=== PATIENT | female | born 1955 | race Caucasian/White ===

== ENCOUNTER 2016-12-28 23:33 | Emergency (ER) | payer OTHER ==
[~2016-12-28] VITALS: Ht 165.1 cm; Wt 63.5 kg
[2016-12-28] MEDS ORDERED: ATORVASTATIN CA40 MG PO (23:56)
[2016-12-28] MEDS ORDERED: OXYBUTYNIN CHLOR5 MG PO (23:56)
[2016-12-28] MEDS ORDERED: PROPRANOLOL HCL80 M1 PO (23:57)
[2016-12-28] MEDS ORDERED: BUPROPION HCL150 MG PO (23:58)
[2016-12-28] MEDS ORDERED: INCRUSE ELLI62.5 MCG INH (23:58)
[2016-12-28] MEDS ORDERED: VENTOLIN HFA18 GM INH (23:59)
[2016-12-28] MEDS ORDERED: ASPIR-LOW81 MG PO (23:59)
--- NOTE | 2016-12-29 22:43 | EKG ---
[facility] [address] [facility] [place] [address] Signed Normal sinus rhythm Normal ECG No previous ECGs available Confirmed by ANDREE VERAS MD ([id number]) on 12/29/2016 10:43:22 PM Electronically Signed By: ANDREE VERAS MD 12/29/16 2243 PATIENT NAME: DANYEL NARANJO Electrocardiogram DATE OF : 51 PHYSICIAN: ANDREE VERAS MD REPORT #: [id number] REPORT IS CONFIDENTIAL AND NOT TO BE RELEASED WITHOUT AUTHORIZATION
== END 2016-12-29 02:59 | disposition home or self-care (01) ==
LOC: ED 23:33
DX: R07.2 Precordial pain (principal); J44.9 Chronic obstructive pulmonary disease, unspecified; F17.200 Nicotine dependence, unspecified, uncomplicated; Z90.49 Acquired absence of other specified parts of digestive tract; Z90.710 Acquired absence of both cervix and uterus; Z79.899 Other long term (current) drug therapy; Z79.82 Long term (current) use of aspirin
CPT/HCPCS: 71010; 80053; 84484; 85025; 93005; 93010; 99284

== ENCOUNTER 2017-01-07 18:00 | Emergency (ER) | payer OTHER ==
[~2017-01-07] VITALS: Ht 165.1 cm; Wt 63.5 kg
[~2017-01-07 18:00] MED LIST: ASPIR-LOW81 MG PO; ATORVASTATIN CA40 MG PO; BUPROPION HCL150 MG PO; INCRUSE ELLI62.5 MCG INH; OXYBUTYNIN CHLOR5 MG PO; PROPRANOLOL HCL80 M1 PO; VENTOLIN HFA18 GM INH
[2017-01-07] MEDS ORDERED: OMEPRAZOLE20 MG PO (21:28)
--- NOTE | 2017-01-07 22:55 | EKG ---
[facility] [address] [facility] [place], [place] [address] Signed Normal sinus rhythm Normal ECG Confirmed by ANDREE VERAS MD ([id number]) on 01/07/2017 10:55:29 PM Electronically Signed By: ANDREE VERAS MD 01/07/17 2255 PATIENT NAME: DANYEL NARANJO Electrocardiogram DATE OF : 51 PHYSICIAN: ANDREE VERAS MD REPORT #: [id number] REPORT IS CONFIDENTIAL AND NOT TO BE RELEASED WITHOUT AUTHORIZATION
== END 2017-01-07 21:43 | disposition home or self-care (01) ==
LOC: ED 18:00
DX: R07.2 Precordial pain (principal); J44.9 Chronic obstructive pulmonary disease, unspecified; F17.200 Nicotine dependence, unspecified, uncomplicated; Z90.49 Acquired absence of other specified parts of digestive tract; Z90.710 Acquired absence of both cervix and uterus; Z88.0 Allergy status to penicillin; Z79.82 Long term (current) use of aspirin; Z79.899 Other long term (current) drug therapy
CPT/HCPCS: 71010; 80053; 84484; 85025; 85379; 93005; 93010; 96374; 96375; 99284; J2270; J2405

== ENCOUNTER 2017-05-07 19:29 | Emergency (ER) | payer OTHER ==
[~2017-05-07 19:29] MED LIST changes: -ASPIR-LOW81 MG PO; +ASPIRIN81 MG PO; +OMEPRAZOLE20 MG PO
[2017-05-07] MEDS ORDERED: OXYBUTYNIN CHLOR5 MG PO (20:02)
[2017-05-07] MEDS ORDERED: LIPITOR40 MG PO (20:03)
[2017-05-07] MEDS ORDERED: PROPRANOLOL HCL80 M1 PO (20:04)
[2017-05-07] MEDS ORDERED: NITROGLYCERIN0.4 MG SL (20:05)
[2017-05-07] MEDS ORDERED: WELLBUTRIN SR150 MG PO (20:06)
[2017-05-07] MEDS ORDERED: TAB-A-VITE1 EACH PO (20:06)
[2017-05-07] MEDS ORDERED: INCRUSE ELLI62.5 MCG (20:07)
--- NOTE | 2017-05-08 14:07 | EKG ---
[facility] [address] [facility] [place], [place] [address] Signed Sinus rhythm with 1st degree AV block Left axis deviation Nonspecific ST and T wave abnormality Abnormal ECG No previous ECGs available Confirmed by ANDREE VERAS MD ([id number]) on 05/08/2017 2:07:27 PM Electronically Signed By: ANDREE VERAS MD 05/08/17 1407 PATIENT NAME: DANYEL NARANJO AURA Electrocardiogram DATE OF : 51 PHYSICIAN: ANDREE VERAS MD REPORT #: [id number] REPORT IS CONFIDENTIAL AND NOT TO BE RELEASED WITHOUT AUTHORIZATION
--- NOTE | 2017-05-08 14:08 | EKG ---
[facility] [address] [facility] [place], [place] [address] Signed Sinus rhythm with 1st degree AV block Possible Left atrial enlargement Left axis deviation Abnormal ECG When compared with ECG of 07-MAY-2017 19:37, (Unconfirmed) No significant change was found Confirmed by ANDREE VERAS MD ([id number]) on 05/08/2017 2:08:45 PM Electronically Signed By: ANDREE VERAS MD 05/08/17 1408 PATIENT NAME: DANYEL NARANJO Electrocardiogram DATE OF : 51 PHYSICIAN: ANDREE VERAS MD REPORT #: [id number] REPORT IS CONFIDENTIAL AND NOT TO BE RELEASED WITHOUT AUTHORIZATION
== END 2017-05-07 23:12 | disposition short-term general hospital (02) ==
LOC: ED 19:29 → EDBD 19:30 → ED 19:30
PROC: 0T9B70Z Drainage of Bladder with Drainage Device, Via Natural or Artificial Opening (ICD-10-PCS; principal; 2017-05-07)
DX: R09.2 Respiratory arrest (principal); R07.9 Chest pain, unspecified; R79.89 Other specified abnormal findings of blood chemistry; J44.9 Chronic obstructive pulmonary disease, unspecified; Z88.0 Allergy status to penicillin; Z88.1 Allergy status to other antibiotic agents; Z88.8 Allergy status to other drugs, medicaments and biological substances; Z79.899 Other long term (current) drug therapy
CPT/HCPCS: 36600; 51702; 70450; 71045; 71260; 80053; 81001; 82803; 83605; 83880; 84484; 85025; 87040; 93005; 93010; 94002; 94644; 96374; 96375; 99291; J2250; J2704; J3010; J7030; Q9967

== ENCOUNTER 2017-07-12 16:08 | Emergency (ER) | payer OTHER ==
[~2017-07-12] VITALS: Ht 157.5 cm; Wt 60.3 kg
[~2017-07-12 16:08] MED LIST changes: +INCRUSE ELLI62.5 MCG; +LIPITOR40 MG PO; +NITROGLYCERIN0.4 MG SL; +TAB-A-VITE1 EACH PO; +WELLBUTRIN SR150 MG PO
--- OUTSIDE RECORDS SUMMARY | 2017-07-12 16:50 | XMS | Encounter Summary ---
Demographics + + + | Address | [address] | | | [place] [address] | + + + | Home Phone | | + + + | Preferred Language | Unknown | + + + | Marital Status | Single | + + + | Spiritism Affiliation | Unknown | + + + | Race | Unknown | + + + | Ethnic Group | Unknown | + + + Author + + + | Author | [facility] | + + + | Organization | [facility] | + + + | Address | Unknown | + + + | Phone | Unavailable | + + + Support + + +---------+ + | Name | Relationship | Address | Phone | + + +---------+ + | Joseluis Desai | ECON | Unknown | | + + +---------+ + Care Team Providers + +------+ + | Care Airport Clerk Name | Role | Phone | + +------+ + | Bry Vaughn DO | PCP | | + +------+ + Reason for Visit +--------+ + | Reason | Comments | +--------+ + | Other | [facility] | +--------+ + Encounter Details +--------+ + + + + | Date | Type | Department | Care Team | Description | +--------+ + + + + | 04/21/ | Documentati | [facility] | [facility] | Other ([facility] | | 2018 | on Only | Cardiology Renny Zamora CMA | Records) | | | | [address] | | | | | | [place] | | | | | | [address] | | | | | | [phone] | | | +--------+ + + + + Social History + +-------+ +--------+------+ | Tobacco Use | Types | Packs/Day | Years | Date | | | | | Used | | + +-------+ +--------+------+ | Former Smoker | | | | | + +-------+ +--------+------+ + +---+---+---+ | Smokeless Tobacco: | | | | | Never Used | | | | + +---+---+---+ + + +---------+ + | Alcohol Use | Drinks/We | oz/Week | Comments | | | ek | | | + + +---------+ + | No | | | past | + + +---------+ + + + + | Sex Assigned at | Date Recorded | | | | + + + | Not on file | | + + + as of this encounter Plan of Treatment Not on fileas of this encounter Visit Diagnoses Not on filein this encounter"
--- OUTSIDE RECORDS SUMMARY | 2017-07-12 16:50 | XMS | Clinical Summary ---
Demographics + + + | Address | [address] | | | [place] [address] | + + + | Home Phone | | + + + | Preferred Language | Unknown | + + + | Marital Status | Single | + + + | Sabianism Affiliation | Unknown | + + + | Race | Unknown | + + + | Ethnic Group | Unknown | + + + Author + + + | Author | [facility] | + + + | Organization | [facility] | + + + | Address | Unknown | + + + | Phone | Unavailable | + + + Support + + +---------+ + | Name | Relationship | Address | Phone | + + +---------+ + | Joseluis Desai | ECON | Unknown | | + + +---------+ + Care Team Providers + +------+ + | Care Catalytic Converter Operator Name | Role | Phone | + +------+ + | Bry Vaughn DO | PP | | + +------+ + Allergies + + + + + + | Active Allergy | Reactions | Severity | Noted | Comments | | | | | Date | | + + + + + + | Amoxicillin | Itching | Medium | 04/19/19 | | | | | | 18 | | + + + + + + | Cephalexin | Itching | Medium | 04/19/19 | | | | | | 18 | | + + + + + + | Hydroxyzine Hcl | Itching | Medium | 04/19/19 | | | | | | 18 | | + + + + + + | Penicillins | Itching | Medium | 04/19/19 | | | | | | 18 | | + + + + + + | Ranitidine | Itching | Medium | 04/19/19 | | | | | | 18 | | + + + + + + Current Medications + + +-------+---------+------+------+-------+ | Prescription | Sig. | Disp. | Refills | Star | End | Statu | | | | | | t | Date | s | | | | | | Date | | | + + +-------+---------+------+------+-------+ | propranolol | Take 80 mg by mouth | | | | | Activ | | (INDERAL) 80 MG | daily. | | | | | e | | tablet | | | | | | | + + +-------+---------+------+------+-------+ | Multiple | Take 1 tablet by | | | | | Activ | | Vitamins-Minerals | mouth daily. | | | | | e | | (MULTIVITAMIN WITH | | | | | | | | MINERALS) tablet | | | | | | | + + +-------+---------+------+------+-------+ | nitroGLYCERIN | Place 0.4 mg under | | | | | Activ | | (NITROSTAT) 0.4 MG | the tongue every 5 | | | | | e | | SL tablet | (five) minutes as | | | | | | | | needed for Chest | | | | | | | | pain. | | | | | | + + +-------+---------+------+------+-------+ | albuterol | Inhale 2 puffs into | | | | | Activ | | (PROVENTIL | the lungs every 4 | | | | | e | | HFA;VENTOLIN HFA) | (four) hours as | | | | | | | 108 (90 Base) | needed for Wheezing. | | | | | | | MCG/ACT inhaler | | | | | | | + + +-------+---------+------+------+-------+ | Umeclidinium | Inhale into the | | | | | Activ | | [place] (INCRUSE | lungs. | | | | | e | | ELLIPTA IN) | | | | | | | + + +-------+---------+------+------+-------+ | buPROPion (ZYBAN) | Take 150 mg by mouth | | | | | Activ | | 150 MG 12 hr tablet | 2 (two) times | | | | | e | | | daily. | | | | | | + + +-------+---------+------+------+-------+ | atorvastatin | Take 40 mg by mouth | | | | | Activ | | (LIPITOR) 40 MG | nightly. | | | | | e | | tablet | | | | | | | + + +-------+---------+------+------+-------+ | oxybutynin | Take 5 mg by mouth 2 | | | | | Activ | | (DITROPAN) 5 MG | (two) times daily. | | | | | e | | tablet | | | | | | | + + +-------+---------+------+------+-------+ | omeprazole | Take 20 mg by mouth | | | | | Activ | | (PRILOSEC) 20 MG | every morning before | | | | | e | | capsule | breakfast. | | | | | | + + +-------+---------+------+------+-------+ Active Problems + + + | Problem | Noted Date | + + + | Precordial pain | 04/19/2017 | + + + | Major depressive disorder, recurrent episode, moderate with | 06/19/2015 | | anxious distress (HCC) | | + + + + + | Overview: Last Assessment & Plan: | | Improved with wellbutrin. Refill sent to pharmacy. | + + + + + | COPD (chronic obstructive pulmonary disease) ([facility]) | 10/22/2013 | + + + + + | Overview: Last Assessment & Plan: SpO2 95% RA. Lungs tight | | and wheezy. Taking advair and albuterol as prescribed. No changes | | today. Return to clinic PRN. | + + Resolved Problems +---------+ + + | Problem | Noted | Resolved | | | Date | Date | +---------+ + + | Smoker | 03/01/20 | | | | 13 | 8 | +---------+ + + + + | Overview: Last Assessment & Plan: Patient quit smoking; | | motivated to continue to be tobacco free. Decreased cravings with | | wellbutrin; refill sent to pharmacy. Patient declines nicotine | | patch, gum at this time. | + + Encounters +--------+ + + + + | Date | Type | Specialty | Care Team | Description | +--------+ + + + + | 04/21/ | Documentati | | [facility] | Other ([facility] | | 2018 | on Only | | [facility] | Records) | +--------+ + + + + | 04/19/ | Initial | | Aaron Zimmerman, | Precordial pain | | 2018 | consult | | MD | | +--------+ + + + + from Last 3 Months Family History + + +------+ + | Medical History | Relation | Name | Comments | + + +------+ + | Cancer | Mother | | | + + +------+ + + +------+ + + | Relation | Name | Status | Comments | + +------+ + + | Father | | | | | | | (Age | | | | | 52) | | + +------+ + + | Mother | | | uterine cancer | | | | (Age | | | | | 87) | | + +------+ + + Social History + +-------+ +--------+------+ [...] on file | | + + + Last Filed Vital Signs + + + + | Vital Sign | Reading | Time Taken | + + + + | Blood Pressure | 126/74 | 04/19/2017 1:33 PM PST | + + + + | Pulse | 65 | 04/19/2017 1:33 PM PST | + + + + | Temperature | - | - | + + + + | Respiratory Rate | - | - | + + + + | Oxygen Saturation | 98% | 04/19/2017 1:33 PM PST | + + + + | Inhaled Oxygen | - | - | | Concentration | | | + + + + | Weight | 63.8 kg (140 lb 9.6 | 04/19/2017 1:33 PM PST | | | oz) | | + + + + | Height | 165.1 cm (5' 5") | 04/19/2017 1:33 PM PST | + + + + | Body Mass Index | 23.4 | 04/19/2017 1:33 PM PST | + + + + Plan of Treatment + + + + + | Health Maintenance | Due Date | Last Done | Comments | + + + + + | Cervical Cancer | | | | | Screening (Pap) | 5 | | | + + + + + | Breast Cancer | | | | | Screening | 4 | | | | (Mammogram) | | | | + + + + + | Colon Cancer | | | | | Screening | 4 | | | | (Colonoscopy) | | | | + + + + + | Vaccine: Influenza | | 11/19/2015, 10/30/2014 | | | (Season Ended) | 8 | | | + + + + + | Vaccine: | | 07/12/2016 | | | Dtap/Tdap/Td (2 - | 7 | | | | Td) | | | | + + + + + | Vaccine: | Completed | 12/26/2013 | | | Pneumococcal 19-64 | | | | | (PPSV23 only) Medium | | | | | Risk | | | | + + + + + Results Not on filefrom Last 3 Months Insurance + +--------+ +------+-------+ + | Payer | Benefi | Subscriber | Type | Phone | Address | | | t Plan | ID | | | | | | / | | | | | | | Group | | | | | + +--------+ +------+-------+ + | MEDICAID | [employer] | xxxxxxxx | | | [address] | | | N | | | | [place] | | | [place] | | | | [phone] | | | [employer] | | | | | + +--------+ +------+-------+ + + +--------+ +--------+ + + | Guarantor Name | Accoun | Relation to | Date | Phone | Billing Address | | | t Type | Patient | of | | | | | | | | | | + +--------+ +--------+ + + | AMY NARANJO I | Person | Self [birth year] | Home: | [address] | | | al/Fam | | [phone] | [phone] [place] | | | [place] | | | [phone] | [phone] | + +--------+ +--------+ + +
--- OUTSIDE RECORDS SUMMARY | 2017-07-12 16:50 | XMS | Encounter Summary ---
Demographics + + + | Address | [address] | | | [place] [address] | + + + | Home Phone | | + + + | Preferred Language | Unknown | + + + | Marital Status | Single | + + + | Mormonism Affiliation | Unknown | + + + | Race | Unknown | + + + | Ethnic Group | Unknown | + + + Author + + + | Author | [facility] | + + + | Organization | [facility] | + + + | Address | Unknown | + + + | Phone | Unavailable | + + + Support + + +---------+ + | Name | Relationship | Address | Phone | + + +---------+ + | Joseluis Desai | ECON | Unknown | | + + +---------+ + Care Team Providers + +------+ + | Care Ice House Supervisor Name | Role | Phone | + +------+ + | Bry Vaughn DO | PCP | | + +------+ + Reason for Visit + + + | Reason | Comments | + + + | Establish Care | Chest Pain | + + + Consultation (Routine) + +--------+ + + + + | Status | Reason | Specialty | Diagnoses / | Referred By | Referred To | | | | | Procedures | Contact | Contact | + +--------+ + + + + | Authorized | | Cardiology | Diagnoses | Roderick, | Elsie, | | | | | Precordial | DO Bry | MD Aaron | | | | | pain | [address] | [address] | | | | | Procedures | [address] | Dr Ordonez | | | | | Consult | [address] | [place], [place] | | | | | | [place], | [address] Phone: | | | | | | [place] [address] | [phone] | | | | | | Phone: | Fax: | | | | | | [phone] | [phone] | | | | | | Fax: | | | | | | | [phone] | | + +--------+ + + + + Encounter Details +--------+ + + + + | Date | Type | Department | Care Team | Description | +--------+ + + + + | 04/19/ | Initial | [facility] | Alsamara, Mershed, | Precordial pain | | 2018 | consult | Cardiology [place] | MD Katelyn Mercedes | | | | | [address] | [address], | | | | | [address] | [place] [address] | | | | | [place] [address] | [phone] | | | | | [phone] | | | +--------+ + + + [...] + + + as of this encounter Last Filed Vital Signs + + + [...] PM PST | + + + + in this encounter Progress Notes Aaron Brito MD - 04/19/2017 1:30 PM PSTFormatting of this note may be different fro m the original. [facility] Service: Cardiology Initial Consult Note Name of Barrel Roller: Aaron Brito MD Reason for Consultation: Chest Pain. Requesting Physician: [facility] History Obtained From: patient CHIEF COMPLAINT: Chest Pain HISTORY OF PRESENT ILLNESS: Patient is 61 year old female who was evaluated for chest pain twice [place] like a pressure was retrosternal/epigastric. Lasted for few minutes. Happened twice, no radiation, no nausea or vomiting. No diaphoresis and no shortness of reema ath at that time. Patient was evaluated in ER, ECG and cardiac enzymes didn't show acute injury. EKG stress test was performed however patient was on propanolol which was not stopped. Did 3 minutes and 52 seconds and could not achieve maximal age-predicted heart rate, there was no ischemic EKG changes. Patient has history of tremors status why she takes propanolol, has history of COPD due to previous and remote history of smoking. Since prior evaluation denies any recurrent episodes of chest pain. Been taking omeprazole and symptoms resolved. REVIEW OF SYSTEMS Constitutional: Negative for fatigue, no fever or chills. HENT: Negative for nosebleeds, no runny nose or sneezing. Eyes: Negative for visual disturbance, no double vision, tearing or itching. Respiratory: Cough and shortness of breath. Cardiovascular: As HPI. Gastrointestinal: Negative for nausea, vomiting, abdominal pain and blood in stool. Genitourinary: Negative for hematuria, no dysuria. Musculoskeletal: Arthritic and join pain. Skin: Negative for color change, no rash. Neurological: Negative for dizziness, syncope and numbness. Hematological: Does not bruise/bleed easily. Psychiatric/Behavioral: The patient is not nervous/anxious. PAST MEDICAL & SURGICAL HISTORY Past Medical History Diagnosis Date Chronic obstructive pulmonary disease (HCC) Hyperlipidemia Past Surgical History Procedure Laterality Date APPENDECTOMY COLONOSCOPY HYSTERECTOMY MEDICATIONS Home Medications Current Outpatient Prescriptions: albuterol (PROVENTIL HFA;VENTOLIN HFA) 108 (90 Base) MCG/ACT inhaler, Inhale 2 puffs i nto the lungs every 4 (four) hours as needed for Wheezing., Disp: , Rfl: atorvastatin (LIPITOR) 40 MG tablet, Take 40 mg by mouth nightly., Disp: , Rfl: buPROPion (ZYBAN) 150 MG 12 hr tablet, Take 150 mg by mouth 2 (two) times daily., Disp : , Rfl: Multiple Vitamins-Minerals (MULTIVITAMIN WITH MINERALS) tablet, Take 1 tablet by mouth daily., Disp: , Rfl: nitroGLYCERIN (NITROSTAT) 0.4 MG SL tablet, Place 0.4 mg under the tongue every 5 (fiv e) minutes as needed for Chest pain., Disp: , Rfl: omeprazole (PRILOSEC) 20 MG capsule, Take 20 mg by mouth every morning before breakfas t., Disp: , Rfl: oxybutynin (DITROPAN) 5 MG tablet, Take 5 mg by mouth 2 (two) times daily., Disp: , Rf l: propranolol (INDERAL) 80 MG tablet, Take 80 mg by mouth daily., Disp: , Rfl: Umeclidinium [place] (INCRUSE ELLIPTA IN), Inhale into the lungs., Disp: , Rfl: Allergies Allergies Allergen Reactions Amoxicillin Itching Cephalexin Itching Hydroxyzine Hcl Itching Penicillins Itching Ranitidine Itching FAMILY HISTORY Family History Problem Relation Age of Onset Cancer Mother SOCIAL HISTORY Social History Social History Marital status: Single Spouse name: N/A Number of children: N/A Years of education: N/A Occupational History Not on file. Social History Main Topics Smoking status: Former Smoker Smokeless tobacco: Never Used Alcohol use No Comment: past Drug use: Yes Types: Marijuana Sexual activity: Not on file Other Topics Concern Not on file Social History Narrative No narrative on file PHYSICAL EXAM Vital Signs: BP 126/74 (BP Location: Left upper arm, Patient Position: Sitting) | Pulse 65 | Ht 1.651 m (5' 5") | Wt 63.8 kg (140 lb 9.6 oz) | SpO2 98% | BMI 23.40 kg/m Constitutional: Well-developed. Neck: No JVD present. No thyromegaly present. Cardiovascular: Regular rhythm, S1 normal and S2 normal. No murmur heard. Pulses: Carotid pulses are 2+ on the right side, and 2+ on the left side. Radial pulses are 2+ on the right side, and 2+ on the left side. Pulmonary/Chest: Effort normal minimal wheezing bilaterally. Abdominal: Soft. No tenderness. Musculoskeletal: No edema. Neurological: Alert. No cranial nerve deficit. Skin: Warm and dry. DATA 12/28/16 WBC 11.2, hemoglobin 14.4, platelets 327, sodium 137, potassium 3.6, chloride 97, bicarbona te 29, creatinine 0.7, BUN 11. AST 18, AST 18, alk phos 58. No results found for: NA, K, CL, CO2, BUN, CREATININE, GLUCOSE, CALCIUM No results found for: CKTOTAL, CKMB, CKMBINDEX, TROPONINI No results found for: WBC, HGB, HCT, MCV, PLT No results found for: CHOL, TRIG, LDL, LDL, GLUF, HGBA1C, TSH EK07/01/2017 From [facility] showed normal ECG. Last Echo: Last stress test: 01/12/2017 Juan José 3:52 sec, submaximal 77% of MAPHR. No ischemia at this level of exercise. Last cath: Carotid US: AAA screening: Lower extremity US: OTHERS: ASSESSMENT & PLAN Patient is 61-year-old female with the following medical problems 1. Chest pain, atypical. No recurrent symptoms since ER evaluation in December. 2. Essential tremors on propanolol. 3. Chronic obstructive pulmonary disease. No excessive relation at this time. 4. Dyslipidemia. Recommendations: Patient did not have any recurrent symptoms since December 2016. Unfortunately could not achieve her maximum age-predicted heart rate and stress test had to be stopped due to dyspnea, patient has again obstructive lung disease. Also patient takes p ropanolol that was not stopped prior to the stress test. At this time since patient did not have any recurrent symptoms, no further testing is indic ated. After the patient to call the clinic with any episodes of chest pain. Thank you for allowing me to participate in the care of this patient. Primary Care Physician: BRY Brito MD 04/19/2017in this encounter Plan of Treatment Not on fileas of this encounter Visit Diagnoses + + | Diagnosis | + + | Precordial pain | + +
--- OUTSIDE RECORDS SUMMARY | 2017-07-12 16:51 | XMS | Clinical Summary ---
Demographics + + + | Address | [address] | | | [place] [address] | + + + | Home Phone | | + + + | Preferred Language | Unknown | + + + | Marital Status | | + + + | Confucianist Affiliation | 1028 | + + + | Race | Unknown | + + + | Ethnic Group | Unknown | + + + Author + + + | Author | [facility] | | | and [place] | + + + | Organization | [facility] | | | and [place] | + + + | Address | Unknown | + + + | Phone | Unavailable | + + + Support + + +---------+ + | Name | Relationship | Address | Phone | + + +---------+ + | Mila Desai | ECON | Unknown | | + + +---------+ + | Joseluis Desai | PRERNA | Unknown | | + + +---------+ + Care Team Providers + +------+ + | Care Motor Builder Assembler Name | Role | Phone | + +------+ + | Bry Vaughn DO | PP | | + +------+ + Allergies + + + + + + | Active Allergy | Reactions | Severity | Noted | Comments | | | | | Date | | + + + + + + | Amoxicillin | | | 05/08/19 | | | | | | 18 | | + + + + + + | Cephalexin | | | 05/08/19 | | | | | | 18 | | + + + + + + | Hydroxyzine Hcl | | | 05/08/19 | | | | | | 18 | | + + + + + + | Penicillins | | | 05/08/19 | | | | | | 18 | | + + + + + + | Ranitidine Hcl | | | 05/08/19 | | | | | | 18 | | + + + + + + Current Medications + + + +---------+------+------+-------+ | Prescription | Sig. | Disp. | Refills | Star | End | Statu | | | | | | t | Date | s | | | | | | Date | | | + + + +---------+------+------+-------+ | propranolol | Take 80 mg by mouth | | | | | Activ | | (INDERAL) 80 mg | Daily. For tremors | | | | | e | | tablet | | | | | | | + + + +---------+------+------+-------+ | buPROPion | Take 150 mg by mouth | | | | | Activ | | (WELLBUTRIN SR) 150 | 2 times daily. | | | | | e | | mg 12 hr tablet | | | | | | | + + + +---------+------+------+-------+ | nitroglycerin | Place 0.4 mg under | | | | | Activ | | (NITROSTAT) 0.4 mg | the tongue every 5 | | | | | e | | SL tablet | minutes as needed | | | | | | | | for Chest pain. | | | | | | + + + +---------+------+------+-------+ | atorvaSTATin | Take 40 mg by mouth | | | | | Activ | | (LIPITOR) 40 mg | nightly. | | | | | e | | tablet | | | | | | | + + + +---------+------+------+-------+ | oxybutynin | Take 5 mg by mouth 2 | | | | | Activ | | (DITROPAN) 5 mg | times daily. | | | | | e | | tablet | | | | | | | + + + +---------+------+------+-------+ | umeclidinium | Inhale 1 puff into | | | | | Activ | | (INCRUSE ELLIPTA) | the lungs Daily. | | | | | e | | 62.5 mcg/puff | | | | | | | | inhaler | | | | | | | + + + +---------+------+------+-------+ | albuterol | Inhale 2 puffs into | | | | | Activ | | (VENTOLIN HFA) 90 | the lungs every 4 | | | | | e | | mcg/puff inhaler | hours as needed. | | | | | | + + + +---------+------+------+-------+ | Multiple | Take 1 tablet by | | | | | Activ | | Vitamins-Minerals | mouth Daily. | | | | | e | | (SENIOR MULTIVITAMIN | | | | | | | | PLUS) TABS | | | | | | | + + + +---------+------+------+-------+ | | Place 1 drop into | | | | | Activ | | carboxymethylcellulo | both eyes every hour | | | | | e | | se (THERATEARS) | as needed for Dry | | | | | | | 0.25% ophthalmic | Eyes. | | | | | | | solution | | | | | | | + + + +---------+------+------+-------+ | | Take 3 mLs by | 360 mL | 0 | 02/2 | | Activ | | albuterol-ipratropiu | nebulization every 6 | | | 8/20 | | e | | m (DUONEB) 2.5-0.5 | hours. Dx: | | | 18 | | | | mg/3 mL SOLN | COPDAcute hypoxic | | | | | | | | respiratory failure | | | | | | + + + +---------+------+------+-------+ | aspirin 81 mg | Take 1 tablet by | 30 | 0 | 02/2 | | Activ | | chewable tablet | mouth Daily. | tablet | | 8/20 | | e | | | | | | 18 | | | + + + +---------+------+------+-------+ | lisinopril | Take 1 tablet by | 30 | 0 | 02/2 | | Activ | | (PRINIVIL, ZESTRIL) | mouth Daily. | tablet | | 8/20 | | e | | 10 mg tablet | | | | 18 | | | + + + +---------+------+------+-------+ | pantoprazole | Take 1 tablet by | 30 | 0 | 03/0 | | Activ | | (PROTONIX) 40 mg | mouth every morning | tablet | | 1/20 | | e | | tablet | (before breakfast). | | | 18 | | | + + + +---------+------+------+-------+ | predniSONE | Take 40 mg (2 tabs) | 15 | 0 | 02/2 | | Activ | | (DELTASONE) 20 mg | by mouth daily for 3 | tablet | | 8/20 | | e | | tablet | days, then Take 30 | | | 18 | | | | | mg (1.5 tabs) by | | | | | | | | mouth daily for 3 | | | | | | | | days, then Take 20 | | | | | | | | mg (1 tab) by mouth | | | | | | | | daily for 3 days, | | | | | | | | then Take 10 mg (0.5 | | | | | | | | tab) by mouth daily | | | | | | | | for 3 days, then | | | | | | | | stop | | | | | | + + + +---------+------+------+-------+ Active Problems + + + | Problem | Noted Date | + + + | Respiratory failure with hypoxia and hypercapnia (HCC) | 05/08/2017 | + + + | COPD (chronic obstructive pulmonary disease) (HCC) | 05/08/2017 | + + + Encounters +--------+ + + + + | Date | Type | Specialty | Care Team | Description | +--------+ + + + + | 05/12/ | Telephone | | Dewey Harris, | Hospital Follow-up | | 2017 | | | PharmD | | +--------+ + + + + | 05/09/ | Procedure | | | | | 2017 | Pass | | | | +--------+ + + + + | 05/09/ | Surgery | | Johnny Johnson MD | CV LHC | | 2017 | | | | | +--------+ + + + + | 05/08/ | Hospital | | Orlando Wall MD | Chronic obstructive | | 2017 - | Encounter | | Marcio Boone, | pulmonary disease, | | | | | MD Narcisa | unspecified COPD | | 05/11/ | | | | type ([facility]); Acute on | | 2017 | | | | chronic respiratory | | | | | | failure with | | | | | | hypoxia and | | | | | | hypercapnia ([facility]); | | | | | | NSTEMI (non-ST | | | | | | elevated myocardial | | | | | | infarction) ([facility]); | | | | | | Non-ST elevation | | | | | | myocardial | | | | | | infarction (NSTEMI), | | | | | | type 2 ([facility]) | +--------+ + + + + +---+ + | | Discharge | | | Summaries | | | - Marcio | | | Paolo, | | | MD Narcisa | | | - | | | 05/11/2017 | | | 0741 PST | | | Formatting | | | of this | | | note may be | | | different | | | from the | | | original.[facility] | [facility] [address] [facility] | | | [facility] [place] | [facility] | | | DISCHARGE | | | SUMMARYPt. | | | Name/Age/DO | | | B: Amy | | | I Jared | | | 61 y.o. | | | 1955 | | | | | | Medical | | | Record | | | Number: | | | | | | [id number] | | | Date of | | | Admission: | | | | | | 05/08/2017 | | | Date | | | of | | | Discharge: | | | | | | 05/11/2017Ad | | | mitting | | | Physician: | | | Orlando | | | MD Nicole | | | | | | Primary | | | Care | | | Provider: | | | Bry | | | Kargar, | | | DODischargi | | | ng | | | Physician: | | | Narcisa | | | Buckley | | | Paolo, | | | MD | | | DISCHARGE | | | DIAGNOSES: | | | Active | | | Hospital | | | Problems | | | Diagnosis | | | | | | | | | Respiratory | | | failure | | | with | | | hypoxia and | | | | | | hypercapnia | | | | | | COPD | | | (chronic | | | obstructive | | | pulmonary | | | disease) | | | Resolved | | | Hospital | | | Problems | | | Diagnosis | | | No resolved | | | problems | | | to display. | | | 1. Acute | | | hypercarbic | | | hypoxic | | | respiratory | | | failure | | | due to COPD | | | | | | exacerbatio | | | n2. NSTEMI | | | type 2 | | | DISCHARGE | | | MEDICATIONS | | | : | | | Discharge | | | Medications | | | New | | | Medications | | | Details | | | | | | albuterol-i | | | pratropium | | | 2.5-0.5 | | | mg/3 mL | | | Soln Take 3 | | | mLs by | | | nebulizatio | | | n every 6 | | | hours. Dx: | | | COPD Acute | | | hypoxic | | | respiratory | | | | | | failureaka: | | | DUONEB | | | aspirin 81 | | | mg chewable | | | tablet | | | Take 1 | | | tablet by | | | mouth | | | Daily. | | | lisinopril | | | 10 mg | | | tablet Take | | | 1 tablet | | | by mouth | | | Daily.aka: | | | PRINIVIL, | | | ZESTRIL | | | nicotine 21 | | | mg/24 hr | | | Place 1 | | | patch onto | | | the skin | | | Daily as | | | needed for | | | Nicotine | | | Craving.aka | | | : NICODERM | | | | | | pantoprazol | | | e 40 mg | | | tablet Take | | | 1 tablet | | | by mouth | | | every | | | morning | | | (before | | | breakfast). | | | aka: | | | PROTONIXSta | | | rt: | | | 05/12/2017 | | | predniSONE | | | 20 mg | | | tablet Take | | | 40 mg (2 | | | tabs) by | | | mouth daily | | | for 3 | | | days, then | | | Take 30 mg | | | (1.5 tabs) | | | by mouth | | | daily for 3 | | | days, then | | | Take 20 mg | | | (1 tab) by | | | mouth | | | daily for 3 | | | days, then | | | Take 10 mg | | | (0.5 tab) | | | by mouth | | | daily for 3 | | | days, then | | | stopaka: | | | DELTASONE | | | Unchanged | | | Medications | | | Details | | | | | | atorvaSTATi | | | n 40 mg | | | tablet Take | | | 40 mg by | | | mouth | | | nightly.aka | | | : LIPITOR | | | buPROPion | | | 150 mg 12 | | | hr tablet | | | Take 150 mg | | | by mouth 2 | | | times | | | daily.aka: | | | WELLBUTRIN | | | SR INCRUSE | | | ELLIPTA | | | 62.5 | | | mcg/puff | | | inhalerGene | | | sybil drug: | | | umeclidiniu | | | m Inhale 1 | | | puff into | | | the lungs | | | Daily. | | | nitroglycer | | | in 0.4 mg | | | SL tablet | | | Place 0.4 | | | mg under | | | the tongue | | | every 5 | | | minutes as | | | needed for | | | Chest | | | pain.aka: | | | NITROSTAT | | | oxybutynin | | | 5 mg tablet | | | Take 5 mg | | | by mouth 2 | | | times | | | daily.aka: | | | DITROPAN | | | propranolol | | | 80 mg | | | tablet Take | | | 80 mg by | | | mouth | | | Daily. For | | | tremorsaka: | | | INDERAL | | | SENIOR | | | MULTIVITAMI | | | N PLUS Tabs | | | Take 1 | | | tablet by | | | mouth | | | Daily. | | | THERATEARS | | | 0.25% | | | ophthalmic | | | solutionGen | | | tisha drug: | | | | | | carboxymeth | | | ylcellulose | | | Place 1 | | | drop into | | | both eyes | | | every hour | | | as needed | | | for Dry | | | Eyes. | | | VENTOLIN | | | HFA 90 | | | mcg/puff | | | inhalerGene | | | sybil drug: | | | albuterol | | | Inhale 2 | | | puffs into | | | the lungs | | | every 4 | | | hours as | | | needed. | | | Discontinue | | | d | | | Medications | | | ibuprofen | | | 200 mg | | | tabletaka: | | | [facility], | | | [facility] | | | HOSPITAL | | | COURSE: | | | Please | | | refer to | | | the H&P for | | | full | | | details and | | | the most | | | recent | | | rounding | | | rounding | | | (progress) | | | note.In | | | short this | | | is a | | | 61-year-old | | | woman with | | | past | | | medical | | | history of | | | COPD, | | | hyperlipide | | | yamileth, who | | | presented | | | to the | | | emergency | | | department | | | intubated, | | | after she | | | was noted | | | to have | | | respiratory | | | distress | | | and failure | | | at home. | | | Initial | | | history was | | | given by | | | daughter, | | | who | | | reported | | | that | | | patient has | | | been | | | having some | | | chest and | | | epigastric | | | pain, she | | | was going | | | upstairs to | | | get some | | | antacids, | | | however, | | | upon | | | arriving to | | | the top of | | | the stairs | | | she got | | | increasingl | | | y more | | | dyspneic, | | | to the | | | point that | | | she could | | | body told. | | | Per | | | daughter | | | patient was | | | turning | | | blue. She | | | call 911, | | | patient | | | became | | | unresponsiv | | | e, in she | | | was | | | intubated | | | on the | | | field. | | | Initial | | | evaluation | | | in the | | | emergency | | | department | | | did not | | | reveal | | | pulmonary | | | embolism or | | | pneumonia, | | | she was | | | found to | | | have | | | hypoxia and | | | | | | hypercarbia | | | . She was | | | restarted | | | on | | | medications | | | for | | | management | | | of COPD | | | exacerbatio | | | n with | | | Solu-Medrol | | | , duo nebs, | | | and | | | azithromyci | | | n. | | | Additionall | | | y troponins | | | were | | | cycled, | | | initial was | | | found to | | | be | | | elevated, | | | so she was | | | started on | | | heparin | | | drip, and | | | cardiology | | | was | | | consulted. | | | In the | | | initial 16 | | | hours, | | | spontaneous | | | breathing | | | trial was | | | attempted, | | | patient did | | | well in | | | she was | | | successfull | | | y | | | extubated. | | | Echo | | | showed a | | | kidney cyst | | | of the mid | | | to distal | | | anterior | | | septum and | | | severe | | | hypokinesis | | | of the | | | anterior | | | and | | | anterior | | | apical | | | segment | | | with an | | | overall | | | ejection | | | fraction of | | | 40%. | | | Patient was | | | taken for | | | coronary | | | angiography | | | , | | | non-occlusi | | | ve CAD, and | | | | | | recommended | | | to | | | continue | | | medical | | | management. | | | Patient | | | continued | | | to improve | | | daily, she | | | was weaned | | | off the | | | steroids | | | and | | | transitione | | | d to oral. | | | She was | | | started on | | | lisinopril | | | 10 mg | | | daily, | | | continue on | | | aspirin 81 | | | mg daily. | | | She was | | | continued | | | on his | | | statin, as | | | well as | | | propranolol | | | .On day of | | | discharge | | | she is | | | feeling | | | well. | | | Physical | | | exam and | | | laboratory | | | data are | | | benign. | | | She is | | | recommended | | | to | | | continue | | | follow-up | | | with her | | | primary | | | physician | | | in 3-5 | | | days, as | | | well as to | | | continue | | | cardiology | | | follow-up | | | as an | | | outpatient. | | | | | | Prescriptio | | | ns were | | | given to | | | patient.Mos | | | t recent | | | weight: | | | Input and | | | output for | | | last 24hrs: | | | Wt | | | Readings | | | from Last 1 | | | | | | Encounters: | | | // | | | 61.4 kg | | | (135 lb 5.8 | | | oz) I/O | | | last 24 | | | Hours:In: | | | 2736 | | | [P.O.:1030; | | | I.V.:1446; | | | IV | | | Piggyback:2 | | | 60]Out: | | | 2875 | | | [Urine:2875 | | | ] Vitals | | | Ranges:Temp | | | : [35.9 | | | C (96.6 | | | F)-37.1 | | | C (98.8 | | | F)] 36.3 | | | C (97.3 | | | F)Pulse: | | | [70-103] | | | 72Resp: | | | [16-20] | | | 16BP: | | | (130-146)/( | | | 72-93) | | | 131/72Vital | | | s:Temp: | | | 36.3 C | | | (97.3 F) | | | BP: | | | 131/72 | | | Pulse: | | | 72 | | | Resp: 16 | | | SpO2: 95 | | | %SpO2 95 % | | | on room air | | | at flow | | | rate | | | 1L/minPHYSI | | | EVAN EXAM: | | | Patient | | | seen and | | | examined by | | | me on | | | discharge | | | day | | | PROCEDURES | | | AND | | | CONSULTS: | | | Procedures | | | LHCCORONARY | | | | | | ANGIOGRAPHY | | | DOMINANCE: | | | Right LEFT | | | MAIN | | | ARTERY: | | | Medium | | | caliber | | | vessel | | | arising | | | from left | | | coronary | | | cusp, mild | | | luminal | | | irregularit | | | y LEFT | | | ANTERIOR | | | DESCENDING | | | ARTERY: | | | Medium | | | caliber | | | vessel | | | extending | | | to the | | | apex, | | | distal and | | | apical | | | segment | | | have mild | | | luminal | | | narrowing, | | | first and | | | second | | | diagonal | | | branches | | | are small | | | in caliber, | | | third | | | diagonal | | | branch is | | | medium | | | caliber | | | with mild | | | luminal | | | irregularit | | | y, apical | | | segment is | | | moderately | | | tortuous | | | and small | | | in | | | caliber CI | | | RCUMFLEX | | | ARTERY: | | | Medium | | | caliber | | | vessel | | | which gives | | | rise to | | | first major | | | obtuse | | | marginal | | | branch, | | | eccentric | | | 50% | | | proximal | | | stenosis, | | | mild | | | luminal | | | irregularit | | | y | | | distally R | | | IGHT | | | CORONARY | | | ARTERY: | | | Medium | | | caliber | | | vessel | | | arising | | | from right | | | coronary | | | cusp, | | | dominant, | | | minimal | | | luminal | | | irregularit | | | y, | | | posterior | | | descending | | | artery is | | | moderately | | | tortuous in | | | its distal | | | segment, | | | single | | | posterior | | | lateral | | | branch with | | | mild | | | luminal | | | irregularit | | | y CONTRAST | | | LEFT | | | VENTRICULOG | | | ADONIS: Not | | | performed | | | CONCLUSIONS | | | : 1. | | | Elevated | | | left | | | ventricular | | | | | | end-diastol | | | ic | | | pressure2. | | | Mild to | | | moderate | | | proximal | | | left | | | circumflex | | | stenosis3. 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 | | | Specialty: | | | Internal | | | [facility] | | | tact | | | information | | | :[address] | [address] | | | [place] | | | [address] | | | [place] | | | [phone] | | | [phone] | | | Demarcus E. | | | Harri, MD | | | In 3 weeks. | | | | | | Specialty: | | | | | | Gastroenter | | | [facility] | | | t | | | information | | | :[address] | | | [place], [place] | | | [address] | | | [place] | | | [phone] | | [phone] | | Condition: | | | Patient | | | being | | | discharged | | | with | | | condition | | | improvedDie | | | t: low salt | | | low | | | fatGreater | | | than 30 | | | minutes | | | were spent | | | on | | | discharge | | | and | | | coordinatio | | | n of | | | post-hospit | | | al | | | care.Electr | | | onically | | | signed by: | | | Narcisa | | | Buckley | | | Paolo, | | | MD, | | | 05/11/2017 | | | 7:41 | | | [employer] | | | [facility] | | | [facility] | | | [facility] | | | ons of this | | | chart may | | | have been | | | created | | | with Dragon | | | voice | | | recognition | | | software. | | | Occasional | | | wrong-word | | | or | | | | | | sound-alike | | | | | | | | | substitutio | | | ns may have | | | occurred | | | due to the | | | inherent | | | limitations | | | of voice | | | recognition | | | software. | | | Please read | | | the chart | | | carefully | | | and | | | recognize, | | | using | | | context, | | | where these | | | | | | substitutio | | | ns have | | | occurred | +---+ + from Last 3 Months Immunizations + + + + | Name | Dates Previously Given | Next Due | + + + + | INFLUENZA PF | 11/19/2015, 10/30/2014 | | | QUAD(PED/ADOL/ADULT) | | | | ,PSKT or VIAL | | | + + + + | INFLUENZA, | 12/12/2013 | | | W/Preservative | | | + + + + | PNEUMOCOCCAL | 12/26/2013 | | | POLYSACCHARIDE | | | | 23-VALENT (PPSV23) | | | + + + + | TDAP, (ADOL/ADULT) | 07/12/2016 | | + + + + | ZOSTER, 1 DOSE | 07/12/2016 | | | (ADULT) | | | + + + + Social History + +-------+ +--------+ + | Tobacco Use | Types | Packs/Day | Years | Date | | | | | Used | | + +-------+ +--------+ + | Current Every Day | | 1 | | Started: 05/08/1966 | | Smoker | | | | | + +-------+ +--------+ + + +---+---+---+ | Smokeless Tobacco: | | | | | Never Used | | | | + +---+---+---+ + + | Tobacco Cessation: Ready to Quit: No; Counseling Given: No | | Comments: Has cut down on sloking | + + + + +---------+ + | Alcohol Use | Drinks/We | oz/Week | Comments | | | ek | | | + + +---------+ + | Yes | | | Recovering alcoholic, would consume a box | | | | | of wine in 2 days | + + +---------+ + + + + | Sex Assigned at | Date Recorded | | | | + + + | Not on file | | + + + Last Filed Vital Signs + + + + | Vital Sign | Reading | Time Taken | + + + + | Blood Pressure | 122/62 | 05/11/20171520 PST | + + + + | Pulse | 69 | 05/11/20171520 PST | + + + + | Temperature | 36.6 C (97.9 F) | 05/11/20171520 PST | + + + + | Respiratory Rate | 18 | 05/11/20171520 PST | + + + + | Oxygen Saturation | 97% | 05/11/20171520 PST | + + + + | Inhaled Oxygen | - | - | | Concentration | | | + + + + | Weight | 61.4 kg (135 lb 5.8 | 05/11/2017 0600 PST | | | oz) | | + + + + | Height | 162.6 cm (5' 4") | 05/08/2017 0040 PST | + + + + | Body Mass Index | 23.23 | 05/11/2017 0600 PST | + + + + Plan of Treatment + + + + + | Health Maintenance | Due Date | Last Done | Comments | + + + + + | Hepatitis C | | | | | Screening | 4 | | | + + + + + | CERVICAL CANCER | | | | | SCREENING (PAP EVERY | 5 | | | | 3 YEARS 21-64 ) | | | | + + + + + | BREAST CANCER | | | | | SCREENING (MAMM Q2 | 4 | | | | YEARS 50-74) | | | | + + + + + | COLON CANCER | | | | | SCREENING | 4 | | | | (COLONOSCOPY EVERY | | | | | 10 YEARS 50-75) | | | | + + + + + | Vaccine: Influenza | | 11/19/2015, 10/30/2014, | | | (Season Ended) | 8 | 12/12/2013 | | + + + + + [...] | + + + + + Results POC Glucose (05/11/2017 1143)Only the most recent of 12 results within the time period is i ncluded. + +-------+ + | Component | Value | Ref Range | + +-------+ + | Glucose, POC | 107 | 70 - 109 mg/dL | + +-------+ + + + + | Specimen | Performing Laboratory | + + + | Blood | [facility] [address] | | | [place] [address] | + + + CBC with Differential (05/11/2017 0455)Only the most recent of 2 results within the time toño robles is included. + + + + | Component | Value | Ref Range | + + + + | WBC | 11.6 (H) | 4.0 - 11.0 K/uL | + + + + | RBC | 4.10 | 3.70 - 5.20 M/uL | + + + + | Hgb | 11.6 | 11.5 - 16.0 g/dL | + + + + | Hct | 34.6 | 34.0 - 47.0 % | + + + + | MCV | 84.5 | 83.0 - 101.0 fL | + + + + | MCH | 28.3 | 28.0 - 35.0 pg | + + + + | MCHC | 33.5 | 32.0 - 36.0 g/dL | + + + + | RDW-CV | 13.1 | <15.0 % | + + + + | Platelet Count | 224 | 140 - 440 K/uL | + + + + | MPV | 8.8 | fL | + + + + | % Neutrophils | 66.5 | 45.0 - 82.0 % | + + + + | % Lymphocytes | 23.4 | 20.0 - 45.0 % | + + + + | % Monocytes | 9.6 | 4.0 - 12.0 % | + + + + | % Eosinophils | 0.2 | 0.0 - 5.0 % | + + + + | % Basophils | 0.3 | 0.0 - 1.0 % | + + + + | Absolute Neutrophils | 7.70 | 1.80 - 8.50 K/uL | + + + + | Absolute Lymphocytes | 2.70 | 0.60 - 3.20 K/uL | + + + + | Absolute Monocytes | 1.10 (H) | 0.00 - 1.00 K/uL | + + + + | Absolute Eosinophils | 0.00 | 0.00 - 0.40 K/uL | + + + + | Absolute Basophils | 0.00 | 0.00 - 0.10 K/uL | + + + + + + + | Specimen | Performing Laboratory | + + + | Blood | [facility] [address] | | | [place] [address] | + + + Magnesium (05/11/2017 0455)Only the most recent of 5 results within the time period is incl uded. + +-------+ + | Component | Value | Ref Range | + +-------+ + | MG | 1.9 | 1.8 - 2.5 mg/dL | + +-------+ + + + + | Specimen | Performing Laboratory | + + + | Blood | [facility] [address] | | | [place] [id number] | + + + Basic Metabolic Panel (05/11/2017 8740)Only the most recent of 3 results within the time toño robles is included. + + + + | Component | Value | Ref Range | + + + + | NA | 139 | 136 - 149 mmol/L | + + + + | K | 3.4 (L) | 3.5 - 5.1 mmol/L | + + + + | CL | 105 | 98 - 109 mmol/L | + + + + | CO2 | 30 | 24 - 31 mmol/L | + + + + | ANION GAP | 4 | 3 - 16 mmol/L | + + + + | GLUCOSE | 87 | 70 - 109 mg/dL | + + + + | BUN | 5 (L) | 7 - 18 mg/dL | + + + + | Creatinine, | 0.67 | 0.60 - 1.30 mg/dL | | Serum/Plasma | | | + + + + | eGFR if not | >60Comment: GLOMERULAR FILTRATION | >=60 mL/min/1.73m2 | | LAO | RATE,ESTIMATED mL/min/1.84a9Vqkh than | | | | 60 Chronic kidney disease,if found over | | | | a 3-month period.Less than 15 Kidney | | | | failureFor Americans,multiply the | | | | calculated GFR by 1.21. | | | | | | | | | | + + + + | CALCIUM | 8.4 | 8.3 - 10.5 mg/dL | + + + + | BUN/CREA | 7.5 | | + + + + + + + | Specimen | Performing Laboratory | + + + | Blood | [facility] [address] | | | [place] [address] | + + + XR Chest AP Portable (05/10/2017 0630)Only the most recent of 2 results within the time per iod is included. + + | Narrative | + + | XR CHEST AP PORTABLE 05/10/2017 6:28 AM HISTORY: leukocytosis. COMPARISON: | | 05/08/2017 Findings: Slight thickening/prominence of the vascular markings is | | unchanged. Aortic calcifications are seen. Heart is within the upper limits of normal | | for size. No evidence of pneumothorax or pleural effusion. Bones and soft tissues are | | unchanged. IMPRESSION - Interval extubation and removal of the NG tube. | | Similar subtle prominence of the interstitium. Dictated and Signed by: | | Haider Hernandez MD Electronically signed: 05/10/2017 9:04 AM | + + + + | Procedure Note | + + | Avelino, Rad Results In - 05/10/2017 0907 PST XR CHEST AP PORTABLE 05/10/2017 6:28 AM | | | | HISTORY: leukocytosis. | | | | COMPARISON: 05/08/2017 | | | | Findings: Slight thickening/prominence of the vascular markings is unchanged. | | Aortic calcifications are seen. Heart is within the upper limits of normal for | | size. No evidence of pneumothorax or pleural effusion. Bones and soft tissues | | are unchanged. | | | | IMPRESSION - | | Interval extubation and removal of the NG tube. | | | | Similar subtle prominence of the interstitium. | | | | Dictated and Signed by: Haider Hernandez MD | | Electronically signed: 05/10/2017 9:04 AM | + + CBC no Differential (05/10/2017 0335)Only the most recent of 2 results within the time roger od is included. + + + + | Component | Value | Ref Range | + + + + | WBC | 17.9 (H) | 4.0 - 11.0 K/uL | + + + + | RBC | 4.21 | 3.70 - 5.20 M/uL | + + + + | Hgb | 11.7 | 11.5 - 16.0 g/dL | + + + + | Hct | 36.1 | 34.0 - 47.0 % | + + + + | MCV | 85.8 | 83.0 - 101.0 fL | + + + + | MCH | 27.8 (L) | 28.0 - 35.0 pg | + + + + | MCHC | 32.4 | 32.0 - 36.0 g/dL | + + + + | RDW-CV | 13.1 | <15.0 % | + + + + | Platelet Count | 243 | 140 - 440 K/uL | + + + + | MPV | 8.5 | fL | + + + + + + + | Specimen | Performing Laboratory | + + + | Blood | [facility] [address] | | | [place] [address] | + + + CV CARDIAC PROCEDURE (05/09/20171401) + + | Narrative | + + | Johnny Luther MD 05/09/2017 14:39 CARDIAC CATHETERIZATION REPORT DATE | | OF PROCEDURE: 05/09/17 PRECATHETERIZATION INFORMED CONSENT : Yes | | TIMEOUT Before start of procedure done: Yes ENERGY EFFICIENCY ENGINEER: Johnny Johnson M.D., | | Brenda PRIMARY PHYSICIAN: Bry Vaughn DO PROCEDURES PERFORMED: Left | | heart catheterization, selective coronary arteriography INDICATIONS | | : 61-year-old woman admitted with acute respiratory failure, elevated troponin | | ARTERIAL ACCESS: Right radial artery 6 Cymraes CLOSURE DEVICE:. TR band | | DESCRIPTION OF PROCEDURE: After obtaining informed written consent, the patient was | | brought to the cardiac catheterization laboratory in stable condition where she was | | prepped and draped in the usual fashion. Local anesthesia was administered to the | | right anterior wrist with 1% lidocaine. Access to the right radial artery was | | achieved using a Seldinger technique and a 6 Cymraes sheath was inserted. 3 mg per | | mL and 300 g of nitroglycerin were administered through the side port of the | | radial artery sheath. 4000 units of intravenous heparin was | | administered. Selective coronary arteriography was performed using a 5 Cymraes | | Ole catheter. The 5 Cymraes Ole catheter was advanced across the aortic valve | | without difficulty. Left ventricular pressures and aortic valve pullback pressures | | were recorded. The right radial artery sheath was removed using the patent | | hemostasis technique and a TR band was applied with good hemostasis. There were no | | complications. SEDATION MEDICATIONS: None CONTRAST VOLUME: 57 mL Omnipaque | | FLUORO TIME: 2.2 minutes; FLUORO DOSE: 220 mGy/cm2 HEMODYNAMICS: LEFT HEART: | | Left ventricular end diastolic pressure: 25 mmHg Aortic pressure: 146/89 mmHg | | Aortic Valve Gradient on pullback: 0 mmHg CORONARY ANGIOGRAPHY DOMINANCE: Right | | LEFT MAIN ARTERY: Medium caliber vessel arising from left coronary cusp, mild luminal | | irregularity LEFT ANTERIOR DESCENDING ARTERY: Medium caliber vessel extending to | | the apex, distal and apical segment have mild luminal narrowing, first and second | | diagonal branches are small in caliber, third diagonal branch is medium caliber with | | mild luminal irregularity, apical segment is moderately tortuous and small in | | caliber CIRCUMFLEX ARTERY: Medium caliber vessel which gives rise to first major | | obtuse marginal branch, eccentric 50% proximal stenosis, mild luminal irregularity | | distally RIGHT CORONARY ARTERY: Medium caliber vessel arising from right coronary | | cusp, dominant, minimal luminal irregularity, posterior descending artery is | | moderately tortuous in its distal segment, single posterior lateral branch with mild | | luminal irregularity CONTRAST LEFT VENTRICULOGRAPHY: Not performed | | CONCLUSIONS: 1. Elevated left ventricular end-diastolic pressure 2. Mild to | | moderate proximal left circumflex stenosis 3. 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 Senior Database Programmer | | [place], [place] | + + ECG 12 lead (05/09/2017 1133)Only the most recent of 3 results within the time period is in cluded. + + + + | Component | Value | Ref Range | + + + + | VENTRICULAR RATE EKG | 82 | BPM | + + + + | ATRIAL RATE | 82 | BPM | + + + + | P-R INTERVAL | 194 | ms | + + + + | QRS DURATION | 74 | ms | + + + + | Q-T INTERVAL | 366 | ms | + + + + | Q-T INTERVAL | 427 | ms | | (CORRECTED) | | | + + + + | P WAVE AXIS | 70 | degrees | + + + + | QRS AXIS | -38 | degrees | + + + + | T AXIS | 61 | degrees | + + + + | INTERPRETATION TEXT | Normal sinus rhythmPossible Left atrial | | | | enlargementLeft axis deviationT wave | | | | abnormality, consider anterolateral | | | | ischemiaNonspecific T wave abnormality | | | | Lateral leadsAbnormal ECGWhen compared with | | | | ECG of 08-MAY-2017 13:08,there is new T | | | | wave inversion in lead V3 and biphaasic T | | | | waves in leads V4-6Confirmed by GEORGES HU, | | | | LUCIO ([id number]) on 05/10/2017 7:08:38 AM | | | | | | + + + + + + + | Specimen | Performing Laboratory | + + + | | WAMT MUSE | + + + PTT (05/09/2017 0916)Only the most recent of 7 results within the time period is included. + +--------+ + | Component | Value | Ref Range | + +--------+ + | PTT | 65 (H) | 22 - 36 seconds | + +--------+ + + + + | Specimen | Performing Laboratory | + + + | Blood | [facility] [address] | | | [place] [address] | + + + Protime INR (05/09/2017 0307)Only the most recent of 2 results within the time period is in cluded. + + + + | Component | Value | Ref Range | + + + + | Protime | 13.4 | 11.3 - 13.9 seconds | + + + + | INR | 1.03Comment: Usual Oral Anticoagulation | 0.90 - 1.10 | | | Range: 2.0 - 3.0High Level Oral | | | | Anticoagulation Range: 2.5 - 3.5 | | | |High Level Oral Anticoagulation Range: 2.5 - 3.5 | | + + + + + + + | Specimen | Performing Laboratory | + + + | Blood | [facility] [address] | | | [place] [address] | + + + Comprehensive Metabolic Panel (05/09/2017 0307) + + + + | Component | Value | Ref Range | + + + + | NA | 143 | 136 - 149 mmol/L | + + + + | K | 4.3 | 3.5 - 5.1 mmol/L | + + + + | CL | 113 (H) | 98 - 109 mmol/L | + + + + | CO2 | 22 (L) | 24 - 31 mmol/L | + + + + | ANION GAP | 8 | 3 - 16 mmol/L | + + + + | GLUCOSE | 137 (H) | 70 - 109 mg/dL | + + + + | BUN | 7 | 7 - 18 mg/dL | + + + + | Creatinine, | 0.53 (L) | 0.60 - 1.30 mg/dL | | Serum/Plasma | | | + + + + | eGFR if not | >60Comment: GLOMERULAR FILTRATION | >=60 mL/min/1.73m2 | | LAO | RATE,ESTIMATED mL/min/1.26l6Xdiz than | | | | 60 Chronic kidney disease,if found over | | | | a 3-month period.Less than 15 Kidney | | | | failureFor Americans,multiply the | | | | calculated GFR by 1.21. | | | | | | | | | | + + + + | CALCIUM | 8.0 (L) | 8.3 - 10.5 mg/dL | + + + + | ALBUMIN | 3.4 | 3.2 - 5.0 g/dL | + + + + | Bilirubin Total | 0.9 | 0.1 - 1.5 mg/dL | + + + + | Total protein | 5.4 (L) | 6.0 - 7.8 g/dL | + + + + | AST | 43 (H) | 10 - 42 U/L | + + + + | ALT | 22 | 6 - 45 U/L | + + + + | ALK PHOS | 58 | 40 - 110 U/L | + + + + | GLOBULIN | 2.0 (L) | 2.1 - 3.8 g/dL | + + + + | Albumin/Globulin | 1.7 | 0.8 - 2.0 | | ratio | | | + + + + | BUN/CREA | 13.2 | | + + + + + + + | Specimen | Performing Laboratory | + + + | Blood | [facility] [address] | | | [place] [address] | + + + Troponin I (05/09/2017 0112)Only the most recent of 5 results within the time period is inc luded. + + + + | Component | Value | Ref Range | + + + + | Troponin I | 1.88 (HH)Comment: Reference | <0.06 ng/mL | | | Ranges:0.00-0.06 = NORMAL>0.06 = | | | | SUSPICIOUS FOR MYOCARDIAL DAMAGE NOTE: | | | | Values greater than 0.50 ng/mL have been | | | | shown to be strongly associated with acute | | | | myocardial infarction. The [employer] | | | | of Cardiology (ACC) recommends a decision | | | | limit of 0.06 ng/mL for this | | | | assay. Results greater than 0.06 can | | | | reflect a pre-infarct acute coronary | | | | syndrome, but can also reflect myocardial | | | | necrosis or injury that is not due to | | | | coronary artery disease. Some of these | | | | causes are sepsis, hypocolemia, atrial | | | | fibrillation, heart failure, pulmonary | | | | embolism, myocarditis, myocardial | | | | contusion, and renal failure. The | | | | diagnosis of myocardial infarction should | | | | be based on a combination of the patient's | | | | clinical presentation and the clinical | | | | laboratory test results (especially serial | | | | troponin levels). Consistent with previous | | | | results. | | + + + + + + + | Specimen | Performing Laboratory | + + + | Blood | [facility] [address] | | | [place] [address] | + + + POC Blood Gases (05/08/2017 1330)Only the most recent of 2 results within the time period i s included. + +--------+ + | Component | Value | Ref Range | + +--------+ + | Specimen Source | Artery | | + +--------+ + | pH, POC | 7.341 | 7.3 - 7.45 | + +--------+ + | HCO3, POC | 24.2 | 21.0 - 28.0 mmol/L | + +--------+ + | TCO2, POC | 25.5 | 22.0 - 29.0 mmol/L | + +--------+ + | Base Excess, POC | -1.8 | -2.0 - 3.0 mmol/L | + +--------+ + | Base Excess, | -1.6 | -2.0 - 3.0 mmol/L | | Extracellular fluid, | | | | POC | | | + +--------+ + | O2 Sat, POC | 96 | 90 - 100 % | + +--------+ + | PCO2, POC | 44.7 | 35.0 - 45 mmHg | + +--------+ + | PO2, POC | 85.7 | 60 - 750.0 mmHg | + +--------+ + + + + | Specimen | Performing Laboratory | + + + | | [facility] | | | [place] [address] | + + + Hemoglobin and Hematocrit (05/08/2017 1250) + +-------+ + | Component | Value | Ref Range | + +-------+ + | Hgb | 13.1 | 11.5 - 16.0 g/dL | + +-------+ + | Hct | 40.3 | 34.0 - 47.0 % | + +-------+ + + + + | Specimen | Performing Laboratory | + + + | Blood | [facility] [address] | | | [place] [address] | + + + Potassium (05/08/20171249) + +-------+ + | Component | Value | Ref Range | + +-------+ + | K | 4.1 | 3.5 - 5.1 mmol/L | + +-------+ + + + + | Specimen | Performing Laboratory | + + + | Blood | [facility] [address] | | | [place] [address] | + + + ECHO Complete (05/08/2017 0959) + +-------+ + | Component | Value | Ref Range | + +-------+ + | LVEF-TTE | 44 | | | TRANSTHORACIC ECHO | | | + +-------+ + + + | Narrative | + + | Transthoracic Echocardiography Report (TTE) Demographics Patient Name | | JARED MONTAÑO Room Number 449 I | | Patient Number [id number] Date of Study 05/08/2017 | | Visit Number [id number] Referring | | Physician NICOLE TSANG Number Date of 1955 | | 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 Procedure date | | Date: 05/08/2017Start: 09:30 AM Technical Quality: Adequate visualizationStudy | | Location: ICU Indications: Elevated Troponin Level 790.5/R74.8. Patient Status: | | Routine Height: 64 inchesWeight: 135 poundsBSA: 1.66 m^2BMI: 23.17 kg/m^2 | | Conclusions Summary The number of aortic valve leaflets cannot be identified. No | | evidence of aortic stenosis. The left atrium is mildly dilated. Left Ventricular size | | appears to be normal with an ejection fraction estimated at 40 %. Akinesis of mid to | | distal anterior septum Severe anterior and apical hypokinesis Aortic root dimension | | within normal limits. Mild mitral regurgitation. No evidence of any pericardial | | effusion. Normal right atrial size. Normal right ventricular size and function. Mild | | tricuspid regurgitation with velocity of 2.64 m/s, with an estimated pulmonary artery | | systolic pressure of 28 mmHg. Signature | | | | Electronically signed by JOHNNY JOHNSON MD, [facility](Interpreting physician) on | | 05/08/2017 04:56 PM | | | | Findings Mitral Valve Mild mitral regurgitation. Aortic Valve The number of aortic | | valve leaflets cannot be identified. No evidence of aortic stenosis. Tricuspid Valve | | Mild tricuspid regurgitation with velocity of 2.64 m/s, with an estimated pulmonary | | artery systolic pressure of 28 mmHg. Pulmonic Valve Structurally normal pulmonic valve | | without significant stenosis or regurgitation. Left Atrium The left atrium is mildly | | dilated. Left Ventricle Left Ventricular size appears to be normal with an ejection | | fraction estimated at 40 %. Akinesis of mid to distal anterior septum Severe anterior | | and apical hypokinesis Right Atrium Normal right atrial size. Right Ventricle | | Normal right ventricular size and function. Pericardial Effusion No evidence of any | | pericardial effusion. Miscellaneous Aortic root dimension within normal limits. | | Valves Aortic Valve Tricuspid Valve TR Velocity: 2.64 m/s Structures | | Left Atrium LA A/P Dimension: 4.1 | | cm LA Area: 12.3 cm^2 LA Vol/BSA Index: 23 | | mL/m^2 LA Volume: 38.51 ml | | | | EF [id number]% Left Ventricle Diastolic Dimension: 4.9 | | cm Systolic Dimension: 3.67 cm Septum Diastolic: 1.03 cm PW | | Diastolic: 1.13 cm EF Calculated: 44% Miscellaneous Aorta Aortic Root: | | 3.27 cm Ascending Aorta: 3.43 cm | + + + + | Procedure Note | + + | Avelino, Rad Results In - 05/08/2017 1656 [facility] Transthoracic Echocardiography Report (TTE) | | | | Demographics | | | | Patient Name JARED MONTAÑO Room Number 449 | | I | | | | Patient Number [id number] Date of Study 05/08/2017 | | | | Visit Number [id number] | | | | Referring Physician NICOLE TSANG | | Number | | | | Date of 1955 Rider Ticket Worker G[employer] RO[facility] | | | | Age 61 year(s) Interpreting JOHNNY JOHNSON MD, | | Trackwalker FAC | | | | Gender Female Nurse | | | | 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 | | | | Procedure date | | Date: 05/08/2017Start: 09:30 AM | | | | Technical Quality: Adequate visualizationStudy Location: ICU | | Indications: Elevated Troponin Level 790.5/R74.8. | | Patient Status: Routine | | Height: 64 inchesWeight: 135 poundsBSA: 1.66 m^2BMI: 23.17 kg/m^2 | | | | Conclusions | | Summary | | The number of aortic valve leaflets cannot be identified. | | No evidence of aortic stenosis. | | The left atrium is mildly dilated. | | Left Ventricular size appears to be normal with an ejection fraction | | estimated at 40 %. | | Akinesis of mid to distal anterior septum | | Severe anterior and apical hypokinesis | | Aortic root dimension within normal limits. | | Mild mitral regurgitation. | | No evidence of any pericardial effusion. | | Normal right atrial size. | | Normal right ventricular size and function. | | Mild tricuspid regurgitation with velocity of 2.64 m/s, with an estimated | | pulmonary artery systolic pressure of 28 mmHg. | | | | Signature | | | | Electronically signed by JOHNNY JOHNSON MD, [facility](Interpreting | | physician) on 05/08/2017 04:56 PM | | | | | | Findings | | Mitral Valve | | Mild mitral regurgitation. | | Aortic Valve | | The number of aortic valve leaflets cannot be identified. | | No evidence of aortic stenosis. | | Tricuspid Valve | | Mild tricuspid regurgitation with velocity of 2.64 m/s, with an estimated | | pulmonary artery systolic pressure of 28 mmHg. | | Pulmonic Valve | | Structurally normal pulmonic valve without significant stenosis or | | regurgitation. | | Left Atrium | | The left atrium is mildly dilated. | | Left Ventricle | | Left Ventricular size appears to be normal with an ejection fraction | | estimated at 40 %. | | Akinesis of mid to distal anterior septum | | Severe anterior and apical hypokinesis | | | | Right Atrium | | Normal right atrial size. | | Right Ventricle | | Normal right ventricular size and function. | | Pericardial Effusion | | No evidence of any pericardial effusion. | | | | Miscellaneous | | Aortic root dimension within normal limits. | | | | Valves | | | | Aortic Valve | | | | Tricuspid Valve | | | | TR Velocity: 2.64 m/s | | | | Structures | | | | Left Atrium | | | | LA A/P Dimension: 4.1 cm LA Area: 12.3 cm^2 | | LA Vol/BSA Index: 23 mL/m^2 LA Volume: 38.51 ml | | EF [id number]% | | | | Left Ventricle | | | | Diastolic Dimension: 4.9 cm Systolic Dimension: 3.67 cm | | Septum Diastolic: 1.03 cm | | PW Diastolic: 1.13 cm | | EF Calculated: 44% | | | | Miscellaneous | | | | Aorta | | | | Aortic Root: 3.27 cm | | Ascending Aorta: 3.43 cm | + + Lactic Acid (05/08/2017 0648)Only the most recent of 2 results within the time period is in cluded. + +-------+ + | Component | Value | Ref Range | + +-------+ + | LACTATE | 1.4 | 0.5 - 2.2 mmol/L | + +-------+ + + + + | Specimen | Performing Laboratory | + + + | Blood | [facility] [address] | | | [place] [address] | + + + Culture, Blood (05/08/2017144)Only the most recent of 2 results within the time period is included. + + + + | Component | Value | Ref Range | + + + + | Culture | No growth after 5 days incubation. | | + + + + + + + | Specimen | Performing Laboratory | + + + | Blood - Line | [facility] [address] | | | [place] [address] | + + + Culture, MRSA (05/08/20172) + + + + | Component | Value | Ref Range | + + + + | Culture | Negative for MRSA by chromogenic agar | | | | method | | + + + + | Culture | 3+ Coagulase positive Staphylococcus | | + + + + + + + | Specimen | Performing Laboratory | + + + | Respiratory - Nares | [facility] [address] | | | [place] [address] | + + + IMAGING REPORT - EXTERNAL SCAN (05/07/2017)Only the most recent of 3 results within the period is included. + + | Narrative | + + | Ordered by an unspecified provider. | + + LABS - EXTERNAL SCAN (05/07/2017) + + | Narrative | + + | Ordered by an unspecified provider. | + + ECG - EXTERNAL SCAN (05/07/2017) + + | Narrative | + + | Ordered by an unspecified provider. | + + from Last 3 Months Insurance + +--------+ +--------+ +---------+ | Payer | Benefi | Subscriber | Type | Phone | Address | | | t Plan | ID | | | | | | / | | | | | | | Group | | | | | + +--------+ +--------+ +---------+ | [employer] | [employer] | xxxxxxxx | Medica | [phone] | | MEDICAID HMO | HEALTH | | id | [id number] | | | | MDCD | | | | | | | [place]MO [place] | | | | | + +--------+ +--------+ +---------+ + +--------+ +--------+ + + | Guarantor Name | Accoun | Relation to | Date | Phone | Billing Address | | | t Type | Patient | of | | | | | | | | | | + +--------+ +--------+ + + | AMY COLEMAN I | Person | Self [birth year] Home: | [address] | | | al/Fam | | 1955 | [phone] | [place] [address] | | | julito | | | [phone] | | + +--------+ +--------+ + +
--- OUTSIDE RECORDS SUMMARY | 2017-07-12 16:51 | XMS | Encounter Summary ---
Demographics + + + | Address | [address] | | | [place] [address] | + + + | Home Phone | | + + + | Preferred Language | Unknown | + + + | Marital Status | | + + + | Bahai Affiliation | [id number] | + + + | Race | Unknown | + + + | Ethnic Group | Unknown | + + + Author + + + | Author | [facility] [address] [facility] | | | and Darrenana | + + + | Organization | [facility] | | | and Darrenana [...] Team Providers + +------+ + | Care Moving Worker Name | Role | Phone | + +------+ + | Bry Vaughn DO | PCP | | + +------+ + Reason for Referral Evaluate & Treat (Routine) +--------+ + + + + + | Status | Reason | Specialty | Diagnoses / | Referred By | Referred To | | | | | Procedures | Contact | Contact | +--------+ + + + + + | Closed | Specialty | Home Health | Diagnoses | [facility] | | | | Services | Services | Chronic | Paolo, | | | | Required | | obstructive | MD Narcisa | | | | | | pulmonary | [address] | | | | | | disease, | [place] | | | | | | unspecified | [place], [place] | | | | | | COPD type | [address] | | | | | | ([facility]) Acute | Phone: | | | | | | on chronic | [phone] | | | | | | respiratory | Fax: | | | | | | failure with | [phone] | | | | | | hypoxia and | | | | | | | hypercapnia | | | | | | | ([facility]) | | | +--------+ + + + + + Reason for Visit Auth/Cert +--------+--------+ + + + + | Status | Reason | Specialty | Diagnoses / | Referred By | Referred To | | | | | Procedures | Contact | Contact | +--------+--------+ + + + + | | | | Diagnoses | | | | | | | Respiratory | | | | | | | failure | | | | | | | ([facility]) sob | | | | | | | label tacker | | | | | | | procedure | | | | | | | needed | | | | | | | Procedures | | | | | | | CV LHC | | | +--------+--------+ + + + + Encounter Details +--------+ + + + + | Date | Type | Department | Care Team | Description | +--------+ + + + + | 05/08/ | Hospital | [facility] | Orlando Wall MD | Chronic obstructive | | 2018 - | Encounter | MED [facility] ICU [address] | pulmonary disease, | | | | [place], | [place], [place] | unspecified COPD | | 05/11/ | | [place] [address] | [id number] | type (HCC); Acute on | | 2018 | | [phone] | | chronic respiratory | | | | | Marcio Boone, | failure with | | | | | MD Narcisa [address] | hypoxia and | | | | | [address] [place] | hypercapnia (HCC); | | | | | [place] [address] | NSTEMI (non-ST | | | | | [phone] | elevated myocardial | | | | | | infarction) ([facility]); | | | | | | Non-ST elevation | | | | | | myocardial | | | | | | infarction (NSTEMI), | | | | | | type 2 ([facility]) | +--------+ + + + + Social [...] | 61.4 kg (135 lb 5.8 | 05/11/2017599 PST | | | oz) | | + + + + | Height | 162.6 cm (5' 4") | 05/08/201739 PST | + + + + | Body Mass Index | 23.23 | 05/11/2017599 PST | + + + + in this encounter Discharge Summaries Narcisa Sanchez MD - 05/11/2017 0741 PSTFormatting of this note may be different fr om the original. [facility] DIS[facility]GE SUMMARY Pt. Name/Age/: Amy Coleman 61 y.o. 1955 Date of Admission: 05/08/2017 Date of Discharge: 05/11/2017 Admitting Physician: Orlando Wall MD Primary Care Provider: Bry Vaughn DO Discharging Physician: Narcisa Boone MD DISCHARGE DIAGNOSES: Active Hospital Problems Diagnosis Respiratory failure with hypoxia and hypercapnia COPD (chronic obstructive pulmonary disease) Resolved Hospital Problems Diagnosis No resolved problems to display. 1. Acute hypercarbic hypoxic respiratory failure due to COPD exacerbation 2. NSTEMI type 2 DISCHARGE MEDICATIONS: Discharge Medications New Medications Details albuterol-ipratropium 2.5-0.5 mg/3 mL Soln Take 3 mLs by nebulization every 6 hours. Dx: COPD Acute hypoxic respiratory failure aka: DUONEB aspirin 81 mg chewable tablet Take 1 tablet by mouth Daily. lisinopril 10 mg tablet Take 1 tablet by mouth Daily. aka: PRINIVIL, ZESTRIL nicotine 21 mg/[address] 1 patch onto the skin Daily as needed for Nicotine Craving. aka: NICODERM pantoprazole 40 mg tablet Take 1 tablet by mouth every morning (before breakfast). aka: PROTONIX Start: 05/12/2017 predniSONE 20 mg tablet Take 40 mg (2 tabs) by mouth daily for 3 days, then Take 30 mg (1.5 tabs) by mouth daily f or 3 days, then Take 20 mg (1 tab) by mouth daily for 3 days, then Take 10 mg (0.5 tab) by m outh daily for 3 days, then stop aka: DELTASONE Unchanged Medications Details atorvaSTATin 40 mg tablet Take 40 mg by mouth nightly. aka: LIPITOR buPROPion 150 mg 12 hr tablet Take 150 mg by mouth 2 times daily. aka: WELLBUTRIN SR INCRUSE ELLIPTA 62.5 mcg/puff inhaler Generic drug: umeclidinium Inhale 1 puff into the lungs Daily. nitroglycerin 0.[address] 0.4 mg under the tongue every 5 minutes as needed for Chest pain. aka: NITROSTAT oxybutynin 5 mg tablet Take 5 mg by mouth 2 times daily. aka: DITROPAN propranolol 80 mg tablet Take 80 mg by mouth Daily. For tremors aka: INDERAL SENIOR MULTIVITAMIN PLUS Tabs Take 1 tablet by mouth Daily. THERATEARS 0.25% ophthalmic solution Generic drug: carboxymethylcellulose Place 1 drop into both eyes every hour as needed for Dry Eyes. VENTOLIN HFA 90 mcg/puff inhaler Generic drug: albuterol Inhale 2 puffs into the lungs every 4 hours as needed. Discontinued Medications ibuprofen 200 mg tablet aka: [facility]SE: Please refer to the H&P for full details and the most recent rounding rounding (progress) n ote. In short this is a 61-year-old woman with past medical history of COPD, hyperlipidemia, who presented to the emergency department intubated, after she was noted to have respiratory di stress and failure at home. Initial history was given by daughter, who reported that patibruno collier has been having some chest and epigastric pain, she was going upstairs to get some antacid s, however, upon arriving to the top of the stairs she got increasingly more dyspneic, to th e point that she could body told. Per daughter patient was turning blue. She call 911, pat vitor became unresponsive, in she was intubated on the field. Initial evaluation in the emergency department did not reveal pulmonary embolism or pneumon ia, she was found to have hypoxia and hypercarbia. She was restarted on medications for man agement of COPD exacerbation with Solu-Medrol, duo nebs, and azithromycin. Additionally tro ponins were cycled, initial was found to be elevated, so she was started on heparin drip, an d cardiology was consulted. In the initial 16 hours, spontaneous breathing trial was attempted, patient did well in she was successfully extubated. Echo showed a kidney cyst of the mid to distal anterior septum and severe hypokinesis of the anterior and anterior apical segment with an overall ejection fraction of 40%. Patient was taken for coronary angiography, non-occlusive CAD, and recomm ended to continue medical management. Patient continued to improve daily, she was weaned of f the steroids and transitioned to oral. She was started on lisinopril 10 mg daily, jordan mancuso on aspirin 81 mg daily. She was continued on his statin, as well as propranolol. On day of discharge she is feeling well. Physical exam and laboratory data are benign. Polly mancuso is recommended to continue follow-up with her primary physician in 3-5 days, as well as to continue cardiology follow-up as an outpatient. Prescriptions were given to patient. Most recent weight: Input and output for last 24hrs: Wt Readings from Last 1 Encounters: 05/11/17 61.4 kg (135 lb 5.8 oz) I/O last 24 Hours: In: 2736 [P.O.:1030; I.V.:1446; IV Piggyback:260] Out: 2875 [Urine:2875] Vitals Ranges: Temp: [35.9 C (96.6 F)-37.1 C (98.8 F)] 36.3 C (97.3 F) Pulse: [70-103] 72 Resp: [16-20] 16 BP: (130-146)/(72-93) 131/72 Vitals: Temp: 36.3 C (97.3 F) BP: 131/72 Pulse: 72 Resp: 16 SpO2: 95 % SpO2 95 % on room air at flow rate 1L/min PHYSICAL EXAM: Patient seen and examined by me on discharge day PROCEDURES AND CONSULTS: Procedures [facility] CORONARY ANGIOGRAPHY DOMINANCE: Right LEFT MAIN ARTERY: Medium caliber vessel arising from left coronary cusp, mild luminal irreg ularity LEFT ANTERIOR DESCENDING ARTERY: Medium caliber vessel extending to the apex, distal and ap ical segment have mild luminal narrowing, first and second diagonal branches are small in ca liber, third diagonal branch is medium caliber with mild luminal irregularity, apical segmen t is moderately tortuous and small in caliber CIRCUMFLEX ARTERY: Medium caliber vessel which gives rise to first major obtuse marginal br anch, eccentric 50% proximal stenosis, mild luminal irregularity distally RIGHT CORONARY ARTERY: Medium caliber vessel arising from right coronary cusp, dominant, mi nimal luminal irregularity, posterior descending artery is moderately tortuous in its distal segment, single posterior lateral branch with mild luminal irregularity CONTRAST LEFT VENTRICULOGRAPHY: Not performed CONCLUSIONS: 1. Elevated left ventricular end-diastolic pressure 2. Mild to moderate proximal left circumflex stenosis 3. Mild luminal disease in left main, LAD, and RCA PLAN: aspirin, DONOVAN inhibitor, beta meena, statin therapy, lifestyle modification Consults cardiology PENDING RESULTS: none DISPOSITION AND DISCHARGE INSTRUCTIONS: Follow-up Information Bry Vaughn DO In 1 week. Specialty: Internal Medicine Contact information: [address] [place] [address] Demarcus Jurado MD In 3 weeks. Specialty: Gastroenterology Contact information: [address] [place] [id number] Condition: Patient being discharged with condition improved Diet: low salt low fat Greater than 30 minutes were spent on discharge and coordination of post-hospital care. Electronically signed by: Narcisa Boone MD, 05/11/2017 7:41 [facility] Portions of this chart may have been created with [employer] voice recognition software. Occasi onal wrong-word or sound-alike substitutions may have occurred due to the inherent lobo itations of voice recognition software. Please read the chart carefully and recognize, using context, where these substitutions have occurredin this encounter Discharge Instructions Narcisa Sanchez MD - 05/11/2017 COPD Flare You have had a flare-up of your COPD. COPD, or chronic obstructive pulmonary disease, is a common lung disease. It causes your ai rways to become irritated and narrower. This makes it harder for you to breathe. Emphysema a nd chronic bronchitis are both types of COPD. This is a chronic condition, which means you a lways have it. Sometimes it gets worse. When this happens, it is called a flare-up. Symptoms of COPD People with COPD may have symptoms most of the time. In a flare-up, your symptoms get worse . These symptoms may mean you are having a flare-up: Shortness of breath, shallow or rapid breathing, or wheezing that gets worse Lung infection Cough that gets worse More mucus, thicker mucus or mucus of a different color Tiredness, decreased energy, or trouble doing your usual activities Fever Chest tightness Your symptoms don t get better even when you use your usual medicines, inhalers, and n ebulizer Trouble talking You feel confused Causes of flare-ups Unfortunately, a flare-up can happen even though you did everything right, and you followed your doctor s instructions. Some causes of flare-ups are: Smoking or secondhand smoke Colds, the flu, or respiratory infections Air pollution Sudden change in the weather Dust, irritating chemicals, or strong fumes Not taking your medicines as prescribed Home care Here are some things you can do at home to treat a flare-up: Try not to panic. This makes it harder to breathe, and keeps you from doing the right th ings. Don t smoke or be around others who are smoking. Try to drink more fluids than usual during a flare-up, unless your doctor has told you n ot to because of heart and kidney problems. More fluids can help loosen the mucus. Use your inhalers and nebulizer, if you have one, as you have been told to. If you were given antibiotics, take them until they are used up or your doctor tells you to stop. It s important to finish the antibiotics, even though you feel better. This will make sure the infection has cleared. If you were given prednisone or another steroid, finish it even if you feel better. Preventing a flare-up Even though flare-ups happen, the best way to treat one is to prevent it before it starts. Here are some pointers: Don t smoke or be around others who are smoking. Take your medicines as you have been told. Talk with your doctor about getting a flu shot every year. Also find out if you need a p neumonia shot. If there is a weather advisory warning to stay indoors, try to stay inside when possible . Try to eat healthy and get plenty of sleep. Try to avoid things that usually set you off, like dust, chemical fumes, hairsprays, or strong perfumes. Follow-up care Follow up with your healthcare provider, or as advised. If a culture was done, you will be told if your treatment needs to be changed. You can call as directedfor the results. If X-rays were done, you will be notified of any new findings that may affect your care. Call 911 Call 911 if any of these occur: You have trouble breathing You feel confused or it s difficult to wake you up You faint or lose consciousness You have a rapid heart rate You have new pain in your chest, arm, shoulder, neck or upper back When to seek medical advice Call your healthcare provider right awayifany of these occur: Wheezing or shortness of breath gets worse You need to use your inhalers more often than usual without relief Fever of 100.4F(38C) or higher, or as directed by your healthcare provider Coughing up lots of dark-colored or bloody mucus (sputum) Chest pain with each breath You do not start to get better within 24 hours Swelling of your ankles gets worse Dizziness or weakness Date Last Reviewed: 11/13/201519998730-0777 [employer]. [address] [place] [address], [place] [address]. All righ ts reserved. This information is not intended as a substitute for professional medical care. Always follow your healthcare professional's instructions. The following attachments cannot be sent through Care Everywhere.Kicking the Smoking Habit ([employer])Coronary Artery Disease (CAD), Understanding (Divehi)in this encounter Medications at Time of Discharge + + + +---------+ + + | Medication | Sig. | Disp. | Refills | Start | End Date | | | | | | Date | | + + + +---------+ + + | albuterol | Inhale 2 puffs into | | | | | | (VENTOLIN HFA) 90 | the lungs every 4 | | | | | | mcg/puff inhaler | hours as needed. | | | | | + + + +---------+ + + | | Take 3 mLs by | 360 mL | 0 | 05/11/19 | | | albuterol-ipratropiu | nebulization every 6 | | | 18 | | | m (DUONEB) 2.5-0.5 | hours. Dx: | | | | | | mg/3 mL SOLN | COPDAcute hypoxic | | | | | | | respiratory failure | | | | | + + + +---------+ + + | aspirin 81 mg | Take 1 tablet by | 30 | 0 | 05/11/19 | | | chewable tablet | mouth Daily. | tablet | | 18 | | + + + +---------+ + + | atorvaSTATin | Take 40 mg by mouth | | | | | | (LIPITOR) 40 mg | nightly. | | | | | | tablet | | | | | | + + + +---------+ + + | buPROPion | Take 150 mg by mouth | | | | | | (WELLBUTRIN SR) 150 | 2 times daily. | | | | | | mg 12 hr tablet | | | | | | + + + +---------+ + + | | Place 1 drop into | | | | | | carboxymethylcellulo | both eyes every hour | | | | | | se (THERATEARS) | as needed for Dry | | | | | | 0.25% ophthalmic | Eyes. | | | | | | solution | | | | | | + + + +---------+ + + | lisinopril | Take 1 tablet by | 30 | 0 | 05/11/19 | | | (PRINIVIL, ZESTRIL) | mouth Daily. | tablet | | 18 | | | 10 mg tablet | | | | | | + + + +---------+ + + | Multiple | Take 1 tablet by | | | | | | Vitamins-Minerals | mouth Daily. | | | | | | (SENIOR MULTIVITAMIN | | | | | | | PLUS) TABS | | | | | | + + + +---------+ + + | nitroglycerin | Place 0.4 mg under | | | | | | (NITROSTAT) 0.4 mg | the tongue every 5 | | | | | | SL tablet | minutes as needed | | | | | | | for Chest pain. | | | | | + + + +---------+ + + | oxybutynin | Take 5 mg by mouth 2 | | | | | | (DITROPAN) 5 mg | times daily. | | | | | | tablet | | | | | | + + + +---------+ + + | pantoprazole | Take 1 tablet by | 30 | 0 | 05/13/19 | | | (PROTONIX) 40 mg | mouth every morning | tablet | | 18 | | | tablet | (before breakfast). | | | | | + + + +---------+ + + | predniSONE | Take 40 mg (2 tabs) | 15 | 0 | 05/11/19 | | | (DELTASONE) 20 mg | by mouth daily for 3 | tablet | | 18 | | | tablet | days, then Take 30 | | | | | | | mg (1.5 [...] | stop | | | | | + + + +---------+ + + | propranolol | Take 80 mg by mouth | | | | | | (INDERAL) 80 mg | Daily. For tremors | | | | | | tablet | | | | | | + + + +---------+ + + | umeclidinium | Inhale 1 puff into | | | | | | (INCRUSE ELLIPTA) | the lungs Daily. | | | | | | 62.5 mcg/puff | | | | | | | inhaler | | | | | | + + + +---------+ + + | nicotine | Place 1 patch onto | 30 | 0 | 05/11/19 | | | (NICODERM) 21 mg/24 | the skin Daily as | patch | | 18 | 8 | | hr | needed for Nicotine | | | | | | | Craving. | | | | | + + + +---------+ + + as of this encounter Progress Notes Dewey Harris, PharmD - 05/11/2017 1206 PSTDarlinbozena Coleman was admitted for COPD exacerb [facility] and discharged home today (05/11/2017) Taught AVS education to patient. Education was focused on new medications and/or changed me dications. I explained indication, how to take, possible side effects, when to contact physi jeronimo, and monitor parameters. The patient was encouraged to make a follow-up appointment with PCP. The patient verbalized understanding of the above and all questions were answered. Pharmaci will follow-up with patient in one to two business days. Patient was provided with a billy nciled discharge medication list as part of their AVS instructions. Encouraged patient to sh are medication list with healthcare providers and keep list current. Dewey Harris, Charley 05/11/2017 12:05 Carmelita Fulton, CONCRETE PRECAST MOULDER - 05/11/2017 1038 PSTFormatting of this note may be different f rom the original. Amy walked with me around the the nurse station [facility] without any supplemental oxygen, h er SpO2 values remained > 93%, H/R 88, Respirations were 18 to 20. 05/11/17 1037 Oxygen Therapy O2 Device room air Home O2 eval performed? yes Resting on RA (%) 95 Exercising on RA (%) 97 Vitals Pulse 89 Resp 20 SpO2 98 % Carmelita Fulton, CONCRETE PRECAST MOULDER - 05/11/2017 1031 PSTAmy walked with me around the nurses sta tion [facility] without any supplemental oxygen on, her SpO2 value remained > 93%. No SOB observ ed pt denied when asked if she was SOB. H/R remained in low 80's, respirations 18 to 20. Narcisa Crouch MD - 05/10/2017 0723 PSTFormatting of this note may be different from t he original. [facility] PROGRESS NOTE Patient: Amy Coleman : 1955: Age: 61 y.o. MedRec: [id number] Admission date: 05/08/2017 Hospital day # : 2 Physician author: Narcisa Boone MD Today: 05/10/2017 Allergies: Allergies Allergen Reactions Amoxicillin Cephalexin Hydroxyzine Hcl Penicillins Ranitidine Hcl Current Medications: Current Facility-Administered Medications Medication Dose Route Frequency Provider Last Rate Last Dose acetaminophen (TYLENOL) tablet 650 mg 650 mg Oral Q4H PRN Narcisa Boone MD 650 mg at 05/09/17 0959 albuterol-ipratropium (DUONEB) 2.5-0.5 mg/3 mL nebulizer solution 3 mL 3 mL Nebulizati on RT Q6H Orlando Wall MD 3 mL at 05/10/17 0300 aluminum & magnesium hydroxide-simethicone (MAALOX PLUS REGULAR STRENGTH) 200-200-20 mg /5 mL suspension 30 mL 30 mL Oral Q4H PRN Narcisa Boone MD 30 mL at 05/08/17 185 5 aspirin chewable tablet 81 mg 81 mg Oral Daily Johnny Luther MD 81 mg at 05/09/17 0836 atorvaSTATin (LIPITOR) tablet 80 mg 80 mg Per OG Tube Nightly Orlando Wall MD 80 m g at 05/09/17 2101 azithromycin (ZITHROMAX) 500 mg in sodium chloride 0.9% 250 mL IVPB 500 mg Intravenous Daily Orlando Wall MD 255 mL/hr at 05/09/17 0836 500 mg at 05/09/17 0836 dextrose 50% injection 12.5 g 12.5 g Intravenous PRN Orlando Wall MD insulin lispro (humaLOG KWIKPEN) 100 units/mL injection (pen) 0-12 Units 0-12 Units Isaac bcutaneous 4x Daily WC and HS Orlando Wall MD 2 Units at 05/08/17 1629 lidocaine 1%-EPINEPHrine 1:100,000 injection 5 mL 5 mL Infiltration Once PRN Johnny Luther MD lisinopril (PRINIVIL, ZESTRIL) tablet 10 mg 10 mg Oral Daily Johnny Luther MD 10 mg at 05/09/17 1507 magnesium sulfate 2 g/50 mL IVPB 2 g 2 g Intravenous PRN Orlando Wall MD 25 mL/hr at 05/08/17 0807 2 g at 05/08/17 0807 And magnesium sulfate 4 g/100 mL IVPB 4 g 4 g Intravenous PRN Orlando Wall MD methylPREDNISolone sodium succinate (solu-MEDROL) 40 mg/mL injection 40 mg 40 mg Intra venous Daily Narcisa Boone MD nicotine (NICODERM) 21 mg/24 hr 1 patch 1 patch Transdermal Daily PRN Grace Brooks nitroglycerin (NITROSTAT) SL tablet 0.4 mg 0.4 mg Sublingual Q5 Min PRN Narcisa xiong MD 0.4 mg at 05/09/17 1149 ondansetron (ZOFRAN) injection 4 mg 4 mg Intravenous Q6H PRN Orlando Wlal MD 4 mg at 05/10/17 0251 oxyCODONE-acetaminophen (PERCOCET) 5-325 mg per tablet 1-2 tablet 1-2 tablet Oral Q4H PRN Orlando Wall MD 1 tablet at 05/10/17 0648 pantoprazole (PROTONIX) DR tablet 40 mg 40 mg Oral QAM AC Narcisa Boone MD 40 mg at 05/10/17 0648 potassium chloride (K-DUR) ER tablet 40-60 mEq 40-60 mEq Oral PRN Orlando Wall MD And potassium chloride 20 mEq/15 mL liquid 40-60 mEq 40-60 mEq Feeding Tube PRN Orlando bhandari MD 60 mEq at 05/08/17 0817 And potassium chloride 10 mEq in 100 mL IVPB 10 mEq Intravenous PRN Orlando Wall MD prochlorperazine (COMPAZINE) injection 10 mg 10 mg Intravenous Q6H PRN Orlando Wall MD 10 mg at 05/08/172056 propranolol (INDERAL) tablet 80 mg 80 mg Oral Daily Narcisa Boone MD 80 mg at 05/09/17 0959 sodium chloride 0.9% (NS) infusion Intravenous Continuous Orlando Wall MD 150 mL/hr at 05/10/17 0458 zolpidem (AMBIEN) tablet 5 mg 5 mg Oral Nightly PRN Orlando Wall MD 5 mg at 0227 Current Infusions: sodium chloride 0.9% 150 mL/hr at 05/10/17 0458 Objective Data Point of care glucose Recent Labs Lab 05/09/17 2105 05/09/17 1644 05/09/17 1141 05/09/17 0749 05/08/17 2138 05/08/17 1628 POCGLU 104 104 118* 112* 126* 157* Labs last 24 hours Recent Results (from the past 24 hour(s)) POC Glucose Collection Time: 05/09/17 7:49 Result Value Ref Range Glucose, POC 112 (H) 70 - 109 mg/dL PTT Collection Time: 05/09/17 9:16 Result Value Ref Range PTT 65 (H) 22 - 36 seconds ECG 12 lead Collection Time: 05/09/17 11:33 Result Value Ref Range VENTRICULAR RATE EKG 82 BPM ATRIAL RATE 82 BPM P-R INTERVAL 194 ms QRS DURATION 74 ms Q-T INTERVAL 366 ms Q-T INTERVAL (CORRECTED) 427 ms P WAVE AXIS 70 degrees QRS AXIS -38 degrees T AXIS 61 degrees INTERPRETATION TEXT Normal sinus rhythm Possible Left atrial enlargement Left axis deviation T wave abnormality, consider anterolateral ischemia Nonspecific T wave abnormality Lateral leads Abnormal ECG When compared with ECG of 08-MAY-2017 13:08, there is new T wave inversion in lead V3 and biphaasic T waves in leads V4-6 Confirmed by GEORGES HU, LUCIO ([id number]) on 05/10/2017 7:08:38 AM POC Glucose Collection Time: 05/09/17 11:41 Result Value Ref Range Glucose, POC 118 (H) 70 - 109 mg/dL POC Glucose Collection Time: 05/09/17 16:44 Result Value Ref Range Glucose, POC 104 70 - 109 mg/dL POC Glucose Collection Time: 05/09/17 21:05 Result Value Ref Range Glucose, POC 104 70 - 109 mg/dL Basic Metabolic Panel Collection Time: 05/10/17 3:35 Result Value Ref Range NA 138 136 - 149 mmol/L K 3.5 3.5 - 5.1 mmol/L CL 106 98 - 109 mmol/L CO2 24 24 - 31 mmol/L ANION GAP 8 3 - 16 mmol/L GLUCOSE 103 70 - 109 mg/dL BUN 7 7 - 18 mg/dL Creatinine, Serum/Plasma 0.59 (L) 0.60 - 1.30 mg/dL eGFR if not >60 >=60 mL/min/1.73m2 CALCIUM 8.3 8.3 - 10.5 mg/dL BUN/CREA 11.9 CBC no Differential Collection Time: 05/10/17 3:35 Result Value Ref Range WBC 17.9 (H) 4.0 - 11.0 K/uL RBC 4.21 3.70 - 5.20 M/uL Hgb 11.7 11.5 - 16.0 g/dL Hct 36.1 34.0 - 47.0 % MCV 85.8 83.0 - 101.0 fL MCH 27.8 (L) 28.0 - 35.0 pg MCHC 32.4 32.0 - 36.0 g/dL RDW-CV 13.1 <15.0 % Platelet Count 243 140 - 440 K/uL MPV 8.5 fL Magnesium Collection Time: 05/10/17 3:35 Result Value Ref Range MG 2.0 1.8 - 2.5 mg/dL Micro results Microbiology Results (72 hrs) Procedure Component Value Units Date/Time Culture, Blood [[id number]] (Normal) Collected: 05/08/17 0145 Order Status: Completed Lab Status: Preliminary result Updated: 05/08/17 140 Specimen: Blood from Line Culture No growth: Monitored continually by instrument for 5 days Culture, Blood [[id number]] (Normal) Collected: 05/08/17 0119 Order Status: Completed Lab Status: Preliminary result Updated: 05/08/17 140 Specimen: Blood from Peripheral Blood Culture No growth: Monitored continually by instrument for 5 days Culture, MRSA [[id number]] Collected: 05/08/17 0032 Order Status: Completed Lab Status: Final result Updated: 05/09/17 0822 Specimen: Respiratory from Nares Culture Negative for MRSA by chromogenic agar method 3+ Coagulase positive Staphylococcus Radiology results No results found. Vitals Ranges: Temp: [36.5 C (97.7 F)-37.3 C (99.1 F)] 37 C (98.6 F) Pulse: [58-105] 72 Resp: [12-28] 16 BP: (108-142)/(51-98) 134/73 Vitals: Temp: 37 C (98.6 F) BP: 134/73 Pulse: 72 Resp: 16 SpO2: 100 % SpO2 100 % on nasal cannula at flow rate 1L/min Subjective CC respiratory arrest Pt seen and examined at bedside. She reports feeling better than prior days. Denies any cur rent CP, unchanged SOB. No current abdominal symptoms. Winter in place, will be removed today - she reported using oxybutynin at home ROS See above Exam Constitutional: chronically ill woman in no acute distress HEENT: No conjunctivitis nor scleral icterus. Clear oropharynx. No adenopathy Cardiac: Normal S1 S2, regular, no murmur appreciated Lung: decreased breath sounds in all riggs, no wheezing, fair air entry Abdomen: + BS, Soft, NT, no HSM nor masses Psych: abnormal affect, AAOx3 Extremities: no edema in bilateral lower extremities Neuro: nonfocal. strength / Assessment and Plan Active Hospital Problems Diagnosis Respiratory failure with hypoxia and hypercapnia COPD (chronic obstructive pulmonary disease) Resolved Hospital Problems Diagnosis No resolved problems to display. 1. Acute hypercarbic hypoxic respiratory failure- per records patient with respiratory arre st requiring intubation on the field- this may be multifactorial- due to COPD exacerbation + NSTEMI - extubated 05/08 -continue Solu-medrol daily- switch to Prednisone tomorrow -duonebs q6 hours -continue Azithromycin day 05/16 -trend WBC and temp -RT twice per day -repeat CXR today prelim- no acute change -leukocytosis likely in setting of steroids, remains afebrile 2. NSTEMI-patient with rising troponin.- ? Is this is a type 2 due to hypoxia, although pt has multiple risks factors with long history of smoking, obesity, diabetes, she may have und erlying coronary artery disease. -LHC elevated LV end diastolic pressure, mild to mod proximal L circumflex stenosis. Mild l uminal disease in left main, LAD and RCA -Continue Lipitor, ASA, Propanolol. -Started on Lisinopril 10 mg -trop peaked at 3.93 -DC heparin gtt -Echo- akinesis of the mid to distal anterior septum and severe hypokinesis of the anterior and anterior apical segments with an overall ejection fraction of 40% -Cardiology consulted- appreciate recs -replete electrolytes 3. Diabetes mellitus type 2 -CC diet -Sliding scale insulin and glucose checks -consult nutrition 4. Essential Tremors -on propanolol 5. Current cigarette smoker -on Wellbutrin- restart today -strongly encourage to quit DVT Prophylaxis Heparin SC Code Status Full Code- per patient Dispo- transfer to medical with telemetry. Clinically improving, DC home next 24-48 hrs Narcisa Boone MD 05/10/2017 7:23 [facility] Portions of this chart may have been created with [employer] voice recognition software. Occasi onal wrong-word or sound-alike substitutions may have occurred due to the inherent lobo itations of voice recognition software. Please read the chart carefully and recognize, using context, where these substitutions have occurred Johnny Johnson MD - 05/09/2017 1441 PSTFormatting of this note may be different from the o riginal. PATIENT NAME: Amy Coleman : 1955: AGE: 61 y.o. ADMISSION DATE: 05/08/2017 HOSPITAL DAY NUMBER: 1 PRIMARY CARE: Bry Vaughn DO CARDIOLOGY PROGRESS NOTE Patient remains chest pain-free. The patient was found to have no angiographically signifi cant coronary artery stenoses today. She does have moderate proximal left circumflex diseas e. The patient does have significant anterior apical and anteroseptal wall motion abnormali ty on her echocardiogram with moderate left ventricular systolic dysfunction. I recommend i nitiation of DONOVAN inhibitor and and continuation of beta meena therapy. The patient takes propranolol at home for essential tremor. MEDICATIONS: Current Facility-Administered Medications Medication Dose Route Frequency Provider Last Rate Last Dose acetaminophen (TYLENOL) tablet 650 mg 650 mg Oral Q4H PRN Narcisa Boone MD 650 mg at 05/09/17 0959 albuterol-ipratropium (DUONEB) 2.5-0.5 mg/3 mL nebulizer solution 3 mL 3 mL Nebulizati on RT Q6H Orlando Wall MD 3 mL at 05/09/17 0802 aluminum & magnesium hydroxide-simethicone (MAALOX PLUS REGULAR STRENGTH) 200-200-20 mg /5 mL suspension 30 mL 30 mL Oral Q4H PRN Narcisa Boone MD 30 mL at 05/08/17 185 5 aspirin chewable tablet 81 mg 81 mg Oral Daily Johnny Luther MD 81 mg at 05/09/17 0836 atorvaSTATin (LIPITOR) tablet 80 mg 80 mg Per OG Tube Nightly Orlando Wall MD 80 m g at 05/08/17 2259 azithromycin (ZITHROMAX) 500 mg in sodium chloride 0.9% 250 mL IVPB 500 mg Intravenous Daily Orlando Wall MD 255 mL/hr at 05/09/17 0836 500 mg at 05/09/17 0836 dextrose 50% injection 12.5 g 12.5 g Intravenous PRN Orlando Wall MD heparin 1,000 units/mL injection 2,000-5,000 Units 2,000-5,000 Units Intravenous PRN S tina Wall MD 2,000 Units at 05/08/17 2131 heparin in half-normal saline 50 units/mL infusion 0-3,000 Units/hr Intravenous Titrat ed Orlando Wall MD 14 mL/hr at 05/08/17 2130 700 Units/hr at 05/08/17 2130 insulin lispro (humaLOG KWIKPEN) 100 units/mL injection (pen) 0-12 Units 0-12 Units Isaac bcutaneous 4x Daily WC and HS Orlando Wall MD 2 Units at 05/08/17 1629 lidocaine 1%-EPINEPHrine 1:100,000 injection 5 mL 5 mL Infiltration Once PRN Johnny Luther MD lisinopril (PRINIVIL, ZESTRIL) tablet 10 mg 10 mg Oral Daily Johnny Luther MD magnesium sulfate 2 g/50 mL IVPB 2 g 2 g Intravenous PRN Orlando Wall MD 25 mL/hr at 05/08/17 0807 2 g at 05/08/17 0807 And magnesium sulfate 4 g/100 mL IVPB 4 g 4 g Intravenous PRN Orlando Wall MD methylPREDNISolone sodium succinate (solu-MEDROL) 40 mg/mL injection 40 mg 40 mg Intra venous 3 times per day Narcisa Boone MD nicotine (NICODERM) 21 mg/24 hr 1 patch 1 patch Transdermal Daily PRN Grace Brooks nitroglycerin (NITROSTAT) SL tablet 0.4 mg 0.4 mg Sublingual Q5 Min PRN Narcisa xiong MD 0.4 mg at 05/09/17 1149 ondansetron (ZOFRAN) injection 4 mg 4 mg Intravenous Q6H PRN Orlando Wall MD 4 mg at 05/09/17 0952 pantoprazole (PROTONIX) injection 40 mg 40 mg Intravenous Daily Orlando Wall MD 40 mg at 05/09/17 0846 potassium chloride (K-DUR) ER tablet 40-60 mEq 40-60 mEq Oral PRN Orlando Wall MD And potassium chloride 20 mEq/15 mL liquid 40-60 mEq 40-60 mEq Feeding Tube PRN Orlando bhandari MD 60 mEq at 05/08/17 0817 And potassium chloride 10 mEq in 100 mL IVPB 10 mEq Intravenous PRN Orlando Wall MD prochlorperazine (COMPAZINE) injection 10 mg 10 mg Intravenous Q6H PRN Orlando Wall MD 10 mg at 05/08/17 205 propranolol (INDERAL) tablet 80 mg 80 mg Oral Daily Narcisa Boone MD 80 mg at 05/09/17 0959 sodium chloride 0.9% (NS) infusion Intravenous Continuous Orlando Wall MD 150 mL/hr at 05/09/17 0553 zolpidem (AMBIEN) tablet 5 mg 5 mg Oral Nightly PRN Orlando Wall MD 5 mg at 0227 ALLERGIES Allergies Allergen Reactions Amoxicillin Cephalexin Hydroxyzine Hcl Penicillins Ranitidine Hcl PHYSICAL EXAM Vital signs: Vitals: 05/09/17 1156 BP: 135/88 Pulse: 87 Resp: 15 Temp: Admit Weight: Weight: 61.5 kg (135 lb 9.3 oz) Current weight: Weight: 62.2 kg (137 lb 2 oz) Body mass index is 23.54 kg/m. General: Alert, in no distress Chest: Clear Cardiovascular: Regular rhythm, no S3, jugular venous pressure normal Gastrointestinal: Abdomen soft, non-tender, normal bowel sounds Extremities: No edema Neuro: within normal LABS: Admission on 05/08/2017 Component Date Value Ref Range Status Culture 05/08/2017 Negative for MRSA by chromogenic agar method Final Culture 05/08/2017 3+ Coagulase positive Staphylococcus Final MG 05/08/2017 1.9 1.8 - 2.5 mg/dL Final NA 05/08/2017 137 136 - 149 mmol/L Final K 05/08/2017 3.4* 3.5 - 5.1 mmol/L Final CL 05/08/2017 104 98 - 109 mmol/L Final CO2 05/08/2017 25 24 - 31 mmol/L Final ANION GAP 05/08/2017 8 3 - 16 mmol/L Final GLUCOSE 05/08/2017 136* 70 - 109 mg/dL Final BUN 05/08/2017 5* 7 - 18 mg/dL Final Creatinine, Serum/Plasma 05/08/2017 0.69 0.60 - 1.30 mg/dL Final eGFR if not 05/08/2017 >60 >=60 mL/min/1.73m2 Final CALCIUM 05/08/2017 7.9* 8.3 - 10.5 mg/dL Final BUN/CREA 05/08/2017 7.2 Final WBC 05/08/2017 14.6* 4.0 - 11.0 K/uL Final RBC 05/08/2017 4.79 3.70 - 5.20 M/uL Final Hgb 05/08/2017 13.3 11.5 - 16.0 g/dL Final Hct 05/08/2017 40.9 34.0 - 47.0 % Final MCV 05/08/2017 85.4 83.0 - 101.0 fL Final MCH 05/08/2017 27.8* 28.0 - 35.0 pg Final MCHC 05/08/2017 32.6 32.0 - 36.0 g/dL Final RDW-CV 05/08/2017 13.3 <15.0 % Final Platelet Count 05/08/2017 277 140 - 440 K/uL Final MPV 05/08/2017 8.5 fL Final Culture 05/08/2017 No growth: Monitored continually by instrument for 5 days Prelimin belkis Culture 05/08/2017 No growth: Monitored continually by instrument for 5 days Prelimin belkis Troponin I 05/08/2017 2.91* <0.06 ng/mL Final Troponin I 05/08/2017 3.93* <0.06 ng/mL Final Troponin I 05/08/2017 2.73* <0.06 ng/mL Final Troponin I 05/08/2017 2.58* <0.06 ng/mL Final Specimen Source 05/08/2017 Artery Final pH, POC 05/08/2017 7.291* 7.3 - 7.45 Final HCO3, POC 05/08/2017 26.5 21.0 - 28.0 mmol/L Final TCO2, POC 05/08/2017 28.2 22.0 - 29.0 mmol/L Final Base Excess, POC 05/08/2017 -1.0 -2.0 - 3.0 mmol/L Final Base Excess, Extracellular fluid, * 05/08/2017 -0.1 -2.0 - 3.0 mmol/L Final O2 Sat, POC 05/08/2017 98 90 - 100 % Final PCO2, POC 05/08/2017 55.1* 35.0 - 45 mmHg Final PO2, POC 05/08/2017 111.7 60 - 750.0 mmHg Final LACTATE 05/08/2017 3.1* 0.5 - 2.2 mmol/L Final VENTRICULAR RATE EKG 05/08/2017 91 BPM Final ATRIAL RATE 05/08/2017 91 BPM Final P-R INTERVAL 05/08/2017 160 ms Final QRS DURATION 05/08/2017 78 ms Final Q-T INTERVAL 05/08/2017 406 ms Final Q-T INTERVAL (CORRECTED) 05/08/2017 499 ms Final P WAVE AXIS 05/08/2017 69 degrees Final QRS AXIS 05/08/2017 11 degrees Final T AXIS 05/08/2017 61 degrees Final INTERPRETATION TEXT 05/08/2017 Final Value:Normal sinus rhythm Nonspecific ST abnormality Prolonged QTc Abnormal ECG No previous ECGs available Confirmed by GEORGES HU, LUCIO ([id number]) on 05/08/2017 8:24:47 AM LVEF-TTE TRANSTHORACIC ECHO 05/08/2017 44 Final PTT 05/08/2017 26 22 - 36 seconds Final PTT 05/08/2017 189* 22 - 36 seconds Final LACTATE 05/08/2017 1.4 0.5 - 2.2 mmol/L Final Protime 05/08/2017 13.9 11.3 - 13.9 seconds Final INR 05/08/2017 1.08 0.90 - 1.10 Final Glucose, POC 05/08/2017 127* 70 - 109 mg/dL Final K 05/08/2017 4.1 3.5 - 5.1 mmol/L Final VENTRICULAR RATE EKG 05/08/2017 88 BPM Final ATRIAL RATE 05/08/2017 88 BPM Final P-R INTERVAL 05/08/2017 174 ms Final QRS DURATION 05/08/2017 72 ms Final Q-T INTERVAL 05/08/2017 382 ms Final Q-T INTERVAL (CORRECTED) 05/08/2017 462 ms Final P WAVE AXIS 05/08/2017 51 degrees Final QRS AXIS 05/08/2017 -13 degrees Final T AXIS 05/08/2017 52 degrees Final INTERPRETATION TEXT 05/08/2017 Final Value:Normal sinus rhythm Nonspecific T wave abnormality Lateral leads When compared with ECG of 08-MAY-2017 02:50, QTc has decreased in duration T wave amplitude has decreased in in lead I T wave is now inverted in lead V2 Confirmed by LUCIO SU MD ([id number]) on 05/09/2017 7:21:00 AM MG 05/08/2017 2.3 1.8 - 2.5 mg/dL Final Glucose, POC 05/08/2017 116* 70 - 109 mg/dL Final PTT 05/08/2017 99* 22 - 36 seconds Final Hgb 05/08/2017 13.1 11.5 - 16.0 g/dL Final Hct 05/08/2017 40.3 34.0 - 47.0 % Final Specimen Source 05/08/2017 Artery Final pH, POC 05/08/2017 7.341 7.3 - 7.45 Final HCO3, POC 05/08/2017 24.2 21.0 - 28.0 mmol/L Final TCO2, POC 05/08/2017 25.5 22.0 - 29.0 mmol/L Final Base Excess, POC 05/08/2017 -1.8 -2.0 - 3.0 mmol/L Final Base Excess, Extracellular fluid, * 05/08/2017 -1.6 -2.0 - 3.0 mmol/L Final O2 Sat, POC 05/08/2017 96 90 - 100 % Final PCO2, POC 05/08/2017 44.7 35.0 - 45 mmHg Final PO2, POC 05/08/2017 85.7 60 - 750.0 mmHg Final PTT 05/08/2017 30 22 - 36 seconds Final PTT 05/08/2017 53* 22 - 36 seconds Final Glucose, POC 05/08/2017 157* 70 - 109 mg/dL Final Troponin I 05/09/2017 1.88* <0.06 ng/mL Final WBC 05/09/2017 20.2* 4.0 - 11.0 K/uL Final RBC 05/09/2017 4.25 3.70 - 5.20 M/uL Final Hgb 05/09/2017 11.8 11.5 - 16.0 g/dL Final Hct 05/09/2017 36.5 34.0 - 47.0 % Final MCV 05/09/2017 85.9 83.0 - 101.0 fL Final MCH 05/09/2017 27.8* 28.0 - 35.0 pg Final MCHC 05/09/2017 32.3 32.0 - 36.0 g/dL Final RDW-CV 05/09/2017 13.5 <15.0 % Final Platelet Count 05/09/2017 239 140 - 440 K/uL Final MPV 05/09/2017 8.8 fL Final % Neutrophils 05/09/2017 88.8* 45.0 - 82.0 % Final % Lymphocytes 05/09/2017 6.5* 20.0 - 45.0 % Final % Monocytes 05/09/2017 4.5 4.0 - 12.0 % Final % Eosinophils 05/09/2017 0.0 0.0 - 5.0 % Final % Basophils 05/09/2017 0.2 0.0 - 1.0 % Final Absolute Neutrophils 05/09/2017 18.00* 1.80 - 8.50 K/uL Final Absolute Lymphocytes 05/09/2017 1.30 0.60 - 3.20 K/uL Final Absolute Monocytes 05/09/2017 0.90 0.00 - 1.00 K/uL Final Absolute Eosinophils 05/09/2017 0.00 0.00 - 0.40 K/uL Final Absolute Basophils 05/09/2017 0.00 0.00 - 0.10 K/uL Final NA 05/09/2017 143 136 - 149 mmol/L Final K 05/09/2017 4.3 3.5 - 5.1 mmol/L Final CL 05/09/2017 113* 98 - 109 mmol/L Final CO2 05/09/2017 22* 24 - 31 mmol/L Final ANION GAP 05/09/2017 8 3 - 16 mmol/L Final GLUCOSE 05/09/2017 137* 70 - 109 mg/dL Final BUN 05/09/2017 7 7 - 18 mg/dL Final Creatinine, Serum/Plasma 05/09/2017 0.53* 0.60 - 1.30 mg/dL Final eGFR if not 05/09/2017 >60 >=60 mL/min/1.73m2 Final CALCIUM 05/09/2017 8.0* 8.3 - 10.5 mg/dL Final ALBUMIN 05/09/2017 3.4 3.2 - 5.0 g/dL Final BILIRUBIN TOTAL 05/09/2017 0.9 0.1 - 1.5 mg/dL Final Total protein 05/09/2017 5.4* 6.0 - 7.8 g/dL Final AST 05/09/2017 43* 10 - 42 U/L Final ALT 05/09/2017 22 6 - 45 U/L Final ALK PHOS 05/09/2017 58 40 - 110 U/L Final GLOBULIN 05/09/2017 2.0* 2.1 - 3.8 g/dL Final Albumin/Globulin ratio 05/09/2017 1.7 0.8 - 2.0 Final BUN/CREA 05/09/2017 13.2 Final MG 05/09/2017 2.2 1.8 - 2.5 mg/dL Final Protime 05/09/2017 13.4 11.3 - 13.9 seconds Final INR 05/09/2017 1.03 0.90 - 1.10 Final PTT 05/09/2017 85* 22 - 36 seconds Final Glucose, POC 05/08/2017 126* 70 - 109 mg/dL Final PTT 05/09/2017 65* 22 - 36 seconds Final Glucose, POC 05/09/2017 112* 70 - 109 mg/dL Final INTERPRETATION TEXT 05/09/2017 Not Confirmed Preliminary Glucose, POC 05/09/2017 118* 70 - 109 mg/dL Final IMAGING: Xr Chest Ap Portable Result Date: 05/08/2017 XR CHEST AP PORTABLE 05/08/2017 12:32 AM HISTORY: intubation. COMPARISON: None. Findings: He art is normal in size. Lungs are clear and no evidence of pneumothorax or pleural effusion. Borderline/subtle bilateral suprahilar areas of interstitial fullness and questionable perib ronchial wall thickening. Bones and soft tissues demonstrate no acute abnormality. NG tube t ip courses into the gastric body with the tip terminating in the gastric fundus. Multilevel thoracic spondylosis. IMPRESSION - Endotracheal tube terminates in the mid/distal intrathora cic trachea, approximately 2.7 cm in the luis alberto. Borderline slight peribronchial wall thicke ana in bilateral suprahilar regions, nonspecific with subtle infectious or inflammatory monty ology considered in the appropriate clinical setting. Dictated and Signed by: Haider Hernandez MD Electronically signed: 05/08/2017 12:37 PM DIAGNOSES AND ASSESSMENTS: 1. Acute non-ST elevation myocardial infarction in setting of acute respiratory failure: Clint steele with evidence of old anterior septal anterior myocardial infarction with moderate left jugular systolic dysfunction. Patient has no angiographically significant coronary stenose s found today. I recommend low-dose aspirin, DONOVAN inhibitor beta meena and statin therapy. PLAN OR RECOMMENDATIONS: Add lisinopril 10 mg daily, continue low-dose aspirin, propranolol, and atorvastatin Whole food plant-based diet No further cardiac workup planned at this time Home blood pressure monitoring I appreciate the opportunity of participating in the care of this patient. Johnny Johnson MD, 05/09/2017 14:41 Narcisa Sanchez MD - 05/09/2017 0718 PSTFormatting of this note may be different fr om the original. [place], [place] HOSPITALIST PROGRESS NOTE Patient: Amy Coleman : 1955: Age: 61 y.o. MedRec: [id number] Admission date: 05/08/2017 Hospital day # : 1 Physician author: Narcisa Boone MD Today: 05/09/2017 Allergies: Allergies Allergen Reactions Amoxicillin Cephalexin Hydroxyzine Hcl Penicillins Ranitidine Hcl Current Medications: Current Facility-Administered Medications Medication Dose Route Frequency Provider Last Rate Last Dose acetaminophen (TYLENOL) tablet 650 mg 650 mg Oral Q4H PRN Narcisa Boone MD 650 mg at 05/09/17 0553 albuterol-ipratropium (DUONEB) 2.5-0.5 mg/3 mL nebulizer solution 3 mL 3 mL Nebulizati on RT Q6H Orlando Wall MD 3 mL at 05/09/17 0600 aluminum & magnesium hydroxide-simethicone (MAALOX PLUS REGULAR STRENGTH) 200-200-20 mg /5 mL suspension 30 mL 30 mL Oral Q4H PRN Narcisa Boone MD 30 mL at 05/08/17 185 5 aspirin chewable tablet 81 mg 81 mg Oral Daily Johnny Luther MD 81 mg at 05/08/17 2102 atorvaSTATin (LIPITOR) tablet 80 mg 80 mg Per OG Tube Nightly Orlando Wall MD 80 m g at 05/08/17 2259 azithromycin (ZITHROMAX) 500 mg in sodium chloride 0.9% 250 mL IVPB 500 mg Intravenous Daily Orlando Wall MD 255 mL/hr at 05/08/17 0852 500 mg at 05/08/17 0852 dextrose 50% injection 12.5 g 12.5 g Intravenous PRN Orlando Wall MD fentaNYL (PF) 5 mcg/mL in sodium chloride 0.9% 250 mL infusion 25-250 mcg/hr Intraveno us Titrated Orlando Wlal MD Stopped at 05/08/17 1433 heparin 1,000 units/mL injection 2,000-5,000 Units 2,000-5,000 Units Intravenous PRN S tina Wall MD 2,000 Units at 05/08/17 2131 heparin in half-normal saline 50 units/mL infusion 0-3,000 Units/hr Intravenous Titrat ed Orlando Wall MD 14 mL/hr at 05/08/17 2130 700 Units/hr at 05/08/17 2130 insulin lispro (humaLOG KWIKPEN) 100 units/mL injection (pen) 0-12 Units 0-12 Units Isaac bcutaneous 4x Daily WC and HS Orlando Wall MD 2 Units at 05/08/17 1629 magnesium sulfate 2 g/50 mL IVPB 2 g 2 g Intravenous PRN Orlando Wall MD 25 mL/hr at 05/08/17 0807 2 g at 05/08/17 0807 And magnesium sulfate 4 g/100 mL IVPB 4 g 4 g Intravenous PRN Orlando Wall MD methylPREDNISolone sodium succinate (solu-MEDROL) 62.5 mg/mL injection 60 mg 60 mg Int ravenous 3 times per day Orlando Wall MD 60 mg at 05/09/17 0555 nicotine (NICODERM) 21 mg/24 hr 1 patch 1 patch Transdermal Daily PRN Grace Brooks ondansetron (ZOFRAN) injection 4 mg 4 mg Intravenous Q6H PRN Orlando Wall MD 4 mg at 05/09/17 0206 pantoprazole (PROTONIX) injection 40 mg 40 mg Intravenous Daily Orlando Wall MD 40 mg at 05/08/17 0817 potassium chloride (K-DUR) ER tablet 40-60 mEq 40-60 mEq Oral PRN Orlando Wall MD And potassium chloride 20 mEq/15 mL liquid 40-60 mEq 40-60 mEq Feeding Tube PRN Orlando bhandari MD 60 mEq at 05/08/17 08 And potassium chloride 10 mEq in 100 mL IVPB 10 mEq Intravenous PRN Orlando Wall MD prochlorperazine (COMPAZINE) injection 10 mg 10 mg Intravenous Q6H PRN Orlando Wall MD 10 mg at 05/08/17 205 propofol infusion (DIPRIVAN) 10 mg/mL infusion 5-100 mcg/kg/min Intravenous Titrated S tina Wall MD Stopped at 05/08/17 1415 propranolol (INDERAL) tablet 80 mg 80 mg Oral Daily Narcisa Boone MD 80 mg at 05/08/17 1616 sodium chloride 0.9% (NS) infusion Intravenous [employer] Johnny Luther MD sodium chloride 0.9% (NS) infusion Intravenous Continuous Orlando Wall MD 150 mL/hr at 05/09/17 0553 zolpidem (AMBIEN) tablet 5 mg 5 mg Oral Nightly PRN Orlando Wall MD 5 mg at 0227 Current Infusions: fentaNYL Stopped (05/08/17 1433) heparin infusion 700 Units/hr (05/08/17 2130) propofol infusion Stopped (05/08/17 1415) sodium chloride 0.9% 150 mL/hr at 05/09/17 0553 Objective Data Point of care glucose Recent Labs Lab 05/08/17 2138 05/08/17 1628 05/08/17 1141 05/08/17 0842 POCGLU 126* 157* 116* 127* Labs last 24 hours Recent Results (from the past 24 hour(s)) POC Glucose Collection Time: 05/08/17 8:42 Result Value Ref Range Glucose, POC 127 (H) 70 - 109 mg/dL ECHO Complete Collection Time: 02/25/18 9:59 Result Value Ref Range LVEF-TTE TRANSTHORACIC ECHO 44 PTT Collection Time: 05/08/17 10:41 Result Value Ref Range PTT 189 (HH) 22 - 36 seconds Protime INR Collection Time: 05/08/17 10:41 Result Value Ref Range Protime 13.9 11.3 - 13.9 seconds INR 1.08 0.90 - 1.10 POC Glucose Collection Time: 05/08/17 11:41 Result Value Ref Range Glucose, POC 116 (H) 70 - 109 mg/dL Troponin I Collection Time: 05/08/17 12:50 Result Value Ref Range Troponin I 2.73 (HH) <0.06 ng/mL Potassium Collection Time: 05/08/17 12:50 Result Value Ref Range K 4.1 3.5 - 5.1 mmol/L Magnesium Collection Time: 05/08/17 12:50 Result Value Ref Range MG 2.3 1.8 - 2.5 mg/dL PTT Collection Time: 05/08/17 12:50 Result Value Ref Range PTT 99 (H) 22 - 36 seconds Hemoglobin and Hematocrit Collection Time: 05/08/17 12:50 Result Value Ref Range Hgb 13.1 11.5 - 16.0 g/dL Hct 40.3 34.0 - 47.0 % ECG 12 lead Collection Time: 05/08/17 13:08 Result Value Ref Range INTERPRETATION TEXT Not Confirmed POC Blood Gases Collection Time: 05/08/17 13:30 Result Value Ref Range Specimen Source Artery pH, POC 7.341 7.3 - 7.45 HCO3, POC 24.2 21.0 - 28.0 mmol/L TCO2, POC 25.5 22.0 - 29.0 mmol/L Base Excess, POC -1.8 -2.0 - 3.0 mmol/L Base Excess, Extracellular fluid, POC -1.6 -2.0 - 3.0 mmol/L O2 Sat, POC 96 90 - 100 % PCO2, POC 44.7 35.0 - 45 mmHg PO2, POC 85.7 60 - 750.0 mmHg PTT Collection Time: 05/08/17 14:06 Result Value Ref Range PTT 30 22 - 36 seconds POC Glucose Collection Time: 05/08/17 16:28 Result Value Ref Range Glucose, POC 157 (H) 70 - 109 mg/dL Troponin I Collection Time: 05/08/17 18:55 Result Value Ref Range Troponin I 2.58 (HH) <0.06 ng/mL PTT Collection Time: 05/08/17 20:43 Result Value Ref Range PTT 53 (H) 22 - 36 seconds POC Glucose Collection Time: 05/08/17 21:38 Result Value Ref Range Glucose, POC 126 (H) 70 - 109 mg/dL Troponin I Collection Time: 05/09/17 1:12 Result Value Ref Range Troponin I 1.88 (HH) <0.06 ng/mL CBC with Differential Collection Time: 05/09/17 3:07 Result Value Ref Range WBC 20.2 (H) 4.0 - 11.0 K/uL RBC 4.25 3.70 - 5.20 M/uL Hgb 11.8 11.5 - 16.0 g/dL Hct 36.5 34.0 - 47.0 % MCV 85.9 83.0 - 101.0 fL MCH 27.8 (L) 28.0 - 35.0 pg MCHC 32.3 32.0 - 36.0 g/dL RDW-CV 13.5 <15.0 % Platelet Count 239 140 - 440 K/uL MPV 8.8 fL % Neutrophils 88.8 (H) 45.0 - 82.0 % % Lymphocytes 6.5 (L) 20.0 - 45.0 % % Monocytes 4.5 4.0 - 12.0 % % Eosinophils 0.0 0.0 - 5.0 % % Basophils 0.2 0.0 - 1.0 % Absolute Neutrophils 18.00 (H) 1.80 - 8.50 K/uL Absolute Lymphocytes 1.30 0.60 - 3.20 K/uL Absolute Monocytes 0.90 0.00 - 1.00 K/uL Absolute Eosinophils 0.00 0.00 - 0.40 K/uL Absolute Basophils 0.00 0.00 - 0.10 K/uL Comprehensive Metabolic Panel Collection Time: 05/09/17 3:07 Result Value Ref Range NA 143 136 - 149 mmol/L K 4.3 3.5 - 5.1 mmol/L CL 113 (H) 98 - 109 mmol/L CO2 22 (L) 24 - 31 mmol/L ANION GAP 8 3 - 16 mmol/L GLUCOSE 137 (H) 70 - 109 mg/dL BUN 7 7 - 18 mg/dL Creatinine, Serum/Plasma 0.53 (L) 0.60 - 1.30 mg/dL eGFR if not >60 >=60 mL/min/1.73m2 CALCIUM 8.0 (L) 8.3 - 10.5 mg/dL ALBUMIN 3.4 3.2 - 5.0 g/dL BILIRUBIN TOTAL 0.9 0.1 - 1.5 mg/dL Total protein 5.4 (L) 6.0 - 7.8 g/dL AST 43 (H) 10 - 42 U/L ALT 22 6 - 45 U/L ALK PHOS 58 40 - 110 U/L GLOBULIN 2.0 (L) 2.1 - 3.8 g/dL Albumin/Globulin ratio 1.7 0.8 - 2.0 BUN/CREA 13.2 Magnesium Collection Time: 05/09/17 3:07 Result Value Ref Range MG 2.2 1.8 - 2.5 mg/dL Protime INR Collection Time: 05/09/17 3:07 Result Value Ref Range Protime 13.4 11.3 - 13.9 seconds INR 1.03 0.90 - 1.10 PTT Collection Time: 05/09/17 3:07 Result Value Ref Range PTT 85 (H) 22 - 36 seconds Micro results Microbiology Results (72 hrs) Procedure Component Value Units Date/Time Culture, Blood [[id number]] (Normal) Collected: 05/08/17 0145 Order Status: Completed Lab Status: Preliminary result Updated: 05/08/171400 Specimen: Blood from Line Culture No growth: Monitored continually by instrument for 5 days Culture, Blood [[id number]] (Normal) Collected: 05/08/17 0119 Order Status: Completed Lab Status: Preliminary result Updated: 05/08/171400 Specimen: Blood from Peripheral Blood Culture No growth: Monitored continually by instrument for 5 days Culture, MRSA [[id number]] Collected: 05/08/1731 Order Status: Sent Lab Status: In process Updated: 05/08/1733 Specimen: Respiratory from Nares Radiology results Xr Chest Ap Portable Result Date: 05/08/2017 XR CHEST AP PORTABLE 05/08/2017 12:32 AM HISTORY: intubation. COMPARISON: None. Findings: He art is normal in size. Lungs are clear and no evidence of pneumothorax or pleural effusion. Borderline/subtle bilateral suprahilar areas of interstitial fullness and questionable perib ronchial wall thickening. Bones and soft tissues demonstrate no acute abnormality. NG tube t ip courses into the gastric body with the tip terminating in the gastric fundus. Multilevel thoracic spondylosis. IMPRESSION - Endotracheal tube terminates in the mid/distal intrathora cic trachea, approximately 2.7 cm in the luis alberto. Borderline slight peribronchial wall thicke ana in bilateral suprahilar regions, nonspecific with subtle infectious or inflammatory monty ology considered in the appropriate clinical setting. Dictated and Signed by: Haider Hernandez MD Electronically signed: 05/08/2017 12:37 PM Vitals Ranges: Temp: [36.9 C (98.4 F)-37.5 C (99.5 F)] 37 C (98.6 F) Pulse: [81-107] 105 Resp: [11-25] 20 BP: (93-141)/(57-95) 129/69 Vitals: Temp: 37 C (98.6 F) BP: 129/69 Pulse: 105 Resp: 20 SpO2: 96 % SpO2 96 % on nasal cannula at flow rate 1L/min Subjective CC respiratory arrest Pt seen and examined at bedside. She reports feeling malaise with shortness of breath (slimer marla - not worse than baseline), headache (which she attributes to lack of caffeine) and back pain from the bed. She reports cough with sputum production, again not unchanged. Currently there is no chest pain, palpitations, no N/V/abdominal pain. Winter in place. ROS See above Exam Constitutional: chronically ill woman in no acute distress HEENT: No conjunctivitis nor scleral icterus. Clear oropharynx. No adenopathy Cardiac: Normal S1 S2, regular, no murmur appreciated Lung: decreased breath sounds in all riggs, coarse sounds diffusely Abdomen: + BS, Soft, NT, no HSM nor masses Psych: abnormal affect, AAOx3 Extremities: no edema in bilateral lower extremities Neuro: nonfocal. strength 5/5 Assessment and Plan Active Hospital Problems Diagnosis Respiratory failure with hypoxia and hypercapnia COPD (chronic obstructive pulmonary disease) Resolved Hospital Problems Diagnosis No resolved problems to display. 1. Acute hypercarbic hypoxic respiratory failure- per records patient with respiratory arre st requiring intubation on the field- this may be multifactorial- due to COPD exacerbation + NSTEMI - extubated 05/08 -continue Solu-medrol -duonebs q6 hours -continue Azithromycin -trend WBC and temp -RT twice per day -repeat CXR tomorrow -trend WBC and temp- worsening leukocytosis, remains afebrile 2. NSTEMI-patient with rising troponin.- ? Is this is a type 2 due to hypoxia, although pt has multiple risks factors with long history of smoking, obesity, diabetes, she may have und erlying coronary artery disease. -Continue heparin gtt for 48 hours- hold prior to cath -NPO PMN for LHC -Continue Lipitor and asa. -will adjust BB prior to discharge -Start ACEI tomorrow if renal function remains stable -trop peaked at 3.93 -Echo- akinesis of the mid to distal anterior septum and severe hypokinesis of the anterior and anterior apical segments with an overall ejection fraction of 40% -Cardiology consulted- appreciate recs -replete electrolytes 3. Diabetes mellitus type 2 -Sliding scale insulin -IVF -consult nutrition 4. Essential Tremors -on propanolol 5. Current cigarette smoker -on Wellbutrin- restart post cath DVT Prophylaxis Heparin gtt Code Status Full Code- per patient Dispo- will monitor in Stepdown next 24 hours as she will undergo diagnostic coronary arter iography with possible PCI Narcisa Boone MD 05/09/2017 7:18 [facility] Portions of this chart may have been created with Seeonic voice recognition software. Occasi onal wrong-word or sound-alike substitutions may have occurred due to the inherent lobo itations of voice recognition software. Please read the chart carefully and recognize, using context, where these substitutions have occurred Светлана Mendoza, PharmD - 05/08/2017 1537 PSTFormatting of this note may be different from the original. PHARMACY SERVICES: ADMISSION MEDICATION REVIEW Amy Coleman is a 61 y.o. female admitted on 05/08/17. Patient is a reliable historian. Location of Patient when reviewed: ED X Medical Floor Patient s prior to admit medication and over the counter (OTC) medications/herbal supplem ents list obtained from: X Verbal interview X Patient ABLE to recall name, strength, and directions X Patient/family member provided a complete current medication list or bottles X Pharmacy list names: [facility] [place] X Outside Information Vaccines up to date? Yes No Unsure Influenza x Pneumococcal x Tdap x Shingles x Noted medications discrepancies or medication-related issues: Dosage change: Medication: Prior to Admission Sig: Correct sig: Oxybutynin 5 mg tab 1 tab by mouth three times daily 1 tab by mouth twice daily Medication added: Medication: Prior to Admission Sig: Umeclidinium 62.5 mcg/puff inh 1 puff into the lungs daily Albuterol 90 mcg/puff inh 2 puffs into the lungs every 4 hours as needed Multiple vitamin tab 1 tab by mouth daily Ibuprofen 200 mg tab 1 tab by mouth every morning Carboxymethylcellulose 0.25% ophth nanci 1 drop into both eyes every hour as needed for dry e yes (patient uses daily) Removed therapy: Medication: Prior to Admission Sig: Reason for Removal: Albuterol 1.25 mg/3 mL neb nanci 1 amp by nebulization every 6 hours as needed for wheezing I ncorrect entry Recreational Substances , Tobacco & Alcohol use : Drug: Route Frequency: Last Used: Tobacco Smoke 0.5 pack per week Marijuana smoke Daily 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 Taking atorvaSTATin (LIPITOR) 40 mg tablet Take 40 mg by mouth nightly. Taking buPROPion (WELLBUTRIN SR) 150 mg 12 hr tablet Take 150 mg by mouth 2 times daily. Taking carboxymethylcellulose (THERATEARS) 0.25% ophthalmic solution Place 1 drop into both eyes every hour as needed for Dry Eyes. Taking ibuprofen (ADVIL, MOTRIN) 200 mg tablet Take 200 mg by mouth every morning. Taking Multiple Vitamins-Minerals (SENIOR MULTIVITAMIN PLUS) TABS Take 1 tablet by mouth Daily. T mehdi nitroglycerin (NITROSTAT) 0.[address] 0.4 mg under the tongue every 5 minutes a s needed for Chest pain. Taking oxybutynin (DITROPAN) 5 mg tablet Take 5 mg by mouth 2 times daily. Taking propranolol (INDERAL) 80 mg tablet Take 80 mg by mouth Daily. For tremors Taking umeclidinium (INCRUSE ELLIPTA) 62.5 mcg/puff inhaler Inhale 1 puff into the lungs Daily. Nima harding Medication review performed and electronically signed by Yolanda Grullon, Food Storeroom Clerk 15:16 Reviewed by Светлана Mendoza, Charley 05/08/2017 15:28 Lavinia Lo Beef Cattle Specialist - 05/08/2017 0826 PST Spiritual Care Amy Coleman is a 61 y.o. female who is admitted for Respiratory failure ([facility]) [J96.90]. Spiritual Assessment: Patient was intubated at the time of visit. Zvjywipr-mg-wqq, Raciel, was present and she reported that she is very close to the patient. She and the patient has discussed EOL toget her in the Oiaynwqu-bp-aag is hoping for recovery for patient. Spiritual Practice: Provided supportive conversation and listening today. Issues of Which to be Aware: Raciel believes patient is distressed about being intubated as that was something she didn 't want, but Raciel reasons that the procedure isn't prolonging life but making it easier f or pt. to breathe and is supportive of the procedure. Raciel can't relax until she knows h er rcpgrd-bi-pgi will be okay. Will see the patient as requested. If there are any other spiritual care issues that arise, please contact concrete paving machine operator. Narcisa Sanchez MD - 05/08/2017 0721 PSTFormatting of this note may be different fr om the original. [place], [place] HOSPITALIST PROGRESS NOTE Patient: Amy Coleman : 1955: Age: 61 y.o. MedRec: [id number] Admission date: 05/08/2017 Hospital day # : 0 Physician author: Narcisa Boone MD Today: 05/08/2017 Allergies: Allergies Allergen Reactions Amoxicillin Cephalexin Hydroxyzine Hcl Penicillins Ranitidine Hcl Current Medications: Current Facility-Administered Medications Medication Dose Route Frequency Provider Last Rate Last Dose albuterol-ipratropium (DUONEB) 2.5-0.5 mg/3 mL nebulizer solution 3 mL 3 mL Nebulizati on RT Q6H Orlando Wall MD 3 mL at 05/08/17 0306 atorvaSTATin (LIPITOR) tablet 80 mg 80 mg Per OG Tube Nightly Orlando Wall MD 80 m g at 05/08/17 0351 azithromycin (ZITHROMAX) 500 mg in sodium chloride 0.9% 250 mL IVPB 500 mg Intravenous Daily Orlando Wall MD dextrose 50% injection 12.5 g 12.5 g Intravenous PRN Orlando Wall MD fentaNYL (PF) 5 mcg/mL in sodium chloride 0.9% 250 mL infusion 25-250 mcg/hr Intraveno us Titrated Orlando Wall MD 15 mL/hr at 05/08/17 0707 75 mcg/hr at 05/08/17 0707 heparin 1,000 units/mL injection 2,000-5,000 Units 2,000-5,000 Units Intravenous PRN S tina Wall MD heparin in half-normal saline 50 units/mL infusion 0-3,000 Units/hr Intravenous Titrat ed Orlando Wall MD 16 mL/hr at 05/08/17 0338 800 Units/hr at 05/08/17 0338 insulin lispro (humaLOG KWIKPEN) 100 units/mL injection (pen) 0-12 Units 0-12 Units Isaac bcutaneous 4x Daily WC and HS Orlando Wall MD magnesium sulfate 2 g/50 mL IVPB 2 g 2 g Intravenous PRN Orlando Wall MD And magnesium sulfate 4 g/100 mL IVPB 4 g 4 g Intravenous PRN Orlando Wall MD methylPREDNISolone sodium succinate (solu-MEDROL) 62.5 mg/mL injection 60 mg 60 mg Int ravenous 3 times per day Orlando Wall MD 60 mg at 05/08/17 0556 ondansetron (ZOFRAN) injection 4 mg 4 mg Intravenous Q6H PRN Orlando Wall MD pantoprazole (PROTONIX) injection 40 mg 40 mg Intravenous Daily Orlando Wall MD potassium chloride (K-DUR) ER tablet 40-60 mEq 40-60 mEq Oral PRN Orlando Wall MD And potassium chloride 20 mEq/15 mL liquid 40-60 mEq 40-60 mEq Feeding Tube PRN Orlando bhandari MD And potassium chloride 10 mEq in 100 mL IVPB 10 mEq Intravenous PRN Orlando Wall MD propofol infusion (DIPRIVAN) 10 mg/mL infusion 5-100 mcg/kg/min Intravenous Titrated Michael Wall MD 12.1 mL/hr at 05/08/17 0045 30 mcg/kg/min at 05/08/1744 sodium chloride 0.9% (NS) infusion Intravenous Continuous Orlando Wall MD 150 mL/hr at 05/08/17601 150 mL at 05/08/17601 Current Infusions: fentaNYL 75 mcg/hr (05/08/17706) heparin infusion 800 Units/hr (05/08/178) propofol infusion 30 mcg/kg/min (05/08/1744) sodium chloride 0.9% 150 mL (05/08/17601) Objective Data Point of care glucose No results for input(s): POCGLU in the last 168 hours. Labs last 24 hours Recent Results (from the past 24 hour(s)) POC Blood Gases Collection Time: 05/08/17 1:13 Result Value Ref Range Specimen Source Artery pH, POC 7.291 (L) 7.3 - 7.45 HCO3, POC 26.5 21.0 - 28.0 mmol/L TCO2, POC 28.2 22.0 - 29.0 mmol/L Base Excess, POC -1.0 -2.0 - 3.0 mmol/L Base Excess, Extracellular fluid, POC -0.1 -2.0 - 3.0 mmol/L O2 Sat, POC 98 90 - 100 % PCO2, POC 55.1 (H) 35.0 - 45 mmHg PO2, POC 111.7 60 - 750.0 mmHg Magnesium Collection Time: 05/08/17 1:30 Result Value Ref Range MG 1.9 1.8 - 2.5 mg/dL Troponin I Collection Time: 05/08/17 1:30 Result Value Ref Range Troponin I 2.91 (HH) <0.06 ng/mL Lactic Acid Collection Time: 05/08/17 1:45 Result Value Ref Range LACTATE 3.1 (H) 0.5 - 2.2 mmol/L ECG 12 lead Collection Time: 05/08/17 2:50 Result Value Ref Range INTERPRETATION TEXT Not Confirmed PTT Collection Time: 05/08/17 3:15 Result Value Ref Range PTT 26 22 - 36 seconds Basic Metabolic Panel Collection Time: 05/08/17 6:48 Result Value Ref Range NA 137 136 - 149 mmol/L K 3.4 (L) 3.5 - 5.1 mmol/L CL 104 98 - 109 mmol/L CO2 25 24 - 31 mmol/L ANION GAP 8 3 - 16 mmol/L GLUCOSE 136 (H) 70 - 109 mg/dL BUN 5 (L) 7 - 18 mg/dL Creatinine, Serum/Plasma 0.69 0.60 - 1.30 mg/dL eGFR if not >60 >=60 mL/min/1.73m2 CALCIUM 7.9 (L) 8.3 - 10.5 mg/dL BUN/CREA 7.2 CBC no Differential Collection Time: 05/08/17 6:48 Result Value Ref Range WBC 14.6 (H) 4.0 - 11.0 K/uL RBC 4.79 3.70 - 5.20 M/uL Hgb 13.3 11.5 - 16.0 g/dL Hct 40.9 34.0 - 47.0 % MCV 85.4 83.0 - 101.0 fL MCH 27.8 (L) 28.0 - 35.0 pg MCHC 32.6 32.0 - 36.0 g/dL RDW-CV 13.3 <15.0 % Platelet Count 277 140 - 440 K/uL MPV 8.5 fL Micro results Microbiology Results (72 hrs) Procedure Component Value Units Date/Time Culture, Blood [[id number]] Collected: 05/08/17 0145 Order Status: Sent Lab Status: In process Updated: 05/08/17152 Specimen: Blood from Line Culture, Blood [[id number]] Collected: 05/08/17118 Order Status: Sent Lab Status: In process Updated: 05/08/17152 Specimen: Blood from Peripheral Blood Culture, MRSA [[id number]] Collected: 05/08/1731 Order Status: Sent Lab Status: In process Updated: 05/08/1733 Specimen: Respiratory from Nares Radiology results No results found. Vitals Ranges: Temp: [36.3 C (97.3 F)-36.8 C (98.2 F)] 36.8 C (98.2 F) Pulse: [80-127] 98 Resp: [15-30] 23 BP: (91-135)/(64-89) 113/84 Vitals: Temp: 36.8 C (98.2 F) BP: 113/84 Pulse: 98 Resp: 23 SpO2: 95 % SpO2 95 % on mechanical ventilation at flow rate 65L/min Subjective CC respiratory arrest Pt seen and examined at bedside. Patient was intubated in the field 2/2 respiratory arrest, never lost pulse. Transferred from [facility]. Family member at bedside reported patient hav ing epigastric/chest discomfort prior to event, she eventually called for help, noted to be dyspneic and acutely ill. ROS See above Exam Constitutional: sedated woman currently on vent, with verbal stimuli she squeezes hand spon taneously and answers some questions with shaking or nodding head. HEENT: No conjunctivitis nor scleral icterus. Clear oropharynx. No adenopathy Cardiac: Normal S1 S2, regular, no murmur appreciated Lung: decreased breath sounds in all riggs Abdomen: + BS, Soft, NT, no HSM nor masses Psych: intubated, sedated Extremities: no edema in bilateral lower extremities Neuro: unable to fully assess, moves extremities spontaneously Assessment and Plan Active Hospital Problems Diagnosis Respiratory failure with hypoxia and hypercapnia COPD (chronic obstructive pulmonary disease) Resolved Hospital Problems Diagnosis No resolved problems to display. 1. Acute hypercarbic hypoxic respiratory failure- per records patient with respiratory arre st requiring intubation on the field- remains with mechanical ventilation- this may be multi factorial- due to COPD exacerbation + NSTEMI -continue Solu-medrol -duonebs q6 hours -continue Azithromycin -NPO -trend WBC and temp -RT twice per day -goal is to wean FiO2 <45%- spontaneous breathing trial later today and ABG- if doing well, will extubate 2. NSTEMI-patient with rising troponin.- ? Is this is a type 2 due to hypoxia, although pt has multiple risks factors with long history of smoking, obesity, diabetes, she may have und erlying coronary artery disease. -Continue heparin gtt for 48 hours. -Continue Lipitor and asa. -cycle troponin -Echo pending. -Cardiology consulted -replete electrolytes 3. Diabetes mellitus type 2 -Sliding scale insulin -IVF -consult nutrition DVT Prophylaxis Heparin gtt Code Status Full Code I spent 45 minutes providing critical care to this patient for above listed conditions Narcisa Boone MD 05/08/2017 7:21 [facility] Portions of this chart may have been created with Seeonic voice recognition software. Occasi onal wrong-word or sound-alike substitutions may have occurred due to the inherent lobo itations of voice recognition software. Please read the chart carefully and recognize, using context, where these substitutions have occurred in this encounter Plan of Treatment + +--------+ + + | Name | Priori | Associated Diagnoses | Order Schedule | | | ty | | | + +--------+ + + | Referral to Home Health - | Routin | Chronic | Ordered: 05/11/2017 | | OUTPATIENT | e | obstructive | | | | | pulmonary disease, | | | | | unspecified COPD | | | | | type (HCC) Acute on | | | | | chronic respiratory | | | | | failure with | | | | | hypoxia and | | | | | hypercapnia (HCC) | | + +--------+ + + as of this encounter Results POC Glucose (05/11/2017 1143) + +-------+ + | Component | Value | Ref Range | + +-------+ + | Glucose, POC | 107 | 70 - 109 mg/dL | + +-------+ + + + + | Specimen | Performing Laboratory | + + + | Blood | [facility] [address] | | | [place] [address] | + + + Basic Metabolic Panel (05/11/2017 0455) + + + + | Component | [...] GLOMERULAR FILTRATION | >=60 mL/min/1.73m2 | | MAURITANIAN | RATE,ESTIMATED mL/min/1.83y0Bulu than | | | | 60 Chronic [...] + + + | Blood | [facility] [address] | | | [place] [address] | + + + Magnesium (05/11/2017454) + +-------+ + | Component | Value | Ref Range | + +-------+ + | MG | 1.9 | 1.8 - 2.5 mg/dL | + +-------+ + + + + | Specimen | Performing Laboratory | + + + | Blood | [facility] [address] | | | [place] [address] | + + + CBC with Differential (05/11/2017454) + + + + | Component | [...] | + + + | Blood | [facility] [address] | | | [place] [address] | + + + POC Glucose (05/10/20172056) + +---------+ + | Component | Value | Ref Range | + +---------+ + | Glucose, POC | 130 (H) | 70 - 109 mg/dL | + +---------+ + + + + | Specimen | Performing Laboratory | + + + | Blood | [facility] [address] | | | [place] [address] | + + + POC Glucose (05/10/2017 1654) + +---------+ + | Component | Value | Ref Range | + +---------+ + | Glucose, POC | 113 (H) | 70 - 109 mg/dL | + +---------+ + + + + | Specimen | Performing Laboratory | + + + | Blood | [facility] [address] | | | [place] [address] | + + + POC Glucose (05/10/2017 1130) + +-------+ + | Component | Value | Ref Range | + +-------+ + | Glucose, POC | 93 | 70 - 109 mg/dL | + +-------+ + + + + | Specimen | Performing Laboratory | + + + | Blood | [facility] [address] | | | [place] [address] | + + + XR Chest AP Portable (05/10/2017 0630) + + | Narrative | + + [...] | + + CBC no Differential (05/10/2017 0335) + + + + | Component | [...] + + + | Blood | [facility] [address] | | | [place] [address] | + + + Basic Metabolic Panel (05/10/2017334) + + + + | Component | Value | Ref Range | + + + + | NA | 138 | 136 - 149 mmol/L | + + + + | K | 3.5 | 3.5 - 5.1 mmol/L | + + + + | CL | 106 | 98 - 109 mmol/L | + + + + | CO2 | 24 | 24 - 31 mmol/L | + + + + | ANION GAP | 8 | 3 - 16 mmol/L | + + + + | GLUCOSE | 103 | 70 - 109 mg/dL | + + + + | BUN | 7 | 7 - 18 mg/dL | + + + + | Creatinine, | 0.59 (L) | 0.60 - 1.30 mg/dL | | Serum/Plasma | | | + + + + | eGFR if not | >60Comment: GLOMERULAR FILTRATION | >=60 mL/min/1.73m2 | | MAURITANIAN | RATE,ESTIMATED mL/min/1.68y9Emuq than | | | | 60 Chronic kidney disease,if found over | | | | a 3-month period.Less than 15 Kidney | | | | failureFor Americans,multiply the | | | | calculated GFR by 1.21. | | | | | | | | | | + + + + | CALCIUM | 8.3 | 8.3 - 10.5 mg/dL | + + + + | BUN/CREA | 11.9 | | + + + + + + + | Specimen | Performing Laboratory | + + + | Blood | [facility] [address] | | | [place] [address] | + + + Magnesium (05/10/2017 0335) + +-------+ + | Component | Value | Ref Range | + +-------+ + | MG | 2.0 | 1.8 - 2.5 mg/dL | + +-------+ + + + + | Specimen | Performing Laboratory | + + + | Blood | [facility] [address] | | | [place] [address] | + + + POC Glucose (05/09/20172104) + +-------+ + | Component | Value | Ref Range | + +-------+ + | Glucose, POC | 104 | 70 - 109 mg/dL | + +-------+ + + + + | Specimen | Performing Laboratory | + + + | Blood | [facility] [address] | | | [place] [address] | + + + POC Glucose (05/09/2017 1644) + +-------+ + | Component | Value | Ref Range | + +-------+ + | Glucose, POC | 104 | 70 - 109 mg/dL | + +-------+ + + + + | Specimen | Performing Laboratory | + + + | Blood | [facility] [address] | | | [place] [address] | + + + CV CARDIAC PROCEDURE (05/09/2017 1402) + + | Narrative | + + | Johnny Luther MD 05/09/2017 14:39 CARDIAC CATHETERIZATION REPORT DATE | | OF PROCEDURE: 05/09/17 PRECATHETERIZATION INFORMED CONSENT : Yes | | TIMEOUT Before start of procedure done: Yes DIRECTOR OF SALES: Johnny Johnson M.D., | | Brenda PRIMARY PHYSICIAN: Bry Vaughn, PROCEDURES PERFORMED: Left | | heart catheterization, selective coronary arteriography INDICATIONS | | : 61-year-old woman admitted with acute respiratory failure, elevated troponin | | ARTERIAL ACCESS: Right radial artery 6 Mexican CLOSURE DEVICE:. TR band | | DESCRIPTION [...] using a Seldinger technique and a 6 Mexican sheath was inserted. 3 mg per | | mL and 300 g of nitroglycerin were administered through the side port of the | | radial artery sheath. 4000 units of intravenous heparin was | | administered. Selective coronary arteriography was performed using a 5 Mexican | | Ole catheter. The 5 Mexican Ole catheter was advanced across the aortic [...] | lifestyle modification Johnny Johnson M.D., F.A.C.C. Yard Laborer | | [place], [place] | + + POC Glucose (05/09/2017 1141) + +---------+ + | Component | Value | Ref Range | + +---------+ + | Glucose, POC | 118 (H) | 70 - 109 mg/dL | + +---------+ + + + + | Specimen | Performing Laboratory | + + + | Blood | [facility] [address] | | | [place] [address] | + + + ECG 12 lead (05/09/2017 1133) + + + + | Component | [...] GEORGES HU, | | | | LUCIO ([id number]) on 05/10/2017 7:08:38 AM | | | | | | + + + + + + + | Specimen | Performing Laboratory | + + + | | [facility] MUSE | + + + PTT (05/09/201716) + +--------+ + | Component | Value | Ref Range | + +--------+ + | PTT | 65 (H) | 22 - 36 seconds | + +--------+ + + + + | Specimen | Performing Laboratory | + + + | Blood | [facility] [address] | | | [place] [address] | + + + POC Glucose (05/09/2017 0749) + +---------+ + | Component | Value | Ref Range | + +---------+ + | Glucose, POC | 112 (H) | 70 - 109 mg/dL | + +---------+ + + + + | Specimen | Performing Laboratory | + + + | Blood | [facility] [address] | | | [place] [address] | + + + PTT (05/09/2017 0307) + +--------+ + | Component | Value | Ref Range | + +--------+ + | PTT | 85 (H) | 22 - 36 seconds | + +--------+ + + + + | Specimen | Performing Laboratory | + + + | Blood | [facility] [address] | | | [place] [address] | + + + Protime INR (05/09/2017306) + + + + | Component | [...] | + + + | Blood | [facility] [address] | | | [place] [address] | + + + Magnesium (05/09/2017 0307) + +-------+ + | Component | Value | Ref Range | + +-------+ + | MG | 2.2 | 1.8 - 2.5 mg/dL | + +-------+ + + + + | Specimen | Performing Laboratory | + + + | Blood | [facility] [address] | | | [place] [address] | + + + Comprehensive Metabolic Panel [...] GLOMERULAR FILTRATION | >=60 mL/min/1.73m2 | | [place]URIT[place]IAN | RATE,ESTIMATED mL/min/1.04m2Bieu than | | | | 60 Chronic [...] + + + | Blood | [facility] [address] | | | [place] [address] | + + + CBC with Differential (05/09/2017 0307) + + + + | Component | Value | Ref Range | + + + + | WBC | 20.2 (H) | 4.0 - 11.0 K/uL | + + + + | RBC | 4.25 | 3.70 - 5.20 M/uL | + + + + | Hgb | 11.8 | 11.5 - 16.0 g/dL | + + + + | Hct | 36.5 | 34.0 - 47.0 % | + + + + | MCV | 85.9 | 83.0 - 101.0 fL | + + + + | MCH | 27.8 (L) | 28.0 - 35.0 pg | + + + + | MCHC | 32.3 | 32.0 - 36.0 g/dL | + + + + | RDW-CV | 13.5 | <15.0 % | + + + + | Platelet Count | 239 | 140 - 440 K/uL | + + + + | MPV | 8.8 | fL | + + + + | % Neutrophils | 88.8 (H) | 45.0 - 82.0 % | + + + + | % Lymphocytes | 6.5 (L) | 20.0 - 45.0 % | + + + + | % Monocytes | 4.5 | 4.0 - 12.0 % | + + + + | % Eosinophils | 0.0 | 0.0 - 5.0 % | + + + + | % Basophils | 0.2 | 0.0 - 1.0 % | + + + + | Absolute Neutrophils | 18.00 (H) | 1.80 - 8.50 K/uL | + + + + | Absolute Lymphocytes | 1.30 | 0.60 - 3.20 K/uL | + + + + | Absolute Monocytes | 0.90 | 0.00 - 1.00 K/uL | + + + + | Absolute Eosinophils | 0.00 | 0.00 - 0.40 K/uL | + + + + | Absolute Basophils | 0.00 | 0.00 - 0.10 K/uL | + + + + + + + | Specimen | Performing Laboratory | + + + | Blood | [facility] [address] | | | [place] [address] | + + + Troponin I (05/09/2017 0112) + + + + | Component | Value | Ref Range | + + + + | Troponin I | 1.88 ()Comment: Reference | <0.06 ng/mL | | | Ranges:0.00-0.06 = NORMAL>0.06 = | | | | SUSPICIOUS FOR MYOCARDIAL DAMAGE NOTE: | | | | Values greater than 0.50 ng/mL have been | | | | shown to be strongly associated with acute | | | | myocardial infarction. [employer] | | | | of Cardiology [...] | + + + | Blood | [facility] [address] | | | [place] [address] | + + + POC Glucose (05/08/20172137) + +---------+ + | Component | Value | Ref Range | + +---------+ + | Glucose, POC | 126 (H) | 70 - 109 mg/dL | + +---------+ + + + + | Specimen | Performing Laboratory | + + + | Blood | [facility] [address] | | | [place] [address] | + + + PTT (05/08/20172042) + +--------+ + | Component | Value | Ref Range | + +--------+ + | PTT | 53 (H) | 22 - 36 seconds | + +--------+ + + + + | Specimen | Performing Laboratory | + + + | Blood | [facility] [address] | | | [place] [address] | + + + Troponin I (05/08/20171854) + + + + | Component | Value | Ref Range | + + + + | Troponin I | 2.58 ()Comment: Reference | <0.06 ng/mL | | | Ranges:0.00-0.06 = NORMAL>0.06 = | | | | SUSPICIOUS FOR MYOCARDIAL DAMAGE NOTE: | | | | Values greater than 0.50 ng/mL have been | | | | shown to be strongly associated with acute | | | | myocardial infarction. Consistent with | | | | previous results. [employer] | | | | Cardiology ([employer]) recommends a decision | | [...] serial | | | | troponin levels). | | + + + + + + + | Specimen | Performing Laboratory | + + + | Blood | [facility] [address] | | | [place] [address] | + + + POC Glucose (05/08/2017 1628) + +---------+ + | Component | Value | Ref Range | + +---------+ + | Glucose, POC | 157 (H) | 70 - 109 mg/dL | + +---------+ + + + + | Specimen | Performing Laboratory | + + + | Blood | [facility] [address] | | | [place] [address] | + + + PTT (05/08/2017 1406) + +-------+ + | Component | Value | Ref Range | + +-------+ + | PTT | 30 | 22 - 36 seconds | + +-------+ + + + + | Specimen | Performing Laboratory | + + + | Blood | [facility] [address] | | | [place] [address] | + + + POC Blood Gases (05/08/2017 1330) + +--------+ + | Component | Value [...] | + + + | | [facility] [address] | | | [place] [address] | + + + ECG 12 lead (05/08/2017 1308) + + + + | Component | Value | Ref Range | + + + + | VENTRICULAR RATE EKG | 88 | BPM | + + + + | ATRIAL RATE | 88 | BPM | + + + + | P-R INTERVAL | 174 | ms | + + + + | QRS DURATION | 72 | ms | + + + + | Q-T INTERVAL | 382 | ms | + + + + | Q-T INTERVAL | 462 | ms | | (CORRECTED) | | | + + + + | P WAVE AXIS | 51 | degrees | + + + + | QRS AXIS | -13 | degrees | + + + + | T AXIS | 52 | degrees | + + + + | INTERPRETATION TEXT | Normal sinus rhythmNonspecific T wave | | | | abnormality Lateral leadsWhen compared with | | | | ECG of 08-MAY-2017 02:50,QTc has decreased | | | | in durationT wave amplitude has decreased | | | | in in lead IT wave is now inverted in lead | | | | [id number] by LUCIO SU MD ([id number]) on | | | | 05/09/2017 7:21:00 AM | | | | | | + + + + + + + | Specimen | Performing Laboratory | + + + | | [facility] | + + + Hemoglobin and Hematocrit [...] | + + + | Blood | [facility] [address] | | | [place] [address] | + + + PTT (05/08/2017 1250) + +--------+ + | Component | Value | Ref Range | + +--------+ + | PTT | 99 (H) | 22 - 36 seconds | + +--------+ + + + + | Specimen | Performing Laboratory | + + + | Blood | [facility] [address] | | | [place] [address] | + + + Magnesium (05/08/2017 1250) + +-------+ + | Component | Value | Ref Range | + +-------+ + | MG | 2.3 | 1.8 - 2.5 mg/dL | + +-------+ + + + + | Specimen | Performing Laboratory | + + + | Blood | [facility] [address] | | | [place] [address] | + + + Potassium (05/08/20171249) + +-------+ + | Component | Value | Ref Range | + +-------+ + | K | 4.1 | 3.5 - 5.1 mmol/L | + +-------+ + + + + | Specimen | Performing Laboratory | + + + | Blood | [facility] [address] | | | [place] [address] | + + + Troponin I (05/08/2017 1250) + + + + | Component | Value | Ref Range | + + + + | Troponin I | 2.73 (HH)Comment: Consistent with previous | <0.06 ng/mL | | | results. Reference Ranges:0.00-0.06 = | | | | NORMAL>0.06 = SUSPICIOUS FOR | | | | MYOCARDIAL DAMAGE NOTE: Values greater than | | | | 0.50 ng/mL have been shown to be strongly | | | | associated with acute myocardial | | | | infarction. [employer] | | | | Cardiology ([employer]) recommends a decision | | [...] serial | | | | troponin levels). | | + + + + + + + | Specimen | Performing Laboratory | + + + | Blood | [facility] [address] | | | [place] [address] | + + + POC Glucose (05/08/2017 1141) + +---------+ + | Component | Value | Ref Range | + +---------+ + | Glucose, POC | 116 (H) | 70 - 109 mg/dL | + +---------+ + + + + | Specimen | Performing Laboratory | + + + | Blood | [facility] [address] | | | [place] [address] | + + + Protime INR (05/08/2017 1041) + + + + | Component | Value | Ref Range | + + + + | Protime | 13.9 | 11.3 - 13.9 seconds | + + + + | INR | 1.08Comment: Usual Oral Anticoagulation | 0.90 - 1.10 | | | Range: 2.0 - 3.0High Level Oral | | | | Anticoagulation Range: 2.5 - 3.5 | | | |High Level Oral Anticoagulation Range: 2.5 - 3.5 | | + + + + + + + | Specimen | Performing Laboratory | + + + | Blood | [facility] [address] | | | [place] [address] | + + + PTT (05/08/2017 1041) + + + + | Component | Value | Ref Range | + + + + | PTT | 189 ()Comment: Critical Result called to | 22 - 36 seconds | | | and read back by Brii Barr RN on | | | | 05/08/2017 at 11:57 by Kristen Akbar. | | | | | | | | | | + + + + + + + | Specimen | Performing Laboratory | + + + | Blood | [facility] [address] | | | [place] [address] | + + + ECHO Complete (05/08/2017 [...] Number [id number] I | | Patient Number [id number] Date of Study 05/08/2017 | | Visit Number [id number] Referring | | Physician NICOLE TSANG Number Date of 1955 | | Aerodynamics Engineer [facility] Age 61 | | year(s) Interpreting JOHNNY JOHNSON MD, | | | | Compliance Administrator FAC Gender Female | | Nurse Stress Site Operations Manager | | Procedure Type of Study TTE [...] | Electronically signed by JOHNNY JOHNSON MD, [facility] WITH [facility](Interpreting physician) on | | 05/08/2017 04:56 [...] 38.51 ml | | | | EF [id number]% Left Ventricle Diastolic Dimension: 4.9 | | cm Systolic Dimension: 3.67 cm Septum Diastolic: 1.03 cm PW | | Diastolic: 1.13 cm EF Calculated: 44% Miscellaneous Aorta Aortic Root: | | 3.27 cm Ascending Aorta: 3.43 cm | + + + + | Procedure Note | + + | Avelino, Rad Results In - 05/08/2017 1656 PST Transthoracic Echocardiography Report (TTE) | | | | Demographics | | | | Patient Name JARED MONTAÑO Room Number 449 | | I | | | | Patient Number [id number] Date of Study 05/08/2017 | | | | Visit Number [id number] | | | | Referring Physician NICOLE TSANG | | Number | | | | Date of 1955 Aerodynamics Engineer [facility] | | | | Age 61 year(s) Interpreting JOHNNY JOHNSON MD, | | Compliance Administrator FAC | | | | Gender Female Nurse | | | | Stress Site Operations Manager | | | | Procedure | | [...] | Electronically signed by JOHNNY JOHNSON MD, [facility] WITH [facility](Interpreting | | physician) on 05/08/2017 04:56 [...] LA Volume: 38.51 ml | | EF Nqyjqngpa35% | | | | Left Ventricle | | | | Diastolic Dimension: 4.9 cm Systolic Dimension: 3.67 cm | | Septum Diastolic: 1.03 cm | | PW Diastolic: 1.13 cm | | EF Calculated: 44% | | | | Miscellaneous | | | | Aorta | | | | Aortic Root: 3.27 cm | | Ascending Aorta: 3.43 cm | + + POC Glucose (05/08/201742) + +---------+ + | Component | Value | Ref Range | + +---------+ + | Glucose, POC | 127 (H) | 70 - 109 mg/dL | + +---------+ + + + + | Specimen | Performing Laboratory | + + + | Blood | [facility] [address] | | | [place] [address] | + + + Troponin I (05/08/2017 0649) + + + + | Component | Value | Ref Range | + + + + | Troponin I | 3.93 ()Comment: Reference | <0.06 ng/mL | | | Ranges:0.00-0.06 = NORMAL>0.06 = | | | | SUSPICIOUS FOR MYOCARDIAL DAMAGE NOTE: | | | | Values greater than 0.50 ng/mL have been | | | | shown to be strongly associated with acute | | | | myocardial infarction. [employer] | | | | of Cardiology [...] serial | | | | troponin levels). Critical Result called to | | | | and read back by Roberth Perry on 05/08/2017 | | | | at 7:31 by Hoang Borrego. | | + + + + + + + | Specimen | Performing Laboratory | + + + | Blood | [facility] [address] | | | [place] [address] | + + + Lactic Acid (05/08/2017647) + +-------+ + | Component | Value | Ref Range | + +-------+ + | LACTATE | 1.4 | 0.5 - 2.2 mmol/L | + +-------+ + + + + | Specimen | Performing Laboratory | + + + | Blood | [facility] [address] | | | [place] [address] | + + + CBC no Differential (05/08/2017647) + + + + | Component | Value | Ref Range | + + + + | WBC | 14.6 (H) | 4.0 - 11.0 K/uL | + + + + | RBC | 4.79 | 3.70 - 5.20 M/uL | + + + + | Hgb | 13.3 | 11.5 - 16.0 g/dL | + + + + | Hct | 40.9 | 34.0 - 47.0 % | + + + + | MCV | 85.4 | 83.0 - 101.0 fL | + + + + | MCH | 27.8 (L) | 28.0 - 35.0 pg | + + + + | MCHC | 32.6 | 32.0 - 36.0 g/dL | + + + + | RDW-CV | 13.3 | <15.0 % | + + + + | Platelet Count | 277 | 140 - 440 K/uL | + + + + | MPV | 8.5 | fL | + + + + + + + | Specimen | Performing Laboratory | + + + | Blood | [facility] [address] | | | [place] [address] | + + + Basic Metabolic Panel (05/08/2017647) + + + + | Component | Value | Ref Range | + + + + | NA | 137 | 136 - 149 mmol/L | + + + + | K | 3.4 (L) | 3.5 - 5.1 mmol/L | + + + + | CL | 104 | 98 - 109 mmol/L | + + + + | CO2 | 25 | 24 - 31 mmol/L | + + + + | ANION GAP | 8 | 3 - 16 mmol/L | + + + + | GLUCOSE | 136 (H) | 70 - 109 mg/dL | + + + + | BUN | 5 (L) | 7 - 18 mg/dL | + + + + | Creatinine, | 0.69 | 0.60 - 1.30 mg/dL | | Serum/Plasma | | | + + + + | eGFR if not | >60Comment: GLOMERULAR FILTRATION | >=60 mL/min/1.73m2 | | [place] | RATE,ESTIMATED mL/min/1.77f2Tbsh than | | | | 60 Chronic kidney disease,if found over | | | | a 3-month period.Less than 15 Kidney | | | | failureFor Americans,multiply the | | | | calculated GFR by 1.21. | | | | | | | | | | + + + + | CALCIUM | 7.9 (L) | 8.3 - 10.5 mg/dL | + + + + | BUN/CREA | 7.2 | | + + + + + + + | Specimen | Performing Laboratory | + + + | Blood | [facility] [address] | | | [place] [address] | + + + PTT (05/08/2017314) + +-------+ + | Component | Value | Ref Range | + +-------+ + | PTT | 26 | 22 - 36 seconds | + +-------+ + + + + | Specimen | Performing Laboratory | + + + | Blood | [facility] [address] | | | [place] [address] | + + + ECG 12 lead (05/08/2017249) + + +------ -----+ | Component | Value | Ref R avery | + + +------ -----+ | VENTRICULAR RATE EKG | 91 | BPM | + + +------ -----+ | ATRIAL RATE | 91 | BPM | + + +------ -----+ | P-R INTERVAL | 160 | ms | + + +------ -----+ | QRS DURATION | 78 | ms | + + +------ -----+ | Q-T INTERVAL | 406 | ms | + + +------ -----+ | Q-T INTERVAL | 499 | ms | | (CORRECTED) | | | + + +------ -----+ | P WAVE AXIS | 69 | degre es | + + +------ -----+ | QRS AXIS | 11 | degre es | + + +------ -----+ | T AXIS | 61 | degre es | + + +------ -----+ | INTERPRETATION TEXT | Normal sinus rhythmNonspecific ST | | | | abnormalityProlonged QTcAbnormal ECGNo | | | | previous ECGs availableConfirmed by GEORGES | | | | LUCIO HU ([id number]) on 05/08/2017 8:24:47 AM | | | |No previous ECGs available | | | |Confirmed by LUCIO SU MD ([id number]) on 05/08/2017 8:24:47 AM | | | | | | + + +------ -----+ + + + | Specimen | Performing Laboratory | + + + | | [facility] | + + + Lactic Acid (05/08/2017 0145) + +---------+ + | Component | Value | Ref Range | + +---------+ + | LACTATE | 3.1 (H) | 0.5 - 2.2 mmol/L | + +---------+ + + + + | Specimen | Performing Laboratory | + + + | Blood | [facility] [address] | | | [place] [address] | + + + Culture, Blood (05/08/2017 0145) + + + + | Component | Value | Ref Range | + + + + | Culture | No growth after 5 days incubation. | | + + + + + + + | Specimen | Performing Laboratory | + + + | Blood - Line | [facility] [address] | | | [place] [address] | + + + Troponin I (05/08/2017 0130) + + + + | Component | Value | Ref Range | + + + + | Troponin I | 2.91 ()Comment: Reference | <0.06 ng/mL | | | Ranges:0.00-0.06 = NORMAL>0.06 = | | | | SUSPICIOUS FOR MYOCARDIAL DAMAGE NOTE: | | | | Values greater than 0.50 ng/mL have been | | | | shown to be strongly associated with acute | | | | myocardial infarction. [employer] | | | | of Cardiology [...] serial | | | | troponin levels). Critical Result called to | | | | and read back by Roberth Perry on 05/08/2017 | | | | at 2:22 by Hoang Borrego. | | + + + + + + + | Specimen | Performing Laboratory | + + + | Blood | [facility] [address] | | | [place] [address] | + + + Magnesium (05/08/2017129) + +-------+ + | Component | Value | Ref Range | + +-------+ + | MG | 1.9 | 1.8 - 2.5 mg/dL | + +-------+ + + + + | Specimen | Performing Laboratory | + + + | Blood | [facility] [address] | | | [place] [address] | + + + Culture, Blood (05/08/20179) + + + + | Component | Value | Ref Range | + + + + | Culture | No growth after 5 days incubation. | | + + + + + + + | Specimen | Performing Laboratory | + + + | Blood - Peripheral | [facility] [address] | | Blood | [place] [address] | + + + POC Blood Gases (05/08/2017 0113) + + + + | Component | Value | Ref Range | + + + + | Specimen Source | Artery | | + + + + | pH, POC | 7.291 (L) | 7.3 - 7.45 | + + + + | HCO3, POC | 26.5 | 21.0 - 28.0 mmol/L | + + + + | TCO2, POC | 28.2 | 22.0 - 29.0 mmol/L | + + + + | Base Excess, POC | -1.0 | -2.0 - 3.0 mmol/L | + + + + | Base Excess, | -0.1 | -2.0 - 3.0 mmol/L | | Extracellular fluid, | | | | POC | | | + + + + | O2 Sat, POC | 98 | 90 - 100 % | + + + + | PCO2, POC | 55.1 (H) | 35.0 - 45 mmHg | + + + + | PO2, POC | 111.7 | 60 - 750.0 mmHg | + + + + + + + | Specimen | Performing Laboratory | + + + | | [facility] [address] | | | [place] [address] | + + + XR Chest AP Portable (05/08/2017 0041) + + | Narrative | + + | XR CHEST AP PORTABLE 05/08/2017 12:32 AM HISTORY: intubation. COMPARISON: None. | | Findings: Heart is normal in size. Lungs are clear and no evidence of pneumothorax | | or pleural effusion. Borderline/subtle bilateral suprahilar areas of interstitial | | fullness and questionable peribronchial wall thickening. Bones and soft tissues | | demonstrate no acute abnormality. NG tube tip courses into the gastric body with the | | tip terminating in the gastric fundus. Multilevel thoracic spondylosis. IMPRESSION | | - Endotracheal tube terminates in the mid/distal intrathoracic trachea, approximately | | 2.7 cm in the luis alberto. Borderline slight peribronchial wall thickening in bilateral | | suprahilar regions, nonspecific with subtle infectious or inflammatory etiology | | considered in the appropriate clinical setting. Dictated and Signed by: | | Haider Hernandez MD Electronically signed: 05/08/2017 12:37 PM | + + + + | Procedure Note | + + | Avelino, Rad Results In - 05/08/2017 1240 PST XR CHEST AP PORTABLE 05/08/2017 12:32 AM | | | | HISTORY: intubation. | | | | COMPARISON: None. | | | | Findings: Heart is normal in size. Lungs are clear and no evidence of | | pneumothorax or pleural effusion. Borderline/subtle bilateral suprahilar areas | | of interstitial fullness and questionable peribronchial wall thickening. Bones | | and soft tissues demonstrate no acute abnormality. NG tube tip courses into the | | gastric body with the tip terminating in the gastric fundus. Multilevel thoracic | | spondylosis. | | | | IMPRESSION - | | Endotracheal tube terminates in the mid/distal intrathoracic trachea, | | approximately 2.7 cm in the luis alberto. | | | | Borderline slight peribronchial wall thickening in bilateral suprahilar regions, | | nonspecific with subtle infectious or inflammatory etiology considered in the | | appropriate clinical setting. | | | | Dictated and Signed by: Haider Hernandez MD | | Electronically signed: 05/08/2017 12:37 PM | + + Culture, MRSA (05/08/201731) + + + + | Component | [...] | + + + | Respiratory - Snehal | [facility] [address] | | | [place] [address] | + + + LABS - EXTERNAL SCAN (05/07/2017) + + | Narrative | + + | Ordered by an unspecified provider. | + + IMAGING REPORT - EXTERNAL SCAN (05/07/2017) + + | Narrative | + + | Ordered by an unspecified provider. | + + IMAGING REPORT - EXTERNAL SCAN (05/07/2017) + + | Narrative | + + | Ordered by an unspecified provider. | + + IMAGING REPORT - EXTERNAL SCAN (05/07/2017) + + | Narrative | + + | Ordered by an unspecified provider. | + + ECG - EXTERNAL SCAN (05/07/2017) + + | Narrative | + + | Ordered by an unspecified provider. | + + in this encounter Visit Diagnoses + + | Diagnosis | + + | Chronic obstructive pulmonary disease, unspecified COPD type (HCC) | + + | Acute on chronic respiratory failure with hypoxia and hypercapnia (HCC) | + + | NSTEMI (non-ST elevated myocardial infarction) ([facility]) | + + | Acute myocardial infarction, subendocardial infarction, episode of care unspecified | + + | Non-ST elevation myocardial infarction (NSTEMI), type 2 | + + | Respiratory failure with hypoxia and hypercapnia (HCC) | + + Admitting Diagnoses + + | Diagnosis | + + | Respiratory failure (HCC) - sob | + + | Acute respiratory failure | + + | label tacker procedure needed | + + Administered Medications + +--------+ +--------+------+------+ | Medication Order | MAR | Action | Dose | Rate | Site | | | Action | Date | | | | + +--------+ +--------+------+------+ | acetaminophen (TYLENOL) tablet | Given | | 650 mg | | | | 650 mg 650 mg, Oral, EVERY 4 | | 8 5:53 | | | | | HOURS PRN, Pain, Starting Sun | | PST | | | | | 05/08/17 at 1503 | | | | | | + +--------+ +--------+------+------+ +-------+ +--------+---+---+ | Given | | 650 mg | | | | | 8 9:59 | | | | | | PST | | | | +-------+ +--------+---+---+ | Given | | 650 mg | | | | | 8 19:48 | | | | | | PST | | | | +-------+ +--------+---+---+ +---+---+ | | | +---+---+ + +-------+ +-------+---+---+ | albuterol-ipratropium (DUONEB) | Given | | 3 mLs | | | | 2.5-0.5 mg/3 mL nebulizer | | 8 3:21 | | | | | solution 3 mL 3 mL, | | PST | | | | | Nebulization, RT Q6H, First dose | | | | | | | on 05/08/17 at 0300 | | | | | | + +-------+ +-------+---+---+ +-------+ +-------+---+---+ | Given | | 3 mLs | | | | | 8 8:30 | | | | | | PST | | | | +-------+ +-------+---+---+ | Given | | 3 mLs | | | | | 8 15:09 | | | | | | PST | | | | +-------+ +-------+---+---+ +---+---+ | | | +---+---+ + +-------+ +--------+---+---+ | aluminum & magnesium | Given | | 30 mLs | | | | hydroxide-simethicone (MAALOX | | 8 18:55 | | | | | PLUS REGULAR STRENGTH) 200-200-20 | | PST | | | | | mg/5 mL suspension 30 mL 30 mL, | | | | | | | Oral, EVERY 4 HOURS PRN, | | | | | | | Indigestion, Starting 05/08/17 | | | | | | | at 1838, Shake well. | | | | | | + +-------+ +--------+---+---+ +---+---+ | | | +---+---+ + +-------+ +-------+---+---+ | aspirin chewable tablet 81 mg | Given | | 81 mg | | | | 81 mg, Oral, DAILY, First dose on | | 8 8:36 | | | | | 05/08/17 at 1745 | | PST | | | | + +-------+ +-------+---+---+ +-------+ +-------+---+---+ | Given | | 81 mg | | | | | 8 8:16 | | | | | | PST | | | | +-------+ +-------+---+---+ | Given | | 81 mg | | | | | 8 8:40 | | | | | | PST | | | | +-------+ +-------+---+---+ +---+---+ | | | +---+---+ + +-------+ +-------+---+---+ | atorvaSTATin (LIPITOR) tablet | Given | | 80 mg | | | | 80 mg 80 mg, Per OG Tube, | | 8 22:59 | | | | | NIGHTLY, First dose on Sun | | PST | | | | | 05/08/17 at 0400 | | | | | | + +-------+ +-------+---+---+ +-------+ +-------+---+---+ | Given | | 80 mg | | | | | 8 21:01 | | | | | | PST | | | | +-------+ +-------+---+---+ | Given | | 80 mg | | | | | 8 20:53 | | | | | | PST | | | | +-------+ +-------+---+---+ +---+---+ | | | +---+---+ + +---------+ +--------+-------+---+ | azithromycin (ZITHROMAX) 500 mg | New Bag | | 500 mg | 255 | | | in sodium chloride 0.9% 250 mL | | 8 8:36 | | mL/hr | | | IVPB 500 mg, Intravenous, | | PST | | | | | Administer over 1 Hours, DAILY, | | | | | | | First dose on 05/08/17 at | | | | | | | 0900, Keep in refrigerator. | | | | | | + +---------+ +--------+-------+---+ +---------+ +--------+-------+---+ | New Bag | | 500 mg | 255 | | | | 8 9:15 | | mL/hr | | | | PST | | | | +---------+ +--------+-------+---+ | New Bag | | 500 mg | 255 | | | | 8 8:42 | | mL/hr | | | | PST | | | | +---------+ +--------+-------+---+ +---+---+ | | | +---+---+ + +-------+ +--------+---+---+ | buPROPion (WELLBUTRIN SR) 12 hr | Given | | 150 mg | | | | tablet 150 mg 150 mg, Oral, 2 | | 8 8:16 | | | | | TIMES DAILY, First dose on Tue | | PST | | | | | 05/10/17 at 0900, Do not cut or | | | | | | | crush. | | | | | | + +-------+ +--------+---+---+ +-------+ +--------+---+---+ | Given | | 150 mg | | | | | 8 20:53 | | | | | | PST | | | | +-------+ +--------+---+---+ | Given | | 150 mg | | | | | 8 8:40 | | | | | | PST | | | | +-------+ +--------+---+---+ + +---+ | | | + +---+ | dextrose 50% injection 12.5 g | | | 12.5 g, Intravenous, PRN, Low | | | Blood Sugar, Starting 05/08/17 | | | at 0529 | | + +---+ | | | + +---+ + +-------+ +--------+---+---+ | docusate sodium (COLACE) | Given | | 100 mg | | | | capsule 100 mg 100 mg, Oral, 2 | | 8 14:49 | | | | | TIMES DAILY, First dose on e | | PST | | | | | 05/10/17 at 1400, Swallow capsule | | | | | | | whole. | | | | | | + +-------+ +--------+---+---+ +-------+ +--------+---+---+ | Given | | 100 mg | | | | | 8 20:53 | | | | | | PST | | | | +-------+ +--------+---+---+ | Given | | 100 mg | | | | | 8 8:40 | | | | | | PST | | | | +-------+ +--------+---+---+ +---+---+ | | | +---+---+ + + + +--------+---------+---+ | fentaNYL (PF) 5 mcg/mL in | Rate/Dos | | 35 | 7 mL/hr | | | sodium chloride 0.9% 250 mL | e Change | 8 10:56 | mcg/hr | | | | infusion 25-250 mcg/hr (5-50 | | PST | | | | | mL/hr), at 5-50 mL/hr, | | | | | | | Intravenous, TITRATED, Starting | | | | | | | 05/08/17 at 0100, Initial | | | | | | | dose: 25 mgcg/hr | | | | | | + + + +--------+---------+---+ + + +--------+---------+---+ | Rate/Dose Change | | 40 | 8 mL/hr | | | | 8 11:56 | mcg/hr | | | | | PST | | | | + + +--------+---------+---+ | Rate/Dose Change | | 25 | 5 mL/hr | | | | 8 14:15 | mcg/hr | | | | | PST | | | | + + +--------+---------+---+ +---+---+ | | | +---+---+ + +-------+ +--------+---+---+ | heparin 1,000 units/mL | Given | 05/08/ | 2,000 | | | | injection 2,000-5,000 Units | | 8 21:31 | Units | | | | 2,000-5,000 Units, Intravenous, | | PST | | | | | PRN, Protocol/Titration, Starting | | | | | | | 05/08/17 at 0241, Use actual | | | | | | | body weight to calculate dose. | | | | | | | Round infusion dose to nearest 50 | | | | | | | units/hr. Round bolus dose to | | | | | | | nearest 100 units. CARDIAC DOSE | | | | | | | HEPARIN PROTOCOL STARTING | | | | | | | heparin infusion dose 800 | | | | | | | units/hr (12 units/kg/hr, initial | | | | | | | rate max 1,000 units/hr). Draw | | | | | | | APTT from an IV site other than | | | | | | | heparin IV site 6 hours after | | | | | | | starting a heparin infusion. | | | | | | | PTT Nomogram for ADJUSTING | | | | | | | heparin: APTT < 46 seconds: | | | | | | | Bolus 4,000 units & increase | | | | | | | rate by 200 units/hr Repeat | | | | | | | APTT 6 hr after change. APTT | | | | | | | 46-60 seconds: Bolus 2,000 | | | | | | | units & increase rate by 100 | | | | | | | units/hr Repeat APTT 6 hr after | | | | | | | change. APTT 61-98 seconds: | | | | | | | No bolus or rate change. Repeat | | | | | | | in AM. APTT 99-126 seconds: | | | | | | | Decrease rate by 100 units/hr | | | | | | | Repeat APTT 6 hr after change. | | | | | | | APTT 127-149 seconds: Stop | | | | | | | infusion 60 minutes then recheck | | | | | | | APTT. When APTT is 126 or less, | | | | | | | restart heparin at decreased | | | | | | | rate by 200 units/hr. Repeat | | | | | | | APTT 6 hr after change. APTT | | | | | | | 150-200 seconds: Stop infusion | | | | | | | 90 minutes then recheck APTT. | | | | | | | Repeat APTT every 90 minutes | | | | | | | until in goal range. When APTT | | | | | | | is in goal range, restart | | | | | | | heparin at decreased rate by 200 | | | | | | | units/hr. If two consecutive | | | | | | | APTT values are > 150 seconds, | | | | | | | contact prescriber. APTT >200 | | | | | | | seconds: Contact prescriber | | | | | | + +-------+ +--------+---+---+ +---+---+ | | | +---+---+ + +-------+ +--------+---+---+ | heparin 1,000 units/mL | Given | 2/25/201 | 4,000 | | | | injection 2,000-8,000 Units | | 8 3:35 | Units | | | | 2,000-8,000 Units, Intravenous, | | PST | | | | | ONCE, 05/08/17 at 0300, For 1 | | | | | | | dose, Heparin Protocol - Cardiac | | | | | | | Dose Initial Bolus Give heparin | | | | | | | 4,000 units x1 (60 units/kg IV x | | | | | | | 1, round to nearest 100 units, | | | | | | | max 4000 units) | | | | | | + +-------+ +--------+---+---+ +---+---+ | | | +---+---+ + +-------+ +--------+---+ + | heparin 5,000 units/mL | Given | | 5,000 | | Abdomen- | | injection 5,000 Units 5,000 | | 8 1:58 | Units | | LLQ | | Units, Subcutaneous, EVERY 12 | | PST | | | | | HOURS (2 times per day), First | | | | | | | dose on 05/08/17 at 0130 | | | | | | + +-------+ +--------+---+ + +---+---+ | | | +---+---+ + +-------+ +--------+---+ + | heparin 5,000 units/mL | Given | | 5,000 | | Abdomen- | | injection 5,000 Units 5,000 | | 8 8:16 | Units | | RUQ | | Units, Subcutaneous, EVERY 12 | | PST | | | | | HOURS (2 times per day), First | | | | | | | dose on Tue05/10/17 at 0900 | | | | | | + +-------+ +--------+---+ + +-------+ +--------+---+ + | Given | | 5,000 | | Abdomen- | | | 8 20:53 | Units | | RUQ | | | PST | | | | +-------+ +--------+---+ + | Given | | 5,000 | | Abdomen- | | | 8 8:39 | Units | | LLQ | | | PST | | | | +-------+ +--------+---+ + +---+---+ | | | +---+---+ + +---------+ + + +---+ | heparin in half-normal saline | New Bag | | 800 | 16 mL/hr | | | 50 units/mL infusion 0-3,000 | | 8 3:38 | Units/hr | | | | Units/hr (0-60 mL/hr), at 0-60 | | PST | | | | | mL/hr, Intravenous, TITRATED, | | | | | | | Starting 05/08/17 at 0300, Use | | | | | | | actual body weight to calculate | | | | | | | dose. Round infusion dose to | | | | | | | nearest 50 units/hr. Round bolus | | | | | | | dose to nearest 100 units. | | | | | | | CARDIAC DOSE HEPARIN PROTOCOL | | | | | | | STARTING heparin infusion dose | | | | | | | 800 units/hr (12 units/kg/hr, | | | | | | | initial rate max 1,000 units/hr). | | | | | | | Draw APTT from an IV site other | | | | | | | than heparin IV site 6 hours | | | | | | | after starting a heparin | | | | | | | infusion. PTT Nomogram for | | | | | | | ADJUSTING heparin: APTT < 46 | | | | | | | seconds: Bolus 4,000 units & | | | | | | | increase rate by 200 units/hr | | | | | | | Repeat APTT 6 hr after change. | | | | | | | APTT 46-60 seconds: Bolus 2,000 | | | | | | | units & increase rate by 100 | | | | | | | units/hr Repeat APTT 6 hr after | | | | | | | change. APTT 61-98 seconds: | | | | | | | No bolus or rate change. Repeat | | | | | | | in AM. APTT 99-126 seconds: | | | | | | | Decrease rate by 100 units/hr | | | | | | | Repeat APTT 6 hr after change. | | | | | | | APTT 127-149 seconds: Stop | | | | | | | infusion 60 minutes then recheck | | | | | | | APTT. When APTT is 126 or less, | | | | | | | restart heparin at decreased | | | | | | | rate by 200 units/hr. Repeat | | | | | | | APTT 6 hr after change. APTT | | | | | | | 150-200 seconds: Stop infusion | | | | | | | 90 minutes then recheck APTT. | | | | | | | Repeat APTT every 90 minutes | | | | | | | until in goal range. When APTT | | | | | | | is in goal range, restart | | | | | | | heparin at decreased rate by 200 | | | | | | | units/hr. If two consecutive | | | | | | | APTT values are > 150 seconds, | | | | | | | contact prescriber. APTT >200 | | | | | | | seconds: Contact prescriber | | | | | | + +---------+ + + +---+ + + + + +---+ | Restarted | | 600 | 12 mL/hr | | | | 8 14:52 | Units/hr | | | | | PST | | | | + + + + +---+ | Rate/Dose Change | | 700 | 14 mL/hr | | | | 8 21:30 | Units/hr | | | | | PST | | | | + + + + +---+ +---+---+ | | | +---+---+ + +-------+ +---------+---+ + | insulin lispro (humaLOG | Given | | 2 Units | | Arm-Righ | | KWIKPEN) 100 units/mL injection | | 8 16:29 | | | t Upper | | (pen) 0-12 Units 0-12 Units, | | PST | | | | | Subcutaneous, 4 TIMES DAILY WITH | | | | | | | MEALS & NIGHTLY, First dose on | | | | | | | 05/08/17 at 0800, CORRECTION | | | | | | | SCALE: Blood Glucose (BG) < | | | | | | | 150: None BG | | | | | | | 150-200: DAY: 2 units. NIGHT: | | | | | | | 0 units BG 201-250: DAY: 4 | | | | | | | units. NIGHT: 2 units BG | | | | | | | 251-300: DAY: 6 units. NIGHT: | | | | | | | 4 units BG 301-350: DAY: 8 | | | | | | | units. NIGHT: 6 units BG | | | | | | | 351-400: DAY: 10 units. NIGHT: 8 | | | | | | | units BG > 400 : DAY: 12 | | | | | | | units. NIGHT: 10 units | | | | | | | AND CALL PROVIDER | | | | | | | | | | | | | + +-------+ +---------+---+ + + +---+ | | | + +---+ | lidocaine 1%-EPINEPHrine | | | 1:100,000 injection 5 mL 5 mL, | | | Infiltration, ONCE PRN, for | | | oozing at cardiac cath site, | | | Starting Tue05/09/17 at 1440, For | | | 1 dose, For continued oozing | | | after sheath removal despite | | | pressure dressing and manual | | | pressure. Inject to affected area | | | x 1 followed by 10 minutes of | | | manual compression. | | + +---+ | | | + +---+ + +-------+ +-------+---+---+ | lisinopril (PRINIVIL, ZESTRIL) | Given | | 10 mg | | | | tablet 10 mg 10 mg, Oral, DAILY, | | 8 15:07 | | | | | First dose on Tue05/09/17 at | | PST | | | | | 1500 | | | | | | + +-------+ +-------+---+---+ +-------+ +-------+---+---+ | Given | | 10 mg | | | | | 8 8:16 | | | | | | PST | | | | +-------+ +-------+---+---+ | Given | | 10 mg | | | | | 8 8:40 | | | | | | PST | | | | +-------+ +-------+---+---+ +---+---+ | | | +---+---+ + +---------+ +-----+ +---+ | magnesium sulfate 2 g/50 mL | New Bag | | 2 g | 25 mL/hr | | | IVPB 2 g 2 g, Intravenous, | | 8 8:07 | | | | | Administer over 120 Minutes, PRN, | | PST | | | | | Per protocol, Starting Sun | | | | | | | 05/08/17 at 0058, ICU Use Only | | | | | | | Protocol NOT recommended if Scr | | | | | | | > 1.8, dialysis patients or CrCl | | | | | | | < 50 mL/min Magnesium = 1-1.9 | | | | | | | mg/dL Give magnesium sulfate 2 | | | | | | | g IV x1 * Check magnesium 2 | | | | | | | hours after infusion is completed | | | | | | | If magnesium still < 1.9 | | | | | | | mg/dL,replace as indicated per | | | | | | | protocol Maximum recommended | | | | | | | infusion rate = 1 gram/hour. | | | | | | + +---------+ +-----+ +---+ +---+---+ | | | +---+---+ + +-------+ +-------+---+---+ | methylPREDNISolone sodium | Given | | 40 mg | | | | succinate (solu-MEDROL) 40 mg/mL | | 8 15:09 | | | | | injection 40 mg 40 mg, | | PST | | | | | Intravenous, EVERY 8 HOURS (3 | | | | | | | times per day), First dose on Mon | | | | | | | 05/09/17 at 1400, Mix with 1 mL | | | | | | | provided diluent to make 40 | | | | | | | mg/mL. | | | | | | + +-------+ +-------+---+---+ +---+---+ | | | +---+---+ + +-------+ +-------+---+---+ | methylPREDNISolone sodium | Given | | 40 mg | | | | succinate (solu-MEDROL) 40 mg/mL | | 8 8:17 | | | | | injection 40 mg 40 mg, | | PST | | | | | Intravenous, EVERY 24 HOURS | | | | | | | (Daily), First dose on Tue | | | | | | | 05/10/17 at 0900, Mix with 1 mL | | | | | | | provided diluent to make 40 | | | | | | | mg/mL. | | | | | | + +-------+ +-------+---+---+ +---+---+ | | | +---+---+ + +-------+ +-------+---+---+ | methylPREDNISolone sodium | Given | | 60 mg | | | | succinate (solu-MEDROL) 62.5 | | 8 14:19 | | | | | mg/mL injection 60 mg 60 mg, | | PST | | | | | Intravenous, EVERY 8 HOURS (3 | | | | | | | times per day), First dose on Tue | | | | | | | 05/08/17 at 0130, Mix with 2 mL | | | | | | | provided diluent to make 62.5 | | | | | | | mg/mL. | | | | | | + +-------+ +-------+---+---+ +-------+ +-------+---+---+ | Given | | 60 mg | | | | | 8 21:04 | | | | | | PST | | | | +-------+ +-------+---+---+ | Given | | 60 mg | | | | | 8 5:55 | | | | | | PST | | | | +-------+ +-------+---+---+ +---+---+ | | | +---+---+ + +-------+ +---------+---+---+ | metoprolol tartrate (LOPRESSOR) | Given | | 12.5 mg | | | | tablet 12.5 mg 12.5 mg, Per OG | | 8 3:50 | | | | | Tube, ONCE, 05/08/17 at 0400, | | PST | | | | | For 1 dose | | | | | | + +-------+ +---------+---+---+ +---+---+ | | | +---+---+ + +-------+ +------+---+---+ | morphine injection 2 mg 2 mg, | Given | | 2 mg | | | | Intravenous, ONCE, 05/09/17 at | | 8 12:23 | | | | | 1230, For 1 dose | | PST | | | | + +-------+ +------+---+---+ + +---+ | | | + +---+ | nicotine (NICODERM) 21 mg/24 hr | | | 1 patch 1 patch, Transdermal, | | | DAILY PRN, Nicotine Craving, | | | Starting 05/08/17 at 2048 | | + +---+ | | | + +---+ + +-------+ +--------+---+---+ | nitroglycerin (NITROSTAT) SL | Given | | 0.4 mg | | | | tablet 0.4 mg 0.4 mg, | | 8 11:38 | | | | | Sublingual, EVERY 5 MIN PRN, | | PST | | | | | Chest pain, Starting 05/09/17 | | | | | | | at 1135, Maximum of 3 doses in 15 | | | | | | | minutes. | | | | | | + +-------+ +--------+---+---+ + + +--------+---+---+ | Given by Other | | 0.4 mg | | | | | 8 11:44 | | | | | | PST | | | | + + +--------+---+---+ | Given | | 0.4 mg | | | | | 8 11:49 | | | | | | PST | | | | + + +--------+---+---+ +---+---+ | | | +---+---+ + +-------+ +------+---+---+ | ondansetron (ZOFRAN) injection | Given | | 4 mg | | | | 4 mg 4 mg, Intravenous, EVERY 6 | | 8 2:06 | | | | | HOURS PRN, Nausea, Starting Sun | | PST | | | | | 05/08/17 at 0059, First line agent | | | | | | + +-------+ +------+---+---+ +-------+ +------+---+---+ | Given | | 4 mg | | | | | 8 9:52 | | | | | | PST | | | | +-------+ +------+---+---+ | Given | | 4 mg | | | | | 8 2:51 | | | | | | PST | | | | +-------+ +------+---+---+ +---+---+ | | | +---+---+ + +-------+ +------+---+---+ | oxybutynin (DITROPAN) tablet 5 | Given | | 5 mg | | | | mg 5 mg, Oral, 2 TIMES DAILY | | 8 16:57 | | | | | BEFORE MEALS, First dose on Tue | | PST | | | | | 05/10/17 at 0800, Give on an empty | | | | | | | stomach. | | | | | | + +-------+ +------+---+---+ +-------+ +------+---+---+ | Given | | 5 mg | | | | | 8 7:02 | | | | | | PST | | | | +-------+ +------+---+---+ | Given | | 5 mg | | | | | 8 16:02 | | | | | | PST | | | | +-------+ +------+---+---+ +---+---+ | | | +---+---+ + +-------+ + +---+---+ | oxyCODONE-acetaminophen | Given | | 1 tablet | | | | (PERCOCET) 5-325 mg per tablet 1 | | 8 15:07 | | | | | tablet 1 tablet, Oral, ONCE, Mon | | PST | | | | | 05/09/17 at 1515, For 1 dose | | | | | | + +-------+ + +---+---+ +---+---+ | | | +---+---+ + +-------+ + +---+---+ | oxyCODONE-acetaminophen | Given | | 1 tablet | | | | (PERCOCET) 5-325 mg per tablet | | 8 21:01 | | | | | 1-2 tablet 1-2 tablet, Oral, | | PST | | | | | EVERY 4 HOURS PRN, Pain, Starting | | | | | | | 05/09/17 at 2024 | | | | | | + +-------+ + +---+---+ +-------+ + +---+---+ | Given | | 1 tablet | | | | | 8 6:48 | | | | | | PST | | | | +-------+ + +---+---+ +---+---+ | | | +---+---+ + +-------+ +-------+---+---+ | pantoprazole (PROTONIX) DR | Given | | 40 mg | | | | tablet 40 mg 40 mg, Oral, DAILY | | 8 6:48 | | | | | BEFORE BREAKFAST, First dose on | | PST | | | | | 05/09/17 at 1645, Do not cut | | | | | | | or crush. | | | | | | + +-------+ +-------+---+---+ +-------+ +-------+---+---+ | Given | | 40 mg | | | | | 8 7:02 | | | | | | PST | | | | +-------+ +-------+---+---+ +---+---+ | | | +---+---+ + +-------+ +-------+---+---+ | pantoprazole (PROTONIX) | Given | | 40 mg | | | | injection 40 mg 40 mg, | | 8 8:17 | | | | | Intravenous, DAILY, First dose on | | PST | | | | | Divine 05/08/17 at 0900, Mix each | | | | | | | 40mg vial with 10 mL NS to make 4 | | | | | | | mg/mL. | | | | | | + +-------+ +-------+---+---+ +-------+ +-------+---+---+ | Given | | 40 mg | | | | | 8 8:46 | | | | | | PST | | | | +-------+ +-------+---+---+ +---+---+ | | | +---+---+ + +-------+ +--------+---+---+ | potassium chloride (K-DUR) ER | Given | | 20 mEq | | | | tablet 20 mEq 20 mEq, Oral, | | 8 8:40 | | | | | EVERY 2 HOURS, First dose on Tue | | PST | | | | | 05/11/17 at 0800, For 2 doses, | | | | | | | Dose is every 2 hours for 2 | | | | | | | doses, OK to substitute liquid | | | | | | | formulation if better tolerated. | | | | | | + +-------+ +--------+---+---+ +-------+ +--------+---+---+ | Given | | 20 mEq | | | | | 8 11:13 | | | | | | PST | | | | +-------+ +--------+---+---+ +---+---+ | | | +---+---+ + +-------+ +--------+---+---+ | potassium chloride 20 mEq/15 mL | Given | | 60 mEq | | | | liquid 40-60 mEq 40-60 mEq, | | 8 8:17 | | | | | Feeding Tube, PRN, Per protocol, | | PST | | | | | Starting 05/08/17 at 0058, | | | | | | | ICU Use Only Protocol NOT | | | | | | | recommended if Scr > 1.8, | | | | | | | dialysis patients or CrCl < 50 | | | | | | | mL/min [K+] =3.6 - 4 mEql/L | | | | | | | Give 40 mEq KCl PO/FT x 1 dose | | | | | | | [K+] =3 - 3.5 mEql/L Give 60 | | | | | | | mEq KCl PO/FT x 1 dose [K+] < | | | | | | | 3.0 mEql/L Give 40 mEq KCl | | | | | | | Q2H PO/FT x 2 doses for total | | | | | | | of 80 meq. * Obtain K+ level 4 | | | | | | | hours after replacement is | | | | | | | done. If K+ still < 3.6 mEq/L, | | | | | | | repeat replacement as | | | | | | | indicated per protocol. Give | | | | | | | either tablet, liquid, or IV but | | | | | | | never more than one form. | | | | | | + +-------+ +--------+---+---+ +---+---+ | | | +---+---+ + +---------+ +--------+-------+---+ | potassium chloride 40 mEq in | New Bag | | 40 mEq | 130 | | | sodium chloride 0.45% 500 mL IVPB | | 8 10:55 | | mL/hr | | | 40 mEq, Intravenous, Administer | | PST | | | | | over 4 Hours, ONCE, Tue05/11/17 | | | | | | | at 0800, For 1 dose | | | | | | + +---------+ +--------+-------+---+ +---+---+ | | | +---+---+ + +-------+ +-------+---+---+ | predniSONE (DELTASONE) tablet | Given | | 40 mg | | | | 40 mg 40 mg, Oral, DAILY, First | | 8 8:40 | | | | | dose on Tue05/11/17 at 0900 | | PST | | | | + +-------+ +-------+---+---+ +---+---+ | | | +---+---+ + +-------+ +-------+---+---+ | prochlorperazine (COMPAZINE) | Given | | 10 mg | | | | injection 10 mg 10 mg, | | 8 20:57 | | | | | Intravenous, EVERY 6 HOURS PRN, | | PST | | | | | Nausea, Vomiting, Starting Sun | | | | | | | 05/08/17 at 2047 | | | | | | + +-------+ +-------+---+---+ +---+---+ | | | +---+---+ + + + + +-------+---+ | propofol infusion (DIPRIVAN) 10 | Rate/Dos | | 40 | 16.2 | | | mg/mL infusion 5-100 mcg/kg/min | e Change | 8 9:16 | mcg/kg/m | mL/hr | | | | | PST | in | | | | 67.3 kg (2.019-40.38 mL/hr, | | | | | | | rounded to 2-40.4 mL/hr), at | | | | | | | 2-40.4 mL/hr, Intravenous, | | | | | | | TITRATED, Starting 05/08/17 at | | | | | | | 0100, Shake well. Do not filter. | | | | | | | Expires 12 hours after spiked. | | | | | | + + + + +-------+---+ + + + +-------+---+ | Rate/Dose Change | | 35 | 14.1 | | | | 8 10:00 | mcg/kg/m | mL/hr | | | | PST | in | | | + + + +-------+---+ | Rate/Dose Change | | 40 | 16.2 | | | | 8 11:57 | mcg/kg/m | mL/hr | | | | PST | in | | | + + + +-------+---+ + +---+ | | | + +---+ | propofol infusion (DIPRIVAN) 10 | | | mg/mL Starting 05/08/17 at | | | 0028, For 1 dose, JOSE, | | | JANAE: she override | | + +---+ | | | + +---+ + +-------+ +-------+---+---+ | propranolol (INDERAL) tablet 80 | Given | | 80 mg | | | | mg 80 mg, Oral, DAILY, First | | 8 9:59 | | | | | dose on 05/08/17 at 1530 | | PST | | | | + +-------+ +-------+---+---+ +-------+ +-------+---+---+ | Given | | 80 mg | | | | | 8 8:16 | | | | | | PST | | | | +-------+ +-------+---+---+ | Given | | 80 mg | | | | | 8 8:40 | | | | | | PST | | | | +-------+ +-------+---+---+ +---+---+ | | | +---+---+ + +---------+ +---+-------+---+ | sodium chloride 0.9% (NS) 1,000 | New Bag | | | 150 | | | mL with potassium chloride 60 | | 8 5:31 | | mL/hr | | | mEq infusion at 150 mL/hr, | | PST | | | | | Intravenous, ONCE, 05/10/17 at | | | | | | | 0530, For 1 dose, Per protocol | | | | | | | from order #[[id number]] | | | | | | + +---------+ +---+-------+---+ +---+---+ | | | +---+---+ + +---------+ +---+-------+---+ | sodium chloride 0.9% (NS) | New Bag | | | 150 | | | infusion at 75 mL/hr, | | 8 4:58 | | mL/hr | | | Intravenous, CONTINUOUS, Starting | | PST | | | | | 05/08/17 at 0130 | | | | | | + +---------+ +---+-------+---+ + + +---+ +---+ | New Bag | | | 75 mL/hr | | | | 8 12:52 | | | | | | PST | | | | + + +---+ +---+ | Rate/Dose Change | | | 75 mL/hr | | | | 8 2:09 | | | | | | PST | | | | + + +---+ +---+ +---+---+ | | | +---+---+ + +-------+ +------+---+---+ | zolpidem (AMBIEN) tablet 5 mg | Given | | 5 mg | | | | 5 mg, Oral, NIGHTLY PRN, | | 8 2:27 | | | | | Insomnia, Starting 05/09/17 at | | PST | | | | | 0218 | | | | | | + +-------+ +------+---+---+ +-------+ +------+---+---+ | Given | | 5 mg | | | | | 8 2:09 | | | | | | PST | | | | +-------+ +------+---+---+ +---+---+ | | | +---+---+ in this encounter
--- OUTSIDE RECORDS SUMMARY | 2017-07-12 16:51 | XMS | Encounter Summary ---
Demographics + + + | Address | [address] | | | [place] [address] | + + + | Home Phone | | + + + | Preferred Language | Unknown | + + + | Marital Status | | + + + | Mandaen Affiliation | 1028 | + + + | Race | Unknown | + + + | Ethnic Group | Unknown | + + + Author + + + | Author | [facility] | | | and [place]ren[place] | + + + | Organization | [facility] | | | and [place] | + + + | Address | Unknown | + + + | Phone | Unavailable | + + + Support + + +---------+ + | Name | Relationship | Address | Phone | + + +---------+ + | Mila Desai | ECON | Unknown | | + + +---------+ + | Joselius Desai | ECON | Unknown | | + + +---------+ + Care Team Providers + +------+ + | Care Wastewater Treatment Plant Supervisor Name | Role | Phone | + +------+ + | Bry Vaughn DO | PCP | | + +------+ + Reason for Visit Auth/Cert +--------+--------+ + [...] | | | | | | | ([facility]) sob | | | | | | | blood bank laboratory technician | | | | | | | procedure | | | | | | | needed | | | | | | | Procedures | | | | | | | CV LHC | | | +--------+--------+ + + + + Encounter Details +--------+---------+ + + + | Date | Type | Department | Care Team | Description | +--------+---------+ + + + | 05/09/ | Surgery | [facility] | Johnny Johnson MD | CV [facility] | | 2018 | | MED CTR [facility] | | | | | | [address] | | | | | | [place] | | | | | | [address] | | | | | | [phone] | | | +--------+---------+ + + + Social History + +-------+ [...] 0600 PST | + + + + in this encounter Discharge Summaries Narcisa Sanchez MD - 05/11/2017 0741 PSTFormatting of this note may be different fr om the original. [place], [place] HOSPITALIST DISCHARGE SUMMARY Pt. Name/Age/: Amy Coleman [...] patient was turning blue. She call 911, dalia vitor became unresponsive, in she was intubated [...] was started on lisinopril 10 mg daily, continu e on aspirin 81 mg daily. She was continued on his statin, as well as propranolol. On day of discharge she is feeling well. Physical exam and laboratory data are benign. Sh bartolome is recommended to continue follow-up with her [...] on discharge day PROCEDURES AND CONSULTS: Procedures [facility] CORONARY ANGIOGRAPHY [place]IN[place]: Right LEFT MAIN [...] week. Specialty: Internal Medicine Contact information: [address] [facility] [address] [place] [address] Demarcus Jurado MD In 3 weeks. Specialty: Gastroenterology Contact information: [address], [place] [address] [facility] [address] Condition: Patient being discharged with condition improved Diet: low salt low fat Greater than 30 minutes were spent on discharge and coordination of post-hospital care. Electronically signed by: Narcisa Boone MD, 05/11/2017 7:41 Located within [facility] Portions of this chart may have been created with [employer] voice recognition software. Occasi onal wrong-word or [...] worse Dizziness or weakness Date Last Reviewed: 11/13/201519999624-0107 [employer]. [address] [place] [address], [place] [address]. All righ ts reserved. This information is not intended as a substitute for professional medical care. Always follow your healthcare professional's instructions. The following attachments cannot be sent through Care Everywhere.Kicking the Smoking Habit (Portuguese)Coronary Artery Disease (CAD), Understanding (Portuguese)in this encounter Medications at Time of Discharge [...] by | 360 mL | 0 | // | | | albuterol-ipratropiu | nebulization every [...] Notes Dewey Harris, PharmD - 05/11/2017 1206 Amparo Coleman was admitted for COPD exacerb ation and discharged home today (05/11/2017) Taught AVS [...] providers and keep list current. Dewey Harris, PharmD 05/11/2017 12:05 Carmelita Fulton, WAITER/WAITRESS TAKE OUT - 05/11/2017 1038 PSTFormatting of this note may be different f rom the original. Amy walked with me around the the nurse station [place] without any supplemental oxygen, h er SpO2 values remained > 93%, H/R 88, Respirations were 18 to 20. 05/11/17 1037 Oxygen Therapy O2 Device room air Home O2 eval performed? yes Resting on RA (%) 95 Exercising on RA (%) 97 Vitals Pulse 89 Resp 20 SpO2 98 % Carmelita Fulton, WAITER/WAITRESS TAKE OUT - 05/11/2017 1031 PSTDibozena walked with me around the nurses sta tion [place] without any supplemental oxygen on, her SpO2 value remained > 93%. No SOB observ ed pt denied when asked if she was SOB. H/R remained in low 80's, respirations 18 to 20. Narcisa Crouch MD - 05/10/2017 0723 PSTFormatting of this note may be different from t he original. [facility] [place] HOSPITALIST PROGRESS NOTE Patient: Amy Coleman : 1955: Age: 61 y.o. MedRec: [id number] Admission date: 05/08/2017 Hospital day # : [...] PRN Orlando Wall MD 4 mg at 05/10/17 0251 oxyCODONE-acetaminophen [...] Orlando Wall MD 10 mg at 05/08/17 2057 propranolol (INDERAL) tablet 80 mg 80 mg [...] T waves in leads V4-6 Confirmed by LUCIO SU MD ([id number]) on 05/10/2017 7:08:38 AM POC Glucose Collection [...] Procedure Component Value Units Date/Time Culture, Blood [[id number]] (Normal) Collected: 05/08/17 0145 Order Status: Completed Lab Status: Preliminary result Updated: 05/08/17 140 Specimen: Blood from Line Culture No growth: Monitored continually by instrument for 5 days Culture, Blood [[id number]] (Normal) Collected: 05/08/17 0119 Order Status: Completed Lab Status: Preliminary result Updated: 05/08/171400 Specimen: Blood from Peripheral Blood Culture No growth: Monitored continually by instrument for 5 days Culture, MRSA [[id number]] Collected: 05/08/17 0032 Order Status: Completed Lab Status: Final result Updated: 05/09/17 08 Specimen: Respiratory from Nares Culture Negative for [...] in bilateral lower extremities Neuro: nonfocal. strength 07/16 Assessment and Plan Active Hospital Problems Diagnosis [...] may have und erlying coronary artery disease. -C elevated LV end diastolic pressure, mild to [...] 24-48 hrs Narcisa Boone MD 05/10/2017 7:23 [facility] Portions of this chart may have been created with Zhaopin voice recognition software. Occasi onal wrong-word or [...] at 05/08/17 2130 700 Units/hr at 05/08/17 213 insulin lispro (humaLOG KWIKPEN) 100 units/mL injection [...] ECG No previous ECGs available Confirmed by LUCIO SU MD ([id number]) on 05/08/2017 8:24:47 AM LVEF-TTE TRANSTHORACIC ECHO [...] lead V2 Confirmed by LUCIO SU MD ([id number]) on 05/09/2017 7:21:00 AM MG 05/08/2017 2.3 [...] may be different fr om the original. [facility] [place] HOSPITALIST PROGRESS NOTE Patient: Amy Coleman : 1955: Age: 61 y.o. MedRec: [id number] Admission date: 05/08/2017 Hospital day # : [...] mcg/hr Intraveno us Titrated Orlando Wall MD Stopped at 05/08/17 1433 heparin 1,000 units/mL injection 2,000-5,000 Units 2,000-5,000 Units Intravenous PRN S tina Wall MD 2,000 Units at 05/08/17 2131 heparin in half-normal saline 50 units/mL infusion 0-3,000 Units/hr Intravenous Titrat ed Orlando Wall MD 14 mL/hr at 05/08/17 2130 700 Units/hr at 05/08/17 213 insulin lispro (humaLOG KWIKPEN) 100 units/mL injection [...] Orlando Wall MD 10 mg at 05/08/172056 propofol infusion (DIPRIVAN) 10 mg/mL infusion 5-100 mcg/kg/min Intravenous Titrated S tina Wall MD Stopped at 05/08/17 1415 propranolol (INDERAL) tablet 80 mg 80 mg Oral Daily Narcisa Boone MD 80 mg at 05/08/17 1616 sodium chloride 0.9% (NS) infusion Intravenous Fire Prevention Captain Johnny Luther MD sodium chloride 0.9% (NS) [...] - 109 mg/dL ECHO Complete Collection Time: 05/08/17 9:59 Result Value Ref Range LVEF-TTE TRANSTHORACIC [...] Procedure Component Value Units Date/Time Culture, Blood [[id number]] (Normal) Collected: 05/08/17 0145 Order Status: Completed Lab Status: Preliminary result Updated: 05/08/171400 Specimen: Blood from Line Culture No growth: Monitored continually by instrument for 5 days Culture, Blood [[id number]] (Normal) Collected: 05/08/17 0119 Order Status: Completed Lab Status: Preliminary result Updated: 05/08/171400 Specimen: Blood from Peripheral Blood Culture No growth: Monitored continually by instrument for 5 days Culture, MRSA [[id number]] Collected: 05/08/1731 Order Status: Sent Lab Status: [...] reports feeling malaise with shortness of breath (hand hardener marla - not worse than baseline), headache [...] possible PCI Narcisa Boone MD 05/09/2017 7:18 [facility] Portions of this chart may have been created with Zhaopin voice recognition software. Occasi onal wrong-word or [...] per week Marijuana smoke Daily Best possible PRODUCT SAFETY TECHNICAL ASSISTANT medication list after pharmacy review: PT REPORTED [...] Take 1 tablet by mouth Daily. T aking nitroglycerin (NITROSTAT) 0.[address] 0.4 mg under the tongue every 5 minutes a s needed for Chest pain. Taking oxybutynin (DITROPAN) 5 mg tablet Take 5 mg by mouth 2 times daily. Taking propranolol (INDERAL) 80 mg tablet Take 80 mg by mouth Daily. For tremors Taking umeclidinium (INCRUSE ELLIPTA) 62.5 mcg/puff inhaler Inhale 1 puff into the lungs Daily. T aking Medication review performed and electronically signed by Yolanda Grullon, Waste Collector 15:16 Reviewed by Светлана Mendoza, PharmD 05/08/2017 15:28 Lavinia Lo Chaplain - 05/08/2017 0826 [facility] Spiritual Care Amy Coleman is a 61 y.o. female who is admitted for Respiratory failure (HCC) [J96.90]. Spiritual Assessment: Patient was intubated at the time of visit. Lkhwjvap-yt-rwy, Raciel, was present and she reported that she is very close to the patient. She and the patient has discussed EOL toget her in the Tkjoyezu-bp-ukc is hoping for recovery for patient. Spiritual [...] can't relax until she knows h er jtzmyh-iz-fxm will be okay. Will see the patient as requested. If there are any other spiritual care issues that arise, please contact external grinder. Narcisa Sanchez MD - 05/08/2017 0721 PSTFormatting of this note may be different fr om the original. [facility] [place] HOSPITALIST PROGRESS NOTE Patient: Amy Coleman : 1955: Age: 61 y.o. MedRec: [id number] Admission date: 05/08/2017 Hospital day # : [...] mL/hr at 05/08/17 0338 800 Units/hr at 05/08/17337 insulin lispro (humaLOG KWIKPEN) 100 units/mL injection [...] mcg/kg/min Intravenous Titrated S tina Wall MD 12.1 mL/hr at 05/08/175 30 mcg/kg/min at 05/08/1744 sodium chloride 0.9% (NS) infusion Intravenous Continuous Orlando Wall MD 150 mL/hr at 05/08/1702 150 mL at 05/08/17 06 Current Infusions: fentaNYL 75 mcg/hr (05/08/17 0707) heparin infusion 800 Units/hr (05/08/178) propofol infusion 30 mcg/kg/min (05/08/175) sodium chloride 0.9% 150 mL (05/08/17601) Objective [...] Procedure Component Value Units Date/Time Culture, Blood [[id number]] Collected: 05/08/17 0145 Order Status: Sent Lab Status: In process Updated: 05/08/17152 Specimen: Blood from Line Culture, Blood [[id number]] Collected: 05/08/17 011 Order Status: Sent Lab Status: In process Updated: 05/08/17152 Specimen: Blood from Peripheral Blood Culture, MRSA [[id number]] Collected: 05/08/1731 Order Status: Sent Lab Status: [...] respiratory arrest, never lost pulse. Transferred from [facility]. Family member at bedside reported patient hav [...] listed conditions Narcisa Boone MD 05/08/2017 7:21 [facility] Portions of this chart may have been created with Zhaopin voice recognition software. Occasi onal wrong-word or [...] + + + | Blood | [facility] [address] | | | [place] [address] | + + + Basic Metabolic Panel [...] GLOMERULAR FILTRATION | >=60 mL/min/1.73m2 | | AUSTRIAN | RATE,ESTIMATED mL/min/1.41b2Wxsb than | | | | 60 Chronic [...] | + + + | Blood | [facility] [address] | | | [place] [address] | + + + Magnesium (05/11/2017 0455) + +-------+ + | Component | Value | Ref Range | + +-------+ + | MG | 1.9 | 1.8 - 2.5 mg/dL | + +-------+ + + + + | Specimen | Performing Laboratory | + + + | Blood | [facility] [address] | | | [place] [address] | + + + CBC with Differential (05/11/2017 0455) + + + + | [...] [address] | | | [place] [address] | + + + POC Glucose (05/10/20172056) [...] [address] | | | [place] [address] | + + + POC Glucose (05/10/2017 1654) + +---------+ + | Component | Value | Ref Range | + +---------+ + | Glucose, POC | 113 (H) | 70 - 109 mg/dL | + +---------+ + + + + | Specimen | Performing Laboratory | + + + | Blood | [facility] [address] | | | [place] [address] | + + + POC Glucose (05/10/2017 [...] [address] | | | [place] [address] | + + + XR Chest AP [...] | + + + | Blood | [facility] [address] | | | [place] [address] | + + + Basic Metabolic Panel (05/10/2017 0335) + + + + | [...] GLOMERULAR FILTRATION | >=60 mL/min/1.73m2 | | AUSTRIAN | RATE,ESTIMATED mL/min/1.31g9Lxrc than | | | | 60 Chronic [...] | + + + | Blood | [facility] [address] | | | [place] [address] | + + + Magnesium (05/10/2017 0335) + +-------+ + | Component | Value | Ref Range | + +-------+ + | MG | 2.0 | 1.8 - 2.5 mg/dL | + +-------+ + + + + | Specimen | Performing Laboratory | + + + | Blood | [facility] [address] | | | [place] [address] | + + + POC Glucose (05/09/20175) + +-------+ + | Component | Value | Ref Range | + +-------+ + | Glucose, POC | 104 | 70 - 109 mg/dL | + +-------+ + + + + | Specimen | Performing Laboratory | + + + | Blood | [facility] [address] | | | [place] [address] | + + + POC Glucose (05/09/20171643) + +-------+ + | Component | Value | Ref Range | + +-------+ + | Glucose, POC | 104 | 70 - 109 mg/dL | + +-------+ + + + + | Specimen | Performing Laboratory | + + + | Blood | [facility] [address] | | | [place] [address] | + + + CV CARDIAC PROCEDURE (05/09/2017 1402) + + | Narrative | + + | Johnny Luther MD 05/09/2017 14:39 CARDIAC CATHETERIZATION REPORT DATE | | OF PROCEDURE: 05/09/17 PRECATHETERIZATION INFORMED CONSENT : Yes | | TIMEOUT Before start of procedure done: Yes DECK LID FITTER: Johnny Johnson M.D., | | Brenda PRIMARY PHYSICIAN: Bry Vaughn, PROCEDURES PERFORMED: Left | | heart catheterization, selective coronary arteriography INDICATIONS | | : 61-year-old woman admitted with acute respiratory failure, elevated troponin | | ARTERIAL ACCESS: Right radial artery 6 Malagasy CLOSURE DEVICE:. TR band | | DESCRIPTION [...] using a Seldinger technique and a 6 Malagasy sheath was inserted. 3 mg per | | mL and 300 g of nitroglycerin were administered through the side port of the | | radial artery sheath. 4000 units of intravenous heparin was | | administered. Selective coronary arteriography was performed using a 5 Malagasy | | Ole catheter. The 5 Malagasy Ole catheter was advanced across the aortic [...] | lifestyle modification Johnny Johnson M.D., F.A.C.C. Accounts Receivable Executive | | [place], [place] | + + POC Glucose (05/09/2017 [...] | | | [place] [address] | + + + ECG 12 lead [...] GEORGES HU, | | | | LUCIO ([id number]) on 05/10/2017 7:08:38 AM | | | | | | + + + + + + + | Specimen | Performing Laboratory | + + + | | [facility] | + + + PTT (05/09/2017915) + +--------+ + | Component | Value | Ref Range | + +--------+ + | PTT | 65 (H) | 22 - 36 seconds | + +--------+ + + + + | Specimen | Performing Laboratory | + + + | Blood | [facility] [address] | | | [place] [address] | + + + POC Glucose (05/09/2017 0749) + +---------+ + | Component | Value | Ref Range | + +---------+ + | Glucose, POC | 112 (H) | 70 - 109 mg/dL | + +---------+ + + + + | Specimen | Performing Laboratory | + + + | Blood | [facility] | | | [place] [address] | + + + PTT (05/09/2017306) + +--------+ + | Component | Value | Ref Range | + +--------+ + | PTT | 85 (H) | 22 - 36 seconds | + +--------+ + + + + | Specimen | Performing Laboratory | + + + | Blood | [facility] [address] | | | [place] [address] | + + + Protime INR (05/09/2017306) [...] [facility] [address] | | | [place] [address] | + + + Magnesium (05/09/2017 0307) + +-------+ + | Component | Value | Ref Range | + +-------+ + | MG | 2.2 | 1.8 - 2.5 mg/dL | + +-------+ + + + + | Specimen | Performing Laboratory | + + + | Blood | [facility] [address] | | | [place] [address] | + + + Comprehensive Metabolic Panel (05/09/2017306) + + + + | Component [...] GLOMERULAR FILTRATION | >=60 mL/min/1.73m2 | | AUSTRIAN | RATE,ESTIMATED mL/min/1.21m4Rhfb than | | | | 60 Chronic [...] [address] | | | [place] [address] | + + + CBC with Differential [...] + + + | Blood | [facility] [address] | | | [place] [address] | + + + Troponin I (05/09/2017 011) + + + + | Component | [...] | | | | myocardial infarction. [employer] | | | | of Cardiology [...] [facility] [address] | | | [place] [address] | + + + POC Glucose (05/08/20172137) + +---------+ + | Component | Value | Ref Range | + +---------+ + | Glucose, POC | 126 (H) | 70 - 109 mg/dL | + +---------+ + + + + | Specimen | Performing Laboratory | + + + | Blood | [facility] [address] | | | [place] [address] | + + + PTT (05/08/20172042) + +--------+ + | Component | Value | Ref Range | + +--------+ + | PTT | 53 (H) | 22 - 36 seconds | + +--------+ + + + + | Specimen | Performing Laboratory | + + + | Blood | [facility] [address] | | | [place] [address] | + + + Troponin I (05/08/20175) + + + + | Component | [...] | | | | previous results. [employer] | | | | Cardiology [...] - LABORATORY [address] | | | [place] [address] | + + + POC Glucose (05/08/2017 1628) + +---------+ + | Component | Value | Ref Range | + +---------+ + | Glucose, POC | 157 (H) | 70 - 109 mg/dL | + +---------+ + + + + | Specimen | Performing Laboratory | + + + | Blood | [facility] [address] | | | [place] [address] | + + + PTT (05/08/2017 1406) + +-------+ + | Component | Value | Ref Range | + +-------+ + | PTT | 30 | 22 - 36 seconds | + +-------+ + + + + | Specimen | Performing Laboratory | + + + | Blood | [facility] [address] | | | [place] [address] | + + + POC Blood Gases [...] | + + + | | [facility] [address] | | | [place] [address] | + + + ECG 12 lead [...] inverted in lead | | | | [id number] by LUCIO SU MD ([id number]) on | | | | 05/09/2017 7:21:00 [...] [address] | | | [place] [address] | + + + PTT (05/08/2017 1250) + +--------+ + | Component | Value | Ref Range | + +--------+ + | PTT | 99 (H) | 22 - 36 seconds | + +--------+ + + + + | Specimen | Performing Laboratory | + + + | Blood | [facility] [address] | | | [place] [address] | + + + Magnesium (05/08/20171249) + +-------+ + | Component | Value | Ref Range | + +-------+ + | MG | 2.3 | 1.8 - 2.5 mg/dL | + +-------+ + + + + | Specimen | Performing Laboratory | + + + | Blood | [facility] [address] | | | [place] [address] | + + + Potassium (05/08/20171249) + +-------+ + | Component | Value | Ref Range | + +-------+ + | K | 4.1 | 3.5 - 5.1 mmol/L | + +-------+ + + + + | Specimen | Performing Laboratory | + + + | Blood | [facility] [address] | | | [place] [address] | + + + Troponin I (05/08/2017 1250) + + + + | Component | Value | Ref Range | + + + + | Troponin I | 2.73 ()Comment: Consistent with previous | <0.06 ng/mL | | | results. Reference Ranges:0.00-0.06 = | | | | NORMAL>0.06 = SUSPICIOUS FOR | | | | MYOCARDIAL DAMAGE NOTE: Values greater than | | | | 0.50 ng/mL have been shown to be strongly | | | | associated with acute myocardial | | | | infarction. [employer] | | | | Cardiology [...] LABORATORY [address] | | | [place] [address] | + + + POC Glucose (05/08/2017 [...] [address] | | | [place] [address] | + + + Protime INR (05/08/2017 [...] + + + | Blood | [facility] [address] | | | [place] [address] | + + + PTT (05/08/2017 1041) + + + + | Component | Value | Ref Range | + + + + | PTT | 189 (HH)Comment: Critical Result called to | 22 - [...] [facility] [place] [address] [address] | | | [place] [address] | + + + ECHO Complete (05/08/2017 [...] Number [id number] I | | Patient Number [id number] Date of Study 05/08/2017 | | Visit Number [id number] Referring | | Physician NICOLE TSANG Number Date of 1955 | | Mold Chipper GIA ROA RDCS Age 61 | | year(s) Interpreting JOHNNY JOHNSON MD, | | | | History 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 [employer] 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 Female | | Nurse Stress Prescriptionist | | Procedure Type of Study TTE [...] | Electronically signed by JOHNNY JOHNSON MD, [employer](Interpreting physician) on | | 05/08/2017 04:56 PM [...] 38.51 ml | | | | EF Kqctivphc79% Left Ventricle Diastolic Dimension: 4.9 | | cm Systolic Dimension: 3.67 cm Septum Diastolic: 1.03 cm PW | | Diastolic: 1.13 cm EF Calculated: 44% Miscellaneous Aorta Aortic Root: | | 3.27 cm Ascending Aorta: 3.43 cm | + + + + | Procedure Note | + + | Avelino, Rad Results In - 05/08/2017 1656 [facility] Transthoracic Echocardiography Report (TTE) | | | | Demographics | | | | Patient Name JARED MONTAÑO Room Number 449 | | I | | | | Patient Number [id number] Date of Study 05/08/2017 | | | | Visit Number [id number] | | | | Referring Physician NICOLE TSANG | | Number | | | | Date of 1955 Mold Chipper GIA [facility] | | | | Age 61 year(s) Interpreting JOHNNY JOHNSON MD, | | History 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 [employer] | | | | Gender Female Nurse | | | | Stress Prescriptionist | | | | Procedure | | [...] | Electronically signed by JOHNNY JOHNSON MD, [facility](Interpreting | | physician) on 05/08/2017 04:56 PM [...] LA Volume: 38.51 ml | | EF Npsccwuvj99% | | | | Left Ventricle | [...] 3.43 cm | + + POC Glucose (05/08/2017841) + +---------+ + | Component | Value | Ref Range | + +---------+ + | Glucose, POC | 127 (H) | 70 - 109 mg/dL | + +---------+ + + + + | Specimen | Performing Laboratory | + + + | Blood | [facility] [address] | | | [place] [address] | + + + Troponin I (05/08/2017 [...] | | | | myocardial infarction. [employer] | | | | of Cardiology [...] [address] | | | [place] [address] | + + + Lactic Acid (05/08/2017 0648) + +-------+ + | Component | Value | Ref Range | + +-------+ + | LACTATE | 1.4 | 0.5 - 2.2 mmol/L | + +-------+ + + + + | Specimen | Performing Laboratory | + + + | Blood | [facility] [address] | | | [place] [address] | + + + CBC no Differential [...] [address] | | | [place] [address] | + + + Basic Metabolic Panel (05/08/201748) + + + + | Component | [...] GLOMERULAR FILTRATION | >=60 mL/min/1.73m2 | | AUSTRIAN | RATE,ESTIMATED mL/min/1.36b2Koep than | | | | 60 Chronic [...] [facility] [address] | | | [place] [address] | + + + PTT (05/08/2017314) + +-------+ + | Component | Value | Ref Range | + +-------+ + | PTT | 26 | 22 - 36 seconds | + +-------+ + + + + | Specimen | Performing Laboratory | + + + | Blood | [facility] [address] Serafina | | | [place] [address] | + + + ECG 12 lead [...] GEORGES | | | | LUCIO HU ([id number]) on 05/08/2017 8:24:47 AM | | | |No previous ECGs available | | | |Confirmed by LUCIO SU MD ([id number]) on 05/08/2017 8:24:47 AM | | | [...] + + + | Blood | [facility] G[facility]le [facility] | | | [place] [address] | + + + Culture, Blood (05/08/2017144) + + + + | Component | Value | Ref Range | + + + + | Culture | No growth after 5 days incubation. | | + + + + + + + | Specimen | Performing Laboratory | + + + | Blood - Line | [facility] | | | [place] [address] | + + + Troponin I (05/08/2017 0130) + + + + | Component | Value | Ref Range | + + + + | Troponin I | 2.91 (HH)Comment: Reference | <0.06 ng/mL | | | Ranges:0.00-0.06 = NORMAL>0.06 = | | | | SUSPICIOUS FOR MYOCARDIAL DAMAGE NOTE: | | | | Values greater than 0.50 ng/mL have been | | | | shown to be strongly associated with acute | | | | myocardial infarction. [employer] | | | | [employer] Cardiology [...] LABORATORY Gisele Wilson | | | [place] [address] | + + + Magnesium (05/08/20170) + +-------+ + | Component | Value | Ref Range | + +-------+ + | MG | 1.9 | 1.8 - 2.5 mg/dL | + +-------+ + + + + | Specimen | Performing Laboratory | + + + | Blood | [facility] Gisele Wilson | | | [place] [address] | + + + Culture, Blood (05/08/2017 0119) + + + + | Component | Value | Ref Range | + + + + | Culture | No growth after 5 days incubation. | | + + + + + + + | Specimen | Performing Laboratory | + + + | Blood - Peripheral | [facility] Gisele Wilson | | Blood | [place] [address] | + + + POC Blood Gases (05/08/2017112) + + + + | Component | [...] Laboratory | + + + | | [facility] Gisele Wilson | | | [place] [address] | + + + XR Chest AP [...] 12:37 PM | + + Culture, MRSA (05/08/2017 0032) + + + + | Component | [...] + + | Respiratory - Nares | [facility] Gisele Wilson | | | [place] [address] | + + + LABS - EXTERNAL [...] + + in this encounter Visit Diagnoses Not on filein this encounter Admitting Diagnoses + + | Diagnosis | + + | Respiratory failure (HCC) - sob | + + | Acute respiratory failure | + + | 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 | + + Administered Medications [...] | heparin 1,000 units/mL | Given | | 4,000 | | | | injection ONCE PRN, Starting Mon | | 8 13:43 | Units | | | | 05/09/17 at 1343, Intra-op | | PST | | | | + +-------+ +--------+---+---+ [...] | | +---+---+ + +-------+ +--------+---+---+ | iohexol (OMNIPAQUE 350) 350 | Given | | 65 mLs | | | | mg/mL injection ONCE PRN, | | 8 13:53 | | | | | Starting 05/09/17 at 1353, | | PST | | | | | Intra-op | | | | | | + +-------+ +--------+---+---+ +---+---+ | | | +---+---+ + +-------+ +---------+---+ + | lidocaine 1% injection ONCE | Given | | 0.5 mLs | | Surgical | | PRN, Starting 05/09/17 at | | 8 13:38 | | | Site | | 1338, Intra-op | | PST | | | | + +-------+ +---------+---+ + + +---+ | | | + +---+ | lidocaine 1%-EPINEPHrine | | | 1:100,000 injection 5 mL 5 mL, | | | Infiltration, ONCE PRN, for | | | oozing at cardiac cath site, | | | Starting 05/09/17 at 1440, For | | | 1 [...] | | | | First dose on 05/09/17 at | | PST | | [...] PST | | | | +-------+ +-------+---+---+ + +---+ | | | + +---+ [...] | | +---+---+ + +-------+ +---------+---+---+ | nitroglycerin 100 mcg/mL | Given | | 300 mcg | | | | syringe ONCE PRN, Starting Mon | | 8 13:40 | | | | | 05/09/17 at 1340, Intra-op | | PST | | | | + +-------+ +---------+---+---+ [...] | | +---+---+ + +-------+ +-------+---+---+ | propranolol (INDERAL) tablet [...] | | +---+---+ + +-------+ +------+---+---+ | verapamil injection ONCE PRN, | Given | | 3 mg | | | | Starting 05/09/17 at 1339, | | 8 13:39 | | | | | Intra-op | | PST | | | | + +-------+ +------+---+---+ +---+---+ | | | +---+---+ [...]
--- OUTSIDE RECORDS SUMMARY | 2017-07-12 16:51 | XMS | Encounter Summary ---
Demographics + + + | Address | [address] | | | [place] [address] | + + + | Home Phone | | + + + | Preferred Language | Unknown | + + + | Marital Status | | + + + | Restorationism Affiliation | 1028 | + + + | Race | Unknown | + + + | Ethnic Group | Unknown | + + + Author + + + | Author | [facility] | | | and [place] | + + + | Organization | [facility] | | | and [place] [...] Team Providers + +------+ + | Care Bed And Breakfast Innkeeper Name | Role | Phone | + +------+ + | Bry Vaughn DO | PCP | | + +------+ + Encounter Details +--------+ + + + + | Date | Type | Department | Care Team | Description | +--------+ + + + + | 05/09/ | Procedure | [facility] | | | | 2018 | Pass | [facility] | | | | | | [address] | | | | | | [place] | | | | | | [address] | | | | | | [phone] | | | +--------+ + + + [...] | | + +---+---+---+ + + | Comments: Has cut down on sloking [...]
--- OUTSIDE RECORDS SUMMARY | 2017-07-12 16:51 | XMS | Encounter Summary ---
Demographics + + + | Address | [address] | | | [place] [address] | + + + | Home Phone | | + + + | Preferred Language | Unknown | + + + | Marital Status | Single | + + + | Methodist Affiliation | Unknown | + + + | Race | Unknown | + + + | Ethnic Group | Unknown | + + + Author + + + | Author | [facility] | + + + | Organization | [facility] | + + + | Address | Unknown | + + + | Phone | Unavailable | + + + Support + + +---------+ + | Name | Relationship | Address | Phone | + + +---------+ + | Joseluis Desai | ECON | Unknown | | + + +---------+ + Care Team Providers + +------+ + | Care Director Of Business Applications Name | Role | Phone | + [...] [place] | | | | | | [address] | | | | | | [phone] | | | +--------+ + + + [...]
--- OUTSIDE RECORDS SUMMARY | 2017-07-12 16:51 | XMS | Clinical Summary ---
Demographics + + + | Address | [address] | | | [place] [address] | + + + | Home Phone | | + + + | Preferred Language | Unknown | + + + | Marital Status | Single | + + + | Christianity Affiliation | Unknown | + + + | Race | Unknown | + + + | Ethnic Group | Unknown | + + + Author + + + | Author | [facility] | + + + | Organization | [facility] | + + + | Address | Unknown | + + + | Phone | Unavailable | + + + Support + + +---------+ + | Name | Relationship | Address | Phone | + + +---------+ + | Joseluis Desai | ECON | Unknown | | + + +---------+ + Care Team Providers + +------+ + | Care Sales Operations Coordinator Name | Role | Phone | + [...] | | | | Activ | | [place] ([facility] | lungs. | | | | [...] + | COPD (chronic obstructive pulmonary disease) ([facility]) | 10/22/2013 | + + + + [...] + | 04/21/ | Documentati | | [facility] | Other ([facility] [address] | | [...] | | [place] | | | | [phone] | | | APPLIANCE ASSEMBLER | | | | | + +--------+ [...] | | al/Fam | | 1955 | [phone] | [place] | | | julito | | | [phone] | [phone] | + +--------+ +--------+ + +
--- OUTSIDE RECORDS SUMMARY | 2017-07-12 16:51 | XMS | Encounter Summary ---
Demographics + + + | Address | [address] | | | [place] [address] | + + + | Home Phone | | + + + | Preferred Language | Unknown | + + + | Marital Status | | + + + | Confucianist Affiliation | 1028 | + + + | Race | Unknown | + + + | Ethnic Group | Unknown | + + + Author + + + | Author | [facility] | | | and [place] | + + + | Organization | [facility] | | | and [place] [...] Team Providers + +------+ + | Care Grinding Room Inspector Name | Role | Phone | + +------+ + | Bry Vaughn DO | PCP | | + +------+ + Reason for Visit + + + | Reason | Comments | + + + | Hospital Follow-up | | + + + Encounter Details +--------+ + + + + | Date | Type | Department | Care Team | Description | +--------+ + + + + | 05/12/ | Telephone | [facility] | Dewey [place], | Hospital Follow-up | | 2018 | | [facility] | PharmD | | | | | [address] [place] | | | | | | [place] [address] | | | | | | [phone] | | | +--------+ + + + [...]
--- OUTSIDE RECORDS SUMMARY | 2017-07-12 16:52 | XMS | Encounter Summary ---
Demographics + + + | Address | [address] | | | [place] [address] | + + + | Home Phone | | + + + | Preferred Language | Unknown | + + + | Marital Status | | + + + | Tenriism Affiliation | 1028 | + + + | Race | Unknown | + + + | Ethnic Group | Unknown | + + + Author + + + | Author | [facility] | | | and [place] | + + + | Organization | [facility] | | | and [place] [...] Team Providers + +------+ + | Care Multi Slide Machine Tender Name | Role | Phone | + [...] | | | | | [address] | | | | | | [place] | | | | | | [address] | | | | | | [phone] | | | +--------+ + + + [...]
--- OUTSIDE RECORDS SUMMARY | 2017-07-12 16:52 | XMS | Encounter Summary ---
Demographics + + + | Address | [address] | | | [place] [address] | + + + | Home Phone | | + + + | Preferred Language | Unknown | + + + | Marital Status | | + + + | Christian Affiliation | 1028 | + + + | Race | Unknown | + + + | Ethnic Group | Unknown | + + + Author + + + | Author | [facility] | | | and [place] | + + + | Organization | [facility] | | | and [place] | [...] Team Providers + +------+ + | Care Surg Tech Name | Role | Phone | + [...] + + | 05/12/ | Telephone | [facility] | [place], | Hospital Follow-up | | 2018 | | [facility] | PharmD | | | | | [address] [place] | | | | | | [place] [address] | | | | | | [phone] | | | +--------+ + + + [...]
--- OUTSIDE RECORDS SUMMARY | 2017-07-12 16:52 | XMS | Encounter Summary ---
Demographics + + + | Address | [address] | | | [place] [address] | + + + | Home Phone | | + + + | Preferred Language | Unknown | + + + | Marital Status | | + + + | Jain Affiliation | 1028 | + + + | Race | Unknown | + + + | Ethnic Group | Unknown | + + + Author + + + | Author | [facility] | | | and [place]ren[place] | + + + | Organization | [facility] | | | and Darrenana | [...] Team Providers + +------+ + | Care Seo Engineer Name | Role | Phone | + [...] | | | | | | | ([facility]) sob | | | | | | | shift lab technician | | | | | | [...] [place] | | | | | | [address] | | | | | | [phone] | | | +--------+---------+ + + + [...] may be different fr om the original. [place], [place] HOSPITALIST DISCHARGE SUMMARY Pt. Name/Age/: Amy [...] on discharge day PROCEDURES AND CONSULTS: Procedures [facility] CORONARY ANGIOGRAPHY [place]: Right LEFT MAIN ARTERY: [...] week. Specialty: Internal Medicine Contact information: [address] [facility] [address] [place] [address] Demarcus Jurado MD In 3 weeks. Specialty: Gastroenterology Contact information: [address], [place] [address] [facility] [address] Condition: Patient being discharged with condition improved Diet: low salt low fat Greater than 30 minutes were spent on discharge and coordination of post-hospital care. Electronically signed by: Narcisa Boone MD, 05/11/2017 7:41 [facility] Portions of this chart may have been created with Orlebar Brown voice recognition software. Occasi onal wrong-word or [...] worse Dizziness or weakness Date Last Reviewed: 11/13/201519990888-9832 [employer] [place] [address], [place] [address]. All righ ts reserved. This information is not intended as a substitute for professional medical care. Always follow your healthcare professional's instructions. The following attachments cannot be sent through Care Everywhere.Kicking the Smoking Habit (Tajik)Coronary Artery Disease (CAD), Understanding (Tajik)in this encounter Medications at Time of Discharge [...] Dewey Harris, PharmD 05/11/2017 12:05 Carmelita Fulton, CLIENT SUPPORT PROFESSIONAL - 05/11/2017 1038 PSTFormatting of this note may be different f rom the original. Amy walked with me around the the nurse station [place] without any supplemental oxygen, h er SpO2 values remained > 93%, H/R 88, Respirations were 18 to 20. 05/11/17 1037 Oxygen Therapy O2 Device room air Home O2 eval performed? yes Resting on RA (%) 95 Exercising on RA (%) 97 Vitals Pulse 89 Resp 20 SpO2 98 % Carmelita Fulton, CLIENT SUPPORT PROFESSIONAL - 05/11/2017 1031 PSTDibozena walked with me around the nurses sta tion [place] without any supplemental oxygen on, her SpO2 value remained > 93%. No SOB observ ed pt denied when asked if she was SOB. H/R remained in low 80's, respirations 18 to 20. Narcisa Crouch MD - 05/10/2017 0723 PSTFormatting of this note may be different from t he original. [facility] HOSPITALIST PROGRESS NOTE Patient: mAy Coleman : 1955: Age: 61 y.o. MedRec: [id number] Admission date: 05/08/2017 Hospital day # : [...] leads V4-6 Confirmed by LUCIO SU MD ([id number]) on 05/10/2017 7:08:38 AM POC Glucose Collection [...] Procedure Component Value Units Date/Time Culture, Blood [[id number]] (Normal) Collected: 05/08/17 0145 Order Status: Completed Lab Status: Preliminary result Updated: 05/08/17 140 Specimen: Blood from Line Culture No growth: Monitored continually by instrument for 5 days Culture, Blood [[id number]] (Normal) Collected: 05/08/17 0119 Order Status: Completed Lab Status: Preliminary result Updated: 05/08/171400 Specimen: Blood from Peripheral Blood Culture No growth: Monitored continually by instrument for 5 days Culture, MRSA [[id number]] Collected: 05/08/17 0032 Order Status: Completed Lab [...] 24-48 hrs Narcisa Boone MD 05/10/2017 7:23 [facility] Portions of this chart may have been created with Orlebar Brown voice recognition software. Occasi onal wrong-word or sound-alike substitutions may have occurred due to the inherent lobo itations of voice recognition software. Please read the chart carefully and recognize, using context, where these substitutions have occurred Johnny Johnson MD - 05/09/2017 1441 PSTFormatting of this note may be different from the o riginal. PATIENT NAME: mAy Coleman : 1955: AGE: 61 y.o. ADMISSION [...] ECGs available Confirmed by LUCIO SU MD ([id number]) on 05/08/2017 8:24:47 AM LVEF-TTE TRANSTHORACIC ECHO [...] lead V2 Confirmed by LUCIO SU MD ([id number]) on 05/09/2017 7:21:00 AM MG 05/08/2017 2.3 [...] may be different fr om the original. [facility] [place] HOSPITALIST PROGRESS NOTE Patient: Amy Coleman : 1955: Age: 61 y.o. MedRec: [id number] Admission date: 05/08/2017 Hospital day # : [...] 40-60 mEq 40-60 mEq Feeding Tube PRN Orlanod bhandari MD 60 mEq at 05/08/17 08 [...] 1616 sodium chloride 0.9% (NS) infusion Intravenous Cut Out Press Operator Johnny Luther MD sodium chloride 0.9% (NS) [...] Procedure Component Value Units Date/Time Culture, Blood [[id number]] (Normal) Collected: 05/08/17 0145 Order Status: Completed Lab Status: Preliminary result Updated: 05/08/171400 Specimen: Blood from Line Culture No growth: Monitored continually by instrument for 5 days Culture, Blood [[id number]] (Normal) Collected: 05/08/17 0119 Order Status: Completed Lab Status: Preliminary result Updated: 05/08/171400 Specimen: Blood from Peripheral Blood Culture No growth: Monitored continually by instrument for 5 days Culture, MRSA [[id number]] Collected: 05/08/1731 Order Status: Sent Lab Status: [...] reports feeling malaise with shortness of breath (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 Portions of this chart may have been created with Orlebar Brown voice recognition software. 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 female who is admitted for Respiratory failure (HCC) [J96.90]. Spiritual Assessment: Patient was intubated at the time of visit. Vwbajqcl-aa-gtn, Raciel, was present and she reported that she is very close to the patient. She and the patient has discussed EOL toget her in the Derwy[place]o-qh-kwt is hoping for recovery for patient. Spiritual [...] can't relax until she knows h er ndigry-ua-pqw will be okay. Will see the patient as requested. If there are any other spiritual care issues that arise, please contact recreation officer. Narcisa Sanchez MD - 05/08/2017 0721 PSTFormatting of this note may be different fr om the original. [facility] HOSPITALIST PROGRESS NOTE Patient: Amy Coleman : 1955: Age: 61 y.o. MedRec: [id number] Admission date: 05/08/2017 Hospital day # : [...] Procedure Component Value Units Date/Time Culture, Blood [[id number]] Collected: 05/08/17 0145 Order Status: Sent Lab Status: In process Updated: 05/08/17152 Specimen: Blood from Line Culture, Blood [[id number]] Collected: 05/08/17 011 Order Status: Sent Lab Status: In process Updated: 05/08/17152 Specimen: Blood from Peripheral Blood Culture, MRSA [[id number]] Collected: 05/08/1731 Order Status: Sent Lab Status: [...] respiratory arrest, never lost pulse. Transferred from [facility]. Family member at bedside reported patient hav [...] listed conditions Narcisa Boone MD 05/08/2017 7:21 [facility] Portions of this chart may have been created with Orlebar Brown voice recognition software. Occasi onal wrong-word or [...] + + + | Blood | [facility] [address] | | | [place] [address] | + + + Basic Metabolic Panel [...] GLOMERULAR FILTRATION | >=60 mL/min/1.73m2 | | LIBERIAN | RATE,ESTIMATED mL/min/1.29y6Iqif than | | | | 60 Chronic [...] | + + + | Blood | [facility] [address] | | | [place] [address] | + + + Magnesium (05/11/2017 0455) + +-------+ + | Component | Value | Ref Range | + +-------+ + | MG | 1.9 | 1.8 - 2.5 mg/dL | + +-------+ + + + + | Specimen | Performing Laboratory | + + + | Blood | [facility] [address] | | | [place] [address] | + + + CBC with Differential [...] | + + + | Blood | [facility] [address] | | | [place] [address] | + + + POC Glucose (05/10/20172056) + +---------+ + | Component | Value | Ref Range | + +---------+ + | Glucose, POC | 130 (H) | 70 - 109 mg/dL | + +---------+ + + + + | Specimen | Performing Laboratory | + + + | Blood | [facility] [address] | | | [place] [address] | + + + POC Glucose (05/10/2017 1654) + +---------+ + | Component | Value | Ref Range | + +---------+ + | Glucose, POC | 113 (H) | 70 - 109 mg/dL | + +---------+ + + + + | Specimen | Performing Laboratory | + + + | Blood | [facility] | | | [place] [address] | + + + POC Glucose (05/10/2017 1130) + +-------+ + | Component | Value | Ref Range | + +-------+ + | Glucose, POC | 93 | 70 - 109 mg/dL | + +-------+ + + + + | Specimen | Performing Laboratory | + + + | Blood | [facility] [address] | | | [place] [address] | + + + XR Chest AP [...] | + + + | Blood | [facility] [address] | | | [place] [address] | + + + Basic Metabolic Panel [...] GLOMERULAR FILTRATION | >=60 mL/min/1.73m2 | | LIBERIAN | RATE,ESTIMATED mL/min/1.83y9Izmz than | | | | 60 Chronic [...] | + + + | Blood | [facility] [address] | | | [place] [address] | + + + Magnesium (05/10/2017 0335) + +-------+ + | Component | Value | Ref Range | + +-------+ + | MG | 2.0 | 1.8 - 2.5 mg/dL | + +-------+ + + + + | Specimen | Performing Laboratory | + + + | Blood | [facility] [address] | | | [place] [address] | + + + POC Glucose (05/09/20175) + +-------+ + | Component | Value | Ref Range | + +-------+ + | Glucose, POC | 104 | 70 - 109 mg/dL | + +-------+ + + + + | Specimen | Performing Laboratory | + + + | Blood | [facility] [address] | | | [place] [address] | + + + POC Glucose (05/09/20171643) + +-------+ + | Component | Value | Ref Range | + +-------+ + | Glucose, POC | 104 | 70 - 109 mg/dL | + +-------+ + + + + | Specimen | Performing Laboratory | + + + | Blood | [facility] [address] | | | [place] [address] | + + + CV CARDIAC PROCEDURE (05/09/2017 1402) + + | Narrative | + + | Johnny Luther MD 05/09/2017 14:39 CARDIAC CATHETERIZATION REPORT DATE | | OF PROCEDURE: 05/09/17 PRECATHETERIZATION INFORMED CONSENT : Yes | | TIMEOUT Before start of procedure done: Yes SENIOR OFFICE SUPPORT ASSISTANT SOSA: Johnny Johnson M.D., | | Brenda PRIMARY PHYSICIAN: Bry Vaughn, PROCEDURES PERFORMED: Left | | heart catheterization, selective coronary arteriography INDICATIONS | | : 61-year-old woman admitted with acute respiratory failure, elevated troponin | | ARTERIAL ACCESS: Right radial artery 6 Japanese CLOSURE DEVICE:. TR band | | DESCRIPTION [...] using a Seldinger technique and a 6 Japanese sheath was inserted. 3 mg per | | mL and 300 g of nitroglycerin were administered through the side port of the | | radial artery sheath. 4000 units of intravenous heparin was | | administered. Selective coronary arteriography was performed using a 5 Japanese | | Ole catheter. The 5 Japanese Ole catheter was advanced across the aortic [...] | lifestyle modification Johnny Johnson M.D., F.A.C.C. Water Operator | | [place], [place] | + + POC Glucose (05/09/2017 1141) + +---------+ + | Component | Value | Ref Range | + +---------+ + | Glucose, POC | 118 (H) | 70 - 109 mg/dL | + +---------+ + + + + | Specimen | Performing Laboratory | + + + | Blood | [facility] [address] | | | [place] [address] | + + + ECG 12 lead [...] GEORGES HU, | | | | LUCIO ([id number]) on 05/10/2017 7:08:38 AM | | | [...] + + + | Blood | [facility] [address] | | | [place] [address] | + + + POC Glucose (05/09/2017 0749) + +---------+ + | Component | Value | Ref Range | + +---------+ + | Glucose, POC | 112 (H) | 70 - 109 mg/dL | + +---------+ + + + + | Specimen | Performing Laboratory | + + + | Blood | [facility] [address] | | | [place] [address] | + + + PTT (05/09/2017306) + +--------+ + | Component | Value | Ref Range | + +--------+ + | PTT | 85 (H) | 22 - 36 seconds | + +--------+ + + + + | Specimen | Performing Laboratory | + + + | Blood | [facility] [address] | | | [place] [address] | + + + Protime INR (05/09/2017306) [...] | + + + | Blood | [facility] [address] | | | [place] [address] | + + + Magnesium (05/09/2017 0307) + +-------+ + | Component | Value | Ref Range | + +-------+ + | MG | 2.2 | 1.8 - 2.5 mg/dL | + +-------+ + + + + | Specimen | Performing Laboratory | + + + | Blood | [facility] [address] | | | [place] [address] | + + + Comprehensive Metabolic Panel [...] GLOMERULAR FILTRATION | >=60 mL/min/1.73m2 | | LIBERIAN | RATE,ESTIMATED mL/min/1.73d0Inem than | | | | 60 Chronic [...] | + + + | Blood | [facility] [address] | | | [place] [address] | + + + CBC with Differential [...] + + + | Blood | [facility] [address] | | | [place] [address] | + + + Troponin I (05/09/2017 [...] | | | | myocardial infarction. [employer] | | | | of [employer]iology [...] | + + + | Blood | [facility] [address] | | | [place] [address] | + + + POC Glucose (05/08/20172137) + +---------+ + | Component | Value | Ref Range | + +---------+ + | Glucose, POC | 126 (H) | 70 - 109 mg/dL | + +---------+ + + + + | Specimen | Performing Laboratory | + + + | Blood | [facility] [address] | | | [place] [address] | + + + PTT (05/08/20172042) + +--------+ + | Component | Value | Ref Range | + +--------+ + | PTT | 53 (H) | 22 - 36 seconds | + +--------+ + + + + | Specimen | Performing Laboratory | + + + | Blood | [facility] [address] | | | [place] [address] | + + + Troponin I (05/08/20175) [...] | | | | previous results. [employer] | | | | [employer]iology [...] | + + + | Blood | [facility] [address] | | | [place] [address] | + + + POC Glucose (05/08/2017 1628) + +---------+ + | Component | Value | Ref Range | + +---------+ + | Glucose, POC | 157 (H) | 70 - 109 mg/dL | + +---------+ + + + + | Specimen | Performing Laboratory | + + + | Blood | [facility] [address] | | | [place] [address] | + + + PTT (05/08/2017 1406) + +-------+ + | Component | Value | Ref Range | + +-------+ + | PTT | 30 | 22 - 36 seconds | + +-------+ + + + + | Specimen | Performing Laboratory | + + + | Blood | [facility] [address] | | | [place] [address] | + + + POC Blood Gases [...] | + + + | | [facility] [address] | | | [place] [address] | + + + ECG 12 lead [...] inverted in lead | | | | [id number] by LUCIO SU MD ([id number]) on | | | | 05/09/2017 7:21:00 [...] | + + + | Blood | [facility] [address] | | | [place] [address] | + + + PTT (05/08/2017 1250) + +--------+ + | Component | Value | Ref Range | + +--------+ + | PTT | 99 (H) | 22 - 36 seconds | + +--------+ + + + + | Specimen | Performing Laboratory | + + + | Blood | [facility] [address] | | | [place] [address] | + + + Magnesium (05/08/20171249) + +-------+ + | Component | Value | Ref Range | + +-------+ + | MG | 2.3 | 1.8 - 2.5 mg/dL | + +-------+ + + + + | Specimen | Performing Laboratory | + + + | Blood | [facility] [address] | | | [place] [address] | + + + Potassium (05/08/20171249) + +-------+ + | Component | Value | Ref Range | + +-------+ + | K | 4.1 | 3.5 - 5.1 mmol/L | + +-------+ + + + + | Specimen | Performing Laboratory | + + + | Blood | [facility] [address] | | | [place] [address] | + + + Troponin I (05/08/2017 [...] myocardial | | | | infarction. [employer] | | | | Cardiology [...] | + + + | Blood | [facility] [address] | | | [place] [address] | + + + POC Glucose (05/08/2017 1141) + +---------+ + | Component | Value | Ref Range | + +---------+ + | Glucose, POC | 116 (H) | 70 - 109 mg/dL | + +---------+ + + + + | Specimen | Performing Laboratory | + + + | Blood | [facility] [address] | | | [place] [address] | + + + Protime INR (05/08/2017 [...] + + + | Blood | [facility] [address] | | | [place] [address] | + + + PTT (05/08/2017 1041) [...] | + + + | Blood | [facility] [address] | | | [place] [address] | + + + ECHO Complete (05/08/2017 [...] Number [id number] I | | Patient Number [id number] Date of Study 05/08/2017 | | Visit Number [id number] Referring | | Physician NICOLE TSANG Number Date of 1955 | | Costume Mistress GIA ROA RDCS Age 61 | | year(s) Interpreting JOHNNY JOHNSON MD, | | | | Filler Leaf Cutter Long [facility] Gender Female | | Nurse Stress Skilled Nursing Professional | | Procedure Type of Study TTE [...] | Electronically signed by JOHNNY JOHNSON MD, [facility](Interpreting physician) on | | 05/08/2017 04:56 [...] 38.51 ml | | | | EF Hnocgpadv03% Left Ventricle Diastolic Dimension: 4.9 | | cm Systolic Dimension: 3.67 cm Septum Diastolic: 1.03 cm PW | | Diastolic: 1.13 cm EF Calculated: 44% Miscellaneous Aorta Aortic Root: | | 3.27 cm Ascending Aorta: 3.43 cm | + + + + | Procedure Note | + + | Avelino, Rad Results In - 05/08/2017 1656 [facility] Transthoracic Echocardiography Report (TTE) | | | | Demographics | | | | Patient Name JARED MONTAÑO Room Number 449 | | I | | | | Patient Number [id number] Date of Study 05/08/2017 | | | | Visit Number [id number] | | | | Referring Physician NICOLE TSANG | | Number | | | | Date of 1955 Costume Mistress GIA ROA [facility] | | | | Age 61 year(s) Interpreting JOHNNY JOHNSON MD, | | Filler Leaf Cutter Long [facility] | | | | Gender Female Nurse | | | | Stress Skilled Nursing Professional | | | | Procedure | | [...] | Electronically signed by JOHNNY JOHNSON MD, [facility](Interpreting | | physician) on 05/08/2017 04:56 [...] LA Volume: 38.51 ml | | EF Brlrrphvb44% | | | | Left Ventricle | [...] | + + + | Blood | [facility] [address] | | | [place] [address] | + + + Troponin I (05/08/2017 [...] | | | | myocardial infarction. [employer] | | | | of Cardiology [...] | + + + | Blood | [facility] [address] | | | [place] [address] | + + + Lactic Acid (05/08/2017 0648) + +-------+ + | Component | Value | Ref Range | + +-------+ + | LACTATE | 1.4 | 0.5 - 2.2 mmol/L | + +-------+ + + + + | Specimen | Performing Laboratory | + + + | Blood | [facility] [address] | | | [place] [address] | + + + CBC no Differential [...] | + + + | Blood | [facility] [address] | | | [place] [address] | + + + Basic Metabolic Panel [...] GLOMERULAR FILTRATION | >=60 mL/min/1.73m2 | | LIBERIAN | RATE,ESTIMATED mL/min/1.57y0Owpb than | | | | 60 Chronic [...] | + + + | Blood | [facility] [address] | | | [place] [address] | + + + PTT (05/08/2017314) + +-------+ + | Component | Value | Ref Range | + +-------+ + | PTT | 26 | 22 - 36 seconds | + +-------+ + + + + | Specimen | Performing Laboratory | + + + | Blood | [facility] [address] | | | [place] [address] | + + + ECG 12 lead [...] GEORGES | | | | LUCIO HU ([id number]) on 05/08/2017 8:24:47 AM | | | |No previous ECGs available | | | |Confirmed by LUCIO SU MD ([id number]) on 05/08/2017 8:24:47 AM | | | [...] + + + | Blood | [facility] [address] | | | [place] [address] | + + + Culture, Blood (05/08/2017144) + + + + | Component | Value | Ref Range | + + + + | Culture | No growth after 5 days incubation. | | + + + + + + + | Specimen | Performing Laboratory | + + + | Blood - Line | [facility] [address] | | | [place] [address] | + + + Troponin I (05/08/2017 [...] | | | | myocardial infarction. [employer] | | | | of Cardiology [...] | + + + | Blood | [facility] [address] | | | [place] [address] | + + + Magnesium (05/08/20170) + +-------+ + | Component | Value | Ref Range | + +-------+ + | MG | 1.9 | 1.8 - 2.5 mg/dL | + +-------+ + + + + | Specimen | Performing Laboratory | + + + | Blood | [facility] [address] | | | [place] [address] | + + + Culture, Blood (05/08/2017 0119) + + + + | Component | Value | Ref Range | + + + + | Culture | No growth after 5 days incubation. | | + + + + + + + | Specimen | Performing Laboratory | + + + | Blood - Peripheral | [facility] [address] | | Blood | [place] [address] | + + + POC Blood Gases [...] Laboratory | + + + | | [facility] [address] | | | [place] [address] | + + + XR Chest AP [...] + | Respiratory - Nares | [facility] [address] | | | [place] [address] | + + + LABS - EXTERNAL [...] Acute respiratory failure | + + | shift lab technician procedure needed | + + Administered [...]
--- OUTSIDE RECORDS SUMMARY | 2017-07-12 16:52 | XMS | Encounter Summary ---
Demographics + + + | Address | [address] | | | [place] [address] | + + + | Home Phone | | + + + | Preferred Language | Unknown | + + + | Marital Status | Single | + + + | Orthodox Affiliation | Unknown | + + + | Race | Unknown | + + + | Ethnic Group | Unknown | + + + Author + + + | Author | [facility] | + + + | Organization | [facility] | + + + | Address | Unknown | + + + | Phone | Unavailable | + + + Support + + +---------+ + | Name | Relationship | Address | Phone | + + +---------+ + | Joseluis Desai | ECON | Unknown | | + + +---------+ + Care Team Providers + +------+ + | Care Vocational Adviser Name | Role | Phone | + [...] | Consult | [address] | [place], [place] | | | | | | [place], | [address] Phone: | | | | | | [place] [address] | [phone] | | | | | | Phone: | Fax: | | | | | | [phone] | [phone] | | | | | | Fax: | | | | | | | [phone] | | + +--------+ + + + + Encounter Details +--------+ + + + + | Date | Type | Department | Care Team | Description | +--------+ + + + + | 04/19/ | Initial | [facility] [place] | [place], [place], | Precordial pain | | 2018 | consult | Cardiology [place] | MD Katelyn Mercedes | | | | | [address] | [address], | | | | | [address] | [place] [address] | | | | | [place] [address] | [phone] | | | | | [phone] | | | +--------+ + + + [...] may be different fro m the original. [facility] Service: Cardiology Initial Consult Note Name of Salesperson Flowers: Aaron Brito MD Reason for Consultation: Chest Pain. Requesting Physician: [facility] History Obtained From: patient CHIEF COMPLAINT: Chest Pain HISTORY OF PRESENT ILLNESS: Patient is 61 year old female who was evaluated for chest pain twice [place] like a pressure was retrosternal/epigastric. Lasted for [...] by mouth daily., Disp: , Rfl: Umeclidinium Landrum (INCRUSE ELLIPTA IN), Inhale into the lungs., [...] LDL, LDL, GLUF, HGBA1C, TSH EK07/01/2017 From [facility] showed normal ECG. Last Echo: Last stress [...]
--- OUTSIDE RECORDS SUMMARY | 2017-07-12 16:52 | XMS | Clinical Summary ---
Demographics + + + | Address | [address] | | | [place] [address] | + + + | Home Phone | | + + + | Preferred Language | Unknown | + + + | Marital Status | | + + + | Hinduism Affiliation | 1028 | + + + | Race | Unknown | + + + | Ethnic Group | Unknown | + + + Author + + + | Author | [facility] | | | and Darrenana | + + + | Organization | [facility] | | | and [...] Team Providers + +------+ + | Care Stencil Printer Name | Role | Phone | + [...] | 05/11/ | | | | type ([facility]); Acute on | | 2017 | | | | chronic respiratory | | | | | | failure with | | | | | | hypoxia and | | | | | | hypercapnia ([facility]); | | | | | | NSTEMI (non-ST | | | | | | elevated myocardial | | | | | | infarction) ([facility]); | | | | | | Non-ST elevation | | | | | | myocardial | | | | | | infarction (NSTEMI), | | | | | | type 2 ([facility]) | +--------+ + + + + +---+ [...] | | from the | | | original.CT | | | [address] | | [...] Number: | | | | | | [id number] | | | Date of | | [...] | | n [place] | | | [address] | | | [phone] | | | Demarcus E. | | | Harri, MD | | | In 3 weeks. | | | | | | Specialty: | | | | | | Gastroenter | | | ologyContac | | | t | | | information | | | :[address] | | [place], [place] | | | [address] | | | [place] | | | [phone] | | | [phone] | | | [...] | | | 7:41 | | | [place] | | | [facility] | | [...] | + + + | Blood | [facility] [address] | | | [place] [address] | + + + CBC with Differential [...] | + + + | Blood | [facility] [address] | | | [place] [address] | + + + Magnesium (05/11/2017 0455)Only the most recent of 5 results within the time period is incl uded. + +-------+ + | Component | Value | Ref Range | + +-------+ + | MG | 1.9 | 1.8 - 2.5 mg/dL | + +-------+ + + + + | Specimen | Performing Laboratory | + + + | Blood | [facility] [address] | | | [place] [address] | + + + Basic Metabolic Panel (05/11/2017 8650)Only the most recent of 3 results within [...] GLOMERULAR FILTRATION | >=60 mL/min/1.73m2 | | IRISH | RATE,ESTIMATED mL/min/1.96j3Zknl than | | | | 60 Chronic [...] + + + | Blood | [facility] [address] | | | [place] [address] | + + + XR Chest AP [...] + + + | Blood | [facility] [address] | | | [place] [address] | + + + CV CARDIAC PROCEDURE (05/09/20171401) + + | Narrative | + + | Johnny Luther MD 05/09/2017 14:39 CARDIAC CATHETERIZATION REPORT DATE | | OF PROCEDURE: 05/09/17 PRECATHETERIZATION INFORMED CONSENT : Yes | | TIMEOUT Before start of procedure done: Yes ELECTRONICS REPAIR TECHNICIAN: Johnny Johnson M.D., | | Brenda PRIMARY PHYSICIAN: Bry Vaughn DO PROCEDURES PERFORMED: Left | | heart catheterization, selective coronary arteriography INDICATIONS | | : 61-year-old woman admitted with acute respiratory failure, elevated troponin | | ARTERIAL ACCESS: Right radial artery 6 [place]ian CLOSURE DEVICE:. TR band | | DESCRIPTION [...] using a Seldinger technique and a 6 [place]ibian sheath was inserted. 3 mg per | | mL and 300 g of nitroglycerin were administered through the side port of the | | radial artery sheath. 4000 units of intravenous heparin was | | administered. Selective coronary arteriography was performed using a 5 [place]ian | | Ole catheter. The 5 [place]ian Ole catheter was advanced across the aortic [...] | lifestyle modification Johnny Johnson M.D., F.A.C.C. Beverage Manager | | [place], [place] | + + ECG 12 lead [...] GEORGES HU, | | | | LUCIO ([id number]) on 05/10/2017 7:08:38 AM | | | [...] | + + + | Blood | [facility] [address] | | | [place] [address] | + + + Protime INR (05/09/2017 [...] | + + + | Blood | [facility] [address] | | | [place] [address] | + + + Comprehensive Metabolic Panel [...] GLOMERULAR FILTRATION | >=60 mL/min/1.73m2 | | IRISH | RATE,ESTIMATED mL/min/1.99a1Dnwe than | | | | 60 Chronic [...] + + + | Blood | [facility] [address] | | | [place] [address] | + + + Troponin I (05/09/2017 [...] | | | | myocardial infarction. [employer] | | | | of Cardiology [...] | + + + | Blood | [facility] [address] | | | [place] [address] | + + + POC Blood Gases [...] | + + + | | [facility] [address] | | | [place] [address] | + + + Hemoglobin and Hematocrit [...] + + + | Blood | [facility] [address] | | | [place] [address] | + + + Potassium (05/08/20171249) + +-------+ + | Component | Value | Ref Range | + +-------+ + | K | 4.1 | 3.5 - 5.1 mmol/L | + +-------+ + + + + | Specimen | Performing Laboratory | + + + | Blood | [facility] [address] | | | [place] [address] | + + + ECHO Complete (05/08/2017 [...] Number 449 I | | Patient Number [id number] Date of Study 05/08/2017 | | Visit Number [id number] Referring | | Physician NICOLE TSANG Number Date of 1955 | | Chemical Machine Tender GIA ROA [facility] Age 61 | | year(s) Interpreting JOHNNY JOHNSON MD, | | | | Named Account Executive FAC Gender Female | | Nurse Stress Beam Builder Helper | | Procedure Type of Study TTE [...] | Electronically signed by JOHNNY JOHNSON MD, [facility](Interpreting physician) on | | 05/08/2017 04:56 [...] 38.51 ml | | | | EF [id number]% Left Ventricle Diastolic Dimension: 4.9 | | cm Systolic Dimension: 3.67 cm Septum Diastolic: 1.03 cm PW | | Diastolic: 1.13 cm EF Calculated: 44% Miscellaneous Aorta Aortic Root: | | 3.27 cm Ascending Aorta: 3.43 cm | + + + + | Procedure Note | + + | Avelino, Rad Results In - 05/08/2017 1656 [facility] Transthoracic Echocardiography Report (TTE) | | | | Demographics | | | | Patient Name JARED MONTAÑO Room Number 449 | | I | | | | Patient Number [id number] Date of Study 05/08/2017 | | | | Visit Number [id number] | | | | Referring Physician NICOLE TSANG | | Number | | | | Date of 1955 Chemical Machine Tender GIA ROA RDCS | | | | Age 61 year(s) Interpreting JOHNNY JOHNSON MD, | | Named Account Executive FAC | | | | Gender Female Nurse | | | | Stress Beam Builder Helper | | | | Procedure | | [...] | Electronically signed by JOHNNY JOHNSON MD, [facility](Interpreting | | physician) on 05/08/2017 04:56 [...] LA Volume: 38.51 ml | | EF Labnmaeqn01% | | | | Left Ventricle | [...] | + + + | Blood | [facility] [address] | | | [place] [address] | + + + Culture, Blood (05/08/2017144)Only [...] + + | Blood - Line | [facility] [address] | | | [place] [address] | + + + Culture, MRSA (05/08/20172) [...] + | Respiratory - Nares | [facility] [address] | | | [place] [address] | + + + IMAGING REPORT - [...] | MODA | [phone] | Medica | [phone] | | | MEDICAID HMO | HEALTH [...] Self | [birth year] | Home: | [address] | | | al/Fam | | 1955 | [phone] | [place] [address] | | | julito | | | [phone] | | + +--------+ +--------+ + +
--- OUTSIDE RECORDS SUMMARY | 2017-07-12 16:52 | XMS | Encounter Summary ---
Demographics + + + | Address | [address] | | | [place] [address] | + + + | Home Phone | | + + + | Preferred Language | Unknown | + + + | Marital Status | | + + + | Christian Affiliation | 1028 | + + + | Race | Unknown | + + + | Ethnic Group | Unknown | + + + Author + + + | Author | [facility] | | | and [place] | + + + | Organization | [facility] | | | and [place] | + + + | Address | Unknown | + + + | Phone | Unavailable | + + + Support + + +---------+ + | Name | Relationship | Address | Phone | + + +---------+ + | Mila Desai | ECON | Unknown | | + + +---------+ + | Joseluis Desia | ECON | Unknown | | + + +---------+ + Care Team Providers + +------+ + | Care Compliance Program Manager Name | Role | Phone | + [...] | | | | COPD type | [address] | | | | | | ([facility]) Acute | Phone: | | | | | | on chronic | [phone] | | | | | | respiratory | Fax: | | | | | | failure with | [phone] | | | | | | hypoxia and | | | | | | | hypercapnia | | | | | | | ([facility]) | | | +--------+ + + + [...] | | | | | | | ([facility]) sob | | | | | | | slab off mill tender | | | | | | | [...] + + | 05/08/ | Hospital | [facility] | Orlando Wall MD | Chronic obstructive | | 2018 - | Encounter | MED CTR ICU [address] | pulmonary disease, | | | | [place], | [place], [place] | unspecified COPD | | 05/11/ | | [place] [address] | [id number] | type (HCC); Acute on | | 2018 | | [phone] | | chronic respiratory | | | | | Marcio Boone, | failure with | | | | | MD Narcisa [address] | hypoxia and | | | | | [address] [place] | hypercapnia (HCC); | | | | | [place] [address] | NSTEMI (non-ST | | | | | [phone] | elevated myocardial | | | | | | infarction) ([facility]); | | | | | | Non-ST elevation | | | | | | myocardial | | | | | | infarction (NSTEMI), | | | | | | type 2 ([facility]) | +--------+ + + + + Social [...] may be different fr om the original. [facility] DISCHARGE SUMMARY Pt. [...] on discharge day PROCEDURES AND CONSULTS: Procedures [facility] CORONARY ANGIOGRAPHY DOMINANCE: Right LEFT MAIN [...] [address], [address] [place] [id number] Condition: Patient being discharged with condition improved Diet: low salt low fat Greater than 30 minutes were spent on discharge and coordination of post-hospital care. Electronically signed by: Narcisa Boone MD, 05/11/2017 7:41 [facility] Portions of this chart may have been created with [employer] (PICA) voice recognition software. Occasi onal wrong-word or [...] worse Dizziness or weakness Date Last Reviewed: 11/13/201519992318-7326 [employer] [place] [address], [place] [address]. All righ ts reserved. This information is not intended as a substitute for professional medical care. Always follow your healthcare professional's instructions. The following attachments cannot be sent through Care Everywhere.Kicking the Smoking Habit (Azeri)Coronary Artery Disease (CAD), Understanding (Azeri)in this encounter Medications at Time of Discharge [...] PSTDarlinbozena Coleman was admitted for COPD exacerb [facility] [place] and discharged home today (05/11/2017) Taught AVS [...] Dewey Harris, Charley 05/11/2017 12:05 Carmelita Fulton, PROGRAMS ASSISTANT - 05/11/2017 1038 PSTFormatting of this note may be different f rom the original. Amy walked with me around the the nurse station [place] without any supplemental oxygen, h er SpO2 values remained > 93%, H/R 88, Respirations were 18 to 20. 05/11/17 1037 Oxygen Therapy O2 Device room air Home O2 eval performed? yes Resting on RA (%) 95 Exercising on RA (%) 97 Vitals Pulse 89 Resp 20 SpO2 98 % Carmelita Fulton, PROGRAMS ASSISTANT - 05/11/2017 1031 PSTAmy walked with me around the nurses sta tion [place] without any supplemental oxygen on, her SpO2 value remained > 93%. No SOB observ ed pt denied when asked if she was SOB. H/R remained in low 80's, respirations 18 to 20. Narcisa Crouch MD - 05/10/2017 0723 PSTFormatting of this note may be different from t he original. [facility] H[facility] PROGRESS NOTE Patient: Amy Coleman : 1955: Age: 61 y.o. MedRec: [id number] Admission date: 05/08/2017 Hospital day # : [...] leads V4-6 Confirmed by GEORGES HU, LUCIO ([id number]) on 05/10/2017 7:08:38 AM POC Glucose Collection [...] Procedure Component Value Units Date/Time Culture, Blood [[id number]] (Normal) Collected: 05/08/17 0145 Order Status: Completed Lab Status: Preliminary result Updated: 05/08/17 140 Specimen: Blood from Line Culture No growth: Monitored continually by instrument for 5 days Culture, Blood [[id number]] (Normal) Collected: 05/08/17 0119 Order Status: Completed Lab Status: Preliminary result Updated: 05/08/17 140 Specimen: Blood from Peripheral Blood Culture No growth: Monitored continually by instrument for 5 days Culture, MRSA [[id number]] Collected: 05/08/17 0032 Order Status: Completed Lab [...] 24-48 hrs Narcisa Boone MD 05/10/2017 7:23 [facility] Portions of this chart may have been created with [employer] ([employer]) voice recognition software. Occasi onal wrong-word or [...] ECGs available Confirmed by GEORGES HU, LUCIO ([id number]) on 05/08/2017 8:24:47 AM LVEF-TTE TRANSTHORACIC ECHO [...] lead V2 Confirmed by LUCIO SU MD ([id number]) on 05/09/2017 7:21:00 AM MG 05/08/2017 2.3 [...] may be different fr om the original. [place] HOSPITALIST PROGRESS NOTE Patient: Amy Coleman : 1955: Age: 61 y.o. MedRec: [id number] Admission date: 05/08/2017 Hospital day # : [...] tablet 40-60 mEq 40-60 mEq Oral PRN Orladno Wall MD And potassium chloride 20 mEq/15 [...] 1616 sodium chloride 0.9% (NS) infusion Intravenous Dry Talc Racker Johnny Luther MD sodium chloride 0.9% (NS) [...] Procedure Component Value Units Date/Time Culture, Blood [[id number]] (Normal) Collected: 05/08/17 0145 Order Status: Completed Lab Status: Preliminary result Updated: 05/08/171400 Specimen: Blood from Line Culture No growth: Monitored continually by instrument for 5 days Culture, Blood [[id number]] (Normal) Collected: 05/08/17 0119 Order Status: Completed Lab Status: Preliminary result Updated: 05/08/171400 Specimen: Blood from Peripheral Blood Culture No growth: Monitored continually by instrument for 5 days Culture, MRSA [[id number]] Collected: 05/08/1731 Order Status: Sent Lab Status: [...] reports feeling malaise with shortness of 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 female who is admitted for Respiratory failure ([facility]) [J96.90]. Spiritual Assessment: Patient was intubated at the time of visit. Robwxgnt-yk-bqz, Raciel, was present and she reported that she is very close to the patient. She and the patient has discussed EOL toget her in the Taxrfcds-dv-iia is hoping for recovery for patient. Spiritual [...] can't relax until she knows h er qbhkfp-tt-gvv will be okay. Will see the patient as requested. If there are any other spiritual care issues that arise, please contact cost estimating clerk. Narcisa Sanchez MD - 05/08/2017 0721 PSTFormatting of this note may be different fr om the original. [place] HOSPITALIST PROGRESS NOTE Patient: Amy Coleman : 1955: Age: 61 y.o. MedRec: [id number] Admission date: 05/08/2017 Hospital day # : [...] Procedure Component Value Units Date/Time Culture, Blood [[id number]] Collected: 05/08/17 0145 Order Status: Sent Lab Status: In process Updated: 05/08/17152 Specimen: Blood from Line Culture, Blood [[id number]] Collected: 05/08/17118 Order Status: Sent Lab Status: In process Updated: 05/08/17152 Specimen: Blood from Peripheral Blood Culture, MRSA [[id number]] Collected: 05/08/1731 Order Status: Sent Lab Status: [...] respiratory arrest, never lost pulse. Transferred from [facility]. Family member at bedside reported patient hav [...] listed conditions Narcisa Boone MD 05/08/2017 7:21 [facility] Portions of this chart may have been created with [employer] ([employer]ICA) voice recognition software. Occasi onal wrong-word or [...] | + + + | Blood | [facility] [address] | | | [place] [address] | + + + Basic Metabolic Panel [...] GLOMERULAR FILTRATION | >=60 mL/min/1.73m2 | | DOMINICAN | RATE,ESTIMATED mL/min/1.86r9Gcso than | | | | 60 Chronic [...] + + + | Blood | [facility] [address] | | | [place] [address] | + + + Magnesium (05/11/2017454) + +-------+ + | Component | Value | Ref Range | + +-------+ + | MG | 1.9 | 1.8 - 2.5 mg/dL | + +-------+ + + + + | Specimen | Performing Laboratory | + + + | Blood | [facility] [address] | | | [place] [address] | + + + CBC with Differential [...] | + + + | Blood | [facility] [address] | | | [place] [address] | + + + POC Glucose (05/10/20172056) + +---------+ + | Component | Value | Ref Range | + +---------+ + | Glucose, POC | 130 (H) | 70 - 109 mg/dL | + +---------+ + + + + | Specimen | Performing Laboratory | + + + | Blood | [facility] [address] | | | [place] [address] | + + + POC Glucose (05/10/2017 1654) + +---------+ + | Component | Value | Ref Range | + +---------+ + | Glucose, POC | 113 (H) | 70 - 109 mg/dL | + +---------+ + + + + | Specimen | Performing Laboratory | + + + | Blood | [facility] [address] | | | [place] [address] | + + + POC Glucose (05/10/2017 1130) + +-------+ + | Component | Value | Ref Range | + +-------+ + | Glucose, POC | 93 | 70 - 109 mg/dL | + +-------+ + + + + | Specimen | Performing Laboratory | + + + | Blood | [facility] [address] | | | [place] [address] | + + + XR Chest AP [...] + + + | Blood | [facility] [address] | | | [place] [address] | + + + Basic Metabolic Panel [...] GLOMERULAR FILTRATION | >=60 mL/min/1.73m2 | | DOMINICAN | RATE,ESTIMATED mL/min/1.60b1Qoug than | | | | 60 Chronic [...] | + + + | Blood | [facility] [address] | | | [place] [address] | + + + Magnesium (05/10/2017 0335) + +-------+ + | Component | Value | Ref Range | + +-------+ + | MG | 2.0 | 1.8 - 2.5 mg/dL | + +-------+ + + + + | Specimen | Performing Laboratory | + + + | Blood | [facility] [address] | | | [place] [address] | + + + POC Glucose (05/09/20172104) + +-------+ + | Component | Value | Ref Range | + +-------+ + | Glucose, POC | 104 | 70 - 109 mg/dL | + +-------+ + + + + | Specimen | Performing Laboratory | + + + | Blood | [facility] [address] | | | [place] [address] | + + + POC Glucose (05/09/2017 1644) + +-------+ + | Component | Value | Ref Range | + +-------+ + | Glucose, POC | 104 | 70 - 109 mg/dL | + +-------+ + + + + | Specimen | Performing Laboratory | + + + | Blood | [facility] [address] | | | [place] [address] | + + + CV CARDIAC PROCEDURE (05/09/2017 1402) + + | Narrative | + + | Johnny Luther MD 05/09/2017 14:39 CARDIAC CATHETERIZATION REPORT DATE | | OF PROCEDURE: 05/09/17 PRECATHETERIZATION INFORMED CONSENT : Yes | | TIMEOUT Before start of procedure done: Yes DOCUMENTATION CLERK: Johnny Johnson M.D., | | Brenda PRIMARY PHYSICIAN: Bry Vaughn, PROCEDURES PERFORMED: Left | | heart catheterization, selective coronary arteriography INDICATIONS | | : 61-year-old woman admitted with acute respiratory failure, elevated troponin | | ARTERIAL ACCESS: Right radial artery 6 Canadian CLOSURE DEVICE:. TR band | | DESCRIPTION [...] using a Seldinger technique and a 6 Canadian sheath was inserted. 3 mg per | | mL and 300 g of nitroglycerin were administered through the side port of the | | radial artery sheath. 4000 units of intravenous heparin was | | administered. Selective coronary arteriography was performed using a 5 Canadian | | Ole catheter. The 5 Canadian Ole catheter was advanced across the aortic [...] | lifestyle modification Johnny Johnson M.D., F.A.C.C. Manager Wound | | [place], [place] | + + POC Glucose (05/09/2017 1141) + +---------+ + | Component | Value | Ref Range | + +---------+ + | Glucose, POC | 118 (H) | 70 - 109 mg/dL | + +---------+ + + + + | Specimen | Performing Laboratory | + + + | Blood | [facility] [address] | | | [place] [address] | + + + ECG 12 lead [...] GEORGES HU, | | | | LUCIO ([id number]) on 05/10/2017 7:08:38 AM | | | [...] | + + + | Blood | [facility] [address] | | | [place] [address] | + + + POC Glucose (05/09/2017 0749) + +---------+ + | Component | Value | Ref Range | + +---------+ + | Glucose, POC | 112 (H) | 70 - 109 mg/dL | + +---------+ + + + + | Specimen | Performing Laboratory | + + + | Blood | [facility] [address] | | | [place] [address] | + + + PTT (05/09/2017 0307) + +--------+ + | Component | Value | Ref Range | + +--------+ + | PTT | 85 (H) | 22 - 36 seconds | + +--------+ + + + + | Specimen | Performing Laboratory | + + + | Blood | [facility] [address] | | | [place] [address] | + + + Protime INR (05/09/2017306) [...] | + + + | Blood | [facility] [address] | | | [place] [address] | + + + Magnesium (05/09/2017 0307) + +-------+ + | Component | Value | Ref Range | + +-------+ + | MG | 2.2 | 1.8 - 2.5 mg/dL | + +-------+ + + + + | Specimen | Performing Laboratory | + + + | Blood | [facility] [address] | | | [place] [address] | + + + Comprehensive Metabolic Panel [...] GLOMERULAR FILTRATION | >=60 mL/min/1.73m2 | | DOMINICAN | RATE,ESTIMATED mL/min/1.28j7Alll than | | | | 60 Chronic [...] + + + | Blood | [facility] [address] | | | [place] [address] | + + + CBC with Differential [...] | + + + | Blood | [facility] [address] | | | [place] [address] | + + + Troponin I (05/09/2017 [...] | | | | myocardial infarction. [employer] | | | | of Cardiology [...] | + + + | Blood | [facility] [address] | | | [place] [address] | + + + POC Glucose (05/08/20172137) + +---------+ + | Component | Value | Ref Range | + +---------+ + | Glucose, POC | 126 (H) | 70 - 109 mg/dL | + +---------+ + + + + | Specimen | Performing Laboratory | + + + | Blood | [facility] [address] | | | [place] [address] | + + + PTT (05/08/20172042) + +--------+ + | Component | Value | Ref Range | + +--------+ + | PTT | 53 (H) | 22 - 36 seconds | + +--------+ + + + + | Specimen | Performing Laboratory | + + + | Blood | [facility] [address] | | | [place] [address] | + + + Troponin I (05/08/20171854) [...] | | | | previous results. [employer] | | | | Cardiology [...] | + + + | Blood | [facility] [address] | | | [place] [address] | + + + POC Glucose (05/08/2017 1628) + +---------+ + | Component | Value | Ref Range | + +---------+ + | Glucose, POC | 157 (H) | 70 - 109 mg/dL | + +---------+ + + + + | Specimen | Performing Laboratory | + + + | Blood | [facility] [address] | | | [place] [address] | + + + PTT (05/08/2017 1406) + +-------+ + | Component | Value | Ref Range | + +-------+ + | PTT | 30 | 22 - 36 seconds | + +-------+ + + + + | Specimen | Performing Laboratory | + + + | Blood | [facility] [address] | | | [place] [address] | + + + POC Blood Gases [...] | + + + | | [facility] [address] | | | [place] [address] | + + + ECG 12 lead [...] inverted in lead | | | | [id number] by LUCIO SU MD ([id number]) on | | | | 05/09/2017 7:21:00 [...] | + + + | Blood | [facility] [address] | | | [place] [address] | + + + PTT (05/08/2017 1250) + +--------+ + | Component | Value | Ref Range | + +--------+ + | PTT | 99 (H) | 22 - 36 seconds | + +--------+ + + + + | Specimen | Performing Laboratory | + + + | Blood | [facility] [address] | | | [place] [address] | + + + Magnesium (05/08/2017 1250) + +-------+ + | Component | Value | Ref Range | + +-------+ + | MG | 2.3 | 1.8 - 2.5 mg/dL | + +-------+ + + + + | Specimen | Performing Laboratory | + + + | Blood | [facility] [address] | | | [place] [address] | + + + Potassium (05/08/20171249) + +-------+ + | Component | Value | Ref Range | + +-------+ + | K | 4.1 | 3.5 - 5.1 mmol/L | + +-------+ + + + + | Specimen | Performing Laboratory | + + + | Blood | [facility] [address] | | | [place] [address] | + + + Troponin I (05/08/2017 [...] myocardial | | | | infarction. [employer] | | | | Cardiology [...] | + + + | Blood | [facility] [address] | | | [place] [address] | + + + POC Glucose (05/08/2017 1141) + +---------+ + | Component | Value | Ref Range | + +---------+ + | Glucose, POC | 116 (H) | 70 - 109 mg/dL | + +---------+ + + + + | Specimen | Performing Laboratory | + + + | Blood | [facility] [address] | | | [place] [address] | + + + Protime INR (05/08/2017 [...] | + + + | Blood | [facility] [address] | | | [place] [address] | + + + PTT (05/08/2017 1041) [...] + + + | Blood | [facility] [address] | | | [place] [address] | + + + ECHO Complete (05/08/2017 [...] Number 449 I | | Patient Number [id number] Date of Study 05/08/2017 | | Visit Number [id number] Referring | | Physician NICOLE TSANG Number Date of 1955 | | Criminal Investigator [employer] [facility] Age 61 | | year(s) Interpreting JOHNNY JOHNSON MD, | | | | Stroke Program Coordinator FAC Gender Female | | Nurse Stress Rake Operator | | Procedure Type of Study TTE [...] | Electronically signed by JOHNNY JOHNSON MD, [facility](Interpreting physician) on | | 05/08/2017 04:56 PM [...] 38.51 ml | | | | EF Guiunlgrp45% Left Ventricle Diastolic Dimension: 4.9 | | [...] I | | | | Patient Number [id number] Date of Study 05/08/2017 | | | | Visit Number [id number] | | | | Referring Physician NICOLE TSANG | | Number | | | | Date of 1955 Criminal Investigator [employer] [facility] | | | | Age 61 year(s) Interpreting JOHNNY JOHNSON MD, | | Stroke Program Coordinator FAC | | | | Gender Female Nurse | | | | Stress Rake Operator | | | | Procedure | | [...] | Electronically signed by JOHNNY JOHNSON MD, [facility](Interpreting | | physician) on 05/08/2017 04:56 PM [...] LA Volume: 38.51 ml | | EF Hrbqyutut25% | | | | Left Ventricle | [...] | + + + | Blood | [facility] [address] | | | [place] [address] | + + + Troponin I (05/08/2017 [...] | | | | myocardial infarction. [employer] | | | | of Cardiology [...] | + + + | Blood | [facility] [address] | | | [place] [address] | + + + Lactic Acid (05/08/2017647) + +-------+ + | Component | Value | Ref Range | + +-------+ + | LACTATE | 1.4 | 0.5 - 2.2 mmol/L | + +-------+ + + + + | Specimen | Performing Laboratory | + + + | Blood | [facility] [address] | | | [place] [address] | + + + CBC no Differential [...] + + + | Blood | [facility] [address] | | | [place] [address] | + + + Basic Metabolic Panel [...] GLOMERULAR FILTRATION | >=60 mL/min/1.73m2 | | DOMINICAN | RATE,ESTIMATED mL/min/1.10s3Agoq than | | | | 60 Chronic [...] | + + + | Blood | [facility] [address] | | | [place] [address] | + + + PTT (05/08/2017314) + +-------+ + | Component | Value | Ref Range | + +-------+ + | PTT | 26 | 22 - 36 seconds | + +-------+ + + + + | Specimen | Performing Laboratory | + + + | Blood | [facility] [address] | | | [place] [address] | + + + ECG 12 lead [...] GEORGES | | | | LUCIO HU ([id number]) on 05/08/2017 8:24:47 AM | | | |No previous ECGs available | | | |Confirmed by LUCIO SU MD ([id number]) on 05/08/2017 8:24:47 AM | | | [...] + + + | Blood | [facility] [address] | | | [place] [address] | + + + Culture, Blood (05/08/2017 0145) + + + + | Component | Value | Ref Range | + + + + | Culture | No growth after 5 days incubation. | | + + + + + + + | Specimen | Performing Laboratory | + + + | Blood - Line | [facility] [address] | | | [place] [address] | + + + Troponin I (05/08/2017 [...] | | | | myocardial infarction. [employer] | | | | of Cardiology [...] | + + + | Blood | [facility] [address] | | | [place] [address] | + + + Magnesium (05/08/2017129) + +-------+ + | Component | Value | Ref Range | + +-------+ + | MG | 1.9 | 1.8 - 2.5 mg/dL | + +-------+ + + + + | Specimen | Performing Laboratory | + + + | Blood | [facility] [address] | | | [place] [address] | + + + Culture, Blood (05/08/20179) + + + + | Component | Value | Ref Range | + + + + | Culture | No growth after 5 days incubation. | | + + + + + + + | Specimen | Performing Laboratory | + + + | Blood - Peripheral | [facility] [address] | | Blood | [place] [address] | + + + POC Blood Gases [...] | + + + | | [facility] [address] | | | [place] [address] | + + + XR Chest AP [...] + | Respiratory - Snehal | [facility] [address] | | | [place] [address] | + + + LABS - EXTERNAL [...] + | NSTEMI (non-ST elevated myocardial infarction) ([facility]) | + + | Acute myocardial infarction, [...] Acute respiratory failure | + + | slab off mill tender procedure needed | + + Administered Medications [...] | | | 0028, For 1 dose, JSOE, | | | JANAE: she override | [...] | | | | | from order #[[id number]] | | | | | | + [...]
[2017-07-12] MEDS ORDERED: PREDNISONE10 MG PO (18:34)
== END 2017-07-12 18:53 | disposition home or self-care (01) ==
LOC: ED 16:08
DX: J44.1 Chronic obstructive pulmonary disease with (acute) exacerbation (principal); Z87.891 Personal history of nicotine dependence; Z88.0 Allergy status to penicillin; Z88.1 Allergy status to other antibiotic agents; Z88.8 Allergy status to other drugs, medicaments and biological substances; Z79.899 Other long term (current) drug therapy
CPT/HCPCS: 36600; 71045; 80053; 82803; 85025; 94640; 96374; 99284; J2930

== ENCOUNTER 2017-08-03 19:31 | Emergency (ER) | payer OTHER ==
[~2017-08-03] VITALS: Ht 165.1 cm; Wt 60.3 kg
[~2017-08-03 19:31] MED LIST changes: +PREDNISONE10 MG PO
--- NOTE | 2017-08-04 21:11 | EKG ---
[facility] [address] [facility] [facility] [place], [place] [address] Signed Normal sinus rhythm with sinus arrhythmia Normal ECG When compared with ECG of 07-JAN-2017 18:09, No significant change was found Confirmed by AKIRA BLACKWELL MD ([id number]) on 08/04/2017 9:11:10 PM Electronically Signed By: AKIRA BLACKWELL MD 08/04/172110 PATIENT NAME: MAGAN NARANJOCASTRO CHAVARRIA Electrocardiogram DATE OF : 51 PHYSICIAN: AKIRA BLACKWELL MD REPORT #: [id number] REPORT IS CONFIDENTIAL AND NOT TO BE RELEASED WITHOUT AUTHORIZATION
== END 2017-08-03 21:31 | disposition home or self-care (01) ==
LOC: ED 19:31
DX: R10.13 Epigastric pain (principal); J44.9 Chronic obstructive pulmonary disease, unspecified; Z88.0 Allergy status to penicillin; Z88.1 Allergy status to other antibiotic agents; Z88.8 Allergy status to other drugs, medicaments and biological substances; Z79.899 Other long term (current) drug therapy; Z79.52 Long term (current) use of systemic steroids; Z79.82 Long term (current) use of aspirin
CPT/HCPCS: 71045; 80053; 81001; 83690; 84484; 85025; 93005; 93010; 99284

== ENCOUNTER 2017-08-16 22:49 | Inpatient (IN) | payer OTHER ==
[~2017-08-16] VITALS: Ht 165.1 cm; Wt 60.2 kg
--- NOTE | 2017-08-17 01:55 | NUR ---
PT DROVE HERSELF TO HOSPITAL, WHEN I GOT TO ED THE NURSE ASKED ME TO CONTACT NEXT OF KIN. I CALLED THE ONLY NUMBER AVAILABLE, DID NOT GET AN ANSWER SO LEFT A MESSAGE. A FEW MINUTES LATER HER SON, MARGARITA, ARRIVED WITH HIS . I PRAYED WITH THEM AND STAYED WITH THEM TILL PT MOVED TO FLOOR. AFTER PT IN ROOM AND STABLE I WALKED THEM OUT TO PARKING LOT.
--- NOTE | 2017-08-17 02:30 | NUR ---
RECEIVED PT FROM ED PER STRETCHER AT 0125. RESP THERAPY WITH PT, DR VERAS IN DEPT. PT HAS PROPOFOL INFUSING AT 10MCG/KG/MIN, PT AGITATED AFTER BEING MOVED GTT INCREASED TO 20MCG/KG/MIN FOR ABOUT 5 MIN THEN BACK TO 10MCG. PT WAS GIVEN 2MG VERSED IV FOR AGITATION AT 0130. PT CALMER, RESTRAINTS IN PLACE. FAMILY IN TO SEE PT BRIEFLY BEFORE GOING HOME.
--- NOTE | 2017-08-17 03:00 | NUR ---
KETAMINE INFUSTION STARTED FOR SEDATION AT 0.5MCG/KG/MIN. WILL TITRATE PROPOFOL DOWN ABLE.
--- NOTE | 2017-08-17 04:28 | NUR ---
HAVE TITRATED KETAMINE UP TO 0.2MCG/KG/MIN. PT WAS AGITATED AT 0345 AND PROPOFOL WAS INC TO 15MCG/KG/MIN BUT BACK TO 10 BP DECREASED. WHEN PT IS AGITATED HAS INCREASED ORAL SECRETIONS AND REQUIRES FREQ SUCTIONING. ALSO HITTING BED TO GET STAFFS ATTENTION. AFFIRMS THROAT HURTS BUT DENIES PAIN ELSEWHERE.
--- NOTE | 2017-08-17 06:02 | NUR ---
KETAMINE TITRATED TO 0.4MCG/KG/MIN PT HAS C/O THROAT AND NECK HURTING. IS VERY AWAKE, ALSO C/O BEING SCARED. HAVE USED MASSAGE AND REPOSITIONING TO HELP WITH NECK PAIN. PROPOFOL AT 5MCG/KG/MIN DUE TO BP. PT GIVEN 1 MG VERSED FOR ANXIETY AND HAVE HELD PT'S HAND. PT ABLE TO SPELL WORDS INTO STAFFS HAND. HAVE ENCOURAGED PT TO REST.
--- NOTE | 2017-08-17 06:20 | NUR ---
DR VERAS CALLED RE URINE OUTPUT AND 500ML BOLUS STARTED.
--- NOTE | 2017-08-17 07:04 | NUR ---
1 MG IV VERSED GIVEN FOR RASS SCORE OF +2.
--- NOTE | 2017-08-17 07:37 | NUR ---
PATIENT RESTING IN BED, EYES CLOSED. RN IN ROOM. NO OTHER NEEDS AT THIS TIME.
--- NOTE | 2017-08-17 07:45 | NUR ---
RT IN ROOM AT THIS TIME WORKING WITH PATIENT AND VENTILATOR. PATIENT RESTING AT THIS TIME ON VENTILATOR WITH VENT SETTINGS OF SIMV 16, VT 400, FI02 21%, PEEP 10. PATIENT IS GRIMACING SOME AND SHOWING FURROWING OF HER BROW. RESTRAINTS ARE IN PLACE BILATERALLY ON WRISTS FOR SAFETY WHILE PATIENT ON VENTILATOR. CURRENT ETC02 IS 22. LAST BP 104/70 (77), HR 114, SP02 98%. PT RECEIVING IVF AT 125 ML/HR. VOSS DRAINING CLEAR YELLOW URINE AT THIS TIME.
--- NOTE | 2017-08-17 08:02 | NUR ---
PATIENT VERY EXPRESSIVE WITH HER FINGERS AND WRITING WORDS TO US SUCH , "SCARED", "CRY", "THANK YOU", AND "AMAZING." PATIENT IS CURRENTLY AT A RASS OF +1 BUT CAN BE CALMED DOWN WITH CALMING TALK. PROPOFOL TURNED UP TO 10 MCG/KG/MIN AT THIS TIME DUE TO PATIENT BEING AWAKE - RASS GOAL IS -1. PT MADE 75 ML OF YELLOW URINE THIS LAST HOUR. END TIDAL IS REMAINING IN THE LOW 20s, 21-22 MOSTLY. PT IS NOTED TO BE OVERBREATHING THE VENTILATOR, CURRENTLY WITH RATES OF 25-26. PT ENCOURAGED TO REST AND SLEEP MUCH SHE CAN.
--- NOTE | 2017-08-17 08:45 | NUR ---
1 MG VERSED GIVEN FOR +1 RASS SCORE. BP 109/75, MAP 81, HR 111. PT NOW RESTING AND APPEARS MORE COMFORTABLY WITH A RASS SCORE OF -1.
[2017-08-17] MEDS ORDERED: LISINOPRIL10 MG PO (08:54)
[2017-08-17] MEDS ORDERED: PANTOPRAZOLE SO40 MG PO (08:55)
--- NOTE | 2017-08-17 08:56 | NUR ---
DR. VERAS AT BEDSIDE ASSESSING PT AND UPDATING PLAN OF CARE.
[2017-08-17] MEDS ORDERED: ALBUTEROL2.5 MG/3 M INH (08:57)
--- NOTE | 2017-08-17 09:25 | NUR ---
PATIENT RESTING IN BED, RN IN ROOM. NO OTHER NEEDS AT THIS TIME.
--- NOTE | 2017-08-17 10:00 | NUR ---
CURRENT RASS SCORE +1, PROPOFOL GTT DC'D, MIDAZOLAM RUNNING AT 1 ML/HR. BP 128/83, MAP 95, HR 116. R/R 29/16, SPO2 100%, PIP 17, ETCO2 27, VT 400, PEEP 10. URINE OUTPUT FOR THE HOUR 47 MLS. KETAMINE CONTINUES AT 0.4 MG/KG/HR, D5LR AT 125 ML/HR, MAGNESIUM ADDED AND RUNNING AT 50 ML/HR.
--- NOTE | 2017-08-17 10:20 | NUR ---
MIDAZOLAM RATE INCREASED TO 2 MG/HR DUE TO INCREASED AGGITATION
--- NOTE | 2017-08-17 10:25 | NUR ---
RT IN ROOM TO PROVIDE SUCTIONING, PT TOLERATED WELL. PT TOLERATING INCREASED MIDAZOLAM AND APPEARS LESS ANXIOUS. LAST BP 117/81, MAP 0, HR 110. WILL CONTINUE TO MONITOR AND REASSESS RASS SCORE.
--- NOTE | 2017-08-17 10:40 | NUR ---
RN IN ROOM. THIS SUPERVISORY LIFEGUARD ASSISTED RN TO EMPTY PATIENT'S VOSS. RN NOTED FLUID OUTPUT. NO OTHER NEEDS AT THIS TIME.
--- NOTE | 2017-08-17 10:51 | NUR ---
MIDAZOLAM INCREASED TO 3 MG/HR AT THIS TIME DUE TO INCREASED AGGITATION. CURRENT RASS SCORE +2, PT RESTLESSLY MOVING ARMS, TAPPING HANDS, AND LIFTING HEAD. SUCTION DONE, TOELRATED WELL. AGGITATION IMPROVED WITH REASSURANCE AND HAND HOLDING. LAST BP 128/79, MAP 89, AND HR 120. WILL CONTINUE TO MONITOR AND REASSESS RASS SCORE.
--- NOTE | 2017-08-17 11:00 | NUR ---
VERSED GTT INCREASED TO 4 MG/HR. BP142/87. HR-123
--- NOTE | 2017-08-17 11:09 | NUR ---
RN AWARE OF CHANGE IN VITAL SIGNS, RN IN ROOM WITH PATIENT.
--- NOTE | 2017-08-17 11:31 | NUR ---
PT RESTING COMFORTABLY IN BED AT THIS TIME, RASS SCORE -1, MIDAZOLAM RUNNING @ 4 ML/HR, AND KETAMINE RUNNING AT 0.4 MG/KG/HR. PT REPOSTIONED TO LEFT SIDE, HEEL PROTECTORS ASSESSED, PILLOW UNDER BILAT KNEES, AND RESTRAINTS ASSESSED AT THIS TIME.
--- NOTE | 2017-08-17 11:39 | EKG ---
[facility] [address] [place] [address] Signed Poor data quality, interpretation may be adversely affected Sinus tachycardia Biatrial enlargement Nonspecific ST abnormality Abnormal ECG When compared with ECG of 03-AUG-2017 19:34, Vent. rate has increased BY [address] now depressed in Lateral leads Nonspecific T wave abnormality no longer evident in Anterior leads Confirmed by ANDREE VERAS MD ([id number]) on 08/17/2017 11:39:44 AM Electronically Signed By: ANDREE VERAS MD 08/17/17 1139 PATIENT NAME: DANYEL NARANJO Electrocardiogram DATE OF : 51 PHYSICIAN: ANDREE VERAS MD REPORT #: [id number] REPORT IS CONFIDENTIAL AND NOT TO BE RELEASED WITHOUT AUTHORIZATION
--- NOTE | 2017-08-17 11:40 | EKG ---
[facility] [address] [facility] [place], [place] [address] Signed Sinus tachycardia Nonspecific ST abnormality Abnormal ECG When compared with ECG of 16-AUG-2017 22:53, (Unconfirmed) No significant change was found Confirmed by ANDREE VERAS MD ([id number]) on 08/17/2017 11:39:53 AM Electronically Signed By: ANDREE VERAS MD 08/17/17 1140 PATIENT NAME: MARCELLADANYELCASTRO CHAVARRIA Electrocardiogram DATE OF : 51 PHYSICIAN: ANDREE VERAS MD REPORT #: [id number] REPORT IS CONFIDENTIAL AND NOT TO BE RELEASED WITHOUT AUTHORIZATION
--- NOTE | 2017-08-17 12:06 | NUR ---
PT RESTING COMFORTABLY IN BED, CURRENT RASS SCORE -1. IV FLUIDS CONTINUE, MIDAZOLAM @4 ML/HR, KETAMINE @ 0.4 MCG/KG/HR, D5LR @ 125 ML/HR, AND SECOND BAG OF MAHNESIUM @ 50ML/HR. RESTRAINTS ASSESSED AND WNL. WILL CONTINUE TO MONITOR RASS.
--- NOTE | 2017-08-17 12:07 | NUR ---
RN NOTIFIED OF VARIANCE IN VITAL SIGNS, RN IN ROOM.
--- NOTE | 2017-08-17 12:34 | NUR ---
PT NOTED TO BE HYPOTENSIVE AT 74/52, MAP 57, AND HR 108. VERSED TITRATED DOWN TO 3 ML/HR AT THIS TIME, PROVIDER UPDATED. WILL CONTINUE TO MONITOR.
--- NOTE | 2017-08-17 12:52 | NUR ---
PATIENT'S BLOOD PRESSURE HAVE BEEN TRENDING DOWN ON THE VERSED GTT. MOST RECENT BP 80/50(57). URINE OUTPUT ALSO NOTED TO BE SLOWING DOWN. DR. VERAS IN UNIT AND UPDATED. ORDER REC'D TO START A LEVOPHED GTT AND ALSO PLACE A PICC LINE. HEART RATE HAS IMPROVED HOWEVER, AND IS CURRENTLY 108. PT'S SEDATION IS OPTIMAL AT THIS TIME SHE IS RESTING COMFORTABLY WITH A RASS SCORE OF -1 TO -2. CONTINUE TO MONITOR CLOSELY.
--- NOTE | 2017-08-17 13:14 | NUR ---
LEVOPHED INCREASED TO 10 MCG/MIN AT THIS TIME. LAST BP 67/46 (50).
--- NOTE | 2017-08-17 13:19 | NUR ---
VERSED ON STANDBY AT THIS TIME AND KETAMINE TURNED DOWN TO 0.3 MCG/KG/HR.
--- NOTE | 2017-08-17 13:29 | NUR ---
PICC NURSE IN ROOM AT THIS TIME AND GOING TO PLACE PICC. PT'S ARMS BEING EVALUATED. PT REMAINS HYPOTENSIVE AND VERSED REMAINS ON STANDBY AT THIS TIME. LAST BP 75/48 (54), HR 115. DR. VERAS AWARE AND LEVOPHED INFUSING AT 10 MCG/MIN. CONTINUE TO MONITOR CLOSELY.
--- NOTE | 2017-08-17 13:43 | NUR ---
RN IN ROOM WITH PATIENT FOR PROCEDURE. NO OTHER NEEDS AT THIS TIME.
--- NOTE | 2017-08-17 13:44 | NUR ---
Medications reconciled by pharmacist using pharmacy fill records
--- NOTE | 2017-08-17 13:46 | NUR ---
CHECKED IN WITH [facility]-PT STILL ON VENT, BUT HAS RESPONDED WITH [employer]. FAMILY REQUESTED INSIDE SALES REPRESENTATIVE WHEN PT WAS ADMITTED LAST NIGHT. WILL NOTIFY INSIDE SALES REPRESENTATIVE WHEN PT IS OFF VENT
--- NOTE | 2017-08-17 13:48 | NUR ---
LEVOPHED TURNED UP TO 15 MCG/MIN.
--- NOTE | 2017-08-17 14:19 | NUR ---
MULTIPLE RN'S AND DOCTOR IN ROOM. NO OTHER NEEDS AT THIS TIME.
--- NOTE | 2017-08-17 14:20 | NUR ---
PATIENT TO BE SENT DOWN FOR A CHEST ABDOMEN/PELVIS WITH CONTRAST. PT IS ON 30 MCG/MIN OF LEVOPHED AT THIS TIME. ALL SEDATION OFF. PT IS VERY PALE, HR 140s. PT IS VERY TACHYPNEIC WITH RR 35-45. PT NOTED TO HAVE SOME EMESIS IN HER MOUTH. NG TUBE PLACED LEFT NARE BY DR. VERAS.
--- NOTE | 2017-08-17 14:54 | NUR ---
PT RT'D TO UNIT FROM CT. D5LR @125 ML/HR, POTASSIUM @131 ML/HR, AND LEVOPHED @30 MCG/MIN. LAST 112/62, MAP 73, HR 128. CT PENDING AT THIS TIME.
--- NOTE | 2017-08-17 15:28 | NUR ---
MULTIPLE RN'S IN ROOM, AWARE OF VITAL SIGN VARIANCES
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
--- NOTE | 2017-08-17 17:37 | NUR ---
DR. BLACKWELL AT BEDSIDE AND HAS BEEN IN UNIT AND AT BEDSIDE SINCE 1499. FAMILY REMAINS IN ROOM.
--- NOTE | 2017-08-17 18:44 | NUR ---
1545: LEVOPHED WAS INCREASED FROM 30 TO 40 MCG/MIN. 1555: TRANSEXEMIC ACID STARTED AND COMPLETED IN TEN MINUTES. 1559: VASOPRESSIN STARTED AT 0.3 UNITS/MIN. 1610: LEVOPHED DECREASED TO 30 MCG/MIN. 1628: D5 LR @ 125 ML/HR STOPPED. 1632: 2 UNITS OF NS STARTED THROUGH RAPID INFUSER A BOLUS. 1647: LEVOPHED DECREASED TO 20 MCG/MIN. 1648: LEVOPHED DECREASED TO 10 MCG/MIN. 1655: 5 UNITS IV REGULAR INSULIN GIVEN. 1658: LEVOHPED DECREASED TO 7.5 MCG/MIN. 1706: LEVOPHED DECREASED TO 5 MCG/MIN 1721: LEVOPHED DECREASED TO 2 MCG/MIN. VASOPRESSIN REMAINS AT 0.3 UNITS/MIN.
--- NOTE | 2017-08-17 18:53 | NUR ---
PATIENT IS GOING TO BE TRANSFERRED TO [place] IN [place]. [facility] WILL BE HERE IN APPROX 25 MIN TO TRANSFER PATIENT. PT IS STILL TO RECEIVE PLATELETS BEFORE SHE LEAVES. PT REMAINS ON VENT WITH SETTINGS OF VT 400 SIMV 16, PEEP 10, PRESSURE SUPPORT 5, AND FI02 IS 50%. FAMILY REMAINS AT BEDSIDE AND ATTENTIVE.
--- NOTE | 2017-08-17 20:25 | NUR ---
PT LEFT WITH [facility] CREW AT THIS TIME; VITALS STABLE, ONE UNIT OF PRBCS INFUSING WHEN LEFT. VOLUME INTAKE ON PUMPS: NOREPINEPHRINE 16 ML; VASOPRESSIN 63 ML; PROTONIX 55 ML; 0.9% NORMAL SALINE 200 ML; ONE UNIT PRBCS. TRANSFERRING TO [facility] IN [place], [place].
--- NOTE | 2017-08-18 08:33 | CONS ---
[facility] [address], [place] [address] Signed DATE OF CONSULTATION: 08/17/2017 CHIEF COMPLAINT: Anemia. HISTORY OF PRESENT ILLNESS: Danyel is a 62-year-old female with a known history of COPD. In April of this year, she spent time in [facility] with COPD exacerbation along with a myocardial infarction with an ejection fraction around 40%. She had an angiogram done at that time and was recommended she be bandaged medically. She happens to live with her son, Joseluis. She developed fairly acute shortness of breath and ended up driving herself to our local hospital. She had to be intubated in the emergency room for her shortness of breath. She was admitted to the Internal Medicine Service. Later, it was noted that her blood pressures were dropping and along with her hemoglobin. A CT scan of chest, abdomen, and pelvis was performed. She has a large amount of blood in the lesser sac with multiple points of bleeding into that area with blood across the midline around the liver and the pelvis with blood as well. Consequently, I have been called to see her as a general surgeon on-call. PAST MEDICAL HISTORY: 1. COPD. 2. Bronchitis. 3. Coronary artery disease. 4. Myocardial infarction in April 2017 with a left ventricular ejection fraction of 40%. 5. Hyperlipidemia. 6. Depression. 7. Urinary frequency. PAST SURGICAL HISTORY: Hysterectomy and appendectomy. SOCIAL HISTORY: She quit smoking and quit drinking. She lives with her son, Joseluis Desai. FAMILY HISTORY: Not reviewed. REVIEW OF SYSTEMS: Not reviewed. ALLERGIES: Hydroxyzine, penicillin, cephalexin, amoxicillin, and ranitidine. Electronically Signed By: RAMIRO TALAMANTES MD 08/18/17 0833 PATIENT NAME: DANYEL NARANJO CONSULTATION DATE OF : 51 REPORT #: [id number] PHYSICIAN: RAMIRO TALAMANTES MD PCP: BRONSON HARDWICK DO REPORT IS CONFIDENTIAL AND NOT TO BE RELEASED WITHOUT AUTHORIZATION [facility] [address], [place] [address] Signed MEDICATIONS: 1. Albuterol. 2. Aspirin. 3. Oxybutynin. 4. Atorvastatin. 5. Propranolol. 6. Nitroglycerin. 7. Bupropion. 8. Multivitamin. 9. Incruse Ellipta. PHYSICAL EXAMINATION: VITAL SIGNS: Blood pressure is 122/64, heart rate 132, respiratory rate 35, and temperature is 99.8. She is 97%, intubated on the ventilator. She is 5 feet 5 inches and 60 kg. GENERAL: Danyel is unconscious on the ventilator. No real exam possible. LABORATORY DATA: Her white blood cell count is 9.8, hemoglobin has dropped to 4.1 with neutrophils 83. Her sodium is 104 with a bicarb of 13, BUN 11, and creatinine 0.7. Her last pH was 7.42 with her CO2 of 15.8 and bicarb of 10 and 97% with the ET tube in vent. Albumin is low at 1.7. Liver function tests are negative. Coags none. RADIOGRAPHIC STUDIES: Chest x-ray shows the NG tube in the stomach along with her ET tube in the left subclavian PICC line. CT scan chest, abdomen, and pelvis, she has a large amount of blood in the lesser sac pushing on the stomach with multiple points of bleeding. She has blood across the midline around the liver and all the way into the pelvis. ASSESSMENT AND PLAN: Danyel is a 62-year-old female, who has history of significant chronic obstructive pulmonary disease with multiple hospitalizations and myocardial infarction in April of this year, requiring medical management. She came in with what appeared to be a chronic obstructive pulmonary disease exacerbation. She certainly has a large amount of bleeding at this time. The exact bleeding point is hard to know. She is in the process of being resuscitated to help try to stabilize her. Multiple phone calls have gone out including [facility] and [facility] in [place] and of course, everyone agrees that her best chance for diagnosis and treatment survival would be Interventional Radiology. I am not convinced this lady would survive an open surgery and with multiple bleeding points along, we would have to pack the lesser sac and even then I am not sure she will survive surgery and/or induction of anesthesia. In the meantime, her son and family have come and both doctors, Dr. Fonseca and Dr. Tyler have been able to talk with them in detail along with our double needle stitcher. I think everyone is Electronically Signed By: RAMIRO TALAMANTES MD 08/18/17 0833 PATIENT NAME: DANYEL NARANJO CONSULTATION DATE OF : 51 REPORT #: [id number] PHYSICIAN: RAMIRO TALAMANTES MD PCP: BRONSON HARDWICK DO REPORT IS CONFIDENTIAL AND NOT TO BE RELEASED WITHOUT AUTHORIZATION [facility] [address], [place] [address] Signed aware of the gravity of the situation. [facility] in [place] would be happy to accept her if we can get her stable enough for transport, otherwise we are going to do our best here in [place]. Everyone has expressed understanding and agrees to above plan. Ramiro Talamantes MD ALB/MODL /[id number] cc: Ramiro Talamantes MD Copies: RAMIRO TALAMANTES MD ~ Electronically Signed By: RAMIRO TALAMANTES MD 08/18/17 0833 PATIENT NAME: DANYEL NARANJO CONSULTATION DATE OF : 51 REPORT #: [id number] PHYSICIAN: RAMIRO TALAMANTES MD PCP: BRONSON HARDWICK DO REPORT IS CONFIDENTIAL AND NOT TO BE RELEASED WITHOUT AUTHORIZATION
== END 2017-08-17 20:25 | disposition short-term general hospital (02) | DRG 208 ==
LOC: ED 22:49 → CCU 08-17 00:45
PROVIDERS: ADMIT Internal Medicine
PROC: 0BH18EZ Insertion of Endotracheal Airway into Trachea, Via Natural or Artificial Opening Endoscopic (ICD-10-PCS; principal; 2017-08-17)
PROC: 5A1935Z Respiratory Ventilation, Less than 24 Consecutive Hours (ICD-10-PCS; 2017-08-17)
PROC: 02HV33Z Insertion of Infusion Device into Superior Vena Cava, Percutaneous Approach (ICD-10-PCS; 2017-08-17)
PROC: 3E033XZ Introduction of Vasopressor into Peripheral Vein, Percutaneous Approach (ICD-10-PCS; 2017-08-17)
DX: J96.01 Acute respiratory failure with hypoxia (principal); K66.1 Hemoperitoneum; E87.2 Acidosis; J44.1 Chronic obstructive pulmonary disease with (acute) exacerbation; D62 Acute posthemorrhagic anemia; J96.02 Acute respiratory failure with hypercapnia; E78.5 Hyperlipidemia, unspecified; F32.9 Major depressive disorder, single episode, unspecified; I25.10 Atherosclerotic heart disease of native coronary artery without angina pectoris; I25.2 Old myocardial infarction; R39.15 Urgency of urination; I95.9 Hypotension, unspecified; F10.21 Alcohol dependence, in remission; Z87.891 Personal history of nicotine dependence; Z79.82 Long term (current) use of aspirin; Z79.899 Other long term (current) drug therapy; Z88.1 Allergy status to other antibiotic agents; Z88.0 Allergy status to penicillin; Z88.8 Allergy status to other drugs, medicaments and biological substances
CPT/HCPCS: 31500; 31720; 36415; 36430; 36569; 36600; 36620; 51702; 71045; 71260; 74018; 74177; 76942; 80053; 81001; 82803; 83735; 83880; 84484; 85025; 85610; 86850; 86900; 86901; 86920; 86927; 93005; 93010; 94002; 94640; 94799; 96361; 96374; 96375; 99285; J0330; J1650; J1815; J1956; J2250; J2704; J2920; J2930; J3010; J3475; J3480; J7030; J7040; J7050; J7120; P9016; P9035; Q9967

== ENCOUNTER 2017-08-24 19:17 | Emergency (ER) | payer OTHER ==
[~2017-08-24] VITALS: Ht 165.1 cm; Wt 60.2 kg
[~2017-08-24 19:17] MED LIST changes: +ALBUTEROL2.5 MG/3 M INH; +LISINOPRIL10 MG PO; +PANTOPRAZOLE SO40 MG PO
== END 2017-08-24 22:49 | disposition home or self-care (01) ==
LOC: ED 19:17
DX: R14.0 Abdominal distension (gaseous) (principal); Z98.890 Other specified postprocedural states; J44.9 Chronic obstructive pulmonary disease, unspecified; Z87.891 Personal history of nicotine dependence; Z88.0 Allergy status to penicillin; Z88.1 Allergy status to other antibiotic agents; Z88.8 Allergy status to other drugs, medicaments and biological substances; Z79.82 Long term (current) use of aspirin; Z79.899 Other long term (current) drug therapy
CPT/HCPCS: 74177; 80053; 82150; 83690; 85025; 96360; 96361; 99284; J7030; Q9967

== ENCOUNTER 2017-08-29 19:39 | Emergency (ER) | payer OTHER ==
[~2017-08-29] VITALS: Ht 165.1 cm; Wt 60.2 kg
== END 2017-08-29 22:47 | disposition home or self-care (01) ==
LOC: ED 19:39
DX: R10.9 Unspecified abdominal pain (principal); D72.829 Elevated white blood cell count, unspecified; J44.9 Chronic obstructive pulmonary disease, unspecified; Z98.890 Other specified postprocedural states; Z87.891 Personal history of nicotine dependence; Z88.0 Allergy status to penicillin; Z88.1 Allergy status to other antibiotic agents; Z88.8 Allergy status to other drugs, medicaments and biological substances; Z79.899 Other long term (current) drug therapy
CPT/HCPCS: 74177; 80053; 85025; 99284; Q9967

== ENCOUNTER 2017-09-13 18:12 | Emergency (ER) | payer OTHER ==
[~2017-09-13] VITALS: Ht 165.1 cm; Wt 57.1 kg
--- NOTE | 2017-09-14 08:22 | EKG ---
[facility] [address] [place] [address] Signed Normal sinus rhythm with sinus arrhythmia Normal ECG When compared with ECG of 17-AUG-2017 00:12, Vent. rate has decreased BY 48 BPM Nonspecific T wave abnormality no longer evident in Lateral leads Confirmed by AKIRA BLACKWELL MD ([id number]) on 09/14/2017 8:22:01 AM Electronically Signed By: AKIRA BLACKWELL MD 09/14/17 0822 PATIENT NAME: DANYEL NARANJO Electrocardiogram DATE OF : 51 PHYSICIAN: AKIRA BLACKWELL MD REPORT #: [id number] REPORT IS CONFIDENTIAL AND NOT TO BE RELEASED WITHOUT AUTHORIZATION
== END 2017-09-13 21:38 | disposition home or self-care (01) ==
LOC: ED 18:12
DX: R07.89 Other chest pain (principal); J44.9 Chronic obstructive pulmonary disease, unspecified; Z87.891 Personal history of nicotine dependence; Z88.0 Allergy status to penicillin; Z88.1 Allergy status to other antibiotic agents; Z88.8 Allergy status to other drugs, medicaments and biological substances; Z79.899 Other long term (current) drug therapy
CPT/HCPCS: 71046; 80053; 84484; 85025; 93005; 93010; 99284

== ENCOUNTER 2017-09-28 14:55 | Emergency (ER) | payer OTHER ==
[~2017-09-28] VITALS: Ht 165.1 cm; Wt 57.1 kg
[2017-09-28] MEDS ORDERED: BACTRIM DS TAB1 EACH PO (16:43)
== END 2017-09-28 16:54 | disposition home or self-care (01) ==
LOC: ED 14:55
DX: N39.0 Urinary tract infection, site not specified (principal); Z88.0 Allergy status to penicillin; Z88.1 Allergy status to other antibiotic agents; Z88.8 Allergy status to other drugs, medicaments and biological substances; Z79.899 Other long term (current) drug therapy
CPT/HCPCS: 80053; 81001; 85025; 99284

== ENCOUNTER 2018-06-27 16:31 | Emergency (ER) | payer OTHER ==
[~2018-06-27] VITALS: Ht 165.1 cm; Wt 57.1 kg
--- OUTSIDE RECORDS SUMMARY | ~2018-06-27 | XMS | Clinical Summary ---
Demographics + + + | Address | [address] | | | [place] [address] | + + + | Home Phone | | + + + | Preferred Language | Unknown | + + + | Marital Status | Single | + + + | Hindu Affiliation | Unknown | + + + | Race | Unknown | + + + | Ethnic Group | Unknown | + + + Author + + + | Author | [facility] | + + + | Organization | [facility] | + + + | Address | Unknown | + + + | Phone | Unavailable | + + + Support + + +---------+ + | Name | Relationship | Address | Phone | + + +---------+ + | Joseluis Desai | ECON | Unknown | | + + +---------+ + Care Team Providers + +------+ + | Care Integration Consultant Name | Role | Phone | + [...] + + + Current Medications + + +---------+---------+------+------+-------+ | Prescription | Sig. | Disp. | Refills | Star | End | Statu | | | | | | t | Date | s | | | | | | Date | | | + + +---------+---------+------+------+-------+ | propranolol | Take 80 mg by mouth | | | | | Activ | | (INDERAL) 80 MG | daily. | | | | | e | | tablet | | | | | | | + + +---------+---------+------+------+-------+ | nitroGLYCERIN | Place 0.4 mg under [...] | | | | | + + +---------+---------+------+------+-------+ | buPROPion (ZYBAN) | Take 150 mg by mouth | | | | | Activ | | 150 MG 12 hr tablet | 2 (two) times | | | | | e | | | daily. | | | | | | + + +---------+---------+------+------+-------+ | atorvastatin | Take 40 mg by mouth | | | | | Activ | | (LIPITOR) 40 MG | nightly. | | | | | e | | tablet | | | | | | | + + +---------+---------+------+------+-------+ | oxybutynin | Take 5 mg by mouth 2 | | | | | Activ | | (DITROPAN) 5 MG | (two) times daily. | | | | | e | | tablet | | | | | | | + + +---------+---------+------+------+-------+ | omeprazole | Take 20 mg by mouth | | | | | Activ | | (PRILOSEC) 20 MG | every morning before | | | | | e | | capsule | breakfast. | | | | | | + + +---------+---------+------+------+-------+ | lisinopril | Take 10 mg by mouth | | | | | Activ | | (ZESTRIL) 10 MG | daily. | | | | | e | | tablet | | | | | | | + + +---------+---------+------+------+-------+ | aspirin 81 MG | Take 81 mg by mouth | | | | | Activ | | tablet | daily. | | | | | e | + + +---------+---------+------+------+-------+ | pantoprazole | Take 40 mg by mouth | | | | | Activ | | (PROTONIX) 40 MG | every morning before | | | | | e | | tablet | breakfast. | | | | | | + + +---------+---------+------+------+-------+ | | Inhale 2 puffs into | | | | | Activ | | mometasone-formotero | the lungs 2 (two) | | | | | e | | l (DULERA) 200-5 | times daily. | | | | | | | MCG/ACT inhaler | | | | | | | + + +---------+---------+------+------+-------+ | albuterol | Inhale 2 puffs into | 1 | | 04/0 | 04/0 | Activ | | (VENTOLIN HFA) 108 | the lungs every 4 | Inhaler | | 3/20 | 2/20 | e | | (90 Base) MCG/ACT | (four) hours as | | | 19 | 20 | | | inhaler | needed for Wheezing. | | | | | | + + +---------+---------+------+------+-------+ | Multiple | Take 1 tablet by | | | | 04/0 | Disco | | Vitamins-Minerals | mouth daily. | | | | 3/20 | ntinu | | (MULTIVITAMIN WITH | | | | | 19 | ed | | MINERALS) tablet | | | | | | | + + +---------+---------+------+------+-------+ | albuterol | Inhale 2 puffs into | | | | 04/0 | Disco | | (PROVENTIL | the lungs every 4 | | | | 3/20 | ntinu | | HFA;VENTOLIN HFA) | (four) hours as | | | | 19 | ed | | 108 (90 Base) | needed for Wheezing. | | | | | | | MCG/ACT inhaler | | | | | | | + + +---------+---------+------+------+-------+ | Umeclidinium | Inhale into the | | | | 04/0 | Disco | | [place] (INCRUSE | lungs. | | | | 3/20 | ntinu | | [place]) | | | | | 19 | ed | + + +---------+---------+------+------+-------+ Active Problems + + + | Problem | Noted Date | + + + | Essential hypertension | 08/20/2017 | + + + | Precordial pain | 04/19/2017 | + + + | Major depressive disorder, recurrent episode, moderate with | 06/19/2015 | | anxious distress (HCC) | | + + + + + | Overview: Last Assessment & Plan: | | Improved with wellbutrin. Refill sent to pharmacy. | + + + + + | COPD (chronic obstructive pulmonary disease) ([facility]) | 10/22/2013 | + + + + [...] | +--------+ + + + + | 06/22/ | Documentati | | [facility] | Earnest Sykes | | 2019 | on Only | | CANDACE Zamora | records) | +--------+ + + + + | 06/14/ | Office | | Aaron Zimmerman, | Precordial pain | | 2018 | Visit | | MD | (Primary Dx); | | | | | | Encounter for annual | | | | | | health examination | +--------+ + + + + from [...] + + + | Blood Pressure | 124/64 | 06/14/2018 11:43 AM PDT | + + + + | Pulse | 57 | 06/14/2018 11:43 AM PDT | + + + + | Temperature | - | - | + + + + | Respiratory Rate | - | - | + + + + | Oxygen Saturation | 100% | 06/14/2018 11:43 AM PDT | + + + + | Inhaled Oxygen | - | - | | Concentration | | | + + + + | Weight | 70.6 kg (155 lb 9.6 | 06/14/2018 11:43 AM PDT | | | oz) | | + + + + | Height | 165.1 cm (5' 5") | 06/14/2018 11:43 AM PDT | + + + + | Body Mass Index | 25.89 | 06/14/2018 11:43 AM PDT | + + + + Plan of Treatment +--------+---------+ + + + | Date | Type | Specialty | Care Team | Description | +--------+---------+ + + + | 06/26/ | Office | | Aaron Zimmerman, | | | 2019 | Visit | | MD Katelyn Mercedes | | | | | | Dr Carrera, | | | | | | [place] [address] | | | | | | [phone] | | | | | | | | +--------+---------+ + + + + + + + + | Health Maintenance | Due Date | Last Done | Comments | + + + + + | Vaccine: | | | | | Dtap/Tdap/Td (1 - | 3 | | | | Tdap) | | | | + + + + + | Vaccine: | | | | | Pneumococcal 19-64 | 3 | | | | (PPSV23 only) Medium | | | | | Risk (1 of 1 - | | | | | PPSV23) | | | | + + + + + | Cervical Cancer | | | | | Screening (Pap) | 4 | | | + + + + + | Breast Cancer | | | | | Screening | 4 | | | | (Mammogram) | | | | + + + + + | Colon Cancer | | | | | Screening | 4 | | | | (Colonoscopy) | | | | + + + + + | Vaccine: Zoster (1 | | | | | of 2) | 4 | | | + + + + + | Vaccine: Influenza | | | | | (Season Ended) | 9 | | | + + + + + Procedures + +--------+ + + + | Procedure Name | Priori | Date/Time | Associated Diagnosis | Comments | | | ty | | | | + +--------+ + + + | EK STANDARD 12 LEAD | Routin | 06/14/2018 | Precordial pain | Results for this | | | e | 11:58 AM | Encounter for annual | procedure are in the | | | | PDT | health examination | results section. | + +--------+ + + + from Last 3 Months Results EK STANDARD 12 LEAD (06/14/2018 11:58 AM) + + + + + | Component | Value | Ref Range | Performed At | + + + + + | Ventricular Rate | 59 | BPM | [facility] | + + + + + | Atrial Rate | 59 | BPM | [facility] | + + + + + | P-R Interval | 200 | ms | [facility] | + + + + + | QRS Duration | 74 | ms | [facility] | + + + + + | Q-T Interval | 416 | ms | [facility] | + + + + + | QTC Calculation | 411 | ms | [facility] | | (Bezet) | | | | + + + + + | Calculated P [place] | 62 | degrees | [facility] | + + + + + | Calculated R [place] | 21 | degrees | [facility] | + + + + + | Calculated T [place] | 63 | degrees | [facility] | + + + + + | Diagnosis | Sinus | | [facility] | | | bradycardiaOtherwise | | | | | normal ECGNo previous | | | | | ECGs availablePlease | | | | | refer to Providers | | | | | office visit note for | | | | | Providers | | | | | Interpretation.Confirmed | | | | | by [facility] [place] Read Only, | | | | | [facility] Daren ([id number]), | | | | | features editor Shay Stokes | | | | | (253) on 06/14/2018 | | | | | 1:27:11 PM | | | + + + + + + + + + + | Performing | Address | City/State/Zipcode | Phone Number | | Organization | | | | + + + + + | [facility] | [address] | [place] [address] | | + + + + + from Last 3 Months Insurance + +--------+ +------+-------+ + | Payer | Benefi | Subscriber | Type | Phone | Address | | | t Plan | ID | | | | | | / | | | | | | | Group | | | | | + +--------+ +------+-------+ + | MEDICAID | [place] | [id number] | | | [address] | | | [place] | | | | [place] | | | [place] | | | | [address] | | | HOME HEALTH NURSE | | | | | + +--------+ [...] [address] | | | al/Fam | | [phone] | [phone] | [place] | | | [place] | | | [phone] | [address] | + +--------+ +--------+ + +
--- OUTSIDE RECORDS SUMMARY | ~2018-06-27 | XMS | Encounter Summary ---
Demographics + + + | Address | [address] | | | [place] [address] | + + + | Home Phone | | + + + | Preferred Language | Unknown | + + + | Marital Status | | + + + | Mormon Affiliation | 1028 | + + + | Race | Unknown | + + + | Ethnic Group | Unknown | + + + Author + + + | Author | [facility] | | | and [place] | + + + | Organization | [facility] | | | and [place] | + + + | Address | Unknown | + + + | Phone | Unavailable | + + + Support + + + + + | Name | Relationship | Address | Phone | + + + + + | Joseluis Desai | ECON | [place] | | | | | [address] | | + + + + + | Mila Desai | ECON | Unknown | | + + + + + Care Team Providers + +------+ + | Care Cathode Ray Tube Assembler Name | Role | Phone | [...] Description | +--------+--------+ + + + | 06/18/ | Refill | [facility] | Tyree Joyce, | Medication Refill | | 2019 | | PULMONARY [address] | MD [address] | | | | | [place], | [place], [place] | | | | | [place] [address] | [place], [place] | | | | | [phone] | [address] | | | | | | | | +--------+--------+ + + + [...] | Yes | | | Recovering alcoholic (patient denies), | | | | | would consume a box of wine in 2 days | + [...] Description | +--------+---------+ + + + | 06/30/ | Office | Pulmonology | Tyree Joyce, | | | 2018 | Visit | | MD Gisele Urena | | | | | | [place] | | | | | | [place] | | | | | | [address] | | | | | | | | +--------+---------+ + + + documented as of this encounter Visit Diagnoses Not on filedocumented in this encounter"
--- OUTSIDE RECORDS SUMMARY | ~2018-06-27 | XMS | Encounter Summary ---
Demographics + + + | Address | [address] | | | [place] [address] | + + + | Home Phone | | + + + | Preferred Language | Unknown | + + + | Marital Status | Single | + + + | Faith Affiliation | Unknown | + + + | Race | Unknown | + + + | Ethnic Group | Unknown | + + + Author + + + | Author | [facility] | + + + | Organization | [facility] | + + + | Address | Unknown | + + + | Phone | Unavailable | + + + Support + + +---------+ + | Name | Relationship | Address | Phone | + + +---------+ + | Joseluis Desai | ECON | Unknown | | + + +---------+ + Care Team Providers + +------+ + | Care Booking Officer Name | Role | Phone | + +------+ + | Bry Hardwick | PCP | | + +------+ + Reason for Visit + + + | Reason | Comments | + + + | Follow-up | Annual | + + + Routine Exam (Routine) + +--------+ + + + + | Status | Reason | Specialty | Diagnoses / | Referred By | Referred To | | | | | Procedures | Contact | Contact | + +--------+ + + + + | Authorized | | Cardiology | Diagnoses | Katherineama, | Elsie, | | | | | | MD Aaron | MD Aaron | | | | | Cardiomyopat | [address] | | | | | hy, | [address] | Dr Ordonez | | | | | unspecified | Aric Collado | [place] | | | | | ([facility]LY [facility]) | [place], [place] | [address] Phone: | | | | | Annual | [phone] | [phone] | | | | | Procedures | Phone: | Fax: | | | | | CRD ANNUAL | | [phone] | | | | | FOLLOW UP | Fax: | | | | | | | [phone] | | + +--------+ + + + + Encounter Details +--------+---------+ + + + | Date | Type | Department | Care Team | Description | +--------+---------+ + + + | 03/ | Office | [facility] | Aaron Brito, | Precordial pain | | 2019 | Visit | Cardiology Yogi | MD Katelyn Mercedes | (Primary Dx); | | | | [address] | Dr Carrera, | Encounter for annual | | | | [address] | [place] [address] | health examination | | | | [place] [address] | [phone] | | | | | [phone] | | | +--------+---------+ + + + [...] AM PDT | + + + + in this encounter Progress Notes Aaron Brito MD - 06/14/2018 11:45 AM PDTFormatting of this note may be different fro m the original. Date of Visit: 06/14/18 Chief Complaint Patient presents with Follow-up Annual Requesting Physician: BRY HARDWICK, Internal Medicine HISTORY OF PRESENT ILLNESS: Patient is 62 y.o. year old female. Presented for follow up visit. Denies any chest st pain, shortness of breath, orthopnea or LE edema. Initially was evaluated for atypical chest pain. Was hospitalized twice in 2018 initially in Apr 2017 due to acute respiratory failure. Was found to have impaired systolic function. Hence coronary angiogram was performed and sh owed no obstructive coronary artery disease. Again in August 2017 due to hemorrhage shock. Was found to have large abdominal bleeding, und erwent embolization of right gastric artery . Previously EKG stress test was performed however patient was on propanolol which was not st opped. Did 3 minutes and 52 seconds and could not achieve maximal age-predicted heart rate, there was no ischemic EKG changes. Patient has history of tremors status why she takes propanolol, has history of COPD due to previous and remote history of smoking. Since prior evaluation denies any recurrent episodes of chest pain. REVIEW OF SYSTEMS Constitutional: Negative for fatigue, no fever or chills. HENT: Negative for nosebleeds, no runny nose or sneezing. Eyes: Negative for visual disturbance, no double vision, tearing or itching. Respiratory: Positive Cough and shortness of breath. Cardiovascular: As [...] Hyperlipidemia Past Surgical History Procedure Laterality Date AORTIC VALVE SURGERY APPENDECTOMY COLONOSCOPY HYSTERECTOMY MEDICATIONS Home Medications Current Outpatient Prescriptions: albuterol (PROVENTIL HFA;VENTOLIN HFA) 108 (90 Base) MCG/ACT inhaler, Inhale 2 puffs i nto the lungs every 4 (four) hours as needed for Wheezing., Disp: , Rfl: aspirin 81 MG tablet, Take 81 mg by mouth daily., Disp: , Rfl: atorvastatin (LIPITOR) 40 MG tablet, Take 40 mg by mouth nightly., Disp: , Rfl: buPROPion (ZYBAN) 150 MG 12 hr tablet, Take 150 mg by mouth 2 (two) times daily., Disp : , Rfl: lisinopril (ZESTRIL) 10 MG tablet, Take 10 mg by mouth daily., Disp: , Rfl: mometasone-formoterol (DULERA) 200-5 MCG/ACT inhaler, Inhale 2 puffs into the lungs 2 (two) times daily., Disp: , Rfl: nitroGLYCERIN (NITROSTAT) 0.4 [...] (two) times daily., Disp: , Rf l: pantoprazole (PROTONIX) 40 MG tablet, Take 40 mg by mouth every morning before breakfa st., Disp: , Rfl: propranolol (INDERAL) 80 MG tablet, Take 80 mg by mouth daily., Disp: , Rfl: Multiple Vitamins-Minerals (MULTIVITAMIN WITH MINERALS) tablet, Take 1 tablet by mouth daily., Disp: , Rfl: Umeclidinium [place] (INCRUSE [place]), Inhale into the lungs., [...] on file PHYSICAL EXAM Vital Signs: BP 124/64 (BP Location: Left upper arm, Patient Position: Sitting) | Pulse 57 | Ht 1.651 m (5' 5") | Wt 70.6 kg (155 lb 9.6 oz) | SpO2 100% | BMI 25.89 kg/m Constitutional: Well-developed. Neck: No JVD present. [...] nerve deficit. Skin: Warm and dry. DATA 09/28/2017 WBC 9.6, hemoglobin 14.2, platelets 325, sodium 134, potassium 4.3, chloride 98, bicarb 29, BUN 6, creatinine 0.61, GFR 99. Some 9.7. AST 13, ALT 20, alk phos 80. 12/28/16 WBC 11.2, hemoglobin 14.4, platelets 327, [...] CHOL, TRIG, LDL, LDL, GLUF, HGBA1C, TSH EK06/14/2018 Rhythm reviewed by myself showed sinus bradycardia otherwise normal EKG 07/01/2017 From [facility] showed normal ECG. Last Echo: 08/18/2017 Reported with normal LV size and function EF 65-70%. Normal RV size and function. 04/28/2017 Reported with function EF 40%. Akinesis of mid to distal anterior septum, severe anterior and apical hypokinesis. Last stress test: 01/12/2017 Juan José 3:52 sec, submaximal 77% of MAPHR. No ischemia at this level of exercise. Last cath: 05/09/2017 Reported with LAD mild diffuse disease, left circumflex mild to moderate stenosis, RCA antony nant with mild disease. Carotid US: AAA screening: Lower extremity US: OTHERS: ASSESSMENT & PLAN Patient is 62 y.o. female with the following medical problems 1. Acute coronary syndrome, Takotsubo likely due to acute respiratory failure. 2. Essential tremors on propanolol. 3. Chronic obstructive pulmonary disease. No exacerbation relation at this time. 4. Dyslipidemia. 5. 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 Recommendations: Reviewed hospitalizations from [place] and [place]. No chest pain or shortness of breath. LV function recovered. At this time since patient did not have any recurrent symptoms, no further testing is indic ated. Will continue with propanolol Follow up annually or sooner as needed. Thank you for allowing me to participate in the care of this patient. Primary Care Physician: BRY Brito MD 06/14/2018in this encounter Plan of Treatment +--------+---------+ + + + | Date | Type | Specialty | Care Team | Description | +--------+---------+ + + + | 06/26/ | Office | Cardiology | Aaron Brito, | | | 2019 | Visit | | MD Katelyn Mercedes | | | | | | Dr Carrera, | | | | | | [place] [address] | | | | | | [phone] | | | | | | | | +--------+---------+ + + + as of this encounter Procedures + +--------+ + + + | Procedure Name | Priori | Date/Time | Associated Diagnosis | Comments | | | ty | | | | + +--------+ + + + | EKG STANDARD 12 LEAD | Routin | 06/14/2018 | Precordial pain | Results for this | | | e | 11:58 AM | Encounter for annual | procedure are in the | | | | PDT | health examination | results section. | + +--------+ + + + in this encounter Results EKG STANDARD 12 LEAD (06/14/2018 11:58 AM) + [...] + + + + | Calculated P [place] | 62 | degrees | [facility] | + + + + + | Calculated R [place] | 21 | degrees | [facility] | + + + + + | Calculated T [place] | 63 | degrees | [facility] [...] | | | | | by [facility] Read Only, | | | | | [facility] Daren ([id number]), | | | | | book or script editor Shay Stokes | | | | | (253) on 06/14/2018 | | | | | 1:27:11 PM | | | + + + + + + + + + + | Performing | Address | City/State/Zipcode | Phone Number | | Organization | | | | + + + + + | [facility] | [address] | [place] [address] | | + + + + + in this encounter Visit Diagnoses + + | Diagnosis | + + | Precordial pain - Primary | + + | Encounter for annual health examination | + + | Routine general medical examination at a health care facility | + +
--- OUTSIDE RECORDS SUMMARY | ~2018-06-27 | XMS | Encounter Summary ---
Demographics + + + | Address | [address] | | | [place] [address] | + + + | Home Phone [...] + + + | Author | [facility] | + + + | Organization | [facility] | + + + | Address | Unknown | + + + | Phone | Unavailable | + + + Support + + +---------+ + | Name | Relationship | Address | Phone | + + +---------+ + | Joseluis Desai | ECON | Unknown | | + + +---------+ + Care Team Providers + +------+ + | Care Rental Sales Agent Name | Role | Phone | + [...] [place] | | | | | ([facility]) | [place], [place] | [address] Phone: | | | | | Annual | [address] | [phone] | | | | | Procedures | Phone: | Fax: | | | | | CRD ANNUAL | | [phone] | | | | | FOLLOW UP | Fax: | | | | | | | [phone] | | + +--------+ + + + + Encounter Details +--------+---------+ + + + | Date | Type | Department | Care Team | Description | +--------+---------+ + + + | 03/ | Office | [facility] [place] | Aaron Brito, | Precordial pain | | 2019 | Visit | Cardiology Yogi | MD Katelyn Mercedes | (Primary Dx); | | | | [address] | Dr Carrera, | Encounter for annual | | | | [address] | [place] [address] | health examination | | | | [place] [address] | [phone] | | | | | [phone] | | | +--------+---------+ + + + [...] by mouth daily., Disp: , Rfl: Umeclidinium [place] (INCRUSE [place]), Inhale into the lungs., [...] sinus bradycardia otherwise normal EKG 07/01/2017 [facility] showed normal ECG. Last Echo: 08/18/2017 Reported [...] gastric artery pseudoaneurysm. Recommendations: Reviewed hospitalizations from [place] and [place]. No chest pain or shortness of breath. [...] [place], | | | | | | [place] [address] | | | | | | [phone] | | | | | | | [...] + + + + | Calculated P [place] | 62 | degrees | [facility] | + + + + + | Calculated R [place] | 21 | degrees | [facility] | + + + + + | Calculated T [place] | 63 | degrees | [facility] [...] | | | | | by [facility] [place] Read Only, | | | | | [facility] Daren ([id number]), | | | | | editor at large Shay Stokes | | | | | (253) on 06/14/2018 | | | | | 1:27:11 PM | | | + + + + + + + + + + | Performing | Address | City/State/Zipcode | Phone Number | | Organization | | | | + + + + + | [facility] | [address] | [place] [address] | | + + + + + in this encounter Visit Diagnoses + + | Diagnosis | + + | Precordial pain - Primary | + + | Encounter for annual health examination | + + | Routine general medical examination at a health care facility | + +
--- OUTSIDE RECORDS SUMMARY | ~2018-06-27 | XMS | Encounter Summary ---
Demographics + + + | Address | [address] | | | [place] [address] | + + + | Home Phone | | + + + | Preferred Language | Unknown | + + + | Marital Status | | + + + | Evangelical Affiliation | 1028 | + + + | Race | Unknown | + + + | Ethnic Group | Unknown | + + + Author + + + | Author | [facility] | | | and [place] | + + + | Organization | [facility] | | | and [place] | + + + | Address | Unknown | + + + | Phone | Unavailable | + + + Support + + + + + | Name | Relationship | Address | Phone | + + + + + | Joseluis Desai | ECON | [place] | | | | | [address] | | + + + + + | Mila Desai | ECON | Unknown | | + + + + + Care Team Providers + +------+ + | Care Senior Asic Engineer Name | Role | Phone | [...] | PULMONARY [address] | MD [address] | | | | | [place], | [place], [place] | | | | | [place] [address] | [place], [place] | | | | | [phone] | [address] | | | | | [...] [place] | | | | | | [address] | | | | | | | | +--------+---------+ + + + documented as of this encounter Visit Diagnoses Not on filedocumented in this encounter"
--- OUTSIDE RECORDS SUMMARY | ~2018-06-27 | XMS | Clinical Summary ---
Demographics + + + | Address | [address] | | | [place] [address] | + + + | Home Phone | | + + + | Preferred Language | Unknown | + + + | Marital Status | | + + + | Methodist Affiliation | 1028 | + + + | Race | Unknown | + + + | Ethnic Group | Unknown | + + + Author + + + | Author | [facility] | | | and [place] | + + + | Organization | [facility] | | | and [place] | + + + | Address | Unknown | + + + | Phone | Unavailable | + + + Support + + + + + | Name | Relationship | Address | Phone | + + + + + | Joseluis Desai | ECON | [place] | | | | | [address] | | + + + + + | Mila Desai | ECON | Unknown | | + + + + + Care Team Providers + +------+ + | Care Financial Services Intern Name | Role | Phone | + [...] + | Hydroxyzine Hcl | | | 02/25/20 | | [...] by | | 0 | | | Activ | | Vitamins-Minerals [...] | nebulization every 4 | | | 1/20 | | e | | mcg/2.5 mL nebulizer | hours as needed. | | | 18 | | | | solution | | | | | | | + + + +---------+------+------+-------+ | albuterol 2.5 mg/3 | Take 3 mLs by | 360 | 1 | 10/0 | | Activ | | mL nebulizer | nebulization every 4 | vial | | 1/20 | | e | | solution | hours as needed. | | | 18 | | | + + + +---------+------+------+-------+ | DULERA 200-5 | inhale 2 puffs by | 13 g | 3 | 04/0 | | Activ | | MCG/ACT inhaler | mouth twice a day | | | 8/20 | | e | | | Rinse mouth after | | | 19 | | | | | use | | | | | | + + + +---------+------+------+-------+ | | Inhale 2 puffs into | 1 | 3 | 11/2 | 04/0 | Disco | | mometasone-formotero | the lungs Twice | Inhaler | | 0/20 | 7/20 | ntinu | | l (DULERA) 200-5 | Daily. Rinse mouth | | | 18 | 19 | ed | | mcg/puff inhaler | after use. | | | | | | + [...] + + | 06/18/ | Refill | | Tyree Joyce, | Medication Refill | | 2018 | | | MD | | +--------+--------+ + + + from Last 3 Months Immunizations + + + + | Name | Dates Previously Given | Next Due | + + + + | INFLUENZA PF | 11/08/2017, 11/19/2015, 10/30/2014 | | | QUAD(PED/ADOL/ADULT) | [...] | Blood Pressure | 112/72 | 12/30/2017 1352 PDT | + + + + | Pulse | 50 | 12/30/2017 1352 PDT | + + + + | Temperature | 36.2 C (97.1 F) | 08/23/2017 1300 PDT | + + + + | Respiratory Rate | 22 | 08/23/2017 1418 PDT | + + + + | Oxygen Saturation | 99% | 12/30/20171351 PDT | + + + + | Inhaled Oxygen | - | - | | Concentration | | | + + + + | Weight | 60.3 kg (132 lb 15 | 12/30/20171351 PDT | | | oz) | | + + + + | Height | 165.1 cm (5' 5") | 12/30/20171351 PDT | + + + + | Body Mass Index | 22.12 | 12/30/20171351 PDT | + + + + Plan of Treatment +--------+---------+ + + + | Date | Type | Specialty | Care Team | Description | +--------+---------+ + + + | 06/30/ | Office | | Tyree Joyce, | | | 2018 | Visit | | MD Gisele Urena | | | | | | [place] | | | | | | [place] | | | | | | [address] | | | | | | | [...] Cancer | | | | | Screening (Ages | 4 | | | | 50-74) | | | | + + + + + | Colorectal Cancer | | | | | Screening | 4 | | | | (Colonoscopy) | | | | + + + + + | Vaccine: Zoster (2 | | 07/12/2016 | | | of 3) | 7 | | | + + + + + | Lung Cancer | | 08/17/2017, 05/07/2017 | | | Screening | 9 | [...] + + + | Vaccine: Influenza | Completed | 11/08/2017, 11/19/2015, | | | | | 10/30/2014, Additional history | | | | | [...] | | | | | 2021 | /[id number] | | 1 on 08/18/2017 by Dilcia, [...] | [employer] | MODA | [id number] | 03/01/ | [phone] | | Medica | | MEDICAID HMO [...] Amy Coleman | Person | Self | [birth year] | [address] | | | al/Fam | | 1956 | [phone] | [place], [place] | | | [place] | | | [address] ([place]) | [address] | + +--------+ +--------+ + + Advance Directives Patient has advance care planning documents, and code status on file. For more information, please contact:[facility] [place] [address] + + + + + | Code Status | Date | Date | Comments | | | Activated | Inactivated | | + + + + + | Full Code | 08/19/2017 | 08/23/2017 | | | | 9:51 | 17:35 | | + + + + + + + + +---+ | | | | | + + + +---+ | TBD - Full | 08/17/2017 | 08/19/2017 | | | Code by | 22:13 | 9:51 | | | default | | | | + + + +---+ + + + +---+ | | | | | + + + +---+ | Full Code | 05/08/2017 | 05/11/2017 | | | | 1:02 | 18:27 | | + + + +---+
--- OUTSIDE RECORDS SUMMARY | ~2018-06-27 | XMS | Clinical Summary ---
Demographics + + + | Address | [address] | | | [place] [address] | + + + | Home Phone | | + + + | Preferred Language | Unknown | + + + | Marital Status | | + + + | Baptism Affiliation | 1028 | + + + | Race | Unknown | + + + | Ethnic Group | Unknown | + + + Author + + + | Author | [facility] | | | and [place] | + + + | Organization | [facility] | | | and [place] | + + + | Address | Unknown | + + + | Phone | Unavailable | + + + Support + + + + + | Name | Relationship | Address | Phone | + + + + + | Joseluis Desai | ECON | [place] | | | | | [address] | | + + + + + | Mila Desai | ECON | Unknown | | + + + + + Care Team Providers + +------+ + | Care Pricing Associate Name | Role | Phone | [...] | | | | | [place] | | | | | | [address] | | | | | | | [...] | | | | | 2021 | /[id number] | | 1 on 08/18/2017 by Dilcia, [...] | [employer] | MODA | [id number] | 03/01/ | [phone] | | Medica [...] | | [place] | | | [address] ([place]) | [address] | + +--------+ +--------+ + + Advance Directives Patient has advance care planning documents, and code status on file. For more information, please contact:[facility] [place] [address] + + + + + | Code [...]
--- OUTSIDE RECORDS SUMMARY | ~2018-06-27 | XMS | Clinical Summary ---
Demographics + + + | Address | [address] | | | [place] [address] | + + + | Home Phone | | + + + | Preferred Language | Unknown | + + + | Marital Status | Single | + + + | Zoroastrian Affiliation | Unknown | + + + | Race | Unknown | + + + | Ethnic Group | Unknown | + + + Author + + + | Author | [facility] | + + + | Organization | [facility] | + + + | Address | Unknown | + + + | Phone | Unavailable | + + + Support + + +---------+ + | Name | Relationship | Address | Phone | + + +---------+ + | Joseluis Desai | ECON | Unknown | | + + +---------+ + Care Team Providers + +------+ + | Care Shank Cementer Hand Name | Role | Phone | [...] | | 04/0 | Disco | | [place] ([place] | lungs. | | | | [...] + | COPD (chronic obstructive pulmonary disease) ([facility]) | 10/22/2013 | + + + [...] | | | | | | [place] [address] | | | | | | [phone] | | | | | | | [...] + + + + | Calculated P [place] | 62 | degrees | [facility] | + + + + + | Calculated R [place] | 21 | degrees | [facility] | + + + + + | Calculated T [place] | 63 | degrees | [facility] [...] | | | | | by [facility] [place] Read Only, | | | | | [facility] ([id number]), | | | | | assistant production editor Shay Stokes | | | | | ([phone]) on 06/14/2018 | | | | | 1:27:11 PM | | | + + + + + + + + + + | Performing | Address | City/State/Zipcode | Phone Number | | Organization | | | | + + + + + | [facility] | [address] | [place] [address] | | + + + + + [...] +------+-------+ + | MEDICAID | [place] | [id number] | | | [address] | | | [place] | | | | [place] | | | [place] | | | | [address] | | | SEISMOMETER OPERATOR | | | | | + +--------+ [...] | [place] | | | [phone] | [address] | + +--------+ +--------+ + +
--- OUTSIDE RECORDS SUMMARY | ~2018-06-27 | XMS | Encounter Summary ---
Demographics + + + | Address | [address] | | | [place] [address] | + + + | Home Phone | | + + + | Preferred Language | Unknown | + + + | Marital Status | Single | + + + | Gnosticist Affiliation | Unknown | + + + | Race | Unknown | + + + | Ethnic Group | Unknown | + + + Author + + + | Author | [facility] | + + + | Organization | [facility] | + + + | Address | Unknown | + + + | Phone | Unavailable | + + + Support + + +---------+ + | Name | Relationship | Address | Phone | + + +---------+ + | Joseluis Desai | ECON | Unknown | | + + +---------+ + Care Team Providers + +------+ + | Care Grommet Machine Operator Name | Role | Phone | + +------+ + | Bry Vaughn DO | PCP | | + +------+ + Reason for Visit +--------+ + | Reason | Comments | +--------+ + | Other | [facility] records | +--------+ + Encounter Details +--------+ + + + + | Date | Type | Department | Care Team | Description | +--------+ + + + + | 06/22/ | Documentati | [facility] | [facility] | Other ([facility] | | 2019 | on Only | Cardiology [place] | [facility] | records) | | | | [address] | [address] | | [address] | | | | | | [place] [address] | | | | | | [phone] | | | +--------+ + + + [...] | | | | | | [place] [address] | | | | | | [phone] | | | | | | | | +--------+---------+ + + + as of this encounter Visit Diagnoses Not on filein this encounter"
--- OUTSIDE RECORDS SUMMARY | ~2018-06-27 | XMS | Encounter Summary ---
Demographics + + + | Address | [address] | | | [place] [address] | + + + | Home Phone [...] + + + | Author | [facility] | + + + | Organization | [facility] | + + + | Address | Unknown | + + + | Phone | Unavailable | + + + Support + + +---------+ + | Name | Relationship | Address | Phone | + + +---------+ + | Joseluis Desai | ECON | Unknown | | + + +---------+ + Care Team Providers + +------+ + | Care Steel Worker Name | Role | Phone | [...] | | | | | [place] [address] | | | | | | [phone] | | | +--------+ + + + [...] | | | | | | [place] [address] | | | | | | [phone] | | | | | | | | +--------+---------+ + + + as of this encounter Visit Diagnoses Not on filein this encounter"
[~2018-06-27 16:31] MED LIST changes: +BACTRIM DS TAB1 EACH PO
--- OUTSIDE RECORDS SUMMARY | 2018-06-27 16:34 | XMS ---
PreManage Notification: DANYEL NARANJO Security Child Day Care Provider Events No recent Security Events currently on file CRITERIA MET - Group Notification - [place] [facility] - Has Care Guidelines CARE PROVIDERS BRY HARDWICK Internal Medicine 09/29/2017-Current PHONE: Unknown Bry Hardwick Primary Care Current PHONE: [phone] [facility] has no Care Guidelines for this patient. Care History Medical/Surgical 08/25/2017 [facility] - PATIENT CALLED AND RESCHEDULED APT WITH DR HARDWICK IN TO APRIL 20, 2018 . - Patient is currently established with [facility]. If patient is seen in the ED during business hours. Please contact CHWs at [facility] at Ext [phone]. Care Recommendation: This patient has had 5 or more Emergency Department visits in the last 12 months.\T\nbsp; Patient requires education on the scope and purpose of the ED as an acute care provider not a Primary Care Provider and should not be utilized for chronic conditions.\T\nbsp; If patient returns to ED please contact [facility] at [phone]. These are guidelines and the provider should exercise clinical judgment when providing care. Christofer VISIT COUNT (12 MO.) 9 [facility] [place] TOTAL 9 NOTE: Visits indicate total known visits. 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 - Chronic obstructive pulmonary disease, unspecified - Allergy status to other drugs, medicaments and biological substances status 09/28/2017 14:56 [facility] [place] TYPE: Emergency COMPLAINT: - ABDOMINAL PAIN DIAGNOSES: - Allergy status to penicillin - Unspecified abdominal pain - Allergy status to other antibiotic agents status - Other [employer] (current) drug therapy - Urinary tract infection, site not specified - Allergy status to other drugs, medicaments and biological substances status 09/13/2017 18:12 [facility] [place] TYPE: Emergency COMPLAINT: - CHEST PAIN DIAGNOSES: - Personal history of nicotine dependence - Allergy status to other drugs, medicaments and biological substances status - Allergy status to other antibiotic agents status - Other chest pain - Chest pain, unspecified - Other [employer] (current) drug therapy - Allergy status to penicillin - Chronic obstructive pulmonary disease, unspecified 08/29/2017 19:39 [facility] [place] TYPE: Emergency COMPLAINT: - ABD PAIN DIAGNOSES: - Chronic obstructive pulmonary disease, unspecified - Other specified postprocedural states - OTHER SPECIFIED POSTPROCEDURAL STATES - Allergy status to other antibiotic agents status - Allergy status to penicillin - Elevated white blood cell count, unspecified - Personal history of nicotine dependence - Other [facility]current[facility] drug therapy - Allergy status to other drugs, medicaments and biological substances status - Unspecified abdominal pain 08/24/2017 19:17 [facility] [place] TYPE: Emergency COMPLAINT: - BLOATED, TIRED DIAGNOSES: - Personal history of nicotine dependence - Allergy status to other antibiotic agents status - Abdominal distension (gaseous) - Allergy status to other drugs, medicaments and biological substances status - retirement (current) use of aspirin - Other specified postprocedural states - Chronic obstructive pulmonary disease, unspecified - Allergy status to penicillin - Other [place] (current) drug therapy - OTHER SPECIFIED POSTPROCEDURAL STATES 08/16/2017 22:49 [facility] [place] TYPE: Emergency COMPLAINT: - CHEST PAIN,SOB 08/03/2017 19:31 [facility] [place] TYPE: Emergency COMPLAINT: - CHEST PAIN AND NEASEA DIAGNOSES: - Other [place] (current) drug therapy - retirement (current) use of aspirin - Allergy status to other antibiotic agents status - retirement (current) use of systemic steroids - Epigastric pain - Allergy status to penicillin - Chronic obstructive pulmonary disease, unspecified - Allergy status to other drugs, medicaments and biological substances status 07/12/2017 16:09 [facility] TYPE: Emergency COMPLAINT: - SOB DIAGNOSES: - Allergy status to other antibiotic agents status - Personal history of nicotine dependence - Shortness of breath - Allergy status to other drugs, medicaments and biological substances status - Allergy status to penicillin - Other [employer] (current) drug therapy - Chronic obstructive pulmonary disease with (acute) exacerbation INPATIENT VISIT TRACKING (12 MO.) 08/17/2017 21:53 [facility] TYPE: Surgical Services DIAGNOSES: - Acute respiratory failure with hypoxia - Anemia, unspecified - GI BLEED - Acute posthemorrhagic anemia - Other shock - Aneurysm of other specified arteries - Essential (primary) hypertension - Abdominal Hematoma - Chronic obstructive pulmonary disease, unspecified - Acute respiratory failure with hypercapnia 08/17/2017 00:45 [facility] [place] TYPE: Critical Care COMPLAINT: - COPD EXACERBATION DIAGNOSES: - Major depressive disorder, single episode, unspecified - Acidosis - Allergy status to other antibiotic agents status - Acute respiratory failure with hypoxia - Atherosclerotic heart disease of [place] coronary artery without angina pectoris - Urgency of urination - Allergy status to penicillin - Hemoperitoneum - Chronic obstructive pulmonary disease with (acute) exacerbation - Hyperlipidemia, unspecified - Hypotension, unspecified - Acute posthemorrhagic anemia - Other [place] (current) drug therapy - 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
[2018-06-27] MEDS ORDERED: ASPIRIN81 MG PO (16:43)
== END 2018-06-27 18:04 | disposition home or self-care (01) ==
LOC: ED 16:31
DX: S82.402A Unspecified fracture of shaft of left fibula, initial encounter for closed fracture (principal); J44.9 Chronic obstructive pulmonary disease, unspecified; Z87.891 Personal history of nicotine dependence; Z88.8 Allergy status to other drugs, medicaments and biological substances; Z88.0 Allergy status to penicillin; Z79.82 Long term (current) use of aspirin; Z79.899 Other long term (current) drug therapy; X50.9XXA Other and unspecified overexertion or strenuous movements or postures, initial encounter
CPT/HCPCS: 73610; 99283-25

== ENCOUNTER 2019-01-22 21:32 | Emergency (ER) | payer MEDICARE, MEDICAID ==
[~2019-01-22] VITALS: Ht 165.1 cm; Wt 75.3 kg
--- OUTSIDE RECORDS SUMMARY | ~2019-01-22 | XMS | Encounter Summary ---
Demographics + + + | Address | [address] | | | [place] [address] | + + + | Home Phone | | + + + | Preferred Language | Unknown | + + + | Marital Status | | + + + | Methodist Affiliation | 1028 | + + + | Race | Unknown | + + + | Ethnic Group | Unknown | + + + Author + + + | Author | [facility] | | | and [place] | + + + | Organization | [facility] | | | and [place] | + + + | Address | Unknown | + + + | Phone | Unavailable | + + + Support + + + + + | Name | Relationship | Address | Phone | + + + + + | Joseluis Desai | ECON | [place] | | | | | [phone] | | + + + + + | Mila Desai | ECON | Unknown | | + + + + + Care Team Providers + +------+ + | Care Acid Tank Cleaner Name | Role | Phone | + [...] | | | | | ([facility]) sob | | | | | | | labor relations or 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 negotiator | | | | | | | [...] | | | | | [address] | | | | | | [place] | | | | | | [address] | | | | | | [phone] | | | +--------+---------+ + + + [...] + +---------+ + | Alcohol Use | Drinks/Week | oz/Week | Comments | + + +---------+ + | Yes | | | 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 | + + documented as of this encounter Last Filed Vital Signs + + + + + | Vital Sign | Reading | Time Taken | Comments | + + + + + | Blood Pressure | 122/62 | 05/11/2017 3:21 PM | | | | | PST | | + + + + + | Pulse | 69 | 05/11/2017 3:21 PM | | | | | PST | | + + + + + | Temperature | 36.6 C (97.9 F) | 05/11/2017 3:21 PM | | | | | PST | | + + + + + | Respiratory Rate | 18 | 05/11/2017 3:21 PM | | | | | PST | | + + + + + | Oxygen Saturation | 97% | 05/11/2017 3:21 PM | | | | | PST | | + + + + + | Inhaled Oxygen | - | - | | | Concentration | | | | + + + + + | Weight | 61.4 kg (135 lb 5.8 | 05/11/2017 6:00 AM | | | | oz) | PST | | + + + + + | Height | 162.6 cm (5' 4") | 05/08/2017 12:40 AM | | | | | PST | | + + + + + | Body Mass Index | 23.23 | 05/08/2017 12:40 AM | | | | | PST | | + + + + + documented in this encounter Discharge Summaries Narcisa Sanchez MD - 05/11/2017 7:41 AM PSTFormatting of this note might be differ ent from the original. MERGED WITH [facility] [place] [facility]PITALIST DISCHARGE SUMMARY Pt. Name/Age/: Amy Francois Jared 61 y.o. 1955 Date of Admission: 05/08/2017 [...] was given by daughter, who reported that joni collier has been having some chest and [...] exam and laboratory data are benign. Sh e is recommended to continue follow-up with her [...] week. Specialty: Internal Medicine Contact information: [address] [facility] [address] [place] [address] Demarcus Jurado MD In 3 weeks. Specialty: Gastroenterology Contact information: [address] [place] [address] Condition: Patient being discharged with condition improved Diet: low salt low fat Greater than 30 minutes were spent on discharge and coordination of post-hospital care. Electronically signed by: Narcisa Boone MD, 05/11/2017 7:41 [facility] Portions of this chart may have been created with [employer] voice recognition software. Occasi onal wrong-word or sound-alike substitutions may have occurred due to the inherent lobo itations of voice recognition software. Please read the chart carefully and recognize, using context, where these substitutions have occurred documented in this encounter Discharge Instructions Instructions Narcisa Sanchez MD - 05/11/2017 COPD [...] worse Dizziness or weakness Date Last Reviewed: 11/13/201519992289-8923 [employer] [address] [place] [address], [place] [address]. All righ ts reserved. This information is not intended as a substitute for professional medical care. Always follow your healthcare professional's instructions. AttachmentsThe following attachments cannot be sent through Care Everywhere.Kicking the Smo miguel Habit (Malay)Coronary Artery Disease (CAD), Understanding (Malay)documented in this encounter Medications at Time of Discharge + + + +---------+ + + | Medication | Sig | Dispensed | Refills | Start | End Date | | | | | | Date | | + + + +---------+ + + | albuterol | Inhale 2 puffs into | | 0 | | | | (VENTOLIN HFA) 90 | the lungs every 4 | | | | | | mcg/puff inhaler | hours as needed. | | | | | + + + +---------+ + + | atorvaSTATin | Take 40 mg by mouth | | 0 | | | | (LIPITOR) 40 mg | nightly. | | | | | | tablet | | | | | | + + + +---------+ + + | buPROPion | Take 150 mg by mouth | | 0 | | | | (WELLBUTRIN SR) 150 | 2 times daily. | | | | | | mg 12 hr tablet | | | | | | + + + +---------+ + + | | Place 1 drop into | | 0 | | | | carboxymethylcellulo | both eyes Daily. | | | | | | se (THERATEARS) | | | | | | | 0.25% ophthalmic | | | | | | | [...] | Place 0.4 mg under | | 0 | | | | (NITROSTAT) 0.4 mg | the tongue every 5 | | | | | | SL tablet | minutes as needed | | | | | | | for Chest pain. | | | | | + + + +---------+ + + | oxybutynin | Take 5 mg by mouth 2 | | 0 | | | | (DITROPAN) 5 mg [...] Take 80 mg by mouth | | 0 | | | | (INDERAL) 80 mg | Daily. For tremors | | | | | | tablet | | | | | | + + + +---------+ + + | | Take 3 mLs by | 360 mL | 0 | 05/11/19 | | | albuterol-ipratropiu | nebulization every 6 | | | 18 | 8 | | m (DUONEB) 2.5-0.5 | hours. [...] Daily. | tablet | | 18 | 8 | + + + +---------+ + + | Multiple | Take 1 tablet by | | 0 | | | | Vitamins-Minerals | mouth Daily. | | | | 9 | | (SENIOR MULTIVITAMIN | | | [...] 3 | tablet | | 18 | 8 | | tablet | days, then Take [...] | Inhale 1 puff into | | 0 | | | | (INCRUSE ELLIPTA) | the lungs Daily. | | | | 8 | | 62.5 mcg/puff | | | | | | | inhaler | | | | | | + + + +---------+ + + documented as of this encounter Progress Notes Dewey Harris PharmD - 05/11/2017 12:06 PM Amparo Alessandro Coleman was admitted for COPD exa cerbation and discharged home today (05/11/2017) Taught AVS [...] healthcare providers and keep list current. Dewey Harris PharmD 05/11/2017 12:05 Dominique Carrasco RRT - 05/11/2017 10:38 AM PSTFormatting of this note might be different from the lois hernández. Amy walked with me around the the nurse station [place] without any supplemental oxygen, h er SpO2 values remained > 93%, H/R 88, Respirations were 18 to 20. 05/11/17 1037 Oxygen Therapy O2 Device room air Home O2 eval performed? yes Resting on RA (%) 95 Exercising on RA (%) 97 Vitals Pulse 89 Resp 20 SpO2 98 % Carmelita Carrasco RRT - 05/11/2017 10:31 AM Amparo walked with me around the nurses station circl e without any supplemental oxygen on, her SpO2 value remained > 93%. No SOB observed pt mercy ed when asked if she was SOB. H/R remained in low 80's, respirations 18 to 20. Electronicall y signed by Carmelita Fulton, DIRECTOR OF PERIOPERATIVE SERVICES at 05/11/2017 10:37 AM Narcisa Bojorquez MD - 05/10/2017 7:23 AM PST [facility] [place] [place] H[facility]PITAL[facility] PROGRESS NOTE Patient: Amy Coleman : 1955: Age: 61 y.o. MedRec: [id number] Admission date: 05/08/2017 Hospital day # : [...] mg 80 mg Per OG Tube Nightly Oralndo Wall MD 80 m g at 05/09/17 [...] leads V4-6 Confirmed by GEORGES HU, LUCIO ([id number]) on 05/10/2017 7:08:38 AM POC Glucose Collection [...] Procedure Component Value Units Date/Time Culture, Blood [[id number]] (Normal) Collected: 05/08/17 0145 Order Status: Completed Lab Status: Preliminary result Updated: 05/08/17 140 Specimen: Blood from Line Culture No growth: Monitored continually by instrument for 5 days Culture, Blood [[id number]] (Normal) Collected: 05/08/17 0119 Order Status: Completed Lab Status: Preliminary result Updated: 05/08/171400 Specimen: Blood from Peripheral Blood Culture No growth: Monitored continually by instrument for 5 days Culture, MRSA [[id number]] Collected: 05/08/17 0032 Order Status: Completed Lab [...] 24-48 hrs Narcisa Boone MD 05/10/2017 7:23 [facility] Portions of this chart may have been created with [employer] voice recognition software. Occasi onal wrong-word or sound-alike substitutions may have occurred due to the inherent lobo itations of voice recognition software. Please read the chart carefully and recognize, using context, where these substitutions have occurred Johnny Gallegos MD - 05/09/2017 2:41 PM PST PATIENT NAME: Amy Coleman : 1955: AGE: [...] ECGs available Confirmed by GEORGES HU, LUCIO ([id number]) on 05/08/2017 8:24:47 AM LVEF-TTE TRANSTHORACIC ECHO [...] lead V2 Confirmed by LUCIO SU MD ([id number]) on 05/09/2017 7:21:00 AM MG 05/08/2017 2.3 [...] patient. Johnny Johnson MD, 05/09/2017 14:41 Narcisa Bojorquez MD - 05/09/2017 7:18 AM PST [place] HOSPITALIST PROGRESS NOTE Patient: Amy Coleman : 1955: Age: 61 y.o. MedRec: [id number] Admission date: 05/08/2017 Hospital day # : [...] Wall MD 10 mg at 05/08/17 2057 propofol infusion (DIPRIVAN) 10 mg/mL infusion 5-100 mcg/kg/min Intravenous Titrated S tina Wall MD Stopped at 05/08/17 1415 propranolol (INDERAL) tablet 80 mg 80 mg Oral Daily Narcisa Boone MD 80 mg at 05/08/17 1616 sodium chloride 0.9% (NS) infusion Intravenous Smocking Machine Operator Johnny Luther MD sodium chloride 0.9% [...] Procedure Component Value Units Date/Time Culture, Blood [[id number]] (Normal) Collected: 05/08/17 0145 Order Status: Completed Lab Status: Preliminary result Updated: 05/08/171400 Specimen: Blood from Line Culture No growth: Monitored continually by instrument for 5 days Culture, Blood [[id number]] (Normal) Collected: 05/08/17 0119 Order Status: Completed Lab Status: Preliminary result Updated: 05/08/171400 Specimen: Blood from Peripheral Blood Culture No growth: Monitored continually by instrument for 5 days Culture, MRSA [[id number]] Collected: 05/08/17 0032 Order Status: Sent Lab Status: In process Updated: 05/08/17 0034 Specimen: Respiratory from Nares Radiology results Xr [...] reports feeling malaise with shortness of breath (benefit director marla - not worse than baseline), headache [...] possible PCI Narcisa Boone MD 05/09/2017 7:18 [facility] Portions of this chart may have been created with [employer] voice recognition software. Occasi onal wrong-word or sound-alike substitutions may have occurred due to the inherent lobo itations of voice recognition software. Please read the chart carefully and recognize, using context, where these substitutions have occurred Светлана Camara, PharmD - 05/08/2017 3:37 PM PSTFormatting of this note might be different from the origi nal. PHARMACY SERVICES: ADMISSION MEDICATION REVIEW Amy Coleman [...] bottles X Pharmacy list names: [facility] [place] X Outside Information Vaccines up to date? [...] per week Marijuana smoke Daily Best possible [facility]AL [facility] medication list after pharmacy review: PT REPORTED [...] performed and electronically signed by Yolanda Grullon, Heavy Truck Mechanic 15:16 Reviewed by Светлана Mendoza, PharmD 05/08/2017 15:28 Lavinia Peacock Chaplain - 05/08/2017 8:26 AM PST Spiritual Care Amy Coleman is a 61 y.o. female who is admitted for Respiratory failure ([facility]) [J96.90]. Spiritual Assessment: Patient was intubated at the time of visit. Meqdqdcr-na-wyq, Raciel, was present and she reported that she is very close to the patient. She and the patient has discussed EOL toget her in the Jcnyrsvo-lt-lau is hoping for recovery for patient. Spiritual [...] can't relax until she knows h er midvnv-ur-fxl will be okay. Will see the patient as requested. If there are any other spiritual care issues that arise, please contact senior it business analyst. Narcisa Bojorquez MD - 05/08/2017 7:21 AM PSTFormatting of this note might be different from the lois edgar. [facility] [place] H[facility]PITAL[facility] PROGRESS NOTE Patient: Amy Coleman : 1955: Age: 61 y.o. MedRec: [id number] Admission date: 05/08/2017 Hospital day # : [...] S tina Wall MD 12.1 mL/hr at 05/08/17 0045 30 mcg/kg/min at 05/08/1744 sodium chloride 0.9% (NS) infusion Intravenous Continuous Orlando Wall MD 150 mL/hr at 05/08/1702 150 mL at 05/08/17 06 Current Infusions: fentaNYL 75 mcg/hr (05/08/17 0707) heparin infusion 800 Units/hr (05/08/17 0338) propofol infusion 30 mcg/kg/min (05/08/17 0045) sodium chloride 0.9% 150 mL (05/08/17 0602) Objective Data Point of care glucose No [...] Procedure Component Value Units Date/Time Culture, Blood [[id number]] Collected: 05/08/17 0145 Order Status: Sent Lab Status: In process Updated: 05/08/17 015 Specimen: Blood from Line Culture, Blood [[id number]] Collected: 05/08/17 0119 Order Status: Sent Lab Status: In process Updated: 05/08/17 0153 Specimen: Blood from Peripheral Blood Culture, MRSA [[id number]] Collected: 05/08/1731 Order Status: Sent Lab Status: [...] arrest, never lost pulse. Transferred from [facility]. Family member at bedside reported patient [...] listed conditions Narcisa Boone MD 05/08/2017 7:21 [facility] Portions of this chart may have been created with [employer] voice recognition software. Occasi onal wrong-word or sound-alike substitutions may have occurred due to the inherent lobo itations of voice recognition software. Please read the chart carefully and recognize, using context, where these substitutions have occurred documented in this encounter Plan of Treatment +--------+---------+ + + + | Date | Type | Specialty | Care Team | Description | +--------+---------+ + + + | 06/26/ | Office | Cardiology | Aaron Zimmerman, | | | 2019 | Visit | | MD Katelyn MAGALLON | | | | | | [place] | | | | | | [id number] | | | | | | | | +--------+---------+ + + + + +------+--------+ + + | Name | Type | Priori | Associated Diagnoses | Order Schedule | | | | ty | | | + +------+--------+ + + | DME: Nebulizer | DME | Routin | Chronic | DME 1 Time for 1 | | | | e | obstructive | Occurrences starting | | | | | pulmonary disease, | 05/11/2017 until | | | | | unspecified COPD | 05/11/2017 | | | | | type (HCC) Acute on | | | | | | chronic respiratory | | | | | | failure with | | | | | | hypoxia and | | | | | | hypercapnia (HCC) | | + +------+--------+ + + + + +--------+ + + | Name | Type | Priori | Associated Diagnoses | Order Schedule | | | | ty | | | + + +--------+ + + | Referral to Home | Outpatient | Routin | Chronic | Ordered: 05/11/2017 | | Health - OUTPATIENT | Referral | e | obstructive | | | | | | pulmonary disease, | | | | | | unspecified COPD | | | | | | type (HCC) Acute on | | | | | | chronic respiratory | | | | | | failure with | | | | | | hypoxia and | | | | | | hypercapnia (HCC) | | + + +--------+ + + documented as of this encounter Procedures + +--------+ + + + | Procedure Name | Priori | Date/Time | Associated Diagnosis | Comments | | | ty | | | | + +--------+ + + + | POC GLUCOSE | Routin | 05/11/2017 | | Results for this | | | e | 11:43 AM | | procedure are in the | | | | PST | | results section. | + +--------+ + + + | PERFORM HOME O2 | Routin | 05/11/2017 | | | | EVALUATION | e | 7:22 AM | | | | | | PST | | | + +--------+ + + + | CBC WITH | Routin | 05/11/2017 | | Results for this | | DIFFERENTIAL | e | 4:55 AM | | procedure are in the | | | | PST | | results section. | + +--------+ + + + | MAGNESIUM | Routin | 05/11/2017 | | Results for this | | | e | 4:55 AM | | procedure are in the | | | | PST | | results section. | + +--------+ + + + | BASIC METABOLIC | Routin | 05/11/2017 | | Results for this | | PANEL | e | 4:55 AM | | procedure are in the | | | | PST | | results section. | + +--------+ + + + | POC GLUCOSE | Routin | 05/10/2017 | | Results for this | | | e | 8:57 PM | | procedure are in the | | | | PST | | results section. | + +--------+ + + + | POC GLUCOSE | Routin | 05/10/2017 | | Results for this | | | e | 4:54 PM | | procedure are in the | | | | PST | | results section. | + +--------+ + + + | POC GLUCOSE | Routin | 05/10/2017 | | Results for this | | | e | 11:30 AM | | procedure are in the | | | | PST | | results section. | + +--------+ + + + | XR CHEST AP PORTABLE | Routin | 05/10/2017 | | Results for this | | | e | 6:30 AM | | procedure are in the | | | | PST | | results section. | + +--------+ + + + | CBC NO DIFFERENTIAL | Routin | 05/10/2017 | | Results for this | | | e | 3:35 AM | | procedure are in the | | | | PST | | results section. | + +--------+ + + + | MAGNESIUM | Routin | 05/10/2017 | | Results for this | | | e | 3:35 AM | | procedure are in the | | | | PST | | results section. | + +--------+ + + + | BASIC METABOLIC | Routin | 05/10/2017 | | Results for this | | PANEL | e | 3:35 AM | | procedure are in the | | | | PST | | results section. | + +--------+ + + + | POC GLUCOSE | Routin | 05/09/2017 | | Results for this | | | e | 9:05 PM | | procedure are in the | | | | PST | | results section. | + +--------+ + + + | POC GLUCOSE | Routin | 05/09/2017 | | Results for this | | | e | 4:44 PM | | procedure are in the | | | | PST | | results section. | + +--------+ + + + | CV LHC | Routin | 05/09/2017 | | Results for this | | | e | 2:02 PM | | procedure are in the | | | | PST | | results section. | + +--------+ + + + | POC GLUCOSE | Routin | 05/09/2017 | | Results for this | | | e | 11:41 AM | | procedure are in the | | | | PST | | results section. | + +--------+ + + + | ECG 12 LEAD | STAT | 05/09/2017 | | Results for this | | | | 11:33 AM | | procedure are in the | | | | PST | | results section. | + +--------+ + + + | PTT | Routin | 05/09/2017 | | Results for this | | | e | 9:16 AM | | procedure are in the | | | | PST | | results section. | + +--------+ + + + | POC GLUCOSE | Routin | 05/09/2017 | | Results for this | | | e | 7:49 AM | | procedure are in the | | | | PST | | results section. | + +--------+ + + + | PTT | Routin | 05/09/2017 | | Results for this | | | e | 3:07 AM | | procedure are in the | | | | PST | | results section. | + +--------+ + + + | PROTIME INR | Routin | 05/09/2017 | | Results for this | | | e | 3:07 AM | | procedure are in the | | | | PST | | results section. | + +--------+ + + + | CBC WITH | Routin | 05/09/2017 | | Results for this | | DIFFERENTIAL | e | 3:07 AM | | procedure are in the | | | | PST | | results section. | + +--------+ + + + | MAGNESIUM | Routin | 05/09/2017 | | Results for this | | | e | 3:07 AM | | procedure are in the | | | | PST | | results section. | + +--------+ + + + | COMPREHENSIVE | Routin | 05/09/2017 | | Results for this | | METABOLIC PANEL | e | 3:07 AM | | procedure are in the | | | | PST | | results section. | + +--------+ + + + | TROPONIN I | Routin | 05/09/2017 | | Results for this | | | e | 1:12 AM | | procedure are in the | | | | PST | | results section. | + +--------+ + + + | POC GLUCOSE | Routin | 05/08/2017 | | Results for this | | | e | 9:38 PM | | procedure are in the | | | | PST | | results section. | + +--------+ + + + | PTT | Routin | 05/08/2017 | | Results for this | | | e | 8:43 PM | | procedure are in the | | | | PST | | results section. | + +--------+ + + + | TROPONIN I | Routin | 05/08/2017 | | Results for this | | | e | 6:55 PM | | procedure are in the | | | | PST | | results section. | + +--------+ + + + | RESPIRATORY THERAPY | Routin | 05/08/2017 | | | | COMMUNICATION | e | 5:25 PM | | | | | | PST | | | + +--------+ + + + | POC GLUCOSE | Routin | 05/08/2017 | | Results for this | | | e | 4:28 PM | | procedure are in the | | | | PST | | results section. | + +--------+ + + + | RT EXTUBATION | Routin | 05/08/2017 | | | | | e | 4:05 PM | | | | | | PST | | | + +--------+ + + + | PTT | STAT | 05/08/2017 | | Results for this | | | | 2:06 PM | | procedure are in the | | | | PST | | results section. | + +--------+ + + + | POC BLOOD GASES | Routin | 05/08/2017 | | Results for this | | | e | 1:30 PM | | procedure are in the | | | | PST | | results section. | + +--------+ + + + | ECG 12 LEAD | Routin | 05/08/2017 | | Results for this | | | e | 1:08 PM | | procedure are in the | | | | PST | | results section. | + +--------+ + + + | TROPONIN I | Routin | 05/08/2017 | | Results for this | | | e | 12:50 PM | | procedure are in the | | | | PST | | results section. | + +--------+ + + + | HEMOGLOBIN AND | Routin | 05/08/2017 | | Results for this | | HEMATOCRIT | e | 12:50 PM | | procedure are in the | | | | PST | | results section. | + +--------+ + + + | PTT | Timed | 05/08/2017 | | Results for this | | | | 12:50 PM | | procedure are in the | | | | PST | | results section. | + +--------+ + + + | POTASSIUM | Routin | 05/08/2017 | | Results for this | | | e | 12:50 PM | | procedure are in the | | | | PST | | results section. | + +--------+ + + + | MAGNESIUM | Routin | 05/08/2017 | | Results for this | | | e | 12:50 PM | | procedure are in the | | | | PST | | results section. | + +--------+ + + + | POC GLUCOSE | Routin | 05/08/2017 | | Results for this | | | e | 11:41 AM | | procedure are in the | | | | PST | | results section. | + +--------+ + + + | PTT | Routin | 05/08/2017 | | Results for this | | | e | 10:41 AM | | procedure are in the | | | | PST | | results section. | + +--------+ + + + | PROTIME INR | Routin | 05/08/2017 | | Results for this | | | e | 10:41 AM | | procedure are in the | | | | PST | | results section. | + +--------+ + + + | ECHO COMPLETE | Routin | 05/08/2017 | | Results for this | | | e | 9:59 AM | | procedure are in the | | | | PST | | results section. | + +--------+ + + + | POC GLUCOSE | Routin | 05/08/2017 | | Results for this | | | e | 8:42 AM | | procedure are in the | | | | PST | | results section. | + +--------+ + + + | TROPONIN I | Routin | 05/08/2017 | | Results for this | | | e | 6:49 AM | | procedure are in the | | | | PST | | results section. | + +--------+ + + + | CBC NO DIFFERENTIAL | Routin | 05/08/2017 | | Results for this | | | e | 6:48 AM | | procedure are in the | | | | PST | | results section. | + +--------+ + + + | LACTIC ACID | Routin | 05/08/2017 | | Results for this | | | e | 6:48 AM | | procedure are in the | | | | PST | | results section. | + +--------+ + + + | BASIC METABOLIC | Routin | 05/08/2017 | | Results for this | | PANEL | e | 6:48 AM | | procedure are in the | | | | PST | | results section. | + +--------+ + + + | PTT | STAT | 05/08/2017 | | Results for this | | | | 3:15 AM | | procedure are in the | | | | PST | | results section. | + +--------+ + + + | ECG 12 LEAD | [facility] | 05/08/2017 | | Results for this | | | | 2:50 AM | | procedure are in the | | | | PST | | results section. | + +--------+ + + + | CULTURE, BLOOD | STAT | 05/08/2017 | | Results for this | | | | 1:45 AM | | procedure are in the | | | | PST | | results section. | + +--------+ + + + | LACTIC ACID | Routin | 05/08/2017 | | Results for this | | | e | 1:45 AM | | procedure are in the | | | | PST | | results section. | + +--------+ + + + | TROPONIN I | Routin | 05/08/2017 | | Results for this | | | e | 1:30 AM | | procedure are in the | | | | PST | | results section. | + +--------+ + + + | MAGNESIUM | [place] | 05/08/2017 | | Results for this | | | | 1:30 AM | | procedure are in the | | | | PST | | results section. | + +--------+ + + + | CULTURE, BLOOD | STAT | 05/08/2017 | | Results for this | | | | 1:19 AM | | procedure are in the | | | | PST | | results section. | + +--------+ + + + | POC BLOOD GASES | Routin | 05/08/2017 | | Results for this | | | e | 1:13 AM | | procedure are in the | | | | PST | | results section. | + +--------+ + + + | XR CHEST AP PORTABLE | STAT | 05/08/2017 | | Results for this | | | | 12:41 AM | | procedure are in the | | | | PST | | results section. | + +--------+ + + + | CULTURE, MRSA | Routin | 05/08/2017 | | Results for this | | | e | 12:32 AM | | procedure are in the | | | | PST | | results section. | + +--------+ + + + | IMAGING REPORT - | | 05/07/2017 | | Results for this | | EXTERNAL SCAN | | 12:00 AM | | procedure are in the | | | | PST | | results section. | + +--------+ + + + | IMAGING REPORT - | | 05/07/2017 | | Results for this | | EXTERNAL SCAN | | 12:00 AM | | procedure are in the | | | | PST | | results section. | + +--------+ + + + | IMAGING REPORT - | | 05/07/2017 | | Results for this | | EXTERNAL SCAN | | 12:00 AM | | procedure are in the | | | | PST | | results section. | + +--------+ + + + | LABS - EXTERNAL SCAN | | 05/07/2017 | | Results for this | | | | 12:00 AM | | procedure are in the | | | | PST | | results section. | + +--------+ + + + | ECG - EXTERNAL SCAN | | 05/07/2017 | | Results for this | | | | 12:00 AM | | procedure are in the | | | | PST | | results section. | + +--------+ + + + documented in this encounter Results POC Glucose (05/11/2017 11:43 AM PST) + +-------+ + + + | Component | Value | Ref Range | Performed | Pathologist | | | | | At | Signature | + +-------+ + + + | Glucose, | 107 | 70 - 109 mg/dL | [facility] | | | POC | | | [facility] | [facility] | | | [facility] - | | | | | | LABORATORY | | + +-------+ + + + + + | Specimen | + + | Blood | + + + + + + + | Performing | Address | City/State/Zipcode | Phone Number | | Organization | | | | + + + + + | [facility] | [address] | [place] | [phone] | | [facility] | | [address] | | | - LABORATORY | | | | + + + + + Basic Metabolic Panel (05/11/2017 4:55 AM PST) + + + + + + | Component | Value | Ref Range | Performed | Pathologist | | | | | At | Signature | + + + + + + | Na | 139 | 136 - 149 | [facility] | | | | | mmol/L | [facility] | | | | | | [facility] | | | | | | [facility] - | | | | | | LABORATORY | | + + + + + + | K | 3.4 (L) | 3.5 - 5.1 | [facility] | | | | | mmol/L | [facility] | | | | | | [facility] | | | | | | [facility] - | | | | | | LABORATORY | | + + + + + + | Cl | 105 | 98 - 109 mmol/L | [facility] | | | | | | [facility] | | | | | | [facility] | | | | | | [facility] - | | | | | | LABORATORY | | + + + + + + | CO2 | 30 | 24 - 31 mmol/L | [facility] | | | | | | [facility] | | | | | | [facility] | | | | | | [facility] - | | | | | | LABORATORY | | + + + + + + | Anion Gap | 4 | 3 - 16 mmol/L | [facility] | | | | | | [facility] | | | | | | [facility] | | | | | | [facility] - | | | | | | LABORATORY | | + + + + + + | Glucose | 87 | 70 - 109 mg/dL | [facility] | | | | | | [facility] | | | | | | [facility] | | | | | | [facility] - | | | | | | LABORATORY | | + + + + + + | BUN | 5 (L) | 7 - 18 mg/dL | [facility] | | | | | | [facility] | | | | | | [facility] | | | | | | [facility] - | | | | | | LABORATORY | | + + + + + + | Creatinine | 0.67 | 0.60 - 1.30 | [facility] | | | | | mg/dL | [facility] | [facility] | [facility] | | | | | | [facility] - | | | | | | LABORATORY | | + + + + + + | eGFR if not | >60Comment: GLOMERULAR | >=60 | [facility] | | | | FILTRATION | mL/min/1.73m2 | [facility] | | | [facility] | RATE,ESTIMATED | | MEDICAL | | | | mL/min/1.78r9Ylac than | | CENTER - | | | | 60 Chronic kidney | | LABORATORY | | | | disease,if found over a | | | | | | 3-month period.Less than | | | | | | 15 Kidney failureFor | | | | | | | | | | | | Americans,multiply the | | | | | | calculated GFR by 1.21. | | | | | | | | | | + + + + + + | Calcium | 8.4 | 8.3 - 10.5 | [facility] | | | | | mg/dL | [facility] | | | | | | [facility] | | | | | | [facility] - | | | | | | LABORATORY | | + + + + + + | BUN/Creatin | 7.5 | | [facility] | | | ine Ratio | | | [facility] | | | | | | [facility] | | | | | | [facility] - | | | | | | LABORATORY | | + + + + + + + + | Specimen | + + | Blood | + + + + + + + | Performing | Address | City/State/Zipcode | Phone Number | | Organization | | | | + + + + + | [facility] | [address] | [place] | [phone] | | [facility] | | [address] | | | - LABORATORY | | | | + + + + + Magnesium (05/11/2017 4:55 AM PST) + +-------+ + + + | Component | Value | Ref Range | Performed | Pathologist | | | | | At | Signature | + +-------+ + + + | Magnesium | 1.9 | 1.8 - 2.5 mg/dL | [facility] | | | | | | [facility] | | | | | | [facility] | | | | | | [facility] - | | | | | | LABORATORY | | + +-------+ + + + + + | Specimen | + + | Blood | + + + + + + + | Performing | Address | City/State/Zipcode | Phone Number | | Organization | | | | + + + + + | [facility] | [address] | [place] | [phone] | | [facility] | | [address] | | | - LABORATORY | | | | + + + + + CBC with Differential (05/11/2017 4:55 AM PST) + + + + + + | Component | Value | Ref Range | Performed | Pathologist | | | | | At | Signature | + + + + + + | WBC | 11.6 (H) | 4.0 - 11.0 K/uL | [facility] | | | | | | [facility] | | | | | | [facility] | | | | | | [facility] - | | | | | | LABORATORY | | + + + + + + | RBC | 4.10 | 3.70 - 5.20 | [facility] | | | | | M/uL | [facility] | | | | | | [facility] | | | | | | [facility] - | | | | | | LABORATORY | | + + + + + + | Hemoglobin | 11.6 | 11.5 - 16.0 | [facility] | | | | | g/dL | [facility] | | | | | | [facility] | | | | | | [facility] - | | | | | | LABORATORY | | + + + + + + | Hematocrit | 34.6 | 34.0 - 47.0 % | [facility] | | | | | | [facility] | | | | | [facility] | | | | | | C[facility] - | | | | | | LABORATORY | | + + + + + + | MCV | 84.5 | 83.0 - 101.0 fL | [facility] | | | | | | [facility] | | | | | | [facility] | | | | | | [facility] - | | | | | | LABORATORY | | + + + + + + | MCH | 28.3 | 28.0 - 35.0 pg | [facility] | | | | | | [facility] | | | | | | [facility] | | | | | | C[facility] - | | | | | | LABORATORY | | + + + + + + | MCHC | 33.5 | 32.0 - 36.0 | [facility] | | | | | g/dL | [facility] | | | | | | [facility] | | | | | | C[facility] - | | | | | | LABORATORY | | + + + + + + | RDW-CV | 13.1 | <15.0 % | [facility] | | | | | | [facility] | | | | | | [facility] | | | | | | [facility] - | | | | | | LABORATORY | | + + + + + + | Platelet | 224 | 140 - 440 K/uL | [facility] | | | Count | | | [facility] | | | | | | [facility] | | | | | | CENTER - | | | | | | LABORATORY | | + + + + + + | MPV | 8.8 | fL | [facility] | | | | | | [facility] | | | | | | [facility] | | | | | | [facility] - | | | | | | LABORATORY | | + + + + + + | % | 66.5 | 45.0 - 82.0 % | [facility] | | | Neutrophils | | | [facility] | | | | | | [facility] | | | | | | CENTER - | | | | | | LABORATORY | | + + + + + + | % | 23.4 | 20.0 - 45.0 % | [facility] | | | Lymphocytes | | | [facility] | | | | | | [facility] | | | | | | CENTER - | | | | | | LABORATORY | | + + + + + + | % Monocytes | 9.6 | 4.0 - 12.0 % | [facility] | | | | | | [facility] | | | | | | [facility] | | | | | | CENTER - | | | | | | LABORATORY | | + + + + + + | % | 0.2 | 0.0 - 5.0 % | [facility] | | | Eosinophils | | | [facility] | | | | | | [facility] | | | | | | CENTER - | | | | | | LABORATORY | | + + + + + + | % Basophils | 0.3 | 0.0 - 1.0 % | [facility] | | | | | | [facility] | | | | | | [facility] | | | | | | [facility] - | | | | | | LABORATORY | | + + + + + + | Absolute | 7.70 | 1.80 - 8.50 | [facility] | | | Neutrophils | | K/uL | [facility] | | | | | | [facility] | | | | | | [facility] - | | | | | | LABORATORY | | + + + + + + | Absolute | 2.70 | 0.60 - 3.20 | [facility] | | | Lymphocytes | | K/uL | [facility] | | | | | | [facility] | | | | | | [facility] - | | | | | | LABORATORY | | + + + + + + | Absolute | 1.10 (H) | 0.00 - 1.00 | [facility] | | | Monocytes | | K/uL | [facility] | | | | | | [facility] | | | | | | [facility] - | | | | | | LABORATORY | | + + + + + + | Absolute | 0.00 | 0.00 - 0.40 | [facility] | | | Eosinophils | | K/uL | [facility] | | | | | | [facility] | | | | | | C[facility] - | | | | | | LABORATORY | | + + + + + + | Absolute | 0.00 | 0.00 - 0.10 | [facility] | | | Basophils | | K/uL | [facility] | | | | | | [facility] | | | | | | [facility] - | | | | | | LABORATORY | | + + + + + + + + | Specimen | + + | Blood | + + + + + + + | Performing | Address | City/State/Zipcode | Phone Number | | Organization | | | | + + + + + | [facility] | [address] | [place] | [phone] | | [facility] | | [address] | | | - LABORATORY | | | | + + + + + POC Glucose (05/10/2017 8:57 PM PST) + +---------+ + + + | Component | Value | Ref Range | Performed | Pathologist | | | | | At | Signature | + +---------+ + + + | Glucose, | 130 (H) | 70 - 109 mg/dL | [facility] | | | POC | | | [facility] | | | [facility] | | [facility] | | | | | | [facility] - | | | | | | LABORATORY | | + +---------+ + + + + + | Specimen | + + | Blood | + + + + + + + | Performing | Address | City/State/Zipcode | Phone Number | | Organization | | | | + + + + + | [facility] | [address] | [place] | [phone] | | [facility] | | [address] | | | - LABORATORY | | | | + + + + + POC Glucose (05/10/2017 4:54 PM PST) + +---------+ + + + | Component | Value | Ref Range | Performed | Pathologist | | | | | At | Signature | + +---------+ + + + | Glucose, | 113 (H) | 70 - 109 mg/dL | [facility] | | | POC | | | [facility] | [facility] | [facility] | [facility] | | | | | | [facility] - | | | | | | LABORATORY | | + +---------+ + + + + + | Specimen | + + | Blood | + + + + + + + | Performing | Address | City/State/Zipcode | Phone Number | | Organization | | | | + + + + + | [facility] | [address] | [place], [place] | [phone] | | [facility] | | [address] | | | - LABORATORY | | | | + + + + + POC Glucose (05/10/2017 11:30 AM PST) + +-------+ + + + | Component | Value | Ref Range | Performed | Pathologist | | | | | At | Signature | + +-------+ + + + | Glucose, | 93 | 70 - 109 mg/dL | [facility] | | | POC | | | [facility] | | | | | | [facility] | | | | | | [facility] - | | | | | | LABORATORY | | + +-------+ + + + + + | Specimen | + + | Blood | + + + + + + + | Performing | Address | City/State/Zipcode | Phone Number | | Organization | | | | + + + + + | [facility] | [address] | [place], [place] | [phone] | | [facility] | | [address] | | | - LABORATORY | | | | + + + + + XR Chest AP Portable (05/10/2017 6:30 AM PST) + + | Specimen | + + | | + + + + + | Narrative | Performed At | + + + | XR CHEST AP PORTABLE 05/10/2017 6:28 AM HISTORY: leukocytosis. | [facility] | | COMPARISON: 05/08/2017 Findings: Slight thickening/prominence of | | | the vascular markings is unchanged. Aortic calcifications are seen. | | | Heart is within the upper limits of normal for size. No evidence of | | | pneumothorax or pleural effusion. Bones and soft tissues are | | | unchanged. IMPRESSION - Interval extubation and removal of the | | | NG tube. Similar subtle prominence of the interstitium. | | | Dictated and Signed by: Haider Hernandez MD Electronically signed: | | | 05/10/2017 9:04 AM | | + + + + + | Procedure Note | + + | Avelino, Rad Results In - 05/10/2017 9:07 AM PST XR CHEST AP PORTABLE 05/10/2017 6:28 [...] 05/10/2017 9:04 AM | + + + +---------+ + + | Performing | Address | City/State/Zipcode | Phone Number | | Organization | | | | + +---------+ + + | [facility] | | | | + +---------+ + + CBC no Differential (05/10/2017 3:35 AM PST) + + + + + + | Component | Value | Ref Range | Performed | Pathologist | | | | | At | Signature | + + + + + + | WBC | 17.9 (H) | 4.0 - 11.0 K/uL | [facility] | | | | | | [facility] | | | | | | [facility] | | | | | | [facility] - | | | | | | LABORATORY | | + + + + + + | RBC | 4.21 | 3.70 - 5.20 | [facility] | | | | | M/uL | [facility] | | | | | | [facility] | | | | | | [facility] - | | | | | | LABORATORY | | + + + + + + | Hemoglobin | 11.7 | 11.5 - 16.0 | [facility] | | | | | g/dL | [facility] | | | | | | [facility] | | | | | | [facility] - | | | | | | LABORATORY | | + + + + + + | Hematocrit | 36.1 | 34.0 - 47.0 % | [facility] | | | | | | [facility] | | | | | | [facility] | | | | | | [facility] - | | | | | | LABORATORY | | + + + + + + | MCV | 85.8 | 83.0 - 101.0 fL | [facility] | | | | | | [facility] | | | | | | [facility] | | | | | | C[facility] - | | | | | | LABORATORY | | + + + + + + | MCH | 27.8 (L) | 28.0 - 35.0 pg | [facility] | | | | | | [facility] | | | | | | [facility] | | | | | | C[facility] - | | | | | | LABORATORY | | + + + + + + | MCHC | 32.4 | 32.0 - 36.0 | [facility] | | | | | g/dL | [facility] | | | | | | [facility] | | | | | | CENTER - | | | | | | LABORATORY | | + + + + + + | RDW-CV | 13.1 | <15.0 % | [facility] | | | | | | [facility] | | | | | | [facility] | | | | | | CENTER - | | | | | | LABORATORY | | + + + + + + | Platelet | 243 | 140 - 440 K/uL | [facility] | | | Count | | | [facility] | | | | | | [facility] | | | | | | CENTER - | | | | | | LABORATORY | | + + + + + + | MPV | 8.5 | fL | [facility] | | | | | | [facility] | | | | | | [facility] | | | | | | C[facility] - | | | | | | LABORATORY | | + + + + + + + + | Specimen | + + | Blood | + + + + + + + | Performing | Address | City/State/Zipcode | Phone Number | | Organization | | | | + + + + + | [facility] | [address] | [place] | [phone] | | [facility] | | [address] | | | - LABORATORY | | | | + + + + + Basic Metabolic Panel (05/10/2017 3:35 AM PST) + + + + + + | Component | Value | Ref Range | Performed | Pathologist | | | | | At | Signature | + + + + + + | Na | 138 | 136 - 149 | [facility] | | | | | mmol/L | [facility] | | | | | | [facility] | | | | | | CENTER - | | | | | | LABORATORY | | + + + + + + | K | 3.5 | 3.5 - 5.1 | [facility] | | | | | mmol/L | [facility] | | | | | | [facility] | | | | | | CENTER - | | | | | | LABORATORY | | + + + + + + | Cl | 106 | 98 - 109 mmol/L | [facility] | | | | | | [facility] | | | | | | [facility] | | | | | | CENTER - | | | | | | LABORATORY | | + + + + + + | CO2 | 24 | 24 - 31 mmol/L | [facility] | | | | | | [facility] | | [facility] | | | [facility] | | | | | | CENTER - | | | | | | LABORATORY | | + + + + + + | Anion Gap | 8 | 3 - 16 mmol/L | [facility] | | | | | | [facility] | | | | | | [facility] | | | | | | CENTER - | | | | | | LABORATORY | | + + + + + + | Glucose | 103 | 70 - 109 mg/dL | [facility] | | | | | | [facility] | | [facility] | | | [facility] | | | | | | CENTER - | | | | | | LABORATORY | | + + + + + + | BUN | 7 | 7 - 18 mg/dL | [facility] | | | | | | [facility] | | | | | | [facility] | | | | | | CENTER - | | | | | | LABORATORY | | + + + + + + | Creatinine | 0.59 (L) | 0.60 - 1.30 | [facility] | | | | | mg/dL | [facility] | | | | | | [facility] | | | | | | CENTER - | | | | | | LABORATORY | | + + + + + + | eGFR if not | >60Comment: GLOMERULAR | >=60 | [facility] | | | | FILTRATION | mL/min/1.73m2 | [facility] | | | [facility] | RATE,ESTIMATED | | MEDICAL | | | | mL/min/1.32h4Fizf than | | CENTER - | | | | 60 Chronic kidney | | LABORATORY | | | | disease,if found over a | | | | | | 3-month period.Less than | | | | | | 15 Kidney failureFor | | | | | | | | | | | | Americans,multiply the | | | | | | calculated GFR by 1.21. | | | | | | | | | | + + + + + + | Calcium | 8.3 | 8.3 - 10.5 | [facility] | | | | | mg/dL | [facility] | | | | | | [facility] | | | | | | C[facility] - | | | | | | LABORATORY | | + + + + + + | BUN/Creatin | 11.9 | | [facility] | | | ine Ratio | | | [facility] | | | | | | [facility] | | | | | | CENTER - | | | | | | LABORATORY | | + + + + + + + + | Specimen | + + | Blood | + + + + + + + | Performing | Address | City/State/Zipcode | Phone Number | | Organization | | | | + + + + + | [facility] | [address] | [place] | [phone] | | [facility] | | [address] | | | - LABORATORY | | | | + + + + + Magnesium (05/10/2017 3:35 AM PST) + +-------+ + + + | Component | Value | Ref Range | Performed | Pathologist | | | | | At | Signature | + +-------+ + + + | Magnesium | 2.0 | 1.8 - 2.5 mg/dL | [facility] | | | | | | [facility] | | | | | [facility] | | | | | | [facility] - | | | | | | LABORATORY | | + +-------+ + + + + + | Specimen | + + | Blood | + + + + + + + | Performing | Address | City/State/Zipcode | Phone Number | | Organization | | | | + + + + + | [facility] | [address] | [place] | [phone] | | [facility] | | [address] | | | - LABORATORY | | | | + + + + + POC Glucose (05/09/2017 9:05 PM PST) + +-------+ + + + | Component | Value | Ref Range | Performed | Pathologist | | | | | At | Signature | + +-------+ + + + | Glucose, | 104 | 70 - 109 mg/dL | [facility] | | | POC | | | [facility] | | | | | | [facility] | | | | | | CENTER - | | | | | | LABORATORY | | + +-------+ + + + + + | Specimen | + + | Blood | + + + + + + + | Performing | Address | City/State/Zipcode | Phone Number | | Organization | | | | + + + + + | [facility] | [address] | [place] | [phone] | | [facility] | | [address] | | | - LABORATORY | | | | + + + + + POC Glucose (05/09/2017 4:44 PM PST) + +-------+ + + + | Component | Value | Ref Range | Performed | Pathologist | | | | | At | Signature | + +-------+ + + + | Glucose, | 104 | 70 - 109 mg/dL | [facility] | | | POC | | | [facility] | | | | | | [facility] | | | | | | CENTER - | | | | | | LABORATORY | | + +-------+ + + + + + | Specimen | + + | Blood | + + + + + + + | Performing | Address | City/State/Zipcode | Phone Number | | Organization | | | | + + + + + | [facility] | [address] | [place] | [phone] | | [facility] | | [address] | | | - LABORATORY | | | | + + + + + CV CARDIAC PROCEDURE (05/09/2017 2:02 PM PST) + + | Specimen | + + | | + + + + + | Narrative | Performed At | + + + | Johnny Luther MD 05/09/2017 14:39 CARDIAC CATHETERIZATION | [facility] | | REPORT DATE OF PROCEDURE: 05/09/17 | | | PRECATHETERIZATION INFORMED CONSENT : Yes TIMEOUT Before start of | | | procedure done: Yes GREEN BUILDING DESIGN SPECIALIST: Johnny Johnson M.D., F.A.C.C. | | | PRIMARY PHYSICIAN: Bry Vaughn, PROCEDURES PERFORMED: | | | Left heart catheterization, selective coronary arteriography | | | INDICATIONS : 61-year-old woman admitted with acute respiratory | | | failure, elevated troponin ARTERIAL ACCESS: Right radial artery 6 | | | [place] CLOSURE DEVICE:. TR band DESCRIPTION OF PROCEDURE: | | | After obtaining informed written consent, the patient was brought to | | | the cardiac catheterization laboratory in stable condition where | | | she was prepped and draped in the usual fashion. Local anesthesia | | | was administered to the right anterior wrist with 1% lidocaine. | | | Access to the right radial artery was achieved using a Seldinger | | | technique and a 6 Argentine sheath was inserted. 3 mg per mL and 300 | | | g of nitroglycerin were administered through the side port of the | | | radial artery sheath. 4000 units of intravenous heparin was | | | administered. Selective coronary arteriography was performed using | | | a 5 Argentine Ole catheter. The 5 [place] Ole catheter was | | | advanced across the aortic valve without difficulty. Left | | | ventricular pressures and aortic valve pullback pressures were | | | recorded. The right radial artery sheath was removed using the | | | patent hemostasis technique and a TR band was applied with good | | | hemostasis. There were no complications. SEDATION MEDICATIONS: | | | None CONTRAST VOLUME: 57 mL Omnipaque FLUORO TIME: 2.2 | | | minutes; FLUORO DOSE: 220 mGy/cm2 HEMODYNAMICS: LEFT HEART: | | | Left ventricular end diastolic pressure: 25 mmHg Aortic pressure: | | | 146/89 mmHg Aortic Valve Gradient on pullback: 0 mmHg CORONARY | | | ANGIOGRAPHY DOMINANCE: Right LEFT MAIN ARTERY: Medium caliber | | | vessel arising from left coronary cusp, mild luminal irregularity | | | LEFT ANTERIOR DESCENDING ARTERY: Medium caliber vessel extending | | | to the apex, distal and apical segment have mild luminal narrowing, | | | first and second diagonal branches are small in caliber, third | | | diagonal branch is medium caliber with mild luminal irregularity, | | | apical segment is moderately tortuous and small in caliber | | | CIRCUMFLEX ARTERY: Medium caliber vessel which gives rise to first | | | major obtuse marginal branch, eccentric 50% proximal stenosis, mild | | | luminal irregularity distally RIGHT CORONARY ARTERY: Medium | | | caliber vessel arising from right coronary cusp, dominant, minimal | | | luminal irregularity, posterior descending artery is moderately | | | tortuous in its distal segment, single posterior lateral branch with | | | mild luminal irregularity CONTRAST LEFT VENTRICULOGRAPHY: Not | | | performed CONCLUSIONS: 1. Elevated left ventricular | | | end-diastolic pressure 2. Mild to moderate proximal left circumflex | | | stenosis 3. 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 | | | [facility] [employer] [facility] | | | [place] | | + + + + +---------+ + + | Performing | Address | City/State/Zipcode | Phone Number | | Organization | | | | + +---------+ + + | [facility] | | | | + +---------+ + + POC Glucose (05/09/2017 11:41 AM PST) + +---------+ + + + | Component | Value | Ref Range | Performed | Pathologist | | | | | At | Signature | + +---------+ + + + | Glucose, | 118 (H) | 70 - 109 mg/dL | [facility] | | | POC | | | [facility] | | | | | | [facility] | | | | | | [facility] - | | | | | | LABORATORY | | + +---------+ + + + + + | Specimen | + + | Blood | + + + + + + + | Performing | Address | City/State/Zipcode | Phone Number | | Organization | | | | + + + + + | [facility] | [address] | [place] | [phone] | | [facility] | | [address] | | | - LABORATORY | | | | + + + + + ECG 12 lead (05/09/2017 11:33 AM PST) + + + + + + | Component | Value | Ref Range | Performed | Pathologist | | | | | At | Signature | + + + + + + | VENTRICULAR | 82 | BPM | [facility] | | | RATE EKG | | | | | + + + + + + | ATRIAL RATE | 82 | BPM | [facility] | | + + + + + + | P-R | 194 | ms | [facility] | | | INTERVAL | | | | | + + + + + + | QRS | 74 | ms | [facility] | | | DURATION | | | | | + + + + + + | Q-T | 366 | ms | [facility] | | | INTERVAL | | | | | + + + + + + | Q-T | 427 | ms | [facility] | | | INTERVAL | | | | | | (CORRECTED) | | | | | + + + + + + | P WAVE AXIS | 70 | degrees | [facility] | | + + + + + + | QRS AXIS | -38 | degrees | [facility] | | + + + + + + | T AXIS | 61 | degrees | [facility] | | + + + + + + | INTERPRETAT | Normal sinus | | [facility] | | | ION TEXT | rhythmPossible Left | | | | | | atrial enlargementLeft | | | | | | axis deviationT wave | | | | | | abnormality, consider | | | | | | anterolateral | | | | | | ischemiaNonspecific T | | | | | | wave abnormality Lateral | | | | | | leadsAbnormal ECGWhen | | | | | | compared with ECG of | | | | | | 08-MAY-2017 13:08,there | | | | | | is new T wave inversion | | | | | | in lead V3 and biphaasic | | | | | | T waves in leads | | | | | | V4-6Confirmed by GEORGES | | | | | | LUCIO HU ([id number]) on | | | | | | 05/10/2017 7:08:38 AM | | | | + + + + + + + + | Specimen | + + | | + + + + + | Narrative | Performed At | + + + | | | + + + + +---------+ + + | Performing | Address | City/State/Zipcode | Phone Number | | Organization | | | | + +---------+ + + | [facility] | | | | + +---------+ + + PTT (05/09/2017 9:16 AM PST) + +--------+ + + + | Component | Value | Ref Range | Performed | Pathologist | | | | | At | Signature | + +--------+ + + + | aPTT | 65 (H) | 22 - 36 seconds | [facility] | | [facility] | [facility] | | | | | | [facility] | | + +--------+ + + + + + | Specimen | + + | Blood | + + + + + + + | Performing | Address | City/State/Zipcode | Phone Number | | Organization | | | | + + + + + | [facility] | [address] | [place] | [phone] | | [facility] | | [id number] | | | - LABORATORY | | | | + + + + + POC Glucose (05/09/2017 7:49 AM PST) + +---------+ + + + | Component | Value | Ref Range | Performed | Pathologist | | | | | At | Signature | + +---------+ + + + | Glucose, | 112 (H) | 70 - 109 mg/dL | [facility] | | [facility] | [facility] | [facility] - | | | | | | LABORATORY | | + +---------+ + + + + + | Specimen | + + | Blood | + + + + + + + | Performing | Address | City/State/Zipcode | Phone Number | | Organization | | | | + + + + + | [facility] | [address] | [place], [place] | [phone] | | [facility] | | [id number] | | | - LABORATORY | | | | + + + + + PTT (05/09/2017 3:07 AM PST) + +--------+ + + + | Component | Value | Ref Range | Performed | Pathologist | | | | | At | Signature | + +--------+ + + + | aPTT | 85 (H) | 22 - 36 seconds | [facility] | | [facility] | [facility] | | | | | | [facility] - | | | | | | LABORATORY | | + +--------+ + + + + + | Specimen | + + | Blood | + + + + + + + | Performing | Address | City/State/Zipcode | Phone Number | | Organization | | | | + + + + + | [facility] | [address] | [place], [place] | [phone] | | [facility] | | [address] | | | - LABORATORY | | | | + + + + + Protime INR (05/09/2017 3:07 AM PST) + + + + + + | Component | Value | Ref Range | Performed | Pathologist | | | | | At | Signature | + + + + + + | Prothrombin | 13.4 | 11.3 - 13.9 | [facility] | | | Time | | seconds | [facility] | | | | | | [facility] | | | | | | CENTER - | | | | | | LABORATORY | | + + + + + + | INR | 1.03Comment: Usual Oral | 0.90 - 1.10 | [facility] | | | | Anticoagulation Range: | | [facility] | | | | 2.0 - 3.0High | | MEDICAL | | | | Level Oral | | CENTER - | | | | Anticoagulation Range: | | LABORATORY | | | | 2.5 - 3.5 | | | | + + + + + + + + | Specimen | + + | Blood | + + + + + + + | Performing | Address | City/State/Zipcode | Phone Number | | Organization | | | | + + + + + | [facility] | [address] | [place] | [phone] | | [facility] | | [address] | | | - LABORATORY | | | | + + + + + Magnesium (05/09/2017 3:07 AM PST) + +-------+ + + + | Component | Value | Ref Range | Performed | Pathologist | | | | | At | Signature | + +-------+ + + + | Magnesium | 2.2 | 1.8 - 2.5 mg/dL | [facility] | | | | | | [facility] | | | | | [facility] | | | | | | CENTER - | | | | | | LABORATORY | | + +-------+ + + + + + | Specimen | + + | Blood | + + + + + + + | Performing | Address | City/State/Zipcode | Phone Number | | Organization | | | | + + + + + | [facility] | [address] | [place] | [phone] | | [facility] | | [address] | | | - LABORATORY | | | | + + + + + Comprehensive Metabolic Panel (05/09/2017 3:07 AM PST) + + + + + + | Component | Value | Ref Range | Performed | Pathologist | | | | | At | Signature | + + + + + + | Na | 143 | 136 - 149 | [facility] | | | | | mmol/L | [facility] | | | | | | MEDICAL | | | | | | CENTER - | | | | | | LABORATORY | | + + + + + + | K | 4.3 | 3.5 - 5.1 | [facility] | | | | | mmol/L | [facility] | | | | | | MEDICAL | | | | | | CENTER - | | | | | | LABORATORY | | + + + + + + | Cl | 113 (H) | 98 - 109 mmol/L | [facility] | | | | | | [facility] | | | | | | [facility]ICAL | | | | | | CENTER - | | | | | | LABORATORY | | + + + + + + | CO2 | 22 (L) | 24 - 31 mmol/L | [facility] | | | | | | [facility] | | | | | | [facility] | | | | | | CENTER - | | | | | | LABORATORY | | + + + + + + | Anion Gap | 8 | 3 - 16 mmol/L | [facility] | | | | | | [facility] | | | | | | [facility] | | | | | | CENTER - | | | | | | LABORATORY | | + + + + + + | Glucose | 137 (H) | 70 - 109 mg/dL | [facility] | | | | | | [facility] | | | | | | [facility] | | | | | | CENTER - | | | | | | LABORATORY | | + + + + + + | BUN | 7 | 7 - 18 mg/dL | [facility] | | | | | | [facility] | | | | | | [facility] | | | | | | CENTER - | | | | | | LABORATORY | | + + + + + + | Creatinine | 0.53 (L) | 0.60 - 1.30 | [facility] | | | | | mg/dL | [facility] | | | | | | MEDICAL | | | | | | CENTER - | | | | | | LABORATORY | | + + + + + + | eGFR if not | >60Comment: GLOMERULAR | >=60 | [facility] | | | | FILTRATION | mL/min/1.73m2 | [facility] | | | LAO | RATE,ESTIMATED | | MEDICAL | | | | mL/min/1.19r9Rsms than | | CENTER - | | | | 60 Chronic kidney | | LABORATORY | | | | disease,if found over a | | | | | | 3-month period.Less than | | | | | | 15 Kidney failureFor | | | | | | | | | | | | Americans,multiply the | | | | | | calculated GFR by 1.21. | | | | | | | | | | + + + + + + | Calcium | 8.0 (L) | 8.3 - 10.5 | [facility] | | | | | mg/dL | [facility] | | [facility] | | [facility] | | | | | | CENTER - | | | | | | LABORATORY | | + + + + + + | Albumin | 3.4 | 3.2 - 5.0 g/dL | [facility] | | | | | | [facility] | | | | | | [facility] | | | | | | CENTER - | | | | | | LABORATORY | | + + + + + + | Bilirubin | 0.9 | 0.1 - 1.5 mg/dL | [facility] | | | Total | | | [facility] | | | | | | [facility] | | | | | | CENTER - | | | | | | LABORATORY | | + + + + + + | Total | 5.4 (L) | 6.0 - 7.8 g/dL | [facility] | | | Protein | | | [facility] | | | | | | [facility] | | | | | | CENTER - | | | | | | LABORATORY | | + + + + + + | AST | 43 (H) | 10 - 42 U/L | [facility] | | | | | | [facility] | | | | | | [facility] | | | | | | CENTER - | | | | | | LABORATORY | | + + + + + + | ALT | 22 | 6 - 45 U/L | [facility] | | | | | | [facility] | | | | | | MEDICAL | | | | | | CENTER - | | | | | | LABORATORY | | + + + + + + | Alkaline | 58 | 40 - 110 U/L | [facility] | | | Phosphatase | | | [facility] | | | | | | MEDICAL | | | | | | CENTER - | | | | | | LABORATORY | | + + + + + + | Globulin | 2.0 (L) | 2.1 - 3.8 g/dL | [facility] | | | | | | [facility] | | | | | | MEDICAL | | | | | | CENTER - | | | | | | LABORATORY | | + + + + + + | Albumin/Sol | 1.7 | 0.8 - 2.0 | [facility] | | | bulin Ratio | | | [facility] | | | | | | MEDICAL | | | | | | CENTER - | | | | | | LABORATORY | | + + + + + + | BUN/Creatin | 13.2 | | [facility] | | | ine Ratio | | | [facility] | | | | | | MEDICAL | | | | | | CENTER - | | | | | | LABORATORY | | + + + + + + + + | Specimen | + + | Blood | + + + + + + + | Performing | Address | City/State/Zipcode | Phone Number | | Organization | | | | + + + + + | [facility] | [address] | [place] | [phone] | | [facility] | | [address] | | | - LABORATORY | | | | + + + + + CBC with Differential (05/09/2017 3:07 AM PST) + + + + + + | Component | Value | Ref Range | Performed | Pathologist | | | | | At | Signature | + + + + + + | WBC | 20.2 (H) | 4.0 - 11.0 K/uL | [facility] | | | | | | [facility] | | | | | [facility] | | | | | | CENTER - | | | | | | LABORATORY | | + + + + + + | RBC | 4.25 | 3.70 - 5.20 | [facility] | | | | | M/uL | [facility] | | | | | | MEDICAL | | | | | | CENTER - | | | | | | LABORATORY | | + + + + + + | Hemoglobin | 11.8 | 11.5 - 16.0 | [facility] | | | | | g/dL | [facility] | | | | | | MEDICAL | | | | | | CENTER - | | | | | | LABORATORY | | + + + + + + | Hematocrit | 36.5 | 34.0 - 47.0 % | [facility] | | | | | | [facility] | | | | | | MEDICAL | | | | | | CENTER - | | | | | | LABORATORY | | + + + + + + | MCV | 85.9 | 83.0 - 101.0 fL | [facility] | | | | | | [facility] | | | | | | MEDICAL | | | | | | CENTER - | | | | | | LABORATORY | | + + + + + + | MCH | 27.8 (L) | 28.0 - 35.0 pg | [facility] | | | | | | [facility] | | | | | | MEDICAL | | | | | | CENTER - | | | | | | LABORATORY | | + + + + + + | MCHC | 32.3 | 32.0 - 36.0 | [facility] | | | | | g/dL | [facility] | | | | | | MEDICAL | | | | | | CENTER - | | | | | | LABORATORY | | + + + + + + | RDW-CV | 13.5 | <15.0 % | [facility] | | | | | | [facility] | | | | | | [facility]ICAL | | | | | | CENTER - | | | | | | LABORATORY | | + + + + + + | Platelet | 239 | 140 - 440 K/uL | [facility] | | | Count | | | [facility] | | | | | | MEDICAL | | | | | | CENTER - | | | | | | LABORATORY | | + + + + + + | MPV | 8.8 | fL | [facility] | | | | | | [facility] | | | | | | MEDICAL | | | | | | CENTER - | | | | | | LABORATORY | | + + + + + + | % | 88.8 (H) | 45.0 - 82.0 % | [facility] | | | Neutrophils | | | [facility] | | | | | | MEDICAL | | | | | | CENTER - | | | | | | LABORATORY | | + + + + + + | % | 6.5 (L) | 20.0 - 45.0 % | [facility] | | | Lymphocytes | | | [facility] | | | | | | MEDICAL | | | | | | CENTER - | | | | | | LABORATORY | | + + + + + + | % Monocytes | 4.5 | 4.0 - 12.0 % | [facility] | | | | | | [facility] | | | | | | MEDICAL | | | | | | CENTER - | | | | | | LABORATORY | | + + + + + + | % | 0.0 | 0.0 - 5.0 % | [facility] | | | Eosinophils | | | [facility] | | | | | | MEDICAL | | | | | | CENTER - | | | | | | LABORATORY | | + + + + + + | % Basophils | 0.2 | 0.0 - 1.0 % | [facility] | | | | | | [facility] | | | | | | MEDICAL | | | | | | CENTER - | | | | | | LABORATORY | | + + + + + + | Absolute | 18.00 (H) | 1.80 - 8.50 | [facility] | | | Neutrophils | | K/uL | [facility] | | | | | | MEDICAL | | | | | | CENTER - | | | | | | LABORATORY | | + + + + + + | Absolute | 1.30 | 0.60 - 3.20 | [facility] | | | Lymphocytes | | K/uL | [facility] | | | | | | MEDICAL | | | | | | CENTER - | | | | | | LABORATORY | | + + + + + + | Absolute | 0.90 | 0.00 - 1.00 | [facility] | | | Monocytes | | K/uL | [facility] | | | | | | [facility]ICAL | | | | | | CENTER - | | | | | | LABORATORY | | + + + + + + | Absolute | 0.00 | 0.00 - 0.40 | [facility] | | | Eosinophils | | K/uL | [facility] | | | | | | [facility]ICAL | | | | | | CENTER - | | | | | | LABORATORY | | + + + + + + | Absolute | 0.00 | 0.00 - 0.10 | [facility] | | | Basophils | | K/uL | [facility] | | | | | | [facility]ICAL | | | | | | CENTER - | | | | | | LABORATORY | | + + + + + + + + | Specimen | + + | Blood | + + + + + + + | Performing | Address | City/State/Zipcode | Phone Number | | Organization | | | | + + + + + | [facility] | [address] | [place] | [phone] | | [facility] | | [address] | | | - LABORATORY | | | | + + + + + Troponin I (05/09/2017 1:12 AM PST) + + + + + + | Component | Value | Ref Range | Performed | Pathologist | | | | | At | Signature | + + + + + + | Troponin I | 1.88 ()Comment: | <0.06 ng/mL | [facility] | | | | Reference | | [facility] | | | | Ranges:0.00-0.06 = | | MEDICAL | | | | NORMAL>0.06 = | | CENTER - | | | | SUSPICIOUS FOR | | LABORATORY | | | | MYOCARDIAL DAMAGE NOTE: | | | | | | Values greater than 0.50 | | | | | | ng/mL have been shown | | | | | | to be strongly | | | | | | associated with acute | | | | | | myocardial infarction. | | | | | | The [employer] | | | | | | Cardiology (ACC) | | | | | | recommends a decision | | | | | | limit of 0.06 ng/mL for | | | | | | this assay. Results | | | | | | greater than 0.06 can | | | | | | reflect a pre-infarct | | | | | | acute coronary syndrome, | | | | | | but can also reflect | | | | | | myocardial necrosis or | | | | | | injury that is not due | | | | | | to coronary artery | | | | | | disease. Some of these | | | | | | causes are sepsis, | | | | | | hypocolemia, atrial | | | | | | fibrillation, heart | | | | | | failure, pulmonary | | | | | | embolism, myocarditis, | | | | | | myocardial contusion, | | | | | | and renal failure. The | | | | | | diagnosis of myocardial | | | | | | infarction should be | | | | | | based on a combination | | | | | | of the patient's | | | | | | clinical presentation | | | | | | and the clinical | | | | | | laboratory test results | | | | | | (especially serial | | | | | | troponin levels). | | | | | | Consistent with previous | | | | | | results. | | | | + + + + + + + + | Specimen | + + | Blood | + + + + + + + | Performing | Address | City/State/Zipcode | Phone Number | | Organization | | | | + + + + + | [facility] | [address] | [place] | [phone] | | [facility] | | [address] | | | - LABORATORY | | | | + + + + + POC Glucose (05/08/2017 9:38 PM PST) + +---------+ + + + | Component | Value | Ref Range | Performed | Pathologist | | | | | At | Signature | + +---------+ + + + | Glucose, | 126 (H) | 70 - 109 mg/dL | [facility] | | | POC | | | [facility] | | | | | | MEDICAL | | | | | | CENTER - | | | | | | LABORATORY | | + +---------+ + + + + + | Specimen | + + | Blood | + + + + + + + | Performing | Address | City/State/Zipcode | Phone Number | | Organization | | | | + + + + + | [facility] | [address] | [place] | [phone] | | [facility] | | [address] | | | - LABORATORY | | | | + + + + + PTT (05/08/2017 8:43 PM PST) + +--------+ + + + | Component | Value | Ref Range | Performed | Pathologist | | | | | At | Signature | + +--------+ + + + | aPTT | 53 (H) | 22 - 36 seconds | [facility] | | | | | | [facility] | | | | | | [facility]ICAL | | | | | | CENTER - | | | | | | LABORATORY | | + +--------+ + + + + + | Specimen | + + | Blood | + + + + + + + | Performing | Address | City/State/Zipcode | Phone Number | | Organization | | | | + + + + + | [facility] | [address] | [place] | [phone] | | [facility] | | [address] | | | - LABORATORY | | | | + + + + + Troponin I (05/08/2017 6:55 PM PST) + + + + + + | Component | Value | Ref Range | Performed | Pathologist | | | | | At | Signature | + + + + + + | Troponin I | 2.58 ()Comment: | <0.06 ng/mL | [facility] | | | | Reference | | [facility] | | | | Ranges:0.00-0.06 = | | MEDICAL | | | | NORMAL>0.06 = | | CENTER - | | | | SUSPICIOUS FOR | | LABORATORY | | | | MYOCARDIAL DAMAGE NOTE: | | | | | | Values greater than 0.50 | | | | | | ng/mL have been shown | | | | | | to be strongly | | | | | | associated with acute | | | | | | myocardial infarction. | | | | | | Consistent with previous | | | | | | results. The [place] | | | | | | [employer] of [employer]iology | | | | | | (ACC) recommends a | | | | | | decision limit of 0.06 | | | | | | ng/mL for this assay. | | | | | | Results greater than | | | | | | 0.06 can reflect a | | | | | | pre-infarct acute | | | | | | coronary syndrome, but | | | | | | can also reflect | | | | | | myocardial necrosis or | | | | | | injury that is not due | | | | | | to coronary artery | | | | | | disease. Some of these | | | | | | causes are sepsis, | | | | | | hypocolemia, atrial | | | | | | fibrillation, heart | | | | | | failure, pulmonary | | | | | | embolism, myocarditis, | | | | | | myocardial contusion, | | | | | | and renal failure. The | | | | | | diagnosis of myocardial | | | | | | infarction should be | | | | | | based on a combination | | | | | | of the patient's | | | | | | clinical presentation | | | | | | and the clinical | | | | | | laboratory test results | | | | | | (especially serial | | | | | | troponin levels). | | | | + + + + + + + + | Specimen | + + | Blood | + + + + + + + | Performing | Address | City/State/Zipcode | Phone Number | | Organization | | | | + + + + + | [facility] | [address] | [place] | [phone] | | [facility] | | [address] | | | - LABORATORY | | | | + + + + + POC Glucose (05/08/2017 4:28 PM PST) + +---------+ + + + | Component | Value | Ref Range | Performed | Pathologist | | | | | At | Signature | + +---------+ + + + | Glucose, | 157 (H) | 70 - 109 mg/dL | [facility] | | | POC | | | [facility] | | | | | | [facility]ICAL | | | | | | CENTER - | | | | | | LABORATORY | | + +---------+ + + + + + | Specimen | + + | Blood | + + + + + + + | Performing | Address | City/State/Zipcode | Phone Number | | Organization | | | | + + + + + | [facility] | [address] | [place] | [phone] | | [facility] | | [address] | | | - LABORATORY | | | | + + + + + PTT (05/08/2017 2:06 PM PST) + +-------+ + + + | Component | Value | Ref Range | Performed | Pathologist | | | | | At | Signature | + +-------+ + + + | aPTT | 30 | 22 - 36 seconds | [facility] | | | | | | [facility] | | | | | | MEDICAL | | | | | | CENTER - | | | | | | LABORATORY | | + +-------+ + + + + + | Specimen | + + | Blood | + + + + + + + | Performing | Address | City/State/Zipcode | Phone Number | | Organization | | | | + + + + + | [facility] | [address] | [place] | [phone] | | [facility] | | [address] | | | - LABORATORY | | | | + + + + + POC Blood Gases (05/08/2017 1:30 PM PST) + +--------+ + + + | Component | Value | Ref Range | Performed | Pathologist | | | | | At | Signature | + +--------+ + + + | Specimen | Artery | | [facility] | | | Source | | | [facility] | | | | | | [facility] | | | | | | CENTER - | | | | | | LABORATORY | | + +--------+ + + + | pH, POC | 7.341 | 7.3 - 7.45 | [facility] | | | | | | [facility] | | | | | | MEDICAL | | | | | | CENTER - | | | | | | LABORATORY | | + +--------+ + + + | HCO3, POC | 24.2 | 21.0 - 28.0 | [facility] | | | | | mmol/L | [facility] | | | | | | MEDICAL | | | | | | CENTER - | | | | | | LABORATORY | | + +--------+ + + + | TCO2, POC | 25.5 | 22.0 - 29.0 | [facility] | | | | | mmol/L | [facility] | | | | | | MEDICAL | | | | | | CENTER - | | | | | | LABORATORY | | + +--------+ + + + | Base | -1.8 | -2.0 - 3.0 | [facility] | | | Excess, POC | | mmol/L | [facility] | | | | | | MEDICAL | | | | | | CENTER - | | | | | | LABORATORY | | + +--------+ + + + | Base | -1.6 | -2.0 - 3.0 | [facility] | | | Excess, | | mmol/L | [facility] | | | Extracellul | | | MEDICAL | | | ar fluid, | | | CENTER - | | | POC | | | LABORATORY | | + +--------+ + + + | O2 Sat, POC | 96 | 90 - 100 % | [facility] | | | | | | [facility] | | | | | | MEDICAL | | | | | | CENTER - | | | | | | LABORATORY | | + +--------+ + + + | PCO2, POC | 44.7 | 35.0 - 45 mmHg | [facility] | | | | | | [facility] | | | | | | MEDICAL | | | | | | CENTER - | | | | | | LABORATORY | | + +--------+ + + + | pO2, POC | 85.7 | 60 - 750.0 mmHg | [facility] | | | | | | [facility] | | | | | | MEDICAL | | | | | | CENTER - | | | | | | LABORATORY | | + +--------+ + + + + + | Specimen | + + | | + + + + + + + | Performing | Address | City/State/Zipcode | Phone Number | | Organization | | | | + + + + + | [facility] | [address] | [place] | [phone] | | [facility] | | [address] | | | - LABORATORY | | | | + + + + + ECG 12 lead (05/08/2017 1:08 PM PST) + + + + + + | Component | Value | Ref Range | Performed | Pathologist | | | | | At | Signature | + + + + + + | VENTRICULAR | 88 | BPM | [facility] | | | RATE EKG | | | | | + + + + + + | ATRIAL RATE | 88 | BPM | [facility] | | + + + + + + | P-R | 174 | ms | [facility] | | | INTERVAL | | | | | + + + + + + | QRS | 72 | ms | [facility] | | | DURATION | | | | | + + + + + + | Q-T | 382 | ms | [facility] | | | INTERVAL | | | | | + + + + + + | Q-T | 462 | ms | [facility] | | | INTERVAL | | | | | | (CORRECTED) | | | | | + + + + + + | P WAVE AXIS | 51 | degrees | [facility] | | + + + + + + | QRS AXIS | -13 | degrees | [facility] | | + + + + + + | T AXIS | 52 | degrees | [facility] | | + + + + + + | INTERPRETAT | Normal sinus | | [facility] | | | ION TEXT | rhythmNonspecific T wave | | | | | | abnormality Lateral | | | | | | leadsWhen compared with | | | | | | ECG of 08-MAY-2017 | | | | | | 02:50,QTc has decreased | | | | | | in durationT wave | | | | | | amplitude has decreased | | | | | | in in lead IT wave is | | | | | | now inverted in lead | | | | | | [id number] by GEORGES | | | | | | LUCIO HU ([id number]) on | | | | | | 05/09/2017 7:21:00 AM | | | | + + + + + + + + | Specimen | + + | | + + + + + | Narrative | Performed At | + + + | | | + + + + +---------+ + + | Performing | Address | City/State/Zipcode | Phone Number | | Organization | | | | + +---------+ + + | [facility] | | | | + +---------+ + + Hemoglobin and Hematocrit (05/08/2017 12:50 PM PST) + +-------+ + + + | Component | Value | Ref Range | Performed | Pathologist | | | | | At | Signature | + +-------+ + + + | Hemoglobin | 13.1 | 11.5 - 16.0 | [facility] | | | | | g/dL | [facility] | | | | | | [facility]ICAL | | | | | | CENTER - | | | | | | LABORATORY | | + +-------+ + + + | Hematocrit | 40.3 | 34.0 - 47.0 % | [facility] | | | | | | [facility] | | | | | | [facility] | | | | | | CENTER - | | | | | | LABORATORY | | + +-------+ + + + + + | Specimen | + + | Blood | + + + + + + + | Performing | Address | City/State/Zipcode | Phone Number | | Organization | | | | + + + + + | [facility] | [address] | [place] | [phone] | | [facility] | | [address] | | | - LABORATORY | | | | + + + + + PTT (05/08/2017 12:50 PM PST) + +--------+ + + + | Component | Value | Ref Range | Performed | Pathologist | | | | | At | Signature | + +--------+ + + + | aPTT | 99 (H) | 22 - 36 seconds | [facility] | | | | | | [facility] | | | | | | [facility] | | | | | | CENTER - | | | | | | LABORATORY | | + +--------+ + + + + + | Specimen | + + | Blood | + + + + + + + | Performing | Address | City/State/Zipcode | Phone Number | | Organization | | | | + + + + + | [facility] | [address] | [place] | [phone] | | [facility] | | [address] | | | - LABORATORY | | | | + + + + + Magnesium (05/08/2017 12:50 PM PST) + +-------+ + + + | Component | Value | Ref Range | Performed | Pathologist | | | | | At | Signature | + +-------+ + + + | Magnesium | 2.3 | 1.8 - 2.5 mg/dL | [facility] | | | | | | [facility] | | | | | | MEDICAL | | | | | | CENTER - | | | | | | LABORATORY | | + +-------+ + + + + + | Specimen | + + | Blood | + + + + + + + | Performing | Address | City/State/Zipcode | Phone Number | | Organization | | | | + + + + + | [facility] | [address] | [place] | [phone] | | [facility] | | [address] | | | - LABORATORY | | | | + + + + + Potassium (05/08/2017 12:50 PM PST) + +-------+ + + + | Component | Value | Ref Range | Performed | Pathologist | | | | | At | Signature | + +-------+ + + + | K | 4.1 | 3.5 - 5.1 | [facility] | | | | | mmol/L | [facility] | | | | | | MEDICAL | | | | | | CENTER - | | | | | | LABORATORY | | + +-------+ + + + + + | Specimen | + + | Blood | + + + + + + + | Performing | Address | City/State/Zipcode | Phone Number | | Organization | | | | + + + + + | [facility] | [address] | [place] | [phone] | | [facility] | | [address] | | | - LABORATORY | | | | + + + + + Troponin I (05/08/2017 12:50 PM PST) + + + + + + | Component | Value | Ref Range | Performed | Pathologist | | | | | At | Signature | + + + + + + | Troponin I | 2.73 ()Comment: | <0.06 ng/mL | [facility] | | | | Consistent with previous | | [facility] | | | | results. Reference | | MEDICAL | | | | Ranges:0.00-0.06 = | | CENTER - | | | | NORMAL>0.06 = | | LABORATORY | | | | SUSPICIOUS FOR | | | | | | MYOCARDIAL DAMAGE NOTE: | | | | | | Values greater than 0.50 | | | | | | ng/mL have been shown | | | | | | to be strongly | | | | | | associated with acute | | | | | | myocardial infarction. | | | | | | The [employer] | | | | | | Cardiology ([employer]) | | | | | | recommends a decision | | | | | | limit of 0.06 ng/mL for | | | | | | this assay. Results | | | | | | greater than 0.06 can | | | | | | reflect a pre-infarct | | | | | | acute coronary syndrome, | | | | | | but can also reflect | | | | | | myocardial necrosis or | | | | | | injury that is not due | | | | | | to coronary artery | | | | | | disease. Some of these | | | | | | causes are sepsis, | | | | | | hypocolemia, atrial | | | | | | fibrillation, heart | | | | | | failure, pulmonary | | | | | | embolism, myocarditis, | | | | | | myocardial contusion, | | | | | | and renal failure. The | | | | | | diagnosis of myocardial | | | | | | infarction should be | | | | | | based on a combination | | | | | | of the patient's | | | | | | clinical presentation | | | | | | and the clinical | | | | | | laboratory test results | | | | | | (especially serial | | | | | | troponin levels). | | | | + + + + + + + + | Specimen | + + | Blood | + + + + + + + | Performing | Address | City/State/Zipcode | Phone Number | | Organization | | | | + + + + + | [facility] | [address] | [place] | [phone] | | [facility] | | [address] | | | - LABORATORY | | | | + + + + + POC Glucose (05/08/2017 11:41 AM PST) + +---------+ + + + | Component | Value | Ref Range | Performed | Pathologist | | | | | At | Signature | + +---------+ + + + | Glucose, | 116 (H) | 70 - 109 mg/dL | [facility] | | | [facility] | | | [facility] | | | | | | [facility]ICAL | | | | | | CENTER - | | | | | | LABORATORY | | + +---------+ + + + + + | Specimen | + + | Blood | + + + + + + + | Performing | Address | City/State/Zipcode | Phone Number | | Organization | | | | + + + + + | [facility] | [address] | [place] | [phone] | | [facility] | | [address] | | | - LABORATORY | | | | + + + + + Protime INR (05/08/2017 10:41 AM PST) + + + + + + | Component | Value | Ref Range | Performed | Pathologist | | | | | At | Signature | + + + + + + | Prothrombin | 13.9 | 11.3 - 13.9 | [facility] | | | Time | | seconds | [facility] | | | | | | MEDICAL | | | | | | CENTER - | | | | | | LABORATORY | | + + + + + + | INR | 1.08Comment: Usual Oral | 0.90 - 1.10 | [facility] | | | | Anticoagulation Range: | | [facility] | | | | 2.0 - 3.0High | | MEDICAL | | | | Level Oral | | CENTER - | | | | Anticoagulation Range: | | LABORATORY | | | | 2.5 - 3.5 | | | | + + + + + + + + | Specimen | + + | Blood | + + + + + + + | Performing | Address | City/State/Zipcode | Phone Number | | Organization | | | | + + + + + | [facility] | [address] | [place] | [phone] | | [facility] | | [address] | | | - LABORATORY | | | | + + + + + PTT (05/08/2017 10:41 AM PST) + + + + + + | Component | Value | Ref Range | Performed | Pathologist | | | | | At | Signature | + + + + + + | aPTT | 189 ()Comment: | 22 - 36 seconds | [facility] | | | | Critical Result called | | [facility] | | | | to and read back by | | MEDICAL | | | | Brii Barr RN on | | CENTER - | | | | 05/08/2017 at 11:57 by | | LABORATORY | | | | Kristen Akbar. | | | | + + + + + + + + | Specimen | + + | Blood | + + + + + + + | Performing | Address | City/State/Zipcode | Phone Number | | Organization | | | | + + + + + | [facility] | [address] | [place] | [phone] | | [facility] | | [address] | | | - LABORATORY | | | | + + + + + ECHO Complete (05/08/2017 9:59 AM PST) + +-------+ + + + | Component | Value | Ref Range | Performed | Pathologist | | | | | At | Signature | + +-------+ + + + | LVEF-TTE | 44 | | [facility] | | | TRANSTHORAC | | | | | | IC ECHO | | | | | + +-------+ + + + + + | Specimen | + + | | + + + +-- + | Narrative | P erformed At | + +-- + | Transthoracic | [facility] | | Echocardiography Report (TTE) Demographics Patient Name JARED | | | AMY Room Number 449 I | | | Patient Number [id number] Date of Study 05/08/2017 | | | Visit Number [id number] | | | Referring Physician NICOLE TSANG Number Date of | | | 1955 [employer] [facility] | | | Age 61 year(s) Interpreting | | | JOHNNY JOHNSON MD, | | | Re Dye Hand [facility] Gender Female | | | 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 Procedure | | | dateDate: 05/08/2017Start: 09:30 AM Technical Quality: Adequate | | | visualizationStudy Location: ICUIndications: Elevated Troponin Level | | | 790.5/R74.8.Patient Status: RoutineHeight: 64 inchesWeight: 135 | | | poundsBSA: 1.66 m^2BMI: 23.17 kg/m^2 ConclusionsSummaryThe number of | | | aortic valve leaflets cannot be identified.No evidence of aortic | | | stenosis.The left atrium is mildly dilated.Left Ventricular size | | | appears to be normal with an ejection fractionestimated at 40 | | | %.Akinesis of mid to distal anterior septumSevere anterior and apical | | | hypokinesisAortic root dimension within normal limits.Mild mitral | | | regurgitation.No evidence of any pericardial effusion.Normal right | | | atrial size.Normal right ventricular size and function.Mild tricuspid | | | regurgitation with velocity of 2.64 m/s, with an estimatedpulmonary | | | artery systolic pressure of 28 mmHg. | | | Signature | | | | | | PM | | | -------- FindingsMitral ValveMild mitral regurgitation.Aortic ValveThe | | | number of aortic valve leaflets cannot be identified.No evidence of | | | aortic stenosis.Tricuspid ValveMild tricuspid regurgitation with | | | velocity of 2.64 m/s, with an estimatedpulmonary artery systolic | | | pressure of 28 mmHg.Pulmonic ValveStructurally normal pulmonic valve | | | without significant stenosis orregurgitation.Left AtriumThe left | | | atrium is mildly dilated.Left VentricleLeft Ventricular size appears | | | to be normal with an ejection fractionestimated at 40 %.Akinesis of | | | mid to distal anterior septumSevere anterior and apical hypokinesis | | | Right AtriumNormal right atrial size.Right VentricleNormal right | | | ventricular size and function.Pericardial EffusionNo evidence of any | | | pericardial effusion. MiscellaneousAortic root dimension within normal | | | limits. Valves Aortic Valve Tricuspid Valve TR Velocity: 2.64 m/s | | | Structures Left Atrium LA A/P Dimension: 4.1 cm | | | LA Area: 12.3 cm^2 LA Vol/BSA Index: 23 mL/m^2 | | | LA Volume: 38.51 ml | | | EF Xqfddijas56% Left | | | Ventricle Diastolic Dimension: 4.9 cm Systolic Dimension: | | | 3.67 cm Septum Diastolic: 1.03 cm PW Diastolic: 1.13 cm EF | | | Calculated: 44% Miscellaneous Aorta Aortic Root: 3.27 cm Ascending | | | Aorta: 3.43 cm | | |Normal right ventricular size and function. | | |Mild tricuspid regurgitation with velocity of 2.64 m/s, with an estimated | | |pulmonary artery systolic pressure of 28 mmHg. | | | | | |Signature | | | | | | Electronically signed by OJHNNY JOHNSON MD, [facility](Interpreting | | | physician) on 05/08/2017 04:56 PM | | | | | | | | |Findings | | |Mitral Valve | | |Mild mitral regurgitation. | | |Aortic Valve | | |The number of aortic valve leaflets cannot be identified. | | |No evidence of aortic stenosis. | | |Tricuspid Valve | | |Mild tricuspid regurgitation with velocity of 2.64 m/s, with an estimated | | |pulmonary artery systolic pressure of 28 mmHg. | | |Pulmonic Valve | | |Structurally normal pulmonic valve without significant stenosis or | | |regurgitation. | | |Left Atrium | | |The left atrium is mildly dilated. | | |Left Ventricle | | |Left Ventricular size appears to be normal with an ejection fraction | | |estimated at 40 %. | | |Akinesis of mid to distal anterior septum | | |Severe anterior and apical hypokinesis | | | | | |Right Atrium | | |Normal right atrial size. | | |Right Ventricle | | |Normal right ventricular size and function. | | |Pericardial Effusion | | |No evidence of any pericardial effusion. | | | | | |Miscellaneous | | |Aortic root dimension within normal limits. | | | | | |Valves | | | | | | Aortic Valve | | | | | | Tricuspid Valve | | | | | | TR Velocity: 2.64 m/s | | | | | |Structures | | | | | | Left Atrium | | | | | | LA A/P Dimension: 4.1 cm LA Area: 12.3 cm^2 | | | LA Vol/BSA Index: 23 mL/m^2 LA Volume: 38.51 ml | | | EF Zpqshcdoz18% | | | | | | Left Ventricle | | | | | | Diastolic Dimension: 4.9 cm Systolic Dimension: 3.67 cm | | | Septum Diastolic: 1.03 cm | | | PW Diastolic: 1.13 cm | | | EF Calculated: 44% | | | | | | Miscellaneous | | | | | | Aorta | | | | | | Aortic Root: 3.27 cm | | | Ascending Aorta: 3.43 cm | | | | | + +-- + + + | Procedure Note | + + | Avelino, Rad Results In - 05/08/2017 4:56 PM [facility] Transthoracic Echocardiography Report | | (TTE) Demographics Patient Name JARED MONTAÑO Room Number 449 | | I Patient Number [id number] Date of Study 05/08/2017 Visit Number | | [id number] Referring Physician NICOLE TSANG Number | | 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[facility] Age | | 61 year(s) Interpreting JOHNNY JOHNSON MD, | | Re Dye Hand FAC Gender Female Nurse | | Stress TechnicianProcedureType of Study TTE procedure: ECHO Complete.Procedure | | dateDate: 05/08/2017Start: 09:30 AMTechnical Quality: Adequate visualizationStudy | | Location: ICUIndications: Elevated Troponin Level 790.5/R74.8.Patient Status: | | RoutineHeight: 64 inchesWeight: 135 poundsBSA: 1.66 m^2BMI: 23.17 | | kg/m^2ConclusionsSummaryThe number of aortic valve leaflets cannot be identified.No | | evidence of aortic stenosis.The left atrium is mildly dilated.Left Ventricular size | | appears to be normal with an ejection fractionestimated at 40 %.Akinesis of mid to | | distal anterior septumSevere anterior and apical hypokinesisAortic root dimension within | | normal limits.Mild mitral regurgitation.No evidence of any pericardial effusion.Normal | | right atrial size.Normal right ventricular size and function.Mild tricuspid | | regurgitation with velocity of 2.64 m/s, with an estimatedpulmonary artery systolic | | pressure of 28 | | mmHg.Signature | | -- Electronically signed by JOHNNY JOHNSON MD, [facility](Interpreting physician) on | | 05/08/2017 04:56 | | PM FindingsMi | | tral ValveMild mitral regurgitation.Aortic ValveThe number of aortic valve leaflets | | cannot be identified.No evidence of aortic stenosis.Tricuspid ValveMild tricuspid | | regurgitation with velocity of 2.64 m/s, with an estimatedpulmonary artery systolic | | pressure of 28 mmHg.Pulmonic ValveStructurally normal pulmonic valve without significant | | stenosis orregurgitation.Left AtriumThe left atrium is mildly dilated.Left | | VentricleLeft Ventricular size appears to be normal with an ejection fractionestimated | | at 40 %.Akinesis of mid to distal anterior septumSevere anterior and apical | | hypokinesisRight AtriumNormal right atrial size.Right VentricleNormal right ventricular | | size and function.Pericardial EffusionNo evidence of any pericardial | | effusion.MiscellaneousAortic root dimension within normal limits.Valves Aortic Valve | | Tricuspid Valve TR Velocity: 2.64 m/sStructures Left Atrium LA A/P Dimension: 4.1 cm | | LA Area: 12.3 cm^2 LA Vol/BSA Index: 23 mL/m^2 LA | | Volume: 38.51 ml EF Ckceihiic48% Left | | Ventricle Diastolic Dimension: 4.9 cm Systolic Dimension: 3.67 cm Septum | | Diastolic: 1.03 cm PW Diastolic: 1.13 cm EF Calculated: 44% Miscellaneous Aorta Aortic | | Root: 3.27 cm Ascending Aorta: 3.43 cm | |The number of aortic valve leaflets cannot be identified. | |No evidence of aortic stenosis. | |The left atrium is mildly dilated. | |Left Ventricular size appears to be normal with an ejection fraction | |estimated at 40 %. | |Akinesis of mid to distal anterior septum | |Severe anterior and apical hypokinesis | |Aortic root dimension within normal limits. | |Mild mitral regurgitation. | |No evidence of any pericardial effusion. | |Normal right atrial size. | |Normal right ventricular size and function. | |Mild tricuspid regurgitation with velocity of 2.64 m/s, with an estimated | |pulmonary artery systolic pressure of 28 mmHg. | | | |Signature | | | | Electronically signed by JOHNNY JOHNSON MD, [facility](Interpreting | | physician) on 05/08/2017 04:56 PM | | | | | |Findings | |Mitral Valve | |Mild mitral regurgitation. | |Aortic Valve | |The number of aortic valve leaflets cannot be identified. | |No evidence of aortic stenosis. | |Tricuspid Valve | |Mild tricuspid regurgitation with velocity of 2.64 m/s, with an estimated | |pulmonary artery systolic pressure of 28 mmHg. | |Pulmonic Valve | |Structurally normal pulmonic valve without significant stenosis or | |regurgitation. | |Left Atrium | |The left atrium is mildly dilated. | |Left Ventricle | |Left Ventricular size appears to be normal with an ejection fraction | |estimated at 40 %. | |Akinesis of mid to distal anterior septum | |Severe anterior and apical hypokinesis | | | |Right Atrium | |Normal right atrial size. | |Right Ventricle | |Normal right ventricular size and function. | |Pericardial Effusion | |No evidence of any pericardial effusion. | | | |Miscellaneous | |Aortic root dimension within normal limits. | | | |Valves | | | | Aortic Valve | | | | Tricuspid Valve | | | | TR Velocity: 2.64 m/s | | | |Structures | | | | Left Atrium | | | | LA A/P Dimension: 4.1 cm LA Area: 12.3 cm^2 | | LA Vol/BSA Index: 23 mL/m^2 LA Volume: 38.51 ml | | EF Vffytyhyl83% | | | | Left Ventricle | | | | Diastolic Dimension: 4.9 cm Systolic Dimension: 3.67 cm | | Septum Diastolic: 1.03 cm | | PW Diastolic: 1.13 cm | | EF Calculated: 44% | | | | Miscellaneous | | | | Aorta | | | | Aortic Root: 3.27 cm | | Ascending Aorta: 3.43 cm | + + + +---------+ + + | Performing | Address | City/State/Zipcode | Phone Number | | Organization | | | | + +---------+ + + | [facility] | | | | + +---------+ + + POC Glucose (05/08/2017 8:42 AM PST) + +---------+ + + + | Component | Value | Ref Range | Performed | Pathologist | | | | | At | Signature | + +---------+ + + + | Glucose, | 127 (H) | 70 - 109 mg/dL | [facility] | | | POC | | | [facility] | | | | | | MEDICAL | | | | | | CENTER - | | | | | | LABORATORY | | + +---------+ + + + + + | Specimen | + + | Blood | + + + + + + + | Performing | Address | City/State/Zipcode | Phone Number | | Organization | | | | + + + + + | [facility] | [address] | [place] | [phone] | | [facility] | | [address] | | | - LABORATORY | | | | + + + + + Troponin I (05/08/2017 6:49 AM PST) + + + + + + | Component | Value | Ref Range | Performed | Pathologist | | | | | At | Signature | + + + + + + | Troponin I | 3.93 ()Comment: | <0.06 ng/mL | [facility] | | | | Reference | | [facility] | | | | Ranges:0.00-0.06 = | | MEDICAL | | | | NORMAL>0.06 = | | CENTER - | | | | SUSPICIOUS FOR | | LABORATORY | | | | MYOCARDIAL DAMAGE NOTE: | | | | | | Values greater than 0.50 | | | | | | ng/mL have been shown | | | | | | to be strongly | | | | | | associated with acute | | | | | | myocardial infarction. | | | | | | The [employer] | | | | | | Cardiology (ACC) | | | | | | recommends a decision | | | | | | limit of 0.06 ng/mL for | | | | | | this assay. Results | | | | | | greater than 0.06 can | | | | | | reflect a pre-infarct | | | | | | acute coronary syndrome, | | | | | | but can also reflect | | | | | | myocardial necrosis or | | | | | | injury that is not due | | | | | | to coronary artery | | | | | | disease. Some of these | | | | | | causes are sepsis, | | | | | | hypocolemia, atrial | | | | | | fibrillation, heart | | | | | | failure, pulmonary | | | | | | embolism, myocarditis, | | | | | | myocardial contusion, | | | | | | and renal failure. The | | | | | | diagnosis of myocardial | | | | | | infarction should be | | | | | | based on a combination | | | | | | of the patient's | | | | | | clinical presentation | | | | | | and the clinical | | | | | | laboratory test results | | | | | | (especially serial | | | | | | troponin levels). | | | | | | Critical Result called | | | | | | to and read back by | | | | | | Roberth Perry on | | | | | | 05/08/2017 at 7:31 by | | | | | | Hoang Borrego. | | | | + + + + + + + + | Specimen | + + | Blood | + + + + + + + | Performing | Address | City/State/Zipcode | Phone Number | | Organization | | | | + + + + + | [facility] | [address] | [place] | [phone] | | [facility] | | [address] | | | - LABORATORY | | | | + + + + + Lactic Acid (05/08/2017 6:48 AM PST) + +-------+ + + + | Component | Value | Ref Range | Performed | Pathologist | | | | | At | Signature | + +-------+ + + + | Lactate | 1.4 | 0.5 - 2.2 | [facility] | | | | | mmol/L | [facility] | | | | | | MEDICAL | | | | | | CENTER - | | | | | | LABORATORY | | + +-------+ + + + + + | Specimen | + + | Blood | + + + + + + + | Performing | Address | City/State/Zipcode | Phone Number | | Organization | | | | + + + + + | [facility] | [address] | [place] | [phone] | | [facility] | | [address] | | | - LABORATORY | | | | + + + + + CBC no Differential (05/08/2017 6:48 AM PST) + + + + + + | Component | Value | Ref Range | Performed | Pathologist | | | | | At | Signature | + + + + + + | WBC | 14.6 (H) | 4.0 - 11.0 K/uL | [facility] | | | | | | [facility] | | | | | | MEDICAL | | | | | | CENTER - | | | | | | LABORATORY | | + + + + + + | RBC | 4.79 | 3.70 - 5.20 | [facility] | | | | | M/uL | [facility] | | | | | | MEDICAL | | | | | | CENTER - | | | | | | LABORATORY | | + + + + + + | Hemoglobin | 13.3 | 11.5 - 16.0 | [facility] | | | | | g/dL | [facility] | | | | | | MEDICAL | | | | | | CENTER - | | | | | | LABORATORY | | + + + + + + | Hematocrit | 40.9 | 34.0 - 47.0 % | [facility] | | | | | | [facility] | | | | | | MEDICAL | | | | | | CENTER - | | | | | | LABORATORY | | + + + + + + | MCV | 85.4 | 83.0 - 101.0 fL | [facility] | | | | | | [facility] | | | | | | MEDICAL | | | | | | CENTER - | | | | | | LABORATORY | | + + + + + + | MCH | 27.8 (L) | 28.0 - 35.0 pg | [facility] | | | | | | [facility] | | | | | | MEDICAL | | | | | | CENTER - | | | | | | LABORATORY | | + + + + + + | MCHC | 32.6 | 32.0 - 36.0 | [facility] | | | | | g/dL | [facility] | | | | | | MEDICAL | | | | | | CENTER - | | | | | | LABORATORY | | + + + + + + | RDW-CV | 13.3 | <15.0 % | [facility] | | | | | | [facility] | | | | | | MEDICAL | | | | | | CENTER - | | | | | | LABORATORY | | + + + + + + | Platelet | 277 | 140 - 440 K/uL | [facility] | | | Count | | | [facility] | | | | | | MEDICAL | | | | | | CENTER - | | | | | | LABORATORY | | + + + + + + | MPV | 8.5 | fL | [facility] | | | | | | [facility] | | | | | | MEDICAL | | | | | | CENTER - | | | | | | LABORATORY | | + + + + + + + + | Specimen | + + | Blood | + + + + + + + | Performing | Address | City/State/Zipcode | Phone Number | | Organization | | | | + + + + + | [facility] | [address] | [place] | [phone] | | [facility] | | [address] | | | - LABORATORY | | | | + + + + + Basic Metabolic Panel (05/08/2017 6:48 AM PST) + + + + + + | Component | Value | Ref Range | Performed | Pathologist | | | | | At | Signature | + + + + + + | Na | 137 | 136 - 149 | [facility] | | | | | mmol/L | [facility] | | | | | | MEDICAL | | | | | | CENTER - | | | | | | LABORATORY | | + + + + + + | K | 3.4 (L) | 3.5 - 5.1 | [facility] | | | | | mmol/L | [facility] | | | | | | MEDICAL | | | | | | CENTER - | | | | | | LABORATORY | | + + + + + + | Cl | 104 | 98 - 109 mmol/L | [facility] | | | | | | [facility] | | | | | | MEDICAL | | | | | | CENTER - | | | | | | LABORATORY | | + + + + + + | CO2 | 25 | 24 - 31 mmol/L | [facility] | | | | | | [facility] | | | | | | MEDICAL | | | | | | CENTER - | | | | | | LABORATORY | | + + + + + + | Anion Gap | 8 | 3 - 16 mmol/L | [facility] | | | | | | [facility] | | | | | | MEDICAL | | | | | | CENTER - | | | | | | LABORATORY | | + + + + + + | Glucose | 136 (H) | 70 - 109 mg/dL | [facility] | | | | | | [facility] | | | | | | MEDICAL | | | | | | CENTER - | | | | | | LABORATORY | | + + + + + + | BUN | 5 (L) | 7 - 18 mg/dL | [facility] | | | | | | [facility] | | | | | | MEDICAL | | | | | | CENTER - | | | | | | LABORATORY | | + + + + + + | Creatinine | 0.69 | 0.60 - 1.30 | [facility] | | | | | mg/dL | [facility] | | | | | | MEDICAL | | | | | | CENTER - | | | | | | LABORATORY | | + + + + + + | eGFR if not | >60Comment: GLOMERULAR | >=60 | [facility] | | | | FILTRATION | mL/min/1.73m2 | [facility] | | | LAO | RATE,ESTIMATED | | MEDICAL | | | | mL/min/1.75a1Qafw than | | CENTER - | | | | 60 Chronic kidney | | LABORATORY | | | | disease,if found over a | | | | | | 3-month period.Less than | | | | | | 15 Kidney failureFor | | | | | | | | | | | | Americans,multiply the | | | | | | calculated GFR by 1.21. | | | | | | | | | | + + + + + + | Calcium | 7.9 (L) | 8.3 - 10.5 | [facility] | | | | | mg/dL | [facility] | | | | | | MEDICAL | | | | | | CENTER - | | | | | | LABORATORY | | + + + + + + | BUN/Creatin | 7.2 | | [facility] | | | ine Ratio | | | [facility] | | | | | | MEDICAL | | | | | | CENTER - | | | | | | LABORATORY | | + + + + + + + + | Specimen | + + | Blood | + + + + + + + | Performing | Address | City/State/Zipcode | Phone Number | | Organization | | | | + + + + + | [facility] | [address] | [place] | [phone] | | [facility] | | [address] | | | - LABORATORY | | | | + + + + + PTT (05/08/2017 3:15 AM PST) + +-------+ + + + | Component | Value | Ref Range | Performed | Pathologist | | | | | At | Signature | + +-------+ + + + | aPTT | 26 | 22 - 36 seconds | [facility] | | | | | | [facility] | | | | | | MEDICAL | | | | | | CENTER - | | | | | | LABORATORY | | + +-------+ + + + + + | Specimen | + + | Blood | + + + + + + + | Performing | Address | City/State/Zipcode | Phone Number | | Organization | | | | + + + + + | [facility] | [address] | [place] | [phone] | | [facility] | | [address] | | | - LABORATORY | | | | + + + + + ECG 12 lead (05/08/2017 2:50 AM PST) + + + + + + | Component | Value | Ref Range | Performed | Pathologist | | | | | At | Signature | + + + + + + | VENTRICULAR | 91 | BPM | [facility] | | | RATE EKG | | | | | + + + + + + | ATRIAL RATE | 91 | BPM | [facility] | | + + + + + + | P-R | 160 | ms | [facility] | | | INTERVAL | | | | | + + + + + + | QRS | 78 | ms | [facility] | | | DURATION | | | | | + + + + + + | Q-T | 406 | ms | [facility] | | | INTERVAL | | | | | + + + + + + | Q-T | 499 | ms | [facility] | | | INTERVAL | | | | | | (CORRECTED) | | | | | + + + + + + | P WAVE AXIS | 69 | degrees | [facility] | | + + + + + + | QRS AXIS | 11 | degrees | [facility] | | + + + + + + | T AXIS | 61 | degrees | [facility] | | + + + + + + | INTERPRETAT | Normal sinus | | [facility] | | | ION TEXT | rhythmNonspecific ST | | | | | | abnormalityProlonged | | | | | | QTcAbnormal ECGNo | | | | | | previous ECGs | | | | | | availableConfirmed by | | | | | | LUCIO SU MD ([id number]) | | | | | | on 05/08/2017 8:24:47 AM | | | | + + + + + + + + | Specimen | + + | | + + + + + | Narrative | Performed At | + + + | | | + + + + +---------+ + + | Performing | Address | City/State/Zipcode | Phone Number | | Organization | | | | + +---------+ + + | [facility] | | | | + +---------+ + + Lactic Acid (05/08/2017 1:45 AM PST) + +---------+ + + + | Component | Value | Ref Range | Performed | Pathologist | | | | | At | Signature | + +---------+ + + + | Lactate | 3.1 (H) | 0.5 - 2.2 | [facility] | | | | | mmol/L | [facility] | | | | | | MEDICAL | | | | | | CENTER - | | | | | | LABORATORY | | + +---------+ + + + + + | Specimen | + + | Blood | + + + + + + + | Performing | Address | City/State/Zipcode | Phone Number | | Organization | | | | + + + + + | [facility] | [address] | [place] | [phone] | | [facility] | | [address] | | | - LABORATORY | | | | + + + + + Culture, Blood (05/08/2017 1:45 AM PST) + + + + + + | Component | Value | Ref Range | Performed | Pathologist | | | | | At | Signature | + + + + + + | Culture | No growth after 5 days | | [facility] | | | | incubation. | | [facility] | | | | | | MEDICAL | | | | | | CENTER - | | | | | | LABORATORY | | + + + + + + + + | Specimen | + + | Blood - Swab of line | | insertion site | | (specimen) | + + + + + + + | Performing | Address | City/State/Zipcode | Phone Number | | Organization | | | | + + + + + | [facility] | [address] | [place] | [phone] | | [facility] | | [address] | | | - LABORATORY | | | | + + + + + Troponin I (05/08/2017 1:30 AM PST) + + + + + + | Component | Value | Ref Range | Performed | Pathologist | | | | | At | Signature | + + + + + + | Troponin I | 2.91 ()Comment: | <0.06 ng/mL | [facility] | | | | Reference | | [facility] | | | | Ranges:0.00-0.06 = | | MEDICAL | | | | NORMAL>0.06 = | | CENTER - | | | | SUSPICIOUS FOR | | LABORATORY | | | | MYOCARDIAL DAMAGE NOTE: | | | | | | Values greater than 0.50 | | | | | | ng/mL have been shown | | | | | | to be strongly | | | | | | associated with acute | | | | | | myocardial infarction. | | | | | | The [employer] | | | | | | Cardiology (ACC) | | | | | | recommends a decision | | | | | | limit of 0.06 ng/mL for | | | | | | this assay. Results | | | | | | greater than 0.06 can | | | | | | reflect a pre-infarct | | | | | | acute coronary syndrome, | | | | | | but can also reflect | | | | | | myocardial necrosis or | | | | | | injury that is not due | | | | | | to coronary artery | | | | | | disease. Some of these | | | | | | causes are sepsis, | | | | | | hypocolemia, atrial | | | | | | fibrillation, heart | | | | | | failure, pulmonary | | | | | | embolism, myocarditis, | | | | | | myocardial contusion, | | | | | | and renal failure. The | | | | | | diagnosis of myocardial | | | | | | infarction should be | | | | | | based on a combination | | | | | | of the patient's | | | | | | clinical presentation | | | | | | and the clinical | | | | | | laboratory test results | | | | | | (especially serial | | | | | | troponin levels). | | | | | | Critical Result called | | | | | | to and read back by | | | | | | Roberth Perry on | | | | | | 05/08/2017 at 2:22 by | | | | | | Hoang Borrego. | | | | + + + + + + + + | Specimen | + + | Blood | + + + + + + + | Performing | Address | City/State/Zipcode | Phone Number | | Organization | | | | + + + + + | [facility] | [address] | [place] | [phone] | | [facility] | | [address] | | | - LABORATORY | | | | + + + + + Magnesium (05/08/2017 1:30 AM PST) + +-------+ + + + | Component | Value | Ref Range | Performed | Pathologist | | | | | At | Signature | + +-------+ + + + | Magnesium | 1.9 | 1.8 - 2.5 mg/dL | [facility] | | [facility] | | [facility] | | [facility] - | | | | | | [facility]ATORY | | + +-------+ + + + + + | Specimen | + + | Blood | + + + + + + + | Performing | Address | City/State/Zipcode | Phone Number | | Organization | | | | + + + + + | [facility] | [address] | [place] | [phone] | | [facility] | | [address] | | | - LABORATORY | | | | + + + + + Culture, Blood (05/08/2017 1:19 AM PST) + + + + + + | Component | Value | Ref Range | Performed | Pathologist | | | | | At | Signature | + + + + + + | Culture | No growth after 5 days | | [facility] | | | | incubation. | | [facility] | | | | | | [facility] | | | | | | [facility] - | | | | | | LABORATORY | | + + + + + + + + | Specimen | + + | Blood - Peripheral | | blood specimen | | (specimen) | + + + + + + + | Performing | Address | City/State/Zipcode | Phone Number | | Organization | | | | + + + + + | [facility] | [address] | [place] | [phone] | | [facility] | | [address] | | | - LABORATORY | | | | + + + + + POC Blood Gases (05/08/2017 1:13 AM PST) + + + + + + | Component | Value | Ref Range | Performed | Pathologist | | | | | At | Signature | + + + + + + | Specimen | Artery | | [facility] | | | Source | | [facility] | [facility] | [facility] | | | | | | C[facility] - | | | | | | LABORATORY | | + + + + + + | pH, POC | 7.291 (L) | 7.3 - 7.45 | [facility] | | | | | | [facility] | | | | | | [facility] | | | | | | CENTER - | | | | | | LABORATORY | | + + + + + + | HCO3, POC | 26.5 | 21.0 - 28.0 | [facility] | | | | | mmol/L | [facility] | | | | | | [facility] | | | | | | CENTER - | | | | | | LABORATORY | | + + + + + + | TCO2, POC | 28.2 | 22.0 - 29.0 | [facility] | | | | | mmol/L | [facility] | | | | | | [facility]ICAL | | | | | | CENTER - | | | | | | LABORATORY | | + + + + + + | Base | -1.0 | -2.0 - 3.0 | [facility] | | | Excess, POC | | mmol/L | [facility] | | | | | | [facility]ICAL | | | | | | CENTER - | | | | | | LABORATORY | | + + + + + + | Base | -0.1 | -2.0 - 3.0 | [facility] | | | Excess, | | mmol/L | [facility] | | | Extracellul | | | MEDICAL | | | ar fluid, | | | CENTER - | | | POC | | | LABORATORY | | + + + + + + | O2 Sat, POC | 98 | 90 - 100 % | [facility] | | | | | | [facility] | | | | | | [facility]ICAL | | | | | | CENTER - | | | | | | LABORATORY | | + + + + + + | PCO2, POC | 55.1 (H) | 35.0 - 45 mmHg | [facility] | | | | | | [facility] | | | | | | [facility] | | | | | | CENTER - | | | | | | LABORATORY | | + + + + + + | pO2, POC | 111.7 | 60 - 750.0 mmHg | [facility] | | | | | | [facility] | | | | | | [facility]ICAL | | | | | | CENTER - | | | | | | LABORATORY | | + + + + + + + + | Specimen | + + | | + + + + + + + | Performing | Address | City/State/Zipcode | Phone Number | | Organization | | | | + + + + + | [facility] | [address] | [place] | [phone] | | [facility] | | [address] | | | - LABORATORY | | | | + + + + + XR Chest AP Portable (05/08/2017 12:41 AM PST) + + | Specimen | + + | | + + + + + | Narrative | Performed At | + + + | XR CHEST AP PORTABLE 05/08/2017 12:32 AM HISTORY: intubation. | [facility] | | COMPARISON: None. Findings: Heart is normal in size. Lungs are | | | clear and no evidence of pneumothorax or pleural effusion. | | | Borderline/subtle bilateral suprahilar areas of interstitial fullness | | | and questionable peribronchial wall thickening. Bones and soft | | | tissues demonstrate no acute abnormality. NG tube tip courses into the | | | gastric body with the tip terminating in the gastric fundus. | | | Multilevel thoracic spondylosis. IMPRESSION - Endotracheal tube | | | terminates in the mid/distal intrathoracic trachea, approximately | | | 2.7 cm in the luis alberto. Borderline slight peribronchial wall | | | thickening in bilateral suprahilar regions, nonspecific with subtle | | | infectious or inflammatory etiology considered in the appropriate | | | clinical setting. Dictated and Signed by: Haider Hernandez MD | | | Electronically signed: 05/08/2017 12:37 PM | | + + + + + | Procedure Note | + + | Avelino, Rad Results In - 05/08/2017 12:40 PM PST XR CHEST AP PORTABLE 05/08/2017 12:32 [...] 05/08/2017 12:37 PM | + + + +---------+ + + | Performing | Address | City/State/Zipcode | Phone Number | | Organization | | | | + +---------+ + + | [facility] | | | | + +---------+ + + Culture, MRSA (05/08/2017 12:32 AM PST) + + + + + + | Component | Value | Ref Range | Performed | Pathologist | | | | | At | Signature | + + + + + + | Culture | Negative for MRSA by | | [facility] | | | | chromogenic agar method | | [facility] | | | | | | [facility]ICAL | | | | | | CENTER - | | | | | | LABORATORY | | + + + + + + | Culture | 3+ Coagulase positive | | [facility] | | | | Staphylococcus | | [facility] | | | | | | MEDICAL | | | | | | CENTER - | | | | | | LABORATORY | | + + + + + + + + | Specimen | + + | Respiratory - Both | | anterior nares (body | | structure) | + + + + + + + | Performing | Address | City/State/Zipcode | Phone Number | | Organization | | | | + + + + + | [facility] | [address] | [place] | [phone] | | [facility] | | [address] | | | - LABORATORY | | | | + + + + + LABS - EXTERNAL SCAN (05/07/2017 12:00 AM PST) + + + | Narrative | Performed At | + + + | Ordered by an | | | unspecified provider. | | + + + IMAGING REPORT - EXTERNAL SCAN (05/07/2017 12:00 AM PST) + + + | Narrative | Performed At | + + + | Ordered by an | | | unspecified provider. | | + + + IMAGING REPORT - EXTERNAL SCAN (05/07/2017 12:00 AM PST) + + + | Narrative | Performed At | + + + | Ordered by an | | | unspecified provider. | | + + + IMAGING REPORT - EXTERNAL SCAN (05/07/2017 12:00 AM PST) + + + | Narrative | Performed At | + + + | Ordered by an | | | unspecified provider. | | + + + ECG - EXTERNAL SCAN (05/07/2017 12:00 AM PST) + + + | Narrative | Performed At | + + + | Ordered by an | | | unspecified provider. | | + + + documented in this encounter Visit Diagnoses Not on filedocumented in this encounter Administered Medications + +--------+ +--------+------+------+ | Medication Order | MAR | Action | Dose | Rate | Site | | | Action | Date | | | | + +--------+ +--------+------+------+ | acetaminophen (TYLENOL) tablet | Given | 05/10/19 | 650 mg | | | | 650 mg 650 mg, Oral, EVERY 4 | | 18 7:48 | | | | | HOURS PRN, Pain, Starting Sun | | PM PST | | | | | 05/08/17 at 1503 | | | | | | + +--------+ +--------+------+------+ +-------+ +--------+---+---+ | Given | 05/09/19 | 650 mg | | | | | 18 9:59 | | | | | | AM PST | | | | +-------+ +--------+---+---+ | Given | 05/09/19 | 650 mg | | | | | 18 5:53 | | | | | | AM PST | | | | +-------+ +--------+---+---+ +---+---+ | | | +---+---+ + +-------+ +-------+---+---+ | albuterol-ipratropium (DUONEB) | Given | 05/11/19 | 3 mLs | | | | 2.5-0.5 mg/3 mL nebulizer | | 18 3:09 | | | | | solution 3 mL 3 mL, | | PM PST | | | | | Nebulization, RT Q6H, First dose | | | | | | | on 05/08/17 at 0300 | | | | | | + +-------+ +-------+---+---+ +-------+ +-------+---+---+ | Given | 05/11/19 | 3 mLs | | | | | 18 8:30 | | | | | | AM PST | | | | +-------+ +-------+---+---+ | Given | 05/11/19 | 3 mLs | | | | | 18 3:21 | | | | | | AM PST | | | | +-------+ +-------+---+---+ +---+---+ | | | +---+---+ + +-------+ +--------+---+---+ | aluminum & magnesium | Given | 05/08/19 | 30 mLs | | | | hydroxide-simethicone (MAALOX | | 18 6:55 | | | | | PLUS REGULAR STRENGTH) 200-200-20 | | PM PST | | | | | mg/5 mL suspension 30 mL 30 mL, | | | | | | | Oral, EVERY 4 HOURS PRN, | | | | | | | Indigestion, Starting 05/08/17 | | | | | | | at 1838, Andrei marcum., | | | | | | + +-------+ +--------+---+---+ +---+---+ | | | +---+---+ + +-------+ +-------+---+---+ | aspirin chewable tablet 81 mg | Given | 05/11/19 | 81 mg | | | | 81 mg, Oral, DAILY, First dose on | | 18 8:40 | | | | | 05/08/17 at 1745 | | AM PST | | | | + +-------+ +-------+---+---+ +-------+ +-------+---+---+ | Given | 05/10/19 | 81 mg | | | | | 18 8:16 | | | | | | AM PST | | | | +-------+ +-------+---+---+ | Given | 05/09/19 | 81 mg | | | | | 18 8:36 | | | | | | AM PST | | | | +-------+ +-------+---+---+ +---+---+ | | | +---+---+ + +-------+ +-------+---+---+ | atorvaSTATin (LIPITOR) tablet | Given | 05/10/19 | 80 mg | | | | 80 mg 80 mg, Per OG Tube, | | 18 8:53 | | | | | NIGHTLY, First dose on Sun | | PM PST | | | | | 05/08/17 at 0400 | | | | | | + +-------+ +-------+---+---+ +-------+ +-------+---+---+ | Given | 05/09/19 | 80 mg | | | | | 18 9:01 | | | | | | PM PST | | | | +-------+ +-------+---+---+ | Given | 05/08/19 | 80 mg | | | | | 18 10:59 | | | | | | PM PST | | | | +-------+ +-------+---+---+ +---+---+ | | | +---+---+ + +---------+ +--------+-------+---+ | azithromycin (ZITHROMAX) 500 mg | New Bag | 05/11/19 | 500 mg | 255 | | | in sodium chloride 0.9% 250 mL | | 18 8:42 | | mL/hr | | | IVPB 500 mg, Intravenous, | | AM PST | | | | | Administer over 1 Hours, DAILY, | | | | | | | First dose on 05/08/17 at | | | | | | | 0900, Keep in refrigerator., | | | | | | | Indications: Bronchitis | | | | | | + +---------+ +--------+-------+---+ +---------+ +--------+-------+---+ | New Bag | 05/10/19 | 500 mg | 255 | | | | 18 9:15 | | mL/hr | | | | AM PST | | | | +---------+ +--------+-------+---+ | New Bag | 05/09/19 | 500 mg | 255 | | | | 18 8:36 | | mL/hr | | | | AM PST | | | | +---------+ +--------+-------+---+ +---+---+ | | | +---+---+ + +-------+ +--------+---+---+ | buPROPion (WELLBUTRIN SR) 12 hr | Given | 05/11/19 | 150 mg | | | | tablet 150 mg 150 mg, Oral, | | 18 8:40 | | | | | TIMES DAILY, First dose on Tue | | AM PST | | | | | 05/10/17 at 0900, Do not cut or | | | | | | | crush., | | | | | | + +-------+ +--------+---+---+ +-------+ +--------+---+---+ | Given | 05/10/19 | 150 mg | | | | | 18 8:53 | | | | | | PM PST | | | | +-------+ +--------+---+---+ | Given | 05/10/19 | 150 mg | | | | | 18 8:16 | | | | | | AM PST | | | | +-------+ +--------+---+---+ + +---+ | | | + +---+ | dextrose 50% injection 12.5 g | | | 12.5 g, Intravenous, PRN, Low | | | Blood Sugar, Starting 05/08/17 | | | at 0529 | | + +---+ | | | + +---+ + +-------+ +--------+---+---+ | docusate sodium (COLACE) | Given | 05/11/19 | 100 mg | | | | capsule 100 mg 100 mg, Oral, 2 | | 18 8:40 | | | | | TIMES DAILY, First dose on Tue | | AM PST | | | | | 05/10/17 at 1400, Swallow capsule | | | | | | | whole., | | | | | | + +-------+ +--------+---+---+ +-------+ +--------+---+---+ | Given | 05/10/19 | 100 mg | | | | | 18 8:53 | | | | | | PM PST | | | | +-------+ +--------+---+---+ | Given | 05/10/19 | 100 mg | | | | | 18 2:49 | | | | | | PM PST | | | | +-------+ +--------+---+---+ +---+---+ | | | +---+---+ + +-------+ +--------+---+---+ | heparin 1,000 units/mL | Given | 05/09/19 | 4,000 | | | | injection ONCE PRN, Starting Mon | | 18 1:43 | Units | | | | 05/09/17 at 1343, Intra-op | | PM PST | | | | + +-------+ +--------+---+---+ +---+---+ | | | +---+---+ + +-------+ +--------+---+ + | heparin 5,000 units/mL | Given | 05/11/19 | 5,000 | | Abdomen- | | injection 5,000 Units 5,000 | | 18 8:39 | Units | | LLQ | | Units, Subcutaneous, EVERY 12 | | AM PST | | | | | HOURS (2 times per day), First | | | | | | | dose on Tue05/10/17 at 0900 | | | | | | + +-------+ +--------+---+ + +-------+ +--------+---+ + | Given | 05/10/19 | 5,000 | | Abdomen- | | | 18 8:53 | Units | | RUQ | | | PM PST | | | | +-------+ +--------+---+ + | Given | 05/10/19 | 5,000 | | Abdomen- | | | 18 8:16 | Units | | RUQ | | | AM PST | | | | +-------+ +--------+---+ + +---+---+ | | | +---+---+ + +-------+ +--------+---+---+ | iohexol (OMNIPAQUE 350) 350 | Given | 05/09/19 | 65 mLs | | | | mg/mL injection ONCE PRN, | | 18 1:53 | | | | | Starting Tue05/09/17 at 1353, | | PM PST | | | | | Intra-op | | | | | | + +-------+ +--------+---+---+ +---+---+ | | | +---+---+ + +-------+ +---------+---+ + | lidocaine 1% injection ONCE | Given | 05/09/19 | 0.5 mLs | | Surgical | | PRN, Starting Tue05/09/17 at | | 18 1:38 | | | Site | | 1338, Intra-op | | PM PST | | | | + +-------+ [...] 10 minutes of | | | manual compression., | | + +---+ | | | + +---+ + +-------+ +-------+---+---+ | lisinopril (PRINIVIL, ZESTRIL) | Given | 05/11/19 | 10 mg | | | | tablet 10 mg 10 mg, Oral, DAILY, | | 18 8:40 | | | | | First dose on Tue05/09/17 at | | AM PST | | | | | 1500 | | | | | | + +-------+ +-------+---+---+ +-------+ +-------+---+---+ | Given | 05/10/19 | 10 mg | | | | | 18 8:16 | | | | | | AM PST | | | | +-------+ +-------+---+---+ | Given | 05/09/19 | 10 mg | | | | | 18 3:07 | | | | | | PM PST | | | | +-------+ +-------+---+---+ + +---+ | | | + +---+ | nicotine (NICODERM) 21 mg/24 hr | | | 1 patch 1 patch, Transdermal, | | | DAILY PRN, Nicotine Craving, | | | Starting 05/08/17 at 2048 | | + +---+ | | | + +---+ + +-------+ +--------+---+---+ | nitroglycerin (NITROSTAT) SL | Given | 05/09/19 | 0.4 mg | | | | tablet 0.4 mg 0.4 mg, | | 18 11:49 | | | | | Sublingual, EVERY 5 MIN PRN, | | AM PST | | | | | Chest pain, Starting 05/09/17 | | | | | | | at 1135, Maximum of 3 doses in 15 | | | | | | | minutes., | | | | | | + +-------+ +--------+---+---+ + + +--------+---+---+ | Given by Other | 05/09/19 | 0.4 mg | | | | | 18 11:44 | | | | | | AM PST | | | | + + +--------+---+---+ | Given | 05/09/19 | 0.4 mg | | | | | 18 11:38 | | | | | | AM PST | | | | + + +--------+---+---+ +---+---+ | | | +---+---+ + +-------+ +---------+---+---+ | nitroglycerin 100 mcg/mL | Given | 05/09/19 | 300 mcg | | | | syringe ONCE PRN, Starting Mon | | 18 1:40 | | | | | 05/09/17 at 1340, Intra-op | | PM PST | | | | + +-------+ +---------+---+---+ +---+---+ | | | +---+---+ + +-------+ +------+---+---+ | ondansetron (ZOFRAN) injection | Given | 05/10/19 | 4 mg | | | | 4 mg 4 mg, Intravenous, EVERY 6 | | 18 2:51 | | | | | HOURS PRN, Nausea, Starting Sun | | AM PST | | | | | 05/08/17 at 0059, First line | | | | | | | agent, | | | | | | + +-------+ +------+---+---+ +-------+ +------+---+---+ | Given | 05/09/19 | 4 mg | | | | | 18 9:52 | | | | | | AM PST | | | | +-------+ +------+---+---+ | Given | 05/09/19 | 4 mg | | | | | 18 2:06 | | | | | | AM PST | | | | +-------+ +------+---+---+ +---+---+ | | | +---+---+ + +-------+ +------+---+---+ | oxybutynin (DITROPAN) tablet 5 | Given | 05/11/19 | 5 mg | | | | mg 5 mg, Oral, 2 TIMES DAILY | | 18 4:02 | | | | | BEFORE MEALS, First dose on Tue | | PM PST | | | | | 05/10/17 at 0800, Give on an empty | | | | | | | stomach., | | | | | | + +-------+ +------+---+---+ +-------+ +------+---+---+ | Given | 05/11/19 | 5 mg | | | | | 18 7:02 | | | | | | AM PST | | | | +-------+ +------+---+---+ | Given | 05/10/19 | 5 mg | | | | | 18 4:57 | | | | | | PM PST | | | | +-------+ +------+---+---+ +---+---+ | | | +---+---+ + +-------+ +-------+---+---+ | pantoprazole (PROTONIX) DR | Given | 05/11/19 | 40 mg | | | | tablet 40 mg 40 mg, Oral, DAILY | | 18 7:02 | | | | | BEFORE BREAKFAST, First dose on | | AM PST | | | | | 05/09/17 at 1645, Do not cut | | | | | | | or crush., | | | | | | + +-------+ +-------+---+---+ +-------+ +-------+---+---+ | Given | 05/10/19 | 40 mg | | | | | 18 6:48 | | | | | | AM PST | | | | +-------+ +-------+---+---+ +---+---+ | | | +---+---+ + +-------+ +-------+---+---+ | predniSONE (DELTASONE) tablet | Given | 05/11/19 | 40 mg | | | | 40 mg 40 mg, Oral, DAILY, First | | 18 8:40 | | | | | dose on 05/11/17 at 0900 | | AM PST | | | | + +-------+ +-------+---+---+ +---+---+ | | | +---+---+ + +-------+ +-------+---+---+ | prochlorperazine (COMPAZINE) | Given | 05/08/19 | 10 mg | | | | injection 10 mg 10 mg, | | 18 8:57 | | | | | Intravenous, EVERY 6 HOURS PRN, | | PM PST | | | | | Nausea, Vomiting, Starting Sun | | | | | | | 05/08/17 at 2047 | | | | | | + +-------+ +-------+---+---+ +---+---+ | | | +---+---+ + +-------+ +-------+---+---+ | propranolol (INDERAL) tablet 80 | Given | 05/11/19 | 80 mg | | | | mg 80 mg, Oral, DAILY, First | | 18 8:40 | | | | | dose on 05/08/17 at 1530 | | AM PST | | | | + +-------+ +-------+---+---+ +-------+ +-------+---+---+ | Given | 05/10/19 | 80 mg | | | | | 18 8:16 | | | | | | AM PST | | | | +-------+ +-------+---+---+ | Given | 05/09/19 | 80 mg | | | | | 18 9:59 | | | | | | AM PST | | | | +-------+ +-------+---+---+ +---+---+ | | | +---+---+ + +-------+ +------+---+---+ | verapamil injection ONCE PRN, | Given | 05/09/19 | 3 mg | | | | Starting Tue05/09/17 at 1339, | | 18 1:39 | | | | | Intra-op | | PM PST | | | | + +-------+ +------+---+---+ +---+---+ | | | +---+---+ + +-------+ +------+---+---+ | zolpidem (AMBIEN) tablet 5 mg | Given | 05/11/19 | 5 mg | | | | 5 mg, Oral, NIGHTLY PRN, | | 18 2:09 | | | | | Insomnia, Starting Tue05/09/17 at | | AM PST | | | | | 0218 | | | | | | + +-------+ +------+---+---+ +-------+ +------+---+---+ | Given | 05/09/19 | 5 mg | | | | | 18 2:27 | | | | | | AM PST | | | | +-------+ +------+---+---+ +---+---+ | | | +---+---+ documented in this encounter
--- OUTSIDE RECORDS SUMMARY | ~2019-01-22 | XMS | Encounter Summary ---
Demographics + + + | Address | [address] | | | [place] [address] | + + + | Home Phone | | + + + | Preferred Language | Unknown | + + + | Marital Status | | + + + | Voodoo Affiliation | 1028 | + + + | Race | Unknown | + + + | Ethnic Group | Unknown | + + + Author + + + | Author | [facility] | | | and [place] | + + + | Organization | [facility] | | | and [place] | + + + | Address | Unknown | + + + | Phone | Unavailable | + + + Support + + + + + | Name | Relationship | Address | Phone | + + + + + | Joseluis Desai | ECON | [place] | | | | | [address] | | + + + + + | Mila Desai | ECON | Unknown | | + + + + + Care Team Providers + +------+ + | Care Marketing Analytics Lead Name | Role | Phone | + +------+ + | Bry Vaughn DO | PCP | | + +------+ + Encounter Details +--------+ + + + + | Date | Type | Department | Care Team | Description | +--------+ + + + + | 10/14/ | Imaging | [facility] | Provider, | | | 2018 | Exam | [facility] | [facility] [address] | | | | | IMAGING | [place] | | | | | [phone] | [place] [address] | | +--------+ + + + + Social History + +-------+ +--------+------+ | Tobacco Use | Types | Packs/Day | Years | Date | | | | | Used | | + +-------+ +--------+------+ | Never Assessed | | | | | + +-------+ +--------+------+ + + + | Sex Assigned at [...] + + documented as of this encounter Plan of Treatment +--------+---------+ + + + | Date | Type | Specialty | Care Team | Description | +--------+---------+ + + + | 06/26/ | Office | Cardiology | Aaron Zimmerman, | | | 2019 | Visit | | MD [address] | | | | | | [place] | | | | | | [address] | | | | | | | | +--------+---------+ + + + documented as of this encounter Procedures + +--------+ + + + | Procedure Name | Priori | Date/Time | Associated Diagnosis | Comments | | | ty | | | | + +--------+ + + + | XR CHEST 1 VIEW | Routin | 05/07/2017 | | Results for this | | | e | 7:25 PM | | procedure are in the | | | | PST | | results section. | + +--------+ + + + documented in this encounter Results XR Chest 1 Vw (05/07/2017 7:25 PM PST) + + | Specimen | + + | | + + + + + | Narrative | Performed At | + + + | External films for comparison only | [facility] | | | | | No results will be in the chart. | | + + + + +---------+ + + | Performing | Address | City/State/Zipcode | Phone Number | | Organization | | | | + +---------+ + + | [facility] | | | | + +---------+ + + documented in this encounter Visit Diagnoses Not on filedocumented in this encounter"
--- OUTSIDE RECORDS SUMMARY | ~2019-01-22 | XMS | Encounter Summary ---
Demographics + + + | Address | [address] | | | [place] [address] | + + + | Home Phone | | + + + | Preferred Language | Unknown | + + + | Marital Status | | + + + | Buddhist Affiliation | 1028 | + + + | Race | Unknown | + + + | Ethnic Group | Unknown | + + + Author + + + | Author | [facility] | | | and [place] | + + + | Organization | [facility] | | | and [place] | + + + | Address | Unknown | + + + | Phone | Unavailable | + + + Support + + + + + | Name | Relationship | Address | Phone | + + + + + | Joseluis Desai | ECON | [place] | | | | | [address] | | + + + + + | Mila Desai | ECON | Unknown | | + + + + + Care Team Providers + +------+ + | Care Weed Control Inspector Name | Role | Phone | + +------+ + | Bry Vaughn DO | PCP | | + +------+ + Reason for Visit + + + | Reason | Comments | + + + | Follow-up, Office | 6 month follow up | | Visit | | + + + Evaluate & Treat (Routine) +--------+--------+ + + + + | Status | Reason | Specialty | Diagnoses / | Referred By | Referred To | | | | | Procedures | Contact | Contact | +--------+--------+ + + + + | Closed | | Pulmonary | Diagnoses | Roderick, | Isiah, | | | | Disease / | Chronic | DO Bry | MD Tyree | | | | Pulmonology | obstructive | [address] | [address] | | | | | pulmonary | Onel Landa | [place], | | | | | disease, | [address] | [place] [address] | | | | | unspecified | [place], | Phone: | | | | | ([facility]) | [place] | [phone] | | | | | Procedures | [address] | Fax: | | | | | F/U DOMO COBB | Phone: | [phone] | | | | | MIDLRED JOYCE | [phone] | | | | | | 06/30/18 | Fax: | | | | | | | [phone] | | +--------+--------+ + + + + Encounter Details +--------+---------+ + + + | Date | Type | Department | Care Team | Description | +--------+---------+ + + + | 08/04/ | Office | [facility] | Tyree Joyce, | COPD, moderate (HCC) | | 2019 | Visit | PULMONARY [address] | MD [address] | (Primary Dx) | | | | [place], | [place] | | | | | [place] [address] | [address] | | | | | [phone] | | | +--------+---------+ + + + Social History + +-------+ +--------+ + | Tobacco Use | Types | Packs/Day | Years | Date | | | | | Used | | + +-------+ +--------+ + | Former Smoker | | 1 | 50 | 05/08/1966 - | | | | | | 04/14/2016 | + +-------+ +--------+ + + +---+---+---+ | Smokeless Tobacco: | | | | | Never Used | | | | + +---+---+---+ + + +---------+ + | Alcohol Use | Drinks/Week | oz/Week | Comments | + + +---------+ + | Not Currently | | | Recovering alcoholic | | | | | (patient denies), | | | | | would consume a box | | | [...] + + + | Blood Pressure | 120/82 | 08/04/2018 2:25 PM | | | | | PDT | | + + + + + | Pulse | 66 | 08/04/2018 2:25 PM | | | | | PDT | | + + + + + | Temperature | - | - | | + + + + + | Respiratory Rate | 20 | 08/04/2018 2:25 PM | | | | | PDT | | + + + + + | Oxygen Saturation | 96% | 08/04/2018 2:25 PM | | | | | PDT | | + + + + + | Inhaled Oxygen | - | - | | | Concentration | | | | + + + + + | Weight | 72 kg (158 lb 11.7 | 08/04/2018 2:25 PM | | | | oz) | PDT | | + + + + + | Height | 165.1 cm (5' 5") | 08/04/2018 2:25 PM | | | | | PDT | | + + + + + | Body Mass Index | 26.41 | 08/04/2018 2:25 PM | | | | | PDT | | + + + + + documented in this encounter Patient Instructions Patient Instructions Tyree Joyce MD - 08/04/2018 2:30 PM PDT Influenza (Adult) Please get high dose flu shot in 2018. Influenza is also called the flu. It is a viral illness that affects the air passages of yo ur lungs. It is different from the common cold. The flu can easily be passed from one to per son to another. It may be spread through the air by coughing and sneezing. Or it can be spre ad by touching the sick person and then touching your own eyes, nose, or mouth. The flu starts 1 to 3 days after you are exposed to the flu virus. It may lastfor 1 to 2 weeks but many people feel tired or fatigued for many weeks afterward. You usually don t n eed to take antibiotics unless you have a complication. This might be an ear or sinus infect ion or pneumonia. Symptoms of the flu may be mild or severe. They can include extreme tiredness (wanting to s leodan in bed all day), chills, fevers, muscle aches, soreness with eye movement, headache, and a dry, hacking cough. Home care Follow these guidelines when caring for yourself at home: Avoid being around cigarette smoke, whether yours or other people s. Acetaminophen or ibuprofen will help ease your fever, muscle aches, and headache. Don t give aspirin to anyone younger than 18 who has the flu. Aspirin can harm the liver. Nausea and loss of appetite are common with the flu. Eat light meals. Drink 6 to 8 glass es of liquids every day. Good choices are water, sport drinks, soft drinks without caffeine, juices, tea, and soup. Extra fluids will also help loosen secretions in your nose and lungs . Qhnq-fxl-klwpxmc cold medicines will not make the flu go away faster. But the medicines may help with coughing, sore throat, and congestion in your nose and sinuses. Don t use a decongestant if you have high blood pressure. Stay home until your fever has been gone for at least 24 hours without using medicine to reduce fever. Follow-up care Follow up with your healthcare provider, or as advised, if you are not getting better over the next week. If you are age 65 or older, talk with your provider about getting a pneumococcal vaccine ev kendra 5 years. You should also get this vaccine if you have chronic asthma or COPD. All adults should get a flu vaccine every fall. Ask your provider about this. When to seek medical advice Call your healthcare provider right away if any of these occur: Cough with lots of colored mucus (sputum) or blood in your mucus Chest pain, shortness of breath, wheezing, or trouble breathing Severe headache, or face, neck, or ear pain New rashwith fever Fever of 100.4F (38C)or higher, or asdirected by your healthcare provider Confusion, behavior change, or seizure Severe weakness or dizziness You get a newfever or cough after getting better for a few days Date Last Reviewed: 03/14/201619994141-1279 [employer]. [address] [place] [address]. All righ ts reserved. This information is not intended as a substitute for professional medical care. Always follow your healthcare professional's instructions. documented in this encounter Progress Notes Tyree Joyce MD - 08/04/2018 2:30 PM PDTFormatting of this note might be different f rom the original. Pulmonary Follow Up 08/04/2018 HPI Amy Coleman is a 63 y.o. female patient of Bry Vaughn, DO here today for follow u p of moderate COPD. The last pulmonary clinic visit was on 12/30/2017. Since their last appointment they feel l vikash their breathing issues have been stable. They have not had any acute pulmonary illnesses. The patient has not required a prednisone taper since our last clinic appointment. Likewise Amy has not required antibiotics for a COPD exacerbation since our last clinic appointment. The patient remains abstinent tobacco . Since her last clinic appointment related to insurance preference Breo was discontinued and the patient was placed on Dulera. Ms. Coleman has been using Dulera but most recently 2 pu ffs only once a day. The patient is currently on a daily regimen of Dulera 200/5 2 puffs once a day for their CO PD. They do feel like this medication regimen is/are controlling their symptoms. Currently she is using their short acting bronchodilator, Ventolin, 2 times a week. Amy does not cough chronically and does not produce mucous. They have not had hemoptysis since our last appointment. She has not been evaluated for nocturnal oxygen. They currently are not using nocturnal ox ygen. They have not reported recent symptoms of nasal congestion, runny nose or post nasal drip. The patient have received this year's influenza vaccination. They are up to date with thei r Pneumovax and Prevnar 13. Patient remains abstinent tobacco. 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 She started smoking about 52 years ago . She has a 50.00 pack-year smoking history. She has never used smokeless tobacco. She repor ts that she drank alcohol. She reports that she has current or past drug history. Drug: Sheela carranza. Allergies: Allergies Allergen Reactions Amoxicillin Cephalexin Hydroxyzine Hcl Penicillins Zantac [Ranitidine Hcl] Medications: Current Outpatient Medications: albuterol (VENTOLIN HFA) 90 mcg/puff inhaler, Inhale 2 puffs into the lungs every 4 ho urs as needed., Disp: , Rfl: albuterol 2.5 mg/3 mL nebulizer solution, Take 3 mLs by nebulization every 4 hours as needed., Disp: 360 vial, Rfl: 1 atorvaSTATin (LIPITOR) 40 mg tablet, Take 40 mg by mouth nightly., Disp: , Rfl: buPROPion (WELLBUTRIN SR) 150 mg 12 hr tablet, Take 150 mg by mouth 2 times daily., Di sp: , Rfl: carboxymethylcellulose (THERATEARS) 0.25% ophthalmic solution, Place 1 drop into both eyes Daily., Disp: , Rfl: ipratropium (ATROVENT) 500 mcg/2.5 mL nebulizer solution, Take 2.5 mLs by nebulization every 4 hours as needed., Disp: 225 mL, Rfl: lisinopril (PRINIVIL, ZESTRIL) 10 mg tablet, Take 1 tablet by mouth Daily., Disp: 30 t ablet, Rfl: 0 mometasone-formoterol (DULERA) 100-5 mcg/puff inhaler, Inhale 2 puffs into the lungs T wice Daily., Disp: 1 Inhaler, Rfl: 11 nitroglycerin (NITROSTAT) 0.4 mg SL tablet, Place 0.4 mg under the tongue every 5 marj khari as needed for Chest pain., Disp: , Rfl: oxybutynin (DITROPAN) 5 mg tablet, Take 5 mg by mouth 2 times daily., Disp: , Rfl: pantoprazole (PROTONIX) 40 mg tablet, Take 1 tablet by mouth every morning (before reema akfast)., Disp: 30 tablet, Rfl: 0 propranolol (INDERAL) 80 mg tablet, Take 80 mg by mouth Daily. For tremors, Disp: , Rf l: RA ASPIRIN CHILDRENS 81 MG chewable tablet, Take 81 mg by mouth Daily., Disp: , Rfl: 0 Immunizations: Immunization History Administered Date(s) Administered INFLUENZA PF QUAD(PED/ADOL/ADULT),PSKT or VIAL 10/30/2014, 11/19/2015, 10/28/2017 INFLUENZA PF TRIVALENT(PED/ADOL/ADULT), PSKT 12/28/2013, 04/28/2017 INFLUENZA, UNSPECIFIED FORMULATION 01/02/2009 INFLUENZA, W/Preservative 12/12/2013 PNEUMOCOCCAL CONJUGATE 13-VALENT (PCV13) 12/30/2017 PNEUMOCOCCAL POLYSACCHARIDE 23-VALENT (PPSV23) 01/07/2014 TD PF (2 LF TETANUS) (ADOL/ADULT) 04/01/2004 TDAP, (ADOL/ADULT) 07/12/2016, 04/28/2017 ZOSTER NON-LIVE (SHINGRIX) 10/28/2017, 06/19/2018 ZOSTER, 1 DOSE (ZOSTAVAX) 07/12/2016 Objective BP 120/82 | Pulse 66 | Resp 20 | Ht 1.651 m (5' 5") | Wt 72 kg (158 lb 11.7 oz) | SpO2 96% | ? No | BMI 26.41 kg/m Physical Exam Constitutional: She is oriented to person, place, and time and well-developed, well-nourish ed, and in no distress. HENT: Head: Normocephalic. Nose: No mucosal edema. Right sinus exhibits no frontal sinus tenderness. Left sinus exhibi ts no frontal sinus tenderness. Mouth/Throat: Oropharynx is clear and moist and mucous membranes are normal. Neck: Trachea normal. Neck supple. No JVD present. Cardiovascular: Normal rate, regular rhythm, S1 normal and S2 normal. No murmur heard. Pulmonary/Chest: No accessory muscle usage. No respiratory distress. She has decreased robert th sounds in the right lower field and the left lower field. She has no wheezes. She has no rhonchi. She has no rales. Musculoskeletal: She exhibits no edema. Lymphadenopathy: She has no cervical adenopathy. Neurological: She is alert and oriented to person, place, and time. Gait normal. Skin: Skin is warm and intact. No cyanosis. Nails show no clubbing. Psychiatric: Affect normal. Data: None Assessment 1. COPD moderate. Currently treated with Dulera and as needed albuterol. The patient's use of Dulera is not standard. Ms. Coleman is been advised regarding the appropriate dosin g of Dulera. The patient appears to understand. For unclear reasons her dose of Dulera is 200/5 which is higher than typically used with pa tients with COPD. We will lower her dose of Dulera to 100/5. Ms. Coleman is up-to-date with respect to her seasonal influenza vaccination, Prevnar and P neumovax. The patient was counseled regarding the benefits of regular scheduled exercise. Plan 1. Decrease Dulera to 100/5, 2 puffs inhaled twice daily. 2. High-dose seasonal influenza vaccination is recommended for December 2018. 3. Pulmonary clinic follow-up appointment will be lengthened to 12 months. CC: Bry Vaughn DO Tdocumented in this encounter Plan of Treatment +--------+---------+ + + + | Date | Type | Specialty | Care Team | Description | +--------+---------+ + + + | 06/26/ | Office | Cardiology | Aaron Zimmerman, | | | 2019 | Visit | | MD Katelyn MAGALLON | | | | | | [place] | | | | | | [address] | | | | | | | | +--------+---------+ + + + documented as of this encounter Visit Diagnoses + + | Diagnosis | + + | COPD, moderate (HCC) - Primary Chronic airway obstruction, not elsewhere classified | + + documented in this encounter
--- OUTSIDE RECORDS SUMMARY | ~2019-01-22 | XMS | Encounter Summary ---
Demographics + + + | Address | [address] | | | [place] [address] | + + + | Home Phone | | + + + | Preferred Language | Unknown | + + + | Marital Status | | + + + | Orthodoxy Affiliation | 1028 | + + + [...] | [place] | | | | | [address] | | + + + + + | Mila Desai | ECON | Unknown | | + + + + + Care Team Providers + +------+ + | Care Welder Production Line Arc Name | Role | Phone | + +------+ + | Bry Vaughn DO | PCP | | + +------+ + Reason for Visit + + + | Reason | Comments | + + + | Medication Refill | | + + + Encounter Details +--------+--------+ + + + | Date | Type | Department | Care Team | Description | +--------+--------+ + + + | 01/11/ | Refill | [facility] | Tyree Joyce, | Medication Refill | | 2017 | | PULMONARY [address] | MD [address] | | | | | [place], | [place], [place] | | | | | [place] [address] | [address] | | | | | [phone] | | | +--------+--------+ + + + Social History + +-------+ [...] + | Yes | | | Recovering alcoholic | | [...] [place] | | | | | | [address] | | | | | | | | +--------+---------+ + + + documented as of this encounter Visit Diagnoses Not on filedocumented in this encounter"
--- OUTSIDE RECORDS SUMMARY | ~2019-01-22 | XMS | Encounter Summary ---
Demographics + + + | Address | [address] | | | [place] [address] | + + + | Home Phone | | + + + | Preferred Language | Unknown | + + + | Marital Status | | + + + | Congregation Affiliation | 1028 | + + + | Race | Unknown | + + + | Ethnic Group | Unknown | + + + Author + + + | Author | [facility] | | | and [place] | + + + | Organization | [facility] | | | and [place] | + + + | Address | Unknown | + + + | Phone | Unavailable | + + + Support + + + + + | Name | Relationship | Address | Phone | + + + + + | Joseluis Desai | ECON | [place] | | | | | [address] | | + + + + + | Mila Desai | ECON | Unknown | | + + + + + Care Team Providers + +------+ + | Care Axle Bearing Polisher Name | Role | Phone | + +------+ + | Bry Vaughn DO | PCP | | + +------+ + Reason for Visit +--------+ + | Reason | Comments | +--------+ + | Other | | +--------+ + Encounter Details +--------+ + + + + | Date | Type | Department | Care Team | Description | +--------+ + + + + | 09/15/ | Telephone | [facility] | Shaji Wilson | Other | | 2018 | | SURGERY [address] | MD Alessandro, [facility] [address] | | | | | [address] [place], [place] | [facility] | | | | | [address] | [place] [address] | | | | | [phone] | [phone] | | | | | | | | +--------+ + [...] [place] | | | | | | [address] | | | | | | | | +--------+---------+ + + + documented as of this encounter Visit Diagnoses Not on filedocumented in this encounter"
--- OUTSIDE RECORDS SUMMARY | ~2019-01-22 | XMS | Encounter Summary ---
Demographics + + + | Address | [address] | | | [place] [address] | + + + | Home Phone | | + + + | Preferred Language | Unknown | + + + | Marital Status | | + + + | Caodaism Affiliation | 1028 | + + + | Race | Unknown | + + + | Ethnic Group | Unknown | + + + Author + + + | Author | [facility] | | | and [place] | + + + | Organization | [facility] | | | and [place] | + + + | Address | Unknown | + + + | Phone | Unavailable | + + + Support + + + + + | Name | Relationship | Address | Phone | + + + + + | Joseluis Desai | ECON | [place] | | | | | [address] | | + + + + + | Mila Desai | ECON | Unknown | | + + + + + Care Team Providers + +------+ + | Care Unix System Administrator Name | Role | Phone | + [...] | [facility] | [address] | | | | | IMAGING | [place] | | | | | [phone] | [place] [address] | | +--------+ + + + + [...] | | | | | | [place] | | | | | | [address] | | | | | | | | +--------+---------+ + + + documented as of this encounter Procedures + +--------+ + + + | Procedure Name | Priori | Date/Time | Associated Diagnosis | Comments | | | ty | | | | + +--------+ + + + | XR CHEST 1 VIEW | Routin | 08/17/2017 | | Results for this | | | e | 2:00 PM | | procedure are in the | | | | PDT | | results section. | + +--------+ + + + documented in this encounter Results XR Chest 1 Vw (08/17/2017 2:00 PM PDT) + + | Specimen | [...]
--- OUTSIDE RECORDS SUMMARY | ~2019-01-22 | XMS | Clinical Summary ---
Demographics + + + | Address | [address] | | | [place] [address] | + + + | Home Phone | | + + + | Preferred Language | Unknown | + + + | Marital Status | | + + + | Episcopal Affiliation | 1028 | + + + | Race | Unknown | + + + | Ethnic Group | Unknown | + + + Author + + + | Author | [facility] | | | and [place] | + + + | Organization | [facility] | | | and [place] | + + + | Address | Unknown | + + + | Phone | Unavailable | + + + Support + + + + + | Name | Relationship | Address | Phone | + + + + + | Joseluis Desai | ECON | [place] | | | | | [address] | | + + + + + | Mila Desai | ECON | Unknown | | + + + + + Care Team Providers + +------+ + | [facility] [employer] Name | Role | Phone | + +------+ + | Bry Vaughn DO | PCP | | + +------+ + Allergies + + + + + + | Active Allergy | Reactions | Severity | Noted | Comments | | | | | Date | | + + + + + + | Amoxicillin | | | 02/25/20 | | | | | | 18 | | + + + + + + | Cephalexin | | | 02/25/20 | | | | | | 18 | | + + + + + + | Hydroxyzine Hcl | | | 02//20 | | | | | | 18 | | + + + + + + | Penicillins | | | 02/25/20 | | | | | | 18 | | + + + + + + | Ranitidine Hcl | | | 02/25/20 | | | | | | 18 | | + + + + + + Medications + + + +---------+------+------+-------+ | Medication | Sig | Dispensed | Refills | Star | End | Statu | | | | | | t | Date | s | | | | | | Date | | | + + + +---------+------+------+-------+ | propranolol | Take 80 mg by mouth | | 0 | | | Activ | | (INDERAL) 80 mg | Daily. For tremors | | | | | e | | tablet | | | | | | | + + + +---------+------+------+-------+ | buPROPion | Take 150 mg by mouth | | 0 | | | Activ | | (WELLBUTRIN SR) 150 | 2 times daily. | | | | | e | | mg 12 hr tablet | | | | | | | + + + +---------+------+------+-------+ | nitroglycerin | Place 0.4 mg under | | 0 | | | Activ | | (NITROSTAT) 0.4 mg | the tongue every 5 | | | | | e | | SL tablet | minutes as needed | | | | | | | | for Chest pain. | | | | | | + + + +---------+------+------+-------+ | atorvaSTATin | Take 40 mg by mouth | | 0 | | | Activ | | (LIPITOR) 40 mg | nightly. | | | | | e | | tablet | | | | | | | + + + +---------+------+------+-------+ | oxybutynin | Take 5 mg by mouth 2 | | 0 | | | Activ | | (DITROPAN) 5 mg | times daily. | | | | | e | | tablet | | | | | | | + + + +---------+------+------+-------+ | albuterol | Inhale 2 puffs into | | 0 | | | Activ | | (VENTOLIN HFA) 90 | the lungs every 4 | | | | | e | | mcg/puff inhaler | hours as needed. | | | | | | + + + +---------+------+------+-------+ | | Place 1 drop into | | 0 | | | Activ | | carboxymethylcellulo | both eyes Daily. | | | | | e | | se (THERATEARS) | | | [...] | | + + + +---------+------+------+-------+ | RA ASPIRIN | Take 81 mg by mouth | | 0 | 09/1 | | Activ | | CHILDRENS 81 MG | Daily. | | | 5/20 | | e | | chewable tablet | | | | 18 | | | + + + +---------+------+------+-------+ | ipratropium | Take 2.5 mLs by | 225 mL | 0 | 10/0 | | Activ | | (ATROVENT) 500 | nebulization every 4 | | | 20 | | e | | mcg/2.5 mL nebulizer | hours as needed. | | | 18 | | | | solution | | | | | | | + + + +---------+------+------+-------+ | albuterol 2.5 mg/3 | Take 3 mLs by | 360 | 1 | 10/0 | | Activ | | mL nebulizer | nebulization every 4 | vial | | 20 | | e | | solution | hours as needed. 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 | + + + Resolved Problems + + + + | Problem | Noted | Resolved | | | Date | Date | + + + + | Hemorrhagic shock | 08/21/19 | | | | 18 | 8 | + + + + | Respiratory failure with hypoxia and hypercapnia | 05/08/19 | | | | 18 | 8 | + + + + | COPD (chronic obstructive pulmonary disease) | 05/08/19 | | | | 18 | 8 | + + + + Encounters +--------+--------+ + + + | Date | Type | Specialty | Care Team | Description | +--------+--------+ + + + | 12/16/ | Refill | Pulmonology | Tyree Joyce, | Medication Refill | | 2019 | | | MD | | +--------+--------+ + + + from Last 3 Months Immunizations + + + + | Name | Administration Dates | Next Due | + + + + | INFLUENZA PF | 10/28/2017, 11/19/2015, 10/30/2014 | | | QUAD(PED/ADOL/ADULT) | | | | ,PSKT or VIAL | | | + + + + | INFLUENZA PF | 04/28/2017, 12/28/2013 | | | TRIVALENT(PED/ADOL/A | | | | DULT), PSKT | | | + + + + | INFLUENZA, | 01/02/2009 | | | UNSPECIFIED | | | | FORMULATION | | | + + + + | INFLUENZA, | 12/12/2013 | | | W/Preservative | | | + + + + | PNEUMOCOCCAL | 12/30/2017 | | | CONJUGATE 13-VALENT | | | | (PCV13) | | | + + + + | PNEUMOCOCCAL | 01/07/2014 | | | POLYSACCHARIDE | | | | 23-VALENT (PPSV23) | | | + + + + | TD PF (2 LF TETANUS) | 04/01/2004 | | | (ADOL/ADULT) | | | + + + + | TDAP, (ADOL/ADULT) | 04/28/2017, 07/12/2016 | | + + + + | ZOSTER NON-LIVE | 06/19/2018, 10/28/2017 | | | (SHINGRIX) | | | + + + + | ZOSTER, 1 DOSE | 07/12/2016 | | | (ZOSTAVAX) | | | + + + + Family History + + +------+ + | Medical History | Relation | Name | Comments | + + +------+ + | No known problems | Brother | | | + + +------+ + | Heart disease | Father | | | + + +------+ + | Diabetes | Mother | | | + + +------+ + | Heart disease | Mother | | | + + +------+ + + +------+ + + | Relation | Name | Status | Comments | + +------+ + + | Brother | | Alive | | + +------+ + + | Father | | | | + +------+ + + | Mother | | | | + +------+ + + Social History + +-------+ +--------+ [...] to Quit: No; Counseling Given: No | + + + + +---------+ + [...] recent travel history available. | + + Last Filed Vital Signs + [...] + + + + | Temperature | 36.2 C (97.1 F) | 08/23/2017 1:00 PM | | | | | PDT [...] | | + + + + + Plan of Treatment +--------+---------+ + + + | Date | Type | Specialty | Care Team | Description | +--------+---------+ + + + | 06/26/ | Office | Cardiology | Aaron Zimmerman, | | | 2019 | Visit | | MD Katelyn MAGALLON | | | | | | [place] | | | | | | [id number] | | | | | | | | +--------+---------+ + + + + + + + + | Health Maintenance | Due Date | Last Done | Comments | + + + + + | Hepatitis C | | | | | Screening | 4 | | | + + + + + | Colorectal Cancer | | | | | Screening | 4 | | | | (Colonoscopy) | | | | + + + + + | Breast Cancer | | | | | Screening | 9 | | | + + + + + | Adult Annual | | | | | Wellness Visit | 7 | | | + + + + + | Lung Cancer | | 08/17/2017, 08/17/2017, | | | Screening | 9 | 05/07/2017 | | + + + + + | Vaccine: Influenza | | 10/28/2017, 04/28/2017, | | | (#1) | 9 | 11/19/2015, Additional history | | | | | exists | | + + + + + | Vaccine: | | 12/30/2017, 01/07/2014 | | | Pneumococcal 65+ | 9 | | | | Low/Medium Risk (2 | | | | | of 2 - PPSV23) | | | | + + + + + | Vaccine: | | 04/28/2017, 07/12/2016, | | | Dtap/Tdap/Td (3 - | 8 | 04/01/2004 | | | Td) | | | | + + + + + | Vaccine: Zoster | Completed | 06/19/2018, 10/28/2017, | | | | | 07/12/2016 | | + + + + + Implants + +------+------+ +--------+--------+--------+ | Implanted | Type | Area | Manufacture | Device | Shelf | Model | | | | | r | | Expira | / | | | | | | Identi | tion | Serial | | | | | | fier | Date | / Lot | + +------+------+ +--------+--------+--------+ | Barricade | | | | | 09/10/ | / | | Coil-08/18/2017Implanted: Qty: | | | | | 2021 | [id number] | | 1 on 08/18/2017 by Dilcia, | | | | | | [id number] | | MD Bobo | | | | | | | + +------+------+ +--------+--------+--------+ Results Not on filefrom Last 3 Months Insurance + +--------+ +--------+ +---------+--------+ | Payer | Benefi | Subscriber | Effect | Phone | Address | Type | | | t Plan | ID | waldemar | | | | | | / | | Dates | | | | | | Group | | | | | | + +--------+ +--------+ +---------+--------+ | MEDICARE | MEDICA | [id number] | 06/13/19 | [phone] | | Medica | | | RE | | 19-Pre | 5 | | re | | | PART A | | sent | | | | | | AND B | | | | | | + +--------+ +--------+ +---------+--------+ | [employer] | [employer]A | [id number] | 03/01/ | [phone] | | Medica | | MEDICAID HMO | HEALTH | | 2016-P | 1 | | id | | | MDCD | | resent | | | | | | HMO [place] | | | | | | + +--------+ +--------+ +---------+--------+ + +--------+ +--------+ + + | Guarantor Name | Accoun | Relation to | Date | Phone | Billing Address | | | t Type | Patient | of | | | | | | | | | | + +--------+ +--------+ + + | Amy Coleman | Person | Self [birth year] | [address] | | | al/Fam | | 1955 | [phone] | [place] | | | [place] | | | [address] (Home) | [address] | + +--------+ +--------+ + + Advance Directives + + + + + | Type | Date Recorded | Patient | Explanation | | | | 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
--- OUTSIDE RECORDS SUMMARY | ~2019-01-22 | XMS | Encounter Summary ---
Demographics + + + | Address | [address] | | | [place] [address] | + + + | Home Phone | | + + + | Preferred Language | Unknown | + + + | Marital Status | | + + + | Bahai Affiliation | [id number] | + + + | Race | Unknown | + + + | Ethnic Group | Unknown | + + + Author + + + | Author | [facility] | | | and [place] | + + + | Organization | [facility] | | | and [place] | + + + | Address | Unknown | + + + | Phone | Unavailable | + + + Support + + + + + | Name | Relationship | Address | Phone | + + + + + | Joseluis Desai | ECON | [place] | | | | | [phone] | | + + + + + | Mila Desai | ECON | Unknown | | + + + + + Care Team Providers + +------+ + | Care Cell Lead Name | Role | Phone | [...] | | | | | | | Abdominal | | | | | | | Hematoma GI | | | | | | | BLEED GI | | | | | | | BLEED | | | | | | | Procedures | | | | | | | GI BLEED | | | | | | | GDA | | | | | | | EMBOLIZATION | | | +--------+--------+ + + + + Encounter Details +--------+---------+ + + + | Date | Type | Department | Care Team | Description | +--------+---------+ + + + | 08/17/ | Surgery | [facility] | [facility] | GI BLEED | | 2018 - | | [facility] | MD [address] | | | | | INTRA OP [address] | [address] [facility] | | | 08/18/ | | [address] [place] | [place] [address] | | | 2018 | | [address] | [phone] | | | | | [phone] | | | +--------+---------+ + + + [...] + + + | Blood Pressure | 132/74 | 08/23/2017 1:00 PM | | | | | PDT | | + + + + + | Pulse | 80 | 08/23/2017 2:18 PM | | | | | PDT | | + + + + + | Temperature | 36.2 C (97.1 F) | 08/23/2017 1:00 PM | | | | | PDT | | + + + + + | Respiratory Rate | 22 | 08/23/2017 2:18 PM | | | | | PDT | | + + + + + | Oxygen Saturation | 96% | 08/23/2017 2:18 PM | | | | | PDT | | + + + + + | Inhaled Oxygen | - | - | | | Concentration | | | | + + + + + | Weight | 67.5 kg (148 lb 13 | 08/20/2017 6:00 AM | | | | oz) | PDT | | + + + + + | Height | 165.1 cm (5' 5") | 08/18/2017 2:23 AM | | | | | PDT | | + + + + + | Body Mass Index | 24.76 | 08/18/2017 2:23 AM | | | | | PDT | | + + + + + documented in this encounter Discharge Summaries Riky Rodriguez MD - 08/23/2017 8:52 AM PDTFormatting of this note might be differen t from the original. Patient: Amy Coleman Date of : 1955 PCP: Bry Vaughn DO Admit Date: 08/17/2017 Discharge Date: 08/23/2017 Date of Service: 08/23/2017 Issues Requiring Follow Up after Discharge: Holding baby aspirin for two weeks following bleeding event. Arrange future follow up with vascular surgey Follow Up Appointments: Bry Vaughn DO [address] [place] [address] Schedule an appointment as soon as possible for a visit Discharge Disposition: Home Consultants This Admission: Vascular surgery, General Surgery, Interventional Radiology Hospital Course: Amy Coleman is a 62-year-old female with past medical history significant for COPD, CAD s/p NSTEMI ( no PCI), who was transferred to [facility] for ICU care from [place] on 08/17 wh ere she was intubated for hypercarbic respiratory failure as well as hemorrhagic shock secon barbara to intra-abdominal bleeding requiring MTP. CT abdomen revealed 20 x 8 x 11 cm area of bleeding in her abdomen. She had a diagnostic angiogram by intervention radiology on 08/17 that showed pseudoaneurysm of the gastric arteries with no active bleeding. Vascular surgery and general surgery follo wed the patient. Her hemoglobin continued to drop and repeat angiogram was performed by IR on 08/18 with embolization of right gastric artery. Hemoglobin stabilized. There have been n o signs of ischemic stomach or duodenum. She has proximal celiac stenosis, vascular surgery does not recommend any acute interventio n. She was diuresed for volume overload. Patient was extubated on 08/19. For concerns for sepsi s upon admission she was treated with levofloxacin, blood culture and respiratory culture raya ve been negative since. Antibiotics have been stopped. She was transferred to the floor on 08/20/17 and continued to improve with no further signs o f bleeding, tolerating her diet, and ambulating well in the hallways. She is breathing well now on room air with scheduled nebulizers and will be going home to continue duo nebs at [facility]. She is being discharged today in good condition with plans to follow-up with her primary ca re doctor. She has been advised to stop taking her baby aspirin for 2 weeks, and then it sh ould be safe to resume at that point following her bleeding. Discharge Diagnoses: Active Hospital Problems Diagnosis Anemia Essential hypertension Pseudoaneurysm of visceral artery COPD (chronic obstructive pulmonary disease) Resolved Hospital Problems Diagnosis Hemorrhagic shock Respiratory failure with hypoxia and hypercapnia Discharge Exam: Temp: [36.2 C (97.2 F)-37.7 C (99.8 F)] 36.4 C (97.6 F) Pulse: [77-99] 84 Resp: [16-20] 18 BP: (120-140)/(65-89) 138/89 Physical Exam Constitutional: She is oriented to person, place, and time. No distress. HENT: Head: Normocephalic and atraumatic. Eyes: Conjunctivae and EOM are normal. Cardiovascular: Normal rate, regular rhythm, normal heart sounds and intact distal pulses. Pulmonary/Chest: Effort normal and breath sounds normal. No stridor. Abdominal: Soft. Bowel sounds are normal. She exhibits no distension. There is tenderness ( mild global tenderness). Musculoskeletal: She exhibits no edema. Neurological: She is alert and oriented to person, place, and time. Skin: Skin is warm and dry. She is not diaphoretic. Psychiatric: Affect normal. Discharge Medications: Discharge Medications Unchanged Medications Details albuterol-ipratropium 2.5-0.5 mg/3 mL Soln Take 3 mLs by nebulization every 6 hours. Dx: COPD Acute hypoxic respiratory failure aka: DUONEB atorvaSTATin 40 mg tablet Take 40 mg by mouth nightly. aka: LIPITOR buPROPion 150 mg 12 hr tablet Take 150 mg by mouth 2 times daily. aka: WELLBUTRIN SR lisinopril 10 mg tablet Take 1 tablet by mouth Daily. aka: PRINIVIL, ZESTRIL nitroglycerin 0.[address] 0.4 mg under the tongue every 5 minutes as needed for Chest pain. aka: NITROSTAT oxybutynin 5 mg tablet Take 5 mg by mouth 2 times daily. aka: DITROPAN pantoprazole 40 mg tablet Take 1 tablet by mouth every morning (before breakfast). aka: PROTONIX propranolol 80 mg tablet Take 80 mg by mouth Daily. For tremors aka: INDERAL SENIOR MULTIVITAMIN PLUS Tabs Take 1 tablet by mouth Daily. THERATEARS 0.25% ophthalmic solution Generic drug: carboxymethylcellulose Place 1 drop into both eyes Daily. VENTOLIN HFA 90 mcg/puff inhaler Generic drug: albuterol Inhale 2 puffs into the lungs every 4 hours as needed. Discontinued Medications aspirin 81 mg chewable tablet INCRUSE ELLIPTA 62.5 mcg/puff inhaler Generic drug: umeclidinium Time Spent on Discharge: greater than 30 minutes Electronically signed by: Riky Rodriguez MD 08/23/2017 8:52 Portions of this chart may have been created with [employer] voice recognition software. Occasi onal wrong-word or sound-alike substitutions may have occurred due to the inherent lobo itations of voice recognition software. Please read the chart carefully and recognize, using context, where these substitutions have occurred documented in th is encounter Discharge Instructions Instructions Lavinia Machado RN - 08/22/2017Formatting of this note might be different f rom the original. Stop taking your baby aspirin for two weeks, then it should be safe to resume. When You Have Gastrointestinal (GI) Bleeding Blood in your vomit or stool can be a sign of gastrointestinal (GI) bleeding. GI bleeding c an be scary. But the cause may not be serious. You shouldalwayssee a doctor if GI bleedi ng occurs. The GI tract The GI tract is the path through whichfood travels in the body. Food passes from the mout h down the esophagus(the tube from the mouth to the stomach). Food begins to break down in the stomach. It then moves through the duodenum,the first part of the small intestine. Nu trients are absorbed as food travels through the small intestine. What is left passes into t he colon (large intestine) as waste. The colon removes water from the waste. Waste continues from the colon to the rectum (where stool is stored). Waste then leaves the body through th e anus. Causes of GI bleeding GI bleeding can be caused by many different problems. Some of the more common causes includ e: Swollen veins in the anus (hemorrhoids) Swollen veins in the esophagus (varices) Sore on the lining of the GI tract (ulcer) Cuts or scrapes in the mouth or throat Infection caused by germs such as bacteria or parasites Food allergies, such as milk allergy in young children Medicines Inflammation of the GI tract (gastritis or esophagitis) Colitis (Crohn's disease or ulcerative colitis) Cancer (tumors or polyps) Abnormal pouches in the colon (diverticula) Tears in the esophagus or anus Nosebleed Abnormal blood vessels in the GI tract (angiodysplasia) Diagnosing the cause of blood in stool If blood is coming out in your stool, you may have a lower GI tract problemor a very fast upper GI tract bleed. Bleeding from the GI tract can be bright red. Or it may look dark and tarry.Tests may also find blood in your stool that can t be seen with the eye (occult b lood). To find out the cause, tests that may be ordered include: Blood tests. A blood sample is taken and sent to a lab for exam. Hemoccult test. Checks a stool sample for blood. Stool culture. Checks a stool sample for bacteria or parasites. X-ray, ultrasound, or CT scan. Imaging tests that take pictures of the digestive tract. Colonoscopy or sigmoidoscopy. This test uses a flexible tube with a tiny camera. The tub e is inserted through your anus into your rectum to see the inside of your colon. Your provi vandana can also take a tiny tissue sample (biopsy) and treat a bleeding source Diagnosing the cause of blood in vomit If you are vomiting blood or something that looks like coffee grounds,you may have an upp er GI tract problem. To find the cause, tests that may be done include: Upper Endoscopy. A flexible tube with a tiny camera is inserted through your mouth and t hroat to see inside your upper GI tract. This lets your provider take a tiny tissue sample ( biopsy) and treat a bleeding source. Nasogastric lavage. This can tell if you have upper GI or lower GI bleeding. X-ray, ultrasound, or CT scan. Imaging tests that take pictures of your digestive tract. Upper GI series. X-rays of the upper part of your GI tract taken from inside your body. Enteroscopy. This sends a flexible tube or a small, swallowed capsule camera into your s mall intestine. When to call your healthcare provider Call your healthcare provider right away if you have any of the following: Bleeding from your mouth or anus that can't be stopped Fever of 100.4F(38.0) or higher Bleeding along with feeling lightheaded or dizzy Signs of fluid loss (dehydration). These include a dry, sticky mouth, decreased urine ou tput; and very dark urine. Belly (abdominal) pain Date Last Reviewed: 09/12/201519991127-8923 [employer]. [address] [place] [address], [place] [address]. All righ ts reserved. This information is not intended as a substitute for professional medical care. Always follow your healthcare professional's instructions. Catheter Embolization Embolization is a procedure to block a blood vessel. It is done to stop severe bleeding or to stop blood flow to a part of the body. To do this, a thin, flexible tube, called a cathet er, is put into the specific blood vessel that needs to be blocked. Initially, this would be done after entering a peripheral artery or vein in your arm or groin. It is often done by a doctor called an interventional radiologist. This procedure may be done alone, or before or after surgery or other treatment. Why is catheter embolization done? The procedure may be done to: Control bleeding in an emergency Block blood flow to a cancerous tumor Block blood flow to a uterine fibroid Treat arteriovenous malformations (AVMs) in the brain and body What are the risks of catheter embolization? Risks depend upon the part of the body being treated. Talk to your radiologist. Risks inclu de: Blood clots, damage to an artery Stroke Infection or bruising around the catheter insertion site Problems due to contrast medium, including allergic reaction or kidney damage The chance that the embolic agent could lodge in the wrong place and deprive normal tiss ue of its oxygen supply For uterine fibroid embolization risks include: Cramping Fever Cessation of menstrual cycles (rare) May affect future fertility How do I prepare for the procedure? You will be told how to prepare for your procedure. Follow these instructions carefully. Al so do the following: Do not to eat or drink before the procedure,as instructed by your doctor. Tell the doctor: What medicines you take. This includes herbs and supplements. If you are or may be . If you are allergic to contrast medium (X-ray dye) or other medicines. What happens during the procedure? Before the procedure starts, you may be given a sedative to make you relaxed and sleepy. Or you will be given general anesthesia to put you in a deep sleep through the procedure. Loca l anesthetic is also used. This blocks pain at the site where the catheter is inserted. The procedure is then started. A small incision is made over the insertion site. A catheter is put into the blood ves kinjal. It is then moved to the area to be treated. Contrast medium is injected through the catheter. This makes the artery and catheter sta nd out on X-ray pictures. The movement of the catheter is viewed on a video screen. A material or medicine is sent through the catheter. It goes to the treatment site. The procedure is repeated in each blood vessel that needs to be blocked. The catheter is then removed. Firm pressure is put on the insertion site for about 15 mi nutes to stop bleeding. What happens after the procedure? You will need to lie flat with your leg straight for several hours. You may go home the odilia e . Or you may stay in the hospital or surgery center one or more nights. Follow any inst ructions you have been given about recovering at home. Date Last Reviewed: 02/12/201619995735-5211 [employer]. [address] [place] [address], [place] [address]. All righ ts reserved. This information is not intended as a substitute for professional medical care. Always follow your healthcare professional's instructions. 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 During surgery, you were given medicine called anesthesia to kye p you relaxed and free of pain. After surgery, you may have some pain or nausea. This is com mon. Here are some tips for feeling better and getting well after surgery. Stay on schedule with your medicine. Going home Your healthcare provider will show you how to take care of yourself when you go home. He or she will also answer your questions. Have an adult family member or friend drive you home. For the first 24 hours after your surgery: Do not drive or use heavy equipment. Do not make important decisions or sign legal papers. Do not drink alcohol. Have someone stay with you, if needed. He or she can watch for problems and help keep yo u safe. Be sure to go to all follow-up visits with your healthcare provider. And rest after your wharton rgery for as long as your healthcare provider tells you to. Coping with pain If you have pain after surgery, pain medicine will help you feel better. Take it as told, b efore pain becomes severe. Also, ask your healthcare provider or pharmacist about other ways to control pain. This might be with heat, ice, or relaxation. And follow any other instruct ions your surgeon or nurse gives you. Tips for taking pain medicine To get the best relief possible, remember these points: Pain medicines can upset your stomach. Taking them with a little food may help. Most pain relievers taken by mouth need at least 20 to 30 minutes to start to work. Taking medicine on a schedule can help you remember to take it. Try to time your medicin e so that you can take it before starting an activity. This might be before you get dressed, go for a walk, or sit down for dinner. Constipation is a common side effect of pain medicines. Call your healthcare provider be fore taking any medicines such as laxatives or stool softeners to help ease constipation. Al so ask if you should skip any foods. Drinkinglots of fluids andeating foodssuch as fru its and vegetables that are high in fiber can also help. Remember, do not take laxatives unl ess your surgeon has prescribed them. Drinking alcohol and taking pain medicine can cause dizziness and slow your breathing. I t can even be deadly. Do not drink alcohol while taking pain medicine. Pain medicine can make you react more slowly to things. Do not drive or run machinery wh ile taking pain medicine. Your healthcare providermay tell you to take acetaminophen to help ease your pain. Ask hi m or her how much you are supposed to take each day. Acetaminophen or other pain relievers m ay interact with your prescription medicines or other fovk-qga-rgeacup (OTC) medicines. Some prescription medicines have acetaminophen and other ingredients.Using both prescription a nd OTC acetaminophenfor paincan cause you to overdose. Readthe labels on your OTC [facility]. This will help youto clearly know the list of ingredients, how much to t marietta, and anywarnings. It may also help you not take too muchacetaminophen.If you have questions or do not understand the information, ask your pharmacist or healthcare provider t o explain it to you before you take the OTC medicine. Managing nausea Some people have an upset stomach after surgery. This is often because of anesthesia, pain, or pain medicine, or the stress of surgery. These tips will help you handle nausea and eat healthy foods as you get better. If you were on a special food plan before surgery, ask your healthcare provider if you should follow it while you get better. These tips may help: Do not push yourself to eat. Your body will tell you when to eat and how much. Start off with clear liquids and soup. They are easier to digest. Next try semi-solid foods, such as mashed potatoes, applesauce, and gelatin, as you feel ready. Slowly move to solid foods. Don t eat fatty, rich, or spicy foods at first. Do not force yourself to have 3 large meals a day. Instead eat smaller amounts more ofte n. Take pain medicines with a small amount of solid food, such as crackers or toast, to debra id nausea. Call your surgeon if You still have pain an hour after taking medicine. The medicine may not be strong enough . You feel too sleepy, dizzy, or groggy. The medicine may be too strong. You have side effects like nausea, vomiting, or skin changes, such as rash, itching, or hives. If you have obstructive sleep apnea You were given anesthesia medicine during surgery to keep you comfortable and free of pain. After surgery, you may have more apnea spells because of this medicine and other medicines you were given. The spells may last longer than usual. At home: Keep using the continuous positive airway pressure (CPAP) device when you sleep. Unless your healthcare provider tells you not to, use it when you sleep, day or night. CPAP is a co mmon device used to treat obstructive sleep apnea. Talk with your provider before taking any pain medicine, muscle relaxants, or sedatives. Your provider will tell you about the possible dangers of taking these medicines. Date Last Reviewed: 02/12/201619995096-3760 [employer]. [address] [place] [address], [place] [id number]. All righ ts reserved. This information is not intended as a substitute for professional medical care. Always follow your healthcare professional's instructions. documented in this encounter Medications at Time of [...] documented as of this encounter Progress Notes Selin Siegel LICSW - 08/22/2017 2:55 PM PDTSocial Work: Pt is a 62 year old female from [place], [place] with [facility] Plan Medicaid insurance. SW received referral for d/c planning on pt. Reviewed pt's chart and did not identify any d /c needs. SW met with pt and she anticipates that she will d/c home tomorrow. Her daughter solitario gaines will pick her up and take her home. She has no concerns re: d/c planning other then sh e would like to wear an adult diaper and take extra padding just in case it is needed. Elect ronically signed by KIMBERLEE Virgen at 08/22/2017 2:55 PM PDTCope, Riky Avendaño MD - 08/22/2017 8:33 AM PDT Patient: Amy Coleman Date of : 1955 Admit Date: 08/17/2017 Date of Service: 08/22/2017 PCP: Bry Vaughn DO Hospital Day: Hospital Day: 6 Hospital Course: Amy Coleman is a 62-year-old female with past medical history significant for COPD, CAD s/p NSTEMI ( no PCI), who was transferred to [facility] for ICU care from [place] on 08/17 wh ere she was intubated for hypercarbic respiratory failure as well as hemorrhagic shock secon barbara to intra-abdominal bleeding requiring MTP. CT abdomen revealed 20 x 8 x 11 cm area of bleeding in her abdomen. She had a diagnostic angiogram by intervention radiology on 08/17 that showed pseudoaneurysm of the gastric arteries with no active bleeding. Vascular surgery and general surgery follo wed the patient. Her hemoglobin continued to drop and repeat angiogram was performed by IR on 08/18 with embilization of gastric arteries. Hemoglobin stabilized. There have been no si gns of ischemic stomach or duodenum. She is on clear liquid diet and tolerating well. She has proximal celiac stenosis, vascular surgery does not recommend any acute interventio n. She was diuresed for volume overload. Patient was extubated on 08/19. For concerns for sepsi s upon admission she was treated with levofloxacin, blood culture and respiratory culture raya ve been negative since. Antibiotics have been stopped. Patient transferred to the floor on 08/20. Assessment and Plan: Active Problems: COPD (chronic obstructive pulmonary disease) Pseudoaneurysm of visceral artery Anemia Essential hypertension Hemorrhagic shock secondary to intra-abdominal bleeding from right gastric artery pseudoane urysm Status post massive blood transfusion Status post embolization by interventional radiology on 08/18, no concern for ischemic stomac h or duodenum Hemoglobin stabilized on last several checks Hb stable this AM at 10.5 Switched PPI to PO Acute respiratory failure with hypercarbia Status post extubation on 08/19 Resolved, now on room air Lasix as needed Bronchodilators to continue IS Acute blood loss Anemia Secondary to intra-abdominal bleeding As above, stable History of COPD Currently no signs of exacerbation Continue duonebs and Pulmicort Monitor respiratory status Now on room air Hypertension Blood pressure acceptable Restared home propranolol Started on amlodipine in the ICU, switched for home lisinopril this morning Monitor blood pressure Check orthostatics -pending Disposition: home CODE STATUS: Full Code DVT prophylaxis: SCDs Subjective: Feeling better Eating well No SOB No CP No NVD abdo pain improving No evidence of bleeding Objective: Vital Signs 08/20 699 - 08/21 0659 08/21 07 - 08/22 0659 08/22 07 - 08/22 0833 Most Rec ent Temp (C) 35.9 - 36.7 36.2 - 36.9 36.2 (97.1) Pulse 67 - 95 74 - 93 82 Resp 18 16 - 20 18 BP 101/77 - 141/79 117/77 - 146/74 125/77 Arterial Line BP 158/70 - 178/81 SpO2 (%) (!)85 - 100 90 - 97 91 INPUT/OUTPUT: Intake/Output Summary (Last 24 hours) at 08/22/17 0833 Last data filed at 08/21/17 1947 Gross per 24 hour Intake 620 ml Output 0 ml Net 620 ml Wt Readings from Last 3 Encounters: 08/20/17 67.5 kg (148 lb 13 oz) 05/11/17 61.4 kg (135 lb 5.8 oz) Active Lines PICC Line PICC Line - Double Lumen 08/17/17 basilic vein (medial side of arm), left 5 days PIV Line Peripheral IV Line - Single Lumen 05/08/17 0130 Left Forearm [id number]-[id number]-[id number] catheter syst em 20 gauge 106 days Active Tubes/Drains No matching active lines, drains, or airways Physical Exam Constitutional: She is oriented to person, place, and time. No distress. Sitting up in bed HENT: Head: Normocephalic and atraumatic. Eyes: Conjunctivae and EOM are normal. Neck: No tracheal deviation present. Cardiovascular: Normal rate, regular rhythm and normal heart sounds. Pulmonary/Chest: Effort normal and breath sounds normal. No stridor. No respiratory distres s. She has no wheezes. She has no rales. Abdominal: Soft. Bowel sounds are normal. She exhibits distension. Musculoskeletal: She exhibits no edema. Neurological: She is alert and oriented to person, place, and time. Skin: Skin is warm and dry. She is not diaphoretic. Psychiatric: Affect normal. Good mood 24 HOUR LABS: Recent Results (from the past 24 hour(s)) Hemoglobin and Hematocrit Result Value Ref Range Hgb 11.4 11.3 - 15.5 g/dL Hct 32.7 (L) 34.0 - 46.0 % CBC no Differential Result Value Ref Range WBC 8.7 3.8 - 11.0 K/uL RBC 3.34 (L) 3.70 - 5.10 M/uL Hgb 10.5 (L) 11.3 - 15.5 g/dL Hct 29.7 (L) 34.0 - 46.0 % MCV 89.1 80.0 - 100.0 fL MCH 31.6 27.0 - 34.0 pg MCHC 35.4 32.0 - 35.5 g/dL RDW-CV 13.7 11.0 - 15.5 % Platelet Count 197 150 - 400 K/uL MPV 7.8 7.5 - 11.2 fL Comprehensive Metabolic Panel Result Value Ref Range NA 143 135 - 145 mmol/L K 3.1 (L) 3.5 - 5.0 mmol/L CL 100 99 - 109 mmol/L CO2 34 (H) 21 - 28 mmol/L CALCIUM 9.1 8.5 - 10.2 mg/dL ANION GAP 9 5 - 16 mmol/L ALBUMIN 4.0 3.3 - 4.8 g/dL BUN 11 8 - 25 mg/dL Creatinine, Serum/Plasma 0.47 (L) 0.50 - 1.00 mg/dL GLUCOSE 89 65 - 99 mg/dL Total protein 6.2 6.1 - 7.8 g/dL ALK PHOS 49 35 - 115 U/L ALT 41 10 - 65 U/L AST 29 10 - 45 U/L Bilirubin Total 1.2 (H) 0.2 - 1.1 mg/dL Estimated GFR 105 >=90 mL/min/1.73m2 Glucose, POC Date/Time Value Ref Range Status 05/11/2017 11:43 107 70 - 109 mg/dL Final 05/10/2017 20:57 130 (H) 70 - 109 mg/dL Final 05/10/2017 16:54 113 (H) 70 - 109 mg/dL Final Scheduled PRN albuterol-ipratropium 3 mL Nebulization RT Q6H atorvaSTATin 40 mg Oral Nightly budesonide 0.25 mg Nebulization RT BID buPROPion 150 mg Oral BID docusate-senna 2 tablet Oral BID lisinopril 10 mg Oral Daily oxybutynin 5 mg Oral BID pantoprazole 40 mg Oral QAM AC potassium chloride 40 mEq Oral Once propranolol 80 mg Oral Daily acetaminophen, albuterol-ipratropium, calcium carbonate, calcium gluconate IVPB, carboxyme thylcellulose (PF), ondansetron, polyvinyl alcohol, sodium chloride All pertinent labs and imaging have been reviewed. Please refer to the Assessment and Plan for details on management. I spent 25 minutes with the patient and on the patient's unit, with over 50% spent in coun seling and/or coordination of care. Please refer to the Assessment and Plan for details. Electronically signed by: Riky Rodriguez MD 08/22/2017 8:33 Portions of this chart may have been created with [employer] voice recognition software. Occasi onal wrong-word or sound-alike substitutions may have occurred due to the inherent lobo itations of voice recognition software. Please read the chart carefully and recognize, using context, where these substitutions have occurred Krzysztof Ordaz MD - 08/21/2017 5:47 PM PDTFormatting of this note might be different f rom the original. [facility] Surgery Team Hospital Day: 5 DATE/TIME: 08/21/2017 17:47 SUBJECTIVE Amy Coleman is now Hospital Day: 5 with intra-abdominal hematoma due to ruptured ri ght gastric artery aneurysm. Patient transferred out of ICU yesterday. She is awake and fo llowing commands and is on regular diet tolerating well. She is ambulant and was out of bed at the time of exam. She appears very comfortable. OBJECTIVE Temp: 36.9 C (98.5 F) BP: 119/77 Pulse: 74 Resp: 20 SpO2: 92 % on Min/Max Temp past 24 hours:Temp Av.4 C (97.6 F) Min: 36.1 C (96.9 F) Max: 3 6.9 C (98.5 F) Intake/Output Summary (Last 24 hours) at 08/21/17 1747 Last data filed at 08/21/17 0900 Gross per 24 hour Intake 700 ml Output 575 ml Net 125 ml Wt. Admission: Weight: 69.2 kg (152 lb 8.9 oz) Wt. Current: Weight: 67.5 kg (148 lb 13 oz) Constitutional: Awake, follows commands. Comfortable CV: Regular rate and rhythm, S1S2 present or tachycardia present Pulmonary: Air entry equal bilateral bases GI: Abdomen nondistended, tenderness appropriate, bowel sounds present. Chemistry: Hematology: Lab Results Component Value Date HGB 11.4 08/21/2017 HCT 32.7 08/21/2017 Medications and labs were personally reviewed by me. IMPRESSION: 1. 62 y.o. year old female with hemorrhagic shock secondary to intra-abdominal bleeding fro m ruptured right gastric artery aneurysm status post interventional radiology guided coiling . Hemodynamically stable. Hemoglobin stable. Tolerating diet. PLAN: 1. Hemoglobin stable. Hemodynamically stable. Tolerating general diet without any issues. 2. Would not recommend drainage of the hematoma at this point. It likely will be absorbed over time. 3. OManagement of COPD per medical team. 4. Okay to resume chemical DVT prophylaxis from general surgical standpoint. 5. Plan was discussed bedside with patient. 6. She is okay to be discharged from general surgical standpoint. No general surgical inte rvention. She can follow up with us as needed in the clinic. Gen. surgery will sign off. Please call with any questions. Total time spent greater than 25 minutes, at least 50% in counseling and coordination of ca re. Electronically Signed by: Krzysztof Montaño MD, 08/21/2017 17:47 [facility] ope, Riky Avendaño MD - 08/21/2017 9:49 AM PDT Patient: Amy Coleman Date of : 1955 Admit Date: 08/17/2017 Date of Service: 08/21/2017 PCP: Bry Vaughn DO Hospital Day: Hospital Day: 5 Hospital Course: Amy Coleman is a 62-year-old female with past medical history significant for COPD, CAD s/p NSTEMI ( no PCI), who was transferred to [facility] for ICU care from [place] on 08/17 ere she was intubated for hypercarbic respiratory failure as well as hemorrhagic shock secon barbara to intra-abdominal bleeding requiring MTP. CT abdomen revealed 20 x 8 x 11 cm area of bleeding in her abdomen. She had a diagnostic angiogram by intervention radiology on 08/17 that showed pseudoaneurysm of the gastric arteries with no active bleeding. Vascular surgery and general surgery follo wed the patient. Her hemoglobin continued to drop and repeat angiogram was performed by IR on 08/18 with embilization of gastric arteries. Hemoglobin stabilized. There have been no si gns of ischemic stomach or duodenum. She is on clear liquid diet and tolerating well. She has proximal celiac stenosis, vascular surgery does not recommend any acute interventio n. She was diuresed for volume overload. Patient was extubated on 08/19. For concerns for sepsi s upon admission she was treated with levofloxacin, blood culture and respiratory culture raya ve been negative since. Antibiotics have been stopped. Patient transferred to the floor on 08/20. Assessment and Plan: Active Problems: COPD (chronic obstructive pulmonary disease) Pseudoaneurysm of visceral artery Anemia Essential hypertension Hemorrhagic shock secondary to intra-abdominal bleeding from right gastric artery pseudoane urysm Status post massive blood transfusion Status post embolization by interventional radiology on 08/18, no concern for ischemic stomac h or duodenum Hemoglobin stabilized on last several checks, recheck at noon Check orthostatics Acute respiratory failure with hypercarbia Status post extubation on 08/19 Not on home oxygen, down to 1 L here now Lasix as needed Bronchodilators to continue IS Acute blood loss Anemia Secondary to intra-abdominal bleeding As above, stable, recheck H/H at noon History of COPD Currently no signs of exacerbation Continue duonebs and Pulmicort Monitor respiratory status On 1 L, not on oxygen at home Hypertension Blood pressure acceptable Restared home propranolol Started on amlodipine in the ICU Monitor blood pressure Check orthostatics Disposition: home CODE STATUS: Full Code DVT prophylaxis: SCDs Subjective: No reported bleeding Feeling better Ate breakfast well No CP No NVD abdo soft Complains of overall weakness with activity Objective: Vital Signs 08/19 699 - 08/20 0659 08/20 07 - 08/21 0659 08/21 07 - 08/21 0950 Most Rec ent Temp (C) 36.5 - 37.6 35.9 - 36.7 36.4 36.4 (97.6) Pulse 59 - 154 67 - 95 87 - 93 93 Resp 8 - (!)32 11 - 18 16 16 BP 100/59 - 133/65 101/77 - 141/79 146/74 146/74 Arterial Line BP 98/47 - 202/90 158/70 - 178/81 165/81 SpO2 (%) 95 - 100 (!)85 - 100 92 - 97 97 Weight (kg) 67.5 INPUT/OUTPUT: Intake/Output Summary (Last 24 hours) at 08/21/17 0950 Last data filed at 08/21/17 0900 Gross per 24 hour Intake 870 ml Output 2925 ml Net -2055 ml Wt Readings from Last 3 Encounters: 08/20/17 67.5 kg (148 lb 13 oz) 05/11/17 61.4 kg (135 lb 5.8 oz) Active Lines PICC Line PICC Line - Double Lumen 08/17/17 basilic vein (medial side of arm), left 4 days PIV Line Peripheral IV Line - Single Lumen 05/08/17 0130 Left Forearm [id number] catheter syst em 20 gauge 105 days Active Tubes/Drains No matching active lines, drains, or airways Physical Exam Constitutional: She is oriented to person, place, and time. No distress. HENT: Head: Normocephalic and atraumatic. Eyes: Conjunctivae and EOM are normal. Neck: No tracheal deviation present. Cardiovascular: Normal rate, regular rhythm and normal heart sounds. Pulmonary/Chest: Effort normal and breath sounds normal. No stridor. No respiratory distres s. She has no wheezes. She has no rales. Abdominal: Soft. Bowel sounds are normal. She exhibits distension. Musculoskeletal: She exhibits no edema. Neurological: She is alert and oriented to person, place, and time. Skin: Skin is warm and dry. She is not diaphoretic. Psychiatric: Affect normal. 24 HOUR LABS: Recent Results (from the past 24 hour(s)) Hemoglobin and Hematocrit Result Value Ref Range Hgb 10.8 (L) 11.3 - 15.5 g/dL Hct 31.2 (L) 34.0 - 46.0 % Potassium Result Value Ref Range K 2.9 (L) 3.5 - 5.0 mmol/L Potassium Result Value Ref Range K 3.4 (L) 3.5 - 5.0 mmol/L Hemoglobin and Hematocrit Result Value Ref Range Hgb 10.2 (L) 11.3 - 15.5 g/dL Hct 28.7 (L) 34.0 - 46.0 % Red Blood Cells (PRBC) - Crossmatch and Hold Result Value Ref Range Product Code R5480J98 UNIT # [id number] UNIT ABO O UNIT RH POS Unit Status IS Blood Product Expiration Date and Time Product Blood Type Barcode 5100 Product Code R8961H46 UNIT # [id number] UNIT ABO O UNIT RH POS Unit Status RE Blood Product Expiration Date and Time [id number] Product Blood Type Barcode 5100 Hemoglobin and Hematocrit Result Value Ref Range Hgb 10.2 (L) 11.3 - 15.5 g/dL Hct 28.7 (L) 34.0 - 46.0 % Glucose, POC Date/Time Value Ref Range Status 05/11/2017 11:43 107 70 - 109 mg/dL Final 05/10/2017 20:57 130 (H) 70 - 109 mg/dL Final 05/10/2017 16:54 113 (H) 70 - 109 mg/dL Final Scheduled PRN albuterol-ipratropium 3 mL Nebulization RT Q6H amLODIPine 10 mg Oral Daily budesonide 0.25 mg Nebulization RT BID docusate-senna 2 tablet Oral BID pantoprazole 40 mg Intravenous BID propranolol 80 mg Oral Daily acetaminophen, albuterol-ipratropium, calcium gluconate IVPB, carboxymethylcellulose (PF), ondansetron, polyvinyl alcohol, sodium chloride All pertinent labs and imaging have been reviewed. Please refer to the Assessment and Plan for details on management. I spent 25 minutes with the patient and on the patient's unit, with over 50% spent in coun seling and/or coordination of care. Please refer to the Assessment and Plan for details. Electronically signed by: Riky Rodriguez MD 08/21/2017 9:50 Portions of this chart may have been created with [employer] voice recognition software. Occasi onal wrong-word or sound-alike substitutions may have occurred due to the inherent lobo itations of voice recognition software. Please read the chart carefully and recognize, using context, where these substitutions have occurred Krzysztof Ordaz MD - 08/20/2017 12:23 PM PDTFormatting of this note might be different f rom the original. [facility] [facility] General Surgery Team Hospital Day: 4 DATE/TIME: 08/20/2017 12:23 SUBJECTIVE Amy Coleman is now Hospital Day: 4 with intra-abdominal hematoma due to ruptured ri ght gastric artery aneurysm. Patient was extubated yesterday. She remained hemodynamically stable. Hemoglobin stable. She is awake and following commands and is on clear liquid t tolerating well. She is ambulant and was out of bed at the time of exam. She appears indigo y comfortable. OBJECTIVE Temp: 36.7 C (98 F) BP: 129/82 Pulse: 80 Resp: 17 SpO2: 100 % on Min/Max Temp past 24 hours:Temp Av.7 C (98 F) Min: 36.5 C (97.7 F) Max: 36. 9 C (98.4 F) Intake/Output Summary (Last 24 hours) at 08/20/17 1223 Last data filed at 08/20/17 1030 Gross per 24 hour Intake 1210 ml Output 5700 ml Net -4490 ml Wt. Admission: Weight: 69.2 kg (152 lb 8.9 oz) Wt. Current: Weight: 67.5 kg (148 lb 13 oz) Constitutional: Awake, follows commands. Comfortable CV: Regular rate and rhythm, S1S2 present or tachycardia present Pulmonary: Air entry decreased bilateral bases more decreased on the right base GI: Abdomen nondistended, tenderness appropriate, bowel sounds present. Chemistry: Lab Results Component Value Date NA 142 08/20/2017 K 3.5 08/20/2017 CO2 31 08/20/2017 BUN <5 08/20/2017 CREA 0.43 08/20/2017 GLU 88 08/20/2017 Hematology: Lab Results Component Value Date HGB 9.5 08/20/2017 HCT 27.1 08/20/2017 WBC 10.2 08/20/2017 Medications and labs were personally reviewed by me. IMPRESSION: 1. 62 y.o. year old female with hemorrhagic shock secondary to intra-abdominal bleeding fro m ruptured right gastric artery aneurysm status post interventional radiology guided coiling . Hemodynamically stable. Hemoglobin stable. Tolerating diet. PLAN: 1. Hemoglobin stable. Hemodynamically stable. Tolerating liquid diet. Advance diet as to lerated. No indication for general surgical intervention at this time. 2. Would not recommend drainage of the hematoma at this point. It likely will be absorbed over time. 3. Okay to transfer to floor from general surgical standpoint. 4. Management of COPD per medical team. 5. Okay to resume chemical DVT prophylaxis from general surgical standpoint. 6. Protonix as she is prone for gastritis due to ischemia. 7. Plan was discussed bedside with patient. 8. Plan was discussed with ICU physician Dr. James Total time spent greater than 35 minutes, at least 50% in counseling and coordination of ca re. Electronically Signed by: Krzysztof Montaño MD, 08/20/2017 12:23 [facility] Nadia Blount MD - 08/20/2017 10:02 AM PDT Patient: Amy Coleman Date of : 1955 Admit Date: 08/17/2017 Date of Service: 08/20/2017 PCP: Bry Vaughn DO Hospital Day: Hospital Day: 4 Hospital Course: Amy Coleman is a 62-year-old female with past medical history significant for COPD, CAD s/p NSTEMI ( no PCI), who was transferred to [facility] for ICU care from [place] on 08/17 wh ere she was intubated for hypercarbic respiratory failure as well as hemorrhagic shock secon barbara to intra-abdominal bleeding requiring MTP. CT abdomen revealed 20 x 8 x 11 cm area of bleeding in her abdomen. She had a diagnostic angiogram by intervention radiology on 08/17 that showed pseudoaneurysm of the gastric arteries with no active bleeding. Vascular surgery and general surgery follo wed the patient. Her hemoglobin continued to drop and repeat angiogram was performed by IR on 08/18 with embilization of gastric arteries. Hemoglobin stabilized. There have been no si gns of ischemic stomach or duodenum. She is on clear liquid diet and tolerating well. She has proximal celiac stenosis, vascular surgery does not recommend any acute interventio n. She was diuresed for volume overload. Patient was extubated on 08/19. For concerns for sepsi s upon admission she was treated with levofloxacin, blood culture and respiratory culture raya ve been negative since. Antibiotics have been stopped. Patient transferred to the floor on 08/20. Assessment and Plan: Assessment of active problems addressed today: Hemorrhagic shock secondary to intra-abdominal bleeding from right gastric artery pseudoane urysm Status post massive blood transfusion Status post embolization by interventional radiology on 08/18, no concern for ischemic stomac h or duodenum Hemoglobin stabilized Continue to monitor hemoglobin Transfuse as needed Acute respiratory failure with hypercarbia Status post extubation on 08/19 Lasix as needed Bronchodilators Monitor respiratory status Anemia Secondary to intra-abdominal bleeding Hemoglobin stabilized Monitor hemoglobin History of COPD Currently no signs of exacerbation Continue duo nebs and Pulmicort Monitor respiratory status O2 supplementation as needed Hypertension Blood pressure acceptable Restart home propranolol Started on amlodipine in the ICU Monitor blood pressure Active Hospital Problems Diagnosis Anemia Essential hypertension Pseudoaneurysm of visceral artery COPD (chronic obstructive pulmonary disease) Resolved Hospital Problems Diagnosis Hemorrhagic shock Respiratory failure with hypoxia and hypercapnia I have reviewed and updated the problem list. Disposition: TBD CODE STATUS: Full Code DVT prophylaxis: SCDs Subjective: CC: Patient seen sitting in chair, says she feels well. ROS Review of Systems : A 10 point ROS is otherwise negative unless mentioned in the CC or below. Constitutional: Negative for chills, fever, malaise/fatigue, generalized weakness, weight l oss. Eyes: Negative for blurred vision and double vision. Respiratory: Negative for cough, hemoptysis, sputum production, shortness of breath, wheezi ng. Cardiovascular: Negative for chest pain, palpitations, orthopnea, leg swelling. Gastrointestinal: + minimal abdominal pain, Negative for nausea and vomiting, blood in stoo l, constipation, diarrhea, melena, . Genitourinary: Negative for dysuria, flank pain, hematuria, retention. Musculoskeletal: Negative for back pain, joint pain, myalgias. Skin: Negative for itching and rash. Neurological: Negative for dizziness, focal weakness, headaches. Psychiatric/Behavioral: Alert and Oriented. Negative for depression and suicidal ideas. Objective: Vital Signs 08/18 699 - 08/19 0659 08/19 699 - 08/20 0659 08/20 699 - 08/20 1021 Most Rec ent Temp (C) 36.8 - 37.3 36.5 - 37.6 36.7 36.7 (98) Pulse 103 - 144 59 - 154 81 - 94 94 Resp (!)0 - 25 8 - (!)32 17 - 18 17 BP (!)78/58 - 145/87 100/59 - 133/65 133/65 Arterial Line BP 84/78 - 185/79 98/47 - 202/90 158/70 - 178/81 178/81 SpO2 (%) (!)87 - 100 95 - 100 100 100 Weight (kg) 67.5 67.5 kg (148 lb 13 oz) I/O last 3 completed shifts: In: 1672 [P.O.:340; I.V.:1072; Blood:260] Out: 4895 [Urine:4895] Wt Readings from Last 3 Encounters: 08/20/17 67.5 kg (148 lb 13 oz) 05/11/17 61.4 kg (135 lb 5.8 oz) Active Lines PICC Line PICC Line - Double Lumen 08/17/17 basilic vein (medial side of arm), left 3 days PIV Line Peripheral IV Line - Single Lumen 05/08/17 0130 Left Forearm aknt-nys-globlu catheter syst em 20 gauge 104 days Peripheral IV Line - Single Lumen 08/17/17 Right Forearm 3 days Arterial Line Arterial Line 08/18/17 1300 Right radial artery 20 gauge 1 day Active Tubes/Drains No matching active lines, drains, or airways Physical Exam Constitutional: No distress. Head: Normocephalic and atraumatic. Eyes: Conjunctivae and EOM are normal. Pupils are equal, round, and reactive to light. ENT/Moith: oral mucosa is moist. Neck: Normal range of motion. Neck supple. Cardiovascular: Normal rate and regular rhythm. Pulmonary/Chest: Normal Work of breathing, breath sounds normal. No wheeze, no rhonchi. Abdominal: Soft, non tender, non distended, Bowel sounds are present. There is no tendernes s, rebound and no guarding. Musculoskeletal: Normal range of motion. There is no edema. Neurological: There are no focal neurologic deficit. Psychiatric: AAOX 3, behavior is normal. Skin: warm and dry 24 HOUR LABS: Recent Results (from the past 24 hour(s)) Hemoglobin and Hematocrit Result Value Ref Range Hgb 9.6 (L) 11.3 - 15.5 g/dL Hct 27.6 (L) 34.0 - 46.0 % Blood Gas, Arterial Result Value Ref Range pH, Arterial 7.36 (L) 7.37 - 7.47 pCO2, Arterial 44 (H) 32 - 43 mmHg pO2, Arterial 91 (H) 65 - 80 mmHg Base Excess, Arterial -0.2 -2.5 - 2.5 mmol/L HCO3, Arterial 25.2 23.0 - 28.0 mmol/L FiO2 2L NC ROUTE 2L NC Rate 14 Methemoglobin, Venous 0.9 0.4 - 1.5 % Comment Sat=96% O2 Content, Arterial 13.3 (L) 15.0 - 23.0 % Carboxyhemoglobin 1.0 1.0 - 3.0 % Hgb 9.8 (L) 11.3 - 15.5 g/dL O2SAT COOX ARTERIAL 96.1 92.0 - 99.0 % Glucose, Respiratory Result Value Ref Range GLUCOSE 95 65 - 99 mg/dL Potassium Whole Blood Result Value Ref Range K 3.8 3.5 - 5.0 mmol/L CBC with Differential Result Value Ref Range WBC 10.2 3.8 - 11.0 K/uL RBC 3.05 (L) 3.70 - 5.10 M/uL Hgb 9.5 (L) 11.3 - 15.5 g/dL Hct 27.1 (L) 34.0 - 46.0 % MCV 88.8 80.0 - 100.0 fL MCH 31.2 27.0 - 34.0 pg MCHC 35.2 32.0 - 35.5 g/dL RDW-CV 14.3 11.0 - 15.5 % Platelet Count 121 (L) 150 - 400 K/uL MPV 8.1 7.5 - 11.2 fL % Neutrophils 79.5 (H) 40.0 - 75.0 % % Lymphocytes 11.4 (L) 15.0 - 48.0 % % Monocytes 8.4 0.0 - 12.0 % % Eosinophils 0.3 0.0 - 7.0 % % Basophils 0.4 0.0 - 2.0 % Absolute Neutrophils 8.10 (H) 1.90 - 7.40 K/uL Absolute Lymphocytes 1.16 1.00 - 3.90 K/uL Absolute Monocytes 0.86 (H) 0.00 - 0.80 K/uL Absolute Eosinophils 0.03 0.00 - 0.50 K/uL Absolute Basophils 0.04 0.00 - 0.10 K/uL Platelet Estimate Decreased Ovalocytes 1+ Comprehensive Metabolic Panel Result Value Ref Range NA 142 135 - 145 mmol/L K 3.5 3.5 - 5.0 mmol/L CL 105 99 - 109 mmol/L CO2 31 (H) 21 - 28 mmol/L CALCIUM 8.9 8.5 - 10.2 mg/dL ANION GAP 6 5 - 16 mmol/L ALBUMIN 3.7 3.3 - 4.8 g/dL BUN <5 (L) 8 - 25 mg/dL Creatinine, Serum/Plasma 0.43 (L) 0.50 - 1.00 mg/dL GLUCOSE 88 65 - 99 mg/dL Total protein 5.7 (L) 6.1 - 7.8 g/dL ALK PHOS 46 35 - 115 U/L ALT 74 (H) 10 - 65 U/L AST 33 10 - 45 U/L Bilirubin Total 0.6 0.2 - 1.1 mg/dL Estimated GFR 108 >=90 mL/min/1.73m2 Lactic Acid Result Value Ref Range Lactate, Venous 0.5 0.5 - 2.2 mmol/L Protime INR Result Value Ref Range Protime 13.9 12.0 - 14.2 sec INR 1.1 0.9 - 1.1 Glucose, POC Date/Time Value Ref Range Status 05/11/2017 11:43 107 70 - 109 mg/dL Final 05/10/2017 20:57 130 (H) 70 - 109 mg/dL Final 05/10/2017 16:54 113 (H) 70 - 109 mg/dL Final All pertinent labs and imaging have been reviewed. Please refer to the Assessment and Plan for details on management. I spent 40 minutes with the patient and on the patient's unit, with over 50% spent in coun seling and/or coordination of care. Please refer to the Assessment and Plan for details. Electronically signed by: Nadia Sutton MD 08/20/2017 10:21 Portions of this chart may have been created with [employer] voice recognition software. Occasi onal wrong-word or sound-alike substitutions may have occurred due to the inherent lobo itations of voice recognition software. Please read the chart carefully and recognize, using context, where these substitutions have occurred [email or web address], Vikram Mayes MD - 08/20/2017 5:28 AM PDT Critical Care Progress Note [facility] Date of Service: 08/20/2017 Admit Date: 08/17/2017 Pt. Name: Amy Coleman Age: 62 y.o. : 1955 Code Status: Full Code Hospital Day: 4 ICU Admit Date: 08/17/17 Reason for Critical Care: Intra-abdominal bleed Provider Teams: Primary: Critical care medicine IR General surgery Vascular surgery Background/Hospital Course: 62 year old lady with PMH of COPD, CAD s/p NSTEMI (no PCI, mild disease) presented to [facility] on 08/16 with shortness of breath and was intubated for hypercarbia. Later she was hypote nsive and CT abdomen revealed 20 x 8 x 11 area of bleeding in her abdomen. She was stabilize d after MTP and was then transferred here for general surgery, vascular surgery and interven tional radiology care. She underwent diagnostic angiogram and then a therapeutic angiogram o n 08/18. Extubated 08/19. Summary of Significant Events: 08/17: Diagnostic angiogram with pseudoaneurysm of the gastric arteries 08/18: IR angiogram for empiric embolization of right and left gastric arteries 08/19: Extubated, off vasopressors, up in chair 08/20: Up in chair and feeling well Assessment & Plan 62 year old lady with PMH of COPD, CAD s/p NSTEMI (no PCI, mild disease) presented to [facility] on 08/16 with shortness of breath and was intubated for hypercarbia. Later she was hypote nsive and CT abdomen revealed 20 x 8 x 11 area of bleeding in her abdomen. She was stabilize d after MTP and was then transferred here for general surgery, vascular surgery and interven tional radiology care. She underwent diagnostic angiogram and then a therapeutic angiogram o n 08/18. Extubated 08/19. 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 No signs of ischemic stomach or duodenum and doing well, francisca ating clears. - Possible sepsis on admission: No signs of infection and levofloxacin has been stopped. - Proximal celiac stenosis: Vascular surgery was consulted. No need for intervention. - History of COPD: No signs of exacerbation, hypercarbia at OSH could be secondary to hypov entilation of other reasons. On Duo-Neb and Pulmicort and stopped steroids for now unless wh eezing or bronchospastic. - Hypercarbic respiratory failure: Extubated successfully and doing well. - Volume overload: Diuresed. UO 3500 yesterday. Will diurese again today. - Intention tremor: Resume propranolol. 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 Scheduled bowel meds started. Indwelling Bladder Catheter Indication: Removed Subjective 24hr interval history: Did well with clears ROS: Mild abdominal pain, no nausea, vomiting, denies chest pain. All other systems are reviewed and are negative. Objective Vitals Current Average / Min / Max Temp 36.7 C (98.1 F) Temp Min: 36.5 C (97.7 F) Max: 37.6 C (99.7 F) BP 133/65 BP Min: 100/59 Max: 133/65 HR 82 Pulse Av.3 Min: 59 Max: 154 RR 16 Resp Av.1 Min: 8 Max: 32 Sats 100 % SpO2 Min: 95 % Max: 100 % Weight 69.2 kg (152 lb 8.9 oz) BMI: Body mass index is 25.39 kg/m. OXYGEN REQUIREMENT: SpO2: 100 % on 2L/min nasal cannula EXAM: General: Awake, alert, sitting in chair Opth: No icterus Resp: CTA bilaterally Cardiac: S1 and S2 GI: Soft, mild tenderness in epigastric region MSK: No deformity Vascular: Equal pulses in upper extremity Skin: No rash Neurologic: Awake, alert, coherent, moving all 4 LABORATORY: I personally reviewed recent labs in [facility] and ordered appropriate follow-up domonique dies. Recent Labs Lab 08/19/17 1720 08/19/17 1640 08/19/17 1018 08/19/17 0822 08/18/17 2328 08/18/17 0523 08/18/17 0209 WBC -- -- -- -- -- 11.8* -- 19.6* 19.0* HGB 9.8* 9.6* 9.3* 8.9* | 9.0* < > 7.5* < > 11.4 11.6 HCT -- 27.6* 28.5* 25.3* | 27.7* < > 21.4* < > 32.5* 33.4* PLT -- -- -- -- -- Decreased | 116* -- 159 147* < > = values in this interval not displayed. Recent Labs Lab 08/20/17 0414 08/19/17 1720 08/19/17 0615 08/19/17 0306 08/18/17 0523 08/17/17 2235 NA 142 -- -- 144 -- 140 -- 139 K 3.5 3.8 4.0 3.9 < > 3.8 < > 3.9 CL 105 -- -- 113* -- 109 < > 109 CO2 31* -- -- 25 -- 20* -- 19* BUN <5* -- -- 8 -- 11 -- 12 CREA 0.43* -- -- 0.57 -- 0.62 -- 0.64 CALCIUM 8.9 -- -- 8.5 -- 8.5 -- 6.9* ALT 74* -- -- -- -- -- -- 290* AST 33 -- -- -- -- -- -- 240* ALKPHOS 46 -- -- -- -- -- -- 53 BILITOT 0.6 -- -- -- -- -- -- 0.4 ALBUMIN 3.7 -- -- -- -- -- -- 3.3 < > = values in this interval not displayed. Recent Labs Lab 08/20/17 0414 08/19/17 0822 08/19/17 0615 LACTATE 0.5 1.5 2.3* Recent Labs Lab 08/20/17 0414 08/17/17 2241 INR 1.1 1.3* No results for input(s): TROPONIN, BNP in the last 168 hours. Invalid input(s): CKTOTAL Lab Results Component Value Date PHART 7.36 (L) 08/19/2017 [id number] 44 (H) 08/19/2017 PO2ART 91 (H) 08/19/2017 [id number] 13.3 (L) 08/19/2017 [id number] 25.2 08/19/2017 BEART -0.2 08/19/2017 CARBOXYHGB 1.0 08/19/2017 METHHGB 0.9 08/19/2017 IMAGING: I personally reviewed todays imaging tests: CXR The above conditions contribute to complex, high-level decision-making and to the high prob ability of acute, clinically significant deterioration. I personally spent 35 minutes in critical care time exclusive to this patient, and does not include time spent teaching or in procedures. SIGNED BY: Vikram James MD, 08/20/2017, 5:28 Portions of this chart may have been created with [employer] voice recognition software. Occasi onal wrong-word or sound-alike substitutions may have occurred due to the inherent lobo itations of voice recognition software. Please read the chart carefully and recognize, using context, where these substitutions have occurred. Krzysztof Ordaz MD - 08/19/2017 2:04 PM PDT [facility] General Surgery Team Hospital Day: 3 DATE/TIME: 08/19/2017 14:05 SUBJECTIVE Amy Coleman is now Hospital Day: 3 with intra-abdominal hematoma due to ruptured ri ght gastric artery aneurysm. At the time of exam patient was intubated on the vent. She wa s awake following commands. Appears comfortable. She remained hemodynamically stable overn ight. Hemoglobin was stable. OBJECTIVE Temp: 37.6 C (99.7 F) BP: 125/82 Pulse: 111 Resp: 21 SpO2: 100 % on Min/Max Temp past 24 hours:Temp Av.2 C (98.9 F) Min: 36.8 C (98.2 F) Max: 3 7.6 C (99.7 F) Intake/Output Summary (Last 24 hours) at 08/19/17 1405 Last data filed at 08/19/17 1400 Gross per 24 hour Intake 1993 ml Output 2465 ml Net -472 ml Wt. Admission: Weight: 69.2 kg (152 lb 8.9 oz) Wt. Current: Weight: 69.2 kg (152 lb 8.9 oz) Constitutional: Intubated, on the vent, follows commands CV: Regular rate and rhythm, S1S2 present or tachycardia present Pulmonary: Air entry decreased bilateral bases more decreased on the right base GI: Mild distention, tenderness upper abdomen, no signs of peritonitis, bowel sounds prese nt Chemistry: Lab Results Component Value Date NA 144 08/19/2017 K 4.0 08/19/2017 CO2 25 08/19/2017 BUN 8 08/19/2017 CREA 0.57 08/19/2017 GLU 105 08/19/2017 Hematology: Lab Results Component Value Date HGB 9.3 08/19/2017 HCT 28.5 08/19/2017 WBC 11.8 08/18/2017 Medications and labs were personally reviewed by me. IMPRESSION: 1. 62 y.o. year old female with hemorrhagic shock secondary to intra-abdominal bleeding fro m ruptured right gastric artery aneurysm status post interventional radiology guided coiling . PLAN: 1. She remained hemodynamically stable overnight, hemoglobin stable. It appears that the c atastrophe has passed. Embolization of the right gastric artery should not cause significan t ischemia to the stomach due to excellent supply. The hematoma is significant enough that it can delay function due to the pressure effect. If patient is extubated slowly start diet keep on clear liquids for now. 2. Would not recommend drainage of the hematoma at this point. It is likely it will be obs erved over time. 3. Monitor for signs of free bleed. 4. Management of ventilator, sedation, weaning from ventilator per ICU. 5. She does have history of COPD and was found to have 6. hypercarbic respiratory failure which could have been excised abated by intra-abdominal process.GI/VTE prophylaxis. 7. No chemical DVT prophylaxis for now. SCDs. 8. Protonix as she is prone for gastritis due to ischemia. 9. Plan was discussed bedside with family. 10. Plan was discussed with ICU physician Dr. James Total time spent greater than 35 minutes, at least 50% in counseling and coordination of ca re. Electronically Signed by: Krzysztof Montaño MD, 08/19/2017 14:05 [facility] Jarocho Saldaña V [employer] OFFICER - 08/19/2017 10:10 AM PDT 08/19/17 1009 Respiratory Assessment Interventions ~ Patient Assessment ~ Multi-disciplinary Rounds Continue current care. Q4 DuonebsElectronically signed by Jarocho Hunt V [employer] OFFICER at 2017 10:10 AM Volodymyr Peña RRT - 08/19/2017 9:19 AM PDTPt extubated to 3 lpm NC at 0 900. Pt resp pattern is shallow regular w/ mild WOB. BS clear and diminished, equal bilatera l. Pt demonstrated good vocal tone and no stridor present. Pt has a good Productive cough, secretions minimal. Montana Pinto PA-C - 08/19/2017 7:09 AM PDTFormatting of this note might be different from t kevin original. VASCULAR SURGERY PROGRESS NOTE Seen by Montana Cole PA-C on 08/19/2017 (Hospital Day: 3) 1 Day Post-Op PATIENT NAME: Amy Coleman DATE OF : 1955 MED RECORD: [id number] ASSESSMENT/PLAN PROCEDURE: mesenteric angiogram 08/18 ASSESSMENT: 1. Gastric artery pseudoaneurysm 2. GI bleed - 2/2 above - Hgb 8.7 3. Acute hypercapnic respiratory failure - failed SBT 4. Hemorrhagic shock - pressors per ICU team PLAN: 1. Timing of coil embolization of the right gastric artery TBD Please call with any questions ECTIVE Ms. Coleman's chart was reviewed in detail, and she was seen and examined by me. The patie nt is intubated. Opens eyes. OBJECTIVE Vitals: Temp: 36.8 C (98.2 F) BP: 100/59 Pulse: 121 Resp: 8 SpO2: 96 % Weight: Today's Weight: 69.2 kg (152 lb 8.9 oz) Admit Weight: 69.2 kg (152 lb 8.9 oz) MEDICATIONS: SCHEDULED: albuterol-ipratropium 3 mL Nebulization RT Q4H budesonide 0.25 mg Nebulization RT BID levoFLOXacin 750 mg Intravenous Daily pantoprazole 40 mg Intravenous Daily IV: fentaNYL 50 mcg/hr (08/19/17699) norepinephrine 4 mcg/min (08/19/17 07) propofol infusion Stopped (08/19/17 06) vasopressin (PITRESSIN) infusion (shock) Stopped (08/18/17 1100) PRN: albuterol-ipratropium, calcium gluconate IVPB, carboxymethylcellulose (PF), Magnesium repla cement - ICU AND magnesium sulfate AND magnesium sulfate, ondansetron, Potassium rep lacement - ICU AND potassium chloride AND potassium chloride AND potassium chlor anisha, Phosphate Replacement - ICU AND sodium phosphate IVPB AND sodium phosphate IVPB RECENT SELECT LAB: Recent Labs Lab 08/19/17 0615 08/19/17 0306 08/18/17 2328 08/18/17 0523 08/17/17 2241 WBC -- -- 11.8* -- 19.6* < > -- HGB 8.7* 7.5* 7.5* < > 11.4 < > -- HCT 26.7* 21.5* 21.4* < > 32.5* < > -- PLT -- -- Decreased | 116* -- 159 < > 172 INR -- -- -- -- -- -- 1.3* < > = values in this interval not displayed. Recent Labs Lab 08/19/17 0615 08/19/17 0306 08/18/17 1156 08/18/17 0523 NA -- 144 -- -- -- 140 K 4.0 3.9 < > 5.0 -- 3.8 BUN -- 8 -- -- -- 11 CREA -- 0.57 -- -- -- 0.62 MG -- -- -- -- -- 2.4 GLU -- 105* -- 118* < > 120* < > = values in this interval not displayed. Recent Labs Lab 08/19/1761408/18/172018 PHART 7.25* 7.34* PO2ART 58* 139* [id number] 53* 39 BEART -4.1* -4.5* EXAM: General Appearance - Intubated and sedated Neurologic - Moving all 4 extremities. Awake and gaging on ETT HEENT - Normocephalic, without obvious abnormality Heart - tachycardic. No MGR Lungs - Dim t/o. Scattered rhonchi Abdomen - Soft, non-tender, no masses Extremities - Warm with good cap refill, no significant edema Skin - Warm and dry, no rash noted Wound - none Vascular - Right Left Carotid Brachial Radial 2 2 Femoral Graft Popliteal Posterior Tibial Dorsalis Pedis 1 1 Associated attestation - Johnny Harmon MD - 08/19/2017 12:07 PM PDTPhysician Comments: P atient seen and examined. Agree with above assessment. Patient had successful coiling of r ight gastric yesterday by Dr Ha. Now extubated; off pressors; with essentially stable H gb. Groin access sites OK. We will sign off. Please call if questions or problems Johnny Harmon MD, FACS Erasmo Herron RN - 08/19/2017 6:59 AM PDTSBT this am at 0600 failed. Became acidot ic with a pH of 7.21. Placed back on rate to reevaluate later. Vikram Jesus MD - 08/19/2017 6:50 AM PDT Critical Care Progress Note [facility] Date of Service: 08/19/2017 Admit Date: 08/17/2017 Pt. Name: Amy Coleman Age: 62 y.o. : 1955 Code Status: TBD - Full Code by default Hospital Day: 3 ICU Admit Date: 08/17/17 Reason for Critical Care: Intra-abdominal bleed Provider Teams: Primary: Critical care medicine IR General surgery Vascular surgery Background/Hospital Course: 62 year old lady with PMH of COPD, CAD s/p NSTEMI (no PCI, mild disease) presented to [facility] on 08/16 with shortness of breath and was intubated for hypercarbia. Later she was hypote nsive and CT abdomen revealed 20 x 8 x 11 area of bleeding in her abdomen. She was stabilize d after MTP and was then transferred here for general surgery, vascular surgery and interven tional radiology care. She underwent diagnostic angiogram and then a therapeutic angiogram o n 08/18. Extubated 08/19. Summary of Significant Events: 08/17: Diagnostic angiogram with pseudoaneurysm of the gastric arteries 08/18: IR angiogram for empiric embolization of right and left gastric arteries 08/19: Extubated, off vasopressors, up in chair Assessment & Plan 62 year old lady with PMH of COPD, CAD s/p NSTEMI (no PCI, mild disease) presented to [facility] on 08/16 with shortness of breath and was intubated for hypercarbia. Later she was hypote nsive and CT abdomen revealed 20 x 8 x 11 area of bleeding in her abdomen. She was stabilize d after MTP and was then transferred here for general surgery, vascular surgery and interven tional radiology care. She underwent diagnostic angiogram and then a therapeutic angiogram o n 08/18. Extubated 08/19. 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 No signs of ischemic stomach or duodenum and doing well, francisca ating clears - Possible sepsis: No signs of infection and levofloxacin has been stopped. - Proximal celiac stenosis: Vascular surgery is following. No need for intervention. - History of COPD: No signs of exacerbation, hypercarbia at OSH could be secondary to hypov entilation of other reasons. Start Duo-Neb and Pulmicort and stop steroids for now unless wh eezing or bronchospastic. 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 Scheduled bowel meds started. Indwelling Bladder Catheter Indication: No longer indicated, will discontinue Subjective 24hr interval history: Extubated this AM ROS: Mild abdominal pain, no nausea, vomiting, denies chest pain. All other systems are reviewed and are negative. Objective Vitals Current Average / Min / Max Temp 36.8 C (98.2 F) Temp Min: 36.8 C (98.2 F) Max: 37.3 C (99.1 F) BP 121/75 BP Min: 78/58 Max: 145/87 HR 124 Pulse Av.2 Min: 103 Max: 144 RR 18 Resp Av.3 Min: 0 Max: 25 Sats 100 % SpO2 Min: 87 % Max: 100 % Weight 69.2 kg (152 lb 8.9 oz) BMI: Body mass index is 25.39 kg/m. OXYGEN REQUIREMENT: SpO2: 100 % on L/min mechanical ventilation EXAM: General: Awake, alert, sitting in chair Opth: No icterus Resp: CTA bilaterally Cardiac: S1 and S2 GI: Soft, mild tenderness in epigastric region MSK: No deformity Vascular: Equal pulses in upper extremity Skin: No rash Neurologic: Awake, alert, coherent, moving all 4 LABORATORY: I personally reviewed recent labs in [facility] and ordered appropriate follow-up domonique dies. Recent Labs Lab 08/19/17 0306 08/18/17 2328 08/18/17201808/18/17 0523 08/18/17 0209 WBC -- 11.8* -- -- 19.6* 19.0* HGB 7.5* 7.5* 7.9* < > 11.4 11.6 HCT 21.5* 21.4* 24.3* < > 32.5* 33.4* PLT -- Decreased | 116* -- -- 159 147* < > = values in this interval not displayed. Recent Labs Lab 08/19/17 0306 08/18/17201808/18/17 1156 08/18/17 0523 08/17/17 2239 08/17/17 223 NA 144 -- -- 140 -- 139 K 3.9 4.0 5.0 3.8 3.7 3.9 CL 113* -- -- 109 109 109 CO2 25 -- -- 20* -- 19* BUN 8 -- -- 11 -- 12 CREA 0.57 -- -- 0.62 -- 0.64 CALCIUM 8.5 -- -- 8.5 -- 6.9* ALT -- -- -- -- -- 290* AST -- -- -- -- -- 240* ALKPHOS -- -- -- -- -- 53 BILITOT -- -- -- -- -- 0.4 ALBUMIN -- -- -- -- -- 3.3 Recent Labs Lab 08/19/17 03008/18/17 2328 08/18/17 2019 LACTATE 1.8 1.8 2.7* Recent Labs Lab 08/17/17 2241 INR 1.3* No results for input(s): TROPONIN, BNP in the last 168 hours. Invalid input(s): CKTOTAL Lab Results Component Value Date PHART 7.34 (L) 08/18/2017 [id number] 39 08/18/2017 PO2ART 139 (H) 08/18/2017 [id number] 11.2 (L) 08/18/2017 [id number] 21.2 (L) 08/18/2017 BEART -4.5 (L) 08/18/2017 CARBOXYHGB 0.6 (L) 08/18/2017 METHHGB 0.9 08/18/2017 IMAGING: I personally reviewed todays imaging tests: CXR The above conditions contribute to complex, high-level decision-making and to the high prob ability of acute, clinically significant deterioration. I personally spent 35 minutes in critical care time exclusive to this patient, and does not include time spent teaching or in procedures. SIGNED BY: Vikram James MD, 08/19/2017, 6:50 Portions of this chart may have been created with [employer] voice recognition software. Occasi onal wrong-word or sound-alike substitutions may have occurred due to the inherent lobo itations of voice recognition software. Please read the chart carefully and recognize, using context, where these substitutions have occurred. Jackelyn Lubin MD - 0 08/18/2017 5:31 PM PDTDiscussed patient's condition with the family. The abnormal anatomy m akes it difficult to predict the implications of the embolized vessels that are bleeding whi ch may result in infarction off portion of his GI tract which would require an exploration a nd resection. At this time the risk of bleeding is much higher and therefore they understan d and agreed for us to proceed with the plan of embolization and occlusion of femoral vessel s shley Joseph ARNP - 0 08/18/2017 6:28 AM PDT Critical Care Progress Note [facility] Date of Service: 08/18/2017 Admit Date: 08/17/2017 Pt. Name: Amy Coleman Age: 62 y.o. : 1955 Code Status: TBD - Full Code by default Hospital Day: 2 ICU Admit Date: 08/17/2017 Reason for Critical Care: hemorrhagic shock, respiratory failure Provider Teams: Primary: ICU - primary, Dr James Consult: GALI Wiggins Consult: Vascular surgeon (JC) Background/Hospital Course: 62F w/ PMH COPD, CAD (NSTEMI in setting of respiratory arrest last Apr, cath showed mild di sease only, no PCI) presented to OSH ([place], [place]) initially w/ c/o SOB and was intubated for acute on chronic respiratory failure (ABG prior to intubation: 7.0/98/217/26). Pt then developed hypotension/HD instability for which she required 2 pressors. hgb fell from 15-- >4 and pt rc'd 6u PRBCs, 2uFFP, 1u PLT, 5L NS. CT abdomen showed RP hematoma and pt was tra nsferred to [facility] for further eval of this. 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 Gen surgery consulted as w ell as vascular to determine best approach to vascular issues given high potential for re bl eed. Summary of Significant Events: 08/17: Admitted to [facility]. Intubated. To IR 08/18: Awake, alert. NE 10mcg/Vaso off. Assessment & Plan Today's Plan: Discuss plan w/ vascular, IR, gen surg PSV but hold on extubation until interventional plan determined Trend labs (H&H Q6hrs) Problem List: Hypovolemic/hemorrhagic shock --2/2 large RP bleed. Imaging showed abnormal L/R gastric artery w/ many areas of aneurysm al dilatation. IR MD concerned that he would need to embolize entire vessel putting stomach at risk. Gen surg involved as well as vascular surgeon. Discussion ongoing re: bypass vs embolization vs gen surg intervention --NE/Vaso to keep MAP > 65 --Trend H&H. Transfuse as needed (last Hgb 11.6) --LA near normalized following resuscitation (2.0). Recheck prn Acute on chronic hypoxic/hypercarbic respiratory failure (COPD exacerbation, RLL PNA-CAP) --Underlying COPD. On PO pred. Given potential gastric issues will change to Medrol 40mg IV BID --Cont Levaquin for CAP (allergic to PCN, cephalosporins) --Vent protective strategies (TV 6-8ml/kg, PKs 22, weaned to 40%) --Duonebs --PSV trial ok but no plans to extubation until surgical/interventional plan in place CAD --NSTEMI earlier this year (Apr). Holding ASA for now. --Per notes, heart cath showed mild disease only. NSTEMI 2/2 respiratory failure/hypoxia RP bleed --Trend H&H. Will determine interventional plan this am. Palliative Care/Family Last Family Update: Dtr in law and grandson at bedside. I was able to introduce myself and discuss tentative plan for the day. 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 PRN bowel meds available. Indwelling Bladder Catheter Indication: Vasopressors for hemodynamic instability Subjective 24hr interval history: Transferred from [place] to [facility] Afebrile Rc'd 6u PRBCs, 2u FFP, 1u PLT ROS: No issues w/ pain. Awake and alert on vent. Able to self suction mouth. No c/o NV. Objective Vitals Current Average / Min / Max Temp 37.4 C (99.3 F) Temp Min: 36 C (96.8 F) Max: 37.4 C (99.3 F) BP 92/66 BP Min: 83/56 Max: 129/79 HR 110 Pulse Av.6 Min: 98 Max: 140 RR 18 Resp Av.4 Min: 15 Max: 24 Sats 97 % SpO2 Min: 96 % Max: 100 % Weight 69.2 kg (152 lb 8.9 oz) BMI: Body mass index is 25.39 kg/m. OXYGEN REQUIREMENT: SpO2: 97 % on L/min mechanical ventilation EXAM: General: well developed, NAD Opth: JACQUES Resp: Clear anterior, no wheezing Cardiac: RRR, no m/g/r GI: soft, non tender, non distended MSK: No edema Vascular: P x4 Skin: WPD Neurologic: Awake, alert, follows complex commands. LABORATORY: I personally reviewed recent labs in [facility] and ordered appropriate follow-up domonique dies. Recent Labs Lab 08/18/17 0527 08/18/17 0523 08/18/17 0209 08/17/17 2241 08/17/17 2235 WBC -- 19.6* 19.0* -- -- 18.5* HGB 11.7 11.4 11.6 -- < > 11.8 HCT 35.8 32.5* 33.4* -- < > 33.6* PLT -- 159 147* 172 -- 172 < > = values in this interval not displayed. Recent Labs Lab 08/18/17 0523 08/17/17 2239 08/17/17 2235 NA 140 -- 139 K 3.8 3.7 3.9 CL 109 109 109 CO2 20* -- 19* BUN 11 -- 12 CREA 0.62 -- 0.64 CALCIUM 8.5 -- 6.9* ALT -- -- 290* AST -- -- 240* ALKPHOS -- -- 53 BILITOT -- -- 0.4 ALBUMIN -- -- 3.3 Recent Labs Lab 08/18/17 0527 LACTATE 2.0* Recent Labs Lab 08/17/17 2241 INR 1.3* No results for input(s): TROPONIN, BNP in the last 168 hours. Invalid input(s): CKTOTAL Lab Results Component Value Date PHART 7.39 08/18/2017 [id number] 32 08/18/2017 PO2ART 108 (H) 08/18/2017 [id number] 16.2 08/18/2017 [id number] 19.4 (L) 08/18/2017 BEART -5.6 (L) 08/18/2017 CARBOXYHGB 0.7 (L) 08/18/2017 METHHGB 0.6 08/18/2017 IMAGING: I personally reviewed todays imaging tests: CXR: Low lung volumes, no infiltrate seen on imaging today The above conditions contribute to complex, high-level decision-making and to the high prob ability of acute, clinically significant deterioration. I personally spent 45 minutes in critical care time exclusive to this patient, and does not include time spent teaching or in procedures. SIGNED BY: LYUBOV Cruz, 08/18/2017, 6:28 Portions of this chart may have been created with [employer] voice recognition software. Occasi onal wrong-word or sound-alike substitutions may have occurred due to the inherent lobo itations of voice recognition software. Please read the chart carefully and recognize, using context, where these substitutions have occurred. Associated attestation - Vikram James MD - 08/18/2017 8:56 AM PDT Physician Attestation Note [facility] Date of Service: 08/18/2017 Reason for critical care: Hemorrhagic shock secondary to intra-abdominal bleeding I reviewed and discussed the patient history, assessment and plan with the KOLE, during pers onal discussion and/or multi-disciplinary rounds. Acute issues or additions to plan of care: 62 year old lady with PMH of COPD, CAD s/p NSTEMI (no PCI, mild disease) presented to [facility] on 08/16 with shortness of breath and was intubated for hypercarbia. Later she was hypote nsive and CT abdomen revealed 20 x 8 x 11 area of bleeding in her abdomen. She was stabilize d after MTP and was then transferred here for general surgery, vascular surgery and interven tional radiology care. Assessment: - Hemorrhagic shock secondary to intra-abdominal bleeding - Acute hypercarbic respiratory failure needing intubation - History of CAD Plan: - Hemorrhagic shock secondary to intra-abdominal bleeding: She received 6 units RBCs, 2 uun its FFP, 1 unit platelets, 5L LR. Emergent mesenteric angiogram last night with abnormal rig ht and left gastric artery with areas of aneurysmal dilatation and stenosis, no active hemor rhage, subtotal occlusion of proximal celiac artery. Hb has now been stable at 11. Does not seem to be on aspirin, clopidogrel or coumadin at home. Will trend Hb today. Next steps to b e decided after discussion with vascular surgery and general surgery. - Possible sepsis: Still needing NE at 10 mcg/min, echocardiography with hyperdynamic LV, C XR without focal consolidation, WBC was high at 19 K, no fever - probably stop antibiotics i n 48 hours if no source delineated. She is currently on levofloxacin. Trial albumin 500 cc to see if she is volume responsive. - History of COPD: No signs of exacerbation, hypercarbia at OSH could be secondary to hypov entilation of other reasons. Start Duo-Neb and Pulmicort and stop steroids for now unless wh eezing or bronchospastic. - Hypercarbic respiratory failure: pCO2 was 98 at OSH and was intubated for hypercarbia. No w has resolved and monitor closely. Could be extubated if remains stable and no plans for in tervention from other services. I personally spent 35 minutes in critical care time exclusive to this patient, and does not include time spent teaching or in procedures. Vikram James MD, 08/18/2017, 8:25 Portions of this chart may have been created with [employer] voice recognition software. Occasi onal wrong-word or sound-alike substitutions may have occurred due to the inherent lobo itations of voice recognition software. Please read the chart carefully and recognize, using context, where these substitutions have occurred.Ever Chicas RN - 08/18/2017 1:10 AM PDTBack from interventional radiology, titrated off vasoactive medications during IR. No ac tive bleeding found. Faby Garcia MD - 08/17/2017 11:54 PM PDTFormatting of this note might be different from the o riginal. . Critical Care-Care Progress Note Update [facility] Date of Service: 08/17/2017 Admit Date: 08/17/2017 Pt. Name: Amy Coleman Age: 62 y.o. : 1955 Code Status: TBD - Full Code by default Attending: Faby Rodriguez MD Hospital Day: Hospital Day: 1 Complaints or concerns: OSH transfer for RP bleed, Hgb 4 on arrival to OSH ED. Please refer to H&H for more details. - Discussed with IR and surgery. Plan for IR tonight. OBJ Data: Vitals Current Average / Min / Max Temp 36 C (96.8 F) Temp Min: 36 C (96.8 F) Max: 36 C (96.8 F) BP No Data Recorded HR No Data Recorded RR No Data Recorded Sats No Data Recorded Weight BMI: There is no height or weight on file to calculate BMI. OXYGEN REQUIREMENT: on L/min Exam: Intubated, responding appropriately. Complaining of abdominal pain. Lungs clear, ta chycardic, no murmurs. Abd distended, very painful to palpation. LE cool. No peripheral e seth. Assessment/Plan: 1. Pt needs emergent IR to evaluate ?arterial bleed seen on CT earlier today. She arrives t o our ICU on low dose levo, awake and alert on ventilator. Explained situation to patient, she agrees with plan. I called and discussed plans with son, Joseluis ([phone]). He expre ssed understanding and wanted to proceed with procedure. I told him that radiologist would be calling him shortly to obtain formal consent. However now he is not answering his phone, so formal consent is unable to be obtained. Given the emergent nature of the situation, we will proceed for IR intervention. The above conditions contribute to complex, high-level decision-making and to the high prob ability of acute, clinically significant deterioration. I personally spent 20 minutes in critical care time exclusive to this patient, and does not include time spent teaching or in procedures. Electronically signed by: Faby Rodriguez MD 08/17/2017 23:55 ICU medicine Portions of this chart may have been created with [employer] voice recognition software. Occasi onal wrong-word or sound-alike substitutions may have occurred due to the inherent lobo itations of voice recognition software. Please read the chart carefully and recognize, using context, where these substitutions have occurred. Ever Piper RN - 08/2017 10:20 PM PDTPatient arrived from OSH on vasopressin and low dose norepinephrine, int ubated on FiO2 50%. Settled into bed. Lung sounds clear/diminished. Tucked in, IR consult ed. documented in this encounter Plan of Treatment +--------+---------+ + + + | Date | Type | Specialty | Care Team | Description | +--------+---------+ + + + | 06/26/ | Office | Cardiology | Aaron Zimmerman, | | | 2019 | Visit | | MD Katelyn MAGALLON | | | | | | [place] | | | | | | [id number] | | | | | | | | +--------+---------+ + + + + + +--------+ + + | Name | Type | Priori | Associated Diagnoses | Date/Time | | | | ty | | | + + +--------+ + + | Type and Screen | Blood Bank | Routin | | 08/18/2017 2:09 AM | | | | e | | PDT | + + +--------+ + + | Type and Screen | Blood Bank | Routin | | 08/19/2017 4:10 AM | | | | e | | PDT | + + +--------+ + + | Red Blood Cells | Blood - | Routin | | 08/19/2017 4:46 AM | | (PRBC) - Transfuse | Nursing | e | | PDT | | | Transfusion | | | | + + +--------+ + + | ECG 12 lead | ECG | Routin | | 08/20/2017 2:03 PM | | | | e | | PDT | + + +--------+ + + + + +--------+ + + | Name | Type | Priori | Associated Diagnoses | Order Schedule | | | | ty | | | + + +--------+ + + | Ambulatory referral | Outpatient | Routin | Pseudoaneurysm of | Ordered: 08/23/2017 | | to Vascular Surgery | Referral | e | visceral artery | | | | | | (HCC) | | + + +--------+ + + documented as of this encounter Procedures + +--------+ + + + | Procedure Name | Priori | Date/Time | Associated Diagnosis | Comments | | | ty | | | | + +--------+ + + + | CBC NO DIFFERENTIAL | Routin | 08/23/2017 | | Results for this | | | e | 4:15 AM | | procedure are in the | | | | PDT | | results section. | + +--------+ + + + | COMPREHENSIVE | Routin | 08/23/2017 | | Results for this | | METABOLIC PANEL | e | 4:15 AM | | procedure are in the | | | | PDT | | results section. | + +--------+ + + + | CBC NO DIFFERENTIAL | Routin | 08/22/2017 | | Results for this | | | e | 3:19 AM | | procedure are in the | | | | PDT | | results section. | + +--------+ + + + | COMPREHENSIVE | Routin | 08/22/2017 | | Results for this | | METABOLIC PANEL | e | 3:19 AM | | procedure are in the | | | | PDT | | results section. | + +--------+ + + + | HEMOGLOBIN AND | Timed | 08/21/2017 | | Results for this | | HEMATOCRIT | | 12:12 PM | | procedure are in the | | | | PDT | | results section. | + +--------+ + + + | HEMOGLOBIN AND | Routin | 08/21/2017 | | Results for this | | HEMATOCRIT | e | 4:33 AM | | procedure are in the | | | | PDT | | results section. | + +--------+ + + + | PRODUCT: RBC | Routin | 08/21/2017 | | Results for this | | | e | 2:48 AM | | procedure are in the | | | | PDT | | results section. | + +--------+ + + + | HEMOGLOBIN AND | Routin | 08/20/2017 | | Results for this | | HEMATOCRIT | e | 8:05 PM | | procedure are in the | | | | PDT | | results section. | + +--------+ + + + | POTASSIUM | Timed | 08/20/2017 | | Results for this | | | | 4:00 PM | | procedure are in the | | | | PDT | | results section. | + +--------+ + + + | HEMOGLOBIN AND | Routin | 08/20/2017 | | Results for this | | HEMATOCRIT | e | 12:30 PM | | procedure are in the | | | | PDT | | results section. | + +--------+ + + + | POTASSIUM | Routin | 08/20/2017 | | Results for this | | | e | 12:30 PM | | procedure are in the | | | | PDT | | results section. | + +--------+ + + + | PROTIME INR | Routin | 08/20/2017 | | Results for this | | | e | 4:14 AM | | procedure are in the | | | | PDT | | results section. | + +--------+ + + + | CBC WITH | Routin | 08/20/2017 | | Results for this | | DIFFERENTIAL | e | 4:14 AM | | procedure are in the | | | | PDT | | results section. | + +--------+ + + + | LACTIC ACID | Routin | 08/20/2017 | | Results for this | | | e | 4:14 AM | | procedure are in the | | | | PDT | | results section. | + +--------+ + + + | COMPREHENSIVE | Routin | 08/20/2017 | | Results for this | | METABOLIC PANEL | e | 4:14 AM | | procedure are in the | | | | PDT | | results section. | + +--------+ + + + | XR CHEST AP PORTABLE | STAT | 08/19/2017 | | Results for this | | | | 6:53 PM | | procedure are in the | | | | PDT | | results section. | + +--------+ + + + | GLUCOSE, RESPIRATORY | STAT | 08/19/2017 | | Results for this | | | | 5:20 PM | | procedure are in the | | | | PDT | | results section. | + +--------+ + + + | BLOOD GAS, ARTERIAL | STAT | 08/19/2017 | | Results for this | | | | 5:20 PM | | procedure are in the | | | | PDT | | results section. | + +--------+ + + + | POTASSIUM, WHOLE | STAT | 08/19/2017 | | Results for this | | BLOOD | | 5:20 PM | | procedure are in the | | | | PDT | | results section. | + +--------+ + + + | HEMOGLOBIN AND | Routin | 08/19/2017 | | Results for this | | HEMATOCRIT | e | 4:40 PM | | procedure are in the | | | | PDT | | results section. | + +--------+ + + + | PADMA PANEL, QUANT | Routin | 08/19/2017 | | Results for this | | | e | 10:18 AM | | procedure are in the | | | | PDT | | results section. | + +--------+ + + + | BLOOD GAS, ARTERIAL | STAT | 08/19/2017 | | Results for this | | | | 10:18 AM | | procedure are in the | | | | PDT | | results section. | + +--------+ + + + | LACTIC ACID, | STAT | 08/19/2017 | | Results for this | | ARTERIAL, | | 8:22 AM | | procedure are in the | | RESPIRATORY | | PDT | | results section. | + +--------+ + + + | BLOOD GAS, ARTERIAL | STAT | 08/19/2017 | | Results for this | | | | 8:22 AM | | procedure are in the | | | | PDT | | results section. | + +--------+ + + + | HEMOGLOBIN AND | Routin | 08/19/2017 | | Results for this | | HEMATOCRIT | e | 8:22 AM | | procedure are in the | | | | PDT | | results section. | + +--------+ + + + | CULTURE, | Routin | 08/19/2017 | | Results for this | | RESPIRATORY, LOWER, | e | 7:33 AM | | procedure are in the | | SMEAR | | PDT | | results section. | + +--------+ + + + | LACTIC ACID, | STAT | 08/19/2017 | | Results for this | | ARTERIAL, | | 6:15 AM | | procedure are in the | | RESPIRATORY | | PDT | | results section. | + +--------+ + + + | BLOOD GAS, ARTERIAL | STAT | 08/19/2017 | | Results for this | | | | 6:15 AM | | procedure are in the | | | | PDT | | results section. | + +--------+ + + + | POTASSIUM, WHOLE | STAT | 08/19/2017 | | Results for this | | BLOOD | | 6:15 AM | | procedure are in the | | | | PDT | | results section. | + +--------+ + + + | VITAMIN D, | Routin | 08/19/2017 | | Results for this | | DEFICIENCY SCREEN | e | 3:06 AM | | procedure are in the | | (25-HYDROXY) | | PDT | | results section. | + +--------+ + + + | HEMOGLOBIN AND | Routin | 08/19/2017 | | Results for this | | HEMATOCRIT | e | 3:06 AM | | procedure are in the | | | | PDT | | results section. | + +--------+ + + + | LACTIC ACID | Routin | 08/19/2017 | | Results for this | | | e | 3:06 AM | | procedure are in the | | | | PDT | | results section. | + +--------+ + + + | BASIC METABOLIC | Routin | 08/19/2017 | | Results for this | | PANEL | e | 3:06 AM | | procedure are in the | | | | PDT | | results section. | + +--------+ + + + | CBC WITH | Routin | 08/18/2017 | | Results for this | | DIFFERENTIAL | e | 11:28 PM | | procedure are in the | | | | PDT | | results section. | + +--------+ + + + | LACTIC ACID | STAT | 08/18/2017 | | Results for this | | | | 11:28 PM | | procedure are in the | | | | PDT | | results section. | + +--------+ + + + | LACTIC ACID, | STAT | 08/18/2017 | | Results for this | | ARTERIAL, | | 8:19 PM | | procedure are in the | | RESPIRATORY | | PDT | | results section. | + +--------+ + + + | CALCIUM, IONIZED, | STAT | 08/18/2017 | | Results for this | | RESPIRATORY | | 8:19 PM | | procedure are in the | | | | PDT | | results section. | + +--------+ + + + | BLOOD GAS, ARTERIAL | STAT | 08/18/2017 | | Results for this | | | | 8:19 PM | | procedure are in the | | | | PDT | | results section. | + +--------+ + + + | POTASSIUM, WHOLE | STAT | 08/18/2017 | | Results for this | | BLOOD | | 8:19 PM | | procedure are in the | | | | PDT | | results section. | + +--------+ + + + | LACTIC ACID | STAT | 08/18/2017 | | Results for this | | | | 8:07 PM | | procedure are in the | | | | PDT | | results section. | + +--------+ + + + | EXTRA HOLD TUBE(S) | Routin | 08/18/2017 | | Results for this | | | e | 8:00 PM | | procedure are in the | | | | PDT | | results section. | + +--------+ + + + | HEMOGLOBIN AND | Routin | 08/18/2017 | | Results for this | | HEMATOCRIT | e | 7:57 PM | | procedure are in the | | | | PDT | | results section. | + +--------+ + + + | IR ANGIO | [facility]A | 08/18/2017 | | Results for this | | ABDOMEN/PELVIC/VISCE | | 4:15 PM | | procedure are in the | | RAL/RENAL | | PDT | | results section. | + +--------+ + + + | HEMOGLOBIN AND | Timed | 08/18/2017 | | Results for this | | HEMATOCRIT | | 1:32 PM | | procedure are in the | | | | PDT | | results section. | + +--------+ + + + | LACTIC ACID, VENOUS | STAT | 08/18/2017 | | Results for this | | | | 11:56 AM | | procedure are in the | | | | PDT | | results section. | + +--------+ + + + | GLUCOSE, RESPIRATORY | STAT | 08/18/2017 | | Results for this | | | | 11:56 AM | | procedure are in the | | | | PDT | | results section. | + +--------+ + + + | CALCIUM, IONIZED, | STAT | 08/18/2017 | | Results for this | | RESPIRATORY | | 11:56 AM | | procedure are in the | | | | PDT | | results section. | + +--------+ + + + | BLOOD GAS, VENOUS | STAT | 08/18/2017 | | Results for this | | | | 11:56 AM | | procedure are in the | | | | PDT | | results section. | + +--------+ + + + | POTASSIUM, WHOLE | STAT | 08/18/2017 | | Results for this | | BLOOD | | 11:56 AM | | procedure are in the | | | | PDT | | results section. | + +--------+ + + + | HEMOGLOBIN AND | Routin | 08/18/2017 | | Results for this | | HEMATOCRIT | e | 11:56 AM | | procedure are in the | | | | PDT | | results section. | + +--------+ + + + | CULTURE, BLOOD | Routin | 08/18/2017 | | Results for this | | | e | 9:39 AM | | procedure are in the | | | | PDT | | results section. | + +--------+ + + + | CULTURE, BLOOD | Routin | 08/18/2017 | | Results for this | | | e | 9:35 AM | | procedure are in the | | | | PDT | | results section. | + +--------+ + + + | ECHO COMPLETE | STAT | 08/18/2017 | | Results for this | | | | 7:59 AM | | procedure are in the | | | | PDT | | results section. | + +--------+ + + + | LACTIC ACID, | STAT | 08/18/2017 | | Results for this | | ARTERIAL, | | 5:27 AM | | procedure are in the | | RESPIRATORY | | PDT | | results section. | + +--------+ + + + | GLUCOSE, RESPIRATORY | STAT | 08/18/2017 | | Results for this | | | | 5:27 AM | | procedure are in the | | | | PDT | | results section. | + +--------+ + + + | CALCIUM, IONIZED, | STAT | 08/18/2017 | | Results for this | | RESPIRATORY | | 5:27 AM | | procedure are in the | | | | PDT | | results section. | + +--------+ + + + | BLOOD GAS, ARTERIAL | STAT | 08/18/2017 | | Results for this | | | | 5:27 AM | | procedure are in the | | | | PDT | | results section. | + +--------+ + + + | PROCALCITONIN, SERUM | Add-On | 08/18/2017 | | Results for this | | | | 5:23 AM | | procedure are in the | | | | PDT | | results section. | + +--------+ + + + | CBC NO DIFFERENTIAL | Routin | 08/18/2017 | | Results for this | | | e | 5:23 AM | | procedure are in the | | | | PDT | | results section. | + +--------+ + + + | PHOSPHORUS | Routin | 08/18/2017 | | Results for this | | | e | 5:23 AM | | procedure are in the | | | | PDT | | results section. | + +--------+ + + + | MAGNESIUM | Routin | 08/18/2017 | | Results for this | | | e | 5:23 AM | | procedure are in the | | | | PDT | | results section. | + +--------+ + + + | BASIC METABOLIC | Routin | 08/18/2017 | | Results for this | | PANEL | e | 5:23 AM | | procedure are in the | | | | PDT | | results section. | + +--------+ + + + | XR CHEST AP PORTABLE | Routin | 08/18/2017 | | Results for this | | | e | 4:59 AM | | procedure are in the | | | | PDT | | results section. | + +--------+ + + + | URINALYSIS WITH | Routin | 08/18/2017 | | Results for this | | MICROSCOPIC WITH | e | 4:22 AM | | procedure are in the | | CULTURE IF INDICATED | | PDT | | results section. | + +--------+ + + + | SODIUM, URINE, | Routin | 08/18/2017 | | Results for this | | RANDOM | e | 4:22 AM | | procedure are in the | | | | PDT | | results section. | + +--------+ + + + | MRSA NAAT | Routin | 08/18/2017 | | Results for this | | | e | 2:09 AM | | procedure are in the | | | | PDT | | results section. | + +--------+ + + + | CBC NO DIFFERENTIAL | Routin | 08/18/2017 | | Results for this | | | e | 2:09 AM | | procedure are in the | | | | PDT | | results section. | + +--------+ + + + | IR PROCEDURE | Routin | 08/18/2017 | | Results for this | | | e | 1:09 AM | | procedure are in the | | | | PDT | | results section. | + +--------+ + + + | IR EMBOLIZATION | | 08/17/2017 | GI BLEED | | | | | 11:49 PM | | | | | | PDT | | | + +--------+ + + + | DIC PANEL | Routin | 08/17/2017 | | Results for this | | | e | 10:41 PM | | procedure are in the | | | | PDT | | results section. | + +--------+ + + + | GLUCOSE, RESPIRATORY | Routin | 08/17/2017 | | Results for this | | | e | 10:39 PM | | procedure are in the | | | | PDT | | results section. | + +--------+ + + + | CHLORIDE, | Routin | 08/17/2017 | | Results for this | | RESPIRATORY | e | 10:39 PM | | procedure are in the | | | | PDT | | results section. | + +--------+ + + + | CALCIUM, IONIZED, | Routin | 08/17/2017 | | Results for this | | RESPIRATORY | e | 10:39 PM | | procedure are in the | | | | PDT | | results section. | + +--------+ + + + | BLOOD GAS, ARTERIAL | Routin | 08/17/2017 | | Results for this | | | e | 10:39 PM | | procedure are in the | | | | PDT | | results section. | + +--------+ + + + | POTASSIUM, WHOLE | Routin | 08/17/2017 | | Results for this | | BLOOD | e | 10:39 PM | | procedure are in the | | | | PDT | | results section. | + +--------+ + + + | ABO RH | STAT | 08/17/2017 | | Results for this | | | | 10:35 PM | | procedure are in the | | | | PDT | | results section. | + +--------+ + + + | CBC WITH | [facility] | 08/17/2017 | | Results for this | | DIFFERENTIAL | | 10:35 PM | | procedure are in the | | | | PDT | | results section. | + +--------+ + + + | PHOSPHORUS | Add-On | 08/17/2017 | | Results for this | | | | 10:35 PM | | procedure are in the | | | | PDT | | results section. | + +--------+ + + + | MAGNESIUM | [facility]ALA | 08/17/2017 | | Results for this | | | | 10:35 PM | | procedure are in the | | | | PDT | | results section. | + +--------+ + + + | COMPREHENSIVE | [facility] | 08/17/2017 | | Results for this | | METABOLIC PANEL | | 10:35 PM | | procedure are in the | | | | PDT | | results section. | + +--------+ + + + | TYPE AND SCREEN | STAT | 08/17/2017 | | Results for this | | | | 10:30 PM | | procedure are in the | | | | PDT | | results section. | + +--------+ + + + | IMAGING REPORT - | | 08/17/2017 | | Results for this | | EXTERNAL SCAN | | 12:00 AM | | procedure are in the | | | | PDT | | results section. | + +--------+ + + + | LABS - EXTERNAL SCAN | | 08/17/2017 | | Results for this | | | | 12:00 AM | | procedure are in the | | | | PDT | | results section. | + +--------+ + + + documented in this encounter Results Comprehensive Metabolic Panel (08/23/2017 4:15 AM PDT) + + + + + + | Component | Value | Ref Range | Performed | Pathologist | | | | | At | Signature | + + + + + + | Na | 142 | 135 - 145 | [facility] | | | | | mmol/L | [facility] | [facility] | | | | | | [facility] | | | | | | [facility] | | + + + + + + | K | 3.4 (L) | 3.5 - 5.0 | [facility] | | | | | mmol/L | [facility] | | [facility] | | | [facility] | | | | | | [facility] | | | | | | [facility] | | + + + + + + | Cl | 104 | 99 - 109 mmol/L | [facility] | | | | | | [facility] | | [facility] | | | | | | [facility] | | | | | | [facility] | | + + + + + + | CO2 | 30 (H) | 21 - 28 mmol/L | [facility] | | | | [facility] | | [facility] | | | | | | [facility] | | | | | | [facility] | | + + + + + + | Calcium | 8.6 | 8.5 - 10.2 | [facility] | | | | | mg/dL | [facility] | | [facility] | | | | | | [facility] | | | | | | [facility] | | + + + + + + | Anion Gap | 8 | 5 - 16 mmol/L | [facility] | | | | [facility] | [facility] | | | | | | [facility] | | | | | | [facility] | | + + + + + + | Albumin | 3.6 | 3.3 - 4.8 g/dL | [facility] | | | [facility] | [facility] | | | | | | [facility] | | | | | | [facility] | | + + + + + + | BUN | 13 | 8 - 25 mg/dL | [facility] | | | | [facility] | [facility] | | | | | | [facility] | | | | | | [facility] | | + + + + + + | Creatinine | 0.46 (L) | 0.50 - 1.00 | [facility] | | | | | mg/dL | [facility] | | [facility] | [facility] | | | | | | [facility] | | | | | | [facility] | | + + + + + + | Glucose | 94 | 65 - 99 mg/dL | [facility] | | | | [facility] | [facility] | | | | | [facility] | | | | | | [facility] | | | | | | [facility] | | + + + + + + | Total | 5.9 (L) | 6.1 - 7.8 g/dL | [facility] | | | Protein | | | [facility] | | | | [facility] | | | | | | [facility] | | | | | | [facility] | | | | | | [facility] | | + + + + + + | Alkaline | 46 | 35 - 115 U/L | [facility] | | | Phosphatase | | | [facility] | | | | | | [facility] | | | | | | [facility] | | | | | | LAB[facility]ORY | | | | | | [facility] | | + + + + + + | ALT | 30 | 10 - 65 U/L | [facility] | | | | | | [facility] | | | | | | MEDICAL | | | | | | CENTER | | | | | | LABORATORY | | | | | | CERNER | | + + + + + + | AST | 24 | 10 - 45 U/L | [facility] | | | | | | [facility] | | [facility] | | [facility] | | | | | | MEDICAL | | | | | | CENTER | | | | | | LABORATORY | | | | | | CERNER | | + + + + + + | Bilirubin | 1.4 (H) | 0.2 - 1.1 mg/dL | [facility] | | | Total | | | [facility] | | | | | | HE[facility] | | | | | | MEDICAL | | | | | | CENTER | | | | | | LABORATORY | | | | | | CERNER | | + + + + + + | Estimated | 105Comment: eGFR<60 | >=90 | [facility] | | | GFR | consistent with impaired | mL/min/1.73m2 | [facility] | | | | kidney | | HEART | | | | function.Performed by | | MEDICAL | | | | [facility] [address], | | CENTER | | | | [place] [address] | | LABORATORY | | | | | | CERNER | | + + + + + + + + | Specimen | + + | Blood specimen | | (specimen) | + + + + + + + | Performing | Address | City/State/Zipcode | Phone Number | | Organization | | | | + + + + + | GILBERTO NICHOLAS | [address] | [place] [address] | | | [facility] | | | | | LABORATORY CERNER | | | | + + + + + CBC no Differential (08/23/2017 4:15 AM PDT) + + + + + + | Component | Value | Ref Range | Performed | Pathologist | | | | | At | Signature | + + + + + + | WBC | 8.1 | 3.8 - 11.0 K/uL | [facility] | | | | | | [facility] | | | | | | HE[facility] | | | | | | MEDICAL | | | | | | CENTER | | | | | | LABORATORY | | | | | | CERNER | | + + + + + + | RBC | 3.27 (L) | 3.70 - 5.10 | [facility] | | | | | M/uL | [facility] | | | | | | HEART | | | | | | MEDICAL | | | | | | CENTER | | | | | | LABORATORY | | | | | | CERNER | | + + + + + + | Hemoglobin | 10.2 (L) | 11.3 - 15.5 | [facility] | | | | | g/dL | [facility] | | | | | | HEART | | | | | | MEDICAL | | | | | | CENTER | | | | | | LABORATORY | | | | | | CERNER | | + + + + + + | Hct | 29.2 (L) | 34.0 - 46.0 % | [facility] | | | | | | [facility] | | | | | | HEART | | | | | | MEDICAL | | | | | | CENTER | | | | | | LABORATORY | | | | | | CERNER | | + + + + + + | MCV | 89.2 | 80.0 - 100.0 fL | [facility] | | | | | | [facility] | | | | | | HE[facility] | | | | | | MEDICAL | | | | | | CENTER | | | | | | LABORATORY | | | | | | CERNER | | + + + + + + | MCH | 31.3 | 27.0 - 34.0 pg | [facility] | | | | | | [facility] | | | | | | HEART | | | | | | MEDICAL | | | | | | CENTER | | | | | | LABORATORY | | | | | | CERNER | | + + + + + + | MCHC | 35.1 | 32.0 - 35.5 | [facility] | | | | | g/dL | [facility] | | | | | | HEART | | | | | | MEDICAL | | | | | | CENTER | | | | | | LABORATORY | | | | | | CERNER | | + + + + + + | RDW-CV | 14.3 | 11.0 - 15.5 % | [facility] | | | | | | [facility] | | | | | | HEART | | | | | | MEDICAL | | | | | | CENTER | | | | | | LABORATORY | | | | | | CERNER | | + + + + + + | Platelet | 205 | 150 - 400 K/uL | [facility] | | | Count | | | [facility] | | | | | | HEART | | | | | | MEDICAL | | | | | | CENTER | | | | | | LABORATORY | | | | | | CERNER | | + + + + + + | MPV | 7.4 (L)Comment: | 7.5 - 11.2 fL | [facility] | | | | Performed by [facility] [address] | | [facility] | | | | [address] [place] | | HEART | | | | [address] | | MEDICAL | | | | | | CENTER | | | | | | LABORATORY | | | | | | CERNER | | + + + + + + + + | Specimen | + + | Blood specimen | | (specimen) | + + + + + + + | Performing | Address | City/State/Zipcode | Phone Number | | Organization | | | | + + + + + | GILBERTO NICHOLAS | [address] | [place] [address] | | | [facility] | | | | | [place] | | | | + + + + + Comprehensive Metabolic Panel (08/22/2017 3:19 AM PDT) + + + + + + | Component | Value | Ref Range | Performed | Pathologist | | | | | At | Signature | + + + + + + | Na | 143 | 135 - 145 | [facility] | | | | | mmol/L | [facility] | | | | | | HEART | | | | | | MEDICAL | | | | | | CENTER | | | | | | LABORATORY | | | | | | CERNER | | + + + + + + | K | 3.1 (L) | 3.5 - 5.0 | [facility] | | | | | mmol/L | [facility] | | | | | | HEART | | | | | | MEDICAL | | | | | | CENTER | | | | | | LABORATORY | | | | | | CERNER | | + + + + + + | Cl | 100 | 99 - 109 mmol/L | [facility] | | | | | | [facility] | | | | | | HEART | | | | | | MEDICAL | | | | | | CENTER | | | | | | LABORATORY | | | | | | CERNER | | + + + + + + | CO2 | 34 (H) | 21 - 28 mmol/L | [facility] | | | | | | [facility] | | | | | | HEART | | | | | | MEDICAL | | | | | | CENTER | | | | | | LABORATORY | | | | | | CERNER | | + + + + + + | Calcium | 9.1 | 8.5 - 10.2 | [facility] | | | | | mg/dL | [facility] | | | | | | HEART | | | | | | MEDICAL | | | | | | CENTER | | | | | | LABORATORY | | | | | | CERNER | | + + + + + + | Anion Gap | 9 | 5 - 16 mmol/L | [facility] | | | | | | [facility] | | | | | | HEART | | | | | | MEDICAL | | | | | | CENTER | | | | | | LABORATORY | | | | | | CERNER | | + + + + + + | Albumin | 4.0 | 3.3 - 4.8 g/dL | [facility] | | | | | | [facility] | | | | | | HEART | | | | | | MEDICAL | | | | | | CENTER | | | | | | LABORATORY | | | | | | CERNER | | + + + + + + | BUN | 11 | 8 - 25 mg/dL | [facility] | | | | | | [facility] | | | | | | HEART | | | | | | MEDICAL | | | | | | CENTER | | | | | | LABORATORY | | | | | | CERNER | | + + + + + + | Creatinine | 0.47 (L) | 0.50 - 1.00 | [facility] | | | | | mg/dL | [facility] | | | | | | HEART | | | | | | MEDICAL | | | | | | CENTER | | | | | | LABORATORY | | | | | | CERNER | | + + + + + + | Glucose | 89 | 65 - 99 mg/dL | [facility] | | | | | | [facility] | | | | | | HEART | | | | | | MEDICAL | | | | | | CENTER | | | | | | LABORATORY | | | | | | CERNER | | + + + + + + | Total | 6.2 | 6.1 - 7.8 g/dL | [facility] | | | Protein | | | [facility] | | | | | | HEART | | | | | | MEDICAL | | | | | | CENTER | | | | | | LABORATORY | | | | | | CERNER | | + + + + + + | Alkaline | 49 | 35 - 115 U/L | [facility] | | | Phosphatase | | | [facility] | | | | | | HEART | | | | | | MEDICAL | | | | | | CENTER | | | | | | LABORATORY | | | | | | CERNER | | + + + + + + | ALT | 41 | 10 - 65 U/L | [facility] | | | | | | [facility] | | | | | | HEART | | | | | | MEDICAL | | | | | | CENTER | | | | | | LABORATORY | | | | | | CERNER | | + + + + + + | AST | 29 | 10 - 45 U/L | [facility] | | | | | | [facility] | | | | | | HEART | | | | | | MEDICAL | | | | | | CENTER | | | | | | LABORATORY | | | | | | CERNER | | + + + + + + | Bilirubin | 1.2 (H) | 0.2 - 1.1 mg/dL | [facility] | | | Total | | | [facility] | | | | | | HEART | | | | | | MEDICAL | | | | | | CENTER | | | | | | LABORATORY | | | | | | CERNER | | + + + + + + | Estimated | 105Comment: eGFR<60 | >=90 | [facility] | | | GFR | consistent with impaired | mL/min/1.73m2 | [facility] | | | | kidney | | HEART | | | | function.Performed by | | MEDICAL | | | | [facility] [address], | | CENTER | | | | [place] [address] | | LABORATORY | | | | | | CERLENI | | + + + + + + + + | Specimen | + + | Blood specimen | | (specimen) | + + + + + + + | Performing | Address | City/State/Zipcode | Phone Number | | Organization | | | | + + + + + | GILBERTO NICHOLAS | [address] | [place] [address] | | | HEART [facility] | | | | | LABORATORY CERNER | | | | + + + + + CBC no Differential (08/22/2017 3:19 AM PDT) + + + +-------- -----+ + | Component | Value | Ref Range | Perform ed | Pathologist | | | | | At | Signature | + + + +-------- -----+ + | WBC | 8.7 | 3.8 - 11.0 K/uL | [facility] | | | | | | [facility] | | | | | | HEART | | | | | | MEDICAL | | | | | | CENTER | | | | | | LABORAT ORY | | | | | | CERNER | | + + + +-------- -----+ + | RBC | 3.34 (L) | 3.70 - 5.10 | [facility] | | | | | M/uL | [facility] | | | | | | HEART | | | | | | MEDICAL | | | | | | CENTER | | | | | | LABORAT ORY | | | | | | CERNER | | + + + +-------- -----+ + | Hemoglobin | 10.5 (L) | 11.3 - 15.5 | [facility] | | | | | g/dL | [facility] | | | | | | HEART | | | | | | MEDICAL | | | | | | CENTER | | | | | | LABORAT ORY | | | | | | CERNER | | + + + +-------- -----+ + | Hct | 29.7 (L) | 34.0 - 46.0 % | [facility] | | | | | | [facility] | | | | | | HEART | | | | | | MEDICAL | | | | | | CENTER | | | | | | LABORAT ORY | | | | | | CERNER | | + + + +-------- -----+ + | MCV | 89.1 | 80.0 - 100.0 fL | [facility] | | | | | | [facility] | | | | | | HEART | | | | | | MEDICAL | | | | | | CENTER | | | | | | LABORAT ORY | | | | | | CERNER | | + + + +-------- -----+ + | MCH | 31.6 | 27.0 - 34.0 pg | [facility] | | | | | | [facility] | | | | | | HEART | | | | | | MEDICAL | | | | | | CENTER | | | | | | LABORAT ORY | | | | | | CERNER | | + + + +-------- -----+ + | MCHC | 35.4 | 32.0 - 35.5 | [facility] | | | | | g/dL | [facility] | | | | | | HEART | | | | | | MEDICAL | | | | | | CENTER | | | | | | LABORAT ORY | | | | | | CERNER | | + + + +-------- -----+ + | RDW-CV | 13.7 | 11.0 - 15.5 % | [facility] | | | | | | [facility] | | | | | | HEART | | | | | | MEDICAL | | | | | | CENTER | | | | | | LABORAT ORY | | | | | | CERNER | | + + + +-------- -----+ + | Platelet | 197 | 150 - 400 K/uL | [facility] | | | Count | | | [facility] | | | | | | HEART | | | | | | MEDICAL | | | | | | CENTER | | | | | | LABORAT ORY | | | | | | CERNER | | + + + +-------- -----+ + | MPV | 7.8Comment: Performed | 7.5 - 11.2 fL | [facility] | | | | by [facility] [address], | | SACRED | | | | [place] [address] | | HEART | | | |Performed by [facility] [address], [place] [address] | | MEDICAL | | | | | | CENTER | | | | | | LABORAT ORY | | | | | | CERNER | | + + + +-------- -----+ + + + | Specimen | + + | Blood specimen | | (specimen) | + + + + + + + | Performing | Address | City/State/Zipcode | Phone Number | | Organization | | | | + + + + + | GILBERTO NICHOLAS | [address] | [place] [address] | | | HEART [facility] | | | | | LABORATORY CERNER | | | | + + + + + Hemoglobin and Hematocrit (08/21/2017 12:12 PM PDT) + + + + + + | Component | Value | Ref Range | Performed | Pathologist | | | | | At | Signature | + + + + + + | Hemoglobin | 11.4 | 11.3 - 15.5 | [facility] | | | | | g/dL | [facility] | | | | | | HEART | | | | | | MEDICAL | | | | | | CENTER | | | | | | LABORATORY | | | | | | [place] | | + + + + + + | Hct | 32.7 (L)Comment: | 34.0 - 46.0 % | [facility] | | | | Performed by [facility] [address] | | SACRED | | | | [address] [place] | | HEART | | | | [address] | | MEDICAL | | | | | | CENTER | | | | | | LABORATORY | | | | | | CERNER | | + + + + + + + + | Specimen | + + | Blood specimen | | (specimen) | + + + + + + + | Performing | Address | City/State/Zipcode | Phone Number | | Organization | | | | + + + + + | ANAODILIASneha NICHOLAS | [address] | [place] [address] | | | [facility] | | | | | [place] | | | | + + + + + Hemoglobin and Hematocrit (08/21/2017 4:33 AM PDT) + + + + + + | Component | Value | Ref Range | Performed | Pathologist | | | | | At | Signature | + + + + + + | Hemoglobin | 10.2 (L) | 11.3 - 15.5 | [facility] | | | | | g/dL | [facility] | | | | | | HEART | | | | | | MEDICAL | | | | | | CENTER | | | | | | LABORATORY | | | | | | CERNER | | + + + + + + | Hct | 28.7 (L)Comment: | 34.0 - 46.0 % | [facility] | | | | Performed by [facility] [address] | | SACRED | | | | [address] [place] | | HEART | | | | [address] | | MEDICAL | | | | | | CENTER | | | | | | LABORATORY | | | | | | CERNER | | + + + + + + + + | Specimen | + + | Blood specimen | | (specimen) | + + + + + + + | Performing | Address | City/State/Zipcode | Phone Number | | Organization | | | | + + + + + | GILBERTO NICHOLAS | [address] | [place] [address] | | | [facility] | | | | | LABORATORY CLAUDIANER | | | | + + + + + Red Blood Cells (PRBC) - Crossmatch and Hold (08/21/2017 2:48 AM PDT) + + + + + + | Component | Value | Ref Range | Performed | Pathologist | | | | | At | Signature | + + + + + + | Product | [id number] | | [facility]FERENCE | | | Code | | | [facility] [facility] | | | | | | [facility] | | | | | | [facility] | | | | | | B[facility] | | | | | | CENTER | | + + + + + + | UNIT # | [id number] | | REFERENCE | | | | | | [facility] | | | | | | [facility] | | | | | | [facility] | | | | | | BLOOD | | | | | | CENTER | | + + + + + + | UNIT ABO | O | | REFERENCE | | | | | | [facility] | | | | | | [facility] | | | | | | [facility] | | | | | | BLOOD | | | | | | CENTER | | + + + + + + | UNIT RH | POS | | REFERENCE | | | | | | [facility] | | | | | | [facility] | | | | | | [facility] | | | | | | BLOOD | | | | | | CENTER | | + + + + + + | Unit Status | IS | | REFERENCE | | | | | | [facility] | | | | | | [facility] | | | | | | [facility] | | | | | | B[facility] | | | | | | CENTER | | + + + + + + | Blood | [id number] | | REFERENCE | | | Product | | | [facility] | | | Expiration | | | [facility] | | | Date and | | | [facility] | | | Time | | | BLOOD | | | | | | CENTER | | + + + + + + | Product | [id number] | | REFERENCE | | | Blood Type | | | [facility] | | | Barcode | | | [facility] | | | | | | [facility] | | | | | | BLOOD | | | | | | CENTER | | + + + + + + | Product | [id number] | | REFERENCE | | | Code | | | [facility] | | | | | | [facility] | | | | | | [facility] | | | | | | BLOOD | | | | | | CENTER | | + + + + + + | UNIT # | [id number] | | REFERENCE | | | | | | [facility] | | | | | | [facility] | | | | | | [facility] | | | | | | BLOOD | | | | | | CENTER | | + + + + + + | UNIT ABO | O | | REFERENCE | | | | | | [facility] | | | | | | [facility] | | | | | | [facility] | | | | | | BLOOD | | | | | | CENTER | | + + + + + + | UNIT RH | POS | | REFERENCE | | | | | | [facility] | | | | | | [facility] | | | | | | [facility] | | | | | | BLOOD | | | | | | CENTER | | + + + + + + | Unit Status | RE | | REFERENCE | | | | | | [facility] | | | | | | [facility] | | | | | | [facility] | | | | | | BLOOD | | | | | | CENTER | | + + + + + + | Blood | [id number] | | REFERENCE | | | Product | | | [facility] | | | Expiration | | | [facility] | | | Date and | | | [facility] | | | Time | | | BLOOD | | | | | | CENTER | | + + + + + + | Product | [id number] | | REFERENCE | | | Blood Type | | | [facility] | | | Barcode | | | [facility] | | | | | | [facility] | | | | | | BLOOD | | | | | | CENTER | | + + + + + + + + | Specimen | + + | | + + + + + | Narrative | Performed At | + + + | Specimen Expiration Date: [id number] | [facility] LAB | | | [facility] | | | [facility] | | | [facility] | + + + + + + + + | Performing | Address | City/State/Zipcode | Phone Number | | Organization | | | | + + + + + | [facility] | [address] | [place] [address] | [phone] | | [facility] | | | | | [facility] | | | | | CENTER | | | | + + + + + Hemoglobin and Hematocrit (08/20/2017 8:05 PM PDT) + + + + + + | Component | Value | Ref Range | Performed | Pathologist | | | | | At | Signature | + + + + + + | Hemoglobin | 10.2 (L) | 11.3 - 15.5 | [facility] | | | | | g/dL | [facility] | | | | | | HEART | | | | | | MEDICAL | | | | | | CENTER | | | | | | LABORATORY | | | | | | [facility] | | + + + + + + | Hct | 28.7 (L)Comment: | 34.0 - 46.0 % | [facility] | | | | Performed by [facility] [address] | | SACRED | | | | [address] [place] | | HEART | | | | [address] | | MEDICAL | | | | | | CENTER | | | | | | LABORATORY | | | | | | CERNER | | + + + + + + + + | Specimen | + + | Blood specimen | | (specimen) | + + + + + + + | Performing | Address | City/State/Zipcode | Phone Number | | Organization | | | | + + + + + | ANALENO NICHOLAS | [address] | [place] [address] | | | [facility] | | | | | LABORATORY [place] | | | | + + + + + Potassium (08/20/2017 4:00 PM PDT) + + + + + + | Component | Value | Ref Range | Performed | Pathologist | | | | | At | Signature | + + + + + + | K | 3.4 (L)Comment: | 3.5 - 5.0 | [facility] | | | | Performed by [facility] [address] | mmol/L | SACRED | | | | [address], [place], [place] | | HEART | | | | [address] | | MEDICAL | | | | | | CENTER | | | | | | LABORATORY | | | | | | [place]ERN[place] | | + + + + + + + + | Specimen | + + | Blood specimen | | (specimen) | + + + + + + + | Performing | Address | City/State/Zipcode | Phone Number | | Organization | | | | + + + + + | [facility] | [address] | [place] [address] | | | [facility] | | | | | LABORATORY [place]ERN[facility] | | | | + + + + + Potassium (08/20/2017 12:30 PM PDT) + + + + + + | Component | Value | Ref Range | Performed | Pathologist | | | | | At | Signature | + + + + + + | K | 2.9 (L)Comment: | 3.5 - 5.0 | [facility] | | | | Performed by [facility] [address] | mmol/L | SACRED | | | | [address] [place] | | HEART | | | | [address] | | MEDICAL | | | | | | CENTER | | | | | | LABORATORY | | | | | | CERNER | | + + + + + + + + | Specimen | + + | Blood specimen | | (specimen) | + + + + + + + | Performing | Address | City/State/Zipcode | Phone Number | | Organization | | | | + + + + + | ANAODILIASneha SAENZJAD | [address] [place] [address]. | [place] [address] | | | [facility] | | | | | LABORATORY CERN[facility] | | | | + + + + + Hemoglobin and Hematocrit (08/20/2017 12:30 PM PDT) + + + + + + | Component | Value | Ref Range | Performed | Pathologist | | | | | At | Signature | + + + + + + | Hemoglobin | 10.8 (L) | 11.3 - 15.5 | [facility] | | | | | g/dL | SACRED | | | | | | HEART | | | | | | MEDICAL | | | | | | CENTER | | | | | | LABORATORY | | | | | | C[place]ER | | + + + + + + | Hct | 31.2 (L)Comment: | 34.0 - 46.0 % | [facility] | | | | Performed by [place] [address] [address] | | SACRED | | | | [address] [place] | | HEART | | | | [address] | | MEDICAL | | | | | | CENTER | | | | | | LABORATORY | | | | | | CERNER | | + + + + + + + + | Specimen | + + | Blood specimen | | (specimen) | + + + + + + + | Performing | Address | City/State/Zipcode | Phone Number | | Organization | | | | + + + + + | [facility] | [address] | [place] [address] | | | [facility] | | | | | LABORATORY CERNER | | | | + + + + + Protime INR (08/20/2017 4:14 AM PDT) + + + + + + | Component | Value | Ref Range | Performed | Pathologist | | | | | At | Signature | + + + + + + | Prothrombin | 13.9 | 12.0 - 14.2 sec | [facility] | | | Time | | | SACRED | | | | | | HEART | | | | | | MEDICAL | | | | | | CENTER | | | | | | LABORATORY | | | | | | CERNER | | + + + + + + | INR | 1.1Comment: Usual oral | 0.9 - 1.1 | [facility] | | | | anticoagulant range: 2.0 | | SACRED | | | | to 3.0 High level | | HEART | | | | oral anticoagulant | | MEDICAL | | | | range: 2.5 to | | CENTER | | | | 3.5Performed by [facility] [address] | | LABORATORY | | | | [address] | | [place] | | | | [id number] | | | | + + + + + + + + | Specimen | + + | Blood specimen | | (specimen) | + + + + + + + | Performing | Address | City/State/Zipcode | Phone Number | | Organization | | | | + + + + + | [facility] | [address] | [place] [address] | | | [facility] | | | | | LABORATORY CERN[facility] | | | | + + + + + Lactic Acid (08/20/2017 4:14 AM PDT) + + + + + + | Component | Value | Ref Range | Performed | Pathologist | | | | | At | Signature | + + + + + + | Lactate, | 0.5Comment: Performed | 0.5 - 2.2 | [facility] | | | Venous | by [facility] [address], | mmol/L | SACRED | | | | [place] [address] | | HEART | | | |Performed by [facility] [address], [place] [address] | | MEDICAL | | | | | | CENTER | | | | | | LABORATORY | | | | | | CERNER | | + + + + + + + + | Specimen | + + | Blood specimen | | (specimen) | + + + + + + + | Performing | Address | City/State/Zipcode | Phone Number | | Organization | | | | + + + + + | GILBERTO NICHOLAS | [address] | [place] [address] | | | [facility] | | | | | LABORATORY [facility] | | | | + + + + + Comprehensive Metabolic Panel (08/20/2017 4:14 AM PDT) + + + + + + | Component | Value | Ref Range | Performed | Pathologist | | | | | At | Signature | + + + + + + | Na | 142 | 135 - 145 | [facility] | | | | | mmol/L | SACRED | | | | | | HEART | | | | | | MEDICAL | | | | | | CENTER | | | | | | LABORATORY | | | | | | CERNER | | + + + + + + | K | 3.5 | 3.5 - 5.0 | [facility] | | | | | mmol/L | SACRED | | | | | | HEART | | | | | | MEDICAL | | | | | | CENTER | | | | | | LABORATORY | | | | | | [place] | | + + + + + + | Cl | 105 | 99 - 109 mmol/L | [facility] | | | | [facility] | [facility] | [facility] | | | | | | [facility] | | | | | | CENTER | | | | | | LABORATORY | | | | | | [facility] | | + + + + + + | CO2 | 31 (H) | 21 - 28 mmol/L | [facility] | | [facility] | | | | | | [facility] | | | | | | CENTER | | | | | | LABORATORY | | | | | | [facility] | | + + + + + + | Calcium | 8.9 | 8.5 - 10.2 | [facility] | | | | | mg/dL | [facility] | | | | | | [facility] | | | | | | MEDICAL | | | | | | CENTER | | | | | | LABORATORY | | | | | | [facility] | | + + + + + + | Anion Gap | 6 | 5 - 16 mmol/L | [facility] | [facility] | [facility] | | | | | | [facility] | | | | | | CENTER | | | | | | LABORATORY | | | | | | [facility] | | + + + + + + | Albumin | 3.7 | 3.3 - 4.8 g/dL | [facility] | [facility] | | | | | | [facility] | | | | | | CENTER | | | | | | LABORATORY | | | | | | [facility] | | + + + + + + | BUN | <5 (L) | 8 - 25 mg/dL | [facility] | | | | | | [facility] | | | | | | CENTER | | | | | | LABORATORY | | | | | | [facility] | | + + + + + + | Creatinine | 0.43 (L) | 0.50 - 1.00 | [facility] | | | | | mg/dL | [facility] | | | | | | [facility] | | | | | | MEDICAL | | | | | | CENTER | | | | | | LABORATORY | | | | | | [facility] | | + + + + + + | Glucose | 88 | 65 - 99 mg/dL | [facility] | | [facility] | | | | | | [facility] | | | | | | CENTER | | | | | | LABORATORY | | | | | | [facility] | | + + + + + + | Total | 5.7 (L) | 6.1 - 7.8 g/dL | [facility] | | | Protein | | | [facility] | | | | | | [facility] | | | | | | MEDICAL | | | | | | CENTER | | | | | | LABORATORY | | | | | | [facility] | | + + + + + + | Alkaline | 46 | 35 - 115 U/L | [facility] | | | Phosphatase | | | [facility] | | | | | | [facility] | | | | | | MEDICAL | | | | | | CENTER | | | | | | LABORATORY | | | | | | [facility] | | + + + + + + | ALT | 74 (H) | 10 - 65 U/L | [facility] | | | | [facility] | | [facility] | [facility] | | | | | | MEDICAL | | | | | | CENTER | | | | | | LABORATORY | | | | | | [facility] | | + + + + + + | AST | 33 | 10 - 45 U/L | [facility] | | | | | [facility] | | | | | | [facility] | | | | | | MEDICAL | | | | | | CENTER | | | | | | LABORATORY | | | | | | [facility] | | + + + + + + | Bilirubin | 0.6 | 0.2 - 1.1 mg/dL | [facility] | | | Total | | | [facility] | | | | | | [facility] | | | | | | MEDICAL | | | | | | CENTER | | | | | | LABORATORY | | | | | | [facility] | | + + + + + + | Estimated | 108Comment: eGFR<60 | >=90 | [facility] | | | GFR | consistent with impaired | mL/min/1.73m2 | [facility] | | | | kidney | | HEART | | | | function.Performed by | | MEDICAL | | | | [facility] [address], | | CENTER | | | | [place] [address] | | LABORATORY | | | | | | [facility] | | + + + + + + + + | Specimen | + + | Blood specimen | | (specimen) | + + + + + + + | Performing | Address | City/State/Zipcode | Phone Number | | Organization | | | | + + + + + | [facility] | [address] | [place] [address] | | | [facility] | | | | | LABORAT[facility] [place] | | | | + + + + + CBC with Differential (08/20/2017 4:14 AM PDT) + + + +------- ------+ + | Component | Value | Ref Range | Perfor med | Pathologist | | | | | At | Signature | + + + +------- ------+ + | WBC | 10.2 | 3.8 - 11.0 K/uL | [facility] | | | | | | [facility] | | | | | | [facility] | | | | | | [facility] | | | | | | CENTER | | | | | | [facility] [place] | | | | | | [place] | | + + + +------- ------+ + | RBC | 3.05 (L) | 3.70 - 5.10 | [facility] | | | | | M/uL | [facility] | | | | | | HEART | | | | | | MEDICA L | | | | | | CENTER | | | | | | LABORA TORY | | | | | | [facility] | | + + + +------- ------+ + | Hemoglobin | 9.5 (L) | 11.3 - 15.5 | [facility] | | | | | g/dL | [facility] | | | | | | HEART | | | | | | [facility] | | | | | | CENTER | | | | | | LABORA TORY | | | | | | [facility] | | + + + +------- ------+ + | Hct | 27.1 (L) | 34.0 - 46.0 % | [facility] | | | | | | [facility] | | | | | | [facility] | | | | | | MEDICA [facility] | | | | | | CENTER | | | | | | LABORA TORY | | | | | | [facility] | | + + + +------- ------+ + | MCV | 88.8 | 80.0 - 100.0 fL | [facility] | | | | [facility] | | | | [facility] | | | | | | [facility] | | | | | | CENTER | | | | | | LABORA TORY | | | | | | [facility] | | + + + +------- ------+ + | MCH | 31.2 | 27.0 - 34.0 pg | [facility] | | | | | | [facility] | | | | | | [facility] | | | | | | [facility] | | | | | | CENTER | | | | | | LABORA TORY | | | | | | [facility] | | + + + +------- ------+ + | MCHC | 35.2 | 32.0 - 35.5 | [facility] | | | | | g/dL | [facility] | | | | | | HEART | | | | | | [facility] | | | | | | CENTER | | | | | | LABORA TORY | | | | | | [facility] | | + + + +------- ------+ + | RDW-CV | 14.3 | 11.0 - 15.5 % | [facility] | | | | | | [facility] | | | | | | [facility] | | | | | | [facility] | | | | | | CENTER | | | | | | LABORA TORY | | | | | | [facility] | | + + + +------- ------+ + | Platelet | 121 (L) | 150 - 400 K/uL | [facility] | | | Count | | | [facility] | | | | | | HEART | | | | | | [facility] | | | | | | CENTER | | | | | | LABORA TORY | | | | | | [facility] | | + + + +------- ------+ + | MPV | 8.1 | 7.5 - 11.2 fL | [facility] | | | | | | [facility] | | | | | | [facility] | | | | | | [facility] | | | | | | CENTER | | | | | | LABORA TORY | | | | | | [facility] | | + + + +------- ------+ + | % | 79.5 (H) | 40.0 - 75.0 % | [facility] | | | Neutrophils | | | [facility] | | | | | | HEART | | | | | | [facility] | | | | | | CENTER | | | | | | LABORA TORY | | | | | | [facility] | | + + + +------- ------+ + | % | 11.4 (L) | 15.0 - 48.0 % | [facility] | | | Lymphocytes | | | [facility] | | | | | | HEART | | | | | | [facility] | | | | | | CENTER | | | | | | LABORA TORY | | | | | | [facility] | | + + + +------- ------+ + | % Monocytes | 8.4 | 0.0 - 12.0 % | [facility] | | | | | | [facility] | | | | | | [facility] | | | | | | [facility] | | | | | | CENTER | | | | | | LABORA TORY | | | | | | [facility] | | + + + +------- ------+ + | % | 0.3 | 0.0 - 7.0 % | [facility] | | | Eosinophils | | | [facility] | | | | | | HEART | | | | | | [facility] | | | | | | CENTER | | | | | | LABORA TORY | | | | | | [facility] | | + + + +------- ------+ + | % Basophils | 0.4 | 0.0 - 2.0 % | [facility] | | | | | | [facility] | | | | | | [facility] | | | | | | [facility] | | | | | | CENTER | | | | | | LABORA TORY | | | | | | [facility] | | + + + +------- ------+ + | Absolute | 8.10 (H) | 1.90 - 7.40 | [facility] | | | Neutrophils | | K/uL | [facility] | | | | | | HEART | | | | | | [facility] | | | | | | CENTER | | | | | | LABORA TORY | | | | | | [facility] | | + + + +------- ------+ + | Absolute | 1.16 | 1.00 - 3.90 | [facility] | | | Lymphocytes | | K/uL | [facility] | | | | | | HEART | | | | | | [facility] | | | | | | CENTER | | | | | | LABORA TORY | | | | | | [facility] | | + + + +------- ------+ + | Absolute | 0.86 (H) | 0.00 - 0.80 | [facility] | | | Monocytes | | K/uL | [facility] | | | | | | HEART | | | | | | [facility] | | | | | | CENTER | | | | | | LABORA TORY | | | | | | [facility] | | + + + +------- ------+ + | Absolute | 0.03 | 0.00 - 0.50 | [facility] | | | Eosinophils | | K/uL | [facility] | | | | | | HEART | | | | | | [facility] | | | | | | CENTER | | | | | | LABORA TORY | | | | | | [facility] | | + + + +------- ------+ + | Absolute | 0.04 | 0.00 - 0.10 | [facility] | | | Basophils | | K/uL | [facility] | | | | | | HEART | | | | | | [facility] | | | | | | CENTER | | | | | | LABORA TORY | | | | | | [facility] | | + + + +------- ------+ + | Platelet | Decreased | | [facility] | | | Estimate | | | [facility] | | | | | | HEART | | | | | | [facility] | | | | | | CENTER | | | | | | LABORA TORY | | | | | | C[facility] | | + + + +------- ------+ + | Ovalocytes | 1+Comment: Performed by | | [facility] | | | | [facility] [address], | | SACRED | | | | [place] [address] | | HEART | | | |Performed by [facility] [address], [place] [address] | | MEDICA L | | | | | | CENTER | | | | | | LABORA TORY | | | | | | C[facility]ER | | + + + +------- ------+ + + + | Specimen | + + | Blood specimen | | (specimen) | + + + + + + + | Performing | Address | City/State/Zipcode | Phone Number | | Organization | | | | + + + + + | [facility] | [address] | [place] [address] | | | [facility] | | | | | [facility] | | | | + + + + + XR Chest AP Portable (08/19/2017 6:53 PM PDT) + + | Specimen | + + | | + + + + + | Narrative | Performed At | + + + | CHEST PORTABLE ONE VIEW CLINICAL INFORMATION: Acute | [facility] | | respiratory distress. COMPARISON: XR CHEST AP PORTABLE dated | | | 08/18/2017; IR PROCEDURE dated 08/18/2017 FINDINGS: Patchy right | | | lower lobe airspace consolidation compatible with pneumonia. The | | | there may be a small pleural effusion. Left lung is clear. | | | Cardiomediastinal silhouette unremarkable. No acute osseous | | | abnormality. A left PICC line is appropriately positioned with the | | | tip in the distal SVC. IMPRESSION: Right lower lobe pneumonia. | | | In the absence of suspected complicated infection requiring repeat | | | or advanced imaging, radiographic followup in 8-10 weeks recommended | | | to document complete resolution. Signed by: Demarcus Stuart | | | | | + + + + + | Procedure Note | + + | Avelino, Rad Results In - 08/19/2017 7:05 PM PDT | | CHEST PORTABLE ONE VIEW | | | | CLINICAL INFORMATION: | | Acute respiratory distress. | | | | COMPARISON: | | XR CHEST AP PORTABLE dated 08/18/2017; IR PROCEDURE dated 08/18/2017 | | | | FINDINGS: | | Patchy right lower lobe airspace consolidation compatible with | | pneumonia. The there may be a small pleural effusion. Left lung is | | clear. Cardiomediastinal silhouette unremarkable. No acute osseous | | abnormality. | | | | A left PICC line is appropriately positioned with the tip in the | | distal SVC. | | | | IMPRESSION: | | Right lower lobe pneumonia. In the absence of suspected complicated | | infection requiring repeat or advanced imaging, radiographic followup | | in 8-10 weeks recommended to document complete resolution. | | | | | | | | Signed by: Demarcus Stuart | + + + +---------+ + + | Performing | Address | City/State/Zipcode | Phone Number | | Organization | | | | + +---------+ + + | [facility] | | | | + +---------+ + + Potassium Whole Blood (08/19/2017 5:20 PM PDT) + + + + + + | Component | Value | Ref Range | Performed | Pathologist | | | | | At | Signature | + + + + + + | K | 3.8Comment: Performed | 3.5 - 5.0 | [facility] | | | | by [facility] [address], | mmol/L | SACRED | | | | [place] [address] | | HEART | | | |Performed by [facility] [address], [place] [address] | | MEDICAL | | | | | | CENTER | | | | | | LABORATORY | | | | | | CERNER | | + + + + + + + + | Specimen | + + | Blood specimen | | (specimen) | + + + + + + + | Performing | Address | City/State/Zipcode | Phone Number | | Organization | | | | + + + + + | [facility]OL[facility] | [address] | [place] [address] | | | [facility] | | | | | LAB[facility]AT[facility] | | | | + + + + + Glucose, Respiratory (08/19/2017 5:20 PM PDT) + + + + --+ + | Component | Value | Ref Range | Performed | Pathologist | | | | | At | Signature | + + + + --+ + | Glucose | 95Comment: Performed by | 65 - 99 mg/dL | [facility] | | | | [facility] [address], | | SACRED | | | | [place] [address] | | HEART | | | |Performed by [facility] [address], [place] [address] | | MEDICAL | | | | | | CENTER | | | | | | LABORATORY | | | | | | CERNER | | + + + + --+ + + + | Specimen | + + | Blood specimen | | (specimen) | + + + + + + + | Performing | Address | City/State/Zipcode | Phone Number | | Organization | | | | + + + + + | [facility]OL[facility] | [address] | [place] [address] | | | [facility] | | | | | [facility] | | | | + + + + + Blood Gas, Arterial (08/19/2017 5:20 PM PDT) + + + +--------- ----+ + | Component | Value | Ref Range | Performe d | Pathologist | | | | | At | Signature | + + + +--------- ----+ + | pH, | 7.36 (L) | 7.37 - 7.47 | [facility] | | | Arterial | | | SACRED | | | | | | HEART | | | | | | MEDICAL | | | | | | CENTER | | | | | | LABORATO RY | | | | | | [facility] | | + + + +--------- ----+ + | pCO2, | 44 (H) | 32 - 43 mmHg | [facility] | | | Arterial | | | SACRED | | | | | | HEART | | | | | | MEDICAL | | | | | | CENTER | | | | | | LABORATO RY | | | | | | [facility] | | + + + +--------- ----+ + | pO2, | 91 (H) | 65 - 80 mmHg | [facility] | | | Arterial | | | SACRED | | | | | | HEART | | | | | | MEDICAL | | | | | | CENTER | | | | | | LABORATO RY | | | | | | [facility] | | + + + +--------- ----+ + | Base | -0.2 | -2.5 - 2.5 | [facility] | | | Excess, | | mmol/L | SACRED | | | Arterial | | | HEART | | | | | | MEDICAL | | | | | | CENTER | | | | | | LABORATO RY | | | | | | CERNER | | + + + +--------- ----+ + | HCO3, | 25.2 | 23.0 - 28.0 | [facility] | | | Arterial | | mmol/L | SACRED | | | | | | HEART | | | | | | MEDICAL | | | | | | CENTER | | | | | | LABORATO RY | | | | | | CERNER | | + + + +--------- ----+ + | FiO2 | 2L NC | | [facility] | | | | | | SACRED | | | | | | HEART | | | | | | MEDICAL | | | | | | CENTER | | | | | | LABORATO RY | | | | | | CERNER | | + + + +--------- ----+ + | ROUTE | 2L NC | | [facility] | | | | | | SACRED | | | | | | HEART | | | | | | MEDICAL | | | | | | CENTER | | | | | | LABORATO RY | | | | | | [facility] | | + + + +--------- ----+ + | Rate | 14 | | [facility] | | | | | | SACRED | | | | | | HEART | | | | | | MEDICAL | | | | | | CENTER | | | | | | LABORATO RY | | | | | | [facility] | | + + + +--------- ----+ + | Methemoglob | 0.9 | 0.4 - 1.5 % | [facility] | | | in, Venous | | | SACRED | | | | | | HEART | | | | | | MEDICAL | | | | | | CENTER | | | | | | LABORATO RY | | | | | | CERN[facility] | | + + + +--------- ----+ + | Comment | Sat=96% | | [facility] | | | | | | SACRED | | | | | | HEART | | | | | | MEDICAL | | | | | | CENTER | | | | | | LABORATO RY | | | | | | C[facility] | | + + + +--------- ----+ + | Oxygen | 13.3 (L) | 15.0 - 23.0 % | [facility] | | | Content, | | | SACRED | | | Arterial | | | HEART | | | | | | MEDICAL | | | | | | CENTER | | | | | | LABORATO RY | | | | | | [facility] | | + + + +--------- ----+ + | Carboxyhemo | 1.0 | 1.0 - 3.0 % | [facility] | | | globin | | | SACRED | | | | | | HEART | | | | | | MEDICAL | | | | | | CENTER | | | | | | LABORATO RY | | | | | | [facility] | | + + + +--------- ----+ + | Hemoglobin | 9.8 (L) | 11.3 - 15.5 | [facility] | | | | | g/dL | SACRED | | | | | | HEART | | | | | | MEDICAL | | | | | | CENTER | | | | | | LABORATO RY | | | | | | CERNER | | + + + +--------- ----+ + | O2SAT COOX | 96.1Comment: Performed | 92.0 - 99.0 % | [facility] | | | ARTERIAL | by [facility] [address], | | SACRED | | | | [place] [address] | | HEART | | | |Performed by [facility] [address], [place] [address] | | MEDICAL | | | | | | CENTER | | | | | | LABORATO RY | | | | | | CERNER | | + + + +--------- ----+ + + + | Specimen | + + | Blood specimen | | (specimen) | + + + + + + + | Performing | Address | City/State/Zipcode | Phone Number | | Organization | | | | + + + + + | [facility] | [address] | [place] [address] | | | [facility] | | | | | [facility] | | | | + + + + + Hemoglobin and Hematocrit (08/19/2017 4:40 PM PDT) + + + + + + | Component | Value | Ref Range | Performed | Pathologist | | | | | At | Signature | + + + + + + | Hemoglobin | 9.6 (L) | 11.3 - 15.5 | [facility] | | | | | g/dL | [facility] | | | | | | HEART | | | | | | MEDICAL | | | | | | CENTER | | | | | | LABORATORY | | | | | | [facility] | | + + + + + + | Hct | 27.6 (L)Comment: | 34.0 - 46.0 % | [facility] | | | | Performed by [facility] [address] | | SACRED | | | | [address] [place] | | HEART | | | | [id number] | | MEDICAL | | | | | | CENTER | | | | | | LABORATORY | | | | | | [facility] | | + + + + + + + + | Specimen | + + | Blood specimen | | (specimen) | + + + + + + + | Performing | Address | City/State/Zipcode | Phone Number | | Organization | | | | + + + + + | [facility] | [address] | [place] [address] | | | [facility] | | | | | LAB[facility]AT[facility] | | | | + + + + + Blood Gas, Arterial (08/19/2017 10:18 AM PDT) + + + +--------- ----+ + | Component | Value | Ref Range | Performe d | Pathologist | | | | | At | Signature | + + + +--------- ----+ + | pH, | 7.40 | 7.37 - 7.47 | [facility] | | | Arterial | | | SACRED | | | | | | HEART | | | | | | MEDICAL | | | | | | CENTER | | | | | | LABORATO RY | | | | | | [facility] | | + + + +--------- ----+ + | pCO2, | 39 | 32 - 43 mmHg | [facility] | | | Arterial | | | SACRED | | | | | | HEART | | | | | | MEDICAL | | | | | | CENTER | | | | | | LABORATO RY | | | | | | [facility] | | + + + +--------- ----+ + | pO2, | 100 (H) | 65 - 80 mmHg | [facility] | | | Arterial | | | SACRED | | | | | | HEART | | | | | | MEDICAL | | | | | | CENTER | | | | | | LABORATO RY | | | | | | [facility] | | + + + +--------- ----+ + | Base | -1.0 | -2.5 - 2.5 | [facility] | | | Excess, | | mmol/L | SACRED | | | Arterial | | | HEART | | | | | | MEDICAL | | | | | | CENTER | | | | | | LABORATO RY | | | | | | [facility] | | + + + +--------- ----+ + | HCO3, | 23.9 | 23.0 - 28.0 | [facility] | | | Arterial | | mmol/L | SACRED | | | | | | HEART | | | | | | MEDICAL | | | | | | CENTER | | | | | | LABORATO RY | | | | | | [facility] | | + + + +--------- ----+ + | FiO2 | 3L NC | | [facility] | | | | | | SACRED | | | | | | HEART | | | | | | MEDICAL | | | | | | CENTER | | | | | | LABORATO RY | | | | | | [facility] | | + + + +--------- ----+ + | ROUTE | NC | | [facility] | | | | | | SACRED | | | | | | HEART | | | | | | MEDICAL | | | | | | CENTER | | | | | | LABORATO RY | | | | | | [facility] | | + + + +--------- ----+ + | Rate | 18 | | [facility] | | | | | | SACRED | | | | | | HEART | | | | | | MEDICAL | | | | | | CENTER | | | | | | LABORATO RY | | | | | | [facility] | | + + + +--------- ----+ + | Methemoglob | 1.0 | 0.4 - 1.5 % | [facility] | | | in, Venous | | | SACRED | | | | | | HEART | | | | | | MEDICAL | | | | | | CENTER | | | | | | LABORATO RY | | | | | | [facility] | | + + + +--------- ----+ + | Oxygen | 12.8 (L) | 15.0 - 23.0 % | [facility] | | | Content, | | | SACRED | | | Arterial | | | HEART | | | | | | MEDICAL | | | | | | CENTER | | | | | | LABORATO RY | | | | | | [facility] | | + + + +--------- ----+ + | Hct | 28.5 (L) | 34.0 - 46.0 % | [facility] | | | | | | SACRED | | | | | | HEART | | | | | | MEDICAL | | | | | | CENTER | | | | | | LABORATO RY | | | | | | [facility] | | + + + +--------- ----+ + | Carboxyhemo | 0.7 (L) | 1.0 - 3.0 % | [facility] | | | globin | | | SACRED | | | | | | HEART | | | | | | MEDICAL | | | | | | CENTER | | | | | | LABORATO RY | | | | | | [facility] | | + + + +--------- ----+ + | Hemoglobin | 9.3 (L) | 11.3 - 15.5 | [facility] | | | | | g/dL | SACRED | | | | | | HEART | | | | | | MEDICAL | | | | | | CENTER | | | | | | LABORATO RY | | | | | | [facility] | | + + + +--------- ----+ + | O2SAT COOX | 96.9Comment: Performed | 92.0 - 99.0 % | [facility] | | | ARTERIAL | by [facility] [address], | | SACRED | | | | [place] [address] | | HEART | | | |Performed by [facility] [address], [place] [address] | | MEDICAL | | | | | | CENTER | | | | | | LABORATO RY | | | | | | [facility]ERNER | | + + + +--------- ----+ + + + | Specimen | + + | Blood specimen | | (specimen) | + + + + + + + | Performing | Address | City/State/Zipcode | Phone Number | | Organization | | | | + + + + + | [facility] | [address] | [place] [address] | | | [facility] | | | | | [facility] | | | | + + + + + Tricia De La Torre (08/19/2017 10:18 AM PDT) + + + + + + | Component | Value | Ref Range | Performed | Pathologist | | | | | At | Signature | + + + + + + | DS DNA AB | <1Comment: | 0 - 9 IU/mL | [facility] | | | | | | [facility]CRED | | | | Negative | | HEART | | | | <5 | | MEDICAL | | | | | | CENTER | | | | Equivocal | | LABORATORY | | | | 5 - 9 | | [facility] | | | | | | | | | | Positive | | | | | | >9 | | | | + + + + + + | MANJU VEHICLE SERVICE AGENT AB | <0.2 | 0.0 - 0.9 AI | [facility] | | | | | | [facility]CR[facility] | | | | | | HEART | | | | | | MEDICAL | | | | | | CENTER | | | | | | LABORATORY | | | | | | [facility] | | + + + + + + | SM | 0.2 | 0.0 - 0.9 AI | [facility] | | | Autoantibod | | | SACRED | | | y | | | HEART | | | | | | MEDICAL | | | | | | CENTER | | | | | | LABORATORY | | | | | | [facility] | | + + + + + + | SMRNP | <0.2 | 0.0 - 0.9 AI | [facility] | | | Autoantibod | | | SACRED | | | y | | | HEART | | | | | | MEDICAL | | | | | | CENTER | | | | | | LABORATORY | | | | | | [facility] | | + + + + + + | MANJU SCL 70 | <0.2 | 0.0 - 0.9 AI | [facility] | | | AB | | | SACRED | | | | | | HEART | | | | | | MEDICAL | | | | | | CENTER | | | | | | LABORATORY | | | | | | [facility] | | + + + + + + | MANJU SSA | <0.2 | 0.0 - 0.9 AI | [facility] | | | (RO) AB | | | SACRED | | | | | | HEART | | | | | | MEDICAL | | | | | | CENTER | | | | | | LABORATORY | | | | | | [facility] | | + + + + + + | MANJU SSB | <0.2 | 0.0 - 0.9 AI | [facility] | | | (LA) AB | | | SACRED | | | | | | HEART | | | | | | MEDICAL | | | | | | CENTER | | | | | | LABORATORY | | | | | | [facility] | | + + + + + + | Chromatin | <0.2 | 0.0 - 0.9 AI | [facility] | | | Autoantibod | | | SACRED | | | y | | | HEART | | | | | | MEDICAL | | | | | | CENTER | | | | | | LABORATORY | | | | | | [facility] | | + + + + + + | Ribosomal P | <0.2 | 0.0 - 0.9 AI | [facility] | | | | | | SACRED | | | Autoantibod | | | HEART | | | y | | | MEDICAL | | | | | | CENTER | | | | | | LABORATORY | | | | | | [facility] | | + + + + + + | MANJU CAREN 1 AB | <0.2 | 0.0 - 0.9 AI | [facility] | | | | | | [facility]CR[facility] | | | | | | HEART | | | | | | MEDICAL | | | | | | CENTER | | | | | | LABORATORY | | | | | | [facility] | | + + + + + + | Centromere | <0.2 | 0.0 - 0.9 AI | [facility] | | | B | | | SACRED | | | Autoantibod | | | HEART | | | y | | | MEDICAL | | | | | | CENTER | | | | | | LABORATORY | | | | | | [facility] | | + + + + + + | See below: | CommentComment: | | [facility] | | | | Autoantibody | | SACRED | | | | | | HEART | | | | Disease | | MEDICAL | | | | Association | | CENTER | | | | | | LABORATORY | | | | | | [facility] | | | | | | | | | | Condition | | | | | | | | | | | | Frequency | | | | | | | | | | | | | | | | | | Antinuclear | | | | | | Antibody, SLE, | | | | | | mixed connectiveDirect | | | | | | (PADMA-D) | | | | | | tissue | | | | | | diseases | | | | | | | | | | | | | | | | | | dsDNA | | | | | | | | | | | | SLE | | | | | | 40 - | | | | | | 60% | | | | | | | | | | | | | | | | | | Chromatin | | | | | | | | | | | | Drug induced SLE | | | | | | 90% | | | | | | | | | | | | SLE | | | | | | | | | | | | 48 - | | | | | | 97% | | | | | | | | | | | | | | | | | | SSA (Ro) | | | | | | | | | | | | SLE | | | | | | 25 - 35% | | | | | | | | | | | | Sjogren's | | | | | | Syndrome 40 | | | | | | - 70% | | | | | | | | | | | | Lupus | | | | | | | | | | | | 100% | | | | | | _ | | | | | | | | | | | | SSB (La) | | | | | | | | | | | | SLE | | | | | | | | | | | | 10% | | | | | | | | | | | | Sjogren's Syndrome | | | | | | | | | | | | 30% | | | | | | __ | | | | | | | | | | | | Sm | | | | | | (anti-Hernandez) | | | | | | SLE | | | | | | 15 - | | | | | | 30% | | | | | | | | | | | | | | | | | | RNP | | | | | | | | | | | | Mixed Connective | | | | | | Tissue | | | | | | | | | | | | Disease | | | | | | | | | | | | 95%(U1 nRNP, | | | | | | SLE | | | | | | | | | | | | 30 - | | | | | | 50%anti-ribonucleoprotei | | | | | | n) Polymyositis and/or | | | | | | | | | | | | | | | | | | Dermatomyositis | | | | | | | | | | | | 20% | | | | | | | | | | | | | | | | | | Scl-70 | | | | | | (antiDNA | | | | | | Scleroderma (diffuse) | | | | | | 20 - | | | | | | 35%topoisomerase) | | | | | | Crest | | | | | | | | | | | | | | | | | | 13% | | | | | | | | | | | | | | | | | | Jo-1 | | | | | | | | | | | | Polymyositis and/or | | | | | | | | | | | | Dermatomyositis | | | | | | 20 - | | | | | | 40% | | | | | | | | | | | | | | | | | | Centromere | | | | | | B | | | | | | Scleroderma - Crest | | | | | | | | | | | | variant | | | | | | | | | | | | | | | | | | 80% | | | | | | | | | | | | | | | | | | Ribosomal P | | | | | | SLE | | | | | | | | | | | | 10 - | | | | | | 20%Performed At: [facility] | | | | | | [address] | | | | | | [address] | | | | | | [place] | | | | | | [phone] J | | | | | | [phone] | | | | + + + + + + + + | Specimen | + + | Blood specimen | | (specimen) | + + + + + + + | Performing | Address | City/State/Zipcode | Phone Number | | Organization | | | | + + + + + | [facility] | [address] | [place] [address] | | | [facility] | | | | | [facility] | | | | + + + + + Lactic Acid, Arterial, Respiratory (08/19/2017 8:22 AM PDT) + + + + + + | Component | Value | Ref Range | Performed | Pathologist | | | | | At | Signature | + + + + + + | Lactate, | 1.5Comment: Performed | 0.5 - 1.6 | [facility] | | | Arterial | by [facility] [address], | mmol/L | SACRED | | | | [place] [address] | | HEART | | | |Performed by [facility] [address], [place] [address] | | MEDICAL | | | | | | CENTER | | | | | | LABORATORY | | | | | | [facility] | | + + + + + + + + | Specimen | + + | Blood specimen | | (specimen) | + + + + + + + | Performing | Address | City/State/Zipcode | Phone Number | | Organization | | | | + + + + + | [facility] | [address] | [place] [address] | | | [facility] | | | | | [facility] | | | | + + + + + Blood Gas, Arterial (08/19/2017 8:22 AM PDT) + + + +--------- ----+ + | Component | Value | Ref Range | Performe d | Pathologist | | | | | At | Signature | + + + +--------- ----+ + | pH, | 7.36 (L) | 7.37 - 7.47 | [facility] | | | Arterial | | | [facility] | | | | | | HEART | | | | | | MEDICAL | | | | | | CENTER | | | | | | [facility] | | | | | | [facility] | | + + + +--------- ----+ + | pCO2, | 43 | 32 - 43 mmHg | [facility] | | | Arterial | | | [facility] | | | | | | HEART | | | | | | MEDICAL | | | | | | CENTER | | | | | | [facility] | | | | | | [facility] | | + + + +--------- ----+ + | pO2, | 102 (H) | 65 - 80 mmHg | [facility] | | | Arterial | | | [facility] | | | | | | HEART | | | | | | MEDICAL | | | | | | CENTER | | | | | | [facility] | | | | | | [facility] | | + + + +--------- ----+ + | Base | -1.8 | -2.5 - 2.5 | [facility] | | | Excess, | | mmol/L | [facility] | | | Arterial | | | HEART | | | | | | MEDICAL | | | | | | CENTER | | | | | | [facility] | | | | | | [facility] | | + + + +--------- ----+ + | HCO3, | 23.7 | 23.0 - 28.0 | [facility] | | | Arterial | | mmol/L | [facility] | | | | | | HEART | | | | | | MEDICAL | | | | | | CENTER | | | | | | [facility] | | | | | | [facility] | | + + + +--------- ----+ + | FiO2 | 40 | | [facility] | | | | | | [facility] | | | | | | HEART | | | | | | MEDICAL | | | | | | CENTER | | | | | | [facility]AT[facility] | | | | | | [facility] | | + + + +--------- ----+ + | ROUTE | SBT/PS=8 | | [facility] | | | | | | [facility] | | | | | | HEART | | | | | | MEDICAL | | | | | | CENTER | | | | | | [facility] | | | | | | [facility] | | + + + +--------- ----+ + | Rate | 12 | | [facility] | | | | | | [facility] | | | | | | HEART | | | | | | MEDICAL | | | | | | CENTER | | | | | | [facility] | | | | | | [facility] | | + + + +--------- ----+ + | PEEP | 5 | | [facility] | | | | | | [facility] | | | | | | HEART | | | | | | MEDICAL | | | | | | CENTER | | | | | | [facility] | | | | | | [facility] | | + + + +--------- ----+ + | Methemoglob | 0.9 | 0.4 - 1.5 % | [facility] | | | in, Venous | | | [facility] | | | | | | HEART | | | | | | MEDICAL | | | | | | CENTER | | | | | | [facility] | | | | | | [facility] | | + + + +--------- ----+ + | Oxygen | 12.5 (L) | 15.0 - 23.0 % | [facility] | | | Content, | | | [facility] | | | Arterial | | | HEART | | | | | | MEDICAL | | | | | | CENTER | | | | | | LAB[facility] | | | | | | [facility] | | + + + +--------- ----+ + | Hct | 27.7 (L) | 34.0 - 46.0 % | [facility] | | | | | | [facility] | | | | | | HEART | | | | | | MEDICAL | | | | | | CENTER | | | | | | [facility] | | | | | | [facility] | | + + + +--------- ----+ + | Carboxyhemo | 1.0 | 1.0 - 3.0 % | [facility] | | | globin | | | [facility] | | | | | | HEART | | | | | | MEDICAL | | | | | | CENTER | | | | | | LABORATO RY | | | | | | CERNER | | + + + +--------- ----+ + | Hemoglobin | 9.0 (L) | 11.3 - 15.5 | [facility] | | | | | g/dL | [facility] | | | | | | HEART | | | | | | MEDICAL | | | | | | CENTER | | | | | | LABORATO RY | | | | | | CERNER | | + + + +--------- ----+ + | O2SAT COOX | 96.8Comment: Performed | 92.0 - 99.0 % | [facility] | | | ARTERIAL | by [facility] [address], | | SACRED | | | | [place] [address] | | HEART | | | |Performed by [facility] [address], [place] [address] | | MEDICAL | | | | | | CENTER | | | | | | LABORATO RY | | | | | | CERNER | | + + + +--------- ----+ + + + | Specimen | + + | Blood specimen | | (specimen) | + + + + + + + | Performing | Address | City/State/Zipcode | Phone Number | | Organization | | | | + + + + + | [facility] | [address] | [place] [address] | | | [facility] | | | | | LABORATORY [facility] | | | | + + + + + Hemoglobin and Hematocrit (08/19/2017 8:22 AM PDT) + + + + + + | Component | Value | Ref Range | Performed | Pathologist | | | | | At | Signature | + + + + + + | Hemoglobin | 8.9 (L) | 11.3 - 15.5 | [facility] | | | | | g/dL | [facility] | | | | | | HEART | | | | | | MEDICAL | | | | | | CENTER | | | | | | LABORATORY | | | | | | CERNER | | + + + + + + | Hct | 25.3 (L)Comment: | 34.0 - 46.0 % | [facility] | | | | Performed by [facility] [address] | | SACRED | | | | [address] [place] | | HEART | | | | [address] | | MEDICAL | | | | | | CENTER | | | | | | LABORATORY | | | | | | CERNER | | + + + + + + + + | Specimen | + + | Blood specimen | | (specimen) | + + + + + + + | Performing | Address | City/State/Zipcode | Phone Number | | Organization | | | | + + + + + | [facility] | [address] | [place] [address] | | | [facility] | | | | | LABORATORY CERNER | | | | + + + + + Culture, Respiratory, Lower, Smear (08/19/2017 7:33 AM PDT) + + + + + + | Component | Value | Ref Range | Performed | Pathologist | | | | | At | Signature | + + + + + + | FINAL | Mixed Martita | | [facility] | | | REPORT | | | [facility] | | | | | | HEART | | | | | | MEDICAL | | | | | | CENTER | | | | | | LABORATORY | | | | | | CERNER | | + + + + + + | Gram Stain | Abundant Neutrophils No | | [facility] | | | | squamous epithelial | | [facility] | | | | cells seen No organisms | | HEART | | | | seen. Comment: | | MEDICAL | | | | Performed by [facility] [address] | | CENTER | | | | [address], [place] | | LABORATORY | | | | [address] | | CERNER | | | | | | | | + + + + + + + + | Specimen | + + | Body fluid sample | | (specimen) - Sputum, | | Suction | + + + + + + + | Performing | Address | City/State/Zipcode | Phone Number | | Organization | | | | + + + + + | [facility] | [address] | [place] [address] | | | [facility] | | | | | LABORATORY CERNER | | | | + + + + + Lactic Acid, Arterial, Respiratory (08/19/2017 6:15 AM PDT) + + + + + + | Component | Value | Ref Range | Performed | Pathologist | | | | | At | Signature | + + + + + + | Lactate, | 2.3 (H)Comment: | 0.5 - 1.6 | [facility] | | | Arterial | Performed by [facility] [address] | mmol/L | SACRED | | | | [address] [place], [place] | | HEART | | | | [address] | | MEDICAL | | | | | | CENTER | | | | | | LABORATORY | | | | | | CERNER | | + + + + + + + + | Specimen | + + | Blood specimen | | (specimen) | + + + + + + + | Performing | Address | City/State/Zipcode | Phone Number | | Organization | | | | + + + + + | [facility] | [address] | [place] [address] | | | [facility] | | | | | LABORATORY CERNER | | | | + + + + + Potassium Whole Blood (08/19/2017 6:15 AM PDT) + + + + + + | Component | Value | Ref Range | Performed | Pathologist | | | | | At | Signature | + + + + + + | K | 4.0Comment: Performed | 3.5 - 5.0 | [facility] | | | | by [facility] [address], | mmol/L | SACRED | | | | [place] [address] | | HEART | | | |Performed by [facility] [address], [place] [address] | | MEDICAL | | | | | | CENTER | | | | | | LABORATORY | | | | | | CERNER | | + + + + + + + + | Specimen | + + | Blood specimen | | (specimen) | + + + + + + + | Performing | Address | City/State/Zipcode | Phone Number | | Organization | | | | + + + + + | [facility] | [address] | [place] [address] | | | [facility] | | | | | LABORATORY CERNER | | | | + + + + + Blood Gas, Arterial (08/19/2017 6:15 AM PDT) + + + + + + | Component | Value | Ref Range | Performed | Pathologist | | | | | At | Signature | + + + + + + | pH, | 7.25 (AA) | 7.37 - 7.47 | [facility] | | | Arterial | Comment: | | [facility] | | | | | | HEART | | | | Called to Mary Anne Virk RN | | MEDICAL | | | | | | CENTER | | | | | | LABORATORY | | | | | | CERNER | | + + + + + + | pCO2, | 53 (AA) | 32 - 43 mmHg | [facility] | | | Arterial | Comment: | | [facility] | | | | | | HEART | | | | called to Mary Anne Virk RN | | MEDICAL | | | | | | CENTER | | | | | | LABORATORY | | | | | | CERNER | | + + + + + + | pO2, | 58 (L) | 65 - 80 mmHg | [facility] | | | Arterial | | | [facility] | | | | | | HEART | | | | | | MEDICAL | | | | | | CENTER | | | | | | LABORATORY | | | | | | CERNER | | + + + + + + | Base | -4.1 (L) | -2.5 - 2.5 | [facility] | | | Excess, | | mmol/L | [facility] | | | Arterial | | | HEART | | | | | | MEDICAL | | | | | | CENTER | | | | | | LABORATORY | | | | | | CERNER | | + + + + + + | HCO3, | 23.1 | 23.0 - 28.0 | [facility] | | | Arterial | | mmol/L | [facility] | | | | | | HEART | | | | | | MEDICAL | | | | | | CENTER | | | | | | LABORATORY | | | | | | CERNER | | + + + + + + | FiO2 | 40 | | [facility] | | | | | | [facility] | | | | | | HEART | | | | | | MEDICAL | | | | | | CENTER | | | | | | LABORATORY | | | | | | CERNER | | + + + + + + | ROUTE | sbt/PS=8 | | [facility] | | | | | | [facility] | | | | | | HEART | | | | | | MEDICAL | | | | | | CENTER | | | | | | LABORATORY | | | | | | CERNER | | + + + + + + | PEEP | 5 | | [facility] | | | | | | [facility] | | | | | | HEART | | | | | | MEDICAL | | | | | | CENTER | | | | | | LABORATORY | | | | | | CERNER | | + + + + + + | Methemoglob | 0.6 | 0.4 - 1.5 % | [facility] | | | in, Venous | | | [facility] | | | | | | HEART | | | | | | MEDICAL | | | | | | CENTER | | | | | | LABORATORY | | | | | | CERNER | | + + + + + + | Oxygen | 10.6 (L) | 15.0 - 23.0 % | [facility] | | | Content, | | | [facility] | | | Arterial | | | HEART | | | | | | MEDICAL | | | | | | CENTER | | | | | | LABORATORY | | | | | | CERNER | | + + + + + + | Hct | 26.7 (L) | 34.0 - 46.0 % | [facility] | | | | | | [facility] | | | | | | HEART | | | | | | MEDICAL | | | | | | CENTER | | | | | | LABORATORY | | | | | | CERNER | | + + + + + + | Carboxyhemo | 1.0 | 1.0 - 3.0 % | [facility] | | | globin | | | [facility] | | | | | | HEART | | | | | | MEDICAL | | | | | | CENTER | | | | | | LABORATORY | | | | | | CERNER | | + + + + + + | Hemoglobin | 8.7 (L) | 11.3 - 15.5 | [facility] | | | | | g/dL | [facility] | | | | | | HEART | | | | | | MEDICAL | | | | | | CENTER | | | | | | LABORATORY | | | | | | CERNER | | + + + + + + | O2SAT COOX | 86.1 (L)Comment: | 92.0 - 99.0 % | [facility] | | | ARTERIAL | Performed by [facility] [address] | | SACRED | | | | [address] [place] | | HEART | | | | [address] | | MEDICAL | | | | | | CENTER | | | | | | LABORATORY | | | | | | CERNER | | + + + + + + + + | Specimen | + + | Blood specimen | | (specimen) | + + + + + + + | Performing | Address | City/State/Zipcode | Phone Number | | Organization | | | | + + + + + | [facility] | [address] | [place] [address] | | | [facility] | | | | | LABORATORY [facility] | | | | + + + + + Hemoglobin and Hematocrit (08/19/2017 3:06 AM PDT) + + + + + + | Component | Value | Ref Range | Performed | Pathologist | | | | | At | Signature | + + + + + + | Hemoglobin | 7.5 (L) | 11.3 - 15.5 | [facility] | | | | | g/dL | [facility] | | | | | | HEART | | | | | | MEDICAL | | | | | | CENTER | | | | | | LABORATORY | | | | | | CERNER | | + + + + + + | Hct | 21.5 (L)Comment: | 34.0 - 46.0 % | [facility] | | | | Performed by [facility] [address] | | SACRED | | | | [address] [place] | | HEART | | | | [address] | | MEDICAL | | | | | | CENTER | | | | | | LABORATORY | | | | | | CERNER | | + + + + + + + + | Specimen | + + | Blood specimen | | (specimen) | + + + + + + + | Performing | Address | City/State/Zipcode | Phone Number | | Organization | | | | + + + + + | [facility] | [address] | [place] [address] | | | [facility] | | | | | LABORATORY A[facility]OU | | | | + + + + + Lactic Acid (08/19/2017 3:06 AM PDT) + + + + + + | Component | Value | Ref Range | Performed | Pathologist | | | | | At | Signature | + + + + + + | Lactate, | 1.8Comment: Performed | 0.5 - 2.2 | [facility] | | | Venous | by [facility] [address], | mmol/L | SACRED | | | | [place] [address] | | HEART | | | |Performed by [facility] [address], [place] [address] | | MEDICAL | | | | | | CENTER | | | | | | LABORATORY | | | | | | CERNER | | + + + + + + + + | Specimen | + + | Blood specimen | | (specimen) | + + + + + + + | Performing | Address | City/State/Zipcode | Phone Number | | Organization | | | | + + + + + | [facility] | [address] | [place] [address] | | | [facility] | | | | | LABORATORY C[facility] | | | | + + + + + Basic Metabolic Panel (08/19/2017 3:06 AM PDT) + + + + + + | Component | Value | Ref Range | Performed | Pathologist | | | | | At | Signature | + + + + + + | Na | 144 | 135 - 145 | [facility] | | | | | mmol/L | [facility] | | | | | | HEART | | | | | | MEDICAL | | | | | | CENTER | | | | | | LABORATORY | | | | | | CERNER | | + + + + + + | K | 3.9 | 3.5 - 5.0 | [facility] | | | | | mmol/L | [facility] | | | | | | HEART | | | | | | MEDICAL | | | | | | CENTER | | | | | | LABORATORY | | | | | | CERNER | | + + + + + + | Cl | 113 (H) | 99 - 109 mmol/L | [facility] | | | | | | [facility] | | | | | | HEART | | | | | | MEDICAL | | | | | | CENTER | | | | | | LABORATORY | | | | | | CERNER | | + + + + + + | CO2 | 25 | 21 - 28 mmol/L | [facility] | | | | | | [facility] | | | | | | HEART | | | | | | MEDICAL | | | | | | CENTER | | | | | | LABORATORY | | | | | | CERNER | | + + + + + + | Anion Gap | 6 | 5 - 16 mmol/L | [facility] | | | | | | [facility] | | | | | | HEART | | | | | | MEDICAL | | | | | | CENTER | | | | | | LABORATORY | | | | | | CERNER | | + + + + + + | Calcium | 8.5 | 8.5 - 10.2 | [facility] | | | | | mg/dL | [facility] | | | | | | HEART | | | | | | MEDICAL | | | | | | CENTER | | | | | | LABORATORY | | | | | | CERNER | | + + + + + + | BUN | 8 | 8 - 25 mg/dL | [facility] | | | | | | [facility] | | | | | | HEART | | | | | | MEDICAL | | | | | | CENTER | | | | | | LABORATORY | | | | | | CERNER | | + + + + + + | Creatinine | 0.57 | 0.50 - 1.00 | [facility] | | | | | mg/dL | [facility]CR[facility] | | | | | | HEART | | | | | | MEDICAL | | | | | | CENTER | | | | | | LABORATORY | | | | | | CERNER | | + + + + + + | Glucose | 105 (H) | 65 - 99 mg/dL | [facility] | | | | | | [facility] | | | | | | HEART | | | | | | MEDICAL | | | | | | CENTER | | | | | | LABORATORY | | | | | | CERNER | | + + + + + + | Estimated | 98Comment: eGFR<60 | >=90 | [facility] | | | GFR | consistent with impaired | mL/min/1.73m2 | [facility]ED | | | | kidney | | HEART | | | | function.Performed by | | MEDICAL | | | | [facility] [address], | | CENTER | | | | [place] [address] | | LABORATORY | | | | | | CERNER | | + + + + + + + + | Specimen | + + | Blood specimen | | (specimen) | + + + + + + + | Performing | Address | City/State/Zipcode | Phone Number | | Organization | | | | + + + + + | [facility] | [address] | [place] [address] | | | [facility] | | | | | LABORATORY CERNER | | | | + + + + + Vitamin D, Deficiency Screen (25-Hydroxy) (08/19/2017 3:06 AM PDT) + + + + + + | Component | Value | Ref Range | Performed | Pathologist | | | | | At | Signature | + + + + + + | Vitamin D, | 18.8 (L)Comment: | 30.0 - 100.0 | [facility] | | | 25 Hydroxy | Vitamin D deficiency has | ng/mL | [facility] | | | | been defined by the | | HEART | | | | [facility] [facility] and | | MEDICAL | | | | an Endocrine Society | | CENTER | | | | practice guideline as | | LABORATORY | | | | alevel of serum 25-OH | | C[facility] | | | | vitamin D less than 20 | | | | | | ng/mL (1,2).The | | | | | | Endocrine Society went | | | | | | on to further define | | | | | | vitamin Dinsufficiency | | | | | | as a level between 21 | | | | | | and 29 ng/mL (2).1. IOM | | | | | | ([place] of Medicine). | | | | | | 2009. Dietary reference | | | | | | intakes for calcium | | | | | | and DThelma Dang [place]: | | | | | | The National | | | | | | Academies Press.2. | | | | | | Hailey MF, Edward [place], | | | | | | Hillary RAYA, et | | | | | | al. Evaluation, | | | | | | treatment, and | | | | | | prevention of vitamin D | | | | | | deficiency: an | | | | | | Endocrine Society | | | | | | clinical practice | | | | | | guideline. JCEM. 2010 | | | | | | Sep; | | | | | | 96(7):1911-30.Performed | | | | | | At: [facility] | | | | | | [address] | | | | | | [address] [place], [place] | | | | | | [id number] | | | | | | L Ph:[id number] | | | | + + + + + + + + | Specimen | + + | Blood specimen | | (specimen) | + + + + + + + | Performing | Address | City/State/Zipcode | Phone Number | | Organization | | | | + + + + + | [facility] | [address] | [place] [address] | | | [facility] | | | | | LABORATORY [place] | | | | + + + + + Lactic Acid (08/18/2017 11:28 PM PDT) + + + + + + | Component | Value | Ref Range | Performed | Pathologist | | | | | At | Signature | + + + + + + | Lactate, | 1.8Comment: Performed | 0.5 - 2.2 | [facility] | | | Venous | by [facility] [address], | mmol/L | SACRED | | | | [place] [address] | | HEART | | | |Performed by [facility] [address], [place] [address] | | MEDICAL | | | | | | CENTER | | | | | | LABORATORY | | | | | | CERNER | | + + + + + + + + | Specimen | + + | Blood specimen | | (specimen) | + + + + + + + | Performing | Address | City/State/Zipcode | Phone Number | | Organization | | | | + + + + + | [facility] | [address] | [place] [address] | | | [facility] | | | | | LABORATORY [facility] | | | | + + + + + CBC with Differential (08/18/2017 11:28 PM PDT) + + + +------- ------+ + | Component | Value | Ref Range | Perfor med | Pathologist | | | | | At | Signature | + + + +------- ------+ + | WBC | 11.8 (H) | 3.8 - 11.0 K/uL | [facility] | | | | | | [facility] | | | | | | HEART | | | | | | MEDICA L | | | | | | CENTER | | | | | | LABORA TORY | | | | | | CERNER | | + + + +------- ------+ + | RBC | 2.45 (L) | 3.70 - 5.10 | [facility] | | | | | M/uL | [facility] | | | | | | HEART | | | | | | MEDICA L | | | | | | CENTER | | | | | | LABORA TORY | | | | | | CERNER | | + + + +------- ------+ + | Hemoglobin | 7.5 (L) | 11.3 - 15.5 | [facility] | | | | | g/dL | [facility] | | | | | | HEART | | | | | | MEDICA L | | | | | | CENTER | | | | | | LABORA TORY | | | | | | CERNER | | + + + +------- ------+ + | Hct | 21.4 (L) | 34.0 - 46.0 % | [facility] | | | | | | [facility] | | | | | | HEART | | | | | | MEDICA L | | | | | | CENTER | | | | | | LABORA TORY | | | | | | CERNER | | + + + +------- ------+ + | MCV | 87.2 | 80.0 - 100.0 fL | [facility] | | | | | | [facility] | | | | | | HEART | | | | | | MEDICA L | | | | | | CENTER | | | | | | LABORA TORY | | | | | | CERNER | | + + + +------- ------+ + | MCH | 30.4 | 27.0 - 34.0 pg | [facility] | | | | | | [facility] | | | | | | HEART | | | | | | MEDICA L | | | | | | CENTER | | | | | | LABORA TORY | | | | | | CERNER | | + + + +------- ------+ + | MCHC | 34.9 | 32.0 - 35.5 | [facility] | | | | | g/dL | [facility] | | | | | | HEART | | | | | | MEDICA L | | | | | | CENTER | | | | | | LABORA TORY | | | | | | CERNER | | + + + +------- ------+ + | RDW-CV | 15.2 | 11.0 - 15.5 % | [facility] | | | | | | [facility] | | | | | | HEART | | | | | | MEDICA L | | | | | | CENTER | | | | | | LABORA TORY | | | | | | CERNER | | + + + +------- ------+ + | Platelet | 116 (L) | 150 - 400 K/uL | [facility] | | | Count | | | [facility] | | | | | | HEART | | | | | | MEDICA L | | | | | | CENTER | | | | | | LABORA TORY | | | | | | CERNER | | + + + +------- ------+ + | MPV | 7.3 (L) | 7.5 - 11.2 fL | [facility] | | | | | | [facility] | | | | | | HEART | | | | | | MEDICA L | | | | | | CENTER | | | | | | LABORA TORY | | | | | | CERNER | | + + + +------- ------+ + | % | 77.5 (H) | 40.0 - 75.0 % | [facility] | | | Neutrophils | | | SACR[facility] | | | | | | HEART | | | | | | MEDICA L | | | | | | CENTER | | | | | | LABORA TORY | | | | | | CERNER | | + + + +------- ------+ + | % | 11.1 (L) | 15.0 - 48.0 % | [facility] | | | Lymphocytes | | | [facility]CR[facility] | | | | | | HEART | | | | | | MEDICA L | | | | | | CENTER | | | | | | LABORA TORY | | | | | | CERNER | | + + + +------- ------+ + | % Monocytes | 11.2 | 0.0 - 12.0 % | [facility] | | | | | | [facility] | | | | | | HEART | | | | | | MEDICA L | | | | | | CENTER | | | | | | LABORA TORY | | | | | | CERNER | | + + + +------- ------+ + | % Basophils | 0.2 | 0.0 - 2.0 % | [facility] | | | | | | [facility] | | | | | | HEART | | | | | | MEDICA L | | | | | | CENTER | | | | | | LABORA TORY | | | | | | CERNER | | + + + +------- ------+ + | Absolute | 9.20 (H) | 1.90 - 7.40 | [facility] | | | Neutrophils | | K/uL | SACRED | | | | | | HEART | | | | | | MEDICA L | | | | | | CENTER | | | | | | LABORA TORY | | | | | | CERNER | | + + + +------- ------+ + | Absolute | 1.31 | 1.00 - 3.90 | [facility] | | | Lymphocytes | | K/uL | SACR[facility] | | | | | | HEART | | | | | | MEDICA L | | | | | | CENTER | | | | | | LABORA TORY | | | | | | CERNER | | + + + +------- ------+ + | Absolute | 1.32 (H) | 0.00 - 0.80 | [facility] | | | Monocytes | | K/uL | SACRED | | | | | | HEART | | | | | | MEDICA L | | | | | | CENTER | | | | | | LABORA TORY | | | | | | CERNER | | + + + +------- ------+ + | Absolute | 0.02 | 0.00 - 0.10 | [facility] | | | Basophils | | K/uL | [facility] | | | | | | HEART | | | | | | MEDICA L | | | | | | CENTER | | | | | | LABORA TORY | | | | | | CERNER | | + + + +------- ------+ + | Platelet | Decreased | | [facility] | | | Estimate | | | [facility]CRED | | | | | | HEART | | | | | | MEDICA L | | | | | | CENTER | | | | | | LABORA TORY | | | | | | CERNER | | + + + +------- ------+ + | Tear Drop | 1+Comment: Performed by | | [facility] | | | Cells | [facility] [address], | | SACRED | | | | [place] [address] | | HEART | | | |Performed by [facility] [address], [place] [address] | | MEDICA L | | | | | | CENTER | | | | | | LABORA TORY | | | | | | CERNER | | + + + +------- ------+ + + + | Specimen | + + | Blood specimen | | (specimen) | + + + + + + + | Performing | Address | City/State/Zipcode | Phone Number | | Organization | | | | + + + + + | [facility] | [address] | [place] [address] | | | [facility] | | | | | LABORATORY [facility] | | | | + + + + + Potassium Whole Blood (08/18/2017 8:19 PM PDT) + + + + + + | Component | Value | Ref Range | Performed | Pathologist | | | | | At | Signature | + + + + + + | K | 4.0Comment: Performed | 3.5 - 5.0 | [facility] | | | | by [facility] [address], | mmol/L | SACRED | | | | [place] | | HEART | | | |Performed by [facility] [address], [place], [place] | | MEDICAL | | | | | | CENTER | | | | | | LABORATORY | | | | | | CERNER | | + + + + + + + + | Specimen | + + | Blood specimen | | (specimen) | + + + + + + + | Performing | Address | City/State/Zipcode | Phone Number | | Organization | | | | + + + + + | [facility] | [address] | [place] | | | [facility] | | | | | LABORATORY [facility] | | | | + + + + + Lactic Acid, Arterial, Respiratory (08/18/2017 8:19 PM PDT) + + + + + + | Component | Value | Ref Range | Performed | Pathologist | | | | | At | Signature | + + + + + + | Lactate, | 2.7 (H)Comment: | 0.5 - 1.6 | [facility] | | | Arterial | Performed by [facility] [address] | mmol/L | SACRED | | | | [address] [place], [place] | | HEART | | | | [address] | | MEDICAL | | | | | | CENTER | | | | | | LABORATORY | | | | | | CERNER | | + + + + + + + + | Specimen | + + | Blood specimen | | (specimen) | + + + + + + + | Performing | Address | City/State/Zipcode | Phone Number | | Organization | | | | + + + + + | [facility] | [address] | [place] [address] | | | [facility] | | | | | LABORATORY [facility] | | | | + + + + + Calcium, Ionized, Respiratory (08/18/2017 8:19 PM PDT) + + + + ---+ + | Component | Value | Ref Range | Performed | Pathologist | | | | | At | Signature | + + + + ---+ + | Calcium, | 5.06 | 4.75 - 5.30 | [facility] | | | Ionized | | mg/dL | [facility] | | | | | | HEART | | | | | | MEDICAL | | | | | | CENTER | | | | | | LABORATOR Y | | | | | | [facility] | | + + + + ---+ + | Calcium, pH | 4.90Comment: Performed | 4.75 - 5.30 | [facility] | | | Normalized | by [place] [id number] | mg/dL | [facility] | | | | [place] [address] | | HEART | | | |Performed by [facility] [address], [place] [address] | | MEDICAL | | | | | | CENTER | | | | | | LABORATOR Y | | | | | | [facility] | | + + + + ---+ + + + | Specimen | + + | Blood specimen | | (specimen) | + + + + + + + | Performing | Address | City/State/Zipcode | Phone Number | | Organization | | | | + + + + + | [facility] | [address] | [place] [address] | | | [facility] | | | | | LABORATORY [facility] | | | | + + + + + Blood Gas, Arterial (08/18/2017 8:19 PM PDT) + + + +--------- ----+ + | Component | Value | Ref Range | Performe d | Pathologist | | | | | At | Signature | + + + +--------- ----+ + | pH, | 7.34 (L) | 7.37 - 7.47 | [facility] | | | Arterial | | | [facility] | | | | | | HEART | | | | | | MEDICAL | | | | | | CENTER | | | | | | LABORATO RY | | | | | | [facility] | | + + + +--------- ----+ + | pCO2, | 39 | 32 - 43 mmHg | [facility] | | | Arterial | | | [facility] | | | | | | HEART | | | | | | MEDICAL | | | | | | CENTER | | | | | | LABORATO RY | | | | | | [facility] | | + + + +--------- ----+ + | pO2, | 139 (H) | 65 - 80 mmHg | [facility] | | | Arterial | | | [facility] | | | | | | HEART | | | | | | MEDICAL | | | | | | CENTER | | | | | | LABORATO RY | | | | | | [facility] | | + + + +--------- ----+ + | Base | -4.5 (L) | -2.5 - 2.5 | [facility] | | | Excess, | | mmol/L | [facility] | | | Arterial | | | HEART | | | | | | MEDICAL | | | | | | CENTER | | | | | | LABORATO RY | | | | | | [facility] | | + + + +--------- ----+ + | HCO3, | 21.2 (L) | 23.0 - 28.0 | [facility] | | | Arterial | | mmol/L | [facility] | | | | | | HEART | | | | | | MEDICAL | | | | | | CENTER | | | | | | LABORATO RY | | | | | | [facility] | | + + + +--------- ----+ + | FiO2 | 40 | | [facility] | | | | | | [facility] | | | | | | HEART | | | | | | MEDICAL | | | | | | CENTER | | | | | | LABORATO RY | | | | | | [facility] | | + + + +--------- ----+ + | ROUTE | PS8 | | [facility] | | | | | | [facility] | | | | | | HEART | | | | | | MEDICAL | | | | | | CENTER | | | | | | LABORATO RY | | | | | | [facility] | | + + + +--------- ----+ + | Methemoglob | 0.9 | 0.4 - 1.5 % | [facility] | | | in, Venous | | | [facility] | | | | | | HEART | | | | | | MEDICAL | | | | | | CENTER | | | | | | LABORATO RY | | | | | | [facility] | | + + + +--------- ----+ + | Oxygen | 11.2 (L) | 15.0 - 23.0 % | [facility] | | | Content, | | | [facility] | | | Arterial | | | HEART | | | | | | MEDICAL | | | | | | CENTER | | | | | | LABORATO RY | | | | | | [facility] | | + + + +--------- ----+ + | Hct | 24.3 (L) | 34.0 - 46.0 % | [facility] | | | | | | [facility] | | | | | | HE[facility] | | | | | | MEDICAL | | | | | | CENTER | | | | | | LABORATO RY | | | | | | [facility] | | + + + +--------- ----+ + | Carboxyhemo | 0.6 (L) | 1.0 - 3.0 % | [facility] | | | [facility] | | | [facility] | | | | | [facility] | | | | | | MEDICAL | | | | | | CENTER | | | | | | LAB[facility]ATO RY | | | | | | [facility] | | + + + +--------- ----+ + | Hemoglobin | 7.9 (L) | 11.3 - 15.5 | [facility] | | | | | g/dL | [facility] | | | | | | [facility] | | | | | | MEDICAL | | | | | | CENTER | | | | | | LABORATO RY | | | | | | [facility] | | + + + +--------- ----+ + | O2SAT COOX | 97.9Comment: Performed | 92.0 - 99.0 % | [facility] | | | ARTERIAL | by [facility] [address], | | [facility] | | | | [place] [address] | | HEART | | | |Performed by [facility] [address], [place] [address] | | MEDICAL | | | | | | CENTER | | | | | | LABORATO RY | | | | | | CERNER | | + + + +--------- ----+ + + + | Specimen | + + | Blood specimen | | (specimen) | + + + + + + + | Performing | Address | City/State/Zipcode | Phone Number | | Organization | | | | + + + + + | [facility] | [address] | [place] [address] | | | [facility] | | | | | LAB[facility]AT[facility] | | | | + + + + + Lactic Acid (08/18/2017 8:07 PM PDT) + + + + + + | Component | Value | Ref Range | Performed | Pathologist | | | | | At | Signature | + + + + + + | Lactate, | 3.1 (H)Comment: | 0.5 - 2.2 | [facility] | | | Venous | Performed by [facility] [address] | mmol/L | [facility] | | | | [address], [place] | | HEART | | | | [address] | | MEDICAL | | | | | | CENTER | | | | | | LABORATORY | | | | | | CERNER | | + + + + + + + + | Specimen | + + | Blood specimen | | (specimen) | + + + + + + + | Performing | Address | City/State/Zipcode | Phone Number | | Organization | | | | + + + + + | [facility] | [address] | [place] [address] | | | [facility] | | | | | LABORATORY [facility] | | | | + + + + + Extra Hold Tube(s) (08/18/2017 8:00 PM PDT) + + + + + + | Component | Value | Ref Range | Performed | Pathologist | | | | | At | Signature | + + + + + + | Extra Tube | DrawnComment: Performed | | [facility] | | | | by [facility] [address], | | SACRED | | | | [place] [address] | | HEART | | | |Performed by [facility] [address], [place] [address] | | MEDICAL | | | | | | CENTER | | | | | | LABORATORY | | | | | | CERNER | | + + + + + + + + | Specimen | + + | Blood specimen | | (specimen) | + + + + + | Narrative | Performed At | + + + | sst | [facility] | | | [facility] | | | MEDICAL CENTER | | | LABORATORY | | | [place] | + + + + + + + + | Performing | Address | City/State/Zipcode | Phone Number | | Organization | | | | + + + + + | [facility] | [address] | [place] [address] | | | [facility] | | | | | LABORATORY [facility] | | | | + + + + + Hemoglobin and Hematocrit (08/18/2017 7:57 PM PDT) + + + + + + | Component | Value | Ref Range | Performed | Pathologist | | | | | At | Signature | + + + + + + | Hemoglobin | 8.1 (L) | 11.3 - 15.5 | [facility] | | | | | g/dL | [facility] | | | | | | HEART | | | | | | MEDICAL | | | | | | CENTER | | | | | | LABORATORY | | | | | | [facility] | | + + + + + + | Hct | 23.2 (L)Comment: | 34.0 - 46.0 % | [facility] | | | | Performed by [facility] [address] | | [facility] | | | | [address] | | HEART | | | | [address] | | MEDICAL | | | | | | CENTER | | | | | | LABORATORY | | | | | | CERNER | | + + + + + + + + | Specimen | + + | Blood specimen | | (specimen) | + + + + + + + | Performing | Address | City/State/Zipcode | Phone Number | | Organization | | | | + + + + + | [facility] | [address] | [place] [address] | | | [facility] | | | | | LAB[facility]AT[facility] | | | | + + + + + IR Angio Abdomen/Pelvic/Visceral/Renal (08/18/2017 4:15 PM PDT) + + | Specimen | + + | | + + + + + | Narrative | Performed At | + + + | 1. ULTRASOUND-GUIDED RIGHT COMMON FEMORAL ARTERY PUNCTURE 2. | [facility] | | SUPERIOR MESENTERIC ARTERY ANGIOGRAM 3. SELECTIVE CATHETERIZATION AND | | | EMBOLIZATION OF THE RIGHT GASTRIC ARTERY WHICH HAS ORIGIN FROM THE | | | REPLACED COMMON HEPATIC ARTERY FROM THE SUPERIOR MESENTERIC ARTERY | | | 4. ANGIOGRAM THROUGH EXISTING SHEATH 5. 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 COMPARISON: IR PROCEDURE dated 08/18/2017; ABD/PELVIS | | | WITH CONTRAST dated 08/17/2017 PROCEDURE: The risks, benefits and | | | alternatives were discussed with the patient; consent was obtained | | | and placed in the patient's chart. The risks included but were not | | | limited to puncture site bleeding, stroke, kidney failure, allergic | | | reaction and . Consent was obtained and placed in the | | | patient's chart. The patient was then brought to the procedure room | | | placed in the supine position were the right groin was sterilely | | | prepped and draped in usual fashion. After local anesthetic was | | | administered, a micropuncture needle was utilized access the right | | | common femoral artery. Using standard Seldinger technique, a 6 | | | [place] African sheath was positioned into the right common femoral artery and | | | attached to a flush system. A 5 South African Scott 2 catheter was | | | then positioned through a 6 South African guiding catheter an utilized to | | | select the superior mesenteric artery and an angiogram was performed. | | | The catheter was then advanced into the replaced common hepatic | | | artery and an angiogram was performed. The guiding catheter was then | | | advanced over the Scott 2 catheter into the hepatic artery. A | | | microcatheter with a balloon tip was then advanced into the right | | | gastric artery and an angiogram was performed. Balloon tip | | | microcatheter was then inflated and glue was utilized to embolize the | | | entire length of the right gastric artery. The balloon was deflated. | | | The balloon was removed. A completion angiogram was performed. | | | Hemostasis was achieved with a 6 [place] African Angio-Seal device. | | | Maximum sterile barrier techniques taken. All staff present in the | | | room performed hand hygiene prior to the procedure. There were no | | | immediate complications following the procedure. Estimated blood | | | loss: Minimal. Fluoro Time: 21.8 minutes The total number of | | | images: 6 image series Contrast: 90 ml Omnipaque | | | Medications: , and 2 mg Versed were utilized for conscious | | | sedation. The conscious sedation nurse who monitored the blood | | | pressure, heart rate, and pulse oximeter during the examination | | | administered the medications. The patient was monitored for | | | approximately 60 minutes. A permanent sonographic recording was | | | created for the patient's record. FINDINGS: The ultrasound | | | demonstrated a widely patent right common femoral artery. A | | | permanent image was obtained and placed in the patients chart. | | | The superior mesenteric angiogram demonstrates the replaced common | | | hepatic artery. Selective catheterization of the right gastric | | | artery confirms the diffusely abnormal vessels multiple tandem areas | | | of irregularity and likely source of bleeding. Following glue | | | embolization, the artery is completely occluded. IMPRESSION: | | | Successful glue embolization of the right gastric artery. | | | Signed by: MD Ha Christopher | | + + + + + | Procedure Note | + + | Avelino, Rad Results In - 08/19/2017 9:47 AM PDT | | 1. ULTRASOUND-GUIDED RIGHT COMMON FEMORAL ARTERY PUNCTURE | | 2. SUPERIOR MESENTERIC ARTERY ANGIOGRAM | | 3. SELECTIVE CATHETERIZATION AND EMBOLIZATION OF THE RIGHT GASTRIC | | ARTERY WHICH HAS ORIGIN FROM THE REPLACED COMMON HEPATIC ARTERY FROM | | THE SUPERIOR MESENTERIC ARTERY | | 4. ANGIOGRAM THROUGH EXISTING SHEATH | | 5. ANGIO-SEAL CLOSURE RIGHT COMMON FEMORAL ARTERY | | | | CLINICAL INFORMATION: | | 62-year-old female with chronic celiac artery occlusion with replaced | | common hepatic artery to the superior mesenteric artery with enlarged | | right gastric artery supplying collateralization to the celiac artery | | with multiple tandem aneurysms likely the source of the patient's | | significant hemorrhage. | | | | COMPARISON: | | IR PROCEDURE dated 08/18/2017; ABD/PELVIS WITH CONTRAST dated 08/17/2017 | | | | PROCEDURE: | | The risks, benefits and alternatives were discussed with the patient; | | consent was obtained and placed in the patient's chart. The risks | | included but were not limited to puncture site bleeding, stroke, | | kidney failure, allergic reaction and . | | | | Consent was obtained and placed in the patient's chart. The patient | | was then brought to the procedure room placed in the supine position | | were the right groin was sterilely prepped and draped in usual | | fashion. After local anesthetic was administered, a micropuncture | | needle was utilized access the right common femoral artery. Using | | standard Seldinger technique, a 6 [place] African sheath was positioned into | | the right common femoral artery and attached to a flush system. | | | | A 5 [place] African Scott 2 catheter was then positioned through a 6 [place] African | | guiding catheter an utilized to select the superior mesenteric artery | | and an angiogram was performed. The catheter was then advanced into | | the replaced common hepatic artery and an angiogram was performed. | | The guiding catheter was then advanced over the Scott 2 catheter | | into the hepatic artery. A microcatheter with a balloon tip was then | | advanced into the right gastric artery and an angiogram was | | performed. Balloon tip microcatheter was then inflated and glue was | | utilized to embolize the entire length of the right gastric artery. | | The balloon was deflated. The balloon was removed. A completion | | angiogram was performed. Hemostasis was achieved with a 6 [place] | | Angio-Seal device. | | | | Maximum sterile barrier techniques taken. All staff present in the | | room performed hand hygiene prior to the procedure. | | | | There were no immediate complications following the procedure. | | Estimated blood loss: Minimal. | | | | Fluoro Time: 21.8 minutes The total number of images: 6 image series | | | | Contrast: 90 ml Omnipaque | | | | Medications: | | , and 2 mg Versed were utilized for conscious sedation. The | | conscious sedation nurse who monitored the blood pressure, heart | | rate, and pulse oximeter during the examination administered the | | medications. The patient was monitored for approximately 60 minutes. | | A permanent sonographic recording was created for the patient's | | record. | | | | FINDINGS: | | The ultrasound demonstrated a widely patent right common femoral | | artery. A permanent image was obtained and placed in the patients | | chart. | | | | The superior mesenteric angiogram demonstrates the replaced common | | hepatic artery. Selective catheterization of the right gastric | | artery confirms the diffusely abnormal vessels multiple tandem areas | | of irregularity and likely source of bleeding. Following glue | | embolization, the artery is completely occluded. | | | | IMPRESSION: | | Successful glue embolization of the right gastric artery. | | | | | | | | | | Signed by: MD aH Christopher | + + + +---------+ + + | Performing | Address | City/State/Zipcode | Phone Number | | Organization | | | | + +---------+ + + | [facility] | | | | + +---------+ + + Hemoglobin and Hematocrit (08/18/2017 1:32 PM PDT) + + + + + + | Component | Value | Ref Range | Performed | Pathologist | | | | | At | Signature | + + + + + + | Hemoglobin | 8.7 (L) | 11.3 - 15.5 | [facility] | | | | | g/dL | [facility] | | | | | | HEART | | | | | | MEDICAL | | | | | | CENTER | | | | | | LABORATORY | | | | | | [facility] | | + + + + + + | Hct | 25.1 (L)Comment: | 34.0 - 46.0 % | [facility] | | | | Performed by [facility] [address] | | [facility] | | | | [address] [place] | | HEART | | | | [address] | | MEDICAL | | | | | | CENTER | | | | | | LABORATORY | | | | | | CERNER | | + + + + + + + + | Specimen | + + | Blood specimen | | (specimen) | + + + + + + + | Performing | Address | City/State/Zipcode | Phone Number | | Organization | | | | + + + + + | [facility] | [address] | [place] [address] | | | [facility] | | | | | LABORATORY [facility] | | | | + + + + + Lactic Acid, Venous (08/18/2017 11:56 AM PDT) + + + + + + | Component | Value | Ref Range | Performed | Pathologist | | | | | At | Signature | + + + + + + | Lactate, | 2.3 (H)Comment: | 0.5 - 2.2 | [facility] | | | Venous | Performed by [facility] [address] | mmol/L | [facility] | | | | [address], [place] | | HEART | | | | [address] | | MEDICAL | | | | | | CENTER | | | | | | LABORATORY | | | | | | CERN[facility] | | + + + + + + + + | Specimen | + + | Blood specimen | | (specimen) | + + + + + + + | Performing | Address | City/State/Zipcode | Phone Number | | Organization | | | | + + + + + | [facility] | [address] | [place] [address] | | | [facility] | | | | | LABORAT[facility] [place] | | | | + + + + + Calcium, Ionized, Respiratory (08/18/2017 11:56 AM PDT) + + + + + + | Component | Value | Ref Range | Performed | Pathologist | | | | | At | Signature | + + + + + + | Calcium, | 4.67 (L) | 4.75 - 5.30 | [facility] | | | Ionized | | mg/dL | [facility] | | | | | | HEART | | | | | | MEDICAL | | | | | | CENTER | | | | | | LABORATORY | | | | | | [facility] | | + + + + + + | Calcium, pH | 4.66 (L)Comment: | 4.75 - 5.30 | [facility] | | | Normalized | Performed by [facility] [address] | mg/dL | [facility] | | | | [address] [place] | | HEART | | | | [address] | | MEDICAL | | | | | | CENTER | | | | | | LABORATORY | | | | | | CERNER | | + + + + + + + + | Specimen | + + | Blood specimen | | (specimen) | + + + + + + + | Performing | Address | City/State/Zipcode | Phone Number | | Organization | | | | + + + + + | [facility] | [address] | [place] [address] | | | [facility] | | | | | [place] [place] | | | | + + + + + Potassium Whole Blood (08/18/2017 11:56 AM PDT) + + + + + + | Component | Value | Ref Range | Performed | Pathologist | | | | | At | Signature | + + + + + + | K | 5.0Comment: Performed | 3.5 - 5.0 | [facility] | | | | by [facility] [address], | mmol/L | SACRED | | | | [place] [address] | | HEART | | | |Performed by [facility] [address] [place] [address] | | MEDICAL | | | | | | CENTER | | | | | | LABORATORY | | | | | | CERNER | | + + + + + + + + | Specimen | + + | Blood specimen | | (specimen) | + + + + + + + | Performing | Address | City/State/Zipcode | Phone Number | | Organization | | | | + + + + + | [facility] | [address] | [place] [address] | | | [facility] | | | | | LABORATORY [facility] | | | | + + + + + Glucose, Respiratory (08/18/2017 11:56 AM PDT) + + + + + + | Component | Value | Ref Range | Performed | Pathologist | | | | | At | Signature | + + + + + + | Glucose | 118 (H)Comment: | 65 - 99 mg/dL | [facility] | | | | Performed by [facility] [address] | | SACRED | | | | [address], [place] | | HEART | | | | | | MEDICAL | | | | | | CENTER | | | | | | LABORATORY | | | | | | CERNER | | + + + + + + + + | Specimen | + + | Blood specimen | | (specimen) | + + + + + + + | Performing | Address | City/State/Zipcode | Phone Number | | Organization | | | | + + + + + | [facility] | [address] | [place] | | | [facility] | | | | | LABORATORY [facility] | | | | + + + + + Blood Gas, Venous (08/18/2017 11:56 AM PDT) + + + +--------- ----+ + | Component | Value | Ref Range | Performe d | Pathologist | | | | | At | Signature | + + + +--------- ----+ + | pH, Venous | 7.40 | 7.31 - 7.41 | [facility] | | | | | | [facility] | | | | | | HEART | | | | | | MEDICAL | | | | | | CENTER | | | | | | LABORATO RY | | | | | | [place] | | + + + +--------- ----+ + | pCO2, | 34 (L) | 41 - 51 mmHg | [facility] | | | Venous | | | [facility] | | | | | | HEART | | | | | | MEDICAL | | | | | | CENTER | | | | | | LABORATO RY | | | | | | [facility]ER | | + + + +--------- ----+ + | pO2, Venous | 59 (H) | 37 - 43 mmHg | [facility] | | | | | | [facility] | | | | | | HEART | | | | | | MEDICAL | | | | | | CENTER | | | | | | LABORATO RY | | | | | | [facility] | | + + + +--------- ----+ + | Base | -4.2 (L) | -2.0 - 2.0 | [facility] | | | Excess, | | mmol/L | [facility] | | | Venous | | | HEART | | | | | | MEDICAL | | | | | | CENTER | | | | | | LABORATO RY | | | | | | [facility] | | + + + +--------- ----+ + | HCO3, | 20.7 (L) | 22.0 - 26.0 | [facility] | | | Venous | | mmol/L | [facility] | | | | | | HEART | | | | | | MEDICAL | | | | | | CENTER | | | | | | LABORATO RY | | | | | | [facility]ERNER | | + + + +--------- ----+ + | Comment | OX98% ETCO2@27 | | [facility] | | | | | | [facility] | | | | | | HEART | | | | | | MEDICAL | | | | | | CENTER | | | | | | LABORATO RY | | | | | | [facility] | | + + + +--------- ----+ + | Carboxyhemo | 0.9 (L) | 1.0 - 3.0 % | [facility] | | | globin | | | [facility] | | | | | | HEART | | | | | | MEDICAL | | | | | | CENTER | | | | | | LABORATO RY | | | | | | [facility] | | + + + +--------- ----+ + | Hemoglobin | 8.9 (L) | 11.3 - 15.5 | [facility] | | | | | g/dL | [facility] | | | | | | HEART | | | | | | MEDICAL | | | | | | CENTER | | | | | | LABORATO RY | | | | | | [facility] | | + + + +--------- ----+ + | Hct | 27.1 (L) | 34.0 - 46.0 % | [facility] | | | | | | [facility] | | | | | | HEART | | | | | | MEDICAL | | | | | | CENTER | | | | | | LABORATO RY | | | | | | [facility] | | + + + +--------- ----+ + | Methemoglob | 0.7 | 0.4 - 1.5 % | [facility] | | | in, Venous | | | [facility] | | | | | | HEART | | | | | | MEDICAL | | | | | | CENTER | | | | | | LABORATO RY | | | | | | [facility] | | + + + +--------- ----+ + | O2 Content, | 11.4 (H) | 4.5 - 6.0 % | [facility] | | | [facility]en | | | [facility] | | | | | | HEART | | | | | | MEDICAL | | | | | | CENTER | | | | | | LABORATO RY | | | | | | [facility] | | + + + +--------- ----+ + | O2SAT COOX | 91.0 (H) | 70.0 - 76.0 % | [facility] | | | VENOUS | | | [facility] | | | | | | HEART | | | | | | MEDICAL | | | | | | CENTER | | | | | | LABORATO RY | | | | | | [facility] | | + + + +--------- ----+ + | FiO2 | 40 | | [facility] | | | | | | [facility] | | | | | | HEART | | | | | | MEDICAL | | | | | | CENTER | | | | | | LABORATO RY | | | | | | [facility]ER | | + + + +--------- ----+ + | ROUTE | IMVComment: Performed | | [facility] | | | | by [facility] [address], | | SACRED | | | | [place] [address] | | HEART | | | |Performed by [facility] [address], [place] [address] | | MEDICAL | | | | | | CENTER | | | | | | LABORATO RY | | | | | | C[facility]ER | | + + + +--------- ----+ + + + | Specimen | + + | Blood specimen | | (specimen) - Vein | | sample (specimen) | + + + + + + + | Performing | Address | City/State/Zipcode | Phone Number | | Organization | | | | + + + + + | [facility] | [address] | [place] [address] | | | [facility] | | | | | LABORATORY [facility] | | | | + + + + + Hemoglobin and Hematocrit (08/18/2017 11:56 AM PDT) + + + + + + | Component | Value | Ref Range | Performed | Pathologist | | | | | At | Signature | + + + + + + | Hemoglobin | 8.8 (L) | 11.3 - 15.5 | [facility] | | | | | g/dL | [facility] | | | | | | HEART | | | | | | MEDICAL | | | | | | CENTER | | | | | | LABORATORY | | | | | | [facility] | | + + + + + + | Hct | 25.4 (L)Comment: | 34.0 - 46.0 % | [facility] | | | | Performed by [facility] [address] | | SACRED | | | | [address] [place] | | HEART | | | | [address] | | MEDICAL | | | | | | CENTER | | | | | | LABORATORY | | | | | | CERNER | | + + + + + + + + | Specimen | + + | Blood specimen | | (specimen) | + + + + + + + | Performing | Address | City/State/Zipcode | Phone Number | | Organization | | | | + + + + + | [facility] | [address] | [place] [address] | | | [facility] | | | | | LABORATORY [facility] | | | | + + + + + Culture, Blood (08/18/2017 9:39 AM PDT) + + + + + + | Component | Value | Ref Range | Performed | Pathologist | | | | | At | Signature | + + + + + + | FINAL | No GrowthComment: | | [facility] | | | REPORT | Performed by [facility] [address] | | SACRED | | | | [address], [place] | | HEART | | | | [address] | | MEDICAL | | | | | | CENTER | | | | | | LABORATORY | | | | | | CERNER | | + + + + + + + + | Specimen | + + | Blood specimen | | (specimen) - Hand, | | Dorsum, Left | + + + + + + + | Performing | Address | City/State/Zipcode | Phone Number | | Organization | | | | + + + + + | [facility] | [address] | [place] [address] | | | [facility] | | | | | LABORATORY [place] | | | | + + + + + Culture, Blood (08/18/2017 9:35 AM PDT) + + + + + + | Component | Value | Ref Range | Performed | Pathologist | | | | | At | Signature | + + + + + + | FINAL | No GrowthComment: | | [facility] | | | REPORT | Performed by [facility] [address] | | SACR[facility] | | | | [address] [place] | | HEART | | | | [address] | | MEDICAL | | | | | | CENTER | | | | | | LABORATORY | | | | | | CERNER | | + + + + + + + + | Specimen | + + | Blood specimen | | (specimen) - Line | + + + + + + + | Performing | Address | City/State/Zipcode | Phone Number | | Organization | | | | + + + + + | [facility] | [address] | [place] [address] | | | [facility] | | | | | LABORATORY [place] | | | | + + + + + ECHO Complete (08/18/2017 7:59 AM PDT) + +-------+ + + + | Component | Value | Ref Range | Performed | Pathologist | | | | | At | Signature | + +-------+ + + + | LVEF-TTE | 75 | | [facility] | | | TRANSTHORAC | | | | | | IC ECHO | | | | | + +-------+ + + + + + | Specimen | + + | | + + + + --+ | Narrative | Performed At | + + --+ | Transthoracic | [facility] | | Echocardiography Report (TTE) Demographics Patient Name MARCELLA | | | AMY Francois Room Number 258 Patient Number | | | [id number] Date of Study 08/18/2017 Visit | | | Number [id number] | | | Referring Physician BRI Sánchez Date of | | | 1955 [employer] Julien Zamora Age | | | 62 year(s) Interpreting | | | [facility] | | | Skein Inspector | | | Mara Patton MD Gender | | | Female Nurse | | | 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 | | | Procedure dateDate: 08/18/2017Start: 07:21 AM Technical Quality: | | | Adequate visualizationStudy Location: PortableIndications: | | | CARDIOMYOPATHY 425.4/ I42.9.Patient Status: RoutineHeight: 65 | | | inchesWeight: 152 poundsBSA: 1.76 m^2BMI: 25.29 kg/m^2Rhythm: Sinus | | | tachycardiaHR: 122 bpmBP: 99/72 mmHg ConclusionsSummary1. Small | | | hyperdynamic LV. LV ejection fraction is visually estimated at | | | >70%with cavity obliteration.2. Normal right ventricular size and | | | function.3. No obvious clinically significant valvular dysfunction | | | detected.4. Unable to estimate PA systolic pressure due to inadequate | | | TR signal. Comment: Compared to the prior study dated April 2017, | | | LV systolicfunction is now hyperdynamic. Hypovolemia is a clinical | | | consideration. | | | Signature | | | | | | AM | | | -------- FindingsMitral ValveThe mitral valve is grossly normal.No | | | evidence of mitral regurgitation.Aortic ValveThe aortic valve is not | | | well visualized. Doppler assessment of aorticstenosis is | | | challenging.Tricuspid ValveThe tricuspid valve is not well-visualized. | | | Unable to estimate PA systolicpressure due to inadequate TR | | | signal.Pulmonic ValveThe pulmonic valve is not well-visualized.Left | | | AtriumNormal size left atrium.Left VentricleSmall hyperdynamic LV - | | | hypovolemia is a clinical consideration.LV ejection fraction is | | | visually estimated at >70% with cavity obliteration.Small LVOT | | | gradient noted and cannot exclude small intracavitary | | | gradient.Technically inadequate study for wall motion assessment; | | | however, no grossregional abnormalities identified.LV wall thickness | | | is difficult to assess. LV diastolic function isindeterminate.Right | | | AtriumNormal right atrial size.Right VentricleNormal right ventricular | | | size and function.TAPSE = 1.5 cm.Pericardial EffusionNo evidence of | | | pericardial effusion. MiscellaneousThe IVC appears small and | | | collapsed. The aortic root is not well visualized. Valves Mitral | | | Valve Peak E-Wave: 0.47 m/s Peak A-Wave: 0.73 m/s Tissue Doppler | | | Septal e' Velocity: 0.05 m/s Lateral e' Velocity: 0.06 m/s | | | Aortic Valve Peak Velocity: 2.32 m/s Peak Gradient: 21.53 mmHg LVOT | | | Peak Velocity: 1.62 m/s Structures Left Atrium Left Ventricle EF | | | [id number]% | | | Electronically signed by Mara Patton MD(Interpreting physician) on | | | 08/18/2017 11:38 AM | | | | | | | | |Findings | | |Mitral Valve | | |The mitral valve is grossly normal. | | |No evidence of mitral regurgitation. | | |Aortic Valve | | |The aortic valve is not well visualized. Doppler assessment of aortic | | |stenosis is challenging. | | |Tricuspid Valve | | |The tricuspid valve is not well-visualized. Unable to estimate PA systolic | | |pressure due to inadequate TR signal. | | |Pulmonic Valve | | |The pulmonic valve is not well-visualized. | | |Left Atrium | | |Normal size left atrium. | | |Left Ventricle | | |Small hyperdynamic LV - hypovolemia is a clinical consideration. | | |LV ejection fraction is visually estimated at >70% with cavity obliteration. | | |Small LVOT gradient noted and cannot exclude small intracavitary gradient. | | |Technically inadequate study for wall motion assessment; however, no gross | | |regional abnormalities identified. | | |LV wall thickness is difficult to assess. LV diastolic function is | | |indeterminate. | | |Right Atrium | | |Normal right atrial size. | | |Right Ventricle | | |Normal right ventricular size and function. | | |TAPSE = 1.5 cm. | | |Pericardial Effusion | | |No evidence of pericardial effusion. | | | | | |Miscellaneous | | |The IVC appears small and collapsed. The aortic root is not well visualized. | | | | | |Valves | | | | | | Mitral Valve | | | | | | Peak E-Wave: 0.47 m/s | | | Peak A-Wave: 0.73 m/s | | | | | | Tissue Doppler | | | | | | Septal e' Velocity: 0.05 m/s Lateral e' Velocity: 0.06 m/s | | | | | | Aortic Valve | | | | | | Peak Velocity: 2.32 m/s | | | Peak Gradient: 21.53 mmHg | | | | | | LVOT | | | | | | Peak Velocity: 1.62 m/s | | | | | |Structures | | | | | | Left Atrium | | | | | | Left Ventricle | | | | | | EF [id number]% | | | | | + + --+ + + | Procedure Note | + + | Daniel You In - 08/18/2017 11:38 AM PDT Transthoracic Echocardiography Report | | (TTE) Demographics Patient Name MARCELLA MONTAÑO I Room Number 258 Patient | | Number [id number] Date of Study 08/18/2017 Visit Number [id number] | | Referring Physician BRI Sánchez Date of | | 1955 [employer] Julien Zamora Age 62 year(s) | | Interpreting [facility]in Inspector | | Mara Patton MD Gender | | Female Nurse Stress TechnicianProcedureType of | | Study TTE procedure: ECHO Complete, Add-on Items, COLOR DOPPLER, COMPLETE | | DOPPLER.Procedure dateDate: 08/18/2017Start: 07:21 AMTechnical Quality: Adequate | | visualization[facility] 425.4/ I42.9.Patient | | Status: RoutineHeight: 65 inchesWeight: 152 poundsBSA: 1.76 m^2BMI: 25.29 kg/m^2Rhythm: | | Sinus tachycardiaHR: 122 bpmBP: 99/72 mmHgConclusionsSummary1. Small hyperdynamic LV. LV | | ejection fraction is visually estimated at >70%with cavity obliteration.2. Normal right | | ventricular size and function.3. No obvious clinically significant valvular dysfunction | | detected.4. Unable to estimate PA systolic pressure due to inadequate TR | | signal.Comment: Compared to the prior study dated April 2017, LV systolicfunction is | | now hyperdynamic. Hypovolemia is a clinical | | consideration.Signature | | Electronically signed by Mara Patton MD(Interpreting physician) on | | 08/18/2017 11:38 | | AM FindingsMi | | tral ValveThe mitral valve is grossly normal.No evidence of mitral regurgitation.Aortic | | ValveThe aortic valve is not well visualized. Doppler assessment of aorticstenosis is | | challenging.Tricuspid ValveThe tricuspid valve is not well-visualized. Unable to | | estimate PA systolicpressure due to inadequate TR signal.Pulmonic ValveThe pulmonic | | valve is not well-visualized.Left AtriumNormal size left atrium.Left VentricleSmall | | hyperdynamic LV - hypovolemia is a clinical consideration.LV ejection fraction is | | visually estimated at >70% with cavity obliteration.Small LVOT gradient noted and cannot | | exclude small intracavitary gradient.Technically inadequate study for wall motion | | assessment; however, no grossregional abnormalities identified.LV wall thickness is | | difficult to assess. LV diastolic function isindeterminate.Right AtriumNormal right | | atrial size.Right VentricleNormal right ventricular size and function.TAPSE = 1.5 | | cm.Pericardial EffusionNo evidence of pericardial effusion.MiscellaneousThe IVC appears | | small and collapsed. The aortic root is not well visualized.Valves Mitral Valve Peak | | E-Wave: 0.47 m/s Peak A-Wave: 0.73 m/s Tissue Doppler Septal e' Velocity: 0.05 m/s | | Lateral e' Velocity: 0.06 m/s Aortic Valve Peak Velocity: 2.32 m/s Peak Gradient: | | 21.53 mmHg LVOT Peak Velocity: 1.62 m/sStructures Left Atrium Left Ventricle EF | | [id number]% | |Conclusions | |Summary | |1. Small hyperdynamic LV. LV ejection fraction is visually estimated at >70% | |with cavity obliteration. | |2. Normal right ventricular size and function. | |3. No obvious clinically significant valvular dysfunction detected. | |4. Unable to estimate PA systolic pressure due to inadequate TR signal. | | | |Comment: Compared to the prior study dated April 2017, LV systolic | |function is now hyperdynamic. Hypovolemia is a clinical consideration. | | | |Signature | | | | Electronically signed by Mara Patton MD(Interpreting physician) on | | 08/18/2017 11:38 AM | | | | | |Findings | |Mitral Valve | |The mitral valve is grossly normal. | |No evidence of mitral regurgitation. | |Aortic Valve | |The aortic valve is not well visualized. Doppler assessment of aortic | |stenosis is challenging. | |Tricuspid Valve | |The tricuspid valve is not well-visualized. Unable to estimate PA systolic | |pressure due to inadequate TR signal. | |Pulmonic Valve | |The pulmonic valve is not well-visualized. | |Left Atrium | |Normal size left atrium. | |Left Ventricle | |Small hyperdynamic LV - hypovolemia is a clinical consideration. | |LV ejection fraction is visually estimated at >70% with cavity obliteration. | |Small LVOT gradient noted and cannot exclude small intracavitary gradient. | |Technically inadequate study for wall motion assessment; however, no gross | |regional abnormalities identified. | |LV wall thickness is difficult to assess. LV diastolic function is | |indeterminate. | |Right Atrium | |Normal right atrial size. | |Right Ventricle | |Normal right ventricular size and function. | |TAPSE = 1.5 cm. | |Pericardial Effusion | |No evidence of pericardial effusion. | | | |Miscellaneous | |The IVC appears small and collapsed. The aortic root is not well visualized. | | | |Valves | | | | Mitral Valve | | | | Peak E-Wave: 0.47 m/s | | Peak A-Wave: 0.73 m/s | | | | Tissue Doppler | | | | Septal e' Velocity: 0.05 m/s Lateral e' Velocity: 0.06 m/s | | | | Aortic Valve | | | | Peak Velocity: 2.32 m/s | | Peak Gradient: 21.53 mmHg | | | | LVOT | | | | Peak Velocity: 1.62 m/s | | | |Structures | | | | Left Atrium | | | | Left Ventricle | | | | EF [id number]% | + + + +---------+ + + | Performing | Address | City/State/Zipcode | Phone Number | | Organization | | | | + +---------+ + + | [facility] | | | | + +---------+ + + Lactic Acid, Arterial, Respiratory (08/18/2017 5:27 AM PDT) + + + + + + | Component | Value | Ref Range | Performed | Pathologist | | | | | At | Signature | + + + + + + | Lactate, | 2.0 (H)Comment: | 0.5 - 1.6 | [facility] | | | Arterial | Performed by [facility] [address] | mmol/L | [facility] | | | | [address] [place] | | HEART | | | | [address] | | MEDICAL | | | | | | CENTER | | | | | | LABORATORY | | | | | | [place] | | + + + + + + + + | Specimen | + + | Blood specimen | | (specimen) | + + + + + + + | Performing | Address | City/State/Zipcode | Phone Number | | Organization | | | | + + + + + | [facility] | [address] | [place] [address] | | | HEART [facility] | | | | | [place] | | | | + + + + + Calcium, Ionized, Respiratory (08/18/2017 5:27 AM PDT) + + + + ---+ + | Component | Value | Ref Range | Performed | Pathologist | | | | | At | Signature | + + + + ---+ + | Calcium, | 4.87 | 4.75 - 5.30 | [facility] | | | Ionized | | mg/dL | [facility] | | | | | | HEART | | | | | | MEDICAL | | | | | | CENTER | | | | | | LABORATOR Y | | | | | | [place] | | + + + + ---+ + | Calcium, pH | 4.83Comment: Performed | 4.75 - 5.30 | [facility] | | | Normalized | by [facility] [address], | mg/dL | [facility] | | | | [place] [address] | | HEART | | | |Performed by [facility] [address], [place] [address] | | MEDICAL | | | | | | CENTER | | | | | | LABORATOR Y | | | | | | [place] | | + + + + ---+ + + + | Specimen | + + | Blood specimen | | (specimen) | + + + + + + + | Performing | Address | City/State/Zipcode | Phone Number | | Organization | | | | + + + + + | [facility] | [address] | [place] [address] | | | HEART [facility] | | | | | LABORATORY [place] | | | | + + + + + Glucose, Respiratory (08/18/2017 5:27 AM PDT) + + + + + + | Component | Value | Ref Range | Performed | Pathologist | | | | | At | Signature | + + + + + + | Glucose | 118 (H)Comment: | 65 - 99 mg/dL | [facility] | | | | Performed by [facility] [address] | | [facility]CR[facility] | | | | [place] | | HEART | | | | [address] | | MEDICAL | | | | | | CENTER | | | | | | LABORATORY | | | | | | [place] | | + + + + + + + + | Specimen | + + | Blood specimen | | (specimen) | + + + + + + + | Performing | Address | City/State/Zipcode | Phone Number | | Organization | | | | + + + + + | [facility] | [address] | [place] [address] | | | [facility] | | | | | [place] | | | | + + + + + Blood Gas, Arterial (08/18/2017 5:27 AM PDT) + + + +--------- ----+ + | Component | Value | Ref Range | Performe d | Pathologist | | | | | At | Signature | + + + +--------- ----+ + | pH, | 7.39 | 7.37 - 7.47 | [facility] | | | Arterial | | | [facility] | | | | | | HEART | | | | | | MEDICAL | | | | | | CENTER | | | | | | LABORATO RY | | | | | | [place] | | + + + +--------- ----+ + | pCO2, | 32 | 32 - 43 mmHg | [facility] | | | Arterial | | | [facility] | | | | | | HEART | | | | | | MEDICAL | | | | | | CENTER | | | | | | LABORATO RY | | | | | | [place] | | + + + +--------- ----+ + | pO2, | 108 (H) | 65 - 80 mmHg | [facility] | | | Arterial | | | [facility] | | | | | | HEART | | | | | | MEDICAL | | | | | | CENTER | | | | | | LABORATO RY | | | | | | [place] | | + + + +--------- ----+ + | Base | -5.6 (L) | -2.5 - 2.5 | [facility] | | | Excess, | | mmol/L | [facility] | | | Arterial | | | HEART | | | | | | MEDICAL | | | | | | CENTER | | | | | | LABORATO RY | | | | | | [place] | | + + + +--------- ----+ + | HCO3, | 19.4 (L) | 23.0 - 28.0 | [facility] | | | Arterial | | mmol/L | [facility] | | | | | | HEART | | | | | | MEDICAL | | | | | | CENTER | | | | | | LABORATO RY | | | | | | [place] | | + + + +--------- ----+ + | FiO2 | 40% | | [facility] | | | | | | [facility] | | | | | | HEART | | | | | | MEDICAL | | | | | | CENTER | | | | | | LABORATO RY | | | | | | [place] | | + + + +--------- ----+ + | ROUTE | SIMV | | [facility] | | | | | | [facility] | | | | | | HEART | | | | | | MEDICAL | | | | | | CENTER | | | | | | LABORATO RY | | | | | | [place] | | + + + +--------- ----+ + | Rate | 18 | | [facility] | | | | | | [facility]CR[facility] | | | | | | HEART | | | | | | MEDICAL | | | | | | CENTER | | | | | | LABORATO RY | | | | | | [place] | | + + + +--------- ----+ + | VT | 400 | | [facility] | | | | | | [facility] | | | | | | HEART | | | | | | MEDICAL | | | | | | CENTER | | | | | | LABORATO RY | | | | | | [place] | | + + + +--------- ----+ + | PEEP | 8 | | [facility] | | | | | | [facility] | | | | | | HEART | | | | | | MEDICAL | | | | | | CENTER | | | | | | LABORATO RY | | | | | | [place] | | + + + +--------- ----+ + | Methemoglob | 0.6 | 0.4 - 1.5 % | [facility] | | | in, Venous | | | [facility] | | | | | | HEART | | | | | | MEDICAL | | | | | | CENTER | | | | | | LABORATO RY | | | | | | [place] | | + + + +--------- ----+ + | Comment | Ox97% EtCO2 24 | | [facility] | | | | | | [facility] | | | | | | HEART | | | | | | MEDICAL | | | | | | CENTER | | | | | | LABORATO RY | | | | | | [place] | | + + + +--------- ----+ + | Oxygen | 16.2 | 15.0 - 23.0 % | [facility] | | | Content, | | | [facility] | | | Arterial | | | HEART | | | | | | MEDICAL | | | | | | CENTER | | | | | | LABORATO RY | | | | | | [place] | | + + + +--------- ----+ + | Hct | 35.8 | 34.0 - 46.0 % | [facility] | | | | | | [facility] | | | | | | HEART | | | | | | MEDICAL | | | | | | CENTER | | | | | | LABORATO RY | | | | | | [place] | | + + + +--------- ----+ + | Carboxyhemo | 0.7 (L) | 1.0 - 3.0 % | [facility] | | | globin | | | [facility] | | | | | | HEART | | | | | | MEDICAL | | | | | | CENTER | | | | | | LABORATO RY | | | | | | [place] | | + + + +--------- ----+ + | Hemoglobin | 11.7 | 11.3 - 15.5 | [facility] | | | | | g/dL | [facility] | | | | | | HEART | | | | | | MEDICAL | | | | | | CENTER | | | | | | LABORATO RY | | | | | | [place] | | + + + +--------- ----+ + | O2SAT COOX | 97.5Comment: Performed | 92.0 - 99.0 % | [facility] | | | ARTERIAL | by [facility] [address], | | SACRED | | | | [place] [address] | | HEART | | | |Performed by [facility] [address], [place] [address] | | MEDICAL | | | | | | CENTER | | | | | | LABORATO RY | | | | | | [place] | | + + + +--------- ----+ + + + | Specimen | + + | Blood specimen | | (specimen) | + + + + + + + | Performing | Address | City/State/Zipcode | Phone Number | | Organization | | | | + + + + + | [facility] | [address] | [place] [address] | | | HEART [facility] | | | | | LABORATORY [place] | | | | + + + + + CBC no Differential (08/18/2017 5:23 AM PDT) + + + +-------- -----+ + | Component | Value | Ref Range | Perform ed | Pathologist | | | | | At | Signature | + + + +-------- -----+ + | WBC | 19.6 (H) | 3.8 - 11.0 K/uL | [facility] | | | | | | [facility] | | | | | | HEART | | | | | | MEDICAL | | | | | | CENTER | | | | | | [place] | | | | | | [place] | | + + + +-------- -----+ + | RBC | 3.71 | 3.70 - 5.10 | [facility] | | | | | M/uL | [facility] | | | | | | HEART | | | | | | MEDICAL | | | | | | CENTER | | | | | | LABORAT ORY | | | | | | [place] | | + + + +-------- -----+ + | Hemoglobin | 11.4 | 11.3 - 15.5 | [facility] | | | | | g/dL | [facility] | | | | | | HEART | | | | | | MEDICAL | | | | | | CENTER | | | | | | LABORAT ORY | | | | | | [place] | | + + + +-------- -----+ + | Hct | 32.5 (L) | 34.0 - 46.0 % | [facility] | | | | | | [facility] | | | | | | HEART | | | | | | MEDICAL | | | | | | CENTER | | | | | | LABORAT ORY | | | | | | [place] | | + + + +-------- -----+ + | MCV | 87.7 | 80.0 - 100.0 fL | [facility] | | | | | | [facility] | | | | | | HEART | | | | | | MEDICAL | | | | | | CENTER | | | | | | LABORAT ORY | | | | | | [place] | | + + + +-------- -----+ + | MCH | 30.8 | 27.0 - 34.0 pg | [facility] | | | | | | [facility] | | | | | | HEART | | | | | | MEDICAL | | | | | | CENTER | | | | | | LABORAT ORY | | | | | | [place] | | + + + +-------- -----+ + | MCHC | 35.2 | 32.0 - 35.5 | [facility] | | | | | g/dL | [facility] | | | | | | HEART | | | | | | MEDICAL | | | | | | CENTER | | | | | | LABORAT ORY | | | | | | [place] | | + + + +-------- -----+ + | RDW-CV | 14.8 | 11.0 - 15.5 % | [facility] | | | | | | [facility] | | | | | | HEART | | | | | | MEDICAL | | | | | | CENTER | | | | | | LABORAT ORY | | | | | | [place] | | + + + +-------- -----+ + | Platelet | 159 | 150 - 400 K/uL | [facility] | | | Count | | | [facility] | | | | | | HEART | | | | | | MEDICAL | | | | | | CENTER | | | | | | LABORAT ORY | | | | | | [place] | | + + + +-------- -----+ + | MPV | 8.6Comment: Performed | 7.5 - 11.2 fL | [facility] | | | | by [facility] [address], | | SACRED | | | | [place] [address] | | HEART | | | |Performed by [facility] [address], [place] [address] | | MEDICAL | | | | | | CENTER | | | | | | LABORAT ORY | | | | | | [place] | | + + + +-------- -----+ + + + | Specimen | + + | Blood specimen | | (specimen) | + + + + + + + | Performing | Address | City/State/Zipcode | Phone Number | | Organization | | | | + + + + + | [facility] | [address] | [place] [address] | | | [facility] | | | | | LABORATORY [place] | | | | + + + + + Procalcitonin (08/18/2017 5:23 AM PDT) + + + + + + | Component | Value | Ref Range | Performed | Pathologist | | | | | At | Signature | + + + + + + | Procalciton | 1.33 (H)Comment: | 0.00 - 0.09 | [facility] | | | in | STRONGL[facility] ENCOURAGE using | ng/mL | [facility] | | | | antibiotics in patient | | HEART | | | | with suspicion of | | MEDICAL | | | | respiratory | | CENTER | | | | infection.Performed by | | LABORATORY | | | | [facility] [address], | | [place] | | | | [place] [address] | | | | + + + + + + + + | Specimen | + + | Blood specimen | | (specimen) | + + + + + + + | Performing | Address | City/State/Zipcode | Phone Number | | Organization | | | | + + + + + | [facility] | [address] | [place] [address] | | | [facility] | | | | | [place] | | | | + + + + + Phosphorus (08/18/2017 5:23 AM PDT) + + + +-------- -----+ + | Component | Value | Ref Range | Perform ed | Pathologist | | | | | At | Signature | + + + +-------- -----+ + | Phosphorus | 4.1Comment: Performed | 2.6 - 4.4 mg/dL | [facility] | | | | by [place] [address], | | SACRED | | | | [place] [address] | | HEART | | | |Performed by [facility] [address], [place] [address] | | MEDICAL | | | | | | CENTER | | | | | | LABORAT ORY | | | | | | [place] | | + + + +-------- -----+ + + + | Specimen | + + | Blood specimen | | (specimen) | + + + + + + + | Performing | Address | City/State/Zipcode | Phone Number | | Organization | | | | + + + + + | [facility] | [address] | [place] [address] | | | [facility] | | | | | LABORATORY [place] | | | | + + + + + Magnesium (08/18/2017 5:23 AM PDT) + + + +--------- ----+ + | Component | Value | Ref Range | Performe d | Pathologist | | | | | At | Signature | + + + +--------- ----+ + | Magnesium | 2.4Comment: Performed | 1.7 - 2.4 mg/dL | [facility] | | | | by [facility] [address], | | SACRED | | | | [place] [address] | | HEART | | | |Performed by [facility] [address], [place] [address] | | MEDICAL | | | | | | CENTER | | | | | | LABORATO RY | | | | | | [place] | | + + + +--------- ----+ + + + | Specimen | + + | Blood specimen | | (specimen) | + + + + + + + | Performing | Address | City/State/Zipcode | Phone Number | | Organization | | | | + + + + + | [facility] | [address] | [place] [address] | | | [facility] | | | | | LABORATORY [place] | | | | + + + + + Basic Metabolic Panel (08/18/2017 5:23 AM PDT) + + + + + + | Component | Value | Ref Range | Performed | Pathologist | | | | | At | Signature | + + + + + + | Na | 140 | 135 - 145 | [facility] | | | | | mmol/L | [facility] | | | | | | HEART | | | | | | MEDICAL | | | | | | CENTER | | | | | | LABORATORY | | | | | | [place] | | + + + + + + | K | 3.8 | 3.5 - 5.0 | [facility] | | | | | mmol/L | [facility] | | | | | | HEART | | | | | | MEDICAL | | | | | | CENTER | | | | | | LABORATORY | | | | | | [place] | | + + + + + + | Cl | 109 | 99 - 109 mmol/L | [facility] | | | | | | [facility] | | | | | | HEART | | | | | | MEDICAL | | | | | | CENTER | | | | | | LABORATORY | | | | | | [place] | | + + + + + + | CO2 | 20 (L) | 21 - 28 mmol/L | [facility] | | | | | | [facility] | | | | | | HEART | | | | | | MEDICAL | | | | | | CENTER | | | | | | LABORATORY | | | | | | [place] | | + + + + + + | Anion Gap | 11 | 5 - 16 mmol/L | [facility] | | | | | | [facility] | | | | | | HEART | | | | | | MEDICAL | | | | | | CENTER | | | | | | LABORATORY | | | | | | [place] | | + + + + + + | Calcium | 8.5 | 8.5 - 10.2 | [facility] | | | | | mg/dL | [facility] | | | | | | HEART | | | | | | MEDICAL | | | | | | CENTER | | | | | | LABORATORY | | | | | | [place] | | + + + + + + | BUN | 11 | 8 - 25 mg/dL | [facility] | | | | | | [facility] | | | | | | HEART | | | | | | MEDICAL | | | | | | CENTER | | | | | | LABORATORY | | | | | | [place] | | + + + + + + | Creatinine | 0.62 | 0.50 - 1.00 | [facility] | | | | | mg/dL | [facility] | | | | | | HEART | | | | | | MEDICAL | | | | | | CENTER | | | | | | LABORATORY | | | | | | [place] | | + + + + + + | Glucose | 120 (H) | 65 - 99 mg/dL | [facility] | | | | | | [facility] | | | | | | HEART | | | | | | MEDICAL | | | | | | CENTER | | | | | | LABORATORY | | | | | | [place] | | + + + + + + | Estimated | 96Comment: eGFR<60 | >=90 | [facility] | | | GFR | consistent with impaired | mL/min/1.73m2 | [facility] | | | | kidney | | HEART | | | | function.Performed by | | MEDICAL | | | | [facility] [address], | | CENTER | | | | [place] [address] | | LABORATORY | | | | | | [place] | | + + + + + + + + | Specimen | + + | Blood specimen | | (specimen) | + + + + + + + | Performing | Address | City/State/Zipcode | Phone Number | | Organization | | | | + + + + + | [facility] | [address] | [place] [address] | | | [facility] | | | | | [place] | | | | + + + + + XR Chest AP Portable (08/18/2017 4:59 AM PDT) + + | Specimen | + + | | + + + + + | Narrative | Performed At | + + + | CHEST PORTABLE ONE VIEW CLINICAL INFORMATION: Respiratory | [facility] | | failure. COMPARISON: IR PROCEDURE dated 08/18/2017 | | | FINDINGS/IMPRESSION: 1. Endotracheal tube is positioned 17 mm above | | | the luis alberto. A left-sided PICC line terminates in the distal SVC. | | | Orogastric tube extends into the stomach. 2. Lung volumes are low. | | | No focal consolidation or large pleural effusions. 3. | | | Cardiomediastinal contours are normal. 4. No pneumothorax. | | | Signed by: MD Maxx, Cris | | + + + + + | Procedure Note | + + | Avelino, Rad Results In - 08/18/2017 5:06 AM PDT | | CHEST PORTABLE ONE VIEW | | | | CLINICAL INFORMATION: | | Respiratory failure. | | | | COMPARISON: | | IR PROCEDURE dated 08/18/2017 | | | | FINDINGS/IMPRESSION: | | 1. Endotracheal tube is positioned 17 mm above the luis alberto. A | | left-sided PICC line terminates in the distal SVC. Orogastric tube | | extends into the stomach. | | 2. Lung volumes are low. No focal consolidation or large pleural | | effusions. | | 3. Cardiomediastinal contours are normal. | | 4. No pneumothorax. | | | | | | | | Signed by: MD Maxx, Cris | + + + +---------+ + + | Performing | Address | City/State/Zipcode | Phone Number | | Organization | | | | + +---------+ + + | [facility] | | | | + +---------+ + + Sodium, Urine, Random (08/18/2017 4:22 AM PDT) + + + + ---+ + | Component | Value | Ref Range | Performed | Pathologist | | | | | At | Signature | + + + + ---+ + | U SODIUM | 18Comment: Performed by | 0 - 259 mmol/L | [facility] | | | | [facility] [address], | | [address] | | | | [place] [address] | | HEART | | | |Performed by [facility] [address], [place], [place] [id number] | | MEDICAL | | | | | | CENTER | | | | | | LABORATOR Y | | | | | | [facility] | | + + + + ---+ + + + | Specimen | + + | Urine specimen | | (specimen) - Urine | | specimen obtained by | | single | | catheterization of | | bladder (specimen) | + + + + + + + | Performing | Address | City/State/Zipcode | Phone Number | | Organization | | | | + + + + + | [facility] | [address] | [place] [address] | | | [facility] | | | | | LABORATORY [facility] | | | | + + + + + Urinalysis with Microscopic with Culture if Indicated (08/18/2017 4:22 AM PDT) + + + + + + | Component | Value | Ref Range | Performed | Pathologist | | | | | At | Signature | + + + + + + | CULTURE | No | | [facility] | | | [facility] | | | | | [facility] | | | | | | MEDICAL | | | | | | CENTER | | | | | | LABORATORY | | | | | | [place] | | + + + + + + | Color | Light Yellow | | [facility] | | | | | [facility] | | | | | | HEART | | | | | | MEDICAL | | | | | | CENTER | | | | | | LABORATORY | | | | | | [facility] | | + + + + + + | Clarity | Clear | | [facility] | | | | | [facility] | | | | | | HE[facility] | | | | | | MEDICAL | | | | | | CENTER | | | | | | LABORATORY | | | | | | [facility] | | + + + + + + | Glucose, | Negative | Negative | [facility] | | | Urine | | | [facility] | | | | | | HEART | | | | | | MEDICAL | | | | | | CENTER | | | | | | LABORATORY | | | | | | [facility] | | + + + + + + | Ketones, | Negative | Negative | [facility] | | | Urine | | | [facility] | | | | | | HEART | | | | | | MEDICAL | | | | | | CENTER | | | | | | LABORATORY | | | | | | [facility] | | + + + + + + | Bilirubin, | Negative | Negative | [facility] | | | Urine | | | [facility] | | | | | | HEART | | | | | | MEDICAL | | | | | | CENTER | | | | | | LABORATORY | | | | | | [facility] | | + + + + + + | Urobilinoge | <2.0 | <2.0 mg/dL | [facility] | | | n, Urine | | | [facility] | | | | | | HEART | | | | | | MEDICAL | | | | | | CENTER | | | | | | LABORATORY | | | | | | [facility] | | + + + + + + | Specific | >1.060 (H) | 1.001 - 1.030 | [facility] | | | Dunlap | | | [facility] | | | | | | HEART | | | | | | MEDICAL | | | | | | CENTER | | | | | | LABORATORY | | | | | | [facility] | | + + + + + + | pH, Urine | 6.0 | 5.0 - 7.5 | [facility] | | | | | | [facility] | | | | | | HEART | | | | | | MEDICAL | | | | | | CENTER | | | | | | LABORATORY | | | | | | [facility] | | + + + + + + | Protein, | Negative | Negative | [facility] | | | Urine | | | [facility] | | | | | | HEART | | | | | | MEDICAL | | | | | | CENTER | | | | | | LABORATORY | | | | | | [facility] | | + + + + + + | Nitrite, | Negative | Negative | [facility] | | | Urine | | | [facility] | | | | | | HEART | | | | | | MEDICAL | | | | | | CENTER | | | | | | LABORATORY | | | | | | [facility] | | + + + + + + | Blood, | Small (A) | Negative | [facility] | | | Urine | | | [facility] | | | | | | HEART | | | | | | MEDICAL | | | | | | CENTER | | | | | | LABORATORY | | | | | | [facility] | | + + + + + + | Leukocyte | Negative | Negative | [facility] | | | Esterase, | | | [facility]CR[facility] | | | Urine | | | HEART | | | | | | MEDICAL | | | | | | CENTER | | | | | | LABORATORY | | | | | | [facility] | | + + + + + + | SQUAMOUS | Not Clinically | | [facility] | | | EPITHELIAL | Significant | | [facility] | | | UA | | | HEART | | | | | | MEDICAL | | | | | | CENTER | | | | | | LABORATORY | | | | | | [facility] | | + + + + + + | WBC UA | 1 | 0 - 5 /hpf | [facility] | | | | | [facility] | | | | | | HEART | | | | | | MEDICAL | | | | | | CENTER | | | | | | LABORATORY | | | | | | [facility] | | + + + + + + | RBC UA | 3 | 0 - 5 | [facility] | | | | | | [facility] | | | | | | HEART | | | | | | MEDICAL | | | | | | CENTER | | | | | | LABORATORY | | | | | | [facility] | | + + + + + + | BACTERIA UA | None Seen | | [facility] | | | | | | [facility] | | | | | | HEART | | | | | | MEDICAL | | | | | | CENTER | | | | | | LABORATORY | | | | | | [facility] | | + + + + + + | AMORPHOUS | None Present | | [facility] | | | CRYSTALS | | | [facility]CR[facility] | | | | | | HEART | | | | | | MEDICAL | | | | | | CENTER | | | | | | LABORATORY | | | | | | [facility] | | + + + + + + | MUCUS UA | Present | | [facility] | | | | | | [facility] | | | | | | HEART | | | | | | MEDICAL | | | | | | CENTER | | | | | | LABORATORY | | | | | | [facility] | | + + + + + + | URINE | Moy CathComment: | | [facility] | | | SOURCE | Performed by [facility] [address] | | SACRED | | | | [address] [place] | | HEART | | | | [id number] | | MEDICAL | | | | | | CENTER | | | | | | LABORATORY | | | | | | [facility] | | + + + + + + + + | Specimen | + + | Urine specimen | | (specimen) - Urine | | specimen obtained by | | single | | catheterization of | | bladder (specimen) | + + + + + + + | Performing | Address | City/State/Zipcode | Phone Number | | Organization | | | | + + + + + | [facility] | [address] | [place] [address] | | | [facility] | | | | | LABORATORY [facility] | | | | + + + + + CBC no Differential (08/18/2017 2:09 AM PDT) + + + +-------- -----+ + | Component | Value | Ref Range | Perform ed | Pathologist | | | | | At | Signature | + + + +-------- -----+ + | WBC | 19.0 (H) | 3.8 - 11.0 K/uL | [facility] | | | | | | [facility] | | | | | | HEART | | | | | | MEDICAL | | | | | | CENTER | | | | | | LABORAT ORY | | | | | | [facility] | | + + + +-------- -----+ + | RBC | 3.83 | 3.70 - 5.10 | [facility] | | | | | M/uL | [facility] | | | | | | HEART | | | | | | MEDICAL | | | | | | CENTER | | | | | | LABORAT ORY | | | | | | [facility] | | + + + +-------- -----+ + | Hemoglobin | 11.6 | 11.3 - 15.5 | [facility] | | | | | g/dL | [facility] | | | | | | HEART | | | | | | MEDICAL | | | | | | CENTER | | | | | | LABORAT ORY | | | | | | [facility] | | + + + +-------- -----+ + | Hct | 33.4 (L) | 34.0 - 46.0 % | [facility] | | | | | | [facility] | | | | | | HEART | | | | | | MEDICAL | | | | | | CENTER | | | | | | LABORAT ORY | | | | | | C[facility] | | + + + +-------- -----+ + | MCV | 87.4 | 80.0 - 100.0 fL | [facility] | | | | | | [facility] | | | | | | HEART | | | | | | MEDICAL | | | | | | CENTER | | | | | | LABORAT ORY | | | | | | [facility] | | + + + +-------- -----+ + | MCH | 30.3 | 27.0 - 34.0 pg | [facility] | | | | | | [facility]CR[facility] | | | | | | HEART | | | | | | MEDICAL | | | | | | CENTER | | | | | | LABORAT ORY | | | | | | [facility] | | + + + +-------- -----+ + | MCHC | 34.7 | 32.0 - 35.5 | [facility] | | | | | g/dL | [facility]CR[facility] | | | | | | HEART | | | | | | MEDICAL | | | | | | CENTER | | | | | | LABORAT ORY | | | | | | [facility] | | + + + +-------- -----+ + | RDW-CV | 14.7 | 11.0 - 15.5 % | [facility] | | | | | | [facility] | | | | | | HEART | | | | | | MEDICAL | | | | | | CENTER | | | | | | LABORAT ORY | | | | | | [facility] | | + + + +-------- -----+ + | Platelet | 147 (L) | 150 - 400 K/uL | [facility] | | | Count | | | [facility]CR[facility] | | | | | | HEART | | | | | | MEDICAL | | | | | | CENTER | | | | | | LABORAT ORY | | | | | | C[facility] | | + + + +-------- -----+ + | MPV | 7.8Comment: Performed | 7.5 - 11.2 fL | [facility] | | | | by [facility] [address], | | SACRED | | | | [place] [address] | | HEART | | | |Performed by [facility] [address], [place] [address] | | MEDICAL | | | | | | CENTER | | | | | | LABORAT ORY | | | | | | CERNER | | + + + +-------- -----+ + + + | Specimen | + + | Blood specimen | | (specimen) | + + + + + + + | Performing | Address | City/State/Zipcode | Phone Number | | Organization | | | | + + + + + | [facility] | [address] | [place] [address] | | | [facility] | | | | | LABORATORY [facility] | | | | + + + + + MRSA NAAT (08/18/2017 2:09 AM PDT) + + + + +- + | Component | Value | Ref Range | Performed | Pathologist | | | | | At | Signature | + + + + +- + | MRSA DNA | Negative | | [facility] | | | | | | [facility] | | | | | | HEART | | | | | | MEDICAL | | | | | | CENTER | | | | | | LABORATORY | | | | | | [facility] | | + + + + +- + | Specimen | NasalComment: Performed | | [facility] | | | Source | by [facility] [address], | | SACRED | | | | [place] [address] | | HEART | | | |Performed by [facility] [address], [place] [address] | | MEDICAL | | | | | | CENTER | | | | | | LABORATORY | | | | | | CERNER | | + + + + +- + + + | Specimen | + + | Soft tissue sample | | (specimen) - Both | | anterior nares (body | | structure) | + + + + + + + | Performing | Address | City/State/Zipcode | Phone Number | | Organization | | | | + + + + + | [facility] | [address] | [place] [address] | | | [facility] | | | | | [facility] | | | | + + + + + IR Procedure (08/18/2017 1:09 AM PDT) + + | Specimen | + + | | + + + + + | Narrative | Performed At | + + + | 1. ULTRASOUND-GUIDED PUNCTURE OF RIGHT COMMON FEMORAL ARTERY 2. | [facility] | | LIMITED SUPERIOR MESENTERIC ARTERIOGRAPHY 3. ARTERIOGRAPHY VIA | | | REPLACED HEPATIC ARTERY 4. SUB SELECTION OF RIGHT GASTRIC ARTERY AND | | | ARTERIOGRAPHY 5. CELIAC ARTERIOGRAPHY 6. LIMITED ARTERIOGRAPHY OVER | | | THE RIGHT GROIN AND MECHANICAL CLOSURE OF RIGHT GROIN PUNCTURE SITE | | | CLINICAL INFORMATION: Extensive intra-abdominal bleeding. CTA | | | demonstrates active extravasation and abnormal appearance of a branch | | | of the replaced hepatic artery. COMPARISON: ABD/PELVIS WITH | | | CONTRAST dated 08/17/2017 PROCEDURE: Attempts were made at | | | contacting the patient's next of kin. However, this was | | | unsuccessful. Therefore, the procedure was performed on a medical | | | necessity basis. The right groin was evaluated with ultrasound | | | demonstrating patency of the common femoral artery. An ultrasound | | | image was obtained for permanent record. The right groin was | | | prepped and draped in a sterile fashion. An ultrasound-guided | | | puncture of the right common femoral artery was performed and a short | | | 5 [place] African vascular sheath was placed. A 5 [place] African Scott 1 catheter | | | was formed over the aortic bifurcation. The Scott 1 catheter | | | was used to select the superior mesenteric artery and limited | | | arteriography was performed to define the origin of the replaced | | | hepatic artery. The Scott 1 catheter was then manipulated into | | | the origin of the replaced hepatic artery and arteriography was | | | performed in multiple projections. A microcatheter was advanced | | | into the right gastric artery (a branch of the replaced hepatic | | | artery) and arteriography was performed. The Scott 1 catheter was | | | then advanced to the origin of the celiac artery and arteriography | | | was performed. Limited arteriography over the right groin was | | | performed. The right groin puncture site was closed with an | | | Angio-Seal device. Good hemostasis was achieved. Maximum | | | sterile barrier techniques taken. All staff present in the room | | | performed hand hygiene prior to the procedure. There were no | | | immediate complications following the procedure. Estimated blood | | | loss: Minimal. Fluoro Time: 9.7 minutes The total number of | | | images: 6 Contrast: 140ml omnipaque Medications: No | | | intravenous sedation medications were administered. The conscious | | | sedation nurse who monitored the blood pressure, heart rate, and | | | pulse oximeter during the examination administered the medications. | | | The patient was monitored for approximately 80 minutes. A permanent | | | sonographic recording was created for the patient's record. | | | FINDINGS: Ultrasound of the right groin demonstrates patency of the | | | common femoral artery. Limited superior mesenteric arteriography | | | demonstrates the origin of the replaced hepatic artery. | | | Arteriography via the replaced hepatic artery demonstrates abnormal | | | appearance of the right gastric artery, which is a branch from the | | | replaced hepatic artery. There aneurysmal dilatation near its | | | origin. The artery is overall significantly dilated. However, | | | distally, there is significant irregularity and stenoses and a | | | possible small aneurysm distally near its junction with the left | | | gastric artery. No active extravasation identified the | | | gastroduodenal artery is patent and gastroepiploic branches are | | | visualized and are widely patent. There is relatively early filling | | | of a venous structure which ultimately opacifies the portal vein. | | | Selective angiography via the left gastric artery confirms | | | aneurysmal dilatation near its origin and irregularity throughout | | | this artery. Distally common near the fundus of the stomach, there is | | | significant stenosis and a possible 2nd small aneurysm. Note again | | | is made of early venous filling which ultimately opacifies the | | | portal venous system. Celiac arteriography demonstrates subtotal | | | occlusion near its origin. There is delayed filling of the splenic | | | artery. There is opacification of a small caliber left gastric | | | artery. A small aneurysm is identified. Limited arteriography | | | over the right groin demonstrates patency of the common femoral | | | artery. 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 2. Replaced hepatic artery from the proximal superior | | | mesenteric artery. 3. The right gastric artery, which branches from | | | the hepatic artery, is diffusely abnormal. The right gastric artery | | | is ectatic throughout. 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 There is severe narrowing and irregularity | | | of the distal left gastric/right gastric artery. The appearance is | | | most consistent with changes related to increased flow due to | | | subtotal occlusion of the celiac artery. 4. The gastroduodenal | | | artery and gastroepiploic arteries are patent. Signed by: | | | MD Power Cameron | | + + + + + | Procedure Note | + + | Avelino, Rad Results In - 08/18/2017 2:18 PM PDT | | 1. ULTRASOUND-GUIDED PUNCTURE OF RIGHT COMMON FEMORAL ARTERY | | 2. LIMITED SUPERIOR MESENTERIC ARTERIOGRAPHY | | 3. ARTERIOGRAPHY VIA REPLACED HEPATIC ARTERY | | 4. SUB SELECTION OF RIGHT GASTRIC ARTERY AND ARTERIOGRAPHY | | 5. CELIAC ARTERIOGRAPHY | | 6. LIMITED ARTERIOGRAPHY OVER THE RIGHT GROIN AND MECHANICAL CLOSURE | | OF RIGHT GROIN PUNCTURE SITE | | | | CLINICAL INFORMATION: | | Extensive intra-abdominal bleeding. CTA demonstrates active | | extravasation and abnormal appearance of a branch of the replaced | | hepatic artery. | | | | COMPARISON: | | ABD/PELVIS WITH CONTRAST dated 08/17/2017 | | | | PROCEDURE: | | Attempts were made at contacting the patient's next of kin. However, | | this was unsuccessful. Therefore, the procedure was performed on a | | medical necessity basis. The right groin was evaluated with | | ultrasound demonstrating patency of the common femoral artery. An | | ultrasound image was obtained for permanent record. The right groin | | was prepped and draped in a sterile fashion. An ultrasound-guided | | puncture of the right common femoral artery was performed and a short | | 5 [place] African vascular sheath was placed. A 5 [place] African Scott 1 catheter | | was formed over the aortic bifurcation. | | | | The Scott 1 catheter was used to select the superior mesenteric | | artery and limited arteriography was performed to define the origin | | of the replaced hepatic artery. The Scott 1 catheter was then | | manipulated into the origin of the replaced hepatic artery and | | arteriography was performed in multiple projections. A microcatheter | | was advanced into the right gastric artery (a branch of the replaced | | hepatic artery) and arteriography was performed. The Scott 1 | | catheter was then advanced to the origin of the celiac artery and | | arteriography was performed. | | | | Limited arteriography over the right groin was performed. The right | | groin puncture site was closed with an Angio-Seal device. Good | | hemostasis was achieved. | | | | Maximum sterile barrier techniques taken. All staff present in the | | room performed hand hygiene prior to the procedure. | | | | There were no immediate complications following the procedure. | | Estimated blood loss: Minimal. | | | | Fluoro Time: 9.7 minutes The total number of images: 6 | | | | Contrast: 140ml omnipaque | | | | Medications: | | No intravenous sedation medications were administered. The conscious | | sedation nurse who monitored the blood pressure, heart rate, and | | pulse oximeter during the examination administered the medications. | | The patient was monitored for approximately 80 minutes. A permanent | | sonographic recording was created for the patient's record. | | | | FINDINGS: | | Ultrasound of the right groin demonstrates patency of the common | | femoral artery. | | | | Limited superior mesenteric arteriography demonstrates the origin of | | the replaced hepatic artery. | | | | Arteriography via the replaced hepatic artery demonstrates abnormal | | appearance of the right gastric artery, which is a branch from the | | replaced hepatic artery. There aneurysmal dilatation near its | | origin. The artery is overall significantly dilated. However, | | distally, there is significant irregularity and stenoses and a | | possible small aneurysm distally near its junction with the left | | gastric artery. No active extravasation identified the | | gastroduodenal artery is patent and gastroepiploic branches are | | visualized and are widely patent. There is relatively early filling | | of a venous structure which ultimately opacifies the portal vein. | | | | Selective angiography via the left gastric artery confirms aneurysmal | | dilatation near its origin and irregularity throughout this artery. | | Distally common near the fundus of the stomach, there is significant | | stenosis and a possible 2nd small aneurysm. Note again is made of | | early venous filling which ultimately opacifies the portal venous | | system. | | | | Celiac arteriography demonstrates subtotal occlusion near its origin. | | There is delayed filling of the splenic artery. There is | | opacification of a small caliber left gastric artery. A small | | aneurysm is identified. | | | | Limited arteriography over the right groin demonstrates patency of | | the common femoral artery. 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 | | 2. Replaced hepatic artery from the proximal superior mesenteric | | artery. | | 3. The right gastric artery, which branches from the hepatic artery, | | is diffusely abnormal. The right gastric artery is ectatic | | throughout. Near its origin, there is saccular aneurysmal | | dilatation. There is severe narrowing and irregularity of the distal | | left gastric/right gastric artery. The appearance is most consistent | | with changes related to increased flow due to subtotal occlusion of | | the celiac artery. | | 4. The gastroduodenal artery and gastroepiploic arteries are patent. | | | | | | | | | | Signed by: MD Power Cameron | + + + +---------+ + + | Performing | Address | City/State/Zipcode | Phone Number | | Organization | | | | + +---------+ + + | [facility] | | | | + +---------+ + + DIC Panel(P) (08/17/2017 10:41 PM PDT) + + + + + + | Component | Value | Ref Range | Performed | Pathologist | | | | | At | Signature | + + + + + + | D-DIMER, | >4.00 (H)Comment: This | 0.00 - 0.49 | [facility] | | | QUANTITATIV | quantitative D Dimer | ug/mL FEU | [facility]CRED | | | E | assay has been evaluated | | HEART | | | | for screening for | | MEDICAL | | | | venous thrombotic | | CENTER | | | | disease, and may be | | LABORATORY | | | | useful in ruling out, | | [facility] | | | | but not ruling in | | | | | | disease. Values less | | | | | | than 0.40 ug/mL have a | | | | | | negative predictive | | | | | | value of >95% for ruling | | | | | | out large pulmonary | | | | | | emboli or proximal deep | | | | | | vein thrombosis. Distal | | | | | | DVT are not excluded. | | | | | | Rheumatoid factor may | | | | | | falsely elevate the | | | | | | determined D Dimer | | | | | | levels. | | | | + + + + + + | Fibrinogen | 258 | 211 - 419 mg/dL | [facility] | | | | | | [facility]CR[facility] | | | | | | HEART | | | | | | MEDICAL | | | | | | CENTER | | | | | | LABORATORY | | | | | | [facility] | | + + + + + + | INR | 1.3 (H)Comment: Usual | 0.9 - 1.1 | [facility] | | | | oral anticoagulant | | [facility] | | | | range: 2.0 to 3.0 High | | HEART | | | | level oral | | MEDICAL | | | | anticoagulant range: 2.5 | | CENTER | | | | to 3.5 | | LABORATORY | | | | | | [facility] | | + + + + + + | Platelet | 172 | 150 - 400 K/uL | [facility] | | | Count | | | [facility]CR[facility] | | | | | | HEART | | | | | | MEDICAL | | | | | | CENTER | | | | | | LABORATORY | | | | | | [facility] | | + + + + + + | Protime | 16.1 (H) | 12.0 - 14.2 sec | [facility] | | | | | | [facility]CR[facility] | | | | | | HEART | | | | | | MEDICAL | | | | | | CENTER | | | | | | LABORATORY | | | | | | [facility] | | + + + + + + | RBC | Normal | Normal | [facility] | | | Morphology | | | SACRED | | | | | | HEART | | | | | | MEDICAL | | | | | | CENTER | | | | | | LABORATORY | | | | | | [facility] | | + + + + + + | Thrombin | 16.0 | 15.6 - 20.0 sec | [facility] | | | Time, | | | SACRED | | | Patient | | | HEART | | | | | | MEDICAL | | | | | | CENTER | | | | | | LABORATORY | | | | | | [facility] | | + + + + + + | aPTT, | 24 (L)Comment: Deep | 26 - 36 sec | [facility] | | | Patient | venous thrombosis or | | [facility] | | | | pulmonary embolism | | HEART | | | | therapeutic heparin | | MEDICAL | | | | levels of 0.3 to 0.7 | | CENTER | | | | Units/mL anti FactorXa | | LABORATORY | | | | levels usually | | [facility] | | | | correspond to an aPTT of | | | | | | 65 to 99 seconds. Acute | | | | | | cardiac syndrom | | | | | | therapeutic range based | | | | | | on heparin levels of | | | | | | 0.2 to 0.5 usually | | | | | | correspond to an aPTT of | | | | | | 57 to 76 seconds. | | | | | | Pediatric guidelines | | | | | | suggested heparin levels | | | | | | of 0.35 to 0.7 usually | | | | | | correspond to an aPTT of | | | | | | 69 to 99 | | | | | | seconds.Performed by [facility] | | | | | | [address], | | | | | | [place] [address] | | | | + + + + + + + + | Specimen | + + | Blood specimen | | (specimen) | + + + + + + + | Performing | Address | City/State/Zipcode | Phone Number | | Organization | | | | + + + + + | [facility] | [address] | [place] [address] | | | [facility] | | | | | [facility] [place] | | | | + + + + + Calcium, Ionized, Respiratory (08/17/2017 10:39 PM PDT) + + + + + + | Component | Value | Ref Range | Performed | Pathologist | | | | | At | Signature | + + + + + + | Calcium, | 4.31 (L) | 4.75 - 5.30 | [facility] | | | Ionized | | mg/dL | [facility] | | | | | | HEART | | | | | | MEDICAL | | | | | | CENTER | | | | | | LABORATORY | | | | | | [facility] | | + + + + + + | Calcium, pH | 4.14 (L)Comment: | 4.75 - 5.30 | [facility] | | | Normalized | Performed by [facility] [address] | mg/dL | SACRED | | | | [address] [place] | | HEART | | | | [id number] | | MEDICAL | | | | | | CENTER | | | | | | LABORATORY | | | | | | [facility] | | + + + + + + + + | Specimen | + + | Blood specimen | | (specimen) | + + + + + + + | Performing | Address | City/State/Zipcode | Phone Number | | Organization | | | | + + + + + | [facility] | [address] | [place] [address] | | | [facility] | | | | | LABORATORY [place] | | | | + + + + + Chloride, Respiratory (08/17/2017 10:39 PM PDT) + + + + + + | Component | Value | Ref Range | Performed | Pathologist | | | | | At | Signature | + + + + + + | Cl | 109Comment: Performed | 101 - 111 | [facility] | | | | by [facility] [address], | mmol/L | SACRED | | | | [place] [address] | | HEART | | | |Performed by [facility] [address], [place] [address] | | MEDICAL | | | | | | CENTER | | | | | | LABORATORY | | | | | | [facility] | | + + + + + + + + | Specimen | + + | Blood specimen | | (specimen) | + + + + + + + | Performing | Address | City/State/Zipcode | Phone Number | | Organization | | | | + + + + + | [facility] | [address] | [place] [address] | | | [facility] | | | | | LABORATORY [place] | | | | + + + + + Potassium Whole Blood (08/17/2017 10:39 PM PDT) + + + + + + | Component | Value | Ref Range | Performed | Pathologist | | | | | At | Signature | + + + + + + | K | 3.7Comment: Performed | 3.5 - 5.0 | [facility] | | | | by [facility] [address], | mmol/L | [facility] | | | | [place] | | HEART | | | |Performed by [facility] [address], [place], [place] | | MEDICAL | | | | | | CENTER | | | | | | LABORATORY | | | | | | CERNER | | + + + + + + + + | Specimen | + + | Blood specimen | | (specimen) | + + + + + + + | Performing | Address | City/State/Zipcode | Phone Number | | Organization | | | | + + + + + | [facility] | [address] | [place], [place] | | | [facility] | | | | | LABORATORY [facility] | | | | + + + + + Glucose, Respiratory (08/17/2017 10:39 PM PDT) + + + + + + | Component | Value | Ref Range | Performed | Pathologist | | | | | At | Signature | + + + + + + | Glucose | 196 (H)Comment: | 65 - 99 mg/dL | [facility] | | | | Performed by [facility] [address] | | [facility] | | | | [address] [place] | | HEART | | | | [id number] | | MEDICAL | | | | | | CENTER | | | | | | LABORATORY | | | | | | CERNER | | + + + + + + + + | Specimen | + + | Blood specimen | | (specimen) | + + + + + + + | Performing | Address | City/State/Zipcode | Phone Number | | Organization | | | | + + + + + | [facility] | [address] | [place] [address] | | | [facility] | | | | | LABORATORY [facility] | | | | + + + + + Blood Gas, Arterial (08/17/2017 10:39 PM PDT) + + + +--------- ----+ + | Component | Value | Ref Range | Performe d | Pathologist | | | | | At | Signature | + + + +--------- ----+ + | pH, | 7.33 (L) | 7.37 - 7.47 | [facility] | | | Arterial | | | [facility] | | | | | | HEART | | | | | | MEDICAL | | | | | | CENTER | | | | | | LABORATO RY | | | | | | CERNER | | + + + +--------- ----+ + | pCO2, | 35 | 32 - 43 mmHg | [facility] | | | Arterial | | | [facility] | | | | | | HEART | | | | | | MEDICAL | | | | | | CENTER | | | | | | LABORATO RY | | | | | | CERN[facility] | | + + + +--------- ----+ + | pO2, | 193 (H) | 65 - 80 mmHg | [facility] | | | Arterial | | | [facility] | | | | | | HEART | | | | | | MEDICAL | | | | | | CENTER | | | | | | LABORATO RY | | | | | | CERN[facility] | | + + + +--------- ----+ + | Base | -7.8 (L) | -2.5 - 2.5 | [facility] | | | Excess, | | mmol/L | [facility] | | | Arterial | | | HEART | | | | | | MEDICAL | | | | | | CENTER | | | | | | LABORATO RY | | | | | | CERNER | | + + + +--------- ----+ + | HCO3, | 18.2 (L) | 23.0 - 28.0 | [facility] | | | Arterial | | mmol/L | [facility] | | | | | | HEART | | | | | | MEDICAL | | | | | | CENTER | | | | | | LABORATO RY | | | | | | CERNER | | + + + +--------- ----+ + | FiO2 | 60 | | [facility] | | | | | | [facility] | | | | | | HEART | | | | | | MEDICAL | | | | | | CENTER | | | | | | LABORATO RY | | | | | | CERNER | | + + + +--------- ----+ + | ROUTE | simv | | [facility] | | | | | | [facility] | | | | | | HEART | | | | | | MEDICAL | | | | | | CENTER | | | | | | LABORATO RY | | | | | | CERNER | | + + + +--------- ----+ + | Rate | 18 | | [facility] | | | | | | [facility] | | | | | | HEART | | | | | | MEDICAL | | | | | | CENTER | | | | | | LABORATO RY | | | | | | CERNER | | + + + +--------- ----+ + | [address] | 400 | | [facility] | | | | | | [facility] | | | | | | HEART | | | | | | MEDICAL | | | | | | CENTER | | | | | | LABORATO RY | | | | | | C[facility]ER | | + + + +--------- ----+ + | PEEP | 8 | | [facility] | | | | | | [facility] | | | | | | HEART | | | | | | MEDICAL | | | | | | CENTER | | | | | | LABORATO RY | | | | | | CERNER | | + + + +--------- ----+ + | Methemoglob | 1.0 | 0.4 - 1.5 % | [facility] | | | in, Venous | | | [facility] | | | | | | HEART | | | | | | MEDICAL | | | | | | CENTER | | | | | | LABORATO RY | | | | | | CERN[facility] | | + + + +--------- ----+ + | Comment | Ox99% RR18 | | [facility] | | | | | | [facility] | | | | | | HEART | | | | | | MEDICAL | | | | | | CENTER | | | | | | LABORATO RY | | | | | | [facility] | | + + + +--------- ----+ + | Oxygen | 16.9 | 15.0 - 23.0 % | [facility] | | | Content, | | | [facility] | | | Arterial | | | HEART | | | | | | MEDICAL | | | | | | CENTER | | | | | | LABORATO RY | | | | | | C[facility] | | + + + +--------- ----+ + | Hct | 36.6 | 34.0 - 46.0 % | [facility] | | | | | | [facility] | | | | | | HEART | | | | | | MEDICAL | | | | | | CENTER | | | | | | LABORATO RY | | | | | | [facility] | | + + + +--------- ----+ + | Carboxyhemo | 0.7 (L) | 1.0 - 3.0 % | [facility] | | | globin | | | [facility] | | | | | | HEART | | | | | | MEDICAL | | | | | | CENTER | | | | | | LABORATO RY | | | | | | [facility] | | + + + +--------- ----+ + | Hemoglobin | 11.9 | 11.3 - 15.5 | [facility] | | | | | g/dL | [facility] | | | | | | HEART | | | | | | MEDICAL | | | | | | CENTER | | | | | | LABORATO RY | | | | | | CERNER | | + + + +--------- ----+ + | O2SAT COOX | 98.0Comment: Performed | 92.0 - 99.0 % | [facility] | | | ARTERIAL | by [facility] [address], | | SACRED | | | | [place] [address] | | HEART | | | |Performed by [facility] [address], [place] [address] | | MEDICAL | | | | | | CENTER | | | | | | LABORATO RY | | | | | | CERNER | | + + + +--------- ----+ + + + | Specimen | + + | Blood specimen | | (specimen) - Artery | | sample (specimen) | + + + + + + + | Performing | Address | City/State/Zipcode | Phone Number | | Organization | | | | + + + + + | [facility] N[facility] | [address] | [place] [address] | | | [facility] | | | | | LABORATORY [facility] | | | | + + + + + Phosphorus (08/17/2017 10:35 PM PDT) + + + +-------- -----+ + | Component | Value | Ref Range | Perform ed | Pathologist | | | | | At | Signature | + + + +-------- -----+ + | Phosphorus | 3.2Comment: Performed | 2.6 - 4.4 mg/dL | [facility] | | | | by [facility] [address], | | SACRED | | | | [place] [address] | | HEART | | | |Performed by [facility] [address], [place] [address] | | MEDICAL | | | | | | CENTER | | | | | | LABORAT ORY | | | | | | CERNER | | + + + +-------- -----+ + + + | Specimen | + + | Blood specimen | | (specimen) | + + + + + + + | Performing | Address | City/State/Zipcode | Phone Number | | Organization | | | | + + + + + | [facility] | [address] | [place] [address] | | | [facility] | | | | | LABORATORY [facility] | | | | + + + + + ABO Rh (08/17/2017 10:35 PM PDT) + + + + + + | Component | Value | Ref Range | Performed | Pathologist | | | | | At | Signature | + + + + + + | ABO | O | | [facility]FER[facility] | | | | | | [facility] [facility] | | | | | | [facility] | | | | | | [facility] | | | | | | [facility] | | | | | | [facility] | | + + + + + + | Rh Type | Positive | | REFER[facility] | | | | | | [facility] | | | | | | [facility] | | | | | | [facility] | | | | | | [facility] | | | | | | CENTER | | + + + + + + + + | Specimen | + + | | + + + + + | Narrative | Performed At | + + + | Specimen Expiration Date: [id number] | [facility] | | | [facility] | | | [facility] | | | [facility] | + + + + + + + + | Performing | Address | City/State/Zipcode | Phone Number | | Organization | | | | + + + + + | [facility] | [address] | [place] [address] | [phone] | | [facility] | | | | | [facility] | | | | | [facility] | | | | + + + + + Magnesium (08/17/2017 10:35 PM PDT) + + + +--------- ----+ + | Component | Value | Ref Range | Performe d | Pathologist | | | | | At | Signature | + + + +--------- ----+ + | Magnesium | 2.2Comment: Performed | 1.7 - 2.4 mg/dL | [facility] | | | | by [facility] [address], | | SACRED | | | | [place] [address] | | HEART | | | |Performed by [facility] [address], [place] [address] | | MEDICAL | | | | | | CENTER | | | | | | LABORATO RY | | | | | | [facility] | | + + + +--------- ----+ + + + | Specimen | + + | Blood specimen | | (specimen) | + + + + + + + | Performing | Address | City/State/Zipcode | Phone Number | | Organization | | | | + + + + + | [facility] | [address] | [place] [address] | | | [facility] | | | | | LABORATORY [facility] | | | | + + + + + Comprehensive Metabolic Panel (08/17/2017 10:35 PM PDT) + + + + + + | Component | Value | Ref Range | Performed | Pathologist | | | | | At | Signature | + + + + + + | Na | 139 | 135 - 145 | [facility] | | | | | mmol/L | [facility] | | | | | | HEART | | | | | | MEDICAL | | | | | | CENTER | | | | | | LABORATORY | | | | | | [facility] | | + + + + + + | K | 3.9 | 3.5 - 5.0 | [facility] | | | | | mmol/L | [facility] | | | | | | HEART | | | | | | MEDICAL | | | | | | CENTER | | | | | | LABORATORY | | | | | | [facility] | | + + + + + + | Cl | 109 | 99 - 109 mmol/L | [facility] | | | | | | [facility] | | | | | | HEART | | | | | | MEDICAL | | | | | | CENTER | | | | | | LABORATORY | | | | | | [facility] | | + + + + + + | CO2 | 19 (L) | 21 - 28 mmol/L | [facility] | | | | | | [facility] | | | | | | HEART | | | | | | MEDICAL | | | | | | CENTER | | | | | | LABORATORY | | | | | | [facility] | | + + + + + + | Calcium | 6.9 (L) | 8.5 - 10.2 | [facility] | | | | | mg/dL | [facility] | | | | | | HEART | | | | | | MEDICAL | | | | | | CENTER | | | | | | LABORATORY | | | | | | [facility] | | + + + + + + | Anion Gap | 11 | 5 - 16 mmol/L | [facility] | | | | | | [facility] | | | | | | HEART | | | | | | MEDICAL | | | | | | CENTER | | | | | | LABORATORY | | | | | | [facility] | | + + + + + + | Albumin | 3.3 | 3.3 - 4.8 g/dL | [facility] | | | | | | [facility] | | | | | | HEART | | | | | | MEDICAL | | | | | | CENTER | | | | | | LABORATORY | | | | | | [facility] | | + + + + + + | BUN | 12 | 8 - 25 mg/dL | [facility] | | | | | | [facility] | | | | | | HEART | | | | | | MEDICAL | | | | | | CENTER | | | | | | LABORATORY | | | | | | [facility] | | + + + + + + | Creatinine | 0.64 | 0.50 - 1.00 | [facility] | | | | | mg/dL | [facility] | | | | | | HEART | | | | | | MEDICAL | | | | | | CENTER | | | | | | LABORATORY | | | | | | [facility] | | + + + + + + | Glucose | 193 (H) | 65 - 99 mg/dL | [facility] | | | | | | [facility] | | | | | | HEART | | | | | | MEDICAL | | | | | | CENTER | | | | | | LABORATORY | | | | | | [facility] | | + + + + + + | Total | 5.2 (L) | 6.1 - 7.8 g/dL | [facility] | | | Protein | | | [facility] | | | | | | HEART | | | | | | MEDICAL | | | | | | CENTER | | | | | | LABORATORY | | | | | | [facility] | | + + + + + + | Alkaline | 53 | 35 - 115 U/L | [facility] | | | Phosphatase | | | [facility] | | | | | | HEART | | | | | | MEDICAL | | | | | | CENTER | | | | | | LABORATORY | | | | | | [facility] | | + + + + + + | ALT | 290 (H) | 10 - 65 U/L | [facility] | | | | | | [facility] | | | | | | HEART | | | | | | MEDICAL | | | | | | CENTER | | | | | | LABORATORY | | | | | | [facility] | | + + + + + + | AST | 240 (H) | 10 - 45 U/L | [facility] | | | | | | [facility] | | | | | | HEART | | | | | | MEDICAL | | | | | | CENTER | | | | | | LABORATORY | | | | | | [facility] | | + + + + + + | Bilirubin | 0.4 | 0.2 - 1.1 mg/dL | [facility] | | | Total | | | [facility] | | | | | | HEART | | | | | | MEDICAL | | | | | | CENTER | | | | | | LABORATORY | | | | | | CERNER | | + + + + + + | Estimated | 95Comment: eGFR<60 | >=90 | [facility] | | | GFR | consistent with impaired | mL/min/1.73m2 | [facility] | | | | kidney | | HEART | | | | function.Performed by | | MEDICAL | | | | [facility] [address] | | CENTER | | | | [place] [address] | | LABORATORY | | | | | | [facility]ER | | + + + + + + + + | Specimen | + + | Blood specimen | | (specimen) | + + + + + + + | Performing | Address | City/State/Zipcode | Phone Number | | Organization | | | | + + + + + | [facility] | [address] | [place] [address] | | | [facility] | | | | | LABORATORY [facility] | | | | + + + + + CBC with Differential (08/17/2017 10:35 PM PDT) + + + +------- ------+ + | Component | Value | Ref Range | Perfor med | Pathologist | | | | | At | Signature | + + + +------- ------+ + | WBC | 18.5 (H) | 3.8 - 11.0 K/uL | [facility] | | | | | | [facility] | | | | | | HEART | | | | | | MEDICA L | | | | | | CENTER | | | | | | LABORA TORY | | | | | | [facility] | | + + + +------- ------+ + | RBC | 3.83 | 3.70 - 5.10 | [facility] | | | | | M/uL | [facility] | | | | | | HEART | | | | | | MEDICA L | | | | | | CENTER | | | | | | LABORA TORY | | | | | | [facility] | | + + + +------- ------+ + | Hemoglobin | 11.8 | 11.3 - 15.5 | [facility] | | | | | g/dL | [facility] | | | | | | HEART | | | | | | MEDICA L | | | | | | CENTER | | | | | | LABORA TORY | | | | | | [facility] | | + + + +------- ------+ + | Hct | 33.6 (L) | 34.0 - 46.0 % | [facility] | | | | | | [facility] | | | | | | HEART | | | | | | MEDICA L | | | | | | CENTER | | | | | | LABORA TORY | | | | | | [facility] | | + + + +------- ------+ + | MCV | 87.6 | 80.0 - 100.0 fL | [facility] | | | | | | [facility] | | | | | | HEART | | | | | | MEDICA L | | | | | | CENTER | | | | | | LABORA TORY | | | | | | [facility] | | + + + +------- ------+ + | MCH | 30.7 | 27.0 - 34.0 pg | [facility] | | | | | | [facility] | | | | | | HEART | | | | | | MEDICA L | | | | | | CENTER | | | | | | LABORA TORY | | | | | | [facility] | | + + + +------- ------+ + | MCHC | 35.0 | 32.0 - 35.5 | [facility] | | | | | g/dL | [facility] | | | | | | HEART | | | | | | MEDICA L | | | | | | CENTER | | | | | | LABORA TORY | | | | | | [facility] | | + + + +------- ------+ + | RDW-CV | 14.8 | 11.0 - 15.5 % | [facility] | | | | | | [facility] | | | | | | HEART | | | | | | MEDICA L | | | | | | CENTER | | | | | | LABORA TORY | | | | | | [facility] | | + + + +------- ------+ + | Platelet | 172 | 150 - 400 K/uL | [facility] | | | Count | | | [facility] | | | | | | HEART | | | | | | MEDICA L | | | | | | CENTER | | | | | | LABORA TORY | | | | | | [facility] | | + + + +------- ------+ + | MPV | 7.9 | 7.5 - 11.2 fL | [facility] | | | | | | [facility] | | | | | | HEART | | | | | | MEDICA L | | | | | | CENTER | | | | | | LABORA TORY | | | | | | [facility] | | + + + +------- ------+ + | % | 83.4 (H) | 40.0 - 75.0 % | [facility] | | | Neutrophils | | | [facility] | | | | | | HEART | | | | | | MEDICA L | | | | | | CENTER | | | | | | LABORA TORY | | | | | | [facility] | | + + + +------- ------+ + | % | 8.9 (L) | 15.0 - 48.0 % | [facility] | | | Lymphocytes | | | [facility] | | | | | | HEART | | | | | | MEDICA L | | | | | | CENTER | | | | | | LABORA TORY | | | | | | [facility] | | + + + +------- ------+ + | % Monocytes | 7.6 | 0.0 - 12.0 % | [facility] | | | | | | [facility] | | | | | | HEART | | | | | | MEDICA L | | | | | | CENTER | | | | | | LABORA TORY | | | | | | [facility] | | + + + +------- ------+ + | % Basophils | 0.1 | 0.0 - 2.0 % | [facility] | | | | | | [facility] | | | | | | HEART | | | | | | MEDICA L | | | | | | CENTER | | | | | | LABORA TORY | | | | | | [facility] | | + + + +------- ------+ + | Absolute | 15.40 (H) | 1.90 - 7.40 | [facility] | | | Neutrophils | | K/uL | [facility] | | | | | | HEART | | | | | | MEDICA L | | | | | | CENTER | | | | | | LABORA TORY | | | | | | [facility] | | + + + +------- ------+ + | Absolute | 1.65 | 1.00 - 3.90 | [facility] | | | Lymphocytes | | K/uL | [facility] | | | | | | HEART | | | | | | MEDICA L | | | | | | CENTER | | | | | | LABORA TORY | | | | | | [facility] | | + + + +------- ------+ + | Absolute | 1.41 (H) | 0.00 - 0.80 | [facility] | | | Monocytes | | K/uL | [facility] | | | | | | HEART | | | | | | MEDICA L | | | | | | CENTER | | | | | | LABORA TORY | | | | | | [facility] | | + + + +------- ------+ + | Absolute | 0.02Comment: Performed | 0.00 - 0.10 | [facility] | | | Basophils | by [facility] [address], | K/uL | SACRED | | | | [place] [address] | | HEART | | | |Performed by [facility] [address], [place] [address] | | MEDICA L | | | | | | CENTER | | | | | | LABORA TORY | | | | | | CERNER | | + + + +------- ------+ + + + | Specimen | + + | Blood specimen | | (specimen) | + + + + + + + | Performing | Address | City/State/Zipcode | Phone Number | | Organization | | | | + + + + + | [facility] | [address] | [place] [address] | | | [facility] | | | | | LABORATORY [facility] | | | | + + + + + Type and Screen (08/17/2017 10:30 PM PDT) + + + + + + | Component | Value | Ref Range | Performed | Pathologist | | | | | At | Signature | + + + + + + | ABO | O | | REFERENCE | | | | | | [facility] | | | | | | [facility] | | | | | | [facility] | | | | | | [facility] | | | | | | CENTER | | + + + + + + | Rh Type | PositiveComment: Patient | | REFERENCE | | | | is remote crossmatch | | [facility] | | | | eligible | | [facility] | | | | | | [facility] | | | | | | BLOOD | | | | | | CENTER | | + + + + + + | Antibody | Negative | | REFERENCE | | | Screen | | | [facility] | | | | | | [facility] | | | | | | [facility] | | | | | | BLO[facility] | | | | | | CENTER | | + + + + + + + + | Specimen | + + | Blood specimen | | (specimen) | + + + + + | Narrative | Performed At | + + + | Specimen Expiration Date: [id number] | [facility] | | | [facility] | | | [facility] | | | [facility] | + + + + + + + + | Performing | Address | City/State/Zipcode | Phone Number | | Organization | | | | + + + + + | [facility] | [address] | [place] [address] | [phone] | | [facility] | | | | | [facility] | | | | | [facility] | | | | + + + + + LABS - EXTERNAL SCAN (08/17/2017 12:00 AM PDT) + + + | Narrative | Performed At | + + + | Ordered by an | | | unspecified provider. | | + + + IMAGING REPORT - EXTERNAL SCAN (08/17/2017 12:00 AM PDT) + + + | Narrative | Performed [...] | acetaminophen (TYLENOL) tablet | Given | 08/23/19 | 650 mg | | | | 650 mg 650 mg, Oral, EVERY 4 | | 18 9:48 | | | | | HOURS PRN, Pain, Starting Fri | | AM PDT | | | | | 08/19/17 at 1303 | | | | | | + +--------+ +--------+------+------+ +-------+ +--------+---+---+ | Given | 08/22/19 | 650 mg | | | | | 18 2:56 | | | | | | PM PDT | | | | +-------+ +--------+---+---+ | Given | 08/21/19 | 650 mg | | | | | 18 1:55 | | | | | | PM PDT | | | | +-------+ +--------+---+---+ +---+---+ | | | +---+---+ + +-------+ +-------+---+---+ | albuterol-ipratropium (DUONEB) | Given | 08/24/19 | 3 mLs | | | | 2.5-0.5 mg/3 mL nebulizer | | 18 2:18 | | | | | solution 3 mL 3 mL, | | PM PDT | | | | | Nebulization, RT EVERY 4 HOURS | | | | | | | PRN, Shortness of Breath, | | | | | | | Starting [facility] 08/18/17 at 0508 | | | | | | + +-------+ +-------+---+---+ +-------+ +-------+---+---+ | Given | 08/20/19 | 3 mLs | | | | | 18 6:24 | | | | | | PM PDT | | | | +-------+ +-------+---+---+ | Given | 08/19/19 | 3 mLs | | | | | 18 7:48 | | | | | | AM PDT | | | | +-------+ +-------+---+---+ +---+---+ | | | +---+---+ + +-------+ +-------+---+---+ | albuterol-ipratropium (DUONEB) | Given | 08/24/19 | 3 mLs | | | | 2.5-0.5 mg/3 mL nebulizer | | 18 4:07 | | | | | solution 3 mL 3 mL, | | AM PDT | | | | | Nebulization, RT Q6H, First dose | | | | | | | (after last modification) on Sun | | | | | | | 08/21/17 at 1215 | | | | | | + +-------+ +-------+---+---+ +-------+ +-------+---+---+ | Given | 08/23/19 | 3 mLs | | | | | 18 11:52 | | | | | | PM PDT | | | | +-------+ +-------+---+---+ | Given | 08/23/19 | 3 mLs | | | | | 18 4:40 | | | | | | PM PDT | | | | +-------+ +-------+---+---+ +---+---+ | | | +---+---+ + +-------+ +-------+---+---+ | atorvaSTATin (LIPITOR) tablet | Given | 08/23/19 | 40 mg | | | | 40 mg 40 mg, Oral, NIGHTLY, | | 18 8:40 | | | | | First dose on Tue08/22/17 at 2100 | | PM PDT | | | | + +-------+ +-------+---+---+ +---+---+ | | | +---+---+ + +-------+ +---------+---+---+ | budesonide (PULMICORT) 0.25 | Given | 08/24/19 | 0.25 mg | | | | mg/2 mL nebulizer solution 0.25 | | 18 4:10 | | | | | mg 0.25 mg, Nebulization, RT | | AM PDT | | | | | BID, First dose on Johana 08/18/17 at | | | | | | | 0900, RT will administer. Shake | | | | | | | well. Protect from light. Rinse | | | | | | | mouth after use., | | | | | | + +-------+ +---------+---+---+ +-------+ +---------+---+---+ | Given | 08/23/19 | 0.25 mg | | | | | 18 4:40 | | | | | | PM PDT | | | | +-------+ +---------+---+---+ | Given | 08/23/19 | 0.25 mg | | | | | 18 4:57 | | | | | | AM PDT | | | | +-------+ +---------+---+---+ +---+---+ | | | +---+---+ + +-------+ +--------+---+---+ | buPROPion (WELLBUTRIN SR) 12 hr | Given | 08/24/19 | 150 mg | | | | tablet 150 mg 150 mg, Oral, 2 | | 18 8:21 | | | | | TIMES DAILY, First dose on Mon | | AM PDT | | | | | 08/22/17 at 0900, Do not cut or | | | | | | | crush., | | | | | | + +-------+ +--------+---+---+ +-------+ +--------+---+---+ | Given | 08/23/19 | 150 mg | | | | | 18 8:40 | | | | | | PM PDT | | | | +-------+ +--------+---+---+ | Given | 08/23/19 | 150 mg | | | | | 18 11:03 | | | | | | AM PDT | | | | +-------+ +--------+---+---+ +---+---+ | | | +---+---+ + +-------+ + +---+---+ | calcium carbonate (TUMS) | Given | 08/24/19 | 1,000 mg | | | | chewable tablet 1,000 mg 1,000 | | 18 1:46 | | | | | mg, Oral, EVERY 4 HOURS PRN, | | PM PDT | | | | | Indigestion, Heartburn, Starting | | | | | | | 08/21/17 at 1653, 500mg | | | | | | | calcium carbonate = 200mg | | | | | | | elemental calcium, | | | | | | + +-------+ + +---+---+ +-------+ + +---+---+ | Given | 08/24/19 | 1,000 mg | | | | | 18 12:12 | | | | | | AM PDT | | | | +-------+ + +---+---+ | Given | 08/22/19 | 1,000 mg | | | | | 18 5:09 | | | | | | PM PDT | | | | +-------+ + +---+---+ +---+---+ | | | +---+---+ + +---------+ +-----+ +---+ | calcium gluconate 2 g in sodium | New Bag | 08/19/19 | 2 g | 70 mL/hr | | | chloride 0.9% 50 mL IVPB 2 g, | | 18 1:30 | | | | | Intravenous, Administer over 60 | | PM PDT | | | | | Minutes, PRN, for ionized calcium | | | | | | | < 4.75, Starting [facility] 08/18/17 at | | | | | | | 0156 | | | | | | + +---------+ +-----+ +---+ +---------+ +-----+ +---+ | New Bag | 08/19/19 | 2 g | 70 mL/hr | | | | 18 3:17 | | | | | | AM PDT | | | | +---------+ +-----+ +---+ +---+---+ | | | +---+---+ + +-------+ +--------+---+---+ | carboxymethylcellulose (PF) | Given | 08/21/19 | 1 drop | | | | (REFRESH CELLUVISC, THERATEARS) | | 18 5:03 | | | | | 1% ophthalmic gel 1 drop 1 drop, | | PM PDT | | | | | Both Eyes, EVERY 1 HOUR PRN, Dry | | | | | | | Eyes, Starting 08/19/17 at | | | | | | | 0345 | | | | | | + +-------+ +--------+---+---+ +---+---+ | | | +---+---+ + +-------+ +---------+---+---+ | docusate-senna (SENOKOT-S) | Given | 08/23/19 | 2 | | | | 50-8.6 mg per tablet 2 tablet 2 | | 18 8:41 | tablets | | | | tablet, Oral, 2 TIMES DAILY, | | PM PDT | | | | | First dose on Tue08/19/17 at 2100 | | | | | | + +-------+ +---------+---+---+ +-------+ +---------+---+---+ | Given | 08/23/19 | 2 | | | | | 18 11:03 | tablets | | | | | AM PDT | | | | +-------+ +---------+---+---+ | Given | 08/22/19 | 2 | | | | | 18 9:31 | tablets | | | | | PM PDT | | | | +-------+ +---------+---+---+ +---+---+ | | | +---+---+ + +-------+ + +---+---+ | HYDROcodone-acetaminophen | Given | 08/24/19 | 1 tablet | | | | (NORCO) 5-325 mg per tablet 1-2 | | 18 1:46 | | | | | tablet 1-2 tablet, Oral, EVERY 4 | | PM PDT | | | | | HOURS PRN, Pain, Starting Mon | | | | | | | 08/22/17 at 2044 | | | | | | + +-------+ + +---+---+ +-------+ + +---+---+ | Given | 08/24/19 | 1 tablet | | | | | 18 6:43 | | | | | | AM PDT | | | | +-------+ + +---+---+ | Given | 08/24/19 | 1 tablet | | | | | 18 2:02 | | | | | | AM PDT | | | | +-------+ + +---+---+ +---+---+ | | | +---+---+ + +-------+ +-------+---+---+ | lisinopril (PRINIVIL, ZESTRIL) | Given | 08/24/19 | 10 mg | | | | tablet 10 mg 10 mg, Oral, DAILY, | | 18 8:21 | | | | | First dose on 08/22/17 at | | AM PDT | | | | | 0900 | | | | | | + +-------+ +-------+---+---+ +-------+ +-------+---+---+ | Given | 08/23/19 | 10 mg | | | | | 18 11:04 | | | | | | AM PDT | | | | +-------+ +-------+---+---+ +---+---+ | | | +---+---+ + +-------+ +------+---+---+ | ondansetron (ZOFRAN) injection | Given | 08/21/19 | 4 mg | | | | 4 mg 4 mg, Intravenous, EVERY 6 | | 18 8:06 | | | | | HOURS PRN, Nausea, Starting Wed | | PM PDT | | | | | 08/17/17 at 2212, First line agent, | | | | | | | | | | | | | + +-------+ +------+---+---+ +-------+ +------+---+---+ | Given | 08/20/19 | 4 mg | | | | | 18 1:55 | | | | | | PM PDT | | | | +-------+ +------+---+---+ +---+---+ | | | +---+---+ + +-------+ +------+---+---+ | oxybutynin (DITROPAN) tablet 5 | Given | 08/24/19 | 5 mg | | | | mg 5 mg, Oral, 2 TIMES DAILY, | | 18 8:21 | | | | | First dose on Tue08/22/17 at | | AM PDT | | | | | 0900, Give on an empty stomach., | | | | | | + +-------+ +------+---+---+ +---+---+ | | | +---+---+ + +-------+ +-------+---+---+ | pantoprazole (PROTONIX) DR | Given | 08/24/19 | 40 mg | | | | tablet 40 mg 40 mg, Oral, DAILY | | 18 6:43 | | | | | BEFORE BREAKFAST, First dose on | | AM PDT | | | | | Tue08/22/17 at 0900, Do not cut | | | | | | | or crush., | | | | | | + +-------+ +-------+---+---+ +-------+ +-------+---+---+ | Given | 08/23/19 | 40 mg | | | | | 18 11:09 | | | | | | AM PDT | | | | +-------+ +-------+---+---+ +---+---+ | | | +---+---+ + +-------+ +--------+---+---+ | polyvinyl alcohol (LIQUITEARS) | Given | 08/22/19 | 1 drop | | | | 1.4% ophthalmic solution 1-2 drop | | 18 1:00 | | | | | 1-2 drop, Both Eyes, EVERY 1 | | PM PDT | | | | | HOUR PRN, Dry Eyes, Starting Fri | | | | | | | 08/19/17 at 1234 | | | | | | + +-------+ +--------+---+---+ +-------+ +---------+---+---+ | Given | 08/20/19 | 2 drops | | | | | 18 1:26 | | | | | | PM PDT | | | | +-------+ +---------+---+---+ +---+---+ | | | +---+---+ + +-------+ +-------+---+---+ | propranolol (INDERAL) tablet 80 | Given | 08/24/19 | 80 mg | | | | mg 80 mg, Oral, DAILY, First | | 18 8:20 | | | | | dose (after last modification) on | | AM PDT | | | | | 08/21/17 at 0900 | | | | | | + +-------+ +-------+---+---+ +-------+ +-------+---+---+ | Given | 08/23/19 | 80 mg | | | | | 18 11:04 | | | | | | AM PDT | | | | +-------+ +-------+---+---+ | Given | 08/22/19 | 80 mg | | | | | 18 9:01 | | | | | | AM PDT | | | | +-------+ +-------+---+---+ + +---+ | | | + +---+ | sodium chloride (OCEAN) 0.65% | | | nasal spray 1-2 spray 1-2 spray, | | | Each Nare, EVERY 1 HOUR PRN, | | | Nasal Dryness, Starting Sun | | | 08/21/17 at 0949 | | + +---+ | | | + +---+ documented in this encounter
--- OUTSIDE RECORDS SUMMARY | ~2019-01-22 | XMS | Encounter Summary ---
Demographics + + + | Address | [address] | | | [place] [address] | + + + | Home Phone | | + + + | Preferred Language | Unknown | + + + | Marital Status | | + + + | Episcopal Affiliation | 1028 | + + + | Race | Unknown | + + + | Ethnic Group | Unknown | + + + Author + + + | Author | [facility] | | | and [place] | + + + | Organization | [facility] | | | and [place] | + + + | Address | Unknown | + + + | Phone | Unavailable | + + + Support + + + + + | Name | Relationship | Address | Phone | + + + + + | Joseluis Desai | ECON | [place] | | | | | [address] | | + + + + + | Mila Desai | ECON | Unknown | | + + + + + Care Team Providers + +------+ + | Care Dental Floss Packer Name | Role | Phone | + [...] Forrest SMITH | | | | | [phone] | [place] [address] | | +--------+ + + + + [...] 2019 | Visit | | MD [address] | | | | | | [place] | | | | | | [address] | | | | | | | [...] for this | | | e | 7:40 PM | | procedure are in the | | | | PST | | results section. | + +--------+ + + + documented in this encounter Results XR Chest 1 Vw (05/07/2017 7:40 PM PST) + + | Specimen | [...]
--- OUTSIDE RECORDS SUMMARY | ~2019-01-22 | XMS | Encounter Summary ---
Demographics + + + | Address | [address] | | | [place] [address] | + + + | Home Phone | | + + + | Preferred Language | Unknown | + + + | Marital Status | | + + + | Cheondoism Affiliation | 1028 | + + + | Race | Unknown | + + + | Ethnic Group | Unknown | + + + Author + + + | Author | [facility] | | | and [place] | + + + | Organization | [facility] | | | and [place] | + + + | Address | Unknown | + + + | Phone | Unavailable | + + + Support + + + + + | Name | Relationship | Address | Phone | + + + + + | Joseluis Desai | ECON | [place] | | | | | [address] | | + + + + + | Mila Desai | ECON | Unknown | | + + + + + Care Team Providers + +------+ + | Care Scrap Collector Name | Role | Phone | + [...] + + | Closed | Specialty | Vascular | Diagnoses | [place], | Field, | | | Services | Surgery | | Riky | Shaji Francois, | | | Required | | 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 | , FACS [address] | | | | | 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 | [address] | | | | | visceral | [address] | [place], | | | | | artery (HCC) | FLOOR | [place] [address] | | | | | | [place] | Phone: | | | | | | [address] | [phone] | | | | | | Phone: | Fax: | | | | | | [phone] | [phone] | | | | | | Fax: | | | | | | | [phone] | | +--------+ + + + + [...] + + | 08/17/ | Hospital | [facility] | Faby Rodriguez MD | 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 | | | | SURGICAL [address] | [place] [address] | (HCC); Anemia, | | 08/23/ | | Ave [place] | [phone] | unspecified type; | | 2018 | | [address] | | Chronic obstructive | | | | [phone] | Vikram James, | pulmonary disease, | | | | | [address] | unspecified COPD | | | | | [place], [place] | type ([facility]); | | | | | [address] | Essential | | | | | | hypertension; | | | | | Nadia Sutton MD | Hemorrhagic shock | | | | | [address] | ([facility]); Acute | | | | | [address]TH [address]LO[address] [place], | posthemorrhagic | | | | | [place] [address] | anemia; Acute | | | | | [phone] | respiratory failure | | | | | | with hypoxia and | | | | | Riky Rodriguez | hypercapnia ([facility]) | | | | | MD Jarocho [address] | | [address] | | | | | | [place] [address] | | | | | | [phone] | | | | | | | [...] differen t from the original. Patient: Amy Coleamn Date of : 1955 PCP: Bry Vaughn DO Admit Date: 08/17/2017 Discharge Date: 08/23/2017 Date of Service: 08/23/2017 Issues Requiring Follow Up after Discharge: Holding baby aspirin for two weeks following bleeding event. Arrange future follow up with vascular surgey Follow Up Appointments: Bry Vaughn DO [address] [address] Schedule an appointment as soon as possible for a visit Discharge Disposition: Home Consultants This Admission: Vascular surgery, General Surgery, Interventional Radiology Hospital Course: Amy Coleman is a 62-year-old female with past medical history significant for COPD, CAD s/p NSTEMI ( no PCI), who was transferred to [facility] for ICU care from [facility] on 08/17 wh ere she was intubated [...] [facility]. She is being discharged today in [...] this chart may have been created with [employer] voice recognition software. Occasi onal wrong-word or [...] the inside of your colon. Your provi vandnaa can also take a tiny tissue sample [...] urine. Belly (abdominal) pain Date Last Reviewed: 09/12/201519990024-1378 [employer]. [address] [place] [address]. All righ ts reserved. This information is [...] You may go home the odilia e day. Or you may stay in the hospital or surgery center one or more nights. Follow any inst ructions you have been given about recovering at home. Date Last Reviewed: 02/12/201619998765-0930 [employer] [facility]. [address] [place] [address], [place] [address]. All righ ts reserved. This information is not intended as a substitute for professional medical care. Always follow your healthcare professional's instructions. [facility] Patient Belongings Amy Coleman 1955 Patient Signature: Clinician/Guest Specialist Signature: Discharge Instructions: After Your Surgery You ve just had surgery. During surgery, you were given medicine called anesthesia to key p you relaxed and free of pain. [...] help you feel better. Take it as rosalie emeryore pain becomes severe. Also, ask your healthcare [...] interact with your prescription medicines or other lumr-bho-efdwqif (OTC) medicines. Some prescription medicines have acetaminophen and other ingredients.Using both prescription a nd OTC acetaminophenfor paincan cause you to overdose. Readthe labels on your OTC [facility]. This will help youto clearly know [...] of taking these medicines. Date Last Reviewed: 02/12/201619996604-9672 [employer]. [address] [place], [place] [address]. All righ ts reserved. This information is [...] as of this encounter Progress Notes Selin Siegel, DIRECTOR DANCE - 08/22/2017 2:55 PM PDTSocial Work: Pt is a 62 year old female from [place], [place] with [facility] Medicaid insurance. SW received referral for d/c planning on pt. Reviewed pt's chart and did not identify any d /c needs. SW met with pt and she anticipates that she will d/c home tomorrow. Her daughter i n law will pick her up and take her home. She has no concerns re: d/c planning other then e would like to wear an adult [...] ( no PCI), who was transferred to [facility] for ICU care from [facility] on 08/17 wh ere she was intubated [...] Objective: Vital Signs 08/20 699 - 08/21 - 08/22 0559 08/22 699 - 08/22 0833 Most Rec ent Temp (C) 35.9 - 36.7 36.2 - 36.9 36.2 (97.1) Pulse 67 - 95 74 - 93 82 Resp - 18 16 - 20 18 BP 101/77 [...] - Single Lumen 05/08/17 0130 Left Forearm rofu-iaq-pxzitw catheter syst em 20 gauge 106 days [...] this chart may have been created with [employer]ounder voice recognition software. Occasi onal wrong-word or sound-alike substitutions may have occurred due to the inherent lobo itations of voice recognition software. Please read the chart carefully and recognize, using context, where these substitutions have occurred Krzysztof Ordaz MD - 08/21/2017 5:47 PM PDTFormatting of this note might be different f rom the original. [facility] Surgery Team Hospital Day: 5 [...] Signed by: Krzysztof Montaño MD, 08/21/2017 17:47 [facility] ope, Riky Avendaño MD - 08/21/2017 9:49 AM PDT Patient: Amy Coleman Date of : 1955 Admit Date: 08/17/2017 Date of Service: 08/21/2017 PCP: Bry Vaughn DO Hospital Day: Hospital Day: 5 Hospital Course: Amy Coleman is a 62-year-old female with past medical history significant for COPD, CAD s/p NSTEMI ( no PCI), who was transferred to [facility] for ICU care from [facility] on [place]/17 wh ere she was intubated [...] failure with hypercarbia Status post extubation on 6/8 Not on home oxygen, down to 1 [...] - Single Lumen 05/08/17 0130 Left Forearm tlwq-njx-czkqkk catheter syst em 20 gauge 105 days [...] Hold Result Value Ref Range Product Code B7093S33 UNIT # [id number] UNIT ABO O UNIT RH POS Unit Status IS Blood Product Expiration Date and Time Product Blood Type Barcode 5100 Product Code G0750E36 UNIT # [id number] UNIT ABO O UNIT RH POS Unit Status RE Blood Product Expiration Date and Time [id number] Product Blood Type Barcode 5100 Hemoglobin and [...] this chart may have been created with [employer] voice recognition software. Occasi onal wrong-word or sound-alike substitutions may have occurred due to the inherent lobo itations of voice recognition software. Please read the chart carefully and recognize, using context, where these substitutions have occurred Krzysztof Ordaz MD - 08/20/2017 12:23 PM PDTFormatting of this note might be different f rom the original. [facility] Surgery Team Hospital Day: 4 DATE/TIME: 08/20/2017 [...] Signed by: Krzysztof Montaño MD, 08/20/2017 12:23 [facility] Nadia Blount MD - 08/20/2017 10:02 AM PDT Patient: Amy Coleman Date of : 1955 Admit Date: 08/17/2017 Date of Service: 08/20/2017 PCP: Bry Vaughn DO Hospital Day: Hospital Day: 4 Hospital Course: Amy Coleman is a 62-year-old female with past medical history significant for COPD, CAD s/p NSTEMI ( no PCI), who was transferred to [facility] for ICU care from [facility] on 08/17 wh ere she was intubated [...] Objective: Vital Signs 08/18 699 - 08/19 - 08/20 0659 08/20 699 - 08/20 [...] - Single Lumen 05/08/17 0130 Left Forearm sjsv-yxo-qjzvcd catheter syst em 20 gauge 104 days [...] this chart may have been created with [employer]ounder voice recognition software. Occasi onal wrong-word or sound-alike substitutions may have occurred due to the inherent lobo itations of voice recognition software. Please read the chart carefully and recognize, using context, where these substitutions have occurred mnadeem, Vikram Mayes MD - 08/20/2017 5:28 AM PDT Critical Care Progress Note [facility] Date of Service: 08/20/2017 Admit Date: [...] NSTEMI (no PCI, mild disease) presented to [facility] on 08/16 with shortness of breath and [...] NSTEMI (no PCI, mild disease) presented to [facility] on 08/16 with shortness of breath and [...] Today: Yes Extubated Bowel Function: Last BM: DOCTOR OF RADIOLOGY. Scheduled bowel meds started. Indwelling Bladder Catheter [...] LABORATORY: I personally reviewed recent labs in [facility] and ordered appropriate follow-up domonique dies. Recent [...] Component Value Date PHART 7.36 (L) 08/19/2017 TST0VEI 44 (H) 08/19/2017 PO2ART 91 (H) 08/19/2017 [id number] 13.3 (L) 08/19/2017 VHW9OMF 25.2 08/19/2017 BEART -0.2 08/19/2017 CARBOXYHGB 1.0 [...] this chart may have been created with [employer] voice recognition software. Occasi onal wrong-word or sound-alike substitutions may have occurred due to the inherent lobo itations of voice recognition software. Please read the chart carefully and recognize, using context, where these substitutions have occurred. alKrzysztof solomon MD - 08/19/2017 2:04 PM PDT [facility] Surgery Team Hospital Day: 3 DATE/TIME: [...] Signed by: Krzysztof Montaño MD, 08/19/2017 14:05 [facility] Jarocho Saldaña RRT - 08/19/2017 10:10 AM PDT 08/19/17 1009 Respiratory Assessment Interventions ~ Patient Assessment ~ Multi-disciplinary Rounds Continue current care. Q4 DuonebsElectronically signed by Jarocho Luther RRT at 2017 10:10 AM Volodymyr Peña RRT - 08/19/2017 9:19 AM PDTPt extubated to 3 lpm NC at 0 900. Pt resp pattern is shallow regular w/ mild WOB. BS clear and diminished, equal bilatera l. Pt demonstrated good vocal tone and no stridor present. Pt has a good Productive cough, secretions minimal. [place] Cole PA-C - 08/19/2017 7:09 AM PDTFormatting of this note might be different from t he original. VASCULAR SURGERY PROGRESS NOTE Seen by [place] Cole PA-C on 08/19/2017 (Hospital Day: 3) 1 Day Post-Op PATIENT NAME: Amy Coleman DATE OF : 1955 MED RECORD: [id number] ASSESSMENT/PLAN PROCEDURE: mesenteric angiogram 08/18 ASSESSMENT: 1. [...] mg Intravenous Daily IV: fentaNYL 50 mcg/hr (08/19/17 0700) norepinephrine 4 mcg/min (08/19/17 07) propofol infusion Stopped (08/19/17 0600) vasopressin (PITRESSIN) infusion (shock) Stopped (08/18/17 1100) [...] this interval not displayed. Recent Labs Lab 08/19/1761408/19/17 0306 08/18/17 1156 08/18/17 0523 NA -- 144 -- -- -- 140 K 4.0 3.9 < > 5.0 -- 3.8 BUN -- 8 -- -- -- 11 CREA -- 0.57 -- -- -- 0.62 MG -- -- -- -- -- 2.4 GLU -- 105* -- 118* < > 120* < > = values in this interval not displayed. Recent Labs Lab 08/19/1761408/18/17 2019 PHART 7.25* 7.34* PO2ART 58* 139* [id number] 53* 39 BEART -4.1* -4.5* EXAM: General [...] 6:50 AM PDT Critical Care Progress Note [facility] Date of Service: 08/19/2017 Admit Date: [...] NSTEMI (no PCI, mild disease) presented to [facility] on 08/16 with shortness of breath and [...] NSTEMI (no PCI, mild disease) presented to [facility] on 08/16 with shortness of breath and [...] Today: Yes Extubated Bowel Function: Last BM: DOCTOR OF RADIOLOGY. Scheduled bowel meds started. Indwelling Bladder Catheter [...] LABORATORY: I personally reviewed recent labs in [facility] and ordered appropriate follow-up domonique dies. Recent [...] 08/18/17201808/18/17 1156 08/18/17 0523 08/17/17 2239 08/17/17 2235 NA 144 -- -- 140 -- 139 [...] -- -- 3.3 Recent Labs Lab 08/19/17 0306 08/18/17 2328 08/18/17 2019 LACTATE 1.8 1.8 2.7* Recent Labs Lab 08/17/17 2241 INR 1.3* No results for input(s): TROPONIN, BNP in the last 168 hours. Invalid input(s): CKTOTAL Lab Results Component Value Date PHART 7.34 (L) 08/18/2017 YLD8OPS 39 08/18/2017 PO2ART 139 (H) 08/18/2017 A1DPQEFUQ 11.2 (L) 08/18/2017 HPM1ULW 21.2 (L) 08/18/2017 BEART -4.5 (L) 08/18/2017 [...] this chart may have been created with [employer]ounder voice recognition software. Occasi onal wrong-word or [...] embolization and occlusion of femoral vessel s Ashley Martines ARNP - 0 08/18/2017 6:28 AM PDT Critical Care Progress Note [facility] Date of Service: 08/18/2017 Admit Date: 08/17/2017 Pt. Name: Amy Coleman Age: 62 y.o. : 1955 Code Status: TBD - Full Code by default Hospital Day: 2 ICU Admit Date: 08/17/2017 Reason for Critical Care: hemorrhagic shock, respiratory failure Provider Teams: Primary: ICU - primary, Dr James Consult: Dr Oglesby, GALI Consult: Vascular surgeon (JC) Background/Hospital Course: 62F w/ PMH COPD, CAD (NSTEMI in setting of respiratory arrest last Apr, cath showed mild di sease only, no PCI) presented to [facility] ([place]) initially w/ c/o SOB and was intubated for acute on chronic respiratory failure (ABG prior to intubation: 7.0/98/217/26). Pt then developed hypotension/HD instability for which she required 2 pressors. hgb fell from 15-- >4 and pt rc'd 6u PRBCs, 2uFFP, 1u PLT, 5L NS. CT abdomen showed RP hematoma and pt was tra nsferred to [facility] for further eval of this. 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 Gen surgery consulted as w ell as vascular to determine best approach to vascular issues given high potential for re bl eed. Summary of Significant Events: 08/17: Admitted to [facility]. Intubated. To IR 08/18: Awake, alert. NE 10mcg/Vaso off. Assessment & Plan Today's Plan: Discuss plan w/ vascular, IR, gen surg PSV but hold on extubation until interventional plan determined Trend labs (H&H Q6hrs) Problem List: Hypovolemic/hemorrhagic shock --2/2 large RP bleed. Imaging showed abnormal L/R gastric artery w/ many areas of aneurysm al dilatation. IR concerned that he would need to embolize [...] l plan set Bowel Function: Last BM: DOCTOR OF RADIOLOGY. PRN bowel meds available. Indwelling Bladder Catheter Indication: Vasopressors for hemodynamic instability Subjective 24hr interval history: Transferred from [place], [place] to [facility] Afebrile Rc'd 6u PRBCs, 2u FFP, 1u [...] LABORATORY: I personally reviewed recent labs in [facility] and ordered appropriate follow-up domonique dies. Recent Labs Lab 08/18/17 0508/18/17 0523 08/18/17 0209 08/17/17224008/17/17 2235 WBC -- 19.6* 19.0* -- -- 18.5* HGB 11.7 11.4 11.6 -- < > 11.8 HCT 35.8 32.5* 33.4* -- < > 33.6* PLT -- 159 147* 172 -- 172 < > = values in this interval not displayed. Recent Labs Lab 08/18/17 0508/17/17223808/17/17 223 NA 140 -- 139 K 3.8 3.7 3.9 CL 109 109 109 CO2 20* -- 19* BUN 11 -- 12 CREA 0.62 -- 0.64 CALCIUM 8.5 -- 6.9* ALT -- -- 290* AST -- -- 240* ALKPHOS -- -- 53 BILITOT -- -- 0.4 ALBUMIN -- -- 3.3 Recent Labs Lab 08/18/17526 LACTATE 2.0* Recent Labs Lab 08/17/172240 INR 1.3* No results for input(s): TROPONIN, BNP in the last 168 hours. Invalid input(s): CKTOTAL Lab Results Component Value Date PHART 7.39 08/18/2017 ZVA4CQF 32 08/18/2017 PO2ART 108 (H) 08/18/2017 P5POTGPAH 16.2 08/18/2017 WMT0WHG 19.4 (L) 08/18/2017 BEART -5.6 (L) 08/18/2017 [...] this chart may have been created with [employer]ounder voice recognition software. Occasi onal wrong-word or sound-alike substitutions may have occurred due to the inherent lobo itations of voice recognition software. Please read the chart carefully and recognize, using context, where these substitutions have occurred. Associated attestation - Vikram James MD - 08/18/2017 8:56 AM PDT Physician Attestation Note [facility] Date of Service: 08/18/2017 Reason for critical care: Hemorrhagic shock secondary to intra-abdominal bleeding I reviewed and discussed the patient history, assessment and plan with the KOLE, during pers onal discussion and/or multi-disciplinary rounds. Acute issues or additions to plan of care: 62 year old lady with PMH of COPD, CAD s/p NSTEMI (no PCI, mild disease) presented to [facility] on 08/16 with shortness of breath and [...] this chart may have been created with [employer]ounder voice recognition software. Occasi onal wrong-word or [...] riginal. . Critical Care-Care Progress Note Update [facility] Date of Service: 08/17/2017 Admit Date: [...] called and discussed plans with son, Joseluis ([phone]). He expre ssed understanding and wanted to [...] this chart may have been created with [employer]ounder voice recognition software. Occasi onal wrong-word or [...] | | | | | | [address] [place] [place], [place] | | | | | | [address] | | | | | | | [...] +--------+ + + + | IR ANGIO ABDOMEN / | | 08/18/2017 | GI BLEED | | | PELVIC / VISCERAL / | | 2:44 PM | | | | RENAL | | PDT | | | + [...] | | MEDICAL | | | | [facility] [address], | | CENTER | | | | [place] [address] | | LABORATORY | | | | [...] + | [facility] | [address] | [place] [address] | | | HEART MEDICAL CENTER | [...] [facility] | | | | Performed by [facility] [address] | | SACRED | | | | [address] [place] | | HEART | | | | [address] | | MEDICAL | | | | [...] + + | GIL[facility]O NICHOLAS | [address] | [place] [address] | | | [facility] | | | | | LABORATORY [place] [...] | | MEDICAL | | | | [facility] [address], | | CENTER | | | | [place] [address] | | LABORATORY | | | | [...] + + | GILBERTO NICHOLAS | [address] | [place] [address] | | | [facility] | | | | | CELESTE REYEZ [...] [facility] | | | | by [facility] [address], | | SACRED | | | | [place] [address] | | HEART | | | |Performed by [facility] [address], [place] [address] | | MEDICAL | | | | [...] + + | GILBERTO NICHOLAS | [address] | [place] [address] | | | [facility] | | | | | CELESTE REYEZ [...] [facility] | | | | Performed by [facility] [address] | | SACRED | | | | [address] [place] | | HEART | | | | [address] | | MEDICAL | | | | [...] + + + + + | ANAODILIASneha DANYJAD | [address] | [place] [address] | | | [facility] | | | | | LABORATORY [place] [...] [facility] | | | | Performed by [facility] [address] | | SACRED | | | | [address] [place], [place] | | HEART | | | | [address] | | MEDICAL | | | | [...] [address] | [place] [address] | | | [facility] | | | | | LABORATORY [place] | | | | + + + + + Red Blood Cells (PRBC) - Crossmatch and Hold (08/21/2017 2:48 AM PDT) + + + + + + | Component | Value | Ref Range | Performed | Pathologist | | | | | At | Signature | + + + + + + | Product | [id number] | | REFERENCE | | | Code | | | [facility] | | | | | | [facility] | | | | | | [facility] | | | | | | [facility] | | | | | | [facility]ENTER | | + + + + + + | UNIT # | [id number] | | REFERENCE | | | | | | [facility] | | | | | | [facility] | | | | | | [facility] | | | | | | BLOOD | | | | | | CENTER | | + + + + + + | UNIT ABO | O | | REFERENCE | | | | | | [facility] | | | | | | [facility] | | | | | | [facility] | | | | | | BLOOD | | | | | | CENTER | | + + + + + + | UNIT RH | POS | | REFERENCE | | | | | | [facility] | | | | | | [facility] | | | | | | [facility] | | | | | | BLOOD | | | | | | CENTER | | + + + + + + | Unit Status | IS | | REFERENCE | | | | | | [facility] | | | | | | [facility] | | | | | | [facility] | | | | | | BLOOD | | | | | | CENTER | | + + + + + + | Blood | [id number] | | REFERENCE | | | Product | | | [facility] | | | Expiration | | | [facility] | | | Date and | | | [facility] | | | Time | | | BLOOD | | | | | | CENTER | | + + + + + + | Product | [id number] | | REFERENCE | | | Blood Type | | | [facility] | | | Barcode | | | [facility] | | | | | | [facility] | | | | | | BLOOD | | | | | | CENTER | | + + + + + + | Product | [id number] | | REFERENCE | | | Code | | | [facility] | | | | | | [facility] | | | | | | [facility] | | | | | | BLOOD | | | | | | CENTER | | + + + + + + | UNIT # | [id number] | | REFERENCE | | | | | | [facility] | | | | | | [facility] | | | | | | [facility] | | | | | | BLOOD | | | | | | CENTER | | + + + + + + | UNIT ABO | O | | REFERENCE | | | | | | [facility] | | | | | | [facility] | | | | | | [facility] | | | | | | BLOOD | | | | | | CENTER | | + + + + + + | UNIT RH | POS | | REFERENCE | | | | | | [facility] | | | | | | [facility] | | | | | | [facility] | | | | | | BLOOD | | | | | | CENTER | | + + + + + + | Unit Status | RE | | REFERENCE | | | | | | [facility] | | | | | | [facility] | | | | | | [facility] | | | | | | BLOOD | | | | | | CENTER | | + + + + + + | Blood | [id number] | | REFERENCE | | | Product | | | [facility] | | | Expiration | | | [facility] | | | Date and | | | [facility] | | | Time | | | BLOOD | | | | | | CENTER | | + + + + + + | Product | [id number] | | REFERENCE | | | Blood Type | | | [facility] | | | Barcode | | | [...] + + + | Specimen Expiration Date: [id number] | REFERENCE LAB | | | [facility] | | | [facility] | | | [facility] | + + + + + + + + | Performing | Address | City/State/Zipcode | Phone Number | | Organization | | | | + + + + + | REFERENCE LAB | [address] | [place] | [phone] | | [facility] | | | | | [facility] [...] [facility] | | | | Performed by [facility] [address] | | SACRED | | | | [address] [place] [place] | | HEART | | | | [address] | | MEDICAL | | | | [...] + + | [facility] | [address] | [place] [address] | | | [facility] | | | | | LABORATORY [place] [...] [facility] | | | | Performed by [facility] [address] | mmol/L | SACRED | | | | [address], [place] | | HEART | | | | [address] | | MEDICAL | | | | [...] + + | GILBERTO NICHOLAS | [address] | [place] [address] | | | [facility] | | | | | LABORATORY [place] [...] [facility] | | | | Performed by [facility] [address] | mmol/L | SACRED | | | | [address] [place] | | HEART | | | | [address] | | MEDICAL | | | | [...] [facility] | [address] | [place] [address] | | | [facility] | | | | | LABORATORY [place] [...] [facility] | | | | Performed by [facility] Alexandra Santiago | | SACRED | | | | [place] | | HEART | | | | [address] | | MEDICAL | | | | [...] + + | [facility] | [address] | [place] [address] | | | HEART [facility] | | | | | LABORATORY [...] 13.9 | 12.0 - 14.2 sec | [facility] | | | Time | | | [...] CENTER | | | | 3.5Performed by [facility] [address] | | LABORATORY | | | | [address], [place] | | [place] | | | | [address] | | | | + + + + + + + + | Specimen | + + | Blood specimen | | (specimen) | + + + + + + + | Performing | Address | City/State/Zipcode | Phone Number | | Organization | | | | + + + + + | [facility] | [address] | [place] [address] | | | [facility] | | | | | LABORATORY CERNER [...] [facility] | | | Venous | by [facility] [address], | mmol/L | SACRED | | | | [place] [address] | | HEART | | | |Performed by [facility] [address], [place] [address] | | MEDICAL | | | | [...] + + | GILBERTO NICHOLAS | [address] | [place] [address] | | | [facility] | | | | | LABORATORY [place] [...] Estimated | 108Comment: eGFR<60 | >=90 | [facility] | | | GFR | consistent with impaired | mL/min/1.73m2 | SACRED | | | | kidney | | HEART | | | | function.Performed by | | MEDICAL | | | | WS [address], | | CENTER | | | | [place] [address] | | LABORATORY | | | | [...] + + | GILBERTO NICHOLAS | [address] | [place] [address] | | | [facility] | | | | | LABORATORY [...] | [facility] | | | | [facility] [address] [facility] [address], | | SACRED | | | | [place] [address] | | HEART | | | |Performed by [facility] [address], [place] [address] | | MEDICA L | | | [...] + + | GILBERTO NICHOLAS | [address] | [place] [address] | | | [facility] | | | | | CELESTE REYEZ [...] + + | Performing | Address | City/State/[facility] | Phone Number | | Organization | [...] | [facility] | | | | by [facility] [address], | mmol/L | SACRED | | | | [place] [address] | | HEART | | | |Performed by [facility] [address], [place] [address] | | MEDICAL | | | | [...] + + | GILBERTO NICHOLAS | [address] | [place] [address] | | | [facility] | | | | | LABORATORY CERNER [...] mg/dL | [facility] | | | | [facility] [address], | | SACRED | | | | [place] | | HEART | | | |Performed by [facility] [address] [facility] [address], [place] | | MEDICAL | | | [...] + + | [facility] | [address] | [place], [place] | | | [facility]ICAL [facility]ENTER [...] 7.36 (L) | 7.37 - 7.47 | [facility] | | | Arterial | | | SACRED | | | | | | HEART | | | | | | MEDICAL | | | | | | CENTER | | | | | | LABORATO RY | | | | | | CLAUDIANER | | + + + +--------- ----+ [...] CE | | | ARTERIAL | by [facility] [address], | | SACRED | | | | [place] [address] | | HEART | | | |Performed by [facility] [address], [place] [address] | | MEDICAL | | | | [...] + | [facility] | [address] [facility] [address] [facility] [address] | [place] [address] | | | [facility] | | | | | LABORATORY [place] [...] [facility] | | | | Performed by [facility] [address] | | SACRED | | | | [address] [place] | | HEART | | | | [address] | | MEDICAL | | | | [...] + + | GILBERTO NICHOLAS | [address] | [place] [address] | | | [facility] | | | | | LABORATORY [place] [...] | 7.40 | 7.37 - 7.47 | YUNIOR CE [...] CE | | | ARTERIAL | by [facility] [address], | | SACRED | | | | [place] [address] | | HEART | | | |Performed by [facility] [address], [place] [address] | | MEDICAL | | | | [...] + + + + + | ANAODILIASneha YU | [address] | [place] [address] | | | [facility] | | | | | LABORATORY [place] | | | | + + + + + PADMA Miller, Quant (08/19/2017 10:18 AM PDT) + + + [...] + + + + + | MANJU UTILIZATION COORDINATOR AB | <0.2 | 0.0 - 0.9 [...] | | | | | 20%Performed At: [facility] | | | | | | [facility] [address] | | | | | | [address] | | | | | | [place] | | | | | | [id number] David J | | | | | | Ph:[phone] | | | | + + + + + + + + | Specimen | + + | Blood specimen | | (specimen) | + + + + + + + | Performing | Address | City/State/Zipcode | Phone Number | | Organization | | | | + + + + + | GILBERTO NICHOLAS | [address] | [place] [address] | | | [facility] | | | | | LABORATORY [place] [...] [facility] | | | Arterial | by [facility] [address], | mmol/L | SACRED | | | | [place] [address] | | HEART | | | |Performed by [facility] [address], [place] [address] | | MEDICAL | | | | [...] + + | GILBERTO NICHOLAS | [address] | [place] [address] | | | [facility] | | | | | LABORATORY CERNER [...] 7.36 (L) | 7.37 - 7.47 | PROVID[facility] [...] CE | | | ARTERIAL | by [facility] [address], | | SACRED | | | | [place] [address] | | HEART | | | |Performed by [facility] [address], [place] [address] | | MEDICAL | | | | [...] YU | [address] | [place] [address] | | | [facility] | | | | | LABORATORY CERNER [...] [facility] | | | | Performed by [facility] [address] | | SACRED | | | | [address], [place] | | HEART | | | | [address] | | MEDICAL | | | | [...] [address] | [place] [address] | | | HEART [facility] | | | | | LABORATORY [...] MEDICAL | | | | Performed by [facility] [address] | | CENTER | | | | [address] [place] | | LABORATORY | | | | [address] | | CERNER | | | | [...] + + | GILBERTO NICHOLAS | [address] | [place] [address] | | | [facility] | | | | | LABORATORY [...] | | | Arterial | Performed by [facility] [address] | mmol/L | SACRED | | | | [address] [place], [place] | | HEART | | | | [address] | | MEDICAL | | | | [...] + + | GILBERTO NICHOLAS | [address] | [place] [address] | | | [facility] | | | | | LABORATORY [place] [...] | [facility] | | | | by [facility] [address], | mmol/L | SACRED | | | | [place] | | HEART | | | |Performed by [facility] [address], [place] | | MEDICAL | | | [...] SACRED | [address] | [place] | | | HEART MEDICAL CENTER [...] HEART | | | | called to Crystal C, RN | | MEDICAL | | | [...] | | | ARTERIAL | Performed by [facility] [address] | | SACRED | | | | [address] [place] | | HEART | | | | [address] | | MEDICAL | | | | [...] + | GILBERTO NICHOLAS | [address] [facility] [address] [facility] [address] | [place] [address] | | | [facility] | | | | | LABORATORY CERNER [...] [facility] | | | | Performed by [facility] [address] | | SACRED | | | | [address] [place] | | HEART | | | | [address] | | MEDICAL | | | | [...] + + | GILBERTO NICHOLAS | [address] | [place] [address] | | | [facility] | | | | | LABORATORY [place] [...] [facility] | | | Venous | by [facility] [address], | mmol/L | SACRED | | | | [place] | | HEART | | | |Performed by [facility] [address], [place] | | MEDICAL | | | [...] SACRED | [address] | [place] | | | [facility] | | | | | LABORATORY CERNER [...] | | MEDICAL | | | | [facility] [address], | | CENTER | | | | [place] [address] | | LABORATORY | | | | | | CERNER | | + + + + + + + + | Specimen | + + | Blood specimen | | (specimen) | + + + + + + + | Performing | Address | City/State/Zipcode | Phone Number | | Organization | | | | + + + + + | [facility] | [address] | [place] [address] | | | [facility] | | | | | LABORATORY CERNER [...] | | HEART | | | | [place] [facility] | | MEDICAL | | | [...] IOM | | | | | | ([place] [facility]). | | | | | [...] [facility] | | | | | | [address] | | | | | | [address] [place], [place] | | | | | | [phone] Daniel | | | | | | L Ph:[phone] | | | | + + + + + + + + | Specimen | + + | Blood specimen | | (specimen) | + + + + + + + | Performing | Address | City/State/Zipcode | Phone Number | | Organization | | | | + + + + + | GILBERTO NICHOLAS | [address] | [place] [address] | | | [facility] | | | | | LABORATORY CERNER [...] [facility] | | | Venous | by [facility] [address], | mmol/L | SACRED | | | | [place] [address] | | HEART | | | |Performed by [facility] [address], [place] [address] | | MEDICAL | | | | [...] + + | [facility] | [address] | [place] [address] | | | [facility] | | | | | LABORATORY CERNER [...] PROVID [facility] | | | Cells | [facility] [address], | | SACRED | | | | [place] | | HEART | | | |Performed by [facility] [address], [place] | | MEDICA L | | | [...] + + | [facility]IA[facility] | [address] | [place], [place] | | | [facility] | | | | | LABORATORY CERNER [...] | [facility] | | | | by [facility] [address], | mmol/L | SACRED | | | | [place] [address] | | HEART | | | |Performed by [facility] [address], [place] [address] | | MEDICAL | | | | [...] + + | GILBERTO NICHOLAS | [address] | [place] [address] | | | [facility] | | | | | LABORATORY [place] [...] | | | Arterial | Performed by [facility] [address] | mmol/L | SACRED | | | | [address] [place] | | HEART | | | | [address] | | MEDICAL | | | | [...] + + | GILBERTO SACRJAD | [address] | [place] [address] | | | [facility] | | | | | LABORATORY CERNER [...] E | | | Normalized | by [place] [address] [address], | mg/dL | SACRED | | | | [place] [address] | | HEART | | | |Performed by [facility] [address], [place] [address] | | MEDICAL | | | | [...] + + | GILBERTO NICHOLAS | [address] | [place] [address] | | | [facility] | | | | | LABORATORY [place] [...] 7.34 (L) | 7.37 - 7.47 | YUNIOR [...] 39 | 32 - 43 mmHg | Y[facility]IOR CE | | | Arterial [...] (H) | 65 - 80 mmHg | [facility] CE | | | Arterial [...] CE | | | ARTERIAL | by [facility] [address], | | SACRED | | | | [place] [address] | | HEART | | | |Performed by [facility] [address], [place] [address] | | MEDICAL | | | | [...] [address] | [place] [address] | | | [facility] | | | | | LABORATORY [place] [...] | | | Venous | Performed by [facility] [address] | mmol/L | SACRED | | | | [address] [place] | | HEART | | | | [address] | | MEDICAL | | | | [...] + + | ANALENO NICHOLAS | [address] | [place] [address] | | | [facility]ICAL [facility]ENTER | [...] | [facility] | | | | by [facility] [address], | | SACRED | | | | [place] [address] | | HEART | | | |Performed by [facility] [address], [place] [address] | | MEDICAL | | | | | | CENTER | | | | | | LABORATORY | | | | | | CERNER | | + + + + + + + + | Specimen | + + | Blood specimen | | (specimen) | + + + + + | Narrative | Performed At | + + + | sst | [facility] | | | [facility] | [facility] | [facility] CENTER | | | LABORATORY | | | [place] | + + + + + + + + | Performing | Address | City/State/Zipcode | Phone Number | | Organization | | | | + + + + + | GILBERTO NICHOLAS | [address] | [place] [address] | | | [facility]ICAL [facility]ENTER | [...] [facility] | | | | Performed by [facility] Alexandra W[address]lma | | SACRED | | | | [address] [place] | | HEART | | | | [address] | | MEDICAL | | | | [...] + + + + + | ANAODILIASneha SACRJAD | [address] | [place] [address] | | | [facility] | | | | | CELESTE REYEZ [...] Seldinger technique, a 6 | | | Burmese sheath was positioned into the right common femoral artery and | | | attached to a flush system. A 5 Burmese Scott 2 catheter was | | | then positioned through a 6 Burmese guiding catheter an utilized to | | [...] | Hemostasis was achieved with a 6 Burmese Angio-Seal device. | | | Maximum sterile [...] | | standard Seldinger technique, a 6 Burmese sheath was positioned into | | the right common femoral artery and attached to a flush system. | | | | A 5 Burmese Scott 2 catheter was then positioned through a 6 Burmese | | guiding catheter an utilized to [...] performed. Hemostasis was achieved with a 6 Burmese | | Angio-Seal device. | | | [...] | | | | Signed by: MD Ha Christopher | + + + +---------+ + [...] [facility] | | | | Performed by [facility] [address] | | SACRED | | | | [address] [place] | | HEART | | | | [address] | | MEDICAL | | | | [...] [address] | [place] [address] | | | [facility] | | | | | LABORATORY [...] | | | Venous | Performed by [facility] [address] | mmol/L | SACRED | | | | [address], [place] | | HEART | | | | [address] | | MEDICAL | | | | [...] + + | GILBERTO NICHOLAS | [address] | [place] [address] | | | [facility] | | | | | LABORATORY [place] [...] | | | Normalized | Performed by [facility] [address] | mg/dL | SACRED | | | | [address] [place] | | HEART | | | | [address] | | MEDICAL | | | | [...] + + | ANALENO NICHOLAS | [address] | [place] [address] | | | [facility] | | | | | LABORATORY CERNER [...] | [facility] | | | | by [facility] [address], | mmol/L | SACRED | | | | [place] [address] | | HEART | | | |Performed by [facility] [address], [place] [address] | | MEDICAL | | | | [...] + + + + + | PROVIDEODILIAE SACRJAD | [address] | [place] [address] | | | [facility] | | | | | LABORATORY CERNER [...] PROVID[facility]ILIAE | | | | Performed by [facility] [address] | | SACRED | | | | [address], [place] | | HEART | | | | [address] | | MEDICAL | | | | [...] + + | GILBERTO NICHOLAS | [address] | [place] [address] | | | [facility] | | | | | LABORATORY [place] [...] | 7.40 | 7.31 - 7.41 | [facility] | | | | [...] (L) | 41 - 51 mmHg | [facility] | | | Venous [...] | ROUTE | IMVComment: Performed | | ANAN CE | | | | by [facility] [address], | | SACRED | | | | [place] [address] | | HEART | | | |Performed by [facility] [address], [place] [address] | | MEDICAL | | | | [...] + + | [facility]E [facility] | [address] | [place] [address] | | | [facility] | | | | | LABORATORY [...] [facility] | | | | Performed by [facility] [address] | | SACRED | [...] [address] | [place] [address] | | | HEART MEDICAL CENTER | [...] | | | REPORT | Performed by [facility] [address] | | SACRED | | | | [place] | | HEART | | | | [address] | | MEDICAL | | | | [...] + | GILBERTO NICHOLAS | [address] [place] [address]. | [place] [address] | | | [facility] | | | | | LABORATORY CERNER [...] | | | REPORT | Performed by [facility] [address] | | SACRED | | | | [address], [place] | | HEART | | | | [...] SACRED | [address] | [place] [address] | | | [facility]ICAL CENTER | [...] Number [id number] Patient Number | | | [id number] Date of Study 08/18/2017 Visit | | | Number [id number] | | | Referring Physician BRI Sánchez Date of | | | 1955 Numerical Tool Programmer Julien Zamora Age | | | 62 year(s) Interpreting | | | [place] [facility] | | | Steel Chipper | | | Mara Patton MD Gender | | | Female Nurse | | | Stress Guest Specialist Procedure Type of Study TTE procedure: | [...] Atrium Left Ventricle EF | | | Bevsbnppk63% | | | Electronically signed by ShweebMara kennedy MD(Interpreting physician) on | | | 08/18/2017 [...] | | | | | | EF Rrtmrcyqb96% | | | | | + + --+ + + | Procedure Note | + + | Avelino, Rad Results In - 08/18/2017 11:38 AM PDT Transthoracic Echocardiography Report | | (TTE) Demographics Patient Name MARCELLA MONTAÑO I Room Number 258 Patient | | Number [id number] Date of Study 08/18/2017 Visit Number [id number] | | Referring Physician BRI Sánchez Date of | | 1955 Numerical Tool Programmer Julien Zamora Age 62 year(s) | | Interpreting [place] [facility] Steel Chipper | | Mara Patton MD Gender | | Female Nurse Stress TechnicianProcedureType of | | Study TTE procedure: ECHO Complete, Add-on Items, COLOR DOPPLER, COMPLETE | | DOPPLER.Procedure dateDate: 08/18/2017Start: 07:21 AMTechnical Quality: Adequate | | visualizationStudy Location: PortableIndications: [facility] 425.4/ I42.9.Patient | | Status: [...] Left Atrium Left Ventricle EF | | Pdeerjtbb85% | |Conclusions | |Summary | |1. Small [...] Left Ventricle | | | | EF Jzblfflcu12% | + + + +---------+ + + [...] | | | Arterial | Performed by [facility] [address] | mmol/L | SACRED [...] [address] | [place] [address] | | | HEART MEDICAL CENTER | [...] E | | | Normalized | by [facility] [address], | mg/dL | SACRED | | | | [place], [place] | | HEART | | | |Performed by [facility] [address], [place] | | MEDICAL | | | [...] + + | [facility] | [address] | [place], [place] | | | HEART MEDICAL CENTER [...] [facility] | | | | Performed by [facility] [address] | | SACRED | | | | [address] [place], [place] | | HEART | | | | [address] | | MEDICAL | | | | [...] + | GILBERTO NICHOLAS | [address] [facility] [address] [facility] [address] | [place] [address] | | | [facility] | | | | | LABORATORY CERNER [...] 32 | 32 - 43 mmHg | [facility]N CE | | | Arterial [...] (H) | 65 - 80 mmHg | [facility] | | | Arterial [...] + | ROUTE | SIMV | | [facility] CE | | | | | | SACRED | | | | | | HEART | | | | | | MEDICAL | | | | | | CENTER | | | | | | LABORATO RY | | | | | | CERNER | | + + + +--------- ----+ + | Rate | 18 | | ANAN CE | | | | | | [...] CE | | | ARTERIAL | by [facility] [address], | | SACRED | | | | [place] [address] | | HEART | | | |Performed by [facility] [address], [place] [address] | | MEDICAL | | | | | | CENTER | | | | | | [place]ON[place] | | | | | | [place] | | + + + +--------- ----+ + + + | Specimen | + + | Blood specimen | | (specimen) | + + + + + + + | Performing | Address | City/State/Zipcode | Phone Number | | Organization | | | | + + + + + | GILBERTO NICHOLAS | [address] | [place] [address] | | | [facility] | | | | | [...] PROVIDE NCE | | | | by [facility] [address], | | SACRED | | | | [place] [address] | | HEART | | | |Performed by [facility] [address], [place] [address] | | MEDICAL | | | | [...] + | GILBERTO NICHOLAS | [address] | [place] [address] | | | [facility] | | | | | [...] 1.33 (H)Comment: | 0.00 - 0.09 | [facility] | | | in | STRONGLY ENCOURAGE using | ng/mL | SACRED | | | | antibiotics in patient | | HEART | | | | with suspicion of | | MEDICAL | | | | respiratory | | CENTER | | | | infection.Performed by | | LABORATORY | | | | [facility] [address], | | [place] | | | | [place] [address] | | | | + + + + + + + + | Specimen | + + | Blood specimen | | (specimen) | + + + + + + + | Performing | Address | City/State/Zipcode | Phone Number | | Organization | | | | + + + + + | GILBERTO NICHOLAS | [address] | [place] [address] | | | [facility] | | | | | LABORATORY [place] [...] PROVIDE NCE | | | | by [facility] [address], | | SACRED | | | | [place] [address] | | HEART | | | |Performed by [facility] [address], [place] [address] | | MEDICAL | | | | [...] NICHOLAS | [address] | [place] | | | [facility] | | | | | LABORATORY CERNER [...] YUNIOR CE | | | | by [facility] [address], | | SACRED | | | | [place] | | HEART | | | |Performed by [facility] [address], [place] | | MEDICAL | | | | | | CENTER | | | | | | [place] | | | | | | [place] | | + + + +--------- ----+ + + + | Specimen | + + | Blood specimen | | (specimen) | + + + + + + + | Performing | Address | City/State/Zipcode | Phone Number | | Organization | | | | + + + + + | GILBERTO NICHOLAS | [address] | [place] [address] | | | [facility] | | | | | CELESTE [...] | | MEDICAL | | | | [facility] [address] | | CENTER | | | | [place] [address] | | LABORATORY | | | | [...] + + | GILBERTO NICHOLAS | [address] | [place] [address] | | | [facility] | | | | | LABORATORY CERNER [...] pneumothorax. | | | Signed by: MD Lilly Sadaf | | + + + + + [...] | | | | Signed by: MD Lilly Sadaf | + + + +---------+ + + [...] by | 0 - 259 mmol/L | [facility] E | | | | [facility] [address], | | SACRED | | | | [place] | | HEART | | | |Performed by [facility] [address], [place] | | MEDICAL | | | [...] + + | GILBERTO NICHOLAS | [address] | [place] | | | [facility] | | | | | LABORATORY CERNER [...] - 1.030 | [facility] | | | [place] | | | SACRED | | | [...] + + + + | URINE | Winter CathComment: | | [facility] | | | SOURCE | Performed by [facility] [address] | | SACRED | | | | [address] [place] [place] | | HEART | | | | [address] | | MEDICAL | | | | [...] + + | G[facility]ERTO SACRED | [address] | [place] [address] | | | HEART [facility] | | | | | LABORATORY [...] PROVIDE NCE | | | | by [facility] [address], | | SACRED | | | | [place] [address] | | HEART | | | |Performed by [facility] [address], [place] [address] | | MEDICAL | | | | [...] + | [facility] | [address] | [place] [address] | | | [facility] | | | | | LABORATORY [...] [facility] | | | Source | by [facility] [address], | | SACRED | | | | [place] [address] | | HEART | | | |Performed by [facility] [address], [place] [address] | | MEDICAL | | | | [...] + + | GILBERTO NICHOLAS | [address] | [place] [address] | | | [facility] | | | | | LABORATORY AISSATOU [...] and a short | | | 5 Burmese vascular sheath was placed. A 5 Burmese Scott 1 catheter | | | was [...] performed and a short | | 5 Burmese vascular sheath was placed. A 5 Burmese Scott 1 catheter | | was formed [...] | | | | | seconds.Performed by [facility] | | | | | | [address], | | | | | | [place] [address] | | | | + + + + + + + + | Specimen | + + | Blood specimen | | (specimen) | + + + + + + + | Performing | Address | City/State/Zipcode | Phone Number | | Organization | | | | + + + + + | GILBERTO NICHOLAS | [address] | [place] [address] | | | [facility] | | | | | LABORATORY CERNER [...] | | | Normalized | Performed by [facility] [address] | mg/dL | SACRED | | | | [address] [place] | | HEART | | | | [phone] | | MEDICAL | | | | [...] + + | GILBERTO NICHOLAS | [address] | [place] [address] | | | [facility] | | | | | LABORATORY AISSATOU [...] | [facility] | | | | by [facility] [address], | mmol/L | SACRED | | | | [place], [place] | | HEART | | | |Performed by [facility] [address], [place] | | MEDICAL | | | [...] [facility] | [address] | [place], [place] | | | [facility] [...] 3.7Comment: Performed | 3.5 - 5.0 | [facility] | | | | by [facility] [address], | mmol/L | [facility] | | | | [place] [address] | | HEART | | | |Performed by [facility] [address], [place] [address] | | MEDICAL | | | | [...] + | GILBERTO NICHOLAS | [address] | [place] [address] | | | [facility] | | | | | CELESTE REYEZ [...] [facility] | | | | Performed by [facility] [address] | | [facility] | | | | [address] [place] | | HEART | | | | [id number] | | MEDICAL | | | | [...] + + | GILBERTO SACRJAD | [address] | [place] [address] | | | [facility] | | | | | LABORATORY [place] [...] 7.33 (L) | 7.37 - 7.47 | YUNIOR [...] CE | | | ARTERIAL | by [facility] [address], | | [facility] | | | | [place] [address] | | HEART | | | |Performed by [facility] [address], [place] [address] | | MEDICAL | | | | [...] + + | GILBERTO NICHOLAS | [address] | [place] [address] | | | [facility] | | | | | CELESTE REYEZ [...] PROVIDE NCE | | | | by [place] [address] [address], | | [facility] | | | | [place] [address] | | HEART | | | |Performed by [facility] [address], [place] [address] | | MEDICAL | | | | [...] + | GILBERTO NICHOLAS | [address] | [place] [address] | | | [facility] | | | | | LABORATORY [place] [...] | | | | | | LAB [facility] | | | | | | [facility] | | | | | | [facility] | | | | | | [facility] | | | | | | [facility] | | + + + + + + | Rh Type | Positive | | REFERENCE | | | | | | [facility] | | | | | | [facility] | | | | | | [facility] | | | | | | [facility] | | | | | | [facility] | | + + + + + + + + | Specimen | + + | | + + + + + | Narrative | Performed At | + + + | Specimen Expiration Date: [id number] | [facility] | | | [facility] | | | [facility] | | [facility] | + + + + + + + + | Performing | Address | City/State/Zipcode | Phone Number | | Organization | | | | + + + + + | REFERENCE LAB | [address] | [place] [address] | [phone] | | [facility] | | | | | [facility] [...] YUNIOR CE | | | | by [facility] [address], | | [facility] | | | | [place] | | HEART | | | |Performed by [facility] [address], [place] | | MEDICAL | | | [...] + | GILBERTO SACRJAD | [address] | [place] | | | [facility] | | | | | LABORATORY CERNER [...] | | MEDICAL | | | | [facility] [address], | | CENTER | | | | [place] [address] | | LABORATORY | | | | [...] NICHOLAS | [address] | [place] [address] | | | [facility] | | | | | LABORATORY CERNER [...] ENCE | | | Basophils | by [facility] [address], | K/uL | [facility] | | | | [place] [address] | | HEART | | | |Performed by [facility] [address], [place] [address] | | MEDICA L | | | [...] + + | GILBERTO NICHOLAS | [address] | [place] [address] | | | [facility] | | | | | LABORATORY [place] [...] | | | | | | [facility] | | | | | | [facility] | | | | | | [facility] | | | | | | [facility] | | | | | | [facility]ENTER | | + + + + + + | Rh Type | PositiveComment: Patient | | REFERENCE | | | | is remote crossmatch | | [facility] | | | | eligible | | [facility] | | | | | | [facility] | | | | | | B[facility] | | | | | | CENTER | | + + + + + + | Antibody | Negative | | REFERENCE | | | Screen | | | [facility] | | | | | | [facility] [...] + + + | Specimen Expiration Date: [id number] | [facility] LAB | | | [facility] | | | [facility] | | | [facility] | + + + + + + + + | Performing | Address | City/State/Zipcode | Phone Number | | Organization | | | | + + + + + | REFERENCE LAB | [address] | [place] [address] | [phone] | | [facility] | | | | | [facility] [...] + | Diagnosis | + + | Pseudoaneurysm of visceral artery (HCC) | + + | Anemia, unspecified type | + + | Chronic obstructive pulmonary disease, unspecified COPD type (HCC) | + + | Essential hypertension Unspecified essential hypertension | + + | Hemorrhagic shock (HCC) Other shock without mention of trauma | + + | Acute posthemorrhagic anemia | + + | Acute respiratory failure with hypoxia and hypercapnia (HCC) | + + | Respiratory failure with hypoxia and hypercapnia (HCC) | + + documented in this encounter Administered Medications + +--------+---------+------+------+------+ | Medication Order | MAR | Action | Dose | Rate | Site | | | Action | Date | | | | + +--------+---------+------+------+------+ + +---+ | acetaminophen (TYLENOL) 325 mg | | | tablet Starting 08/19/17 at | | | 1323, For 1 dose, Dorcas Troncoso | | | : she eckert, | | + +---+ | | | + +---+ + +-------+ +--------+---+---+ | acetaminophen (TYLENOL) tablet | Given | 08/23/19 | 650 mg | | | | 650 mg 650 mg, Oral, EVERY 4 | | 18 9:48 | | | | | HOURS PRN, Pain, Starting Fri | | AM PDT | | | | | 08/19/17 at 1303 | | | | | | + +-------+ +--------+---+---+ +-------+ +--------+---+---+ | Given | 08/22/19 | [...] +---+---+ | | | +---+---+ + +---------+ +------+-------+---+ | albumin 5% IVPB 25 g 25 g, | New Bag | 08/19/19 | 25 g | 500 | | | Intravenous, Administer over 1 | | 18 8:00 | | mL/hr | | | Hours, ONCE, Johana 08/18/17 at 0830, | | AM PDT | | | | | For 1 dose, If fluid boluses | | | | | | | given for hemodynamic support, DO | | | | | | | NOT include as intake in future | | | | | | | CRRT calculations for removal | | | | | | | goals., | | | | | | + +---------+ +------+-------+---+ + +---+ | | | + +---+ | albumin 5% IVPB Starting Johana | | | 08/18/17 at 0756, For 1 dose, | | | Carolyn Salcedo : she | | | override, | | + +---+ | | | + +---+ + +-------+ +-------+---+---+ | albuterol-ipratropium (DUONEB) | [...] | | | | | | Starting [facility] 08/18/17 at 0508 | | | [...] +-------+---+---+ | albuterol-ipratropium (DUONEB) | Given | 08/22/19 | 3 mLs | | | | 2.5-0.5 mg/3 mL nebulizer | | 18 7:51 | | | | | solution 3 mL 3 mL, | | AM PDT | | | | | Nebulization, RT Q4H, First dose | | | | | | | (after last modification) on [facility] | | | | | | | 08/18/17 at 1200 | | | | | | + +-------+ +-------+---+---+ +-------+ +-------+---+---+ | Given | 08/22/19 | 3 mLs | | | | | 18 4:39 | | | | | | AM PDT | | | | +-------+ +-------+---+---+ | Given | 08/22/19 | 3 mLs | | | | | 18 12:27 | | | | | | AM [...] | aluminum & magnesium | Given | 08/23/19 | 50 mLs | | | | hydroxide-simethicone (MAALOX | | 18 8:56 | | | | | PLUS REGULAR STRENGTH) 200-200-20 | | PM PDT | | | | | mg/5 mL 30 mL, lidocaine | | | | | | | (XYLOCAINE) 2% 15 mL, | | | | | | | OLTBtiaeigjba-yxjcnewygbh-mjcufip | | | | | | | e-scopolamine () 5 mL | | | | | | | liquid 50 mL, Oral, ONCE, Mon | | | | | | | 08/22/17 at 2100, For 1 dose, Mix | | | | | | | Maalox Plus 30 ml, Lidocaine | | | | | | | viscous 2% 15 ml, 5ml to | | | | | | | formulate mixture., | | | | | | + +-------+ +--------+---+---+ +---+---+ | | | +---+---+ + +-------+ +-------+---+---+ | amLODIPine (NORVASC) tablet 10 | Given | 08/22/19 | 10 mg | | | | mg 10 mg, Oral, DAILY, First | | 18 9:01 | | | | | dose on 08/20/17 at 0900 | | AM PDT | | | | + +-------+ +-------+---+---+ +-------+ +-------+---+---+ | Given | 08/21/19 | 10 mg | | | | | 18 8:35 | | | | | | AM [...] | | | BID, First dose on [facility] 08/18/17 at | | | | [...] | | | | < 4.75, Starting [facility] 08/18/17 at | | | | [...] | | +---+---+ + +-------+ +---------+---+---+ | perrynorah-gloria (SENOKOT-S) | Given | 08/23/19 | 2 [...] | | +---+---+ + +-------+ +---------+---+---+ | fentaNYL (PF) 50 mcg/mL | Given | 08/18/19 | 100 mcg | | | | injection Starting Tue08/17/17 at | | 18 10:10 | | | | | 2202, For 1 dose, Ever Chicas | | PM PDT | | | | | : she eckert, | | | | | | + +-------+ +---------+---+---+ +---+---+ | | | +---+---+ + + + +--------+---------+---+ | fentaNYL in saline 5 mcg/mL | Rate/Dos | 08/20/19 | 10 | 2 mL/hr | | | infusion 25-250 mcg/hr (5-50 | e Change | 18 11:00 | mcg/hr | | | | mL/hr), at 5-50 mL/hr, | | AM PDT | | | | | Intravenous, TITRATED, Starting | | | | | | | Tue08/17/17 at 2315 | | | | | | + + + +--------+---------+---+ + + +--------+---------+---+ | Rate/Dose Verify | 08/20/19 | 25 | 5 mL/hr | | | | 18 10:30 | mcg/hr | | | | | AM PDT | | | | + + +--------+---------+---+ | Rate/Dose Change | 08/20/19 | 25 | 5 mL/hr | | | | 18 10:00 | mcg/hr | | | | | AM PDT | | | | + + +--------+---------+---+ +---+---+ | | | +---+---+ + +-------+ +-------+---+---+ | furosemide (LASIX) injection 60 | Given | 08/20/19 | 60 mg | | | | mg 60 mg, Intravenous, ONCE, | | 18 6:58 | | | | | 08/19/17 at 1900, For 1 dose | | PM PDT | | | | + +-------+ +-------+---+---+ +---+---+ | | | +---+---+ + +-------+ +-------+---+---+ | furosemide (LASIX) injection 60 | Given | 08/21/19 | 60 mg | | | | mg 60 mg, Intravenous, ONCE, | | 18 8:35 | | | | | 08/20/17 at 0730, For 1 dose | | AM PDT | | | | + +-------+ [...] | | +---+---+ + +-------+ +---------+---+---+ | iohexol (OMNIPAQUE 300) 300 | Given | 08/19/19 | 140 mLs | | | | mg/mL injection PRN, Starting | | 18 1:05 | | | | | Johana 08/18/17 at 0105 | | AM PDT | | | | + +-------+ +---------+---+---+ +---+---+ | | | +---+---+ + +-------+ +--------+---+---+ | iohexol (OMNIPAQUE 300) 300 | Given | 08/19/19 | 90 mLs | | | | mg/mL injection PRN, Starting | | 18 4:11 | | | | | Johana 08/18/17 at 1611 | | PM PDT | | | | + +-------+ +--------+---+---+ +---+---+ | | | +---+---+ + +---------+ +--------+-------+---+ | levoFLOXacin in dextrose | New Bag | 08/20/19 | 750 mg | 100 | | | (LEVAQUIN) IVPB 750 mg 750 mg, | | 18 8:28 | | mL/hr | | | Intravenous, Administer over 90 | | AM PDT | | | | | Minutes, DAILY, First dose on Johana | | | | | | | 08/18/17 at 0900, Indications: | | | | | | | Community Acquired Pneumonia | | | | | | + +---------+ +--------+-------+---+ +---------+ +--------+-------+---+ | New Bag | 08/19/19 | 750 mg | 100 | | | | 18 8:19 | | mL/hr | | | | AM PDT | | | | +---------+ +--------+-------+---+ +---+---+ | | | +---+---+ + +-------+ +-------+---+---+ | lidocaine 1% injection PRN, | Given | 08/19/19 | 5 mLs | | | | Starting [facility] 08/18/17 at 0003 | | 18 12:03 | | | | | | | AM PDT | | | | + +-------+ +-------+---+---+ +---+---+ | | | +---+---+ + +-------+ +-------+---+ + | lidocaine 1% injection PRN, | Given | 08/19/19 | 5 mLs | | Other | | Starting [facility] 08/18/17 at 1520 | | 18 3:20 | | | (Comment | | | | PM PDT | | | ) | + +-------+ +-------+---+ + +---+---+ | | | +---+---+ + [...] +-------+---+---+ | methylPREDNISolone sodium | Given | 08/19/19 | 40 mg | | | | succinate (solu-MEDROL) 40 mg/mL | | 18 8:18 | | | | | injection 40 mg 40 mg, | | AM PDT | | | | | Intravenous, EVERY 12 HOURS (2 | | | | | | | times per day), First dose on Tue | | | | | | | 08/18/17 at 0900, Mix with 1 mL | | | | | | | provided diluent to make 40 | | | | | | | mg/mL., | | | | | | + +-------+ +-------+---+---+ +---+---+ | | | +---+---+ + +-------+ +------+---+---+ | midazolam (VERSED) 1 mg/mL | Given | 08/19/19 | 1 mg | | | | injection Intravenous, PRN, | | 18 4:04 | | | | | Starting [facility] 08/18/17 at 1450 | | PM PDT | | | | + +-------+ +------+---+---+ +-------+ +------+---+---+ | Given | 08/19/19 | 1 mg | | | | | 18 2:50 | | | | | | PM PDT | | | | +-------+ +------+---+---+ +---+---+ | | | +---+---+ + +-------+ +---+---+---+ | pkimxnws-lubnxqlaw-npwkazhbvw | Given | 08/20/19 | | | | | (NEOSPORIN) 400-5-5000 ointment | | 18 4:00 | | | | | Starting 08/19/17 at 1612, For | | PM PDT | | | | | 1 dose, Dorcas Troncoso : | | | | | | | she cunninghamide, | | | | | | + +-------+ +---+---+---+ +---+---+ | | | +---+---+ + + + +---------+ +---+ | norepinephrine in saline | Restarte | 08/20/19 | 4 | 15 mL/hr | | | (LEVOPHED) 16 mcg/mL infusion | d | 18 7:00 | mcg/min | | | | 1-30 mcg/min (3.75-112.5 mL/hr, | | AM PDT | | | | | rounded to 3.8-112.5 mL/hr), at | | | | | | | 3.8-112.5 mL/hr, Intravenous, | | | | | | | TITRATED, Starting 08/17/17 at | | | | | | | 2045, Administer ONLY in a | | | | | | | Critical Care Area., Initial | | | | | | | dose: 3 mcg/min, Goal: SBP | | | | | | | greater than 90 | | | | | | + + + +---------+ +---+ + + +---------+ +---+ | Rate/Dose Verify | 08/20/19 | 8 | 30 mL/hr | | | | 18 5:00 | mcg/min | | | | | AM PDT | | | | + + +---------+ +---+ | Rate/Dose Verify | 08/20/19 | 8 | 30 mL/hr | | | | 18 4:00 | mcg/min | | | | | AM PDT | | | | + + +---------+ +---+ +---+---+ | | | +---+---+ + [...] +-------+---+---+ | pantoprazole (PROTONIX) | Given | 08/20/19 | 40 mg | | | | injection 40 mg 40 mg, | | 18 8:28 | | | | | Intravenous, DAILY, First dose on | | AM PDT | | | | | Johana 08/18/17 at 0900, If | | | | | | | reconstituting, mix each 40 mg | | | | | | | vial with 10 mL NS to make 4 | | | | | | | mg/mL., | | | | | | + +-------+ +-------+---+---+ +-------+ +-------+---+---+ | Given | 08/19/19 | 40 mg | | | | | 18 8:19 | | | | | | AM PDT | | | | +-------+ +-------+---+---+ +---+---+ | | | +---+---+ + +-------+ +-------+---+---+ | pantoprazole (PROTONIX) | Given | 08/22/19 | 40 mg | | | | injection 40 mg 40 mg, | | 18 9:31 | | | | | Intravenous, 2 TIMES DAILY, First | | PM PDT | | | | | dose (after last modification) | | | | | | | on 08/21/17 at 0900, If | | | | | | | reconstituting, mix each 40 mg | | | | | | | vial with 10 mL NS to make 4 | | | | | | | mg/mL., | | | | | | + +-------+ +-------+---+---+ +-------+ +-------+---+---+ | Given | 08/22/19 | 40 mg | | | | | 18 9:02 | | | | | | AM PDT | | | | +-------+ +-------+---+---+ +---+---+ | | | +---+---+ + +-------+ +-------+---+---+ | pantoprazole (PROTONIX) | Given | 08/21/19 | 80 mg | | | | injection 80 mg 80 mg, | | 18 8:34 | | | | | Intravenous, DAILY, First dose | | AM PDT | | | | | (after last modification) on Sat | | | | | | | 08/20/17 at 0900, If | | | | | | | reconstituting, mix each 40 mg | | | | | | | vial with 10 mL NS to make 4 | | | | | | | mg/mL., | | | | | | + [...] potassium chloride (K-DUR) ER | Given | 08/23/19 | 40 mEq | | | | tablet 40 mEq 40 mEq, Oral, | | 18 11:03 | | | | | ONCE, 08/22/17 at 0815, For 1 | | AM PDT | | | | | dose | | | | | | + +-------+ +--------+---+---+ +---+---+ | | | +---+---+ + +---------+ +--------+ +---+ | potassium chloride 20 mEq in | New Bag | 08/21/19 | 20 mEq | 50 mL/hr | | | sterile water 50 mL IVPB 20 mEq, | | 18 8:24 | | | | | Intravenous, Administer over 1 | | AM PDT | | | | | Hours, PRN, Per protocol, | | | | | | | Starting [facility] 08/18/17 at 0616, | | | | | | | ICU Use Only For Central | | | | | | | Line use Only Protocol NOT | | | | | | | recommended if Scr > 1.8, | | | | | | | dialysis patients or CrCl < 50 | | | | | | | mL/min [K+] =3.6 - 4 mEql/L | | | | | | | Give 20 mEq KCl Q1H IV x 2 doses | | | | | | | For a total of 40 mEq [K+] =3 | | | | | | | - 3.5 mEql/L Give 20 meq KCl | | | | | | | Q1H IV x 3 doses For a total | | | | | | | of 60 mEq [K+] < 3.0 mEql/L | | | | | | | Give 20 mEq KCl Q1H IV x 4 doses | | | | | | | For a total of 80 mEq. * | | | | | | | Obtain K+ level 2 hours after | | | | | | | replacement is done. If K+ | | | | | | | still < 3.6 mEq/L, repeat | | | | | | | replacement as indicated per | | | | | | | protocol. Give either tablet, | | | | | | | liquid, or IV but never more than | | | | | | | one form., | | | | | | + +---------+ +--------+ +---+ +---------+ +--------+ +---+ | New Bag | 08/21/19 | 20 mEq | 50 mL/hr | | | | 18 6:25 | | | | | | AM PDT | | | | +---------+ +--------+ +---+ | New Bag | 08/20/19 | 20 mEq | 50 mL/hr | | | | 18 6:58 | | | | | | PM PDT | | | | +---------+ +--------+ +---+ +---+---+ | | | +---+---+ + + + + +-------+---+ | propofol infusion (DIPRIVAN) 10 | Rate/Dos | 08/20/19 | 5 | 2.1 | | | mg/mL infusion 10-70 mcg/kg/min | e Verify | 18 10:00 | mcg/kg/m | mL/hr | | | | | AM PDT | in | | | | 69.2 kg (4.152-29.064 mL/hr, | | | | | | | rounded to 4.2-29.1 mL/hr), at | | | | | | | 4.2-29.1 mL/hr, Intravenous, | | | | | | | TITRATED, Starting Johana 08/18/17 at | | | | | | | 0530, Administer ONLY in a | | | | | | | Critical Care Area., Initial | | | | | | | dose: 20 mcg/kg/min, Goal: RASS | | | | | | | -2 to 0 | | | | | | + + + + +-------+---+ + + + +-------+---+ | Rate/Dose Change | 08/20/19 | 5 | 2.1 | | | | 18 9:00 | mcg/kg/m | mL/hr | | | | AM PDT | in | | | + + + +-------+---+ | Rate/Dose Change | 08/20/19 | 10 | 4.2 | | | | 18 8:00 | mcg/kg/m | mL/hr | | | | AM PDT | in | | | + + + +-------+---+ +---+---+ | | | +---+---+ + +-------+ +-------+---+---+ | propranolol (INDERAL) tablet 40 | Given | 08/21/19 | 40 mg | | | | mg 40 mg, Oral, DAILY, First | | 18 8:35 | | | | | dose on Tue08/19/17 at 1345 | | AM PDT | | | | + +-------+ +-------+---+---+ +-------+ +-------+---+---+ | Given | 08/20/19 | 40 mg | | | | | 18 4:07 | | | | | | PM PDT | | | | +-------+ +-------+---+---+ +---+---+ | | | +---+---+ + +-------+ +-------+---+---+ | propranolol (INDERAL) tablet 40 | Given | 08/21/19 | 40 mg | | | | mg 40 mg, Oral, ONCE, Sat | | 18 10:07 | | | | | 08/20/17 at 0945, For 1 dose | | AM PDT | | | | + +-------+ [...] +---+ | | | + +---+ + + + + +---------+---+ | vasopressin (PITRESSIN) 0.2 | Rate/Dos | 08/19/19 | 0.01 | 3 mL/hr | | | Units/mL in sodium chloride 0.9% | e Change | 18 10:45 | Units/mi | | | | 100 mL infusion 0.03 Units/min | | AM PDT | n | | | | (9 mL/hr), at 9 mL/hr, | | | | | | | Intravenous, TITRATED, Starting | | | | | | | 08/17/17 at 2045, Administer | | | | | | | ONLY in a Critical Care Area., | | | | | | | Goal: MAP 65 and greater, SBP | | | | | | | greater than 90 | | | | | | + + + + +---------+---+ + + + +---------+---+ | Rate/Dose Change | 08/19/19 | 0.02 | 6 mL/hr | | | | 18 9:15 | Units/mi | | | | | AM PDT | n | | | + + + +---------+---+ | Restarted | 08/19/19 | 0.01 | 3 mL/hr | | | | 18 8:40 | Units/mi | | | | | AM PDT | n | | | + + + +---------+---+ +---+---+ | | | +---+---+ documented in this encounter
--- OUTSIDE RECORDS SUMMARY | ~2019-01-22 | XMS | Encounter Summary ---
Demographics + + + | Address | [address] | | | [place] [address] | + + + | Home Phone | | + + + | Preferred Language | Unknown | + + + | Marital Status | | + + + | Restoration Affiliation | 1028 | + + + | Race | Unknown | + + + | Ethnic Group | Unknown | + + + Author + + + | Author | [facility] | | | and [place] | + + + | Organization | [facility] | | | and [place] | + + + | Address | Unknown | + + + | Phone | Unavailable | + + + Support + + + + + | Name | Relationship | Address | Phone | + + + + + | Joseluis Desai | ECON | [place] | | | | | [address] | | + + + + + | Mila Desai | ECON | Unknown | | + + + + + Care Team Providers + +------+ + | Care Solar Sales Consultant Name | Role | Phone | [...] Forrest SMITH | | | | | [phone] | [place] [address] | | +--------+ + + + + [...] | | | | | [place] | | | | | | [address] | | | | | | | | +--------+---------+ + + + documented as of this encounter Procedures + +--------+ + + + | Procedure Name | Priori | Date/Time | Associated Diagnosis | Comments | | | ty | | | | + +--------+ + + + | XR CHEST 1 VIEW | Routin | 01/07/2017 | | Results for this | | | e | 6:25 PM | | procedure are in the | | | | PDT | | results section. | + +--------+ + + + documented in this encounter Results XR Chest 1 Vw (01/07/2017 6:25 PM PDT) + + | Specimen | [...]
--- OUTSIDE RECORDS SUMMARY | ~2019-01-22 | XMS | Encounter Summary ---
Demographics + + + | Address | [address] | | | [place] [address] | + + + | Home Phone | | + + + | Preferred Language | Unknown | + + + | Marital Status | | + + + | Oriental Orthodox Affiliation | 1028 | + + + | Race | Unknown | + + + | Ethnic Group | Unknown | + + + Author + + + | Author | [facility] | | | and [place] | + + + | Organization | [facility] | | | and [place] | + + + | Address | Unknown | + + + | Phone | Unavailable | + + + Support + + + + + | Name | Relationship | Address | Phone | + + + + + | Joseluis Desai | ECON | [place] | | | | | [address] | | + + + + + | Mila Desai | ECON | Unknown | | + + + + + Care Team Providers + +------+ + | Care Dry Cell And Battery Assembler Name | Role | Phone | [...] | Specialty | Vascular | Diagnoses | [place], | Field, | | | Services | [...] | | artery (HCC) | FLOOR | [place] [address] | | | | | | [place] | Phone: | | | | | | [address] | [phone] | | | | | | Phone: | Fax: | | | | | | [phone] | [phone] | | | | | | Fax: | | | | | | | [phone] | | +--------+ + + + + [...] + + | 08/17/ | Hospital | [facility] | Faby Rodriguez MD | 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 | | | | SURGICAL [address] | [place] [address] | (HCC); Anemia, | | 08/23/ | | Ave [place] | [phone] | unspecified type; | | 2018 | | [address] | | Chronic obstructive | | | | [phone] | Vikram James, | pulmonary disease, | | | | | [address] | unspecified COPD | | | | | [place], [place] | type ([facility]); | | | | | [address] | Essential | | | | | | hypertension; | | | | | Nadia Sutton MD | Hemorrhagic shock | | | | | [address] | ([facility]); Acute | | | | | 9TH FLOOR [place], | posthemorrhagic | | | | | [place] [address] | anemia; Acute | | | | | [phone] | respiratory failure | | | | | | with hypoxia and | | | | | Riky Rodriguez | hypercapnia ([facility]) | | | | | MD Jarocho [address] | [address]LO[address] | | | | | | [place] [address] | | | | | | [phone] | | | | | | | [...] Follow Up Appointments: Bry Vaughn DO [address] [address] Schedule an appointment as soon as possible for a visit Discharge Disposition: Home Consultants This Admission: Vascular surgery, General Surgery, Interventional Radiology Hospital Course: Amy Coleman is a 62-year-old female with past medical history significant for COPD, CAD s/p NSTEMI ( no PCI), who was transferred to [facility] for ICU care from [facility] on 08/17 wh ere she was intubated [...] going home to continue duo nebs at [facility]. She is being discharged today in good [...] this chart may have been created with Massive voice recognition software. Occasi onal wrong-word or [...] urine. Belly (abdominal) pain Date Last Reviewed: 09/12/201519995791-8007 [employer]. [address] [place] [address]. All righ ts reserved. This information is [...] about recovering at home. Date Last Reviewed: 02/12/201619997348-5046 [employer]. [address] [place] [address], [place] [address]. All righ ts reserved. This information is not intended as a substitute for professional medical care. Always follow your healthcare professional's instructions. [facility] Patient Belongings Amy Coleman 1955 Patient Signature: Clinician/Inspector Rubber Stamp Die Signature: Discharge Instructions: After Your Surgery You [...] interact with your prescription medicines or other dzfb-mmj-bjyueax (OTC) medicines. Some prescription medicines have acetaminophen and other ingredients.Using both prescription a nd OTC acetaminophenfor paincan cause you to overdose. Readthe labels on your OTC [facility] care. This will help youto clearly know [...] of taking these medicines. Date Last Reviewed: 02/12/201619995147-6518 [employer]. [address] [place], [place] [address]. All righ ts reserved. This information is [...] of this encounter Progress Notes Selin Siegel, NIBBLER OPERATOR - 08/22/2017 2:55 PM PDTSocial Work: Pt is a 62 year old female from [place], [place] with [facility] Health Plan Medicaid insurance. SW received referral [...] ( no PCI), who was transferred to [facility] for ICU care from [facility] on 08/17 wh ere she was intubated [...] - Single Lumen 05/08/17 0130 Left Forearm mpsj-qsg-cmkgib catheter syst em 20 gauge 106 days [...] this chart may have been created with Massive voice recognition software. Occasi onal wrong-word or sound-alike substitutions may have occurred due to the inherent lobo itations of voice recognition software. Please read the chart carefully and recognize, using context, where these substitutions have occurred Krzysztof Ordaz MD - 08/21/2017 5:47 PM PDTFormatting of this note might be different f rom the original. [facility] - [facility] Surgery Team Hospital Day: 5 DATE/TIME: [...] Signed by: Krzysztof Montaño MD, 08/21/2017 17:47 [facility] ope, Riky Avendaño MD - 08/21/2017 9:49 AM PDT Patient: Amy Coleman Date of : 1955 Admit Date: 08/17/2017 Date of Service: 08/21/2017 PCP: Bry Vaughn DO Hospital Day: Hospital Day: 5 Hospital Course: Amy Coleman is a 62-year-old female with past medical history significant for COPD, CAD s/p NSTEMI ( no PCI), who was transferred to [facility] for ICU care from [facility] on 08/17 wh ere she was intubated [...] - Single Lumen 05/08/17 0130 Left Forearm dbft-zng-blihuf catheter syst em 20 gauge 105 days [...] Hold Result Value Ref Range Product Code U1797M14 UNIT # [id number] UNIT ABO O UNIT RH POS Unit Status IS Blood Product Expiration Date and Time Product Blood Type Barcode 5100 Product Code I9665N38 UNIT # [id number] UNIT ABO O UNIT RH POS Unit Status RE Blood Product Expiration Date and Time [id number] Product Blood Type Barcode 5100 Hemoglobin and [...] this chart may have been created with Massive voice recognition software. Occasi onal wrong-word or sound-alike substitutions may have occurred due to the inherent lobo itations of voice recognition software. Please read the chart carefully and recognize, using context, where these substitutions have occurred Krzysztof Ordaz MD - 08/20/2017 12:23 PM PDTFormatting of this note might be different f rom the original. [facility] - [facility] Surgery Team Hospital Day: 4 DATE/TIME: [...] Signed by: Krzysztof Montaño MD, 08/20/2017 12:23 [facility] Nadia Blount MD - 08/20/2017 10:02 AM PDT Patient: Amy Coleman Date of : 1955 Admit Date: 08/17/2017 Date of Service: 08/20/2017 PCP: Bry Vaughn DO Hospital Day: Hospital Day: 4 Hospital Course: Amy Coleman is a 62-year-old female with past medical history significant for COPD, CAD s/p NSTEMI ( no PCI), who was transferred to [facility] for ICU care from [facility] on 08/17 wh ere she was intubated [...] - Single Lumen 05/08/17 0130 Left Forearm cbhl-efi-taypgf catheter syst em 20 gauge 104 days [...] this chart may have been created with Massive voice recognition software. Occasi onal wrong-word or sound-alike substitutions may have occurred due to the inherent lobo itations of voice recognition software. Please read the chart carefully and recognize, using context, where these substitutions have occurred mnadeem, Vikram Mayes MD - 08/20/2017 5:28 AM PDT Critical Care Progress Note [facility] Date of Service: 08/20/2017 Admit Date: 08/17/2017 Pt. Name: Amy Coleman Age: 62 y.o. 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 Scheduled bowel meds started. Indwelling Bladder Catheter [...] LABORATORY: I personally reviewed recent labs in [facility] and ordered appropriate follow-up domonique dies. [...] Component Value Date PHART 7.36 (L) 08/19/2017 TDP3OEN 44 (H) 08/19/2017 PO2ART 91 (H) 08/19/2017 [id number] 13.3 (L) 08/19/2017 MRT9TSE 25.2 08/19/2017 [place] -0.2 08/19/2017 CARBOXYHGB 1.0 [...] this chart may have been created with Massive voice recognition software. Occasi onal wrong-word or sound-alike substitutions may have occurred due to the inherent lobo itations of voice recognition software. Please read the chart carefully and recognize, using context, where these substitutions have occurred. alKrzysztof solomon MD - 08/19/2017 2:04 PM PDT [facility] [place] General Surgery Team Hospital Day: 3 DATE/TIME: [...] Signed by: Krzysztof Montaño MD, 08/19/2017 14:05 [facility] Jarocho Saldaña RRT - 08/19/2017 10:10 [...] Coleman DATE OF : 1955 MED RECORD: [id number] ASSESSMENT/PLAN PROCEDURE: mesenteric angiogram 08/18 ASSESSMENT: 1. [...] 2019 PHART 7.25* 7.34* PO2ART 58* 139* JIG5PIE 53* 39 BEART -4.1* -4.5* EXAM: General [...] 6:50 AM PDT Critical Care Progress Note [facility] Date of Service: 08/19/2017 Admit Date: 08/17/2017 [...] NSTEMI (no PCI, mild disease) presented to [facility] on 08/16 with shortness of [...] NSTEMI (no PCI, mild disease) presented to [facility] on 08/16 with shortness of [...] Today: Yes Extubated Bowel Function: Last BM: ASSOCIATE BUSINESS ANALYST. Scheduled bowel meds started. Indwelling Bladder Catheter [...] LABORATORY: I personally reviewed recent labs in [facility] and ordered appropriate follow-up domonique dies. [...] Component Value Date PHART 7.34 (L) 08/18/2017 [id number] 39 08/18/2017 PO2ART 139 (H) 08/18/2017 [id number] 11.2 (L) 08/18/2017 OVP6RMV 21.2 (L) 08/18/2017 BEART -4.5 (L) 08/18/2017 [...] this chart may have been created with Massive voice recognition software. Occasi onal wrong-word or [...] 6:28 AM PDT Critical Care Progress Note [facility] Date of Service: 08/18/2017 Admit Date: 08/17/2017 [...] sease only, no PCI) presented to [facility] ([facility] [place]) initially w/ c/o SOB and was intubated for acute on chronic respiratory failure (ABG prior to intubation: 7.0/98/217/26). Pt then developed hypotension/HD instability for which she required 2 pressors. hgb fell from 15-- >4 and pt rc'd 6u PRBCs, 2uFFP, 1u PLT, 5L NS. CT abdomen showed RP hematoma and pt was tra nsferred to [facility] for further eval of this. 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 Gen surgery consulted as w ell as vascular to determine best approach to vascular issues given high potential for re bl eed. Summary of Significant Events: 08/17: Admitted to [facility]. Intubated. To IR 08/18: Awake, alert. NE [...] l plan set Bowel Function: Last BM: ASSOCIATE BUSINESS ANALYST. PRN bowel meds available. Indwelling Bladder Catheter Indication: Vasopressors for hemodynamic instability Subjective 24hr interval history: Transferred from [place], [place] to [facility] Afebrile Rc'd 6u PRBCs, 2u FFP, 1u [...] LABORATORY: I personally reviewed recent labs in [facility] and ordered appropriate follow-up domonique dies. [...] Results Component Value Date PHART 7.39 08/18/2017 IED8ZTL 32 08/18/2017 PO2ART 108 (H) 08/18/2017 [id number] 16.2 08/18/2017 CUI9PJO 19.4 (L) 08/18/2017 [place] -5.6 (L) 08/18/2017 [...] this chart may have been created with Massive voice recognition software. Occasi onal wrong-word or sound-alike substitutions may have occurred due to the inherent lobo itations of voice recognition software. Please read the chart carefully and recognize, using context, where these substitutions have occurred. Associated attestation - Vikram James MD - 08/18/2017 8:56 AM PDT Physician Attestation Note [facility] Date of Service: 08/18/2017 Reason for critical care: Hemorrhagic shock secondary to intra-abdominal bleeding I reviewed and discussed the patient history, assessment and plan with the KOLE, during pers onal discussion and/or multi-disciplinary rounds. Acute issues or additions to plan of care: 62 year old lady with PMH of COPD, CAD s/p NSTEMI (no PCI, mild disease) presented to [facility] on 08/16 with shortness of [...] this chart may have been created with Massive voice recognition software. Occasi onal wrong-word or [...] riginal. . Critical Care-Care Progress Note Update [facility] Date of Service: 08/17/2017 Admit Date: 08/17/2017 [...] called and discussed plans with son, Joseluis ([phone]). He expre ssed understanding and wanted to [...] this chart may have been created with Massive voice recognition software. Occasi onal wrong-word or [...] | | | | | ARIC Collado [place], [place] | | | | | | [address] | | | | | | | [...] | | MEDICAL | | | | [facility] [address], | | CENTER | | | | [place] [address] | | LABORATORY | | | | [...] + | [facility] | [address] | [place] [address] | | | HEART [facility]ICAL [facility]ENTER | [...] [facility] | | | | Performed by [facility] [address] | | SACRED | | | | [address] [place] | | HEART | | | | [address] | | MEDICAL | | | | [...] + + | GILBERTO NICHOLAS | [address] | [place] [address] | | | [facility] [...] | | MEDICAL | | | | [facility] [address], | | CENTER | | | | [place] [address] | | LABORATORY | | | | [...] + | GILBERTO NICHOLAS | [address] | [place] [address] | | | [facility] [...] [facility] N[facility] | | | | by [facility] [address], | | SACRED | | | | [place] [address] | | HEART | | | |Performed by [facility] [address], [place] [address] | | MEDICAL | | | | [...] + | GILBERTO NICHOLAS | [address] | [place] [address] | | | [facility] [...] [facility] | | | | Performed by [facility] [address] | | SACRED | | | | [address] [place] | | HEART | | | | [address] | | MEDICAL | | | | [...] + + | ANAODILIASneha DANYJAD | [address] | [place] [address] | | | [facility] [...] [facility] | | | | Performed by [facility] [address] | | SACRED | | | | [address] [place], [place] | | HEART | | | | [address] | | MEDICAL | | | | [...] [address] | [place] [address] | | | [facility] [...] + + + + | Product | [id number] | | REFERENCE | | | Code | | | [facility] | | | | | | [facility] | | | | | | [facility] | | | | | | [facility]OD | | | | | | CENTER | | + + + + + + | UNIT # | [id number] | | REFERENCE | | | | | | [facility] | | | | | | [facility] | | | | | | [facility] | | | | | | BLOOD | | | | | | CENTER | | + + + + + + | UNIT ABO | O | | REFERENCE | | | | | | [facility] | | | | | | [facility] | | | | | | [facility] | | | | | | BLOOD | | | | | | CENTER | | + + + + + + | UNIT RH | POS | | REFERENCE | | | | | | [facility] | | | | | | [facility] | | | | | | [facility] | | | | | | BLOOD | | | | | | CENTER | | + + + + + + | Unit Status | IS | | REFERENCE | | | | | | [facility] | | | | | | [facility] | | | | | | [facility] | | | | | | BLOOD | | | | | | CENTER | | + + + + + + | Blood | [id number] | | REFERENCE | | | Product | | | [facility] | | | Expiration | | | [facility] | | | Date and | | | [facility] | | | Time | | | BLOOD | | | | | | CENTER | | + + + + + + | Product | [id number] | | REFERENCE | | | Blood Type | | | [facility] | | | Barcode | | | [facility] | | | | | | [facility] | | | | | | BLOOD | | | | | | CENTER | | + + + + + + | Product | [id number] | | REFERENCE | | | Code | | | [facility] | | | | | | [facility] | | | | | | [facility] | | | | | | BLOOD | | | | | | CENTER | | + + + + + + | UNIT # | [id number] | | REFERENCE | | | | | | [facility] [place] | | | | | | [facility] | | | | | | [facility] | | | | | | BLOOD | | | | | | CENTER | | + + + + + + | UNIT ABO | O | | REFERENCE | | | | | | [facility] | | | | | | [facility] | | | | | | [facility] | | | | | | BLOOD | | | | | | CENTER | | + + + + + + | UNIT RH | POS | | REFERENCE | | | | | | [facility] | | | | | | [facility] | | | | | | [facility] | | | | | | BLOOD | | | | | | CENTER | | + + + + + + | Unit Status | RE | | REFERENCE | | | | | | [facility] | | | | | | [facility] | | | | | | [facility] | | | | | | BLOOD | | | | | | CENTER | | + + + + + + | Blood | [id number] | | REFERENCE | | | Product | | | [facility] | | | Expiration | | | [facility] | | | Date and | | | [facility] | | | Time | | | BLOOD | | | | | | CENTER | | + + + + + + | Product | [id number] | | REFERENCE | | | Blood Type | | | [facility] | | | Barcode | | | [...] + + + | Specimen Expiration Date: [id number] | REFERENCE LAB | | | [place] | | | [facility] | | | [facility]OD C[facility] | + + + + + + + + | Performing | Address | City/State/Zipcode | Phone Number | | Organization | | | | + + + + + | REFERENCE LAB | [address] | [place] | [phone] | | [place] | | | | | [facility] [...] [facility] | | | | Performed by [facility] [address] | | SACRED | | | | [address] [place] | | HEART | | | | [address] | | MEDICAL | | | | [...] + | [facility] | [address] | [place] [address] | | | [facility] [...] [facility] | | | | Performed by [facility] [address] | mmol/L | SACRED | | | | [address], [place] | | HEART | | | | [address] | | MEDICAL | | | | [...] + | GILBERTO NICHOLAS | [address] | [place] [address] | | | [facility] [...] [facility] | | | | Performed by [facility] [address] | mmol/L | SACRED | | | | [address] [place] | | HEART | | | | [address] | | MEDICAL | | | | [...] SACRED | [address] | [place] [address] | | | [facility] [...] [facility] | | | | Performed by [facility] Alexandra Santiago | | SACRED | | | | [place] | | HEART | | | | [address] | | MEDICAL | | | | [...] + + | [facility] | [address] | [place] [address] | | | HEART [facility] | | | | [...] CENTER | | | | 3.5Performed by [facility] [address] | | LABORATORY | | | | [address], [place] | | [place] | | | | [address] | | | | + + + + + + + + | Specimen | + + | Blood specimen | | (specimen) | + + + + + + + | Performing | Address | City/State/Zipcode | Phone Number | | Organization | | | | + + + + + | [facility] | [address] | [place] [address] | | | [facility] [...] [facility] | | | Venous | by [facility] [address], | mmol/L | SACRED | | | | [place] [address] | | HEART | | | |Performed by [facility] [address], [place] [address] | | MEDICAL | | | | [...] + + | GILBERTO NICHOLAS | [address] | [place] [address] | | | [facility] [...] CENTER | | | | [place] [address] | | LABORATORY | | | | [...] + + | GILBERTO NICHOLAS | [address] | [place] [address] | | | [facility] | | | | [...] | PROVID ENCE | | | | [facility] [address], | | SACRED | | | | [place] [address] | | HEART | | | |Performed by [facility] [address], [place] [address] | | MEDICA L | | | [...] + + | GILBERTO NICHOLAS | [address] | [place] [address] | | | [facility] [...] + + | Performing | Address | City/State/[facility] | Phone Number | | Organization | [...] | [facility] | | | | by [facility] [address], | mmol/L | SACRED | | | | [place] [address] | | HEART | | | |Performed by [facility] [address], [place] [address] | | MEDICAL | | | | [...] + + | GILBERTO NICHOLAS | [address] | [place] [address] | | | [facility] [...] mg/dL | [facility] | | | | [facility] [address], | | SACRED | | | | [place] | | HEART | | | |Performed by [facility] [address], [place] | | MEDICAL | | | [...] + + | [facility] | [address] | [place], [place] | | | HEART MEDICAL CENTER [...] CE | | | ARTERIAL | by [facility] [address], | | SACRED | | | | [place] [address] | | HEART | | | |Performed by [facility] [address], [place] [address] | | MEDICAL | | | | [...] + | [facility] | [address] | [place] [address] | | | [facility] [...] [facility] | | | | Performed by [facility] [address] | | SACRED | | | | [address] [place] | | HEART | | | | [address] | | MEDICAL | | | | [...] | + + + + + | GLIBERTO NICHOLAS | [address] | [place] [address] | | | [facility] [...] CE | | | ARTERIAL | by [facility] [address], | | SACRED | | | | [place] [address] | | HEART | | | |Performed by [facility] [address], [place] [address] | | MEDICAL | | | | [...] + + | ANAODILIASneha YU | [address] | [place] [address] | | | [facility] [...] + + + + + | [employer] | <0.2 | 0.0 - 0.9 [...] | | | | | | [facility] [address] | | | | | | [address] | | | | | | [place] | | | | | | [id number] David J | | | | | | [phone] | | | | + + + + + + + + | Specimen | + + | Blood specimen | | (specimen) | + + + + + + + | Performing | Address | City/State/Zipcode | Phone Number | | Organization | | | | + + + + + | GILBERTO NICHOLAS | [address] | [place] [address] | | | [facility] [...] [facility] | | | Arterial | by [facility] [address], | mmol/L | SACRED | | | | [place] [address] | | HEART | | | |Performed by [facility] [address], [place] [address] | | MEDICAL | | | | [...] + | GILBERTO NICHOLAS | [address] | [place] [address] | | | [facility] [...] CE | | | ARTERIAL | by [facility] [address], | | SACRED | | | | [place] [address] | | HEART | | | |Performed by [facility] [address], [place] [address] | | MEDICAL | | | | [...] YU | [address] | [place] [address] | | | [facility] [...] [facility] | | | | Performed by [facility] [address] | | SACRED | | | | [address], [place] | | HEART | | | | [address] | | MEDICAL | | | | [...] [address] | [place] [address] | | | HEART [facility] | | | | [...] MEDICAL | | | | Performed by [facility] [address] | | CENTER | | | | [address] [place] | | LABORATORY | | | | [address] | | [place] | | | | [...] + | GILBERTO NICHOLAS | [address] | [place] [address] | | | [facility] CENTER | | | | [...] | | | Arterial | Performed by [facility] [address] | mmol/L | SACRED | | | | [address] [place] | | HEART | | | | [address] | | MEDICAL | | | | [...] + + | GILBERTO NICHOLAS | [address] | [place] [address] | | | [facility] [...] | [facility] | | | | by [facility] [address], | mmol/L | SACRED | | | | [place] | | HEART | | | |Performed by [facility] [address], [place] | | MEDICAL | | | [...] SACRED | [address] | [place] | | | HEART MEDICAL CENTER [...] | | | ARTERIAL | Performed by [facility] [address] | | SACRED | | | | [address] [place] | | HEART | | | | [address] | | MEDICAL | | | | [...] + | GILBERTO NICHOLAS | [address] | [place] [address] | | | [facility] [...] [facility] | | | | Performed by [facility] [address] | | SACRED | | | | [address] [place] | | HEART | | | | [address] | | MEDICAL | | | | [...] + + | GILBERTO NICHOLAS | [address] | [place] [address] | | | [facility] [...] [facility] | | | Venous | by [facility] [address], | mmol/L | SACRED | | | | [place] | | HEART | | | |Performed by [facility] [address], [place] | | MEDICAL | | | [...] SACRED | [address] | [place] | | | [facility] [...] | | MEDICAL | | | | [facility] [address], | | CENTER | | | | [place] [address] | | LABORATORY | | | | [...] SACRED | [address] | [place] [address] | | | [facility] [...] | | HEART | | | | [facility] | | MEDICAL | [...] IOM | | | | | | ([facility] of [facility]). | | | | | [...] [facility] | | | | | | [address] | | | | | | [address] [place], [place] | | | | | | [id number] Daniel | | | | | | L Ph:[id number] | | | | + + + + + + + + | Specimen | + + | Blood specimen | | (specimen) | + + + + + + + | Performing | Address | City/State/Zipcode | Phone Number | | Organization | | | | + + + + + | GILBERTO NICHOLAS | [address] | [place] [address] | | | [facility] [...] [facility] | | | Venous | by [facility] [address], | mmol/L | SACRED | | | | [place] [address] | | HEART | | | |Performed by [facility] [address], [place] [address] | | MEDICAL | | | | [...] SACRED | [address] | [place] [address] | | | [facility] [...] PROVID ENCE | | | Cells | [facility] [address], | | SACRED | | | | [place] | | HEART | | | |Performed by [facility] [address], [place] | | MEDICA L | | [...] SACRED | [address] | [place], [place] | | | [facility] [...] | [facility] | | | | by [facility] [address], | mmol/L | SACRED | | | | [place] [address] | | HEART | | | |Performed by [facility] [address], [place] [address] | | MEDICAL | | | | [...] | + + + + + | IGLBERTO NICHOLAS | [address] | [place] [address] | | | [facility] [...] | | | Arterial | Performed by [facility] [address] | mmol/L | SACRED | | | | [address] [place] | | HEART | | | | [address] | | MEDICAL | | | | [...] + + | GILBERTO SACRJAD | [address] | [place] [address] | | | [facility] [...] E | | | Normalized | by [place] [address], | mg/dL | SACRED | | | | [place] [address] | | HEART | | | |Performed by [facility] [address], [place] [address] | | MEDICAL | | | | [...] + | GILBERTO NICHOLAS | [address] | [place] [address] | | | [facility] [...] CE | | | ARTERIAL | by [facility] [address], | | SACRED | | | | [place] [address] | | HEART | | | |Performed by [facility] [address], [place] [address] | | MEDICAL | | | | [...] [address] | [place] [address] | | | [facility] [...] | | | Venous | Performed by [facility] [address] | mmol/L | SACRED | | | | [address] [place] | | HEART | | | | [address] | | MEDICAL | | | | [...] + + | ANALENO NICHOLAS | [address] | [place] [address] | | | [facility] | [...] | [facility] | | | | by [facility] [address], | | SACRED | | | | [place] [address] | | HEART | | | |Performed by [facility] [address], [place] [address] | | MEDICAL | | | | [...] + | GILBERTO NICHOLAS | [address] | [place] [address] | | | [facility] | [...] [facility] | | | | Performed by [facility] Alexandra WThelma | | SACRED | | | | [address] [place] | | HEART | | | | [address] | | MEDICAL | | | | [...] + + | ANAODILIASneha SACRJAD | [address] | [place] [address] | | | [facility] [...] Seldinger technique, a 6 | | | Irish sheath was positioned into the right common femoral artery and | | | attached to a flush system. A 5 Irish Scott 2 catheter was | | | then positioned through a 6 Irish guiding catheter an utilized to | | [...] | Hemostasis was achieved with a 6 Irish Angio-Seal device. | | | Maximum sterile [...] | | standard Seldinger technique, a 6 Irish sheath was positioned into | | the right common femoral artery and attached to a flush system. | | | | A 5 Irish Scott 2 catheter was then positioned through a 6 Irish | | guiding catheter an utilized to [...] performed. Hemostasis was achieved with a 6 Irish | | Angio-Seal device. | | | [...] [facility] | | | | Performed by [facility] [address] | | SACRED | | | | [address] [place] | | HEART | | | | [address] | | MEDICAL | | | | [...] [address] | [place] [address] | | | [facility] | | | | [...] | | | Venous | Performed by [facility] [address] | mmol/L | SACRED | | | | [address], [place] | | HEART | | | | [address] | | MEDICAL | | | | [...] + | GILBERTO NICHOLAS | [address] | [place] [address] | | | [facility] [...] | | | Normalized | Performed by [facility] [address] | mg/dL | SACRED | | | | [address] [place] | | HEART | | | | [address] | | MEDICAL | | | | [...] + | ANALENO NICHOLAS | [address] | [place] [address] | | | [facility] [...] | [facility] | | | | by [facility] [address], | mmol/L | SACRED | | | | [place] [address] | | HEART | | | |Performed by [facility] [address], [place] [address] | | MEDICAL | | | | [...] | [address] | [place] [address] | | | [facility] [...] PROVIDEODILIAE | | | | Performed by [facility] [address] | | SACRED | | | | [address], [place] | | HEART | | | | [address] | | MEDICAL | | | | [...] + | GILBERTO NICHOLAS | [address] | [place] [address] | | | [facility] [...] ANAN CE | | | | by [facility] [address], | | SACRED | | | | [place] [address] | | HEART | | | |Performed by [facility] [address], [place] [address] | | MEDICAL | | | | [...] SACRED | [address] | [place] [address] | | | [facility] | | | | [...] [facility] | | | | Performed by [facility] [address] | | SACRED | [...] [address] | [place] [address] | | | [facility]ICAL [facility]ENTER | [...] | | | REPORT | Performed by [facility] [address] | | SACRED | | | | [place] | | HEART | | | | [address] | | MEDICAL | | | | [...] + | GILBERTO NICHOLAS | [address] [place] [address]. | [place] [address] | | | [facility] [...] | | | REPORT | Performed by [facility] [address] | | SACRED | | | | [address], [place] | | HEART | | | | [...] SACRED | [address] | [place] [address] | | | [facility] | [...] Number [id number] Patient Number | | | [id number] Date of Study 08/18/2017 Visit | | | Number [id number] | | | Referring Physician BRI Sánchez Date of | | | 1955 Mut[address] Cashier Julien Zamora Age | | | 62 year(s) Interpreting | | | [facility] | | | Cad Designer Drafter | | | Mara Patton MD Gender | | | Female Nurse | | | Stress Inspector Rubber Stamp Die Procedure Type of Study TTE procedure: | [...] Atrium Left Ventricle EF | | | Vevrsmrzx06% | | | Electronically signed by 422 GroupMara kennedy MD(Interpreting physician) on | | | [...] | | | | | | EF Bwttjjcmk69% | | | | | + + --+ + + | Procedure Note | + + | Avelino, Rad Results In - 08/18/2017 11:38 AM PDT Transthoracic Echocardiography Report | | (TTE) Demographics Patient Name MARCELLA MONTAÑO I Room Number 258 Patient | | Number [id number] Date of Study 08/18/2017 Visit Number [id number] | | Referring Physician BRI Sánchez Date of | | 1955 Mut[address] Cashier Julien Zamora Age 62 year(s) | | Interpreting [facility] Cad Designer Drafter | | Mara Patton MD Gender | | Female Nurse Stress TechnicianProcedureType of | | Study TTE procedure: ECHO Complete, Add-on Items, COLOR DOPPLER, COMPLETE | | DOPPLER.Procedure dateDate: 08/18/2017Start: 07:21 AMTechnical Quality: Adequate | | visualizationStudy Location: PortableIndications: [facility] 425.4/ I42.9.Patient | | Status: [...] Left Atrium Left Ventricle EF | | Kgmyvayuf78% | |Conclusions | |Summary | |1. Small [...] Left Ventricle | | | | EF Dztttymzg23% | + + + +---------+ + + [...] | | | Arterial | Performed by [facility] [address] | mmol/L | SACRED [...] [address] | [place] [address] | | | [facility]ENTER | [...] mg/dL | SACRED | | | | [place] | | HEART | | | |Performed by [facility] [address], [place] | | MEDICAL | | | [...] + + | [facility] SACRED | [address] | [place], [place] | | | [facility] [...] [facility] | | | | Performed by [facility] [address] | | SACRED | | | | [address] [place], [place] | | HEART | | | | [address] | | MEDICAL | | | | [...] + | GILBERTO NICHOLAS | [address] | [place] [address] | | | [facility] [...] CE | | | ARTERIAL | by [facility] [address], | | SACRED | | | | [place] [address] | | HEART | | | |Performed by [facility] [address], [place] [address] | | MEDICAL | | | | [...] NICHOLAS | [address] | [place] [address] | | | [facility] | | | | | [...] PROVIDE NCE | | | | by [facility] [address], | | SACRED | | | | [place] [address] | | HEART | | | |Performed by [facility] [address], [place] [address] | | MEDICAL | | | | [...] GILBERTO NICHOLAS | [address] | [place] [address] | | | [facility] | | | | | [...] | | LABORATORY | | | | [facility] [address], | | [place] | | | | [place] [address] | | | | + + + + + + + + | Specimen | + + | Blood specimen | | (specimen) | + + + + + + + | Performing | Address | City/State/Zipcode | Phone Number | | Organization | | | | + + + + + | GILBERTO NICHOLAS | [address] | [place] [address] | | | [facility] [...] PROVIDE NCE | | | | by [facility] [address], | | SACRED | | | | [place] [address] | | HEART | | | |Performed by [facility] [address], [place] [address] | | MEDICAL | | | | [...] NICHOLAS | [address] | [place] | | | [facility] [...] YUNIOR CE | | | | by [facility] [address], | | SACRED | | | | [place] | | HEART | | | |Performed by [facility] [address], [place] | | MEDICAL | | | [...] + | GILBERTO NICHOLAS | [address] | [place] [address] | | | [facility] | | | | | CELESTE [...] | | MEDICAL | | | | [facility] [address] | | CENTER | | | | [place] [address] | | LABORATORY | | | | [...] + | GILBERTO NICHOLAS | [address] | [place] [address] | | | [facility] [...] | | SACRED | | | | [place] | | HEART | | | |Performed by [facility] [address], [place] | | MEDICAL | | | [...] + + | GILBERTO NICHOLAS | [address] | [place] | | | [facility] [...] - 1.030 | [facility] | | | Harmans | | | SACRED | | | [...] | | | SOURCE | Performed by [facility] [address] | | SACRED | | | | [address] [place] | | HEART | | | | [address] | | MEDICAL | | | | [...] + + | GILBERTO SACRED | [address] | [place] [address] | | | HEART [facility] | | | | [...] PROVIDE NCE | | | | by [facility] [address], | | SACRED | | | | [place] [address] | | HEART | | | |Performed by [facility] [address], [place] [address] | | MEDICAL | | | | [...] + | [facility] SACRED | [address] | [place] [address] | | | [facility] | | | | [...] [facility] | | | Source | by [facility] [address], | | SACRED | | | | [place] [address] | | HEART | | | |Performed by [facility] [address], [place] [address] | | MEDICAL | | | | [...] + + | GILBERTO NICHOLAS | [address] | [place] [address] | | | [facility] [...] and a short | | | 5 Irish vascular sheath was placed. A 5 Irish Scott 1 catheter | | | was [...] performed and a short | | 5 Irish vascular sheath was placed. A 5 Irish Scott 1 catheter | | was formed [...] | | | | | seconds.Performed by [facility] | | | | | | [address], | | | | | | [place] [address] | | | | + + + + + + + + | Specimen | + + | Blood specimen | | (specimen) | + + + + + + + | Performing | Address | City/State/Zipcode | Phone Number | | Organization | | | | + + + + + | GILBERTO NICHOLAS | [address] | [place] [address] | | | [facility] [...] | | | Normalized | Performed by [facility] [address] | mg/dL | SACRED | | | | [address] [place] | | HEART | | | | [address] | | MEDICAL | | | | [...] + + | GILBERTO NICHOLAS | [address] | [place] [address] | | | [facility] [...] | [facility] | | | | by [facility] [address], | mmol/L | SACRED | | | | [place] | | HEART | | | |Performed by [facility] [address], [place] | | MEDICAL | | | [...] SACRED | [address] | [place], [place] | | | [facility]ICAL [facility] [...] | [facility] | | | | by [facility] [address], | mmol/L | SACRED | | | | [place] [address] | | HEART | | | |Performed by [facility] [address], [place] [address] | | MEDICAL | | | | [...] + | GILBERTO NICHOLAS | [address] | [place] [address] | | | [facility] [...] [facility] | | | | Performed by [facility] [address] | | SACRED | | | | [address] [place] | | HEART | | | | [address] | | MEDICAL | | | | [...] + + | GILBERTO SACRJAD | [address] | [place] [address] | | | [facility] [...] CE | | | ARTERIAL | by [facility] [address], | | SACRED | | | | [place] [address] | | HEART | | | |Performed by [facility] [address], [place] [address] | | MEDICAL | | | | [...] + + | GILBERTO NICHOLAS | [address] | [place] [address] | | | [facility] [...] PROVIDE NCE | | | | by [place] [address] [address], | | SACRED | | | | [place] [address] | | HEART | | | |Performed by [facility] [address], [place] [address] | | MEDICAL | | | | [...] + | GILBERTO NICHOLAS | [address] | [place] [address] | | | [facility] [...] | | | | | | [facility] | | | | | | [facility] | | | | | | [facility] | | | | | [facility] | | | | | | [facility] | | + + + + + + | Rh Type | Positive | | REFERENCE | | | | | | [facility] | | | | | | [facility] | | | | | | [facility] | | | | | | [facility] | | | | | | [facility] | | + + + + + + + + | Specimen | + + | | + + + + + | Narrative | Performed At | + + + | Specimen Expiration Date: [id number] | [facility]ENCE LAB | | | [facility] | | | [facility] | | [facility] | + + + + + + + + | Performing | Address | City/State/Zipcode | Phone Number | | Organization | | | | + + + + + | REFERENCE LAB | [address] | [place] [address] | [phone] | | [facility] | | | | | [facility] [...] YUNIOR CE | | | | by [facility] [address], | | SACRED | | | | [place] | | HEART | | | |Performed by [facility] [address], [place] | | MEDICAL | | | [...] | [address] | [place] | | | [facility] [...] | | MEDICAL | | | | [facility] [address], | | CENTER | | | | [place] [address] | | LABORATORY | | | | [...] NICHOLAS | [address] | [place] [address] | | | [facility] [...] ENCE | | | Basophils | by [facility] [address], | K/uL | SACRED | | | | [place] [address] | | HEART | | | |Performed by [facility] [address], [place] [address] | | MEDICA L | | | [...] + + | GILBERTO NICHOLAS | [address] | [place] [address] | | | [facility] [...] | | | | | | [facility] | | | | | | [facility] | | | | | | [facility] | | | | | | [facility] | | | | | | [facility] | | + + + + + + | Rh Type | PositiveComment: Patient | | REFERENCE | | | | is remote crossmatch | | [facility] | | | | eligible | | [facility] | | | | | | [facility] | | | | | | [facility] | | | | | | CENTER | | + + + + + + | Antibody | Negative | | REFERENCE | | | Screen | | | [facility] | | | | | | [facility] [...] + + + | Specimen Expiration Date: [id number] | [facility] LAB | | | [facility] | | | [facility] | | [facility] | + + + + + + + + | Performing | Address | City/State/Zipcode | Phone Number | | Organization | | | | + + + + + | REFERENCE LAB | [address] | [place] [address] | [phone] | | [facility] | | | | | [facility] [...] | | | | | | Starting [facility] 08/18/17 at 0508 | | | | [...] | | | (after last modification) on [facility] | | | | | | | [...] | | | | | | | MCLAjcmmqvawr-xmzoqdrillc-irqwxmf | | | | | | | [...] | | | BID, First dose on [facility] 08/18/17 at | | | | | [...] | | | | < 4.75, Starting [facility] 08/18/17 at | | | | | [...] 5 mLs | | | | Starting [facility] 08/18/17 at 0003 | | 18 12:03 | | | | | | | AM PDT | | | | + +-------+ +-------+---+---+ +---+---+ | | | +---+---+ + +-------+ +-------+---+ + | lidocaine 1% injection PRN, | Given | 08/19/19 | 5 mLs | | Other | | Starting [facility] 08/18/17 at 1520 | | 18 3:20 [...] 4:04 | | | | | Starting [facility] 08/18/17 at 1450 | | PM PDT | | | | + +-------+ +------+---+---+ +-------+ +------+---+---+ | Given | 08/19/19 | 1 mg | | | | | 18 2:50 | | | | | | PM PDT | | | | +-------+ +------+---+---+ +---+---+ | | | +---+---+ + +-------+ +---+---+---+ | srbxylur-izoqsviej-cugznewfje | Given | 08/20/19 | | | [...] | | | | | | Starting [facility] 08/18/17 at 0616, | | | | [...]
--- OUTSIDE RECORDS SUMMARY | ~2019-01-22 | XMS | Encounter Summary ---
Demographics + + + | Address | [address] | | | [place] [address] | + + + | Home Phone | | + + + | Preferred Language | Unknown | + + + | Marital Status | | + + + | Holiness Affiliation | 1028 | + + + | Race | Unknown | + + + | Ethnic Group | Unknown | + + + Author + + + | Author | [facility] | | | and [place] | + + + | Organization | [facility] | | | and [place] | + + + | Address | Unknown | + + + | Phone | Unavailable | + + + Support + + + + + | Name | Relationship | Address | Phone | + + + + + | Joseluis Desai | ECON | [place] | | | | | [address] | | + + + + + | Mila Desai | ECON | Unknown | | + + + + + Care Team Providers + +------+ + | Care Watch Band Assembler Name | Role | Phone | [...] Forrest SMITH | | | | | [phone] | [place] [address] | | +--------+ + + + + [...] [place] | | | | | | [address] | | | | | | | [...] for this | | | e | 2:15 PM | | procedure are in the | | | | PDT | | results section. | + +--------+ + + + documented in this encounter Results XR Chest 1 Vw (08/17/2017 2:15 PM PDT) + + | Specimen | [...]
--- OUTSIDE RECORDS SUMMARY | ~2019-01-22 | XMS | Encounter Summary ---
Demographics + + + | Address | [address] | | | [place] [address] | + + + | Home Phone | | + + + | Preferred Language | Unknown | + + + | Marital Status | | + + + | Scientology Affiliation | 1028 | + + + | Race | Unknown | + + + | Ethnic Group | Unknown | + + + Author + + + | Author | [facility] | | | and [place] | + + + | Organization | [facility] | | | and [place] | + + + | Address | Unknown | + + + | Phone | Unavailable | + + + Support + + + + + | Name | Relationship | Address | Phone | + + + + + | Joseluis Desai | ECON | [place] | | | | | [address] | | + + + + + | Mila Desai | ECON | Unknown | | + + + + + Care Team Providers + +------+ + | Care Music Writer Name | Role | Phone | + [...] Forrest SMITH | | | | | [phone] | [place] [address] | | +--------+ + + + + [...] | | | | | [place] | | | | | | [address] | | | | | | | [...]
--- OUTSIDE RECORDS SUMMARY | ~2019-01-22 | XMS | Encounter Summary ---
Demographics + + + | Address | [address] | | | [place] [address] | + + + | Home Phone | | + + + | Preferred Language | Unknown | + + + | Marital Status | | + + + | Quaker Affiliation | 1028 | + + + | Race | Unknown | + + + | Ethnic Group | Unknown | + + + Author + + + | Author | [facility] | | | and [place] | + + + | Organization | [facility] | | | and [place] | + + + | Address | Unknown | + + + | Phone | Unavailable | + + + Support + + + + + | Name | Relationship | Address | Phone | + + + + + | Joseluis Desai | ECON | [place] | | | | | [address] | | + + + + + | Mila Desai | ECON | Unknown | | + + + + + Care Team Providers + +------+ + | Care Assurance Associate Name | Role | Phone | + [...] Forrest SMITH | | | | | [phone] | [place] [address] | | +--------+ + + + + [...] [place] | | | | | | [id number] | | | | | | | | +--------+---------+ + + + documented as of this encounter Procedures + +--------+ + + + | Procedure Name | Priori | Date/Time | Associated Diagnosis | Comments | | | ty | | | | + +--------+ + + + | XR CHEST 2 VIEWS | Routin | 09/13/2017 | | Results for this | | | e | 6:45 PM | | procedure are in the | | | | PDT | | results section. | + +--------+ + + + documented in this encounter Results XR Chest 2 Vws (09/13/2017 6:45 PM PDT) + + | Specimen | [...]
--- OUTSIDE RECORDS SUMMARY | ~2019-01-22 | XMS | Clinical Summary ---
Demographics + + + | Address | [address] | | | [place] [address] | + + + | Home Phone | | + + + | Preferred Language | Unknown | + + + | Marital Status | | + + + | Advent Affiliation | 1028 | + + + | Race | Unknown | + + + | Ethnic Group | Unknown | + + + Author + + + | Author | [facility] | | | and [place] | + + + | Organization | [facility] | | | and [place] | + + + | Address | Unknown | + + + | Phone | Unavailable | + + + Support + + + + + | Name | Relationship | Address | Phone | + + + + + | Joseluis Desai | ECON | [place] | | | | | [address] | | + + + + + | Mila Desai | ECON | Unknown | | + + + + + Care Team Providers + +------+ + | Care Rail Signal Designer Name | Role | Phone | + [...] [place] | | | | | | [address] | | | | | | | [...] | | | | | 2021 | /[address] | | 1 on 08/18/2017 by Dilcia, [...] +--------+ +---------+--------+ | MEDICARE | MEDICA | [id number] | 06/13/19 | [phone] | | Medica | | | RE | | 19-Pre | 5 | | re | | | PART A | | sent | | | | | | AND B | | | | | | + +--------+ +--------+ +---------+--------+ | [employer] PLAN | MODA | [id number] | 03/01/ | [phone] | | Medica | | MEDICAID HMO [...] | | al/Fam | | 1955 | [phone] | [place] | | | julito | | | 2 (Home) | [address] | + +--------+ +--------+ + + Advance Directives + + + + + | Type | Date Recorded | Patient | Explanation | | | | Windows Technical Specialist | | + + + + + | Power of | | | | | Mandarin Teacher | | | | + + + [...]
--- OUTSIDE RECORDS SUMMARY | ~2019-01-22 | XMS | Encounter Summary ---
Demographics + + + | Address | [address] | | | [place] [address] | + + + | Home Phone | | + + + | Preferred Language | Unknown | + + + | Marital Status | | + + + | Protestant Affiliation | 1028 | + + + | Race | Unknown | + + + | Ethnic Group | Unknown | + + + Author + + + | Author | [facility] | | | and [place] | + + + | Organization | [facility] | | | and [place] | + + + | Address | Unknown | + + + | Phone | Unavailable | + + + Support + + + + + | Name | Relationship | Address | Phone | + + + + + | Joseluis Desai | ECON | [place] | | | | | [address] | | + + + + + | Mila Desai | ECON | Unknown | | + + + + + Care Team Providers + +------+ + | Care Dramatic Coach Name | Role | Phone | + [...] Forrest SMITH | | | | | [phone] | [place] [address] | | +--------+ + + + + [...] | | | | | [place] | | | | | | [address] | | | | | | | [...]
--- OUTSIDE RECORDS SUMMARY | ~2019-01-22 | XMS | Encounter Summary ---
Demographics + + + | Address | [address] | | | [place] [address] | + + + | Home Phone | | + + + | Preferred Language | Unknown | + + + | Marital Status | | + + + | Evangelical Affiliation | 1028 | + + + | Race | Unknown | + + + | Ethnic Group | Unknown | + + + Author + + + | Author | [facility] | | | and [place] | + + + | Organization | [facility] | | | and [place] | + + + | Address | Unknown | + + + | Phone | Unavailable | + + + Support + + + + + | Name | Relationship | Address | Phone | + + + + + | Joseluis Desai | ECON | [place] | | | | | [address] | | + + + + + | Mila Desai | ECON | Unknown | | + + + + + Care Team Providers + +------+ + | Care Leather Crafter Name | Role | Phone | + [...] Forrest SMITH | | | | | [phone] | [place] [address] | | +--------+ + + + + [...] [place] | | | | | | [address] | | | | | | | [...]
--- OUTSIDE RECORDS SUMMARY | ~2019-01-22 | XMS | Encounter Summary ---
Demographics + + + | Address | [address] | | | [place] [address] | + + + | Home Phone | | + + + | Preferred Language | Unknown | + + + | Marital Status | | + + + | Moravian Affiliation | 1028 | + + + | Race | Unknown | + + + | Ethnic Group | Unknown | + + + Author + + + | Author | [facility] | | | and [place] | + + + | Organization | [facility] | | | and [place] | + + + | Address | Unknown | + + + | Phone | Unavailable | + + + Support + + + + + | Name | Relationship | Address | Phone | + + + + + | Joseluis Desai | ECON | [place] | | | | | [address] | | + + + + + | Mila Desai | ECON | Unknown | | + + + + + Care Team Providers + +------+ + | Care Screener Operator Name | Role | Phone | + +------+ + | Bry Vaughn DO | PCP | | + +------+ + Encounter Details +--------+ + + + + | Date | Type | Department | Care Team | Description | +--------+ + + + + | 08/17/ | Hospital | [facility] | Conversion | Diagnosis unknown | | 2018 | Encounter | CONVERSION [address] | Transaction, | | | | | [address] | Provider Unknown | | | | | [place], [place] | [phone] | | | | | [address] | | | | | | [phone] | | | +--------+ + + + [...] | | 2019 | Visit | | [address] | | | | | | [place] | | | | | | [address] | | | | | | | [...] this | | PULMONARY | e | 4:01 PM | | procedure are in the | | | | PDT | | results section. | + +--------+ + + + documented in this encounter Results CT Angiogram Pulmonary w Contrast (08/17/2017 4:01 PM PDT) + + | Specimen | + + | | + + + + + | Narrative | Performed At | + + + | This is a non-reportable procedure without a radiologist report and | | | is used for image storage only | | + + + + + | Procedure Note | + + | Daniel You - 10/25/2018 2:26 PM PDT This is [...]
--- OUTSIDE RECORDS SUMMARY | ~2019-01-22 | XMS | Encounter Summary ---
Demographics + + + | Address | [address] | | | [place] [address] | + + + | Home Phone | | + + + | Preferred Language | Unknown | + + + | Marital Status | | + + + | Baptism Affiliation | 1028 | + + + | Race | Unknown | + + + | Ethnic Group | Unknown | + + + Author + + + | Author | [facility] | | | and [place] | + + + | Organization | [facility] | | | and [place] | + + + | Address | Unknown | + + + | Phone | Unavailable | + + + Support + + + + + | Name | Relationship | Address | Phone | + + + + + | Joseluis Desai | ECON | [place] | | | | | [address] | | + + + + + | Mila Desai | ECON | Unknown | | + + + + + Care Team Providers + +------+ + | Care Engine Lathe Set Up Operator Tool Name | Role | Phone | + [...] Forrest SMITH | | | | | [phone] | [place] [address] | | +--------+ + + + + [...] [place] | | | | | | [address] | | | | | | | [...]
--- OUTSIDE RECORDS SUMMARY | ~2019-01-22 | XMS | Encounter Summary ---
Demographics + + + | Address | [address] | | | [place] [address] | + + + | Home Phone | | + + + | Preferred Language | Unknown | + + + | Marital Status | | + + + | Hindu Affiliation | 1028 | + + + | Race | Unknown | + + + | Ethnic Group | Unknown | + + + Author + + + | Author | [facility] | | | and [place] | + + + | Organization | [facility] | | | and [place] | + + + | Address | Unknown | + + + | Phone | Unavailable | + + + Support + + + + + | Name | Relationship | Address | Phone | + + + + + | Joseluis Desai | ECON | [place] | | | | | [address] | | + + + + + | Mila Desai | ECON | Unknown | | + + + + + Care Team Providers + +------+ + | Care Rn Outpatient Surgery Name | Role | Phone | + [...] + + | 08/24/ | Telephone | [facility] | Riky Rodriguez | Hospital Follow-up | | 2018 | | Internal Medicine | MD [address] | | | | | [facility] [address] | | | | | [address] [place], [place] | [place] [address] | | | | | [address] | [phone] | | | | | [phone] | | | +--------+ + + + [...] [place] | | | | | | [address] | | | | | | | | +--------+---------+ + + + documented as of this encounter Visit Diagnoses Not on filedocumented in this encounter"
--- OUTSIDE RECORDS SUMMARY | ~2019-01-22 | XMS | Encounter Summary ---
Demographics + + + | Address | [address] | | | [place] [address] | + + + | Home Phone | | + + + | Preferred Language | Unknown | + + + | Marital Status | | + + + | Yarsanism Affiliation | 1028 | + + + | Race | Unknown | + + + | Ethnic Group | Unknown | + + + Author + + + | Author | [facility] | | | and [place] | + + + | Organization | [facility] | | | and [place] | + + + | Address | Unknown | + + + | Phone | Unavailable | + + + Support + + + + + | Name | Relationship | Address | Phone | + + + + + | Joseluis Desai | ECON | [place] | | | | | [address] | | + + + + + | Mila Desai | ECON | Unknown | | + + + + + Care Team Providers + +------+ + | Care Instrumentation Instructor Name | Role | Phone | + [...] | +--------+ + + + + | 08/18/ | Anesthesia | [facility] | Misael Edmond, | | | 2017 | Event | [facility] | HOSE TENDER [address] | | | | | CARDIAC ICU [address] | [place] [address] | | | | | [address] [place] | [phone] | | | | | [address] | | | | | | [phone] | | | +--------+ + + + + Anesthesia Record + + + + + | Procedure Name | Responsible | Anesthesia Start | Anesthesia Stop Time | | | Anesthesiologist | Time | | + + + + + | LINE:ARTERIAL LINE | Misael Edmond, | 08/18/17 1237 | 08/18/17 1247 | | PLACEMENT | HOSE TENDER | | | + + + + + +----+---+ + + | Da | T | Event | Comment | | te | i | | | | | m | | | | | e | | | +----+---+ + + | 06 | 1 | An Start | Reassessment prior to anesthesia induction/procedure. | | /0 | 2 | | | | 7/ | 3 | | | | 20 | 7 | | | | 18 | | | | +----+---+ + + | | 1 | Art Line | | | | 2 | Start | | | | 4 | | | | | 0 | | | +----+---+ + + | | 1 | Art Line | | | | 2 | Stop | | | | 4 | | | | | 7 | | | +----+---+ + + | | 1 | An Stop | Paged to room to do arterial line. Easy placement on R radial | | | 2 | | art, transducing appropriately. | | | 7 | | | +----+---+ + + | | 1 | | | | | 3 | | | | | 0 | | | | | 3 | | | +----+---+ + + +------+ | Meds | +------+ + + + No medications | on file. | + + + + + | No agents on file. | + + + + | No blood administrations on file. | + + +--------+ + + + | Type | Details | Placement | Removal | +--------+ + + + | Periph | 05/08/17; 0130; Left; Forearm; | 05/08/17 0130 by | 06/05/18 1643 by | | eral | [id number] catheter system; | Jeff Cloud RN | User Epic | | IV | 20 gauge; 06/05/18 | | | | | (Removed/Completed by utility); | | | | | 1643 (Removed/Completed by | | | | | utility) | | | +--------+ + + + | Wound | 05/09/17; 1337; Right; anterior; | 05/09/17 1337 by | 06/05/18 1643 by | | | wrist; puncture; 06/05/18 | Gerardo Haq, | User Epic | | | (Removed/Completed by utility); | Technologist | | | | 1643 (Removed/Completed by | | | | | utility) | | | +--------+ + + + | PICC | 08/17/17; yes; Yes; Placed at St | 08/17/17 0000 by Ever | 08/23/17 1047 by | | Double | [facility] -- [place]; | Sera Chicas RN | Andrew Byers RN | | Lumen | basilic vein (medial side of | | | | | arm), left; no longer indicated, | | | | | removed per policy/procedure, | | | | | catheter/device intact; 08/23/17; | | | | | 1047 | | | +--------+ + + + | Periph | 08/17/17; Right; Forearm; removed | 08/17/17 0000 by Ever | 08/21/17 0220 by | | eral | in past; 08/21/17; 022 | Sera Chicas RN | Trian Cordova, | | IV | | | RN | +--------+ + + + | NG/OG | 08/17/17; 0600; Cottle sump; left | 08/17/17 0600 by | 08/19/17 1100 by | | | nostril; stomach; medication | Dorcas Troncoso RN | Dorcas Troncoso RN | | | administration, gastric | | | | | decompression; tubing intact, no | | | | | signs/symptoms of discomfort; | | | | | placed in [facility]; | | | | | 08/19/17; 1100 | | | +--------+ + + + | Airway | Placement Date: 08/17/17; | 08/17/172208 by | 08/19/17 0900 by | | | Placement Time: 2208; Airway | Caleb Forte, COIN BOX INSPECTOR | Volodymyr Teague, JOSEFA | | | Type: endotracheal; Size: 7.5; | | | | | Removal: per order, removed by | | | | | RT; Removal Date: 08/19/17; | | | | | Removal Time: 09 | | | +--------+ + + + | Urethr | 08/17/17; 2229; indicated for | 08/17/172229 by Ever | 08/19/172048 by | | al | critically ill with need for | Sera Chicas RN | Erasmo Herron, | | Monse | accurate I/O; All elements; All | | RN | | er | elements; All elements; | | | | | indwelling catheter with core | | | | | temperature probe; 100% silicone; | | | | | 16; None; 1; 10; 10; none; | | | | | 08/19/17; 2048 | | | +--------+ + + + | Arteri | 08/18/17; 1300 (created via | 08/18/17 1300 by | 08/20/17 1055 by | | al | procedure documentation); | Misael Edmond, | Lucian Guthrie RN | | Line | Chlorhexidine/Isopropyl Alcohol; | HOSE TENDER | | | | under [place]; Right; radial artery; | | | | | 20 gauge; continuous blood | | | | | pressure monitoring, frequent | | | | | blood gas measurement; | | | | | intradermal injection; landmarks; | | | | | other (see comments); no longer | | | | | indicated, catheter intact; | | | | | 08/20/17; 1055 | | | +--------+ + + + documented in this encounter Social History + +-------+ +--------+ + | [...] [place] | | | | | | [address] | | | | | | | | +--------+---------+ + + + documented as of this encounter Procedures + +--------+ + + + | Procedure Name | Priori | Date/Time | Associated Diagnosis | Comments | | | ty | | | | + +--------+ + + + | ANE ARTERIAL LINE | Routin | 08/18/2017 | | Results for this | | NOTE | e | 12:59 PM | | procedure are in the | | | | PDT | | results section. | + +--------+ + + + documented in this encounter Results Anesthesia Arterial Line Note (08/18/2017 12:59 PM PDT) + + + | Narrative | Performed At | + + + | Misael Edmond CRNA 08/18/2017 13:00 Arterial Line Placement | | | Indication: continuous blood pressure monitoring and | | | acid-base/laboratory analysis Prep solution: | | | chlorhexidine/isoproplyl alcohol Patient was: under GA Pain | | | prevention: 1% lidocaine infiltration Laterality: right | | | Artery:radial Size: 20 g Localization technique: landmark | | | Securement: transparent dressing Performed by: MISAEL EDMOND | | | Electronically Signed by: Misael Edmond CRNA | | | ESig date/time: 08/18/2017 12:59 | | + + + + + | Procedure Note | + + | Misael Edmond CRNA - 08/18/2017 12:59 PM PDT Arterial Line PlacementIndication: | | continuous blood pressure monitoring and acid-base/laboratory analysisPrep solution: | | chlorhexidine/isoproplyl alcoholPatient was: under GAPain prevention: 1% lidocaine | | infiltrationLaterality: rightArtery:radialSize: 20 gLocalization technique: | | landmarkSecurement: transparent dressingPerformed by: MISAEL EDMOND AElectronically | | Signed by: Misael Edmond CRNA ESi date/time: 08/18/2017 12:59 | |Laterality: right | |Artery:radial | |Size: 20 g | |Localization technique: landmark | |Securement: transparent dressing | |Performed by: MISAEL EDMOND | | | | | |Electronically Signed by: Misael Edmond CRNA ESi date/time: 018 12:59 | + + documented in this encounter Visit Diagnoses Not on filedocumented in this encounter"
--- OUTSIDE RECORDS SUMMARY | ~2019-01-22 | XMS | Encounter Summary ---
Demographics + + + | Address | [address] | | | [place] [address] | + + + | Home Phone | | + + + | Preferred Language | Unknown | + + + | Marital Status | | + + + | Mandaeism Affiliation | 1028 | + + + | Race | Unknown | + + + | Ethnic Group | Unknown | + + + Author + + + | Author | [facility] | | | and [place] | + + + | Organization | [facility] | | | and [place] | + + + | Address | Unknown | + + + | Phone | Unavailable | + + + Support + + + + + | Name | Relationship | Address | Phone | + + + + + | Joseluis Desai | ECON | [place] | | | | | [address] | | + + + + + | Mila Desai | ECON | Unknown | | + + + + + Care Team Providers + +------+ + | Care Highway Engineering Technician Name | Role | Phone | [...] | Event | [facility] | DIRECTOR [facility] [address] | | | | | CARDIAC ICU [address] | [place] [address] | | | | | [address] [place] | [phone] | | | | | [address] | | | | | | [phone] | | | +--------+ + + + + Anesthesia Record + + + + + | Procedure Name | Responsible | Anesthesia Start | Anesthesia Stop Time | | | Anesthesiologist | Time | | + + + + + | LINE:ARTERIAL LINE | Misael Edmond, | 08/18/17 1237 | 08/18/17 1247 | | PLACEMENT | DIRECTOR EHS | | | + + + + [...] 06/05/18 1643 by | | eral | [id number] catheter system; | Jeff Cloud RN | [...] 08/21/17; 022 | Sera Chicas RN | Trina Cordova, | | IV | | | RN | +--------+ + + + | NG/OG | 08/17/17; 0600; Rowan sump; left | 08/17/17 0600 by | 08/19/17 1100 by | | | nostril; stomach; medication | Dorcas Troncoso RN | Dorcas Troncoso RN | | | administration, gastric | | | | | decompression; tubing intact, no | | | | | signs/symptoms of discomfort; | | | | | placed in [facility]; | | | | | 08/19/17; 1100 | | | +--------+ + + + | Airway | Placement Date: 08/17/17; | 08/17/172208 by | 08/19/17 0900 by | | | Placement Time: 2208; Airway | Caleb Forte, SAND MILLER | Volodymyr Teague, JOSEFA | | | [...] | | Line | Chlorhexidine/Isopropyl Alcohol; | DIRECTOR EHS | | | | under [place]; Right; [...] [place] | | | | | | [address] | | | | | | | [...]
--- OUTSIDE RECORDS SUMMARY | ~2019-01-22 | XMS | Encounter Summary ---
Demographics + + + | Address | [address] | | | [place] [address] | + + + | Home Phone [...] | [place] | | | | | [address] | | + + + + + | Mila Desai | ECON | Unknown | | + + + + + Care Team Providers + +------+ + | Care Business Information Manager Name | Role | Phone | [...] + + | 05/12/ | Telephone | [facility] | Dewey Harris, | Hospital Follow-up | | 2018 | | [facility] | PharmD NEED ADDRESS | | | | | [address] | UPDATED | | | | | [place] [address] | | | | | | [phone] | | | +--------+ + + + [...] [place] | | | | | | [address] | | | | | | | | +--------+---------+ + + + documented as of this encounter Visit Diagnoses Not on filedocumented in this encounter"
--- OUTSIDE RECORDS SUMMARY | ~2019-01-22 | XMS | Encounter Summary ---
Demographics + + + | Address | [address] | | | [place] [address] | + + + | Home Phone | | + + + | Preferred Language | Unknown | + + + | Marital Status | | + + + | Gnosticism Affiliation | 1028 | + + + | Race | Unknown | + + + | Ethnic Group | Unknown | + + + Author + + + | Author | [facility] | | | and [place] | + + + | Organization | [facility] | | | and [place] | + + + | Address | Unknown | + + + | Phone | Unavailable | + + + Support + + + + + | Name | Relationship | Address | Phone | + + + + + | Joseluis Desai | ECON | [place] | | | | | [address] | | + + + + + [...] | | | | | unspecified | [place] | | | | | | COPD type | [address] | | | | | | (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 | Orlando Wall MD | Chronic obstructive | | 2018 - | Encounter | [facility] ICU [address] | [address] | pulmonary disease, | | | | [place], | [place], [place] | unspecified COPD | | 05/11/ | | [place] [address] | [address] | type (HCC); Acute on | | 2017 | | [phone] | | chronic respiratory | | | | | Marcio Boone, | failure with | | | | | MD Narcisa [address] | hypoxia and | | | | | [address] [place] | hypercapnia ([facility]); | | | | | [place] [address] | NSTEMI (non-ST | | | | | [phone] | elevated myocardial | | | | | | infarction) ([facility]); | | | | | | Non-ST elevation | | | | | | myocardial | | | | | | infarction (NSTEMI), | | | | | | type [address]) | +--------+ + + + + Social [...] might be differ ent from the original. [facility] [place] [facility]PITAL[facility] DISCHARGE SUMMARY Pt. Name/Age/: Amy Coleman [...] given by daughter, who reported that patibruno t has been having some chest and epigastric pain, she was going upstairs to get some antacid s, however, upon arriving to the top of the stairs she got increasingly more dyspneic, to th e point that she could body told. Per daughter patient was turning blue. She call 911, pat ient became unresponsive, in she was intubated on [...] started on lisinopril 10 mg daily, jordan e on aspirin 81 mg daily. She [...] on discharge day PROCEDURES AND CONSULTS: Procedures [facility] CORONARY ANGIOGRAPHY DOMINANCE: Right LEFT MAIN [...] week. Specialty: Internal Medicine Contact information: [address] [facility] [address] [place] [address] Demarcus Jurado MD In 3 weeks. Specialty: Gastroenterology Contact information: [address], [address] [place] [id number] Condition: Patient being discharged with condition improved Diet: low salt low fat Greater than 30 minutes were spent on discharge and coordination of post-hospital care. Electronically signed by: Narcisa Boone MD, 05/11/2017 7:41 [facility] Portions of this chart may have been created with Pigit voice recognition software. Occasi onal wrong-word or [...] worse Dizziness or weakness Date Last Reviewed: 11/13/201519997644-1221 [employer]. [address] [place] [address]. All righ ts reserved. This information is not intended as a substitute for professional medical care. Always follow your healthcare professional's instructions. AttachmentsThe following attachments cannot be sent through Care Everywhere.Kicking the Smo miguel Habit (Japanese)Coronary Artery Disease (CAD), Understanding (Japanese)documented in this encounter Medications at Time of [...] Dewey Harris PharmD - 05/11/2017 12:06 PM Archanabozena Coleman was admitted for COPD exa cerbation [...] above and all questions were answered. Pharmaci st will follow-up with patient in one to two business days. Patient was provided with a billy nciled discharge medication list as part of their AVS instructions. Encouraged patient to sh are medication list with healthcare providers and keep list current. Dewey Harris PharmD 05/11/2017 12:05 Dominique Carrasco, COMMERCIAL DRIVER'S LICENSE DRIVER - 05/11/2017 10:38 AM PSTFormatting of this note might be different from the lois ginal. Amy walked with me around the the nurse station [place] without any supplemental oxygen, h er SpO2 values remained > 93%, H/R 88, Respirations were 18 to 20. 05/11/17 1037 Oxygen Therapy O2 Device room air Home O2 eval performed? yes Resting on RA (%) 95 Exercising on RA (%) 97 Vitals Pulse 89 Resp 20 SpO2 98 % Carmelita Carrasco RRT - 05/11/2017 10:31 AM PSTAmy walked with me around the nurses station circl e without any supplemental oxygen on, her SpO2 value remained > 93%. No SOB observed pt mercy ed when asked if she was SOB. H/R remained in low 80's, respirations 18 to 20. Electronicall y signed by Carmelita Fulton RRT at 05/11/2017 10:37 AM Narcisa Bojorquez MD - 05/10/2017 7:23 AM PST [place], [place] HOSPITALIST PROGRESS NOTE Patient: Amy Coleman : 1955: Age: 61 y.o. MedRec: [id number] Admission date: 05/08/2017 Hospital day # : [...] leads V4-6 Confirmed by GEORGES HU, LUCIO ([id number]) on 05/10/2017 7:08:38 AM POC Glucose Collection [...] Procedure Component Value Units Date/Time Culture, Blood [[id number]] (Normal) Collected: 05/08/17 0145 Order Status: Completed Lab Status: Preliminary result Updated: 05/08/17 140 Specimen: Blood from Line Culture No growth: Monitored continually by instrument for 5 days Culture, Blood [[id number]] (Normal) Collected: 05/08/17 0119 Order Status: Completed Lab Status: Preliminary result Updated: 05/08/17 140 Specimen: Blood from Peripheral Blood Culture No growth: Monitored continually by instrument for 5 days Culture, MRSA [[id number]] Collected: 05/08/17 0032 Order Status: Completed Lab [...] 24-48 hrs Narcisa Boone MD 05/10/2017 7:23 [facility] Portions of this chart may have been created with Pigit voice recognition software. Occasi onal wrong-word or [...] ECGs available Confirmed by LUCIO SU MD ([id number]) on 05/08/2017 8:24:47 AM LVEF-TTE TRANSTHORACIC ECHO [...] lead V2 Confirmed by LUCIO SU MD ([id number]) on 05/09/2017 7:21:00 AM MG 05/08/2017 2.3 [...] Bojorquez MD - 05/09/2017 7:18 AM PST [facility] [place] [facility]PITAL[facility] PROGRESS NOTE Patient: Amy Coleman : 1955: Age: 61 y.o. MedRec: [id number] Admission date: 05/08/2017 Hospital day # : 1 Physician author: Narcisa Boone MD Today: 05/09/2017 Allergies: Allergies Allergen Reactions Amoxicillin Cephalexin Hydroxyzine Hcl Penicillins Ranitidine Hcl Current Medications: Current Facility-Administered Medications Medication Dose Route Frequency Provider Last Rate Last Dose acetaminophen (TYLENOL) tablet 650 mg 650 mg Oral Q4H PRN Narcisa Bonoe MD 650 mg at 05/09/17 0553 albuterol-ipratropium [...] ed Orlando Wall MD 14 mL/hr at 05/08/170 700 Units/hr at 05/08/17 213 insulin lispro [...] 1616 sodium chloride 0.9% (NS) infusion Intravenous Auto Tire Recapper Johnny Luther MD sodium chloride 0.9% (NS) [...] Procedure Component Value Units Date/Time Culture, Blood [[id number]] (Normal) Collected: 05/08/17 0145 Order Status: Completed Lab Status: Preliminary result Updated: 05/08/171400 Specimen: Blood from Line Culture No growth: Monitored continually by instrument for 5 days Culture, Blood [[id number]] (Normal) Collected: 05/08/17 0119 Order Status: Completed Lab Status: Preliminary result Updated: 05/08/171400 Specimen: Blood from Peripheral Blood Culture No growth: Monitored continually by instrument for 5 days Culture, MRSA [[id number]] Collected: 05/08/1731 Order Status: Sent Lab Status: [...] reports feeling malaise with shortness of breath (operations scheduler marla - not worse than baseline), headache [...] possible PCI Narcisa Boone MD 05/09/2017 7:18 [facility] Portions of this chart may have been created with Pigit voice recognition software. Occasi onal wrong-word or [...] bottles X Pharmacy list names: [facility] [place] [facility] Outside Information Vaccines up to date? [...] per week Marijuana smoke Daily Best possible COSMETICS COUNTER MANAGER medication list after pharmacy review: PT REPORTED [...] performed and electronically signed by Yolanda Grullon, Microbiology Lab Assistant 15:16 Reviewed by Светлана Mendoza, PharmRob 05/08/2017 15:28 Lavinia Peacock Chaplain - 05/08/2017 8:26 AM [facility] Spiritual Care Amy Coleman is a 61 y.o. female who is admitted for Respiratory failure (HCC) [J96.90]. Spiritual Assessment: Patient was intubated at the time of visit. Jydixpfe-od-odn, Raciel, was present and she reported that she is very close to the patient. She and the patient has discussed EOL toget her in the Chovlnab-we-ril is hoping for recovery for patient. Spiritual [...] can't relax until she knows h er enmcft-yc-jjd will be okay. Will see the patient as requested. If there are any other spiritual care issues that arise, please contact sourcing manager. Narcisa Bojorquez MD - 05/08/2017 7:21 AM PSTFormatting of this note might be different from the lois edgar. [facility] [place] [facility]ITAL[facility] PROGRESS NOTE Patient: Amy Coleman : 1955: Age: 61 y.o. MedRec: [id number] Admission date: 05/08/2017 Hospital day # : [...] ed Orlando Wall MD 16 mL/hr at 05/08/17337 800 Units/hr at 05/08/17337 insulin lispro (humaLOG [...] S tina Wall MD 12.1 mL/hr at 05/08/1744 30 mcg/kg/min at 05/08/1744 sodium chloride 0.9% (NS) infusion Intravenous Continuous Orlando Wall MD 150 mL/hr at 05/08/1702 150 mL at 05/08/17 06 Current Infusions: fentaNYL 75 mcg/hr (05/08/17 0707) heparin infusion 800 Units/hr (05/08/17337) propofol infusion 30 mcg/kg/min (05/08/1744) sodium chloride 0.9% 150 mL (05/08/17 06) Objective Data Point of care glucose No [...] Procedure Component Value Units Date/Time Culture, Blood [[id number]] Collected: 05/08/17 0145 Order Status: Sent Lab Status: In process Updated: 05/08/17152 Specimen: Blood from Line Culture, Blood [[id number]] Collected: 05/08/17118 Order Status: Sent Lab Status: In process Updated: 05/08/17152 Specimen: Blood from Peripheral Blood Culture, MRSA [[id number]] Collected: 05/08/1731 Order Status: Sent Lab Status: [...] respiratory arrest, never lost pulse. Transferred from [facility]. Family member at bedside reported patient [...] listed conditions Narcisa Boone MD 05/08/2017 7:21 [facility] Portions of this chart may have been created with Pigit voice recognition software. Occasi onal wrong-word or [...] JESSICAS | | | | | | [place] | | | | | | [address] | | | | | | | [...] ST. | [address] | [place], [place] | [phone] | | [facility] | | [address] | | | - LABORATORY | | [...] mL/min/1.73m2 | [facility] | | | FIJIAN | RATE,ESTIMATED | | MEDICAL | | | | mL/min/1.36s3Musq than | | CENTER - | | [...] | ine Ratio | | | [facility] | | [...] [address] | [place] | [phone] | | [facility] | | [address] | | | - LABORATORY | | [...] + | [facility] | [address] | [place] | [phone] | | [facility] | | [address] | | | - LABORATORY | | [...] | | | Eosinophils | | | [facility] | | [...] + | [facility] | [address] | [place] | [phone] | | [facility] | | [address] | | | - LABORATORY | | [...] [address] | [place] | [phone] | | [facility] | | [address] | | | - LABORATORY | | | | + + + + + POC Glucose (05/10/2017 4:54 PM PST) + +---------+ + + + | Component | Value | Ref Range | Performed | Pathologist | | | | | At | Signature | + +---------+ + + + | Glucose, | 113 (H) | 70 - 109 mg/dL | [facility] | | | POC | | | [...] [address] | [place] | [phone] | | [facility] | | [address] | | | - LABORATORY | | [...] [address] | [place] | [phone] | | [facility] | | [address] | | | - LABORATORY | | [...] | | | | | M/uL | [facility] | | | | | | MEDICAL | | | | | | CENTER - | | | | | | LABORATORY | | + + + + + + | Hemoglobin | 11.7 | 11.5 - 16.0 | [facility] | | | | | g/dL | . [facility] | | | | | | [...] + | [facility] | [address] | [place] | [phone] | | [facility] | | [address] | | | - LABORATORY | | [...] 0.59 (L) | 0.60 - 1.30 | [facility] | | | | | mg/dL | [facility] | | | | | | MEDICAL | | | | | | CENTER - | | | | | | LABORATORY | | + + + + + + | eGFR if not | >60Comment: GLOMERULAR | >=60 | [facility] | | | | FILTRATION | mL/min/1.73m2 | [facility] | | | FIJIAN | RATE,ESTIMATED | | MEDICAL | | | | mL/min/1.94m9Rhwi than | | CENTER - | | [...] [address] | [place] | [phone] | | [facility] | | [address] | | | - LABORATORY | | [...] + + | Performing | Address | City/State/[facility] Hospital[facility] | Phone Number | | Organization | | | | + + + + + | [facility] | [address] | [place] | [phone] | | [facility] | | [address] | | | - LABORATORY | | [...] + | [facility] | [address] | [place] | [phone] | | [facility] | | [address] | | | - LABORATORY | | [...] | | | POC | | | [facility] | | | [...] ST. | [address] | [place], [place] | [phone] | | [facility] | | [address] | | | - LABORATORY | | [...] of | | | procedure done: Yes KINDERGARTEN TEACHER ASSISTANT: Johnny Johnson M.D., FMisty | | | PRIMARY PHYSICIAN: Bry Vaughn, PROCEDURES PERFORMED: | | | Left heart catheterization, selective coronary arteriography | | | INDICATIONS : 61-year-old woman admitted with acute respiratory | | | failure, elevated troponin ARTERIAL ACCESS: Right radial artery 6 | | | [place]an CLOSURE DEVICE:. TR band DESCRIPTION OF PROCEDURE: [...] | | | technique and a 6 [place]an sheath was inserted. 3 mg per mL and 300 | | | g of nitroglycerin were administered through the side port of the | | | radial artery sheath. 4000 units of intravenous heparin was | | | administered. Selective coronary arteriography was performed using | | | a 5 [place] Ole catheter. The 5 [place] Ole catheter was | | | advanced [...] | lifestyle modification Johnny Johnson M.D., F.A.C.C. | | | Inspector Exhaust Emissions [facility] [place] | | | [place] | | [...] | + + + + + | [facility] | [address] | [place] | [phone] | | [facility] | | [address] | | | - LABORATORY | | [...] | | | | | LUCIO HU ([id number]) on | | | | | | [...] + | [facility] | [address] | [place] | [phone] | | [facility] | | [address] | | | - LABORATORY | | [...] [address] | [place] | [phone] | | [facility] | | [address] | | | - LABORATORY | | [...] [address] | [place] | [phone] | | [facility] | | [address] | | | - LABORATORY | | [...] [address] | [place] | [phone] | | [facility] | | [address] | | | - LABORATORY | | [...] [address] | [place] | [phone] | | [facility] | | [address] | | | - LABORATORY | | [...] 0.53 (L) | 0.60 - 1.30 | [facility] | | | | | mg/dL | [facility] | | | | | | MEDICAL | | | | | | CENTER - | | | | | | LABORATORY | | + + + + + + | eGFR if not | >60Comment: GLOMERULAR | >=60 | [facility] | | | | FILTRATION | mL/min/1.73m2 | [facility] | | | FIJIAN | RATE,ESTIMATED | | MEDICAL | | | | mL/min/1.28g4Iquk than | | CENTER - | | [...] 0.9 | 0.1 - 1.5 mg/dL | [facility] | | | Total | | | [facility] | | [...] [address] | [place] | [phone] | | [facility] | | [address] | | | - LABORATORY | | [...] | | Basophils | | K/uL | [facility] | | | | | [...] [address] | [place] | [phone] | | [facility] | | [address] | | | - LABORATORY | | [...] | | | | | | [employer] | | | | | [...] + + + + + | [facility] | [address] | [place] | [phone] | | [facility] | | [address] | | | - LABORATORY | | | | + + + + + POC Glucose (05/08/2017 9:38 PM PST) + +---------+ + + + | Component | Value | Ref Range | Performed | Pathologist | | | | | At | Signature | + +---------+ + + + | Glucose, | 126 (H) | 70 - 109 mg/dL | [facility] | | | POC | | | [...] [address] | [place] | [phone] | | [facility] | | [address] | | | - LABORATORY | | | | + + + + + PTT (05/08/2017 8:43 PM PST) + +--------+ + + + | Component | Value | Ref Range | Performed | Pathologist | | | | | At | Signature | + +--------+ + + + | aPTT | 53 (H) | 22 - 36 seconds | [facility] | | | | | [...] [address] | [place] | [phone] | | [facility] | | [address] | | | - LABORATORY | | [...] | | | | | results. [employer] | | | | | | [employer] [...] [address] | [place] | [phone] | | [facility] | | [address] | | | - LABORATORY | | [...] + | [facility] | [address] | [place] | [phone] | | [facility] | | [address] | | | - LABORATORY | | | | + + + + + PTT (05/08/2017 2:06 PM PST) + +-------+ + + + | Component | Value | Ref Range | Performed | Pathologist | | | | | At | Signature | + +-------+ + + + | aPTT | 30 | 22 - 36 seconds | [facility] | | | | | [...] + | [facility] | [address] | [place], [place] | [phone] | | [facility] | | [address] | | | - LABORATORY | | [...] 85.7 | 60 - 750.0 mmHg | [facility] | | | | | | [facility] | | | | | | MEDICAL | | | | | | CENTER - | | | | | | LABORATORY | | + +--------+ + + + + + | Specimen | + + | | + + + + + + + | Performing | Address | City/State/[facility] | Phone Number | | Organization | | | | + + + + + | [facility] | [address] | [place] | [phone] | | [facility] | | [address] | | | - LABORATORY | | [...] lead | | | | | | [id number] by GEORGES | | | | | | LUCIO HU ([id number]) on | | | | | | [...] [address] | [place] | [phone] | | [facility] | | [address] | | | - LABORATORY | | [...] + | [facility] | [address] | [place] | [phone] | | [facility] | | [address] | | | - LABORATORY | | [...] [address] | [place] | [phone] | | [facility] | | [address] | | | - LABORATORY | | [...] [address] | [place] | [phone] | | [facility] | | [address] | | | - LABORATORY | | [...] | | | | | | [employer] | | | | | [...] + + | Performing | Address | City/State/[facility] Hospital[facility] | Phone Number | | Organization | | | | + + + + + | [facility] | [address] | [place] | [phone] | | [facility] | | [address] | | | - LABORATORY | | [...] [address] | [place] | [phone] | | [facility] | | [address] | | | - LABORATORY | | [...] [address] | [place] | [phone] | | [facility] | | [address] | | | - LABORATORY | | | | + + + + + PTT (05/08/2017 10:41 AM PST) + + + + + + | Component | Value | Ref Range | Performed | Pathologist | | | | | At | Signature | + + + + + + | aPTT | 189 ()Comment: | 22 - 36 seconds | [facility] | | | | Critical Result called | | [facility] | | | | to and read back by | | MEDICAL | | | | Brii Barr RN on | CENTER - | | | | [...] [address] | [place] | [phone] | | [facility] | | [address] | | | - LABORATORY | | [...] Patient Name MARCELLA | | | AMY Room Number 449 I | | | Patient Number [id number] Date of Study 05/08/2017 | | | Visit Number [id number] | | | Referring Physician NICOLE TSANG Number Date of | | | 1955 Wind Development Director [facility] | | | Age 61 year(s) Interpreting | | | JOHNNY JOHNSON MD, | | | Emergency Worker [facility] Gender Female | | | Nurse Stress Quantitative Manager | | | Procedure Type of Study [...] | Electronically signed by JOHNNY JOHNSON MD, | | | [facility](Interpreting physician) on 05/08/2017 04:56 | | [...] Volume: 38.51 ml | | | EF Svjahioou25% Left | | | Ventricle Diastolic Dimension: [...] | Electronically signed by JOHNNY JOHNSON MD, [facility](Interpreting | | | physician) on 05/08/2017 [...] Volume: 38.51 ml | | | EF Marcgadim60% | | | | | | Left [...] + | Daniel You Results In - 05/08/2017 4:56 PM PST Transthoracic Echocardiography Report | | (TTE) Demographics Patient Name MARCELLA MONTAÑO Room Number 449 | | I Patient Number [id number] Date of Study 05/08/2017 Visit Number | | [id number] Referring Physician NICOLE TSANG Number | | Date of 1955 Wind Development Director [facility] Age | | 61 year(s) Interpreting JOHNNY JOHNSON MD, | | Emergency Worker [facility] Gender Female Nurse | | Stress TechnicianProcedureType [...] -- Electronically signed by JOHNNY JOHNSON MD, FAC(Interpreting physician) on | | 05/08/2017 04:56 | [...] [place] | | Volume: 38.51 ml EF Hoyboxilm11% Left | | Ventricle Diastolic Dimension: 4.9 [...] | Electronically signed by JOHNNY JOHNSON MD, [facility](Interpreting | | physician) on 05/08/2017 04:56 [...] [place] Volume: 38.51 ml | | EF Evbzduvou45% | | | | Left Ventricle | [...] [address] | [place] | [phone] | | [facility] | | [address] | | | - LABORATORY | | | | + + + + + Troponin I (05/08/2017 6:49 AM PST) + + + + + + | Component | Value | Ref Range | Performed | Pathologist | | | | | At | Signature | + + + + + + | Troponin I | 3.93 (HH)Comment: | <0.06 ng/mL | [facility] | | [...] | | | | | | [employer] | | | | | [...] [address] | [place] | [phone] | | [facility] | | [address] | | | - LABORATORY | | [...] [address] | [place] | [phone] | | [facility] | | [address] | | | - LABORATORY | | [...] (H) | 4.0 - 11.0 K/uL | [facility] | | | | | [...] | + + + + + | [facility] | [address] | [place] | [phone] | | [facility] | | [address] | | | - LABORATORY | | [...] | | | | mg/dL | [facility] | | | | | | MEDICAL | | | | | | CENTER - | | | | | | LABORATORY | | + + + + + + | eGFR if not | >60Comment: GLOMERULAR | >=60 | [facility] | | | | FILTRATION | mL/min/1.73m2 | [facility] | | | [place] | RATE,ESTIMATED | | MEDICAL | | | | mL/min/1.57h7Ccyy than | | CENTER - | | [...] | | | | | mg/dL | [facility] | | | | | | MEDICAL | | | | | | CENTER - | | | | | | LABORATORY | | + + + + + + | BUN/Creatin | 7.2 | | [facility] | | | ine Ratio | | | [facility] | | | | | [...] [address] | [place] | [phone] | | [facility] | | [address] | | | - LABORATORY | | [...] + | [facility] | [address] | [place] | [phone] | | [facility] | | [address] | | | - LABORATORY | | [...] | | | | LUCIO SU MD ([id number]) | | | | | | on [...] + | [facility] | [address] | [place] | [phone] | | [facility] | | [address] | | | - LABORATORY | | [...] ST. | [address] | [place] | [phone] | | [facility] | | [address] | | | - LABORATORY | | [...] | | | | | | [employer] | | | | | [...] [address] | [place] | [phone] | | [facility] | | [address] | | | - LABORATORY | | [...] + | [facility] | [address] | [place] | [phone] | | [facility] | | [address] | | | - LABORATORY | | [...] ST. | [address] | [place] | [phone] | | [facility] | | [address] | | | - LABORATORY | | [...] (H) | 35.0 - 45 mmHg | [facility] | | | | | | [facility] | | | | | | MEDICAL | | | | | | CENTER - | | | | | | LABORATORY | | + + + + + + | pO2, POC | 111.7 | 60 - 750.0 mmHg | [facility] | | | | | [...] [address] | [place] | [phone] | | [facility] | | [address] | | | - LABORATORY | | [...] [address] | [place] | [phone] | | [facility] | | [address] | | | - LABORATORY | | [...] Chronic obstructive pulmonary disease, unspecified COPD type ([facility]) | + + | Acute on chronic respiratory failure with hypoxia and hypercapnia ([facility]) | + + | NSTEMI (non-ST elevated myocardial infarction) ([facility]) Acute myocardial infarction, | | subendocardial infarction, episode of care unspecified | + + | Non-ST elevation myocardial infarction (NSTEMI), type 2 | + + | Respiratory failure with hypoxia and hypercapnia ([facility]) | + + documented in this encounter [...] | | | | at 1838, Andrei well., | | | | | | + [...] | capsule 100 mg 100 mg, Oral, | 18 8:40 | | | | [...] | | | | | | | 6965-9059 Use NIGHT DOSE for | | | | | | | doses scheduled: HS, 3AM, | | | | | | | Nighttime 7812-0660, | | | | | | + [...] +-------+---+ | Rate/Dose Change | 05/08/19 | 40 | 16.2 | | | | 18 9:16 | mcg/kg/m | mL/hr | | | | AM PST | in | | | + + + +-------+---+ + +---+ | | | + +---+ | propofol infusion (DIPRIVAN) 10 | | | mg/mL Starting 05/08/17 at | | | 0028, For 1 dose, JOSE, | | | JANAE: she overranisha, | | + +---+ | | | [...] | | | | | from order #[[id number]], | | | | | | + [...]
--- OUTSIDE RECORDS SUMMARY | ~2019-01-22 | XMS | Encounter Summary ---
Demographics + + + | Address | [address] | | | [place] [address] | + + + | Home Phone | | + + + | Preferred Language | Unknown | + + + | Marital Status | | + + + | Confucianist Affiliation | 1028 | + + + | Race | Unknown | + + + | Ethnic Group | Unknown | + + + Author + + + | Author | [facility] | | | and [place] | + + + | Organization | [facility] | | | and [place] | + + + | Address | Unknown | + + + | Phone | Unavailable | + + + Support + + + + + | Name | Relationship | Address | Phone | + + + + + | Joseluis Desai | ECON | [place] | | | | | [address] | | + + + + + | Mila Desai | ECON | Unknown | | + + + + + Care Team Providers + +------+ + | Care Round Boner Name | Role | Phone | + [...] + + | 08/31/ | Telephone | [facility] | Shaji Wilson | Other | | 2018 | | SURGERY [address] | MD Alessandro, [facility] [address] | | | [address] [place], [place] | [facility] | | | | | [address] | [place] [address] | | | | | [phone] | [phone] | | | | | | | [...] [place] | | | | | | [address] | | | | | | | | +--------+---------+ + + + documented as of this encounter Visit Diagnoses Not on filedocumented in this encounter"
--- OUTSIDE RECORDS SUMMARY | ~2019-01-22 | XMS | Encounter Summary ---
Demographics + + + | Address | [address] | | | [place] [address] | + + + | Home Phone | | + + + | Preferred Language | Unknown | + + + | Marital Status | | + + + | Synagogue Affiliation | 1028 | + + + | Race | Unknown | + + + | Ethnic Group | Unknown | + + + Author + + + | Author | [facility] | | | and [place] | + + + | Organization | [facility] | | | and [place] | + + + | Address | Unknown | + + + | Phone | Unavailable | + + + Support + + + + + | Name | Relationship | Address | Phone | + + + + + | Joseluis Desai | ECON | [place] | | | | | [address] | | + + + + + | Mila Desai | ECON | Unknown | | + + + + + Care Team Providers + +------+ + | Care Box Turner Name | Role | Phone | + [...] Description | +--------+---------+ + + + | 08/18/ | Surgery | GILBERTO NICHOLAS | [place], | Gastric Artery | | 2018 | | [facility] | MD [address] | Embolization with | | | | INTRA OP [address] | 2mm x 8cm coil and | | | | [place] | [place] [address] | [place] [address] | | | | [address] | [phone] | embolic | | | | [phone] | | | +--------+---------+ + + + [...] with vascular surgey Follow Up Appointments: Bry Vaughn, DO [address] [facility] [address] [place] [address] Schedule an appointment as soon as possible for a visit Discharge Disposition: Home Consultants This Admission: Vascular surgery, General Surgery, Interventional Radiology Hospital Course: Amy Coleman is a 62-year-old female with past medical history significant for COPD, CAD s/p NSTEMI ( no PCI), who was transferred to [facility] for ICU care from [place] on 08/17 wh ere she was intubated [...] going home to continue duo nebs at [facility]. She is being discharged today in [...] this chart may have been created with [employer] voice recognition software. Occasi onal wrong-word or [...] urine. Belly (abdominal) pain Date Last Reviewed: 09/12/201519999633-2925 [employer]. [address] [place] [address], [place] [address]. All righ ts reserved. This information is [...] about recovering at home. Date Last Reviewed: 02/12/201619996885-8401 [employer]. [address] [place] [id number]. All righ ts reserved. This information is not intended as a substitute for professional medical care. Always follow your healthcare professional's instructions. [facility] Patient Belongings Amy Whitaker Jared 1955 Patient Signature: Clinician/Trade Marker Signature: Discharge Instructions: After Your Surgery You [...] interact with your prescription medicines or other zslb-ewf-weumesr (OTC) medicines. Some prescription medicines have acetaminophen and other ingredients.Using both prescription a nd OTC acetaminophenfor paincan cause you to overdose. Readthe labels on your OTC [facility] care. This will help youto clearly know [...] of taking these medicines. Date Last Reviewed: 02/12/201619991949-7668 [employer]. [address] [place] [address], [place] [address]. All righ ts reserved. This information is [...] is a 62 year old female from [place], [place] with [facility] Medicaid insurance. SW received referral for d/c [...] ( no PCI), who was transferred to [facility] for ICU care from [place] on 08/17 wh ere she was intubated [...] - Single Lumen 05/08/17 0130 Left Forearm qsaf-crf-hnoofz catheter syst em 20 gauge 106 days [...] this chart may have been created with [employer] voice recognition software. Occasi onal wrong-word or sound-alike substitutions may have occurred due to the inherent lobo itations of voice recognition software. Please read the chart carefully and recognize, using context, where these substitutions have occurred Krzysztof Ordaz MD - 08/21/2017 5:47 PM PDTFormatting of this note might be different f rom the original. [facility] Surgery Team Hospital Day: 5 [...] Signed by: Krzysztof Montaño MD, 08/21/2017 17:47 [facility] ope, Riky Avendaño MD - 08/21/2017 9:49 AM PDT Patient: Amy Coleman Date of : 1955 Admit Date: 08/17/2017 Date of Service: 08/21/2017 PCP: Bry Vaughn DO Hospital Day: Hospital Day: 5 Hospital Course: Amy Coleman is a 62-year-old female with past medical history significant for COPD, CAD s/p NSTEMI ( no PCI), who was transferred to [facility] for ICU care from [place] on 08/17 wh ere she was intubated [...] - Single Lumen 05/08/17 0130 Left Forearm hztk-mvm-dyvois catheter syst em 20 gauge 105 days [...] Hold Result Value Ref Range Product Code O4857R27 UNIT # [id number] UNIT ABO O UNIT RH POS Unit Status IS Blood Product Expiration Date and Time Product Blood Type Barcode 5100 Product Code D6611P58 UNIT # [id number] UNIT ABO O UNIT RH POS Unit Status RE Blood Product Expiration Date and Time [id number] Product Blood Type Barcode 5100 Hemoglobin and [...] this chart may have been created with [employer] voice recognition software. Occasi onal wrong-word or sound-alike substitutions may have occurred due to the inherent lobo itations of voice recognition software. Please read the chart carefully and recognize, using context, where these substitutions have occurred Krzysztof Ordaz MD - 08/20/2017 12:23 PM PDTFormatting of this note might be different f rom the original. [facility] Surgery Team Hospital Day: 4 DATE/TIME: 08/20/2017 [...] Signed by: Krzysztof Montaño MD, 08/20/2017 12:23 [facility] Nadia Blount MD - 08/20/2017 10:02 AM PDT Patient: Amy Coleman Date of : 1955 Admit Date: 08/17/2017 Date of Service: 08/20/2017 PCP: Bry Vaughn DO Hospital Day: Hospital Day: 4 Hospital Course: Amy Coleman is a 62-year-old female with past medical history significant for COPD, CAD s/p NSTEMI ( no PCI), who was transferred to [facility] for ICU care from [place] on 08/17 wh ere she was intubated [...] Signs 08/18 699 - 08/19 0659 08/19 07 - 08/20 0659 08/20 699 - 08/20 [...] - Single Lumen 05/08/17 0130 Left Forearm cdxr-meb-kxedne catheter syst em 20 gauge 104 days [...] this chart may have been created with [employer] voice recognition software. Occasi onal wrong-word or sound-alike substitutions may have occurred due to the inherent lobo itations of voice recognition software. Please read the chart carefully and recognize, using context, where these substitutions have occurred mnadeem, Vikram Mayes MD - 08/20/2017 5:28 AM PDT Critical Care Progress Note [facility] Date of Service: 08/20/2017 Admit Date: 08/17/2017 Pt. Name: Amy Coleman Age: 62 y.o. 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 Scheduled bowel meds started. Indwelling Bladder Catheter [...] LABORATORY: I personally reviewed recent labs in [facility] and ordered appropriate follow-up domonique dies. [...] Component Value Date PHART 7.36 (L) 08/19/2017 [id number] 44 (H) 08/19/2017 PO2ART 91 (H) 08/19/2017 [id number] 13.3 (L) 08/19/2017 LMI1XJD 25.2 08/19/2017 BEART -0.2 08/19/2017 CARBOXYHGB 1.0 [...] this chart may have been created with [employer] voice recognition software. Occasi onal wrong-word or sound-alike substitutions may have occurred due to the inherent lobo itations of voice recognition software. Please read the chart carefully and recognize, using context, where these substitutions have occurred. Krzysztof Ordaz MD - 08/19/2017 2:04 PM PDT [facility] General Surgery Team Hospital Day: 3 DATE/TIME: [...] Signed by: Krzysztof Montaño MD, 08/19/2017 14:05 [facility] arocho Hunt RRT - 08/19/2017 10:10 AM [...] Coleman DATE OF : 1955 MED RECORD: [id number] ASSESSMENT/PLAN PROCEDURE: mesenteric angiogram 08/18 ASSESSMENT: 1. [...] this interval not displayed. Recent Labs Lab 08/19/1715 08/19/17 0306 08/18/17 1156 08/18/17 0523 NA [...] 08/19/1761408/18/172018 PHART 7.25* 7.34* PO2ART 58* 139* AUX5JAC 53* 39 BEART -4.1* -4.5* EXAM: General [...] 6:50 AM PDT Critical Care Progress Note 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 Scheduled bowel meds started. Indwelling Bladder Catheter [...] LABORATORY: I personally reviewed recent labs in [facility] and ordered appropriate follow-up domonique dies. Recent Labs Lab 08/19/17 03008/18/17232708/18/17201808/18/17 0523 08/18/17 0209 WBC -- 11.8* -- -- 19.6* 19.0* HGB 7.5* 7.5* 7.9* < > 11.4 11.6 HCT 21.5* 21.4* 24.3* < > 32.5* 33.4* PLT -- Decreased | 116* -- -- 159 147* < > = values in this interval not displayed. Recent Labs Lab 08/19/17 03008/18/17201808/18/17 1156 08/18/17 0523 08/17/17 2239 08/17/17 2235 [...] -- -- -- 3.3 Recent Labs Lab 08/19/1730508/18/17232708/18/172018 LACTATE 1.8 1.8 2.7* Recent Labs Lab 08/17/17 2241 INR 1.3* No results for input(s): TROPONIN, BNP in the last 168 hours. Invalid input(s): CKTOTAL Lab Results Component Value Date PHART 7.34 (L) 08/18/2017 [id number] 39 08/18/2017 PO2ART 139 (H) 08/18/2017 [id number] 11.2 (L) 08/18/2017 PHA0NNY 21.2 (L) 08/18/2017 BEART -4.5 (L) 08/18/2017 [...] this chart may have been created with So[employer] voice recognition software. Occasi onal wrong-word or sound-alike substitutions may have occurred due to the inherent lobo itations of voice recognition software. Please read the chart carefully and recognize, using context, where these substitutions have occurred. ackelyn Vela MD - 0 08/18/2017 5:31 PM PDTDiscussed [...] 6:28 AM PDT Critical Care Progress Note [facility] Date of Service: 08/18/2017 Admit Date: 08/17/2017 Pt. Name: Amy Coleman Age: 62 y.o. : 1955 Code Status: TBD - Full Code by default Hospital Day: 2 ICU Admit Date: 08/17/2017 Reason for Critical Care: hemorrhagic shock, respiratory failure Provider Teams: Primary: ICU - primary, Dr James Consult: Dr Oglesby, IR Consult: Vascular surgeon (JC) Background/Hospital Course: 62F w/ PMH COPD, CAD (NSTEMI in setting of respiratory arrest last Apr, cath showed mild di sease only, no PCI) presented to OSH ([place], [place]) initially w/ c/o SOB and was intubated for acute on chronic respiratory failure (ABG prior to intubation: 7.0/98/217/26). Pt then developed hypotension/HD instability for which she required 2 pressors. hgb fell from 15-- >4 and pt rc'd 6u PRBCs, 2uFFP, 1u PLT, 5L NS. CT abdomen showed RP hematoma and pt was tra nsferred to [facility] for further eval of this. 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 Gen surgery consulted as w ell as vascular to determine best approach to vascular issues given high potential for re bl eed. Summary of Significant Events: 08/17: Admitted to [facility]. Intubated. To IR 08/18: Awake, alert. 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 PRN bowel meds available. Indwelling Bladder Catheter Indication: Vasopressors for hemodynamic instability Subjective 24hr interval history: Transferred from [place] to [facility] Afebrile Rc'd 6u PRBCs, 2u FFP, [...] LABORATORY: I personally reviewed recent labs in [facility] and ordered appropriate follow-up domonique dies. [...] 08/18/17 0527 LACTATE 2.0* Recent Labs Lab 08/17/172240 INR 1.3* No results for input(s): TROPONIN, BNP in the last 168 hours. Invalid input(s): CKTOTAL Lab Results Component Value Date PHART 7.39 08/18/2017 [id number] 32 08/18/2017 PO2ART 108 (H) 08/18/2017 P4IMWCHXX 16.2 08/18/2017 PCT5ZNW 19.4 (L) 08/18/2017 BEART -5.6 (L) 08/18/2017 [...] this chart may have been created with [employer] recognition software. Occasi onal wrong-word or sound-alike substitutions may have occurred due to the inherent lobo itations of voice recognition software. Please read the chart carefully and recognize, using context, where these substitutions have occurred. Associated attestation - Vikram James MD - 08/18/2017 8:56 AM PDT Physician Attestation Note [facility] Date of Service: 08/18/2017 Reason for critical care: Hemorrhagic shock secondary to intra-abdominal bleeding I reviewed and discussed the patient history, assessment and plan with the KOLE, during pers onal discussion and/or multi-disciplinary rounds. Acute issues or additions to plan of care: 62 year old lady with PMH of COPD, CAD s/p NSTEMI (no PCI, mild disease) presented to [facility] on 08/16 with shortness of breath [...] this chart may have been created with So[employer] voice recognition software. Occasi onal wrong-word or sound-alike substitutions may have occurred due to the inherent lobo itations of voice recognition software. Please read the chart carefully and recognize, using context, where these substitutions have occurred.Ever Chicas RN - 08/18/2017 1:10 AM PDTBack from interventional radiology, titrated off vasoactive medications during IR. No ac tive bleeding found. Faby aGrcia MD - 08/17/2017 11:54 PM PDTFormatting of this note might be different from the o riginal. . Critical Care-Care Progress Note Update [facility] Date of Service: 08/17/2017 Admit Date: 08/17/2017 Pt. Name: Amy Coleman Age: 62 y.o. : 1955 Code Status: TBD - Full Code by default Attending: Faby Rodrgiuez MD Hospital Day: Hospital Day: 1 Complaints [...] called and discussed plans with son, Joseluis ([phone]). He expre ssed understanding and wanted to [...] this chart may have been created with So[employer] voice recognition software. Occasi onal wrong-word or [...] SHERITA | | | | | | [place], [place] | | | | | | [address] | | | | | | | [...] | | MEDICAL | | | | [facility] [address], | | CENTER | | | | [place] [address] | | LABORATORY | | | | [...] + + | ANAODILIASneha YU | [address] | [place] [address] | | | [facility] | | | | | LABORATORY CERNER [...] [facility] | | | | Performed by [facility] [address] | | SACRED | | | | [address] [place] | | HEART | | | | [address] | | MEDICAL | | | | [...] + + | GILBERTO NICHOLAS | [address] | [place] [address] | | | [facility] | | | | | [...] | | MEDICAL | | | | [facility] [address], | | CENTER | | | | [place] [address] | | LABORATORY | | | | [...] + + | [facility]CRED | [address] | [place] [address] | | | [facility] | | | | | LABORATORY CERNER [...] PROVIDE NCE | | | | by [facility] [address], | | SACRED | | | | [place] [address] | | HEART | | | |Performed by [facility] [address], [place], [place] | | MEDICAL | | | [...] + + | [facility] | [address] | [place], [place] | | | HEART MEDICAL CENTER [...] [facility] | | | | Performed by [facility] [address] | | SACRED | | | | [address] [place] | | HEART | | | | [address] | | MEDICAL | | | | [...] + + | GILBERTO NICHOLAS | [address] | [place] [address] | | | [facility]ART MEDICAL CENTER | [...] [facility] | | | | Performed by [facility] [address] | | SACRED | | | | [address] [place] | | HEART | | | | [address] | | MEDICAL | | | | [...] + + | GILBERTO NICHOLAS | [address] | [place] [address] | | | [facility] | | | | | LABORATORY [place] | | | | + + + + + Red Blood Cells (PRBC) - Crossmatch and Hold (08/21/2017 2:48 AM PDT) + + + + + + | Component | Value | Ref Range | Performed | Pathologist | | | | | At | Signature | + + + + + + | Product | [id number] | | REFERENCE | | | Code | | | LAB [place] | | | | | | [facility] | | | | | | [facility] | | | | | | B[facility]OD | | | | | | CENTER | | + + + + + + | UNIT # | [id number] | | REFERENCE | | | | | | LAB [facility] | | | | | | [facility] | | | | | | [facility] | | | | | | BLOOD | | | | | | CENTER | | + + + + + + | UNIT ABO | O | | REFERENCE | | | | | | LAB [facility] | | | | | | [facility] | | | | | | [facility] | | | | | | BLOOD | | | | | | CENTER | | + + + + + + | UNIT RH | POS | | REFERENCE | | | | | | LAB [facility] | | | | | | [facility] | | | | | | [facility] | | | | | | BLOOD | | | | | | CENTER | | + + + + + + | Unit Status | IS | | REFERENCE | | | | | | LAB [facility] | | | | | | [facility] | | | | | | [facility] | | | | | | BLOOD | | | | | | CENTER | | + + + + + + | Blood | [id number] | | REFERENCE | | | Product | | | LAB [facility] | | | Expiration | | | [facility] | | | Date and | | | [facility] | | | Time | | | BLOOD | | | | | | CENTER | | + + + + + + | Product | [id number] | | REFERENCE | | | Blood Type | | | LAB [facility] | | | Barcode | | | [facility] | | | | | | [facility] | | | | | | BLOOD | | | | | | CENTER | | + + + + + + | Product | [id number] | | REFERENCE | | | Code | | | LAB [place] | | | | | | [facility] | | | | | | [facility] | | | | | | BLOOD | | | | | | CENTER | | + + + + + + | UNIT # | [id number] | | REFERENCE | | | | | | LAB [facility] | | | | | | [facility] | | | | | | [facility] | | | | | | BLOOD | | | | | | CENTER | | + + + + + + | UNIT ABO | O | | REFERENCE | | | | | | LAB [facility] | | | | | | [facility] | | | | | | [facility] | | | | | | BLOOD | | | | | | CENTER | | + + + + + + | UNIT RH | POS | | REFERENCE | | | | | | LAB [facility] | | | | | | [facility] | | | | | | [facility] | | | | | | BLOOD | | | | | | CENTER | | + + + + + + | Unit Status | RE | | REFERENCE | | | | | | LAB [place] | | | | | | [facility] | | | | | | [facility] | | | | | | BLOOD | | | | | | CENTER | | + + + + + + | Blood | [id number] | | REFERENCE | | | Product | | | LAB [place] | | | Expiration | | | [facility] | | | Date and | | | [facility] | | | Time | | | BLOOD | | | | | | CENTER | | + + + + + + | Product | [id number] | | REFERENCE | | | Blood Type | | | LAB [place] | | | Barcode | | | [...] + + + | Specimen Expiration Date: [id number] | REFERENCE LAB | | | [facility] | | | [facility] | | | [facility] C[facility] | + + + + + + + + | Performing | Address | City/State/Zipcode | Phone Number | | Organization | | | | + + + + + | REFERENCE LAB | [address] | [place] [address] | [phone] | | [facility] [place] | | | | | [facility] [...] [facility] | | | | Performed by [facility] [address] | | SACRED | | | | [address] [place] | | HEART | | | | [address] | | MEDICAL | | | | [...] + + | ANAODILIASneha NICHOLAS | [address] | [place] [address] | | | [facility] | | | | | LABORATORY [place] [...] [facility] | | | | Performed by [facility] [address] | mmol/L | SACRED | | | | [address], [place] | | HEART | | | | [address] | | MEDICAL | | | | [...] [address] | [place] [address] | | | [facility] | | | | | LABORATORY [...] [facility] | | | | Performed by [facility] [address] | mmol/L | SACRED | | | | [address], [place] | | HEART | | | | [address] | | MEDICAL | | | | [...] + | GILBERTO NICHOLAS | [address] | [place] [address] | | | [facility] | | | | | LABORATORY CERNER [...] [facility] | | | | Performed by [facility] [address] | | SACRED | | | | [address] [place] | | HEART | | | | [address] | | MEDICAL | | | | [...] + + + + + | PROVIDEODILIAE YU | [address] | [place] [address] | | | [facility] | | | | | CELESTE REYEZ [...] CENTER | | | | 3.5Performed by [facility] [address] | | LABORATORY | | | | [address] [place] | | CERNER | | | | [address] | | | | + + + + + + + + | Specimen | + + | Blood specimen | | (specimen) | + + + + + + + | Performing | Address | City/State/Zipcode | Phone Number | | Organization | | | | + + + + + | GILBERTO NICHOLAS | [address] | [place] [address] | | | [facility] | | | | | LABORATORY CERNER [...] 0.5Comment: Performed | 0.5 - 2.2 | CHAVEZE | | | Venous | by [facility] [address], | mmol/L | SACRED | | | | [place], [place] | | HEART | | | |Performed by [facility] [address], [place], [place] | | MEDICAL | | | [...] + + | [facility] | [address] | [place], [place] | | | HEART MEDICAL CENTER [...] | | MEDICAL | | | | [facility] [address], | | CENTER | | | | [place] [address] | | LABORATORY | | | | [...] SACRED | [address] | [place] [address] | | | [facility] | | | | | LABORATORY [place] [...] | PROVID ENCE | | | | [facility] [address], | | SACRED | | | | [place] [address] | | HEART | | | |Performed by [facility] [address], [place] [address] | | MEDICA L | | | [...] + + | GILBERTO NICHOLAS | [address] | [place] [address] | | | [facility] | | | | | LABORATORY [place] [...] + | Daniel You Results In - 08/19/2017 7:05 PM PDT [...] | [facility] | | | | by [facility] [address], | mmol/L | SACRED | | | | [place] [address] | | HEART | | | |Performed by [facility] [address], [place] [address] | | MEDICAL | | | | [...] + + | GILBERTO NICHOLAS | [address] | [place] [address] | | | [facility] | | | | | CELESTE REYEZ [...] mg/dL | PROVIDENCE | | | | [facility] [address], | | SACRED | | | | [place] [address] | | HEART | | | |Performed by [facility] [address], [place] [address] | | MEDICAL | | | | [...] + + | GILBERTO NICHOLAS | [address] | [place] [address] | | | [facility] | | | | | LABORATORY [place] [...] (H) | 32 - 43 mmHg | YUNIOR [...] CE | | | ARTERIAL | by [facility] [address], | | SACRED | | | | [place] [address] | | HEART | | | |Performed by [facility] [address], [place] [address] | | MEDICAL | | | | [...] + + | ANAODILIASneha YU | [address] | [place] [address] | | | [facility] | | | | | LABORATORY [place] [...] PROVIDENCE | | | | Performed by [facility] [address] | | SACRED | | | | [address] [place] | | HEART | | | | [address] | | MEDICAL | | | | [...] + + | GILBERTO NICHOLAS | [address] | [place] [address] | | | [facility] | | | | | LABORATORY CERNER [...] CE | | | ARTERIAL | by [facility] [address], | | SACRED | | | | [place] [address] | | HEART | | | |Performed by [facility] [address], [place] [address] | | MEDICAL | | | | [...] + + | GILBERTO NICHOLAS | [address] | [place] [address] | | | HEART [facility] | | | | | LABORATORY [place] | | | | + + + + + PADMA Panel, Quant (08/19/2017 10:18 AM PDT) + + [...] + + + + + | MANJU MANAGEMENT TRAINER AB | <0.2 | 0.0 - 0.9 [...] ISIAH | | | | | | [facility] [id number] | | | | | | [address] | | | | | | [place] | | | | | | [id number] | | | | | | [phone] | | | | + + + + + + + + | Specimen | + + | Blood specimen | | (specimen) | + + + + + + + | Performing | Address | City/State/Zipcode | Phone Number | | Organization | | | | + + + + + | GILBERTO NICHOLAS | [address] | [place] [address] | | | [place] [facility] | | | | | [...] [facility] | | | Arterial | by [facility] [address], | mmol/L | SACRED | | | | [place] [address] | | HEART | | | |Performed by [facility] [address], [place] [address] | | MEDICAL | | | | [...] + + | ANAODILIASneha YU | [address] | [place] [address] | | | [facility] | | | | | CELESTE REYEZ [...] CE | | | ARTERIAL | by [facility] [address], | | SACRED | | | | [place] [address] | | HEART | | | |Performed by [facility] [address], [place] [address] | | MEDICAL | | | | [...] + | GILBERTO NICHOLAS | [address] [place] [address]. | [place] [address] | | | [facility] | | | | | LABORATORY CERNER [...] [facility] | | | | Performed by [facility] [address] | | SACRED | | | | [address] [place] | | HEART | | | | [address] | | MEDICAL | | | | [...] + + | [facility] SACRED | [address] | [place] [address] | | | [facility] | | | | | LABORATORY CERNER [...] MEDICAL | | | | Performed by [facility] [address] | | CENTER | | | | [address] [place], [place] | | LABORATORY | | | | [address] | | [place] | | | | | | | [...] + + | [facility] | [address] | [place] [address] | | | [facility] | | | | | [...] | | | Arterial | Performed by [facility] [address] | mmol/L | SACRED | | | | [address], [place] | | HEART | | | | [address] | | MEDICAL | | | | [...] + + | GILBERTO NICHOLAS | [address] | [place] [address] | | | [facility] | | | | | CELESTE REYEZ [...] | [facility] | | | | by [facility] [address], | mmol/L | SACRED | | | | [place] [address] | | HEART | | | |Performed by [facility] [address], [place] [address] | | MEDICAL | | | | [...] + + | GILBERTO NICHOLAS | [address] | [place] [address] | | | [facility] | | | | | LABORATORY CERNER [...] | | Arterial | Comment: | | YU | | | | | | HEART [...] | | | ARTERIAL | Performed by [facility] [address] | | SACRED | | | | [address] [place] | | HEART | | | | [address] | | MEDICAL | | | | [...] + + | ANAODILIASneha YU | [address] | [place] [address] | | | [facility] | [...] [facility] | | | | Performed by [facility] [address] | | SACRED | | | | [address] [place] | | HEART | | | | [address] | | MEDICAL | | | | [...] + + | GILBERTO NICHOLAS | [address] | [place] [address] | | | [facility] | | | | | LABORATORY [place] [...] [facility] | | | Venous | by [facility] [address], | mmol/L | SACRED | | | | [place] [address] | | HEART | | | |Performed by [facility] [address], [place] [address] | | MEDICAL | | | | [...] SACRED | [address] | [place] [address] | | | [facility] | | | | | [...] | | MEDICAL | | | | [facility] [address], | | CENTER | | | | [place] [address] | | LABORATORY | | | | [...] + + | GILBERTO NICHOLAS | [address] | [place] [address] | | | [facility] | | | | | CELESTE REYEZ [...] | | HEART | | | | [facility] | | MEDICAL | | [...] IOM | | | | | | ([facility]). | | | | | [...] [facility] | | | | | | [address] | | | | | | [address] [place], [place] | | | | | | [id number] Daniel | | | | | | Allie HU Ph:[id number] | | | | + + + + + + + + | Specimen | + + | Blood specimen | | (specimen) | + + + + + + + | Performing | Address | City/State/Zipcode | Phone Number | | Organization | | | | + + + + + | GILBERTO NICHOLAS | [address] | [place] [address] | | | [facility] | | | | | CELESTE REEYZ | | | | + + + [...] [facility] | | | Venous | by [facility] [address], | mmol/L | SACRED | | | | [place] [address] | | HEART | | | |Performed by [facility] [address], [place] [address] | | MEDICAL | | | | [...] + + | GILBERTO NICHOLAS | [address] | [place] [address] | | | [facility] | | | | | LABORATORY CERNER [...] | | MIKE MISTRY | | | Cells | [facility] [address], | | DANYED | | | | [place] [address] | | HEART | | | |Performed by [facility] [address], [place] [address] | | MEDICA L | | | [...] + + | GILBERTO NICHOLAS | [address] | [place] [address] | | | [facility] | | | | | LABORATORY CERNER [...] | [facility] | | | | by [facility] [address], | mmol/L | SACRED | | | | [place] | | HEART | | | |Performed by [facility] [address], [place] | | MEDICAL | | | [...] + + | [facility] | [address] | [place] | | | [facility] | [...] | | | Arterial | Performed by [facility] [address] | mmol/L | SACRED | | | | [address] [place], [place] | | HEART | | | | [address] | | MEDICAL | | | | [...] + + | ANAODILIASneha YU | [address] | [place] [address] | | | [facility] | | | | | LABORATORY CERNER [...] E | | | Normalized | by [place] [address] [address] [facility] [address], | mg/dL | SACRED | | | | [place] [address] | | HEART | | | |Performed by [facility] [address], [place] [address] | | MEDICAL | | | | [...] + + | GILBERTO NICHOLAS | [address] | [place] [address] | | | [facility] | | | | | LABORATORY [place] [...] CE | | | ARTERIAL | by [facility] [address], | | SACRED | | | | [place] [address] | | HEART | | | |Performed by [facility] [address], [place] [address] | | MEDICAL | | | | [...] + | GILBERTO NICHOLAS | [address] | [place] [address] | | | [facility] | | | | | LABORATORY CERNER [...] | | | Venous | Performed by [facility] [address] | mmol/L | SACRED | | | | [address] [place] | | HEART | | | | [address] | | MEDICAL | | | | [...] + + | [facility] | [address] | [place] | | | [facility] | | | | | LABORATORY [...] | [facility] | | | | by [facility] [address], | | SACRED | | | | [place] | | HEART | | | |Performed by [facility] [address], [place] | | MEDICAL | | | | [...] | sst | GILBERTO | | | [facility]ART | | | MEDICAL CENTER | | | LABORATORY | | | [place] | + + + + + + + + | Performing | Address | City/State/Zipcode | Phone Number | | Organization | | | | + + + + + | GILBERTO NICHOLAS | [address] | [place] [address] | | | [facility] | | | | | LABORATORY CERNER [...] [facility] | | | | Performed by [facility] [address] | | SACRED | | | | [address], [place] | | HEART | | | | [address] | | MEDICAL | | | | [...] [address] | [place] [address] | | | [facility] | [...] Seldinger technique, a 6 | | | Armenian sheath was positioned into the right common femoral artery and | | | attached to a flush system. A 5 Armenian Scott 2 catheter was | | | then positioned through a 6 Armenian guiding catheter an utilized to | | [...] | Hemostasis was achieved with a 6 Armenian Angio-Seal device. | | | Maximum sterile [...] | | standard Seldinger technique, a 6 Armenian sheath was positioned into | | the right common femoral artery and attached to a flush system. | | | | A 5 Armenian Scott 2 catheter was then positioned through a 6 Armenian | | guiding catheter an utilized to [...] performed. Hemostasis was achieved with a 6 Armenian | | Angio-Seal device. | | | [...] [facility] | | | | Performed by [facility] [address] | | SACRED | | | | [address] [place] | | HEART | | | | [address] | | MEDICAL | | | | [...] + + | GILBERTO NICHOLAS | [address] | [place] [address] | | | [facility] | | | | | LABORATORY [place] [...] | | | Venous | Performed by [facility] [address] | mmol/L | SACRED | | | | [address], [place] | | HEART | | | | [address] | | MEDICAL | | | | [...] SACRED | [address] | [place] [address] | | | [facility] | [...] | | | Normalized | Performed by [facility] [address] | mg/dL | SACRED | | | | [address] [place] | | HEART | | | | [address] | | MEDICAL | | | | [...] + + | GILBERTO NICHOLAS | [address] | [place] [address] | | | [facility] | | | | | LABORATORY [place] [...] | [facility] | | | | by [place] [address] [address], | mmol/L | SACRED | | | | [place] [address] | | HEART | | | |Performed by [facility] [address], [place] [address] | | MEDICAL | | | | [...] + + | GILBERTO NICHOLAS | [address] | [place] [address] | | | [facility] | | | | | LABORATORY [place] [...] GILBERTO | | | | Performed by [facility] [address] | | SACRED | | | | [address], [place], [place] | | HEART | | | | [address] | | MEDICAL | | | | [...] SACRED | [address] | [place] [address] | | | [facility] | [...] | 7.40 | 7.31 - 7.41 | ANAN CE | | | | [...] PROVIDEN CE | | | | by [facility] [address], | | SACRED | | | | [place] [address] | | HEART | | | |Performed by [facility] [address], [place] [address] | | MEDICAL | | | | [...] + | GILBERTO NICHOLAS | [address] | [place] [address] | | | [facility] | | | | | LABORATORY CERNER [...] PROVIDENCE | | | | Performed by [facility] [address] | | SACRED | | | | [address] [place] | | HEART | | | | [address] | | MEDICAL | | | | [...] + + | GILBERTO NICHOLAS | [address] | [place] [address] | | | [facility] | | | | | LABORATORY CERNER | | | | + + + + + Culture, Blood (08/18/2017 9:39 AM PDT) + + + + + + | Component | Value | Ref Range | Performed | Pathologist | | | | | At | Signature | + + + + + + | FINAL | No GrowthComment: | | GILBERTO | | | REPORT | Performed by [facility] [address] | | YU | | | | [address], [place] | | HEART | | | | [address] | | MEDICAL | | | | [...] + + | GILBERTO NICHOLAS | [address] | [place] [address] | | | [facility] | | | | | LABORATORY [place] [...] | | | REPORT | Performed by [facility] [address] | | SACRED | | | | [address] [place] | | HEART | | | | [address] | | MEDICAL | | | | [...] + | GILBERTO NICHOLAS | [address] | [place] [address] | | | [facility] | | | | | LABORATORY [place] [...] Patient Name JARED | | | AMY Francois Room Number 258 Patient Number | | | [id number] Date of Study 08/18/2017 Visit | | | Number [id number] | | | Referring Physician BRI Sánchez Date of | | | 1955 Supervisor Doping Julien Zamora Age | | | 62 year(s) Interpreting | | | [place] [facility] | | | Supervisor Cell Operation | | | Mara Patton MD Gender | | | Female Nurse | | | Stress Trade Marker Procedure Type of Study TTE procedure: | [...] Atrium Left Ventricle EF | | | Wyvznryfh88% | | | Electronically signed by [employer]Mara kennedy MD(Interpreting physician) on | | | [...] | | | | | | EF Ilmxdwutm36% | | | | | + + --+ + + | Procedure Note | + + | Avelino, Rad Results In - 08/18/2017 11:38 AM PDT Transthoracic Echocardiography Report | | (TTE) Demographics Patient Name JARED MONTAÑO I Room Number 258 Patient | | Number [id number] Date of Study 08/18/2017 Visit Number [id number] | | Referring Physician BRI Sánchez Date of | | 1955 Supervisor Doping Julien Issa Age 62 year(s) | | Interpreting [place] [facility] Supervisor Cell Operation | | Maar Patton MD Gender | | Female Nurse Stress TechnicianProcedureType of | | Study TTE procedure: ECHO Complete, Add-on Items, COLOR DOPPLER, COMPLETE | | DOPPLER.Procedure dateDate: 08/18/2017Start: 07:21 AMTechnical Quality: Adequate | | visualizationStudy Location: PortableIndications: [facility] 425.4/ I.9.Patient | | Status: RoutineHeight: 65 inchesWeight: 152 [...] | consideration.Signature | | Electronically signed by Maar Patton MD(Interpreting physician) on | | 08/18/2017 [...] Left Atrium Left Ventricle EF | | Reesawtmr65% | |Conclusions | |Summary | |1. Small [...] Left Ventricle | | | | EF Sgpoyjfhr95% | + + + +---------+ + + [...] | | | Arterial | Performed by [facility] [address] | mmol/L | SACRED | | | | [address] [place] | | HEART | | | | [address] | | MEDICAL | | | | [...] + + | GILBERTO SACRJAD | [address] | [place] [address] | | | [facility] | | | | | [...] E | | | Normalized | by [place] [address] [address], | mg/dL | SACRED | | | | [place] [address] | | HEART | | | |Performed by [facility] [address], [place] [address] | | MEDICAL | | | | [...] + + + + + | PROVIDEODILIAE SACR | [address] | [place] [address] | | | [facility] | | | | | LABORATORY CERNER [...] PROVIDEODILIAE | | | | Performed by [facility] [address] | | SACRED | | | | [address], [place] | | HEART | | | | [address] | | MEDICAL | | | | [...] + + | GILBERTO NICHOLAS | [address] | [place] [address] | | | [facility] | | | | | LABORATORY [place] [...] | 7.39 | 7.37 - 7.47 | PROVIDEN CE [...] CE | | | ARTERIAL | by [facility] [address], | | SACRED | | | | [place] [address] | | HEART | | | |Performed by [facility] [address], [place] [address] | | MEDICAL | | | | [...] SACRED | [address] | [place] [address] | | | [facility] | | | | | LABORATORY CERNER [...] CENTER | | | | | | MADELAINEAT KARLENE | | | | | | CERNER [...] PROVIDE NCE | | | | by [facility] [address], | | SACRED | | | | [place] [address] | | HEART | | | |Performed by [facility] [address], [place] [address] | | MEDICAL | | | | [...] + + | [facility] | [address] | [place] [address] | | | [facility] | | | | | LABORATORY CERNER [...] | | LABORATORY | | | | [facility] [address], | | CERNER | | | | [place] [address] | | | | + + + + + + + + | Specimen | + + | Blood specimen | | (specimen) | + + + + + + + | Performing | Address | City/State/Zipcode | Phone Number | | Organization | | | | + + + + + | ANALENO NICHOLAS | [address] | [place] [address] | | | [facility] | | | | | CELESTE REYEZ [...] PROVIDE NCE | | | | by [facility] [address], | | SACRED | | | | [place] [address] | | HEART | | | |Performed by [facility] [address], [place] [address] | | MEDICAL | | | | [...] + | GILBERTO NICHOLAS | [address] | [place] [address] | | | [facility] | | | | | LABORATORY [place] [...] YUNIOR CE | | | | by [facility] [address], | | SACRED | | | | [place] [address] | | HEART | | | |Performed by [facility] [address], [place] [address] | | MEDICAL | | | | [...] SACRED | [address] | [place] [address] | | | [facility] | | | | | LABORATORY CERNER [...] | | MEDICAL | | | | [facility] [address], | | CENTER | | | | [place] [address] | | LABORATORY | | | | [...] + + | GILBERTO NICHOLAS | [address] | [place] [address] | | | [facility] | | | | | LABORATORY [place] [...] | Daniel You Results In - 08/18/2017 5:06 AM PDT [...] | CHAVEZ E | | | | [facility] [address], | | SACRED | | | | [place] [address] | | HEART | | | |Performed by [facility] [address], [place] [address] | | MEDICAL | | | | [...] SACRED | [address] | [place] [address] | | | [facility] | | | | | [...] - 1.030 | [facility] | | | [place] | | | SACRED | | | [...] | | | SOURCE | Performed by [facility] [address] | | SACRED | | | | [address] [place] | | HEART | | | | [address] | | MEDICAL | | | | [...] + + | GILBERTO NICHOLAS | [address] | [place] [address] | | | [facility] | | | | | LABORATORY CLAUDIANER [...] PROVIDE NCE | | | | by [facility] [address], | | SACRED | | | | [place] [address] | | HEART | | | |Performed by [facility] [address], [place] [address] | | MEDICAL | | | | [...] + + | ANAODILIASneha YU | [address] | [place] [address] | | | [facility] | | | | | LABORATORY CERNER [...] [facility]ENCE | | | Source | by [facility] [address], | | SACRED | | | | [place] [address] | | HEART | | | |Performed by [facility] [address], [place] [address] | | MEDICAL | | | | [...] + + | GILBERTO NICHOLAS | [address] | [place] [address] | | | [facility] | | | | | LABORATORY [place] [...] and a short | | | 5 Armenian vascular sheath was placed. A 5 Armenian Scott 1 catheter | | | was [...] performed and a short | | 5 Armenian vascular sheath was placed. A 5 Armenian Scott 1 catheter | | was formed [...] | | | | Signed by: MD Jannet, Ion | + + + +---------+ + + [...] | | | | | seconds.Performed by [facility] | | | | | | [address], | | | | | | [place] [address] | | | | + + + + + + + + | Specimen | + + | Blood specimen | | (specimen) | + + + + + + + | Performing | Address | City/State/Zipcode | Phone Number | | Organization | | | | + + + + + | GILBERTO NICHOLAS | [address] | [place] [address] | | | [facility] | | | | | LABORATORY [place] [...] | | | Normalized | Performed by [facility] [address] | mg/dL | SACRED | | | | [address] [place] | | HEART | | | | [address] | | MEDICAL | | | | [...] + + | ANAODILIASneha YU | [address] | [place] [address] | | | [facility] | | | | | LABORATORY [place] [...] | [facility] | | | | by [facility] [address], | mmol/L | SACRED | | | | [place] [address] | | HEART | | | |Performed by [facility] [address], [place] [address] | | MEDICAL | | | | [...] + + | GILBERTO NICHOLAS | [address] | [place] [address] | | | [facility] | | | | | LABORATORY [place] [...] | [facility] | | | | by [facility] [address], | mmol/L | SACRED | | | | [place] | | HEART | | | |Performed by [facility] [address], [place] | | MEDICAL | | | [...] + + | [facility] | [address] | [place], [place] | | | [facility]ICAL [facility] [...] [facility]ENCE | | | | Performed by [facility] [address] | | SACRED | | | | [address] [place], [place] | | HEART | | | | [address] | | MEDICAL | | | | [...] + + | GILBERTO NICHOLAS | [address] | [place] [address] | | | [facility] | | | | | LABORATORY CERNER [...] CE | | | ARTERIAL | by [facility] [address], | | SACRED | | | | [place] [address] | | HEART | | | |Performed by [facility] [address], [place] [address] | | MEDICAL | | | | [...] + + | GILBERTO NICHOLAS | [address] | [place] [address] | | | [facility] | | | | | LABORATORY [...] PROVIDE NCE | | | | by [facility] [address], | | SACRED | | | | [place] [address] | | HEART | | | |Performed by [facility] [address], [place] [address] | | MEDICAL | | | | | | CENTER | | | | | | LABORAT KARLENE | | | | | | CERNER | | + + + +-------- -----+ + + + | Specimen | + + | Blood specimen | | (specimen) | + + + + + + + | Performing | Address | City/State/Zipcode | Phone Number | | Organization | | | | + + + + + | GILBERTO NICHOLAS | [address] | [place] [address] | | | [facility] | | | | | LABORATORY [place] [...] | | | | | | LAB [place] | | | | | | [place] | | | | | | [facility] | | | | | [facility] | | | | | | [facility] | | + + + + + + | Rh Type | Positive | | REFERENCE | | | | | | LAB [place] | | | | | | [facility] | | | | | | [facility] | | | | | | [facility] | | | | | | [facility] | | + + + + + + + + | Specimen | + + | | + + + + + | Narrative | Performed At | + + + | Specimen Expiration Date: [id number] | REFERENCE LAB | | | [place] | | | [facility] | | [facility] | + + + + + + + + | Performing | Address | City/State/Zipcode | Phone Number | | Organization | | | | + + + + + | REFERENCE LAB | [address] | [place] [address] | [phone] | | [place] | | | | | [facility] [...] PROVIDEN CE | | | | by [facility] [address], | | SACRED | | | | [place] [address] | | HEART | | | |Performed by [facility] [address], [place] [address] | | MEDICAL | | | | [...] SACRED | [address] | [place] [address] | | | [facility] | | | | | LABORATORY CLAUDIANER [...] | | MEDICAL | | | | [facility] [address], | | CENTER | | | | [place] [address] | | LABORATORY | | | | | | CERNER | | + + + + + + + + | Specimen | + + | Blood specimen | | (specimen) | + + + + + + + | Performing | Address | City/State/Zipcode | Phone Number | | Organization | | | | + + + + + | ANAODILIASneha ADNYJAD | [address] | [place] [address] | | | [facility] | | | | | LABORATORY CERNER [...] ENCE | | | Basophils | by [facility] [address], | K/uL | SACRED | | | | [place] [address] | | HEART | | | |Performed by [facility] [address], [place] [address] | | MEDICA L | | | [...] + + | ANAODILIASneha SAENZJAD | [address] | [place] [address] | | | [facility] | | | | | LABORATORY [place] [...] | | | | | | LAB [place] | | | | | | [facility] | | | | | | [facility] | | | | | | [facility] | | | | | | CENTER | | + + + + + + | Rh Type | PositiveComment: Patient | | REFERENCE | | | | is remote crossmatch | | LAB [place] | | | | eligible | | [facility] | | | | | | [facility] | | | | | | [facility] | | | | | | CENTER | | + + + + + + | Antibody | Negative | | REFERENCE | | | Screen | | | LAB [place] | | | | | | [place] [...] + + + | Specimen Expiration Date: [id number] | REFERENCE LAB | | | [place] | | | [facility] | | | [facility] | + + + + + + + + | Performing | Address | City/State/Zipcode | Phone Number | | Organization | | | | + + + + + | REFERENCE LAB | [address] | [place] [address] | [phone] | | [place] | | | | | [facility] [...] | | | | | Starting [facility] 08/18/17 at 0508 | | | [...] First dose on Tue | | AM PDT | | | [...] | | | < 4.75, Starting [facility] 08/18/17 at | | | | [...] | | +---+---+ + +-------+ +---------+---+---+ | perryusate-maximusna (SENOKOT-S) | Given | 08/23/19 | 2 [...]
--- OUTSIDE RECORDS SUMMARY | ~2019-01-22 | XMS | Encounter Summary ---
Demographics + + + | Address | [address] | | | [place] [address] | + + + | Home Phone | | + + + | Preferred Language | Unknown | + + + | Marital Status | | + + + | Judaism Affiliation | 1028 | + + + | Race | Unknown | + + + | Ethnic Group | Unknown | + + + Author + + + | Author | [facility] | | | and [place] | + + + | Organization | [facility] | | | and [place] | + + + | Address | Unknown | + + + | Phone | Unavailable | + + + Support + + + + + | Name | Relationship | Address | Phone | + + + + + | Joseluis Desai | ECON | [place] | | | | | [address] | | + + + + + | Mila Desai | ECON | Unknown | | + + + + + Care Team Providers + +------+ + | Care Bag Sorter Name | Role | Phone | + [...] + + | 12/16/ | Refill | [facility] | Tyree Joyce, | Medication Refill | | 2019 | | PULMONARY [address] | MD [address] | | | | | [place], | [place], [place] | | | | | [place] [address] | [address] | | | | | [phone] | | | +--------+--------+ + + + [...] | | | | | | [place] | | | | | | [address] | | | | | | | | +--------+---------+ + + + documented as of this encounter Visit Diagnoses Not on filedocumented in this encounter"
--- OUTSIDE RECORDS SUMMARY | ~2019-01-22 | XMS | Encounter Summary ---
Demographics + + + | Address | [address] | | | [place] [address] | + + + | Home Phone | | + + + | Preferred Language | Unknown | + + + | Marital Status | | + + + | Yazidi Affiliation | 1028 | + + + | Race | Unknown | + + + | Ethnic Group | Unknown | + + + Author + + + | Author | [facility] | | | and [place] | + + + | Organization | [facility] | | | and [place] | + + + | Address | Unknown | + + + | Phone | Unavailable | + + + Support + + + + + | Name | Relationship | Address | Phone | + + + + + | Joseluis Desai | ECON | [place] | | | | | [address] | | + + + + + | Mila Desai | ECON | Unknown | | + + + + + Care Team Providers + +------+ + | Care Trust Accounts Supervisor Name | Role | Phone | + +------+ + | Bry Vaughn DO | PCP | | + +------+ + Reason for Visit +--------+ + | Reason | Comments | +--------+ + | Other | Appointment | +--------+ + Encounter Details +--------+ + + + + | Date | Type | Department | Care Team | Description | +--------+ + + + + | 08/30/ | Telephone | [facility] | Shaji Wilson | Other (Appointment) | | 2017 | | SURGERY [address] | MD Alessandro, [facility] [address] | | | | | [address] [place], [place] | [address] [facility] | | | | | [address] | [place] [address] | | | | | [phone] | [phone] | | | | | | | [...] [place] | | | | | | [address] | | | | | | | | +--------+---------+ + + + documented as of this encounter Visit Diagnoses Not on filedocumented in this encounter"
--- OUTSIDE RECORDS SUMMARY | ~2019-01-22 | XMS | Encounter Summary ---
Demographics + + + | Address | [address] | | | [place] [address] | + + + | Home Phone [...] | [place] | | | | | [address] | | + + + + + | Mila Desai | ECON | Unknown | | + + + + + Care Team Providers + +------+ + | Care Kick Boxer Name | Role | Phone | + +------+ + | Bry Vaughn DO | PCP | | + +------+ + Encounter Details +--------+ + + + + | Date | Type | Department | Care Team | Description | +--------+ + + + + | 08/17/ | Hospital | [facility] | Conversion | Diagnosis unknown | | 2018 | Encounter | CONVERSION [address] | Transaction, | | | | | [address] | Provider Unknown | | | | | [place], [place] | [phone] | | | | | [address] | | | | | | [phone] | | | +--------+ + + + [...] [place] | | | | | | [address] | | | | | | | [...]
--- OUTSIDE RECORDS SUMMARY | ~2019-01-22 | XMS | Encounter Summary ---
Demographics + + + | Address | [address] | | | [place] [address] | + + + | Home Phone [...] | [place] | | | | | [address] | | + + + + + | Mila Desai | ECON | Unknown | | + + + + + Care Team Providers + +------+ + | Care Licensed Weigher Name | Role | Phone | + +------+ + | Bry Vaughn DO | PCP | | + +------+ + Reason for Visit +--------+ + | Reason | Comments | +--------+ + | Other | formulary change | +--------+ + Encounter Details +--------+ + + + + | Date | Type | Department | Care Team | Description | +--------+ + + + + | 08/14/ | Telephone | [facility] [place] | Tyree Joyce, | Other (formulary | | 2019 | | PULMONARY [address] | MD [address] | change) | | | | [place], | [place], [place] | | | | | [place] [address] | [address] | | | | | [phone] | | | +--------+ + + + [...] [place] | | | | | | [address] | | | | | | | | +--------+---------+ + + + documented as of this encounter Visit Diagnoses Not on filedocumented in this encounter"
--- OUTSIDE RECORDS SUMMARY | ~2019-01-22 | XMS | Encounter Summary ---
Demographics + + + | Address | [address] | | | [place] [address] | + + + | Home Phone | | + + + | Preferred Language | Unknown | + + + | Marital Status | | + + + | Scientology Affiliation | 1028 | + + + | Race | Unknown | + + + | Ethnic Group | Unknown | + + + Author + + + | Author | [facility] | | | and [place] | + + + | Organization | [facility] | | | and [place] | + + + | Address | Unknown | + + + | Phone | Unavailable | + + + Support + + + + + | Name | Relationship | Address | Phone | + + + + + | Joseluis Desai | ECON | [place] | | | | | [address] | | + + + + + | Mila Desai | ECON | Unknown | | + + + + + Care Team Providers + +------+ + | Care Prop Setter Name | Role | Phone | + [...] [address] | | | | | [place], | [place], [place] | | | | | [place] [address] | [address] | | | | | [phone] | | | +--------+--------+ + + + [...] [place] | | | | | | [address] | | | | | | | | +--------+---------+ + + + documented as of this encounter Visit Diagnoses Not on filedocumented in this encounter"
--- OUTSIDE RECORDS SUMMARY | ~2019-01-22 | XMS | Encounter Summary ---
Demographics + + + | Address | [address] | | | [place] [address] | + + + | Home Phone | | + + + | Preferred Language | Unknown | + + + | Marital Status | | + + + | Samaritan Affiliation | 1028 | + + + [...] | [place] | | | | | [address] | | + + + + + | Mila Desai | ECON | Unknown | | + + + + + Care Team Providers + +------+ + | Care Electronic News Gathering Editor Name | Role | Phone | [...] [address] | | | | | [place], | [place], [place] | | | | | [place] [address] | [address] | | | | | [phone] | | | +--------+--------+ + + + [...] [place] | | | | | | [address] | | | | | | | | +--------+---------+ + + + documented as of this encounter Visit Diagnoses Not on filedocumented in this encounter"
--- OUTSIDE RECORDS SUMMARY | ~2019-01-22 | XMS | Encounter Summary ---
Demographics + + + | Address | [address] | | | [place] [address] | + + + | Home Phone | | + + + | Preferred Language | Unknown | + + + | Marital Status | | + + + | Jehovah'S Witness Affiliation | 1028 | + + + | Race | Unknown | + + + | Ethnic Group | Unknown | + + + Author + + + | Author | [facility] | | | and [place] | + + + | Organization | [facility] | | | and [place] | + + + | Address | Unknown | + + + | Phone | Unavailable | + + + Support + + + + + | Name | Relationship | Address | Phone | + + + + + | Joseluis Desai | ECON | [place] | | | | | [address] | | + + + + + | Mila Desai | ECON | Unknown | | + + + + + Care Team Providers + +------+ + | Care Asphalt Tamper Name | Role | Phone | + [...] Forrest SMITH | | | | | [phone] | [place] [address] | | +--------+ + + + + [...] [place] | | | | | | [address] | | | | | | | [...]
--- OUTSIDE RECORDS SUMMARY | ~2019-01-22 | XMS | Encounter Summary ---
Demographics + + + | Address | [address] | | | [place] [address] | + + + | Home Phone | | + + + | Preferred Language | Unknown | + + + | Marital Status | | + + + | Congregation Affiliation | 1028 | + + + | Race | Unknown | + + + | Ethnic Group | Unknown | + + + Author + + + | Author | [facility] | | | and [place] | + + + | Organization | [facility] | | | and [place] | + + + | Address | Unknown | + + + | Phone | Unavailable | + + + Support + + + + + | Name | Relationship | Address | Phone | + + + + + | Joseluis Desai | ECON | [place] | | | | | [address] | | + + + + + | Mila Desai | ECON | Unknown | | + + + + + Care Team Providers + +------+ + | Care Global Marketing Coordinator Name | Role | Phone | [...] | | | | | emphysema | [address] | [address] | | | | | ([facility]) | Onel Landa | [place], | | | | | Procedures | [address] | [place] [address] | | | | | NEW PT | [place], | Phone: | | | | | CONSULT | [place] | [phone] | | | | | | [address] | Fax: | | | | | | Phone: | [phone] | | | | | | [phone] | | | | | | | Fax: | | | | | | | [phone] | | +--------+--------+ + + + + Encounter Details +--------+---------+ + + + | Date | Type | Department | Care Team | Description | +--------+---------+ + + + | 12/12/ | Office | [facility] | Tyree Joyce, | COPD, severe (HCC) | | 2018 | Visit | PULMONARY [address] | MD [address] | (Primary Dx) | | | | [place], | [place], [place] | | | | | [place] [address] | [address] | | | | | [phone] | | | +--------+---------+ + + + [...] are using your inhaler correctly. Ask yo u doctor or health care provider if you have any questions. A special MedGuide will be given to you by the pharmacist with each prescription and refill . Be sure to read this information carefully each time. Talk to your groundskeeper porter regarding the use of this medicine in children. Special care may be needed. This medicine is not approved for use in children under 18 years of age. What side effects may I notice from receiving this medicine? Side effects that you should report to your doctor or health resident care assistant as soon as p ossible: allergic reactions like skin rash or hives, swelling of the face, lips, or tongue breathing problems right after inhaling your medicine changes in vision chest pain fast, irregular heartbeat feeling faint or lightheaded, falls fever or chills nausea, vomiting tiredness Side effects that usually do not require medical attention (report to your doctor or health resident care assistant if they continue or are bothersome): cough [...] this medicine? Visit your doctor or health resident care assistant for regular checkups. Tell your doctor or [facility] resident care assistant if your symptoms do not get better. [...] have surgery tell your doctor or health resident care assistant that you are using this medicine. Try not to come in contact with people with the chicken pox or measles. If you do, call your doctor. NOTE:This sheet is a summary. It may not cover all possible information. If you have questi ons about this medicine, talk to your doctor, pharmacist, or health care provider. Copyright 2018 Elsevier documented in this encounter Progress Notes Tyree [...] developed respiratory failure and was transferred to [facility] for further evaluation. T he patient was [...] in hemorrhagic shock. Patient was transferred to [place] where she wa s noted to have intra-abdominal bleeding and underwent embolization of the left gastric paco ry. Primary diagnosis was that of pseudoaneurysm of visceral artery. Patient returned to [place] in September 2016 with chest pain. She states that she was jiménez sferred to another facility but records are not available to collaborate. While hospitalized in [place] the patient's COPD regimen was changed to albuterol/ipratropi um mixed and use via nebulizer 4 times a day and a scheduled fashion and as needed Ventolin. Currently they reports their main symptoms at this point to be dyspnea. Amy are able to walk 500 feet at their own pace on level ground before developing shortness of breath. The d istance walked is predominately limited by dyspnea. One [...] Diagnosis Date COPD (chronic obstructive pulmonary disease) ([facility]) 2013 intubated 05/08/17 NSTEMI (non-ST elevated myocardial infarction) ([facility]) 05/11/17 Pseudoaneurysm ([facility]) 08/2017 "visceral artery" Shortness of breath Past Surgical History Past Surgical History: Procedure Laterality Date APPENDECTOMY 1996 CARDIAC CATHERIZATION N/A 05/09/2017 Procedure: CV LHC; Surgeon: Johnny Luther MD; Location: [facility] CV LAB HYSTERECTOMY 1996 OTHER SURGICAL HISTORY N/A 08/17/2017 Procedure: GI BLEED; Surgeon: Ion Power MD; Location: [facility] INTERVENTIONAL RADIOLOG Y OTHER SURGICAL HISTORY N/A 08/18/2017 Procedure: Gastric Artery Embolization with 2mm x 8cm coil and Rod 34 and 18 embolic; Isaac rgeon: Bobo Ha MD; Location: [facility] INTERVENTIONAL RADIOLOGY Family History: Family History Problem [...] Will consider referral for pulmonary rehab in [facility]. CC: Bry Vaughn, DO Tdocumented in this encounter Plan of Treatment +--------+---------+ + + + | Date | Type | Specialty | Care Team | Description | +--------+---------+ + + + | 06/26/ | Office | Cardiology | Aaron Zimmerman, | | | 2019 | Visit | | MD Katelyn MAGALLON | | | | | | [place] | | | | | | [address] | | | | | | | [...] | | | MD Isiah 12/30/2017 14:22[facility] | | | | | |IMPRESSION: [...] 12/30/2017 | | |14:22 | | |[facility] | | + + + LABS - [...]
--- OUTSIDE RECORDS SUMMARY | ~2019-01-22 | XMS | Encounter Summary ---
Demographics + + + | Address | [address] | | | [place] [address] | + + + | Home Phone | | + + + | Preferred Language | Unknown | + + + | Marital Status | | + + + | Pentecostalism Affiliation | 1028 | + + + | Race | Unknown | + + + | Ethnic Group | Unknown | + + + Author + + + | Author | [facility] | | | and [place] | + + + | Organization | [facility] | | | and [place] | + + + | Address | Unknown | + + + | Phone | Unavailable | + + + Support + + + + + | Name | Relationship | Address | Phone | + + + + + | Joseluis Desai | ECON | [place] | | | | | [address] | | + + + + + | Mila Desai | ECON | Unknown | | + + + + + Care Team Providers + +------+ + | Care Email Specialist Name | Role | Phone | + [...] [address] | change) | | | | [place], | [place], [place] | | | | | [place] [address] | [address] | | | | | [phone] | | | +--------+ + + + [...] [place] | | | | | | [address] | | | | | | | | +--------+---------+ + + + documented as of this encounter Visit Diagnoses Not on filedocumented in this encounter"
--- OUTSIDE RECORDS SUMMARY | ~2019-01-22 | XMS | Encounter Summary ---
Demographics + + + | Address | [address] | | | [place] [address] | + + + | Home Phone [...] | [place] | | | | | [address] | | + + + + + | Mila Desai | ECON | Unknown | | + + + + + Care Team Providers + +------+ + | Care Sheep Rancher Name | Role | Phone | + [...] Forrest SMITH | | | | | [phone] | [place] [address] | | +--------+ + + + + [...] [place] | | | | | | [address] | | | | | | | [...]
--- OUTSIDE RECORDS SUMMARY | ~2019-01-22 | XMS | Encounter Summary ---
Demographics + + + | Address | [address] | | | [place] [address] | + + + | Home Phone | | + + + | Preferred Language | Unknown | + + + | Marital Status | | + + + | Judaism Affiliation | 1028 | + + + | Race | Unknown | + + + | Ethnic Group | Unknown | + + + Author + + + | Author | [facility] | | | and [place] | + + + | Organization | [facility] | | | and [place] | + + + | Address | Unknown | + + + | Phone | Unavailable | + + + Support + + + + + | Name | Relationship | Address | Phone | + + + + + | Joseluis Desai | ECON | [place] | | | | | [address] | | + + + + + | Mila Desai | ECON | Unknown | | + + + + + Care Team Providers + +------+ + | Care Automotive Glass Specialist Name | Role | Phone | + +------+ + | Bry Vaughn DO | PCP | | + +------+ + Reason for Visit +--------+ + | Reason | Comments | +--------+ + | Other | symbicort | +--------+ + Encounter Details +--------+ + + + + | Date | Type | Department | Care Team | Description | +--------+ + + + + | 01/30/ | Telephone | [facility] | Tyree Joyce, | Other (symbicort) | | 2017 | | PULMONARY [address] | MD [address] | | | | | [place], | [place] | | | | | [place] [address] | [address] | | | | | [phone] | | | +--------+ + + + [...] [place] | | | | | | [address] | | | | | | | | +--------+---------+ + + + documented as of this encounter Visit Diagnoses Not on filedocumented in this encounter"
--- OUTSIDE RECORDS SUMMARY | ~2019-01-22 | XMS | Encounter Summary ---
Demographics + + + | Address | [address] | | | [place] [address] | + + + | Home Phone | | + + + | Preferred Language | Unknown | + + + | Marital Status | | + + + | Mormon Affiliation | 1028 | + + + | Race | Unknown | + + + | Ethnic Group | Unknown | + + + Author + + + | Author | [facility] | | | and [place] | + + + | Organization | [facility] | | | and [place] | + + + | Address | Unknown | + + + | Phone | Unavailable | + + + Support + + + + + | Name | Relationship | Address | Phone | + + + + + | Joseluis Desai | ECON | [place] | | | | | [address] | | + + + + + | Mila Desai | ECON | Unknown | | + + + + + Care Team Providers + +------+ + | Care In School Suspension Coordinator Name | Role | Phone | [...] [address] | | | | | ([facility]) | Onel Landa | [place], | | | | | Procedures | [address] | [place] [address] | | | | | NEW PT | [place], | Phone: | | | | | CONSULT | [place] | [phone] | | | | | | [address] | Fax: | | | | | | Phone: | [phone] | | | | | | [phone] | | | | | | | Fax: | | | | | | | [phone] | | +--------+--------+ + + + + Encounter Details +--------+---------+ + + + | Date | Type | Department | Care Team | Description | +--------+---------+ + + + | 12/12/ | Office | [facility] | Tyree Joyce, | COPD, severe (HCC) | | 2018 | Visit | PULMONARY [address] | MD [address] | (Primary Dx) | | | | [place], | [place], [place] | | | | | [place] [address] | [address] | | | | | [phone] | | | +--------+---------+ + + + [...] information carefully each time. Talk to your sweet goods machine operator regarding the use of this medicine in children. Special care may be needed. This medicine is not approved for use in children under 18 years of age. What side effects may I notice from receiving this medicine? Side effects that you should report to your doctor or health floor care specialist as soon as p ossible: allergic reactions like skin rash or hives, swelling of the face, lips, or tongue breathing problems right after inhaling your medicine changes in vision chest pain fast, irregular heartbeat feeling faint or lightheaded, falls fever or chills nausea, vomiting tiredness Side effects that usually do not require medical attention (report to your doctor or health floor care specialist if they continue or are bothersome): cough [...] this medicine? Visit your doctor or health floor care specialist for regular checkups. Tell your doctor or [facility] floor care specialist if your symptoms do not get better. [...] have surgery tell your doctor or health floor care specialist that you are using this medicine. Try [...] developed respiratory failure and was transferred to [facility] for further evaluation. T he patient [...] in hemorrhagic shock. Patient was transferred to [place] where she wa s noted to have intra-abdominal bleeding and underwent embolization of the left gastric paco ry. Primary diagnosis was that of pseudoaneurysm of visceral artery. Patient returned to [place] in September 2016 with chest pain. She states that she was ijménez sferred to another facility but records are not available to collaborate. While hospitalized in [place] the patient's COPD regimen was changed to [...] Diagnosis Date COPD (chronic obstructive pulmonary disease) ([facility]) 2013 intubated 05/08/17 NSTEMI (non-ST elevated myocardial infarction) ([facility]) 05/11/17 Pseudoaneurysm ([facility]) 08/2017 "visceral artery" Shortness of breath Past Surgical History Past Surgical History: Procedure Laterality Date APPENDECTOMY 1996 CARDIAC CATHERIZATION N/A 05/09/2017 Procedure: CV LHC; Surgeon: Johnny Luther MD; Location: [facility] CV LAB HYSTERECTOMY 1996 OTHER SURGICAL HISTORY N/A 08/17/2017 Procedure: GI BLEED; Surgeon: Ion Power MD; Location: [facility] INTERVENTIONAL RADIOLOG Y OTHER SURGICAL HISTORY N/A 08/18/2017 Procedure: Gastric Artery Embolization with 2mm x 8cm coil and Rod 34 and 18 embolic; Isaac rgeon: Bobo Ha MD; Location: [facility] INTERVENTIONAL RADIOLOGY Family History: Family History [...] Will consider referral for pulmonary rehab in [facility]. CC: Bry Vaughn, DO Tdocumented in this encounter Plan of Treatment +--------+---------+ + + + | Date | Type | Specialty | Care Team | Description | +--------+---------+ + + + | 06/26/ | Office | Cardiology | Aaron Zimmerman, | | | 2019 | Visit | | MD Katelyn MAGALLON | | | | | | [place] | | | | | | [id number] | | | | | | | [...] | | | MD Isiah 12/30/2017 14:22[facility] | | | | | |IMPRESSION: [...] 12/30/2017 | | |14:22 | | |[facility] | | + + + LABS [...]
--- OUTSIDE RECORDS SUMMARY | ~2019-01-22 | XMS | Encounter Summary ---
Demographics + + + | Address | [address] | | | [place] [address] | + + + | Home Phone | | + + + | Preferred Language | Unknown | + + + | Marital Status | | + + + | Jehovah'S Witness Affiliation | 1028 | + + + | Race | Unknown | + + + | Ethnic Group | Unknown | + + + Author + + + | Author | [facility] | | | and [place] | + + + | Organization | [facility] | | | and [place] | + + + | Address | Unknown | + + + | Phone | Unavailable | + + + Support + + + + + | Name | Relationship | Address | Phone | + + + + + | Joseluis Desai | ECON | [place] | | | | | [address] | | + + + + + | Mila Desai | ECON | Unknown | | + + + + + Care Team Providers + +------+ + | Care Rig Builder Helper Name | Role | Phone | + [...] Forrest SMITH | | | | | [phone] | [place] [address] | | +--------+ + + + + [...] [place] | | | | | | [address] | | | | | | | [...]
--- OUTSIDE RECORDS SUMMARY | ~2019-01-22 | XMS | Encounter Summary ---
Demographics + + + | Address | [address] | | | [place] [address] | + + + | Home Phone [...] + + | Author | [facility] | | | and [place] | + + + | Organization | [facility] | | | and [place] | + + + | Address | Unknown | + + + | Phone | Unavailable | + + + Support + + + + + | Name | Relationship | Address | Phone | + + + + + | Joseluis Desai | ECON | [place] | | | | | [address] | | + + + + + | Mila Desai | ECON | Unknown | | + + + + + Care Team Providers + +------+ + | Care Web Press Operator Name | Role | Phone | [...] + + | 08/25/ | Telephone | Mobile | Riky Rodriguez | Hospital Follow-up | | 2018 | | Internal Medicine | MD Jarocho [address] | | | | | [facility] [address] | | | | | [address] [place], [place] | [place] [address] | | | | | [address] | [phone] | | | | | [phone] | | | +--------+ + + + [...] [place] | | | | | | [address] | | | | | | | | +--------+---------+ + + + documented as of this encounter Visit Diagnoses Not on filedocumented in this encounter"
--- OUTSIDE RECORDS SUMMARY | ~2019-01-22 | XMS | Encounter Summary ---
Demographics + + + | Address | [address] | | | [place] [address] | + + + | Home Phone | | + + + | Preferred Language | Unknown | + + + | Marital Status | | + + + | Pentecostalism Affiliation | 1028 | + + + | Race | Unknown | + + + | Ethnic Group | Unknown | + + + Author + + + | Author | [facility] | | | and [place] | + + + | Organization | [facility] | | | and [place] | + + + | Address | Unknown | + + + | Phone | Unavailable | + + + Support + + + + + | Name | Relationship | Address | Phone | + + + + + | Joseluis Desai | ECON | [place] | | | | | [address] | | + + + + + | Mila Desai | ECON | Unknown | | + + + + + Care Team Providers + +------+ + | Care Network Operations Center Engineer Name | Role | Phone | + +------+ + | Bry Vaughn DO | PCP | | + +------+ + Encounter Details +--------+ + + + + | Date | Type | Department | Care Team | Description | +--------+ + + + + | 08/17/ | Hospital | [facility] | Conversion | Diagnosis unknown | | 2018 | Encounter | CONVERSION [address] | Transaction, | | | | | [address] | Provider Unknown | | | | | [place], [place] | [phone] | | | | | [address] | | | | | | [phone] | | | +--------+ + + + [...] [place] | | | | | | [address] | | | | | | | [...]
--- OUTSIDE RECORDS SUMMARY | ~2019-01-22 | XMS | Encounter Summary ---
Demographics + + + | Address | [address] | | | [place] [address] | + + + | Home Phone [...] | [place] | | | | | [address] | | + + + + + | Mila Desai | ECON | Unknown | | + + + + + Care Team Providers + +------+ + | Care Idea Worker Name | Role | Phone | + +------+ + | Bry Vaughn DO | PCP | | + +------+ + Encounter Details +--------+ + + + + | Date | Type | Department | Care Team | Description | +--------+ + + + + | 12/30/ | Hospital | [facility] | Tyree Joyce, | COPD, severe (HCC) | | 2018 | Encounter | [facility] | MD [address] | | | | | [address] | [place], [place] | | | | | [place], | [address] | | | | | [place] [address] | | | | | | [phone] | | | +--------+ + + + [...] mLs by | 360 | 1 | //20 | | | mL nebulizer | nebulization [...] by | 225 mL | 0 | 12/13/19 | | | (ATROVENT) 500 | nebulization [...] | | | | | [facility] [place] | | | | | | [id number] | | | | | | | [...] | | | MD Isiah 12/30/2017 14:22[facility] | | | | | [...] 12/30/2017 | | |14:22 | | |[facility] | | + + + documented in [...]
--- OUTSIDE RECORDS SUMMARY | ~2019-01-22 | XMS | Encounter Summary ---
Demographics + + + | Address | [address] | | | [place] [address] | + + + | Home Phone | | + + + | Preferred Language | Unknown | + + + | Marital Status | | + + + | Islam Affiliation | 1028 | + + + [...] | [place] | | | | | [address] | | + + + + + | Mila Desai | ECON | Unknown | | + + + + + Care Team Providers + +------+ + | Care Garment Sewer Hand Name | Role | Phone | + [...] Forrest SMITH | | | | | [phone] | [place] [address] | | +--------+ + + + + [...] [place] | | | | | | [address] | | | | | | | [...]
--- OUTSIDE RECORDS SUMMARY | ~2019-01-22 | XMS | Encounter Summary ---
Demographics + + + | Address | [address] | | | [place] [address] | + + + | Home Phone [...] | [place] | | | | | [address] | | + + + + + | Mila Desai | ECON | Unknown | | + + + + + Care Team Providers + +------+ + | Care Fire Control System Installer Name | Role | Phone | + [...] | | [place] | [place] [address] | [place] [address] | | | | [address] | [phone] | embolic | | | | [phone] | | | +--------+---------+ + + + [...] Follow Up Appointments: Bry Vaughn, DO [address] [facility] [address] [place] [address] Schedule an appointment as soon as possible for a visit Discharge Disposition: Home Consultants This Admission: Vascular surgery, General Surgery, Interventional Radiology Hospital Course: Amy Coleman is a 62-year-old female with past medical history significant for COPD, CAD s/p NSTEMI ( no PCI), who was transferred to [facility] for ICU care from [place] on 08/17 wh ere she was intubated [...] going home to continue duo nebs at [facility]. She is being discharged today [...] this chart may have been created with [employer] voice recognition software. Occasi onal wrong-word or [...] urine. Belly (abdominal) pain Date Last Reviewed: 09/12/201519997530-6954 [employer]. [address] [place] [address], [place] [address]. All righ ts reserved. This information is [...] about recovering at home. Date Last Reviewed: 02/12/201619990779-9519 [employer]. [address] [place] [address]. All righ ts reserved. This information is not intended as a substitute for professional medical care. Always follow your healthcare professional's instructions. [facility] Patient Belongings Amy Whitaker Jared 1955 Patient Signature: Clinician/Vp Cardiovascular Signature: Discharge Instructions: After Your Surgery You [...] interact with your prescription medicines or other vphh-apu-gzygwpn (OTC) medicines. Some prescription medicines have acetaminophen and other ingredients.Using both prescription a nd OTC acetaminophenfor paincan cause you to overdose. Readthe labels on your OTC [facility] care. This will help youto [...] of taking these medicines. Date Last Reviewed: 02/12/201619995030-2577 [employer]. [address] [place] [address], [place] [address]. All righ ts reserved. This information is [...] is a 62 year old female from [place], [place] with [facility] Medicaid insurance. SW received referral for [...] ( no PCI), who was transferred to [facility] for ICU care from [place] on 08/17 wh ere she was intubated [...] - Single Lumen 05/08/17 0130 Left Forearm plcu-uiu-egdkep catheter syst em 20 gauge 106 days [...] this chart may have been created with [employer] voice recognition software. Occasi onal wrong-word or sound-alike substitutions may have occurred due to the inherent lobo itations of voice recognition software. Please read the chart carefully and recognize, using context, where these substitutions have occurred Krzysztof Ordaz MD - 08/21/2017 5:47 PM PDTFormatting of this note might be different f rom the original. [facility] Surgery Team Hospital Day: 5 DATE/TIME: [...] Signed by: Krzysztof Montaño MD, 08/21/2017 17:47 [facility] ope, Riky Avendaño MD - 08/21/2017 9:49 AM PDT Patient: Amy Coleman Date of : 1955 Admit Date: 08/17/2017 Date of Service: 08/21/2017 PCP: Bry Vaughn DO Hospital Day: Hospital Day: 5 Hospital Course: Amy Coleman is a 62-year-old female with past medical history significant for COPD, CAD s/p NSTEMI ( no PCI), who was transferred to [facility] for ICU care from [place] on 08/17 wh ere she was intubated [...] - Single Lumen 05/08/17 0130 Left Forearm tgnt-ira-cyuwhm catheter syst em 20 gauge 105 days [...] Hold Result Value Ref Range Product Code K8594J24 UNIT # [id number] UNIT ABO O UNIT RH POS Unit Status IS Blood Product Expiration Date and Time Product Blood Type Barcode 5100 Product Code [id number] UNIT # [id number] UNIT ABO O UNIT RH POS Unit Status RE Blood Product Expiration Date and Time [id number] Product Blood Type Barcode 5100 Hemoglobin and [...] this chart may have been created with [employer] voice recognition software. Occasi onal wrong-word or sound-alike substitutions may have occurred due to the inherent lobo itations of voice recognition software. Please read the chart carefully and recognize, using context, where these substitutions have occurred Krzysztof Ordaz MD - 08/20/2017 12:23 PM PDTFormatting of this note might be different f rom the original. [facility] Surgery Team Hospital Day: 4 DATE/TIME: [...] Signed by: Krzysztof Montaño MD, 08/20/2017 12:23 [facility] Nadia Blount MD - 08/20/2017 10:02 AM PDT Patient: Amy Coleman Date of : 1955 Admit Date: 08/17/2017 Date of Service: 08/20/2017 PCP: Bry Vaughn DO Hospital Day: Hospital Day: 4 Hospital Course: Amy Coleman is a 62-year-old female with past medical history significant for COPD, CAD s/p NSTEMI ( no PCI), who was transferred to [facility] for ICU care from [place] on 08/17 wh ere she was intubated [...] - Single Lumen 05/08/17 0130 Left Forearm jgyf-eta-swuyhk catheter syst em 20 gauge 104 days [...] this chart may have been created with [employer] voice recognition software. Occasi onal wrong-word or sound-alike substitutions may have occurred due to the inherent lobo itations of voice recognition software. Please read the chart carefully and recognize, using context, where these substitutions have occurred mnadeem, Vikram Mayes MD - 08/20/2017 5:28 AM PDT Critical Care Progress Note [facility] Date of Service: 08/20/2017 Admit Date: [...] NSTEMI (no PCI, mild disease) presented to [facility] on 08/16 with shortness of breath [...] NSTEMI (no PCI, mild disease) presented to [facility] on 08/16 with shortness of breath [...] Today: Yes Extubated Bowel Function: Last BM: PET COUNSELOR. Scheduled bowel meds started. Indwelling Bladder Catheter [...] LABORATORY: I personally reviewed recent labs in [facility] and ordered appropriate follow-up domonique dies. Recent [...] Component Value Date PHART 7.36 (L) 08/19/2017 [id number] 44 (H) 08/19/2017 PO2ART 91 (H) 08/19/2017 [id number] 13.3 (L) 08/19/2017 [id number] 25.2 08/19/2017 BEART -0.2 08/19/2017 CARBOXYHGB 1.0 [...] this chart may have been created with [employer] voice recognition software. Occasi onal wrong-word or sound-alike substitutions may have occurred due to the inherent lobo itations of voice recognition software. Please read the chart carefully and recognize, using context, where these substitutions have occurred. Krzysztof Ordaz MD - 08/19/2017 2:04 PM PDT [facility] General Surgery Team Hospital Day: 3 DATE/TIME: [...] Signed by: Krzysztof Montaño MD, 08/19/2017 14:05 [facility] arocho Hunt RRT - 08/19/2017 10:10 [...] Coleman DATE OF : 1955 MED RECORD: [id number] ASSESSMENT/PLAN PROCEDURE: mesenteric angiogram 08/18 ASSESSMENT: 1. [...] 08/19/1761408/18/172018 PHART 7.25* 7.34* PO2ART 58* 139* ILU7KFC 53* 39 BEART -4.1* -4.5* EXAM: General [...] 6:50 AM PDT Critical Care Progress Note [facility] Date of Service: 08/19/2017 Admit Date: [...] NSTEMI (no PCI, mild disease) presented to [facility] on 08/16 with shortness of breath [...] NSTEMI (no PCI, mild disease) presented to [facility] on 08/16 with shortness of breath [...] Today: Yes Extubated Bowel Function: Last BM: PET COUNSELOR. Scheduled bowel meds started. Indwelling Bladder Catheter [...] LABORATORY: I personally reviewed recent labs in [facility] and ordered appropriate follow-up domonique dies. Recent [...] Component Value Date PHART 7.34 (L) 08/18/2017 GSF1UWL 39 08/18/2017 PO2ART 139 (H) 08/18/2017 [id number] 11.2 (L) 08/18/2017 GLM5AAZ 21.2 (L) 08/18/2017 BEART -4.5 (L) 08/18/2017 [...] this chart may have been created with [employer] voice recognition software. Occasi onal wrong-word or [...] 6:28 AM PDT Critical Care Progress Note [facility] Date of Service: 08/18/2017 Admit Date: [...] sease only, no PCI) presented to OSH ([place], [place]) initially w/ c/o SOB and was intubated for acute on chronic respiratory failure (ABG prior to intubation: 7.0/98/217/26). Pt then developed hypotension/HD instability for which she required 2 pressors. hgb fell from 15-- >4 and pt rc'd 6u PRBCs, 2uFFP, 1u PLT, 5L NS. CT abdomen showed RP hematoma and pt was tra nsferred to [facility] for further eval of this. 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 Gen surgery consulted as w ell as vascular to determine best approach to vascular issues given high potential for re bl eed. Summary of Significant Events: 08/17: Admitted to [facility]. Intubated. To IR 08/18: Awake, [...] l plan set Bowel Function: Last BM: PET COUNSELOR. PRN bowel meds available. Indwelling Bladder Catheter Indication: Vasopressors for hemodynamic instability Subjective 24hr interval history: Transferred from [place], [place] to [facility] Afebrile Rc'd 6u PRBCs, 2u [...] LABORATORY: I personally reviewed recent labs in [facility] and ordered appropriate follow-up domonique dies. Recent [...] Results Component Value Date PHART 7.39 08/18/2017 YBV0HNP 32 08/18/2017 PO2ART 108 (H) 08/18/2017 G3KBMCTRO 16.2 08/18/2017 JQY1KYF 19.4 (L) 08/18/2017 BEART -5.6 (L) 08/18/2017 [...] this chart may have been created with [employer] recognition software. Occasi onal wrong-word or sound-alike substitutions may have occurred due to the inherent lobo itations of voice recognition software. Please read the chart carefully and recognize, using context, where these substitutions have occurred. Associated attestation - Vikram James MD - 08/18/2017 8:56 AM PDT Physician Attestation Note [facility] Date of Service: 08/18/2017 Reason for critical care: Hemorrhagic shock secondary to intra-abdominal bleeding I reviewed and discussed the patient history, assessment and plan with the KOLE, during pers onal discussion and/or multi-disciplinary rounds. Acute issues or additions to plan of care: 62 year old lady with PMH of COPD, CAD s/p NSTEMI (no PCI, mild disease) presented to [facility] on 08/16 with shortness of breath [...] this chart may have been created with [employer] voice recognition software. Occasi onal wrong-word or [...] riginal. . Critical Care-Care Progress Note Update [facility] Date of Service: 08/17/2017 Admit Date: [...] called and discussed plans with son, Joseluis ([phone]). He expre ssed understanding and wanted to [...] this chart may have been created with [employer] voice recognition software. Occasi onal wrong-word or [...] | | | | | [place], [place] | | | | | | [address] | | | | | | | [...] | | MEDICAL | | | | [facility] [address], | | CENTER | | | | [place] [address] | | LABORATORY | | | | [...] + + | ANAODILIASneha YU | [address] | [place] [address] | | | [facility] | | | | | LABORATORY [...] [facility] | | | | Performed by [facility] [address] | | SACRED | | | | [address] [place] | | HEART | | | | [address] | | MEDICAL | | | | | | CENTER | | | | | | LABORATORY | | | | | | CLAUIDANER | | + + + + + + + + | Specimen | + + | Blood specimen | | (specimen) | + + + + + + + | Performing | Address | City/State/Zipcode | Phone Number | | Organization | | | | + + + + + | GILBERTO NICHOLAS | [address] | [place] [address] | | | [facility] | | | | | LABORATORY [...] | | MEDICAL | | | | [facility] [address], | | CENTER | | | | [place] [address] | | LABORATORY | | | | [...] + + | [facility] | [address] | [place] [address] | | | [facility] | | | | | LABORATORY [...] PROVIDE NCE | | | | by [facility] [address], | | SACRED | | | | [place] [address] | | HEART | | | |Performed by [facility] [address] [facility] [address], [place], [place] | | MEDICAL | | | [...] + + | [facility] | [address] | [place], [place] | | | HEART MEDICAL CENTER [...] [facility] | | | | Performed by [facility] [address] | | SACRED | | | | [address] [place] | | HEART | | | | [address] | | MEDICAL | | | | [...] + + | GILBERTO NICHOLAS | [address] | [place] [address] | | | HEART MEDICAL CENTER | [...] [facility] | | | | Performed by [facility] [address] | | SACRED | | | | [address] [place] | | HEART | | | | [address] | | MEDICAL | | | | [...] + + | GILBERTO NICHOLAS | [address] | [place] [address] | | | [facility] | | | | | LABORATORY [...] + + + + | Product | [id number] | | REFERENCE | | | Code | | | LAB [facility] | | | | | | [facility] | | | | | | [facility] | | | | | | BLOOD | | | | | | CENTER | | + + + + + + | UNIT # | [id number] | | REFERENCE | | | | | | LAB [facility] | | | | | | [facility] | | | | | | [facility] | | | | | | BLOOD | | | | | | CENTER | | + + + + + + | UNIT ABO | O | | REFERENCE | | | | | | LAB [facility] | | | | | | [facility] | | | | | | [facility] | | | | | | BLOOD | | | | | | CENTER | | + + + + + + | UNIT RH | POS | | REFERENCE | | | | | | LAB [facility] | | | | | | [facility] | | | | | | [facility] | | | | | | BLOOD | | | | | | CENTER | | + + + + + + | Unit Status | IS | | REFERENCE | | | | | | LAB [facility] | | | | | | [facility] | | | | | | [facility] | | | | | | BLOOD | | | | | | CENTER | | + + + + + + | Blood | [id number] | | REFERENCE | | | Product | | | LAB [facility] | | | Expiration | | | [facility] | | | Date and | | | [facility] | | | Time | | | BLOOD | | | | | | CENTER | | + + + + + + | Product | [id number] | | REFERENCE | | | Blood Type | | | LAB [facility] | | | Barcode | | | [facility] | | | | | | [facility] | | | | | | BLOOD | | | | | | CENTER | | + + + + + + | Product | [id number] | | REFERENCE | | | Code | | | LAB [facility] | | | | | | [facility] | | | | | | [facility] | | | | | | BLOOD | | | | | | CENTER | | + + + + + + | UNIT # | [id number] | | REFERENCE | | | | | | LAB [facility] | | | | | | [facility] | | | | | | [facility] | | | | | | BLOOD | | | | | | CENTER | | + + + + + + | UNIT ABO | O | | REFERENCE | | | | | | LAB [facility] | | | | | | [facility] | | | | | | [facility] | | | | | | BLOOD | | | | | | CENTER | | + + + + + + | UNIT RH | POS | | REFERENCE | | | | | | LAB [facility] | | | | | | [facility] | | | | | | [facility] | | | | | | BLOOD | | | | | | CENTER | | + + + + + + | Unit Status | RE | | REFERENCE | | | | | | LAB [facility] | | | | | | [facility] | | | | | | [facility] | | | | | | BLOOD | | | | | | CENTER | | + + + + + + | Blood | [id number] | | REFERENCE | | | Product | | | LAB [facility] | | | Expiration | | | [facility] | | | Date and | | | [facility] | | | Time | | | BLOOD | | | | | | CENTER | | + + + + + + | Product | [id number] | | REFERENCE | | | Blood Type | | | LAB [facility] [place] | | | Barcode | | | [...] + + + | Specimen Expiration Date: [id number] | REFERENCE LAB | | | [facility] | | | [facility] | | | BLOOD CENTER | + + + + + + + + | Performing | Address | City/State/Zipcode | Phone Number | | Organization | | | | + + + + + | RE[facility]ENCE [facility] | [address] | [place] [address] | [phone] | | [facility] | | | | | [facility] [...] [facility] | | | | Performed by [facility] [address] | | SACRED | | | | [address] [place] | | HEART | | | | [address] | | MEDICAL | | | | [...] + + | ANAODILIASneha NICHOLAS | [address] | [place] [address] | | | [facility] | | | | | LABORATORY [...] [facility] | | | | Performed by [facility] [address] | mmol/L | SACRED | | | | [address], [place] | | HEART | | | | [address] | | MEDICAL | | | | [...] [address] | [place] [address] | | | HEART [facility] | | | | [...] [facility] | | | | Performed by [facility] [address] | mmol/L | SACRED | | | | [address], [place], [place] | | HEART | | | | [address] | | MEDICAL | | | | [...] + | GILBERTO NICHOLAS | [address] [facility] | [place] [address] | | | [facility] | | | | | LABORATORY [...] [facility] | | | | Performed by [facility] [address] | | SACRED | | | | [address] [place] | | HEART | | | | [address] | | MEDICAL | | | | [...] + | PROVIDEODILIAE YU | [address] [facility] [address] | [place] [address] | | | [facility] | | | | | CELESTE [...] CENTER | | | | 3.5Performed by [facility] [address] | | LABORATORY | | | | [address] [place] | | [place]ERNER | | | | [address] | | | | + + + + + + + + | Specimen | + + | Blood specimen | | (specimen) | + + + + + + + | Performing | Address | City/State/Zipcode | Phone Number | | Organization | | | | + + + + + | GILBERTO NICHOLAS | [address] | [place] [address] | | | [facility] | | | | | LABORATORY [...] CHAVEZE | | | Venous | by [facility] [address], | mmol/L | SACRED | | | | [place], [place] | | HEART | | | |Performed by [facility] [address], [place] | | MEDICAL | | | [...] + + | [facility] | [address] | [place] | | | HEART MEDICAL CENTER [...] | | MEDICAL | | | | [facility] [address], | | CENTER | | | | [place] [address] | | LABORATORY | | | | [...] SACRED | [address] | [place] [address] | | | [facility] | | | | | LABORATORY [...] | PROVID ENCE | | | | [facility] [address], | | SACRED | | | | [place] [address] | | HEART | | | |Performed by [facility] [address], [place] [address] | | MEDICA L | | | [...] + + | GILBERTO NICHOLAS | [address] | [place] [address] | | | [facility] | | | | | LABORATORY [...] | [facility] | | | | by [facility] [address], | mmol/L | SACRED | | | | [place] [address] | | HEART | | | |Performed by [facility] [address], [place] [address] | | MEDICAL | | | | [...] + + | GILBERTO NICHOLAS | [address] | [place] [address] | | | [facility] | | | | | CELESTE [...] mg/dL | PROVID[facility] | | | | [facility] [address], | | SACRED | | | | [place] [address] | | HEART | | | |Performed by [facility] [address], [place] [address] | | MEDICAL | | | | [...] + + | GILBERTO NICHOLAS | [address] | [place] [address] | | | [facility] | | | | | LABORATORY [...] CE | | | ARTERIAL | by [facility] [address] [facility] [address], | | SACRED | | | | [place] [address] | | HEART | | | |Performed by [facility] [address], [place] [address] | | MEDICAL | | | | [...] + + | ANAODILIASneha YU | [address] | [place] [address] | | | [facility] | | | | | LABORATORY [...] [facility] | | | | Performed by [facility] [address] | | SACRED | | | | [address] | | HEART | | | | [address] | | MEDICAL | | | | [...] + + | GILBERTO NICHOLAS | [address] | [place] [address] | | | [facility] | | | | | LABORATORY [...] CE | | | ARTERIAL | by [facility] [address], | | SACRED | | | | [place] [address] | | HEART | | | |Performed by [facility] [address], [place] [address] | | MEDICAL | | | | [...] + + | GILBERTO NICHOLAS | [address] | [place] [address] | | | HEART [facility] | | | | [...] + + + + + | [facility] | <0.2 | 0.0 - 0.9 [...] | | | | | | [facility] [id number] | | | | | | [address] | | | | | | [place] | | | | | | [id number] [address] J | | | | | | Ph:[phone] | | | | + + + + + + + + | Specimen | + + | Blood specimen | | (specimen) | + + + + + + + | Performing | Address | City/State/Zipcode | Phone Number | | Organization | | | | + + + + + | GILBERTO NICHOLAS | [address] [facility] [address] | [place] [address] | | | [facility] | | | | | LABORATORY [...] [facility] | | | Arterial | by [facility] [address], | mmol/L | SACRED | | | | [place] [address] | | HEART | | | |Performed by [facility] [address], [place] [address] | | MEDICAL | | | | [...] + + | ANAODILIASneha YU | [address] | [place] [address] | | | [facility] | | | | | CELESTE [...] CE | | | ARTERIAL | by [facility] [address], | | SACRED | | | | [place] [address] | | HEART | | | |Performed by [facility] [address], [place] [address] | | MEDICAL | | | | [...] + | GILBERTO NICHOLAS | [address] [place] [address]. | [place] [address] | | | [facility] | | | | | LABORATORY [...] [facility] | | | | Performed by [facility] [address] | | SACRED | | | | [address] [place] | | HEART | | | | [address] | | MEDICAL | | | | [...] + + | [facility] | [address] | [place] [address] | | | [facility] | | | | | LABORATORY [...] MEDICAL | | | | Performed by [facility] [address] | | CENTER | | | | [address] [place], [place] | | LABORATORY | | | | [address] | | [place] | | | | [...] + + | [facility] | [address] | [place] [address] | | | [facility] | | | | | LABORATORY [...] | | | Arterial | Performed by [facility] [address] | mmol/L | SACRED | | | | [address], [place] | | HEART | | | | [address] | | MEDICAL | | | | [...] + + | GILBERTO NICHOLAS | [address] | [place] [address] | | | [facility] | | | | | CELESTE [...] | [facility] | | | | by [facility] [address], | mmol/L | SACRED | | | | [place] [address] | | HEART | | | |Performed by [facility] [address], [place] [address] | | MEDICAL | | | | [...] + + | GILBERTO NICHOLAS | [address] | [place] [address] | | | [facility] | | | | | LABORATORY [...] | | | ARTERIAL | Performed by [facility] [address] | | SACRED | | | | [address] [place] | | HEART | | | | [address] | | MEDICAL | | | | [...] + + | ANAODILIASneha YU | [address] | [place] [address] | | | HEART MEDICAL CENTER | [...] [facility] | | | | Performed by [facility] [address] | | SACRED | | | | [address] | | HEART | | | | [address] | | MEDICAL | | | | [...] + + | GILBERTO NICHOLAS | [address] | [place] [address] | | | [facility] | | | | | LABORATORY [...] [facility] | | | Venous | by [facility] [address], | mmol/L | SACRED | | | | [place] [address] | | HEART | | | |Performed by [facility] [address], [place] [address] | | MEDICAL | | | | [...] SACRED | [address] | [place] [address] | | | [facility] | | | | | LABORATORY [...] | | MEDICAL | | | | [facility] [address], | | CENTER | | | | [place] [address] | | LABORATORY | | | | | | [place] | | + + + + + + + + | Specimen | + + | Blood specimen | | (specimen) | + + + + + + + | Performing | Address | City/State/Zipcode | Phone Number | | Organization | | | | + + + + + | GILEBRTO NICHOLAS | [address] | [place] [address] | | | [facility] | | | | | CELESTE [...] | | HEART | | | | [facility] | | MEDICAL | | [...] IOM | | | | | | ([facility]). | | | | | [...] | | | | | | [address] | | | | | | [place] [address] [place], [place] | | | | | | [id number] Daniel | | | | | | Allie HU Ph:[phone] | | | | + + + + + + + + | Specimen | + + | Blood specimen | | (specimen) | + + + + + + + | Performing | Address | City/State/Zipcode | Phone Number | | Organization | | | | + + + + + | GILBERTO NICHOLAS | [address] | [place] [address] | | | [facility] | | | | | CELESTE [...] [facility] | | | Venous | by [facility] [address], | mmol/L | SACRED | | | | [place] [address] | | HEART | | | |Performed by [facility] [address], [place] [address] | | MEDICAL | | | | [...] + + | GILBERTO NICHOLAS | [address] | [place] [address] | | | [facility] | | | | | LABORATORY [...] MIKE MISTRY | | | Cells | [facility] [address], | | DANYED | | | | [place] [address] | | HEART | | | |Performed by [facility] [address], [place] [address] | | MEDICA L | | | [...] + + | GILBERTO NICHOLAS | [address] | [place] [address] | | | [facility] | | | | | LABORATORY [...] | [facility] | | | | by [facility] [address], | mmol/L | SACRED | | | | [place] | | HEART | | | |Performed by [facility] [address], [place] | | MEDICAL | | | [...] + + | [facility] | [address] | [place] | | | [facility] | [...] | | | Arterial | Performed by [facility] [address] | mmol/L | SACRED | | | | [address] [place], [place] | | HEART | | | | [address] | | MEDICAL | | | | [...] + + | ANAODILIASneha YU | [address] | [place] [address] | | | [facility] | | | | | LABORATORY [...] E | | | Normalized | by [place] [address] [address] [facility] [address], | mg/dL | SACRED | | | | [place] [address] | | HEART | | | |Performed by [facility] [address], [place] [address] | | MEDICAL | | | | [...] + + | GILBERTO NICHOLAS | [address] | [place] [address] | | | [facility] | | | | | LABORATORY [...] CE | | | ARTERIAL | by [facility] [address], | | SACRED | | | | [place] [address] | | HEART | | | |Performed by [facility] [address], [place] [address] | | MEDICAL | | | | [...] + | GILBERTO NICHOLAS | [address] | [place] [address] | | | [facility] | | | | | LABORATORY [...] | | | Venous | Performed by [facility] [address] | mmol/L | SACRED | | | | [address] [place] | | HEART | | | | [address] | | MEDICAL | | | | [...] SACRED | [address] | [place] | | | HEART [facility] | | | | [...] | [facility] | | | | by [facility] [address], | | SACRED | | | | [place] | | HEART | | | |Performed by [facility] [address], [place] | | MEDICAL | | | | [...] + + | GILBERTO NICHOLAS | [address] [place] | [place] [address] | | | [facility] | | | | | LABORATORY [...] [facility]ENCE | | | | Performed by [facility] [address] | | SACRED | | | | [address], [place] | | HEART | | | | [address] | | MEDICAL | | | | [...] [address] | [place] [address] | | | [facility] | [...] Seldinger technique, a 6 | | | Ivorian sheath was positioned into the right common femoral artery and | | | attached to a flush system. A 5 Ivorian Scott 2 catheter was | | | then positioned through a 6 Ivorian guiding catheter an utilized to | | [...] | Hemostasis was achieved with a 6 Ivorian Angio-Seal device. | | | Maximum sterile [...] | | standard Seldinger technique, a 6 Ivorian sheath was positioned into | | the right common femoral artery and attached to a flush system. | | | | A 5 Ivorian Scott 2 catheter was then positioned through a 6 Ivorian | | guiding catheter an utilized to [...] performed. Hemostasis was achieved with a 6 Ivorian | | Angio-Seal device. | | | [...] [facility] | | | | Performed by [facility] [address] | | SACRED | | | | [address] [place] | | HEART | | | | [address] | | MEDICAL | | | | [...] + + | GILBERTO NICHOLAS | [address] | [place] [address] | | | [facility] | | | | | LABORATORY [...] | | | Venous | Performed by [facility] [address] | mmol/L | SACRED | | | | [address], [place] | | HEART | | | | [address] | | MEDICAL | | | | [...] SACRED | [address] | [place] [address] | | | [facility] | [...] | | | Normalized | Performed by [facility] [address] | mg/dL | SACRED | | | | [address] [place] | | HEART | | | | [address] | | MEDICAL | | | | [...] + + | GILBERTO NICHOLAS | [address] | [place] [address] | | | [facility] | | | | | LABORATORY [...] | [facility] | | | | by [place] [address], | mmol/L | SACRED | | | | [place] [address] | | HEART | | | |Performed by [facility] [address], [place] [address] | | MEDICAL | | | | [...] + + | GILBERTO NICHOLAS | [address] | [place] [address] | | | [facility] | | | | | LABORATORY [...] GILBERTO | | | | Performed by [facility] [address] | | SACRED | | | | [address], [place] | | HEART | | | | [address] | | MEDICAL | | | | [...] SACRED | [address] | [place] [address] | | | [facility] | [...] PROVIDEN CE | | | | by [facility] [address], | | SACRED | | | | [place] [address] | | HEART | | | |Performed by [facility] [address], [place] [address] | | MEDICAL | | | | [...] + | GILBERTO NICHOLAS | [address] | [place] [address] | | | [facility] | | | | | LABORATORY [...] [facility]ENCE | | | | Performed by [facility] [address] | | SACRED | | | | [address] [place] | | HEART | | | | [address] | | MEDICAL | | | | [...] + + | GILBERTO NICHOLAS | [address] | [place] [address] | | | [facility] | | | | | LABORATORY [...] | | | REPORT | Performed by [facility] [address] | | YU | | | | [address], [place] | | HEART | | | | [address] | | MEDICAL | | | | [...] + + | GILBERTO NICHOLAS | [address] | [place] [address] | | | [facility] | | | | | LABORATORY [...] | | | REPORT | Performed by [facility] [address] | | SACRED | | | | [address] [place] | | HEART | | | | [address] | | MEDICAL | | | | [...] + | GILBERTO NICHOLAS | [address] | [place] [address] | | | [facility] | | | | | LABORATORY [...] Number [id number] Patient Number | | | [id number] Date of Study 08/18/2017 Visit | | | Number [id number] | | | Referring Physician BRI Sánchez Date of | | | 1955 Recruitment Director Julien Zamora Age | | | 62 year(s) Interpreting | | | [facility] | | | Financial Advisor | | | Mara Patton MD Gender | | | Female Nurse | | | Stress Vp Cardiovascular Procedure Type of Study TTE procedure: | [...] Atrium Left Ventricle EF | | | Qnhtnbxji47% | | | Electronically signed by Point2 Property ManagerMara kennedy MD(Interpreting physician) on | | | [...] | | | | | | EF Sxoxvpnyl58% | | | | | + + --+ + + | Procedure Note | + + | Avelino, Rad Results In - 08/18/2017 11:38 AM PDT Transthoracic Echocardiography Report | | (TTE) Demographics Patient Name JARED MONTAÑO I Room Number 258 Patient | | Number [id number] Date of Study 08/18/2017 Visit Number [id number] | | Referring Physician BRI Sánchez Date of | | 1955 Recruitment Director Julien Issa Age 62 year(s) | | Interpreting [facility] Financial Advisor | | Mara Patton MD Gender | | Female Nurse Stress TechnicianProcedureType of | | Study TTE procedure: ECHO Complete, Add-on Items, COLOR DOPPLER, COMPLETE | | DOPPLER.Procedure dateDate: 08/18/2017Start: 07:21 AMTechnical Quality: Adequate | | visualizationStudy Location: PortableIndications: [facility] 425.4/ I.9.Patient | | Status: RoutineHeight: 63 [...] Left Atrium Left Ventricle EF | | Bgxqvdtwv21% | |Conclusions | |Summary | |1. Small [...] Left Ventricle | | | | EF Zgkbfyqxf84% | + + + +---------+ + + [...] | | | Arterial | Performed by [facility] [address] | mmol/L | SACRED | | | | [address] [place] | | HEART | | | | [address] | | MEDICAL | | | | [...] + + | GILBERTO SACRJAD | [address] | [place] [address] | | | [facility] | | | | | LABORATORY [...] E | | | Normalized | by [place] [address] [address], | mg/dL | SACRED | | | | [place] [address] | | HEART | | | |Performed by [facility] [address], [place] [address] | | MEDICAL | | | | [...] + + | PROVIDEODILIAE SACR | [address] | [place] [address] | | | [facility] | | | | | LABORATORY [...] PROVIDEODILIAE | | | | Performed by [facility] [address] | | SACRED | | | | [address], [place] | | HEART | | | | [address] | | MEDICAL | | | | [...] + + | GILBERTO NICHOLAS | [address] | [place] [address] | | | [facility] | | | | | LABORATORY [...] CE | | | ARTERIAL | by [facility] [address], | | SACRED | | | | [place] [address] | | HEART | | | |Performed by [facility] [address], [place] [address] | | MEDICAL | | | | [...] SACRED | [address] | [place] [address] | | | [facility] | | | | | LABORATORY [...] PROVIDE NCE | | | | by [facility] [address], | | SACRED | | | | [place] [address] | | HEART | | | |Performed by [facility] [address], [place] [address] | | MEDICAL | | | | [...] + + | [facility] | [address] | [place] [address] | | | [facility] | | | | | LABORATORY [...] | | LABORATORY | | | | [facility] [address], | | CERNER | | | | [place] [address] | | | | + + + + + + + + | Specimen | + + | Blood specimen | | (specimen) | + + + + + + + | Performing | Address | City/State/Zipcode | Phone Number | | Organization | | | | + + + + + | ANALENO NICHOLAS | [address] | [place] [address] | | | [facility] | | | | | CELESTE [...] PROVIDE NCE | | | | by [facility] [address], | | SACRED | | | | [place] [address] | | HEART | | | |Performed by [facility] [address], [place] [address] | | MEDICAL | | | | [...] + | GILBERTO NICHOLAS | [address] | [place] [address] | | | [facility] | | | | | LABORATORY [...] YUNIOR CE | | | | by [facility] [address], | | SACRED | | | | [place] [address] | | HEART | | | |Performed by [facility] [address], [place] [address] | | MEDICAL | | | | [...] SACRED | [address] | [place] [address] | | | [facility] | | | | | LABORATORY [...] | | MEDICAL | | | | [facility] [address], | | CENTER | | | | [place] [id number] | | LABORATORY | | | | [...] + + | GILBERTO NICHOLAS | [address] | [place] [address] | | | [facility] | | | | | LABORATORY [...] | CHAVEZ E | | | | [facility] [address], | | SACRED | | | | [place] [address] | | HEART | | | |Performed by [facility] [address], [place] [address] | | MEDICAL | | | | [...] SACRED | [address] | [place] [address] | | | [facility] | | | | | LABORATORY [...] - 1.030 | [facility] | | | [place] | | | SACRED | | | [...] | | | SOURCE | Performed by [facility] [address] | | SACRED | | | | [address] [place] | | HEART | | | | [address] | | MEDICAL | | | | [...] + + | GILBERTO NICHOLAS | [address] | [place] [address] | | | [facility] | | | | | LABORATORY [...] PROVIDE NCE | | | | by [facility] [address], | | SACRED | | | | [place] [address] | | HEART | | | |Performed by [facility] [address], [place] [address] | | MEDICAL | | | | [...] + + | ANAODILIASneha YU | [address] | [place] [address] | | | [facility] | | | | | LABORATORY [...] [facility]ENCE | | | Source | by [facility] [address] [facility] [address], | | SACRED | | | | [place] [address] | | HEART | | | |Performed by [facility] [address], [place] [address] | | MEDICAL | | | | [...] + + | GILBERTO NICHOLAS | [address] | [place] [address] | | | [facility] | | | | | LABORATORY [...] and a short | | | 5 Ivorian vascular sheath was placed. A 5 Ivorian Scott 1 catheter | | | was [...] performed and a short | | 5 Ivorian vascular sheath was placed. A 5 Ivorian Scott 1 catheter | | was formed [...] | | | | | seconds.Performed by [facility] | | | | | | [address], | | | | | | [place] [address] | | | | + + + + + + + + | Specimen | + + | Blood specimen | | (specimen) | + + + + + + + | Performing | Address | City/State/Zipcode | Phone Number | | Organization | | | | + + + + + | GILBERTO NICHOLAS | [address] | [place] [address] | | | [facility] | | | | | LABORATORY [...] | | | Normalized | Performed by [facility] [address] | mg/dL | SACRED | | | | [address] [place] | | HEART | | | | [address] | | MEDICAL | | | | [...] + + | ANAODILIASneha YU | [address] | [place] [address] | | | [facility] | | | | | LABORATORY [...] | [facility] | | | | by [facility] [address], | mmol/L | SACRED | | | | [place] [address] | | HEART | | | |Performed by [facility] [address], [place] [address] | | MEDICAL | | | | [...] + + | GILBERTO NICHOLAS | [address] | [place] [address] | | | [facility] | | | | | LABORATORY [...] | [facility] | | | | by [facility] [address], | mmol/L | SACRED | | | | [place] | | HEART | | | |Performed by [facility] [address], [place] | | MEDICAL | | | [...] + + | [facility] | [address] | [place] | | | [facility] [...] [facility] | | | | Performed by [facility] [address] | | SACRED | | | | [address] [place], [place] | | HEART | | | | [address] | | MEDICAL | | | | [...] + + | GILBERTO NICHOLAS | [address] | [place] [address] | | | [facility] | | | | | LABORATORY [...] CE | | | ARTERIAL | by [facility] [address], | | SACRED | | | | [place] [address] | | HEART | | | |Performed by [facility] [address], [place] [address] | | MEDICAL | | | | [...] + + | GILBERTO NICHOLAS | [address] | [place] [address] | | | HEART [facility] | | | | [...] PROVIDE NCE | | | | by [facility] [address], | | SACRED | | | | [place] [address] | | HEART | | | |Performed by [facility] [address], [place] [address] | | MEDICAL | | | | [...] + | GILBERTO NICHOLAS | [address] [facility] [address] [address] | [place] [address] | | | [facility] | | | | | LABORATORY [...] | | | | | | LAB [place] | | | | | | [facility] | | | | | | [facility] | | | | | | [facility] | | | | | | [facility] | | + + + + + + | Rh Type | Positive | | REFERENCE | | | | | | LAB [place] | | | | | | [facility] | | | | | | [facility] | | | | | | [facility] | | | | | | [facility] | | + + + + + + + + | Specimen | + + | | + + + + + | Narrative | Performed At | + + + | Specimen Expiration Date: [id number] | [facility] | | | [facility] [facility] | | | [facility] | | | [facility] | + + + + + + + + | Performing | Address | City/State/Zipcode | Phone Number | | Organization | | | | + + + + + | REFERENCE [facility] | [address] | [place] [address] | [phone] | | [facility] [place] [facility] | | | | | [facility] [...] PROVIDEN CE | | | | by [facility] [address], | | SACRED | | | | [place] [address] | | HEART | | | |Performed by [facility] [address], [place] [address] | | MEDICAL | | | | [...] SACRED | [address] | [place] [address] | | | [facility] | | | | | LABORATORY [...] | | MEDICAL | | | | [facility] [address], | | CENTER | | | | [place] [address] | | LABORATORY | | | | [...] + + | ANAODILIASneha DANYJAD | [address] | [place] [address] | | | [facility] | | | | | LABORATORY [...] ENCE | | | Basophils | by [facility] [address], | K/uL | SACRED | | | | [place] [address] | | HEART | | | |Performed by [facility] [address], [place] [address] | | MEDICA L | | | [...] + + | ANAODILIASneha SAENZJAD | [address] | [place] [address] | | | [facility] | | | | | LABORATORY [...] | | | | | | LAB [place] | | | | | | [facility] | | | | | | [facility] | | | | | | [facility] | | | | | | CENTER | | + + + + + + | Rh Type | PositiveComment: Patient | | REFERENCE | | | | is remote crossmatch | | LAB [place] | | | | eligible | | [facility] | | | | | | [facility] | | | | | | [facility] | | | | | | CENTER | | + + + + + + | Antibody | Negative | | REFERENCE | | | Screen | | | LAB [place] | | | | | | [facility] [...] + + + | Specimen Expiration Date: [id number] | [facility] LAB | | | [facility] [place] [facility] | | | [facility] | | | [facility] | + + + + + + + + | Performing | Address | City/State/Zipcode | Phone Number | | Organization | | | | + + + + + | REFER[facility] | [address] | [place] [address] | [phone] | | [facility] [place] [facility] | | | | | [facility] [...] | | | | | | Starting [facility] 08/18/17 at 0508 | | | | [...] | | | | < 4.75, Starting [facility] 08/18/17 at | | | | | [...]
--- OUTSIDE RECORDS SUMMARY | ~2019-01-22 | XMS | Encounter Summary ---
Demographics + + + | Address | [address] | | | [place] [address] | + + + | Home Phone | | + + + | Preferred Language | Unknown | + + + | Marital Status | | + + + | Uatsdin Affiliation | 1028 | + + + | Race | Unknown | + + + | Ethnic Group | Unknown | + + + Author + + + | Author | [facility] | | | and [place] | + + + | Organization | [facility] | | | and [place] | + + + | Address | Unknown | + + + | Phone | Unavailable | + + + Support + + + + + | Name | Relationship | Address | Phone | + + + + + | Joseluis Desai | ECON | [place] | | | | | [address] | | + + + + + | Mila Desai | ECON | Unknown | | + + + + + Care Team Providers + +------+ + | Care Data Visualization Developer Name | Role | Phone | + [...] Forrest SMITH | | | | | [phone] | [place] [address] | | +--------+ + + + + [...] [place] | | | | | | [address] | | | | | | | [...]
--- OUTSIDE RECORDS SUMMARY | ~2019-01-22 | XMS | Encounter Summary ---
Demographics + + + | Address | [address] | | | [place] [address] | + + + | Home Phone | | + + + | Preferred Language | Unknown | + + + | Marital Status | | + + + | Evangelical Affiliation | 1028 | + + + | Race | Unknown | + + + | Ethnic Group | Unknown | + + + Author + + + | Author | [facility] | | | and [place] | + + + | Organization | [facility] | | | and [place] | + + + | Address | Unknown | + + + | Phone | Unavailable | + + + Support + + + + + | Name | Relationship | Address | Phone | + + + + + | Joseluis Desai | ECON | [place] | | | | | [address] | | + + + + + | Mila Desai | ECON | Unknown | | + + + + + Care Team Providers + +------+ + | Care Resizer Operator Name | Role | Phone | [...] + + | 08/24/ | Telephone | [facility] | Riky Rodriguez | Hospital Follow-up | | 2018 | | Internal Medicine | MD Jaroch[address] | | | | Hospitalists [address] | | | | | [address] [place], [place] | [place] [address] | | | | | [address] | [phone] | | | | | [phone] | | | +--------+ + + + [...] [place] | | | | | | [address] | | | | | | | | +--------+---------+ + + + documented as of this encounter Visit Diagnoses Not on filedocumented in this encounter"
--- OUTSIDE RECORDS SUMMARY | ~2019-01-22 | XMS | Encounter Summary ---
Demographics + + + | Address | [address] | | | [place] [address] | + + + | Home Phone | | + + + | Preferred Language | Unknown | + + + | Marital Status | | + + + | Hoahaoism Affiliation | 1028 | + + + [...] | [place] | | | | | [address] | | + + + + + | Mila Desai | ECON | Unknown | | + + + + + Care Team Providers + +------+ + | Care Community Relations Representative Name | Role | Phone | [...] + + | 05/12/ | Telephone | [facility] | Dewey Harris, | Hospital Follow-up | | 2018 | | [facility] | PharmD NEED ADDRESS | | | | | [address] | UPDATED | | | | | [place] [address] | | | | | | [phone] | | | +--------+ + + + [...] [place] | | | | | | [address] | | | | | | | | +--------+---------+ + + + documented as of this encounter Visit Diagnoses Not on filedocumented in this encounter"
--- OUTSIDE RECORDS SUMMARY | ~2019-01-22 | XMS | Encounter Summary ---
Demographics + + + | Address | [address] | | | [place] [address] | + + + | Home Phone | | + + + | Preferred Language | Unknown | + + + | Marital Status | | + + + | Druze Affiliation | 1028 | + + + | Race | Unknown | + + + | Ethnic Group | Unknown | + + + Author + + + | Author | [facility] | | | and [place] | + + + | Organization | [facility] | | | and [place] | + + + | Address | Unknown | + + + | Phone | Unavailable | + + + Support + + + + + | Name | Relationship | Address | Phone | + + + + + | Joseluis Desai | ECON | [place] | | | | | [address] | | + + + + + | Mila Desai | ECON | Unknown | | + + + + + Care Team Providers + +------+ + | Care Nurse Clinical Name | Role | Phone | + [...] | | Pulmonology | severe (HCC) | [address] | [address] | | | | | Procedures | Onel Landa | [place], | | | | | F/U APPT | [place] [address] | [place] [address] | | | | | DR LEVY | [place], | Phone: | | | | | [place] | [place] | [phone] | | | | | 12/30/17 | [address] | Fax: | | | | | | Phone: | [phone] | | | | | | [phone] | | | | | | | Fax: | | | | | | | [phone] | | +--------+--------+ + + + + Encounter Details +--------+---------+ + + + | Date | Type | Department | Care Team | Description | +--------+---------+ + + + | 12/30/ | Office | [facility] | Tyree Joyce, | COPD, moderate (HCC) | | 2018 | Visit | PULMONARY [address] | MD [address] | (Primary Dx); Need | | | | [place], | [place] | for pneumococcal | | | | [place] [address] | [address] | vaccine | | | | [phone] | | | +--------+---------+ + + + [...] Instructions Patient Instructions Tyree Joyce MD - 12/30/2017 2:00 PM PDT Formoterol; Mometasone metered dose inhaler Brand Name: Halie What is this medicine? FORMOTEROL; MOMETASONE (for CHANDLER [place] julio MET a sone) inhalation is a combination [...] information carefully each time. Talk to your sheet roller operator regarding the use of this medicine in children. Special care may be needed. What side effects may I notice from receiving this medicine? Side effects that you should report to your doctor or health manager critical care unit as soon as p ossible: allergic reactions [...] attention (report to your doctor or health manager critical care unit if they continue or are bothersome): changes [...] check ups. Tell your doctor or health manager critical care unit if yo ur symptoms do not get [...] a 62 y.o. female patient of Bry Vaughn, DO here today for follow u p of Gold Stage II COPD. The last pulmonary clinic visit was on 12/12/17. Since their last appointment they feel like their breathing issues have been decreasing significantly. Specifically at the time the sudha steele's last clinic appointment Breo was initiated. 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 Amy burgess noted marked improvement of her exertional tolerance [...] | | | | | [place] | | | | | | [id number] | | | | | | | [...]
--- OUTSIDE RECORDS SUMMARY | ~2019-01-22 | XMS | Encounter Summary ---
Demographics + + + | Address | [address] | | | [place] [address] | + + + | Home Phone | | + + + | Preferred Language | Unknown | + + + | Marital Status | | + + + | Catholic Affiliation | 1028 | + + + [...] | [place] | | | | | [address] | | + + + + + | Mila Desai | ECON | Unknown | | + + + + + Care Team Providers + +------+ + | Care Senior Mechanical Development Engineer Name | Role | Phone | + +------+ + | Bry Vaughn DO | PCP | | + +------+ + Reason for Visit + + + | Reason | Comments | + + + | Medication Prior | | | Authorization | | + + + Encounter Details +--------+ + + + + | Date | Type | Department | Care Team | Description | +--------+ + + + + | 12/30/ | Telephone | [facility] | Tyree Joyce, | Medication Prior | | 2017 | | PULMONARY [address] | MD [address] | Authorization | | | | [place], | [place] | | | | | [place] [address] | [address] | | | | | [phone] | | | +--------+ + + + [...] [place] | | | | | | [address] | | | | | | | | +--------+---------+ + + + documented as of this encounter Visit Diagnoses Not on filedocumented in this encounter"
--- OUTSIDE RECORDS SUMMARY | ~2019-01-22 | XMS | Encounter Summary ---
Demographics + + + | Address | [address] | | | [place] [address] | + + + | Home Phone | | + + + | Preferred Language | Unknown | + + + | Marital Status | | + + + | Roman Catholic Affiliation | 1028 | + + [...] | [place] | | | | | [address] | | + + + + + | Mila Desai | ECON | Unknown | | + + + + + Care Team Providers + +------+ + | Care Tool Room Attendant Name | Role | Phone | + [...] Forrest SMITH | | | | | [phone] | [place] [address] | | +--------+ + + + + [...] | | | | | [place] | | | | | | [address] | | | | | | | [...]
--- OUTSIDE RECORDS SUMMARY | ~2019-01-22 | XMS | Encounter Summary ---
Demographics + + + | Address | [address] | | | [place] [address] | + + + | Home Phone | | + + + | Preferred Language | Unknown | + + + | Marital Status | | + + + | Protestant Affiliation | 1028 | + + + | Race | Unknown | + + + | Ethnic Group | Unknown | + + + Author + + + | Author | [facility] | | | and [place] | + + + | Organization | [facility] | | | and [place] | + + + | Address | Unknown | + + + | Phone | Unavailable | + + + Support + + + + + | Name | Relationship | Address | Phone | + + + + + | Joseluis Desai | ECON | [place] | | | | | [address] | | + + + + + | Mila Desai | ECON | Unknown | | + + + + + Care Team Providers + +------+ + | Care Transformation Consultant Name | Role | Phone | + +------+ + | Bry Vaughn DO | PCP | | + +------+ + Encounter Details +--------+ + + + + | Date | Type | Department | Care Team | Description | +--------+ + + + + | 12/30/ | Hospital | [facility] | Tyree Joyce, | COPD, severe (HCC) | | 2018 | Encounter | MED CTR PULMONARY | MD [address] | | | | | [address] | [place], [place] | | | | | [place], | [address] | | | | | [place] [address] | | | | | | [phone] | | | +--------+ + + + [...] | | | | | [place] [facility] [place] | | | | | | [address] | | | | | | | [...] | | | MD [place] 12/30/2017 14:22[facility] | | | | | |IMPRESSION: Spirometry [...] 12/30/2017 | | |14:22 | | |[facility] | | + + + documented in [...]
--- OUTSIDE RECORDS SUMMARY | ~2019-01-22 | XMS | Encounter Summary ---
Demographics + + + | Address | [address] | | | [place] [address] | + + + | Home Phone [...] | [place] | | | | | [address] | | + + + + + | Mila Desai | ECON | Unknown | | + + + + + Care Team Providers + +------+ + | Care Ground [address] Name | Role | Phone | + [...] [address] | | | | | [place], | [place], [place] | | | | | [place] [address] | [address] | | | | | [phone] | | | +--------+--------+ + + + [...] [place] | | | | | | [address] | | | | | | | | +--------+---------+ + + + documented as of this encounter Visit Diagnoses Not on filedocumented in this encounter"
--- OUTSIDE RECORDS SUMMARY | ~2019-01-22 | XMS | Encounter Summary ---
Demographics + + + | Address | [address] | | | [place] [address] | + + + | Home Phone [...] | [place] | | | | | [address] | | + + + + + | Mila Desai | ECON | Unknown | | + + + + + Care Team Providers + +------+ + | Care Contract Administration Manager Name | Role | Phone | [...] [address] | | | | | [place], | [place], [place] | | | | | [place] [address] | [address] | | | | | [phone] | | | +--------+--------+ + + + [...] [place] | | | | | | [address] | | | | | | | | +--------+---------+ + + + documented as of this encounter Visit Diagnoses Not on filedocumented in this encounter"
--- OUTSIDE RECORDS SUMMARY | ~2019-01-22 | XMS | Encounter Summary ---
Demographics + + + | Address | [address] | | | [place] [address] | + + + | Home Phone [...] | Author | [facility] | | | and [place] | + + + | Organization | [facility] | | | and [place] | + + + | Address | Unknown | + + + | Phone | Unavailable | + + + Support + + + + + | Name | Relationship | Address | Phone | + + + + + | Joseluis Desai | ECON | [place] | | | | | [address] | | + + + + + | Mila Desai | ECON | Unknown | | + + + + + Care Team Providers + +------+ + | Care Digester Cook Name | Role | Phone | + [...] Forrest SMITH | | | | | [phone] | [place] [address] | | +--------+ + + + + [...] [place] | | | | | | [address] | | | | | | | [...]
--- OUTSIDE RECORDS SUMMARY | ~2019-01-22 | XMS | Encounter Summary ---
Demographics + + + | Address | [address] | | | [place] [address] | + + + | Home Phone | | + + + | Preferred Language | Unknown | + + + | Marital Status | | + + + | Congregational Affiliation | 1028 | + + + [...] | [place] | | | | | [address] | | + + + + + | Mila eDsai | ECON | Unknown | | + + + + + Care Team Providers + +------+ + | Care Policy Manager Name | Role | Phone | [...] Forrest SMITH | | | | | [phone] | [place] [address] | | +--------+ + + + + [...] [place] | | | | | | [address] | | | | | | | [...]
--- OUTSIDE RECORDS SUMMARY | ~2019-01-22 | XMS | Encounter Summary ---
Demographics + + + | Address | [address] | | | [place] [address] | + + + | Home Phone | | + + + | Preferred Language | Unknown | + + + | Marital Status | | + + + | Anabaptist Affiliation | 1028 | + + + [...] | [place] | | | | | [address] | | + + + + + | Mila Desai | ECON | Unknown | | + + + + + Care Team Providers + +------+ + | Care Motor Vehicle Or Caravan Salesperson Name | Role | Phone | + [...] + | 08/31/ | Telephone | [facility] | Shaji Wilson | Other | | 2018 | | SURGERY [address] | MD Al[place], [facility] [address] | | | | | [address] [place], [place] | [facility] | | | | | [address] | [place] [address] | | | | | [phone] | [phone] | | | | | | | [...] [place] | | | | | | [address] | | | | | | | | +--------+---------+ + + + documented as of this encounter Visit Diagnoses Not on filedocumented in this encounter"
--- OUTSIDE RECORDS SUMMARY | ~2019-01-22 | XMS | Encounter Summary ---
Demographics + + + | Address | [address] | | | [place] [address] | + + + | Home Phone | | + + + | Preferred Language | Unknown | + + + | Marital Status | | + + + | Lutheran Affiliation | 1028 | + + + | Race | Unknown | + + + | Ethnic Group | Unknown | + + + Author + + + | Author | [facility] | | | and [place] | + + + | Organization | [facility] | | | and [place] | + + + | Address | Unknown | + + + | Phone | Unavailable | + + + Support + + + + + | Name | Relationship | Address | Phone | + + + + + | Joseluis Desai | ECON | [place] | | | | | [address] | | + + + + + | Mila Desai | ECON | Unknown | | + + + + + Care Team Providers + +------+ + | Care Supervisor Riveting Name | Role | Phone | + [...] | | | | COPD type | [address] | | | | | | ([facility]) Acute | Phone: | | | | | | on chronic | [phone] | | | | | | respiratory | Fax: | | | | | | failure with | [phone] | | | | | | hypoxia [...] | | | | | | | clinical laboratory technician | | | | | [...] + + | 05/08/ | Hospital | [facility] | Orlando Wall MD | Chronic obstructive | | 2018 - | Encounter | MED CTR ICU [address] | pulmonary disease, | | | | [place], | [place], [place] | unspecified COPD | | 05/11/ | | [place] [address] | [address] | type (HCC); Acute on | | 2017 | | [phone] | | chronic respiratory | | | | | Marcio Boone, | failure with | | | | | MD Narcisa [address] | hypoxia and | | | | | [address] [place] | hypercapnia ([facility]); | | | | | [place] [address] | NSTEMI (non-ST | | | | | [phone] | elevated myocardial | | | | | | infarction) ([facility]); | | | | | | Non-ST elevation | | | | | | myocardial | | | | | | infarction (NSTEMI), | | | | | | type 2 ([facility]) | +--------+ + + + [...] might be differ ent from the original. [facility] [place] HOSPITALIST DISCHARGE SUMMARY Pt. Name/Age/: Amy Coleman [...] on discharge day PROCEDURES AND CONSULTS: Procedures [facility] CORONARY ANGIOGRAPHY [place]: Right LEFT MAIN [...] Specialty: Internal Medicine Contact information: [address] [facility] [address] [place] [address] Demarcus Jurado MD In 3 weeks. Specialty: Gastroenterology Contact information: [address], [address] [place] [id number] Condition: Patient being discharged with condition improved Diet: low salt low fat Greater than 30 minutes were spent on discharge and coordination of post-hospital care. Electronically signed by: Narcisa Boone MD, 05/11/2017 7:41 [facility] Portions of this chart may have been created with Lomography voice recognition software. Occasi onal wrong-word or [...] worse Dizziness or weakness Date Last Reviewed: 11/13/201519997093-3133 [employer]. [address] [place] [address]. All righ ts reserved. This information is not intended as a substitute for professional medical care. Always follow your healthcare professional's instructions. AttachmentsThe following attachments cannot be sent through Care Everywhere.Kicking the Smo miguel Habit ([place]orese)Coronary Artery Disease (CAD), Understanding ([place]orese)documented in this encounter Medications at Time of [...] Dewey Harris PharmD 05/11/2017 12:05 Dominique Carrasco, CARPENTER MOLD - 05/11/2017 10:38 AM PSTFormatting of this note might be different from the lois ginal. Amy walked with me around the the nurse station [place] without any supplemental oxygen, h er SpO2 [...] Bojorquez MD - 05/10/2017 7:23 AM PST [place], [place] HOSPITALIST PROGRESS NOTE Patient: Amy Coleman : 1955: Age: 61 y.o. MedRec: [id number] Admission date: 05/08/2017 Hospital day # : [...] leads V4-6 Confirmed by GEORGES HU, LUCIO ([id number]) on 05/10/2017 7:08:38 AM POC Glucose Collection [...] Procedure Component Value Units Date/Time Culture, Blood [[id number]] (Normal) Collected: 05/08/17 0145 Order Status: Completed Lab Status: Preliminary result Updated: 05/08/17 140 Specimen: Blood from Line Culture No growth: Monitored continually by instrument for 5 days Culture, Blood [[id number]] (Normal) Collected: 05/08/17 0119 Order Status: Completed Lab Status: Preliminary result Updated: 05/08/17 140 Specimen: Blood from Peripheral Blood Culture No growth: Monitored continually by instrument for 5 days Culture, MRSA [[id number]] Collected: 05/08/17 0032 Order Status: Completed Lab [...] 24-48 hrs Narcisa Boone MD 05/10/2017 7:23 [facility] Portions of this chart may have been created with Lomography voice recognition software. Occasi onal wrong-word or [...] ECGs available Confirmed by LUCIO SU MD ([id number]) on 05/08/2017 8:24:47 AM LVEF-TTE TRANSTHORACIC ECHO [...] lead V2 Confirmed by LUCIO SU MD ([id number]) on 05/09/2017 7:21:00 AM MG 05/08/2017 2.3 [...] Bojorquez MD - 05/09/2017 7:18 AM PST [facility] [place] HOSPITALIST PROGRESS NOTE Patient: Amy Coleman : 1955: Age: 61 y.o. MedRec: [id number] Admission date: 05/08/2017 Hospital day # : [...] 1616 sodium chloride 0.9% (NS) infusion Intravenous Real Estate Legal Assistant Johnny Luther MD sodium chloride 0.9% (NS) [...] Procedure Component Value Units Date/Time Culture, Blood [[id number]] (Normal) Collected: 05/08/17 0145 Order Status: Completed Lab Status: Preliminary result Updated: 05/08/171400 Specimen: Blood from Line Culture No growth: Monitored continually by instrument for 5 days Culture, Blood [[id number]] (Normal) Collected: 05/08/17 0119 Order Status: Completed Lab Status: Preliminary result Updated: 05/08/171400 Specimen: Blood from Peripheral Blood Culture No growth: Monitored continually by instrument for 5 days Culture, MRSA [[id number]] Collected: 05/08/1731 Order Status: Sent Lab Status: [...] reports feeling malaise with shortness of breath (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 Occasi onal wrong-word or [...] bottles X Pharmacy list names: [facility] [place] X Outside Information Vaccines up to date? [...] per week Marijuana smoke Daily Best possible RAYON CONER medication list after pharmacy review: PT REPORTED [...] performed and electronically signed by Yolanda Grullon, Coal Chemist 15:16 Reviewed by Светлана Mendoza, PharmRob 05/08/2017 15:28 Lavinia Peacock Chaplain - 05/08/2017 8:26 AM [facility] Spiritual Care Amy Coleman is a 61 y.o. female who is admitted for Respiratory failure (HCC) [J96.90]. Spiritual Assessment: Patient was intubated at the time of visit. Cxapurxo-og-dkk, Raciel, was present and she reported that she is very close to the patient. She and the patient has discussed EOL toget her in the Eiuykdmf-qi-utk is hoping for recovery for patient. Spiritual [...] can't relax until she knows h er zckswt-ep-bok will be okay. Will see the patient as requested. If there are any other spiritual care issues that arise, please contact director of undergraduate admissions. Narcisa Bojorquez MD - 05/08/2017 7:21 AM PSTFormatting of this note might be different from the lois edgar. [facility] [place] HOSPITALIST PROGRESS NOTE Patient: Amy Coleman : 1955: Age: 61 y.o. MedRec: [id number] Admission date: 05/08/2017 Hospital day # : [...] Procedure Component Value Units Date/Time Culture, Blood [[id number]] Collected: 05/08/17 0145 Order Status: Sent Lab Status: In process Updated: 05/08/17152 Specimen: Blood from Line Culture, Blood [[id number]] Collected: 05/08/17118 Order Status: Sent Lab Status: In process Updated: 05/08/17152 Specimen: Blood from Peripheral Blood Culture, MRSA [[id number]] Collected: 05/08/1731 Order Status: Sent Lab Status: [...] respiratory arrest, never lost pulse. Transferred from [facility]. Family member at bedside reported patient [...] listed conditions Narcisa Boone MD 05/08/2017 7:21 [facility] Portions of this chart may have been created with Lomography voice recognition software. Occasi onal wrong-word or [...] [place] | | | | | | [address] | | | | | | | [...] + + | ECG 12 LEAD | AYLAA | 05/08/2017 | | Results for this [...] ST. | [address] | [place], [place] | [phone] | | [facility] | | [address] | | | - LABORATORY | | [...] mL/min/1.73m2 | [facility] | | | [place] | RATE,ESTIMATED | | MEDICAL | | | | mL/min/1.47l5Refq than | | CENTER - | | [...] [address] | [place] | [phone] | | [facility] | | [address] | | | - LABORATORY | | [...] + | [facility] | [address] | [place] | [phone] | | [facility] | | [address] | | | - LABORATORY | | [...] + | [facility] | [address] | [place] | [phone] | | [facility] | | [address] | | | - LABORATORY | | [...] [address] | [place] | [phone] | | [facility] | | [address] | | | - LABORATORY | | [...] [address] | [place] | [phone] | | [facility] | | [address] | | | - LABORATORY | | [...] [address] | [place] | [phone] | | [facility] | | [address] | | | - LABORATORY | | [...] + | [facility] | [address] | [place] | [phone] | | [facility] | | [address] | | | - LABORATORY | | [...] mL/min/1.73m2 | [facility] | | | [place] | RATE,ESTIMATED | | MEDICAL | | | | mL/min/1.60j2Nwhb than | | CENTER - | | [...] [address] | [place] | [phone] | | [facility] | | [address] | | | - LABORATORY | | [...] + + | Performing | Address | City/State/[facility] | Phone Number | | Organization | | | | + + + + + | [facility] | [address] | [place] | [phone] | | [facility] | | [address] | | | - LABORATORY | | [...] + | [facility] | [address] | [place] | [phone] | | [facility] | | [address] | | | - LABORATORY | | [...] ST. | [address] | [place], [place] | [phone] | | [facility] | | [address] | | | - LABORATORY | | [...] of | | | procedure done: Yes WATER SERVER: Johnny Johnson M.D., FMisty | | | PRIMARY PHYSICIAN: Bry Vaughn, PROCEDURES PERFORMED: | | | Left heart catheterization, selective coronary arteriography | | | INDICATIONS : 61-year-old woman admitted with acute respiratory | | | failure, elevated troponin ARTERIAL ACCESS: Right radial artery 6 | | | Jamaican CLOSURE DEVICE:. TR band DESCRIPTION OF PROCEDURE: [...] | | | technique and a 6 Jamaican sheath was inserted. 3 mg per mL and 300 | | | g of nitroglycerin were administered through the side port of the | | | radial artery sheath. 4000 units of intravenous heparin was | | | administered. Selective coronary arteriography was performed using | | | a 5 Jamaican Ole catheter. The 5 Jamaican Ole catheter was | | | advanced [...] Johnny Johnson M.D., F.A.C.C. | | | Archives Technician [facility] [place] | | | [place] [...] + | [facility] | [address] | [place] | [phone] | | [facility] | | [address] | | | - LABORATORY | | [...] | | | | | LUCIO HU ([id number]) on | | | | | | [...] + | [facility] | [address] | [place] | [phone] | | [facility] | | [address] | | | - LABORATORY | | [...] [address] | [place] | [phone] | | [facility] | | [address] | | | - LABORATORY | | [...] [address] | [place] | [phone] | | [facility] | | [address] | | | - LABORATORY | | [...] [address] | [place] | [phone] | | [facility] | | [address] | | | - LABORATORY | | [...] [address] | [place] | [phone] | | [facility] | | [address] | | | - LABORATORY | | [...] 0.53 (L) | 0.60 - 1.30 | [facility] | [...] mL/min/1.73m2 | [facility] | | | [place] | RATE,ESTIMATED | | MEDICAL | | | | mL/min/1.72r1Myvx than | | CENTER - | | [...] [address] | [place] | [phone] | | [facility] | | [address] | | | - LABORATORY | | [...] [address] | [place] | [phone] | | [facility] | | [address] | | | - LABORATORY | | [...] | | | | | | [employer] | | | | | [...] + | [facility] | [address] | [place] | [phone] | | [facility] | | [address] | | | - LABORATORY | | [...] [address] | [place] | [phone] | | [facility] | | [address] | | | - LABORATORY | | [...] [address] | [place] | [phone] | | [facility] | | [address] | | | - LABORATORY | | [...] | | | | | results. [employer] | | | | | | [employer] [...] [address] | [place] | [phone] | | [facility] | | [address] | | | - [...] + | [facility] | [address] | [place] | [phone] | | [facility] | | [address] | | | - LABORATORY | | [...] + | [facility] | [address] | [place], [place] | [phone] | | [facility] | | [address] | | | - LABORATORY | | [...] [facility] | | | | | | [facility] | | | | | | MEDICAL | | | | | | CENTER - | | | | | | LABORATORY | | + +--------+ + + + + + | Specimen | + + | | + + + + + + + | Performing | Address | City/State/[facility] | Phone Number | | Organization | | | | + + + + + | [facility] | [address] | [place] | [phone] | | [facility] | | [address] | | | - LABORATORY | | [...] lead | | | | | | A1Kfrqepwfd by GEORGES | | | | | | LUCIO HU ([id number]) on | | | | | | [...] [address] | [place] | [phone] | | [facility] | | [address] | | | - LABORATORY | | [...] + | [facility] | [address] | [place] | [phone] | | [facility] | | [address] | | | - LABORATORY | | [...] [address] | [place] | [phone] | | [facility] | | [address] | | | - LABORATORY | | [...] | [address] | [place] | [phone] | | [facility] | | [address] | | | - LABORATORY | | [...] | | | | | | [employer] | | | | | [...] + + | Performing | Address | City/State/[facility] | Phone Number | | Organization | | | | + + + + + | [facility] | [address] | [place] | [phone] | | [facility] | | [address] | | | - LABORATORY | | [...] [address] | [place] | [phone] | | [facility] | | [address] | | | - LABORATORY | | [...] [address] | [place] | [phone] | | [facility] | | [address] | | | - LABORATORY | | [...] 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 Treatment Plant Attendant [facility] | | | Age 61 year(s) Interpreting | | | JOHNNY JOHNSON MD, | | | Automobile Washer Steam [facility] Gender Female | | | Nurse Stress Pilot Boat Captain | | | Procedure Type of Study [...] by JOHNNY JOHNSON MD, | | | [facility](Interpreting physician) on 05/08/2017 04:56 | | | [...] Volume: 38.51 ml | | | EF Qpmmmyrie39% Left | | | Ventricle Diastolic Dimension: [...] | Electronically signed by JOHNNY JOHNSON MD, [facility](Interpreting | | | physician) on 05/08/2017 04:56 [...] Volume: 38.51 ml | | | EF Kgbkqixrz14% | | | | | | Left [...] Number 449 | | I Patient Number [id number] Date of Study 05/08/2017 Visit Number | | [id number] Referring Physician NICOLE TSANG Number | | Date of 1955 Wastewater Treatment Plant Attendant GIA [facility] Age | | 61 year(s) Interpreting JOHNNY JOHNSON MD, | | Automobile Washer Steam [facility] Gender Female Nurse | | Stress TechnicianProcedureType [...] [place] | | Volume: 38.51 ml EF Flpzaewic24% Left | | Ventricle Diastolic Dimension: 4.9 [...] | Electronically signed by JOHNNY JOHNSON MD, [facility](Interpreting | | physician) on 05/08/2017 [...] [place] Volume: 38.51 ml | | EF Ftdapqlsm60% | | | | Left Ventricle | [...] [address] | [place] | [phone] | | [facility] | | [address] | | | - LABORATORY | | [...] | | | | | | [employer] | | | | | [...] [address] | [place] | [phone] | | [facility] | | [address] | | | - LABORATORY | | [...] [address] | [place] | [phone] | | [facility] | | [address] | | | - LABORATORY | | [...] + | [facility] | [address] | [place] | [phone] | | [facility] | | [address] | | | - LABORATORY | | [...] | | | FILTRATION | mL/min/1.73m2 | [facility] | | | [place] | RATE,ESTIMATED | | MEDICAL | | | | mL/min/1.55i1Ypmv than | | CENTER - | | [...] | | | | | mg/dL | [facility] | | | | | | MEDICAL | | | | | | CENTER - | | | | | | LABORATORY | | + + + + + + | BUN/Creatin | 7.2 | | [facility] | | | ine Ratio | | | [facility] [...] [address] | [place] | [phone] | | [facility] | | [address] | | | - LABORATORY | | [...] + | [facility] | [address] | [place] | [phone] | | [facility] | | [address] | | | - LABORATORY | | [...] | | | | LUCIO SU MD ([id number]) | | | | | | on [...] + | [facility] | [address] | [place] | [phone] | | [facility] | | [address] | | | - LABORATORY | | [...] ST. | [address] | [place] | [phone] | | [facility] | | [address] | | | - LABORATORY | | [...] | | | | | | [employer] | | | | | [...] [address] | [place] | [phone] | | [facility] | | [address] | | | - LABORATORY | | [...] + | [facility] | [address] | [place] | [phone] | | [facility] | | [address] | | | - LABORATORY | | [...] ST. | [address] | [place] | [phone] | | [facility] | | [address] | | | - LABORATORY | | [...] [address] | [place] | [phone] | | [facility] | | [address] | | | - LABORATORY | | [...] [address] | [place] | [phone] | | [facility] | | [address] | | | - LABORATORY | | [...] Chronic obstructive pulmonary disease, unspecified COPD type ([facility]) | + + | Acute on chronic respiratory failure with hypoxia and hypercapnia ([facility]) | + + | NSTEMI (non-ST elevated myocardial infarction) ([facility]) Acute myocardial infarction, | | subendocardial infarction, episode of care unspecified | + + | Non-ST elevation myocardial infarction (NSTEMI), type 2 | + + | Respiratory failure with hypoxia and hypercapnia ([facility]) | + + documented in this encounter [...] | | | | | | | [id number] Use NIGHT DOSE for | | | | | | | doses scheduled: HS, 3AM, | | | | | | | Nighttime 5026-6369, | | | | | | + [...] | | | | | from order #[[id number]], | | | | | | + [...]
--- OUTSIDE RECORDS SUMMARY | ~2019-01-22 | XMS | Encounter Summary ---
Demographics + + + | Address | [address] | | | [place] [address] | + + + | Home Phone [...] + + | Author | [facility] | | | and [place] | + + + | Organization | [facility] | | | and [place] | + + + | Address | Unknown | + + + | Phone | Unavailable | + + + Support + + + + + | Name | Relationship | Address | Phone | + + + + + | Joseluis Desai | ECON | [place] | | | | | [address] | | + + + + + | Mila Desai | ECON | Unknown | | + + + + + Care Team Providers + +------+ + | Care Area Secretary Name | Role | Phone | + [...] Forrest SMITH | | | | | [phone] | [place] [address] | | +--------+ + + + + [...] [place] | | | | | | [address] | | | | | | | [...]
--- OUTSIDE RECORDS SUMMARY | ~2019-01-22 | XMS | Clinical Summary ---
Demographics + + + | Address | [address] | | | [place] [address] | + + + | Home Phone | | + + + | Preferred Language | Unknown | + + + | Marital Status | Single | + + + | Confucianism Affiliation | Unknown | + + + | Race | Unknown | + + + | Ethnic Group | Unknown | + + + Author + + + | Author | [facility] (Historical as of | | | 10-28-18) | + + + | Organization | [facility] (Historical as of | | | 10-28-18) | + + + | Address | Unknown | + + + | Phone | Unavailable | + + + Support + + +---------+ + | Name | Relationship | Address | Phone | + + +---------+ + | Joseluis Desai | ECON | Unknown | | + + +---------+ + Care Team Providers + +------+ + | Care Home Agent Name | Role | Phone | [...] | | | | + + +---------+---------+------+------+-------+ Active Problems + [...] | COPD (chronic obstructive pulmonary disease) ([facility]) | 10/22/2013 | + + + [...] gum at this time. | + + Family History + + +------+ [...] | | | | | | [place] [address] | | | | | | [phone] | | | | | | | [...] | + + + + + | DEXA SCAN SCREENING | | | | | | 9 | | | + + + + + | Vaccine: | | | | | Pneumococcal 65+ | 9 | | | | Low/Medium Risk (1 | | | | | of 2 - PCV13) | | | | + + + + + | Vaccine: Influenza | | | | | (#1) | 9 | | | + + [...] | | + +--------+ +------+-------+ + | MEDICARE | MEDICA | [id number] | | | [address] | | | RE | | | | [place] [address] | | | IP-OP | | | | | + +--------+ +------+-------+ + + +--------+ +--------+ + + | Guarantor Name | Accoun | Relation to | Date | Phone | Billing Address | | | t Type | Patient | of | | | | | | | | | | + +--------+ +--------+ + + | DANYEL NARANJO I | Person | Self [birth year] | Home: | [address] | | | al/Fam | | 4 | [phone] | [place] | | | [place]ito | | | [phone] | [phone] | + +--------+ +--------+ + +
--- OUTSIDE RECORDS SUMMARY | ~2019-01-22 | XMS | Encounter Summary ---
Demographics + + + | Address | [address] | | | [place] [address] | + + + | Home Phone | | + + + | Preferred Language | Unknown | + + + | Marital Status | | + + + | Lutheran Affiliation | 1028 | + + + | Race | Unknown | + + + | Ethnic Group | Unknown | + + + Author + + + | Author | [facility] | | | and [place] | + + + | Organization | [facility] | | | and [place] | + + + | Address | Unknown | + + + | Phone | Unavailable | + + + Support + + + + + | Name | Relationship | Address | Phone | + + + + + | Joseluis Desai | ECON | [place] | | | | | [address] | | + + + + + | Mila Desai | ECON | Unknown | | + + + + + Care Team Providers + +------+ + | Care Operations Plant Attendant Name | Role | Phone | [...] Forrest SMITH | | | | | [phone] | [place] [address] | | +--------+ + + + + [...] [place] | | | | | | [address] | | | | | | | [...]
--- OUTSIDE RECORDS SUMMARY | ~2019-01-22 | XMS | Encounter Summary ---
Demographics + + + | Address | [address] | | | [place] [address] | + + + | Home Phone | | + + + | Preferred Language | Unknown | + + + | Marital Status | | + + + | Druze Affiliation | 1028 | + + + | Race | Unknown | + + + | Ethnic Group | Unknown | + + + Author + + + | Author | [facility] | | | and [place] | + + + | Organization | [facility] | | | and [place] | + + + | Address | Unknown | + + + | Phone | Unavailable | + + + Support + + + + + | Name | Relationship | Address | Phone | + + + + + | Joseluis Desai | ECON | [place] | | | | | [address] | | + + + + + | Mila Desai | ECON | Unknown | | + + + + + Care Team Providers + +------+ + | Care Plaster Model And Mold Maker Name | Role | Phone | [...] Provider Unknown | | | | | [place], [place] | [phone] | | | | | [address] | | | | | | [phone] | | | +--------+ + + + [...] [place] | | | | | | [address] | | | | | | | [...]
--- OUTSIDE RECORDS SUMMARY | ~2019-01-22 | XMS | Encounter Summary ---
Demographics + + + | Address | [address] | | | [place] [address] | + + + | Home Phone | | + + + | Preferred Language | Unknown | + + + | Marital Status | | + + + | Scientologist Affiliation | 1028 | + + + | Race | Unknown | + + + | Ethnic Group | Unknown | + + + Author + + + | Author | [facility] | | | and [place] | + + + | Organization | [facility] | | | and [place] | + + + | Address | Unknown | + + + | Phone | Unavailable | + + + Support + + + + + | Name | Relationship | Address | Phone | + + + + + | Joseluis Desai | ECON | [place] | | | | | [address] | | + + + + + | Mila Desai | ECON | Unknown | | + + + + + Care Team Providers + +------+ + | Care Leather Sprayer Name | Role | Phone | + [...] | disease, | [address] | [place] [address] | | | | | unspecified | [place], | Phone: | | | | | ([facility]LY [facility]) | [place] | [phone] | | | | | Procedures | [address] | Fax: | | | | | F/U DOMO COBB | Phone: | [phone] | | | | | MILDR[place] JOYCE | [phone] | | | | | | 06/30/18 | Fax: | | | | | | | [phone] | | +--------+--------+ + + + + Encounter Details +--------+---------+ + + + | Date | Type | Department | Care Team | Description | +--------+---------+ + + + | 08/04/ | Office | [facility] | Tyree Joyce, | COPD, moderate (HCC) | | 2019 | Visit | PULMONARY [address] | MD [address] | (Primary Dx) | | | | [place], | [place] | | | | | [place] [id number] | [id number] | | | | | [phone] | | | +--------+---------+ + + + [...] secretions in your nose and lungs . [id number] cold medicines will not make the flu [...] for a few days Date Last Reviewed: 03/14/201619990137-0682 [employer]. [address] [place] [address]. All righ ts reserved. 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
--- OUTSIDE RECORDS SUMMARY | ~2019-01-22 | XMS | Encounter Summary ---
Demographics + + + | Address | [address] | | | [place] [address] | + + + | Home Phone | | + + + | Preferred Language | Unknown | + + + | Marital Status | | + + + | Hinduism Affiliation | 1028 | + + + | Race | Unknown | + + + | Ethnic Group | Unknown | + + + Author + + + | Author | [facility] | | | and [place] | + + + | Organization | [facility] | | | and [place] | + + + | Address | Unknown | + + + | Phone | Unavailable | + + + Support + + + + + | Name | Relationship | Address | Phone | + + + + + | Joseluis Desai | ECON | [place] | | | | | [address] | | + + + + + | Mila Desai | ECON | Unknown | | + + + + + Care Team Providers + +------+ + | Care Personal Property Appraiser Name | Role | Phone | [...] OP [address] | [address] [facility] | | | 08/18/ | | Ave [place] | [place] [address] | | | 2018 | | [address] | [phone] | | | | | [phone] | | | +--------+---------+ + + + [...] Follow Up Appointments: Bry Vaughn DO [address] [place] [address] Schedule an appointment as soon as possible for a visit Discharge Disposition: Home Consultants This Admission: Vascular surgery, General Surgery, Interventional Radiology Hospital Course: Amy Coleman is a 62-year-old female with past medical history significant for COPD, CAD s/p NSTEMI ( no PCI), who was transferred to [facility] for ICU care from [facility] on 08/17 wh ere she was intubated [...] going home to continue duo nebs at [facility]. She is being discharged [...] this chart may have been created with Social[employer]ield voice recognition software. Occasi onal wrong-word or [...] urine. Belly (abdominal) pain Date Last Reviewed: 09/12/201519999061-8512 [employer]. [address] [place] [address], [place] [address]. All righ ts reserved. This information is [...] about recovering at home. Date Last Reviewed: 02/12/201619990312-4729 [employer]. [address] [place] [address], [place] [address]. All righ ts reserved. This information is not intended as a substitute for professional medical care. Always follow your healthcare professional's instructions. [facility] Patient Belongings Amy Coleman 1955 Patient Signature: Clinician/Counter Tender Signature: Discharge Instructions: After Your Surgery You [...] interact with your prescription medicines or other yxhr-nzw-ymiqxos (OTC) medicines. Some prescription medicines have acetaminophen and other ingredients.Using both prescription a nd OTC acetaminophenfor paincan cause you to overdose. Readthe labels on your OTC [facility] care. This will help youto clearly know [...] of taking these medicines. Date Last Reviewed: 02/12/201619993351-2565 [employer]. [address] [place] [address], [place] [id number]. All righ ts reserved. This information is [...] is a 62 year old female from [place], [place] with [facility] Plan Medicaid insurance. SW received referral for [...] ( no PCI), who was transferred to [facility] for ICU care from [facility] on 08/17 wh ere she was intubated [...] - Single Lumen 05/08/17 0130 Left Forearm rczk-xjc-iaeaub catheter syst em 20 gauge 106 days [...] this chart may have been created with SocialShield voice recognition software. Occasi onal wrong-word or sound-alike substitutions may have occurred due to the inherent lobo itations of voice recognition software. Please read the chart carefully and recognize, using context, where these substitutions have occurred Krzysztof Ordaz MD - 08/21/2017 5:47 PM PDTFormatting of this note might be different f rom the original. [facility] - [facility] Surgery Team Hospital Day: 5 [...] Signed by: Krzysztof Montaño MD, 08/21/2017 17:47 [facility] ope, Riky Avendaño MD - 08/21/2017 9:49 AM PDT Patient: Amy Coleman Date of : 1955 Admit Date: 08/17/2017 Date of Service: 08/21/2017 PCP: Bry Vaughn DO Hospital Day: Hospital Day: 5 Hospital Course: Amy Coleman is a 62-year-old female with past medical history significant for COPD, CAD s/p NSTEMI ( no PCI), who was transferred to [facility] for ICU care from [facility] on 08/17 ere she was intubated for [...] - Single Lumen 05/08/17 0130 Left Forearm kzev-cku-tdqulu catheter syst em 20 gauge 105 days [...] Hold Result Value Ref Range Product Code F6004N62 UNIT # [id number] UNIT ABO O UNIT RH POS Unit Status IS Blood Product Expiration Date and Time Product Blood Type Barcode 5100 Product Code L5472M11 UNIT # [id number] UNIT ABO O UNIT RH POS Unit Status RE Blood Product Expiration Date and Time [id number] Product Blood Type Barcode 5100 Hemoglobin and [...] this chart may have been created with [employer] voice recognition software. Occasi onal wrong-word or sound-alike substitutions may have occurred due to the inherent lobo itations of voice recognition software. Please read the chart carefully and recognize, using context, where these substitutions have occurred Krzysztof Ordaz MD - 08/20/2017 12:23 PM PDTFormatting of this note might be different f rom the original. [facility] - [place] General Surgery Team Hospital Day: 4 DATE/TIME: [...] Signed by: Krzysztof Montaño MD, 08/20/2017 12:23 [facility] Nadia Blount MD - 08/20/2017 10:02 AM PDT Patient: Amy Coleman Date of : 1955 Admit Date: 08/17/2017 Date of Service: 08/20/2017 PCP: Bry Vaughn DO Hospital Day: Hospital Day: 4 Hospital Course: Amy Coleman is a 62-year-old female with past medical history significant for COPD, CAD s/p NSTEMI ( no PCI), who was transferred to [facility] for ICU care from [facility] on 08/17 wh ere she was intubated [...] - Single Lumen 05/08/17 0130 Left Forearm tvye-lhl-rjflev catheter syst em 20 gauge 104 days [...] this chart may have been created with [employer]ield voice recognition software. Occasi onal wrong-word or sound-alike substitutions may have occurred due to the inherent lobo itations of voice recognition software. 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 Scheduled bowel meds started. Indwelling [...] LABORATORY: I personally reviewed recent labs in [facility] and ordered appropriate follow-up domonique dies. [...] Component Value Date PHART 7.36 (L) 08/19/2017 [id number] 44 (H) 08/19/2017 PO2ART 91 (H) 08/19/2017 [id number] 13.3 (L) 08/19/2017 [id number] 25.2 08/19/2017 BEART -0.2 08/19/2017 CARBOXYHGB 1.0 [...] this chart may have been created with [employer]ield voice recognition software. Occasi onal wrong-word or sound-alike substitutions may have occurred due to the inherent lobo itations of voice recognition software. Please read the chart carefully and recognize, using context, where these substitutions have occurred. Kzrysztof Ordaz MD - 08/19/2017 2:04 PM PDT [facility] [place] General Surgery Team Hospital Day: 3 DATE/TIME: [...] Signed by: Krzysztof Montaño MD, 08/19/2017 14:05 [facility] Jarocho Saldaña V FOOD SERVICES COORDINATOR - 08/19/2017 10:10 AM PDT 08/19/17 1009 Respiratory Assessment Interventions ~ Patient Assessment ~ Multi-disciplinary Rounds Continue current care. Q4 DuonebsElectronically signed by Jarocho Hunt V FOOD SERVICES COORDINATOR at 2017 10:10 AM Volodymyr Peña RRT [...] this note might be different from t ekvin original. VASCULAR SURGERY PROGRESS NOTE Seen by [place] Cole PA-C on 08/19/2017 (Hospital Day: 3) 1 Day Post-Op PATIENT NAME: Amy Coleman DATE OF : 1955 MED RECORD: [id number] ASSESSMENT/PLAN PROCEDURE: mesenteric angiogram 08/18 ASSESSMENT: 1. 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 Scheduled bowel meds started. Indwelling [...] LABORATORY: I personally reviewed recent labs in [facility] and ordered appropriate follow-up domonique dies. [...] Component Value Date PHART 7.34 (L) 08/18/2017 [id number] 39 08/18/2017 PO2ART 139 (H) 08/18/2017 K2MFHTHIF 11.2 (L) 08/18/2017 BAV2VWT 21.2 (L) 08/18/2017 BEART -4.5 (L) 08/18/2017 [...] this chart may have been created with [employer]ield voice recognition software. Occasi onal wrong-word or [...] 6:28 AM PDT Critical Care Progress Note [facility] Date of Service: 08/18/2017 Admit [...] sease only, no PCI) presented to OSH ([place], [place]) initially w/ c/o SOB and was intubated for acute on chronic respiratory failure (ABG prior to intubation: 7.0/98/217/26). Pt then developed hypotension/HD instability for which she required 2 pressors. hgb fell from 15-- >4 and pt rc'd 6u PRBCs, 2uFFP, 1u PLT, 5L NS. CT abdomen showed RP hematoma and pt was tra nsferred to [facility] for further eval of this. 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 Gen surgery consulted as w ell as vascular to determine best approach to vascular issues given high potential for re bl eed. Summary of Significant Events: 08/17: Admitted to [facility]. Intubated. To IR 08/18: Awake, alert. NE [...] l plan set Bowel Function: Last BM: KNURLING MACHINE OPERATOR. PRN bowel meds available. Indwelling Bladder Catheter Indication: Vasopressors for hemodynamic instability Subjective 24hr interval history: Transferred from [place], [place] to [facility] Afebrile Rc'd 6u PRBCs, 2u FFP, 1u [...] LABORATORY: I personally reviewed recent labs in [facility] and ordered appropriate follow-up domonique dies. [...] Results Component Value Date PHART 7.39 08/18/2017 TRW6YZE 32 08/18/2017 PO2ART 108 (H) 08/18/2017 I4XFYPGSN 16.2 08/18/2017 HLU6QKQ 19.4 (L) 08/18/2017 BEART -5.6 (L) 08/18/2017 [...] this chart may have been created with [employer]Shield voice recognition software. Occasi onal wrong-word or sound-alike substitutions may have occurred due to the inherent lobo itations of voice recognition software. Please read the chart carefully and recognize, using context, where these substitutions have occurred. Associated attestation - Vikram James MD - 08/18/2017 8:56 AM PDT Physician Attestation Note [facility] Date of Service: 08/18/2017 Reason for critical care: Hemorrhagic shock secondary to intra-abdominal bleeding I reviewed and discussed the patient history, assessment and plan with the KOLE, during pers onal discussion and/or multi-disciplinary rounds. Acute issues or additions to plan of care: 62 year old lady with PMH of COPD, CAD s/p NSTEMI (no PCI, mild disease) presented to [facility] on 08/16 with shortness of breath and [...] this chart may have been created with SocialShield voice recognition software. Occasi onal wrong-word or [...] riginal. . Critical Care-Care Progress Note Update [facility] Date of Service: 08/17/2017 Admit [...] called and discussed plans with son, Joseluis ([phone]). He expre ssed understanding and wanted to [...] this chart may have been created with [employer]Shield voice recognition software. Occasi onal wrong-word or [...] [place] | | | | | | [address] | | | | | | | [...] MEDICAL | | | | [facility] [address], | | CENTER | | | | [place] [address] | | LABORATORY | | | | [...] + | GILBERTO NICHOLAS | [address] | [place] [address] | | | [facility] | | | | | LABORATORY [...] | | | Performed by [facility] [address] | | SACRED | | | | [address] [place] | | HEART | | | | [address] | | MEDICAL | | | | [...] + | GILBERTO NICHOLAS | [address] | [place] [address] | | | [facility] | | | | | CELESTE [...] MEDICAL | | | | [facility] [address], | | CENTER | | | | [place] [address] | | LABORATORY | | | | [...] + + | GILBERTO NICHOLAS | [address] | [place] [address] | | | HEART [facility] | | | | | [...] | | | | by [facility] [address], | | SACRED | | | | [place] [address] | | HEART | | | |Performed by [facility] [address], [place] [address] | | MEDICAL | | | | [...] + + | GILBERTO NICHOLAS | [address] | [place] [address] | | | HEART [facility] | | | | | [...] | | | Performed by [facility] [address] | | SACRED | | | | [address] [place] | | HEART | | | | [address] | | MEDICAL | | | | [...] + + | ANAODILIASneha NICHOLAS | [address] | [place] [address] | | | [facility] | | | | | CELESTE [...] | | | Performed by [facility] [address] | | SACRED | | | | [address] [place] | | HEART | | | | [address] | | MEDICAL | | | | [...] + | GILBERTO NICHOLAS | [address] | [place] [address] | | | [facility] | | | | | LABORATORY [...] + + + + | Product | [id number] | | REFERENCE | | | Code | | | [facility] [place] | | | | | | [facility] | | | | | | [facility] | | | | | | B[facility]OD | | | | | | CENTER | | + + + + + + | UNIT # | [id number] | | REFERENCE | | | | | | [facility] [place] | | | | | | [facility] | | | | | | [facility] | | | | | | BLOOD | | | | | | CENTER | | + + + + + + | UNIT ABO | O | | REFERENCE | | | | | | [facility] [place] | | | | | | [facility] | | | | | | [facility] | | | | | | BLOOD | | | | | | CENTER | | + + + + + + | UNIT RH | POS | | REFERENCE | | | | | | [facility] [place] | | | | | | [facility] | | | | | | [facility] | | | | | | BLOOD | | | | | | CENTER | | + + + + + + | Unit Status | IS | | REFERENCE | | | | | | [facility] [place] | | | | | | [facility] | | | | | | [facility] | | | | | | BLOOD | | | | | | CENTER | | + + + + + + | Blood | [id number] | | REFERENCE | | | Product | | | [facility] [place] | | | Expiration | | | [facility] | | | Date and | | | [facility] | | | Time | | | BLOOD | | | | | | CENTER | | + + + + + + | Product | [id number] | | REFERENCE | | | Blood Type | | | [facility] [place] | | | Barcode | | | [facility] | | | | | | [facility] | | | | | | BLOOD | | | | | | CENTER | | + + + + + + | Product | [id number] | | REFERENCE | | | Code | | | [facility] [place] | | | | | | [facility] | | | | | | [facility] | | | | | | BLOOD | | | | | | CENTER | | + + + + + + | UNIT # | [id number] | | REFERENCE | | | | | | [facility] [place] | | | | | | [facility] | | | | | | [facility] | | | | | | BLOOD | | | | | | CENTER | | + + + + + + | UNIT ABO | O | | REFERENCE | | | | | | [facility] [place] | | | | | | [facility] | | | | | | [facility] | | | | | | BLOOD | | | | | | CENTER | | + + + + + + | UNIT RH | POS | | REFERENCE | | | | | | [facility] [place] | | | | | | [facility] | | | | | | [facility] | | | | | | BLOOD | | | | | | CENTER | | + + + + + + | Unit Status | RE | | REFERENCE | | | | | | [facility] [place] | | | | | | [facility] | | | | | | [facility] | | | | | | BLOOD | | | | | | CENTER | | + + + + + + | Blood | [id number] | | REFERENCE | | | Product | | | [facility] [place] | | | Expiration | | | [facility] | | | Date and | | | [facility] | | | Time | | | BLOOD | | | | | | CENTER | | + + + + + + | Product | [id number] | | REFERENCE | | | Blood Type | | | [facility] [place] | | | Barcode | | | [...] + + + | Specimen Expiration Date: [id number] | REFERENCE LAB | | | [place] | | | [facility] | | | [facility] | + + + + + + + + | Performing | Address | City/State/Zipcode | Phone Number | | Organization | | | | + + + + + | REFERENCE LAB | [address] | [place] [address] | [phone] | | [place] | | | | | [facility] [...] | | | Performed by [facility] [address] | | SACRED | | | | [address] [place] | | HEART | | | | [address] | | MEDICAL | | | | [...] + + | ANALENO NICHOLAS | [address] | [place] [address] | | | [facility] | | | | | LABORATORY [...] | | | Performed by [facility] [address] | mmol/L | SACRED | | | | [address], [place], [place] | | HEART | | | | [address] | | MEDICAL | | | | [...] SACRED | [address] | [place] [address] | | | HEART MEDICAL CENTER | [...] | | | Performed by [facility] [address] | mmol/L | SACRED | | | | [address] [place], [place] | | HEART | | | | [address] | | MEDICAL | | | | [...] + | ANAODILIASneha SAENZJAD | [address] [place] [address]. | [place] [address] | | | [facility] | | | | | LABORATORY [...] [facility] | | | | Performed by [place] [address] [address] | | SACRED | | | | [address] [place] | | HEART | | | | [address] | | MEDICAL | | | | [...] SACRED | [address] | [place] [address] | | | [facility] | | | | | LABORATORY [...] | | | 3.5Performed by [facility] [address] | | LABORATORY | | | | [address] [place] | | [place] | | | | [address] | | | | + + + + + + + + | Specimen | + + | Blood specimen | | (specimen) | + + + + + + + | Performing | Address | City/State/Zipcode | Phone Number | | Organization | | | | + + + + + | [facility] | [address] | [place] [address] | | | [facility] | | | | | LABORATORY [...] | | Venous | by [facility] [address], | mmol/L | SACRED | | | | [place] [address] | | HEART | | | |Performed by [facility] [address], [place] [address] | | MEDICAL | | | | [...] + + | GILBERTO NICHOLAS | [address] | [place] [address] | | | [facility] | | | | | [...] MEDICAL | | | | [facility] [address], | | CENTER | | | | [place] [address] | | LABORATORY | | | | [...] + + | GILBERTO SACRED | [address] | [place] [address] | | | [facility] | | | | | LABORATORY [...] ENCE | | | | [facility] [address], | | SACRED | | | | [place] [address] | | HEART | | | |Performed by [facility] [address], [place] [address] | | MEDICA L | | | [...] + | GILBERTO NICHOLAS | [address] | [place] [address] | | | [facility] | | | | | LABORATORY [...] | | | | by [facility] [address], | mmol/L | SACRED | | | | [place] [address] | | HEART | | | |Performed by [facility] [address], [place] [address] | | MEDICAL | | | | [...] + | GILBERTO NICHOLAS | [address] | [place] [address] | | | [facility] | | | | | LABORATORY [...] PROVIDENCE | | | | [facility] [address], | | SACRED | | | | [place] [address] | | HEART | | | |Performed by [facility] [address], [place] [address] | | MEDICAL | | | | [...] NICHOLAS | [address] | [place] [address] | | | [facility] | | | | | LABORATORY [...] | | ARTERIAL | by [facility] [address], | | SACRED | | | | [place] [address] | | HEART | | | |Performed by [facility] [address], [place] [address] | | MEDICAL | | | | [...] + | ANAODILIASneha NICHOLAS | [address] | [place] [address] | | | [facility] | | | | | LABORATORY [...] | | | Performed by [facility] [address] | | SACRED | | | | [address] [place] | | HEART | | | | [address] | | MEDICAL | | | | [...] + + | GILBERTO NICHOLAS | [address] | [place] [address] | | | [facility] | | | | | LABORATORY [...] | | ARTERIAL | by [facility] [address], | | SACRED | | | | [place] [address] | | HEART | | | |Performed by [facility] [address], [place] [address] | | MEDICAL | | | | [...] + + | IGLBERTO NICHOLAS | [address] | [place] [address] | | | [facility] | | | | | LABORATORY [...] + + + + + + | [employer]JNU [employer]IST [employer] | <0.2 | 0.0 - 0.9 [...] [place] | | | | | | [id number] David J | | | | | | Ph:[phone] | | | | + + + + + + + + | Specimen | + + | Blood specimen | | (specimen) | + + + + + + + | Performing | Address | City/State/Zipcode | Phone Number | | Organization | | | | + + + + + | [facility] | [address] | [place] [address] | | | [facility] | | | | | LABORATORY [...] | | Arterial | by [facility] [address], | mmol/L | SACRED | | | | [place] [address] | | HEART | | | |Performed by [facility] [address], [place] [address] | | MEDICAL | | | | [...] + | GILBERTO NICHOLAS | [address] | [place] [address] | | | [facility] | | | | | LABORATORY [...] | | ARTERIAL | by [facility] [address], | | SACRED | | | | [place] [address] | | HEART | | | |Performed by [facility] [address], [place] [address] | | MEDICAL | | | | [...] + | [facility] | [address] | [place] [address] | | | [facility] | | | | | LABORATORY [...] | | | Performed by [facility] [address] | | SACRED | | | | [address] [place] | | HEART | | | | [address] | | MEDICAL | | | | [...] + | [facility] | [address] | [place] [address] | | | [facility] MEDICAL CENTER | [...] | | | Performed by [facility] [address] | | CENTER | | | | [address], [place] | | LABORATORY | | | | [address] | | [place] | | | | [...] SACRED | [address] | [place] [address] | | | HEART MEDICAL CENTER | [...] | Arterial | Performed by [facility] [address] | mmol/L | SACRED | | | | [address] [place] | | HEART | | | | [address] | | MEDICAL | | | | [...] + + | GILBERTO NICHOLAS | [address] | [place] [address] | | | [facility] | | | | | LABORATORY [...] | | | | by [facility] [address], | mmol/L | SACRED | | | | [place] [address] | | HEART | | | |Performed by [facility] [address], [place] [address] | | MEDICAL | | | | [...] + | [facility] | [address] | [place] [address] | | | HEART MEDICAL CENTER | [...] | | | ARTERIAL | Performed by [facility] [address] | | SACRED | | | | [address] [place] | | HEART | | | | [address] | | MEDICAL | | | | [...] + | GILBERTO NICHOLAS | [address] | [place] [address] | | | [facility] | | | | | LABORATORY [...] | | | Performed by [facility] [address] | | SACRED | | | | [address] [place] | | HEART | | | | [address] | | MEDICAL | | | | [...] + | ANAODILIASneha SAENZJAD | [address] | [place] [address] | | | [facility] | | | | | LABORATORY [...] | | Venous | by [facility] [address], | mmol/L | SACRED | | | | [place] [address] | | HEART | | | |[facility]formed by [facility] [facility] [address], [place] [address] | | MEDICAL | | | | [...] + + | [facility] | [address] | [place] [address] | | | [facility] | | | | | LABORATORY [...] MEDICAL | | | | [facility] [address], | | CENTER | | | | [place] [address] | | LABORATORY | | | | [...] + | GILBERTO NICHOLAS | [address] | [place] [address] | | | [facility] | | | | | LABORATORY [...] | | HEART | | | | [facility] | | [facility] | [...] IOM | | | | | | ([facility]). | | | | | [...] [facility] | | | | | | [address] | | | | | | [address] [place], [place] | | | | | | [id number] Daniel | | | | | | L Ph:[id number] | | | | + + + + + + + + | Specimen | + + | Blood specimen | | (specimen) | + + + + + + + | Performing | Address | City/State/Zipcode | Phone Number | | Organization | | | | + + + + + | GILBERTO NICHOLAS | [address] | [place] [address] | | | [facility] | | | | | LABORATORY [...] | | Venous | by [facility] [address], | mmol/L | SACRED | | | | [place] [address] | | HEART | | | |Performed by [facility] [address], [place] [address] | | MEDICAL | | | | [...] + | GILBERTO NICHOLAS | [address] | [place] [id number] | | | [facility] | | | | | LABORATORY [...] | | | Cells | [facility] [address], | | SACRED | | | | [place] [address] | | HEART | | | |Performed by [facility] [address], [place] [address] | | MEDICA L | | | [...] [address] | [place] [address] | | | [facility] | | | | | LABORATORY [...] | | | | by [facility] [address], | mmol/L | SACRED | | | | [place] | | HEART | | | |Performed by [facility] [address], [place] | | MEDICAL | | | [...] + + | GILBERTO NICHOLAS | [address] | [place] | | | [facility] [...] | Arterial | Performed by [facility] [address] | mmol/L | SACRED | | | | [address] [place], [place] | | HEART | | | | [address] | | MEDICAL | | | | [...] + | GILBERTO NICHOLAS | [address] | [place] [address] | | | [facility] | | | | | LABORATORY [...] E | | | Normalized | by [place] [address], | mg/dL | SACRED | | | | [place] [address] | | HEART | | | |Performed by [facility] [address], [place] [address] | | MEDICAL | | | | [...] + | GILBERTO NICHOLAS | [address] | [place] [address] | | | [facility] | | | | | LABORATORY [...] | | ARTERIAL | by [facility] [address], | | SACRED | | | | [place] [address] | | HEART | | | |Performed by [facility] [address], [place] [address] | | MEDICAL | | | | [...] + | GILBERTO NICHOLAS | [address] | [place] [address] | | | [facility] | | | | | LABORATORY [...] | Venous | Performed by [facility] [address] | mmol/L | [facility]CRED | | | | [address], [place] | | HEART | | | | [address] | | MEDICAL | | | | [...] [address] | [place] [address] | | | [facility] MEDICAL CENTER | [...] | | | | by [facility] [address], | | SACRED | | | | [place] [address] | | HEART | | | |Performed by [facility] [address], [place] [address] | | MEDICAL | | | | [...] | sst | [facility] | | | [facility] | | | MEDICAL CENTER | | | LABORATORY | | | [place] | + + + + + + + + | Performing | Address | City/State/Zipcode | Phone Number | | Organization | | | | + + + + + | [facility] | [address] | [place] [address] | | | [facility]ICAL [facility]ENTER | [...] | | | Performed by [facility] [address] | | SACRED | | | | [address] [place] | | HEART | | | | [address] | | MEDICAL | | | | [...] + + | GILBERTO NICHOLAS | [address] | [place] [address] | | | [facility] | | | | | LABORATORY [...] Seldinger technique, a 6 | | | Nigerien sheath was positioned into the right common femoral artery and | | | attached to a flush system. A 5 Nigerien Scott 2 catheter was | | | then positioned through a 6 Nigerien guiding catheter an utilized to | | [...] | Hemostasis was achieved with a 6 Nigerien Angio-Seal device. | | | Maximum sterile [...] | | standard Seldinger technique, a 6 Nigerien sheath was positioned into | | the right common femoral artery and attached to a flush system. | | | | A 5 Nigerien Scott 2 catheter was then positioned through a 6 Nigerien | | guiding catheter an utilized to [...] performed. Hemostasis was achieved with a 6 Nigerien | | Angio-Seal device. | | | [...] | | | Performed by [facility] [address] | | SACRED | | | | [address] [place] | | HEART | | | | [address] | | MEDICAL | | | | [...] + + | GILBERTO NICHOLAS | [address] | [place] [address] | | | [facility] | | | | | LABORATORY [...] | Venous | Performed by [facility] [address] | mmol/L | SACRED | | | | [address], [place] | | HEART | | | | [address] | | MEDICAL | | | | [...] | [address] | [place] [address] | | | [facility]ICAL [facility]ENTER | [...] | Normalized | Performed by [facility] [address] | mg/dL | SACRED | | | | [address] [place] | | HEART | | | | [address] | | MEDICAL | | | | [...] + | GILBERTO NICHOLAS | [address] | [place] [address] | | | [facility] | | | | | CELESTE [...] | | | | by [facility] [address], | mmol/L | SACRED | | | | [place] [address] | | HEART | | | |Performed by [facility] [address], [place] [address] | | MEDICAL | | | | [...] + | GILBERTO NICHOLAS | [address] | [place] [address] | | | [facility] | | | | | LABORATORY [...] | | | Performed by [facility] [address] | | SACRED [...] | [place] | | | HEART [facility] | | | | | [...] | | | | by [facility] [address], | | SACRED | | | | [place] [address] | | HEART | | | |Performed by [facility] [address], [place] [address] | | MEDICAL | | | | [...] + | [facility] | [address] | [place] [address] | | | [facility] | | | | | LABORATORY [...] | | | Performed by [facility] [address] | | SACRED | | | | [address] [place] | | HEART | | | | [address] | | MEDICAL | | | | [...] [address] | [place] [address] | | | [facility] | | | | | LABORATORY [...] | REPORT | Performed by [facility] [address] | | SACRED | | | | [address], [place] | | HEART | | | | [address] | | MEDICAL | | | | [...] + | GILBERTO NICHOLAS | [address] | [place] [address] | | | [facility] | | | | | LABORATORY [...] | REPORT | Performed by [facility] [address] | | SACRED | | | | [address] [place] | | HEART | | | | [address] | | MEDICAL | | | | [...] [address] | [place] [address] | | | [facility] | | | | | LABORATORY [...] Number [id number] Patient Number | | | [id number] Date of Study 08/18/2017 Visit | | | Number [id number] | | | Referring Physician BRI Sánchez Date of | | | 1955 [address] Julien Zamora Age | | | 62 year(s) Interpreting | | | [facility] | | | Foundry Supervisor | | | Mara Patton MD Gender | | | Female Nurse | | | Stress Counter Tender Procedure Type of Study TTE procedure: | [...] Atrium Left Ventricle EF | | | Otlgjohiu05% | | | Electronically signed by Mara [...] | | | | | | EF Mkokzqbsq34% | | | | | + + --+ + + | Procedure Note | + + | Daniel You In - 08/18/2017 11:38 AM PDT Transthoracic Echocardiography Report | | (TTE) Demographics Patient Name MARCELLA MONTAÑO I Room Number 258 Patient | | Number [id number] Date of Study 08/18/2017 Visit Number [id number] | | Referring Physician BRI Sánchez Date of | | 1955 [place] [address] Julien Zamora Age 62 year(s) | | Interpreting [facility] Foundry Supervisor | | Mara Patton MD Gender | | Female Nurse Stress TechnicianProcedureType of | | Study TTE procedure: ECHO Complete, Add-on Items, COLOR DOPPLER, COMPLETE | | DOPPLER.Procedure dateDate: 08/18/2017Start: 07:21 AMTechnical Quality: Adequate | | visualization[facility].4/ I42.9.Patient | | Status: RoutineHeight: 63 [...] Left Atrium Left Ventricle EF | | Fabnwdiyn33% | |Conclusions | |Summary | |1. Small [...] Left Ventricle | | | | EF Bvmzosovc42% | + + + +---------+ + + [...] | Arterial | Performed by [facility] [address] | mmol/L | SACRED | | | | [address] [place] | | HEART | | | | [address] | | MEDICAL | | | | [...] NICHOLAS | [address] | [place] [address] | | | HEART [facility] | | | | | CELESTE [...] | | Normalized | by [facility] [address], | mg/dL | SACRED | | | | [place] [address] | | HEART | | | |Performed by [facility] [address], [place] [address] | | MEDICAL | | | | [...] [address] | [place] [address] | | | HEART [facility] | | | | | [...] | | | Performed by [facility] [address] | | SACRED | | | | [place] | | HEART | | | | [address] | | MEDICAL | | | | [...] + | GILBERTO NICHOLAS | [address] | [place] [address] | | | [facility] | | | | | CELESTE [...] | | ARTERIAL | by [facility] [address], | | SACRED | | | | [place] [address] | | HEART | | | |Performed by [facility] [address], [place] [address] | | MEDICAL | | | | [...] + + | [facility] | [address] | [place] [address] | | | HEART [facility] | | | | | [...] | | | | by [facility] [address], | | SACRED | | | | [place] [address] | | HEART | | | |Performed by [facility] [address], [place] [address] | | MEDICAL | | | | [...] + + | [facility] | [address] | [place] [address] | | | [facility] | | | | | LABORATORY [...] LABORATORY | | | | [facility] [address], | | [place] | | | | [place] [address] | | | | + + + + + + + + | Specimen | + + | Blood specimen | | (specimen) | + + + + + + + | Performing | Address | City/State/Zipcode | Phone Number | | Organization | | | | + + + + + | GILBERTO NICHOLAS | [address] | [place] [address] | | | [facility] | | | | | CELESTE [...] PROVIDE NCE | | | | by [place] [address], | | SACRED | | | | [place] [address] | | HEART | | | |Performed by [facility] [address], [place] [address] | | MEDICAL | | | | [...] + | ANALENO NICHOLAS | [address] | [place] [address] | | | [facility] | | | | | LABORATORY [...] ANAN CE | | | | by [facility] [address], | | SACRED | | | | [place] [address] | | HEART | | | |Performed by [facility] [address], [place] [address] | | MEDICAL | | | | [...] YU | [address] | [place] [address] | | | [facility]ICAL CENTER | [...] MEDICAL | | | | [facility] [address], | | CENTER | | | | [place] [address] | | LABORATORY | | | | [...] + + | GILBERTO NICHOLAS | [address] | [place] [address] | | | [facility] | | | | | CELESTE [...] E | | | | [facility] [address], | | SACRED | | | | [place] [address] | | HEART | | | |Performed by [facility] [address], [place] [address] | | MEDICAL | | | | [...] + + | [facility] | [address] | [place] [address] | | | [facility] | | | | | [...] - 1.030 | [facility] | | | [place] | | | SACRED | | | [...] | SOURCE | Performed by [facility] [address] | | SACRED | | | | [address] [place] | | HEART | | | | [address] | | MEDICAL | | | | [...] + | GILBERTO NICHOLAS | [address] | [place] [address] | | | [facility] | | | | | LABORATORY [...] | | | | by [facility] [address], | | SACRED | | | | [place] [address] | | HEART | | | |Performed by [facility] [address], [place] [address] | | MEDICAL | | | | [...] + | GILBERTO NICHOLAS | [address] | [place] [address] | | | [facility] | | | | | LABORATORY [...] | | Source | by [facility] [address], | | SACRED | | | | [place] [address] | | HEART | | | |Performed by [facility] [address], [place] [address] | | MEDICAL | | | | [...] + | GILBERTO NICHOLAS | [address] | [place] [address] | | | [facility] | | | | | CELESTE [...] and a short | | | 5 Nigerien vascular sheath was placed. A 5 Nigerien Scott 1 catheter | | | was [...] performed and a short | | 5 Nigerien vascular sheath was placed. A 5 Nigerien Scott 1 catheter | | was formed [...] | | | seconds.Performed by [facility] | | | | | | [address], | | | | | | [place] [address] | | | | + + + + + + + + | Specimen | + + | Blood specimen | | (specimen) | + + + + + + + | Performing | Address | City/State/Zipcode | Phone Number | | Organization | | | | + + + + + | ANALENO NICHOLAS | [address] | [place] [address] | | | [facility] | | | | | CELESTE [...] | Normalized | Performed by [facility] [address] | mg/dL | SACRED | | | | [address] [place] | | HEART | | | | [address] | | MEDICAL | | | | [...] + + | ANAODILIASneha [facility]ICHOL[facility] | [address] | [place] [address] | | | [facility] | | | | | LABORATORY [...] | | | | by [facility] [address], | mmol/L | SACRED | | | | [place] [address] | | HEART | | | |Performed by [facility] [address], [place] [address] | | MEDICAL | | | | [...] + + | GILBERTO NICHOLAS | [address] | [place] [address] | | | [facility] | | | | | LABORATORY [...] | GILBERTO | | | | by [facility] [address], | mmol/L | SACRED | | | | [place] | | HEART | | | |Performed by [facility] [address], [place] | | MEDICAL | | | [...] + + | GILBERTO NICHOLAS | [address] | [place] | | | HEART MEDICAL CENTER [...] | | | Performed by [facility] [address] | | SACRED | | | | [address] [place] | | HEART | | | | [address] | | MEDICAL | | | | [...] + | GILBERTO NICHOLAS | [address] | [place] [address] | | | [facility] | | | | | LABORATORY [...] | | ARTERIAL | by [facility] [address], | | SACRED | | | | [place] [address] | | HEART | | | |Performed by [facility] [address], [place] [address] | | MEDICAL | | | | [...] + | GILBERTO NICHOLAS | [address] | [place] [id number] | | | [facility] | | | | | LABORATORY [...] | | | | by [facility] [address], | | SACRED | | | | [place] [address] | | HEART | | | |Performed by [facility] [address], [place] [address] | | MEDICAL | | | | [...] + | ANAODILIASneha [facility]ICHOLAS | [address] | [place] [address] | | | [facility] | | | | | [...] | | | | | | [facility] | | | | | | [facility] | | | | | | [facility] | | | | | | [facility] | | | | | | [facility] | | + + + + + + | Rh Type | Positive | | REFERENCE | | | | | | [facility] | | | | | | [place] | | | | | | [facility] | | | | | | [facility] | | | | | | [facility] | | + + + + + + + + | Specimen | + + | | + + + + + | Narrative | Performed At | + + + | Specimen Expiration Date: [id number] | [facility] | | | [facility] | | | [facility] | | | [facility] | + + + + + + + + | Performing | Address | City/State/Zipcode | Phone Number | | Organization | | | | + + + + + | RE[facility]ENCE [facility] | [address] | [place] [address] | [phone] | | [facility] | | | | | [facility] [...] | | | | by [facility] [address], | | SACRED | | | | [place] [address] | | HEART | | | |Performed by [facility] [address], [place] [address] | | MEDICAL | | | | [...] + | [facility] | [address] | [place] [address] | | | [facility] | | | | | LABORATORY [...] MEDICAL | | | | [facility] [address], | | CENTER | | | | [place] [address] | | LABORATORY | | | | [...] + | GILBERTO NICHOLAS | [address] | [place] [address] | | | [facility] | | | | | LABORATORY [...] | | Basophils | by [facility] [address], | K/uL | SACRED | | | | [place] [address] | | HEART | | | |Performed by [facility] [address], [place] [address] | | MEDICA L | | | [...] + | GILBERTO NICHOLAS | [address] | [place] [address] | | | [facility] | | | | | LABORATORY [...] | | | | | | [facility] | | | | | | [place] | | | | | | [facility] | | | | | | [facility] | | | | | | [facility] | | + + + + + + | Rh Type | PositiveComment: Patient | | REFERENCE | | | | is remote crossmatch | | [facility] | | | | eligible | | [facility] | | | | | | [facility] | | | | | | [facility] | | | | | | CENTER | | + + + + + + | Antibody | Negative | | REFERENCE | | | Screen | | | [facility] | | | | | | [place] [...] + + + | Specimen Expiration Date: [id number] | [facility] | | | [facility] | | | [facility] | | | [facility] | + + + + + + + + | Performing | Address | City/State/Zipcode | Phone Number | | Organization | | | | + + + + + | RE[facility] | [address] | [place] [address] | [phone] | | [facility] | | | | | [facility] [...] | | | | | | Starting [facility] 08/18/17 at 0508 | | | [...] | | | | < 4.75, Starting [facility] 08/18/17 at | | | | [...]
--- OUTSIDE RECORDS SUMMARY | ~2019-01-22 | XMS | Encounter Summary ---
Demographics + + + | Address | [address] | | | [place] [address] | + + + | Home Phone [...] | [place] | | | | | [address] | | + + + + + | Mila Desai | ECON | Unknown | | + + + + + Care Team Providers + +------+ + | Care Housekeeper And Laundry Assistant Name | Role | Phone | [...] Forrest SMITH | | | | | [phone] | [place] [address] | | +--------+ + + + + [...] [place] | | | | | | [address] | | | | | | | [...]
--- OUTSIDE RECORDS SUMMARY | ~2019-01-22 | XMS | Encounter Summary ---
Demographics + + + | Address | [address] | | | [place] [address] | + + + | Home Phone [...] | [place] | | | | | [address] | | + + + + + | Mila Desai | ECON | Unknown | | + + + + + Care Team Providers + +------+ + | Care Corporate Operations Compliance Manager Name | Role | Phone | [...] | | | | ([facility]) sob | | | | | | | wetlands conservation laborer | | | | | | [...] | | | | | [address] | | | | | | [place] | | | | | | [address] | | | | | | [phone] | | | +--------+---------+ + + + [...] might be differ ent from the original. [facility] DISCHARGE SUMMARY Pt. Name/Age/: Amy Francois [...] on discharge day PROCEDURES AND CONSULTS: Procedures [facility] CORONARY ANGIOGRAPHY DOMINANCE: Right LEFT MAIN [...] week. Specialty: Internal Medicine Contact information: [address] [facility] [address] [place] [address] Demarcus Jurado MD In 3 weeks. Specialty: Gastroenterology Contact information: [address] [place] [address] Condition: Patient being discharged with condition improved Diet: low salt low fat Greater than 30 minutes were spent on discharge and coordination of post-hospital care. Electronically signed by: Narcisa Boone MD, 05/11/2017 7:41 [facility] Portions of this chart may have been created with [employer] voice recognition software. Occasi onal wrong-word or [...] worse Dizziness or weakness Date Last Reviewed: 11/13/201519997971-5980 [employer] [address] [place] [address], [place] [address]. All righ ts reserved. This information is not intended as a substitute for professional medical care. Always follow your healthcare professional's instructions. AttachmentsThe following attachments cannot be sent through Care Everywhere.Kicking the Smo miguel Habit (Arabic)Coronary Artery Disease (CAD), Understanding (Arabic)documented in this encounter Medications at Time of [...] with me around the the nurse station lummi without any supplemental oxygen, h er SpO2 [...] 20. Electronicall y signed by Carmelita Fulton, GEOTHERMAL POWERPLANT MECHANIC HELPER at 05/11/2017 10:37 AM Narcisa Bojorquez MD - 05/10/2017 7:23 AM PST [facility] [place] HOSPITALIST PROGRESS NOTE Patient: Amy Coleman : 1955: Age: 61 y.o. MedRec: [id number] Admission date: 05/08/2017 Hospital day # : [...] leads V4-6 Confirmed by GEORGES HU, LUCIO ([id number]) on 05/10/2017 7:08:38 AM POC Glucose Collection [...] Procedure Component Value Units Date/Time Culture, Blood [[id number]] (Normal) Collected: 05/08/17 0145 Order Status: Completed Lab Status: Preliminary result Updated: 05/08/17 140 Specimen: Blood from Line Culture No growth: Monitored continually by instrument for 5 days Culture, Blood [[id number]] (Normal) Collected: 05/08/17 0119 Order Status: Completed Lab Status: Preliminary result Updated: 05/08/171400 Specimen: Blood from Peripheral Blood Culture No growth: Monitored continually by instrument for 5 days Culture, MRSA [[id number]] Collected: 05/08/17 0032 Order Status: Completed Lab [...] this chart may have been created with [employer] voice recognition software. Occasi onal wrong-word or [...] ECGs available Confirmed by GEORGES HU, LUCIO ([id number]) on 05/08/2017 8:24:47 AM LVEF-TTE TRANSTHORACIC ECHO [...] lead V2 Confirmed by LUCIO SU MD ([id number]) on 05/09/2017 7:21:00 AM MG 05/08/2017 2.3 [...] Bojorquez MD - 05/09/2017 7:18 AM PST [place] HOSPITALIST PROGRESS NOTE Patient: Amy Coleman : 1955: Age: 61 y.o. MedRec: [id number] Admission date: 05/08/2017 Hospital day # : [...] 1616 sodium chloride 0.9% (NS) infusion Intravenous Electrical Engineering Manager Johnny Luther MD sodium chloride 0.9% [...] Procedure Component Value Units Date/Time Culture, Blood [[id number]] (Normal) Collected: 05/08/17 0145 Order Status: Completed Lab Status: Preliminary result Updated: 05/08/171400 Specimen: Blood from Line Culture No growth: Monitored continually by instrument for 5 days Culture, Blood [[id number]] (Normal) Collected: 05/08/17 0119 Order Status: Completed Lab Status: Preliminary result Updated: 05/08/171400 Specimen: Blood from Peripheral Blood Culture No growth: Monitored continually by instrument for 5 days Culture, MRSA [[id number]] Collected: 05/08/17 0032 Order Status: Sent Lab [...] reports feeling malaise with shortness of breath (vision therapist marla - not worse than baseline), headache [...] this chart may have been created with [employer] voice recognition software. Occasi onal wrong-word or [...] bottles X Pharmacy list names: [facility] [place] X Outside Information Vaccines up to date? [...] per week Marijuana smoke Daily Best possible FOOD AND BEVERAGE CASHIER medication list after pharmacy review: PT REPORTED [...] performed and electronically signed by Yolanda Grullon, Chief Sustainability Officer 15:16 Reviewed by Светлана Mendoza, PharmD 05/08/2017 15:28 Lavinia Peacock Chaplain - 05/08/2017 8:26 AM PST Spiritual Care Aym Coleman is a 61 y.o. female who is admitted for Respiratory failure ([facility]) [J96.90]. Spiritual Assessment: Patient was intubated at the time of visit. Aoexverv-pw-mdw, Raciel, was present and she reported that she is very close to the patient. She and the patient has discussed EOL toget her in the Okmebvhx-rl-auy is hoping for recovery for patient. Spiritual [...] can't relax until she knows h er fzfeag-ey-muy will be okay. Will see the patient as requested. If there are any other spiritual care issues that arise, please contact rag production worker. Narcisa Bojorquez MD - 05/08/2017 7:21 AM PSTFormatting of this note might be different from the lois edgar. [facility] [place] HOSPITALIST PROGRESS NOTE Patient: Amy Coleman : 1955: Age: 61 y.o. MedRec: [id number] Admission date: 05/08/2017 Hospital day # : [...] Procedure Component Value Units Date/Time Culture, Blood [[id number]] Collected: 05/08/17 0145 Order Status: Sent Lab Status: In process Updated: 05/08/17 015 Specimen: Blood from Line Culture, Blood [[id number]] Collected: 05/08/17 0119 Order Status: Sent Lab Status: In process Updated: 05/08/17 0153 Specimen: Blood from Peripheral Blood Culture, MRSA [[id number]] Collected: 05/08/1731 Order Status: Sent Lab Status: [...] arrest, never lost pulse. Transferred from [facility]. Family member at bedside reported patient hav [...] this chart may have been created with [employer] voice recognition software. Occasi onal wrong-word or [...] [place] | | | | | | [id number] | | | | | | | [...] + | [facility] | [address] | [place] | [phone] | | [facility] | | [address] | | | - LABORATORY | | [...] | mL/min/1.73m2 | [facility] | | | LUXEMBOURGER | RATE,ESTIMATED | | MEDICAL | | | | mL/min/1.46o0Lodn than | | CENTER - | | [...] ST. | [address] | [place] | [phone] | | [facility] | | [address] | | | - LABORATORY | | [...] [address] | [place] | [phone] | | [facility] | | [address] | | | - LABORATORY | | [...] ST. | [address] | [place] | [phone] | | [facility] | | [address] | | | - LABORATORY | | [...] + | [facility] | [address] | [place] | [phone] | | [facility] | | [address] | | | - LABORATORY | | [...] ST. | [address] | [place], [place] | [phone] | | [facility] | | [address] | | | - LABORATORY | | [...] ST. | [address] | [place], [place] | [phone] | | [facility] | | [address] | | | - LABORATORY | | [...] [address] | [place] | [phone] | | [facility] | | [address] | | | - LABORATORY | | [...] 0.59 (L) | 0.60 - 1.30 | [facility] | | | | | mg/dL [...] mL/min/1.73m2 | [facility] | | | LUXEMBOURGER | RATE,ESTIMATED | | MEDICAL | | | | mL/min/1.09f3Hlas than | | CENTER - | | [...] [address] | [place] | [phone] | | [facility] | | [address] | | | - LABORATORY | | [...] [address] | [place] | [phone] | | [facility] | | [address] | | | - LABORATORY | | [...] [address] | [place] | [phone] | | [facility] | | [address] | | | - LABORATORY | | [...] [address] | [place] | [phone] | | [facility] | | [address] | | | - LABORATORY | | [...] of | | | procedure done: Yes AUTOMOBILE SERVICE STATION ATTENDANT: Johnny Johnson M.D., F.A.C.C. | | | PRIMARY PHYSICIAN: Bry Vaughn, PROCEDURES PERFORMED: | | | Left heart catheterization, selective coronary arteriography | | | INDICATIONS : 61-year-old woman admitted with acute respiratory | | | failure, elevated troponin ARTERIAL ACCESS: Right radial artery 6 | | | Cook Islander CLOSURE DEVICE:. TR band DESCRIPTION OF PROCEDURE: [...] | | | technique and a 6 Cook Islander sheath was inserted. 3 mg per mL and 300 | | | g of nitroglycerin were administered through the side port of the | | | radial artery sheath. 4000 units of intravenous heparin was | | | administered. Selective coronary arteriography was performed using | | | a 5 Cook Islander Ole catheter. The 5 Cook Islander Ole catheter was | | | advanced [...] Johnny Johnson M.D., F.AThelmaCThelmaC. | | | Sock Boarder [facility] | | | [place] | | [...] [address] | [place] | [phone] | | [facility] | | [address] | | | - LABORATORY | | [...] | | | | | LUCIO HU ([id number]) on | | | | | | [...] + | [facility] | [address] | [place] | [phone] | | [facility] | | [address] | | | - LABORATORY | | [...] + | [facility] | [address] | [place], [place] | [phone] | | [facility] | | [address] | | | - LABORATORY | | [...] ST. | [address] | [place], [place] | [phone] | | [facility] | | [address] | | | - LABORATORY | | [...] + | [facility] | [address] | [place] | [phone] | | [facility] | | [address] | | | - LABORATORY | | [...] [address] | [place] | [phone] | | [facility] | | [address] | | | - LABORATORY | | [...] | | | FILTRATION | mL/min/1.73m2 | [facility] | | | LUXEMBOURGER | RATE,ESTIMATED | | MEDICAL | | | | mL/min/1.24g6Sqav than | | CENTER - | | [...] + | [facility] | [address] | [place] | [phone] | | [facility] | | [address] | | | - LABORATORY | | [...] [address] | [place] | [phone] | | [facility] | | [address] | | | - LABORATORY | | [...] | | | | | | [employer] | | | | | [...] + | [facility] | [address] | [place] | [phone] | | [facility] | | [address] | | | - LABORATORY | | [...] [address] | [place] | [phone] | | [facility] | | [address] | | | - LABORATORY | | [...] + | [facility] | [address] | [place] | [phone] | | [facility] | | [address] | | | - LABORATORY | | [...] | | | | | results. [employer] | | | | | | [employer] [...] [address] | [place] | [phone] | | [facility] | | [address] | | | - LABORATORY | | [...] [address] | [place] | [phone] | | [facility] | | [address] | | | - LABORATORY | | [...] + | [facility] | [address] | [place] | [phone] | | [facility] | | [address] | | | - LABORATORY | | [...] [address] | [place] | [phone] | | [facility] | | [address] | | | - LABORATORY | | [...] lead | | | | | | [id number] by GEORGES | | | | | | LUCIO HU ([id number]) on | | | | | | [...] [address] | [place] | [phone] | | [facility] | | [address] | | | - LABORATORY | | [...] [address] | [place] | [phone] | | [facility] | | [address] | | | - LABORATORY | | [...] + | [facility] | [address] | [place] | [phone] | | [facility] | | [address] | | | - LABORATORY | | [...] | | | | mmol/L | [facility] | | | | | [...] [address] | [place] | [phone] | | [facility] | | [address] | | | - LABORATORY | | [...] | | | | | | [employer] | | | | | [...] [address] | [place] | [phone] | | [facility] | | [address] | | | - LABORATORY | | [...] + | [facility] | [address] | [place] | [phone] | | [facility] | | [address] | | | - LABORATORY | | [...] [address] | [place] | [phone] | | [facility] | | [address] | | | - LABORATORY | | [...] + | [facility] | [address] | [place] | [phone] | | [facility] | | [address] | | | - LABORATORY | | [...] 449 I | | | Patient Number [id number] Date of Study 05/08/2017 | | | Visit Number [id number] | | | Referring Physician NICOLE TSANG Number Date of | | | 1955 Soil Fertility Extension Specialist [facility] | | | Age 61 year(s) Interpreting | | | JOHNNY JOHNSON MD, | | | Bundle Collector [facility] Gender Female | | | Nurse Stress Print Line Operator | | | Procedure Type of Study [...] Volume: 38.51 ml | | | EF Yyuvwfyvq76% Left | | | Ventricle Diastolic Dimension: [...] | Electronically signed by JOHNNY JOHNSON MD, [facility](Interpreting | | | physician) on [...] Volume: 38.51 ml | | | EF Qiegftkya91% | | | | | | Left [...] Rad Results In - 05/08/2017 4:56 PM [facility] Transthoracic Echocardiography Report | | (TTE) Demographics Patient Name JARED MONTAÑO Room Number 449 | | I Patient Number [id number] Date of Study 05/08/2017 Visit Number | | [id number] Referring Physician NICOLE TSANG Number | | Date of 1955 Soil Fertility Extension Specialist [facility] Age | | 61 year(s) Interpreting JOHNNY JOHNSON MD, | | Bundle Collector FAC Gender Female Nurse | | Stress [...] -- Electronically signed by JOHNNY JOHNSON MD, [facility](Interpreting physician) on | | 05/08/2017 [...] [place] | | Volume: 38.51 ml EF Klmxlbncv02% Left | | Ventricle Diastolic Dimension: 4.9 [...] | Electronically signed by JOHNNY JOHNSON MD, [facility](Interpreting | | physician) on 05/08/2017 [...] [place] Volume: 38.51 ml | | EF Tuhiappln09% | | | | Left Ventricle | [...] + | [facility] | [address] | [place] | [phone] | | [facility] | | [address] | | | - LABORATORY | | [...] | | | | | | [employer] | | | | | [...] [address] | [place] | [phone] | | [facility] | | [address] | | | - LABORATORY | | [...] | | | | mmol/L | [facility] | | | | | [...] [address] | [place] | [phone] | | [facility] | | [address] | | | - LABORATORY | | [...] + | [facility] | [address] | [place] | [phone] | | [facility] | | [address] | | | - LABORATORY | | [...] mL/min/1.73m2 | [facility] | | | LUXEMBOURGER | RATE,ESTIMATED | | MEDICAL | | | | mL/min/1.07y5Gydo than | | CENTER - | | [...] [address] | [place] | [phone] | | [facility] | | [address] | | | - LABORATORY | | [...] [address] | [place] | [phone] | | [facility] | | [address] | | | - LABORATORY | | [...] | | | | LUCIO SU MD ([id number]) | | | | | | on [...] + | [facility] | [address] | [place] | [phone] | | [facility] | | [address] | | | - LABORATORY | | [...] + | [facility] | [address] | [place] | [phone] | | [facility] | | [address] | | | - LABORATORY | | [...] | | | | | | [employer] | | | | | [...] [address] | [place] | [phone] | | [facility] | | [address] | | | - LABORATORY | | [...] [address] | [place] | [phone] | | [facility] | | [address] | | | - LABORATORY | | [...] [address] | [place] | [phone] | | [facility] | | [address] | | | - LABORATORY | | [...] ST. | [address] | [place] | [phone] | | [facility] | | [address] | | | - LABORATORY | | [...] + | [facility] | [address] | [place] | [phone] | | [facility] | | [address] | | | - LABORATORY | | [...]
--- OUTSIDE RECORDS SUMMARY | ~2019-01-22 | XMS | Encounter Summary ---
Demographics + + + | Address | [address] | | | [place] [address] | + + + | Home Phone | | + + + | Preferred Language | Unknown | + + + | Marital Status | | + + + | Yazidism Affiliation | 1028 | + + + [...] | [place] | | | | | [address] | | + + + + + | Mila Desai | ECON | Unknown | | + + + + + Care Team Providers + +------+ + | Care Call Center Operator Name | Role | Phone | [...] + + | 08/30/ | Telephone | [facility] | Shaji Wilson | Other (Appointment) | | 2017 | | SUR[address]ERY [address] | MD Alessandro, [facility] [address] | | | | | [address] [place], [place] | [address] [facility] | | | | | [address] | [place] [address] | | | | | [phone] | [phone] | | | | | | | [...] [place] | | | | | | [address] | | | | | | | | +--------+---------+ + + + documented as of this encounter Visit Diagnoses Not on filedocumented in this encounter"
--- OUTSIDE RECORDS SUMMARY | ~2019-01-22 | XMS | Clinical Summary ---
Demographics + + + | Address | [address] | | | [place] [address] | + + + | Home Phone | | + + + | Preferred Language | Unknown | + + + | Marital Status | Single | + + + | Roman Catholic Affiliation | Unknown | + + + | Race | Unknown | + + + | Ethnic Group | Unknown | + + + Author + + + | Author | [facility] (Historical as of | | | 10-28-18) | + + + | Organization | [facility] (Historical as of | | | 10-28-18) [...] Team Providers + +------+ + | Care Wire Weaver Name | Role | Phone | + [...] + | COPD (chronic obstructive pulmonary disease) ([facility]) | 10/22/2013 | + + + + [...] | | | | | | [place] [address] | | | | | | [phone] | | | | | | | [...] +------+-------+ + | MEDICARE | MEDICA | [id number] | | | [address] | | | RE | | | | [place] [address] | | | IP-OP | | | [...] Self | [birth year] | Home: | [address] | | | al/Fam | | [phone] | [phone] | [place] | | | julito | | | [phone] | [phone] | + +--------+ +--------+ + +
--- OUTSIDE RECORDS SUMMARY | ~2019-01-22 | XMS | Encounter Summary ---
Demographics + + + | Address | [address] | | | [place] [address] | + + + | Home Phone [...] | [place] | | | | | [address] | | + + + + + | Mila Desai | ECON | Unknown | | + + + + + Care Team Providers + +------+ + | Care Sales Enablement Specialist Name | Role | Phone | [...] + + | 12/30/ | Telephone | [facility] | yTree Joyce, | Medication Prior | | 2017 | | PULMONARY [address] | MD [address] | Authorization | | | | [place], | [place] | | | | | [place] [address] | [address] | | | | | [phone] | | | +--------+ + + + [...] [place] | | | | | | [address] | | | | | | | | +--------+---------+ + + + documented as of this encounter Visit Diagnoses Not on filedocumented in this encounter"
--- OUTSIDE RECORDS SUMMARY | ~2019-01-22 | XMS | Encounter Summary ---
Demographics + + + | Address | [address] | | | [place] [address] | + + + | Home Phone | | + + + | Preferred Language | Unknown | + + + | Marital Status | | + + + | Sabianism Affiliation | 1028 | + + + [...] | [place] | | | | | [address] | | + + + + + | Mila Desai | ECON | Unknown | | + + + + + Care Team Providers + +------+ + | Care Glove Turner And Former Name | Role | Phone | + [...] Forrest SMITH | | | | | [phone] | [place] [address] | | +--------+ + + + + [...] | | | | | [place] | | | | | | [address] | | | | | | | [...]
--- OUTSIDE RECORDS SUMMARY | ~2019-01-22 | XMS | Encounter Summary ---
Demographics + + + | Address | [address] | | | [place] [address] | + + + | Home Phone | | + + + | Preferred Language | Unknown | + + + | Marital Status | | + + + | Mosque Affiliation | 1028 | + + + [...] | [place] | | | | | [address] | | + + + + + | Mila Desai | ECON | Unknown | | + + + + + Care Team Providers + +------+ + | Care Warble Saw Operator Name | Role | Phone | [...] + | 09/15/ | Telephone | [facility] | Shaji Wilson | Other | | 2018 | | SURGERY [address] | MD Alessandro, [facility] [address] | | | | | ST [place], [place] | [address] [facility] | | | | | [address] | [place] [address] | | | | | [phone] | [phone] | | | | | | | [...] 06/26/ | Office | Cardiology | Aaron iZmmerman, | | | 2019 | Visit | | MD Katelyn MAGALLON | | | | | | [place] | | | | | | [address] | | | | | | | | +--------+---------+ + + + documented as of this encounter Visit Diagnoses Not on filedocumented in this encounter"
--- OUTSIDE RECORDS SUMMARY | ~2019-01-22 | XMS | Encounter Summary ---
Demographics + + + | Address | [address] | | | [place] [address] | + + + | Home Phone [...] | [place] | | | | | [address] | | + + + + + | Mila Desai | ECON | Unknown | | + + + + + Care Team Providers + +------+ + | Care Podiatric Physician Name | Role | Phone | + [...] Forrest SMITH | | | | | [phone] | [place] [address] | | +--------+ + + + + [...] | | | | | [place] | | | | | | [address] | | | | | | | [...]
--- OUTSIDE RECORDS SUMMARY | ~2019-01-22 | XMS | Encounter Summary ---
Demographics + + + | Address | [address] | | | [place] [address] | + + + | Home Phone [...] | [place] | | | | | [address] | | + + + + + | Mila Desai | ECON | Unknown | | + + + + + Care Team Providers + +------+ + | Care Criminal Justice Lawyer Name | Role | Phone | + [...] Forrest SMITH | | | | | [phone] | [place] [address] | | +--------+ + + + + [...] | | | | | [place] | | | | | | [address] | | | | | | | [...]
--- OUTSIDE RECORDS SUMMARY | ~2019-01-22 | XMS | Encounter Summary ---
Demographics + + + | Address | [address] | | | [place] [address] | + + + | Home Phone [...] | [place] | | | | | [address] | | + + + + + | Mila Desai | ECON | Unknown | | + + + + + Care Team Providers + +------+ + | Care Dredge Pumper Name | Role | Phone | + [...] Forrest SMITH | | | | | [phone] | [place] [address] | | +--------+ + + + + [...] [place] | | | | | | [address] | | | | | | | [...]
--- OUTSIDE RECORDS SUMMARY | ~2019-01-22 | XMS | Encounter Summary ---
Demographics + + + | Address | [address] | | | [place] [address] | + + + | Home Phone [...] | [place] | | | | | [address] | | + + + + + | Mila Desai | ECON | Unknown | | + + + + + Care Team Providers + +------+ + | Care Crop Picker Name | Role | Phone | + [...] | F/U APPT | [address] | [place] [address] | | | | | DR LEVY | [place], | Phone: | | | | | [place] | [place] | [phone] | | | | | 12/30/17 | [address] | Fax: | | | | | | Phone: | [phone] | | | | | | [phone] | | | | | | | Fax: | | | | | | | [phone] | | +--------+--------+ + + + + Encounter Details +--------+---------+ + + + | Date | Type | Department | Care Team | Description | +--------+---------+ + + + | 12/30/ | Office | [facility] | Tyree Joyce, | COPD, moderate (HCC) | | 2018 | Visit | PULMONARY [address] | MD [address] | (Primary Dx); Need | | | | [place], | [place] | for pneumococcal | | | | [place] [address] | [address] | vaccine | | | | [phone] | | | +--------+---------+ + + + [...] information carefully each time. Talk to your bi architect regarding the use of this medicine in children. Special care may be needed. What side effects may I notice from receiving this medicine? Side effects that you should report to your doctor or health gericare aide teacher as soon as p ossible: allergic [...] attention (report to your doctor or health gericare aide teacher if they continue or are bothersome): [...] check ups. 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
--- OUTSIDE RECORDS SUMMARY | ~2019-01-22 | XMS | Encounter Summary ---
Demographics + + + | Address | [address] | | | [place] [address] | + + + | Home Phone | | + + + | Preferred Language | Unknown | + + + | Marital Status | | + + + | Christianity Affiliation | 1028 | + + + | Race | Unknown | + + + | Ethnic Group | Unknown | + + + Author + + + | Author | [facility] | | | and [place] | + + + | Organization | [facility] [...] | [place] | | | | | [address] | | + + + + + | Mila Desai | ECON | Unknown | | + + + + + Care Team Providers + +------+ + | Care Crate Tier Name | Role | Phone | [...] [address] | | | | | [place], | [place] | | | | | [place] [address] | [address] | | | | | [phone] | | | +--------+ + + + [...] [place] | | | | | | [address] | | | | | | | | +--------+---------+ + + + documented as of this encounter Visit Diagnoses Not on filedocumented in this encounter"
--- OUTSIDE RECORDS SUMMARY | ~2019-01-22 | XMS | Encounter Summary ---
Demographics + + + | Address | [address] | | | [place] [address] | + + + | Home Phone [...] | [place] | | | | | [address] | | + + + + + | Mila Desai | ECON | Unknown | | + + + + + Care Team Providers + +------+ + | Care Mobile Application Development Lead Name | Role | Phone | [...] Forrest SMITH | | | | | [phone] | [place] [address] | | +--------+ + + + + [...] | | | | | [place] | | | | | | [address] | | | | | | | [...]
--- OUTSIDE RECORDS SUMMARY | ~2019-01-22 | XMS | Encounter Summary ---
Demographics + + + | Address | [address] | | | [place] [address] | + + + | Home Phone [...] | [place] | | | | | [address] | | + + + + + | Mila Desai | ECON | Unknown | | + + + + + Care Team Providers + +------+ + | Care Motor Racer Name | Role | Phone | + [...] + + | 08/25/ | Telephone | [place] | Riky Rodriguez | Hospital Follow-up | | 2018 | | Internal Medicine | MD [address] | | | | | [address] | | | | | [address] [place], [place] | [place] [address] | | | | | [address] | [phone] | | | | | [phone] | | | +--------+ + + + [...] [place] | | | | | | [address] | | | | | | | | +--------+---------+ + + + documented as of this encounter Visit Diagnoses Not on filedocumented in this encounter"
--- OUTSIDE RECORDS SUMMARY | 2019-01-22 21:34 | XMS ---
PreManage Notification: DANYEL NARANJO Security Retail Account Representative Events No recent Security Events currently on file CRITERIA MET - Group Notification - [facility] - Has Care Guidelines CARE PROVIDERS BRY HARDWICK Internal Medicine 09/29/2017-Current PHONE: Unknown Bry Hardwick Primary Care Current PHONE: [phone] [facility] has no Care Guidelines for this patient. Care History Medical/Surgical 08/25/2017 [facility] - PATIENT CALLED AND RESCHEDULED APT WITH DR HARDWICK IN TO APRIL 20, 2018 . - Patient is currently established with [facility]. If patient is seen in the ED during business hours. Please contact [facility] at [facility] at Ext [phone]. Care Recommendation: This patient has had 5 or more Emergency Department visits in the last 12 months.\T\nbsp; Patient requires education on the scope and purpose of the ED as an acute care provider not a Primary Care Provider and should not be utilized for chronic conditions.\T\nbsp; If patient returns to ED please contact [facility] Worker[facility] at [phone]. These are guidelines and the provider should exercise clinical judgment when providing care. Christofer VISIT COUNT (12 MO.) 3 [place] TOTAL 3 NOTE: Visits indicate total known visits. 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 - Unsp fracture of shaft of left fibula, init for clos fx - Chronic obstructive pulmonary disease, unspecified - Other terminal superintendent (current) drug therapy - Pain in left ankle and joints of left foot - Allergy status to oth drug/meds/biol subst status - Allergy status to penicillin - Other and unspecified ovrexrtn or strnous move/pstr, init - Personal history of nicotine dependence 01/29/2018 17:20 [place] TYPE: Emergency COMPLAINT: - ITCHING/POSS REACTION TO MEDICATION DIAGNOSES: - Allergy status to penicillin - Personal history of nicotine dependence - Allergy, unspecified, initial encounter - Allergy status to other antibiotic agents status - Other terminal superintendent (current) drug therapy - Chronic obstructive pulmonary disease, unspecified - Allergy status to oth drug/meds/biol subst status INPATIENT VISIT TRACKING (12 MO.) No inpatient visits to display in this time frame [id number]
[2019-01-22] MEDS ORDERED: NEURONTIN100 MG PO (21:48)
[2019-01-22] MEDS ORDERED: PROTONIX40 MG PO (23:31)
== END 2019-01-22 23:45 | disposition home or self-care (01) ==
LOC: ED 21:32
DX: R10.13 Epigastric pain (principal); J44.9 Chronic obstructive pulmonary disease, unspecified; Z87.891 Personal history of nicotine dependence; Z88.0 Allergy status to penicillin; Z88.8 Allergy status to other drugs, medicaments and biological substances; Z88.1 Allergy status to other antibiotic agents; Z79.899 Other long term (current) drug therapy; Z79.82 Long term (current) use of aspirin
CPT/HCPCS: 80053; 81001; 83690; 85025; 99284

== ENCOUNTER 2019-06-09 03:29 | Emergency (ER) | payer MEDICARE, MEDICAID ==
[~2019-06-09] VITALS: Ht 165.1 cm; Wt 75.3 kg
[~2019-06-09 03:29] MED LIST changes: +NEURONTIN100 MG PO; +PROTONIX40 MG PO
--- OUTSIDE RECORDS SUMMARY | 2019-06-09 03:32 | XMS ---
PreManage Notification: DANYEL NARANJO Security Reference And Instruction Librarian Events No recent Security Events currently on file CRITERIA MET - Group Notification - [facility] - Has Care Guidelines CARE PROVIDERS BRY HARDWICK Internal Medicine 09/29/2017-Current PHONE: [phone] Bry Hardwick Primary Care Current PHONE: [phone] [facility] has no Care Guidelines for this patient. Care History Medical/Surgical 08/25/2017 [facility] - PATIENT HAS PCP FOLLOW UP APT ON 01/30/[address] HARDWICK. - Patient is currently established with [facility]. If patient is seen in the ED during business hours. Please contact CHWs at [facility] at [phone]. Care Recommendation: This patient has had 5 or more Emergency Department visits in the last 12 months.\T\nbsp; Patient requires education on the scope and purpose of the ED as an acute care provider not a Primary Care Provider and should not be utilized for chronic conditions.\T\nbsp; If patient returns to ED please contact Community Health WorkerYanira at [phone]. These are guidelines and the provider should exercise clinical judgment when providing care. ESumeet VISIT COUNT (12 MO.) 3 YOVANNY [place] TOTAL 3 NOTE: Visits indicate total known visits. ED/UCC VISIT TRACKING (12 MO.) 06/09/2019 03:29 [place] [place] TYPE: Emergency COMPLAINT: - CHEST PAIN 01/22/2019 21:33 [place] [place] TYPE: Emergency COMPLAINT: - NAUSEA,ABDOMINAL PAIN DIAGNOSES: - Allergy status to other drugs, medicaments and biological sub - Epigastric pain - Personal history of nicotine dependence - Other usp (current) drug therapy - FPC (current) use of aspirin - Allergy status to penicillin - Chronic obstructive pulmonary disease, unspecified - Allergy status to other antibiotic agents status 06/27/2018 16:32 [place] [place] TYPE: Emergency COMPLAINT: - LEFT ANKLE PAIN/INJURY DIAGNOSES: - FPC (current) use of aspirin - Unspecified fracture of shaft of left fibula, initial encount - Chronic obstructive pulmonary disease, unspecified - Other termite exterminator helper (current) drug therapy - Pain in left ankle and joints of left foot - Allergy status to other drugs, medicaments and biological sub - Allergy status to penicillin - Other and unspecified overexertion or strenuous movements or - Personal history of nicotine dependence INPATIENT VISIT TRACKING (12 MO.) No inpatient visits to display in this time frame [email or web address]
[2019-06-09] MEDS ORDERED: BREO ELLIPTA I1 EACH INH (04:11)
[2019-06-09] MEDS ORDERED: GABAPENTIN100 MG PO (04:12)
[2019-06-09] MEDS ORDERED: ATORVASTATIN CA40 MG PO (04:12)
[2019-06-09] MEDS ORDERED: ASPIRIN EC81 MG PO (04:12)
[2019-06-09] MEDS ORDERED: METRONIDAZOLE55 GM (04:14)
[2019-06-09] MEDS ORDERED: PREDNISONE20 MG (04:14)
--- NOTE | 2019-06-09 21:02 | EKG ---
[facility] [address] [facility] [place], [place] [address] Signed Normal sinus rhythm with sinus arrhythmia Normal ECG When compared with ECG of 13-SEP-2017 18:15, No significant change was found Confirmed by ANDREE VERAS MD ([id number]) on 06/09/2019 9:01:48 PM Electronically Signed By: ANDREE VERAS MD 06/09/192101 PATIENT NAME: MARCELLADANYEL Electrocardiogram DATE OF : 51 PHYSICIAN: ANDREE VERAS MD REPORT #: [id number] REPORT IS CONFIDENTIAL AND NOT TO BE RELEASED WITHOUT AUTHORIZATION
== END 2019-06-09 05:29 | disposition home or self-care (01) ==
LOC: ED 03:29
DX: R07.9 Chest pain, unspecified (principal); J44.9 Chronic obstructive pulmonary disease, unspecified; Z87.891 Personal history of nicotine dependence; Z88.0 Allergy status to penicillin; Z79.899 Other long term (current) drug therapy
CPT/HCPCS: 71045; 80053; 83735; 84484; 85025; 85610; 93005; 93010; 96374; 99285-25; J2405

== ENCOUNTER 2019-12-07 06:13 | Emergency (ER) | payer MEDICARE, MEDICAID ==
[~2019-12-07] VITALS: Ht 165.1 cm; Wt 75.3 kg
--- OUTSIDE RECORDS SUMMARY | ~2019-12-07 | XMS | Encounter Summary ---
Demographics + + + | Address | [address] | | | [place] [address] | + + + | Home Phone | | + + + | Preferred Language | Unknown | + + + | Marital Status | | + + + | Protestant Affiliation | 1028 | + + + | Race | White | + + + | Ethnic Group | Not or | + + + Author + + + | Author | [facility] | | | and [place] | + + + | Organization | [facility] | | | and [place] | + + + | Address | Unknown | + + + | Phone | Unavailable | + + + Support + + + + + | Name | Relationship | Address | Phone | + + + + + | Joseluis Desai | [place] | [place] | | | | | [address] | | + + + + + | Mila Desai | ECON | Unknown | | + + + + + Care Team Providers + +------+ + | Care Pricing Supervisor Name | Role | Phone | + +------+ + | Bry Vaughn DO | PCP | | + +------+ + Encounter Details +--------+ + + + + | Date | Type | Department | Care Team | Description | +--------+ + + + + | 08/17/ | Hospital | [facility] | Conversion | Diagnosis unknown | | 2018 | Encounter | CONVERSION [address] | Transaction, | | | | | [address] | Provider Unknown | | | | | [place], [place] | [phone] | | | | | [address] | | | | | | [phone] | | | +--------+ + + + [...] on file | | + + + documented as of this encounter Medications at Time of Discharge [...] Description | +--------+---------+ + + + | 01/15/ | Office | Physical Medicine | Dick Maria, | | | 2019 | Visit | and Rehabilitation | MD [address] | | | | | | [place] | | | | | | [address] | | | | | | | | +--------+---------+ + + + documented as of this encounter Procedures + +--------+ + + + | Procedure Name | Priori | Date/Time | Associated Diagnosis | Comments | | | ty | | | | + +--------+ + + + | CT ABDOMEN PELVIS W | Routin | 08/17/2017 | | Results for this | | CONTRAST | e | 3:56 PM | | procedure are in the | | | | PDT | | results section. | + +--------+ + + + documented in this encounter Results CT Abdomen Pelvis w Contrast (08/17/2017 3:56 PM PDT) + + | Specimen | + + | | + + + + + | Narrative | Performed At | + + + | This is a non-reportable procedure without a radiologist report and | | | is used for image storage only | | + + + + + | Procedure Note | + + | Daniel You Jung - 10/25/2018 2:26 PM PDT This is a non-reportable procedure | | without a radiologist report and isused for image storage only | + + documented in this encounter Visit Diagnoses + + | Diagnosis | + + | Diagnosis unknown Other unknown and unspecified cause of morbidity or mortality | + + documented in this encounter"
--- OUTSIDE RECORDS SUMMARY | ~2019-12-07 | XMS | Encounter Summary ---
Demographics + + + | Address | [address] | | | [place] [address] | + + + | Home Phone | | + + + | Preferred Language | Unknown | + + + | Marital Status | | + + + | Mormonism Affiliation | 1028 | + + + | Race | White | + + + | Ethnic Group | Not or | + + + Author + + + | Author | [facility] | | | and [place] | + + + | Organization | [facility] | | | and [place] | + + + | Address | Unknown | + + + | Phone | Unavailable | + + + Support + + + + + | Name | Relationship | Address | Phone | + + + + + | Joseluis Desai | ECON | [place] | | | | | [address] | | + + + + + | Mila Desai | ECON | Unknown | | + + + + + Care Team Providers + +------+ + | Care Casual Shoe Inspector Name | Role | Phone | + +------+ + | Bry Vaughn DO | PCP | | + +------+ + Reason for Visit + +--------+ + | Reason | Onset | Comments | | | Date | | + +--------+ + | Hospital Follow-up | 08/24/ | | | | 2017 | | + +--------+ + Encounter Details +--------+ + + + + | Date | Type | Department | Care Team | Description | +--------+ + + + + | 08/24/ | Telephone | [place] | Riky Rodriguez | Hospital Follow-up | | 2017 | | Internal Medicine | MD [address] | | | | | [address] [facility] | | | | | [address] [place], [place] | [place] [address] | | | | | [address] | [phone] | | | | | [phone] | | | +--------+ + + + [...] this encounter Miscellaneous Notes Telephone Encounter - Brittni Bowling RN - 08/24/2017 12:40 PM PDTCTC qasimo w up call, no answer, no identification on voicemail, will try again. DC sent. Electronicall y signed by: Brittni Bowling RN 08/24/2017 12:40 documented in this encounter Plan of Treatment +--------+---------+ + + + | Date | Type | Specialty | Care Team | Description | +--------+---------+ + + + | 01/15/ | Office | Physical Medicine | Dick Maria, | | | 2019 | Visit | and Rehabilitation | MD [address] | | | | | | [place] | | | | | | [address] | | | | | | | | +--------+---------+ + + + documented as of this encounter Visit Diagnoses Not on filedocumented in this encounter"
--- OUTSIDE RECORDS SUMMARY | ~2019-12-07 | XMS | Encounter Summary ---
Demographics + + + | Address | [address] | | | [place] [address] | + + + | Home Phone | | + + + | Preferred Language | Unknown | + + + | Marital Status | | + + + | Nondenominational Affiliation | 1028 | + + + | Race | White | + + + | Ethnic Group | Not or | + + + Author + + + | Author | [facility] | | | and [place] | + + + | Organization | [facility] | | | and [place] | + + + | Address | Unknown | + + + | Phone | Unavailable | + + + Support + + + + + | Name | Relationship | Address | Phone | + + + + + | Joseluis Desai | [address] | [place] | | | | | [address] | | + + + + + | Mila Desai | ECON | Unknown | | + + + + + Care Team Providers + +------+ + | Care Photographic Technician Name | Role | Phone | + [...] | | | [address] [place] | [place] [address] | | | | | [place] [address] | | | | | | [phone] | | | +--------+ + + + [...] [place] | | | | | | [address] | | | | | | | [...]
--- OUTSIDE RECORDS SUMMARY | ~2019-12-07 | XMS | Encounter Summary ---
Demographics + + + | Address | [address] | | | [place] [address] | + + + | Home Phone [...] + + + | Author | [facility] | | | and [place] | + + + | Organization | [facility] | | | and [place] | + + + | Address | Unknown | + + + | Phone | Unavailable | + + + Support + + + + + | Name | Relationship | Address | Phone | + + + + + | Joseluis Desai | [address] | [place] | | | | | [address] | | + + + + + | Mila Desai | ECON | Unknown | | + + + + + Care Team Providers + +------+ + | Care Lube Worker Name | Role | Phone | [...] | | | [address] [place] | [place] [address] | | | | | [place] [address] | | | | | | [phone] | | | +--------+ + + + [...] [place] | | | | | | [address] | | | | | | | [...]
--- OUTSIDE RECORDS SUMMARY | ~2019-12-07 | XMS | Encounter Summary ---
Demographics + + + | Address | [address] | | | [place] [address] | + + + | Home Phone | | + + + | Preferred Language | Unknown | + + + | Marital Status | | + + + | Worship Affiliation | [id number] | + + + | Race | White | + + + | Ethnic Group | Not or | + + + Author + + + | Author | [facility] | | | and [place] | + + + | Organization | [facility] | | | and [place] | + + + | Address | Unknown | + + + | Phone | Unavailable | + + + Support + + + + + | Name | Relationship | Address | Phone | + + + + + | Joseluis Desai | ECON | [place] | | | | | [id number] | | + + + + + | Mila Desai | ECON | Unknown | | + + + + + Care Team Providers + +------+ + | Care Detention Sergeant Name | Role | Phone | + [...] | | | pulmonary | [address] | | | | | | disease, | [place] | | | | | | unspecified | [place] | | | | | | COPD type | [address] | | | | | | ([facility]) Acute | Phone: | | | | | | on chronic | [phone] | | | | | | respiratory | Fax: | | | | | | failure with | [phone] | | | | | | hypoxia and | | | | | | | hypercapnia | | | | | | | (HCC) | | | +--------+ + + + [...] | | | | | | | ([facility]) sob | | | | | | | medical lab assistant | | | | | | | [...] + + | 05/08/ | Hospital | [facility] | Orlando Wall MD | Chronic obstructive | | 2018 - | Encounter | MED CTR ICU [address] | pulmonary disease, | | | | [place], | [place], [place] | unspecified COPD | | 05/11/ | | [place] [address] | [id number] | type ([facility]); Acute on | | 2018 | | [phone] | | chronic respiratory | | | | | Marcio Boone, | failure with | | | | | MD Narcisa [address] | hypoxia and | | | | | [address] [place] | hypercapnia ([facility]); | | | | | [place] [address] | NSTEMI (non-ST | | | | | [phone] | elevated myocardial | | | | | | infarction) ([facility]); | | | | | | Non-ST elevation | | | | | | myocardial | | | | | | infarction (NSTEMI), | | | | | | type 2 ([facility]) | +--------+ + + + + Social [...] might be differ ent from the original. [place], [place] HOSPITALIST DISCHARGE SUMMARY Pt. Name/Age/: Amy [...] was given by daughter, who reported that patien t has been having some chest and epigastric [...] on discharge day PROCEDURES AND CONSULTS: Procedures [facility] CORONARY ANGIOGRAPHY DOMINANCE: Right LEFT MAIN ARTERY: [...] Internal Medicine Contact information: [address] [facility] [address] [place] [address] Demarcus Jurado MD In 3 weeks. Specialty: Gastroenterology Contact information: [address], [address] [facility] [phone] Condition: Patient being discharged with condition improved Diet: low salt low fat Greater than 30 minutes were spent on discharge and coordination of post-hospital care. Electronically signed by: Narcisa Boone MD, 05/11/2017 7:41 [facility] Portions of this chart may have been created with [employer] voice recognition software. Occasi onal wrong-word or [...] worse Dizziness or weakness Date Last Reviewed: 11/13/201519996851-0665 [employer]. [address] [place] [address]. All righ ts reserved. This information is not intended as a substitute for professional medical care. Always follow your healthcare professional's instructions. AttachmentsThe following attachments cannot be sent through Care Everywhere.Kicking the Smo miguel Habit (Lithuanian)Coronary Artery Disease (CAD), Understanding (Lithuanian)documented in this encounter Medications at Time of [...] Progress Notes Dewey Harris, PharmD - 05/11/2017 12:06 PM Amparo Vangey was admitted for COPD exa cerbation and [...] the above and all questions were answered. [facility] will follow-up with patient in one to two business days. Patient was provided with a billy nciled discharge medication list as part of their AVS instructions. Encouraged patient to sh are medication list with healthcare providers and keep list current. Dewey Harris PharmD 05/11/2017 12:05 Dominique Carrasco RRT - 05/11/2017 10:38 AM PSTFormatting of this note might be different from the lois edgar. Amy walked with me around the the nurse station point lay ira without any supplemental oxygen, h er SpO2 values remained > 93%, H/R 88, Respirations were 18 to 20. 05/11/17 1037 Oxygen Therapy O2 Device room air Home O2 eval performed? yes Resting on RA (%) 95 Exercising on RA (%) 97 Vitals Pulse 89 Resp 20 SpO2 98 % Carmelita Carrasco RRT - 05/11/2017 10:31 AM PSTDibozena walked with me around the nurses station circl e without any supplemental oxygen on, her SpO2 value remained > 93%. [facility] when asked if she was SOB. H/R remained in low 80's, respirations 18 to 20. Electronicall y signed by Carmelita Fulton RRT at 05/11/2017 10:37 AM Narcisa Bojorquez MD - 05/10/2017 7:23 AM PST [facility] TAMIKO SMITH HOSPITALIST PROGRESS NOTE Patient: Amy Coleman : 1955: Age: 61 y.o. MedRec: [id number] Admission date: 05/08/2017 Hospital day # : [...] leads V4-6 Confirmed by GEORGES HU, LUCIO ([id number]) on 05/10/2017 7:08:38 AM POC Glucose Collection [...] Procedure Component Value Units Date/Time Culture, Blood [[id number]] (Normal) Collected: 05/08/17 0145 Order Status: Completed Lab Status: Preliminary result Updated: 05/08/171400 Specimen: Blood from Line Culture No growth: Monitored continually by instrument for 5 days Culture, Blood [[id number]] (Normal) Collected: 05/08/17 0119 Order Status: Completed Lab Status: Preliminary result Updated: 05/08/171400 Specimen: Blood from Peripheral Blood Culture No growth: Monitored continually by instrument for 5 days Culture, MRSA [[id number]] Collected: 05/08/17 0032 Order Status: Completed Lab [...] 24-48 hrs Narcisa Boone MD 05/10/2017 7:23 [facility] Portions of this chart may have been created with [employer] voice recognition software. Occasi onal wrong-word or [...] ECGs available Confirmed by GEORGES HU, LUCIO ([id number]) on 05/08/2017 8:24:47 AM LVEF-TTE TRANSTHORACIC ECHO [...] now inverted in lead V2 Confirmed by GEORGES HU, LUCIO ([id number]) on 05/09/2017 7:21:00 AM MG 05/08/2017 2.3 [...] in the care of this patient. Johnny Jolly MD, 05/09/2017 14:41 Narcisa Bojorquez MD - 05/09/2017 7:18 AM PST [place] HOSPITALIST PROGRESS NOTE Patient: Amy Coleman : 1955: Age: 61 y.o. MedRec: [id number] Admission date: 05/08/2017 Hospital day # : [...] 1616 sodium chloride 0.9% (NS) infusion Intravenous Clinical Quality Assurance Associate Johnny Luther MD sodium chloride 0.9% (NS) [...] Procedure Component Value Units Date/Time Culture, Blood [[id number]] (Normal) Collected: 05/08/17 0145 Order Status: Completed Lab Status: Preliminary result Updated: 05/08/171400 Specimen: Blood from Line Culture No growth: Monitored continually by instrument for 5 days Culture, Blood [[id number]] (Normal) Collected: 05/08/17 0119 Order Status: Completed Lab Status: Preliminary result Updated: 05/08/171400 Specimen: Blood from Peripheral Blood Culture No growth: Monitored continually by instrument for 5 days Culture, MRSA [[id number]] Collected: 05/08/172 Order Status: Sent Lab Status: In process [...] reports feeling malaise with shortness of breath (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 Occasi onal wrong-word or [...] bottles X Pharmacy list names: [facility] [place] X Outside Information Vaccines up to date? [...] per week Marijuana smoke Daily Best possible DIRECTOR OF OFFICIATING medication list after pharmacy review: PT REPORTED [...] Take 1 tablet by mouth Daily. T shirleyg nitroglycerin (NITROSTAT) 0.[address] [...] 1 puff into the lungs Daily. T mehdi Medication review performed and electronically signed by Yolanda Grullon, Production Line Mechanic 15:16 Reviewed by Светлана Mendoza, PharmD 05/08/2017 15:28 Lavinia Peacock Chaplain - 05/08/2017 8:26 AM PST Spiritual Care Amy Coleman is a 61 y.o. female who is admitted for Respiratory failure (HCC) [J96.90]. Spiritual Assessment: Patient was intubated at the time of visit. Suzuwacd-ar-gsj, Raciel, was present and she reported that she is very close to the patient. She and the patient has discussed EOL toget her in the Fjbzxmgz-mt-jme is hoping for recovery for patient. Spiritual [...] can't relax until she knows h er vrclet-mu-jwo will be okay. Will see the patient as requested. If there are any other spiritual care issues that arise, please contact resp therapist. Narcisa Bojorquez MD - 05/08/2017 7:21 AM PSTFormatting of this note might be different from the lois hernández. [place] HOSPITALIST PROGRESS NOTE Patient: Amy Coleman : 1955: Age: 61 y.o. MedRec: [id number] Admission date: 05/08/2017 Hospital day # : [...] injection 2,000-5,000 Units 2,000-5,000 Units Intravenous PRN Michael Wall MD heparin in half-normal saline 50 [...] Titrated Michael Wall MD 12.1 mL/hr at 05/08/1744 30 mcg/kg/min at 05/08/1744 sodium chloride 0.9% [...] Procedure Component Value Units Date/Time Culture, Blood [[id number]] Collected: 05/08/17144 Order Status: Sent Lab Status: In process Updated: 05/08/17152 Specimen: Blood from Line Culture, Blood [[id number]] Collected: 05/08/17118 Order Status: Sent Lab Status: In process Updated: 05/08/17152 Specimen: Blood from Peripheral Blood Culture, MRSA [[id number]] Collected: 05/08/1731 Order Status: Sent Lab Status: [...] arrest, never lost pulse. Transferred from [facility]. Family member at bedside reported patient [...] appreciated Lung: decreased breath sounds in all irggs Abdomen: + BS, Soft, NT, no HSM [...] listed conditions Narcisa Boone MD 05/08/2017 7:21 [facility] Portions of this chart may have been created with [employer] voice recognition software. Occasi onal wrong-word or sound-alike substitutions may have occurred due to the inherent lobo itations of voice recognition software. Please read the chart carefully and recognize, using context, where these substitutions have occurred documented in this encounter H&P Notes Orlando Wall MD - 05/08/2017 12:27 AM PST [facility] HISTORY AND PHYSICAL Pt. Name/Age/: Amy Coleman 61 y.o. 1955 Date of admission: 05/08/2017 Admitting Physician: Orlando Wall MD Primary Care Provider: Bry Vaughn DO CHIEF COMPLAINT: SOB HISTORY OF PRESENT ILLNESS: This is a 61 y.o. female the past medical history significant for COPD, hyperlipidemia who presents with with shortness of breath. Patient is intubated [facility] and rlknafml-cv-yxq at the bedside. This evening patient was complaining of abd ominal pain. She walked up 2 flights of stairs to retrieve some antacids. At the top of th e stairs, patient noted that she was short of breath. Her fpcidboe-rg-dlt states that antonio nt appeared blue. They gave her her inhalers without any improvement in her symptoms. At t he time EMS arrived the patient was severely hypoxic. She is intubated in the field. Patient arrived to outside hospital ED. Workup there revealed hypoxia,hypercarbic respirat ory failure. CT of the chest did not reveal pulmonary embolism Mpmxbvpt-nx-dlj notes that patient has had multiple ED visits for chest pain. PAST MEDICAL and SURGICAL HISTORY: PMH COPD FAMILY HISTORY: Unable to obtain as patient is intubated SOCIAL HISTORY: Chart notes + THC, Former smoker REVIEW OF SYSTEMS: All systems were NOT Reviewed 2nd to intubation HOME MEDICATIONS: Per (er record) Oxybutynin 5 mg bid lipitor 40 mg qd Nitro SL .4 mg Prn wellbutrin XL 150 mg bid mvi qd elliipta 2 puffs Qd ALLERGIES: Allergies not on file VITAL SIGNS: Vitals: 05/08/17 0500 BP: 106/68 Pulse: 85 Resp: 16 Temp: 36.7 C (98.1 F) PHYSICAL EXAMINATION: Gen Chao - somnolent but arousable cooperative and no distress Head - Normocephalic, without obvious abnormality, atraumatic Eyes - PERRL, conjunctiva/corneas clear, EOM's intact both eyes ENT - mucous membranes moist Neck - supple Lungs - CTA bilat Heart - normal rate, rhythm w/o m/r/g Abdomen - obese Normoactive bowel sounds, non-tender non-distended Extremities - no peripheral edema, no clubbing or cyanosis Skin - dry skin Neurologic - somonlent and oriented to person. CN II-XII intact. strength- 5/5 throug hout Moves all extremities DIAGNOSTIC STUDIES: Available data and images were reviewed personally. Significant results and findings are a ddressed here or in the Assessment and Plan. No results found for: HGB, HCT, LABPLAT, PLT, WBC No results found for: NA, K, CL, CO2, CREA, BUN, MG, PHOS, CRP, ESR, BNP No results found for: POCGLU No results found. 13.9 11.7>---------<319 41.5 140|105 |6 <183 3.9| 16| .89 Anion gap 19 Lactic acid 2.5 ast-23 Alt-18 Alk phos 67 Trop .026 ua- unremarkable Urine drug screen + THC, tricylclics Ph 7.08/ 65.5/[address] of chest- no PE, pleural effusion, or consolidation Ct of head- no acute changes EKG- NSR with 1st degree AV block CXR- ET tube above luis alberto, No infiltrates ASSESSMENT and PLAN: Acute hypercarbic hypoxic respiratory failure : mechanical ventilation COPD: Methylprednisone. Duo nebs every 6. Start azithromycin for bronchitis. NSTEMI-patient with rising troponin. This is likely exacerbated by hypoxia. Though patien t has a long history of smoking, obesity, diabetes she may have coronary artery disease. St art heparin GTT. Gave lopressor X 1, lipitor, and asa. Echo pending. Consult cardiology. Diabetes mellitus type II: Sliding scale insulin IVF. Anion-gap metabolic acidosis (lactic acidosis). IVF. NPO DVT Prophylaxis Heparin gtt Code Status Full Code CMS Documentation I certify that this admission will likely be greater than 2 midnights and posthospital disc harge will be to home Total of 72 minutes were required to complete the admission process. Electronically signed by: Orlando Wall MD 05/08/2017 0:28 [facility] documented in this enc ounter Procedure Notes Johnny Jolly MD - 05/09/2017 2:33 PM PSTAssociated Order(s): CV CARDIAC PROCEDUREPre-Pr ocedure Diagnose(s): NSTEMI (non-ST elevated myocardial infarction) (HCC)Post-Procedure Diag nose(s): NSTEMI (non-ST elevated myocardial infarction) (HCC)CARDIAC CATHETERIZATION REPORT DATE OF PROCEDURE: 05/09/17 PRECATHETERIZATION INFORMED CONSENT : Yes TIMEOUT Before start of procedure done: Yes SCANNER OPERATOR: Johnny Jolly M.D., F.A.C.C. PRIMARY PHYSICIAN: Bry Vaughn DO PROCEDURES PERFORMED: Left heart catheterization, selective coronary arteriography INDICATIONS : 61-year-old woman admitted with acute respiratory failure, elevated troponin ARTERIAL ACCESS: Right radial artery 6 Guatemalan CLOSURE DEVICE:. TR band DESCRIPTION OF PROCEDURE: After obtaining informed written consent, the patient was brought to the cardiac catheterization laboratory in stable condition where she was prepped and ortega ped in the usual fashion. Local anesthesia was administered to the right anterior wrist wit h 1% lidocaine. Access to the right radial artery was achieved using a Seldinger technique and a 6 Guatemalan sheath was inserted. 3 mg per mL and 300 g of nitroglycerin were administe red through the side port of the radial artery sheath. 4000 units of intravenous heparin wa s administered. Selective coronary arteriography was performed using a 5 Guatemalan Ole cath eter. The 5 Guatemalan Ole catheter was advanced across the aortic valve without difficulty. Left ventricular pressures and aortic valve pullback pressures were recorded. The right r adial artery sheath was removed using the patent hemostasis technique and a TR band was appl ied with good hemostasis. There were no complications. SEDATION MEDICATIONS: None CONTRAST VOLUME: 57 mL Omnipaque FLUORO TIME: 2.2 minutes; FLUORO DOSE: 220 mGy/cm2 HEMODYNAMICS: LEFT HEART: Left ventricular end diastolic pressure: 25 mmHg Aortic pressure: 146/89 mmHg Aortic Valve Gradient on pullback: 0 mmHg CORONARY ANGIOGRAPHY DOMINANCE: Right LEFT MAIN ARTERY: [...] inhibitor, beta meena, statin therapy, lifestyle modification Johnny Jolly M.D., F.A.C.C. [place] documented in this enc ounter Consult Notes Johnny Jolly MD - 05/08/2017 5:20 PM PST PATIENT NAME: Amy Coleman : 1955: AGE: 61 y.o. ADMISSION DATE: 05/08/2017 HOSPITAL DAY NUMBER: 0 PRIMARY CARE: Bry Vaughn DO REFERRING PROVIDER: Caleb Wall MD CONSULTING PROVIDER: Johnny Jolly MD CARDIOLOGY CONSULTATION DATE OF CONSULTATION: 05/08/17 REASON FOR CONSULT: Acute respiratory failure, troponin elevation consistent with acute non-ST elevation myocar dial infarction HISTORY OF PRESENT ILLNESS: Amy Coleman is a 61 y.o. female was brought to [facility] emergency department via medi cs transport after developing severe shortness of breath walking up stairs at home and then found to be hypoxic requiring emergent endotracheal intubation in the field for ventilatory support. The patient was noted to the hospitalist service in the ICU. CT pulmonary injury and was negative for pulmonary embolism. Initial troponin level was elevated at 2.91 with s ubsequent troponins of 3.93 and 2.73. Initial ECG showed sinus rhythm with nonspecific repo larization abnormality. The patient has a history of ethanol abuse but over the past year o r 2 has switched from alcohol to smoking marijuana. She has a history of chronic obstructiv e lung disease and is a cigarette smoker as well. She has a history of type II diabetes. T he patient is currently intubated and sedated this morning on rounds. Transthoracic echocar diogram shows akinesis of the mid to distal anterior septum and severe hypokinesis of the an terior and anterior apical segments with an overall ejection fraction of 40%. The patient's daughter states that she has complained of chest pain in the past. She was hospitalized i n another facility in December 2016 with chest pain which was felt to be noncardiac. PAST MEDICAL HISTORY History reviewed. No pertinent past medical history. PAST SURGICAL HISTORY History reviewed. No pertinent surgical history. FAMILY HISTORY History reviewed. No pertinent family history. SOCIAL HISTORY Social History Social History Marital status: Spouse name: N/A Number of children: N/A Years of education: N/A Occupational History Not on file. Social History Main Topics Smoking status: Current Every Day Smoker Packs/day: 1.00 Start date: 05/08/1966 Smokeless tobacco: Never Used Comment: Has cut down on sloking Alcohol use Yes Comment: Recovering alcoholic, would consume a box of wine in 2 days Drug use: Yes Types: Marijuana Comment: smokes daily Sexual activity: Not on file Other Topics Concern Not on file Social History Narrative No narrative on file MEDICATIONS: Current Facility-Administered Medications Medication Dose Route Frequency Provider Last Rate Last Dose acetaminophen (TYLENOL) tablet 650 mg 650 mg Oral Q4H PRN Narcisa Boone MD 650 mg at 05/08/17 1522 albuterol-ipratropium (DUONEB) 2.5-0.5 mg/3 mL nebulizer solution 3 mL 3 mL Nebulizati on RT Q6H Orlando Wall MD 3 mL at 05/08/17 1528 aspirin chewable tablet 81 mg 81 mg Oral Daily Johnny Luther MD atorvaSTATin (LIPITOR) tablet 80 mg 80 mg [...] Units/hr Intravenous Titrat ed Orlando Wall MD 12 mL/hr at 05/08/17 1452 600 Units/hr at 05/08/17 1452 insulin lispro (humaLOG KWIKPEN) 100 units/mL injection [...] Orlando Wall MD 60 mg at 05/08/17 1419 ondansetron (ZOFRAN) injection 4 mg 4 mg [...] 1616 sodium chloride 0.9% (NS) infusion Intravenous Continuous Orlando Wall MD 150 mL/hr at 05/08/17 1558 [facility] list of outpatient meds: Prescriptions Prior to Admission Medication Sig Dispense Refill albuterol (VENTOLIN HFA) 90 mcg/puff inhaler Inhale 2 puffs into the lungs every 4 hour s as needed. atorvaSTATin (LIPITOR) 40 mg tablet Take 40 mg by mouth nightly. buPROPion (WELLBUTRIN SR) 150 mg 12 hr tablet Take 150 mg by mouth 2 times daily. carboxymethylcellulose (THERATEARS) 0.25% ophthalmic solution Place 1 drop into both ey es every hour as needed for Dry Eyes. ibuprofen (ADVIL, MOTRIN) 200 mg tablet Take 200 mg by mouth every morning. Multiple Vitamins-Minerals (SENIOR MULTIVITAMIN PLUS) TABS Take 1 tablet by mouth Daily . nitroglycerin (NITROSTAT) 0.[address] 0.4 mg under the tongue every 5 minute s as needed for Chest pain. oxybutynin (DITROPAN) 5 mg tablet Take 5 mg by mouth 2 times daily. propranolol (INDERAL) 80 mg tablet Take 80 mg by mouth Daily. For tremors umeclidinium (INCRUSE ELLIPTA) 62.5 mcg/puff inhaler Inhale 1 puff into the lungs Daily . ALLERGIES Allergies Allergen Reactions Amoxicillin Cephalexin Hydroxyzine Hcl Penicillins Ranitidine Hcl REVIEW OF SYSTEMS The items listed in the history and physical were reviewed and the following updates or arline ndments were found: PHYSICAL EXAM Vital signs: Vitals: 05/08/17 1501 BP: 127/81 Pulse: 106 Resp: 18 Temp: Admit Weight: Weight: 61.5 kg (135 lb 9.3 oz) Current weight: Weight: 61.5 kg (135 lb 9 .3 oz) Body mass index is 23.27 kg/m. General appearance: Sedated and intubated Chest: Decreased breath sounds, no crackles, scattered rhonchi Cardiovascular: Regular rhythm, no S3, jugular venous pressure normal Gastrointestinal Abdomen: soft, non-tender, normal bowel sounds, no organomegaly nor masses. Extremities No edema Skin: Unremarkable LABS: Admission on 05/08/2017 Component Date Value Ref Range Status MG 05/08/2017 1.9 1.8 - 2.5 mg/dL [...] Troponin I 05/08/2017 2.73* <0.06 ng/mL Final Specimen Source 05/08/2017 Artery [...] ECGs available Confirmed by GEORGES HU, LUCIO ([id number]) on 05/08/2017 8:24:47 AM LVEF-TTE TRANSTHORACIC ECHO [...] 05/08/2017 4.1 3.5 - 5.1 mmol/L Final INTERPRETATION TEXT 05/08/2017 Not Confirmed Preliminary MG 05/08/2017 2.3 1.8 - 2.5 mg/dL [...] 05/08/2017 30 22 - 36 seconds Final Glucose, POC 05/08/2017 157* 70 - 109 mg/dL Final IMAGING: Xr [...] Hernandez MD Electronically signed: 05/08/2017 12:37 PM EC04/15/17: Normal sinus rhythm 91 bpm, borderline first-degree AV block, minor nonspeci fic ST and T wave abnormality inferior leads, no comparison ECG DIAGNOSES AND ASSESSMENTS: 1. 61-year-old woman with a history of chest pain and dyspnea, history of chronic obstructi ve lung disease admitted with acute respiratory failure, and elevated troponin levels consis tent with acute non-ST elevation myocardial infarction. The patient had no acute ischemic E CG changes on admission. The patient has evidence of anterior apical and anteroseptal infar ction age unknown. I recommend the patient undergo diagnostic coronary arteriography when s he is extubated. PLAN OR RECOMMENDATIONS: Diagnostic coronary arteriography with possible PCI once extubated Aspirin, beta meena, DONOVAN inhibitor, statin therapy I appreciate the opportunity of participating in the care of this patient. Johnny Jolly MD, 05/08/2017 17:21 documented in this enc ounter Miscellaneous Notes Plan of Care - Soraida Thomas RN - 05/14/2017 9:37 AM PSTLate Entry: Received phone message from [facility] at [facility] on 05/12/17, stating that they are not able to take on this patient. No reasons were given. Electronically signed by: Soraida Thomas RN 05/14/2017 9:39 lan of Care - Braxton Perkins RN - 05/11/2017 5:41 PM PSTProblem: Patient Care Overview (Adult) Goal: Care Team Goals & Evaluation PROBLEM-RELATED GOALS: 2.Amy will maintain adequate oxygenation via oximetry with SpO2 >90% by 05/11/17. 3.Amy will have breath sounds consistent with baseline function throughout stay and rever se airway bronchospasm when indicated. Reevaluate goal by 05/11/17. 4.Amy will eat >75% of low fat and low sodium diet by 05/12/2017 STRATEGY TO ACHIEVE GOALS:+ Administer respiratory medications as ordered and adjust with use of respiratory protocols. Will f/u to adjust menu as needed to help improve overall intake RESTRAINT-RELATED GOALS: STRATEGIES TO ACHIEVE RESTRAINT GOALS: Goal Evaluation: Amy SpO2 97% on RA. K+ 3.4 this AM, PO and IV supplementation giv en. Pt denies pain. Independent in room. States she "feels like she will have a BM today." D/C home with home health via son at 1616. IV removed, catheter intact. New prescriptions faxed to [facility] per MORGAN Quigley. Pt to call [facility] for nebulizer upon arri nessa to home. Pt verbalized understanding. AVS and new prescriptions reviewed per Diana Sotomayor pharmacist. Questions asked and answered, no further questions at this time. lan of Care - Soraida Thomas RN - 05/11/2017 10:25 AM PSTProblem: Discharge Planning Goal: Patient will be discharged in a safe manner Outcome: Goal Achieved Date Met: 05/11/17 Patient is being discharged today and transported back to [place] by a family member. She will not be needing any home 02. This CM met with patient briefly this am to let her know that she has a HH order as well as a nebulizer order and that she will need to merchandise pickup/receiving associate the nebulizer at [facility] in [facility] when they call her today, and they will demonstrate how to use it. Patient had signed the preference form for [facility] for her DME agency choice. This CM called both [facility] and [facility] to let them know of the orders comi ng their way and that patient is being discharged today. Signed preference form, fax transmission's with + fax confirmations placed in ghost chart. Electronically signed by: Soraida Thomas RN 05/11/2017 10:25 15:00 This CM attempted several times, 5 total, to fax the needed info to [facility] but wou ld not go thru even with different faxes, so faxed the order with supporting chart notes to [facility] who in turn will get the order to the [place] office. This nebulizer DME will need to be authed prior to dispensing. As of this time the [place] [facility] had not received it from [facility] so will be patrick ling them know. 15:30 Received call from [place] [facility] and they did get the DME referral now a nd will be getting the auth. They requested that the patient call them when she arrives home and the instructional developerweight caller will deliver and instruct. Gave patient their phone number and instructed her to call when she gets home. [facility] and confirmed they received them. Copies made of the scripts and placed in ghost chart. Patient just discharged a few minutes ago. Electronically signed by: Soraida Thomas RN 05/11/2017 16:41 lan of Care - [facility] Chaplain - 05/11/2017 10:24 AM PSTProblem: Patient Care Overview (Adult) Goal: Care Team Goals & Evaluation PROBLEM-RELATED GOALS: 2.Amy will maintain adequate oxygenation via oximetry with SpO2 >90% by 05/11/17. 3.Amy will have breath sounds consistent with baseline function throughout stay and rever se airway bronchospasm when indicated. Reevaluate goal by 05/11/17. 4.Amy will eat >75% of low fat and low sodium diet by 05/12/2017 STRATEGY TO ACHIEVE GOALS:+ Administer respiratory medications as ordered and adjust with use of respiratory protocols. Will f/u to adjust menu as needed to help improve overall intake RESTRAINT-RELATED GOALS: STRATEGIES TO ACHIEVE RESTRAINT GOALS: Spiritual Care Amy Coleman is a 61 y.o. female who is admitted for Respiratory failure (HCC) [J96.90]. [facility] visit was part of routine rounding. Spiritual Evaluation: Patient was resting in bed; she was awake and alert, and conversational. She smiled and see med happy to have some company. She is excited about discharging to home today, but has only high praise for all the great care she has received while here. She was raised [place], an d although she hasn't attended [employer]uther[employer] in many years maintains a strong personal angel luis - a fa ith that has seen her through some difficult times. She was grateful for the resp therapist visit. Spiritual Interventions: I offered supportive listening, ministry of presence, words of encouragement, and a blessin g as she leaves the hospital and returns home. Spiritual Outcomes: Amy expressed appreciation for the visit, and the friendly company. She is hopeful for a full recovery as she returns home. Spiritual Goals/Follow-up: No follow-up spiritual care is called for as patient will discharge to home imminently. lan of Care - Lynsey Read, JOSEFA - 05/11/2017 6:10 AM PSTProblem: Patient Care Overview (Adult) Goal: Care Team Goals & Evaluation PROBLEM-RELATED GOALS: 2.Amy will maintain adequate oxygenation via oximetry with SpO2 >90% by 05/11/17. 3.Amy will have breath sounds consistent with baseline function throughout stay and rever se airway bronchospasm when indicated. Reevaluate goal by 05/11/17. 4.Amy will eat >75% of low fat and low sodium diet by 05/12/2017 STRATEGY TO ACHIEVE GOALS:+ Administer respiratory medications as ordered and adjust with use of respiratory protocols. Will f/u to adjust menu as needed to help improve overall intake RESTRAINT-RELATED GOALS: STRATEGIES TO ACHIEVE RESTRAINT GOALS: Goal Evaluation: pt took txs as ordered, RA and with sats at 96%. No respiratory distress noted lan of Care - Yulissa Arriaga, JOSEFA - 05/10/2017 6:33 PM PSTProblem: Patient Care Overview (Adult) Goal: Care Team Goals & Evaluation PROBLEM-RELATED GOALS: 2.Amy will maintain adequate oxygenation via oximetry with SpO2 >90% by 05/11/17. 3.Amy will have breath sounds consistent with baseline function throughout stay and rever se airway bronchospasm when indicated. Reevaluate goal by 05/11/17. 4.Amy will eat >75% of low fat and low sodium diet by 05/12/2017 STRATEGY TO ACHIEVE GOALS:+ Administer respiratory medications as ordered and adjust with use of respiratory protocols. Will f/u to adjust menu as needed to help improve overall intake RESTRAINT-RELATED GOALS: STRATEGIES TO ACHIEVE RESTRAINT GOALS: Goal Evaluation: BS decreased with wheeze. She tolerates nebulizer treatments well and has not indicated a ny PRN treatments. SpO2: 95 % on room air lan of Mary Sneed RN - 05/10/2017 5:29 PM PSTProblem: Patient Care Overview (Adult) Goal: Care Team Goals & Evaluation PROBLEM-RELATED GOALS: 2.Amy will maintain adequate oxygenation via oximetry with SpO2 >90% by 05/11/17. 3.Amy will have breath sounds consistent with baseline function throughout stay and rever se airway bronchospasm when indicated. Reevaluate goal by 05/11/17. 4.Amy will eat >75% of low fat and low sodium diet by 05/12/2017 STRATEGY TO ACHIEVE GOALS:+ Administer respiratory medications as ordered and adjust with use of respiratory protocols. Will f/u to adjust menu as needed to help improve overall intake RESTRAINT-RELATED GOALS: STRATEGIES TO ACHIEVE RESTRAINT GOALS: Outcome: Improving Goal Evaluation: Up in chair most of day, BRP's. Ambulated in mancera times one with SB A. [place] tired after walking in mancera but otherwise tolerated activity well. Pain in back and headache now 04/23, no pain Rx requested all shift. Denies nausea. O2 Sat on room air 93-96%. Taking fluids well. FS glucose 93, 113. lan of Raciel Cook RDN - 05/10/2017 1:44 PM PST Problem: Patient Care Overview (Adult) Goal: Care Team Goals & Evaluation PROBLEM-RELATED GOALS: 2.Amy will maintain adequate oxygenation via oximetry with SpO2 >90% by 05/11/17. 3.Amy will have breath sounds consistent with baseline function throughout stay and rever se airway bronchospasm when indicated. Reevaluate goal by 05/11/17. 4.Amy will eat >75% of low fat and low sodium diet by 05/12/2017 STRATEGY TO ACHIEVE GOALS:+ Administer respiratory medications as ordered and adjust with use of respiratory protocols. Will f/u to adjust menu as needed to help improve overall intake RESTRAINT-RELATED GOALS: STRATEGIES TO ACHIEVE RESTRAINT GOALS: Goal Evaluation: NUTRITION THERAPY NOTE (referral received for DM education) Summary: Pt consulted this morning following breakfast. She denies having diabetes theref ore doesn't need MNT for DM. We did discuss cardiac diet issues for which she was already a jo. Intake overall poor a this time but likely to show improvement. Noted DM values 104-1 37 mg/dl. UBW 140 lbs, current weight 136 lbs. Additionally she does not take DM medication . Estimated Energy and Protein Needs: (based on 60 kg) Kcal needs: 1860-9468 Kcals/day Protein needs:60-70 grams of protein/day Fluid goal:6367-4505 cc fluid per day Nutrition Plan of Care: Nutrition Diagnosis: Inadequate protein-energy intake related to poor appetite as evidence d by pt ocmments and I/O showing limited overall intake. She does not take DM medicaton at home and current BG values have ranged beween Interventions: 1. Individualize menu itmes 2. Nutritional supplements tid Nutrition Goals: 1. Improved inake to meet assessed energy and protein needs 2. Stable weight Monitor: 1. Menu adjustments 2. Nutritional supplements F/u in 2 days. Available as needed, ext [phone] Assessment: Diet Order: For your reference, current, active order is: Diet fat and cholesterol modified; sodium restricted 3-4 gm; consistent carbohydrate; Effec tive Now Labs: Recent Labs 05/10/17 0335 05/09/17 0307 05/08/17 1250 05/08/17 0648 NA 138 143 -- 137 K 3.5 4.3 4.1 3.4* CL 106 113* -- 104 BUN 7 7 -- 5* CREA 0.59* 0.53* -- 0.69 ALBUMIN -- 3.4 -- -- MG 2.0 2.2 2.3 -- Anthropometrics: Height: 162.6 cm (5' 4") Weight: 61.7 kg (136 lb 0.4 oz) Wt Readings from Last 3 Encounters: 05/10/17 61.7 kg (136 lb 0.4 oz) Body mass index is 23.35 kg/m. Weight change: -0.5 kg (-1 lb 1.6 oz) First: 61.5 kg (05/08/17 0040)Last: 61.7 kg ( 8 0600)Difference: .2kg Electronically Signed by: RACIEL BOWEN RDN, CDE 05/10/2017 13:34 lan of Care - Lynsey Castro RRT - 05/10/2017 6:11 AM PSTProblem: Patient Care Overview (Adult) Goal: Care Team Goals & Evaluation PROBLEM-RELATED GOALS: 2.Amy will maintain adequate oxygenation via oximetry with SpO2 >90% by 05/11/17. 3.Amy will have breath sounds consistent with baseline function throughout stay and rever se airway bronchospasm when indicated. Reevaluate goal by 05/11/17. STRATEGY TO ACHIEVE GOALS:+ Administer respiratory medications as ordered and adjust with use of respiratory protocols. RESTRAINT-RELATED GOALS: STRATEGIES TO ACHIEVE RESTRAINT GOALS: Goal Evaluation: Pt receiving txs as ordered with mask and coughing up moderate amounts of thick yip secret ions. She is not fond of the nebulizer but does take them when given. She prefers wearing th e oxygen, and is 98% on 1L and doesn't want to try RA. lan of Care - Mary Greene RN - 05/09/2017 5:51 PM PSTProblem: Patient Care Overview (Adult) Goal: Care Team Goals & Evaluation PROBLEM-RELATED GOALS: 2.Amy will maintain adequate oxygenation via oximetry with SpO2 >90% by 05/11/17. 3.Amy will have breath sounds consistent with baseline function throughout stay and rever se airway bronchospasm when indicated. Reevaluate goal by 05/11/17. STRATEGY TO ACHIEVE GOALS:+ Administer respiratory medications as ordered and adjust with use of respiratory protocols. RESTRAINT-RELATED GOALS: STRATEGIES TO ACHIEVE RESTRAINT GOALS: Outcome: Unchanged Goal Evaluation: Heart cath negative for significant blockage. TR band right radial, slowly released air a nd d/c'd at 1700. Frequent site, CMS, pulse checks per protocol. CMS remains intact. No ble eding or hematoma noted. Zofran for nausea times one. Has had few sips of water as oral int marietta today. Complaints of back and headache. Percoset given with good results. Headache now 3/10, backpain 2/10. Very drowsy this afternoon. lan of Care - Jyothi Brooks RRT - 05/09/2017 5:41 PM PSTProblem: Patient Care Overview (Adult) Goal: Care Team Goals & Evaluation PROBLEM-RELATED GOALS: 2.Amy will maintain adequate oxygenation via oximetry with SpO2 >90% by 05/11/17. 3.Amy will have breath sounds consistent with baseline function throughout stay and rever se airway bronchospasm when indicated. Reevaluate goal by 05/11/17. STRATEGY TO ACHIEVE GOALS:+ Administer respiratory medications as ordered and adjust with use of respiratory protocols. RESTRAINT-RELATED GOALS: STRATEGIES TO ACHIEVE RESTRAINT GOALS: Goal Evaluation: Breath sounds are diminished with scattered expiratory wheezes. Patient states improvement with nebulizers. She is now on room air and using her Pep. Continue to address shortness of breath with nebs. Electronically signed by: Jyothi Brooks RRT 05/09/2017 17:41 Matilde Mccann RN - 05/09/2017 1:16 PM PSTTo lab asst at 1305. Episode of 4/10 chest tightness. At 1135. 12 lead EKG with T wave inversion, similar to previous EKG. SL NTG times 3 with tig htness down to 1/10, patient sleeping after IV Morphine 2mg times one. Danni Castro RN - 05/09/2017 7:18 AM PSTReport given to ENRIQUE Hernandez via SBAR format. Questions answered. Electronically s igned by Danni Dejesus RN at 05/09/2017 7:19 AM Danni Castro RN - 2017 6:22 AM PSTDiane has been c/o some SOB this morning, she has also been coughing up alejandra e thick toby/yellow colored secretions, T max 37.3, has received Tylenol for headache overn ight. She was given a breathing tx which she felt did help her SOB some. Telemetry showing s inus arrhythmia this am with rates in the 50's to low 100's. MD notified of telemetry change s. Will continue to monitor. lan of Samara - Lynsey Read RRT - 05/09/2017 5:32 AM PSTProblem: Patient Care Ove rview (Adult) Goal: Care Team Goals & Evaluation PROBLEM-RELATED GOALS: 1 2.Amy will maintain adequate oxygenation via oximetry with SpO2 >90% by 05/11/17. 3.Amy will have breath sounds consistent with baseline function throughout stay and rever se airway bronchospasm when indicated. Reevaluate goal by 05/11/17. STRATEGY TO ACHIEVE GOALS:+ Provide mechanical ventilation and monitor every 2 hours. Monitor Carbon dioxide with End tidal carbon dioxide and/or arterial blood gases.Provide mechanical ventilation and monitor every 2 hours. Monitor Carbon dioxide with End tidal carbon dioxide and/or arterial blood g ases. Administer respiratory medications as ordered and adjust with use of respiratory protocols. RESTRAINT-RELATED GOALS: STRATEGIES TO ACHIEVE RESTRAINT GOALS: Goal Evaluation: pt only took one half of a tx during my shift. She doesn't appear very interested in takin g them, but she was pleasant anyhow. She likes being on the oxygen and is currently on 1L sa tting 96% lan of Care - Danni Dejesus RN - 05/09/2017 5:16 AM PSTProblem: Patient Care Overview (Adult) Goal: Care Team Goals & Evaluation PROBLEM-RELATED GOALS: 1 2.Amy will maintain adequate oxygenation via oximetry with SpO2 >90% by 05/11/17. 3.Amy will have breath sounds consistent with baseline function throughout stay and rever se airway bronchospasm when indicated. Reevaluate goal by 05/11/17. STRATEGY TO ACHIEVE GOALS:+ Provide mechanical ventilation and monitor every 2 hours. Monitor Carbon dioxide with End tidal carbon dioxide and/or arterial blood gases.Provide mechanical ventilation and monitor every 2 hours. Monitor Carbon dioxide with End tidal carbon dioxide and/or arterial blood g ases. Administer respiratory medications as ordered and adjust with use of respiratory protocols. RESTRAINT-RELATED GOALS: STRATEGIES TO ACHIEVE RESTRAINT GOALS: Outcome: Unchanged Goal Evaluation: Amy remains A&O X 4. Overnight she c/o a headache and nausea which was treated with PRN m edications. She was very restless and "uncomfortable" much of the night. VSS, placed on 1 L 02 via NC while sleeping. Has a congested non-productive cough, lungs sound coarse with inte rmittent exp. Wheezes. Continues on Heparin drip, currently at 700 units/hr, last PTT 85. Fo roman with adequate U/O. lan of [facility] - Allie Greene RN - 05/08/2017 6:43 PM PSTProblem: Patient Care Overview (Adult) Goal: Care Team Goals & Evaluation PROBLEM-RELATED GOALS: 1 2.Amy will maintain adequate oxygenation via oximetry with SpO2 >90% by 05/11/17. 3.Amy will have breath sounds consistent with baseline function throughout stay and rever se airway bronchospasm when indicated. Reevaluate goal by 05/11/17. STRATEGY TO ACHIEVE GOALS:+ Provide mechanical ventilation and monitor every 2 hours. Monitor Carbon dioxide with End tidal carbon dioxide and/or arterial blood gases.Provide mechanical ventilation and monitor every 2 hours. Monitor Carbon dioxide with End tidal carbon dioxide and/or arterial blood g ases. Administer respiratory medications as ordered and adjust with use of respiratory protocols. RESTRAINT-RELATED GOALS: STRATEGIES TO ACHIEVE RESTRAINT GOALS: Outcome: Improving Goal Evaluation: Extubated at 1428. Presently on room air with O2 sat of 95%. Taking clear liquids well in itially, ate few bites solid food for supper and threw up. Zofran given for nausea, nausea n ow decreased. Alert and oriented. VSS. Anxious at times. lan [facility] Leydi Johnson RRT - 05/08/2017 5:20 PM PSTProblem: Patient Care Overview (Adult) Goal: Care Team Goals & Evaluation PROBLEM-RELATED GOALS: 1 2.Amy will maintain adequate oxygenation via oximetry with SpO2 >90% by 05/11/17. 3.Amy will have breath sounds consistent with baseline function throughout stay and rever se airway bronchospasm when indicated. Reevaluate goal by 05/11/17. STRATEGY TO ACHIEVE GOALS:+ Provide mechanical ventilation and monitor every 2 hours. Monitor Carbon dioxide with End tidal carbon dioxide and/or arterial blood gases.Provide mechanical ventilation and monitor every 2 hours. Monitor Carbon dioxide with End tidal carbon dioxide and/or arterial blood g ases. Administer respiratory medications as ordered and adjust with use of respiratory protocols. RESTRAINT-RELATED GOALS: STRATEGIES TO ACHIEVE RESTRAINT GOALS: Outcome: Improving Goal Evaluation: Amy was weaned from ventilator today breath sounds are clear SpO2: 98 % on 2liters/minut e nasal cannula treatments remain q6 hours As replacement for inhaler lan of Care - Candy Cavanaugh LICSW - 05/08/2017 5:01 PM PSTDischarge Planning Goal: Pt to be discharged in a safe manner Summary /Intervention: Met with patient and her son, Joseluis,and daughter in law Mila. Pt is sitting up in bed, is alert, well oriented, and appears in good spirits. Amy and her son and daughter in law live together in a 3 story home in [place]. Amy lives on the first floor. She typically is able to manage the steps to the upper luis ors but her main living area is on the first floor. Family is considering installing an intercom system in their home in order to be able to co mmunicate with and check on Amy Reyes is on room air at home. She has "a couple inhalers". She feels she may need supplem ental 02 at home. She sees Bry Vaughn for her primary care provider [facility] in [place] is her preferred pharmacy She intends to go directly home after this hospitalization. Her family appear very support waldemar of this plan. She / they are interested in home health. They know RNs from [facility] in [facility] ( [place] ) and request their visits. Plan: CM to continue to follow Home with family support and home health May need home supplemental 02? Electronically signed by: KIMBERLEE Dewey 05/08/2017 17:02 lan of Care - F Júnior rojas RN - 05/08/2017 8:09 AM PSTProblem: Patient Care Overview (Adult) Goal: Care Team Goals & Evaluation PROBLEM-RELATED GOALS: 1.Will maintain airway and adequate ventilation with use of mechanical ventilator and wean off by 05/11/17. 2.Amy will maintain adequate oxygenation via oximetry with SpO2 >90% by 05/11/17. 3.Amy will have breath sounds consistent with baseline function throughout stay and rever se airway bronchospasm when indicated. Reevaluate goal by 05/11/17. STRATEGY TO ACHIEVE GOALS:+ Provide mechanical ventilation and monitor every 2 hours. Monitor Carbon dioxide with End tidal carbon dioxide and/or arterial blood gases.Provide mechanical ventilation and monitor every 2 hours. Monitor Carbon dioxide with End tidal carbon dioxide and/or arterial blood g ases. Administer respiratory medications as ordered and adjust with use of respiratory protocols. RESTRAINT-RELATED GOALS: STRATEGIES TO ACHIEVE RESTRAINT GOALS: Goal Evaluation: Propofol 30mcg/kg/min. Fentanyl @ 25 mcg/hr. NS @ 150 ml/hr. LS clear diminished. VSS on 6 5% FiO2. Trop 2.91, heparin gtt started, cardiology consulted. Good urine output via winter. Skin intact. Echo this AM documented in this e ncounter Plan of Treatment +--------+---------+ + + + | Date | Type | Specialty | Care Team | Description | +--------+---------+ + + + | 01/15/ | Office | Physical Medicine | Dick Maria, | | | 2019 | Visit | and Rehabilitation | MD Gisele Wilson | | | | | | [place] | | | | | | [id number] | | | | | | | [...] 107 | 70 - 109 mg/dL | [facility] [...] + | [facility] | [address] | [place] | [phone] | | [facility] | | [address] | | | - LABORATORY | | [...] + + + + + + | eGFR, | >60Comment: GLOMERULAR | >=60 | [facility] | | | non- | FILTRATION | mL/min/1.73m2 | [facility] | | | [place] | RATE,ESTIMATED | | MEDICAL | | | | mL/min/1.28p6Nupt than | | CENTER - | | [...] | | | | | mg/dL | [facility] | | | | | | MEDICAL | | | | | | CENTER - | | | | | | LABORATORY | | + + + + + + | BUN/Creatin | 7.5 | | [facility] | | | ine Ratio | | | [facility] | | | [...] [address] | [place] | [phone] | | [facility] | | [address] | | | - LABORATORY | | | | + + + + + Magnesium (05/11/2017 4:55 AM PST) + +-------+ + + + | Component | Value | Ref Range | Performed | Pathologist | | | | | At | Signature | + +-------+ + + + | Magnesium | 1.9 | 1.8 - 2.5 mg/dL | [facility] [...] + | [facility] | [address] | [place] | [phone] | | [facility] | | [address] | | | - LABORATORY | | | | + + + + + CBC with Differential (05/11/2017 4:55 AM PST) + + + + + + | Component | Value | Ref Range | Performed | Pathologist | | | | | At | Signature | + + + + + + | White Blood | 11.6 (H) | 4.0 - 11.0 K/uL | [facility] | | | Cells | | | [facility] | | | | | | MEDICAL | | | | | | CENTER - | | | | | | LABORATORY | | + + + + + + | Red Blood | 4.10 | 3.70 - 5.20 | [facility] | | | Cells | | M/uL | [facility] | | | | | [...] | | Neutrophils | | K/uL | [facility] | [...] | Monocytes | | K/uL | [facility] | | | | | | MEDICAL | | | | | | CENTER - | | | | | | LABORATORY | | + + + + + + | Absolute | 0.00 | 0.00 - 0.40 | [facility] | | | Eosinophils | | K/uL | [facility] | | | | | | MEDICAL | | | | | | CENTER - | | | | | | LABORATORY | | + + + + + + | Absolute | 0.00 | 0.00 - 0.10 | [facility] | | | Basophils | | K/uL | [facility] | [...] + | [facility] | [address] | [place] | [phone] | | [facility] | | [address] | | | - LABORATORY | | [...] [address] | [place] | [phone] | | [facility] | | [address] | | | - LABORATORY | | [...] [address] | [place] | [phone] | | [facility] | | [address] | | | - LABORATORY | | | | + + + + + POC Glucose (05/10/2017 11:30 AM PST) + +-------+ + + + | Component | Value | Ref Range | Performed | Pathologist | | | | | At | Signature | + +-------+ + + + | Glucose, | 93 | 70 - 109 mg/dL | [facility] | [address] | [place] | [phone] | | [facility] | | [address] | | | - LABORATORY | | [...] + + + + + + | White Blood | 17.9 (H) | 4.0 - 11.0 K/uL | [facility] | | | Cells | | | [facility] | | | | | | MEDICAL | | | | | | CENTER - | | | | | | LABORATORY | | + + + + + + | Red Blood | 4.21 | 3.70 - 5.20 | [facility] | | | Cells | | M/uL | [facility] | [...] | MPV | 8.5 | fL | [facility] | | | | | [...] [address] | [place] | [phone] | | [facility] | | [address] | | | - LABORATORY | | [...] 7 | 7 - 18 mg/dL | [facility] | | | | | [facility] | [facility] | | [facility]ICAL | | | | | | CENTER - | | | | | | LABORATORY | | + + + + + + | Creatinine | 0.59 (L) | 0.60 - 1.30 | [facility] | | | | | mg/dL | [facility] | | | | | [facility] | | | | | | CENTER - | | | | | | LABORATORY | | + + + + + + | eGFR, | >60Comment: GLOMERULAR | >=60 | [facility] | | | non- | FILTRATION | mL/min/1.73m2 | [facility] | | | [place] | RATE,ESTIMATED | | MEDICAL | | | | mL/min/1.76k5Xkuv than | | CENTER - | | [...] | | ine Ratio | | | [facility] | | | | | | [...] [address] | [place] | [phone] | | [facility] | | [address] | | | - LABORATORY | | | | + + + + + Magnesium (05/10/2017 3:35 AM PST) + +-------+ + + + | Component | Value | Ref Range | Performed | Pathologist | | | | | At | Signature | + +-------+ + + + | Magnesium | 2.0 | 1.8 - 2.5 mg/dL | [facility] [...] [address] | [place] | [phone] | | [facility] | | [address] | | | - LABORATORY | | | | + + + + + POC Glucose (05/09/2017 9:05 PM PST) + +-------+ + + + | Component | Value | Ref Range | Performed | Pathologist | | | | | At | Signature | + +-------+ + + + | Glucose, | 104 | 70 - 109 mg/dL | [facility] [...] [address] | [place] | [phone] | | [facility] | | [address] | | | - LABORATORY | | | | + + + + + POC Glucose (05/09/2017 4:44 PM PST) + +-------+ + + + | Component | Value | Ref Range | Performed | Pathologist | | | | | At | Signature | + +-------+ + + + | Glucose, | 104 | 70 - 109 mg/dL | [facility] [...] ST. | [address] | [place], [place] | [phone] | | [facility] | | [address] | | | - LABORATORY | | [...] of | | | procedure done: Yes SCANNER OPERATOR: Johnny Jolly M.D., FRafael. | | | PRIMARY PHYSICIAN: Bry Vaughn, PROCEDURES PERFORMED: | | | Left heart catheterization, selective coronary arteriography | | | INDICATIONS : 61-year-old woman admitted with acute respiratory | | | failure, elevated troponin ARTERIAL ACCESS: Right radial artery 6 | | | [place] CLOSURE DEVICE:. TR band DESCRIPTION OF PROCEDURE: [...] | | | technique and a 6 [place] sheath was inserted. 3 mg per mL and 300 | | | g of nitroglycerin were administered through the side port of the | | | radial artery sheath. 4000 units of intravenous heparin was | | | administered. Selective coronary arteriography was performed using | | | a 5 [place] Ole catheter. The 5 [place] Ole catheter was | | | advanced [...] therapy, | | | lifestyle modification Johnny Jolly M.D., F.A.C.C. | | | [facility] | | | [place] | | + + + + +---------+ [...] + | [facility] | [address] | [place] | [phone] | | [facility] | | [address] | | | - LABORATORY | | [...] | | | | | LUCIO HU ([id number]) on | | | | | | [...] [address] | [place] | [phone] | | [facility] | | [address] | | | - LABORATORY | | [...] | | POC | | | [facility] | | | | | | MEDICAL [...] ST. | [address] | [place], [place] | [phone] | | [facility] | | [address] | | | - LABORATORY | | | | + + + + + PTT (05/09/2017 3:07 AM PST) + +--------+ + + + | Component | Value | Ref Range | Performed | Pathologist | | | | | At | Signature | + +--------+ + + + | aPTT | 85 (H) | 22 - 36 seconds | [facility] | | | | | [...] [address] | [place] | [phone] | | [facility] | | [address] | | | - LABORATORY | | [...] [address] | [place] | [phone] | | [facility] | | [address] | | | - LABORATORY | | | | + + + + + Magnesium (05/09/2017 3:07 AM PST) + +-------+ + + + | Component | Value | Ref Range | Performed | Pathologist | | | | | At | Signature | + +-------+ + + + | Magnesium | 2.2 | 1.8 - 2.5 mg/dL | [facility] | | | | | [...] [address] | [place] | [phone] | | [facility] | | [address] | | | - LABORATORY | | [...] 7 | 7 - 18 mg/dL | [facility] | | | | | | [facility] | | | | | | MEDICAL | | | | | | CENTER - | | | | | | LABORATORY | | + + + + + + | Creatinine | 0.53 (L) | 0.60 - 1.30 | [facility] | | | | | mg/dL | [facility] | | | | | | MEDICAL | | | | | | CENTER - | | | | | | LABORATORY | | + + + + + + | eGFR, | >60Comment: GLOMERULAR | >=60 | [facility] | | | non- | FILTRATION | mL/min/1.73m2 | [facility] | | | [place]ian | RATE,ESTIMATED | | MEDICAL | | | | mL/min/1.67k2Vhkp than | | CENTER - | | [...] | | | Protein | | | [facility] | | [...] | bulin Ratio | | | [facility] | [...] [address] | [place] | [phone] | | [facility] | | [address] | | | - LABORATORY | | | | + + + + + CBC with Differential (05/09/2017 3:07 AM PST) + + + + + + | Component | Value | Ref Range | Performed | Pathologist | | | | | At | Signature | + + + + + + | White Blood | 20.2 (H) | 4.0 - 11.0 K/uL | [facility] | | | Cells | | | [facility] | | | | | | MEDICAL | | | | | | CENTER - | | | | | | LABORATORY | | + + + + + + | Red Blood | 4.25 | 3.70 - 5.20 | [facility] | | | Cells | | M/uL | [facility] | [...] | Lymphocytes | | K/uL | [facility] | [...] | 0.00 | 0.00 - 0.10 | [facility] | | | Basophils | | K/uL [...] [address] | [place] | [phone] | | [facility] | | [address] | | | - LABORATORY | | [...] | | | | | | [employer] | | | | | [...] [address] | [place] | [phone] | | [facility] | | [address] | | | - LABORATORY | | | | + + + + + POC Glucose (05/08/2017 9:38 PM PST) + +---------+ + + + | Component | Value | Ref Range | Performed | Pathologist | | | | | At | Signature | + +---------+ + + + | Glucose, | 126 (H) | 70 - 109 mg/dL | [facility] | | | POC | | | [...] + | [facility] | [address] | [place] | [phone] | | [facility] | | [address] | | | - LABORATORY | | [...] [address] | [place] | [phone] | | [facility] | | [address] | | | - LABORATORY | | [...] | | | | | results. [employer] | | | | | | [employer] [...] + + | Performing | Address | City/State/[facility] | Phone Number | | Organization | | | | + + + + + | [facility] | [address] | [place] | [phone] | | [facility] | | [address] | | | - LABORATORY | | [...] + | [facility] | [address] | [place] | [phone] | | [facility] | | [address] | | | - LABORATORY | | [...] [address] | [place] | [phone] | | [facility] | | [address] | | | - LABORATORY | | | | + + + + + POC Blood Gases (05/08/2017 1:30 PM PST) + +--------+ + + + | Component | Value | Ref Range | Performed | Pathologist | | | | | At | Signature | + +--------+ + + + | Specimen | Artery | | [facility] | | | Source | | | [facility] | | [...] + | [facility] | [address] | [place] | [phone] | | [facility] | | [address] | | | - LABORATORY | | [...] lead | | | | | | [id number] by [employer]OR[employer] | | | | | | LUCIO HU ([id number]) on | | | | | | [...] 40.3 | 34.0 - 47.0 % | [facility] | | | | | [...] [address] | [place] | [phone] | | [facility] | | [address] | | | - LABORATORY | | [...] + | [facility] | [address] | [place] | [phone] | | [facility] | | [address] | | | - LABORATORY | | | | + + + + + Magnesium (05/08/2017 12:50 PM PST) + +-------+ + + + | Component | Value | Ref Range | Performed | Pathologist | | | | | At | Signature | + +-------+ + + + | Magnesium | 2.3 | 1.8 - 2.5 mg/dL | [facility] [...] + | [facility] | [address] | [place] | [phone] | | [facility] | | [address] | | | - LABORATORY | | [...] [address] | [place] | [phone] | | [facility] | | [address] | | | - LABORATORY | | [...] | | | | | | [employer] | | | | | [...] [address] | [place] | [phone] | | [facility] | | [address] | | | - LABORATORY | | [...] + | [facility] | [address] | [place] | [phone] | | [facility] | | [address] | | | - LABORATORY | | [...] | Time | | seconds | [facility] | | | | [...] + | [facility] | [address] | [place] | [phone] | | [facility] | | [address] | | | - LABORATORY | | [...] | | Critical Result called | | [facility] | | | | to and read [...] ST. | [address] | [place], [place] | [phone] | | [facility] | | [address] | | | - LABORATORY | | [...] 449 I | | | Patient Number [id number] Date of Study 05/08/2017 | | | Visit Number [id number] | | | Referring Physician NICOLE TSANG Number Date of | | | 1955 Head Operator GIA ROA RDCS | | | Age 61 year(s) Interpreting | | | JOHNNY JOLLY MD, | | | Geological E Logger [facility] Gender Female | | | Nurse Stress Diver'S Tender | | | Procedure Type of Study [...] | | | Signature | | | Electronically signed by JOHNNY JOLLY MD, | | | [facility](Interpreting physician) on 05/08/2017 04:56 | | | PM | | | [...] Volume: 38.51 ml | | | EF Wieathchp85% Left | | | Ventricle Diastolic Dimension: [...] | | | Electronically signed by JOHNNY JOLLY MD, [facility](Interpreting | | | physician) on 05/08/2017 [...] Volume: 38.51 ml | | | EF Ynlqxwkav41% | | | | | | Left [...] Rad Results In - 05/08/2017 4:56 PM PST Transthoracic Echocardiography Report | | (TTE) Demographics Patient Name JARED REYES Room Number 449 | | I Patient Number [id number] Date of Study 05/08/2017 Visit Number | | [id number] Referring Physician NICOLE TSANG Number | | Date of 1955 Head Operator GIA ROA WANDA Age | | 61 year(s) Interpreting JOHNNY JOLLY MD, | | Geological E Logger FAC Gender Female Nurse | | Stress [...] | | -- Electronically signed by JOHNNY JOLLY MD, [facility](Interpreting physician) on | | 05/08/2017 04:56 [...] [place] | | Volume: 38.51 ml EF Zzmvdhnoe33% Left | | Ventricle Diastolic Dimension: 4.9 [...] | | | Electronically signed by JOHNNY JOLLY MD, [facility](Interpreting | | physician) on 05/08/2017 04:56 [...] [place] Volume: 38.51 ml | | EF Tfhazhjot27% | | | | Left Ventricle | [...] + + + + + | [facility] | [address] | [place] | [phone] | | [facility] | | [address] | | | - LABORATORY | | | | + + + + + Troponin I (05/08/2017 6:49 AM PST) + + + + + + | Component | Value | Ref Range | Performed | Pathologist | | | | | At | Signature | + + + + + + | Troponin I | 3.93 ()Comment: | <0.06 ng/mL | [facility] | [...] | | | | | | [employer] | | | | | [...] | | | | | | Hoang Ureña | | | | + + + + + + + + | Specimen | + + | Blood | + + + + + + + | Performing | Address | City/State/Zipcode | Phone Number | | Organization | | | | + + + + + | [facility] | [address] | [place] | [phone] | | [facility] | | [address] | | | - LABORATORY | | [...] [address] | [place] | [phone] | | [facility] | | [address] | | | - LABORATORY | | | | + + + + + CBC no Differential (05/08/2017 6:48 AM PST) + + + + + + | Component | Value | Ref Range | Performed | Pathologist | | | | | At | Signature | + + + + + + | White Blood | 14.6 (H) | 4.0 - 11.0 K/uL | [facility] | | | Cells | | | [facility] | | | | | | MEDICAL | | | | | | CENTER - | | | | | | LABORATORY | | + + + + + + | Red Blood | 4.79 | 3.70 - 5.20 | [facility] | | | Cells | | M/uL | [facility] | | | | | | MEDICAL | | | | | | CENTER - | | | | | | LABORATORY | | + + + + + + | Hemoglobin | 13.3 | 11.5 - 16.0 | [facility] | | | | | g/dL | [facility] | | | | | | [facility]ICAL | | | | | | CENTER - | | | | | | LABORATORY | | + + + + + + | Hematocrit | 40.9 | 34.0 - 47.0 % | [facility] | | | | | | [facility] | | | | | | MEDICAL | | | | | | CENTER - | | | | | | LABORATORY | | + + + + + + | MCV | 85.4 | 83.0 - 101.0 fL | [facility] | | | | | | [facility] | | | | | | MEDICAL | | | | | | CENTER - | | | | | | LABORATORY | | + + + + + + | MCH | 27.8 (L) | 28.0 - 35.0 pg | [facility] | | | | | | [facility] [...] [address] | [place] | [phone] | | [facility] | | [address] | | | - LABORATORY | | [...] | | | | | mg/dL | [facility] | | | | | | MEDICAL | | | | | | CENTER - | | | | | | LABORATORY | | + + + + + + | eGFR, | >60Comment: GLOMERULAR | >=60 | [facility] | | | non- | FILTRATION | mL/min/1.73m2 | [facility] | | | [place] | RATE,ESTIMATED | | MEDICAL | | | | mL/min/1.08g4Hayi than | | CENTER - | | [...] | | | | | mg/dL | [facility] | | | | | | MEDICAL | | | | | | CENTER - | | | | | | LABORATORY | | + + + + + + | BUN/Creatin | 7.2 | | [facility] | | | ine Ratio | | | [facility] | | [...] + | [facility] | [address] | [place] | [phone] | | [facility] | | [address] | | | - LABORATORY | | | | + + + + + PTT (05/08/2017 3:15 AM PST) + +-------+ + + + | Component | Value | Ref Range | Performed | Pathologist | | | | | At | Signature | + +-------+ + + + | aPTT | 26 | 22 - 36 seconds | [facility] [...] + | [facility] | [address] | [place] | [phone] | | [facility] | | [address] | | | - LABORATORY | | [...] | | | | LUCIO SU MD ([id number]) | | | | | | on [...] + | [facility] | [address] | [place] | [phone] | | [facility] | | [address] | | | - LABORATORY | | | | + + + + + Culture, Blood (05/08/2017 1:45 AM PST) + + + + + + | Component | Value | Ref Range | Performed | Pathologist | | | | | At | Signature | + + + + + + | Culture | No growth after 5 days | | [facility] | | | | incubation. | | [facility] | | | [...] + | [facility] | [address] | [place] | [phone] | | [facility] | | [address] | | | - LABORATORY | | | | + + + + + Troponin I (05/08/2017 1:30 AM PST) + + + + + + | Component | Value | Ref Range | Performed | Pathologist | | | | | At | Signature | + + + + + + | Troponin I | 2.91 ()Comment: | <0.06 ng/mL | [facility] | [...] | | | | | | [employer] | | | | | [...] [address] | [place] | [phone] | | [facility] | | [address] | | | - LABORATORY | | | | + + + + + Magnesium (05/08/2017 1:30 AM PST) + +-------+ + + + | Component | Value | Ref Range | Performed | Pathologist | | | | | At | Signature | + +-------+ + + + | Magnesium | 1.9 | 1.8 - 2.5 mg/dL | [facility] [...] + | [facility] | [address] | [place] | [phone] | | [facility] | | [address] | | | - LABORATORY | | [...] | | | | incubation. | | [facility] | | | [...] [address] | [place] | [phone] | | [facility] | | [address] | | | - LABORATORY | | [...] | | | Source | | | [facility] | | [...] [address] | [place] | [phone] | | [facility] | | [address] | | | - LABORATORY | | [...] | chromogenic agar method | | [facility] | | | [...] [address] | [place] | [phone] | | [facility] | | [address] | | | - LABORATORY | | [...] chronic respiratory failure with hypoxia and hypercapnia ([facility]) | + + | NSTEMI (non-ST elevated myocardial infarction) ([facility]) Acute myocardial infarction, | | subendocardial infarction, episode of care unspecified | + + | Non-ST elevation myocardial infarction (NSTEMI), type 2 | + + | Respiratory failure with hypoxia and hypercapnia ([facility]) | + + documented in this encounter [...] 150 mg, Oral, 2 | | 18 8:40 [...] | capsule 100 mg 100 mg, Oral, 8:40 | | | | | TIMES [...] (PF) 5 mcg/mL in | Rate/Dos | 05/08/19 | 25 | 5 mL/hr | | | sodium chloride 0.9% 250 mL | e Change | 18 2:15 | mcg/hr | | | | infusion 25-250 mcg/hr (5-50 | | PM PST | | | | | mL/hr), at 5-50 mL/hr, | | | | | | | Intravenous, TITRATED, Starting | | | | | | | 05/08/17 at 0100, Initial | | | | | | | dose: 25 mgcg/hr, Goal: Pain | | | | | | | score of 0 to 3 | | | | | | + + + +--------+---------+---+ + + +--------+---------+---+ | Rate/Dose Change | 05/08/19 | 40 | 8 mL/hr | | | | 18 11:56 | mcg/hr | | | | | AM PST | | | | + + +--------+---------+---+ | Rate/Dose Change | 05/08/19 | 35 | 7 mL/hr | | | | 18 10:56 | mcg/hr | | | | | AM PST | | | | + + +--------+---------+---+ +---+---+ | | | +---+---+ + +-------+ +--------+---+---+ | heparin 1,000 units/mL | Given | 05/08/19 | 2,000 | | | | injection 2,000-5,000 Units | | 18 9:31 | Units | | | | 2,000-5,000 Units, Intravenous, | | PM PST | | | | | PRN, [...] | | | | seconds: Contact prescriber , | | | | | | + +-------+ +--------+---+---+ +---+---+ | | | +---+---+ + +-------+ +--------+---+---+ | heparin 1,000 units/mL | Given | 05/08/19 | 4,000 | | | | injection 2,000-8,000 Units | | 18 3:35 | Units | | | | 2,000-8,000 Units, Intravenous, | | AM PST | | | | | ONCE, [...] | | | | | max 4000 units), | | | | | | + +-------+ +--------+---+---+ +---+---+ | | | +---+---+ + +-------+ +--------+---+ + | heparin 5,000 units/mL | Given | 05/08/19 | 5,000 | | Abdomen- | | injection 5,000 Units 5,000 | | 18 1:58 | Units | | LLQ | [...] | | | | | dose on 05/10/17 at 0900 | | | | | [...] + +---+---+ | | | +---+---+ + + + + + +---+ | heparin in half-normal saline | Rate/Dos | 05/08/19 | 700 | 14 mL/hr | | | 50 units/mL infusion 0-3,000 | e Change | 18 9:30 | Units/hr | | | | Units/hr (0-60 mL/hr), at 0-60 | | PM PST | | | | | mL/hr, [...] | | | | seconds: Contact prescriber , | | | | | | + + + + + +---+ + + + + +---+ | Restarted | 05/08/19 | 600 | 12 mL/hr | | | | 18 2:52 | Units/hr | | | | | PM PST | | | | + + + + +---+ | New Bag | 05/08/19 | 800 | 16 mL/hr | | | | 18 3:38 | Units/hr | | | | | AM PST | | | | + + + + +---+ +---+---+ | | | +---+---+ + +-------+ +---------+---+ + | insulin lispro (humaLOG | Given | 05/08/19 | 2 Units | | Arm-Righ | | KWIKPEN) 100 units/mL injection | | 18 4:29 | | | t Upper | | (pen) 0-12 Units 0-12 Units, | | PM PST | | | | | Subcutaneous, [...] | | | | | | | , Use DAY DOSE for doses | | | | | | | scheduled: AC, NPO, Daytime | | | | | | | 1259-8896 Use NIGHT DOSE for | | | | | | | doses scheduled: HS, 3AM, | | | | | | | Nighttime 5515-8274, | | | | | | + [...] First dose on 05/09/17 at | | AM PST | | [...] 2 g/50 mL | New Bag | 05/08/19 | 2 g | 25 mL/hr | | | IVPB 2 g 2 g, Intravenous, | | 18 8:07 | | | | | Administer over 120 Minutes, PRN, | | AM PST | | | | | Per [...] | | | infusion rate = 1 gram/hour., | | | | | | + +---------+ +-----+ +---+ +---+---+ | | | +---+---+ + +-------+ +-------+---+---+ | methylPREDNISolone sodium | Given | 05/09/19 | 40 mg | | | | succinate (solu-MEDROL) 40 mg/mL | | 18 3:09 | | | | | injection 40 mg 40 mg, | | PM PST | | | | | Intravenous, EVERY 8 HOURS (3 | | | | | | | times per day), First dose (after | | | | | | | last modification) on Mon | | | | | | | 05/09/17 at 1400, Mix with 1 mL | | | | | | | provided diluent to make 40 | | | | | | | mg/mL., | | | | | | + +-------+ +-------+---+---+ +---+---+ | | | +---+---+ + +-------+ +-------+---+---+ | methylPREDNISolone sodium | Given | 05/10/19 | 40 mg | | | | succinate (solu-MEDROL) 40 mg/mL | | 18 8:17 | | | | | injection 40 mg 40 mg, | | AM PST | | | | | Intravenous, EVERY 24 HOURS | | | | | | | (Daily), First dose (after last | | | | | | | modification) on Tue05/10/17 at | | | | | | | 0900, Mix with 1 mL provided | | | | | | | diluent to make 40 mg/mL., | | | | | | + +-------+ +-------+---+---+ +---+---+ | | | +---+---+ + +-------+ +-------+---+---+ | methylPREDNISolone sodium | Given | 05/09/19 | 60 mg | | | | succinate (solu-MEDROL) 62.5 | | 18 5:55 | | | | | mg/mL injection 60 mg 60 mg, | | AM PST | | | | | Intravenous, EVERY 8 HOURS (3 | | | | | | | times per day), First dose on Sun | | | | | | | 05/08/17 at 0130, Mix with 2 mL | | | | | | | provided diluent to make 62.5 | | | | | | | mg/mL., | | | | | | + +-------+ +-------+---+---+ +-------+ +-------+---+---+ | Given | 05/08/19 | 60 mg | | | | | 18 9:04 | | | | | | PM PST | | | | +-------+ +-------+---+---+ | Given | 05/08/19 | 60 mg | | | | | 18 2:19 | | | | | | PM PST | | | | +-------+ +-------+---+---+ +---+---+ | | | +---+---+ + +-------+ +---------+---+---+ | metoprolol tartrate (LOPRESSOR) | Given | 05/08/19 | 12.5 mg | | | | tablet 12.5 mg 12.5 mg, Per OG | | 18 3:50 | | | | | Tube, ONCE, 05/08/17 at 0400, | | AM PST | | | | | For 1 dose | | | | | | + +-------+ +---------+---+---+ +---+---+ | | | +---+---+ + +-------+ +------+---+---+ | morphine injection 2 mg 2 mg, | Given | 05/09/19 | 2 mg | | | | Intravenous, ONCE, 05/09/17 at | | 18 12:23 | | | | | 1230, For 1 dose | | PM PST | | | [...] + +---+---+ | oxyCODONE-acetaminophen | Given | 05/09/19 | 1 tablet | | | | (PERCOCET) 5-325 mg per tablet 1 | | 18 3:07 | | | | | tablet 1 tablet, Oral, ONCE, Mon | | PM PST | | | | | 05/09/17 at 1515, For 1 dose | | | | | | + +-------+ + +---+---+ +---+---+ | | | +---+---+ + +-------+ + +---+---+ | oxyCODONE-acetaminophen | Given | 05/10/19 | 1 tablet | | | | (PERCOCET) 5-325 mg per tablet | | 18 6:48 | | | | | 1-2 tablet 1-2 tablet, Oral, | | AM PST | | | | | EVERY 4 HOURS PRN, Pain, Starting | | | | | | | 05/09/17 at 4 | | | | | | + +-------+ + +---+---+ +-------+ + +---+---+ | Given | 05/09/19 | 1 tablet | | | | | 18 9:01 | | | | | | PM PST | | | | +-------+ + [...] +-------+---+---+ | pantoprazole (PROTONIX) | Given | 05/09/19 | 40 mg | | | | injection 40 mg 40 mg, | | 18 8:46 | | | | | Intravenous, DAILY, First dose on | | AM PST | | | | | 05/08/17 at 0900, Mix each | | | | | | | 40mg vial with 10 mL NS to make 4 | | | | | | | mg/mL., | | | | | | + +-------+ +-------+---+---+ +-------+ +-------+---+---+ | Given | 05/08/19 | 40 mg | | | | | 18 8:17 | | | | | | AM PST | | | | +-------+ +-------+---+---+ +---+---+ | | | +---+---+ + +-------+ +--------+---+---+ | potassium chloride (K-DUR) ER | Given | 05/11/19 | 20 mEq | | | | tablet 20 mEq 20 mEq, Oral, | | 18 11:13 | | | | | EVERY 2 HOURS, First dose on Wed | | AM PST | | | | | 05/11/17 at 0800, For 2 doses, | | | | | | | Dose is every 2 hours for 2 | | | | | | | doses, OK to substitute liquid | | | | | | | formulation if better tolerated., | | | | | | | | | | | | | + +-------+ +--------+---+---+ +-------+ +--------+---+---+ | Given | 05/11/19 | 20 mEq | | | | | 18 8:40 | | | | | | AM PST | | | | +-------+ +--------+---+---+ +---+---+ | | | +---+---+ + +-------+ +--------+---+---+ | potassium chloride 20 mEq/15 mL | Given | 05/08/19 | 60 mEq | | | | liquid 40-60 mEq 40-60 mEq, | | 18 8:17 | | | | | Feeding Tube, PRN, Per protocol, | | AM PST | | | | | Starting [...] | | | never more than one form., | | | | | | + +-------+ +--------+---+---+ +---+---+ | | | +---+---+ + +---------+ +--------+-------+---+ | potassium chloride 40 mEq in | New Bag | 05/11/19 | 40 mEq | 130 | | | sodium chloride 0.45% 500 mL IVPB | | 18 10:55 | | mL/hr | | | 40 mEq, Intravenous, Administer | | AM PST | | | | | over 4 Hours, ONCE, 05/11/17 | | | | | | | [...] dose on Tue05/11/17 at 0900 | | AM PST | [...] propofol infusion (DIPRIVAN) 10 | Rate/Dos | 05/08/19 | 40 | 16.2 | | | mg/mL infusion 5-100 mcg/kg/min | e Change | 18 11:57 | mcg/kg/m | mL/hr | | | | | AM PST | in | | | | [...] | | | Expires 12 hours after spiked., | | | | | | + + + + +-------+---+ + + + +-------+---+ | Rate/Dose Change | 05/08/19 | 35 | 14.1 | | | | 18 10:00 | mcg/kg/m | mL/hr | | | | AM PST | in | | | + + + +-------+---+ | Rate/Dose Change | 02/25/20 | 40 | 16.2 | | | | 18 9:16 | mcg/kg/m | mL/hr | | | | AM PST | in | | | + + + +-------+---+ + +---+ | | | + +---+ | propofol infusion (DIPRIVAN) 10 | | | mg/mL Starting 05/08/17 at | | | 0028, For 1 dose, JOSE, | | | JANAE: she eckert, | | + +---+ | [...] 0.9% (NS) 1,000 | New Bag | 05/10/19 | | 150 | | | mL with potassium chloride 60 | | 18 5:31 | | mL/hr | | | mEq infusion at 150 mL/hr, | | AM PST | | | | | Intravenous, ONCE, 05/10/17 at | | | | | | | 0530, For 1 dose, Per protocol | | | | | | | from order #[[id number]], | | | | | | + +---------+ +---+-------+---+ +---+---+ | | | +---+---+ + + + +---+ +---+ | sodium chloride 0.9% (NS) | Rate/Dos | 05/11/19 | | 75 mL/hr | | | infusion at 75 mL/hr, | e Change | 18 2:09 | | | | | Intravenous, CONTINUOUS, Starting | | AM PST | | | | | 05/08/17 at 0130 | | | | | | + + + +---+ +---+ +---------+ +---+ +---+ | New Bag | 05/10/19 | | 75 mL/hr | | | | 18 12:52 | | | | | | PM PST | | | | +---------+ +---+ +---+ | New Bag | 05/10/19 | | 150 | | | | 18 4:58 | | mL/hr | | | | AM PST | | | | +---------+ +---+ +---+ +---+---+ | | | +---+---+ + +-------+ +------+---+---+ | zolpidem (AMBIEN) tablet 5 mg | Given | 05/11/19 | 5 mg | | | | 5 mg, Oral, NIGHTLY PRN, | | 18 2:09 | | | | | Insomnia, Starting 05/09/17 at | | AM PST | | [...]
--- OUTSIDE RECORDS SUMMARY | ~2019-12-07 | XMS | Encounter Summary ---
Demographics + + + | Address | [address] | | | [place] [address] | + + + | Home Phone | | + + + | Preferred Language | Unknown | + + + | Marital Status | | + + + | Sikh Affiliation | 1028 | + + + | Race | White | + + + | Ethnic Group | Not or | + + + Author + + + | Author | [facility] | | | and [place] | + + + | Organization | [facility] | | | and [place] | + + + | Address | Unknown | + + + | Phone | Unavailable | + + + Support + + + + + | Name | Relationship | Address | Phone | + + + + + | Joseluis Desai | [address] | [place] | | | | | [address] | | + + + + + | Mila Desai | ECON | Unknown | | + + + + + Care Team Providers + +------+ + | Care Grinding And Spraying Supervisor Name | Role | Phone | [...] | | | [address] | [place] [address] | | | | | [place] [address] | | | | | | [phone] | | | +--------+ + + + [...] [place] | | | | | | [address] | | | | | | | | +--------+---------+ + + + documented as of this encounter Procedures + +--------+ + + + | Procedure Name | Priori | Date/Time | Associated Diagnosis | Comments | | | ty | | | | + +--------+ + + + | XR CHEST 1 VIEW | Routin | 08/16/2017 | | Results for this | | | e | 10:50 PM | | procedure are in the | | | | PDT | | results section. | + +--------+ + + + documented in this encounter Results XR Chest 1 Vw (08/16/2017 10:50 PM PDT) + + | Specimen | [...]
--- OUTSIDE RECORDS SUMMARY | ~2019-12-07 | XMS | Encounter Summary ---
Demographics + + + | Address | [address] | | | [place] [address] | + + + | Home Phone | | + + + | Preferred Language | Unknown | + + + | Marital Status | | + + + | Alevism Affiliation | 1028 | + + + | Race | White | + + + | Ethnic Group | Not or | + + + Author + + + | Author | [facility] | | | and [place] | + + + | Organization | [facility] | | | and [place] | + + + | Address | Unknown | + + + | Phone | Unavailable | + + + Support + + + + + | Name | Relationship | Address | Phone | + + + + + | Joseluis Desai | ECON | [place] | | | | | [address] | | + + + + + | Mila Desai | ECON | Unknown | | + + + + + Care Team Providers + +------+ + | Care Conduit Cleaner Name | Role | Phone | + +------+ + | Bry Vaughn DO | PCP | | + +------+ + Reason for Visit + +--------+ + | Reason | Onset | Comments | | | Date | | + +--------+ + | Hospital Follow-up | 03/01/ | | | | 2017 | | + +--------+ + Encounter Details +--------+ + + + + | Date | Type | Department | Care Team | Description | +--------+ + + + + | 05/12/ | Telephone | [facility] | Dewey Harris, | Hospital Follow-up | | 2018 | | [facility] | PharmD NEED ADDRESS | | | | | [address] | UPDATED | | | | | [place] [address] | | | | | | [phone] | | | +--------+ + + + [...] this encounter Miscellaneous Notes Telephone Encounter - Dewey Harris PharmD - 05/12/2017 2:52 PM PSTHospital Follow-Up Phone Call Date discharged: 05/11/2017 Primary Diagnosis: NSTEMI Education done/topics reviewed: 1. Health Status- the patient feels really well and is resting and the medication is workin g just fine. 2. Diagnosis education- reviewed pts knowledge of primary diagnosis and provided additional education. 3. Medication Reconciliation - Medications reconciled over the phone with patient looking at prescription bottles. 4. Reminded pt of scheduled follow-up appointment. 5. Reviewed what do in emergency as well as a non-emergent situation. Verified pt has doct or's contact information. Date of follow-up appointment with PCP: Appointment with Dr. Vaughn on 05/20/17 @ 4257. Electronically signed by: Dewey Harris PharmD 05/12/2017 15:[address] - Dewey Harris PharmD - 05/12/2017 2:29 PM PSTHospital Follow-Up Phone Call Date discharged: 05/11/2017 Primary Diagnosis: NSTEMI No answer; left message. Will try back tomorrow (05/13/2017). Dewey Harris PharmD documented in is encounter Plan of Treatment +--------+---------+ + + + | Date | Type | Specialty | Care Team | Description | +--------+---------+ + + + | 01/15/ | Office | Physical Medicine | Dick Maria, | | | 2019 | Visit | and Rehabilitation | MD Gisele Wilson | | | | | | [place] | | | | | | [id number] | | | | | | | | +--------+---------+ + + + documented as of this encounter Visit Diagnoses Not on filedocumented in this encounter"
--- OUTSIDE RECORDS SUMMARY | ~2019-12-07 | XMS | Encounter Summary ---
Demographics + + + | Address | [address] | | | [place] [address] | + + + | Home Phone | | + + + | Preferred Language | Unknown | + + + | Marital Status | | + + + | Sikh Affiliation | 1028 | + + + | Race | White | + + + | Ethnic Group | Not or | + + + Author + + + | Author | [facility] | | | and [place] | + + + | Organization | [facility] | | | and [place] | + + + | Address | Unknown | + + + | Phone | Unavailable | + + + Support + + + + + | Name | Relationship | Address | Phone | + + + + + | Joseluis Desai | [address] | [place] | | | | | [address] | | + + + + + | Mila Desai | ECON | Unknown | | + + + + + Care Team Providers + +------+ + | Care Associate Technician Name | Role | Phone | [...] | | | [address] | [place] [address] | | | | | [place] [address] | | | | | | [phone] | | | +--------+ + + + [...] [place] | | | | | | [address] | | | | | | | [...]
--- OUTSIDE RECORDS SUMMARY | ~2019-12-07 | XMS | Encounter Summary ---
Demographics + + + | Address | [address] | | | [place] [address] | + + + | Home Phone | | + + + | Preferred Language | Unknown | + + + | Marital Status | | + + + | Rastafarian Affiliation | 1028 | + + + [...] | [place] | | | | | [address] | | + + + + + | Mila Desai | ECON | Unknown | | + + + + + Care Team Providers + +------+ + | Care Corporate Recruiter Name | Role | Phone | + +------+ + | Bry Vaughn DO | PCP | | + +------+ + Reason for Visit +--------+--------+ + | Reason | Onset | Comments | | | Date | | +--------+--------+ + | Other | 08/30/ | Appointment | | | 2018 | | +--------+--------+ + Encounter Details +--------+ + + + + | Date | Type | Department | Care Team | Description | +--------+ + + + + | 08/30/ | Telephone | [facility] | Shaji Wilson | Other (Appointment) | | 2018 | | SURGERY [address] | MD Alessandro, FACS [address] | | | | | [address] [place], [place] | [address] [facility] | | | | | [address] | [place] [address] | | | | | [phone] | [phone] | | | | | | | [...] this encounter Miscellaneous Notes Telephone Encounter - Maira Brand - 08/30/2017 4:24 PM PDTLeft message for joni collier to return patrick to general surgery regarding an appointment cancelled on 08/31/17 at provider s request. Patient has not been seen by provider before and he has requested to review case prior to scheduling. d ocumented in this encounter Plan of Treatment +--------+---------+ + + + | Date | Type | Specialty | Care Team | Description | +--------+---------+ + + + | 01/15/ | Office | Physical Medicine | Dick Maria | | | 2019 | Visit | and Rehabilitation | MD [address]aquez [address] | | | | | | [place] | | | | | | [address] | | | | | | | | +--------+---------+ + + + documented as of this encounter Visit Diagnoses Not on filedocumented in this encounter"
--- OUTSIDE RECORDS SUMMARY | ~2019-12-07 | XMS | Encounter Summary ---
Demographics + + + | Address | [address] | | | [place] [address] | + + + | Home Phone [...] + + + | Author | [facility] | | | and [place] | + + + | Organization | [facility] | | | and [place] | + + + | Address | Unknown | + + + | Phone | Unavailable | + + + Support + + + + + | Name | Relationship | Address | Phone | + + + + + | Joseluis Desai | ECON | [place] | | | | | [address] | | + + + + + | Mila Desai | ECON | Unknown | | + + + + + Care Team Providers + +------+ + | Care Devulcanizer Tender Name | Role | Phone | + +------+ + | Bry Vaughn DO | PCP | | + +------+ + Reason for Visit +--------+--------+ + | Reason | Onset | Comments | | | Date | | +--------+--------+ + | Other | 08/14/ | formulary change | | | 2018 | | +--------+--------+ + Encounter Details +--------+ + + + + | Date | Type | Department | Care Team | Description | +--------+ + + + + | 08/14/ | Telephone | [facility] | Tyree Joyce, | Other (formulary | | 2018 | | PULMONARY [address] | MD [address] | change) | | | | [place], | [place] | | | | | [place] [address] | [id number] | | | | | [phone] | | | +--------+ + + + [...] Telephone Encounter - Светлана Anguiano RN - 08/14/2018 10:06 AM PDTCalled Amy and advis ed that Dr Joyce is recommending that she change to Breo 100/25 mcg one inhalation once d periy. Okay per patient. Prescription sent to [facility]. elephone Encounter - Светлана Anguiano RN - 08/14/2018 9:02 AM PDTDiane called stating that her insurance sent her a letter stating that they will no longer cover the Dulera and prefers that she change to either Advair or Breo. Amy uses [facility] in [place]. P DTdocumented in this encounter Plan of Treatment +--------+---------+ + + + | Date | Type | Specialty | Care Team | Description | +--------+---------+ + + + | 01/15/ | Office | Physical Medicine | Dick Maria, | | | 2019 | Visit | and Rehabilitation | MD Gisele Ram | | | | | | [place] | | | | | | [address] | | | | | | | | +--------+---------+ + + + documented as of this encounter Visit Diagnoses Not on filedocumented in this encounter"
--- OUTSIDE RECORDS SUMMARY | ~2019-12-07 | XMS | Encounter Summary ---
Demographics + + + | Address | [address] | | | [place] [address] | + + + | Home Phone [...] | [place] | | | | | [address] | | + + + + + | Mila Desai | ECON | Unknown | | + + + + + Care Team Providers + +------+ + | Care Denture Model Maker Name | Role | Phone | + [...] | | | [address] | [place] [address] | | | | | [place] [address] | | | | | | [phone] | | | +--------+ + + + [...] [place] | | | | | | [address] | | | | | | | [...]
--- OUTSIDE RECORDS SUMMARY | ~2019-12-07 | XMS | Encounter Summary ---
Demographics + + + | Address | [address] | | | [place] [address] | + + + | Home Phone | | + + + | Preferred Language | Unknown | + + + | Marital Status | | + + + | Cheondoism Affiliation | 1028 | + + + | Race | White | + + + | Ethnic Group | Not or | + + + Author + + + | Author | [facility] | | | and [place] | + + + | Organization | [facility] | | | and [place] | + + + | Address | Unknown | + + + | Phone | Unavailable | + + + Support + + + + + | Name | Relationship | Address | Phone | + + + + + | Joseluis Desai | ECON | [place] | | | | | [address] | | + + + + + | Mila Desai | ECON | Unknown | | + + + + + Care Team Providers + +------+ + | Care Transportation Maintenance Operator Name | Role | Phone | [...] + + | 09/15/ | Telephone | [facility] | Shaji Wilson | Other | | 2018 | | SURGERY [address] | MD Alessandro, FACS [address] | | | | | [address] [place], [place] | [facility] | | | | | [address] | [place] [address] | | | | | [phone] | [phone] | | | | | | | [...] surgery and/or her primary care provider in [place]. [facility] is aware also. Yamileth at Dr. Vaughn's office let me know that they are planning to s end the patient to a vascular specialist in [facility] and she will let Dr. Blake staff [...] [place] | | | | | | [address] | | | | | | | | +--------+---------+ + + + documented as of this encounter Visit Diagnoses Not on filedocumented in this encounter"
--- OUTSIDE RECORDS SUMMARY | ~2019-12-07 | XMS | Encounter Summary ---
Demographics + + + | Address | [address] | | | [place] [address] | + + + | Home Phone [...] | [place] | | | | | [address] | | + + + + + | Mila Desai | ECON | Unknown | | + + + + + Care Team Providers + +------+ + | Care Family Educator Name | Role | Phone | + [...] | | | | | | | ([facility]) sob | | | | | | | organic lab worker | | | | | | | [...] | Surgery | [facility]IL[facility]ERTO FREIRE | Johnny Jolly MD | CV LHC | | 2018 | | MED CTR CV INTRA OP | [address] | | | | | [address] | [place] | | | | | [place] | [id number] | | | | | [address] | | | | | | [phone] | | | +--------+---------+ + + + [...] + + + | Blood Pressure | 135/88 | 05/09/2017 11:56 AM | | | | | PST | | + + + + + | Pulse | 87 | 05/09/2017 11:56 AM | | | | | PST | | + + + + + | Temperature | 37.2 C (99 F) | 05/09/2017 11:50 AM | | | | | PST | | + + + + + | Respiratory Rate | 15 | 05/09/2017 11:56 AM | | | | | PST | | + + + + + | Oxygen Saturation | 94% | 05/09/2017 11:56 AM | | | | | PST | | + + + + + | Inhaled Oxygen | - | - | | | Concentration | | | | + + + + + | Weight | 62.2 kg (137 lb 2 | 05/09/2017 5:51 AM | | | | oz) | [...] might be differ ent from the original. [facility] [place] HOSPITALIST DISCHARGE SUMMARY Pt. Name/Age/: Amy Coleman [...] on discharge day PROCEDURES AND CONSULTS: Procedures [facility] CORONARY ANGIOGRAPHY DOMINANCE: Right LEFT MAIN [...] week. Specialty: Internal Medicine Contact information: [address] [facility] [address] [place] [address] Demarcus Jurado MD In 3 weeks. Specialty: Gastroenterology Contact information: [address], [address] [place] [address] Condition: Patient being discharged with condition improved Diet: low salt low fat Greater than 30 minutes were spent on discharge and coordination of post-hospital care. Electronically signed by: Narcisa Boone MD, 05/11/2017 7:41 [facility] Portions of this chart may have been created with [employer] voice recognition software. Occasi onal wrong-word or [...] worse Dizziness or weakness Date Last Reviewed: 11/13/201519996151-8499 [employer] [address] [place] [address]. All righ ts reserved. This information is not intended as a substitute for professional medical care. Always follow your healthcare professional's instructions. AttachmentsThe following attachments cannot be sent through Care Everywhere.Kicking the Smo miguel Habit (Malaysian)Coronary Artery Disease (CAD), Understanding (Malaysian)documented in this encounter Medications at Time of [...] Dewey Harris PharmD 05/11/2017 12:05 Dominique Carrasco, LIVESTOCK PRODUCER - 05/11/2017 10:38 AM PSTFormatting of this note might be different from the lois ginal. Amy walked with me around the the nurse station [place] without any supplemental oxygen, h er SpO2 values remained > 93%, H/R 88, Respirations were 18 to 20. 05/11/17 1037 Oxygen Therapy O2 Device room air Home O2 eval performed? yes Resting on RA (%) 95 Exercising on RA (%) 97 Vitals Pulse 89 Resp 20 SpO2 98 % Carmelita Carrasco, JOSEFA - 05/11/2017 10:31 AM PSTAmy walked with me around the nurses station circl e without any supplemental oxygen on, her SpO2 value remained > 93%. No SOB observed pt [facility] ed when asked if she was SOB. H/R remained in low 80's, respirations 18 to 20. Electronicall y signed by Carmelita Fulton RRT at 05/11/2017 10:37 AM Narcisa Bojorquez MD - 05/10/2017 7:23 AM PST [facility] [place] HOSPITALIST PROGRESS NOTE Patient: Amy Coleman : 1955: Age: 61 y.o. MedRec: [id number] Admission date: 05/08/2017 Hospital day # : [...] leads V4-6 Confirmed by GEORGES HU, LUCIO ([id number]) on 05/10/2017 7:08:38 AM POC Glucose Collection [...] Procedure Component Value Units Date/Time Culture, Blood [[id number]] (Normal) Collected: 05/08/17 0145 Order Status: Completed Lab Status: Preliminary result Updated: 05/08/17 140 Specimen: Blood from Line Culture No growth: Monitored continually by instrument for 5 days Culture, Blood [[id number]] (Normal) Collected: 05/08/17 0119 Order Status: Completed Lab Status: Preliminary result Updated: 05/08/171400 Specimen: Blood from Peripheral Blood Culture No growth: Monitored continually by instrument for 5 days Culture, MRSA [[id number]] Collected: 05/08/1731 Order Status: Completed Lab Status: Final result Updated: 05/09/17821 Specimen: Respiratory from Nares Culture Negative for [...] 24-48 hrs Narcisa Boone MD 05/10/2017 7:23 [facility] Portions of this chart may have been created with Nouvola voice recognition software. Occasi onal wrong-word or [...] tina Wall MD 2,000 Units at 05/08/17 213 heparin in half-normal saline 50 units/mL infusion [...] ECGs available Confirmed by LUCIO SU MD ([id number]) on 05/08/2017 8:24:47 AM LVEF-TTE TRANSTHORACIC ECHO [...] lead V2 Confirmed by LUCIO SU MD ([id number]) on 05/09/2017 7:21:00 AM MG 05/08/2017 2.3 [...] Bojorquez MD - 05/09/2017 7:[address] [facility] [place] HOSPITALIST PROGRESS NOTE Patient: Amy Coleman : 1955: Age: 61 y.o. MedRec: [id number] Admission date: 05/08/2017 Hospital day # : [...] S tina Wall MD 2,000 Units at 02/25/18 2131 heparin in half-normal saline 50 units/mL infusion 0-3,000 Units/hr Intravenous Titrat ed Orlando Wall MD 14 mL/hr at 05/08/172129 700 Units/hr at 05/08/172129 insulin lispro (humaLOG KWIKPEN) 100 units/mL injection [...] mg Int ravenous 3 times per day Olrando Wall MD 60 mg at 05/09/17 0555 nicotine (NICODERM) 21 mg/24 hr 1 patch 1 patch Transdermal Daily PRN Grace Brooks D ondansetron (ZOFRAN) injection 4 mg 4 mg [...] 1616 sodium chloride 0.9% (NS) infusion Intravenous Track Manager Johnny Luther MD sodium chloride 0.9% (NS) [...] 36 seconds Hemoglobin and Hematocrit Collection Time: 02/25/18 12:50 Result Value Ref Range Hgb 13.1 [...] Procedure Component Value Units Date/Time Culture, Blood [[id number]] (Normal) Collected: 05/08/17 0145 Order Status: Completed Lab Status: Preliminary result Updated: 05/08/171400 Specimen: Blood from Line Culture No growth: Monitored continually by instrument for 5 days Culture, Blood [[id number]] (Normal) Collected: 05/08/17 0119 Order Status: Completed Lab Status: Preliminary result Updated: 05/08/171400 Specimen: Blood from Peripheral Blood Culture No growth: Monitored continually by instrument for 5 days Culture, MRSA [[id number]] Collected: 05/08/1731 Order Status: Sent Lab Status: [...] reports feeling malaise with shortness of breath (buffer chrome marla - not worse than baseline), headache [...] possible PCI Narcisa Boone MD 05/09/2017 7:18 [facility] Portions of this chart may have been created with Nouvola voice recognition software. Occasi onal wrong-word or [...] bottles X Pharmacy list names: [facility] [place] X Outside Information Vaccines up to date? [...] per week Marijuana smoke Daily Best possible TENTMAKER medication list after pharmacy review: PT REPORTED [...] performed and electronically signed by Yolanda Grullon, Cash Application Representative 15:16 Reviewed by Светлана Mendoza, PharmD 05/08/2017 15:28 Lavinia Peacock Chaplain - 05/08/2017 8:26 AM [facility] Spiritual Care Amy Coleman is a 61 y.o. female who is admitted for Respiratory failure ([facility]) [J96.90]. Spiritual Assessment: Patient was intubated at the time of visit. Ezecnahc-sb-iyz, Raciel, was present and she reported that she is very close to the patient. She and the patient has discussed EOL toget her in the Chzatvzk-xd-mrk is hoping for recovery for patient. Spiritual [...] can't relax until she knows h er bcflug-vj-grd will be okay. Will see the patient as requested. If there are any other spiritual care issues that arise, please contact visual artist. Narcisa Bojorquez MD - 05/08/2017 7:21 AM PSTFormatting of this note might be different from the lois ginal. [place], [place] HOSPITALIST PROGRESS NOTE Patient: Amy Coleman : 1955: Age: 61 y.o. MedRec: [id number] Admission date: 05/08/2017 Hospital day # : [...] at 05/08/17601 Current Infusions: fentaNYL 75 mcg/hr (05/08/17 0707) [...] Procedure Component Value Units Date/Time Culture, Blood [[id number]] Collected: 05/08/17 0145 Order Status: Sent Lab Status: In process Updated: 05/08/17152 Specimen: Blood from Line Culture, Blood [[id number]] Collected: 05/08/17118 Order Status: Sent Lab Status: In process Updated: 05/08/17152 Specimen: Blood from Peripheral Blood Culture, MRSA [[id number]] Collected: 05/08/1731 Order Status: Sent Lab Status: [...] arrest, never lost pulse. Transferred from [facility]. Family member at bedside reported [...] listed conditions Narcisa Boone MD 05/08/2017 7:21 [facility] Portions of this chart may have been created with Nouvola voice recognition software. Occasi onal wrong-word or sound-alike substitutions may have occurred due to the inherent lobo itations of voice recognition software. Please read the chart carefully and recognize, using context, where these substitutions have occurred documented in this encounter H&P Notes Orlando Wall MD - 05/08/2017 12:27 AM PST [facility] HISTORY AND PHYSICAL Pt. Name/Age/: Amy Coleman 61 y.o. 1955 Date of admission: 05/08/2017 Admitting Physician: Orlando Wall MD Primary Care Provider: Bry Vaughn DO CHIEF COMPLAINT: SOB HISTORY OF PRESENT ILLNESS: This is a 61 y.o. female the past medical history significant for COPD, hyperlipidemia who presents with with shortness of breath. Patient is intubated history obtained from the [facility] record and qdteptcy-ft-hmn at the bedside. This evening patient was complaining of abd ominal pain. She walked up 2 flights of stairs to retrieve some antacids. At the top of th e stairs, patient noted that she was short of breath. Her bawniahg-to-fev states that patie nt appeared blue. They gave her her inhalers without any improvement in her symptoms. At t he time EMS arrived the patient was severely hypoxic. She is intubated in the field. Patient arrived to outside hospital ED. Workup there revealed hypoxia,hypercarbic respirat ory failure. CT of the chest did not reveal pulmonary embolism Taomvmxw-uf-zmn notes that patient has had multiple ED [...] This is likely exacerbated by hypoxia. Though joni collier has a long history of smoking, obesity, [...] signed by: Orlando Wall MD 05/08/2017 0:28 [facility] documented in this enc ounter Procedure Notes Johnny Jolly MD - 05/09/2017 2:33 PM PSTAssociated Order(s): CV CARDIAC PROCEDUREPre-Pr ocedure Diagnose(s): NSTEMI (non-ST elevated myocardial infarction) (HCC)Post-Procedure Diag nose(s): NSTEMI (non-ST elevated myocardial infarction) (HCC)CARDIAC CATHETERIZATION REPORT DATE OF PROCEDURE: 05/09/17 PRECATHETERIZATION INFORMED CONSENT : Yes TIMEOUT Before start of procedure done: Yes PONY EDGER: Johnny Jolly M.D., F.A.C.C. PRIMARY PHYSICIAN: Bry Vaughn DO PROCEDURES PERFORMED: Left heart catheterization, selective coronary arteriography INDICATIONS : 61-year-old woman admitted with acute respiratory failure, elevated troponin ARTERIAL ACCESS: Right radial artery 6 Montserratian CLOSURE DEVICE:. TR band DESCRIPTION OF PROCEDURE: After obtaining informed written consent, the patient was brought to the cardiac catheterization laboratory in stable condition where she was prepped and ortega ped in the usual fashion. Local anesthesia was administered to the right anterior wrist wit h 1% lidocaine. Access to the right radial artery was achieved using a Seldinger technique and a 6 Montserratian sheath was inserted. 3 mg per mL and 300 g of nitroglycerin were administe red through the side port of the radial artery sheath. 4000 units of intravenous heparin wa s administered. Selective coronary arteriography was performed using a 5 Montserratian Ole cath eter. The 5 Montserratian Ole catheter was advanced across the aortic [...] therapy, lifestyle modification Johnny Jolly M.D., F.A.C.C. Catalog Library Assistant [place], [place] documented in this enc ounter Consult [...] a 61 y.o. female was brought to [place] emergency department via medi cs transport after [...] in the past. She was hospitalized i another facility in December 2016 with chest [...] Wall MD 150 mL/hr at 05/08/17 1558 [facility] list of outpatient meds: Prescriptions [...] ECGs available Confirmed by GEORGES HU, LUCIO ([id number]) on 05/08/2017 8:24:47 AM LVEF-TTE TRANSTHORACIC ECHO [...] AM PSTLate Entry: Received phone message from [facility] in [place], on 05/12/17, stating that they are not [...] being discharged today and transported back to [place] by a family member. She will not be needing any home 02. This CM met with patient briefly this am to let her know that she has a HH order as well as a nebulizer order and that she will need to forklift picker the nebulizer at [facility] in [facility] when they call her today, and they will demonstrate how to use it. Patient had signed the preference form for [facility] for her DME agency choice. This CM called both [facility] and [facility] to let them know of the [...] the order with supporting chart notes to [place] [facility] who in turn will get the order to the [place] office. This nebulizer DME will need to be authed prior to dispensing. As of this time the [place] [facility] had not received it from [place] so will be patrick ling them know. 15:30 Received call from [place] [facility] and they did get the DME referral now a nd will be getting the auth. They requested that the patient call them when she arrives home and the staff electronic warfare officerpersonal injury legal assistant will deliver and instruct. Gave patient their phone number and instructed her to call when she gets home. Also faxed the new scripts for patient to [facility] per her request and confirmed they received [...] female who is admitted for Respiratory failure ([facility]) [J96.90]. Trauma Doctor visit was part of routine rounding. Spiritual Evaluation: Patient was resting in bed; she was awake and alert, and conversational. She smiled and see med happy to have some company. She is excited about discharging to home today, but has only high praise for all the great care she has received while here. She was raised [place], an d although she hasn't attended muslim in many years maintains a strong personal angel luis - a fa ith that has seen her through some difficult times. She was grateful for the visual artist visit. Spiritual Interventions: I offered supportive listening, [...] will discharge to home imminently. lan of Samara - Lynsey Read RRT - 05/11/2017 6:10 AM PSTProblem: Patient Care [...] distress noted lan of Care - Yulissa Arriaga RRT - 05/10/2017 6:33 PM PSTProblem: Patient Care [...] 95 % on room air lan of Care - Mary Greene RN - 05/10/2017 5:29 PM PSTProblem: Patient [...] in mancera times one with SB A. [place] tired after walking in mancera but otherwise tolerated activity well. Pain in back and headache now 04/23, no pain Rx requested all shift. Denies nausea. O2 Sat on room air 93-96%. Taking fluids well. FS glucose 93, 113. lan of Care - Raciel Albarran RDN - 05/10/2017 1:44 PM PST Problem: [...] Needs: (based on 60 kg) Kcal needs: 5280-5754 Kcals/day Protein needs:60-70 grams of protein/day Fluid goal:1411-4819 cc fluid per day Nutrition Plan of [...] in 2 days. Available as needed, ext [phone] Assessment: Diet Order: For your reference, current, [...] 8 0600)Difference: .2kg Electronically Signed by: RACIEL ALBARRAN RDN, CDE 05/10/2017 13:34 lan of Care - Lynsey Castro, LIVESTOCK PRODUCER - 05/10/2017 6:11 AM PSTProblem: Patient Care Overview (Adult) Goal: Care Team Goals & Evaluation PROBLEM-RELATED GOALS: 2.Amy will maintain adequate oxygenation via oximetry with SpO2 >90% by 05/11/17. 3.Amy will have breath sounds consistent with baseline function throughout stay and rever se airway bronchospasm when indicated. Reevaluate goal by 2/28/18. STRATEGY TO ACHIEVE GOALS:+ Administer respiratory medications [...] doesn't want to try RA. lan of [facility] - Mary Greene RN - 05/09/2017 5:51 [...] 2/10. Very drowsy this afternoon. lan of Jyothi Briceño RRT - 05/09/2017 5:41 PM PSTProblem: Patient [...] signed by: Jyothi Brooks RRT 05/09/2017 17:41 eIGLENNA Shrestha - Matilde Greene RN - 05/09/2017 1:16 PM PSTTo laboratory cureman at 1305. Episode of 4/10 chest tightness. At 1135. 12 lead EKG with T wave inversion, similar to previous EKG. SL NTG times 3 with tig htness down to 03/23, patient sleeping after IV Morphine 2mg times one. Giuliano Shrestha - Danni Dejesus RN - 05/09/2017 7:18 AM PSTReport given [...] s. Will continue to monitor. lan of Care - Lynsey Read RRT - 05/09/2017 5:32 [...] on 1L sa tting 96% lan of Danni Barr RN - 05/09/2017 5:16 AM PSTProblem: Patient [...] 85. Fo roman with adequate U/O. lan Allie León RN - 05/08/2017 6:43 PM PSTProblem: Patient [...] and oriented. VSS. Anxious at times. lan of [facility] - Leydi Johnson RRT - 05/08/2017 5:20 PM [...] inhaler lan of Care - Candy Cavanaugh [facility] - 05/08/2017 5:01 PM PSTDischarge Planning Goal: Pt to be discharged in a safe manner Summary /Intervention: Met with patient and her son, Joseluis,and daughter in law Mila. Pt is sitting up in bed, is alert, well oriented, and appears in good spirits. Amy and her son and daughter in law live together in a 3 story home in [place]. Amy lives on the first floor. She [...] for her primary care provider [facility] in [place] is her preferred pharmacy She intends to go directly home after this hospitalization. Her family appear very support waldemar of this plan. She / they are interested in home health. They know RNs from [facility] in [facility] ( [place] ) and request their visits. Plan: CM to continue to follow Home with family support and home health May need home supplemental 02? Electronically signed by: KIMBERLEE Dewey 05/08/2017 17:02 lan of Care - Júnior Bryan RN - 05/08/2017 8:09 AM PSTProblem: Patient [...] [place] | | | | | | [id number] | | | | | | | [...] [address] | [place] | [phone] | | [facility] | | [address] | | | - LABORATORY | | [...] (L) | 7 - 18 mg/dL | [facility] | | | | | | [facility] | | | | | | MEDICAL | | | | | | CENTER - | | | | | | LABORATORY | | + + + + + + | Creatinine | 0.67 | 0.60 - 1.30 | [facility] | | | | | mg/dL | [facility] | | | | | | MEDICAL | | | | | | CENTER - | | | | | | LABORATORY | | + + + + + + | eGFR, | >60Comment: GLOMERULAR | >=60 | [facility] | | | non- | FILTRATION | mL/min/1.73m2 | [facility] | | | [place] | RATE,ESTIMATED | | MEDICAL | | | | mL/min/1.66p7Hmnw than | | CENTER - | | [...] [address] | [place] | [phone] | | [facility] | | [address] | | | - LABORATORY | | [...] + + + + + | [facility] | [address] | [place] | [phone] | | [facility] | | [address] | | | - LABORATORY | | [...] | | Cells | | M/uL | . [facility] | | | | | | MEDICAL | | | | | | CENTER - | | | | | | LABORATORY | | + + + + + + | Hemoglobin | 11.6 | 11.5 - 16.0 | [facility] | | | | | g/dL | [facility] | | | | | [...] [facility] | | | Basophils | | K/Mark Anthony | [facility] | | | | [...] [address] | [place] | [phone] | | [facility] | | [address] | | | - LABORATORY | | [...] + | [facility] | [address] | [place] | [phone] | | [facility] | | [address] | | | - LABORATORY | | [...] + | [facility] | [address] | [place] | [phone] | | [facility] | | [address] | | | - LABORATORY | | [...] | | | POC | | | [facility] | | | | | | MEDICAL [...] | + + + + + | [facility] | [address] | [place] | [phone] | | [facility] | | [address] | | | - LABORATORY | | [...] [address] | [place] | [phone] | | [facility] | | [address] | | | - LABORATORY | | [...] | | | | | mg/dL | [facility] | | | | | | MEDICAL | | | | | | CENTER - | | | | | | LABORATORY | | + + + + + + | eGFR, | >60Comment: GLOMERULAR | >=60 | [facility] | | | non- | FILTRATION | mL/min/1.73m2 | [facility] | | | [place] | RATE,ESTIMATED | | MEDICAL | | | | mL/min/1.35i3Qkds than | | CENTER - | | [...] | 8.3 | 8.3 - 10.5 | [facility] | | | | | mg/dL | [facility] | | | | | | [...] | [address] | [place] | [phone] | | [facility] | | [address] | | | - LABORATORY | | [...] [facility] | | | | | | The[facility] | | | | | | MEDICAL [...] + | [facility] | [address] | [place] | [phone] | | [facility] | | [address] | | | - LABORATORY | | [...] | | POC | | | [facility] | | | | | | MEDICAL [...] [address] | [place] | [phone] | | [facility] | | [address] | | | - LABORATORY | | | | + + + + + POC Glucose (05/09/2017 4:44 PM PST) + +-------+ + + + | Component | Value | Ref Range | Performed | Pathologist | | | | | At | Signature | + +-------+ + + + | Glucose, | 104 | 70 - 109 mg/dL | [facility] [...] [address] | [place] | [phone] | | [facility] | | [address] | | | - LABORATORY | | [...] of | | | procedure done: Yes PONY EDGER: Johnny Jolly M.D., F.A.C.C. | | | PRIMARY PHYSICIAN: Bry Vaugnh, PROCEDURES PERFORMED: | | | Left heart catheterization, selective coronary arteriography | | | INDICATIONS : 61-year-old woman admitted with acute respiratory | | | failure, elevated troponin ARTERIAL ACCESS: Right radial artery 6 | | | Montserratian CLOSURE DEVICE:. TR band DESCRIPTION OF PROCEDURE: [...] | | | technique and a 6 Montserratian sheath was inserted. 3 mg per mL and 300 | | | g of nitroglycerin were administered through the side port of the | | | radial artery sheath. 4000 units of intravenous heparin was | | | administered. Selective coronary arteriography was performed using | | | a 5 Montserratian Ole catheter. The 5 [place]serratian Ole catheter was | | | advanced [...] Johnny Jolly M.D., F.A.C.C. | | | Catalog Library Assistant [facility] [place] | | | [place] | [...] + | [facility] | [address] | [place] | [phone] | | [facility] | | [address] | | | - LABORATORY | | [...] | | | | | LUCIO HU ([id number]) on | | | | | | [...] [address] | [place] | [phone] | | [facility] | | [address] | | | - LABORATORY | | [...] + | [facility] | [address] | [place] | [phone] | | [facility] | | [address] | | | - LABORATORY | | [...] [address] | [place] | [phone] | | [facility] | | [address] | | | - LABORATORY | | [...] [address] | [place] | [phone] | | [facility] | | [address] | | | - LABORATORY | | [...] [facility] | | | | | | STThe[address]ma [address] | [place] | [phone] | | [facility] | | [address] | | | - LABORATORY | | [...] | non- | FILTRATION | mL/min/1.73m2 | [facility] | | | [place] | RATE,ESTIMATED | | MEDICAL | | | | mL/min/1.74v3Tnxl than | | CENTER - | | [...] | | | | | mg/dL | [facility] | | | | | | [...] | | Total | | | [facility] | | [...] + | [facility] | [address] | [place] | [phone] | | [facility] | | [address] | | | - LABORATORY | | [...] 11.0 K/uL | [facility] | | | Cells | | | [...] [address] | [place] | [phone] | | [facility] | | [address] | | | - LABORATORY | | [...] | | | | | | [employer] | | | | | [...] W. [address] | [place] | [phone] | | [facility] | | [address] | | | - LABORATORY | | [...] [address] | [place] | [phone] | | [facility] | | [address] | | | - LABORATORY | | [...] + | [facility] | [address] | [place] | [phone] | | [facility] | | [address] | | | - LABORATORY | | | | + + + + + Troponin I (05/08/2017 6:55 PM PST) + + + + + + | Component | Value | Ref Range | Performed | Pathologist | | | | | At | Signature | + + + + + + | Troponin I | 2.58 ()Comment: | <0.06 ng/mL | [facility] | | | | Reference | | ST[facility] KAT | | | | Ranges:0.00-0.06 = [...] | | | | | results. [employer] | | | | | | [employer] [...] + | [facility] | [address] | [place] | [phone] | | [facility] | | [address] | | | - LABORATORY | | [...] | | POC | | | ST[facility] | | | | | | MEDICAL [...] [address] | [place] | [phone] | | [facility] | | [address] | | | - LABORATORY | | [...] + | [facility] | [address] | [place] | [phone] | | [facility] | | [address] | | | - LABORATORY | | [...] | | | Source | | | [facility] | | | | | | [...] + | [facility] | [address] | [place] | [phone] | | [facility] | | [address] | | | - LABORATORY | | [...] lead | | | | | | D3Gcngbtroy by GEORGES | | | | | | LUCIO [id number]) on | | | | | | [...] + | [facility] | [address] | [place] | [phone] | | [facility] | | [address] | | | - LABORATORY | | [...] [address] | [place] | [phone] | | [facility] | | [address] | | | - LABORATORY | | [...] + | [facility] | [address] | [place] | [phone] | | [facility] | | [address] | | | - LABORATORY | | [...] + | [facility] | [address] | [place] | [phone] | | [facility] | | [address] | | | - LABORATORY | | [...] | | | | | | [employer] | | | | | [...] [address] | [place] | [phone] | | [facility] | | [address] | | | - LABORATORY | | [...] ST. | [address] | [place], [place] | [phone] | | [facility] | | [address] | | | - LABORATORY | | [...] [address] | [place] | [phone] | | [facility] | | [address] | | | - LABORATORY | | [...] + | [facility] | [address] | [place] | [phone] | | [facility] | | [address] | | | - LABORATORY | | [...] 449 I | | | Patient Number [id number] Date of Study 05/08/2017 | | | Visit Number [id number] | | | Referring Physician NICOLE TSANG Number Date of | | | 1955 Cardroom Worker GIA ROA RUST | | | Age 61 year(s) Interpreting | | | JOHNNY JOLLY MD, | | | Canine Service Instructor Trainer [facility] Gender Female | | | Nurse Stress Epidemiology Intern | | | Procedure Type of Study [...] Volume: 38.51 ml | | | EF Auhmhqate32% Left | | | Ventricle Diastolic Dimension: [...] |Signature | | | | | | | [...] Volume: 38.51 ml | | | EF Dlihjcaaf15% | | | | | | Left [...] In - 05/08/2017 4:56 PM [facility] Transthoracic Echocardiography Report | | (TTE) Demographics Patient Name MARCELLA REYES Room Number 449 | | I Patient Number [id number] Date of Study 05/08/2017 Visit Number | | [id number] Referring Physician NICOLE TSANG Number | | Date of 1955 Cardroom Worker GIA ROA RDCS Age | | 61 year(s) Interpreting JOHNNY JOLLY MD, | | Canine Service Instructor Trainer FAC Gender Female Nurse | | Stress [...] -- Electronically signed by JOHNNY JOLLY MD, [facility](Interpreting physician) on | | 05/08/2017 04:56 | [...] [place] | | Volume: 38.51 ml EF Jccqrijlh72% Left | | Ventricle Diastolic Dimension: 4.9 [...] | Electronically signed by JOHNNY JOLLY MD, [facility](Interpreting | | physician) on [...] LA Volume: 38.51 ml | | EF Xqdjjadei18% | | | | Left Ventricle | [...] + | [facility] | [address] | [place] | [phone] | | [facility] | | [address] | | | - LABORATORY | | [...] | | | | | | [employer] | | | | | [...] + | [facility] | [address] | [place] | [phone] | | [facility] | | [address] | | | - LABORATORY | | [...] [address] | [place] | [phone] | | [facility] | | [address] | | | - LABORATORY | | [...] | | Cells | | M/uL | ST[facility] | | | | [...] + | [facility] | [address] | [place] | [phone] | | [facility] | | [address] | | | - LABORATORY | | [...] mL/min/1.73m2 | [facility] | | | [facility] | RATE,ESTIMATED | | MEDICAL | | | | mL/min/1.04m8Besk than | | CENTER - | | [...] [address] | [place] | [phone] | | [facility] | | [address] | | | - LABORATORY | | [...] [address] | [place] | [phone] | | [facility] | | [address] | | | - LABORATORY | | [...] | | | | LUCIO SU MD ([id number]) | | | | | | on [...] | | | | mmol/L | ST[facility] KAT | | | | [...] [address] | [place] | [phone] | | [facility] | | [address] | | | - LABORATORY | | [...] + | [facility] | [address] | [place] | [phone] | | [facility] | | [address] | | | - LABORATORY | | | | + + + + + Troponin I (05/08/2017 1:30 AM PST) + + + + + + | Component | Value | Ref Range | Performed | Pathologist | | | | | At | Signature | + + + + + + | Troponin I | 2.91 ()Comment: | <0.06 ng/mL | [facility] | | | | Reference | | [...] | | | | | | [employer] | | | | | [...] [address] | [place] | [phone] | | [facility] | | [address] | | | - LABORATORY | | [...] [address] | [place] | [phone] | | [facility] | | [address] | | | - LABORATORY | | [...] + | [facility] | [address] | [place] | [phone] | | [facility] | | [address] | | | - LABORATORY | | [...] | | | | | | ST. [facility] | | | | | | MEDICAL [...] ST. | [address] | [place], [place] | [phone] | | [facility] | | [address] | | | - LABORATORY | | [...] + | [facility] | [address] | [place] | [phone] | | [facility] | | [address] | | | - LABORATORY | | [...] | | BEFORE MEALS, First dose on e | | PM PST | | | [...]
--- OUTSIDE RECORDS SUMMARY | ~2019-12-07 | XMS | Encounter Summary ---
Demographics + + + | Address | [address] | | | [place] [address] | + + + | Home Phone | | + + + | Preferred Language | Unknown | + + + | Marital Status | | + + + | Christian Affiliation | 1028 | + + + | Race | White | + + + | Ethnic Group | Not or | + + + Author + + + | Author | [facility] | | | and [place] | + + + | Organization | [facility] | | | and [place] | + + + | Address | Unknown | + + + | Phone | Unavailable | + + + Support + + + + + | Name | Relationship | Address | Phone | + + + + + | Joseluis Desai | ECON | [place] | | | | | [address] | | + + + + + | Mila Desai | ECON | Unknown | | + + + + + Care Team Providers + +------+ + | Care Supervisor Steel Division Name | Role | Phone | + [...] Description | +--------+--------+ + + + | 07/02/ | Refill | [facility] | Tyree Joyce, | Medication Refill | | 2020 | | PULMONARY [address] | MD [address] | | | | | [place], | [place], [place] | | | | | [place] [address] | [address] | | | | | [phone] | | | +--------+--------+ + + + [...] [place] | | | | | | [address] | | | | | | | | +--------+---------+ + + + documented as of this encounter Visit Diagnoses Not on filedocumented in this encounter"
--- OUTSIDE RECORDS SUMMARY | ~2019-12-07 | XMS | Encounter Summary ---
Demographics + + + | Address | [address] | | | [place] [address] | + + + | Home Phone [...] | [place] | | | | | [address] | | + + + + + | Mila Desai | ECON | Unknown | | + + + + + Care Team Providers + +------+ + | Care Global Chief Creative Officer Name | Role | Phone | [...] | | | [address] [place] | [place] [address] | | | | | [place] [address] | | | | | | [phone] | | | +--------+ + + + [...] [place] | | | | | | [address] | | | | | | | | +--------+---------+ + + + documented as of this encounter Procedures + +--------+ + + + | Procedure Name | Priori | Date/Time | Associated Diagnosis | Comments | | | ty | | | | + +--------+ + + + | CT ANGIOGRAM | Routin | 05/07/2017 | | Results for this | | PULMONARY | e | 8:15 PM | | procedure are in the | | | | PST | | results section. | + +--------+ + + + documented in this encounter Results CT Angiogram Pulmonary (05/07/2017 8:15 PM PST) + + | Specimen | [...]
--- OUTSIDE RECORDS SUMMARY | ~2019-12-07 | XMS | Encounter Summary ---
Demographics + + + | Address | [address] | | | [place] [address] | + + + | Home Phone | | + + + | Preferred Language | Unknown | + + + | Marital Status | | + + + | Muslim Affiliation | 1028 | + + + | Race | White | + + + | Ethnic Group | Not or | + + + Author + + + | Author | [facility] | | | and [place] | + + + | Organization | [facility] | | | and [place] | + + + | Address | Unknown | + + + | Phone | Unavailable | + + + Support + + + + + | Name | Relationship | Address | Phone | + + + + + | Joseluis Desai | ECON | [place] | | | | | [address] | | + + + + + | Mila Desai | ECON | Unknown | | + + + + + Care Team Providers + +------+ + | Care Job Site Supervisor Name | Role | Phone | [...] [address] | | | | | [place], | [place] | | | | | [place] [address] | [address] | | | | | [phone] | | | +--------+--------+ + + + [...] [place] | | | | | | [address] | | | | | | | | +--------+---------+ + + + documented as of this encounter Visit Diagnoses Not on filedocumented in this encounter"
--- OUTSIDE RECORDS SUMMARY | ~2019-12-07 | XMS | Encounter Summary ---
Demographics + + + | Address | [address] | | | [place] [address] | + + + | Home Phone [...] | [place] | | | | | [address] | | + + + + + | Mila Desai | ECON | Unknown | | + + + + + Care Team Providers + +------+ + | Care Grants And Contracts Assistant Name | Role | Phone | + +------+ + | Bry Vaughn DO | PCP | | + +------+ + Encounter Details +--------+ + + + + | Date | Type | Department | Care Team | Description | +--------+ + + + + | 12/30/ | Hospital | [facility] | Tyree Joyce, | COPD, severe (HCC) | | 2018 | Encounter | MED CTR PULMONARY | MD [address] | | | | | [address] | [place], [place] | | | | | [place], | [address] | | | | | [place] [address] | | | | | | [phone] | | | +--------+ + + + [...] signed by: Tyree Joyce MD 12/30/2017 14[facility]22 [facility] at [...] [place] | | | | | | [address] | | | | | | | [...] | | | MD Isiah 12/30/2017 14:22[facility] | | | | | |IMPRESSION: Spirometry [...] 12/30/2017 | | |14:22 | | |[facility] | | + + + documented in [...]
--- OUTSIDE RECORDS SUMMARY | ~2019-12-07 | XMS | Encounter Summary ---
Demographics + + + | Address | [address] | | | [place] [address] | + + + | Home Phone [...] | [place] | | | | | [address] | | + + + + + | Mila Desai | ECON | Unknown | | + + + + + Care Team Providers + +------+ + | Care Finish Mixer Name | Role | Phone | + [...] + + | 12/30/ | Telephone | [facility] | Tyree Joyce, | Medication Prior | | 2017 | | PULMONARY [address] | MD [address] | Authorization | | | | [place], | [place] | | | | | [place] [address] | [address] | | | | | [phone] | | | +--------+ + + + [...] [place] | | | | | | [address] | | | | | | | | +--------+---------+ + + + documented as of this encounter Visit Diagnoses Not on filedocumented in this encounter"
--- OUTSIDE RECORDS SUMMARY | ~2019-12-07 | XMS | Encounter Summary ---
Demographics + + + | Address | [address] | | | [place] [address] | + + + | Home Phone [...] | [place] | | | | | [address] | | + + + + + | Mila Desai | ECON | Unknown | | + + + + + Care Team Providers + +------+ + | Care Information Analyst Name | Role | Phone | [...] | disease, | [address] | [place] [address] | | | | | unspecified | [place], | Phone: | | | | | ([facility]) | [place] | [phone] | | | | | Procedures | [address] | Fax: | | | | | F/U DOMO COBB | Phone: | [phone] | | | | | MILDRED JOYCE | [phone] | | | | | | 06/30/18 | Fax: | | | | | | | [phone] | | +--------+--------+ + + + + Encounter Details +--------+---------+ + + + | Date | Type | Department | Care Team | Description | +--------+---------+ + + + | 08/04/ | Office | [facility] | Tyree Joyce, | COPD, moderate (HCC) | | 2019 | Visit | PULMONARY [address] | MD [address] | (Primary Dx) | | | | [place], | [place] | | | | | [place] [address] | [address] | | | | | [phone] | | | +--------+---------+ + + + [...] secretions in your nose and lungs . Kseh-jzi-wedyzbb cold medicines will not make the flu [...] for a few days Date Last Reviewed: 03/14/201619998143-6498 [employer]. [address] [place] [address], [place] [address]. All righ ts reserved. 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 CC: Bry Vaughn, DO Tdocumented in this encounter Plan of Treatment +--------+---------+ + + + | Date | Type | Specialty | Care Team | Description | +--------+---------+ + + + | 01/15/ | Office | Physical Medicine | Dick Maria, | | | 2019 | Visit | and Rehabilitation | MD [address] | | | | | | [place] | | | | | | [address] | | | | | | | | +--------+---------+ + + + documented as of this encounter Visit Diagnoses + + | Diagnosis | + + | COPD, moderate (HCC) - Primary Chronic airway obstruction, not elsewhere classified | + + documented in this encounter
--- OUTSIDE RECORDS SUMMARY | ~2019-12-07 | XMS | Encounter Summary ---
Demographics + + + | Address | [address] | | | [place] [address] | + + + | Home Phone | | + + + | Preferred Language | Unknown | + + + | Marital Status | | + + + | Orthodoxy Affiliation | 1028 | + + + | Race | White | + + + | Ethnic Group | Not or | + + + Author + + + | Author | [facility] | | | and [place] | + + + | Organization | [facility] | | | and [place] | + + + | Address | Unknown | + + + | Phone | Unavailable | + + + Support + + + + + | Name | Relationship | Address | Phone | + + + + + | Joseluis Desai | ECON | [place] | | | | | [address] | | + + + + + | Mila Desai | ECON | Unknown | | + + + + + Care Team Providers + +------+ + | Care Repairer Sash And Door Name | Role | Phone | + [...] [address] | | | | | [place], | [place], [place] | | | | | [place] [address] | [address] | | | | | [phone] | | | +--------+--------+ + + + [...] [place] | | | | | | [address] | | | | | | | | +--------+---------+ + + + documented as of this encounter Visit Diagnoses Not on filedocumented in this encounter"
--- OUTSIDE RECORDS SUMMARY | ~2019-12-07 | XMS | Encounter Summary ---
Demographics + + + | Address | [address] | | | [place] [address] | + + + | Home Phone [...] | [place] | | | | | [address] | | + + + + + | Mila Desai | ECON | Unknown | | + + + + + Care Team Providers + +------+ + | Care Director Religious Education Name | Role | Phone | + [...] | | | [address] [place] | [place] [address] | | | | | [place] [address] | | | | | | [phone] | | | +--------+ + + + [...] [place] | | | | | | [address] | | | | | | | [...]
--- OUTSIDE RECORDS SUMMARY | ~2019-12-07 | XMS | Encounter Summary ---
Demographics + + + | Address | [address] | | | [place] [address] | + + + | Home Phone [...] | [place] | | | | | [address] | | + + + + + | Mila Desai | ECON | Unknown | | + + + + + Care Team Providers + +------+ + | Care Criminal Research Specialist Name | Role | Phone | [...] | | | [address] [place] | [place] [address] | | | | | [place] [address] | | | | | | [phone] | | | +--------+ + + + [...] [place] | | | | | | [address] | | | | | | | | +--------+---------+ + + + documented as of this encounter Procedures + +--------+ + + + | Procedure Name | Priori | Date/Time | Associated Diagnosis | Comments | | | ty | | | | + +--------+ + + + | XR CHEST 1 VIEW | Routin | 07/12/2017 | | Results for this | | | e | 4:40 PM | | procedure are in the | | | | PDT | | results section. | + +--------+ + + + documented in this encounter Results XR Chest 1 Vw (07/12/2017 4:40 PM PDT) + + | Specimen | [...]
--- OUTSIDE RECORDS SUMMARY | ~2019-12-07 | XMS | Encounter Summary ---
Demographics + + + | Address | [address] | | | [place] [address] | + + + | Home Phone | | + + + | Preferred Language | Unknown | + + + | Marital Status | | + + + | Anglican Affiliation | 1028 | + + + [...] | [place] | | | | | [address] | | + + + + + | Mila Desai | ECON | Unknown | | + + + + + Care Team Providers + +------+ + | Care Technician Preventative Medicine Name | Role | Phone | + [...] | | | [address] [place] | [place] [address] | | | | | [place] [address] | | | | | | [phone] | | | +--------+ + + + [...] [place] | | | | | | [address] | | | | | | | [...]
--- OUTSIDE RECORDS SUMMARY | ~2019-12-07 | XMS | Encounter Summary ---
Demographics + + + | Address | [address] | | | [place] [address] | + + + | Home Phone [...] | [place] | | | | | [address] | | + + + + + | Mila Desai | ECON | Unknown | | + + + + + Care Team Providers + +------+ + | Care Warp Starter Name | Role | Phone | + +------+ + | Bry Vaughn DO | PCP | | + +------+ + Reason for Visit +--------+--------+ + | Reason | Onset | Comments | | | Date | | +--------+--------+ + | Other | 01/30/ | symbicort | | | 2017 | | +--------+--------+ + Encounter Details +--------+ + + + + | Date | Type | Department | Care Team | Description | +--------+ + + + + | 01/30/ | Telephone | [facility] | Tyree Joyce, | Other (symbicort) | | 2017 | | PULMONARY [address] | MD [address] | | | | | [place], | [place] | | | | | [place] [address] | [address] | | | | | [phone] | | | +--------+ + + + [...] documented as of this encounter Miscellaneous Notes Addendum Note - Светлана Rodriguez RN - 01/31/2018 2:48 PM PST Addended by: MARU RODRIGUEZ on: 01/31/2018 14:48 Modules accepted: Orders elephone Encount er - Светлана Rodriguez RN - 01/31/2018 2:43 PM PSTReceived a fax from [employer] informing that they have approved Dulera. Prescription sent to [facility]. elephone Encounter - Светлана Rodriguez RN - 01/30/2018 3:02 PM PSTPrior auth submitted for Dulera. elephone Encounter - Tyree Joyce MD - 8 11:24 AM PSTWe did see if her insurance (with authorization) would be willing to cover eit her Breo or Dulera. The patient's "allergy" is very atypical and thus it is possible that t he insurance will not agree to cover.Electronically signed by Tyree Joyce MD at 2017 11:25 AM PSTTelephone Encounter - Светлана Rodriguez RN - 01/30/2018 10:16 AM PSTDiane called stating that she went to the ED last night and was told that she is allergic to Symbi dorothy. She started it about 2 weeks ago. Her breathing improved and she has not had to use he r albuterol. About 6 days ago she developed severe itching all over her body, nausea, anxiet y and hunger. No hives. Amy was treated with benadryl and prednisone. She has already trie d and failed Advair. Breo and Dulera are non formulary but could be submitted for a prior au thorization. document ed in this encounter Plan of Treatment +--------+---------+ + + + | Date | Type | Specialty | Care Team | Description | +--------+---------+ + + + | 01/15/ | Office | Physical Medicine | Dick Maria, | | | 2019 | Visit | and Rehabilitation | MD [address] | | | | | | [place] | | | | | | [address] | | | | | | | | +--------+---------+ + + + documented as of this encounter Visit Diagnoses Not on filedocumented in this encounter
--- OUTSIDE RECORDS SUMMARY | ~2019-12-07 | XMS | Encounter Summary ---
Demographics + + + | Address | [address] | | | [place] [address] | + + + | Home Phone [...] | [place] | | | | | [address] | | + + + + + | Mila Desai | ECON | Unknown | | + + + + + Care Team Providers + +------+ + | Care Laundry Room Attendant Name | Role | Phone | + +------+ + | Bry Vaughn DO | PCP | | + +------+ + Encounter Details +--------+ + + + + | Date | Type | Department | Care Team | Description | +--------+ + + + + | 08/17/ | Hospital | [facility] | Conversion | Diagnosis unknown | | 2018 | Encounter | CONVERSION [address] | Transaction, | | | | | [address] | Provider Unknown | | | | | [place], [place] | [phone] | | | | | [address] | | | | | | [phone] | | | +--------+ + + + [...] [place] | | | | | | [address] | | | | | | | [...] Note | + + | Daniel You Conversion - 10/25/2018 2:26 PM PDT This is [...]
--- OUTSIDE RECORDS SUMMARY | ~2019-12-07 | XMS | Encounter Summary ---
Demographics + + + | Address | [address] | | | [place] [address] | + + + | Home Phone [...] | [place] | | | | | [address] | | + + + + + | Mila Desai | ECON | Unknown | | + + + + + Care Team Providers + +------+ + | Care Collar Sewer Name | Role | Phone | + [...] | | | | | Panlobular | Bry DO | MD Tyree | | | | | emphysema | [address] | [address] | | | | | ([facility]) | Onel Landa | [place], | | | | | Procedures | [address] | [place] [address] | | | | | NEW PT | [place], | Phone: | | | | | CONSULT | [place] | [phone] | | | | | | [address] | Fax: | | | | | | Phone: | [phone] | | | | | | [phone] | | | | | | | Fax: | | | | | | | [phone] | | +--------+--------+ + + + + Encounter Details +--------+---------+ + + + | Date | Type | Department | Care Team | Description | +--------+---------+ + + + | 12/12/ | Office | [facility] | Tyree Joyce, | COPD, severe (HCC) | | 2018 | Visit | PULMONARY [address] | MD [address] | (Primary Dx) | | | | [place], | [place], [place] | | | | | [place] [address] | [address] | | | | | [phone] | | | +--------+---------+ + + + [...] information carefully each time. Talk to your drier operator regarding the use of this medicine in children. Special care may be needed. This medicine is not approved for use in children under 18 years of age. What side effects may I notice from receiving this medicine? Side effects that you should report to your doctor or health personal caregiver as soon as p ossible: allergic reactions like skin rash or hives, swelling of the face, lips, or tongue breathing problems right after inhaling your medicine changes in vision chest pain fast, irregular heartbeat feeling faint or lightheaded, falls fever or chills nausea, vomiting tiredness Side effects that usually do not require medical attention (report to your doctor or health personal caregiver if they continue or are bothersome): cough [...] this medicine? Visit your doctor or health personal caregiver for regular checkups. Tell your doctor or [facility] personal caregiver if your symptoms do not get better. [...] have surgery tell your doctor or health personal caregiver that you are using this medicine. Try not to come in contact with people with the chicken pox or measles. If you do, call your doctor. NOTE:This sheet is a summary. It may not cover all possible information. If you have questi ons about this medicine, talk to your doctor, pharmacist, or health care provider. Copyright 2018 [employer] documented in this encounter Progress Notes Tyree Joyce MD - 12/12/2017 1:30 PM PDTFormatting of this note might be different f rom the original. Pulmonary Consult Note 12/12/2017 HPI Amy Colmean is a 62 y.o. female patient of Bry Vaughn DO here today for evaluati on of COPD. The patient states that she was diagnosed with "COPD" and approximately 2013. Amy was in itially treated with Ventolin and Incruse. In late April 2017 she developed respiratory failure and was transferred to [facility] for further evaluation. T he patient [...] in hemorrhagic shock. Patient was transferred to [facility] where she wa s noted to have intra-abdominal bleeding and underwent embolization of the left gastric paco ry. Primary diagnosis was that of pseudoaneurysm of visceral artery. Patient returned to [place] in September 2016 with chest pain. She states that she was jiménez sferred to another facility but records are not available to collaborate. 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" Shortness of breath Past Surgical History Past Surgical History: Procedure Laterality Date APPENDECTOMY 1996 CARDIAC CATHERIZATION N/A 05/09/2017 Procedure: CV LHC; Surgeon: Johnny Luther MD; Location: [facility] CV LAB HYSTERECTOMY 1996 OTHER SURGICAL HISTORY N/A 08/17/2017 Procedure: GI BLEED; Surgeon: Ion Power MD; Location: [facility] INTERVENTIONAL RADIOLOG Y OTHER SURGICAL HISTORY N/A 08/18/2017 Procedure: Gastric Artery Embolization with 2mm x 8cm coil and [place] 34 and 18 embolic; Isaac rgeon: Bobo [...] Will consider referral for pulmonary rehab in [facility]. CC: Bry Vaughn, Tdocumented in this encounter Plan of Treatment +--------+---------+ + + + | Date | Type | Specialty | Care Team | Description | +--------+---------+ + + + | 01/15/ | Office | Physical Medicine | Dick Maria, | | | 2019 | Visit | and Rehabilitation | [address] | | | | | | [place] | | | | | | [address] | | | | | | | [...] Crisostomo | | | MD Isiah 12/30/2017 14:22[facility] | | | | | |IMPRESSION: [...] MD 12/30/2017 | | |14:22 | | |[facility] | | + + + LABS [...]
--- OUTSIDE RECORDS SUMMARY | ~2019-12-07 | XMS | Encounter Summary ---
Demographics + + + | Address | [address] | | | [place] [address] | + + + | Home Phone | | + + + | Preferred Language | Unknown | + + + | Marital Status | | + + + | Anglican Affiliation | 1028 | + + + | Race | White | + + + | Ethnic Group | Not or | + + + Author + + + | Author | [facility] | | | and [place] | + + + | Organization | [facility] | | | and [place] | + + + | Address | Unknown | + + + | Phone | Unavailable | + + + Support + + + + + | Name | Relationship | Address | Phone | + + + + + | Joseluis Desai | ECON | [place] | | | | | [address] | | + + + + + | Mila Desai | ECON | Unknown | | + + + + + Care Team Providers + +------+ + | Care Hand Cooper Helper Name | Role | Phone | [...] + + | 08/31/ | Telephone | [facility] | Shaji Wilson | Other | | 2018 | | SURGERY [address] | MD Alessandro, FACS [address] | | [address] [place], [place] | [facility] | | | | | [address] | [place] [address] | | | | | [phone] | [phone] | | | | | | | [...] [place] | | | | | | [address] | | | | | | | | +--------+---------+ + + + documented as of this encounter Visit Diagnoses Not on filedocumented in this encounter"
--- OUTSIDE RECORDS SUMMARY | ~2019-12-07 | XMS | Encounter Summary ---
Demographics + + + | Address | [address] | | | [place] [address] | + + + | Home Phone | | + + + | Preferred Language | Unknown | + + + | Marital Status | | + + + | Lutheran Affiliation | 1028 | + + + | Race | White | + + + | Ethnic Group | Not or | + + + Author + + + | Author | [facility] | | | and [place] | + + + | Organization | [facility] | | | and [place] | + + + | Address | Unknown | + + + | Phone | Unavailable | + + + Support + + + + + | Name | Relationship | Address | Phone | + + + + + | Joseluis Desai | ECON | [place] | | | | | [address] | | + + + + + | Mila Desai | ECON | Unknown | | + + + + + Care Team Providers + +------+ + | Care Residential Housekeeper Name | Role | Phone | + [...] | [facility] [address] [facility] | | | | | [address] [place], [place] | [place] [address] | | | | | [address] | [phone] | | | | | [phone] | | | +--------+ + + + [...] safely and had no new medications to miner pick. Patient co nfirmed their PCP appointment on [...] [place] | | | | | | [address] | | | | | | | | +--------+---------+ + + + documented as of this encounter Visit Diagnoses Not on filedocumented in this encounter"
--- OUTSIDE RECORDS SUMMARY | ~2019-12-07 | XMS | Encounter Summary ---
Demographics + + + | Address | [address] | | | [place] [address] | + + + | Home Phone [...] Author + + + | Author | [facility] | | | and [place] | + + + | Organization | [facility] | | | and [place] | + + + | Address | Unknown | + + + | Phone | Unavailable | + + + Support + + + + + | Name | Relationship | Address | Phone | + + + + + | Joseluis Desai | PRERNA | [place] | | | | | [address] | | + + + + + | Mila Desai | ECON | Unknown | | + + + + + Care Team Providers + +------+ + | Care Driver/Refuse Collector Name | Role | Phone | [...] | | | [address] [place] | [place] [address] | | | | | [place] [address] | | | | | | [phone] | | | +--------+ + + + [...] [place] | | | | | | [address] | | | | | | | [...]
--- OUTSIDE RECORDS SUMMARY | ~2019-12-07 | XMS | Encounter Summary ---
Demographics + + + | Address | [address] | | | [place] [address] | + + + | Home Phone | | + + + | Preferred Language | Unknown | + + + | Marital Status | | + + + | Shinto Affiliation | 1028 | + + + | Race | White | + + + | Ethnic Group | Not or | + + + Author + + + | Author | [facility] | | | and [place] | + + + | Organization | [facility] | | | and [place] | + + + | Address | Unknown | + + + | Phone | Unavailable | + + + Support + + + + + | Name | Relationship | Address | Phone | + + + + + | Joseluis Desai | ECON | [place] | | | | | [phone] | | + + + + + | Mila Desai | ECON | Unknown | | + + + + + Care Team Providers + +------+ + | Care Order Booker Name | Role | Phone | + [...] | | | | TAMIKO Lombardi | [place] [address] | [address] | | | | [address] | [phone] | embolic | | | | [phone] | | | +--------+---------+ + + + [...] Follow Up Appointments: Bry Vaughn DO [address] [place] [address] Schedule an appointment as soon as possible for a visit Discharge Disposition: Home Consultants This Admission: Vascular surgery, General Surgery, Interventional Radiology Hospital Course: Amy Coleman is a 62-year-old female with past medical history significant for COPD, CAD s/p NSTEMI ( no PCI), who was transferred to [facility] for ICU care from [facility] on 08/17 wh ere she was intubated [...] going home to continue duo nebs at [facility]. She is being discharged today in [...] this chart may have been created with [employer] voice recognition software. Occasi onal wrong-word or [...] urine. Belly (abdominal) pain Date Last Reviewed: 09/12/201519994913-3758 [employer]. [address] [place] [address]. All righ ts reserved. This information is [...] about recovering at home. Date Last Reviewed: 02/12/201619998029-0059 [employer]. [address] [place] [address]. All righ ts reserved. This information is not intended as a substitute for professional medical care. Always follow your healthcare professional's instructions. [facility] Patient Belongings Amy Coleman 1955 Patient Signature: Clinician/Tissue Technologist Signature: Discharge Instructions: After Your Surgery You [...] interact with your prescription medicines or other woba-qdm-yipytdj (OTC) medicines. Some prescription medicines have acetaminophen and other ingredients.Using both prescription a nd OTC acetaminophenfor paincan cause you to overdose. Readthe labels on your OTC medi [facility] care. This will help youto clearly [...] of taking these medicines. Date Last Reviewed: 02/12/201619991024-6564 [employer]. [address] [place] [address], [place] [address]. All righ ts reserved. This information is [...] is a 62 year old female from [place], [place] with [employer] Medicaid insurance. SW received referral [...] ( no PCI), who was transferred to [facility] for ICU care from [facility] on 08/17 wh ere she was intubated [...] - Single Lumen 05/08/17 0130 Left Forearm tqiw-dxl-giojvp catheter syst em 20 gauge 106 days [...] this chart may have been created with [employer] voice recognition software. Occasi onal wrong-word or sound-alike substitutions may have occurred due to the inherent lobo itations of voice recognition software. Please read the chart carefully and recognize, using context, where these substitutions have occurred Krzysztof Ordaz MD - 08/21/2017 5:47 PM PDTFormatting of this note might be different f rom the original. [facility] - [facility] Surgery Team Hospital Day: 5 [...] Signed by: Krzysztof Montaño MD, 08/21/2017 17:47 [facility] ope, Riky Avendaño MD - 08/21/2017 9:49 AM PDT Patient: Amy Coleman Date of : 1955 Admit Date: 08/17/2017 Date of Service: 08/21/2017 PCP: Bry Vaughn DO Hospital Day: Hospital Day: 5 Hospital Course: Amy Coleman is a 62-year-old female with past medical history significant for COPD, CAD s/p NSTEMI ( no PCI), who was transferred to [facility] for ICU care from [facility] on 08/17 wh ere she was intubated [...] - Single Lumen 05/08/17 0130 Left Forearm xqng-jva-hlxuox catheter syst em 20 gauge 105 days [...] Hold Result Value Ref Range Product Code J1215W95 UNIT # [id number] UNIT ABO O UNIT RH POS Unit Status IS Blood Product Expiration Date and Time [id number] Product Blood Type Barcode 5100 Product Code K2825G76 UNIT # [id number] UNIT ABO O UNIT RH POS Unit Status RE Blood Product Expiration Date and Time 040241512631 Product Blood Type Barcode 5100 Hemoglobin and [...] this chart may have been created with [employer] voice recognition software. Occasi onal wrong-word or sound-alike substitutions may have occurred due to the inherent lobo itations of voice recognition software. Please read the chart carefully and recognize, using context, where these substitutions have occurred Krzysztof Ordaz MD - 08/20/2017 12:23 PM PDTFormatting of this note might be different f rom the original. [facility] General Surgery Team Hospital Day: 4 DATE/TIME: [...] Signed by: Krzysztof Montaño MD, 08/20/2017 12:23 [facility] Nadia Blount MD - 08/20/2017 10:02 AM PDT Patient: Amy Coleman Date of : 1955 Admit Date: 08/17/2017 Date of Service: 08/20/2017 PCP: Bry Vaughn DO Hospital Day: Hospital Day: 4 Hospital Course: Amy Coleman is a 62-year-old female with past medical history significant for COPD, CAD s/p NSTEMI ( no PCI), who was transferred to [facility] for ICU care from [facility] on 08/17 ere she was intubated for [...] - Single Lumen 05/08/17 0130 Left Forearm xcrg-ums-kajctg catheter syst em 20 gauge 104 days [...] this chart may have been created with [employer] voice recognition software. Occasi onal wrong-word or sound-alike substitutions may have occurred due to the inherent lobo itations of voice recognition software. Please read the chart carefully and recognize, using context, where these substitutions have occurred mnadeem, Vikram Mayes MD - 08/20/2017 5:28 AM PDT Critical Care Progress Note [facility] Date of Service: 08/20/2017 Admit Date: [...] NSTEMI (no PCI, mild disease) presented to [facility] on 08/16 with shortness of breath [...] NSTEMI (no PCI, mild disease) presented to [facility] on 08/16 with shortness of breath [...] Today: Yes Extubated Bowel Function: Last BM: LIMB DRIVER. Scheduled bowel meds started. Indwelling Bladder Catheter [...] LABORATORY: I personally reviewed recent labs in [facility] and ordered appropriate follow-up domonique dies. [...] Component Value Date PHART 7.36 (L) 08/19/2017 [id number] 44 (H) 08/19/2017 PO2ART 91 (H) 08/19/2017 [id number] 13.3 (L) 08/19/2017 [id number] 25.2 08/19/2017 BEART -0.2 08/19/2017 CARBOXYHGB 1.0 [...] this chart may have been created with [employer] voice recognition software. Occasi onal wrong-word or sound-alike substitutions may have occurred due to the inherent lobo itations of voice recognition software. Please read the chart carefully and recognize, using context, where these substitutions have occurred. Krzysztof Ordaz MD - 08/19/2017 2:04 PM PDT [facility] General Surgery Team Hospital Day: 3 DATE/TIME: [...] Plan was discussed with ICU physician Dr. Jamse Total time spent greater than 35 minutes, at least 50% in counseling and coordination of ca re. Electronically Signed by: Krzysztof Montaño MD, 08/19/2017 14:05 [facility] Jarocho Saldaña RRT - 08/19/2017 10:10 AM [...] Coleman DATE OF : 1955 MED RECORD: [id number] ASSESSMENT/PLAN PROCEDURE: mesenteric angiogram 08/18 ASSESSMENT: 1. [...] 2019 PHART 7.25* 7.34* PO2ART 58* 139* [id number] 53* 39 BEART -4.1* -4.5* EXAM: General [...] 6:50 AM PDT Critical Care Progress Note [facility] Date of Service: 08/19/2017 Admit Date: [...] NSTEMI (no PCI, mild disease) presented to [facility] on 08/16 with shortness of breath [...] NSTEMI (no PCI, mild disease) presented to [facility] on 08/16 with shortness of breath [...] Today: Yes Extubated Bowel Function: Last BM: LIMB DRIVER. Scheduled bowel meds started. Indwelling Bladder Catheter [...] LABORATORY: I personally reviewed recent labs in [facility] and ordered appropriate follow-up domonique dies. [...] Component Value Date PHART 7.34 (L) 08/18/2017 [id number] 39 08/18/2017 PO2ART 139 (H) 08/18/2017 [id number] 11.2 (L) 08/18/2017 ZMT0FRH 21.2 (L) 08/18/2017 BEART -4.5 (L) 08/18/2017 [...] this chart may have been created with [employer] voice recognition software. Occasi onal wrong-word or [...] 6:28 AM PDT Critical Care Progress Note [facility] Date of Service: 08/18/2017 Admit Date: [...] sease only, no PCI) presented to OSH ([facility], [place]) initially w/ c/o SOB and was intubated for acute on chronic respiratory failure (ABG prior to intubation: 7.0/98/217/26). Pt then developed hypotension/HD instability for which she required 2 pressors. hgb fell from 15-- >4 and pt rc'd 6u PRBCs, 2uFFP, 1u PLT, 5L NS. CT abdomen showed RP hematoma and pt was tra nsferred to [facility] for further eval of this. 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 Gen surgery consulted as w ell as vascular to determine best approach to vascular issues given high potential for re bl eed. Summary of Significant Events: 08/17: Admitted to [facility]. Intubated. To IR 08/18: Awake, alert. NE [...] l plan set Bowel Function: Last BM: LIMB DRIVER. PRN bowel meds available. Indwelling Bladder Catheter Indication: Vasopressors for hemodynamic instability Subjective 24hr interval history: Transferred from [place] to [facility] Afebrile Rc'd 6u PRBCs, 2u FFP, 1u [...] LABORATORY: I personally reviewed recent labs in [facility] and ordered appropriate follow-up domonique dies. [...] Results Component Value Date PHART 7.39 08/18/2017 [id number] 32 08/18/2017 PO2ART 108 (H) 08/18/2017 [id number] 16.2 08/18/2017 FFN1CWK 19.4 (L) 08/18/2017 BEART -5.6 (L) 08/18/2017 [...] this chart may have been created with [employer] voice recognition software. Occasi onal wrong-word or sound-alike substitutions may have occurred due to the inherent lobo itations of voice recognition software. Please read the chart carefully and recognize, using context, where these substitutions have occurred. Associated attestation - Vikram James MD - 08/18/2017 8:56 AM PDT Physician Attestation Note [facility] Date of Service: 08/18/2017 Reason for critical care: Hemorrhagic shock secondary to intra-abdominal bleeding I reviewed and discussed the patient history, assessment and plan with the KOLE, during pers onal discussion and/or multi-disciplinary rounds. Acute issues or additions to plan of care: 62 year old lady with PMH of COPD, CAD s/p NSTEMI (no PCI, mild disease) presented to [facility] on 08/16 with shortness of breath [...] this chart may have been created with [employer] voice recognition software. Occasi onal wrong-word or [...] riginal. . Critical Care-Care Progress Note Update [facility] Date of Service: 08/17/2017 Admit Date: [...] called and discussed plans with son, Joseluis ([phone]). He expre ssed understanding and wanted to [...] this chart may have been created with [employer] voice recognition software. Occasi onal wrong-word or [...] PDT Critical Care Admission History and Physical [facility] Intensive Care Unit Pt. Name: Amy Coleman Age: 62 y.o. : 1955 Code Status: TBD - Full Code by default Date of Admission: 08/17/2017 Primary Care Physician: Bry Vaughn DO Attending: Faby Rodriguez MD Subjective Chief Concern: Abdominal bleed History of Present Illness: 62 yo F patient with PMH of COPD and previous VA was transferred from [facility] to [facility] ICU for further care of shock and [...] CV LHC; Surgeon: Johnny Luther MD; Location: [facility] [place] CV LAB Social History: Social History Social [...] Lab 06/06/18 2239 PHART 7.33* PO2ART 193* [id number] 35 BEART -7.8* No results for input(s): [...] discussed the plan Lalito Huggins Lloyd : [phone] I expect this patient will be hospitalized for greater than 2 midnights. I expect the post-hospital plan to be determined once additional information is obtained. Electronically signed by: Diana Boyle MD, 08/18/2017, 0:23 Associated attestation - Fbay Rodriguez MD - 08/18/2017 5:15 AM PDTFormatting of this note m ight be different from the original. . Physician Attestation Note [facility] Date of Service: 08/18/2017 Reason for [...] with mild disease, no PCI) presented to [facility] late evening 08/16 with hypoxemic/hyp ercarbic respiratory [...] large low density mass in left abdomen [id number] with active extravasation is several locations, ?branches of celiac or SMA. MTP protocol initiated. Stabilized. OSH physicians discussed with critical care, surgery an d interventional radiology and pt transferred to [place]. Upon arrival, she is relatively stable on [...] this chart may have been created with [employer] voice recognition software. Occasi onal wrong-word or sound-alike substitutions may have occurred due to the inherent lobo itations of voice recognition software. Please read the chart carefully and recognize, using context, where these substitutions have occurred. documented in this encounter Consult Notes Johnny Harmon MD - 08/18/2017 1:29 PM PDTFormatting of this note might be different fro m the original. [facility] [place] VASCULAR CONSULTATION PATIENT NAME: Amy Coleman : [...] is chemia. This was discussed with the ftxsxljm-ik-nmw and grandson, and also with the intubat [...] Dr Minor. She was transferred yesterday from [facility] with an acute intra-abdominal bleed from a [...] COPD (chronic obstructive pulmonary disease) ([facility]) and NS STANLEY (non-ST elevated myocardial infarction) ([facility]). Allergies Allergen Reactions Amoxicillin Cephalexin Hydroxyzine Hcl [...] CV LHC; Surgeon: Johnny Luther MD; Location: [facility] [place] CV LAB Family History: Her family history [...] Negative UROBILINOGEN UA <2.0 <2.0 mg/dL Specific [place] >1.060 (H) 1.001 - 1.030 PH UA [...] Wilder MD - 08/18/2017 12:21 AM PDT [facility] GENERAL SURGERY CONSULT Primary Care Physician: Bry [...] CV LHC; Surgeon: Johnny Luther MD; Location: [facility] [place] CV LAB MEDICATIONS PRIOR TO ADMISSION Prior [...] 40-60 mEq 40-60 mEq Feeding Tube PRN Diaan dempsey MD And potassium chloride 10 mEq [...] Signed by: Pedro Londono MD, 08/18/2017 0:21 [facility] documented in thi s encounter Miscellaneous Notes [...] None Code Status: Full Code Item for education and outreach coordinator Comments Shift Summary: Pt is alert and oriented. Pain managed w/ [facility] 5 x 1 tab. Frequent heartburn/indigestion. Tums [...] Bowel Movement: 08/20/17 (08/21/17 1600) Pain Management: [facility] Next Dose: CAM CAM Score: no MD Notification: Notification Provider Name/Title: Dr Roman (08/20/171511) Reason for Communication: Critical lab value with read back verification (08/20/171511) Method of Communication: Call (08/20/171511) Abalone Sheller for Provider: Sammie RN (08/20/171511) Response: See [...] None Code Status: Full Code Item for education and outreach coordinator Comments Shift Summary: Alert and oriented x4, VSS, up independently in room and halls. Denies pain. S/P embolization of right visceral artery. ANticipating D/C tomorrow. Patient lives in [facility] and needs advanced notice of [...] Embolization with 2mm x 8cm coil and [place] [address] and 18 embolic (N/A) Anesthesia Type [...] verification (08/20/171511) Method of Communication: Call (08/20/171511) Abalone Sheller for Provider: Sammie RN (08/20/171511) Response: See [...] 1130 lan of Care - Nicolás Mello, GRAIN THRESHER - 08/22/2017 4:45 PM PDTProblem: Patient Care [...] None Code Status: Full Code Item for education and outreach coordinator Comments Shift Summary: Pt is alert and oriented. Denied pain through night Right groin dressing with dried drainage Tolerates , denies nausea Rested well Dx/Tx: Procedure(s) (LRB): Gastric Artery Embolization with 2mm x 8cm coil and [place] 34 and 18 embolic (N/A) Anesthesia Type [...] verification (08/20/171511) Method of Communication: Call (08/20/171511) Abalone Sheller for Provider: Sammie NUNEZ (08/20/171511) Response: See [...] 1130 lan of Care - Sowmya Cevallos, GRAIN THRESHER - 08/22/2017 4:58 AM PDTProblem: Patient Care [...] None Code Status: Full Code Item for education and outreach coordinator Comments Shift Summary: Patient up indp to bathroom and hallway. PICC to LUE double lumen, CDI. Pain tolerable, denies nausea. Resting at this time, will continue to monitor. Possible discharge in AM. Electronically signed by: ARMANDO MONTEIRO RN 08/21/2017 23:02 Dx/Tx: Procedure(s) (LRB): Gastric Artery Embolization with 2mm x 8cm coil and [address] [address] and 18 embolic (N/A) Anesthesia Type [...] verification (08/20/171511) Method of Communication: Call (08/20/171511) Abalone Sheller for Provider: Sammie RN (08/20/171511) Response: See [...] Rowan Levine, PT treatment and documentation. Sarah Ericjerord 08/21/2017 15:30 Problem: Patient Care Overview (Adult) [...] Supine: independent Goal Status: met Level of [place]: independent Transfers Bed to Chair: not tested Chair to Bed: not tested Utilizing: other (see comments) (hand hold assist) Sit to Stand: independent Stand to Sit: independent Utilizing: none Status: met [place] Level: independent Gait Level of Assist: independent Utilizes: none Distance: 300 Goal Status: met Goal: independent Device: none Distance: 150' Stairs # of stairs: 12 Handrail Location: left side (ascending) Level of [place]: independent Utilizes: 1 rail Technique: step over step (ascending) Maintain WB Status: able to maintain weight bearing status STG Status: met Level of [place]: modified independent # of stairs: 6 Utilizes: [...] number to reach at after discharge is [phone]. lan of Care - Sammie Hare RN [...] None Code Status: Full Code Item for education and outreach coordinator Comments Shift Summary: Pt A&Ox4 calm, pleasant Pt OOB to work with PT and for shower Pt tolerating general diet Pt modified independence for ambulation, continue to encourage ambulation Dressings on bilateral arms/L neck remain CDI, R groin dressing has old, dried drainage wit h no swelling/hematoma/pain noted Pt denies pain/discomfort Dx/Tx: Procedure(s) (LRB): Gastric Artery Embolization with 2mm x 8cm coil and [place] 34 and 18 embolic (N/A) Anesthesia Type [...] verification (08/20/171511) Method of Communication: Call (08/20/171511) Abalone Sheller for Provider: Sammie NUNEZ (08/20/171511) Response: See [...] of Care - Drew gautam, Gwen Yousif, GRAIN THRESHER - 08/21/2017 12:10 PM PDTProblem: Patient Care [...] to continue current therapy. ospital Course - Victor, Riky Avendaño MD - 08/21/2017 9:50 AM PDTDiane Julianne Coleman is a 62-year-old femal e with past medical history significant for COPD, CAD s/p NSTEMI ( no PCI), who was transfer red to [facility] for ICU care from [facility] on 08/17 where she was intubated for [...] None Code Status: Full Code Item for education and outreach coordinator Comments Shift Summary: A/O. No pain reported. [...] verification (08/20/171511) Method of Communication: Call (08/20/171511) Abalone Sheller for Provider: Sammie NUNEZ (08/20/171511) Response: See [...] None Code Status: Full Code Item for education and outreach coordinator Comments Shift Summary: Pt oriented. PICC line, [...] verification (08/20/171511) Method of Communication: Call (08/20/171511) Abalone Sheller for Provider: Sammie NUNEZ (08/20/171511) Response: See [...] None Code Status: Full Code Item for education and outreach coordinator Comments Shift Summary: Pt arrived to the [...] Embolization with 2mm x 8cm coil and [place] 34 and 18 embolic (N/A) Anesthesia Type [...] Method of Communication: Face to face (08/20/17899) Abalone Sheller for Provider: Jethro Guthrie RN (08/20/17899) Response: [...] 93 05/10/2017 1130 lan of Care - [facility] evelyn, Lucian Virk RN - [...] e Screening Note Summary: Acknowledge orders for CRITICAL CARE RN swallow evaluation per extubation protocol. OME: WFL. Pt. takin g clear liquids per surgery team without deficits. No overt s/s aspiration noted with consec utive swallows of thin liquids with CRITICAL CARE RN. Recommend diet advancement per surgery team. CRITICAL CARE RN to s/off, please reorder if status changes. [...] today. lan of Care - Volodymyr Butcher, GRAIN THRESHER - 08/20/2017 3:35 AM PDTProblem: Patient Care [...] with COPD with GI bleed, s/p coil [facility] ization of R gastric artery on 08/18. At baseline, she is independent with ADLs and mobility, but has most recently only been able to walk ~150' around house before needing a rest break. She was extubated ~30 minutes prior to PT evaluation. Patient completed supine to sit with min A. She sat on edge of bed [id number] with some dizziness, which lessened over time. [...] chair ) Goal Status: new Level of [place]: independent Transfers Bed to Chair: minimal assist (75% patient effort), 2 person assist required Chair to Bed: minimal assist (75% patient effort), 2 person assist required Utilizing: other (see comments) (hand hold assist) Sit to Stand: contact guard assist Stand to Sit: contact guard assist Utilizing: none Status: new [place] Level: independent Gait Level of Assist: not tested Goal Status: new Goal: independent Device: none Distance: 150' Stairs Comments: STG Status: new Level of [place]: modified independent # of stairs: 6 Utilizes: [...] 8. lan of Care - Volodymyr Butcher, GRAIN THRESHER - 08/19/2017 3:43 AM PDTProblem: Patient Care [...] am. lan of [place]ara - Armando Jones, GRAIN THRESHER - 08/18/2017 5:53 PM PDTProblem: Patient Care [...] RESTRAINT GOALS: Outcome: Unchanged Goal Evaluation: IR [id number] to determine source of LUQ hematoma. No bleed found, however multiple aneury sms found on gastric arteries (see IR note for more detail). Received 5L fluid + 6 unit RBC + 2 unit FFP + 1 unit platelets at outlying facility/in transit to [facility]. Neuro: Drowsy, opens eyes to command. Movement [...] skin issues. [facility]. Pain: Able to rate pain by tapping hand on side of bed. Rates pain at 6/10. Daughter in law and grandson in room from [place], [place]. lan of Care - Caleb Forte, GRAIN THRESHER - 08/18/2017 4:11 AM PDTProblem: Mechanical Ventilation, [...] Power MD edation Documentation - Merrick Gaines TapFunder - 08/18/2017 1:06 AM PDT6 Fr Angioseal used edation Documentation - Merrick Gaines [employer] - 08/18/2017 1: 02 AM PDTSuccessful angiogram ,no angiographic evidence of active bleeding. Abnormal vascula ture . edation Documentation - Jennifer Jordan RN - 08/17/2017 11:57 PM PDTPt arrives from ICU o n monitor and vent per bed with [employer] ARCHITECT and RT who will remain with [...] | | | | | [place] | | | | | | [address] | | | | | | | [...] | MEDICAL | | | | [facility] [address], | | CENTER | | | | [place] [address] | | LABORATORY | | | | [...] + + | [facility] | [address] | [place] [address] | | | [facility] | | | | | LABORATORY [...] | | | | Performed by [facility] [address] | | SACRED | | | | [address] [place] | | HEART | | | | [address] | | MEDICAL | | | | [...] + + | ANAODILIASneha NICHOLAS | [address] | [place] [address] | | | [facility] | | | | | LABORATORY [...] | MEDICAL | | | | [facility] [address], | | CENTER | | | | [place] [address] | | LABORATORY | | | | [...] + + | GILBERTO NICHOLAS | [address] | [place] [address] | | | [facility] | | | | | LABORATORY [...] PROVID ENCE | | | | by [facility] [address], | | SACRED | | | | [place] [address] | | HEART | | | |Performed by [facility] [address], [place] [address] | | MEDICA L | | | [...] + + | GILBERTO NICHOLAS | [address] [place] | [place] [address] | | | [facility] | | | | | CELESTE [...] | | | | Performed by [facility] [address] | | SACRED | | | | [address] [place] | | HEART | | | | [address] | | MEDICAL | | | | [...] + + | GILBERTO NICHOLAS | [address] | [place] [address] | | | [facility] | | | | | CELESTE [...] | | | | Performed by [facility] [address] | | SACRED | | | | [address] [place] | | HEART | | | | [address] | | MEDICAL | | | | [...] + + | GILBERTO NICHOLAS | [address] | [place] [address] | | | [facility] | | | | | LABORATORY [...] + + + + | Product | [id number] | | REFERENCE | | | Code | | | LAB [facility] | | | | | | [facility] | | | | | | [facility] | | | | | | B[facility]OD | | | | | | CENTER | | + + + + + + | UNIT # | [id number] | | REFERENCE | | | | | | LAB [facility] | | | | | | [facility] | | | | | | [facility] | | | | | | BLOOD | | | | | | CENTER | | + + + + + + | UNIT ABO | O | | REFERENCE | | | | | | LAB [facility] | | | | | | [facility] | | | | | | [facility] | | | | | | BLOOD | | | | | | CENTER | | + + + + + + | UNIT RH | POS | | REFERENCE | | | | | | LAB [facility] | | | | | | [facility] | | | | | | [facility] | | | | | | BLOOD | | | | | | CENTER | | + + + + + + | Unit Status | IS | | REFERENCE | | | | | | LAB [facility] | | | | | | [facility] | | | | | | [facility] | | | | | | BLOOD | | | | | | CENTER | | + + + + + + | Blood | [id number] | | REFERENCE | | | Product | | | LAB [facility] | | | Expiration | | | [facility] | | | Date and | | | [facility] | | | Time | | | BLOOD | | | | | | CENTER | | + + + + + + | Product | [id number] | | REFERENCE | | | Blood Type | | | LAB [facility] | | | Barcode | | | [facility] | | | | | | [facility] | | | | | | BLOOD | | | | | | CENTER | | + + + + + + | Product | [id number] | | REFERENCE | | | Code | | | LAB [facility] | | | | | | [facility] | | | | | | [facility] | | | | | | BLOOD | | | | | | CENTER | | + + + + + + | UNIT # | [id number] | | REFERENCE | | | | | | LAB [facility] | | | | | | [facility] | | | | | | [facility] | | | | | | BLOOD | | | | | | CENTER | | + + + + + + | UNIT ABO | O | | REFERENCE | | | | | | LAB [facility] | | | | | | [facility] | | | | | | [facility] | | | | | | BLOOD | | | | | | CENTER | | + + + + + + | UNIT RH | POS | | REFERENCE | | | | | | LAB [facility] | | | | | | [facility] | | | | | | [facility] | | | | | | BLOOD | | | | | | CENTER | | + + + + + + | Unit Status | RE | | REFERENCE | | | | | | LAB [facility] | | | | | | [facility] | | | | | | [facility] | | | | | | BLOOD | | | | | | CENTER | | + + + + + + | Blood | [id number] | | REFERENCE | | | Product | | | LAB [facility] | | | Expiration | | | [facility] | | | Date and | | | [facility] | | | Time | | | BLOOD | | | | | | CENTER | | + + + + + + | Product | [id number] | | REFERENCE | | | Blood Type | | | LAB [facility] | | | Barcode | | | [...] + + + | Specimen Expiration Date: [id number] | REFERENCE LAB | | | [facility] | | | [facility] | | | [facility]OD CENTER | + + + + + + + + | Performing | Address | City/State/Zipcode | Phone Number | | Organization | | | | + + + + + | REFERENCE LAB | [address] | [place] [address] | [phone] | | [facility] | | | | | [facility] B[facility]OD [...] | | | | Performed by [facility] [address] | | SACRED | | | | [address] [place] | | HEART | | | | [address] | | MEDICAL | | | | [...] + + | GILBERTO NICHOLAS | [address] | [place] [address] | | | [facility] | | | | | CELESTE [...] | | | | Performed by [facility] [address] | mmol/L | SACRED [...] | [address] | [place] [address] | | | [facility]ICAL [facility]ENTER | [...] | | | | Performed by [facility] [address]. | mmol/L | SACRED | | | | [address] [place], [place] | | HEART | | | | [address] | | MEDICAL | | | | [...] + + | GILBERTO NICHOLAS | [address] | [place] [address] | | | [facility] | | | | | LABORATORY [...] | | | | Performed by [facility] [address] | | SACRED | | | | [address] [place] | | HEART | | | | [address] | | MEDICAL | | | | [...] + + | [facility] | [address] | [place] [address] | | | [facility] | | | | | LABORATORY [...] | | | | 3.5Performed by [facility] 101 | | LABORATORY | | | | [address] [place], [place] | | CERNER | | | | [address] | | | | + + + [...] Ave. | [place] | | | [facility] | | | | | LABORATORY [...] | | | Venous | by [facility] [address], | mmol/L | SACRED | | | | [place] | | HEART | | | |Performed by [facility] [address], [place] | | MEDICAL | | | | [...] + + | GILBERTO NICHOLAS | [address] [place] | [place] [address] | | | [facility] | | | | | LABORATORY [...] | MEDICAL | | | | [facility] [address], | | [place] | | | | [place] [address] | | LABORATORY | | | | [...] + + | GILBERTO SACRED | [address] | [place] [address] | | | [facility] | | | | | LABORATORY [...] PROVID ENCE | | | | [facility] [address] [facility] [address], | | SACRED | | | | [place] [address] | | HEART | | | |Performed by [facility] [address], [place] [address] | | MEDICA L | | | [...] + + | GILBERTO NICHOLAS | [address] | [place] [address] | | | [facility] | | | | | LABORATORY [...] PROVIDENCE | | | | by [facility] [address], | mmol/L | SACRED | | | | [place] [address] | | HEART | | | |Performed by [facility] [address], [place] [address] | | MEDICAL | | | | [...] + + | GILBERTO NICHOLAS | [address] | [place] [address] | | | [facility] | | | | | LABORATORY [...] | PROVIDENCE | | | | [facility] [address], | | SACRED | | | | [place] [address] | | HEART | | | |Performed by [facility] [address], [place] [address] | | MEDICAL | | | [...] + + | GILBERTO NICHOLAS | [address] | [place] [address] | | | [facility] | | | | | LABORATORY [...] | | | ARTERIAL | by [facility] [address], | | SACRED | | | | [place] [address] | | HEART | | | |Performed by [facility] [address], [place] [address] | | MEDICAL | | | | [...] GILBERTO NICHOLAS | [address] [facility] [address] | [place] [address] | | | [facility] | | | | | LABORATORY [...] | | | | Performed by [facility] [address] | | SACRED | | | | [address] [place] | | HEART | | | | [address] | | MEDICAL | | | | [...] + + | GILBERTO NICHOLAS | [address] | [place] [address] | | | [facility] | | | | | LABORATORY [...] | | | ARTERIAL | by [facility] [address], | | SACRED | | | | [place] [address] | | HEART | | | |Performed by [facility] [address], [place] [address] | | MEDICAL | | | | [...] GILBERTO NICHOLAS | [address] [facility] [address]. | [place] [address] | | | [facility] | | | | | CELESTE [...] + + + + + | MANJU ORTHO RN AB | <0.2 | 0.0 - 0.9 [...] | | | | | | [facility] [address] | | | | | | [address] | | | | | | [place] | | | | | | [id number] David J | | | | | | Ph:[id number] | | | | + + + + + + + + | Specimen | + + | Blood specimen | | (specimen) | + + + + + + + | Performing | Address | City/State/Zipcode | Phone Number | | Organization | | | | + + + + + | GILBERTO NICHOLAS | [address] [facility] [address] | [place] [address] | | | [facility] | | | | | LABORATORY [...] | | | Arterial | by [facility] [address], | mmol/L | SACRED | | | | [place] [address] | | HEART | | | |Performed by [facility] [address], [place] [address] | | MEDICAL | | | | [...] + + | GILBERTO NICHOLAS | [address] | [place] [address] | | | [facility] | | | | | CELESTE [...] | | | ARTERIAL | by [facility] [address], | | SACRED | | | | [place] [address] | | HEART | | | |Performed by [facility] [address], [place] [address] | | MEDICAL | | | | [...] + + | GILBERTO NICHOLAS | [address] | [place] [address] | | | [facility] | | | | | LABORATORY [...] | | | | Performed by [facility] [address] | | SACRED | | | | [address] [place] | | HEART | | | | [address] | | MEDICAL | | | | [...] + + | [facility] | [address] | [place] [address] | | | [facility] | | | | | LABORATORY [...] | | | | Performed by [facility] Alexandra Santiago | | [place] | | | | [address], [place] | | LABORATORY | | | | [address] | | [place] | | | | [...] [address] | [place] [address] | | | [facility] | | | | | LABORATORY [...] | | Arterial | Performed by [facility] [address] | mmol/L | SACRED | | | | [address], [place] | | HEART | | | | [address] | | MEDICAL | | | | [...] GILBERTO NICHOLAS | [address] [facility] [address] | [place] [address] | | | [facility] | | | | | CELESTE [...] PROVIDENCE | | | | by [facility] [address], | mmol/L | SACRED | | | | [place] [address] | | HEART | | | |Performed by [facility] [address], [place] [address] | | MEDICAL | | | | [...] + + | GILBERTO NICHOLAS | [address] | [place] [address] | | | [facility] | | | | | LABORATORY [...] | | HEART | | | | [address] | | MEDICAL | | | | [...] + + | GILBERTO NICHOLAS | [address] | [place] [address] | | | [facility] | [...] | | | | Performed by [facility] [address] | | SACRED | | | | [address] [place] | | HEART | | | | [address] | | MEDICAL | | | | [...] + + | GILBERTO NICHOLAS | [address] | [place] [address] | | | [facility] | | | | | CELESTE [...] | | | Venous | by [facility] [address] [facility] [address], | mmol/L | SACRED | | | | [place] [address] | | HEART | | | |Performed by [place] [address] [facility] [address], [place] [address] | | MEDICAL | | | | [...] [address] | [place] [address] | | | [facility] | | | | | LABORATORY [...] | MEDICAL | | | | [facility] [address], | | CENTER | | | | [place] [address] | | LABORATORY | | | | [...] + + | GILBERTO NICHOLAS | [address] | [place] [address] | | | [facility] | | | | | CELESTE [...] | | HEART | | | | [facility] | | MEDICAL | | [...] IOM | | | | | | ([facility]). | | | | | [...] Alon; | | | | | | [phone]):[phone].Performed | | | | | | At: [facility] | | | | | | [id number] | | | | | | [address] [place], [place] | | | | | | [id number] Daniel | | | | | | Allie HU Ph:[phone] | | | | + + + + + + + + | Specimen | + + | Blood specimen | | (specimen) | + + + + + + + | Performing | Address | City/State/Zipcode | Phone Number | | Organization | | | | + + + + + | GILBERTO NICHOLAS | [address] | [place] [address] | | | [facility] | | | | | CELESTE [...] | | | Venous | by [facility] [address], | mmol/L | SACRED | | | | [place] [address] | | HEART | | | |Performed by [place] [address], [place] [address] | | MEDICAL | | | | [...] + + | GILBERTO NICHOLAS | [address] | [place] [address] | | | [facility] | | | | | LABORATORY [...] PROVID ENCE | | | Cells | [facility] [address], | | SACRED | | | | [place] [address] | | HEART | | | |Performed by [facility] [address], [place] [address] | | MEDICA L | | | [...] GILBERTO NICHOLAS | [address] [facility] [address] | [place] [address] | | | [facility] | | | | | LABORATORY [...] PROVIDENCE | | | | by [facility] [address], | mmol/L | SACRED | | | | [place] [address] | | HEART | | | |Performed by [facility] [address], [place] [address] | | MEDICAL | | | | [...] SACRED | [address] | [place] [address] | | | [facility] | | | | | LABORATORY [...] | | Arterial | Performed by [facility] [address] | mmol/L | SACRED | | | | [address], [place] | | HEART | | | | [address] | | MEDICAL | | | | [...] + + | GILBERTO NICHOLAS | [address] | [place] [address] | | | [facility] | | | | | LABORATORY [...] E | | | Normalized | by [facility] [address] [facility] [address], | mg/dL | SACRED | | | | [place] [address] | | HEART | | | |Performed by [facility] [address], [place] [address] | | MEDICAL | | | | [...] + + | GILBERTO NICHOLAS | [address] | [place] [address] | | | [facility] | | | | | CELESTE [...] | | | ARTERIAL | by [facility] [address], | | SACRED | | | | [place] [address] | | HEART | | | |Performed by [facility] [address], [place] [address] | | MEDICAL | | | | [...] + + + + + | GILBERTO NICOHLAS | [address] [place] [address]. | [place] [address] | | | [facility] | | | | | CELESTE [...] | | Venous | Performed by [facility] [address] | mmol/L | SACRED | | | | [address] [place] | | HEART | | | | [address] | | MEDICAL | | | | [...] Ave. | [place] | | | [facility] | | | | | LABORATORY [...] PROVIDENCE | | | | by [facility] [address], | | SACRED | | | | [place] | | HEART | | | |Performed by [facility] [address], [place] [address] | | MEDICAL | | | | [...] + + | CHAVEZE YU | [address] | [place] [address] | | | [facility] | | | | | LABORATORY [...] | | | | Performed by [facility] [address] | | SACRED | | | | [address], [place], [place] | | HEART | | | | [address] | | MEDICAL | | | | [...] SACRED | [address] | [place] [address] | | | [facility] | [...] Seldinger technique, a 6 | | | [place]ian sheath was positioned into the right common femoral artery and | | | attached to a flush system. A 5 [place] Scott 2 catheter was | | | then positioned through a 6 [place]ambian guiding catheter an utilized to | | [...] | Hemostasis was achieved with a 6 [place] Angio-Seal device. | | | Maximum sterile [...] | | standard Seldinger technique, a 6 [place] sheath was positioned into | | the right common femoral artery and attached to a flush system. | | | | A 5 [place] Scott 2 catheter was then positioned through a 6 [place]ian | | guiding catheter an utilized to [...] performed. Hemostasis was achieved with a 6 [place] | | Angio-Seal device. | | | [...] | | | | Performed by [facility] [address] | | SACRED | | | | [address] [place] | | HEART | | | | [address] | | MEDICAL | | | | [...] | + + + + + | NAALENO NICHOLAS | [address] | [place] [address] | | | [facility] | | | | | LABORATORY [...] | | Venous | Performed by [facility] [address]. | mmol/L | SACRED | | | | [address] [place] | | HEART | | | | [address] | | MEDICAL | | | | [...] | [address] | [place] [address] | | | [facility] | | | | | LABORATORY [...] | | Normalized | Performed by [facility] [address] | mg/dL | SACRED [...] [address] | [place] [address] | | | [facility] | [...] PROVIDENCE | | | | by [facility] [address] [facility], | mmol/L | SACRED | | | | [place] [address] | | HEART | | | |Performed by [facility] [address], [place] [address] | | MEDICAL | | | | [...] + + | ANAODILIASneha NICHOLAS | [address] | [place] [address] | | | [facility] | | | | | LABORATORY [...] | | | | Performed by [facility] [address] | | SACRED | | | | [address] [place], [place] | | HEART | | | | [address] | | MEDICAL | | | | [...] + + | GILBERTO NICHOLAS | [address] | [place] [address] | | | HEART [facility] | | | | | [...] CE | | | | by [facility] [address] [facility] [address], | | SACRED | | | | [place] [address] | | HEART | | | |Performed by [facility] [address], [place] [address] | | MEDICAL | | | | [...] + + | ANAODILIASneha DANYJAD | [address] | [place] [address] | | | [facility] | | | | | LABORATORY [...] | | | | Performed by [facility] [address] | | SACRED | | | | [address] [place] | | HEART | | | | [address] | | MEDICAL | | | | [...] + + | GILBERTO NICHOLAS | [address] | [place] [address] | | | [facility] | | | | | LABORATORY [...] | | REPORT | Performed by [facility] [address] | | SACRED | [...] [address] | [place] [address] | | | [facility]ICAL [facility]ENTER | [...] | | REPORT | Performed by [facility] [address] | | SACRED | | | | [address] [place] | | HEART | | | | [address] | | MEDICAL | | | | [...] GILBERTO NICHOLAS | [address] [facility] [address] | [place] [address] | | | [facility] | | | | | LABORATORY [...] Number [id number] Patient Number | | | [id number] Date of Study 08/18/2017 Visit | | | Number [id number] | | | Referring Physician BRI Sánchez Date of | | | 1955 Product Picker Julien Zamora Age | | | 62 year(s) Interpreting | | | [facility] | | | Inside Sales Associate | | | Mara Patton MD Gender | | | Female Nurse | | | Stress Tissue Technologist Procedure Type of Study TTE procedure: | [...] Atrium Left Ventricle EF | | | Tqfjzmcct62% | | | Electronically signed by SugarCRMMara kennedy MD(Interpreting physician) on | | | [...] | | | | | | EF Gbqjabkxx27% | | | | | + + --+ + + | Procedure Note | + + | Avelino, Daniel Results In - 08/18/2017 11:38 AM PDT Transthoracic Echocardiography Report | | (TTE) Demographics Patient Name MARCELLA MONTAÑO I Room Number 258 Patient | | Number [id number] Date of Study 08/18/2017 Visit Number [id number] | | Referring Physician BRI Sánchez Date of | | 1955 Product Picker Julien Zamora Age 62 year(s) | | Interpreting [facility] Inside Sales Associate | | Mara Patton MD Gender | | Female Nurse Stress TechnicianProcedureType of | | Study TTE procedure: ECHO Complete, Add-on Items, COLOR DOPPLER, COMPLETE | | DOPPLER.Procedure dateDate: 08/18/2017Start: 07:21 AMTechnical Quality: Adequate | | visualizationStudy Location: PortableIndications: [facility] 425.4/ I42.9.Patient | | Status: RoutineHeight: [...] Left Atrium Left Ventricle EF | | Vvdkgxnyj00% | |Conclusions | |Summary | |1. Small [...] Left Ventricle | | | | EF Fexziplvb91% | + + + +---------+ + + [...] | | Arterial | Performed by [facility] [address] | mmol/L | SACRED | | | | [address] [place], [place] | | HEART | | | | [address] | | MEDICAL | | | | [...] + + | GILBERTO NICHOLAS | [address] | [place] [address] | | | [facility] | | | | | LABORATORY [...] E | | | Normalized | by [place] [address] [facility] [address], | mg/dL | SACRED | | | | [place] [address] | | HEART | | | |Performed by [facility] [address], [place] [address] | | MEDICAL | | | | [...] + + | GILBERTO NICHOLAS | [address] | [place] [address] | | | [facility] | | | | | LABORATORY [...] | | | | Performed by [facility] [address] | | SACRED | [...] [facility] SACRED | [address] | [place] [address] | | | [facility] | [...] | | | ARTERIAL | by [facility] [address], | | SACRED | | | | [place] [address] | | HEART | | | |Performed by [facility] [address], [place] [address] | | MEDICAL | | | | [...] + + | GILBERTO NICHOLAS | [address] | [place] [id number] | | | [facility] | | | | | LABORATORY [...] PROVID ENCE | | | | by [facility] [address], | | SACRED | | | | [place] [address] | | HEART | | | |Performed by [facility] [address], [place] [address] | | MEDICA L | | | [...] + + | GILBERTO NICHOLAS | [address] | [place] [id number] | | | [facility] | | | | | LABORATORY [...] | LABORATORY | | | | [facility] [address], | | [place] | | | | [place] [address] | | | | + + + + + + + + | Specimen | + + | Blood specimen | | (specimen) | + + + + + + + | Performing | Address | City/State/Zipcode | Phone Number | | Organization | | | | + + + + + | [facility] | [address] | [place] [address] | | | [facility] | | | | | LABORATORY [...] NCE | | | | by [facility] [address], | | SACRED | | | | [place] [address] | | HEART | | | |Performed by [facility] [address], [place] [address] | | MEDICAL | | | | [...] + + | ANAODILIASneha YU | [address] | [place] [id number] | | | [facility] | | | | | CELESTE [...] CE | | | | by [facility] [address], | | SACRED | | | | [place] [address] | | HEART | | | |Performed by [facility] [address] [facility] [address], [place] [address] | | MEDICAL | | | | [...] + + | GILBERTO NICHOLAS | [address] | [place] [id number] | | | [facility] | | | | | LABORATORY [...] | MEDICAL | | | | [facility] [address], | | CENTER | | | | [place] [address] | | LABORATORY | | | | [...] + + | ANAODILIASneha YU | [address] | [place] [id number] | | | [facility] | | | | | LABORATORY [...] CHAVEZ E | | | | [facility] [address], | | SACRED | | | | [place] [address] | | HEART | | | |Performed by [facility] [address], [place] [address] | | MEDICAL | | | | [...] + + | ANAODILIASneha NICHOLAS | [address] | [place] [address] | | | [facility] | | | | | LABORATORY [...] - 1.030 | [facility] | | | [place], | | | SACRED | | | [...] | | SOURCE | Performed by [facility] [address] | | SACRED | | | | [address] [place] | | HEART | | | | [id number] | | MEDICAL | | | | [...] + + | GILBERTO NICHOLAS | [address] | [place] [address] | | | [facility] | | | | | CELESTE [...] PROVID ENCE | | | | by [facility] [address], | | SACRED | | | | [place] [address] | | HEART | | | |Performed by [facility] [address], [place] [address] | | MEDICA L | | | [...] + + | GILBERTO NICHOLAS | [address] | [place] [address] | | | HEART [facility] | | | | | [...] | | | Source | by [facility] [address], | | SACRED | | | | [place] [address] | | HEART | | | |Performed by [facility] [address], [place] [address] | | MEDICAL | | | | [...] + + | GILBERTO NICHOLAS | [address] | [place] [address] | | | [facility] | | | | | LABORATORY [...] and a short | | | 5 Zambian vascular sheath was placed. A 5 Zambian Scott 1 catheter | | | was [...] performed and a short | | 5 Zambian vascular sheath was placed. A 5 [place] Scott 1 catheter | | was formed [...] | | | | seconds.Performed by [facility] | | | | | | [address], | | | | | | [place] [address] | | | | + + + + + + + + | Specimen | + + | Blood specimen | | (specimen) | + + + + + + + | Performing | Address | City/State/Zipcode | Phone Number | | Organization | | | | + + + + + | [facility] | [address] | [place] [address] | | | [facility] | [...] | | Normalized | Performed by [facility] [address] | mg/dL | [facility]CRED | | | | [address] [place] | | HEART | | | | [id number] | | MEDICAL | | | | [...] + + | [facility] | [address] | [place] | | | [facility] [...] [facility] | | | | by [facility] [address], | mmol/L | SACRED | | | | [place] | | HEART | | | |Performed by [facility] [address], [place] | | MEDICAL | | | [...] + + | GILBERTO NICHOLAS | [address] | [place] [address] | | | [facility] | | | | | LABORATORY [...] [facility] | | | | by [facility] [address], | mmol/L | SACRED | | | | [place] [address] | | HEART | | | |Performed by [facility] [address] [facility] [address] [place] [address] | | MEDICAL | | | | [...] + + | GILBERTO NICHOLAS | [address] | [place] [address] | | | [facility] | | | | | LABORATORY [...] | | | | Performed by [facility] [address] | | SACRED | [...] SACRED | [address] | [place] [address] | | | [facility] | [...] | | | ARTERIAL | by [facility] [address], | | SACRED | | | | [place] [address] | | HEART | | | |Performed by [facility] [address], [place] [address] | | MEDICAL | | | | [...] + + | GILBERTO NICHOLAS | [address] | [place] [address] | | | [facility] | | | | | LABORATORY [...] NCE | | | | by [facility] [address], | | SACRED | | | | [place] [address] | | HEART | | | |Performed by [facility] [address], [place] [address] | | MEDICAL | | | | [...] [address] | [place] [address] | | | [facility] | | | | | LABORATORY [...] | | | | | | LAB [facility] [place] | | | | | | [facility] | | | | | | [facility] | | | | | | [facility] | | | | | | [facility] | | + + + + + + | Rh Type | Positive | | [facility]FER[facility] | | | | | | LAB [facility] | | | | | | [facility] | | | | | | [facility] | | | | | | [facility] | | | | | | [facility] | | + + + + + + + + | Specimen | + + | | + + + + + | Narrative | Performed At | + + + | Specimen Expiration Date: [id number] | [facility] | | | [place] | | | [facility] | | [facility] | + + + + + + + + | Performing | Address | City/State/Zipcode | Phone Number | | Organization | | | | + + + + + | [facility] | [address] | [place] | [phone] | | [facility] [place] [facility] | | | | | [facility] [...] CE | | | | by [facility] [address], | | SACRED | | | | [place] | | HEART | | | |Performed by [facility] [address], [place] | | MEDICAL | | | [...] + + | GILBERTO NICHOLAS | [address] | [place] [address] | | | [facility] | | | | | LABORATORY [...] | MEDICAL | | | | [facility] [address], | | CENTER | | | | [place] [address] | | LABORATORY | | | | [...] + + | [facility] | [address] | [place] [address] | | | [facility] | | | | | LABORATORY [...] | | | Basophils | by [facility] [address], | [place]/u[place] | SACRED | | | | [place] [address] | | HEART | | | |Performed by [facility] [address], [place] [address] | | MEDICA L | | | [...] | [address] | [place] [address] | | | [facility] | | | | | LABORATORY [...] | | | | | | LAB [facility] | | | | | | [facility] | | | | | | [facility] | | | | | | [facility] | | | | | | [facility] | | + + + + + + | Rh Type | PositiveComment: Patient | | REFERENCE | | | | is remote crossmatch | | LAB [facility] | | | | eligible | | [facility] | | | | | | [facility] | | | | | | [facility] | | | | | | [facility] | | + + + + + + | Antibody | Negative | | REFERENCE | | | Screen | | | LAB [facility] [place] | | | | | | [facility] [...] + + + | Specimen Expiration Date: [id number] | [facility] | | | [facility] [place] [facility] | | | [facility] | | | [facility] | + + + + + + + + | Performing | Address | City/State/Zipcode | Phone Number | | Organization | | | | + + + + + | [facility] | [address] | [place] [address] | [phone] | | [facility] [place] | | | | | [facility] [...] | | | | | | Starting [facility] 08/18/17 at 0508 | | | [...] | | | | < 4.75, Starting [facility] 08/18/17 at | | | | [...]
--- OUTSIDE RECORDS SUMMARY | ~2019-12-07 | XMS | Clinical Summary ---
Demographics + + + | Address | [address] | | | [place] [address] | + + + | Home Phone | | + + + | Preferred Language | Unknown | + + + | Marital Status | | + + + | Sabianist Affiliation | [phone] | + + + [...] [place] | | | | | [address] | | + + + + + | Mila Desai | ECON | Unknown | | + + + + + Care Team Providers + +------+ + | Care Sales Clerk Food Name | Role | Phone | + [...] | | | | | [place] | | | | | | [address] | | | | | | | [...] | | | | | 2021 | /[id number] | | 1 on 08/18/2017 by Dilcia, [...] +--------+ +---------+--------+ | MEDICARE | MEDICA | [id number] | 06/13/19 | [phone] | | Medica | | | RE | | 19-Pre | 5 | | re | | | PART A | | sent | | | | | | AND B | | | | | | + +--------+ +--------+ +---------+--------+ | [employer] | [employer] | [id number] | Effect | [phone] | | Medica [...] [place] | | | 2 (Home) | [address] | + +--------+ +--------+ + + | JaredAmy Julianne | Person | Self | [birth year] | [address] | | | al/Fam | | [phone] | [phone] | [place], [place] | | | [place] | | | 2 (Home) | [address] | + +--------+ +--------+ + + Advance Directives + + + + + | Type | Date Recorded | Patient | Explanation | | | | 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
--- OUTSIDE RECORDS SUMMARY | ~2019-12-07 | XMS | Encounter Summary ---
Demographics + + + | Address | [address] | | | [place] [address] | + + + | Home Phone [...] | [place] | | | | | [phone] | | + + + + + | Mila Desai | ECON | Unknown | | + + + + + Care Team Providers + +------+ + | Care Control And Recovery Special Tactics Name | Role | Phone | + [...] | Surgery | GILBERTO NICHOLAS | Ion oPwer, | GI BLEED | | 2018 - | | [facility] | MD [address] | | | | | INTRA OP [address] | [place] | | | 08/18/ | | [place] | [place] [address] | | | 2017 | | [id number] | [phone] | | | | | [phone] | | | +--------+---------+ + + + [...] + + + | Blood Pressure | 113/80 | 08/18/2017 12:00 AM | | | | | PDT | | + + + + + | Pulse | 105 | 08/18/2017 12:00 AM | | | | | PDT | | + + + + + | Temperature | 37.3 C (99.1 F) | 08/18/2017 12:00 AM | | | | | PDT | | + + + + + | Respiratory Rate | 18 | 08/18/2017 12:30 AM | | | | | PDT | | + + + + + | Oxygen Saturation | 99% | 08/18/2017 12:00 AM | | | | | PDT | | + + + + + | Inhaled Oxygen | - | - | | | Concentration | | | | + + + + + | Weight | - | - | | + + + + + | Height | - | - | | + + + + + | Body Mass Index | - | - | | + [...] surgey Follow Up Appointments: Bry Vaughn DO [address] [facility] [address] [place] [address] Schedule an appointment as soon as possible for a visit Discharge Disposition: Home Consultants This Admission: Vascular surgery, General Surgery, Interventional Radiology Hospital Course: Amy Coleman is a 62-year-old female with past medical history significant for COPD, CAD s/p NSTEMI ( no PCI), who was transferred to [facility] for ICU care from [place] on 08/17 wh ere she was intubated [...] going home to continue duo nebs at [facility]. She is being discharged [...] this chart may have been created with Right Skills voice recognition software. Occasi onal wrong-word or [...] urine. Belly (abdominal) pain Date Last Reviewed: 09/12/201519990469-1091 [employer]. [address] [place] [address], [place] [address]. All righ ts reserved. This information is [...] hours. You may go home the odilia . Or you may stay in the hospital or surgery center one or more nights. Follow any inst ructions you have been given about recovering at home. Date Last Reviewed: 02/12/201619990393-2315 [employer]. [address] [place] [address]. All righ ts reserved. This information is not intended as a substitute for professional medical care. Always follow your healthcare professional's instructions. [facility] Patient Belongings Amy Juliannefarshad Coleman 1955 Patient Signature: Clinician/Knitting Tester Signature: Discharge Instructions: After Your Surgery You [...] you feel better. Take it as told, rosalie efore pain becomes severe. Also, ask your [...] interact with your prescription medicines or other emxa-lew-blwcsrz (OTC) medicines. Some prescription medicines have acetaminophen and other ingredients.Using both prescription a nd OTC acetaminophenfor paincan cause you to overdose. Readthe labels on your OTC medi ecu health care. This will help youto clearly know [...] of taking these medicines. Date Last Reviewed: 02/12/201619992043-2760 [employer]. [address] [place] [address], [place] [address]. All righ ts reserved. This information is [...] is a 62 year old female from [place], [place] with [facility] Medicaid insurance. SW received referral for d/c [...] ( no PCI), who was transferred to [facility] for ICU care from [place] on 08/17 wh ere she was intubated [...] - Single Lumen 05/08/17 0130 Left Forearm yzcg-ldw-ejkmzx catheter syst em 20 gauge 106 days [...] this chart may have been created with Right Skills voice recognition software. Occasi onal wrong-word or sound-alike substitutions may have occurred due to the inherent lobo itations of voice recognition software. Please read the chart carefully and recognize, using context, where these substitutions have occurred Krzysztof Ordaz MD - 08/21/2017 5:47 PM PDTFormatting of this note might be different f rom the original. [facility] General Surgery Team Hospital Day: 5 DATE/TIME: 08/21/2017 [...] Signed by: Krzysztof Montaño MD, 08/21/2017 17:47 [facility] ope, Riky Avendaño MD - 08/21/2017 9:49 AM PDT Patient: Amy Coleman Date of : 1955 Admit Date: 08/17/2017 Date of Service: 08/21/2017 PCP: Bry Vaughn DO Hospital Day: Hospital Day: 5 Hospital Course: Amy Coleman is a 62-year-old female with past medical history significant for COPD, CAD s/p NSTEMI ( no PCI), who was transferred to [facility] for ICU care from [place] on 08/17 wh ere she was intubated [...] weakness with activity Objective: Vital Signs 08/19 0700 - 08/20 0659 08/20 07 - 08/21 [...] - Single Lumen 05/08/17 0130 Left Forearm gbna-thw-mxuzpc catheter syst em 20 gauge 105 days [...] Hold Result Value Ref Range Product Code D9504M86 UNIT # [id number] UNIT ABO O UNIT RH POS Unit Status IS Blood Product Expiration Date and Time Product Blood Type Barcode 5100 Product Code T0840C50 UNIT # [id number] UNIT ABO O UNIT RH POS Unit Status RE Blood Product Expiration Date and Time [id number] Product Blood Type Barcode 5100 Hemoglobin and [...] this chart may have been created with Right Skills voice recognition software. Occasi onal wrong-word or sound-alike substitutions may have occurred due to the inherent lobo itations of voice recognition software. Please read the chart carefully and recognize, using context, where these substitutions have occurred Krzysztof Ordaz MD - 08/20/2017 12:23 PM PDTFormatting of this note might be different f rom the original. [facility] Surgery Team Hospital Day: 4 [...] Signed by: Krzysztof Montaño MD, 08/20/2017 12:23 [facility] Nadia Blount MD - 08/20/2017 10:02 AM PDT Patient: Amy Coleman Date of : 1955 Admit Date: 08/17/2017 Date of Service: 08/20/2017 PCP: Bry Vaughn DO Hospital Day: Hospital Day: 4 Hospital Course: Amy Coleman is a 62-year-old female with past medical history significant for COPD, CAD s/p NSTEMI ( no PCI), who was transferred to [facility] for ICU care from [place] on 08/17 wh ere she was intubated [...] - Single Lumen 05/08/17 0130 Left Forearm rpqa-vpc-aaljbu catheter syst em 20 gauge 104 days [...] this chart may have been created with Dragon voice recognition software. Occasi onal wrong-word or sound-alike substitutions may have occurred due to the inherent lobo itations of voice recognition software. Please read the chart carefully and recognize, using context, where these substitutions have occurred Ann Marie, Vikram Mayes MD - 08/20/2017 5:28 AM PDT Critical Care Progress Note [facility] Date of Service: 08/20/2017 Admit Date: [...] NSTEMI (no PCI, mild disease) presented to [facility] on 08/16 with shortness of breath [...] NSTEMI (no PCI, mild disease) presented to [facility] on 08/16 with shortness of breath [...] Today: Yes Extubated Bowel Function: Last BM: SUPERINTENDENT GAS DISTRIBUTION. Scheduled bowel meds started. Indwelling Bladder Catheter [...] LABORATORY: I personally reviewed recent labs in [facility] and ordered appropriate follow-up domonique dies. Recent [...] Component Value Date PHART 7.36 (L) 08/19/2017 DXT0EIC 44 (H) 08/19/2017 PO2ART 91 (H) 08/19/2017 [id number] 13.3 (L) 08/19/2017 TFB2DEQ 25.2 08/19/2017 BEART -0.2 08/19/2017 CARBOXYHGB 1.0 [...] this chart may have been created with Right Skills voice recognition software. Occasi onal wrong-word or sound-alike substitutions may have occurred due to the inherent lobo itations of voice recognition software. Please read the chart carefully and recognize, using context, where these substitutions have occurred. Krzysztof Ordaz MD - 08/19/2017 2:04 PM PDT [facility] Surgery Team Hospital Day: 3 DATE/TIME: 08/19/2017 [...] Signed by: Krzysztof Montaño MD, 08/19/2017 14:05 [facility] Jarocho Saldaña RRT - 08/19/2017 10:10 AM PDT 08/19/17 1009 Respiratory Assessment Interventions ~ Patient Assessment ~ Multi-disciplinary Rounds Continue current care. Q4 DuonebsElectronically signed by Jarocho Hunt V RATE EXAMINER at 2017 10:10 AM Volodymyr Peña RRT [...] Coleman DATE OF : 1955 MED RECORD: [id number] ASSESSMENT/PLAN PROCEDURE: mesenteric angiogram 6/7 ASSESSMENT: 1. Gastric artery pseudoaneurysm 2. GI [...] 08/19/1761408/18/172018 PHART 7.25* 7.34* PO2ART 58* 139* [id number] 53* 39 BEART -4.1* -4.5* EXAM: General [...] Placed back on rate to reevaluate later. mnadeem, Vikram Mayes MD - 08/19/2017 6:50 AM PDT Critical Care Progress Note [facility] Date of Service: 08/19/2017 Admit Date: [...] NSTEMI (no PCI, mild disease) presented to [facility] on 08/16 with shortness of breath [...] NSTEMI (no PCI, mild disease) presented to [facility] on 08/16 with shortness of breath [...] Today: Yes Extubated Bowel Function: Last BM: SUPERINTENDENT GAS DISTRIBUTION. Scheduled bowel meds started. Indwelling Bladder Catheter [...] LABORATORY: I personally reviewed recent labs in [facility] and ordered appropriate follow-up domonique dies. Recent Labs Lab 08/19/1730508/18/17232708/18/17201808/18/17 0523 08/18/17 0209 WBC -- 11.8* -- -- 19.6* 19.0* HGB 7.5* 7.5* 7.9* < > 11.4 11.6 HCT 21.5* 21.4* 24.3* < > 32.5* 33.4* PLT -- Decreased | 116* -- -- 159 147* < > = values in this interval not displayed. Recent Labs Lab 08/19/1730508/18/17201808/18/17 1156 08/18/17 0523 08/17/179 08/17/17 2235 NA 144 -- -- 140 [...] Component Value Date PHART 7.34 (L) 08/18/2017 PQS3AQQ 39 08/18/2017 PO2ART 139 (H) 08/18/2017 [id number] 11.2 (L) 08/18/2017 AXN3IEU 21.2 (L) 08/18/2017 BEART -4.5 (L) 08/18/2017 [...] this chart may have been created with Right Skills voice recognition software. Occasi onal wrong-word or sound-alike substitutions may have occurred due to the inherent lobo itations of voice recognition software. Please read the chart carefully and recognize, using context, where these substitutions have occurred. ackelyn Minor MD - 0 08/18/2017 5:31 PM PDTDiscussed patient's condition with the family. The abnormal anatomy m akes it difficult to predict the implications of the embolized vessels that are bleeding cruz wolf may result in infarction off portion of his GI tract which would require an exploration a nd resection. At this time the risk of bleeding is much higher and therefore they understan d and agreed for us to proceed with the plan of embolization and occlusion of femoral vessel s shley Joseph, COSTUME MAKER - 0 08/18/2017 6:28 AM PDT Critical Care Progress Note [facility] Date of Service: 08/18/2017 Admit Date: [...] sease only, no PCI) presented to OSH ([place], [place]) initially w/ c/o SOB and was intubated for acute on chronic respiratory failure (ABG prior to intubation: 7.0/98/217/26). Pt then developed hypotension/HD instability for which she required 2 pressors. hgb fell from 15-- >4 and pt rc'd 6u PRBCs, 2uFFP, 1u PLT, 5L NS. CT abdomen showed RP hematoma and pt was tra nsferred to [facility] for further eval of this. 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 Gen surgery consulted as w ell as vascular to determine best approach to vascular issues given high potential for re bl eed. Summary of Significant Events: 08/17: Admitted to [facility]. Intubated. To IR 08/18: Awake, [...] l plan set Bowel Function: Last BM: SUPERINTENDENT GAS DISTRIBUTION. PRN bowel meds available. Indwelling Bladder Catheter Indication: Vasopressors for hemodynamic instability Subjective 24hr interval history: Transferred from [place], [place] to [facility] Afebrile Rc'd 6u PRBCs, 2u [...] LABORATORY: I personally reviewed recent labs in [facility] and ordered appropriate follow-up domonique dies. Recent Labs Lab 08/18/17 0527 08/18/17 0523 08/18/17 0209 08/17/17224008/17/17 2235 WBC -- 19.6* 19.0* -- -- 18.5* HGB 11.7 11.4 11.6 -- < > 11.8 HCT 35.8 32.5* 33.4* -- < > 33.6* PLT -- 159 147* 172 -- 172 < > = values in this interval not displayed. Recent Labs Lab 08/18/17 0508/17/17223808/17/172234 NA 140 -- 139 K 3.8 3.7 [...] Results Component Value Date PHART 7.39 08/18/2017 [id number] 32 08/18/2017 PO2ART 108 (H) 08/18/2017 [id number] 16.2 08/18/2017 VYD0VHR 19.4 (L) 08/18/2017 BEART -5.6 (L) 08/18/2017 [...] this chart may have been created with Right Skills voice recognition software. Occasi onal wrong-word or sound-alike substitutions may have occurred due to the inherent lobo itations of voice recognition software. Please read the chart carefully and recognize, using context, where these substitutions have occurred. Associated attestation - Vikram James MD - 08/18/2017 8:56 AM PDT Physician Attestation Note [facility] Date of Service: 08/18/2017 Reason for critical care: Hemorrhagic shock secondary to intra-abdominal bleeding I reviewed and discussed the patient history, assessment and plan with the KOLE, during pers onal discussion and/or multi-disciplinary rounds. Acute issues or additions to plan of care: 62 year old lady with PMH of COPD, CAD s/p NSTEMI (no PCI, mild disease) presented to [facility] on 08/16 with shortness of breath [...] this chart may have been created with Right Skills voice recognition software. Occasi onal wrong-word or [...] riginal. . Critical Care-Care Progress Note Update [facility] Date of Service: 08/17/2017 Admit Date: 08/17/2017 Pt. Name: Amy Colmean Age: 62 y.o. : 1955 Code Status: [...] called and discussed plans with son, Joseluis ([phone]). He expre ssed understanding and wanted to [...] this chart may have been created with Right Skills voice recognition software. Occasi onal wrong-word or sound-alike substitutions may have occurred due to the inherent lobo itations of voice recognition software. Please read the chart carefully and recognize, using context, where these substitutions have occurred. Ever Piper, ENRIQUE - 08/2017 10:20 PM PDTPatient arrived from OSH on vasopressin and low dose norepinephrine, int ubated on FiO2 50%. Settled into bed. Lung sounds clear/diminished. Tucked in, IR consult ed. documented in this encounter H&P Notes Diana Boyle MD - 08/17/2017 7:14 PM PDT Critical Care Admission History and Physical [facility] Intensive Care Unit Pt. Name: Amy Coleman Age: 62 y.o. : 1955 Code Status: TBD - Full Code by default Date of Admission: 08/17/2017 Primary Care Physician: Bry Vaguhn DO Attending: Faby Rodriguez MD Subjective Chief Concern: Abdominal bleed History of Present Illness: 62 yo F patient with PMH of COPD and previous OK was transferred from [place] to [facility] ICU for further care of [...] CV LHC; Surgeon: Johnny Luther MD; Location: [facility] CV LAB Social History: Social History [...] Labs Lab 08/17/172238 PHART 7.33* PO2ART 193* TPM9XXA 35 BEART -7.8* No results for input(s): TROPONIN in the last 168 hours. Invalid input(s): CKTOTAL, CKMBINDEX No results for input(s): LACTATE in the last 168 hours. Recent Labs Lab 08/17/171 INR 1.3* No results for input(s): BNP [...] discussed the plan Lalito Huggins Lloyd : [phone] I expect this patient will be hospitalized for greater than 2 midnights. I expect the post-hospital plan to be determined once additional information is obtained. Electronically signed by: Diana Boyle MD, 08/18/2017, 0:23 Associated attestation - Faby Rodriguez MD - 08/18/2017 5:15 AM PDTFormatting of this note m ight be different from the original. . Physician Attestation Note [facility] Date of Service: 08/18/2017 Reason for [...] with mild disease, no PCI) presented to [facility] late evening 08/16 with hypoxemic/hyp ercarbic [...] large low density mass in left abdomen [id number] with active extravasation is several locations, ?branches of celiac or SMA. MTP protocol initiated. Stabilized. OSH physicians discussed with critical care, surgery an d interventional radiology and pt transferred to [place]. Upon arrival, she is relatively stable on [...] this chart may have been created with Right Skills voice recognition software. Occasi onal wrong-word or sound-alike substitutions may have occurred due to the inherent lobo itations of voice recognition software. Please read the chart carefully and recognize, using context, where these substitutions have occurred. documented in this encounter Consult Notes Johnny Harmon MD - 08/18/2017 1:29 PM PDTFormatting of this note might be different fro m the original. [facility] VASCULAR CONSULTATION PATIENT NAME: Amy Coleman : [...] is chemia. This was discussed with the zdekzeim-xh-nog and grandson, and also with the intubat [...] Dr Minor. She was transferred yesterday from [place] with an acute intra-abdominal bleed from a [...] history of COPD (chronic obstructive pulmonary disease) (HCC) and NS STANLEY (non-ST elevated myocardial infarction) ([facility]). Allergies Allergen Reactions Amoxicillin Cephalexin Hydroxyzine Hcl [...] CV LHC; Surgeon: Johnny Luther MD; Location: [facility] CV LAB Family History: Her family [...] - 127 21 99 % - - 06/07/18 1100 112/65 37.3 C (99.1 F) - [...] Negative UROBILINOGEN UA <2.0 <2.0 mg/dL Specific [place] >1.060 (H) 1.001 - 1.030 PH UA [...] signed by: Johnny Harmon MD, 08/18/2017 13:35 [facility]gess MD - 08/18/2017 12:21 AM PDT [facility] GENERAL SURGERY CONSULT Primary Care Physician: [...] CV LHC; Surgeon: Johnny Luther MD; Location: [facility] CV LAB MEDICATIONS PRIOR TO ADMISSION [...] 1 puff into the lungs Daily. Historical ProviderMD CURRENT MEDICATIONS Current Facility-Administered Medications Medication Dose [...] 250 mL IVPB 42 mmol Intravenous PRN Rosalie Boyle MD And sodium phosphate 21 mmol in sodium chloride 0.9% 250 mL IVPB 21 mmol Intravenous PRN Rosalie Boyle MD vasopressin (PITRESSIN) 0.2 Units/mL in [...] Signed by: Pedro Londono MD, 08/18/2017 0:21 [facility] documented in thi s encounter Miscellaneous [...] None Code Status: Full Code Item for ticket writer Comments Shift Summary: Pt is alert and oriented. Pain managed w/ [facility] 5 x 1 tab. Frequent heartburn/indigestion. Tums [...] Bowel Movement: 08/20/17 (08/21/17 1600) Pain Management: [facility] Next Dose: CAM CAM Score: no MD Notification: Notification Provider Name/Title: Dr Roman (08/20/171511) Reason for Communication: Critical lab value with read back verification (08/20/171511) Method of Communication: Call (08/20/171511) Scheduling Clerk for Provider: Sammie RN (08/20/17 151) Response: See orders (08/20/171511) Vitals: 08/22/17 1903 [...] 1130 lan of Care - [place] Cent[place], RATE EXAMINER - 08/23/2017 4:14 AM PDTProblem: Patient Care [...] None Code Status: Full Code Item for ticket writer Comments Shift Summary: Alert and oriented x4, VSS, up independently in room and halls. Denies pain. S/P embolization of right visceral artery. ANticipating D/C tomorrow. Patient lives in [facility] and needs advanced notice of D/C to notify her ride to come pick her up. Call light w ithin reach, will continue to monitor. This evening [...] no MD Notification: Notification Provider Name/Title: Dr Rmoan (08/20/171511) Reason for Communication: Critical lab value with read back verification (08/20/171511) Method of Communication: Call (08/20/171511) Scheduling Clerk for Provider: Sammie NUNEZ (08/20/17 9452) Response: See orders (08/20/17 1512) Vitals: 08/22/17 1109 08/22/17 1126 08/22/17 1606 [...] None Code Status: Full Code Item for ticket writer Comments Shift Summary: Pt is alert and oriented. Denied pain through night Right groin dressing with dried drainage Tolerates , denies nausea Rested well Dx/Tx: Procedure(s) (LRB): Gastric Artery Embolization with 2mm x 8cm coil and [place] 34 and 18 embolic (N/A) Anesthesia Type [...] verification (08/20/171511) Method of Communication: Call (08/20/171511) Scheduling Clerk for Provider: Sammie NUNEZ (08/20/171511) Response: See [...] 1130 lan of Care - Sowmya Cevallos, RATE EXAMINER - 08/22/2017 4:58 AM PDTProblem: Patient Care [...] current therapy. lan of Care - H brunoanthonyArmando RN - 08/21/2017 11:03 PM PDTFormatting of [...] None Code Status: Full Code Item for ticket writer Comments Shift Summary: Patient up indp to bathroom and hallway. PICC to LUE double lumen, CDI. Pain tolerable, denies nausea. Resting at this time, will continue to monitor. Possible discharge in AM. Electronically signed by: ARMANDO MONTEIRO RN 08/21/2017 23:02 Dx/Tx: Procedure(s) (LRB): Gastric Artery Embolization with 2mm x 8cm coil and [place] 34 and 18 embolic (N/A) Anesthesia Type [...] verification (08/20/171511) Method of Communication: Call (08/20/171511) Scheduling Clerk for Provider: Sammie RN (08/20/171511) Response: See [...] Sarah Cortes, PT - 08/21/2017 3:05 PM PDTPTSarah co-signed note and indicated score of 23/24 [...] Supine: independent Goal Status: met Level of Guadalupe: independent Transfers Bed to Chair: not tested Chair to Bed: not tested Utilizing: other (see comments) (hand hold assist) Sit to Stand: independent Stand to Sit: independent Utilizing: none Status: met Guadalupe Level: independent Gait Level of Assist: independent Utilizes: none Distance: 300 Goal Status: met Goal: independent Device: none Distance: 150' Stairs # of stairs: 12 Handrail Location: left side (ascending) Level of Guadalupe: independent Utilizes: 1 rail Technique: step over step (ascending) Maintain WB Status: able to maintain weight bearing status STG Status: met Level of Guadalupe: modified independent # of stairs: 6 Utilizes: [...] number to reach at after discharge is [phone]. lan of Care - Sammie Hare RN [...] None Code Status: Full Code Item for ticket writer Comments Shift Summary: Pt A&Ox4 calm, pleasant Pt OOB to work with PT and for shower Pt tolerating general diet Pt modified independence for ambulation, continue to encourage ambulation Dressings on bilateral arms/L neck remain CDI, R groin dressing has old, dried drainage wit h no swelling/hematoma/pain noted Pt denies pain/discomfort Dx/Tx: Procedure(s) (LRB): Gastric Artery Embolization with 2mm x 8cm coil and [place] 34 and 18 embolic (N/A) Anesthesia Type [...] verification (08/20/171511) Method of Communication: Call (08/20/171511) Scheduling Clerk for Provider: Sammie RN (08/20/171511) Response: See [...] 05/10/2017 1130 lan of Care - Drew Gwen gautam, RATE EXAMINER - 08/21/2017 12:10 PM PDTProblem: Patient Care [...] to continue current therapy. ospital Course - Michael, Riky Avendaño MD - 08/21/2017 9:50 AM PDTAmy Julianne Coleman is a 62-year-old femal e with past medical history significant for COPD, CAD s/p NSTEMI ( no PCI), who was transfer red to [facility] for ICU care from [place] on 08/17 where she was intubated for [...] None Code Status: Full Code Item for ticket writer Comments Shift Summary: A/O. No pain reported. [...] Embolization with 2mm x 8cm coil and [place] 34 and 18 embolic (N/A) Anesthesia Type [...] verification (08/20/171511) Method of Communication: Call (08/20/171511) Scheduling Clerk for Provider: Sammie NUNEZ (08/20/171511) Response: See [...] None Code Status: Full Code Item for ticket writer Comments Shift Summary: Pt oriented. PICC line, patent. Up ind. dsg to right groin, dried drainage. Pain controlled with tylenol. Pt tolerated all cares well. Dx/Tx: Procedure(s) (LRB): Gastric Artery Embolization with 2mm x 8cm coil and [place] 34 and 18 embolic (N/A) Anesthesia Type [...] verification (08/20/171511) Method of Communication: Call (08/20/171511) Scheduling Clerk for Provider: Sammie NUNEZ (08/20/171511) Response: See orders (08/20/171511) Vitals: 08/20/17 1550 08/20/17 1610 08/20/17 1940 08/20/175 BP: 141/79 101/77 Pulse: 88 95 87 [...] None Code Status: Full Code Item for ticket writer Comments Shift Summary: Pt arrived to the [...] Embolization with 2mm x 8cm coil and [place] 34 and 18 embolic (N/A) Anesthesia Type [...] Method of Communication: Face to face (08/20/17899) Scheduling Clerk for Provider: Jethro Guthrie RN (08/20/17899) Response: [...] 93 05/10/2017 1130 lan of Care - Lucian Dixon RN - 08/20/2017 1:24 [...] chair, independent to commode. PICC re-dressed by IVNima RN, patent in LUE. Glasses on patient. [...] e Screening Note Summary: Acknowledge orders for DRUMS TEACHER swallow evaluation per extubation protocol. OME: WFL. Pt. takin g clear liquids per surgery team without deficits. No overt s/s aspiration noted with consec utive swallows of thin liquids with DRUMS TEACHER. Recommend diet advancement per surgery team. DRUMS TEACHER to s/off, please reorder if status changes. [...] the floor today. lan of Care - D Volodymyr butler, RATE EXAMINER - 08/20/2017 3:35 AM PDTProblem: Patient Care [...] current care. lan of Care - Dorcas Troncoso, RN - 08/19/2017 6:10 PM PDTProblem: Patient [...] A. She sat on edge of bed [id number] with some dizziness, which lessened over time. She c ompleted sit to stand, stand pivot transfer to bedside chair with 2 person min A for brando pereira. She was fatigued and since recent extubation, therapy did not complete further mob ility at this time. Patient left sitting up in bedside chair with deep breathing exercises, RN aware. PT anticipates the patient will continue to improve mobility in order to DC home w ith family assist, but will continue to evaluate as she progresses with therapy. Further PT at [place] pending progress as well. Physical Therapy will [...] chair ) Goal Status: new Level of Guadalupe: independent Transfers Bed to Chair: minimal assist (75% patient effort), 2 person assist required Chair to Bed: minimal assist (75% patient effort), 2 person assist required Utilizing: other (see comments) (hand hold assist) Sit to Stand: contact guard assist Stand to Sit: contact guard assist Utilizing: none Status: new Guadalupe Level: independent Gait Level of Assist: not tested Goal Status: new Goal: independent Device: none Distance: 150' Stairs Comments: STG Status: new Level of Guadalupe: modified independent # of stairs: 6 Utilizes: [...] Fentanyl 50 and levophed 8. lan of Volodymyr Zuniga RRT - 08/19/2017 3:43 AM PDTProblem: Patient [...] to continue wean as tolerated lan of Maribeth Smallh K, RN - 08/18/2017 7:51 PM PDTProblem: Patient [...] in am. lan of Care - Armando Jones RRT - 08/18/2017 5:53 PM PDTProblem: Patient Care [...] access. Sterile dressing appl ied. lan of [facility] fairbanks RN - 08/18/2017 7:53 AM PDTProblem: Patient [...] RESTRAINT GOALS: Outcome: Unchanged Goal Evaluation: IR [id number] to determine source of LUQ hematoma. No bleed found, however multiple aneury sms found on gastric arteries (see IR note for more detail). Received 5L fluid + 6 unit RBC + 2 unit FFP + 1 unit platelets at outlying facility/in transit to [facility]. Neuro: Drowsy, opens eyes to command. Movement to command. Communicates with family by gal kenyon with finger on family's hand. Cardiac: Sinus [...] skin issues. Foam boots on feet from outlying facility. Pain: Able to rate pain by tapping hand on side of bed. Rates pain at 6/10. Daughter in law and grandson in room from [place], [place]. lan of Care - Caleb Forte, RATE EXAMINER - 08/18/2017 4:11 AM PDTProblem: Mechanical Ventilation, [...] Power MD edation Documentation - Merrick Gaines Courtesy Booth Cashier - 08/18/2017 1:06 AM PDT6 Fr Angioseal used edation Documentation - Merrick Gaines Courtesy Booth Cashier - 08/18/2017 1: 02 AM PDTSuccessful angiogram ,no angiographic evidence of active bleeding. Abnormal vascula ture . edation Documentation - Jennifer Jordan RN - 08/17/2017 11:57 PM PDTPt arrives from ICU o n monitor and vent per bed with QUILTING MACHINE HELPER and RT who will remain with pt [...] and Rehabilitation | MD Jaquez W Katie Ram | | | | | | [place] | | | | | | [id number] | | | | | [...] Estimated | 105Comment: eGFR<60 | >=90 | PROVID[facility]ILIAE | | | GFR | consistent with impaired | mL/min/1.73m2 | [facility] | | | | kidney | | HEART | | | | function.Performed by | | MEDICAL | | | | [facility] [address], | | CENTER | | | | [place] [address] | | LABORATORY | | | | [...] + + | [facility] | [address] | [place] [address] | | | [facility] | [...] [facility] | | | | Performed by [facility] [address] | | SACRED | | | | [address] [place] | | HEART | | | | [address] | | MEDICAL | | | | [...] + | [facility] | [address] | [place] [address] | | | [facility] | | | | | LABORATORY [...] | | MEDICAL | | | | [facility] [address], | | CENTER | | | | [place] [address] | | LABORATORY | | | | [...] + | GILBERTO NICHOLAS | [address] | [place] [address] | | | [facility] | | | | | LABORATORY [...] PROVID ENCE | | | | by [facility] [address], | | SACRED | | | | [place] [address] | | HEART | | | |Performed by [facility] [address], [place] [address] | | MEDICA L | | | [...] + + | ANAODILIASneha NICHOLAS | [address] | [place] [address] | | | [facility] | | | | | LABORATORY [...] [facility] | | | | Performed by [facility] [address] | | SACRED | | | | [address] [place] | | HEART | | | | [address] | | MEDICAL | | | | [...] + + | GILBERTO NICHOLAS | [address] | [place] [address] | | | [facility] | | | | | LABORATORY [...] [facility] | | | | Performed by [facility] [address] | | SACRED | | | | [address] [place] | | HEART | | | | [address] | | MEDICAL | | | | [...] + + | GILBERTO NICHOLAS | [address] | [place] [address] | | | [facility] | | | | | LABORATORY [...] + + + + | Product | [id number] | | REFERENCE | | | Code | | | [facility] | | | | | | [facility] | | | | | | [facility] | | | | | | [facility] | | | | | | CENTER | | + + + + + + | UNIT # | [id number] | | REFERENCE | | | | | | [facility] | | | | | | [facility] | | | | | | [facility] | | | | | | B[facility] | | | | | | CENTER | | + + + + + + | UNIT ABO | O | | REFERENCE | | | | | | [facility] | | | | | | [facility] | | | | | | [facility] | | | | | | BLOOD | | | | | | CENTER | | + + + + + + | UNIT RH | POS | | REFERENCE | | | | | | [facility] | | | | | | [facility] | | | | | | [facility] | | | | | | BLOOD | | | | | | CENTER | | + + + + + + | Unit Status | IS | | REFERENCE | | | | | | [facility] | | | | | | [facility] | | | | | | [facility] | | | | | | [facility] | | | | | | CENTER | | + + + + + + | Blood | [id number] | | REFERENCE | | | Product | | | [facility] | | | Expiration | | | [facility] | | | Date and | | | [facility] | | | Time | | | BLOOD | | | | | | CENTER | | + + + + + + | Product | [id number] | | REFERENCE | | | Blood Type | | | [facility] | | | Barcode | | | [facility] | | | | | | [facility] | | | | | | BLO[facility] | | | | | | CENTER | | + + + + + + | Product | [id number] | | REFERENCE | | | Code | | | [facility] | | | | | | [facility] | | | | | | [facility] | | | | | | BLOOD | | | | | | CENTER | | + + + + + + | UNIT # | [id number] | | REFERENCE | | | | | | [facility] | | | | | | [facility] | | | | | | [facility] | | | | | | BLO[facility] | | | | | | CENTER | | + + + + + + | UNIT ABO | O | | REFERENCE | | | | | | [facility] | | | | | | [facility] | | | | | | [facility] | | | | | | BLOOD | | | | | | CENTER | | + + + + + + | UNIT RH | POS | | REFERENCE | | | | | | [facility] | | | | | | [facility] | | | | | | [facility] | | | | | | BLOOD | | | | | | CENTER | | + + + + + + | Unit Status | RE | | REFERENCE | | | | | | [facility] | | | | | | [facility] | | | | | | [facility] | | | | | | BLOOD | | | | | | CENTER | | + + + + + + | Blood | [id number] | | REFERENCE | | | Product | | | [facility] | | | Expiration | | | [facility] | | | Date and | | | [facility] | | | Time | | | BLOOD | | | | | | CENTER | | + + + + + + | Product | [id number] | | REFERENCE | | | Blood Type | | | [facility] | | | Barcode | | | [...] + + + | Specimen Expiration Date: [id number] | REFERENCE LAB | | | [facility] | | | [facility] | | | [facility] | + + + + + + + + | Performing | Address | City/State/Zipcode | Phone Number | | Organization | | | | + + + + + | REFERENCE LAB | [address] | [place] [address] | [phone] | | [facility] | | | | | [facility] [...] [facility] | | | | Performed by [facility] [address] | | SACRED | | | | [address] [place] | | HEART | | | | [address] | | MEDICAL | | | | [...] + | [facility] | [address] [place] [address]. | [place] [address] | | | [facility] | [...] [facility] | | | | Performed by [facility] [address] | mmol/L | SACRED | | | | [address], [place] | | HEART | | | | [address] | | MEDICAL | | | | [...] + + | GILBERTO NICHOLAS | [address] | [place] [address] | | | [facility] | | | | | CELESTE [...] [facility] | | | | Performed by [facility] [address] | mmol/L | SACRED | | | | [address] [place] | | HEART | | | | [address] | | MEDICAL | | | | [...] SACRED | [address] | [place] [address] | | | [facility]ICAL [facility] | [...] [facility] | | | | Performed by [facility] [address] | | SACRED | | | | [address], [place] | | HEART | | | | [address] | | MEDICAL | | | | [...] [address] | [place] [address] | | | [facility] | | | | | LABORATORY [...] CENTER | | | | 3.5Performed by [facility] [address] | | LABORATORY | | | | [address], [place], [place] | | [place] | | | | [address] | | | | + + + + + + + + | Specimen | + + | Blood specimen | | (specimen) | + + + + + + + | Performing | Address | City/State/Zipcode | Phone Number | | Organization | | | | + + + + + | [facility] | [address] | [place] [address] | | | [facility] | | | | | LABORATORY [...] [facility] | | | Venous | by [facility] [address], | mmol/L | SACRED | | | | [place] [address] | | HEART | | | |Performed by [facility] [address], [place] [address] | | MEDICAL | | | | [...] + + | GILBERTO NICHOLAS | [address] | [place] [address] | | | [facility] | | | | | CELESTE [...] | | MEDICAL | | | | [facility] [address], | | CENTER | | | | [place] [address] | | LABORATORY | | | | [...] + + | GILBERTO NICHOLAS | [address] | [place] [address] | | | [facility] | | | | | LABORATORY [...] | PROVID ENCE | | | | [facility] [address], | | SACRED | | | | [place] [address] | | HEART | | | |Performed by [facility] [address], [place] [address] | | MEDICA L | | | [...] + + | GILBERTO NICHOLAS | [address] | [facility] [place] [address] | | | [facility] | | | | | CELESTE [...] | [facility] | | | | by [facility] [address], | mmol/L | SACRED | | | | [place] [address] | | HEART | | | |Performed by [facility] [address], [place] [address] | | MEDICAL | | | | [...] + + | GILBERTO NICHOLAS | [address] | [place] [address] | | | [facility] | | | | | CELESTE [...] by | 65 - 99 mg/dL | PROVIDEODILIAE | | | | [facility] [address], | | SACRED | | | | [place] | | HEART | | | |Performed by [facility] [address], [place] | | MEDICAL | | | [...] SACRED | [address] | [place], [place] | | | [facility] MEDICAL CENTER [...] CENTER | | | | | | MADELAINEATO RY | | | | | | CLAUDAINER | | + + + +--------- ----+ [...] CE | | | ARTERIAL | by [facility] [address], | | SACRED | | | | [place] [address] | | HEART | | | |Performed by [facility] [address], [place] [address] | | MEDICAL | | | | [...] + | GILBERTO NICHOLAS | [address] | [place] [address] | | | [facility] | | | | | LABORATORY [...] [facility] | | | | Performed by [facility] [address] | | SACRED | | | | [address] [place] | | HEART | | | | [address] | | MEDICAL | | | | [...] + + | GILBERTO NICHOLAS | [address] | [place] [address] | | | [facility] | [...] CE | | | ARTERIAL | by [facility] [address], | | SACRED | | | | [place] [address] | | HEART | | | |Performed by [facility] [address], [place] [address] | | MEDICAL | | | | [...] + + | ANAODILIASneha NICHOLAS | [address] | [place] [address] | | | [facility] | | | | | LABORATORY [...] + + + + + | [employer] | <0.2 | 0.0 - 0.9 [...] | | | | | | [facility] [address] | | | | | | [address] | | | | | | [place] | | | | | | [id number] David J | | | | | | MD Ph:[phone] | | | | + + + + + + + + | Specimen | + + | Blood specimen | | (specimen) | + + + + + + + | Performing | Address | City/State/Zipcode | Phone Number | | Organization | | | | + + + + + | GILBERTO NICHOLAS | [address] | [place] [address] | | | [facility] | | | | | LABORATORY [...] [facility] | | | Arterial | by [place] [address], | mmol/L | SACRED | | | | [place] [address] | | HEART | | | |Performed by [place] [address], [place] [address] | | MEDICAL | | | | [...] + + | GILBERTO NICHOLAS | [address] | [place] [address] | | | [facility] | | | | | LABORATORY [...] + | FiO2 | 40 | | ANAN CE | | | | | | SACRED | | | | | | HEART | | | | | | MEDICAL | | | | | | CENTER | | | | | | LABORATO RY | | | | | | [place] | | + + + +--------- ----+ + | ROUTE | SBT/PS=8 | | ANAN CE | | | | | | SACRED | | | | | | HEART | | | | | | MEDICAL | | | | | | CENTER | | | | | | LABORATO RY | | | | | | [place] | | + + + +--------- ----+ + | Rate | 12 | | ANAN CE | | | [...] CE | | | ARTERIAL | by [facility] [address], | | SACRED | | | | [place] [address] | | HEART | | | |Performed by [facility] [address], [place] [address] | | MEDICAL | | | | [...] SACRED | [address] | [place] [address] | | | [facility] | [...] [facility] | | | | Performed by [facility] [address] | | SACRED | | | | [address], [place] | | HEART | | | | [address] | | MEDICAL | | | | [...] [address] | [place] [address] | | | [facility] | | | | | LABORATORY [...] MEDICAL | | | | Performed by [facility] [address] | | CENTER | | | | [address], [place] | | LABORATORY | | | | [address] | | [place] | | | | [...] + + | GILBERTO NICHOLAS | [address] | [place] [address] | | | [facility] | | | | | CELESTE [...] | | | Arterial | Performed by [facility] [address] | mmol/L | SACRED | | | | [address] [place] | | HEART | | | | [address] | | MEDICAL | | | | [...] + + | GILBERTO NICHOLAS | [address] | [place] [address] | | | [facility] | | | | | LABORATORY [...] | [facility] | | | | by [facility] [address], | mmol/L | SACRED | | | | [place] [address] | | HEART | | | |Performed by [facility] [address], [place] [address] | | MEDICAL | | | | [...] + + | [facility] | [address] | [place] [address] | | | [facility] | | | | | LABORATORY [...] | | | ARTERIAL | Performed by [facility] [address] | | SACRED | | | | [address] [place] | | HEART | | | | [address] | | MEDICAL | | | | [...] + | ANAODILIASneha NICHOLAS | [address] | [place] [address] | | | [facility] | | | | | LABORATORY [...] [facility] | | | | Performed by [facility] [address] | | SACRED | | | | [address] [place] | | HEART | | | | [address] | | MEDICAL | | | | [...] + + | GILBERTO NICHOLAS | [address] | [place] [address] | | | [facility] | | | | | LABORATORY [...] [facility] | | | Venous | by [facility] [address], | mmol/L | SACRED | | | | [place] [address] | | HEART | | | |Performed by [facility] [address], [place] [address] | | MEDICAL | | | | [...] + + | PROVID[facility]ODILIAE SA[facility]ED | [address] | [place] [address] | | | [facility] | [...] | | MEDICAL | | | | [facility] [address], | | CENTER | | | | [place] [address] | | LABORATORY | | | | [...] + + | GILBERTO NICHOLAS | [address] | [place] [address] | | | [facility] | | | | | LABORATORY [...] | | HEART | | | | [facility] | | MEDICAL | | [...] IOM | | | | | | ([facility]). | | | | | [...] [facility] | | | | | | [address] | | | | | | [address] [place], [place] | | | | | | [phone] Daniel | | | | | | L Ph:[id number] | | | | + + + + + + + + | Specimen | + + | Blood specimen | | (specimen) | + + + + + + + | Performing | Address | City/State/Zipcode | Phone Number | | Organization | | | | + + + + + | GILBERTO NICHOLAS | [address] | [place] [address] | | | [facility] | | | | | LABORATORY [...] [facility] | | | Venous | by [facility] [address], | mmol/L | SACRED | | | | [place] [address] | | HEART | | | |Performed by [place] [address], [place] [address] | | MEDICAL | | | | [...] + + | GILBERTO NICHOLAS | [address] | [place] [address] | | | [facility] | | | | | CELESTE [...] PROVID ENCE | | | Cells | [facility] [address], | | SACRED | | | | [place] [address] | | HEART | | | |Performed by [facility] [address], [place] [address] | | MEDICA L | | | [...] SACRED | [address] | [place] | | | [facility] | [...] | [facility] | | | | by [facility] [address], | mmol/L | SACRED | | | | [place] | | HEART | | | |Performed by [facility] [address], [place] | | MEDICAL | | | | [...] + + | GILBERTO NICHOLAS | [address] | [place] [address] | | | [facility] | | | | | LABORATORY [...] | | | Arterial | Performed by [facility] [address] | mmol/L | SACRED | | | | [address] [place] | | HEART | | | | [address] | | MEDICAL | | | | [...] + + | GILBERTO NICHOLAS | [address] | [place] [address] | | | [facility] | | | | | CELESTE [...] E | | | Normalized | by [place] [address], | mg/dL | SACRED | | | | [place] [address] | | HEART | | | |Performed by [facility] [address], [place] [address] | | MEDICAL | | | | [...] + + | GILBERTO NICHOLAS | [address] | [place] [address] | | | [facility] | | | | | LABORATORY [...] CE | | | ARTERIAL | by [facility] [address], | | SACRED | | | | [place] [address] | | HEART | | | |Performed by [facility] [address], [place] [address] | | MEDICAL | | | | [...] + + | ANALENO NICHOLAS | [address] | [place] [address] | | | [facility] | | | | | LABORATORY [...] | | | Venous | Performed by [facility] [address] | mmol/L | SACRED | | | | [address], [place] | | HEART | | | | [address] | | MEDICAL | | | | [...] | [address] | [place] [address] | | | [facility] | [...] | [facility] | | | | by [facility] [address], | | SACRED | | | | [place] [address] | | HEART | | | |Performed by [facility] [address], [place] [address] | | MEDICAL | | | | [...] + + | GILBERTO NICHOLAS | [address] | [place] [address] | | | [facility]ENTER | | | | | LABORATORY CERLENI | | | | + + + [...] [facility] | | | | Performed by [facility] [address] | | SACRED | | | | [address] [place] | | HEART | | | | [address] | | MEDICAL | | | | [...] + + | ANAODILIASneha YU | [address] | [place] [address] | | | [facility] | | | | | LABORATORY [...] Seldinger technique, a 6 | | | Liberian sheath was positioned into the right common femoral artery and | | | attached to a flush system. A 5 Liberian Scott 2 catheter was | | | then positioned through a 6 Liberian guiding catheter an utilized to | | [...] | Hemostasis was achieved with a 6 Liberian Angio-Seal device. | | | Maximum sterile [...] | | standard Seldinger technique, a 6 Liberian sheath was positioned into | | the right common femoral artery and attached to a flush system. | | | | A 5 Liberian Scott 2 catheter was then positioned through a 6 Liberian | | guiding catheter an utilized to [...] performed. Hemostasis was achieved with a 6 Liberian | | Angio-Seal device. | | | [...] [facility] | | | | Performed by [facility] [address] | | SACRED | | | | [address] [place] | | HEART | | | | [address] | | MEDICAL | | | | [...] [address] | [place] [address] | | | [facility] | | | | | LABORATORY [...] | | | Venous | Performed by [facility] [address] | mmol/L | [place] | | | | [address] [place] | | HEART | | | | [address] | | MEDICAL | | | | [...] + + | GILBERTO NICHOLAS | [address] | [place] [address] | | | [facility] | [...] | | | Normalized | Performed by [facility] [address] | mg/dL | [facility] | | | | [address] [place] | | HEART | | | | [address] | | MEDICAL | | | | [...] + + | GILBERTO NICHOLAS | [address] | [place] [address] | | | [facility] | | | | | CELESTE [...] | [facility] | | | | by [facility] [address], | mmol/L | [facility]CRED | | | | [place] [address] | | HEART | | | |Performed by [facility] [address], [place] [address] | | MEDICAL | | | | [...] + + + + + | [facility] [place] | [address] | [place] [address] | | | [facility] | | | | | LABORATORY [...] GILBERTO | | | | Performed by [facility] [address] | | [facility] | | | | [address], [place] | | HEART | | | | [address] | | MEDICAL | | | | [...] NICHOLAS | [address] | [place] [address] | | | [facility] | [...] ANAN CE | | | | by [facility] [address] [address], | | SACRED | | | | [place] [address] | | HEART | | | |Performed by [facility] [address], [place] [address] | | MEDICAL | | | | [...] SACRED | [address] | [place] [address] | | | [facility] | | | | | LABORATORY [...] PROVIDENCE | | | | Performed by [facility] [address] | | SACRED | | | | [address] [place] | | HEART | | | | [address] | | MEDICAL | | | | [...] [address] | [place] [address] | | | [facility] | | | | | LABORATORY [...] | | | REPORT | Performed by [facility] [address] | | SACRED | | | | [address], [place] | | HEART | | | | [address] | | MEDICAL | | | | [...] + + | GILBERTO NICHOLAS | [address] | [place] [address] | | | [facility] | | | | | LABORATORY [...] | | | REPORT | Performed by [facility] [address] | | SACRED | | | | [address] [place] | | HEART | | | | [address] | | MEDICAL | | | | [...] NICHOLAS | [address] | [place] [address] | | | [facility] | | | | | LABORATORY [...] Number [id number] Patient Number | | | [id number] Date of Study 08/18/2017 Visit | | | Number [id number] | | | Referring Physician BRI Sánchez Date of | | | 1955 Lead Process Engineer Julien Zamora Age | | | 62 year(s) Interpreting | | | [facility] | | | Segment Assembler | | | Mara Patton MD Gender | | | Female Nurse | | | Stress Knitting Tester Procedure Type of Study TTE procedure: | [...] Atrium Left Ventricle EF | | | Pjtkdczgf57% | | | Electronically signed by Mara [...] | | | | | | EF Okwswjgos16% | | | | | + + --+ + + | Procedure Note | + + | Daniel You In 08/18/2017 11:38 AM [facility] Transthoracic Echocardiography Report | | (TTE) Demographics Patient Name MARCELLA MONTAÑO I Room Number 258 Patient | | Number [id number] Date of Study 08/18/2017 Visit Number [id number] | | Referring Physician BRI Sánchez Date of | | 1955 Lead Process Engineer Julien Zamora Age 62 year(s) | | Interpreting [facility] Segment Assembler | | Mara Patton MD Gender | | Female Nurse Stress TechnicianProcedureType of | | Study TTE procedure: ECHO Complete, Add-on Items, COLOR DOPPLER, COMPLETE | | DOPPLER.Procedure dateDate: 08/18/2017Start: 07:21 AMTechnical Quality: Adequate | | visualization[facility] 425.4/ I42.9.Patient | | Status: RoutineHeight: [...] Left Atrium Left Ventricle EF | | Ikkcsntjg21% | |Conclusions | |Summary | |1. Small [...] Left Ventricle | | | | EF Strdbpxjb20% | + + + +---------+ + + [...] | | | Arterial | Performed by [facility] [address] | mmol/L | SACRED | | | | [address] [place], [place] | | HEART | | | | [address] | | MEDICAL | | | | [...] NICHOLAS | [address] | [place] [address] | | | [facility] | [...] E | | | Normalized | by [facility] [address], | mg/dL | SACRED | | | | [place] [address] | | HEART | | | |Performed by [facility] [address], [place] [address] | | MEDICAL | | | | [...] + | [facility] SACRED | [address] | [place] [address] | | | [facility]ENTER | [...] PROVIDENCE | | | | Performed by [facility] [address] | | SACRED | | | | [address], [place] | | HEART | | | | [address] | | MEDICAL | | | | [...] + + | GILBERTO NICHOLAS | [address] | [place] [address] | | | [facility] | | | | | LABORATORY [...] CE | | | ARTERIAL | by [facility] [address], | | SACRED | | | | [place] [address] | | HEART | | | |Performed by [facility] [address], [place] [address] | | MEDICAL | | | | [...] SACRED | [address] | [place] [address] | | | [facility] | | | | | LABORATORY [...] PROVID ENCE | | | | by [facility] [address], | | SACRED | | | | [place] [address] | | HEART | | | |Performed by [facility] [address], [place] [address] | | MEDICA L | | | [...] + + | [facility] SACRED | [address] | [place] [address] | | | [facility] | | | | | LABORATORY [...] | | LABORATORY | | | | [facility] [address], | | CLAUDIANER | | | | [place] [address] | | | | + + + + + + + + | Specimen | + + | Blood specimen | | (specimen) | + + + + + + + | Performing | Address | City/State/Zipcode | Phone Number | | Organization | | | | + + + + + | GILBERTO NICHOLAS | [address] | [place] [address] | | | [facility] | | | | | CELESTE [...] PROVIDE NCE | | | | by [facility] [address], | | SACRED | | | | [place] [address] | | HEART | | | |Performed by [facility] [address], [place] [address] | | MEDICAL | | | | [...] + + | GILBERTO NICHOLAS | [address] | [place] [address] | | | [facility] | | | | | LABORATORY [...] PROVIDEN CE | | | | by [facility] [address], | | SACRED | | | | [place] [address] | | HEART | | | |Performed by [facility] [address], [place] [address] | | MEDICAL | | | | [...] SACRED | [address] | [place] [address] | | | [facility] | [...] | | MEDICAL | | | | [facility] [address], | | CENTER | | | | [place] [address] | | LABORATORY | | | | [...] + + | ANAODILIASneha YU | [address] | [place] [address] | | | [facility] | | | | | LABORATORY [...] | | | | Signed by: MD aMxx, Cris | + + + +---------+ + + | Performing | Address | City/State/[facility] Services[facility] | Phone Number | | Organization | [...] | CHAVEZ E | | | | [facility] [address], | | SACRED | | | | [place] [address] | | HEART | | | |Performed by [facility] [address], [place] [address] | | MEDICAL | | | | [...] + + | GILBERTO NICHOLAS | [address] | [place] [address] | | | [facility] | | | | | LABORATORY [...] - 1.030 | PROVIDENCE | | | [place], | | | SACRED | | | [...] | | | SOURCE | Performed by [facility] [address] | | SACRED | | | | [address] [place] | | HEART | | | | [address] | | MEDICAL | | | | [...] + + | GILBERTO NICHOLAS | [address] | [place] [address] | | | [facility] | | | | | CELESTE [...] PROVID ENCE | | | | by [facility] [address], | | SACRED | | | | [place] [address] | | HEART | | | |Performed by [facility] [address], [place] [address] | | MEDICA L | | | [...] + + | GILBERTO NICHOLAS | [address] | [place] [address] | | | [facility] | | | | | CELESTE [...] PROVIDENCE | | | Source | by [facility] [address], | | SACRED | | | | [place] [address] | | HEART | | | |Performed by [facility] [address], [place] [address] | | MEDICAL | | | | [...] + + | GILBERTO NICHOLAS | [address] | [place] [address] | | | [facility] | | | | | CELESTE [...] and a short | | | 5 Liberian vascular sheath was placed. A 5 Liberian Scott 1 catheter | | | was [...] + + | Daniel You Results In 08/18/2017 2:18 PM PDT | | 1. [...] performed and a short | | 5 Liberian vascular sheath was placed. A 5 Liber[place] Scott 1 catheter | | was formed [...] | | | | | seconds.Performed by [facility] | | | | | | [address], | | | | | | [place] [address] | | | | + + + + + + + + | Specimen | + + | Blood specimen | | (specimen) | + + + + + + + | Performing | Address | City/State/Zipcode | Phone Number | | Organization | | | | + + + + + | GILBERTO SACRJAD | [address] | [place] [address] | | | [facility] | | | | | LABORATORY [...] | | | Normalized | Performed by [facility] [address] | mg/dL | SACRED | | | | [address], [place], [place] | | HEART | | | | [address] | | MEDICAL | | | | [...] NICHOLAS | [address] | [place] [address] | | | [facility] | [...] | PROVIDENCE | | | | by [facility] [address], | mmol/L | SACRED | | | | [place] [address] | | HEART | | | |Performed by [facility] [address], [place] [address] | | MEDICAL | | | | [...] + + | GILBERTO NICHOLAS | [address] | [place] [address] | | | [facility] | | | | | LABORATORY [...] | PROVIDENCE | | | | by [facility] [address], | mmol/L | SACRED | | | | [place] [address] | | HEART | | | |Performed by [facility] [address], [place] [address] | | MEDICAL | | | | [...] + | PROVIDENCE SACRED | [address] | [place] [address] | | | [facility] | [...] PROVIDEODILIAE | | | | Performed by [facility] [address] | | SACRED | | | | [address], [place] | | HEART | | | | [address] | | MEDICAL | | | | [...] + + | GILBERTO NICHOLAS | [address] | [place] [address] | | | [facility] | | | | | CELESTE [...] CE | | | ARTERIAL | by [facility] [address], | | SACRED | | | | [place] [address] | | HEART | | | |Performed by [facility] [address], [place] [address] | | MEDICAL | | | | [...] NICHOLAS | [address] | [place] | | | [facility] | | | | | LABORATORY [...] PROVIDE NCE | | | | by [facility] [address], | | SACRED | | | | [place] | | HEART | | | |Performed by [facility] [address], [place] [address] | | MEDICAL | | | | [...] + + | GILBERTO NICHOLAS | [address] | [place] [address] | | | HEART [facility] | | | | | LABORATORY CERLENI | | | | + + + + + ABO Rh (08/17/2017 10:35 PM PDT) + + + + + + | Component | Value | Ref Range | Performed | Pathologist | | | | | At | Signature | + + + + + + | ABO | O | | REFERENCE | | | | | | LAB [place] | | | | | | [place] | | | | | | [facility] | | | | | | [facility] | | | | | | [facility] | | + + + + + + | Rh Type | Positive | | REFERENCE | | | | | | LAB [place] | | | | | | [facility] | | | | | | [facility] | | | | | | [facility] | | | | | | [facility] | | + + + + + + + + | Specimen | + + | | + + + + + | Narrative | Performed At | + + + | Specimen Expiration Date: [id number] | REFERENCE LAB | | | [place] | | | [facility] | | | [facility] | + + + + + + + + | Performing | Address | City/State/Zipcode | Phone Number | | Organization | | | | + + + + + | REFERENCE LAB | [address] | [place] [address] | [phone] | | [place] | | | | | [facility] [...] PROVIDEN CE | | | | by [facility] [address], | | SACRED | | | | [place] [address] | | HEART | | | |Performed by [facility] [address], [place] [address] | | MEDICAL | | | | [...] + | ANAODILIASneha SAENZJAD | [address] | [place] [address] | | | [facility] | | | | | LABORATORY [...] | | MEDICAL | | | | [facility] [address], | | CENTER | | | | [place] [address] | | LABORATORY | | | | [...] + + | GILBERTO NICHOLAS | [address] | [place] [address] | | | [facility] | | | | | LABORATORY [...] ENCE | | | Basophils | by [facility] [address], | K/uL | SACRED | | | | [place] [address] | | HEART | | | |Performed by [facility] [address], [place] [address] | | MEDICA L | | | [...] + | GILBERTO NICHOLAS | [address] | [place] [address] | | | [facility] | | | | | CELESTE [...] | | | | | | LAB [place] | | | | | | [place] | | | | | | [facility] | | | | | | [facility] | | | | | | CENTER | | + + + + + + | Rh Type | PositiveComment: Patient | | REFERENCE | | | | is remote crossmatch | | LAB [place] | | | | eligible | | [facility] | | | | | | [facility] | | | | | | [facility] | | | | | | CENTER | | + + + + + + | Antibody | Negative | | REFERENCE | | | Screen | | | LAB [place] | | | | | | [place] [...] + + + | Specimen Expiration Date: [id number] | REFERENCE LAB | | | [place] | | | [facility] | | | [facility] | + + + + + + + + | Performing | Address | City/State/Zipcode | Phone Number | | Organization | | | | + + + + + | REFERENCE LAB | [address] | [place] [address] | [phone] | | [place] | | | | | [facility] [...] | | | | | | Starting [facility] 08/18/17 at 0508 | | | [...] | | | | < 4.75, Starting [facility] 08/18/17 at | | | | [...] | | +---+---+ + +-------+ +---------+---+---+ | precious-gloria (SENOKOT-S) | Given | 08/23/19 | 2 [...]
--- OUTSIDE RECORDS SUMMARY | ~2019-12-07 | XMS | Encounter Summary ---
Demographics + + + | Address | [address] | | | [place] [address] | + + + | Home Phone [...] | [place] | | | | | [address] | | + + + + + | Mila Desai | ECON | Unknown | | + + + + + Care Team Providers + +------+ + | Care Barrel Inspector Tight Name | Role | Phone | + [...] | | | [address] [place] | [place] [address] | | | | | [place] [address] | | | | | | [phone] | | | +--------+ + + + [...] [place] | | | | | | [address] | | | | | | | [...]
--- OUTSIDE RECORDS SUMMARY | ~2019-12-07 | XMS | Encounter Summary ---
Demographics + + + | Address | [address] | | | [place] [address] | + + + | Home Phone [...] + + + | Author | [facility] | | | and [place] | + + + | Organization | [facility] | | | and [place] | + + + | Address | Unknown | + + + | Phone | Unavailable | + + + Support + + + + + | Name | Relationship | Address | Phone | + + + + + | Joseluis Desai | [address] | [place] | | | | | [address] | | + + + + + | Mila Desai | ECON | Unknown | | + + + + + Care Team Providers + +------+ + | Care Certified Master Safecracker Name | Role | Phone | + [...] | | | [address] | [place] [address] | | | | | [place] [address] | | | | | | [phone] | | | +--------+ + + + [...] [place] | | | | | | [address] | | | | | | | [...]
--- OUTSIDE RECORDS SUMMARY | ~2019-12-07 | XMS | Encounter Summary ---
Demographics + + + | Address | [address] | | | [place] [address] | + + + | Home Phone [...] | [place] | | | | | [address] | | + + + + + | Mila Desai | ECON | Unknown | | + + + + + Care Team Providers + +------+ + | Care Feed Management Advisor Name | Role | Phone | + [...] | | | [address] [place] | [place] [address] | | | | | [place] [address] | | | | | | [phone] | | | +--------+ + + + [...] [place] | | | | | | [address] | | | | | | | [...]
--- OUTSIDE RECORDS SUMMARY | ~2019-12-07 | XMS | Encounter Summary ---
Demographics + + + | Address | [address] | | | [place] [address] | + + + | Home Phone | | + + + | Preferred Language | Unknown | + + + | Marital Status | | + + + | Jewish Affiliation | 1028 | + + + | Race | White | + + + | Ethnic Group | Not or | + + + Author + + + | Author | [facility] | | | and [place] | + + + | Organization | [facility] | | | and [place] | + + + | Address | Unknown | + + + | Phone | Unavailable | + + + Support + + + + + | Name | Relationship | Address | Phone | + + + + + | Joseluis Desai | ECON | [place] | | | | | [address] | | + + + + + | Mila Desai | ECON | Unknown | | + + + + + Care Team Providers + +------+ + | Care Wash And Greaser Name | Role | Phone | + [...] | Event | [facility] | OPTIMIZATION MANAGER [address] | | | | | CARDIAC ICU [address] | [place] [address] | | | | | [address] [place] | [phone] | | | | | [address] | | | | | | [phone] | | | +--------+ + + + + Anesthesia Record + + + + + | Procedure Name | Responsible | Anesthesia Start | Anesthesia Stop Time | | | Anesthesiologist | Time | | + + + + + | LINE:ARTERIAL LINE | Misael Edmond, | 08/18/17 1237 | 08/18/17 1247 | | PLACEMENT | OPTIMIZATION MANAGER | | | + + + + [...] 06/05/18 1643 by | | doris | mcsp-lwo-ggayov catheter system; | Jeff Cloud RN | [...] + + | NG/OG | 08/17/17; 0600; [place] sump; left | 08/17/17 0600 by | 08/19/17 1100 by | | | nostril; stomach; medication | Dorcas Troncoso RN | Dorcas Troncoso RN | | | administration, gastric | | | | | decompression; tubing intact, no | | | | | signs/symptoms of discomfort; | | | | | placed in [facility]; | | | | | 08/19/17; 1100 | | | +--------+ + + + | Airway | Placement Date: 08/17/17; | 08/17/172208 by | 08/19/17 09 by | | | Placement Time: 2208; Airway | Caleb Forte, STATION USHER | Volodymyr Teague, JOSEFA | | | [...] | | Line | Chlorhexidine/Isopropyl Alcohol; | OPTIMIZATION MANAGER | | | | under GA; Right; [...] EVALUATION Amy Coleman 62 y.o. female 1955 [id number] Procedure(s) LINE:ARTERIAL LINE PLACEMENT Cooperates? Yes Mental [...] signed by Misael Edmond CRNA 08/18/2017 13:02 [facility] signed by Misael Edmond CRNA at [...] EVALUATION Amy Coleman 62 y.o. female 1955 [id number] Procedure(s): LINE:ARTERIAL LINE PLACEMENT Anesthesia Evaluation Anesthesia [...] [place] | | | | | | [id number] | | | | | | | [...]
--- OUTSIDE RECORDS SUMMARY | ~2019-12-07 | XMS | Encounter Summary ---
Demographics + + + | Address | [address] | | | [place] [address] | + + + | Home Phone [...] | [place] | | | | | [address] | | + + + + + | Mila Desai | ECON | Unknown | | + + + + + Care Team Providers + +------+ + | Care Sheep Farm Manager Name | Role | Phone | [...] [address] | | | | | [place], | [place], [place] | | | | | [place] [address] | [address] | | | | | [phone] | | | +--------+--------+ + + + [...] [place] | | | | | | [address] | | | | | | | | +--------+---------+ + + + documented as of this encounter Visit Diagnoses Not on filedocumented in this encounter"
--- OUTSIDE RECORDS SUMMARY | ~2019-12-07 | XMS | Encounter Summary ---
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[place], | | | | | artery (HCC) | [place], [place] | [place] [address] | | | | | | [address] | Phone: | | | | | | Phone: | [phone] | | | | | | [phone] | Fax: | | | | | | Fax: | [phone] | | | | | | [phone] | | +--------+ + + + + [...] SURGICAL [address] | [place] [address] | (HCC); Anemia, | | 08/23/ | | Ave [place] | [phone] | unspecified type; | | 2018 | | [address] | | Chronic obstructive | | | | [phone] | Vikram James, | pulmonary disease, | | | | | MD [address] | unspecified COPD | | | | | [place], [place] | type ([facility]); | | | | | [address] | Essential | | | | | | hypertension; | | | | | Nadia Sutton MD | Hemorrhagic shock | | | | | [address] | ([facility]); Acute | | | | | [place] [address] | posthemorrhagic | | | | | [phone] | anemia; Acute | | | | | | respiratory failure | | | | | Riky Rodriguez | with hypoxia and | | | | | MD Jarocho [address] | hypercapnia ([facility]) | | | | | [address] | | | | | | [place] [address] | | | | | | [phone] | | | | | | | [...] Follow Up Appointments: Bry Vaughn DO [address] [place] [phone] Schedule an appointment as soon as possible for a visit Discharge Disposition: Home Consultants This Admission: Vascular surgery, General Surgery, Interventional Radiology Hospital Course: Amy Coleman is a 62-year-old female with past medical history significant for COPD, CAD s/p NSTEMI ( no PCI), who was transferred to [facility] for ICU care from [place] on 08/17 ere she was intubated for [...] going home to continue duo nebs at [facility]. She is being discharged today [...] this chart may have been created with [employer] voice recognition software. Occasi onal wrong-word or [...] urine. Belly (abdominal) pain Date Last Reviewed: 09/12/201519993196-5613 [employer] [address] [place] [address], [place] [address]. All righ ts reserved. This information is [...] about recovering at home. Date Last Reviewed: 02/12/201619994314-1640 [employer] [address] [place], [place] [id number]. All [facility] ts reserved. This information is not intended as a substitute for professional medical care. Always follow your healthcare professional's instructions. [facility] Patient Belongings Amy Coleman 1955 Patient Signature: Clinician/Supervisor [employer] Signature: Discharge Instructions: After Your Surgery You [...] interact with your prescription medicines or other emzq-gdi-gamanpj (OTC) medicines. Some prescription medicines have acetaminophen [...] of taking these medicines. Date Last Reviewed: 02/12/201619994528-7488 [employer]. [address] [place] [address]. All righ ts reserved. This information is [...] is a 62 year old female from [place], [place] with [facility] Medicaid insurance. SW received referral [...] ( no PCI), who was transferred to [facility] for ICU care from [place] on 08/17 wh ere she was intubated [...] - Single Lumen 05/08/17 0130 Left Forearm ulvz-lld-wljxmb catheter syst em 20 gauge 106 days [...] this chart may have been created with [employer] voice recognition software. Occasi onal wrong-word or sound-alike substitutions may have occurred due to the inherent lobo itations of voice recognition software. Please read the chart carefully and recognize, using context, where these substitutions have occurred Krzysztof Ordaz MD - 08/21/2017 5:47 PM PDTFormatting of this note might be different f rom the original. [facility] Surgery Team [...] Signed by: Krzysztof Montaño MD, 08/21/2017 17:47 [facility] ope, Riky Avendaño MD - 08/21/2017 9:49 AM PDT Patient: Amy Coleman Date of : 1955 Admit Date: 08/17/2017 Date of Service: 08/21/2017 PCP: Bry Vaughn DO Hospital Day: Hospital Day: 5 Hospital Course: Amy Coleman is a 62-year-old female with past medical history significant for COPD, CAD s/p NSTEMI ( no PCI), who was transferred to [facility] for ICU care from [place] on 08/17 wh ere she was intubated [...] - Single Lumen 05/08/17 0130 Left Forearm tdru-umu-lzhwlk catheter syst em 20 gauge 105 days [...] Hold Result Value Ref Range Product Code G2732D23 UNIT # [id number] UNIT ABO O UNIT RH POS Unit Status IS Blood Product Expiration Date and Time Product Blood Type Barcode 5100 Product Code G1647Q58 UNIT # [id number] UNIT ABO O UNIT RH POS Unit [...] this chart may have been created with [employer] voice recognition software. Occasi onal wrong-word or sound-alike substitutions may have occurred due to the inherent lobo itations of voice recognition software. Please read the chart carefully and recognize, using context, where these substitutions have occurred Krzysztof Ordaz MD - 08/20/2017 12:23 PM PDTFormatting of this note might be different f rom the original. [facility] General Surgery Team Hospital Day: 4 DATE/TIME: [...] Signed by: Krzysztof Montaño MD, 08/20/2017 12:23 [facility] Nadia Blount MD - 08/20/2017 10:02 AM PDT Patient: Amy Coleman Date of : 1955 Admit Date: 08/17/2017 Date of Service: 08/20/2017 PCP: Bry Vaughn DO Hospital Day: Hospital Day: 4 Hospital Course: Amy Coleman is a 62-year-old female with past medical history significant for COPD, CAD s/p NSTEMI ( no PCI), who was transferred to [facility] for ICU care from [place] on 08/17 wh ere she was intubated [...] - Single Lumen 05/08/17 0130 Left Forearm odfx-dcd-gnuazh catheter syst em 20 gauge 104 days [...] this chart may have been created with [employer] voice recognition software. Occasi onal wrong-word or sound-alike substitutions may have occurred due to the inherent lobo itations of voice recognition software. Please read the chart carefully and recognize, using context, where these substitutions have occurred Vikram Jesus MD - 08/20/2017 5:28 AM PDT Critical Care Progress Note [facility] Date of Service: 08/20/2017 Admit [...] NSTEMI (no PCI, mild disease) presented to [facility] on 08/16 with shortness of breath [...] NSTEMI (no PCI, mild disease) presented to [facility] on 08/16 with shortness of breath [...] Today: Yes Extubated Bowel Function: Last BM: RECEPTION. Scheduled bowel meds started. Indwelling Bladder Catheter [...] I personally reviewed recent labs in [facility] and ordered appropriate follow-up domonique dies. Recent [...] Component Value Date PHART 7.36 (L) 08/19/2017 OCW3TNL 44 (H) 08/19/2017 PO2ART 91 (H) 08/19/2017 [id number] 13.3 (L) 08/19/2017 AHX2RMG 25.2 08/19/2017 BEART -0.2 08/19/2017 CARBOXYHGB 1.0 [...] this chart may have been created with [employer] voice recognition software. Occasi onal wrong-word or sound-alike substitutions may have occurred due to the inherent lobo itations of voice recognition software. Please read the chart carefully and recognize, using context, where these substitutions have occurred. Krzysztof Ordaz MD - 08/19/2017 2:[address] [facility] General Surgery Team Hospital Day: 3 DATE/TIME: [...] Signed by: Krzysztof Montaño MD, 08/19/2017 14:05 [facility] arocho Hunt RRT - 08/19/2017 10:10 AM PDT 08/19/17 1009 Respiratory Assessment Interventions ~ Patient Assessment ~ Multi-disciplinary Rounds Continue current care. Q4 DuonebsElectronically signed by Jarocho Hunt V, SENIOR BUSINESS MANAGER at 2017 10:10 AM PDTDoVolodymyr bear RRT [...] Coleman DATE OF : 1955 MED RECORD: [id number] ASSESSMENT/PLAN PROCEDURE: mesenteric angiogram 08/18 ASSESSMENT: 1. [...] 2019 PHART 7.25* 7.34* PO2ART 58* 139* NGU6TIK 53* 39 BEART -4.1* -4.5* EXAM: General [...] 6:50 AM PDT Critical Care Progress Note [facility] Date of Service: 08/19/2017 Admit [...] NSTEMI (no PCI, mild disease) presented to [facility] on 08/16 with shortness of breath [...] NSTEMI (no PCI, mild disease) presented to [facility] on 08/16 with shortness of breath [...] Today: Yes Extubated Bowel Function: Last BM: RECEPTION. Scheduled bowel meds started. Indwelling Bladder Catheter [...] I personally reviewed recent labs in [facility] and ordered appropriate follow-up domonique dies. Recent [...] Component Value Date PHART 7.34 (L) 08/18/2017 RDN0TIQ 39 08/18/2017 PO2ART 139 (H) 08/18/2017 [id number] 11.2 (L) 08/18/2017 GKJ7SGS 21.2 (L) 08/18/2017 BEART -4.5 (L) 08/18/2017 [...] this chart may have been created with [employer] voice recognition software. Occasi onal wrong-word or [...] 6:28 AM PDT Critical Care Progress Note [facility] Date of Service: 08/18/2017 Admit [...] sease only, no PCI) presented to OSH ([place], [place]) initially w/ c/o SOB and was intubated for acute on chronic respiratory failure (ABG prior to intubation: 7.0/98/217/26). Pt then developed hypotension/HD instability for which she required 2 pressors. hgb fell from 15-- >4 and pt rc'd 6u PRBCs, 2uFFP, 1u PLT, 5L NS. CT abdomen showed RP hematoma and pt was tra nsferred to [facility] for further eval of this. 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 Gen surgery consulted as w ell as vascular to determine best approach to vascular issues given high potential for re bl eed. Summary of Significant Events: 08/17: Admitted to [facility]. Intubated. To IR 08/18: Awake, alert. [...] l plan set Bowel Function: Last BM: RECEPTION. PRN bowel meds available. Indwelling Bladder Catheter Indication: Vasopressors for hemodynamic instability Subjective 24hr interval history: Transferred from [place], [place] to [facility] Afebrile Rc'd 6u PRBCs, 2u FFP, [...] I personally reviewed recent labs in [facility] and ordered appropriate follow-up domonique dies. Recent [...] Results Component Value Date PHART 7.39 08/18/2017 GUS3AWI 32 08/18/2017 PO2ART 108 (H) 08/18/2017 A9DPMBVZV 16.2 08/18/2017 PWA8PIP 19.4 (L) 08/18/2017 BEART -5.6 (L) 08/18/2017 [...] this chart may have been created with [employer] voice recognition software. Occasi onal wrong-word or sound-alike substitutions may have occurred due to the inherent lobo itations of voice recognition software. Please read the chart carefully and recognize, using context, where these substitutions have occurred. Associated attestation - Vikram James MD - 08/18/2017 8:56 AM PDT Physician Attestation Note [facility] Date of Service: 08/18/2017 Reason for critical care: Hemorrhagic shock secondary to intra-abdominal bleeding I reviewed and discussed the patient history, assessment and plan with the KOLE, during pers onal discussion and/or multi-disciplinary rounds. Acute issues or additions to plan of care: 62 year old lady with PMH of COPD, CAD s/p NSTEMI (no PCI, mild disease) presented to [facility] on 08/16 with shortness of breath [...] this chart may have been created with [employer] voice recognition software. Occasi onal wrong-word or [...] riginal. . Critical Care-Care Progress Note Update [facility] Date of Service: 08/17/2017 Admit [...] called and discussed plans with son, Joseluis ([phone]). He expre ssed understanding and wanted to [...] this chart may have been created with [employer] voice recognition software. Occasi onal wrong-word or [...] PDT Critical Care Admission History and Physical [facility] Intensive Care Unit Pt. Name: Amy Coleman Age: 62 y.o. : 1955 Code Status: TBD - Full Code by default Date of Admission: 08/17/2017 Primary Care Physician: Bry Vaughn DO Attending: Faby Rodriguez MD Subjective Chief Concern: Abdominal bleed History of Present Illness: 62 yo F patient with PMH of COPD and previous TX was transferred from [facility] to [facility] ICU for further care of shock and management of abdominal bleed. Mike clolier this morning presented herself to the ER [...] LHC; Surgeon: Johnny Luther MD; Location: [facility] CV LAB Social History: Social History Social [...] Labs Lab 08/17/172238 PHART 7.33* PO2ART 193* UFD1GHE 35 BEART -7.8* No results for input(s): [...] discussed the plan Lalito Huggins Lloyd : [phone] I expect this patient will be hospitalized for greater than 2 midnights. I expect the post-hospital plan to be determined once additional information is obtained. Electronically signed by: Diana Boyle MD, 08/18/2017, 0:23 Associated attestation - Faby Rodriguez MD - 08/18/2017 5:15 AM PDTFormatting of this note m ight be different from the original. . Physician Attestation Note [facility] Date of Service: 08/18/2017 Reason [...] with mild disease, no PCI) presented to [facility] late evening 08/16 with hypoxemic/hyp ercarbic respiratory [...] large low density mass in left abdomen [id number] with active extravasation is several locations, ?branches of celiac or SMA. MTP protocol initiated. Stabilized. OSH physicians discussed with critical care, surgery an d interventional radiology and pt transferred to [place]. Upon arrival, she is relatively stable on [...] this chart may have been created with [employer] voice recognition software. Occasi onal wrong-word or sound-alike substitutions may have occurred due to the inherent lobo itations of voice recognition software. Please read the chart carefully and recognize, using context, where these substitutions have occurred. documented in this encounter Consult Notes Johnny Harmon MD - 08/18/2017 1:29 PM PDTFormatting of this note might be different fro m the original. [facility] VASCULAR CONSULTATION PATIENT NAME: Amy Coleman : [...] is chemia. This was discussed with the dzfuhqwp-rf-qsq and grandson, and also with the intubat [...] Dr Minor. She was transferred yesterday from [place] with an acute intra-abdominal bleed from a [...] history of COPD (chronic obstructive pulmonary disease) ([facility]) and NS STANLEY (non-ST elevated myocardial infarction) ([facility]). Allergies Allergen Reactions Amoxicillin Cephalexin [...] LHC; Surgeon: Johnny Luther MD; Location: [facility] CV LAB Family History: Her family history [...] Negative UROBILINOGEN UA <2.0 <2.0 mg/dL Specific [place] >1.060 (H) 1.001 - 1.030 PH UA [...] Munoz MD - 08/18/2017 12:21 AM PDT [facility] GENERAL SURGERY CONSULT Primary Care Physician: Bry [...] LHC; Surgeon: Johnny Luther MD; Location: [facility] CV LAB MEDICATIONS PRIOR TO ADMISSION Prior [...] Signed by: Pedro Londono MD, 08/18/2017 0:21 [facility] documented in thi s encounter Miscellaneous [...] None Code Status: Full Code Item for charge nurse Comments Shift Summary: Pt is alert and oriented. Pain managed w/ Alsen 5 x 1 tab. Frequent heartburn/indigestion. Tums effective for pt. R groin incision w/ gauze and tegaderm. Dressing changed. PICC saline-locked. Voiding adequately, passing flatus. Tolerating general diet. Probable home today. Slept well between cares. Dx/Tx: Procedure(s) (LRB): Gastric Artery Embolization with 2mm x 8cm coil and [place] 34 and 18 embolic (N/A) Anesthesia Type [...] Bowel Movement: 08/20/17 (08/21/17 1600) Pain Management: Alsen Next Dose: CAM CAM Score: no MD Notification: Notification Provider Name/Title: Dr Roman (08/20/171511) Reason for Communication: Critical lab value with read back verification (08/20/171511) Method of Communication: Call (08/20/171511) Litigation Coordinator for Provider: Sammie NUNEZ (08/20/171511) Response: [...] 93 05/10/2017 1130 lan of Care - Tx [place] regalado, SENIOR BUSINESS MANAGER - 08/23/2017 4:14 AM PDTProblem: Patient Care [...] None Code Status: Full Code Item for charge nurse Comments Shift Summary: Alert and oriented x4, VSS, up independently in room and halls. Denies pain. S/P embolization of right visceral artery. ANticipating D/C tomorrow. Patient lives in [facility] and needs advanced notice of D/C to [...] verification (08/20/171511) Method of Communication: Call (08/20/171511) Litigation Coordinator for Provider: Sammie NUNEZ (08/20/171511) Response: [...] None Code Status: Full Code Item for charge nurse Comments Shift Summary: Pt is alert and oriented. Denied pain through night Right groin dressing with dried drainage Tolerates , denies nausea Rested well Dx/Tx: Procedure(s) (LRB): Gastric Artery Embolization with 2mm x 8cm coil and [place] 34 and 18 embolic (N/A) Anesthesia Type [...] (08/20/171511) Method of Communication: Call (08/20/17 151) Litigation Coordinator for Provider: Sammie RN (08/20/17 151) [...] None Code Status: Full Code Item for charge nurse Comments Shift Summary: Patient up indp to [...] verification (08/20/171511) Method of Communication: Call (08/20/171511) Litigation Coordinator for Provider: Sammie NUNEZ (08/20/171511) Response: [...] Supine: independent Goal Status: met Level of Victoria: independent Transfers Bed to Chair: not tested Chair to Bed: not tested Utilizing: other (see comments) (hand hold assist) Sit to Stand: independent Stand to Sit: independent Utilizing: none Status: met Victoria Level: independent Gait Level of Assist: independent Utilizes: none Distance: 300 Goal Status: met Goal: independent Device: none Distance: 150' Stairs # of stairs: 12 Handrail Location: left side (ascending) Level of Victoria: independent Utilizes: 1 rail Technique: step over step (ascending) Maintain WB Status: able to maintain weight bearing status STG Status: met Level of Victoria: modified independent # of stairs: 6 Utilizes: [...] number to reach at after discharge is [phone]. lan of Samara - Sammie Hare RN [...] None Code Status: Full Code Item for charge nurse Comments Shift Summary: Pt A&Ox4 calm, pleasant Pt OOB to work with PT and for shower Pt tolerating general diet Pt modified independence for ambulation, continue to encourage ambulation Dressings on bilateral arms/L neck remain CDI, R groin dressing has old, dried drainage wit h no swelling/hematoma/pain noted Pt denies pain/discomfort Dx/Tx: Procedure(s) (LRB): Gastric Artery Embolization with 2mm x 8cm coil and [place] 34 and 18 embolic (N/A) Anesthesia Type [...] verification (08/20/171511) Method of Communication: Call (08/20/171511) Litigation Coordinator for Provider: Sammie NUNEZ (08/20/171511) Response: [...] to continue current therapy. ospital Course - [place], Riky Avendaño MD - 08/21/2017 9:50 AM PDTAmy Coleman is a 62-year-old femal e with past medical history significant for COPD, CAD s/p NSTEMI ( no PCI), who was transfer red to [facility] for ICU care from [place] on 08/17 where she was intubated for [...] None Code Status: Full Code Item for charge nurse Comments Shift Summary: A/O. No pain reported. [...] verification (08/20/171511) Method of Communication: Call (08/20/171511) Litigation Coordinator for Provider: Sammie NUNEZ (08/20/171511) Response: [...] None Code Status: Full Code Item for charge nurse Comments Shift Summary: Pt oriented. PICC line, patent. Up ind. dsg to right groin, dried drainage. Pain controlled with tylenol. Pt tolerated all cares well. Dx/Tx: Procedure(s) (LRB): Gastric Artery Embolization with 2mm x 8cm coil and [place] 34 and 18 embolic (N/A) Anesthesia Type [...] verification (08/20/171511) Method of Communication: Call (08/20/171511) Litigation Coordinator for Provider: Sammie NUNEZ (08/20/171511) Response: [...] None Code Status: Full Code Item for charge nurse Comments Shift Summary: Pt arrived to the [...] Method of Communication: Face to face (08/20/17899) Litigation Coordinator for Provider: Jethro Guthrie RN (08/20/17899) [...] lan of Care - Jarocho Patel V, SENIOR BUSINESS MANAGER - 08/20/2017 11:44 AM PDTProblem: Patient Care [...] e Screening Note Summary: Acknowledge orders for RN TEAM LEADER swallow evaluation per extubation protocol. OME: WFL. Pt. takin g clear liquids per surgery team without deficits. No overt s/s aspiration noted with consec utive swallows of thin liquids with RN TEAM LEADER. Recommend diet advancement per surgery team. RN TEAM LEADER to s/off, please reorder if status changes. [...] lan of Care - Jarocho Milan V, SENIOR BUSINESS MANAGER - 08/19/2017 3:28 PM PDTProblem: Patient Care [...] A. She sat on edge of bed [id number] with some dizziness, which lessened over time. [...] as well. Physical Therapy will follow Amy hsah (see comments) (5-6x/week) until di scharge from [...] chair ) Goal Status: new Level of Victoria: independent Transfers Bed to Chair: minimal assist (75% patient effort), 2 person assist required Chair to Bed: minimal assist (75% patient effort), 2 person assist required Utilizing: other (see comments) (hand hold assist) Sit to Stand: contact guard assist Stand to Sit: contact guard assist Utilizing: none Status: new Victoria Level: independent Gait Level of Assist: not tested Goal Status: new Goal: independent Device: none Distance: 150' Stairs Comments: STG Status: new Level of Victoria: modified independent # of stairs: 6 Utilizes: [...] be of assistance. lan of Care - [facility] claudia, Erasmo Edwards RN - 08/19/2017 5:33 [...] on Fentanyl 50 and levophed 8. lan [facility] Volodymyr Butcher RRT - 08/19/2017 3:43 AM [...] am. lan of Care - Armando Jones, SENIOR BUSINESS MANAGER - 08/18/2017 5:53 PM PDTProblem: Patient Care [...] RESTRAINT GOALS: Outcome: Unchanged Goal Evaluation: IR [id number] to determine source of LUQ hematoma. No bleed found, however multiple aneury sms found on gastric arteries (see IR note for more detail). Received 5L fluid + 6 unit RBC + 2 unit FFP [facility]. Neuro: Drowsy, opens eyes to command. Movement [...] skin issues. Foam boots on feet from [facility] facility. Pain: Able to rate pain by tapping hand on side of bed. Rates pain at 6/10. Daughter in law and grandson in room from [place], [place]. lan of Samara - Caleb Forte RRT [...] Power MD edation Documentation - Merrick Gaines Moving Picture Producer - 08/18/2017 1:06 AM PDT6 Fr Angioseal used edation Documentation - Merrick Gaines Moving Picture Producer - 08/18/2017 1: 02 AM PDTSuccessful angiogram ,no angiographic evidence of active bleeding. Abnormal vascula ture . edation Documentation - Jennifer Jordan RN - 08/17/2017 11:57 PM PDTPt arrives from ICU o n monitor and vent per bed with DIGITAL COMPUTER SYSTEMS ANALYST and RT who will remain with pt [...] | | | | | [place] | | | | | | [id number] | | | | | | | [...] | | MEDICAL | | | | [facility] [address], | | CENTER | | | | [place] [address] | | LABORATORY | | | | [...] + + | GILBERTO NICHOLAS | [address] | [place] [address] | | | [facility] | | | | | LABORATORY [...] [facility] | | | | Performed by [facility] [address] | | [address] | | | | [address] [place] | | HEART | | | | [phone] | | MEDICAL | | | | [...] + + | [facility] | [address] | [place] [address] | | | [facility] | | | | | [...] | | MEDICAL | | | | [facility] [address], | | CENTER | | | | [place] [address] | | LABORATORY | | | | [...] + + | GILBERTO NICHOLAS | [address] | [place] [address] | | | [facility] | | | | | [...] PROVID ENCE | | | | by [facility] [address], | | SACRED | | | | [place] [address] | | HEART | | | |Performed by [facility] [address], [place] [address] | | MEDICA L | | | [...] + + | ANAODILIASneha YU | [address] | [place] [address] | | | [facility] | | | | | [...] PROVIDENCE | | | | Performed by [facility] [address] | | SACRED | | | | [address] [place] | | HEART | | | | [address] | | MEDICAL | | | | [...] SACRED | [address] | [place] [address] | | | [facility] | | | | | [...] PROVIDENCE | | | | Performed by [facility] [address] | | SACRED | | | | [address] [place] | | HEART | | | | [address] | | MEDICAL | | | | [...] [address] | [place] [address] | | | [facility] | | | | | [...] + + + + | Product | [id number] | | REFERENCE | | | Code | | | [facility] [place] | | | | | | [facility] | | | | | | [facility] | | | | | | BLOOD | | | | | | CENTER | | + + + + + + | UNIT # | [id number] | | REFERENCE | | | | | | [facility] [place] | | | | | | [facility] | | | | | | [facility] | | | | | | BLOOD | | | | | | CENTER | | + + + + + + | UNIT ABO | O | | REFERENCE | | | | | | [facility] [place] | | | | | | [facility] | | | | | | [facility] | | | | | | BLOOD | | | | | | CENTER | | + + + + + + | UNIT RH | POS | | REFERENCE | | | | | | [facility] [place] | | | | | | [facility] | | | | | | [facility] | | | | | | BLOOD | | | | | | CENTER | | + + + + + + | Unit Status | IS | | REFERENCE | | | | | | [facility] [place] | | | | | | [facility] | | | | | | [facility] | | | | | | BLOOD | | | | | | CENTER | | + + + + + + | Blood | [id number] | | REFERENCE | | | Product | | | [facility] [place] | | | Expiration | | | [facility] | | | Date and | | | [facility] | | | Time | | | BLOOD | | | | | | CENTER | | + + + + + + | Product | [id number] | | REFERENCE | | | Blood Type | | | [facility] [place] | | | Barcode | | | [facility] | | | | | | [facility] | | | | | | BLOOD | | | | | | CENTER | | + + + + + + | Product | [id number] | | REFERENCE | | | Code | | | [facility] [place] | | | | | | [facility] | | | | | | [facility] | | | | | | BLOOD | | | | | | CENTER | | + + + + + + | UNIT # | [id number] | | REFERENCE | | | | | | [facility] [place] | | | | | | [facility] | | | | | | [facility] | | | | | | BLOOD | | | | | | CENTER | | + + + + + + | UNIT ABO | O | | REFERENCE | | | | | | [facility] [place] | | | | | | [facility] | | | | | | [facility] | | | | | | BLOOD | | | | | | CENTER | | + + + + + + | UNIT RH | POS | | REFERENCE | | | | | | [facility] [place] | | | | | | [facility] | | | | | | [facility] | | | | | | BLOOD | | | | | | CENTER | | + + + + + + | Unit Status | RE | | REFERENCE | | | | | | [facility] [place] | | | | | | [facility] | | | | | | [facility] | | | | | | BLOOD | | | | | | CENTER | | + + + + + + | Blood | [id number] | | REFERENCE | | | Product | | | [facility] [place] | | | Expiration | | | [facility] | | | Date and | | | [facility] | | | Time | | | BLOOD | | | | | | CENTER | | + + + + + + | Product | [id number] | | REFERENCE | | | Blood Type | | | [facility] [place] | | | Barcode | | | [...] + + + | Specimen Expiration Date: [id number] | REFERENCE LAB | | | [place] [facility] | | | [facility] | | | B[facility]OD CENTER | + + + + + + + + | Performing | Address | City/State/Zipcode | Phone Number | | Organization | | | | + + + + + | REFERENCE LAB | [address] | [place] [address] | [phone] | | [place] [facility] | | | | | [facility] [...] PROVIDENCE | | | | Performed by [facility] [address] | | SACRED | | | | [address] [place] | | HEART | | | | [address] | | MEDICAL | | | | [...] + + | GILBERTO SACRED | [address] | [place] [address] | | | [facility] | | | | | LABORATORY [...] GILBERTO | | | | Performed by [facility] [address] | mmol/L | SACRED | | | | [address], [place] | | HEART | | | | [address] | | MEDICAL | | | | [...] + + | ANAODILIASneha NICHOLAS | [address] | [place] [address] | | | [facility] | | | | | [...] PROVIDENCE | | | | Performed by [facility] [address] | mmol/L | SACRED | | | | [address] [place], [place] | | HEART | | | | [address] | | MEDICAL | | | | [...] + + | CHAVEZE SACRED | [address] | [place] [address] | | | [facility] | | | | | LABORATORY [...] PROVIDENCE | | | | Performed by [facility] [address] | | SACRED | [...] SACRJAD | [address] | [place] [address] | | | HEART [facility] | | | | | [...] CENTER | | | | 3.5Performed by [facility] [address] | | LABORATORY | | | | [address], [place], [place] | | [place] | | | | [address] | | | | + + + + + + + + | Specimen | + + | Blood specimen | | (specimen) | + + + + + + + | Performing | Address | City/State/Zipcode | Phone Number | | Organization | | | | + + + + + | GILBERTO NICHOLAS | [address] | [place] [address] | | | [facility] | | | | | [...] PROVIDENCE | | | Venous | by [place] [address], | mmol/L | SACRED | | | | [place] [address] | | HEART | | | |Performed by [facility] [address], [place] [address] | | MEDICAL | | | | [...] + | GILBERTO NICHOLAS | [address] | [place] [address] | | | [facility] | | | | | [...] | | MEDICAL | | | | [facility] [address], | | CENTER | | | | [place] [address] | | LABORATORY | | | | [...] + + | GILBERTO NICHOLAS | [address] | [place] [address] | | | [facility] | | | | | [...] | MIKE MISTRY | | | | [facility] [address], | | SACRED | | | | [place] [address] | | HEART | | | |Performed by [facility] [address], [place] [address] | | MEDICA L | | | [...] + + | GILBERTO NICHOLAS | [address] | [place] [address] | | | [facility] | | | | | [...] | PROVIDENCE | | | | by [facility] [address], | mmol/L | SACRED | | | | [place] [address] | | HEART | | | |Performed by [facility] [address], [place] [address] | | MEDICAL | | | | [...] + + | PROVIDEODILIAE SACRED | [address] | [place] | | | [facility] | | | | | [...] mg/dL | GILBERTO | | | | [facility] [address], | | SACRED | | | | [place] | | HEART | | | |Performed by [facility] [address] [address] | | MEDICAL | | | | [...] + + | GILBERTO NICHOLAS | [address] | [place] [address] | | | [facility] | | | | | LABORATORY [...] CE | | | ARTERIAL | by [facility] [address], | | SACRED | | | | [place] [address] | | HEART | | | |Performed by [facility] [address], [place] [address] | | MEDICAL | | | | [...] + + | PROVIDENCE SACRED | [address] | [place] [address] | | | [facility] | | | | | [...] PROVIDENCE | | | | Performed by [facility] [address] | | SACRED | | | | [address] [place], [place] | | HEART | | | | [address] | | MEDICAL | | | | [...] + + | GILBERTO NICHOLAS | [address] | [place] [address] | | | HEART [facility] | | | | | [...] CE | | | ARTERIAL | by [facility] [address], | | SACRED | | | | [place] [address] | | HEART | | | |Performed by [facility] [address], [place] [address] | | MEDICAL | | | | [...] + + | ANALENO NICHOLAS | [address] | [place] [address] | | | [facility] | | | | | [...] + + + + + | [employer] | <0.2 | 0.0 - 0.9 [...] [place] | | | | | | [id number] David J | | | | | | Ph:[phone] | | | | + + + + + + + + | Specimen | + + | Blood specimen | | (specimen) | + + + + + + + | Performing | Address | City/State/Zipcode | Phone Number | | Organization | | | | + + + + + | GILBERTO NICHOLAS | [address] | [place] [address] | | | [facility] | | | | | [...] PROVIDENCE | | | Arterial | by [place] [address], | mmol/L | SACRED | | | | [place] [address] | | HEART | | | |Performed by [place] [address], [place] [address] | | MEDICAL | | | | [...] + + | GILBERTO NICHOLAS | [address] | [place] [address] | | | [facility] | | | | | [...] CE | | | ARTERIAL | by [facility] [address], | | SACRED | | | | [place] [address] | | HEART | | | |Performed by [facility] [address], [place] [address] | | MEDICAL | | | | [...] + + | GILBERTO SACRJAD | [address] | [place] [address] | | | [facility] | | | | | LABORATORY [...] PROVIDENCE | | | | Performed by [facility] [address] | | SACRED | [...] | [address] | [place] [address] | | | HEART MEDICAL CENTER | [...] MEDICAL | | | | Performed by [facility] [address] | | CENTER | | | | [address] [place] | | LABORATORY | | | | [address] | | CERNER | | | | [...] + + | GILBERTO NICHOLAS | [address] | [place] [address] | | | [facility] | | | | | [...] | | | Arterial | Performed by [facility] [address] | mmol/L | SACRED | | | | [address] [place] | | HEART | | | | [address] | | MEDICAL | | | | [...] + + | GILBERTO NICHOLAS | [address] | [place] [address] | | | [facility] | | | | | [...] | GILBERTO | | | | by [facility] [address], | mmol/L | SACRED | | | | [place] | | HEART | | | |Performed by [facility] [address], [place] | | MEDICAL | | | [...] + + | PROVIDENCE SACRED | [address] | [place] | | | HEART MEDICAL CENTER [...] | | | ARTERIAL | Performed by [facility] [address] | | SACRED | | | | [address] [place] | | HEART | | | | [address] | | MEDICAL | | | | [...] + + | ANAODILIASneha YU | [address] | [place] [address] | | | [facility] | | | | | [...] PROVIDENCE | | | | Performed by [facility] [address] | | SACRED | | | | [address] [place] | | HEART | | | | [address] | | MEDICAL | | | | [...] NICHOLAS | [address] | [place] [address] | | | [facility] | | | | | [...] PROVIDENCE | | | Venous | by [facility] [address], | mmol/L | SACRED | | | | [place] | | HEART | | | |Performed by [facility] [address], [place] | | MEDICAL | | | [...] SACRED | [address] | [place] | | | HEART MEDICAL CENTER [...] | | MEDICAL | | | | [facility] [address], | | CENTER | | | | [place] [address] | | LABORATORY | | | | [...] + + | GILBERTO SACRJAD | [address] | [place] [address] | | | [facility] | | | | | [...] | | HEART | | | | [facility] | | MEDICAL | [...] IOM | | | | | | ([place] [facility]). | | | | | [...] [facility] | | | | | | [address] | | | | | | [facility] [address] [place], [place] | | | | | | [id number] Daniel | | | | | | L Ph:[phone] | | | | + + + + + + + + | Specimen | + + | Blood specimen | | (specimen) | + + + + + + + | Performing | Address | City/State/Zipcode | Phone Number | | Organization | | | | + + + + + | GILBERTO NICHOLAS | [address] | [place] [address] | | | [facility] | | | | | [...] PROVIDENCE | | | Venous | by [facility] [address], | mmol/L | SACRED | | | | [place] [address] | | HEART | | | |Performed by [facility] [address], [place] [address] | | MEDICAL | | | | [...] SACRED | [address] | [place] [address] | | | [facility] | | | | | [...] MIKE ENCE | | | Cells | [facility] [address], | | SACRED | | | | [place] | | HEART | | | |Performed by [facility] [address], [place] | | MEDICA L | | [...] + + | GILBERTO SACRED | [address] | [place] [address] | | | [facility]ART MEDICAL CENTER | [...] | PROVIDENCE | | | | by [facility] [address], | mmol/L | SACRED | | | | [place] [address] | | HEART | | | |Performed by [facility] [address], [place] [address] | | MEDICAL | | | | [...] + + | GILBERTO NICHOLAS | [address] | [place] [address] | | | [facility] | | | | | [...] | | | Arterial | Performed by [facility] [address] | mmol/L | SACRED | | | | [address] [place] | | HEART | | | | [address] | | MEDICAL | | | | [...] + + | GILBERTO NICHOLAS | [address] | [place] [address] | | | [facility]ICAL CENTER | [...] E | | | Normalized | by [facility] [address], | mg/dL | SACRED | | | | [place] [address] | | HEART | | | |Performed by [facility] [address], [place] [address] | | MEDICAL | | | | [...] + + | GILBERTO YU | [address] | [place] [address] | | | [facility] | | | | | [...] CE | | | ARTERIAL | by [facility] [address], | | SACRED | | | | [place] [address] | | HEART | | | |Performed by [facility] [address], [place] [address] | | MEDICAL | | | | [...] + + + + + | GILBERTO [facility] | [address] | [place] [address] | | | [facility] | | | | | [...] | | | Venous | Performed by [facility] [address] | mmol/L | SACRED | | | | [address], [place] | | HEART | | | | [address] | | MEDICAL | | | | [...] [address] | [place] [address] | | | HEART [facility] | | | | | [...] | PROVIDENCE | | | | by [facility] [address], | | SACRED | | | | [place] [address] | | HEART | | | |Performed by [facility] [address], [place] [address] | | MEDICAL | | | | [...] sst | GILBERTO | | | [facility]U [facility] | | | MEDICAL CENTER | | | LABORATORY | | | [place] | + + + + + + + + | Performing | Address | City/State/Zipcode | Phone Number | | Organization | | | | + + + + + | GILBERTO NICHOLAS | [address] | [place] [address] | | | [facility] MEDICAL [facility]ENTER | [...] PROVIDENCE | | | | Performed by [facility] [address] | | SACRED | | | | [address] [place] | | HEART | | | | [address] | | MEDICAL | | | | [...] + | ANAODILIASneha NICHOLAS | [address] | [place] [address] | | | [facility] | | | | | [...] Seldinger technique, a 6 | | | Bermudian sheath was positioned into the right common femoral artery and | | | attached to a flush system. A 5 B[place]udian Scott 2 catheter was | | | then positioned through a 6 Bermudian guiding catheter an utilized to | | [...] | Hemostasis was achieved with a 6 [place]ian Angio-Seal device. | | | Maximum sterile [...] | | standard Seldinger technique, a 6 [place]udian sheath was positioned into | | the right common femoral artery and attached to a flush system. | | | | A 5 [place]ian Scott 2 catheter was then positioned through a 6 [place]ian | | guiding catheter an utilized to [...] performed. Hemostasis was achieved with a 6 [place]ian | | Angio-Seal device. | | | [...] PROVIDENCE | | | | Performed by [facility] [address] | | SACRED | | | | [address] [place] | | HEART | | | | [address] | | MEDICAL | | | | [...] SACRED | [address] | [place] [address] | | | HEART MEDICAL CENTER | [...] | | | Venous | Performed by [facility] [address] | mmol/L | SACRED | | | | [address], [place] | | HEART | | | | [address] | | MEDICAL | | | | [...] + + | ANAODILIASneha YU | [address] | [place] [address] | | | [facility] | | | | | [...] | | | Normalized | Performed by [facility] [address] | mg/dL | SACRED | | | | [address] [place] | | HEART | | | | [address] | | MEDICAL | | | | [...] + + | ANAODILIASneha NICHOLAS | [address] | [place] [address] | | | [facility] | | | | | [...] | PROVIDENCE | | | | by [facility] [address], | mmol/L | SACRED | | | | [place] [address] | | HEART | | | |Performed by [facility] [address], [place] [address] | | MEDICAL | | | | [...] SACR | [address] | [place] [address] | | | [facility] | | | | | [...] GILBERTO | | | | Performed by [facility] [address] | | SACRED | | | | [address], [place] | | HEART | | | | [address] | | MEDICAL | | | | [...] + + | GILBERTO NICHOLAS | [address] | [place] [address] | | | [facility] | | | | | [...] ANAN CE | | | | by [facility] [address], | | SACRED | | | | [place] [address] | | HEART | | | |Performed by [facility] [address], [place] [address] | | MEDICAL | | | | [...] SACRED | [address] | [place] [address] | | | HEART MEDICAL CENTER | [...] PROVIDENCE | | | | Performed by [facility] [address] | | SACRED | | | | [address], [place] | | HEART | | | | [address] | | MEDICAL | | | | [...] [address] | [place] [address] | | | [facility] | | | | | [...] | | | REPORT | Performed by [facility] [address] | | SACRED | | | | [address], [place] | | HEART | | | | [address] | | MEDICAL | | | | [...] + + | ANAODILIASneha NICHOLAS | [address] | [place] [address] | | | [facility] | | | | | [...] | | | REPORT | Performed by [facility] [address] | | SACRED | | | | [address], [place] | | HEART | | | | [address] | | MEDICAL | | | | [...] [address] 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 [employer] Procedure Type of Study TTE procedure: | [...] Atrium Left Ventricle EF | | | Gozgfazqt69% | | | Electronically signed by Mara [...] | | | | | | EF Lnosoyxqg90% | | | | | + + --+ + + | Procedure Note | + + | Daniel You Results In - 08/18/2017 11:38 AM PDT Transthoracic Echocardiography Report | | (TTE) Demographics Patient Name MARCELLA MONTAÑO I Room Number 258 Patient | | Number [id number] Date of Study 08/18/2017 Visit Number [id number] | | Referring Physician BRI Sánchez Date of | | 1955 Revenue Director Julien Zamora Age 62 year(s) | | Interpreting [facility] Occupational Health Coordinator | | Mara Patton MD Gender | [...] Left Atrium Left Ventricle EF | | Cynvofibm68% | |Conclusions | |Summary | |1. Small [...] Left Ventricle | | | | EF Amrkewivj78% | + + + +---------+ + + [...] | | | Arterial | Performed by [facility] [address] | mmol/L | SACRED | | | | [address], [place] | | HEART | | | | [address] | | MEDICAL | | | | [...] | [address] | [place] [address] | | | HEART MEDICAL CENTER | [...] E | | | Normalized | by [facility] [address], | mg/dL | SACRED | | | | [place] [address] | | HEART | | | |Performed by [facility] [address], [place] [address] | | MEDICAL | | | | [...] + + | GILBERTO NICHOLAS | [address] | [place] [address] | | | [facility] | | | | | [...] GILBERTO | | | | Performed by [facility] [address] | | SACRED | | | | [address] [place] | | HEART | | | | [address] | | MEDICAL | | | | [...] + + | GILBERTO NICHOLAS | [address] | [place] [address] | | | [facility] | | | | | [...] CE | | | ARTERIAL | by [facility] [address], | | SACRED | | | | [place] | | HEART | | | |Performed by [facility] [address], [place] | | MEDICAL | | | [...] + + | PROVIDENCE SACRED | [address] | [place] | | | HEART [facility] | | | | | [...] PROVID ENCE | | | | by [facility] [address], | | SACRED | | | | [place] [address] | | HEART | | | |Performed by [facility] [address], [place] [address] | | MEDICA L | | | [...] + + | PROVID[facility] SACRED | [address] | [place] [address] | | | [facility] | | | | | [...] | | LABORATORY | | | | [facility] [address], | | [place] | | | | [place] [address] | | | | + + + + + + + + | Specimen | + + | Blood specimen | | (specimen) | + + + + + + + | Performing | Address | City/State/Zipcode | Phone Number | | Organization | | | | + + + + + | GILBERTO [facility]ICHOL[facility] | [address] | [place] [address] | | | [facility] | | | | | [...] [facility] | | | | by [place] [address], | | SACRED | | | | [place] [address] | | HEART | | | |Performed by [facility] [address], [place] [address] | | MEDICAL | | | | [...] + + | GILBERTO NICHOLAS | [address] | [place] [address] | | | [facility] | | | | | [...] YUNIOR CE | | | | by [facility] [address], | | SACRED | | | | [place] [address] | | HEART | | | |Performed by [facility] [address], [place] [address] | | MEDICAL | | | | [...] + + | [facility] | [address] | [place] [address] | | | [facility] | | | | | LABORATORY [...] | | MEDICAL | | | | [facility] [address] | | CENTER | | | | [place] [address] | | LABORATORY | | | | [...] + | GILBERTO NICHOLAS | [address] | [place] [address] | | | [facility] | | | | | [...] | [facility] E | | | | [facility] [address], | | SACRED | | | | [place] [address] | | HEART | | | |Performed by [facility] [address], [place] [address] | | MEDICAL | | | | [...] + + | [facility] | [address] | [place] [id number] | | | [facility] | | | | | LABORATORY [...] - 1.030 | [facility] | | | [place], | | | SACRED | | | [...] | | | SOURCE | Performed by [facility] [address] | | SACRED | | | | [address] [place] | | HEART | | | | [id number] | | MEDICAL | | | | [...] + + | GILBERTO NICHOLAS | [address] | [place] [id number] | | | [facility] | | | | | [...] [facility] | | | | by [facility] [address], | | SACRED | | | | [place] [address] | | HEART | | | |Performed by [facility] [address], [place] [address] | | MEDICA L | | | [...] + + | ANALENO NICHOLAS | [address] | [place] [address] | | | [facility] | | | | | [...] [facility] | | | Source | by [facility] [address], | | SACRED | | | | [place] [address] | | HEART | | | |Performed by [facility] [address], [place] [address] | | MEDICAL | | | | [...] + + | ANAODILIASneha NICHOLAS | [address] | [place] [address] | | | [facility] | | | | | [...] and a short | | | 5 Bermudian vascular sheath was placed. A 5 B[place]udian Scott 1 catheter | | | was [...] performed and a short | | 5 Bermudian vascular sheath was placed. A 5 [place]udian Scott 1 catheter | | was formed [...] | | | | | seconds.Performed by [facility] | | | | | | [address], | | | | | | [place] [address] | | | | + + + + + + + + | Specimen | + + | Blood specimen | | (specimen) | + + + + + + + | Performing | Address | City/State/Zipcode | Phone Number | | Organization | | | | + + + + + | GILBERTO NICHOLAS | [address] | [place] [address] | | | [facility] | | | | | [...] | | | Normalized | Performed by [facility] [address] | mg/dL | [facility] | | | | [address] [place] | | HEART | | | | [id number] | | MEDICAL | | | | [...] + + | ANAODILIASneha YU | [address] | [place] [address] | | | [facility] | | | | | [...] | PROVIDENCE | | | | by [facility] [address], | mmol/L | [place]CRED | | | | [place] [address] | | HEART | | | |Performed by [facility] [address], [place] [address] | | MEDICAL | | | | [...] + + | GILBERTO NICHOLAS | [address] [place] | [place] [address] | | | [facility] | | | | | [...] | PROVIDENCE | | | | by [facility] [address], | mmol/L | [place]CRED | | | | [place] [address] | | HEART | | | |Performed by [facility] [address], [place] [address] | | MEDICAL | | | | [...] + + | GILBERTO NICHOLAS | [address] | [place] [address] | | | [facility] | | | | | [...] GILBERTO | | | | Performed by [facility] [address] | | SACRED | | | | [address], [place] | | HEART | | | | [address] | | MEDICAL | | | | [...] + + | GILBERTO NICHOLAS | [address] | [place] [address] | | | [facility] | | | | | [...] CE | | | ARTERIAL | by [facility] [address], | | SACRED | | | | [place] | | HEART | | | |Performed by [facility] [address], [place], [place] | | MEDICAL | | | [...] NICHOLAS | [address] | [place] [address] | | | HEART [facility] | | | | | [...] PROVIDE NCE | | | | by [facility] [address], | | SACRED | | | | [place] | | HEART | | | |Performed by [facility] [address], [place] [address] | | MEDICAL | | | | [...] + + | GILBERTO NICHOLAS | [address] | [place] [address] | | | [facility] | | | | | [...] | | | | | | LAB [place] | | | | | | [facility] | | | | | | [facility] | | | | | | [facility] | | | | | | CENTER | | + + + + + + | Rh Type | Positive | | REFERENCE | | | | | | [facility] [place] | | | | | | [facility] | | | | | | [facility] | | | | | | BLOOD | | | | | | CENTER | | + + + + + + + + | Specimen | + + | | + + + + + | Narrative | Performed At | + + + | Specimen Expiration Date: [id number] | REFERENCE LAB | | | [place] [facility] | | | [facility] | | | [facility] | + + + + + + + + | Performing | Address | City/State/Zipcode | Phone Number | | Organization | | | | + + + + + | REFERENCE LAB | [address] | [place] [address] | [phone] | | [place] [facility] | | | | | [facility] [...] PROVIDEN CE | | | | by [facility] [address], | | SACRED | | | | [place] [address] | | HEART | | | |Performed by [facility] [address], [place] [address] | | MEDICAL | | | | [...] + + | GILBERTO NICHOLAS | [address] | [place] [address] | | | [facility] | | | | | [...] | | MEDICAL | | | | [facility] [address], | | CENTER | | | | [place] [address] | | LABORATORY | | | | [...] + + | ANALENO SAENZJAD | [address] | [place] [address] | | | [facility] | | | | | [...] ENCE | | | Basophils | by [facility] [address], | K/uL | SACRED | | | | [place] [address] | | HEART | | | |Performed by [facility] [address], [place] [address] | | MEDICA L | | | [...] + + | GILBERTO NICHOLAS | [address] | [place] [address] | | | [facility] | | | | | [...] | | | | | | [facility] [place] | | | | | | [facility] | | | | | | [facility] | | | | | | [facility] | | | | | | CENTER | | + + + + + + | Rh Type | PositiveComment: Patient | | REFERENCE | | | | is remote crossmatch | | [facility] [place] | | | | eligible | | [facility] | | | | | | [facility] | | | | | | BLOOD | | | | | | CENTER | | + + + + + + | Antibody | Negative | | REFERENCE | | | Screen | | | [facility] [place] | | | | | | [facility] [...] + + + | Specimen Expiration Date: [id number] | REFERENCE LAB | | | [place] [facility] | | | [facility] | | | [facility] | + + + + + + + + | Performing | Address | City/State/Zipcode | Phone Number | | Organization | | | | + + + + + | REFERENCE LAB | [address] | [place] [address] | [phone] | | [place] | | | | | [facility] [...] | mL/hr | | | Hours, ONCE, [facility] 08/18/17 at 0830, | | AM PDT [...] | | | | | | Starting [facility] 08/18/17 at 0508 | | [...] | | | (after last modification) on [facility] | | | | | [...] | | | | | | | [id number]-[id number] | | | | | | | [...] | | | | < 4.75, Starting [facility] 08/18/17 at | | | [...] | | +---+---+ + +-------+ +---+---+---+ | [id number]-qrxwhhhgj-fszlzuqbli | Given | 08/20/19 | | | [...] | | | | | | Starting [facility] 08/18/17 at 0616, | | [...] | | | | | TITRATED, Starting [facility] 08/18/17 at | | | [...]
--- OUTSIDE RECORDS SUMMARY | ~2019-12-07 | XMS | Encounter Summary ---
Demographics + + + | Address | [address] | | | [place] [address] | + + + | Home Phone [...] | [place] | | | | | [address] | | + + + + + | Mila Desai | ECON | Unknown | | + + + + + Care Team Providers + +------+ + | Care Deputy Felony Clerk Name | Role | Phone | [...] | F/U APPT | [address] | [place] [address] | | | | | DR LEVY | [place], | Phone: | | | | | [place] | [place] | [phone] | | | | | 12/30/17 | [address] | Fax: | | | | | | Phone: | [phone] | | | | | | [phone] | | | | | | | Fax: | | | | | | | [phone] | | +--------+--------+ + + + + Encounter Details +--------+---------+ + + + | Date | Type | Department | Care Team | Description | +--------+---------+ + + + | 12/30/ | Office | [facility] | Tyree Joyce, | COPD, moderate (HCC) | | 2018 | Visit | PULMONARY [address] | MD [address] | (Primary Dx); Need | | | | [place], | [place] | for pneumococcal | | | | [place] [address] | [address] | vaccine | | | | [phone] | | | +--------+---------+ + + + [...] What is this medicine? FORMOTEROL; MOMETASONE (for [facility] bhaskar kim MET a sone) inhalation is [...] information carefully each time. Talk to your oil tank car cleaner regarding the use of this medicine in children. Special care may be needed. What side effects may I notice from receiving this medicine? Side effects that you should report to your doctor or health home care and home health aides teacher as soon as p ossible: allergic reactions [...] attention (report to your doctor or health home care and home health aides teacher if they continue or are bothersome): changes [...] check ups. 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
[~2019-12-07 06:13] MED LIST changes: +ANORO ELLIPTA1 EACH INH; +ASPIRIN EC81 MG PO; +BREO ELLIPTA I1 EACH INH; +GABAPENTIN100 MG PO; +METRONIDAZOLE55 GM; +NORCO 5-325 TA1 EACH PO; +NORTRIPTYLINE H25 MG PO; +PREDNISONE20 MG; +ZOFRAN4 MG PO
--- OUTSIDE RECORDS SUMMARY | 2019-12-07 06:16 | XMS ---
PreManage Notification: DANYEL NARANJO Security Telephone Repairer Events No recent Security Events currently on file CRITERIA MET - Group Notification - [facility] - Has Care Guidelines - [facility] - 2 Visits in 30 Days CARE PROVIDERS BRONSON HARDWICK Internal Medicine 09/29/2017-Current PHONE: [phone] [facility] has no Care Guidelines for this patient. Care History Medical/Surgical 08/25/2017 [facility] - PATIENT HAS PCP FOLLOW UP APT ON 01/30/[address] HARDWICK. - Patient is currently established with [facility]. If patient is seen in the ED during business hours. Please contact CHWs at [facility] at Ext [phone]. Care Recommendation: This patient has had 5 or more Emergency Department visits in the last 12 months.\T\nbsp; Patient requires education on the scope and purpose of the ED as an acute care provider not a Primary Care Provider and should not be utilized for chronic conditions.\T\nbsp; If patient returns to ED please contact Community Health WorkerYanira at [phone]. These are guidelines and the provider should exercise clinical judgment when providing care. E.D. VISIT COUNT (12 MO.) [address] [facility] TOTAL 4 NOTE: Visits indicate total known visits. ED/UCC VISIT TRACKING (12 MO.) 12/07/2019 06:14 [facility] [place] TYPE: Emergency COMPLAINT: - ABD PAIN 12/06/2019 17:34 [facility] [place] TYPE: Emergency COMPLAINT: - R SIDE ABDOMINAL PAIN 06/09/2019 03:29 [facility] [place] TYPE: Emergency COMPLAINT: - CHEST PAIN DIAGNOSES: - Allergy status to penicillin - Chest pain, unspecified - Chronic obstructive pulmonary disease, unspecified - Personal history of nicotine dependence - Chest pain, unspecified - Other termite treater helper (current) drug therapy 01/22/2019 21:33 [facility] [place] TYPE: Emergency COMPLAINT: - NAUSEA,ABDOMINAL PAIN DIAGNOSES: - Allergy status to other drugs, medicaments and biological sub - Epigastric pain - Personal history of nicotine dependence - Other fci (current) drug therapy - supervisor intermediates (current) use of aspirin - Allergy status to penicillin - Chronic obstructive pulmonary disease, unspecified - Allergy status to other antibiotic agents status INPATIENT VISIT TRACKING (12 MO.) No inpatient visits to display in this time frame [email or web address]
--- NOTE | 2019-12-07 10:12 | EKG ---
[facility] [address] [facility] [place], [place] [address] Signed Normal sinus rhythm Normal ECG When compared with ECG of 09-JUN-2019 03:35, No significant change was found Confirmed by ANDREE VERAS MD ([id number]) on 12/07/2019 10:12:22 AM Electronically Signed By: ANDREE VERAS MD 12/07/19 1012 PATIENT NAME: DANYEL NARANJO AURA Electrocardiogram DATE OF : 51 PHYSICIAN: ANDREE VERAS MD REPORT #: [id number] REPORT IS CONFIDENTIAL AND NOT TO BE RELEASED WITHOUT AUTHORIZATION
== END 2019-12-07 07:40 | disposition home or self-care (01) ==
LOC: ED 06:13
DX: G89.29 Other chronic pain (principal); R10.11 Right upper quadrant pain; J44.9 Chronic obstructive pulmonary disease, unspecified; Z87.891 Personal history of nicotine dependence; Z88.0 Allergy status to penicillin; Z88.8 Allergy status to other drugs, medicaments and biological substances; Z88.1 Allergy status to other antibiotic agents; Z79.899 Other long term (current) drug therapy; Z79.82 Long term (current) use of aspirin
CPT/HCPCS: 71045; 93005; 93010; 99285-25

== ENCOUNTER 2019-12-20 13:59 | Emergency (ER) | payer MEDICARE, MEDICAID ==
[~2019-12-20] VITALS: Ht 165.1 cm; Wt 75.3 kg
--- OUTSIDE RECORDS SUMMARY | ~2019-12-20 | XMS | Encounter Summary ---
Demographics + + + | Address | [address] | | | [place] [address] | + + + | Home Phone | | + + + | Preferred Language | Unknown | + + + | Marital Status | | + + + | Mormon Affiliation | 1028 | + + + | Race | White | + + + | Ethnic Group | Not or | + + + Author + + + | Author | [facility] | | | and [place] | + + + | Organization | [facility] | | | and [place] | + + + | Address | Unknown | + + + | Phone | Unavailable | + + + Support + + + + + | Name | Relationship | Address | Phone | + + + + + | Joseluis Desai | [place] | [place] | | | | | [address] | | + + + + + | Mila Desai | ECON | Unknown | | + + + + + Care Team Providers + +------+ + | Care Catalog Library Assistant Name | Role | Phone | + [...] [address] | | | | | IMAGING [address] | | | | | [address] | [place] [address] | | | | | [place] [address] | | | | | | [phone] | | | +--------+ + + + [...] Visit | and Rehabilitation | MD Gisele Ram | | | | | | [place] | | | | | | [address] | | | | | | | [...]
--- OUTSIDE RECORDS SUMMARY | ~2019-12-20 | XMS | Encounter Summary ---
Demographics + + + | Address | [address] | | | [place] [address] | + + + | Home Phone | | + + + | Preferred Language | Unknown | + + + | Marital Status | | + + + | Lutheran Affiliation | 1028 | + + + | Race | White | + + + | Ethnic Group | Not or | + + + Author + + + | Author | [facility] | | | and [place] | + + + | Organization | [facility] | | | and [place] | + + + | Address | Unknown | + + + | Phone | Unavailable | + + + Support + + + + + | Name | Relationship | Address | Phone | + + + + + | Joseluis Desai | [address] | [place] | | | | | [address] | | + + + + + | Mila Desai | ECON | Unknown | | + + + + + Care Team Providers + +------+ + | Care Combining Machine Operator Name | Role | Phone | + +------+ + | Bry Vaughn DO | PCP | | + +------+ + Reason for Visit +--------+ + | Reason | Comments | +--------+ + | COPD | 3 wk follow up/PFT | +--------+ + Evaluate & Treat (Routine) +--------+--------+ + + + + | Status | Reason | Specialty | Diagnoses / | Referred By | Referred To | | | | | Procedures | Contact | Contact | +--------+--------+ + + + + | Closed | | Pulmonary | Diagnoses | Roderick, | Isiah, | | | | Disease / | COPD, | DO Bry | MD Tyree | | | | Pulmonology | severe (HCC) | [address] | [address] | | | | | Procedures | Onel Landa | GIOVANNA HEREDIA, | | | | | F/U APPT | [facility] [address] | [place] [address] | | | | | DR LEVY | [place], | Phone: | | | | | [place] | [place] | [phone] | | | | | 12/30/17 | [address] | Fax: | | | | | | Phone: | [phone] | | | | | | [phone] | | | | | | | Fax: | | | | | | | [phone] | | +--------+--------+ + + + + Encounter Details +--------+---------+ + + + | Date | Type | Department | Care Team | Description | +--------+---------+ + + + | 12/30/ | Office | [facility] | Tyree Joyce, | COPD, moderate (HCC) | | 2018 | Visit | PULMONARY [address] | MD [address] | (Primary Dx); Need | | | | [place], | [place] | for pneumococcal | | | | [place] [address] | [address] | vaccine | | | | [phone] | | | +--------+---------+ + + + [...] + + + | Blood Pressure | 112/72 | 12/30/2017 1:52 PM | | | | | PDT | | + + + + + | Pulse | 50 | 12/30/2017 1:52 PM | | | | | PDT | | + + + + + | Temperature | - | - | | + + + + + | Respiratory Rate | - | - | | + + + + + | Oxygen Saturation | 99% | 12/30/2017 1:52 PM | RA | | | | PDT | | + + + + + | Inhaled Oxygen | - | - | | | Concentration | | | | + + + + + | Weight | 60.3 kg (132 lb 15 | 12/30/2017 1:52 PM | | | | oz) | PDT | | + + + + + | Height | 165.1 cm (5' 5") | 12/30/2017 1:52 PM | | | | | PDT | | + + + + + | Body Mass Index | 22.12 | 12/30/2017 1:52 PM | | | | | PDT | | + + + + + documented in this encounter Patient Instructions Patient Instructions Tyree oJyce MD - 12/30/2017 2:00 PM PDT Formoterol; Mometasone metered dose inhaler Brand Name: Halie What is this medicine? FORMOTEROL; MOMETASONE (for [facility] bhaskar kim MET a sone) inhalation is a combination of two medicines that decrease inflammation and help to open up the airways in your lungs. It is us ed to treat asthma. Do NOT use in an acute asthma attack. How should I use this medicine? This medicine is inhaled through the mouth. Follow the directions on the prescription label . Rinse your mouth with water after use. Make sure not to swallow the water. Take your medic ine at regular intervals. Do not take your medicine more often than directed. Do not stop ta miguel except on your doctor's advice. Make sure that you are using your inhaler correctly. As k your doctor or health care provider if you have any questions. A special MedGuide will be given to you by the pharmacist with each prescription and refill . Be sure to read this information carefully each time. Talk to your fleet dispatch manager regarding the use of this medicine in children. Special care may be needed. What side effects may I notice from receiving this medicine? Side effects that you should report to your doctor or health customer care professional as soon as p ossible: allergic reactions like skin rash or hives, swelling of the face, lips, or tongue breathing problems changes in vision chest pain dizziness fast, irregular heartbeat feeling faint or lightheaded, falls fever or chills high blood pressure infection nausea, vomiting tremors unusually weak or tired white patches or sores in the mouth or throat Side effects that usually do not require medical attention (report to your doctor or health customer care professional if they continue or are bothersome): changes in taste coughing, hoarseness or throat irritation dry mouth headache muscle pain stomach upset What may interact with this medicine? Do not take this medicine with any of the following mediations: MAOIs like Carbex, Eldepryl, Marplan, Nardil, and Parnate This medicine may also interact with the following medications: aminophylline or theophylline antiviral medicines for HIV or AIDS certain antibiotics like clarithromycin, linezolid, and telithromycin certain medicines for blood pressure, heart disease, or irregular heart beat certain medicines for colds certain medicines for depression or emotional conditions certain medicines for fungal infections like ketoconazole and itraconazole cobicistat diuretics other medicines for breathing problems What if I miss a dose? If you miss a dose, use it as soon as you remember. If it is almost time for your next dose , use only that dose and continue with your regular schedule, spacing doses evenly. Do not u se double or extra doses. Where should I keep my medicine? Keep out of the reach of children. Store at room temperature between 59 and 86 degrees F (15 and 30 degrees C). Throw away the inhaler after the dose counter reaches 0 or after the expiration date, whichever comes firs t. Avoid exposure to heat, fire, and flame. What should I tell my health care provider before I take this medicine? They need to know if you have any of these conditions: bone problems diabetes glaucoma heart disease or irregular heartbeat high blood pressure immune system problems infection, like chickenpox, tuberculosis, herpes, or fungal infection pheochromocytoma recent surgery or injury of the mouth or throat seizures taking corticosteroids by mouth thyroid disease worsening asthma an unusual or allergic reaction to formoterol, mometasone, steroids, other medicines, fo ods, dyes, or preservatives or trying to get breast-feeding breast-feeding What should I watch for while using this medicine? Visit your doctor for regular check ups. Tell your doctor or health customer care professional if yo ur symptoms do not get better. Do not use this medicine more than every 12 hours. NEVER use this medicine for an acute asthma attack. You should use your short-acting rescue inhalers for this purpose. If your symptoms get worse or if you need your short-acting inha lers more often, call your doctor right away. This medicine may increase your risk of getting an infection. Tell your doctor or health ca re professional if you are around anyone with measles or chickenpox, or if you develop sores or blisters that do not heal properly. NOTE:This sheet is a summary. It may not cover all possible information. If you have questi ons about this medicine, talk to your doctor, pharmacist, or health care provider. Copyright 2018 [employer] documented in this encounter Progress Notes Tyree Joyce MD - 12/30/2017 2:00 PM PDTFormatting of this note might be different f rom the original. Pulmonary Follow Up 12/30/2017 HPI Amy Coleman is a 62 y.o. female patient of Bry Vaughn DO here today for follow u p of Gold Stage II COPD. The last pulmonary clinic visit was on 12/12/17. Since their last appointment they feel like their breathing issues have been decreasing significantly. Specifically at the time the pa cedric's last clinic appointment Breo was initiated. They have not had any acute pulmonary illnesses. The patient has not required a prednisone taper since our last clinic appointment. Likewise Amy has not required antibiotics for a COPD exacerbation since our last clinic appointment. The patient is currently on a daily regimen of Breo for their COPD. They do feel like this medication regimen is/are controlling their symptoms. Currently she is using their short a cting bronchodilator, Ventolin, <1 times a day. They are using their Douneb nebulizer, 2 codi es in last 2-3 weeks. Currently the patient is able to walk 2400 feet at their own pace on level ground before de veloping dyspnea. They are not exercising regularly. Their typical exercise consists of work ing outside. Amy are not enrolled in cardiac/pulmonary rehabilitation. They have not comp leted pulmonary rehabilitation in the past. Amy does not cough chronically and does not produce mucous. They have not had hemoptysis since our last appointment. She has not been evaluated for nocturnal oxygen. They have not reported recent symptoms of nasal congestion, runny nose or post nasal drip. The patient have not received this year's influenza vaccination. They are up to date with their Pneumovax but not Prevnar 13. 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 She started smoking about 51 years a go. She has a 50.00 pack-year smoking history. She has never used smokeless tobacco. She rep orts that she drinks alcohol. She reports that she uses drugs, including Marijuana. Allergies: Allergies Allergen Reactions Amoxicillin Cephalexin Hydroxyzine Hcl Penicillins Ranitidine Hcl Medications: Current Outpatient Prescriptions: albuterol (VENTOLIN HFA) 90 mcg/puff inhaler, Inhale [...] into both eyes Daily., Disp: , Rfl: fluticasone-vilanterol (BREO ELLIPTA) 100-25 mcg/puff inhaler, Inhale 1 puff into the lungs Daily., Disp: 1 each, Rfl: 0 ipratropium (ATROVENT) 500 mcg/2.5 mL nebulizer solution, Take 2.5 mLs by nebulization every 4 hours as needed., Disp: 225 mL, Rfl: lisinopril (PRINIVIL, ZESTRIL) 10 mg tablet, Take 1 tablet by mouth Daily., Disp: 30 t ablet, Rfl: 0 Multiple Vitamins-Minerals (SENIOR MULTIVITAMIN PLUS) TABS, Take 1 tablet by mouth Jacqueline ly., Disp: , Rfl: nitroglycerin (NITROSTAT) 0.4 mg SL tablet, Place [...] by mouth Daily., Disp: , Rfl: 0 No current facility-administered medications for this visit. Immunizations: Immunization History Administered Date(s) Administered INFLUENZA PF QUAD(PED/ADOL/ADULT),PSKT or VIAL 10/30/2014, 11/19/2015, 11/08/2017 INFLUENZA, W/Preservative 12/12/2013 PNEUMOCOCCAL POLYSACCHARIDE 23-VALENT (PPSV23) 12/26/2013 TDAP, (ADOL/ADULT) 07/12/2016 ZOSTER, 1 DOSE (ADULT) 07/12/2016 Objective BP 112/72 | Pulse 50 | Ht 1.651 m (5' 5") | Wt 60.3 kg (132 lb 15 oz) | SpO2 99% Commen t: RA | BMI 22.12 kg/m Physical Exam Constitutional: She is oriented [...] show no clubbing. Psychiatric: Affect normal. Data: Exertional oximetry performed 12/30/17. Patient walked 800 feet over 3.5 minutes. O2 satu ration started 99% and steve to 90%. Pulmonary function tests were performed on 12/30/17 and were reviewed with the patient nathalia burgess. They show a prebronchodilator FEV1 1.62, 67% of predicted. Residual volume was 2.35, 11 1% of predicted with an uncorrected DLCO 16.5, 67% of predicted. Assessment 1. COPD based on pulmonary function test from today this patient's COPD is characterized as Gold stage II. At the time of the patient's last clinic appointment Breo was initiated. Amy subsequentl y noted marked improvement of her exertional tolerance and significant decrease in her use o f Ventolin/DuoNeb. The patient is up-to-date with respect to her seasonal influenza vaccination and Pneumovax. Amy is due for a Prevnar 13. Patient was encouraged to initiate regular scheduled exercise. No evidence of exertional hypoxemia. Plan 1. Related to formulary preferences Breo will be converted to Dulera. Of note the patient has apparently already used Advair without significant clinical benefit. 2. Prevnar 13 today. 3. The interval between pulmonary clinic follow-up appointments will be lengthened to 6 mo nths. CC: Bry Vaughn, DO Tdocumented in this encounter Plan of [...] [place] | | | | | | [id number] | | | | | | | | +--------+---------+ + + + documented as of this encounter Visit Diagnoses + + | Diagnosis | + + | COPD, moderate (HCC) - Primary Chronic airway obstruction, not elsewhere classified | + + | Need for pneumococcal vaccine Need for prophylactic vaccination against streptococcus | | pneumoniae (pneumococcus) | + + documented in this encounter
--- OUTSIDE RECORDS SUMMARY | ~2019-12-20 | XMS | Encounter Summary ---
Demographics + + + | Address | [address] | | | [place] [address] | + + + | Home Phone | | + + + | Preferred Language | Unknown | + + + | Marital Status | | + + + | Baptism Affiliation | 1028 | + + + | Race | White | + + + | Ethnic Group | Not or | + + + Author + + + | Author | [facility] | | | and [place] | + + + | Organization | [facility] | | | and [place] | + + + | Address | Unknown | + + + | Phone | Unavailable | + + + Support + + + + + | Name | Relationship | Address | Phone | + + + + + | Joseluis Desai | ECON | [place] | | | | | [address] | | + + + + + | Mila Desai | ECON | Unknown | | + + + + + Care Team Providers + +------+ + | Care Decision Analyst Name | Role | Phone | + +------+ + | Bry Vaughn DO | PCP | | + +------+ + Reason for Visit + +--------+ + | Reason | Onset | Comments | | | Date | | + +--------+ + | Hospital Follow-up | 08/25/ | | | | 2017 | | + +--------+ + Encounter Details +--------+ + + + + | Date | Type | Department | Care Team | Description | +--------+ + + + + | 08/25/ | Telephone | [facility] | Riky Rodriguez | Hospital Follow-up | | 2017 | | Internal Medicine | MD [address] | | | | [facility] [address] [facility] | | | | | [address] [place], [place] | [place] [address] | | | | | [address] | [phone] | | | | | [phone] | | | +--------+ + + + [...] + + documented as of this encounter Miscellaneous Notes Telephone Encounter - Jordon Angeles RN - 08/25/2017 10:58 AM PDTCalled and spoke t o patient whom states they got home safely and had no new medications to waste picker. Patient co nfirmed their PCP appointment on 09/05/17. No questions or concerns at this time. Confirmed that DC Summary Sent to PCP. Jordon Angeles documented in t his encounter Plan of Treatment +--------+---------+ + + + | Date | Type | Specialty | Care Team | Description | +--------+---------+ + + + | 01/15/ | Office | Physical Medicine | Dick Maria, | | | 2019 | Visit | and Rehabilitation | MD Gisele Ram | | | | | | [place] | | | | | | [address] | | | | | | | | +--------+---------+ + + + documented as of this encounter Visit Diagnoses Not on filedocumented in this encounter"
--- OUTSIDE RECORDS SUMMARY | ~2019-12-20 | XMS | Encounter Summary ---
Demographics + + + | Address | [address] | | | [place] [address] | + + + | Home Phone | | + + + | Preferred Language | Unknown | + + + | Marital Status | | + + + | Hindu Affiliation | 1028 | + + + [...] | [place] | | | | | [address] | | + + + + + | Mila Desai | ECON | Unknown | | + + + + + Care Team Providers + +------+ + | Care Information Systems Planner Name | Role | Phone | + [...] | | [facility] [address] | | | | | [address] [place] | [place] [address] | | | | | [place] [address] | | | | | | [phone] | | | +--------+ + + + [...] [place] | | | | | | [address] | | | | | | | [...]
--- OUTSIDE RECORDS SUMMARY | ~2019-12-20 | XMS | Encounter Summary ---
Demographics + + + | Address | [address] | | | [place] [address] | + + + | Home Phone [...] | [place] | | | | | [address] | | + + + + + | Mila Desai | ECON | Unknown | | + + + + + Care Team Providers + +------+ + | Care Broadcasting Equipment Mechanic Name | Role | Phone | + [...] | | | [address] [place] | [place] [address] | | | | | [place] [address] | | | | | | [phone] | | | +--------+ + + + [...] [place] | | | | | | [address] | | | | | | | | +--------+---------+ + + + documented as of this encounter Procedures + +--------+ + + + | Procedure Name | Priori | Date/Time | Associated Diagnosis | Comments | | | ty | | | | + +--------+ + + + | XR CHEST 1 VIEW | Routin | 08/03/2017 | | Results for this | | | e | 8:10 PM | | procedure are in the | | | | PDT | | results section. | + +--------+ + + + documented in this encounter Results XR Chest 1 Vw (08/03/2017 8:10 PM PDT) + + | Specimen | [...]
--- OUTSIDE RECORDS SUMMARY | ~2019-12-20 | XMS | Encounter Summary ---
Demographics + + + | Address | [address] | | | [place] [address] | + + + | Home Phone [...] | [place] | | | | | [address] | | + + + + + | Mila Desai | ECON | Unknown | | + + + + + Care Team Providers + +------+ + | Care Ski Patrol Officer Name | Role | Phone | + +------+ + | Bry Vaughn DO | PCP | | + +------+ + Encounter Details +--------+ + + + + | Date | Type | Department | Care Team | Description | +--------+ + + + + | 12/30/ | Hospital | [facility] | Tyree Joyce, | COPD, severe (HCC) | | 2018 | Encounter | [facility] | MD [address] | | | | | [address] | [place], [place] | | | | | [place], | [address] | | | | | [place] [address] | | | | | | [phone] | | | +--------+ + + + [...] + + +---------+ + + | albuterol 2.5 mg/3 | Take 3 mLs by | 360 | 1 | 10/01/20 | | | mL nebulizer | nebulization every 4 | vial | | 18 | | | solution | hours as needed. [...] + + + +---------+ + + | ipratropium | Take 2.5 mLs by | 225 mL | 0 | 10/01/20 | | | (ATROVENT) 500 | nebulization every 4 | | | 18 | | | mcg/2.5 mL nebulizer | hours as needed. | | | | | | solution [...] + + + +---------+ + + | RA ASPIRIN | Take 81 mg by mouth | | 0 | 11/27/19 | | | CHILDRENS 81 MG | Daily. | | | 18 | | | chewable tablet | | | | | | + + + +---------+ + + | AFLURIA | inject 0.5 | | 0 | 10/29/19 | | | QUADRIVALENT 0.5 ML | milliliter | | | 18 | 9 | | vaccine injection | intramuscularly | | | | | | (syringe) | | | | | | + + + +---------+ + + | | Inhale 2 puffs into | 1 | 11 | 12/31/19 | | | mometasone-formotero | the lungs Twice | Inhaler | | 18 | 8 | | l (DULERA) 100-5 | Daily. | | | | | | mcg/puff | | | | | | | inhalerIndications: | | | | | | | COPD, moderate (HCC) | | | | | | + + + +---------+ + + | Multiple | Take 1 tablet by | | 0 | | | | Vitamins-Minerals | mouth Daily. | | | | 9 | | (SENIOR MULTIVITAMIN | | | | | | | PLUS) TABS | | | | | | + + + +---------+ + + | SHINGRIX 50 | inject 0.5 | | 0 | 10/29/19 | | | MCG/0.5ML vaccine | milliliter | | | 18 | 9 | | injection | intramuscularly | | | | | + + + +---------+ + + documented as of this encounter Procedure Notes Tyree Joyce MD - 12/30/2017 2:22 PM PDTAssociated Order(s): PFT PULMONARY FUNCTION TESTING ORDERSProcedure(s): PFT PULMONARY FUNCTION TESTING ORDERSPre-Procedure Diagnose(s): COPD, severe (HCC) PULMONARY FUNCTION TESTING SPIROMETRY: The prebronchodilator FVC was 2.54 L or 81 % of predicted. The prebronchodilato r FEV1 was 1.62 L or 67 % of predicted. FEV1/FVC ratio was 64 %. Following inhalation of al buterol no appreciable improvement of the patient's FEV1 was noted. LUNG VOLUMES: The total lung capacity was 4.98 L or 96 % of predicted. The residual volume was 2.35 L or 111 % of predicted. RV/TLC ratio was 1:15 % of predicted. DIFFUSION CAPACITY: The diffusion capacity was 16.5 mL/mmHg per minute or 67 % of predicted . IMPRESSION: Spirometry is consistent with moderate obstructive physiology. Lung volume test ing is consistent with normal physiology. Diffusion capacity is mildly reduced and is not co rrected for measured hemoglobin. Compared to pulmonary function tests performed at outside facility dated 06/06/17 the prebro nchodilator FEV1 appears to have improved by an apparent 84%. Test performed: 12/30/17 Electronically signed by: Tyree Joyce MD 12/30/2017 [facility] MD at 2:24 PM PDTdocumented in this encounter Plan of Treatment +--------+---------+ + + + | Date | Type | Specialty | Care Team | Description | +--------+---------+ + + + | 01/15/ | Office | Physical Medicine | Dick Maria, | | | 2019 | Visit | and Rehabilitation | [address] | | | | | | [place] | | | | | | [phone] | | | | | | | | +--------+---------+ + + + documented as of this encounter Procedures + +--------+ + + + | Procedure Name | Priori | Date/Time | Associated Diagnosis | Comments | | | ty | | | | + +--------+ + + + | PFT PULMONARY | [facility] | 12/30/2017 | COPD, severe (HCC) | Results for this | | FUNCTION TESTING | | 2:22 PM | | procedure are in the | | ORDERS | | PDT | | results section. | + +--------+ + + + | PFT PULMONARY | [facility] | 12/30/2017 | COPD, severe (HCC) | Results for this | | FUNCTION TESTING | | 2:22 PM | | procedure are in the | | ORDERS | | PDT | | results section. | + +--------+ + + + | PFT PULMONARY | [facility] | 12/30/2017 | COPD, severe (HCC) | Results for this | | FUNCTION TESTING | | 2:22 PM | | procedure are in the | | ORDERS | | PDT | | results section. | + +--------+ + + + | PFT PULMONARY | [facility] | 12/30/2017 | COPD, severe (HCC) | Results for this | | FUNCTION TESTING | | 2:22 PM | | procedure are in the | | ORDERS | | PDT | | results section. | + +--------+ + + + documented in this encounter Results Pulmonary function test full PFT; home oxygen evaluation (12/30/2017 2:22 PM PDT) + + + | Narrative | Performed At | + + + | Tyree | | | MD [facility] 12/30/2017 14:24 PULMONARY FUNCTION TESTING | | | SPIROMETRY: The prebronchodilator FVC was 2.54 L or 81 % of predicted. | | | The prebronchodilator FEV1 was 1.62 L or 67 % of predicted. FEV1/FVC | | | ratio was 64 %. Following inhalation of albuterol no appreciable | | | improvement of the patient's FEV1 was noted. LUNG VOLUMES: The total | | | lung capacity was 4.98 L or 96 % of predicted. The residual volume was | | | 2.35 L or 111 % of predicted. RV/TLC ratio was 1:15 % of predicted. | | | DIFFUSION CAPACITY: The diffusion capacity was 16.5 mL/mmHg per minute | | | or 67 % of predicted. IMPRESSION: Spirometry is consistent with | | | moderate obstructive physiology. Lung volume testing is consistent | | | with normal physiology. Diffusion capacity is mildly reduced and is | | | not corrected for measured hemoglobin. Compared to pulmonary function | | | tests performed at outside facility dated 06/06/17 the | | | prebronchodilator FEV1 appears to have improved by an apparent 84%. | | | Test performed: 12/30/17Electronically signed by: Tyree Crisostomo | | | MD [facility] 12/30/2017 14:22[facility] | | | | | |IMPRESSION: Spirometry is consistent with moderate obstructive | | |physiology. Lung volume testing is consistent with normal | | |physiology. Diffusion capacity is mildly reduced and is not | | |corrected for measured hemoglobin. | | | | | |Compared to pulmonary function tests performed at outside | | |facility dated 06/06/17 the prebronchodilator FEV1 appears to have | | |improved by an apparent 84%. | | | | | |Test performed: 12/30/17 | | |Electronically signed by: Tyree Joyce MD 12/30/2017 | | |14:22 | | |[facility] | | + + + documented in this encounter Visit Diagnoses + + | Diagnosis | + + | COPD, severe (HCC) Chronic airway obstruction, not elsewhere classified | + + documented in this encounter Administered Medications + +--------+ +--------+------+------+ | Medication Order | MAR | Action | Dose | Rate | Site | | | Action | Date | | | | + +--------+ +--------+------+------+ | albuterol 2.5 mg/3 mL nebulizer | Given | 12/31/19 | 2.5 mg | | | | solution 2.5 mg 2.5 mg, | | 18 1:28 | | | | | Nebulization, RT Once, Fri | | PM PDT | | | | | 12/30/17 at 1345, For 1 dose, RT | | | | | | | will administer., | | | | | | + +--------+ +--------+------+------+ +---+---+ | | | +---+---+ documented in this encounter"
--- OUTSIDE RECORDS SUMMARY | ~2019-12-20 | XMS | Encounter Summary ---
Demographics + + + | Address | [address] | | | [place] [address] | + + + | Home Phone | | + + + | Preferred Language | Unknown | + + + | Marital Status | | + + + | Adventism Affiliation | [id number] | + + + | Race | White | + + + | Ethnic Group | Not or | + + + Author + + + | Author | [facility] | | | and [place] | + + + | Organization | [facility] | | | and [place] | + + + | Address | Unknown | + + + | Phone | Unavailable | + + + Support + + + + + | Name | Relationship | Address | Phone | + + + + + | Joseluis Desai | ECON | [place] | | | | | [address] | | + + + + + | Mila Desai | ECON | Unknown | | + + + + + Care Team Providers + +------+ + | Care Community Services Manager Name | Role | Phone | + +------+ + | Bry Vaughn DO | PCP | | + +------+ + Reason for Visit +--------+--------+ + | Reason | Onset | Comments | | | Date | | +--------+--------+ + | Other | 08/31/ | | | | 2018 | | +--------+--------+ + Encounter Details +--------+ + + + + | Date | Type | Department | Care Team | Description | +--------+ + + + + | 08/31/ | Telephone | [facility] | Shaji Wilson | Other | | 2018 | | SURGERY [address] | MD Alessandro, FACS [address] | | [address] [place], [place] | [facility] | | | | | [address] | [place] [address] | | | | | [phone] | [phone] | | | | | | | [...] this encounter Miscellaneous Notes Telephone Encounter - Niki Vargas - 08/31/2017 8:43 AM Bra[place] called this morning to ask why she cannot see Dr. Wilson next week. After speaking with RN Harish, he explained that Amy had surgery with a provider other than and we cannot schedule her to see Dr. Wilson until he has had a chance to review her case and let us know whether or not he is comf ortable seeing her. I relayed the message and apologized for the inconvenience. I told her o nce has had a chance to review her chart that we would call her back and let her kn ow if we could see her. She understood and thanked me. documented in this encounter Plan of Treatment [...] [place] | | | | | | [address] | | | | | | | | +--------+---------+ + + + documented as of this encounter Visit Diagnoses Not on filedocumented in this encounter"
--- OUTSIDE RECORDS SUMMARY | ~2019-12-20 | XMS | Encounter Summary ---
Demographics + + + | Address | [address] | | | [place] [address] | + + + | Home Phone | | + + + | Preferred Language | Unknown | + + + | Marital Status | | + + + | Taoism Affiliation | [id number] | + + + | Race | White | + + + | Ethnic Group | Not or | + + + Author + + + | Author | [facility] | | | and [place] | + + + | Organization | [facility] | | | and [place] | + + + | Address | Unknown | + + + | Phone | Unavailable | + + + Support + + + + + | Name | Relationship | Address | Phone | + + + + + | Joseluis Desai | ECON | [place] | | | | | [phone] | | + + + + + | Mila Desai | ECON | Unknown | | + + + + + Care Team Providers + +------+ + | Care Emergency Medical Service Coordinator Name | Role | Phone | [...] | Specialty | Vascular | Diagnoses | [place], | Field, | | | Services | Surgery | | Riky | Shaji Francois, | | | Required | | 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 | , 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[address] | | | | | 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[address] | | | | | visceral | [address] | [place], | | | | | artery (HCC) | [place], [place] | [place] [address] | | | | | | [address] | Phone: | | | | | | Phone: | [phone] | | | | | | [phone] | Fax: | | | | | | Fax: | [phone] | | | | | | [phone] | | +--------+ + + + + [...] + + | 08/17/ | Hospital | [facility] | Faby Rodriguez MD | 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 | | | | SURGICAL [address] | [place] [address] | (HCC); Anemia, | | 08/23/ | | Ave [place] | [phone] | unspecified type; | | 2018 | | [phone] | | Chronic obstructive | | | | [phone] | Vikram James, | pulmonary disease, | | | | | MD [address] | unspecified COPD | | | | | [place], [place] | type ([facility]); | | | | | [address] | Essential | | | | | | hypertension; | | | | | Nadia Sutton MD | Hemorrhagic shock | | | | | [address] | ([facility]); Acute | | | | | [place] [address] | posthemorrhagic | | | | | [phone] | anemia; Acute | | | | | | respiratory failure | | | | | Riky Rodriguez | with hypoxia and | | | | | MD Jarocho [address] | hypercapnia ([facility]) | | | | | [address] | | | | | | [place] [address] | | | | | | [phone] | | | | | | | [...] Follow Up Appointments: Bry Vaughn DO [address] [place] [id number] Schedule an appointment as soon as possible for a visit Discharge Disposition: Home Consultants This Admission: Vascular surgery, General Surgery, Interventional Radiology Hospital Course: Amy Coleman is a 62-year-old female with past medical history significant for COPD, CAD s/p NSTEMI ( no PCI), who was transferred to [facility] for ICU care from [place] on 08/17 ere she was intubated for [...] going home to continue duo nebs at [facility]. She is being discharged today in good [...] this chart may have been created with [email or web address] voice recognition software. Occasi onal wrong-word or [...] urine. Belly (abdominal) pain Date Last Reviewed: 09/12/201519994168-2531 [employer]. [address] [place] [address], [place] [address]. All righ ts reserved. This information is [...] about recovering at home. Date Last Reviewed: 02/12/201619991196-3093 [employer]. [address] [place], [place] [id number]. All [facility] ts reserved. This information is not intended as a substitute for professional medical care. Always follow your healthcare professional's instructions. [facility] Patient Belongings Amy Coleman 1955 Patient Signature: Clinician/Wildlife Removal Specialist Signature: Discharge Instructions: After Your Surgery You ve just had surgery. During surgery, you were given medicine called anesthesia to key moore you relaxed and free of pain. After [...] interact with your prescription medicines or other oaat-lvz-awvgvrf (OTC) medicines. Some prescription medicines have acetaminophen and other ingredients.Using both prescription a nd OTC acetaminophenfor paincan cause you to overdose. Readthe labels on your OTC medi cineswith care. This will help youto clearly know [...] of taking these medicines. Date Last Reviewed: 02/12/201619994413-2471 [employer]. [address] [place] [address]. All righ ts reserved. This information is [...] of this encounter Progress Notes Selin Siegel - 08/22/2017 2:55 PM PDTSocial Work: Pt is a 62 year old female from [place], [place] with [facility] Medicaid insurance. SW received referral for d/c [...] it is needed. Elect ronically signed by Selin Siegel at 08/22/2017 2:55 PM PDTCope, Riky Avendaño MD - 2017 8:33 AM PDT Patient: Amy Coleman Date of : 1955 Admit Date: 08/17/2017 Date of Service: 08/22/2017 PCP: Bry Vaughn DO Hospital Day: Hospital Day: 6 Hospital Course: Amy Coleman is a 62-year-old female with past medical history significant for COPD, CAD s/p NSTEMI ( no PCI), who was transferred to [facility] for ICU care from [place] on 08/17 wh ere she was intubated [...] Signs 08/20 699 - 08/21 0659 08/21 699 - 08/22 0659 08/22 699 - 08/22 0833 Most Rec ent Temp (C) 35.9 - 36.7 36.2 - 36.9 36.2 (97.1) Pulse 67 - 95 74 - 93 82 Resp 16 - 20 18 BP 101/77 - [...] - Single Lumen 05/08/17 0130 Left Forearm ilfx-iwt-tyjgww catheter syst em 20 gauge 106 days [...] this chart may have been created with [email or web address] voice recognition software. Occasi onal wrong-word or sound-alike substitutions may have occurred due to the inherent lobo itations of voice recognition software. Please read the chart carefully and recognize, using context, where these substitutions have occurred Krzysztof Ordaz MD - 08/21/2017 5:47 PM PDTFormatting of this note might be different f rom the original. [facility] Surgery Team Hospital Day: 5 DATE/TIME: 08/21/2017 [...] Signed by: Krzysztof Montaño MD, 08/21/2017 17:47 [facility] ope, Riky Avendaño MD - 08/21/2017 9:49 AM PDT Patient: Amy Coleman Date of : 1955 Admit Date: 08/17/2017 Date of Service: 08/21/2017 PCP: Bry Vaughn DO Hospital Day: Hospital Day: 5 Hospital Course: Amy Coleman is a 62-year-old female with past medical history significant for COPD, CAD s/p NSTEMI ( no PCI), who was transferred to [facility] for ICU care from [place] on 08/17 wh ere she was intubated [...] Signs 08/19 699 - 08/20 0659 08/20 699 - 08/21 0659 08/21 699 - 08/21 0950 Most Rec ent Temp [...] - Single Lumen 05/08/17 0130 Left Forearm dkiu-qpa-dpnskq catheter syst em 20 gauge 105 days [...] Hold Result Value Ref Range Product Code G8725J29 UNIT # [id number] UNIT ABO O UNIT RH POS Unit Status IS Blood Product Expiration Date and Time Product Blood Type Barcode 5100 Product Code V0491O54 UNIT # [id number] UNIT ABO O UNIT RH POS Unit Status RE Blood Product Expiration Date and Time Product Blood Type Barcode 5100 Hemoglobin and [...] this chart may have been created with [email or web address] voice recognition software. Occasi onal wrong-word or sound-alike substitutions may have occurred due to the inherent lobo itations of voice recognition software. Please read the chart carefully and recognize, using context, where these substitutions have occurred Krzysztof Ordaz MD - 08/20/2017 12:23 PM PDTFormatting of this note might be different f rom the original. [facility] General Surgery Team Hospital Day: 4 DATE/TIME: [...] Signed by: Krzysztof Montaño MD, 08/20/2017 12:23 [facility] Nadia Blount MD - 08/20/2017 10:02 AM PDT Patient: Amy Coleman Date of : 1955 Admit Date: 08/17/2017 Date of Service: 08/20/2017 PCP: Bry Vaughn DO Hospital Day: Hospital Day: 4 Hospital Course: Amy Coleman is a 62-year-old female with past medical history significant for COPD, CAD s/p NSTEMI ( no PCI), who was transferred to [facility] for ICU care from [place] on 08/17 wh ere she was intubated [...] and suicidal ideas. Objective: Vital Signs 08/18 0700 - 08/19 0659 08/19 07 - 08/20 0659 08/20 07 - 08/20 1021 Most Rec ent Temp [...] - Single Lumen 05/08/17 0130 Left Forearm vmyn-ysv-zqfrdx catheter syst em 20 gauge 104 days [...] this chart may have been created with [email or web address] voice recognition software. Occasi onal wrong-word or sound-alike substitutions may have occurred due to the inherent lobo itations of voice recognition software. Please read the chart carefully and recognize, using context, where these substitutions have occurred Vikram Jesus MD - 08/20/2017 5:28 AM PDT Critical Care Progress Note [facility] Date of Service: 08/20/2017 Admit Date: [...] NSTEMI (no PCI, mild disease) presented to [facility] [place] on 08/16 with shortness of breath and [...] NSTEMI (no PCI, mild disease) presented to [facility] [place] on 08/16 with shortness of breath and [...] Today: Yes Extubated Bowel Function: Last BM: DRAWING IN HAND. Scheduled bowel meds started. Indwelling Bladder Catheter [...] LABORATORY: I personally reviewed recent labs in [facility] and ordered appropriate follow-up domonique dies. [...] this interval not displayed. Recent Labs Lab 08/20/1741308/19/17 1720 08/19/17 0615 08/19/17 0306 08/18/17 0523 [...] this interval not displayed. Recent Labs Lab 08/20/1741308/19/17 0822 08/19/17 0615 LACTATE 0.5 1.5 2.3* Recent Labs Lab 08/20/1741308/17/17 2241 INR 1.1 1.3* No results for input(s): TROPONIN, BNP in the last 168 hours. Invalid input(s): CKTOTAL Lab Results Component Value Date PHART 7.36 (L) 08/19/2017 [id number] 44 (H) 08/19/2017 PO2ART 91 (H) 08/19/2017 [id number] 13.3 (L) 08/19/2017 LWH7EHO 25.2 08/19/2017 BEART -0.2 08/19/2017 CARBOXYHGB 1.0 [...] this chart may have been created with [email or web address] voice recognition software. Occasi onal wrong-word or sound-alike substitutions may have occurred due to the inherent lobo itations of voice recognition software. Please read the chart carefully and recognize, using context, where these substitutions have occurred. Krzysztof Ordaz MD - 08/19/2017 2:04 PM PDT [facility] Surgery Team Hospital Day: 3 DATE/TIME: [...] Signed by: Krzysztof Montaño MD, 08/19/2017 14:05 [facility] arocho Hunt RRT - 08/19/2017 10:10 AM PDT 08/19/17 1009 Respiratory Assessment Interventions ~ Patient Assessment ~ Multi-disciplinary Rounds Continue current care. Q4 DuonebsElectronically signed by Jarocho Hunt V, COMMERCIAL PHOTOGRAPHER at 2017 10:10 AM PDTDoVolodymyr bear RRT - 08/19/2017 9:19 AM PDTPt extubated [...] Coleman DATE OF : 1955 MED RECORD: [id number] ASSESSMENT/PLAN PROCEDURE: mesenteric angiogram 08/18 ASSESSMENT: 1. [...] mcg/hr (08/19/17 0700) norepinephrine 4 mcg/min (08/19/17 0700) propofol infusion Stopped (08/19/17 0600) vasopressin (PITRESSIN) [...] IVPB RECENT SELECT LAB: Recent Labs Lab 08/19/1761408/19/17 03008/18/17 2328 08/18/17 0523 08/17/17 2241 WBC -- [...] this interval not displayed. Recent Labs Lab 08/19/1761408/19/1730508/18/17 1156 08/18/17 0523 NA -- 144 -- [...] 2019 PHART 7.25* 7.34* PO2ART 58* 139* EKG4JPP 53* 39 BEART -4.1* -4.5* EXAM: General [...] of r ight gastric yesterday by Dr aH. Now extubated; off pressors; with essentially stable [...] 6:50 AM PDT Critical Care Progress Note [facility] Date of Service: 08/19/2017 Admit Date: [...] NSTEMI (no PCI, mild disease) presented to [facility] [place] on 08/16 with shortness of breath and [...] NSTEMI (no PCI, mild disease) presented to [facility] [place] on 08/16 with shortness of breath and [...] Today: Yes Extubated Bowel Function: Last BM: DRAWING IN HAND. Scheduled bowel meds started. Indwelling Bladder Catheter [...] LABORATORY: I personally reviewed recent labs in [facility] and ordered appropriate follow-up domonique dies. Recent Labs Lab 08/19/17 03008/18/17 2328 08/18/17201808/18/17 0523 08/18/17 0209 WBC -- [...] Component Value Date PHART 7.34 (L) 08/18/2017 [id number] 39 08/18/2017 PO2ART 139 (H) 08/18/2017 [id number] 11.2 (L) 08/18/2017 DMX8XDI 21.2 (L) 08/18/2017 BEART -4.5 (L) 08/18/2017 [...] this chart may have been created with [email or web address] voice recognition software. Occasi onal wrong-word or [...] 6:28 AM PDT Critical Care Progress Note [facility] Date of Service: 08/18/2017 Admit Date: [...] sease only, no PCI) presented to OSH ([place], [place]) initially w/ c/o SOB and was intubated for acute on chronic respiratory failure (ABG prior to intubation: 7.0/98/217/26). Pt then developed hypotension/HD instability for which she required 2 pressors. hgb fell from 15-- >4 and pt rc'd 6u PRBCs, 2uFFP, 1u PLT, 5L NS. CT abdomen showed RP hematoma and pt was tra nsferred to [facility] for further eval of this. 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 Gen surgery consulted as w ell as vascular to determine best approach to vascular issues given high potential for re bl eed. Summary of Significant Events: 08/17: Admitted to [facility]. Intubated. To IR 08/18: Awake, alert. NE [...] l plan set Bowel Function: Last BM: DRAWING IN HAND. PRN bowel meds available. Indwelling Bladder Catheter Indication: Vasopressors for hemodynamic instability Subjective 24hr interval history: Transferred from [place], [place] to [facility] Afebrile Rc'd 6u PRBCs, 2u FFP, 1u [...] LABORATORY: I personally reviewed recent labs in [facility] and ordered appropriate follow-up domonique dies. Recent Labs Lab 08/18/17 0508/18/1752208/18/179 08/17/17224008/17/17 2235 WBC -- 19.6* 19.0* -- [...] Results Component Value Date PHART 7.39 08/18/2017 FLL3GKD 32 08/18/2017 PO2ART 108 (H) 08/18/2017 [id number] 16.2 08/18/2017 RNY9ZXN 19.4 (L) 08/18/2017 BEART -5.6 (L) 08/18/2017 [...] this chart may have been created with [email or web address] voice recognition software. Occasi onal wrong-word or sound-alike substitutions may have occurred due to the inherent lobo itations of voice recognition software. Please read the chart carefully and recognize, using context, where these substitutions have occurred. Associated attestation - Vikram James MD - 08/18/2017 8:56 AM PDT Physician Attestation Note [facility] Date of Service: 08/18/2017 Reason for critical care: Hemorrhagic shock secondary to intra-abdominal bleeding I reviewed and discussed the patient history, assessment and plan with the KOLE, during pers onal discussion and/or multi-disciplinary rounds. Acute issues or additions to plan of care: 62 year old lady with PMH of COPD, CAD s/p NSTEMI (no PCI, mild disease) presented to [facility], [place] on 08/16 with shortness of breath and [...] this chart may have been created with [email or web address] voice recognition software. Occasi onal wrong-word or sound-alike substitutions may have occurred due to the inherent lobo itations of voice recognition software. Please read the chart carefully and recognize, using context, where these substitutions have occurred.Ever Chicas, ENRIQUE - 08/18/2017 1:10 AM PDTBack from interventional radiology, titrated off vasoactive medications during IR. No ac tive bleeding found. Faby Garcia MD - 08/17/2017 11:54 PM PDTFormatting of this note might be different from the o riginal. . Critical Care-Care Progress Note Update [facility] Date of Service: 08/17/2017 Admit Date: [...] called and discussed plans with son, Joseluis ([phone]). He expre ssed understanding and wanted to [...] this chart may have been created with [email or web address] voice recognition software. Occasi onal wrong-word or [...] IR consult ed. documented in this encounter H&P Notes Diana Boyle MD - 08/17/2017 7:14 PM PDT Critical Care Admission History and Physical [facility] Intensive Care Unit Pt. Name: Amy Coleman Age: 62 y.o. : 1955 Code Status: TBD - Full Code by default Date of Admission: 08/17/2017 Primary Care Physician: Bry Vaughn DO Attending: Faby Rodriguez MD Subjective Chief Concern: Abdominal bleed History of Present Illness: 62 yo F patient with PMH of COPD and previous OH was transferred from [facility] to [facility] ICU for further care of shock and management of abdominal bleed. Mike collier this morning presented herself to the ER at the OSH where she c/o SOB., quickly decompensa calli requiring intubation and ventilation. Her ABG before intubation was 7/217/26 which im proved after ventilation. Patient soon after had hemodynamic instability requiring 2 pressor s. Her Hb fell from 15 to 4 s/p 6 PRBC, 2 FFP, 1plt and [address] abdomen showed evidenc e of hemorrhage in the abdomen and hematoma. Patient was seen in ICU. She was responsive, on Levophed and Vasopressin. UOP in the last 12 hours 700cc. Surgeon Pedro HU was seen at bedside who recommended IR to see patient for a possible coili ng. Review of Systems: Not able to elicit as patient is intubated Past Medical History: No past medical history on file. Past Surgical History: Past Surgical History: Procedure Laterality Date CARDIAC CATHERIZATION N/A 05/09/2017 Procedure: CV LHC; Surgeon: Johnny Luther MD; Location: [facility] CV LAB Social History: Social History Social History Marital status: Spouse name: N/A Number of children: N/A Years of education: N/A Social History Main Topics Smoking status: Current [...] Social History Narrative No narrative on file Family History: No family history on file. Allergies: Allergies Allergen Reactions Amoxicillin Cephalexin Hydroxyzine Hcl Penicillins Ranitidine Hcl Home medications: Prescriptions Prior to Admission Medication Sig Dispense Refill albuterol (VENTOLIN HFA) 90 mcg/puff inhaler Inhale 2 puffs into the lungs every 4 hour s as needed. albuterol-ipratropium (DUONEB) 2.5-0.5 mg/3 mL SOLN Take 3 mLs by nebulization every 6 hours. Dx: COPD Acute hypoxic respiratory failure 360 mL 0 aspirin 81 mg chewable tablet Take 1 tablet by mouth Daily. 30 tablet 0 atorvaSTATin (LIPITOR) 40 mg tablet Take 40 mg by mouth nightly. buPROPion (WELLBUTRIN SR) 150 mg 12 hr tablet Take 150 mg by mouth 2 times daily. carboxymethylcellulose (THERATEARS) 0.25% ophthalmic solution Place 1 drop into both ey es every hour as needed for Dry Eyes. lisinopril (PRINIVIL, ZESTRIL) 10 mg tablet Take 1 tablet by mouth Daily. 30 tablet 0 Multiple Vitamins-Minerals (SENIOR MULTIVITAMIN PLUS) TABS Take 1 tablet by mouth Daily . nitroglycerin (NITROSTAT) 0.[address] 0.4 mg under the tongue every 5 minute s as needed for Chest pain. oxybutynin (DITROPAN) 5 mg tablet Take 5 mg by mouth 2 times daily. pantoprazole (PROTONIX) 40 mg tablet Take 1 tablet by mouth every morning (before break fast). 30 tablet 0 predniSONE (DELTASONE) 20 mg tablet Take 40 mg (2 tabs) by mouth daily for 3 days, then Take 30 mg (1.5 tabs) by mouth daily for 3 days, then Take 20 mg (1 tab) by mouth daily for 3 days, then Take 10 mg (0.5 tab) by mouth daily for 3 days, then stop 15 tablet 0 propranolol (INDERAL) 80 mg tablet Take 80 mg by mouth Daily. For tremors umeclidinium (INCRUSE ELLIPTA) 62.5 mcg/puff inhaler Inhale 1 puff into the lungs Daily . Objective Vitals Current Average / Min / Max Temp 37.2 C (99 F) Temp Min: 36 C (96.8 F) Max: 37.2 C (99 F) BP 112/80 BP Min: 94/50 Max: 113/84 HR 100 Pulse Av.6 Min: 99 Max: 140 RR 18 Resp Av.2 Min: 15 Max: 22 Sats 100 % SpO2 Min: 100 % Max: 100 % Weight Admit: Cardiac Rhythm: Sinus BMI: There is no height or weight on file to calculate BMI. Oxygen Requirements: SpO2: 100 % on ventilator Vent settings: Ventilation Mode: SIMV (08/17 2204) Ventilation Method (select): -- Rate Set: 18 (08/17 2204) Pressure Control Set: 0 (08/17 2204) Tidal Volume Returned (L): 0.41 (08/17 2204) Minute Ventilation Total (L/min): 8.8 (08/17 2204) Oxygen Concentration (%): 60 (08/17 2204) PEEP: 8 (08/17 2204) CPAP: -- I-Time Set (Sec): 0 (08/17 2204) I:E : 1:3.90 (08/17 2204) Peak Airway Pressure: 23 (06/06 2205) Physical Exam: General: responses to command, squeezes finger Opth: PERRL ENT: intubated Resp: breath sounds heard bilaterally Cardiac: S1 S2 heard GI: diffuse tenderness of abdomen especially on LUQ MSK: no deformity Vascular: intact distal pulses Skin: pale Neurologic: not able to assess Lab Data: Recent Labs Lab 08/17/17223808/17/172234 WBC -- 18.5* HGB 11.9 11.8 HCT 36.6 33.6* Recent Labs Lab 08/17/17223808/17/172234 NA -- 139 K 3.7 3.9 CL 109 109 CO2 -- 19* BUN -- 12 CREA -- 0.64 CALCIUM -- 6.9* ALT -- 290* AST -- 240* ALKPHOS -- 53 BILITOT -- 0.4 ALBUMIN -- 3.3 Recent Labs Lab 08/17/172238 PHART 7.33* PO2ART 193* ZCM5AVZ 35 BEART -7.8* No results for input(s): TROPONIN in the last 168 hours. Invalid input(s): CKTOTAL, CKMBINDEX No results for input(s): LACTATE in the last 168 hours. Recent Labs Lab 08/17/17 2241 INR 1.3* No results for input(s): BNP in the last 168 hours. Imaging: I personally reviewed all relevant chart notes, imaging tests, laboratory results and melonie ngs. 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 I expect the post-hospital plan to be determined once additional information is obtained. Electronically signed by: Diana Boyle MD, 08/18/2017, 0:23 Associated attestation - Faby Rodriguez MD - 08/18/2017 5:15 AM PDTFormatting of this note m ight be different from the original. . Physician Attestation Note [facility] Date of Service: 08/18/2017 Reason for critical care: hemorrhagic shock, respiratory failure I reviewed and discussed the patient history, assessment and plan with the Resident Evette strong, during personal discussion and/or multi-disciplinary rounds. Acute issues or additions to plan of care: 62 yo female w h/o COPD, CAD (NSTEMI in setting of respiratory arrest last Apr, cardiac cat h with mild disease, no PCI) presented to [facility] late evening 08/16 with hypoxemic/hyp ercarbic respiratory failure. Intubated in ED, respiratory failure thought 2/2 COPD exacerba tion. Post intubation ABG 7.00/98/217. Started on Levaquin and steroids. Initial CMP, CBC un remarkable. Admitted to ICU Became acutely hypotensive early afternoon of 08/17. IVF, pressors started. Labs, CT ordere d. 15:00 CBC hgb 4.1, plts 137 CT PE protocol: No PE, RLL infiltrate. CT abd/pelvis: large low density mass in left abdomen [id number] with active extravasation is several locations, ?branches of celiac or SMA. MTP protocol initiated. Stabilized. OSH physicians discussed with critical care, surgery an d interventional radiology and pt transferred to [facility]. Upon arrival, she is relatively stable on 2 mcg/min levo and vaso 0.03, awake and comfortab le on ventilator. She has received 6u RBCs, 2u FFP, 1u plts, 5L LR prior to transfer. Abdo men is distended by soft, very tender to palpation. Discussed with IR and surgery- patient going to IR for mesenteric angiogram. # Shock: hemorrrhagic- hgb 15 -->4 with large abdominal hematoma. - interventional radiology - type and crossed. If hemodynamically unstable or signs of ongoing active hemorrhage jiménez sfuse RBC, FFP, plts 1:1:1 - checking for coagulatopathies, will correct if present. - keep maps~65 # Respiratory failure, mixed hypercarbic/hypoxemic: COPD exacerbation, RLL PNA (CAP) - cont lung protective ventilation - cont steroids, Levaquin - check procalcitonin # CAD: cardiac angio in Feb with 50% stenosis of circ, no PCI. Last Ef 40% - holding ASA in setting of bleed. Holding antihypertensives and statin while hypotensive - echo in am I personally spent 45 minutes in critical care time exclusive to this patient, and does not include time spent teaching or in procedures. Faby Rodriguez MD, 08/18/2017, 4:03 Portions of this chart may have been created with [email or web address] voice recognition software. Occasi onal wrong-word or sound-alike substitutions may have occurred due to the inherent lobo itations of voice recognition software. Please read the chart carefully and recognize, using context, where these substitutions have occurred. documented in this encounter Consult Notes Johnny Harmon MD - 08/18/2017 1:29 PM PDTFormatting of this note might be different fro m the original. 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 Ha and Dr. Power of interventional radiology and Dr. Minor of general surgery I think the best option is repeat mesenteric arteriogram and extensive coil embolization of the right gastric artery There are associated risks, including femoral artery injury and more importantly gastric is chemia. This was discussed with the [id number] and grandson, and also with the intubat ed but alert patient. However, I believe this risk to be less than the risk of exploratory laparotomy and nonselective obliteration of vessels and gastric artery. They desired to pro ceed HPI: Amy Coleman is a 62 y.o. female patient of Bry Vaughn DO seen today at the requ est of Dr Minor. She was transferred yesterday from [place] with an acute intra-abdominal bleed from a visceral artery pseudoaneurysm. She arrived intubated. She already had recei shola at least 6 units of PRBC. She underwent diagnostic mesenteric angiogram early this n . I reviewed that study extensively with interventional radiology, along with her CTA. No intervention was performed early this morning due to the associated risks. She has not yet undergone laparotomy. She is currently reasonably stable. She is on 2 pre ssors. She is intubated but alert. She has somewhat unusual anatomy. She has a visceral pseudoaneurysm, which appears to be a t the origin of the right gastric artery. The right gastric artery is not normal appearing, it appears to have an arteriopathy or arteriomegaly. 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 The splenic artery appears to fill by collaterals. As stated, the right gastric artery has a pr oximal pseudoaneurysm and distal likely arteriovenous malformations. Past Medical History She has a past medical history of COPD (chronic obstructive pulmonary disease) ([facility]) and NS STANLEY (non-ST elevated myocardial infarction) ([facility]). Allergies Allergen Reactions Amoxicillin Cephalexin Hydroxyzine Hcl Penicillins Ranitidine Hcl Medications: Patient Prescriptions Prior to Admission Medication Sig Dispense Refill albuterol (VENTOLIN HFA) 90 mcg/puff inhaler Inhale 2 puffs into the lungs every 4 hour s as needed. albuterol-ipratropium (DUONEB) 2.5-0.5 mg/3 mL SOLN Take 3 mLs by nebulization every 6 hours. Dx: COPD Acute hypoxic respiratory failure 360 mL 0 aspirin 81 mg chewable tablet Take 1 tablet by mouth Daily. 30 tablet 0 atorvaSTATin (LIPITOR) 40 mg tablet Take 40 mg by mouth nightly. buPROPion (WELLBUTRIN SR) 150 mg 12 hr tablet Take 150 mg by mouth 2 times daily. carboxymethylcellulose (THERATEARS) 0.25% ophthalmic solution Place 1 drop into both ey es Daily. lisinopril (PRINIVIL, ZESTRIL) 10 mg tablet Take 1 tablet by mouth Daily. 30 tablet 0 Multiple Vitamins-Minerals (SENIOR MULTIVITAMIN PLUS) TABS Take 1 tablet by mouth Daily . nitroglycerin (NITROSTAT) 0.[address] 0.4 mg under the tongue every 5 minute s as needed for Chest pain. oxybutynin (DITROPAN) 5 mg tablet Take 5 mg by mouth 2 times daily. pantoprazole (PROTONIX) 40 mg tablet Take 1 tablet by mouth every morning (before break fast). 30 tablet 0 propranolol (INDERAL) 80 mg tablet Take 80 mg by mouth Daily. For tremors umeclidinium (INCRUSE ELLIPTA) 62.5 mcg/puff inhaler Inhale 1 puff into the lungs Daily . No specialty comments available. Past Surgical History: Procedure Laterality Date CARDIAC CATHERIZATION N/A 05/09/2017 Procedure: CV LHC; Surgeon: Johnny Luther MD; Location: [facility] CV LAB Family History: Her family history is not on file. Social History: She reports that she has been smoking. She started smoking about 51 years ago. She has bee n smoking about 1.00 pack per day. She has never used smokeless tobacco. She reports that sh e drinks alcohol. She reports that she uses drugs, including Marijuana. Physical Exam Patient Vitals for the past 24 hrs: BP Temp Temp src Pulse Resp SpO2 Height Weight 08/18/17 1200 (!) 89/55 37.2 C (99 F) Bladder 123 21 97 % - - 08/18/17 1120 (!) 134/104 - - 127 21 99 % - - 08/18/17 1100 112/65 37.3 C (99.1 F) - 123 18 99 % - - 08/18/17 1045 145/87 37.2 C (99 F) - 123 18 99 % - - 08/18/17 1030 137/90 37.1 C (98.8 F) - 132 25 99 % - - 08/18/17 1015 132/88 37 C (98.6 F) - 126 19 97 % - - 08/18/17 1000 111/64 37 C (98.6 F) - 109 (!) 0 99 % - - 08/18/17 0915 99/62 37 C (98.6 F) - 115 14 100 % - - 08/18/17 0900 (!) 78/58 37 C (98.6 F) - 119 18 99 % - - 08/18/17 0800 109/65 37.3 C (99.1 F) Bladder 126 16 91 % - - 08/18/17 0753 - - - 127 17 (!) 87 % - - 08/18/17 0700 99/72 37.3 C (99.1 F) Bladder 120 18 99 % - - 08/18/17 0630 92/67 37.4 C (99.3 F) Bladder 110 18 97 % - - 08/18/17 0615 92/66 37.4 C (99.3 F) Bladder 110 18 97 % - - 08/18/17 0600 (!) 83/56 37.4 C (99.3 F) Bladder 111 18 98 % - - 08/18/17 0515 106/79 37.3 C (99.1 F) Bladder 115 18 96 % - - 08/18/17 0500 116/86 37.3 C (99.1 F) Bladder 127 24 98 % - - 08/18/17 0400 92/64 - - 106 18 98 % - - 08/18/17 0300 102/68 - - 108 18 98 % - - 08/18/17 0245 116/77 - - 110 19 98 % - - 08/18/17 0230 119/78 - - 107 18 98 % - - 08/18/17 0223 - - - - - - 1.651 m (5' 5") 69.2 kg (152 lb 8.9 oz) 08/18/17 0215 129/79 - - 108 18 98 % - - 08/18/17 0200 97/70 - - 98 18 98 % - - 08/18/17 0145 102/60 - - 104 18 97 % - - 08/18/17 0130 106/76 - - 106 18 98 % - - 08/18/17 0100 118/81 37.3 C (99.1 F) Bladder 103 18 99 % - - 08/18/17 0030 - - - - 18 - - - 08/18/17 0000 113/80 37.3 C (99.1 F) Bladder 105 18 99 % - - 08/17/17 2330 - - - 101 - - - - 08/17/17 2315 112/80 37.2 C (99 F) Bladder 100 18 100 % - - 08/17/17 2300 109/84 36.3 C (97.3 F) Bladder 99 18 100 % - - 08/17/17 2245 103/75 - - 99 18 100 % - - 08/17/17 2230 94/50 - - 140 15 100 % - - 08/17/17 2215 113/84 - - 105 22 100 % - - 08/17/17 2206 - 36 C (96.8 F) Temporal - - - - - General: she is intubated but alert and responds appropriately Psychiatric: see above Neurologic: 5/5 strength throughout upper and lower extremities, sensation intact to pain, touch, and proprioception Head and eyes: Normocephalic, without obvious abnormality, PERRL, EOM's intact Lungs: course breath sounds. Heart: Regular rate and rhythm, tachycardic Abdomen: upper abdominal tenderness to palpation. No prior incisions. Musculoskeletal: Moves all extremities well, no gross bone or joint deformities Extremities: Atraumatic, no cyanosis, clubbing, or edema Skin: Warm and dry. No rash. No wound. DATA REVIEW IMAGING: Recent Results (from the past 360 hour(s)) XR Chest AP Portable Narrative CHEST PORTABLE ONE VIEW CLINICAL INFORMATION: Respiratory failure. COMPARISON: IR PROCEDURE dated 08/18/2017 FINDINGS/IMPRESSION: 1. Endotracheal tube is positioned 17 mm above the luis alberto. A left-sided PICC line terminates in the distal SVC. Orogastric tube extends into the stomach. 2. Lung volumes are low. No focal consolidation or large pleural effusions. 3. Cardiomediastinal contours are normal. 4. No pneumothorax. Signed by: MD Maxx, Cris LABS: Recent Results (from the past 24 hour(s)) Type and Screen Result Value Ref Range ABO O Rh Type Positive Antibody Screen Negative CBC with Differential Result Value Ref Range WBC 18.5 (H) 3.8 - 11.0 K/uL RBC 3.83 3.70 - 5.10 M/uL Hgb 11.8 11.3 - 15.5 g/dL Hct 33.6 (L) 34.0 - 46.0 % MCV 87.6 80.0 - 100.0 fL MCH 30.7 27.0 - 34.0 pg MCHC 35.0 32.0 - 35.5 g/dL RDW-CV 14.8 11.0 - 15.5 % Platelet Count 172 150 - 400 K/uL MPV 7.9 7.5 - 11.2 fL % Neutrophils 83.4 (H) 40.0 - 75.0 % % Lymphocytes 8.9 (L) 15.0 - 48.0 % % Monocytes 7.6 0.0 - 12.0 % % Basophils 0.1 0.0 - 2.0 % Absolute Neutrophils 15.40 (H) 1.90 - 7.40 K/uL Absolute Lymphocytes 1.65 1.00 - 3.90 K/uL Absolute Monocytes 1.41 (H) 0.00 - 0.80 K/uL Absolute Basophils 0.02 0.00 - 0.10 K/uL Comprehensive Metabolic Panel Result Value Ref Range NA 139 135 - 145 mmol/L K 3.9 3.5 - 5.0 mmol/L CL 109 99 - 109 mmol/L CO2 19 (L) 21 - 28 mmol/L CALCIUM 6.9 (L) 8.5 - 10.2 mg/dL ANION GAP 11 5 - 16 mmol/L ALBUMIN 3.3 3.3 - 4.8 g/dL BUN 12 8 - 25 mg/dL Creatinine, Serum/Plasma 0.64 0.50 - 1.00 mg/dL GLUCOSE 193 (H) 65 - 99 mg/dL Total protein 5.2 (L) 6.1 - 7.8 g/dL ALK PHOS 53 35 - 115 U/L ALT 290 (H) 10 - 65 U/L AST 240 (H) 10 - 45 U/L Bilirubin Total 0.4 0.2 - 1.1 mg/dL Estimated GFR 95 >=90 mL/min/1.73m2 Magnesium Result Value Ref Range MG 2.2 1.7 - 2.4 mg/dL ABO Rh Result Value Ref Range ABO O Rh Type Positive Phosphorus Result Value Ref Range PHOSPHORUS 3.2 2.6 - 4.4 mg/dL Blood Gas, Arterial Result Value Ref Range pH, Arterial 7.33 (L) 7.37 - 7.47 pCO2, Arterial 35 32 - 43 mmHg pO2, Arterial 193 (H) 65 - 80 mmHg Base Excess, Arterial -7.8 (L) -2.5 - 2.5 mmol/L HCO3, Arterial 18.2 (L) 23.0 - 28.0 mmol/L FiO2 60 ROUTE simv Rate 18 VT 400 PEEP 8 Methemoglobin, Venous 1.0 0.4 - 1.5 % Comment Ox99% RR18 O2 Content, Arterial 16.9 15.0 - 23.0 % Hct 36.6 34.0 - 46.0 % Carboxyhemoglobin 0.7 (L) 1.0 - 3.0 % Hgb 11.9 11.3 - 15.5 g/dL O2SAT COOX ARTERIAL 98.0 92.0 - 99.0 % Glucose, Respiratory Result Value Ref Range GLUCOSE 196 (H) 65 - 99 mg/dL Potassium Whole Blood Result Value Ref Range K 3.7 3.5 - 5.0 mmol/L Chloride, Respiratory Result Value Ref Range CL 109 101 - 111 mmol/L Calcium, Ionized, Respiratory Result Value Ref Range Calcium, Ionized (mg/dL) 4.31 (L) 4.75 - 5.30 mg/dL Calcium, pH Normalized 4.14 (L) 4.75 - 5.30 mg/dL DIC Panel(P) Result Value Ref Range D-DIMER, QUANTITATIVE >4.00 (H) 0.00 - 0.49 ug/mL FEU FIBRINOGEN 258 211 - 419 mg/dL INR 1.3 (H) 0.9 - 1.1 Platelet Count 172 150 - 400 K/uL Protime 16.1 (H) 12.0 - 14.2 sec RBC MORPHOLOGY Normal Normal Thrombin Time, Patient 16.0 15.6 - 20.0 sec aPTT, Patient 24 (L) 26 - 36 sec MRSA NAAT Result Value Ref Range MRSA DNA Negative Specimen Source Nasal CBC no Differential Result Value Ref Range WBC 19.0 (H) 3.8 - 11.0 K/uL RBC 3.83 3.70 - 5.10 M/uL Hgb 11.6 11.3 - 15.5 g/dL Hct 33.4 (L) 34.0 - 46.0 % MCV 87.4 80.0 - 100.0 fL MCH 30.3 27.0 - 34.0 pg MCHC 34.7 32.0 - 35.5 g/dL RDW-CV 14.7 11.0 - 15.5 % Platelet Count 147 (L) 150 - 400 K/uL MPV 7.8 7.5 - 11.2 fL Urinalysis with Microscopic with Culture if Indicated Result Value Ref Range CULTURE SENT No COLOR Light Yellow CLARITY Clear GLUCOSE UA Negative Negative KETONES UA Negative Negative BILIRUBIN UA Negative Negative UROBILINOGEN UA <2.0 <2.0 mg/dL Specific [place] >1.060 (H) 1.001 - 1.030 PH UA 6.0 5.0 - 7.5 PROTEIN UA Negative Negative NITRITE UA Negative Negative BLOOD UA Small (A) Negative LEUKOCYTES ESTERASE UA Negative Negative SQUAMOUS EPITHELIAL UA Not Clinically Significant WBC UA 1 0 - 5 /hpf RBC UA 3 0 - 5 BACTERIA UA None Seen AMORPHOUS CRYSTALS None Present MUCUS UA Present URINE SOURCE [place] Sodium, Urine, Random Result Value Ref Range U SODIUM 18 0 - 259 mmol/L Basic Metabolic Panel Result Value Ref Range NA 140 135 - 145 mmol/L K 3.8 3.5 - 5.0 mmol/L CL 109 99 - 109 mmol/L CO2 20 (L) 21 - 28 mmol/L ANION GAP 11 5 - 16 mmol/L CALCIUM 8.5 8.5 - 10.2 mg/dL BUN 11 8 - 25 mg/dL Creatinine, Serum/Plasma 0.62 0.50 - 1.00 mg/dL GLUCOSE 120 (H) 65 - 99 mg/dL Estimated GFR 96 >=90 mL/min/1.73m2 Magnesium Result Value Ref Range MG 2.4 1.7 - 2.4 mg/dL Phosphorus Result Value Ref Range PHOSPHORUS 4.1 2.6 - 4.4 mg/dL Procalcitonin Result Value Ref Range Procalcitonin 1.33 (H) 0.00 - 0.09 ng/mL CBC no Differential Result Value Ref Range WBC 19.6 (H) 3.8 - 11.0 K/uL RBC 3.71 3.70 - 5.10 M/uL Hgb 11.4 11.3 - 15.5 g/dL Hct 32.5 (L) 34.0 - 46.0 % MCV 87.7 80.0 - 100.0 fL MCH 30.8 27.0 - 34.0 pg MCHC 35.2 32.0 - 35.5 g/dL RDW-CV 14.8 11.0 - 15.5 % Platelet Count 159 150 - 400 K/uL MPV 8.6 7.5 - 11.2 fL Blood Gas, Arterial Result Value Ref Range pH, Arterial 7.39 7.37 - 7.47 pCO2, Arterial 32 32 - 43 mmHg pO2, Arterial 108 (H) 65 - 80 mmHg Base Excess, Arterial -5.6 (L) -2.5 - 2.5 mmol/L HCO3, Arterial 19.4 (L) 23.0 - 28.0 mmol/L FiO2 40% ROUTE SIMV Rate 18 VT 400 PEEP 8 Methemoglobin, Venous 0.6 0.4 - 1.5 % Comment Ox97% EtCO2 24 O2 Content, Arterial 16.2 15.0 - 23.0 % Hct 35.8 34.0 - 46.0 % Carboxyhemoglobin 0.7 (L) 1.0 - 3.0 % Hgb 11.7 11.3 - 15.5 g/dL O2SAT COOX ARTERIAL 97.5 92.0 - 99.0 % Glucose, Respiratory Result Value Ref Range GLUCOSE 118 (H) 65 - 99 mg/dL Calcium, Ionized, Respiratory Result Value Ref Range Calcium, Ionized (mg/dL) 4.87 4.75 - 5.30 mg/dL Calcium, pH Normalized 4.83 4.75 - 5.30 mg/dL Lactic Acid, Arterial, Respiratory Result Value Ref Range Lactate, Arterial 2.0 (H) 0.5 - 1.6 mmol/L ECHO Complete Result Value Ref Range LVEF-TTE TRANSTHORACIC ECHO 75 Hemoglobin and Hematocrit Result Value Ref Range Hgb 8.8 (L) 11.3 - 15.5 g/dL Hct 25.4 (L) 34.0 - 46.0 % Blood Gas, Venous Result Value Ref Range pH, Venous 7.40 7.31 - 7.41 pCO2, Venous 34 (L) 41 - 51 mmHg pO2, Venous 59 (H) 37 - 43 mmHg Base Excess, Venous -4.2 (L) -2.0 - 2.0 mmol/L HCO3, Venous 20.7 (L) 22.0 - 26.0 mmol/L Comment OX98% ETCO2@27 Carboxyhemoglobin 0.9 (L) 1.0 - 3.0 % Hgb 8.9 (L) 11.3 - 15.5 g/dL Hct 27.1 (L) 34.0 - 46.0 % Methemoglobin, Venous 0.7 0.4 - 1.5 % O2 Content, Branden 11.4 (H) 4.5 - 6.0 % O2SAT COOX VENOUS 91.0 (H) 70.0 - 76.0 % FiO2 40 ROUTE IMV Glucose, Respiratory Result Value Ref Range GLUCOSE 118 (H) 65 - 99 mg/dL Potassium Whole Blood Result Value Ref Range K 5.0 3.5 - 5.0 mmol/L Calcium, Ionized, Respiratory Result Value Ref Range Calcium, Ionized (mg/dL) 4.67 (L) 4.75 - 5.30 mg/dL Calcium, pH Normalized 4.66 (L) 4.75 - 5.30 mg/dL Lactic Acid, Venous Result Value Ref Range Lactate, Venous 2.3 (H) 0.5 - 2.2 mmol/L Electronically signed by: Johnny Harmon MD, 08/18/2017 13:35 niery, Pedro Munoz MD - 08/18/2017 12:21 AM PDT [facility] GENERAL SURGERY CONSULT Primary Care Physician: Bry Vaughn PATIENT NAME: Amy Coleman : 1955 TODAY'S DATE: 08/18/2017 IMPRESSION: 62 y/o female with spontaneous bleed in her abdomen, likely from a 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 She was hypotensive and intubated on arrival having already rece ived 5 units of PRBCs. PLAN: -IR to attempt embolization -May need laparoscopy to evacuate hematoma in the AM CHIEF COMPLAINT: Abdominal pain hypotension History OF PRESENT ILLNESS: Amy Coleman is a 62 y.o. female with transferred here from outside hospital intubated. She reportedly presented with abdominal pain and syncope. CT scan demonstrated hemoperitoneu m with a likely pseudoaneurysm. PAST MEDICAL HISTORY No past medical history on file. PAST SURGICAL HISTORY Past Surgical History: Procedure Laterality Date CARDIAC CATHERIZATION N/A 05/09/2017 Procedure: CV LHC; Surgeon: Johnny Luther MD; Location: [facility] CV LAB MEDICATIONS PRIOR TO ADMISSION Prior to Admission medications Medication Sig Start Date End Date Taking? Authorizing Provider albuterol (VENTOLIN HFA) 90 mcg/puff inhaler Inhale 2 puffs into the lungs every 4 hours as needed. Historical Provider, albuterol-ipratropium (DUONEB) 2.5-0.5 mg/3 mL SOLN Take 3 mLs by nebulization every 6 hour s. Dx: COPD Acute hypoxic respiratory failure 05/11/17 Narcisa Boone MD aspirin 81 mg chewable tablet Take 1 tablet by mouth Daily. 05/11/17 Narcisa Boone MD atorvaSTATin (LIPITOR) 40 mg tablet Take 40 mg by mouth nightly. Historical Provider, buPROPion (WELLBUTRIN SR) 150 mg 12 hr tablet Take 150 mg by mouth 2 times daily. Histor ical Provider, carboxymethylcellulose (THERATEARS) 0.25% ophthalmic solution Place 1 drop into both eyes e very hour as needed for Dry Eyes. Historical Provider, lisinopril (PRINIVIL, ZESTRIL) 10 mg tablet Take 1 tablet by mouth Daily. 05/11/17 Narcisa Boone MD Multiple Vitamins-Minerals (SENIOR MULTIVITAMIN PLUS) TABS Take 1 tablet by mouth Daily. Historical Provider, nitroglycerin (NITROSTAT) 0.[address] 0.4 mg under the tongue every 5 minutes as needed for Chest pain. Historical Provider, oxybutynin (DITROPAN) 5 mg tablet Take 5 mg by mouth 2 times daily. Historical Provider, pantoprazole (PROTONIX) 40 mg tablet Take 1 tablet by mouth every morning (before breakfast ). 05/12/17 Narcisa Boone MD predniSONE (DELTASONE) 20 mg tablet Take 40 mg (2 tabs) by mouth daily for 3 days, then Kirt e 30 mg (1.5 tabs) by mouth daily for 3 days, then Take 20 mg (1 tab) by mouth daily for 3 d ays, then Take 10 mg (0.5 tab) by mouth daily for 3 days, then stop 05/11/17 Narcisa xiong MD propranolol (INDERAL) 80 mg tablet Take 80 mg by mouth Daily. For tremors Historical Pro viderMD umeclidinium (INCRUSE ELLIPTA) 62.5 mcg/puff inhaler Inhale 1 puff into the lungs Daily. Historical Provider, CURRENT MEDICATIONS Current Facility-Administered Medications Medication Dose Route Frequency Provider Last Rate Last Dose fentaNYL in saline 5 mcg/mL infusion 25-250 mcg/hr Intravenous Titrated Diana Boyle MD lidocaine 1% injection PRN [employer] MD 5 mL at 08/18/17 0003 magnesium sulfate 2 g/50 mL IVPB 2 g 2 g Intravenous PRN Diana Boyle MD And magnesium sulfate 4 g/100 mL IVPB 4 g 4 g Intravenous PRN Diana Boyle MD norepinephrine in saline (LEVOPHED) 16 mcg/mL infusion 1-30 mcg/min Intravenous Titrat ed Faby Rodriguez MD ondansetron (ZOFRAN) injection 4 mg 4 mg Intravenous Q6H PRN Diana Boyle MD pantoprazole (PROTONIX) injection 40 mg 40 mg Intravenous Daily Diana Boyle MD potassium chloride (K-DUR) ER tablet 40-60 mEq 40-60 mEq Oral PRN Diana Boyle MD And potassium chloride 20 mEq/15 mL liquid 40-60 mEq 40-60 mEq Feeding Tube PRN Diana dempsey MD And potassium chloride 10 mEq in 100 mL IVPB 10 mEq Intravenous PRN Diana Boyle MD sodium phosphate 42 mmol in sodium chloride 0.9% 250 mL IVPB 42 mmol Intravenous PRN B roberto Boyle MD And sodium phosphate 21 mmol in sodium chloride 0.9% 250 mL IVPB 21 mmol Intravenous PRN B roberto Boyle MD vasopressin (PITRESSIN) 0.2 Units/mL in sodium chloride 0.9% 100 mL infusion 0.03 Unit s/min Intravenous Titrated Faby Rodriguez MD ALLERGIES Allergies Allergen Reactions Amoxicillin Cephalexin Hydroxyzine Hcl Penicillins Ranitidine Hcl FAMILY HISTORY No family history on file. SOCIAL HISTORY The pt reports that she has been smoking. She started smoking about 51 years ago. She has been smoking about 1.00 pack per day. She has never used smokeless tobacco. She reports aubree t she drinks alcohol. She reports that she uses drugs, including Marijuana. REVIEW OF SYSTEMS Unable to obtain Physical Exam Intubated, responding to questions Tachycardic Mechanical breath sounds Abd mildly distended with mild tenderness throughout., no bruising or trauma noted, no othe r scars noted. Ext: 2+ pulses no edema Diagnostic Studies: Chemistry: Lab Results Component Value Date NA 139 08/17/2017 K 3.7 08/17/2017 CO2 19 08/17/2017 BUN 12 08/17/2017 CREA 0.64 08/17/2017 GLU 196 08/17/2017 Hematology: Lab Results Component Value Date HGB 11.9 08/17/2017 HCT 36.6 08/17/2017 WBC 18.5 08/17/2017 Electronically Signed by: Pedro Londono MD, 08/18/2017 0:21 [facility] documented in thi s encounter Miscellaneous Notes Plan of Care - Merced Leggett, Technologist - 08/23/2017 2:19 PM PDTProblem: Patient Care [place] (Adult) Goal: Care Team Goals & Evaluation PROBLEM-RELATED GOALS: RESP CARE - Patient oxygen saturation level will be titrated to keep sats >90% by 08/29/17 Patient will have no signs or symptoms of bleeding through 08/23/2017. Patient will not have any pressure ulcers during hospitalization Patient will not fall while hospitalized. Pt will report adequate pain control through 08/24/17 STRATEGY TO ACHIEVE GOALS: RESP CARE - Will wean oxygen as tolerated keeping sats >90% Monitor sats and patients respiratory status for signs of decompensation Assess abdomen, particularly LUQ and RUQ. Monitor H/H. Medicate for pain as needed--prefer s tylenol OOB TID, begin progressive ambulation Fall precautions Outcome: Unchanged Goal Evaluation: Patient assessed with respiratory therapy. stable on room air, no respiratory distress. Inhaled meds given as ordered, pulmonary hygiene performed via deep breathing & coughing and I.S.. Plan to continue current therapy. lan of Samara - Constance Johnson RN - 08/23/2017 12:56 PM PDTCTC received call from Nancy at Dr Wilson's office stating that they do not usually see post-op patients and they need to cancel pt's ap pt. They request a referral be placed so that Dr Wilson can review the chart and make a decis ion. REferral has been ordered in chart. Dr Browning office will contact pt with final decisio n. lan of Constance Frazier RN - 08/23/2017 9:13 AM PDTPCP follow up made for 09-05-17 at 10:30am as this is the only available appt in the follow up timeframe. Pt notified lan of Care - Leonidas Potts RN - 2017 4:55 AM PDT Problem: Patient Care Overview (Adult) Goal: Care Team Goals & Evaluation PROBLEM-RELATED GOALS: RESP CARE - Patient oxygen saturation level will be titrated to keep sats >90% by 08/29/17 Patient will have no signs or symptoms of bleeding through 08/23/2017. Patient will not have any pressure ulcers during hospitalization Patient will not fall while hospitalized. Pt will report adequate pain control through 08/24/17 STRATEGY TO ACHIEVE GOALS: RESP CARE - Will wean oxygen as tolerated keeping sats >90% Monitor sats and patients respiratory status for signs of decompensation Assess abdomen, particularly LUQ and RUQ. Monitor H/H. Medicate for pain as needed--prefer s tylenol OOB TID, begin progressive ambulation Fall precautions Outcome: Improving Goal Evaluation: Nursing Handoff Note Room # 556/556-02 Isolation: None Code Status: Full Code Item for control technician Comments Shift Summary: Pt is alert and oriented. Pain managed w/ [place] 5 x 1 tab. Frequent heartburn/indigestion. Tums effective for pt. R groin incision w/ gauze and tegaderm. Dressing changed. PICC saline-locked. Voiding adequately, passing flatus. Tolerating general diet. Probable home today. Slept well between cares. Dx/Tx: Procedure(s) (LRB): Gastric Artery Embolization with 2mm x 8cm coil and [place] 34 and 18 embolic (N/A) Anesthesia Type Moderate Sedation with RN OR/Procedure Time Date of Surgery 08/18/2017 5 Days Post-Op Active Diet Order: Active Orders Diet Diet general; Effective Now PICC/Central Line? Active PICC Lines PICC Line PICC Line - Double Lumen 08/17/17 basilic vein (medial side of arm), left 6 days Active Gtt: Abn Labs/Tx: Skin/Wounds: Santiago Score: 22 Comments: Mobility/HRF: Therapy Involved? (PT/OT/ST/RT) [] Yes [] No DC Plan: (Able to manage at home?) Winter/Voiding: [x] Voiding [] BU [] Check Void Time Active Urinary Caths No matching active lines, drains, or airways Drain: Active Drains No matching active lines, drains, or airways Ostomy: Active NG/OG/PEGs No matching active lines, drains, or airways Last bowel movement: Stool Occurrence: 1 (08/21/17 1527) Last Bowel Movement: 08/20/17 (08/21/17 1600) Pain Management: [place] Next Dose: CAM CAM Score: no MD Notification: Notification Provider Name/Title: Dr Roman (08/20/171511) Reason for Communication: Critical lab value with read back verification (08/20/171511) Method of Communication: Call (08/20/171511) Shipping And Receiving Coordinator for Provider: Sammie NUNEZ (08/20/171511) Response: See orders (08/20/171511) Vitals: 08/22/17 1903 08/22/17 2352 08/23/17 0002 08/23/17 0410 BP: 140/80 129/78 Pulse: 80 86 81 77 Resp: Temp: 36.9 C (98.4 F) 36.4 C (97.6 F) TempSrc: Temporal Temporal SpO2: 91% 92% 94% 93% Weight: Height: Component Value Date/Time POCGLU 107 05/11/2017 1143 POCGLU 130 (H) 05/10/2017 2057 POCGLU 113 (H) 05/10/2017 1654 POCGLU 93 05/10/2017 1130 lan of Care - N[place] regalado, COMMERCIAL PHOTOGRAPHER - 08/23/2017 4:14 AM PDTProblem: Patient Care Overview (Adult) Goal: Care Team Goals & Evaluation PROBLEM-RELATED GOALS: RESP CARE - Patient oxygen saturation level will be titrated to keep sats >90% by 08/29/17 Patient will have no signs or symptoms of bleeding through 08/23/2017. Patient will not have any pressure ulcers during hospitalization Patient will not fall while hospitalized. Pt will report adequate pain control through 08/22/17 STRATEGY TO ACHIEVE GOALS: RESP CARE - Will wean oxygen as tolerated keeping sats >90% Monitor sats and patients respiratory status for signs of decompensation Assess abdomen, particularly LUQ and RUQ. Monitor H/H. Medicate for pain as needed--prefer s tylenol OOB TID, begin progressive ambulation Fall precautions Outcome: Unchanged Patient assessed with respiratory therapy. stable on room air, no respiratory distress. I nhaled meds given as ordered, pulmonary hygiene performed via deep breathing & coughing. Pl an to continue current therapy. Goal Evaluation: lan of Care - Andrew Eric RN - 08/22/2017 4:59 PM PDT Problem: Patient Care Overview (Adult) Goal: Care Team Goals & Evaluation PROBLEM-RELATED GOALS: Patient oxygen saturation level will be titrated to keep sats >90% by 08/23/17.: Patient will have no signs or symptoms of bleeding through 08/23/2017. Patient will not have any pressure ulcers during hospitalization Patient will not fall while hospitalized. Pt will report adequate pain control through 08/22/17 STRATEGY TO ACHIEVE GOALS: Will wean oxygen as tolerated keeping sats >90% Extubated 08/19--monitor Sats, WOB, ABGs--titrate O2 for SaO2 >90% Assess abdomen, particularly LUQ and RUQ. Monitor H/H. Medicate for pain as needed--prefer s tylenol OOB TID, begin progressive ambulation Fall precautions Outcome: Improving Goal Evaluation: Nursing Handoff Note Room # 556/556-02 Isolation: None Code Status: Full Code Item for control technician Comments Shift Summary: Alert and oriented x4, VSS, up independently in room and halls. Denies pain. S/P embolization of right visceral artery. ANticipating D/C tomorrow. Patient lives in [facility] and needs advanced notice of D/C to notify her ride to come pick her up. Call light w claudio espinoza, will continue to monitor. This evening complained of upper abdominal/chest pain/tightness, rated 6/10. Had moderate a mount of relief with newly ordered GI cocktail. Then complained of head/neck pain and given norco x1. Dx/Tx: Procedure(s) (LRB): Gastric Artery Embolization with 2mm x 8cm coil and Rod 34 and 18 embolic (N/A) Anesthesia Type Moderate Sedation with RN OR/Procedure Time Date of Surgery 08/18/2017 3 Days Post-Op Active Diet Order: Active Orders Diet Diet general; Effective Now PICC/Central Line? Active PICC Lines PICC Line PICC Line - Double Lumen 08/17/17 basilic vein (medial side of arm), left 5 days Active Gtt: Abn Labs/Tx: Skin/Wounds: Santiago Score: 21 Comments: Mobility/HRF: Therapy Involved? (PT/OT/ST/RT) [] Yes [] No DC Plan: (Able to manage at home?) Winter/Voiding: [] Voiding [] BU [] Check Void Time Active Urinary Caths No matching active lines, drains, or airways Drain: Active Drains No matching active lines, drains, or airways Ostomy: Active NG/OG/PEGs No matching active lines, drains, or airways Last bowel movement: Stool Occurrence: 1 (08/21/17 1527) Last Bowel Movement: 08/20/17 (08/21/17 1600) Pain Management: Next Dose: CAM CAM Score: no MD Notification: Notification Provider Name/Title: Dr Roman (08/20/171511) Reason for Communication: Critical lab value with read back verification (08/20/171511) Method of Communication: Call (08/20/171511) Shipping And Receiving Coordinator for Provider: Sammie NUNEZ (08/20/171511) Response: See orders (08/20/171511) Vitals: 08/22/17 1109 08/22/17 1126 08/22/17 1606 08/22/17 1638 BP: 123/76 120/77 Pulse: 97 91 77 81 Resp: Temp: 36.8 C (98.3 F) 37.7 C (99.8 F) TempSrc: Temporal Temporal SpO2: 94% 94% 96% 91% Weight: Height: Component Value Date/Time POCGLU 107 05/11/2017 1143 POCGLU 130 (H) 05/10/2017 2057 POCGLU 113 (H) 05/10/2017 1654 POCGLU 93 05/10/2017 1130 lan of Care - Nicolás Mello RRT - 08/22/2017 4:45 PM PDTProblem: Patient Care Overview (Adult) Goal: Care Team Goals & Evaluation PROBLEM-RELATED GOALS: Patient oxygen saturation level will be titrated to keep sats >90% by 08/23/17.: Patient will have no signs or symptoms of bleeding through 08/23/2017. Patient will not have any pressure ulcers during hospitalization Patient will not fall while hospitalized. Pt will report adequate pain control through 08/22/17 STRATEGY TO ACHIEVE GOALS: Will wean oxygen as tolerated keeping sats >90% Extubated 08/19--monitor Sats, WOB, ABGs--titrate O2 for SaO2 >90% Assess abdomen, particularly LUQ and RUQ. Monitor H/H. Medicate for pain as needed--prefer s tylenol OOB TID, begin progressive ambulation Fall precautions Outcome: Unchanged Patient assessed with respiratory therapy. stable on room air, no respiratory distress. I nhaled meds given as ordered, pulmonary hygiene performed via deep breathing & coughing. Pl an to continue current therapy. Goal Evaluation: lan of Care - Nori Vidal RN - 08/22/2017 8:19 AM PDTFormatting of this note might be different from the o riginal. Problem: Patient Care Overview (Adult) Goal: Care Team Goals & Evaluation PROBLEM-RELATED GOALS: Patient oxygen saturation level will be titrated to keep sats >90% by 08/23/17.: Patient will have no signs or symptoms of bleeding through 08/23/2017. Patient will not have any pressure ulcers during hospitalization Patient will not fall while hospitalized. Pt will report adequate pain control through 08/22/17 STRATEGY TO ACHIEVE GOALS: Will wean oxygen as tolerated keeping sats >90% Extubated 08/19--monitor Sats, WOB, ABGs--titrate O2 for SaO2 >90% Assess abdomen, particularly LUQ and RUQ. Monitor H/H. Medicate for pain as needed--prefer s tylenol OOB TID, begin progressive ambulation Fall precautions Outcome: Improving Goal Evaluation: Nursing Handoff Note Room # 556/556-02 Isolation: None Code Status: Full Code Item for control technician Comments Shift Summary: Pt is alert and oriented. Denied pain through night Right groin dressing with dried drainage Tolerates , denies nausea Rested well Dx/Tx: Procedure(s) (LRB): Gastric Artery Embolization with 2mm x 8cm coil and Tranquillity 34 and 18 embolic (N/A) Anesthesia Type Moderate Sedation with RN OR/Procedure Time Date of Surgery 08/18/2017 4 Days Post-Op Active Diet Order: Active Orders Diet Diet general; Effective Now PICC/Central Line? Active PICC Lines PICC Line PICC Line - Double Lumen 08/17/17 basilic vein (medial side of arm), left 5 days Active Gtt: Abn Labs/Tx: Skin/Wounds: Santiago Score: 21 Comments: Mobility/HRF: Therapy Involved? (PT/OT/ST/RT) [] Yes [] No DC Plan: (Able to manage at home?) Winter/Voiding: [] Voiding [] BU [] Check Void Time Active Urinary Caths No matching active lines, drains, or airways Drain: Active Drains No matching active lines, drains, or airways Ostomy: Active NG/OG/PEGs No matching active lines, drains, or airways Last bowel movement: Stool Occurrence: 1 (08/21/17 1527) Last Bowel Movement: 08/20/17 (08/21/17 1600) Pain Management: Next Dose: CAM CAM Score: no MD Notification: Notification Provider Name/Title: Dr Roman (08/20/171511) Reason for Communication: Critical lab value with read back verification (08/20/171511) Method of Communication: Call (08/20/17 151) Shipping And Receiving Coordinator for Provider: Sammie RN (08/20/17 151) Response: See orders (08/20/17 151) Vitals: 08/21/17 1949 08/21/17 2304 08/22/17 0047 08/22/17 0457 BP: 117/77 125/77 Pulse: 81 89 87 82 Resp: Temp: 36.6 C (97.9 F) 36.2 C (97.1 F) TempSrc: Temporal Temporal SpO2: 94% 93% 94% 91% Weight: Height: Component Value Date/Time POCGLU 107 05/11/2017 1143 POCGLU 130 (H) 05/10/2017 2057 POCGLU 113 (H) 05/10/2017 1654 POCGLU 93 05/10/2017 1130 lan of Care - Sowmya Cevallos RRT - 08/22/2017 4:58 AM PDTProblem: Patient Care Overview (Adult) Goal: Care Team Goals & Evaluation PROBLEM-RELATED GOALS: Patient oxygen saturation level will be titrated to keep sats >90% by 08/23/17.: Patient will have no signs or symptoms of bleeding through 08/23/2017. Patient will not have any pressure ulcers during hospitalization Patient will not fall while hospitalized. Pt will report adequate pain control through 08/22/17 STRATEGY TO ACHIEVE GOALS: Will wean oxygen as tolerated keeping sats >90% Extubated 08/19--monitor Sats, WOB, ABGs--titrate O2 for SaO2 >90% Assess abdomen, particularly LUQ and RUQ. Monitor H/H. Medicate for pain as needed--prefer s tylenol OOB TID, begin progressive ambulation Fall precautions Outcome: Unchanged Goal Evaluation: Patient assessed with respiratory therapy. stable on room air, dis tress only with exertion. Inhaled meds given as ordered, pulmonary hygiene performed via de ep breathing & coughing. Plan to continue current therapy. lan of Care - Armando Matthews RN - 08/21/2017 11:03 PM PDTFormatting of this note might be different from t kevin original. Problem: Patient Care Overview (Adult) Goal: Care Team Goals & Evaluation PROBLEM-RELATED GOALS: Patient oxygen saturation level will be titrated to keep sats >90% by 08/23/17.: Patient will have no signs or symptoms of bleeding through 08/23/2017. Patient will not have any pressure ulcers during hospitalization Patient will not fall while hospitalized. Pt will report adequate pain control through 08/22/17 STRATEGY TO ACHIEVE GOALS: Will wean oxygen as tolerated keeping sats >90% Extubated 08/19--monitor Sats, WOB, ABGs--titrate O2 for SaO2 >90% Assess abdomen, particularly LUQ and RUQ. Monitor H/H. Medicate for pain as needed--prefer s tylenol OOB TID, begin progressive ambulation Fall precautions Outcome: Improving Goal Evaluation: Nursing Handoff Note Room # 556/556-02 Isolation: None Code Status: Full Code Item for control technician Comments Shift Summary: Patient up indp to bathroom and hallway. PICC to LUE double lumen, CDI. Pain tolerable, denies nausea. Resting at this time, will continue to monitor. Possible discharge in AM. Electronically signed by: ARMANDO MONTEIRO RN 08/21/2017 23:02 Dx/Tx: Procedure(s) (LRB): Gastric Artery Embolization with 2mm x 8cm coil and Rod 34 and 18 embolic (N/A) Anesthesia Type Moderate Sedation with RN OR/Procedure Time Date of Surgery 08/18/2017 3 Days Post-Op Active Diet Order: Active Orders Diet Diet general; Effective Now PICC/Central Line? Active PICC Lines PICC Line PICC Line - Double Lumen 08/17/17 basilic vein (medial side of arm), left 4 days Active Gtt: Abn Labs/Tx: Skin/Wounds: Santiago Score: 21 Comments: Mobility/HRF: Therapy Involved? (PT/OT/ST/RT) [] Yes [] No DC Plan: (Able to manage at home?) Winter/Voiding: [] Voiding [] BU [] Check Void Time Active Urinary Caths No matching active lines, drains, or airways Drain: Active Drains No matching active lines, drains, or airways Ostomy: Active NG/OG/PEGs No matching active lines, drains, or airways Last bowel movement: Stool Occurrence: 1 (08/21/17 1527) Last Bowel Movement: 08/20/17 (08/21/17 1600) Pain Management: Next Dose: CAM CAM Score: no MD Notification: Notification Provider Name/Title: Dr Roman (08/20/171511) Reason for Communication: Critical lab value with read back verification (08/20/171511) Method of Communication: Call (08/20/171511) Shipping And Receiving Coordinator for Provider: Sammie NUNEZ (08/20/171511) Response: See orders (08/20/171511) Vitals: 08/21/17 1208 08/21/17 1527 08/21/17 1631 08/21/17 1949 BP: 119/77 117/77 Pulse: 88 81 74 81 Resp: 16 18 Temp: 36.9 C (98.5 F) 36.6 C (97.9 F) TempSrc: Temporal Temporal SpO2: 90% 94% 92% 94% Weight: Height: Component Value Date/Time POCGLU 107 05/11/2017 1143 POCGLU 130 (H) 05/10/2017 2057 POCGLU 113 (H) 05/10/2017 1654 POCGLU 93 05/10/2017 1130 lan of Care - Sarah Cortes, PT - 08/21/2017 3:05 PM PDTPT, Sarah Acuña co-signed note and indicated score of 23/24 on DGI per chart review of Rowan Levine PT treatment and documentation. Sarah Acuña 08/21/2017 15:30 Problem: Patient Care Overview (Adult) Goal: Care Team Goals & Evaluation PROBLEM-RELATED GOALS: Patient oxygen saturation level will be titrated to keep sats >90% by 08/23/17.: Patient will have no signs or symptoms of bleeding through 08/23/2017. Patient will not have any pressure ulcers during hospitalization Patient will not fall while hospitalized. Pt will report adequate pain control through 08/22/17 STRATEGY TO ACHIEVE GOALS: Will wean oxygen as tolerated keeping sats >90% Extubated 08/19--monitor Sats, WOB, ABGs--titrate O2 for SaO2 >90% Assess abdomen, particularly LUQ and RUQ. Monitor H/H. Medicate for pain as needed--prefer s tylenol OOB TID, begin progressive ambulation Fall precautions Outcome: Improving Physical Therapy Plan of Care Treatment Note Summary: Pt was up in bed willing to participate in tx today. upon test O2 reading 79-81 w ith RA and had not been connected to O2 upon arrival. with 1L o2 pt was reading in mid 90's. stating she felt the slightest bit off but did not affect her functional mobility. she was able to ambulate I 300'x1 with dynamic activites such as head turning, stop/start, and tessa gating obstacles with no LOB. upon performing DGI pt scored 23 which indicates low fall risk . REC DC home when medically stable and does not feel she needs continued PT when D/C. Physical Therapy will follow Amy shah (see comments) (5-6x/week) until di scharge from therapy or discharged from the hospital. Planned Interventions include balance training, bed mobility training, gait training, home exercise program, neuromuscular re-educ ation, patient/family education, postural re-education, stair training, strengthening, trans trupti training . Predicted Duration of Therapy Intervention (days): 2-5 days . Physical Therapy Discharge Recommendations are: Recommended discharge disposition: home with assist Post discharge physical therapy recommendation: no further PT Equipment Recommendations: none Equipment Issued: Onset of Illness/Injury: 08/16/17 Pertinent History of Current Problem: Patient is a 62 year old female admitted with COPD wi th GI bleed, s/p coil emobilization of R gastric artery on 08/18. PMHx: NSTEMI. See H&P for mo re details. Impairments Found: aerobic capacity/endurance, ergonomics and body mechanics, gait, locomot ion, and balance, ventilation and respiration/gas exchange General Information: Precautions: falls, oxygen therapy device and L/min, other (see comments) LUE WB status: RUE WB status: LLE WB status: RLE WB status: General Observations: Patient on supplemental O2 via nasal cannula Social History: Lives With: child(ana luisa), adult Living Arrangements: house # of Stairs to Enter Home: 6 ; Rail: Stair Railings at Home: inside, present on right side ; # of Stairs Within Home: 6 Additional Information: Lives in house with son and daughter in law with 2 sets of 6 stair s down to get to bottom apartment, or 15 steps down from inside the home with a few steps to enter. Family can assist at Dc Prior level of function: Completely independent with mobility, ADLs, gets assist for IADLs. Recently has only been walking 150' at a time before needing a rest break. Denies any falls in the last 6 months. Has a walk-in shower, no DME Current Pain: denies pain/discomfort Pain Body Location - Side: Bilateral head At Rest: 0 ; With Activity: 0 Patient Status/Goals: Reflects last filed data of patient status; may be from multiple contributors. Bed Mobility Comments: Utilizes: none Supine to Sit: independent Sit to Supine: independent Goal Status: met Level of Speer: independent Transfers Bed to Chair: not tested Chair to Bed: not tested Utilizing: other (see comments) (hand hold assist) Sit to Stand: independent Stand to Sit: independent Utilizing: none Status: met Speer Level: independent Gait Level of Assist: independent Utilizes: none Distance: 300 Goal Status: met Goal: independent Device: none Distance: 150' Stairs # of stairs: 12 Handrail Location: left side (ascending) Level of Speer: independent Utilizes: 1 rail Technique: step over step (ascending) Maintain WB Status: able to maintain weight bearing status STG Status: met Level of Speer: modified independent # of stairs: 6 Utilizes: 1 rail Electronically signed by: Rowan Levine PTA 08/21/2017 15:03 Thank you for requesting Acute Care Therapy Services to participate in the care of Amy Coleman . We appreciate the opportunity to be of assistance. lan of Lilian Wen RN - 08/21/2017 1:29 PM PDTMet with patient to discuss the Hospitalist abdi blackman in their care. Confirmed PCP as Bry Vaughn. Verified H&P was sent to PCP-notified jackie ent that this was done. Patient requested that PCP appointment be scheduled afternoon . Jackie ent states no concerns about transportation to hospital follow up appointments. Made patient aware that myself or one of my colleagues would be calling them at home a day or two after discharge, to check in and see how they are doing. Patient verified understanding, and state s the best number to reach at after discharge is [phone]. lan of Samara - Sammie Hare RN - 018 1:17 PM PDT Problem: Patient Care Overview (Adult) Goal: Care Team Goals & Evaluation PROBLEM-RELATED GOALS: Patient oxygen saturation level will be titrated to keep sats >90% by 08/23/17.: Patient will have no signs or symptoms of bleeding through 08/23/2017. Patient will not have any pressure ulcers during hospitalization Patient will not fall while hospitalized. Pt will report adequate pain control through 08/22/17 STRATEGY TO ACHIEVE GOALS: Will wean oxygen as tolerated keeping sats >90% Extubated 08/19--monitor Sats, WOB, ABGs--titrate O2 for SaO2 >90% Assess abdomen, particularly LUQ and RUQ. Monitor H/H. Medicate for pain as needed--prefer s tylenol OOB TID, begin progressive ambulation Fall precautions Goal Evaluation: Nursing Handoff Note Room # 556/556-02 Isolation: None Code Status: Full Code Item for control technician Comments Shift Summary: Pt A&Ox4 calm, pleasant Pt OOB to work with PT and for shower Pt tolerating general diet Pt modified independence for ambulation, continue to encourage ambulation Dressings on bilateral arms/L neck remain CDI, R groin dressing has old, dried drainage wit h no swelling/hematoma/pain noted Pt denies pain/discomfort Dx/Tx: Procedure(s) (LRB): Gastric Artery Embolization with 2mm x 8cm coil and Tranquillity 34 and 18 embolic (N/A) Anesthesia Type Moderate Sedation with RN OR/Procedure Time Date of Surgery 08/18/2017 3 Days Post-Op Active Diet Order: Active Orders Diet Diet general; Effective Now PICC/Central Line? Active PICC Lines PICC Line PICC Line - Double Lumen 08/17/17 basilic vein (medial side of arm), left 4 days Active Gtt: Abn Labs/Tx: Skin/Wounds: Santiago Score: 21 Comments: Mobility/HRF: Therapy Involved? (PT/OT/ST/RT) [] Yes [] No DC Plan: (Able to manage at home?) Winter/Voiding: [] Voiding [] BU [] Check Void Time Active Urinary Caths No matching active lines, drains, or airways Drain: Active Drains No matching active lines, drains, or airways Ostomy: Active NG/OG/PEGs No matching active lines, drains, or airways Last bowel movement: Stool Occurrence: 1 (08/20/17 0200) Last Bowel Movement: 08/20/17 (NOC shift) (08/20/17 0800) Pain Management: Next Dose: CAM CAM Score: no MD Notification: Notification Provider Name/Title: Dr Roman (08/20/171511) Reason for Communication: Critical lab value with read back verification (08/20/171511) Method of Communication: Call (08/20/171511) Shipping And Receiving Coordinator for Provider: Sammie NUNEZ (08/20/171511) Response: See orders (08/20/171511) Vitals: 08/21/17 0440 08/21/17 0752 08/21/17 0800 08/21/17 1208 BP: 146/74 Pulse: 86 87 93 88 Resp: 16 16 16 Temp: 36.4 C (97.6 F) TempSrc: Oral SpO2: 98% 92% 97% 90% Weight: Height: Component Value Date/Time POCGLU 107 05/11/2017 1143 POCGLU 130 (H) 05/10/2017 2057 POCGLU 113 (H) 05/10/2017 1654 POCGLU 93 05/10/2017 1130 lan of Care - Gwen Young RRT - 08/21/2017 12:10 PM PDTProblem: Patient Care Overview (Adult) Goal: Care Team Goals & Evaluation PROBLEM-RELATED GOALS: Patient oxygen saturation level will be titrated to keep sats >90% by 08/23/17.: Patient will have no signs or symptoms of bleeding through 08/23/2017. Patient will not have any pressure ulcers during hospitalization Patient will not fall while hospitalized. Pt will report adequate pain control through 08/22/17 STRATEGY TO ACHIEVE GOALS: Will wean oxygen as tolerated keeping sats >90% Extubated 08/19--monitor Sats, WOB, ABGs--titrate O2 for SaO2 >90% Assess abdomen, particularly LUQ and RUQ. Monitor H/H. Medicate for pain as needed--prefer s tylenol OOB TID, begin progressive ambulation Fall precautions Goal Evaluation: Patient assessed with respiratory therapy. stable on room air, no respiratory distress. Inhaled meds given as ordered, pulmonary hygiene performed via deep b reathing & coughing and I.S.. Plan to continue current therapy. ospital Course - [place], Riky Avendaño MD - 08/21/2017 9:50 AM PDTAmy Coleman is a 62-year-old femal e with past medical history significant for COPD, CAD s/p NSTEMI ( no PCI), who was transfer red to [facility] for ICU care from [place] on 08/17 where she was intubated for hypercarbic respi ratory failure as well as hemorrhagic shock secondary to intra-abdominal bleeding requiring MTP. CT abdomen [...] Patient transferred to the floor on 08/20. lan of Care - Trina Cordova RN - 08/21/2017 8:15 AM PDTForma tting of this note might be different from the original. Problem: Patient Care Overview (Adult) Goal: Care Team Goals & Evaluation PROBLEM-RELATED GOALS: Patient oxygen saturation level will be titrated to keep sats >90% by 08/23/17.: Patient will have no signs or symptoms of bleeding through 08/23/2017. Patient will not have any pressure ulcers during hospitalization Patient will not fall while hospitalized. Pt will report adequate pain control through 08/22/17 STRATEGY TO ACHIEVE GOALS: Will wean oxygen as tolerated keeping sats >90% Extubated 08/19--monitor Sats, WOB, ABGs--titrate O2 for SaO2 >90% Assess abdomen, particularly LUQ and RUQ. Monitor H/H. Medicate for pain as needed--prefer s tylenol OOB TID, begin progressive ambulation Fall precautions Goal Evaluation: Nursing Handoff Note Room # 556/556-02 Isolation: None Code Status: Full Code Item for control technician Comments Shift Summary: A/O. No pain reported. Tylenol 650mg available. COPD. Pt is on 1L Oxygen. Sating at 92%. H/H monitoring. Next blood draw at noon. General diet tolerating well. Up IND bedside commode. Left PICC flushing without difficulty. Incision dressing dry and intact. Groin dressing has dried serosanguinous drainage. Electronically signed by: Trina Cordova RN 08/21/2017 8:15 Dx/Tx: Procedure(s) (LRB): Gastric Artery Embolization with 2mm x 8cm coil and Rod 34 and 18 embolic (N/A) Anesthesia Type Moderate Sedation with RN OR/Procedure Time Date of Surgery 08/18/2017 3 Days Post-Op Active Diet Order: Active Orders Diet Diet general; Effective Now PICC/Central Line? Active PICC Lines PICC Line PICC Line - Double Lumen 08/17/17 basilic vein (medial side of arm), left 4 days Active Gtt: Abn Labs/Tx: Skin/Wounds: Santiago Score: 21 Comments: Mobility/HRF: Therapy Involved? (PT/OT/ST/RT) [] Yes [] No DC Plan: (Able to manage at home?) Winter/Voiding: [] Voiding [] BU [] Check Void Time Active Urinary Caths No matching active lines, drains, or airways Drain: Active Drains No matching active lines, drains, or airways Ostomy: Active NG/OG/PEGs No matching active lines, drains, or airways Last bowel movement: Stool Occurrence: 1 (08/20/17 0200) Last Bowel Movement: 08/20/17 (NOC shift) (08/20/17 0800) Pain Management: Next Dose: CAM CAM Score: no MD Notification: Notification Provider Name/Title: Dr Roman (08/20/171511) Reason for Communication: Critical lab value with read back verification (08/20/171511) Method of Communication: Call (08/20/171511) Shipping And Receiving Coordinator for Provider: Sammie NUNEZ (08/20/171511) Response: See orders (06/09/18 1512) Vitals: 08/21/17 0027 08/21/17 0045 08/21/17 0440 08/21/17 0752 BP: 111/73 Pulse: 80 80 86 87 Resp: 16 16 16 16 Temp: 36.1 C (96.9 F) TempSrc: Temporal SpO2: 98% 100% 98% 92% Weight: Height: Component Value Date/Time POCGLU 107 05/11/2017 1143 POCGLU 130 (H) 05/10/20177 POCGLU 113 (H) 05/10/2017 1654 POCGLU 93 05/10/2017 1130 lan of Care - Gini Goncalves RN - 08/20/2017 9:58 PM PDT Problem: Patient Care Overview (Adult) Goal: Care Team Goals & Evaluation PROBLEM-RELATED GOALS: Patient oxygen saturation level will be titrated to keep sats >90% by 08/23/17.: Patient will have no signs or symptoms of bleeding through 08/23/2017. Patient will not have any pressure ulcers during hospitalization Patient will not fall while hospitalized. Pt will report adequate pain control through 08/22/17 STRATEGY TO ACHIEVE GOALS: Will wean oxygen as tolerated keeping sats >90% Extubated 08/19--monitor Sats, WOB, ABGs--titrate O2 for SaO2 >90% Assess abdomen, particularly LUQ and RUQ. Monitor H/H. Medicate for pain as needed--prefer s tylenol OOB TID, begin progressive ambulation Fall precautions Outcome: Improving Goal Evaluation: Nursing Handoff Note Room # 556/556-02 Isolation: None Code Status: Full Code Item for control technician Comments Shift Summary: Pt oriented. PICC line, patent. Up ind. dsg to right groin, dried drainage. Pain controlled with tylenol. Pt tolerated all cares well. Dx/Tx: Procedure(s) (LRB): Gastric Artery Embolization with 2mm x 8cm coil and [place] 34 and 18 embolic (N/A) Anesthesia Type Moderate Sedation with RN OR/Procedure Time Date of Surgery 08/18/2017 2 Days Post-Op Active Diet Order: Active Orders Diet Diet general; Effective Now PICC/Central Line? Active PICC Lines PICC Line PICC Line - Double Lumen 08/17/17 basilic vein (medial side of arm), left 3 days Active Gtt: Abn Labs/Tx: Skin/Wounds: Santiago Score: 21 Comments: Mobility/HRF: Therapy Involved? (PT/OT/ST/RT) [] Yes [] No DC Plan: (Able to manage at home?) Winter/Voiding: [] Voiding [] BU [] Check Void Time Active Urinary Caths No matching active lines, drains, or airways Drain: Active Drains No matching active lines, drains, or airways Ostomy: Active NG/OG/PEGs No matching active lines, drains, or airways Last bowel movement: Stool Occurrence: 1 (08/20/17 0200) Last Bowel Movement: 08/20/17 (NOC shift) (08/20/17 0800) Pain Management: Next Dose: CAM CAM Score: no MD Notification: Notification Provider Name/Title: Dr Roman (08/20/171511) Reason for Communication: Critical lab value with read back verification (08/20/171511) Method of Communication: Call (08/20/171511) Shipping And Receiving Coordinator for Provider: Sammie NUNEZ (08/20/171511) Response: See orders (08/20/171511) Vitals: 08/20/17 1550 08/20/17 1610 08/20/17 1940 08/20/17 2045 BP: 141/79 101/77 Pulse: 88 95 87 81 Resp: 18 16 16 16 Temp: 35.9 C (96.6 F) 36.3 C (97.4 F) TempSrc: Temporal Temporal SpO2: 97% 94% (!) 85% 97% Weight: Height: Component Value Date/Time POCGLU 107 05/11/2017 1143 POCGLU 130 (H) 05/10/20177 POCGLU 113 (H) 05/10/2017 1654 POCGLU 93 05/10/2017 1130 lan of [facility] [place] - Sammie Hare RN - 08/20/2017 2:27 PM PDT Problem: Patient Care Overview (Adult) Goal: Care Team Goals & Evaluation PROBLEM-RELATED GOALS: Patient oxygen saturation level will be titrated to keep sats >90% by 08/23/17.: Patient will have no signs or symptoms of bleeding through 08/23/2017. Patient will not have any pressure ulcers during hospitalization Patient will not fall while hospitalized. Pt will report adequate pain control through 08/22/17 STRATEGY TO ACHIEVE GOALS: Will wean oxygen as tolerated keeping sats >90% Extubated 08/19--monitor Sats, WOB, ABGs--titrate O2 for SaO2 >90% Assess abdomen, particularly LUQ and RUQ. Monitor H/H. Medicate for pain as needed--prefer s tylenol OOB TID, begin progressive ambulation Fall precautions Goal Evaluation: Nursing Handoff Note Room # 556/556-02 Isolation: None Code Status: Full Code Item for control technician Comments Shift Summary: Pt arrived to the floor at approximately 1300 Pt A&Ox4 calm and pleasant. C/O pain 04/23 requested tylenol Pt orientated to room, call holman, and bed controls Pt up to BR with modified independence, just needs help with the O2 Dressings on R wrist CDI Dressings on L arm CDI Dressing on R groin old drainage no signs of new drainage, no swelling, no hematoma Pt C/o gas but no N/VD Dx/Tx: Procedure(s) (LRB): Gastric Artery Embolization with 2mm x 8cm coil and Rod 34 and 18 embolic (N/A) Anesthesia Type Moderate Sedation with RN OR/Procedure Time Date of Surgery 08/18/2017 2 Days Post-Op Active Diet Order: Active Orders Diet Diet general; Effective Now PICC/Central Line? Active PICC Lines PICC Line PICC Line - Double Lumen 08/17/17 basilic vein (medial side of arm), left 3 days Active Gtt: Abn Labs/Tx: Skin/Wounds: Santiago Score: 21 Comments: Mobility/HRF: Therapy Involved? (PT/OT/ST/RT) [] Yes [] No DC Plan: (Able to manage at home?) Winter/Voiding: [] Voiding [] BU [] Check Void Time Active Urinary Caths No matching active lines, drains, or airways Drain: Active Drains No matching active lines, drains, or airways Ostomy: Active NG/OG/PEGs No matching active lines, drains, or airways Last bowel movement: Stool Occurrence: 1 (08/20/17 0200) Last Bowel Movement: 08/20/17 (NOC shift) (08/20/17 08) Pain Management: Next Dose: CAM CAM Score: no MD Notification: Notification Provider Name/Title: Dr Canales - surgery (08/20/17899) Reason for Communication: Review case (08/20/17899) Method of Communication: Face to face (08/20/17899) Shipping And Receiving Coordinator for Provider: Jethro Guthrie RN (08/20/17899) Response: See orders (okay to transfer, adv diet as tolerated) (08/20/17899) Vitals: 08/20/17 1100 08/20/17 1139 08/20/17 1200 08/20/17 1312 BP: 108/49 118/66 Pulse: 79 80 67 82 Resp: 16 17 11 16 Temp: 36.3 C (97.4 F) 36 C (96.8 F) TempSrc: Temporal Temporal SpO2: 100% 93% Weight: Height: Component Value Date/Time POCGLU 107 05/11/2017 1143 POCGLU 130 (H) 05/10/2017 2057 POCGLU 113 (H) 05/10/2017 1654 POCGLU 93 05/10/2017 1130 lan of [facility] [place] - Lucian Dixon RN - 08/20/2017 1:24 PM PDTProblem: Patient Care Overview (Adult) Goal: Care Team Goals & Evaluation PROBLEM-RELATED GOALS: Patient oxygen saturation level will be titrated to keep sats >90% by 08/23/17.: Patient will have no signs or symptoms of bleeding through 08/23/2017. Patient will not have any pressure ulcers during hospitalization Patient will not fall while hospitalized. Pt will report adequate pain control through 08/22/17 STRATEGY TO ACHIEVE GOALS: Will wean oxygen as tolerated keeping sats >90% Extubated 08/19--monitor Sats, WOB, ABGs--titrate O2 for SaO2 >90% Assess abdomen, particularly LUQ and RUQ. Monitor H/H. 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 Pt A&Ox4, pleasant, in goo d spirits. SR on tele, with sinus arrhythmia noted on ECG, intermittently very brief pauses causing rhythm to be slightly irregular. BP hypertensive prior to AM meds, improved after. 2L/min NC, slight crackles in LLL earlier this morning, improved at lunch time, slightly c ongested sounding cough. Advancing diet, tolerating full liquid so far. BM last night. Di uresing with IV lasix, at least 3L output this shift. Repeat K+ level pending as well as H/ H. Up in chair, independent to commode. PICC re-dressed by IVT RN, patent in LUE. Glasses on patient. No other belongings. Report called to Kayleigh NUNEZ 5S. Electronically signed by: Lucian Guthrie RN 08/20/2017 13:24 lan of Care - Jarocho Patel V, COMMERCIAL PHOTOGRAPHER - 08/20/2017 11:44 AM PDTProblem: Patient Care Overview (Adult) Goal: Care Team Goals & Evaluation PROBLEM-RELATED GOALS: Patient oxygen saturation level will be titrated to keep sats >90% by 08/20/17.: Patient will be extubated by 08/20/2017---MET Patient will have no signs or symptoms of bleeding by 08/21/2017. Patient will not have any pressure ulcers during hospitalization Patient will not fall while hospitalized. Pt will report adequate pain control by 08/22/17 STRATEGY TO ACHIEVE GOALS: Will wean oxygen as tolerated keeping sats >90% Extubated 08/19--monitor Sats, WOB, ABGs--titrate O2 for SaO2 >90% Assess abdomen, particularly LUQ and RUQ. Monitor H/H. Medicate for pain as needed--prefer s tylenol OOB TID, begin progressive ambulation Fall precautions Outcome: Improving Goal Evaluation: Patient assessed with respiratory therapy. stable on low flow O2, no respiratory distress . Inhaled meds given as ordered, pulmonary hygiene performed via deep breathing & coughing and postural drainage. Plan to continue current therapy. lan of Care - Jumana López Speech Pathologist - 08/20/2017 10:35 AM PDTSpeech Therapy Plan of Car e Screening Note Summary: Acknowledge orders for GLOBAL SECURITY ARCHITECT swallow evaluation per extubation protocol. OME: WFL. Pt. takin g clear liquids per surgery team without deficits. No overt s/s aspiration noted with consec utive swallows of thin liquids with GLOBAL SECURITY ARCHITECT. Recommend diet advancement per surgery team. GLOBAL SECURITY ARCHITECT to s/off, please reorder if status changes. Electronically signed by: Jumana Sarmiento Speech Pathologist 08/20/2017 10:35 Plan of Care - Erasmo Herron, RN - 08/20/2017 6:23 AM PDTProblem: Patient Care Overv iew (Adult) Goal: Care Team Goals & Evaluation PROBLEM-RELATED GOALS: Patient oxygen saturation level will be titrated to keep sats >90% by 08/20/17.: Patient will be extubated by 08/20/2017---MET Patient will have no signs or symptoms of bleeding by 08/21/2017. Patient will not have any pressure ulcers during hospitalization Patient will not fall while hospitalized. Pt will report adequate pain control by 08/22/17 STRATEGY TO ACHIEVE GOALS: Will wean oxygen as tolerated keeping sats >90% Extubated 08/19--monitor Sats, WOB, ABGs--titrate O2 for SaO2 >90% Assess abdomen, particularly LUQ and RUQ. Monitor H/H. Medicate for pain as needed--prefer s tylenol OOB TID, begin progressive ambulation Fall precautions Outcome: Improving Goal Evaluation: Neuro: Amy is alert and oriented, pleasant and cooperative with no overt defects. Cardiac : NSR, but also noted some irregularities and pauses in rhythm during the night. Ordered an EKG which showed a sinus arrhythmia, otherwise normal. Hypertensive in the 160's while awake and moving. Normotensive during rest. Respiratory: 2L nasal cannula, good pulmonary hygiene , good airway protection. GI/: Received one does of lasix yesterday evening and diuresed w ell. 2 x soft formed bowel movements tonight. OOB to chair and commode with one assist, no complaints of pain, some tenderness in belly. Plan to transfer to the floor today. lan of [facility] [place] - Volodymyr Butcher RRT - 08/20/2017 3:35 AM PDTProblem: Patient Care Overview (Adult) Goal: Care Team Goals & Evaluation PROBLEM-RELATED GOALS: Patient oxygen saturation level will be titrated to keep sats >90% by 08/20/17.: Patient will be extubated by 08/20/2017---MET Patient will have no signs or symptoms of bleeding by 08/21/2017. Patient will not have any pressure ulcers during hospitalization Patient will not fall while hospitalized. Pt will report adequate pain control by 08/22/17 STRATEGY TO ACHIEVE GOALS: Will wean oxygen as tolerated keeping sats >90% Extubated 08/19--monitor Sats, WOB, ABGs--titrate O2 for SaO2 >90% Assess abdomen, particularly LUQ and RUQ. Monitor H/H. Medicate for pain as needed--prefer s tylenol OOB TID, begin progressive ambulation Fall precautions Outcome: Improving Goal Evaluation: Pt stable on 2 lpm NC overnight. Resp pattern is shallow w/ mild WO B this AM. BS diminished equal bilateral. Tx's given Q4H w/ Duoneb and BID pulmicort. Pt has a fair nonproductive cough. Plan to continue w/ current care. lan of [facility] - Dorcas Troncoso RN - 08/19/2017 6:10 PM PDTProblem: Patient Care Overview (Adult) Goal: Care Team Goals & Evaluation PROBLEM-RELATED GOALS: Patient will be extubated by 08/20/2017---MET Patient will have no signs or symptoms of bleeding by 08/21/2017. Patient will not have any pressure ulcers during hospitalization Patient will not fall while hospitalized. Pt will report adequate pain control by 08/22/17 STRATEGY TO ACHIEVE GOALS: Extubated 08/19--monitor Sats, WOB, ABGs--titrate O2 for SaO2 >90% Assess abdomen, particularly LUQ and RUQ. Monitor H/H. Medicate for pain as needed--prefer s tylenol OOB TID, begin progressive ambulation Fall precautions Outcome: Improving Goal Evaluation: Amy is hospital day 2 (3rd day intubated) s/p intra-abd bleed w/ coil embolization POD 1. Pulm: Extubated this am, currently on 2L / NC. Reports feeling SOB at rest though sats 99 -100%, RR 14-18. ABG this patel good, 7.36/44/91. Lungs clear, diminished throughout. No cough . Neuro: alert / oriented. Admits feeling anxious about breathing and what will happen when she goes home. Up at bedside with PT this am, ambulated in mancera 50 feet with RN this afterno on, well tolerated but hypertensive and anxious. Cardiac: has been off Levo since early am, BP up to 170's sys, started on Inderal 40 mg (home med for tremors) HR has slowed from ST 12 0's to SR 90. GI: started on clear liquids, some nausea. Good relief with zofran. Reports pa ssing some flatus. : Good uop, spont diuresis. Winter cath dc'd, check void by 2200. Social : family at bedside most of day. Pt did get 1.5 hour nap today. Plan: con't monitoring H/H, resp status. Provide blocks uninterrupted rest tonight. Possible transfer to floor in am. lan of Care - Jarocho Milan V, COMMERCIAL PHOTOGRAPHER - 08/19/2017 3:28 PM PDTProblem: Patient Care Overview (Adult) Goal: Care Team Goals & Evaluation PROBLEM-RELATED GOALS: Patient will be extubated by 08/20/2017 Patient will have no signs or symptoms of bleeding by 08/20/2017. Patient will not have any pressure ulcers during hospitalization Patient will not fall while hospitalized. STRATEGY TO ACHIEVE GOALS: Perform VAP protocol, extubate as quickly as possible. Assess abdomen, particularly LUQ and RUQ. Medicate for pain as needed. Turn every 2 hours, progress towards ambulation once extubated. Assess for falls RESTRAINT-RELATED GOALS: STRATEGIES TO ACHIEVE RESTRAINT GOALS: Outcome: Improving Goal Evaluation: Pt was extubated today, and states she is feeling better. Patient a ssessed with respiratory therapy. stable on low flow O2, distress only with exertion. Inha led meds given as ordered, pulmonary hygiene performed via deep breathing & coughing and pos tural drainage. Plan to continue current therapy. lan of Care - A maurilioSarah, PT - 08/19/2017 9:49 AM PDTPhysical Therapy Plan of Care Initial Evaluation Note Summary: Patient is a 62 year old female admitted with COPD with GI bleed, s/p coil emobil ization of R gastric artery on 08/18. At baseline, she is independent with ADLs and mobility, but has most recently only been able to walk ~150' around house before needing a rest break. She was extubated ~30 minutes prior to PT evaluation. Patient completed supine to sit with min A. She sat on edge of bed [id number] with some dizziness, which lessened over time. She c ompleted sit to stand, stand pivot transfer to bedside chair with 2 person min A for line carol pereira. She was fatigued and since recent extubation, therapy did not complete further mob ility at this time. Patient left sitting up in bedside chair with deep breathing exercises, RN aware. PT anticipates the patient will continue to improve mobility in order to DC home w ith family assist, but will continue to evaluate as she progresses with therapy. Further PT at DC pending progress as well. Physical Therapy will follow Amy shah (see comments) (5-6x/week) until di scharge from therapy or discharged from the hospital. Planned Interventions include balance training, bed mobility training, gait training, home exercise program, neuromuscular re-educ ation, patient/family education, postural re-education, stair training, strengthening, trans trupti training . Predicted Duration of Therapy Intervention (days): 2-5 days . Physical Therapy Discharge Recommendations are: Recommended discharge disposition: home with assist Post discharge physical therapy recommendation: other (see comments) (TBD pending progress ) Equipment Recommendations: none Equipment Issued: Onset of Illness/Injury: 08/16/17 Pertinent History of Current Problem: Patient is a 62 year old female admitted with COPD wi th GI bleed, s/p coil emobilization of R gastric artery on 08/18. PMHx: NSTEMI. See H&P for mo re details. Impairments Found: aerobic capacity/endurance, ergonomics and body mechanics, gait, locomot ion, and balance, ventilation and respiration/gas exchange General Information: Precautions Comment: Precautions: falls, oxygen therapy device and L/min, other (see comments) (puncture to R abdomen ) General Observations: Patient on supplemental O2 via nasal cannula Social History: Lives With: child(ana luisa), adult Living Arrangements: house # of Stairs to Enter Home: 6 ; Rail: Stair Railings at Home: inside, present on right side ; # of Stairs Within Home: 6 Additional Information: Lives in house with son and daughter in law with 2 sets of 6 stair s down to get to bottom apartment, or 15 steps down from inside the home with a few steps to enter. Family can assist at Dc Prior level of function: Completely independent with mobility, ADLs, gets assist for IADLs. Recently has only been walking 150' at a time before needing a rest break. Denies any falls in the last 6 months. Has a walk-in shower, no DME Current Pain: denies pain/discomfort Pain Body Location - Side: Left abdomen At Rest: 0 ; With Activity: Cognitive Exam: Comments: Speech: endotracheal tube, logical Orientation: disoriented to, time Attention: Arousal level: opens eyes spontaneously Behavior: anxious Follows instruction and answers questions: Personal Safety and Judgment: Patient Status/Goals: Reflects last filed data of patient status; may be from multiple contributors. ROM ROM Comments: LLE ROM: WFL RLE ROM: WFL Strength Strength Comments: LLE: Grossly 4+/5 throughout RLE: Grossly 4+/5 throughout Bed Mobility Utilizes: HOB elevated Supine to Sit: minimal assist (75% patient effort) Sit to Supine: not tested (left sitting up in chair ) Goal Status: new Level of Speer: independent Transfers Bed to Chair: minimal assist (75% patient effort), 2 person assist required Chair to Bed: minimal assist (75% patient effort), 2 person assist required Utilizing: other (see comments) (hand hold assist) Sit to Stand: contact guard assist Stand to Sit: contact guard assist Utilizing: none Status: new Speer Level: independent Gait Level of Assist: not tested Goal Status: new Goal: independent Device: none Distance: 150' Stairs Comments: STG Status: new Level of Speer: modified independent # of stairs: 6 Utilizes: 1 rail Balance Comments: Sitting Balance Static: good balance Dynamic: good balance Standing Balance Static: fair balance Dynamic: fair balance Electronically signed by: Sarah Acuña PT 08/19/2017 13:26 Thank you for requesting Acute Care Therapy Services to participate in the care of Amy Coleman . We appreciate the opportunity to be of assistance. lan of Care - [facility] claudia, Erasmo Edwards RN - 08/19/2017 5:33 AM PDTProblem: Patient Care Overview (Adult) Goal: Care Team Goals & Evaluation PROBLEM-RELATED GOALS: Patient will be extubated by 08/20/2017 Patient will have no signs or symptoms of bleeding by 08/20/2017. Patient will not have any pressure ulcers during hospitalization Patient will not fall while hospitalized. STRATEGY TO ACHIEVE GOALS: Perform VAP protocol, extubate as quickly as possible. Assess abdomen, particularly LUQ and RUQ. Medicate for pain as needed. Turn every 2 hours, progress towards ambulation once extubated. Assess for falls RESTRAINT-RELATED GOALS: STRATEGIES TO ACHIEVE RESTRAINT GOALS: Outcome: Improving Goal Evaluation: Neurological: Amy is alert and oriented, still intubated but able to communicate needs th rough writing. Lightly sedated on 10 Propofol and 50 Fentanyl. Resting well tonight with fam julito at bedside. Cardiac: Sinus tach in the 120's, up to 150 with activity. Sinus with no ect opy. Hypotensive requiring 6-8 mcg Levophed for support. Hemoglobin trending down, was 7.5 t his am. Receiving 1 unit PRBCs. Respiratory: Remained intubated overnight to rest, plan to e xtubate this AM. PSV last night was successful, performing another this morning. Copious ora l secretions, creamy white. GI/: Winter patency maintained, auto-diuresed 200-300 an hour f or a few hours and then trended down to 50-75 an hour. Bowel tones are faint with no BM la ght.Skin: Intact Infusions: Currently on Fentanyl 50 and levophed 8. lan [facility] Volodymyr Butcher RRT - 08/19/2017 3:43 AM PDTProblem: Patient Care Overview (Adult) Goal: Care Team Goals & Evaluation PROBLEM-RELATED GOALS: Patient will be extubated by 08/20/2017 Patient will have no signs or symptoms of bleeding by 08/20/2017. Patient will not have any pressure ulcers during hospitalization Patient will not fall while hospitalized. STRATEGY TO ACHIEVE GOALS: Perform VAP protocol, extubate as quickly as possible. Assess abdomen, particularly LUQ and RUQ. Medicate for pain as needed. Turn every 2 hours, progress towards ambulation once extubated. Assess for falls RESTRAINT-RELATED GOALS: STRATEGIES TO ACHIEVE RESTRAINT GOALS: Outcome: Improving Goal Evaluation: Patient remains intubated w/ 7.5 ET Tube placed at 23 cm at the ginger th, supported via conventional ventilator---SIMV 16 Vt 400 PS 8 40% Peep 5 . Pplat 17 and Cs t 39 this AM. see flow sheet for changes made this shift. Stable, no respiratory distress, good productive cough w/ sxn, secretions small to moderate overnight. BS clear and diminishe d, equal bilateral. Scheduled inhaled meds given as ordered, duonebs Q4H. Weaned as tolera calli. Plan to continue wean as tolerated lan Dorcas Small RN - 08/18/2017 7:51 PM PDTProblem: Patient Care Overview (Adult) Goal: Care Team Goals & Evaluation PROBLEM-RELATED GOALS: Patient will be extubated by 08/20/2017 Patient will have no signs or symptoms of bleeding by 08/20/2017. Patient will not have any pressure ulcers during hospitalization Patient will not fall while hospitalized. STRATEGY TO ACHIEVE GOALS: Perform VAP protocol, extubate as quickly as possible. Assess abdomen, particularly LUQ and RUQ. Medicate for pain as needed. Turn every 2 hours, progress towards ambulation once extubated. Assess for falls RESTRAINT-RELATED GOALS: STRATEGIES TO ACHIEVE RESTRAINT GOALS: Outcome: Improving Goal Evaluation: Amy is hospital day 1 here (day 3 intubation and lines) Taken to IR this afternoon for c oiling / embolization of gastric artery. RN, RT accompanied pt for 2 hour procedure, returne d to room stable condition. Able to wean off Levo during procedure, restarted after returned to room, currently at 4 mcg. Currently sedated on Fentanyl 100 mcg and propofol 30 (was on 75/15 pre procedure with good effect, sleeping when undisturbed) Neuro: intact / Judith. Able to write coherent notes and make needs known, Did not need wrist restraints. Cardiac: ST all day, up to 130-140 earlier, 105-110 post op while sleeping. Albumin 500 cc this am. Pulm: s table on vent, FiO2 40%, IMV 18, occ over breathing. GI: NPO. Address nutrition tomorrow. : winter, good uop after procedure. Social: daughter in law, grandson in room all day, update d. They are very supportive of pt. Plan: con't monitoring for s/s bleeding. Serial H/H cks. Spont breathing trial tonight, possible extubation tonight or in am. lan of Care - Armando Jones, COMMERCIAL PHOTOGRAPHER - 08/18/2017 5:53 PM PDTProblem: Patient Care Overview (Adult) Goal: Care Team Goals & Evaluation PROBLEM-RELATED GOALS: Patient will be extubated by 08/20/2017 Patient will have no signs or symptoms of bleeding by 08/20/2017. Patient will not have any pressure ulcers during hospitalization Patient will not fall while hospitalized. STRATEGY TO ACHIEVE GOALS: Perform VAP protocol, extubate as quickly as possible. Assess abdomen, particularly LUQ and RUQ. Medicate for pain as needed. Turn every 2 hours, progress towards ambulation once extubated. Assess for falls RESTRAINT-RELATED GOALS: STRATEGIES TO ACHIEVE RESTRAINT GOALS: Outcome: Unchanged Patient remains intubated, supported via conventional ventilator. no changes made this shif t. Distress only with interventions. Scheduled inhaled meds given as ordered. No weaning done this shift. Plan to continue current support Goal Evaluation: edation Documentatio emperatriz - Yael Menon, Technologist - 08/18/2017 4:11 PM PDTSuccessful embolization of gas tric artery branches with a Barricade coil and multiple doses of Rod 34 and Rod 18 liquid embolic. Sheath removed and 6 Fr Angioseal used to close groin access. Sterile dressing appl ied. lan of Samara - Ever Chicas RN - 08/18/2017 7:53 AM PDTProblem: Patient Care Overview (Adult ) Goal: Care Team Goals & Evaluation PROBLEM-RELATED GOALS: Patient will be extubated by 08/20/2017 Patient will have no signs or symptoms of bleeding by 08/20/2017. Patient will not have any pressure ulcers during hospitalization Patient will not fall while hospitalized. STRATEGY TO ACHIEVE GOALS: Perform VAP protocol, extubate as quickly as possible. Assess abdomen, particularly LUQ and RUQ. Medicate for pain as needed. Turn every 2 hours, progress towards ambulation once extubated. Assess for falls RESTRAINT-RELATED GOALS: STRATEGIES TO ACHIEVE RESTRAINT GOALS: Outcome: Unchanged Goal Evaluation: IR [id number] to determine source of LUQ hematoma. No bleed found, however multiple aneury sms found on gastric arteries (see IR note for more detail). Received 5L fluid + 6 unit RBC + 2 unit FFP + [facility]. Neuro: Drowsy, opens eyes to command. Movement to command. Communicates with family by w riting with finger on family's hand. Cardiac: Sinus rhythm/sinus tachycardia throughout shift. Varying amounts of vasopressors needed for BP support (levophed 0-10 mcg/min, vasopressin titrated off during IR). Respiratory: Arrived ventilated, SIMV withFiO2 now at 40%. GI: Hypoactive bowel tones. Endorses LUQ/RUQ pain, along with chronic lower back pain per family. : New winter catheter placed on unit. Adequate output, clear yellow urine with small ion unt of visible sediment Skin: No skin issues. Foam boots [facility] feet from [facility] facility. Pain: Able to rate pain by tapping hand on side of bed. Rates pain at 6/10. Daughter in law and grandson in room from [place]. lan of Samara - Caleb Forte RRT - 08/18/2017 4:11 AM PDTProblem: Mechanical Ventilation, Invasive (Adult) Prevent and manage potential problems includin. artificial airway induced skin/tissue br eakdown2. gastritis/stress ulcer3. immobility4. inability to wean5. malnutrition6. mechanica l dysfunction7. situational response8. ventilator- induced lung injury Goal: Signs and Symptoms of Listed Potential Problems Will be Absent or Manageable (Mechani patrick Ventilation, Invasive) Signs and symptoms of listed potential problems will be absent or manageable by discharge/t ransition of care (reference Mechanical Ventilation, Invasive (Adult) CPG). Patient intubated, supported via conventional ventilator. see flow sheet for changes made t his shift. Distress only with interventions. No inhaled meds given. No weaning done this shift. 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 Estimated Blood Loss: None Complications: None Specimens: None Ion Power MD edation Documentation - Merrick Gaines Instructional Coach - 08/18/2017 1:06 AM PDT6 Fr Angioseal used edation Documentation - Merrick Gaines Instructional Coach - 08/18/2017 1: 02 AM PDTSuccessful angiogram ,no angiographic evidence of active bleeding. Abnormal vascula ture . edation Documentation - Jennifer Jordan RN - 08/17/2017 11:57 PM PDTPt arrives from ICU o n monitor and vent per bed with FIELD SERVICE TECHNICIAN POULTRY and RT who will remain with pt to provide primary car e. documented in this enc ounter Plan of Treatment +--------+---------+ + + + | Date | Type | Specialty | Care Team | Description | +--------+---------+ + + + | 01/15/ | Office | Physical Medicine | Dick Maria, | | | 2019 | Visit | and Rehabilitation | MD Gisele Ram | | | | | | [place] | | | | | | [id number] | | | | | | | [...] | ECG 12 LEAD | Routin | 08/20/2017 | | | | | e | 2:03 PM | | | | | | [...] + + | TYPE AND SCREEN | Routin | 08/19/2017 | | | | | e | 4:10 AM | | | | | | PDT [...] + + | TYPE AND SCREEN | Routin | 08/18/2017 | | | | | e | 2:09 AM | | | | | | PDT [...] | | MEDICAL | | | | [facility] [address], | | CENTER | | | | [place] [address] | | LABORATORY | | | | [...] + + | GILBERTO NICHOLAS | [address] | [place] [address] | | | [facility] | | | | | LABORATORY CERNER | | | | + + + + + CBC no Differential (08/23/2017 4:15 AM PDT) + + + + + + | Component | Value | Ref Range | Performed | Pathologist | | | | | At | Signature | + + + + + + | White Blood | 8.1 | 3.8 - 11.0 K/uL | [facility] | | | Cells | | | [facility] | | | | | | HEART | | | | | | MEDICAL | | | | | | CENTER | | | | | | LABORATORY | | | | | | CERNER | | + + + + + + | Red Blood | 3.27 (L) | 3.70 - 5.10 | [facility] | | | Cells | | M/uL | SACRED | | [...] [facility] | | | | Performed by [facility] [address] | | SACRED | | | | [address] [place] | | HEART | | | | [address] | | MEDICAL | | | | [...] + + | [facility] | [address] | [place] [address] | | | [facility] | | | | | LABORATORY CERNER [...] | | MEDICAL | | | | [facility] [address], | | CENTER | | | | [place] [address] | | LABORATORY | | | | [...] + + | GILBERTO NICHOLAS | [address] | [place] [address] | | | [facility] | | | | | LABORATORY CERNER | | | | + + + + + CBC no Differential (08/22/2017 3:19 AM PDT) + + + +------- ------+ + | Component | Value | Ref Range | Perfor med | Pathologist | | | | | At | Signature | + + + +------- ------+ + | White Blood | 8.7 | 3.8 - 11.0 K/uL | [facility] | | | Cells | | | SACRED | | | | | | HEART | | | | | | MEDICA L | | | | | | CENTER | | | | | | LABORA TORY | | | | | | CERNER | | + + + +------- ------+ + | Red Blood | 3.34 (L) | 3.70 - 5.10 | [facility] | | | Cells | | M/uL | SACRED | | | | | | HEART | | | | | | MEDICA L | | | | | | CENTER | | | | | | LABORA TORY | | | | | | CERNER | | + + + +------- ------+ + | Hemoglobin | 10.5 (L) | 11.3 - 15.5 | [facility] [...] + +------- ------+ + | Hct | 29.7 (L) | [...] + +------- ------+ + | MCV | 89.1 | 80.0 - 100.0 fL | [facility] | | | | | | SACRED | | | | | | HEART | | | | | | MEDICA L | | | | | | CENTER | | | | | | LABORA TORY | | | | | | CERNER | | + + + +------- ------+ + | MCH | 31.6 | 27.0 - 34.0 pg | [facility] | | | | | | SACRED | | | | | | HEART | | | | | | MEDICA L | | | | | | CENTER | | | | | | LABORA TORY | | | | | | CERNER | | + + + +------- ------+ + | MCHC | 35.4 | 32.0 - 35.5 | [facility] | | | | | g/dL | SACRED | | | | | | HEART | | | | | | MEDICA L | | | | | | CENTER | | | | | | LABORA TORY | | | | | | CERNER | | + + + +------- ------+ + | RDW-CV | 13.7 | 11.0 - 15.5 % | [facility] | | | | | | SACRED | | | | | | HEART | | | | | | MEDICA L | | | | | | CENTER | | | | | | LABORA TORY | | | | | | CERNER | | + + + +------- ------+ + | Platelet | 197 | 150 - 400 K/uL | [facility] [...] + +------- ------+ + | MPV | 7.8Comment: Performed | 7.5 - 11.2 fL | [facility] | | | | by [facility] [address], | | SACRED | | | | [place] [address] | | HEART | | | |Performed by [facility] [address], [place] [address] | | MEDICA L | | | [...] + + | ANAODILIASneha YU | [address] | [place] [address] | | | [facility] | | | | | LABORATORY CERNER [...] [facility] | | | | Performed by [facility] [address] | | SACRED | | | | [address] [place] | | HEART | | | | [address] | | MEDICAL | | | | [...] SACRED | [address] | [place] [address] | | | [facility] | | | | | LABORATORY CLAUDIANER [...] [facility] | | | | Performed by [facility] [address] | | SACRED | | | | [address] [place] | | HEART | | | | [address] | | MEDICAL | | | | [...] [address] | [place] [address] | | | [facility] | | | | | LABORATORY AISSATOU | | | | + + + + + Red Blood Cells (PRBC) - Crossmatch and Hold (08/21/2017 2:48 AM PDT) + + + + + + | Component | Value | Ref Range | Performed | Pathologist | | | | | At | Signature | + + + + + + | Product | [id number] | | REFER[facility] | | | Code | | | [facility] | | | | | | [facility] | | | | | | [facility] | | | | | | BLOOD | | | | | | CENTER | | + + + + + + | UNIT # | [id number] | | REFERENCE | | | | | | LAB [place] | | | | | | [facility] | | | | | | [facility] | | | | | | BLOOD | | | | | | CENTER | | + + + + + + | UNIT ABO | O | | REFERENCE | | | | | | LAB [place] | | | | | | [facility] | | | | | | [facility] | | | | | | BLOOD | | | | | | CENTER | | + + + + + + | UNIT RH | POS | | REFERENCE | | | | | | LAB [place] | | | | | | [facility] | | | | | | [facility] | | | | | | BLOOD | | | | | | CENTER | | + + + + + + | Unit Status | IS | | REFERENCE | | | | | | [facility] [place] | | | | | | [facility] | | | | | | [facility] | | | | | | BLOOD | | | | | | CENTER | | + + + + + + | Blood | [id number] | | REFERENCE | | | Product | | | [facility] [place] | | | Expiration | | | [facility] | | | Date and | | | [facility] | | | Time | | | BLOOD | | | | | | CENTER | | + + + + + + | Product | [id number] | | REFERENCE | | | Blood Type | | | LAB [place] | | | Barcode | | | [facility] | | | | | | [facility] | | | | | | BLOOD | | | | | | CENTER | | + + + + + + | Product | [id number] | | REFERENCE | | | Code | | | LAB [place] | | | | | | [facility] | | | | | | [facility] | | | | | | BLOOD | | | | | | CENTER | | + + + + + + | UNIT # | [id number] | | REFERENCE | | | | | | LAB [place] | | | | | | [facility] | | | | | | [facility] | | | | | | BLOOD | | | | | | CENTER | | + + + + + + | UNIT ABO | O | | REFERENCE | | | | | | LAB [place] | | | | | | [facility] | | | | | | [facility] | | | | | | BLOOD | | | | | | CENTER | | + + + + + + | UNIT RH | POS | | REFERENCE | | | | | | LAB [place] | | | | | | [facility] | | | | | | [facility] | | | | | | BLOOD | | | | | | CENTER | | + + + + + + | Unit Status | RE | | REFERENCE | | | | | | LAB [place] | | | | | | [facility] | | | | | | [facility] | | | | | | BLOOD | | | | | | CENTER | | + + + + + + | Blood | [id number] | | REFERENCE | | | Product | | | LAB [place] | | | Expiration | | | [facility] | | | Date and | | | [facility] | | | Time | | | BLOOD | | | | | | CENTER | | + + + + + + | Product | [id number] | | REFERENCE | | | Blood Type | | | LAB [place] | | | Barcode | | | [...] + + + | Specimen Expiration Date: [id number] | REFERENCE LAB | | | [facility] [facility] | | | [facility] | | | BLOOD CENTER | + + + + + + + + | Performing | Address | City/State/Zipcode | Phone Number | | Organization | | | | + + + + + | REFERENCE LAB | [address] | [place] [address] | [phone] | | [facility] [facility] | | | | | [facility] [...] [facility] | | | | Performed by [facility] [address] | | SACRED | | | | [address] [place] | | HEART | | | | [address] | | MEDICAL | | | | [...] + + | GIL[facility]ERTO [facility] | [address] | [place] [address] | | | [facility] | | | | | [...] 3.4 (L)Comment: | 3.5 - 5.0 | GILBERTO | | | | Performed by [facility] [address] | mmol/L | SACRED | | | | [address], [place] | | HEART | | | | [address] | | MEDICAL | | | | [...] + + | ANAODILIASneha NICHOLAS | [address] | [place] [address] | | | [facility] | | | | | LABORATORY A[place] [...] [facility] | | | | Performed by [facility] [address] | mmol/L | SACRED | | | | [address] [place], [place] | | HEART | | | | [address] | | MEDICAL | | | | [...] + + | CH[facility] | [address] | [place] [address] | | | [facility] | | | | | [...] [facility] | | | | Performed by [facility] [address] | | SACRED | [...] GILBERTO SACRJAD | [address] | [place] [address] | | | HEART [facility] | | | | | [...] CENTER | | | | 3.5Performed by [facility] [address] | | LABORATORY | | | | [address], [place], [place] | | [place] | | | | [address] | | | | + + + + + + + + | Specimen | + + | Blood specimen | | (specimen) | + + + + + + + | Performing | Address | City/State/Zipcode | Phone Number | | Organization | | | | + + + + + | GILBERTO NICHOLAS | [address] | [place] [address] | | | [facility] | | | | | LABORATORY [place] [...] [facility] | | | Venous | by [place] [address], | mmol/L | SACRED | | | | [place] [address] | | HEART | | | |Performed by [facility] [address], [place] [address] | | MEDICAL | | | | [...] + + | GILBERTO NICHOLAS | [address] | [place] [address] | | | [facility] | | | | | LABORATORY CERNER [...] | | MEDICAL | | | | [facility] [address], | | CENTER | | | | [place] [address] | | LABORATORY | | | | [...] + + | GILBERTO NICHOLAS | [address] | [place] [address] | | | [facility] | | | | | CELESTE REYEZ | | | | + + + + + CBC with Differential (08/20/2017 4:14 AM PDT) + + + +------- ------+ + | Component | Value | Ref Range | Perfor med | Pathologist | | | | | At | Signature | + + + +------- ------+ + | White Blood | 10.2 | 3.8 - 11.0 K/uL | [facility] | | | Cells | | | SACRED | | | | | | HEART | | | | | | MEDICA L | | | | | | CENTER | | | | | | LABORA TORY | | | | | | CERNER | | + + + +------- ------+ + | Red Blood | 3.05 (L) | 3.70 - 5.10 | [facility] | | | Cells | | M/uL | SACRED | | [...] Ovalocytes | 1+Comment: Performed by | | [facility] | | | | [facility] [address], | | SACRED | | | | [place] [address] | | HEART | | | |Performed by [facility] [address], [place] [address] | | MEDICA L | | | | | | CENTER | | | | | | LABORA JENNIFFER | | | | | | CERNER | | + + + +------- ------+ + + + | Specimen | + + | Blood specimen | | (specimen) | + + + + + + + | Performing | Address | City/State/Zipcode | Phone Number | | Organization | | | | + + + + + | GILBERTO NICHOLAS | [address] | [place] [address] | | | [facility] | | | | | LABORATORY CERNER [...] | to document complete resolution. Signed by: Armando Stuart | | | | | + [...] | | | | | Signed by: Armando Stuart | + + + +---------+ + [...] | [facility] | | | | by [facility] [address], | mmol/L | SACRED | | | | [place] [address] | | HEART | | | |Performed by [facility] [address], [place] [address] | | MEDICAL | | | | [...] + + | [facility] | [address] | [place] | | | [facility] | | | | | LABORATORY CERNER [...] by | 65 - 99 mg/dL | GILBERTO | | | | [facility] [address], | | SACRED | | | | [place] | | HEART | | | |Performed by [facility] [address] [address] | | MEDICAL | | | | [...] + + | GILBERTO NICHOLAS | [address] | [place] [address] | | | [facility] | | | | | [...] (H) | 32 - 43 mmHg | ANAN [...] CE | | | ARTERIAL | by [facility] [address], | | SACRED | | | | [place] [address] | | HEART | | | |Performed by [facility] [address], [place] [address] | | MEDICAL | | | | [...] + + | [facility] | [address] | [place] [address] | | | [facility] | | | | | LABORATORY CERNER [...] [facility] | | | | Performed by [facility] [address] | | SACRED | | | | [address] [place], [place] | | HEART | | | | [address] | | MEDICAL | | | | [...] + + | GILBERTO NICHOLAS | [address] | [place] [address] | | | HEART [facility] | | | | | [...] CE | | | ARTERIAL | by [facility] [address], | | SACRED | | | | [place] [address] | | HEART | | | |Performed by [facility] [address], [place] [address] | | MEDICAL | | | | [...] + + | ANALENO NICHOLAS | [address] | [place] [address] | | | [facility] | | | | | LABORATORY [place] [...] + + + + + | [employer]U [employer] | <0.2 | 0.0 - 0.9 [...] ISIAH | | | | | | LabIraida Aparicio W | | | | | | [address] | | | | | | [place] | | | | | | [id number] David J | | | | | | Ph:[phone] | | | | + + + + + + + + | Specimen | + + | Blood specimen | | (specimen) | + + + + + + + | Performing | Address | City/State/Zipcode | Phone Number | | Organization | | | | + + + + + | GILBERTO NICHOLAS | [address] | [place] [address] | | | [facility] | | | | | LABORATORY [place] [...] [facility] | | | Arterial | by [place] [address], | mmol/L | SACRED | | | | [place] [address] | | HEART | | | |Performed by [place] [address] [address], [place] [address] | | MEDICAL | | | | [...] + + | GILBERTO NICHOLAS | [address] | [place] [address] | | | [facility] | | | | | LABORATORY [place] [...] CE | | | ARTERIAL | by [facility] [address], | | SACRED | | | | [place] [address] | | HEART | | | |Performed by [facility] [address], [place] [address] | | MEDICAL | | | | [...] + + | GILBERTO SACRJAD | [address] | [place] [address] | | | [facility] | | | | | [...] [facility] | | | | Performed by [facility] [address] | | SACRED | [...] | [address] | [place] [address] | | | HEART MEDICAL CENTER | [...] MEDICAL | | | | Performed by [facility] [address] | | CENTER | | | | [address] [place] | | LABORATORY | | | | [address] | | CERNER | | | | [...] + + | GILBERTO NICHOLAS | [address] | [place] [address] | | | [facility] | | | | | LABORATORY [place] [...] | | | Arterial | Performed by [facility] [address] | mmol/L | SACRED | | | | [address] [place] | | HEART | | | | [address] | | MEDICAL | | | | [...] + + | GILBERTO NICHOLAS | [address] | [place] [address] | | | [facility] | | | | | LABORATORY CERNER [...] 4.0Comment: Performed | 3.5 - 5.0 | GILBERTO | | | | by [facility] [address], | mmol/L | SACRED | | | | [place] | | HEART | | | |Performed by [facility] [address], [place] | | MEDICAL | | | [...] + + | [facility] | [address] | [place], [place] | | | HEART MEDICAL CENTER [...] | | | ARTERIAL | Performed by [facility] [address] | | SACRED | | | | [address] [place] | | HEART | | | | [address] | | MEDICAL | | | | [...] + + | ANAODILIASneha YU | [address] | [place] [address] | | | [facility] | | | | | LABORATORY CERNER [...] [facility] | | | | Performed by [facility] [address] | | SACRED | | | | [address] [place] | | HEART | | | | [address] | | MEDICAL | | | | [...] NICHOLAS | [address] | [place] [address] | | | [facility] | | | | | CELESTE [...] [facility] | | | Venous | by [facility] [address], | mmol/L | SACRED | | | | [place] | | HEART | | | |Performed by [facility] [address], [place] | | MEDICAL | | | [...] SACRED | [address] | [place], [place] | | | HEART MEDICAL CENTER [...] | | MEDICAL | | | | [facility] [address], | | CENTER | | | | [place] [address] | | LABORATORY | | | | [...] + + | GILBERTO SACRJAD | [address] | [place] [address] | | | [facility] | | | | | LABORATORY CERNER [...] 18.8 (L)Comment: | 30.0 - 100.0 | [facility] | | | 25 Hydroxy | Vitamin D deficiency has | ng/mL | [facility]ED | | | | been defined by the | | HEART | | | | [facility] | | MEDICAL | | [...] [facility] | | | | | | ([place] [facility]). | | | | | | 2009. Dietary reference | | | | | | intakes for calcium | | | | | | and D. Dang [place]: | | | | | [...] [facility] | | | | | | [address] | | | | | | [facility] [address] [place], [place] | | | | | | [phone] Daniel | | | | | | L Ph:[phone] | | | | + + + + + + + + | Specimen | + + | Blood specimen | | (specimen) | + + + + + + + | Performing | Address | City/State/Zipcode | Phone Number | | Organization | | | | + + + + + | GILBERTO NICHOLAS | [address] | [place] [address] | | | [facility] | | | | | LABORATORY CERNER [...] [facility] | | | Venous | by [facility] [address], | mmol/L | SACRED | | | | [place] [address] | | HEART | | | |Performed by [facility] [address], [place] [address] | | MEDICAL | | | | [...] + + | GILBERTO [facility]ED | [address] | [place] [address] | | | [facility] | | | | | LABORATORY CERNER | | | | + + + + + CBC with Differential (08/18/2017 11:28 PM PDT) + + + +------- ------+ + | Component | Value | Ref Range | Perfor med | Pathologist | | | | | At | Signature | + + + +------- ------+ + | White Blood | 11.8 (H) | 3.8 - 11.0 K/uL | [facility] | | | Cells | | | [facility] | | | | | | HEART | | | | | | MEDICA L | | | | | | CENTER | | | | | | LABORA TORY | | | | | | CERNER | | + + + +------- ------+ + | Red Blood | 2.45 (L) | 3.70 - 5.10 | [facility] | | | Cells | | M/uL | [facility] | | [...] Drop | 1+Comment: Performed by | | MIKE [facility] | | | Cells | [facility] [address], | | SACRED | | | | [place] | | HEART | | | |Performed by [facility] [address], [place], [place] | | MEDICA L | | [...] + + | GILBERTO SACR[facility] | [address] | [place] [address] | | | [facility] | [...] | [facility] | | | | by [facility] [address], | mmol/L | SACRED | | | | [place] [address] | | HEART | | | |Performed by [facility] [address], [place] [address] | | MEDICAL | | | | [...] + + | GILBERTO NICHOLAS | [address] | [place] [address] | | | [facility] | | | | | LABORATORY [place] [...] | | | Arterial | Performed by [facility] [address] | mmol/L | [facility] | | | | [address] | | HEART | | | | [address] | | MEDICAL | | | | [...] + + | GILBERTO NICHOLAS | [address] | [place] [address] | | | [facility] | [...] E | | | Normalized | by [facility] [address], | mg/dL | [facility] | | | | [place] [address] | | HEART | | | |Performed by [facility] [address], [place] [address] | | MEDICAL | | | | [...] + + + + + | GILBERTO YU | [address] | [place] [address] | | | [facility] | | | | | LABORATORY AISSATOU [...] 7.34 (L) | 7.37 - 7.47 | ANAN [...] 39 | 32 - 43 mmHg | ANAN [...] CE | | | ARTERIAL | by [facility] [address], | | SACRED | | | | [place] [address] | | HEART | | | |Performed by [facility] [address], [place] [address] | | MEDICAL | | | | [...] + + + + + | GILBERTO [facility] | [address] | [place] [address] | | | [facility] | | | | | LABORATORY CLAUDIANER [...] 3.1 (H)Comment: | 0.5 - 2.2 | PROVID[facility]IAE | | | Venous | Performed by [facility] [address] | mmol/L | [facility] | | | | [address], [place] | | HEART | | | | [address] | | MEDICAL | | | | [...] [address] | [place] [address] | | | [facility] | | | | | [...] | [facility] | | | | by [facility] [address], | | SACRED | | | | [place] [address] | | HEART | | | |Performed by [facility] [address], [place] [address] | | MEDICAL | | | | [...] sst | GILBERTO | | | [facility] | | | MEDICAL CENTER | | | LABORATORY | | | AISSATOU | + + + + + + + + | Performing | Address | City/State/Zipcode | Phone Number | | Organization | | | | + + + + + | GILBERTO NICHOLAS | [address] | [place] [address] | | | [facility] | [...] [facility] | | | | Performed by [facility] [address] | | SACRED | | | | [address] [place] | | HEART | | | | [address] | | MEDICAL | | | | [...] + | ANAODILIASneha NICHOLAS | [address] | [place] [address] | | | [facility] | | | | | CELESTE [...] Seldinger technique, a 6 | | | Romanian sheath was positioned into the right common femoral artery and | | | attached to a flush system. A 5 Romanian Scott 2 catheter was | | | then positioned through a 6 Romanian guiding catheter an utilized to | | [...] | Hemostasis was achieved with a 6 Romanian Angio-Seal device. | | | Maximum sterile [...] Procedure Note | + + | Avelino, Daniel Results In - 08/19/2017 9:47 AM PDT [...] | | standard Seldinger technique, a 6 Romanian sheath was positioned into | | the right common femoral artery and attached to a flush system. | | | | A 5 Romanian Scott 2 catheter was then positioned through a 6 Romanian | | guiding catheter an utilized to [...] performed. Hemostasis was achieved with a 6 Romanian | | Angio-Seal device. | | | [...] [facility] | | | | Performed by [facility] [address] | | SACRED | | | | [address] [place] | | HEART | | | | [address] | | MEDICAL | | | | [...] [facility]ED | [address] | [place] [address] | | | [facility] | [...] | | | Venous | Performed by [facility] [address] | mmol/L | [facility] | | | | [address], [place] | | HEART | | | | [address] | | MEDICAL | | | | [...] + + | ANAODILIASneha YU | [address] | [place] [address] | | | [facility] | | | | | CELESTE [...] | | | Normalized | Performed by [facility] [address] | mg/dL | [facility] | | | | [address] [place] | | HEART | | | | [address] | | MEDICAL | | | | [...] + + | ANAODILIASneha NICHOLAS | [address] | [place] [address] | | | [facility] | | | | | LABORATORY AISS[place] [...] | [facility] | | | | by [facility] [address], | mmol/L | SACRED | | | | [place] [address] | | HEART | | | |Performed by [facility] [address], [place] [address] | | MEDICAL | | | | [...] + + + + + | GILBERTO SACR | [address] | [place] [address] | | | [facility] | | | | | LABORATORY CERNER [...] GILBERTO | | | | Performed by [facility] [address] | | SACRED | | | | [address], [place] | | HEART | | | | [address] | | MEDICAL | | | | [...] + + | GILBERTO NICHOLAS | [address] | [place] [address] | | | [facility] | | | | | LABORATORY AISSAT[place] [...] ANAN CE | | | | by [facility] [address], | | SACRED | | | | [place] [address] | | HEART | | | |Performed by [facility] [address], [place] [address] | | MEDICAL | | | | [...] [facility]CRED | [address] | [place] [address] | | | [facility] | [...] [facility] | | | | Performed by [facility] [address] | | SACRED | | | | [address], [place] | | HEART | | | | [address] | | MEDICAL | | | | [...] [address] | [place] [address] | | | [facility] | | | | | LABORATORY CERNER [...] | | | REPORT | Performed by [facility] [address] | | SACRED | | | | [address], [place] | | HEART | | | | [address] | | MEDICAL | | | | [...] + + | ANAODILIASneha NICHOLAS | [address] | [place] [address] | | | [facility] | | | | | LABORATORY CERNER [...] | | | REPORT | Performed by [facility] [address] | | SACRED | | | | [address], [place] | | HEART | | | | [address] | | MEDICAL | | | | [...] [address] 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 Procedure Type of Study TTE procedure: [...] Atrium Left Ventricle EF | | | Lkbvwgxlg76% | | | Electronically signed by Mara [...] | | | | | | EF Prkothggb39% | | | | | + + --+ + + | Procedure Note | + + | Daniel You Results In - 08/18/2017 11:38 AM PDT Transthoracic Echocardiography Report | | (TTE) Demographics Patient Name MARCELLA MONTAÑO I Room Number 258 Patient | | Number [id number] Date of Study 08/18/2017 Visit Number [id number] | | Referring Physician BRI Sánchez Date of | | 1955 [employer] Julien Zamora Age 62 year(s) | | Interpreting [facility] [employer] Mate M | | Mara Patton MD Gender | | Female Nurse Stress TechnicianProcedureType of | | Study TTE procedure: ECHO Complete, Add-on Items, COLOR DOPPLER, COMPLETE | | DOPPLER.Procedure dateDate: 08/18/2017Start: 07:21 AMTechnical Quality: Adequate | | visualizationStudy Location: PortableIndications: CARDIOMYOPATHY 425.4/ I42.9.Patient | | Status: RoutineHeight: 63 [...] Left Atrium Left Ventricle EF | | Sjgqrqgrx39% | |Conclusions | |Summary | |1. Small [...] Left Ventricle | | | | EF Hlizziqmp37% | + + + +---------+ + + [...] | | | Arterial | Performed by [facility] [address] | mmol/L | [facility] | | | | [address], [place] | | HEART | | | | [address] | | MEDICAL | | | | [...] | [address] | [place] [address] | | | [facility] | [...] E | | | Normalized | by [facility] [address], | mg/dL | SACRED | | | | [place] [address] | | HEART | | | |Performed by [facility] [address], [place] [address] | | MEDICAL | | | | [...] + + | GILBERTO NICHOLAS | [address] | [place] [address] | | | [facility] | | | | | LABORATORY CERNER [...] GILBERTO | | | | Performed by [facility] [address] | | SACRED | | | | [address], [place] | | HEART | | | | [address] | | MEDICAL | | | | | | CENTER | | | | | | LABORATORY | | | | | | CLAUDIANER | | + + + + + + + + | Specimen | + + | Blood specimen | | (specimen) | + + + + + + + | Performing | Address | City/State/Zipcode | Phone Number | | Organization | | | | + + + + + | GILBERTO NICHOLAS | [address] | [place] [address] | | | [facility] | | | | | CELESTE [...] CE | | | ARTERIAL | by [facility] [address], | | SACRED | | | | [place] | | HEART | | | |Performed by [facility] [address], [place] | | MEDICAL | | | [...] + + | [facility] | [address] | [place], [place] | | | HEART [facility] | | | | | LABORATORY CERNER | | | | + + + + + CBC no Differential (08/18/2017 5:23 AM PDT) + + + +------- ------+ + | Component | Value | Ref Range | Perfor med | Pathologist | | | | | At | Signature | + + + +------- ------+ + | White Blood | 19.6 (H) | 3.8 - 11.0 K/uL | [facility] | | | Cells | | | SACRED | | | | | | HEART | | | | | | MEDICA L | | | | | | CENTER | | | | | | MADELAINEA JENNIFFER | | | | | | CERNER | | + + + +------- ------+ + | Red Blood | 3.71 | 3.70 - 5.10 | [facility] | | | Cells | | M/uL | SACRED | | | | | | HEART | | | | | | MEDICA L | | | | | | CENTER | | | | | | LABORA TORY | | | | | | CERNER | | + + + +------- ------+ + | Hemoglobin | 11.4 | 11.3 - 15.5 | [facility] | | | | | g/dL | SACRED | | | | | | HEART | | | | | | MEDICA L | | | | | | CENTER | | | | | | LABORA TORY | | | | | | CERNER | | + + + +------- ------+ + | Hct | 32.5 (L) | [...] + +------- ------+ + | MCV | 87.7 | 80.0 - 100.0 fL | [facility] | | | | | | SACRED | | | | | | HEART | | | | | | MEDICA L | | | | | | CENTER | | | | | | LABORA TORY | | | | | | CERNER | | + + + +------- ------+ + | MCH | 30.8 | 27.0 - 34.0 pg | PROVID [...] + +------- ------+ + | Platelet | 159 | 150 - 400 K/uL | PROVID [...] + +------- ------+ + | MPV | 8.6Comment: Performed | 7.5 - 11.2 fL | [facility] | | | | by [facility] [address], | | SACRED | | | | [place] [address] | | HEART | | | |Performed by [facility] [address], [place] [address] | | MEDICA L | | | [...] + + | [facility] | [address] | [place] [address] | | | [facility] | | | | | LABORATORY CERNER [...] | | LABORATORY | | | | [facility] [address], | | [place] | | | | [place] [address] | | | | + + + + + + + + | Specimen | + + | Blood specimen | | (specimen) | + + + + + + + | Performing | Address | City/State/Zipcode | Phone Number | | Organization | | | | + + + + + | GILBERTO NICHOLAS | [address] | [place] [address] | | | [facility] | | | | | CELESTE [...] PROVIDE NCE | | | | by [place] [address], | | SACRED | | | | [place] [address] | | HEART | | | |Performed by [facility] [address], [place] [address] | | MEDICAL | | | | [...] + + | GILBERTO NICHOLAS | [address] | [place] [address] | | | [facility] | | | | | LABORATORY AISSATOU [...] YUNIOR CE | | | | by [facility] [address], | | SACRED | | | | [place] [address] | | HEART | | | |Performed by [facility] [address], [place] [address] | | MEDICAL | | | | [...] + + | [facility] | [address] | [place] [address] | | | [facility] | | | | | [...] | | MEDICAL | | | | [facility] [address], | | CENTER | | | | [place] [address] | | LABORATORY | | | | [...] + | GILBERTO NICHOLAS | [address] | [place] [address] | | | [facility] | | | | | CELESTE [...] | CHAVEZ E | | | | [facility] [address], | | SACRED | | | | [place] [address] | | HEART | | | |Performed by [facility] [address], [place] [address] | | MEDICAL | | | | [...] + + | [facility] | [address] | [place] [address] | | | [facility] | | | | | [...] + + + + + + | Color, | Light Yellow | | [facility] | | | Urine | | | SACRED | | | | | | HEART | | | | | | MEDICAL | | | | | | CENTER | | | | | | LABORATORY | | | | | | CERNER | | + + + + + + | Clarity, | Clear | | [facility] | | | Urine | [...] - 1.030 | [facility] | | | [place], | | | SACRED | | | [...] + + + + + + | Squamous | Not Clinically | | [facility] | | | Epithelial | Significant | | [facility] | | | Cells, | | | HEART | | | Urine | | | MEDICAL | | | | | | CENTER | | | | | | LABORATORY | | | | | | CERNER | | + + + + + + | White Blood | 1 | 0 - 5 /hpf | [facility] | | | Cells, | | | SACRED | | | Urine | | | HEART | | | | | | MEDICAL | | | | | | CENTER | | | | | | LABORATORY | | | | | | CERNER | | + + + + + + | Red Blood | 3 | 0 - 5 | [facility] | | | Cells, | | | SACRED | | | Urine | | | HEART | | | | | | MEDICAL | | | | | | CENTER | | | | | | LABORATORY | | | | | | CERNER | | + + + + + + | Bacteria, | None Seen | | [facility] | | | Urine | | | SACRED | | | | | | HEART | | | | | | MEDICAL | | | | | | CENTER | | | | | | LABORATORY | | | | | | CERNER | | + + + + + + | Amorphous | None Present | | [facility] | | | Crystals, | | | SACRED | | | Urine | | | HEART | | | | | | MEDICAL | | | | | | CENTER | | | | | | LABORATORY | | | | | | CERNER | | + + + + + + | Mucus, | Present | | [facility] | | | Urine | [...] | | | SOURCE | Performed by [facility] [address] | | SACRED | | | | [address] [place] | | HEART | | | | [address] | | MEDICAL | | | | [...] + + | GILBERTO NICHOLAS | [address] | [place] [address] | | | [facility] | | | | | LABORATORY CERNER | | | | + + + + + CBC no Differential (08/18/2017 2:09 AM PDT) + + + +------- ------+ + | Component | Value | Ref Range | Perfor med | Pathologist | | | | | At | Signature | + + + +------- ------+ + | White Blood | 19.0 (H) | 3.8 - 11.0 K/uL | [facility] | | | Cells | | | SACRED | | | | | | HEART | | | | | | MEDICA L | | | | | | CENTER | | | | | | LABORA TORY | | | | | | CERNER | | + + + +------- ------+ + | Red Blood | 3.83 | 3.70 - 5.10 | [facility] | | | Cells | | M/uL | SACRED | | | | | | HEART | | | | | | MEDICA L | | | | | | CENTER | | | | | | LABORA TORY | | | | | | CERNER | | + + + +------- ------+ + | Hemoglobin | 11.6 | 11.3 - 15.5 | [facility] | | | | | g/dL | SACRED | | | | | | HEART | | | | | | MEDICA L | | | | | | CENTER | | | | | | LABORA TORY | | | | | | CERNER | | + + + +------- ------+ + | Hct | 33.4 (L) | [...] + +------- ------+ + | MCV | 87.4 | 80.0 - 100.0 fL | [facility] | | | | | | SACRED | | | | | | HEART | | | | | | MEDICA L | | | | | | CENTER | | | | | | LABORA TORY | | | | | | CERNER | | + + + +------- ------+ + | MCH | 30.3 | 27.0 - 34.0 pg | [facility] | | | | | | SACRED | | | | | | HEART | | | | | | MEDICA L | | | | | | CENTER | | | | | | LABORA TORY | | | | | | CERNER | | + + + +------- ------+ + | MCHC | 34.7 | 32.0 - 35.5 | [facility] | | | | | g/dL | SACRED | | | | | | HEART | | | | | | MEDICA L | | | | | | CENTER | | | | | | LABORA TORY | | | | | | CERNER | | + + + +------- ------+ + | RDW-CV | 14.7 | 11.0 - 15.5 % | [facility] | | | | | | SACRED | | | | | | HEART | | | | | | MEDICA L | | | | | | CENTER | | | | | | LABORA TORY | | | | | | CERNER | | + + + +------- ------+ + | Platelet | 147 (L) | [...] + +------- ------+ + | MPV | 7.8Comment: Performed | 7.5 - 11.2 fL | [facility] | | | | by [facility] [address], | | SACRED | | | | [place] [address] | | HEART | | | |Performed by [facility] [address], [place] [address] | | MEDICA L | | | [...] + + | ANALENO NICHOLAS | [address] | [place] [address] | | | [facility] | | | | | LABORATORY A[place]AT[place] [...] [facility] | | | Source | by [facility] [address], | | SACRED | | | | [place] [address] | | HEART | | | |Performed by [facility] [address], [place] [address] | | MEDICAL | | | | [...] + + | ANAODILIASneha NICHOLAS | [address] | [place] [address] | | | [facility] | | | | | CELESTE [...] and a short | | | 5 Romanian vascular sheath was placed. A 5 Romanian Scott 1 catheter | | | was [...] Note | + + | Daniel You Results In - 08/18/2017 2:18 PM PDT [...] performed and a short | | 5 Romanian vascular sheath was placed. A 5 Romanian Scott 1 catheter | | was formed [...] | | | | | Signed by: SeMD galarza Cameron | + + + +---------+ + + | Performing | Address | City/State/Zipcode | Phone Number | | Organization | | | | + +---------+ + + | [facility] | | | | + +---------+ + + KODAK Miller (P) (08/17/2017 10:41 PM PDT) + + + [...] | | | | | seconds.Performed by [facility] | | | | | | [address], | | | | | | [place] [address] | | | | + + + + + + + + | Specimen | + + | Blood specimen | | (specimen) | + + + + + + + | Performing | Address | City/State/Zipcode | Phone Number | | Organization | | | | + + + + + | GILBERTO NICHOLAS | [address] | [place] [address] | | | [facility] | | | | | CELESTE [...] | | | Normalized | Performed by [facility] [address] | mg/dL | SACRED | | | | [address] [place] | | HEART | | | | [address] | | MEDICAL | | | | [...] + + | ANAODILIASneha YU | [address] | [place] [address] | | | [facility] | | | | | CELESTE [...] | [facility] | | | | by [facility] [address], | mmol/L | SACRED | | | | [place] [address] | | HEART | | | |Performed by [facility] [address], [place] [address] | | MEDICAL | | | | [...] + + | GILBERTO NICHOLAS | [address] | [place] [address] | | | [facility] | | | | | LABORATORY CERNER [...] | [facility] | | | | by [facility] [address], | mmol/L | SACRED | | | | [place] [address] | | HEART | | | |Performed by [facility] [address], [place] [address] | | MEDICAL | | | | [...] + + | GILBERTO NICHOLAS | [address] | [place] [address] | | | [facility] | | | | | LABORATORY CERNER [...] GILBERTO | | | | Performed by [facility] [address] | | SACRED | | | | [address], [place] | | HEART | | | | [address] | | MEDICAL | | | | [...] + + | GILBERTO NICHOLAS | [address] | [place] [address] | | | [facility] | | | | | CELESTE [...] 7.33 (L) | 7.37 - 7.47 | ANAN [...] 35 | 32 - 43 mmHg | ANAN [...] Performed | 92.0 - 99.0 % | [facility] | | | ARTERIAL | by [facility] [address], | | SACRED | | | | [place] | | HEART | | | |Performed by [facility] [address], [place] | | MEDICAL | | | [...] NICHOLAS | [address] | [place] [address] | | | HEART [facility] | | | | | [...] PROVIDE NCE | | | | by [facility] [address], | | SACRED | | | | [place] | | HEART | | | |Performed by [facility] [address], [place] [address] | | MEDICAL | | | | [...] + + | GILBERTO NICHOLAS | [address] | [place] [address] | | | [facility] | | | | | LABORATORY [place] [...] | | | | | | LAB [place] | | | | | | [facility] | | | | | | [facility] | | | | | | BLOOD | | | | | | CENTER | | + + + + + + | Rh Type | Positive | | REFERENCE | | | | | | LAB [place] | | | | | | [facility] | | | | | | [facility] | | | | | | BLOOD | | | | | | CENTER | | + + + + + + + + | Specimen | + + | | + + + + + | Narrative | Performed At | + + + | Specimen Expiration Date: [id number] | [facility] | | | [place] [facility] | | | [facility] | | | [facility] | + + + + + + + + | Performing | Address | City/State/Zipcode | Phone Number | | Organization | | | | + + + + + | REFERENCE [facility] | [address] | [place] [address] | [phone] | | [place] [facility] | | | | | [facility] [...] Performed | 1.7 - 2.4 mg/dL | [facility] | | | | by [facility] [address], | | SACRED | | | | [place] [address] | | HEART | | | |Performed by [facility] [address], [place] [address] | | MEDICAL | | | | [...] + + | GILBERTO NICHOLAS | [address] | [place] [address] | | | [facility] | | | | | LABORATORY CERNER [...] | | MEDICAL | | | | [facility] [address], | | CENTER | | | | [place] [address] | | LABORATORY | | | | | | CERNER | | + + + + + + + + | Specimen | + + | Blood specimen | | (specimen) | + + + + + + + | Performing | Address | City/State/Zipcode | Phone Number | | Organization | | | | + + + + + | ANALENO SAENZJAD | [address] | [place] [address] | | | [facility] | | | | | CELESTE [place]Z | | | | + + + + + CBC with Differential (08/17/2017 10:35 PM PDT) + + + +------- ------+ + | Component | Value | Ref Range | Perfor med | Pathologist | | | | | At | Signature | + + + +------- ------+ + | White Blood | 18.5 (H) | 3.8 - 11.0 K/uL | [facility] | | | Cells | | | SACRED | | | | | | HEART | | | | | | MEDICA L | | | | | | CENTER | | | | | | LABORA TORY | | | | | | CERNER | | + + + +------- ------+ + | Red Blood | 3.83 | 3.70 - 5.10 | [facility] | | | Cells | | M/uL | SACRED | | [...] ENCE | | | Basophils | by [facility] [address], | K/uL | SACRED | | | | [place] [address] | | HEART | | | |Performed by [facility] [address], [place] [address] | | MEDICA L | | | [...] + + | GILBERTO NICHOLAS | [address] | [place] [address] | | | [facility] | | | | | [facility] [place] [...] | | | | | | [facility] | | | | | | [facility] | | | | | | [facility] | | | | | | [facility] | | | | | | [facility] | | + + + + + + | Rh Type | PositiveComment: Patient | | REFERENCE | | | | is remote crossmatch | | [facility] | | | | eligible | | [facility] | | | | | | [facility] | | | | | | [facility] | | | | | | [facility] | | + + + + + + | Antibody | Negative | | REFERENCE | | | Screen | | | [facility] | | | | | | [facility] [...] + + + | Specimen Expiration Date: [id number] | REFERENCE LAB | | | [facility] | | | [facility] | | | [facility] | + + + + + + + + | Performing | Address | City/State/Zipcode | Phone Number | | Organization | | | | + + + + + | REFERENCE LAB | [address] | [place] [address] | [phone] | | [facility] | | | | | [facility] [...] | mL/hr | | | Hours, ONCE, [facility] 08/18/17 at 0830, | | AM PDT [...] | | | | | | Starting [facility] 08/18/17 at 0508 | | | [...] | | | (after last modification) on [facility] | | | | | | [...] | | | | | | | VQOBtxjdctllr-ekuuyzuakzk-ycskwdx | | | | | | | [...] | | First dose on 08/22/17 at 2100 | | PM PDT | [...] | | | | < 4.75, Starting [facility] 08/18/17 at | | | | [...] | | | | | Eyes, Starting Tue08/19/17 at | | | | | | [...] mcg | | | | injection Starting 08/17/17 at | | 18 10:10 | | [...] | | | | | 08/17/17 at 2315 | | | | | [...] | | Minutes, DAILY, First dose on Tue | | | [...] 5 mLs | | | | Starting Johana 08/18/17 at 0003 | | 18 12:03 | | | | | | | AM PDT | | | | + +-------+ +-------+---+---+ +---+---+ | | | +---+---+ + +-------+ +-------+---+ + | lidocaine 1% injection PRN, | Given | 08/19/19 | 5 mLs | | Other | | Starting Johana 08/18/17 at 1520 | | 18 3:20 [...] 4:04 | | | | | Starting Tue08/18/17 at 1450 | | PM PDT | | | | + +-------+ +------+---+---+ +-------+ +------+---+---+ | Given | 08/19/19 | 1 mg | | | | | 18 2:50 | | | | | | PM PDT | | | | +-------+ +------+---+---+ +---+---+ | | | +---+---+ + +-------+ +---+---+---+ | [id number]-keaklzwfc-yqvdesgekl | Given | 08/20/19 | | | | | (NEOSPORIN) [phone] ointment | | 18 4:00 | | | | | Starting 08/19/17 at 1612, For | | PM PDT | | | | | [address] : | | | | | | | jingt override, | | | | | | + [...] | 08/22/17 at 0900, Do not cut | | [...] | | | | | | Starting [facility] 08/18/17 at 0616, | | | [...] | | | | | TITRATED, Starting [facility] 08/18/17 at | | | | [...]
--- OUTSIDE RECORDS SUMMARY | ~2019-12-20 | XMS | Encounter Summary ---
Demographics + + + | Address | [address] | | | [place] [address] | + + + | Home Phone | | + + + | Preferred Language | Unknown | + + + | Marital Status | | + + + | Pentecostal Affiliation | 1028 | + + + | Race | White | + + + | Ethnic Group | Not or | + + + Author + + + | Author | [facility] | | | and [place] | + + + | Organization | [facility] | | | and [place] | + + + | Address | Unknown | + + + | Phone | Unavailable | + + + Support + + + + + | Name | Relationship | Address | Phone | + + + + + | Joseluis Desai | [address] | [place] | | | | | [address] | | + + + + + | Mila Desai | ECON | Unknown | | + + + + + Care Team Providers + +------+ + | Care Online Editor Name | Role | Phone | + [...] | | | [address] | [place] [address] | | | | | [place] [address] | | | | | | [phone] | | | +--------+ + + + [...] [place] | | | | | | [id number] | | | | | | | | +--------+---------+ + + + documented as of this encounter Procedures + +--------+ + + + | Procedure Name | Priori | Date/Time | Associated Diagnosis | Comments | | | ty | | | | + +--------+ + + + | CT ANGIOGRAM | Routin | 08/17/2017 | | Results for this | | PULMONARY | e | 2:40 PM | | procedure are in the | | | | PDT | | results section. | + +--------+ + + + documented in this encounter Results CT Angiogram Pulmonary (08/17/2017 2:40 PM PDT) + + | Specimen | [...]
--- OUTSIDE RECORDS SUMMARY | ~2019-12-20 | XMS | Encounter Summary ---
Demographics + + + | Address | [address] | | | [place] [address] | + + + | Home Phone | | + + + | Preferred Language | Unknown | + + + | Marital Status | | + + + | Mormon Affiliation | 1028 | + + + | Race | White | + + + | Ethnic Group | Not or | + + + Author + + + | Author | [facility] | | | and [place] | + + + | Organization | [facility] | | | and [place] | + + + | Address | Unknown | + + + | Phone | Unavailable | + + + Support + + + + + | Name | Relationship | Address | Phone | + + + + + | Joseluis Desai | [address] | [place] | | | | | [address] | | + + + + + | Mila Desai | ECON | Unknown | | + + + + + Care Team Providers + +------+ + | Care Merchandising Representative Name | Role | Phone | + [...] | | | [address] | [place] [address] | | | | | [place] [address] | | | | | | [phone] | | | +--------+ + + + [...] [place] | | | | | | [id number] | | | | | | | [...]
--- OUTSIDE RECORDS SUMMARY | ~2019-12-20 | XMS | Encounter Summary ---
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 | | | | | | | [...] + + | 05/08/ | Hospital | [facility] | Orlando Wall MD | Chronic obstructive | | 2018 - | Encounter | MED CTR ICU [address] | pulmonary disease, | | | | [address], | [place], [place] | unspecified COPD | | 05/11/ | | [place] [address] | [address] | type ([facility]); Acute on | | 2018 | | [phone] | | chronic respiratory | | | | | Marcio Boone, | failure with | | | | | MD Narcisa [address] | hypoxia and | | | | | [address] [place] | hypercapnia ([facility]); | | | | | [place] [address] | NSTEMI (non-ST | | | | | [phone] | elevated myocardial | | | | | | infarction) ([facility]); | | | | | | Non-ST elevation | | | | | | myocardial | | | | | | infarction (NSTEMI), | | | | | | type 2 ([facility]) | +--------+ + + + + Social [...] might be differ ent from the original. [place] HOSPITALIST DISCHARGE SUMMARY Pt. Name/Age/: Amy [...] on discharge day PROCEDURES AND CONSULTS: Procedures [facility] CORONARY ANGIOGRAPHY DOMINANCE: Right LEFT MAIN ARTERY: [...] week. Specialty: Internal Medicine Contact information: [address] [facility] [address] [place] [address] Demarcus Jurado MD In 3 weeks. Specialty: Gastroenterology Contact information: [address], [address] [facility] [id number] Condition: Patient being discharged with condition improved Diet: low salt low fat Greater than 30 minutes were spent on discharge and coordination of post-hospital care. Electronically signed by: Narcisa Boone MD, 05/11/2017 7:41 [facility] Portions of this chart may have been created with [employer] voice recognition software. Occasi onal wrong-word or sound-alike substitutions may have occurred due to the inherent lobo itations of voice recognition software. Please read the chart carefully and recognize, using context, where these substitutions have occurred documented in this encounter Discharge Instructions Instructions Narcias Sanchez MD - 05/11/2017 COPD Flare You [...] worse Dizziness or weakness Date Last Reviewed: 11/13/201519997007-9660 [employer]. [address] [place] [address]. All righ ts reserved. This information is not intended as a substitute for professional medical care. Always follow your healthcare professional's instructions. AttachmentsThe following attachments cannot be sent through Care Everywhere.Kicking the Smo miguel Habit (Guamanian)Coronary Artery Disease (CAD), Understanding (Guamanian)documented in this encounter Medications at Time of [...] the above and all questions were answered. [facility] will follow-up with patient in [...] with me around the the nurse station emmonak without any supplemental oxygen, h er SpO2 [...] remained > 93%. No SOB observed pt [facility] ed when asked if she was SOB. H/R remained in low 80's, respirations 18 to 20. Electronicall y signed by Carmelita Fulton RRT at 05/11/2017 10:37 AM Narcisa Bojorquez MD - 05/10/2017 7:23 AM PST [facility] [place] HOSPITALIST PROGRESS NOTE Patient: Amy Coleman : 1955: Age: 61 y.o. MedRec: [id number] Admission date: 05/08/2017 Hospital day # : [...] leads V4-6 Confirmed by GEORGES HU, LUCIO ([id number]) on 05/10/2017 7:08:38 AM POC Glucose Collection [...] Procedure Component Value Units Date/Time Culture, Blood [[id number]] (Normal) Collected: 05/08/17 0145 Order Status: Completed Lab Status: Preliminary result Updated: 05/08/171400 Specimen: Blood from Line Culture No growth: Monitored continually by instrument for 5 days Culture, Blood [[id number]] (Normal) Collected: 05/08/17 0119 Order Status: Completed Lab Status: Preliminary result Updated: 05/08/171400 Specimen: Blood from Peripheral Blood Culture No growth: Monitored continually by instrument for 5 days Culture, MRSA [[id number]] Collected: 05/08/17 0032 Order Status: Completed Lab [...] 24-48 hrs Narcisa Boone MD 05/10/2017 7:23 [facility] Portions of this chart may have been created with [employer] voice recognition software. Occasi onal wrong-word or [...] ECGs available Confirmed by GEORGES HU, LUCIO ([id number]) on 05/08/2017 8:24:47 AM LVEF-TTE TRANSTHORACIC ECHO [...] lead V2 Confirmed by GEORGES HU, LUCIO ([id number]) on 05/09/2017 7:21:00 AM MG 05/08/2017 2.3 [...] Bojorquez MD - 05/09/2017 7:18 AM PST [place] HOSPITALIST PROGRESS NOTE Patient: Amy Coleman : 1955: Age: 61 y.o. MedRec: [id number] Admission date: 05/08/2017 Hospital day # : [...] 1616 sodium chloride 0.9% (NS) infusion Intravenous Valving Machine Operator Johnny Luther MD sodium chloride [...] Procedure Component Value Units Date/Time Culture, Blood [[id number]] (Normal) Collected: 05/08/17 0145 Order Status: Completed Lab Status: Preliminary result Updated: 05/08/171400 Specimen: Blood from Line Culture No growth: Monitored continually by instrument for 5 days Culture, Blood [[id number]] (Normal) Collected: 05/08/17 0119 Order Status: Completed Lab Status: Preliminary result Updated: 05/08/171400 Specimen: Blood from Peripheral Blood Culture No growth: Monitored continually by instrument for 5 days Culture, MRSA [[id number]] Collected: 05/08/172 Order Status: Sent Lab Status: [...] reports feeling 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 Occasi onal wrong-word or [...] bottles X Pharmacy list names: [facility] [place] X Outside Information Vaccines up to date? 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 female who is admitted for Respiratory failure (HCC) [J96.90]. Spiritual Assessment: Patient was intubated at the time of visit. Kywgvdtl-ky-elo, Raciel, was present and she reported that she is very close to the patient. She and the patient has discussed EOL toget her in the Gmxsocdi-db-wsj is hoping for recovery for patient. Spiritual [...] can't relax until she knows h er fcgtzn-tj-aww will be okay. Will see the patient as requested. If there are any other spiritual care issues that arise, please contact driller hand. Narcisa Bojorquez MD - 05/08/2017 7:21 AM PSTFormatting of this note might be different from the lois hernández. [place] HOSPITALIST PROGRESS NOTE Patient: Amy Coleman : 1955: Age: 61 y.o. MedRec: [id number] Admission date: 05/08/2017 Hospital day # : [...] Procedure Component Value Units Date/Time Culture, Blood [[id number]] Collected: 05/08/17144 Order Status: Sent Lab Status: In process Updated: 05/08/17152 Specimen: Blood from Line Culture, Blood [[id number]] Collected: 05/08/17118 Order Status: Sent Lab Status: In process Updated: 05/08/17152 Specimen: Blood from Peripheral Blood Culture, MRSA [[id number]] Collected: 05/08/1731 Order Status: Sent Lab Status: [...] respiratory arrest, never lost pulse. Transferred from [facility]. Family member at bedside reported patient hav [...] listed conditions Narcisa Boone MD 05/08/2017 7:21 [facility] Portions of this chart may have been created with [employer] voice recognition software. Occasi onal wrong-word or sound-alike substitutions may have occurred due to the inherent lobo itations of voice recognition software. Please read the chart carefully and recognize, using context, where these substitutions have occurred documented in this encounter H&P Notes Orlando Wall MD - 05/08/2017 12:27 AM PST [facility] SERVICES HISTORY AND PHYSICAL Pt. Name/Age/: Amy Coleman 61 y.o. 1955 Date of admission: 05/08/2017 Admitting Physician: Orlando Wall MD Primary Care Provider: rBy Vaughn DO CHIEF COMPLAINT: SOB HISTORY OF PRESENT ILLNESS: This is a 61 y.o. female the past medical history significant for COPD, hyperlipidemia who presents with with shortness of breath. Patient is intubated history obtained from the [facility] record and rsvtrmvz-ea-odh at the bedside. This evening patient was complaining of abd ominal pain. She walked up 2 flights of stairs to retrieve some antacids. At the top of th e stairs, patient noted that she was short of breath. Her zvvppxvd-ky-jyx states that antonio nt appeared blue. They gave her her inhalers without any improvement in her symptoms. At t he time EMS arrived the patient was severely hypoxic. She is intubated in the field. Patient arrived to outside hospital ED. Workup there revealed hypoxia,hypercarbic respirat ory failure. CT of the chest did not reveal pulmonary embolism Wtxncuvk-hy-hno notes that patient has had multiple ED [...] signed by: Orlando Wall MD 05/08/2017 0:28 [facility] documented in this enc ounter Procedure Notes Johnny Jolly MD - 05/09/2017 2:33 PM PSTAssociated Order(s): CV CARDIAC PROCEDUREPre-Pr ocedure Diagnose(s): NSTEMI (non-ST elevated myocardial infarction) (HCC)Post-Procedure Diag nose(s): NSTEMI (non-ST elevated myocardial infarction) (HCC)CARDIAC CATHETERIZATION REPORT DATE OF PROCEDURE: 05/09/17 PRECATHETERIZATION INFORMED CONSENT : Yes TIMEOUT Before start of procedure done: Yes DAIRY BAR MANAGER: Johnny Jolly M.D., F.A.C.C. PRIMARY PHYSICIAN: Bry Vaughn DO PROCEDURES PERFORMED: Left heart catheterization, selective coronary arteriography INDICATIONS : 61-year-old woman admitted with acute respiratory failure, elevated troponin ARTERIAL ACCESS: Right radial artery 6 Icelandic CLOSURE DEVICE:. TR band DESCRIPTION OF PROCEDURE: After obtaining informed written consent, the patient was brought to the cardiac catheterization laboratory in stable condition where she was prepped and ortega ped in the usual fashion. Local anesthesia was administered to the right anterior wrist wit h 1% lidocaine. Access to the right radial artery was achieved using a Seldinger technique and a 6 Icelandic sheath was inserted. 3 mg per mL and 300 g of nitroglycerin were administe red through the side port of the radial artery sheath. 4000 units of intravenous heparin wa s administered. Selective coronary arteriography was performed using a 5 Icelandic Ole cath eter. The 5 Icelandic Ole catheter was advanced across the aortic [...] therapy, lifestyle modification Johnny Jolly M.D., F.A.C.C. Sessions Clerk [place], [place] documented in this enc ounter Consult [...] a 61 y.o. female was brought to [place] emergency department via medi cs transport after [...] Wall MD 150 mL/hr at 05/08/17 1558 [facility] list of outpatient meds: Prescriptions Prior [...] ECGs available Confirmed by GEORGES HU, LUCIO ([id number]) on 05/08/2017 8:24:47 AM LVEF-TTE TRANSTHORACIC ECHO [...] AM PSTLate Entry: Received phone message from [facility] in [facility] on 05/12/17, stating that they are not [...] being discharged today and transported back to [place] by a family member. She will not be needing any home 02. This CM met with patient briefly this am to let her know that she has a HH order as well as a nebulizer order and that she will need to cherry picker operator the nebulizer at [facility] in [facility] when they call her today, and they will demonstrate how to use it. Patient had signed the preference form for [facility] for her DME agency choice. This CM called both [facility] and [facility] to let them know of the [...] the order with supporting chart notes to [facility] who in turn will get the order to the [place] office. This nebulizer DME will need to be authed prior to dispensing. As of this time the [place] [facility] had not received it from [place] so will be patrick ling them know. 15:30 Received call from [place] [facility] and they did get the DME referral now a nd will be getting the auth. They requested that the patient call them when she arrives home and the aviation safety techniciansalesperson women's dresses will deliver and instruct. Gave patient their phone number and instructed her to call when she gets home. [facility] her request and confirmed they [...] is admitted for Respiratory failure (HCC) [J96.90]. Rn Anesthetist visit was part of routine rounding. Spiritual Evaluation: Patient was resting in bed; she was awake and alert, and conversational. She smiled and see med happy to have some company. She is excited about discharging to home today, but has only high praise for all the great care she has received while here. She was raised [place], an d although she hasn't attended [employer] in many years maintains a strong personal angel luis - a fa ith that has seen her through some difficult times. She was grateful for the driller hand visit. Spiritual Interventions: I offered supportive listening, [...] in mancera times one with SB A. Redmon tired after walking in mancera but otherwise [...] Needs: (based on 60 kg) Kcal needs: 0164-3436 Kcals/day Protein needs:60-70 grams of protein/day Fluid goal:7319-0387 cc fluid per day Nutrition Plan of [...] in 2 days. 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 Episode of 4/10 chest tightness. [...] Fo roman with adequate U/O. lan of [facility] - Allie Greene RN - 05/08/2017 6:43 [...] and oriented. VSS. Anxious at times. lan [facility] Leydi Johnson RRT - 05/08/2017 5:20 [...] together in a 3 story home in [place]. Amy lives on the first floor. She [...] primary care provider [facility] in [place] is her preferred pharmacy She intends to go directly home after this hospitalization. Her family appear very support waldemar of this plan. She / they are interested in home health. They know RNs from [facility] in [facility] ( Eddi ) and request their [...] [place] | | | | | | [address] | | | | | | | [...] + | [facility] | [address] | [place] | [phone] | | [facility] | | [address] | | | - LABORATORY | | [...] mL/min/1.73m2 | Thelma KAT | | | Yemeni | RATE,ESTIMATED | | MEDICAL | | | | mL/min/1.95t3Tdiq than | | CENTER - | | [...] [address] | [place] | [phone] | | [facility] | | [address] | | | - LABORATORY | | [...] + | [facility] | [address] | [place] | [phone] | | [facility] | | [address] | | | - LABORATORY | | [...] + | [facility] | [address] | [place] | [phone] | | [facility] | | [address] | | | - LABORATORY | | [...] [address] | [place] | [phone] | | [facility] | | [address] | | | - LABORATORY | | [...] [address] | [place] | [phone] | | [facility] | | [address] | | | - LABORATORY | | [...] ST. | [address] | [place] | [phone] | | [facility] | | [address] | | | - LABORATORY | | [...] [address] | [place] | [phone] | | [facility] | | [address] | | | - LABORATORY | | [...] 7 | 7 - 18 mg/dL | [facility] | | | | | | [facility] | | | | | | MEDICAL | | | | | | CENTER - | | | | | | LABORATORY | | + + + + + + | Creatinine | 0.59 (L) | 0.60 - 1.30 | [facility] | | | | | mg/dL | [facility] | | | | | | MEDICAL | | | | | | CENTER - | | | | | | LABORATORY | | + + + + + + | eGFR, | >60Comment: GLOMERULAR | >=60 | [facility] | | | non- | FILTRATION | mL/min/1.73m2 | [facility] | | | Yemeni | RATE,ESTIMATED | | MEDICAL | | | | mL/min/1.03h5Tnpn than | | CENTER - | | [...] [address] | [place] | [phone] | | [facility] | | [address] | | | - LABORATORY | | [...] [address] | [place] | [phone] | | [facility] | | [address] | | | - LABORATORY | | [...] [address] | [place] | [phone] | | [facility] | | [address] | | | - LABORATORY | | [...] ST. | [address] | [place], [place] | [phone] | | [facility] | | [address] | | | - LABORATORY | | [...] of | | | procedure done: Yes DAIRY BAR MANAGER: Johnny Jolly M.D., FRafael. | | | PRIMARY PHYSICIAN: Bry Vaughn, PROCEDURES PERFORMED: | | | Left heart catheterization, selective coronary arteriography | | | INDICATIONS : 61-year-old woman admitted with acute respiratory | | | failure, elevated troponin ARTERIAL ACCESS: Right radial artery 6 | | | Icelandic CLOSURE DEVICE:. TR band DESCRIPTION OF PROCEDURE: [...] | | | technique and a 6 Icelandic sheath was inserted. 3 mg per mL and 300 | | | g of nitroglycerin were administered through the side port of the | | | radial artery sheath. 4000 units of intravenous heparin was | | | administered. Selective coronary arteriography was performed using | | | a 5 Icelandic Ole catheter. The 5 Icelandic Ole catheter was | | | advanced [...] Johnny Jolly M.D., F.A.C.C. | | | Sessions Clerk [facility] | | | [place] | | [...] + | [facility] | [address] | [place] | [phone] | | [facility] | | [address] | | | - LABORATORY | | [...] | | | | | LUCIO HU ([id number]) on | | | | | | [...] [address] | [place] | [phone] | | [facility] | | [address] | | | - LABORATORY | | [...] | | POC | | | [facility] | | | | | | [...] ST. | [address] | [place], [place] | [phone] | | [facility] | | [address] | | | - LABORATORY | | [...] [address] | [place] | [phone] | | [facility] | | [address] | | | - LABORATORY | | [...] [address] | [place] | [phone] | | [facility] | | [address] | | | - LABORATORY | | [...] [address] | [place] | [phone] | | [facility] | | [address] | | | - LABORATORY | | [...] 7 | 7 - 18 mg/dL | [facility] | | | | | | [facility] | | | | | | MEDICAL | | | | | | CENTER - | | | | | | LABORATORY | | + + + + + + | Creatinine | 0.53 (L) | 0.60 - 1.30 | [facility] | | | | | mg/dL | [facility] | | | | | | MEDICAL | | | | | | CENTER - | | | | | | LABORATORY | | + + + + + + | eGFR, | >60Comment: GLOMERULAR | >=60 | [facility] | | | non- | FILTRATION | mL/min/1.73m2 | [facility] | | | Yemeni | RATE,ESTIMATED | | MEDICAL | | | | mL/min/1.29x9Udhh than | | CENTER - | | [...] [address] | [place] | [phone] | | [facility] | | [address] | | | - LABORATORY | | [...] [address] | [place] | [phone] | | [facility] | | [address] | | | - LABORATORY | | [...] | | | | | | [employer] | | | | | [...] [address] | [place] | [phone] | | [facility] | | [address] | | | - LABORATORY | | [...] + | [facility] | [address] | [place] | [phone] | | [facility] | | [address] | | | - LABORATORY | | [...] [address] | [place] | [phone] | | [facility] | | [address] | | | - LABORATORY | | [...] | | | | | results. [employer] | | | | | | [employer] [...] + + | Performing | Address | City/State/[place] Service Unitcode | Phone Number | | Organization | | | | + + + + + | [facility] | [address] | [place] | [phone] | | [facility] | | [address] | | | - LABORATORY | | [...] + | [facility] | [address] | [place] | [phone] | | [facility] | | [address] | | | - LABORATORY | | [...] [address] | [place] | [phone] | | [facility] | | [address] | | | - LABORATORY | | [...] + | [facility] | [address] | [place] | [phone] | | [facility] | | [address] | | | - LABORATORY | | [...] lead | | | | | | [id number] by GEORGES | | | | | | LUCIO HU ([id number]) on | | | | | | [...] [address] | [place] | [phone] | | [facility] | | [address] | | | - LABORATORY | | [...] + | [facility] | [address] | [place] | [phone] | | [facility] | | [address] | | | - LABORATORY | | [...] + | [facility] | [address] | [place] | [phone] | | [facility] | | [address] | | | - LABORATORY | | [...] [address] | [place] | [phone] | | [facility] | | [address] | | | - LABORATORY | | [...] | | | | | | [employer] | | | | | [...] [address] | [place] | [phone] | | [facility] | | [address] | | | - LABORATORY | | [...] + | [facility] | [address] | [place] | [phone] | | [facility] | | [address] | | | - LABORATORY | | [...] + | [facility] | [address] | [place] | [phone] | | [facility] | | [address] | | | - LABORATORY | | [...] | | Critical Result called | | [facility] | | | | to and [...] ST. | [address] | [place], [place] | [phone] | | [facility] | | [address] | | | - LABORATORY | | [...] 449 I | | | Patient Number [id number] Date of Study 05/08/2017 | | | Visit Number [id number] | | | Referring Physician NICOLE TSANG Number Date of | | | 1955 Processing Archivist GIA ROA RDCS | | | Age 61 year(s) Interpreting | | | JOHNNY JOLLY MD, | | | Enrollment Counselor [facility] Gender Female | | | Nurse Stress Magazine Feeder | | | Procedure Type of Study [...] by JOHNNY JOLLY MD, | | | [facility](Interpreting physician) on 05/08/2017 04:56 | | [...] Volume: 38.51 ml | | | EF Arqidppmi36% Left | | | Ventricle Diastolic Dimension: [...] | Electronically signed by JOHNNY JOLLY MD, [facility](Interpreting | | | physician) on 05/08/2017 [...] Volume: 38.51 ml | | | EF Ssuevldmb07% | | | | | | Left [...] Number [id number] | | I Patient Number [id number] Date of Study 05/08/2017 Visit Number | | [id number] Referring Physician NICOLE TSANG Number | | Date of 1955 Processing Archivist GIA ROA WANDA Age | | 61 year(s) Interpreting JOHNNY JOLLY MD, | | Enrollment Counselor FAC Gender Female Nurse | | Stress [...] -- Electronically signed by JOHNNY JOLLY MD, [facility](Interpreting physician) on | | 05/08/2017 04:56 [...] [place] | | Volume: 38.51 ml EF Kwsqlnmuu38% Left | | Ventricle Diastolic Dimension: 4.9 [...] | Electronically signed by JOHNNY JOLLY MD, [facility](Interpreting | | physician) on 05/08/2017 04:56 [...] [place] Volume: 38.51 ml | | EF Lpxeycdtw22% | | | | Left Ventricle | [...] [address] | [place] | [phone] | | [facility] | | [address] | | | - LABORATORY | | [...] | | | | | | [employer] | | | | | [...] [address] | [place] | [phone] | | [facility] | | [address] | | | - LABORATORY | | [...] [address] | [place] | [phone] | | [facility] | | [address] | | | - LABORATORY | | [...] [address] | [place] | [phone] | | [facility] | | [address] | | | - LABORATORY | | [...] | non- | FILTRATION | mL/min/1.73m2 | [facility] | | | [place] | RATE,ESTIMATED | | MEDICAL | | | | mL/min/1.46m8Ihks than | | CENTER - | | [...] [address] | [place] | [phone] | | [facility] | | [address] | | | - LABORATORY | | [...] + | [address] | [address] | [place] | [phone] | | [facility] | | [address] | | | - LABORATORY | | [...] | | | | LUCIO SU MD ([id number]) | | | | | | on [...] + | [address] | [address] | [place] | [phone] | | [facility] | | [address] | | | - LABORATORY | | [...] + | [address] | [address] | [place] | [phone] | | [facility] | | [address] | | | - LABORATORY | | [...] | | | | | | [employer] | | | | | [...] [address] | [place] | [phone] | | [facility] | | [address] | | | - LABORATORY | | [...] + | [facility] | [address] | [place] | [phone] | | [facility] | | [address] | | | - LABORATORY | | [...] [address] | [place] | [phone] | | [facility] | | [address] | | | - LABORATORY | | [...] [address] | [place] | [phone] | | [facility] | | [address] | | | - LABORATORY | | [...] [address] | [place] | [phone] | | [facility] | | [address] | | | - LABORATORY | | [...] chronic respiratory failure with hypoxia and hypercapnia ([facility]) | + + | NSTEMI (non-ST elevated myocardial infarction) ([facility]) Acute myocardial infarction, | | subendocardial infarction, episode of care unspecified | + + | Non-ST elevation myocardial infarction (NSTEMI), type 2 | + + | Respiratory failure with hypoxia and hypercapnia ([facility]) | + + documented in this encounter [...] | | | | | | | [id number] Use NIGHT DOSE for | | | | | | | doses scheduled: HS, 3AM, | | | | | | | Nighttime 3296-3259, | | | | | | + [...] | | | | | from order #[[id number]], | | | | | | + [...]
--- OUTSIDE RECORDS SUMMARY | ~2019-12-20 | XMS | Encounter Summary ---
Demographics + + + | Address | [address] | | | [place] [address] | + + + | Home Phone [...] | [place] | | | | | [address] | | + + + + + | Mila Desai | ECON | Unknown | | + + + + + Care Team Providers + +------+ + | Care Divinity Professor Name | Role | Phone | + +------+ + | Bry Vaughn DO | PCP | | + +------+ + Reason for Visit + +--------+ + | Reason | Onset | Comments | | | Date | | + +--------+ + | Medication Refill | 01/11/ | | | | 2017 | | + +--------+ + Encounter Details +--------+--------+ + + + | Date | Type | Department | Care Team | Description | +--------+--------+ + + + | 01/11/ | Refill | [facility] | Tyree Joyce, | Medication Refill | | 2017 | | PULMONARY [address] | MD [address] | | | | | [place], | [place] | | | | | [place] [address] | [address] | | | | | [phone] | | | +--------+--------+ + + + [...] [place] | | | | | | [address] | | | | | | | | +--------+---------+ + + + documented as of this encounter Visit Diagnoses Not on filedocumented in this encounter"
--- OUTSIDE RECORDS SUMMARY | ~2019-12-20 | XMS | Encounter Summary ---
Demographics + + + | Address | [address] | | | [place] [address] | + + + | Home Phone | | + + + | Preferred Language | Unknown | + + + | Marital Status | | + + + | Baptist Affiliation | 1028 | + + + | Race | White | + + + | Ethnic Group | Not or | + + + Author + + + | Author | [facility] | | | and [place] | + + + | Organization | [facility] | | | and [place] | + + + | Address | Unknown | + + + | Phone | Unavailable | + + + Support + + + + + | Name | Relationship | Address | Phone | + + + + + | Joseluis Desai | ECON | [place] | | | | | [address] | | + + + + + | Mila Desai | ECON | Unknown | | + + + + + Care Team Providers + +------+ + | Care Automobile Damage Appraiser Name | Role | Phone | + +------+ + | Bry Vaughn DO | PCP | | + +------+ + Reason for Visit + +--------+ + | Reason | Onset | Comments | | | Date | | + +--------+ + | Medication Prior | 12/30/ | | | Authorization | 2017 | | + +--------+ + Encounter Details +--------+ + + + + | Date | Type | Department | Care Team | Description | +--------+ + + + + | 12/30/ | Telephone | [facility] | Tyree Joyce, | Medication Prior | | 2017 | | PULMONARY [address] | MD [address] | Authorization | | | | [place], | [place] | | | | | [place] [address] | [address] | | | | | [phone] | | | +--------+ + + + [...] this encounter Miscellaneous Notes Telephone Encounter - Светлана Anguiano RN - 01/02/2018 3:09 PM PDTSpoke with insurance a nd Symbicort needed prior approval. Paperwork submitted and patient informed. elephone Encounter - Harish Joyce MD - 12/30/2017 4:57 PM PDTThe patient has COPD and not asthma. Treatment with an in haled corticosteroid alone is not appropriate. What about Symbicort or Advair?Electronicall y signed by Tyree Joyce MD at 12/30/2017 4:58 PM PDTTelephone Encounter - Michael Patel RN - 12/30/2017 4:11 PM PDTReceived fax from pharmacy stating that Dulera is not on formulary. She has to try and fail at least 1 of the following alternatives: Budesonide, Flovent, Pulmicort or Qvar. Would you like to try one of these? documented in this encounter Plan of Treatment +--------+---------+ + + + | Date | Type | Specialty | Care Team | Description | +--------+---------+ + + + | 01/15/ | Office | Physical Medicine | Dick Maria, | | | 2019 | Visit | and Rehabilitation | [address] | | | | | | [place] | | | | | | [id number] | | | | | | | | +--------+---------+ + + + documented as of this encounter Visit Diagnoses Not on filedocumented in this encounter"
--- OUTSIDE RECORDS SUMMARY | ~2019-12-20 | XMS | Encounter Summary ---
Demographics + + + | Address | [address] | | | [place] [address] | + + + | Home Phone | | + + + | Preferred Language | Unknown | + + + | Marital Status | | + + + | Temple Affiliation | 1028 | + + + | Race | White | + + + | Ethnic Group | Not or | + + + Author + + + | Author | [facility] | | | and [place] | + + + | Organization | [facility] | | | and [place] | + + + | Address | Unknown | + + + | Phone | Unavailable | + + + Support + + + + + | Name | Relationship | Address | Phone | + + + + + | Joseluis Desai | [place] | [place] | | | | | [address] | | + + + + + | Mila Desai | ECON | Unknown | | + + + + + Care Team Providers + +------+ + | Care Combination Building Inspector Name | Role | Phone | [...] | | | [address] [place] | [place] [address] | | | | | [place] [address] | | | | | | [phone] | | | +--------+ + + + [...] [place] | | | | | | [address] | | | | | | | [...]
--- OUTSIDE RECORDS SUMMARY | ~2019-12-20 | XMS | Encounter Summary ---
Demographics + + + | Address | [address] | | | [place] [address] | + + + | Home Phone | | + + + | Preferred Language | Unknown | + + + | Marital Status | | + + + | Jewish Affiliation | 1028 | + + + [...] | [place] | | | | | [address] | | + + + + + | Mila Desai | ECON | Unknown | | + + + + + Care Team Providers + +------+ + | Care Cnc Mill Set Up Operator Name | Role | Phone | + +------+ + | Bry Vaughn DO | PCP | | + +------+ + Reason for Visit +--------+--------+ + | Reason | Onset | Comments | | | Date | | +--------+--------+ + | Other | 09/15/ | | | | 2018 | | +--------+--------+ + Encounter Details +--------+ + + + + | Date | Type | Department | Care Team | Description | +--------+ + + + + | 09/15/ | Telephone | [facility] | Shaji Wilson | Other | | 2018 | | SURGERY [address] | MD Alessandro, FACS [address] | | | [address] [place], [place] | [facility] | | | | | [address] | [place] [address] | | | | | [phone] | [phone] | | | | | | | [...] Notes Telephone Encounter - Niki Vargas - 09/15/2017 2:[address] Vaughn's offi ce and let them know that we received another request for Dr. Wilson to see this patient for her follow up appointments.Both the surgeon who performed the surgery and Dr. Vaughn's offic e have been notified that Dr. Wilson WILL NOT see Amy in office. She needs to follow up wit h the surgeon who performed the surgery and/or her primary care provider in [place]. The [facility] is aware also. Yamileth at Dr. Vaughn's office let me know that they are planning to s end the patient to a vascular specialist in [facility] and she will let Dr. Blake staff kn again that we cannot see this patient. Electronically signed by Niki Vargas at 09/15 2:43 PM PDTdocumented in this encounter Plan of [...] [place] | | | | | | [address] | | | | | | | | +--------+---------+ + + + documented as of this encounter Visit Diagnoses Not on filedocumented in this encounter"
--- OUTSIDE RECORDS SUMMARY | ~2019-12-20 | XMS | Encounter Summary ---
Demographics + + + | Address | [address] | | | [place] [address] | + + + | Home Phone | | + + + | Preferred Language | Unknown | + + + | Marital Status | | + + + | Synagogue Affiliation | 1028 | + + + | Race | White | + + + | Ethnic Group | Not or | + + + Author + + + | Author | [facility] | | | and [place] | + + + | Organization | [facility] | | | and [place] | + + + | Address | Unknown | + + + | Phone | Unavailable | + + + Support + + + + + | Name | Relationship | Address | Phone | + + + + + | Joseluis Desai | [place] | [place] | | | | | [address] | | + + + + + | Mila Desai | ECON | Unknown | | + + + + + Care Team Providers + +------+ + | Care Linux System Engineer Name | Role | Phone | + +------+ + | Bry Vaughn DO | PCP | | + +------+ + Encounter Details +--------+ + + + + | Date | Type | Department | Care Team | Description | +--------+ + + + + | 10/24/ | Imaging | [facility] | Provider, | | | 2018 | Exam | [facility] | [address] [address] | | | | | IMAGING [address] | | | | | [address] [place] | [place] [address] | | | | | [place] [address] | | | | | | [phone] | | | +--------+ + + + [...] [place] | | | | | | [address] | | | | | | | | +--------+---------+ + + + documented as of this encounter Procedures + +--------+ + + + | Procedure Name | Priori | Date/Time | Associated Diagnosis | Comments | | | ty | | | | + +--------+ + + + | XR CHEST 1 VIEW | Routin | 12/28/2016 | | Results for this | | | e | 11:50 PM | | procedure are in the | | | | PDT | | results section. | + +--------+ + + + documented in this encounter Results XR Chest 1 Vw (12/28/2016 11:50 PM PDT) + + | Specimen | [...]
--- OUTSIDE RECORDS SUMMARY | ~2019-12-20 | XMS | Encounter Summary ---
Demographics + + + | Address | [address] | | | [place] [address] | + + + | Home Phone | | + + + | Preferred Language | Unknown | + + + | Marital Status | | + + + | Scientologist Affiliation | 1028 | + + + [...] | [place] | | | | | [address] | | + + + + + | Mila Desai | ECON | Unknown | | + + + + + Care Team Providers + +------+ + | Care Sfdc Architect Name | Role | Phone | + [...] | | | [address] [place] | [place] [address] | | | | | [place] [address] | | | | | | [phone] | | | +--------+ + + + [...] [place] | | | | | | [address] | | | | | | | [...] for this | | | e | 11:15 PM | | procedure are in the | | | | PDT | | results section. | + +--------+ + + + documented in this encounter Results XR Chest 1 Vw (08/16/2017 11:15 PM PDT) + + | Specimen | [...]
--- OUTSIDE RECORDS SUMMARY | ~2019-12-20 | XMS | Encounter Summary ---
Demographics + + + | Address | [address] | | | [place] [address] | + + + | Home Phone [...] + + + | Author | [facility] | | | and [place] | + + + | Organization | [facility] | | | and [place] | + + + | Address | Unknown | + + + | Phone | Unavailable | + + + Support + + + + + | Name | Relationship | Address | Phone | + + + + + | Joseluis Desai | ECON | [place] | | | | | [address] | | + + + + + | Mila Desai | ECON | Unknown | | + + + + + Care Team Providers + +------+ + | Care Shroud Line Tier Name | Role | Phone | + [...] | | | | | | | (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 [facility] [place]PITAL[place] DISCHARGE SUMMARY Pt. Name/Age/: Amy Coleman [...] on discharge day PROCEDURES AND CONSULTS: Procedures [facility] CORONARY ANGIOGRAPHY DOMINANCE: Right LEFT MAIN ARTERY: [...] none DISPOSITION AND DISCHARGE INSTRUCTIONS: Follow-up Information Byr Vaughn DO In 1 week. Specialty: Internal Medicine Contact information: [address] [facility] [address] [place] [address] Demarcus Jurado MD In 3 weeks. Specialty: Gastroenterology Contact information: [address], [address] [place] [address] Condition: Patient being discharged with condition improved Diet: low salt low fat Greater than 30 minutes were spent on discharge and coordination of post-hospital care. Electronically signed by: Narcisa Boone MD, 05/11/2017 7:41 [facility] Portions of this chart may have been created with [employer] voice recognition software. Occasi onal wrong-word or [...] worse Dizziness or weakness Date Last Reviewed: 11/13/201519992429-9090 [employer]. [address] [place] [address]. All righ ts reserved. This information is not intended as a substitute for professional medical care. Always follow your healthcare professional's instructions. AttachmentsThe following attachments cannot be sent through Care Everywhere.Kicking the Smo miguel Habit (Nigerien)Coronary Artery Disease (CAD), Understanding (Nigerien)documented in this encounter Medications at Time of [...] Dewey Harris PharmD 05/11/2017 12:05 Dominique Carrasco, BLUEPRINT MAKER - 05/11/2017 10:38 AM PSTFormatting of this note might be different from the lois ginal. Amy walked with me around the the nurse station [place] without any supplemental oxygen, h er SpO2 [...] remained > 93%. No SOB observed pt [facility] when asked if she was SOB. H/R remained in low 80's, respirations 18 to 20. Electronicall y signed by Carmelita Fulton RRT at 05/11/2017 10:37 AM Narcisa Bojorquez MD - 05/10/2017 7:23 AM PST [facility] [place] H[place]PITAL[place] PROGRESS NOTE Patient: Amy Coleman : 1955: Age: 61 y.o. MedRec: [id number] Admission date: 05/08/2017 Hospital day # : [...] leads V4-6 Confirmed by GEORGES HU, LUCIO ([id number]) on 05/10/2017 7:08:38 AM POC Glucose Collection [...] Procedure Component Value Units Date/Time Culture, Blood [[id number]] (Normal) Collected: 05/08/17 0145 Order Status: Completed Lab Status: Preliminary result Updated: 05/08/17 140 Specimen: Blood from Line Culture No growth: Monitored continually by instrument for 5 days Culture, Blood [[id number]] (Normal) Collected: 05/08/17 0119 Order Status: Completed Lab Status: Preliminary result Updated: 05/08/171400 Specimen: Blood from Peripheral Blood Culture No growth: Monitored continually by instrument for 5 days Culture, MRSA [[id number]] Collected: 05/08/1731 Order Status: Completed Lab Status: [...] 24-48 hrs Narcisa Boone MD 05/10/2017 7:23 [facility] Portions of this chart may have been created with [employer] voice recognition software. Occasi onal wrong-word or [...] ECGs available Confirmed by LUCIO SU MD ([id number]) on 05/08/2017 8:24:47 AM LVEF-TTE TRANSTHORACIC ECHO [...] lead V2 Confirmed by LUCIO SU MD ([id number]) on 05/09/2017 7:21:00 AM MG 05/08/2017 2.3 [...] Bojorquez MD - 05/09/2017 7:[address] [facility] [place] HOSPITALIST PROGRESS NOTE Patient: Amy Coleman : 1955: Age: 61 y.o. MedRec: [id number] Admission date: 05/08/2017 Hospital day # : [...] 1616 sodium chloride 0.9% (NS) infusion Intravenous Supervisor Rose Grading Johnny Luther MD sodium chloride 0.9% (NS) [...] Procedure Component Value Units Date/Time Culture, Blood [[id number]] (Normal) Collected: 05/08/17 0145 Order Status: Completed Lab Status: Preliminary result Updated: 05/08/171400 Specimen: Blood from Line Culture No growth: Monitored continually by instrument for 5 days Culture, Blood [[id number]] (Normal) Collected: 05/08/17 0119 Order Status: Completed Lab Status: Preliminary result Updated: 05/08/171400 Specimen: Blood from Peripheral Blood Culture No growth: Monitored continually by instrument for 5 days Culture, MRSA [[id number]] Collected: 05/08/1731 Order Status: Sent Lab Status: [...] reports feeling malaise with 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 Occasi onal wrong-word or [...] bottles X Pharmacy list names: [facility] [place] X Outside Information Vaccines up to date? [...] per week Marijuana smoke Daily Best possible TACK PULLER medication list after pharmacy review: PT REPORTED [...] performed and electronically signed by Yolanda Grullon, Starch Crab 15:16 Reviewed by Светлана Mendoza, PharmD 05/08/2017 15:28 Lavinia Peacock Chaplain - 05/08/2017 8:26 AM [facility] Spiritual Care Amy Coleman is a 61 y.o. female who is admitted for Respiratory failure ([facility]) [J96.90]. Spiritual Assessment: Patient was intubated at the time of visit. Ybbxdstl-ep-prv, Raciel, was present and she reported that she is very close to the patient. She and the patient has discussed EOL toget her in the Mfbrfxtb-ta-exn is hoping for recovery for patient. Spiritual [...] can't relax until she knows h er xzsqad-is-ltl will be okay. Will see the patient as requested. If there are any other spiritual care issues that arise, please contact nephrology nurse. Narcisa Bojorquez MD - 05/08/2017 7:21 AM PSTFormatting of this note might be different from the lois ginal. [place] HOSPITALIST PROGRESS NOTE Patient: Amy Coleman : 1955: Age: 61 y.o. MedRec: [id number] Admission date: 05/08/2017 Hospital day # : [...] Procedure Component Value Units Date/Time Culture, Blood [[id number]] Collected: 05/08/17 0145 Order Status: Sent Lab Status: In process Updated: 05/08/17152 Specimen: Blood from Line Culture, Blood [[id number]] Collected: 05/08/17118 Order Status: Sent Lab Status: In process Updated: 05/08/17152 Specimen: Blood from Peripheral Blood Culture, MRSA [[id number]] Collected: 05/08/1731 Order Status: Sent Lab Status: [...] respiratory arrest, never lost pulse. Transferred from [facility]. Family member at bedside reported patient [...] listed conditions Narcisa Boone MD 05/08/2017 7:21 [facility] Portions of this chart may have been created with [employer] voice recognition software. Occasi onal wrong-word or sound-alike substitutions may have occurred due to the inherent lobo itations of voice recognition software. Please read the chart carefully and recognize, using context, where these substitutions have occurred documented in this encounter H&P Notes Orlando Wall MD - 05/08/2017 12:27 AM PST [facility] HISTORY AND PHYSICAL Pt. Name/Age/: Amy Coleman 61 y.o. 1955 Date of admission: 05/08/2017 Admitting Physician: Orlando Wall MD Primary Care Provider: Bry Vaughn DO CHIEF COMPLAINT: SOB HISTORY OF PRESENT ILLNESS: This is a 61 y.o. female the past medical history significant for COPD, hyperlipidemia who presents with with shortness of breath. Patient is intubated history [facility] and hspjripv-ea-ehe at the bedside. This evening patient was complaining of abd ominal pain. She walked up 2 flights of stairs to retrieve some antacids. At the top of th e stairs, patient noted that she was short of breath. Her sdynbgah-cy-dht states that patie nt appeared blue. They gave her her inhalers without any improvement in her symptoms. At t he time EMS arrived the patient was severely hypoxic. She is intubated in the field. Patient arrived to outside hospital ED. Workup there revealed hypoxia,hypercarbic respirat ory failure. CT of the chest did not reveal pulmonary embolism Wikcipde-mb-tzd notes that patient has had multiple ED [...] signed by: Orlando Wall MD 05/08/2017 0:28 [facility] documented in this enc ounter Procedure Notes Johnny Jolly MD - 05/09/2017 2:33 PM PSTAssociated Order(s): CV CARDIAC PROCEDUREPre-Pr ocedure Diagnose(s): NSTEMI (non-ST elevated myocardial infarction) (HCC)Post-Procedure Diag nose(s): NSTEMI (non-ST elevated myocardial infarction) (HCC)CARDIAC CATHETERIZATION REPORT DATE OF PROCEDURE: 05/09/17 PRECATHETERIZATION INFORMED CONSENT : Yes TIMEOUT Before start of procedure done: Yes PRINTING SPECIALIST: Johnny Jolly M.D., F.A.C.C. PRIMARY PHYSICIAN: Bry Vaughn DO PROCEDURES PERFORMED: Left heart catheterization, selective coronary arteriography INDICATIONS : 61-year-old woman admitted with acute respiratory failure, elevated troponin ARTERIAL ACCESS: Right radial artery 6 [place] CLOSURE DEVICE:. TR band DESCRIPTION OF PROCEDURE: After obtaining informed written consent, the patient was brought to the cardiac catheterization laboratory in stable condition where she was prepped and ortega ped in the usual fashion. Local anesthesia was administered to the right anterior wrist wit h 1% lidocaine. Access to the right radial artery was achieved using a Seldinger technique and a 6 Tajik sheath was inserted. 3 mg per mL and 300 g of nitroglycerin were administe red through the side port of the radial artery sheath. 4000 units of intravenous heparin wa s administered. Selective coronary arteriography was performed using a 5 Tajik Ole cath eter. The 5 [place] Ole catheter was advanced across the aortic [...] therapy, lifestyle modification Johnny Jolly M.D., F.A.C.C. [employer]or [employer] [place], [place] documented in this enc ounter Consult [...] a 61 y.o. female was brought to [place] emergency department via medi cs transport after [...] Wall MD 150 mL/hr at 05/08/17 1558 [facility] list of outpatient meds: Prescriptions Prior [...] ECGs available Confirmed by GEORGES HU, LUCIO ([id number]) on 05/08/2017 8:24:47 AM LVEF-TTE TRANSTHORACIC ECHO [...] AM PSTLate Entry: Received phone message from [facility] in [place], on 05/12/17, stating that they are not [...] being discharged today and transported back to [place] by a family member. She will not be needing any home 02. This CM met with patient briefly this am to let her know that she has a HH order as well as a nebulizer order and that she will need to forklift picker the nebulizer at [facility] in [facility] when they call her today, and they will demonstrate how to use it. Patient had signed the preference form for [facility] for her DME agency choice. This CM called both [facility] and [facility] to let them know of the [...] the order with supporting chart notes to [facility] who in turn will get the order to the [place] office. This nebulizer DME will need to be authed prior to dispensing. As of this time the [place] [facility] had not received it from [place] so will be patrick ling them know. 15:30 Received call from [place] [facility] and they did get the DME referral now a nd will be getting the auth. They requested that the patient call them when she arrives home and the geospatial information scientistdirector call center sales will deliver and instruct. Gave patient their phone number and instructed her to call when she gets home. Also faxed the new scripts for patient to [facility] per her request and confirmed they [...] female who is admitted for Respiratory failure ([facility]) [J96.90]. Eyeletter visit was part of routine rounding. Spiritual Evaluation: Patient was resting in bed; she was awake and alert, and conversational. She smiled and see med happy to have some company. She is excited about discharging to home today, but has only high praise for all the great care she has received while here. She was raised [place], an d although she hasn't attended faith in many years maintains a strong personal angel luis - a fa ith that has seen her through some difficult times. She was grateful for the nephrology nurse visit. Spiritual Interventions: I offered supportive listening, [...] in mancera times one with SB A. [place] tired after walking in mancera but otherwise [...] Needs: (based on 60 kg) Kcal needs: 3424-2241 Kcals/day Protein needs:60-70 grams of protein/day Fluid goal:0653-8183 cc fluid per day Nutrition Plan of [...] in 2 days. Available as needed, ext [phone] Assessment: Diet Order: For your reference, current, [...] 13:34 lan of Care - Lynsey Castro, BLUEPRINT MAKER - 05/10/2017 6:11 AM PSTProblem: Patient Care [...] doesn't want to try RA. lan of [facility] - Mary Greene RN - 05/09/2017 5:51 [...] Greene RN - 05/09/2017 1:16 PM PSTTo sleep lab technician at 1305. Episode of 4/10 chest tightness. [...] oriented. VSS. Anxious at times. lan of [facility] - Leydi Johnson RRT - 05/08/2017 5:20 [...] inhaler lan of Care - Candy Cavanaugh [facility] - 05/08/2017 5:01 PM PSTDischarge Planning Goal: Pt to be discharged in a safe manner Summary /Intervention: Met with patient and her son, Joseluis,and daughter in law Mila. Pt is sitting up in bed, is alert, well oriented, and appears in good spirits. Amy and her son and daughter in law live together in a 3 story home in [place]. Amy lives on the first floor. She [...] primary care provider [facility] in [place] is her preferred pharmacy She intends to go directly home after this hospitalization. Her family appear very support waldemar of this plan. She / they are interested in home health. They know RNs from [facility] in [facility] ( [place] ) and request their visits. [...] [place] | | | | | | [id number] | | | | | | | [...] [address] | [place] | [phone] | | [facility] | | [address] | | | - LABORATORY | | [...] (L) | 7 - 18 mg/dL | [facility] | | | | | [facility] | | [facility] | [facility] | | | | | | [facility] - | | | | | | LABORATORY | | + + + + + + | Creatinine | 0.67 | 0.60 - 1.30 | [facility] | | | | | mg/dL | [facility] | | | | | | [facility]ICAL | | | | | | CENTER - | | | | | | LABORATORY | | + + + + + + | eGFR, | >60Comment: GLOMERULAR | >=60 | [facility] | | | non- | FILTRATION | mL/min/1.73m2 | [facility] | | | [place]ovan | RATE,ESTIMATED | | MEDICAL | | | | mL/min/1.32q2Dwyc than | | CENTER - | | [...] [address] | [place] | [phone] | | [facility] | | [address] | | | - LABORATORY | | [...] [address] | [place] | [phone] | | [facility] | | [address] | | | - LABORATORY | | [...] Basophils | | K/Mark Anthony | [facility] | | | | | | MEDICAL [...] [address] | [place] | [phone] | | [facility] | | [address] | | | - LABORATORY | | [...] + | [facility] [facility] | [address] | [place] | [phone] | | [facility] | | [address] | | | - LABORATORY | | [...] [address] | [place] | [phone] | | [facility] | | [address] | | | - LABORATORY | | [...] | | | POC | | | [facility] | | | | | [...] | + + + + + | [facility] | [address] | [place] | [phone] | | [facility] | | [address] | | | - LABORATORY | | [...] [address] | [place] | [phone] | | [facility] | | [address] | | | - LABORATORY | | [...] | | | | | mg/dL | [facility] | | | | | | MEDICAL | | | | | | CENTER - | | | | | | LABORATORY | | + + + + + + | eGFR, | >60Comment: GLOMERULAR | >=60 | [facility] | | | non- | FILTRATION | mL/min/1.73m2 | [facility] | | | Kosovan | RATE,ESTIMATED | | MEDICAL | | | | mL/min/1.86z7Eaya than | | CENTER - | | [...] | 8.3 | 8.3 - 10.5 | [facility] | | | | | mg/dL | [facility] | | | | | | [...] [address] | [place] | [phone] | | [facility] | | [address] | | | - LABORATORY | | [...] | | | | | | [facility] | | | | | [...] + | [facility] | [address] | [place] | [phone] | | [facility] | | [address] | | | - LABORATORY | | [...] [address] | [place] | [phone] | | [facility] | | [address] | | | - LABORATORY | | [...] [address] | [place] | [phone] | | [facility] | | [address] | | | - LABORATORY | | [...] of | | | procedure done: Yes PRINTING SPECIALIST: Johnny Jolly M.D., F.A.C.C. | | | PRIMARY PHYSICIAN: Bry Vaughn, PROCEDURES PERFORMED: | | | Left heart catheterization, selective coronary arteriography | | | INDICATIONS : 61-year-old woman admitted with acute respiratory | | | failure, elevated troponin ARTERIAL ACCESS: Right radial artery 6 | | | Taj[place] CLOSURE DEVICE:. TR band DESCRIPTION OF PROCEDURE: [...] | | | technique and a 6 Tajik sheath was inserted. 3 mg per mL and 300 | | | g of nitroglycerin were administered through the side port of the | | | radial artery sheath. 4000 units of intravenous heparin was | | | administered. Selective coronary arteriography was performed using | | | a 5 Tajik Ole catheter. The 5 Taj[place] Ole catheter was | | | advanced [...] Johnny Jolly M.D., F.A.C.C. | | | [employer]or [employer] [facility] [facility] [place] | | | [place] [...] + | [facility] | [address] | [place] | [phone] | | [facility] | | [address] | | | - LABORATORY | | [...] | | | | | LUCIO HU ([id number]) on | | | | | | [...] [address] | [place] | [phone] | | [facility] | | [address] | | | - LABORATORY | | [...] + | [facility] | [address] | [place] | [phone] | | [facility] | | [address] | | | - LABORATORY | | [...] + + | [facility] | [address] | [place] | [phone] | | [facility] | | [address] | | | - LABORATORY | | [...] [address] | [place] | [phone] | | [facility] | | [address] | | | - LABORATORY | | [...] [address] | [place] | [phone] | | [facility] | | [address] | | | - LABORATORY | | [...] | non- | FILTRATION | mL/min/1.73m2 | [facility] | | | [place] | RATE,ESTIMATED | | MEDICAL | | | | mL/min/1.41a9Ihya than | | CENTER - | | [...] | | | | | mg/dL | [facility] | | | | | | [...] + | [facility] | [address] | [place] | [phone] | | [facility] | | [address] | | | - LABORATORY | | [...] [address] | [place] | [phone] | | [facility] | | [address] | | | - LABORATORY | | [...] | | | | | | [employer] | | | | | [...] [address] | [place] | [phone] | | [facility] | | [address] | | | - LABORATORY | | [...] [address] | [place] | [phone] | | [facility] | | [address] | | | - LABORATORY | | [...] + | [facility] | [address] | [place] | [phone] | | [facility] | | [address] | | | - LABORATORY | | [...] | | | | | results. [employer] | | | | | | [employer] [...] + | [facility] | [address] | [place] | [phone] | | [facility] | | [address] | | | - LABORATORY | | [...] | | POC | | | [facility] | | | | | [...] [address] | [place] | [phone] | | [facility] | | [address] | | | - LABORATORY | | [...] + | [facility] | [address] | [place] | [phone] | | [facility] | | [address] | | | - LABORATORY | | [...] | | | Source | | | [facility] | | | | | | [...] + | [facility] | [address] | [place] | [phone] | | [facility] | | [address] | | | - LABORATORY | | [...] lead | | | | | | C6Hlrysldrd by GEORGES | | | | | | LUCIO [id number]) on | | | | | | [...] + | [facility] [facility] | [address] | [place] | [phone] | | [facility] | | [address] | | | - LABORATORY | | [...] [address] | [place] | [phone] | | [facility] | | [address] | | | - LABORATORY | | [...] + | [facility] | [address] | [place] | [phone] | | [facility] | | [address] | | | - LABORATORY | | [...] + | [facility] | [address] | [place] | [phone] | | [facility] | | [address] | | | - LABORATORY | | [...] | | | | | | [employer] | | | | | [...] [address] | [place] | [phone] | | [facility] | | [address] | | | - LABORATORY | | [...] ST. | [address] | [place], [place] | [phone] | | [facility] | | [address] | | | - LABORATORY | | [...] [address] | [place] | [phone] | | [facility] | | [address] | | | - LABORATORY | | [...] + | [facility] | [address] | [place] | [phone] | | [facility] | | [address] | | | - LABORATORY | | [...] 449 I | | | Patient Number [id number] Date of Study 05/08/2017 | | | Visit Number [id number] | | | Referring Physician NICOLE TSANG Number Date of | | | 1955 Gravity Prospecting Observer GIA ROA RUST | | | Age 61 year(s) Interpreting | | | JOHNNY JOLLY MD, | | | Nephrology Nurse [facility] Gender Female | | | Nurse Stress Hand Sizer | | | Procedure Type of Study [...] Volume: 38.51 ml | | | EF Hgrbmtqpk21% Left | | | Ventricle Diastolic Dimension: [...] Volume: 38.51 ml | | | EF Vclwwfidb29% | | | | | | Left [...] Rad Results In - 05/08/2017 4:56 PM [facility] Transthoracic Echocardiography Report | | (TTE) Demographics Patient Name MARCELLA REYES Room Number 449 | | I Patient Number [id number] Date of Study 05/08/2017 Visit Number | | [id number] Referring Physician NICOLE TSANG Number | | Date of 1955 Gravity Prospecting Observer GIA ROA RDCS Age | | 61 year(s) Interpreting JOHNNY JOLLY MD, | | Nephrology Nurse FAC Gender Female Nurse | | Stress [...] -- Electronically signed by JOHNNY JOLLY MD, [facility](Interpreting physician) on | | 05/08/2017 04:56 [...] [place] | | Volume: 38.51 ml EF Bldcvrzut22% Left | | Ventricle Diastolic Dimension: 4.9 [...] | Electronically signed by JOHNNY JOLLY MD, [facility](Interpreting | | physician) on 05/08/2017 04:56 [...] [place] Volume: 38.51 ml | | EF Fkcunivua94% | | | | Left Ventricle | [...] + | [facility] | [address] | [place] | [phone] | | [facility] | | [address] | | | - LABORATORY | | [...] | | | | | | [employer] | | | | | [...] + | [facility] | [address] | [place] | [phone] | | [facility] | | [address] | | | - LABORATORY | | [...] [address] | [place] | [phone] | | [facility] | | [address] | | | - LABORATORY | | [...] + | [facility] | [address] | [place] | [phone] | | [facility] | | [address] | | | - LABORATORY | | [...] mL/min/1.73m2 | [facility] | | | [place] | RATE,ESTIMATED | | MEDICAL | | | | mL/min/1.60s1Nykj than | | CENTER - | | [...] [address] | [place] | [phone] | | [facility] | | [address] | | | - LABORATORY | | [...] [address] | [place] | [phone] | | [facility] | | [address] | | | - LABORATORY | | [...] | | | | LUCIO SU MD ([id number]) | | | | | | on [...] [address] | [place] | [phone] | | [facility] | | [address] | | | - LABORATORY | | [...] + | [facility] | [address] | [place] | [phone] | | [facility] | | [address] | | | - LABORATORY | | [...] | | | | | | [employer] | | | | | [...] [address] | [place] | [phone] | | [facility] | | [address] | | | - LABORATORY | | [...] [address] | [place] | [phone] | | [facility] | | [address] | | | - LABORATORY | | [...] + | [facility] | [address] | [place] | [phone] | | [facility] | | [address] | | | - LABORATORY | | [...] ST. | [address] | [place], [place] | [phone] | | [facility] | | [address] | | | - LABORATORY | | [...] + | [facility] | [address] | [place] | [phone] | | [facility] | | [address] | | | - LABORATORY | | [...]
--- OUTSIDE RECORDS SUMMARY | ~2019-12-20 | XMS | Encounter Summary ---
Demographics + + + | Address | [address] | | | [place] [address] | + + + | Home Phone | | + + + | Preferred Language | Unknown | + + + | Marital Status | | + + + | Restorationist Affiliation | 1028 | + + + | Race | White | + + + | Ethnic Group | Not or | + + + Author + + + | Author | [facility] | | | and [place] | + + + | Organization | [facility] | | | and [place] | + + + | Address | Unknown | + + + | Phone | Unavailable | + + + Support + + + + + | Name | Relationship | Address | Phone | + + + + + | Joseluis Desai | ECON | [place] | | | | | [address] | | + + + + + | Mila Desai | ECON | Unknown | | + + + + + Care Team Providers + +------+ + | Care Customer Support Engineer Name | Role | Phone | [...] [address] | | | | | [place], | [place], [place] | | | | | [place] [address] | [address] | | | | | [phone] | | | +--------+--------+ + + + [...] [place] | | | | | | [address] | | | | | | | | +--------+---------+ + + + documented as of this encounter Visit Diagnoses Not on filedocumented in this encounter"
--- OUTSIDE RECORDS SUMMARY | ~2019-12-20 | XMS | Encounter Summary ---
Demographics + + + | Address | [address] | | | [place] [address] | + + + | Home Phone | | + + + | Preferred Language | Unknown | + + + | Marital Status | | + + + | Episcopalian Affiliation | 1028 | + + + | Race | White | + + + | Ethnic Group | Not or | + + + Author + + + | Author | [facility] | | | and [place] | + + + | Organization | [facility] | | | and [place] | + + + | Address | Unknown | + + + | Phone | Unavailable | + + + Support + + + + + | Name | Relationship | Address | Phone | + + + + + | Joseluis Desai | ECON | [place] | | | | | [address] | | + + + + + | Mila Desai | ECON | Unknown | | + + + + + Care Team Providers + +------+ + | Care Custom Car Builder Name | Role | Phone | + +------+ + | Bry Vaughn DO | PCP | | + +------+ + Reason for Visit + + + | Reason | Comments | + + + | Pulmonary Disease | Consult/Emphysema | | Appointment | | + + + Evaluate & Treat (Routine) +--------+--------+ + + + + | Status | Reason | Specialty | Diagnoses / | Referred By | Referred To | | | | | Procedures | Contact | Contact | +--------+--------+ + + + + | Closed | | Pulmonology | Diagnoses | Roderick, | Isiah, | | | | | Panlobular | DO Bry | MD Tyree | | | | | emphysema | [address] | [address] | | | | | ([facility]) | Onel Landa | [place], | | | | | Procedures | [address] | [place] [address] | | | | | NEW PT | [place], | Phone: | | | | | CONSULT | [place] | [phone] | | | | | | [address] | Fax: | | | | | | Phone: | [phone] | | | | | | [phone] | | | | | | | Fax: | | | | | | | [phone] | | +--------+--------+ + + + + Encounter Details +--------+---------+ + + + | Date | Type | Department | Care Team | Description | +--------+---------+ + + + | 12/12/ | Office | [facility] | Tyree Joyce, | COPD, severe (HCC) | | 2018 | Visit | PULMONARY [address] | MD [address] | (Primary Dx) | | | | [place], | [place], [place] | | | | | [place] [address] | [address] | | | | | [phone] | | | +--------+---------+ + + + [...] + + + | Blood Pressure | 116/76 | 12/12/2017 1:26 PM | | | | | PDT | | + + + + + | Pulse | 66 | 12/12/2017 1:26 PM | | | | | PDT | | + + + + + | Temperature | - | - | | + + + + + | Respiratory Rate | - | - | | + + + + + | Oxygen Saturation | 97% | 12/12/2017 1:26 PM | Room Air | | | | PDT | | + + + + + | Inhaled Oxygen | - | - | | | Concentration | | | | + + + + + | Weight | 59 kg (130 lb 1.1 | 12/12/2017 1:26 PM | | | | oz) | PDT | | + + + + + | Height | 165.1 cm (5' 5") | 12/12/2017 1:26 PM | | | | | PDT | | + + + + + | Body Mass Index | 21.64 | 12/12/2017 1:26 PM | | | | | PDT | | + + + + + documented in this encounter Patient Instructions Patient Instructions Tyree Joyce MD - 12/12/2017 1:30 PM PDT Fluticasone; Vilanterol inhalation powder Brand Name: BRIAN LONG What is this medicine? FLUTICASONE; VILANTEROL (floo TIK a sone; vye PRIYA ter ol) inhalation is a combination of tw o medicines that decrease inflammation and help to open up the airways of your lungs. It is for chronic obstructive pulmonary disease (COPD), including chronic bronchitis or emphysema. It is also used for asthma in adults to help control symptoms. Do NOT use for an acute asth ma attack or COPD attack. How should I use this medicine? This medicine is inhaled through the mouth. It is used once per day. Follow the directions on the prescription label. Do not use a spacer device with this inhaler. Take your medicine at regular intervals. Do not take your medicine more often than directed. Do not stop taking except on your doctor's advice. Make sure that you are using your inhaler correctly. Ask yo doctor or health care provider if you have any questions. A special MedGuide will be given to you by the pharmacist with each prescription and refill . Be sure to read this information carefully each time. Talk to your lead coater regarding the use of this medicine in children. Special care may be needed. This medicine is not approved for use in children under 18 years of age. What side effects may I notice from receiving this medicine? Side effects that you should report to your doctor or health long term care administrator as soon as p ossible: allergic reactions like skin rash or hives, swelling of the face, lips, or tongue breathing problems right after inhaling your medicine changes in vision chest pain fast, irregular heartbeat feeling faint or lightheaded, falls fever or chills nausea, vomiting tiredness Side effects that usually do not require medical attention (report to your doctor or health long term care administrator if they continue or are bothersome): cough headache nervousness sore throat tremor What may interact with this medicine? Do not take this medicine with any of the following medications: cisapride dofetilide dronedarone MAOIs like Carbex, Eldepryl, Marplan, Nardil, and Parnate pimozide thioridazine ziprasidone This medicine may also interact with the following medications: antiviral medicines for HIV or AIDS beta-blockers like metoprolol and propranolol certain medicines for depression, anxiety, or psychotic disturbances certain medicines for fungal infections like ketoconazole, itraconazole, posaconazole, v oriconazole conivaptan diuretics medicines for colds nefazodone other medicines for breathing problems other medicines that prolong the QT interval (cause an abnormal heart rhythm) What if I miss a dose? If you miss a dose, use it as soon as you can. If it is almost time for your next dose, use only that dose and continue with your regular schedule. Do not use double or extra doses. Where should I keep my medicine? Keep out of the reach of children. Store at room temperature between 15 and 30 degrees C (59 and 86 degrees F). Store in a dry place away from direct heat or sunlight. Throw away 6 weeks after you remove the inhaler fr om the foil tray, or after the dose indicator reads 0, whichever comes first. Throw away any unopened packages after the expiration date. What should I tell my health care provider before I take this medicine? They need to know if you have any of these conditions: bone problems immune system problems diabetes heart disease or irregular heartbeat high blood pressure infection pheochromocytoma seizures thyroid disease an unusual or allergic reaction to fluticasone, vilanterol, milk proteins, corticosteroi ds, other medicines, foods, dyes, or preservatives or trying to get breast-feeding What should I watch for while using this medicine? Visit your doctor or health long term care administrator for regular checkups. Tell your doctor or [facility] long term care administrator if your symptoms do not get better. Do not use this medicine more than once every 24 hours. NEVER use this medicine for an acute asthma or COPD attack. You should use your short-actin g rescue inhalers for this purpose. If your symptoms get worse or if you need your short-act ing inhalers more often, call your doctor right away. If you are going to have surgery tell your doctor or health long term care administrator that you are using this medicine. Try not to come in contact with people with the chicken pox or measles. If you do, call your doctor. NOTE:This sheet is a summary. It may not cover all possible information. If you have questi ons about this medicine, talk to your doctor, pharmacist, or health care provider. Copyright 2018 [employer] documented in this encounter Progress Notes Tyree Joyce MD - 12/12/2017 1:30 PM PDTFormatting of this note might be different f rom the original. Pulmonary Consult Note 12/12/2017 HPI Amy Coleman is a 62 y.o. female patient of Bry Vaughn DO here today for evaluati on of COPD. The patient states that she was diagnosed with "COPD" and approximately 2013. Amy was in itially treated with Ventolin and Incruse. In late April 2017 she developed respiratory failure and was transferred to [facility] for further evaluation. T he patient was noted to have an elevated troponin and underwent cardiac catheterization. Sh e was felt to have a non-STEMI without significant coronary artery disease on angiogram. Th e primary etiology of the patient's respiratory failure was thought to be secondary to her C OPD. She was discharged on prednisone taper. The patient did well until early August 2017 when she again developed respiratory failure and was noted to be in hemorrhagic shock. Patient was transferred to [place] where she wa s noted to have intra-abdominal bleeding and underwent embolization of the left gastric paco ry. Primary diagnosis was that of pseudoaneurysm of visceral artery. Patient returned to [place] in September 2016 with chest pain. She states that she was jiménez sferred to another facility but records are not available to collaborate. While hospitalized in [place] the patient's COPD regimen was changed to albuterol/ipratropi um mixed and use via nebulizer 4 times a day and a scheduled fashion and as needed Ventolin. Currently they reports their main symptoms at this point to be dyspnea. Amy are able to walk 500 feet at their own pace on level ground before developing shortness of breath. The d genevieve walked is predominately limited by dyspnea. One year ago, they feel that they could walk several blocks. Triggers for their shortness of breath include exertion. Relieving fac tors include resting. They do not exercise regularly. Amy are not currently enrolled in pulmonary rehabilitatio n. They have not completed pulmonary rehabilitation in the past. The patient does not cough chronically, and does not produce mucous. They have not had hemo ptysis in the last 6 months. Treatments that they have been used in the past include Duoneb QID. Amy does not feel aubree t these treatments are helping their breathing. Currently they are using their rescue inhale r, Ventolin, 4-5 times a day. They have had to be hospitalized for breathing issues in the past. Amy has required intu bation in the past. They have had to go to the emergency room in the last year related to br eathing problems. They have had 1 exacerbations in the past year requiring treatment with prednisone and 1 tr eatments with antibiotics. Amy has not been evaluated for nocturnal oxygen. Patient no longer uses tobacco. She apparently smoked on average a pack of cigarettes a da y for 50 years and recently discontinued tobacco use. Past Medical History Past Medical History: Diagnosis Date COPD (chronic obstructive pulmonary disease) ([facility]) 2013 intubated 05/08/17 NSTEMI (non-ST elevated myocardial infarction) ([facility]) 05/11/17 Pseudoaneurysm ([facility]) 08/2017 "visceral artery" Shortness of breath Past Surgical History Past Surgical History: Procedure Laterality Date APPENDECTOMY 1996 CARDIAC CATHERIZATION N/A 05/09/2017 Procedure: CV LHC; Surgeon: Johnny Luther MD; Location: [facility] CV LAB HYSTERECTOMY 1996 OTHER SURGICAL HISTORY N/A 08/17/2017 Procedure: GI BLEED; Surgeon: Ion Power MD; Location: [facility] INTERVENTIONAL RADIOLOG Y OTHER SURGICAL HISTORY N/A 08/18/2017 Procedure: Gastric Artery Embolization with 2mm x 8cm coil and Lyons 34 and 18 embolic; Isaac rgeon: Bobo Ha MD; Location: [facility] INTERVENTIONAL RADIOLOGY Family History: Family History Problem Relation Age of Onset Diabetes Mother Heart disease Mother Heart disease Father No Known Problems Brother Social History: She reports that she quit smoking about 19 months ago. She started smoking about 49 [...] nebulizer solution, Take 3 mLs by nebulization 4 times daily., D isp: , Rfl: 1 albuterol-ipratropium (DUONEB) 2.5-0.5 mg/3 mL SOLN, Take 3 mLs by nebulization every 6 hours. Dx: COPD Acute hypoxic respiratory failure, Disp: 360 mL, Rfl: 0 atorvaSTATin (LIPITOR) 40 mg tablet, Take 40 mg by mouth nightly., Disp: , Rfl: buPROPion (WELLBUTRIN SR) 150 mg 12 hr tablet, Take 150 mg by mouth 2 times daily., Di sp: , Rfl: carboxymethylcellulose (THERATEARS) 0.25% ophthalmic solution, Place 1 drop into both eyes Daily., Disp: , Rfl: lisinopril (PRINIVIL, ZESTRIL) 10 mg tablet, [...] (ADOL/ADULT) 07/12/2016 ZOSTER, 1 DOSE (ADULT) 07/12/2016 Review of Systems Constitutional: Denies fever, chills, sweats and unexpected weight change. Sleep: Denies excessive snoring, and daytime sleepiness. Eyes: Denies vision change, and eye irritation. ENT: Denies earache, tinnitus, nasal congestion, nosebleeds, sore throat, and hoarseness. Resp: Denies hemoptysis or pleuritic chest pain. CV: Denies neck/chest/jaw pain with exertion, palpitations, orthopnea and claudication. GI: Denies trouble swallowing, chronic heartburn, nausea, vomiting, abdominal pain, diarrh ea, melena, and hematochezia. Denies dysuria, hematuria, urinary frequency, difficulty emptying bladder. Musculoskeletal: Denies joint pain/stiffness, joint swelling, muscle cramps, muscle weaknes s. Derm: Denies rash or suspicious lesions. Neurologic: Denies frequent headaches, seizures, tremors, numbness or tingling in hands or feet, vertigo, and fall or difficulty walking in past 6 months Psych Denies depression, anxiety, suicidal ideation. Endo Denies cold intolerance, heat intolerance. Heme Denies abnormal bruising, bleeding, and enlarged lymph nodes. Allergy Denies urticaria, allergic rash, hay fever Objective BP 116/76 | Pulse 66 | Ht 1.651 m (5' 5") | Wt 59 kg (130 lb 1.1 oz) | SpO2 97% Comment : Room Air | BMI 21.64 kg/m General Appearance: Alert, cooperative, no distress, appears stated age. Head: Normocephalic, without obvious abnormality, atraumatic. Eyes: PERRL, conjunctiva/corneas clear. Ears: Normal external appearance, TM's without abnormality. Nose: Nasal mucosa normal, septum midline, no abnormal drainage or sinus tenderness. Throat: Lips, mucosa, and tongue normal; teeth/dentures normal. MP 1. Neck: Supple, symmetrical, no adenopathy, normal JVD Lungs: No accessory muscle use, breath sounds are reduced to auscultation bilaterally, no wheezes, no crackles or rhonchi. No dullness to percussion. Chest Wall: No tenderness or deformity. Heart: Regular rate and rhythm, S1, S2 normal, no murmur, no rub or gallop Abdomen: Soft, non-tender. No hepatosplenomegaly. Extremities: Extremities normal, atraumatic, no cyanosis, clubbing. Edema no Pulses: Radial pulses 2+ and symmetric Skin: Warm and dry Lymph nodes: No abnormal cervical or supraclavicular nodes Neurologic: Gait normal Data: Chest x-ray(s) from 09/13/17 were reviewed today with the patient present. The x-ray(s) show prominent pulmonary arteries with mild flattening of the diaphragms bilaterally. Chest CT(s) from 08/17/17 were reviewed today with the patient present. The CT(s) scan show a fair amount of motion artifact. The patient is intubated. There is no evidence of pulmona ry emboli. Probable upper lung zone emphysema is noted. Pulmonary function tests were performed on 06/06/17 and were reviewed/interpreted in clinic today. They show a prebronchodilator FEV1 of 0.88, 37% of predicted. The postbronchodilato r FEV1 is 1.27 (percent predicted not noted). This represented 43% improvement. Residual v olume of 2.51, 115% of predicted with an uncorrected DLCO of 10.35, 38% of predicted. Bry Vaughn DO's notes were reviewed in clinic today. Assessment Amy Coleman is a 62-year-old female with a prior 50+ pack year smoking history who is ref erred by Dr. Vaughn for pulmonary consultation regarding apparent advanced COPD/emphysema. The patient was diagnosed with COPD approximately 4 years ago. In late April 2017 she a pparently developed respiratory failure which was initially thought to be related to a non-S [place] but ultimately thought to be secondary to a COPD exacerbation. Otherwise no other hosp italizations for obstructive lung disease exacerbations are noted. The patient was hospitalized approximate 4 months ago with intra-abdominal hemorrhage secon barbara to bleeding from a pseudoaneurysm. This was treated with embolization. Since the patient's discharge from the hospital she has stopped smoking. Amy's current COPD medication regimen consists of scheduled albuterol/ipratropium via neb ulizer 4 times a day and as needed Ventolin. In the past the patient has used Incruse and p otentially Advair. Pulmonary function tests from 06/06/17 show a severely reduced prebronchodilator FEV1 with s ignificant response to albuterol. I have suggested to Mrs. Coleman that we change her albuterol/ipratropium via nebulizer to every 4 hours as needed. We will add a long-acting beta agonist/inhaled corticosteroid. If the patient's symptoms do not significantly improve would consider the addition of a long-a cting anticholinergic. Amy is in need of repeat pulmonary function testing given some ambiguity regarding her po stbronchodilator FEV1 percent predicted. I would also like to perform exertional oximetry. The patient appears up-to-date with respect to her Pneumovax and seasonal influenza vaccina tion. She is in need of her Prevnar 13. Lastly we discussed the role of pulmonary rehab. Plan 1. Change albuterol plus ipratropium mixed in a nebulizer every 4 hours as needed for shor tness of breath. 2. Initiate Breo 100/25 one inhalation once a day. 3. Spirometry, lung volumes and diffusion capacity with follow-up. 4. Exertional oximetry on room air. 5. Prevnar 13 with follow-up. 6. Pulmonary clinic follow-up appointment to assess the status of the patient's symptoms o n Breo in approximately 3 weeks. 7. Will consider referral for pulmonary rehab in [facility]. CC: Bry Vaughn, DO Tdocumented in this [...] [place] | | | | | | [id number] | | | | | | | | +--------+---------+ + + + documented as of this encounter Procedures + +--------+ + + + | Procedure Name | Priori | Date/Time | Associated Diagnosis | Comments | | | ty | | | | + +--------+ + + + | LABS - EXTERNAL SCAN | | 09/28/2017 | | Results for this | | | | 12:00 AM | | procedure are in the | | | | PDT | | results section. | + +--------+ + + + | IMAGING REPORT - | | 07/12/2017 | | Results for this | | [...] Crisostomo | | | MD Isiah [facility] | | |[facility]PRESSION: Spirometry [...] MD 12/30/2017 | | |14:22 | | |[facility] | | + + + LABS - EXTERNAL SCAN (09/28/2017 12:00 AM PDT) + + + | Narrative | Performed At | + + + | Ordered by an | | | unspecified provider. | | + + + IMAGING REPORT - EXTERNAL SCAN (07/12/2017 12:00 AM PDT) + + + | Narrative | Performed At | + + + | Ordered by an | | | unspecified provider. | | + + + documented in this encounter Visit Diagnoses + + | Diagnosis | + + | COPD, severe (HCC) - Primary Chronic airway obstruction, not elsewhere classified | + + documented in this encounter
--- OUTSIDE RECORDS SUMMARY | ~2019-12-20 | XMS | Encounter Summary ---
Demographics + + + | Address | [address] | | | [place] [address] | + + + | Home Phone [...] | [place] | | | | | [address] | | + + + + + | Mila Desai | ECON | Unknown | | + + + + + Care Team Providers + +------+ + | Care Outbound Telemarketer Name | Role | Phone | + [...] | | | [address] [place] | [place] [address] | | | | | [place] [address] | | | | | | [phone] | | | +--------+ + + + [...] [place] | | | | | | [address] | | | | | | | [...]
--- OUTSIDE RECORDS SUMMARY | ~2019-12-20 | XMS | Clinical Summary ---
Demographics + + + | Address | [address] | | | [place] [address] | + + + | Home Phone [...] + | Author | [facility] | | | and [place] | + + + | Organization | [facility] | | | and [place] | + + + | Address | Unknown | + + + | Phone | Unavailable | + + + Support + + + + + | Name | Relationship | Address | Phone | + + + + + | Joseluis Desai | ECON | [place] | | | | | [address] | | + + + + + | Mila Desai | ECON | Unknown | | + + + + + Care Team Providers + +------+ + | Care Bread Wrapper Operator Name | Role | Phone | [...] ELLIPTA | inhale 1 puff by | 60 each | 3 | 04/2 | | Activ | | 100-25 MCG/INH | mouth once daily | | | 04/02 | | e | | inhaler | | | | 20 | | | + + + +---------+------+------+-------+ [...] | 8 | + + + + Immunizations + + + + | Name [...] Wilson | | | | | | [place] | | | | | | [address] | | | | | | | | +--------+---------+ + + + + + + + + | Health Maintenance | Due Date | Last | Comments | | | | Done | | + + + + + | Hepatitis C | | | | | Screening | 4 | | | + + + + + | Medication | | | | | Management | 4 | | | + + [...] + + | Lung Cancer | | 08/18/19 | | | Screening | 9 | 18, | | | | | 08/18/19 | | | | | 18, | | | | | 05/07/19 | | | | | 18 | | + + + + + | Med Mgmt: Cr | | 08/24/19 | | | | 9 | 18, | | | | | 08/23/19 | | | | | 18, | | | | | 08/21/19 | | | | | 18, | | | | | Addition | | | | | al | | | | | history | | | | | exists | | + + + + + | Med Mgmt: K | | 08/24/19 | | | | 9 | 18, | | | | | 08/23/19 | | | | | 18, | | | | | 08/21/19 | | | | | 18, | | | | | Addition | | | | | al | | | | | history | | | | | exists | | + + + + + | Vaccine: | | 12/31/19 | | | Pneumococcal 65+ (2 | 9 | 18, | | | of 2 - PPSV23) | | 01/08/20 | | | | | 14 | | + + + + + | Vaccine: Influenza | | 10/29/19 | | | (#1) | 0 | 18, | | | | | 04/28/19 | | | | | 18, | | | | | 11/19/19 | | | | | 16, | | | | | Addition | | | | | al | | | | | history | | | | | exists | | + + + + + | Vaccine: | | 04/28/19 | | | Dtap/Tdap/Td (3 - | 8 | 18, | | | Td) | | 07/13/19 | | | | | 17, | | | | | 04/01/19 | | | | | 05 | | + + + + + | Vaccine: Zoster | Completed | 06/20/19 | | | | | 19, | | | | | 10/29/19 | | | | | 18, | | | | | 07/13/19 | | | | | 17 | | + + + + + [...] | | | | | 2021 | /[id number] | | 1 on 08/18/2017 by Dilcia, [...] +--------+ +---------+--------+ | MEDICARE | MEDICA | [id number] | 06/13/19 | [phone] | | Medica | | | RE | | 19-Pre | 5 | | re | | | PART A | | sent | | | | | | AND B | | | | | | + +--------+ +--------+ +---------+--------+ | [employer] | MODA | [id number] | Effect | [phone] | | Medica | | MEDICAID HMO | HEALTH | | waldemar | 1 | | id | | | MDCD | | for | | | | | | HMO [place] | | all | | | | | | | | dates | | | | + +--------+ +--------+ +---------+--------+ + +--------+ +--------+ + + | Guarantor Name | Accoun | Relation to | Date | Phone | Billing Address | | | t Type | Patient | of | | | | | | | | | | + +--------+ +--------+ + + | Jared,Amy Julianne | Person | Self [birth year] | [address] | | | al/Fam | | 1956 | [phone] | [place], [place] | | | [place] | | | [address] (Home) | [address] | + +--------+ +--------+ + + | JaredAmy Julianne | Person | Self [birth year] | [address] | | | al/Fam | | 1956 | [phone] | [place], [place] | | | [place] | | | [address] (Home) | [address] | + +--------+ +--------+ + + Advance Directives + + + + + | Type | Date Recorded | Patient | Explanation | | | | Class C Driver | | + + + + + | Power of | | | | | Forging Die Finisher | | | | + + + [...]
--- OUTSIDE RECORDS SUMMARY | ~2019-12-20 | XMS | Encounter Summary ---
Demographics + + + | Address | [address] | | | [place] [address] | + + + | Home Phone | | + + + | Preferred Language | Unknown | + + + | Marital Status | | + + + | Worship Affiliation | 1028 | + + + | Race | White | + + + | Ethnic Group | Not or | + + + Author + + + | Author | [facility] | | | and [place] | + + + | Organization | [facility] | | | and [place] | + + + | Address | Unknown | + + + | Phone | Unavailable | + + + Support + + + + + | Name | Relationship | Address | Phone | + + + + + | Joseluis Desai | [place]ER[place] | [place] | | | | | [address] | | + + + + + | Mila Desai | ECON | Unknown | | + + + + + Care Team Providers + +------+ + | Care Campaign Director Name | Role | Phone | + [...] | | | [address] | [place] [address] | | | | | [place] [address] | | | | | | [phone] | | | +--------+ + + + [...] [place] | | | | | | [id number] | | | | | | | [...]
--- OUTSIDE RECORDS SUMMARY | ~2019-12-20 | XMS | Encounter Summary ---
Demographics + + + | Address | [address] | | | [place] [address] | + + + | Home Phone | | + + + | Preferred Language | Unknown | + + + | Marital Status | | + + + | Buddhism Affiliation | 1028 | + + + [...] | [place] | | | | | [address] | | + + + + + | Mila Desai | ECON | Unknown | | + + + + + Care Team Providers + +------+ + | Care Electric Motor Control Assembler Name | Role | Phone | [...] | [facility] [address] [facility] | | | | | [address] [place], [place] | [place] [address] | | | | | [address] | [phone] | | | | | [phone] | | | +--------+ + + + [...] [place] | | | | | | [address] | | | | | | | | +--------+---------+ + + + documented as of this encounter Visit Diagnoses Not on filedocumented in this encounter"
--- OUTSIDE RECORDS SUMMARY | ~2019-12-20 | XMS | Encounter Summary ---
Demographics + + + | Address | [address] | | | [place] [address] | + + + | Home Phone | | + + + | Preferred Language | Unknown | + + + | Marital Status | | + + + | Bahai Affiliation | 1028 | + + + | Race | White | + + + | Ethnic Group | Not or | + + + Author + + + | Author | [facility] | | | and [place] | + + + | Organization | [facility] | | | and [place] | + + + | Address | Unknown | + + + | Phone | Unavailable | + + + Support + + + + + | Name | Relationship | Address | Phone | + + + + + | Joseluis Desai | ECON | [place] | | | | | [phone] | | + + + + + | Mila Desai | ECON | Unknown | | + + + + + Care Team Providers + +------+ + | Care Critical Care Nurse Specialist Name | Role | Phone | [...] 08/18/ | Surgery | GILBERTO NICHOLAS | [place], | Gastric Artery | | 2017 | | [facility] | MD [address] | Embolization with | | | | INTRA [address] | 2mm x 8cm coil and | | | | TAMIKO Lombardi | [place] [address] | [place] [address] | | | | [address] | [phone] | embolic | | | | [phone] | | | +--------+---------+ + + + [...] + + + | Blood Pressure | 101/57 | 08/18/2017 3:30 PM | | | | | PDT | | + + + + + | Pulse | 112 | 08/18/2017 3:30 PM | | | | | PDT | | + + + + + | Temperature | 37.2 C (99 F) | 08/18/2017 2:05 PM | | | | | PDT | | + + + + + | Respiratory Rate | 18 | 08/18/2017 3:30 PM | | | | | PDT | | + + + + + | Oxygen Saturation | 97% | 08/18/2017 3:30 PM | | | | | PDT | | + + + + + | Inhaled Oxygen | - | - | | | Concentration | | | | + + + + + | Weight | 69.2 kg (152 lb 8.9 | 08/18/2017 2:23 AM | | | | oz) | [...] Follow Up Appointments: Bry Vaughn DO [address] [place] [address] Schedule an appointment as soon as possible for a visit Discharge Disposition: Home Consultants This Admission: Vascular surgery, General Surgery, Interventional Radiology Hospital Course: Amy Coleman is a 62-year-old female with past medical history significant for COPD, CAD s/p NSTEMI ( no PCI), who was transferred to [facility] for ICU care from [place] on 08/17 wh ere she was intubated [...] going home to continue duo nebs at [facility]. She is being discharged today in [...] this chart may have been created with [employer] voice recognition software. Occasi onal wrong-word or [...] urine. Belly (abdominal) pain Date Last Reviewed: 09/12/201519991150-8066 [employer] [address] [place] [address]. All righ ts reserved. This information is [...] several hours. You may go home the . Or you may stay in the hospital or surgery center one or more nights. Follow any inst ructions you have been given about recovering at home. Date Last Reviewed: 02/12/201619990314-4294 [employer] [address] [place] [address]. All righ ts reserved. This information is not intended as a substitute for professional medical care. Always follow your healthcare professional's instructions. [facility] Patient Belongings Amy Coleman 1955 Patient Signature: Clinician/Jigsaw Operator Signature: Discharge Instructions: After Your Surgery You [...] you feel better. Take it as rosalie emery efore pain becomes severe. Also, ask your [...] interact with your prescription medicines or other qwah-twn-dzzyrgz (OTC) medicines. Some prescription medicines have acetaminophen and other ingredients.Using both prescription a nd OTC acetaminophenfor paincan cause you to overdose. Readthe labels on your OTC [facility] care. This will help youto clearly [...] of taking these medicines. Date Last Reviewed: 02/12/201619990117-3798 [employer] [address] [place] [address], [place] [address]. All righ ts reserved. This information is [...] is a 62 year old female from [place], [place] with [facility] Plan Medicaid insurance. SW received referral for [...] ( no PCI), who was transferred to [facility] for ICU care from [place] on [place]/17 wh ere she was intubated [...] 08/22/17 0833 Last data filed at 08/21/17 194 Gross per 24 hour Intake 620 ml [...] - Single Lumen 05/08/17 0130 Left Forearm dwjs-eja-bbukjk catheter syst em 20 gauge 106 days [...] this chart may have been created with [employer] voice recognition software. Occasi onal wrong-word or sound-alike substitutions may have occurred due to the inherent lobo itations of voice recognition software. Please read the chart carefully and recognize, using context, where these substitutions have occurred Krzysztof Ordaz MD - 08/21/2017 5:47 PM PDTFormatting of this note might be different f rom the original. [facility] Surgery Team Hospital Day: 5 DATE/TIME: [...] Signed by: Krzysztof Montaño MD, 08/21/2017 17:47 [facility] ope, Riky Avendaño MD - 08/21/2017 9:49 AM PDT Patient: Amy Coleman Date of : 1955 Admit Date: 08/17/2017 Date of Service: 08/21/2017 PCP: Bry Vaughn DO Hospital Day: Hospital Day: 5 Hospital Course: Amy Coleman is a 62-year-old female with past medical history significant for COPD, CAD s/p NSTEMI ( no PCI), who was transferred to [facility] for ICU care from [place] on 08/17 wh ere she was intubated [...] - Single Lumen 05/08/17 0130 Left Forearm uuhk-giv-grnqlq catheter syst em 20 gauge 105 days [...] Hold Result Value Ref Range Product Code E5111N66 UNIT # [id number] UNIT ABO O UNIT RH POS Unit Status IS Blood Product Expiration Date and Time 844387233119 Product Blood Type Barcode 5100 Product Code C8033H50 UNIT # [id number] UNIT ABO O UNIT RH POS Unit Status RE Blood Product Expiration Date and Time 492599306042 Product Blood Type Barcode 5100 Hemoglobin and [...] this chart may have been created with [employer] voice recognition software. Occasi onal wrong-word or sound-alike substitutions may have occurred due to the inherent lobo itations of voice recognition software. Please read the chart carefully and recognize, using context, where these substitutions have occurred Krzysztof Ordaz MD - 08/20/2017 12:23 PM PDTFormatting of this note might be different f rom the original. [facility] [place] [facility] Surgery Team Hospital Day: 4 DATE/TIME: [...] Signed by: Krzysztof Montaño MD, 08/20/2017 12:23 [facility] Nadia Blount MD - 08/20/2017 10:02 AM PDT Patient: Amy Coleman Date of : 1955 Admit Date: 08/17/2017 Date of Service: 08/20/2017 PCP: Bry Vaughn DO Hospital Day: Hospital Day: 4 Hospital Course: Amy Coleman is a 62-year-old female with past medical history significant for COPD, CAD s/p NSTEMI ( no PCI), who was transferred to [facility] for ICU care from [place] on 08/17 ere she was intubated for [...] Objective: Vital Signs 08/18 699 - 08/19 0559 08/19 699 - 08/20 0659 08/20 699 [...] - Single Lumen 05/08/17 0130 Left Forearm suro-yjq-srxqaw catheter syst em 20 gauge 104 days [...] this chart may have been created with [employer] voice recognition software. Occasi onal wrong-word or sound-alike substitutions may have occurred due to the inherent lobo itations of voice recognition software. 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 Scheduled bowel meds started. Indwelling Bladder Catheter [...] LABORATORY: I personally reviewed recent labs in [facility] and ordered appropriate follow-up domonique dies. [...] Component Value Date PHART 7.36 (L) 08/19/2017 [id number] 44 (H) 08/19/2017 PO2ART 91 (H) 08/19/2017 [id number] 13.3 (L) 08/19/2017 WLC6HWG 25.2 08/19/2017 BEART -0.2 08/19/2017 CARBOXYHGB 1.0 [...] this chart may have been created with [employer] voice recognition software. Occasi onal wrong-word or sound-alike substitutions may have occurred due to the inherent lobo itations of voice recognition software. Please read the chart carefully and recognize, using context, where these substitutions have occurred. Krzysztof Ordaz MD - 08/19/2017 2:04 PM PDT [facility] General Surgery Team Hospital Day: 3 DATE/TIME: [...] Signed by: Krzysztof Montaño MD, 08/19/2017 14:05 [facility] Jarocho Saldaña RRT - 08/19/2017 10:10 AM PDT 08/19/17 1009 Respiratory Assessment Interventions ~ Patient Assessment ~ Multi-disciplinary Rounds Continue current care. Q4 DuonebsElectronically signed by Jarocho Luther RRT at 2017 10:10 AM PDTVolodymyr Teague RRT - 08/19/2017 9:19 AM PDTPt extubated [...] Coleman DATE OF : 1955 MED RECORD: [id number] ASSESSMENT/PLAN PROCEDURE: mesenteric angiogram 08/18 ASSESSMENT: 1. 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 Scheduled bowel meds started. Indwelling Bladder Catheter [...] LABORATORY: I personally reviewed recent labs in [facility] and ordered appropriate follow-up domonique dies. Recent Labs Lab 08/19/1730508/18/17232708/18/17201808/18/17 0523 08/18/17 0209 WBC -- 11.8* -- -- 19.6* 19.0* HGB 7.5* 7.5* 7.9* < > 11.4 11.6 HCT 21.5* 21.4* 24.3* < > 32.5* 33.4* PLT -- Decreased | 116* -- -- 159 147* < > = values in this interval not displayed. Recent Labs Lab 08/19/1730508/18/17201808/18/17 1156 08/18/17 0523 08/17/17 2239 08/17/17 2235 [...] -- -- -- 3.3 Recent Labs Lab 08/19/1730508/18/17 2328 08/18/17 2019 LACTATE 1.8 1.8 2.7* Recent Labs Lab 08/17/17 2241 INR 1.3* No results for input(s): TROPONIN, BNP in the last 168 hours. Invalid input(s): CKTOTAL Lab Results Component Value Date PHART 7.34 (L) 08/18/2017 ZZL1QNA 39 08/18/2017 PO2ART 139 (H) 08/18/2017 [id number] 11.2 (L) 08/18/2017 UAH3XRV 21.2 (L) 08/18/2017 BEART -4.5 (L) 08/18/2017 [...] this chart may have been created with [employer] voice recognition software. Occasi onal wrong-word or [...] 6:28 AM PDT Critical Care Progress Note [facility] Date of Service: 08/18/2017 Admit [...] sease only, no PCI) presented to OSH ([place]) initially w/ c/o SOB and was intubated for acute on chronic respiratory failure (ABG prior to intubation: 7.0/98/217/26). Pt then developed hypotension/HD instability for which she required 2 pressors. hgb fell from 15-- >4 and pt rc'd 6u PRBCs, 2uFFP, 1u PLT, 5L NS. CT abdomen showed RP hematoma and pt was tra nsferred to [facility] for further eval of this. 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 Gen surgery consulted as w ell as vascular to determine best approach to vascular issues given high potential for re bl eed. Summary of Significant Events: 08/17: Admitted to [facility]. Intubated. To IR 08/18: Awake, alert. 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 PRN bowel meds available. Indwelling Bladder Catheter Indication: Vasopressors for hemodynamic instability Subjective 24hr interval history: Transferred from [place], [place] to [facility] Afebrile Rc'd 6u PRBCs, 2u FFP, 1u [...] LABORATORY: I personally reviewed recent labs in [facility] and ordered appropriate follow-up domonique dies. Recent Labs Lab 08/18/17 0527 08/18/17 0523 08/18/17 0209 08/17/17224008/17/17 223 WBC -- 19.6* 19.0* -- -- 18.5* [...] -- -- 3.3 Recent Labs Lab 08/18/17 05 LACTATE 2.0* Recent Labs Lab 08/17/172240 INR 1.3* No results for input(s): TROPONIN, BNP in the last 168 hours. Invalid input(s): CKTOTAL Lab Results Component Value Date PHART 7.39 08/18/2017 [id number] 32 08/18/2017 PO2ART 108 (H) 08/18/2017 [id number] 16.2 08/18/2017 ARZ0TIF 19.4 (L) 08/18/2017 BEART -5.6 (L) 08/18/2017 [...] this chart may have been created with [employer] voice recognition software. Occasi onal wrong-word or sound-alike substitutions may have occurred due to the inherent lobo itations of voice recognition software. Please read the chart carefully and recognize, using context, where these substitutions have occurred. Associated attestation - Vikram James MD - 08/18/2017 8:56 AM PDT Physician Attestation Note [facility] Date of Service: 08/18/2017 Reason for critical care: Hemorrhagic shock secondary to intra-abdominal bleeding I reviewed and discussed the patient history, assessment and plan with the KOLE, during pers onal discussion and/or multi-disciplinary rounds. Acute issues or additions to plan of care: 62 year old lady with PMH of COPD, CAD s/p NSTEMI (no PCI, mild disease) presented to [facility] on 08/16 with shortness of [...] this chart may have been created with [employer] voice recognition software. Occasi onal wrong-word or [...] riginal. . Critical Care-Care Progress Note Update [facility] Date of Service: 08/17/2017 Admit [...] called and discussed plans with son, Joseluis ([phone]). He expre ssed understanding and wanted to [...] this chart may have been created with [employer] voice recognition software. Occasi onal wrong-word or [...] PDT Critical Care Admission History and Physical [facility] Intensive Care Unit Pt. Name: Amy Coleman Age: 62 y.o. : 1955 Code Status: TBD - Full Code by default Date of Admission: 08/17/2017 Primary Care Physician: Bry Vaughn DO Attending: Faby Rodriguez MD Subjective Chief Concern: Abdominal bleed History of Present Illness: 62 yo F patient with PMH of COPD and previous NE was transferred from [facility] to [facility] ICU for further care of shock and management of abdominal bleed. Mike collier this morning presented herself to the ER at the OSH where she c/o SOB., quickly decompensa calli requiring intubation and ventilation. Her ABG before intubation was / which im proved after ventilation. Patient soon [...] CV LHC; Surgeon: Johnny Luther MD; Location: [facility] CV LAB Social History: Social [...] 1:3.90 (08/17 2204) Peak Airway Pressure: 23 (08/17 2204) Physical Exam: General: responses to command, squeezes [...] 0.4 ALBUMIN -- 3.3 Recent Labs Lab 06/06/18 2239 PHART 7.33* PO2ART 193* SCY6SZQ 35 BEART -7.8* No results for input(s): [...] discussed the plan Lalito Huggins Lloyd : [phone] I expect this patient will be hospitalized for greater than 2 midnights. I expect the post-hospital plan to be determined once additional information is obtained. Electronically signed by: Diana Boyle MD, 08/18/2017, 0:23 Associated attestation - Faby Rodriguez MD - 08/18/2017 5:15 AM PDTFormatting of this note m ight be different from the original. . Physician Attestation Note [facility] Date of Service: 08/18/2017 Reason [...] with mild disease, no PCI) presented to [facility] late evening 08/16 with hypoxemic/hyp ercarbic respiratory [...] large low density mass in left abdomen [id number] with active extravasation is several locations, ?branches of celiac or SMA. MTP protocol initiated. Stabilized. OSH physicians discussed with critical care, surgery an d interventional radiology and pt transferred to [facility]. Upon arrival, she is relatively stable on [...] this chart may have been created with [employer] voice recognition software. Occasi onal wrong-word or sound-alike substitutions may have occurred due to the inherent lobo itations of voice recognition software. Please read the chart carefully and recognize, using context, where these substitutions have occurred. documented in this encounter Consult Notes Johnny Harmon MD - 08/18/2017 1:29 PM PDTFormatting of this note might be different fro m the original. [facility] [place] VASCULAR CONSULTATION PATIENT NAME: Amy Coleman : [...] is chemia. This was discussed with the abhdrzvg-rv-vov and grandson, and also with the intubat [...] Dr Minor. 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 She arrived intubated. She already had recei shola at least 6 units of PRBC. She underwent diagnostic mesenteric angiogram early this morn ing. I reviewed that study extensively with interventional [...] pulmonary disease) ([facility]) and NS STANLEY (non-ST elevated myocardial infarction) ([facility]). Allergies Allergen Reactions Amoxicillin Cephalexin Hydroxyzine Hcl [...] CV LHC; Surgeon: Johnny Luther MD; Location: [facility] CV LAB Family History: Her [...] Bladder 127 24 98 % - - 06/07/18 0400 92/64 - - 106 18 98 [...] Negative UROBILINOGEN UA <2.0 <2.0 mg/dL Specific Muir >1.060 (H) 1.001 - 1.030 PH UA [...] signed by: Johnny Harmon MD, 08/18/2017 13:35 Pedro Wilder MD - 08/18/2017 12:21 AM PDT [facility] GENERAL SURGERY CONSULT Primary Care Physician: Bry [...] CV LHC; Surgeon: Johnny Luther MD; Location: [facility] CV LAB MEDICATIONS PRIOR TO [...] Signed by: Pedro Londono MD, 08/18/2017 0:21 [facility] documented in thi s encounter Miscellaneous Notes [...] Plan to continue current therapy. lan of Constance Mendez RN - 08/23/2017 12:56 PM PDTCTC received [...] follow up timeframe. Pt notified lan of Leonidas Willard RN - 2017 4:55 AM PDT Problem: [...] None Code Status: Full Code Item for rework operator Comments Shift Summary: Pt is alert and oriented. Pain managed w/ Duncan 5 x 1 tab. Frequent heartburn/indigestion. Tums [...] Bowel Movement: 08/20/17 (08/21/17 1600) Pain Management: Duncan Next Dose: CAM CAM Score: no MD Notification: Notification Provider Name/Title: Dr Roman (08/20/171511) Reason for Communication: Critical lab value with read back verification (08/20/171511) Method of Communication: Call (08/20/171511) Certified Medical Technician Assistant for Provider: Sammie RN (08/20/171511) Response: See orders (08/20/171511) Vitals: 08/22/17 [...] 93 05/10/2017 1130 lan of Care - [place] Cent[place], JOSEFA - 08/23/2017 4:14 AM PDTProblem: Patient Care [...] None Code Status: Full Code Item for rework operator Comments Shift Summary: Alert and oriented x4, VSS, up independently in room and halls. Denies pain. S/P embolization of right visceral artery. ANticipating D/C tomorrow. Patient lives in [facility] and needs advanced notice of D/C to notify her ride to come pick her up. Call light w sunshinein reach, will continue to monitor. This evening complained of upper abdominal/chest pain/tightness, rated 6/10. Had moderate a mount of relief with newly ordered GI cocktail. Then complained of head/neck pain and given norco x1. Dx/Tx: Procedure(s) (LRB): Gastric Artery Embolization with 2mm x 8cm coil and [place] 34 and 18 embolic (N/A) Anesthesia Type [...] verification (08/20/171511) Method of Communication: Call (08/20/171511) Certified Medical Technician Assistant for Provider: Sammie RN (08/20/171511) Response: See orders (08/20/171511) Vitals: 08/22/17 [...] 05/10/2017 1130 lan of Care - Nicolás Mello, MANAGER STRATEGIC - 08/22/2017 4:45 PM PDTProblem: Patient Care [...] None Code Status: Full Code Item for rework operator Comments Shift Summary: Pt is alert and oriented. Denied pain through night Right groin dressing with dried drainage Tolerates , denies nausea Rested well Dx/Tx: Procedure(s) (LRB): Gastric Artery Embolization with 2mm x 8cm coil and [place] 34 and 18 embolic (N/A) Anesthesia Type [...] verification (08/20/171511) Method of Communication: Call (08/20/171511) Certified Medical Technician Assistant for Provider: Sammie NUNEZ (08/20/171511) Response: See orders (08/20/171511) Vitals: 08/21/17 1949 08/21/17 2304 08/22/17 0047 08/22/17 0457 BP: 117/77 125/77 Pulse: 81 89 87 82 Resp: Temp: 36.6 C (97.9 F) 36.2 C (97.1 F) TempSrc: Temporal Temporal SpO2: 94% 93% 94% 91% Weight: Height: Component Value Date/Time POCGLU 107 05/11/2017 1143 POCGLU 130 (H) 05/10/2017 2057 POCGLU 113 (H) 05/10/2017 1654 POCGLU 93 05/10/2017 1130 lan of Care - Sowmya Cevallos, MANAGER STRATEGIC - 08/22/2017 4:58 AM PDTProblem: Patient Care [...] continue current therapy. lan of Care - H Armando elizabeth RN - 08/21/2017 11:03 PM PDTFormatting of this note might be different from t he original. Problem: Patient Care Overview (Adult) Goal: [...] None Code Status: Full Code Item for rework operator Comments Shift Summary: Patient up indp to bathroom and hallway. PICC to LUE double lumen, CDI. Pain tolerable, denies nausea. Resting at this time, will continue to monitor. Possible discharge in AM. Electronically signed by: ARMANDO MONTEIRO RN 08/21/2017 23:02 Dx/Tx: Procedure(s) (LRB): Gastric Artery Embolization with 2mm x 8cm coil and [place] 34 and 18 embolic (N/A) Anesthesia Type [...] verification (08/20/171511) Method of Communication: Call (08/20/171511) Certified Medical Technician Assistant for Provider: Sammie RN (08/20/171511) Response: See orders (08/20/171511) Vitals: 08/21/17 1208 08/21/17 1527 08/21/17 1631 08/21/17 1949 BP: 119/77 117/77 Pulse: 88 81 74 81 Resp: 16 20 18 Temp: 36.9 C (98.5 F) 36.6 C (97.9 F) TempSrc: Temporal Temporal SpO2: 90% 94% 92% 94% Weight: Height: Component Value Date/Time POCGLU 107 05/11/2017 1143 POCGLU 130 (H) 05/10/2017 2057 POCGLU 113 (H) 05/10/2017 1654 POCGLU 93 05/10/2017 1130 lan of Samara - Sarah Cortes, PT - 08/21/2017 3:05 PM Sarah AMEZQUITA co-signed note and indicated score of 23/24 on DGI per chart review of Rowan Levine, PT treatment and documentation. Sarah Ericjerrod 08/21/2017 15:30 Problem: Patient Care Overview (Adult) [...] Supine: independent Goal Status: met Level of [place]: independent Transfers Bed to Chair: not tested Chair to Bed: not tested Utilizing: other (see comments) (hand hold assist) Sit to Stand: independent Stand to Sit: independent Utilizing: none Status: met [place] Level: independent Gait Level of Assist: independent Utilizes: none Distance: 300 Goal Status: met Goal: independent Device: none Distance: 150' Stairs # of stairs: 12 Handrail Location: left side (ascending) Level of [place]: independent Utilizes: 1 rail Technique: step over step (ascending) Maintain WB Status: able to maintain weight bearing status STG Status: met Level of [place]: modified independent # of stairs: 6 Utilizes: 1 rail Electronically signed by: Rowan Levine PTA 08/21/2017 15:03 Thank you for requesting Acute Care Therapy Services to participate in the care of Amy Coleman . We appreciate the opportunity to be of assistance. lan of Care - Lilian Augustine RN - 08/21/2017 1:29 PM PDTMet with [...] number to reach at after discharge is [phone]. lan of Care - Sammie Hare RN - 018 1:17 [...] None Code Status: Full Code Item for rework operator Comments Shift Summary: Pt A&Ox4 calm, pleasant Pt OOB to work with PT and for shower Pt tolerating general diet Pt modified independence for ambulation, continue to encourage ambulation Dressings on bilateral arms/L neck remain CDI, R groin dressing has old, dried drainage wit h no swelling/hematoma/pain noted Pt denies pain/discomfort Dx/Tx: Procedure(s) (LRB): Gastric Artery Embolization with 2mm x 8cm coil and [place] 34 and 18 embolic (N/A) Anesthesia Type [...] verification (08/20/171511) Method of Communication: Call (08/20/171511) Certified Medical Technician Assistant for Provider: Sammie NUNEZ (08/20/171511) Response: See orders (08/20/171511) Vitals: 08/21/17 0440 08/21/17 0752 08/21/17 0800 08/21/17 1208 BP: 146/74 Pulse: 86 87 93 88 Resp: 16 16 16 Temp: 36.4 C (97.6 F) TempSrc: Oral SpO2: 98% 92% 97% 90% Weight: Height: Component Value Date/Time POCGLU 107 05/11/2017 1143 POCGLU 130 (H) 05/10/20172056 POCGLU 113 (H) 05/10/2017 1654 POCGLU 93 05/10/2017 1130 lan of Care - Drew gautam, Gwen Yousif, MANAGER STRATEGIC - 08/21/2017 12:10 PM PDTProblem: Patient Care [...] to continue current therapy. ospital Course - [place], Riky Avendaño MD - 08/21/2017 9:50 AM PDTDiane Julianne Coleman is a 62-year-old femal e with past medical history significant for COPD, CAD s/p NSTEMI ( no PCI), who was transfer red to [facility] for ICU care from [place] on 08/17 where she was intubated for [...] None Code Status: Full Code Item for rework operator Comments Shift Summary: A/O. No pain reported. [...] verification (08/20/171511) Method of Communication: Call (08/20/171511) Certified Medical Technician Assistant for Provider: Sammie NUNEZ (08/20/171511) Response: See orders (08/20/171511) Vitals: 08/21/17 0027 08/21/17 0045 08/21/17 0440 [...] None Code Status: Full Code Item for rework operator Comments Shift Summary: Pt oriented. PICC line, [...] verification (08/20/171511) Method of Communication: Call (08/20/171511) Certified Medical Technician Assistant for Provider: Sammie NUNEZ (08/20/171511) Response: See [...] 93 05/10/2017 1130 lan of Care - Sammie Hare RN - 08/20/2017 2:27 [...] None Code Status: Full Code Item for rework operator Comments Shift Summary: Pt arrived to the [...] Embolization with 2mm x 8cm coil and [place] 34 and 18 embolic (N/A) Anesthesia Type [...] Method of Communication: Face to face (08/20/17899) Certified Medical Technician Assistant for Provider: Jethro Guthrie RN (08/20/17899) Response: [...] 93 05/10/2017 1130 lan of Care - [facility] evelyn, Lucian Virk RN - 08/20/2017 1:24 PM PDTProblem: Patient [...] 13:24 lan of Care - Jarocho Patel RRT - 08/20/2017 11:44 AM PDTProblem: Patient Care [...] e Screening Note Summary: Acknowledge orders for SHOE PARTS MOLDER swallow evaluation per extubation protocol. OME: WFL. Pt. takin g clear liquids per surgery team without deficits. No overt s/s aspiration noted with consec utive swallows of thin liquids with SHOE PARTS MOLDER. Recommend diet advancement per surgery team. SHOE PARTS MOLDER to s/off, please reorder if status changes. Electronically signed by: Jumana Sarmiento Speech Pathologist 08/20/2017 10:35 Plan of Care - Erasmo Herron RN - 08/20/2017 6:23 AM PDTProblem: Patient [...] transfer to the floor today. lan of Care - Volodymyr Butcher, MANAGER STRATEGIC - 08/20/2017 3:35 AM PDTProblem: Patient Care [...] to continue w/ current care. lan of Care - Dorcas Troncoso RN - 08/19/2017 6:10 [...] am. lan of Care - Jarocho Milan RRT - 08/19/2017 3:28 PM PDTProblem: Patient Care [...] continue current therapy. lan of Care - Sarah Henderson, PT - 08/19/2017 9:49 AM PDTPhysical Therapy Plan of Care Initial Evaluation Note Summary: Patient is a 62 year old female admitted with COPD with GI bleed, s/p coil [facility] ization of R gastric artery on 08/18. At baseline, she is independent with ADLs and mobility, but has most recently only been able to walk ~150' around house before needing a rest break. She was extubated ~30 minutes prior to PT evaluation. Patient completed supine to sit with min A. She sat on edge of bed [id number] with some dizziness, which lessened over time. [...] chair ) Goal Status: new Level of [place]: independent Transfers Bed to Chair: minimal assist (75% patient effort), 2 person assist required Chair to Bed: minimal assist (75% patient effort), 2 person assist required Utilizing: other (see comments) (hand hold assist) Sit to Stand: contact guard assist Stand to Sit: contact guard assist Utilizing: none Status: new [place] Level: independent Gait Level of Assist: not tested Goal Status: new Goal: independent Device: none Distance: 150' Stairs Comments: STG Status: new Level of [place]: modified independent # of stairs: 6 Utilizes: [...] be of assistance. lan of Care - Erasmo Campuzano RN - 08/19/2017 5:33 AM PDTProblem: Patient [...] on Fentanyl 50 and levophed 8. lan of Care - Volodymyr Butcher, MANAGER STRATEGIC - 08/19/2017 3:43 AM PDTProblem: Patient Care [...] Plan to continue wean as tolerated lan of Care - Dorcas Troncoso RN - 08/18/2017 7:51 PM PDTProblem: Patient [...] extubation tonight or in am. lan of Samara - Armando Jones, MANAGER STRATEGIC - 08/18/2017 5:53 PM PDTProblem: Patient Care [...] continue current support Goal Evaluation: edation Documentatio Yael Madrigal Technologist - 08/18/2017 4:11 PM PDTSuccessful embolization of gas tric artery branches with a Barricade coil and multiple doses of Rod 34 and Rod 18 liquid embolic. Sheath removed and 6 Fr Angioseal used to close groin access. Sterile dressing appl ied. lan of Ever Solano RN - 08/18/2017 7:53 AM PDTProblem: Patient [...] RESTRAINT GOALS: Outcome: Unchanged Goal Evaluation: IR [id number] to determine source of LUQ hematoma. No bleed found, however multiple aneury sms found on gastric arteries (see IR note for more detail). Received 5L fluid + 6 unit RBC + 2 unit FFP + 1 unit platelets at outlying facility/in transit to [facility]. Neuro: Drowsy, opens eyes to command. Movement [...] skin issues. [facility]. Pain: Able to rate pain by tapping hand on side of bed. Rates pain at 6/10. Daughter in law and grandson in room from [place]. lan of Care - Caleb Forte, MANAGER STRATEGIC - 08/18/2017 4:11 AM PDTProblem: Mechanical Ventilation, [...] Power MD edation Documentation - Merrick Gaines [facility] - 08/18/2017 1:06 AM PDT6 Fr Angioseal used edation Documentation - Merrick Gaines [facility] - 08/18/2017 1: 02 AM PDTSuccessful angiogram ,no angiographic evidence of active bleeding. Abnormal vascula ture . edation Documentation - Jennifer Jordan RN - 08/17/2017 11:57 PM PDTPt arrives from ICU o n monitor and vent per bed with MOBILE APPLICATION ARCHITECT and RT who will remain with pt [...] | | | | | | [place] | | | | | | [address] | | | | | | | [...] | | MEDICAL | | | | [facility] [address], | | CENTER | | | | [place] [address] | | LABORATORY | | | | [...] + | [facility] | [address] | [place] [address] | | | [facility] | | | | | LABORATORY [...] [facility] | | | | Performed by [facility] [address] | | SACRED | | | | [address] [place] | | HEART | | | | [address] | | MEDICAL | | | | [...] + | ANAODILIASneha NICHOL[facility] | [address] | [place] [address] | | | [facility] | | | | | LABORATORY [...] | | MEDICAL | | | | [facility] [address], | | CENTER | | | | [place] [address] | | LABORATORY | | | | [...] + + | [facility]ICHOL[facility] | [address] | [place] [id number] | | | [facility] | | | | | LABORATORY [...] PROVID ENCE | | | | by [facility] [address], | | SACRED | | | | [place] [address] | | HEART | | | |Performed by [facility] [address], [place] [address] | | MEDICA L | | | [...] + | G[facility]ERTO NICHOLAS | [address] | [place] [address] | | | [facility] | | | | | CELESTE [...] [facility] | | | | Performed by [facility] [address] | | SACRED | | | | [address] [place] | | HEART | | | | [address] | | MEDICAL | | | | [...] + + | GILBERTO NICHOLAS | [address] | [place] [address] | | | [facility] | | | | | CELESTE [...] [facility] | | | | Performed by [facility] [address] | | SACRED | | | | [address] [place] | | HEART | | | | [address] | | MEDICAL | | | | [...] + + | GIL[facility]ERTO NICHOLAS | [address] | [place] [address] | | | [facility] | | | | | LABORATORY [...] + + + + | Product | [id number] | | REFERENCE | | | Code | | | [facility] | | | | | | [facility] | | | | | | [facility] | | | | | | BLOOD | | | | | | CENTER | | + + + + + + | UNIT # | [id number] | | REFERENCE | | | | | | [facility] | | | | | | [facility] | | | | | | [facility] | | | | | | BLOOD | | | | | | CENTER | | + + + + + + | UNIT ABO | O | | REFERENCE | | | | | | [facility] | | | | | | [facility] | | | | | | [facility] | | | | | | BLOOD | | | | | | CENTER | | + + + + + + | UNIT RH | POS | | REFERENCE | | | | | | [facility] | | | | | | [facility] | | | | | | [facility] | | | | | | BLOOD | | | | | | CENTER | | + + + + + + | Unit Status | IS | | REFERENCE | | | | | | [facility] | | | | | | [facility] | | | | | | [facility] | | | | | | BLOOD | | | | | | CENTER | | + + + + + + | Blood | [id number] | | REFERENCE | | | Product | | | [facility] | | | Expiration | | | [facility] | | | Date and | | | [facility] | | | Time | | | BLOOD | | | | | | CENTER | | + + + + + + | Product | [id number] | | REFERENCE | | | Blood Type | | | [facility] | | | Barcode | | | [facility] | | | | | | [facility] | | | | | | BLOOD | | | | | | CENTER | | + + + + + + | Product | [id number] | | REFERENCE | | | Code | | | [facility] | | | | | | [facility] | | | | | | [facility] | | | | | | BLOOD | | | | | | CENTER | | + + + + + + | UNIT # | [id number] | | REFERENCE | | | | | | [facility] | | | | | | [facility] | | | | | | [facility] | | | | | | BLOOD | | | | | | CENTER | | + + + + + + | UNIT ABO | O | | REFERENCE | | | | | | [facility] | | | | | | [facility] | | | | | | [facility] | | | | | | BLOOD | | | | | | CENTER | | + + + + + + | UNIT RH | POS | | REFERENCE | | | | | | [facility] | | | | | | [facility] | | | | | | [facility] | | | | | | BLOOD | | | | | | CENTER | | + + + + + + | Unit Status | RE | | REFERENCE | | | | | | [facility] | | | | | | [facility] | | | | | | [facility] | | | | | | BLOOD | | | | | | CENTER | | + + + + + + | Blood | [id number] | | REFERENCE | | | Product | | | [facility] | | | Expiration | | | [facility] | | | Date and | | | [facility] | | | Time | | | BLOOD | | | | | | CENTER | | + + + + + + | Product | [id number] | | REFERENCE | | | Blood Type | | | [facility] | | | Barcode | | | [...] + + + | Specimen Expiration Date: [id number] | REFERENCE LAB | | | [facility] [place] | | | [facility] | | | [facility]OD CENTER | + + + + + + + + | Performing | Address | City/State/Zipcode | Phone Number | | Organization | | | | + + + + + | RE[facility]ENCE LAB | [address] | [place] [address] | [phone] | | [place] | | | | | [facility] [...] [facility] | | | | Performed by [facility] [address] | | SACRED | | | | [address] [place] | | HEART | | | | [address] | | MEDICAL | | | | [...] + + | GILBERTO NICHOLAS | [address] | [place] [address] | | | [facility] | | | | | CELESTE [...] [facility] | | | | Performed by [facility] [address] | mmol/L | [...] + | [facility] | [address] | [place] [address] | | | HEART MEDICAL CENTER | [...] [facility] | | | | Performed by [facility] [address] | mmol/L | SACRED | | | | [address] [place], [place] | | HEART | | | | [address] | | MEDICAL | | | | [...] + + | GILBERTO NICHOLAS | [address] | [place] [id number] | | | [facility] | | | | | LABORATORY [...] [facility] | | | | Performed by [facility] [address] | | SACRED | | | | [address] [place] | | HEART | | | | [address] | | MEDICAL | | | | [...] + + | [facility] | [address] | [place] [address] | | | [facility] | | | | | LABORATORY [...] CENTER | | | | 3.5Performed by [facility] [address] | | LABORATORY | | | | [address] [place], [place] | | [place] | | | | [address] | | | | + + + + + + + + | Specimen | + + | Blood specimen | | (specimen) | + + + + + + + | Performing | Address | City/State/Zipcode | Phone Number | | Organization | | | | + + + + + | [facility] | [address] | [place] | | | [facility] | | | | | LABORATORY [...] [facility] | | | Venous | by [facility] [address], | mmol/L | SACRED | | | | [place] | | HEART | | | |Performed by [facility] [address], [place] | | MEDICAL | | | | [...] + | GILBERTO NICHOLAS | [address] | [place] [address] | | | [facility] CENTER | | | | [...] | | MEDICAL | | | | [facility] [address], | | [place] | | | | [place] [address] | | LABORATORY | | | | [...] + | [facility] | [address] | [place] [address] | | | [facility] | | | | | LABORATORY [...] | PROVID [facility]CE | | | | [facility] [address], | | SACRED | | | | [place] [address] | | HEART | | | |Performed by [facility] [address], [place] [address] | | MEDICA L | | | [...] + + | GILBERTO NICHOLAS | [address] | [place] [address] | | | [facility] | | | | | LABORATORY [...] | [facility] | | | | by [facility] [address], | mmol/L | SACRED | | | | [place] [address] | | HEART | | | |Performed by [facility] [address], [place] [address] | | MEDICAL | | | | [...] + + | GILBERTO NICHOLAS | [address] | [place] [address] | | | [facility] | | | | | LABORATORY [...] mg/dL | [facility] | | | | [facility] [address], | | SACRED | | | | [place] [address] | | HEART | | | |Performed by [facility] [address], [place] [address] | | MEDICAL | | | | [...] + + | GILBERTO NICHOLAS | [address] | [place] [address] | | | [facility] | | | | | LABORATORY [...] CE | | | ARTERIAL | by [facility] [address], | | SACRED | | | | [place] [address] | | HEART | | | |Performed by [facility] [address], [place] [address] | | MEDICAL | | | | [...] + | GILBERTO NICHOLAS | [address] | [place] [address] | | | [facility] | | | | | LABORATORY [...] [facility] | | | | Performed by [facility] [address] | | SACRED | | | | [address] [place] | | HEART | | | | [address] | | MEDICAL | | | | [...] + + | GILBERTO NICHOLAS | [address] | [place] [address] | | | [facility] | | | | | LABORATORY [...] CE | | | ARTERIAL | by [facility] [address], | | SACRED | | | | [place] [address] | | HEART | | | |Performed by [facility] [address], [place] [address] | | MEDICAL | | | | [...] + | GILBERTO NICHOLAS | [address] | [place] [address] | | | [facility] | | | | | CELESTE REYEZ | | | | + + + + + Tricia De La Torre08/19/2017 10:18 AM PDT) + + + + [...] + + + + + | MANJU [employer] TOBACCO [employer] AB | <0.2 | 0.0 - 0.9 [...] | | | | | | [facility] | | | | | | [address] | | | | | | [place] | | | | | | [id number] David J | | | | | | Ph:[phone] | | | | + + + + + + + + | Specimen | + + | Blood specimen | | (specimen) | + + + + + + + | Performing | Address | City/State/Zipcode | Phone Number | | Organization | | | | + + + + + | G[facility]ERTO NICHOLAS | [address] | [place] [address] | | | [facility] | | | | | LABORATORY [...] [facility] | | | Arterial | by [facility] [address], | mmol/L | SACRED | | | | [place] [address] | | HEART | | | |Performed by [facility] [address], [place] [address] | | MEDICAL | | | | [...] + + | GILBERTO NICHOLAS | [address] | [place] [address] | | | [facility] | | | | | CELESTE [...] CE | | | ARTERIAL | by [facility] [address], | | SACRED | | | | [place] [address] | | HEART | | | |Performed by [facility] [address], [place] [address] | | MEDICAL | | | | [...] + + | GILBERTO NICHOLAS | [address] | [place] [address] | | | [facility] | | | | | LABORATORY [...] [facility] | | | | Performed by [facility] [address] | | SACRED | | | | [address] [place] | | HEART | | | | [address] | | MEDICAL | | | | [...] + + | [facility] | [address] | [place] [address] | | | [facility] CENTER | | | | [...] MEDICAL | | | | Performed by [facility] Alexandra Santiago | | [place] | | | | [address] [place], [place] | | LABORATORY | | | | [address] | | [place] | | | | [...] [address] | [place] [address] | | | [facility] | | | | | LABORATORY [...] | | | Arterial | Performed by [facility] [address] | mmol/L | SACRED | | | | [address], [place] | | HEART | | | | [address] | | MEDICAL | | | | [...] + | GILBERTO NICHOLAS | [address] | [place] [address] | | | [facility] | | | | | CELESTE [...] | [facility] | | | | by [facility] [address], | mmol/L | SACRED | | | | [place] [address] | | HEART | | | |Performed by [facility] [address], [place] [address] | | MEDICAL | | | | [...] + | GILBERTO NICHOLAS | [address] | [place] [address] | | | [facility] | | | | | LABORATORY [...] | | | ARTERIAL | Performed by Meghan Santiago | | SACRED | | | | [address] [place] | | HEART | | | | [address] | | MEDICAL | | | | [...] + + | GILBERTO NICHOLAS | [address] | [place] [address] | | | [facility] MEDICAL CENTER | [...] [facility] | | | | Performed by [facility] [address] | | SACRED | | | | [address] [place] | | HEART | | | | [address] | | MEDICAL | | | | [...] + + | GILBERTO NICHOLAS | [address] | [place] [address] | | | [facility] | | | | | CELESTE [...] [facility] | | | Venous | by [facility] [address], | mmol/L | SACRED | | | | [place] [address] | | HEART | | | |Performed by [place] [address], [place] [address] | | MEDICAL | | | | [...] [address] | [place] [address] | | | [facility] | | | | | LABORATORY [...] | | MEDICAL | | | | [facility] [address], | | CENTER | | | | [place] [address] | | LABORATORY | | | | [...] + + | GILBERTO NICHOLAS | [address] | [place] [address] | | | [facility] | | | | | CELESTE [...] | | HEART | | | | [facility] | | MEDICAL | | | [...] IOM | | | | | | ([employer]). | | | | | [...] 2010 | | | | | | Alon; | | | | | | [phone].Performed | | | | | | At: [facility] | | | | | | [id number] | | | | | | [address] [place], [place] | | | | | | [id number] Daniel | | | | | | Allie HU Ph:[phone] | | | | + + + + + + + + | Specimen | + + | Blood specimen | | (specimen) | + + + + + + + | Performing | Address | City/State/Zipcode | Phone Number | | Organization | | | | + + + + + | G[facility] NICHOLAS | [address] | [place] [address] | | | [facility] | | | | | CELESTE [...] [facility] | | | Venous | by [facility] [address], | mmol/L | SACRED | | | | [place] [address] | | HEART | | | |Performed by [place] [address], [place] [address] | | MEDICAL | | | | [...] + + | GILBERTO NICHOLAS | [address] | [place] [address] | | | [facility] | | | | | LABORATORY [...] PROVID ENCE | | | Cells | [facility] [address], | | SACRED | | | | [place] [address] | | HEART | | | |Performed by [facility] [address], [place] [address] | | MEDICA L | | | [...] + | GILBERTO NICHOLAS | [address] | [place] [address] | | | [facility] | | | | | LABORATORY [...] | [facility] | | | | by [facility] [address], | mmol/L | SACRED | | | | [place] [address] | | HEART | | | |Performed by [facility] [address], [place] [address] | | MEDICAL | | | | [...] SACRED | [address] | [place] [address] | | | [facility] | | | | [...] | | | Arterial | Performed by [facility] [address] | mmol/L | SACRED | | | | [address], [place] | | HEART | | | | [address] | | MEDICAL | | | | [...] + + | GILBERTO NICHOLAS | [address] | [place] [address] | | | [facility] | | | | | LABORATORY [...] E | | | Normalized | by [facility] [address], | mg/dL | SACRED | | | | [place] [address] | | HEART | | | |Performed by [facility] [address], [place] [address] | | MEDICAL | | | | [...] + + | GILBERTO NICHOLAS | [address] | [place] [address] | | | [facility] | | | | | CELESTE [...] CE | | | ARTERIAL | by [facility] [address], | | SACRED | | | | [place] [address] | | HEART | | | |Performed by [facility] [address], [place] [address] | | MEDICAL | | | | [...] + | GILBERTO NICHOLAS | [address] [place] [address]. | [place] [address] | | | [facility] | | | | | CELESTE [...] | | | Venous | Performed by [facility] [address] | mmol/L | SACRED | | | | [address] [place] | | HEART | | | | [address] | | MEDICAL | | | | [...] [address] | [place] | | | [facility] | | | | | LABORATORY [...] | [facility] | | | | by [facility] [address], | | SACRED | | | | [place] | | HEART | | | |Performed by [facility] [address], [place] [address] | | MEDICAL | | | | | | CENTER | | | | | | LABORATORY | | | | | | [place] | | + + + + + + + + | Specimen | + + | Blood specimen | | (specimen) | + + + + + | Narrative | Performed At | + + + | sst | [facility] | | | [facility] | | | MEDICAL CENTER | | | LABORATORY | | | [place] | + + + + + + + + | Performing | Address | City/State/Zipcode | Phone Number | | Organization | | | | + + + + + | [facility] | [address] | [place] [address] | | | [facility] | | | | [...] [facility] | | | | Performed by [facility] [address] | | [address], [place], [place] | | HEART | | | | [id number] | | MEDICAL | | | | [...] [facility] | [address] | [place] [address] | | | [facility] | [...] Seldinger technique, a 6 | | | [place] sheath was positioned into the right common femoral artery and | | | attached to a flush system. A 5 Belize[place] Scott 2 catheter was | | | then positioned through a 6 Belizean guiding catheter an utilized to | | [...] | Hemostasis was achieved with a 6 [place]an Angio-Seal device. | | | Maximum sterile [...] | | standard Seldinger technique, a 6 [place] sheath was positioned into | | the right common femoral artery and attached to a flush system. | | | | A 5 Belizean Scott 2 catheter was then positioned through a 6 Belizean | | guiding catheter an utilized to [...] performed. Hemostasis was achieved with a 6 [place]izean | | Angio-Seal device. | | | [...] [facility] | | | | Performed by [facility] [address] | | SACRED | | | | [address] [place] | | HEART | | | | [address] | | MEDICAL | | | | [...] + + | ANALENO NICHOLAS | [address] | [place] [address] | | | [facility] | | | | | LABORATORY [...] | | | Venous | Performed by [facility] [address] | mmol/L | SACRED | | | | [address] [place] | | HEART | | | | [address] | | MEDICAL | | | | [...] | [address] | [place] [address] | | | [facility] | | | | | LABORATORY [...] 4.67 (L) | 4.75 - 5.30 | [facility] | | | Ionized | | mg/dL | YU | | | | | | HEART | | | | | | MEDICAL | | | | | | CENTER | | | | | | LABORATORY | | | | | | CERNER | | + + + + + + | Calcium, pH | 4.66 (L)Comment: | 4.75 - 5.30 | [facility] | | | Normalized | Performed by [facility] [address] | mg/dL | [...] [address] | [place] [address] | | | [facility] | [...] | [facility] | | | | by [facility] [address] [facility], | mmol/L | SACRED | | | | [place] [address] | | HEART | | | |Performed by [facility] [address], [place] [address] | | MEDICAL | | | | [...] + | ANAODILIASneha NICHOLAS | [address] | [place] [address] | | | [facility] | | | | | LABORATORY [...] [facility] | | | | Performed by [facility] [address] | | SACRED | | | | [address] [place], [place] | | HEART | | | | [address] | | MEDICAL | | | | [...] + | GILBERTO NICHOLAS | [address] | [place] [address] | | | HEART [facility] | | | | | CELESTE [...] 7.40 | 7.31 - 7.41 | YUNIOR SILVERIO | | | | | | YU | | | | [...] PROVIDEN CE | | | | by [facility] [address], | | SACRED | | | | [place] [address] | | HEART | | | |Performed by [facility] [address], [place] [address] | | MEDICAL | | | | [...] + + | ANAODILIASneha DANYJAD | [address] | [place] [address] | | | [facility] | | | | | LABORATORY [...] [facility] | | | | Performed by [facility] [address] | | SACRED | | | | [address] [place] | | HEART | | | | [address] | | MEDICAL | | | | [...] + | GILBERTO NICHOLAS | [address] | [place] [id number] | | | [facility] | | | | | LABORATORY [...] | | | REPORT | Performed by [facility] [address] | | SACRED [...] [address] | [place] [id number] | | | HEART MEDICAL CENTER | [...] | | | REPORT | Performed by [facility] [address] | | SACRED | | | | [address] [place] | | HEART | | | | [address] | | MEDICAL | | | | [...] + | GILBERTO NICHOLAS | [address] | [place] [id number] | | | [facility] | | | | | LABORATORY [...] Number [id number] Patient Number | | | [id number] Date of Study 08/18/2017 Visit | | | Number [id number] | | | Referring Physician BRI Sánchez Date of | | | 1955 Director Of Search Engine Marketing Julien Zamora Age | | | 62 year(s) Interpreting | | | [facility] | | | Flight Attendant/Inflight Manager | | | Mara Patton MD Gender | | | Female Nurse | | | Stress Jigsaw Operator Procedure Type of Study TTE procedure: | [...] Atrium Left Ventricle EF | | | Naeaogafg34% | | | Electronically signed by RightsFlowMara kennedy MD(Interpreting physician) on | | | [...] | | | | | | EF Bleavhpcl95% | | | | | + + --+ + + | Procedure Note | + + | Avelino, Daniel Results In - 08/18/2017 11:38 AM PDT Transthoracic Echocardiography Report | | (TTE) Demographics Patient Name MARCELLA MONTAÑO I Room Number 258 Patient | | Number [id number] Date of Study 08/18/2017 Visit Number [id number] | | Referring Physician BRI Sánchez Date of | | 1955 Director Of Search Engine Marketing Julien Zamora Age 62 year(s) | | Interpreting [facility] Flight Attendant/Inflight Manager | | Mara Patton MD Gender | | Female Nurse Stress TechnicianProcedureType of | | Study TTE procedure: ECHO Complete, Add-on Items, COLOR DOPPLER, COMPLETE | | DOPPLER.Procedure dateDate: 08/18/2017Start: 07:21 AMTechnical Quality: Adequate | | visualizationStudy Location: PortableIndications: [facility] 425.4/ I42.9.Patient | | Status: RoutineHeight: 63 [...] Left Atrium Left Ventricle EF | | Naddbvzeh89% | |Conclusions | |Summary | |1. Small [...] Left Ventricle | | | | EF Mzhazsccs52% | + + + +---------+ + + [...] | | | Arterial | Performed by [facility] [address] | mmol/L | SACRED | | | | [address] [place], [place] | | HEART | | | | [address] | | MEDICAL | | | | [...] + | GILBERTO NICHOLAS | [address] | [place] [id number] | | | [facility] | | | | | LABORATORY [...] E | | | Normalized | by [place] [address], | mg/dL | SACRED | | | | [place] [address] | | HEART | | | |Performed by [facility] [address], [place] [address] | | MEDICAL | | | | [...] + + | GILBERTO NICHOLAS | [address] | [place] [id number] | | | [facility] | | | | | LABORATORY [...] GILBERTO | | | | Performed by [facility] [address] | | SACRED [...] + | [facility] | [address] | [place] [address] | | | [facility] MEDICAL CENTER | [...] | 7.39 | 7.37 - 7.47 | YUNIOR CE [...] CE | | | ARTERIAL | by [facility] [address], | | SACRED | | | | [place] [address] | | HEART | | | |Performed by [place] [address], [place] [address] | | MEDICAL | | | | [...] + + | GILBERTO NICHOLAS | [address] | [place] [id number] | | | [facility] | | | | | LABORATORY [...] PROVID ENCE | | | | by [facility] [address], | | SACRED | | | | [place] [address] | | HEART | | | |Performed by [facility] [address], [place] [address] | | MEDICA L | | | [...] + + | GILBERTO NICHOLAS | [address] | [place] [id number] | | | [facility] | | | | | LABORATORY [...] | | LABORATORY | | | | [facility] [address], | | [place] | | | | [place] [address] | | | | + + + + + + + + | Specimen | + + | Blood specimen | | (specimen) | + + + + + + + | Performing | Address | City/State/Zipcode | Phone Number | | Organization | | | | + + + + + | [facility] | [address] | [place] [address] | | | [facility] | | | | | LABORATORY [...] PROVIDE NCE | | | | by [facility] [address], | | SACRED | | | | [place] [address] | | HEART | | | |Performed by [facility] [address], [place] [address] | | MEDICAL | | | | [...] + + | ANAODILIASneha YU | [address] | [place] [id number] | | | [facility] | | | | | CELESTE [...] YUNIOR CE | | | | by [facility] [address], | | SACRED | | | | [place] [address] | | HEART | | | |Performed by [facility] [address], [place] [address] | | MEDICAL | | | | [...] + + | GILBERTO NICHOLAS | [address] | [place] [id number] | | | [facility] | | | | | LABORATORY [...] | | MEDICAL | | | | [facility] [address], | | CENTER | | | | [place] [address] | | LABORATORY | | | | [...] + + | ANAODILIASneha YU | [address] | [place] [id number] | | | [facility] | | | | | LABORATORY [...] | CHAVEZ E | | | | [facility] [address], | | SACRED | | | | [place] [address] | | HEART | | | |Performed by [facility] [address], [place] [address] | | MEDICAL | | | | [...] + | ANAODILIASneha NICHOLAS | [address] | [place] [address] | | | [facility] | | | | | LABORATORY [...] - 1.030 | [facility] | | | [place], | | | SACRED | | | [...] | | | SOURCE | Performed by [facility] [address] | | SACRED | | | | [address] [place] | | HEART | | | | [address] | | MEDICAL | | | | [...] + + | GILBERTO NICHOLAS | [address] | [place] [id number] | | | [facility] | | | | | CELESTE REYEZ | | | | + + + + + KEESHA Velazquez (08/18/2017 2:09 AM PDT) + + + [...] PROVID ENCE | | | | by [facility] [address], | | SACRED | | | | [place] [address] | | HEART | | | |Performed by [facility] [address], [place] [address] | | MEDICA L | | | [...] + + | GILBERTO NICHOLAS | [address] | [place] [address] | | | HEART [facility] | | | | | [...] [facility] | | | Source | by [facility] [address], | | SACRED | | | | [place] [address] | | HEART | | | |Performed by [facility] [address], [place] [address] | | MEDICAL | | | | | | CENTER | | | | | | LABORATORY | | | | | | [place] | | + + + + +- [...] + + | GILBERTO NICHOLAS | [address] | [place] [address] | | | [facility] | | | | [...] and a short | | | 5 Belizean vascular sheath was placed. A 5 Bel[place] Scott 1 catheter | | | was [...] performed and a short | | 5 [place]an vascular sheath was placed. A 5 [place] Scott 1 catheter | | was formed [...] | | | | | seconds.Performed by [facility] | | | | | | [address], | | | | | | [place] [address] | | | | + + + + + + + + | Specimen | + + | Blood specimen | | (specimen) | + + + + + + + | Performing | Address | City/State/Zipcode | Phone Number | | Organization | | | | + + + + + | [facility] | [address] | [place] [address] | | | HEART MEDICAL CENTER | [...] | | | Normalized | Performed by [facility] [address] | mg/dL | SACRED | | | | [address] [place] | | HEART | | | | [address] | | MEDICAL | | | | [...] + + | [facility] | [address] | [place], [place] | | | HEART MEDICAL CENTER [...] | [facility] | | | | by [facility] [address], | mmol/L | SACRED | | | | [place] | | HEART | | | |Performed by [facility] [address], [place] | | MEDICAL | | | [...] + + | GILBERTO NICHOLAS | [address] | [place] [address] | | | [facility] | | | | | LABORATORY [...] | [facility] | | | | by [facility] [address], | mmol/L | SACRED | | | | [place] [address] | | HEART | | | |Performed by [facility] [address] [place] [address] | | MEDICAL | | | | [...] + + | GILBERTO NICHOLAS | [address] | [place] [id number] | | | [facility] | | | | | LABORATORY [...] [facility] | | | | Performed by [facility] [address] | | SACRED [...] SACRED | [address] | [place] [address] | | | HEART MEDICAL CENTER | [...] CE | | | ARTERIAL | by [facility] [address], | | SACRED | | | | [place] [address] | | HEART | | | |Performed by [facility] [address], [place] [address] | | MEDICAL | | | | [...] + | GILBERTO NICHOLAS | [address] | [place] [address] | | | [facility] | | | | | LABORATORY [...] PROVIDE NCE | | | | by [facility] [address], | | SACRED | | | | [place] [address] | | HEART | | | |Performed by [facility] [address], [place] [address] | | MEDICAL | | | | [...] + + | IGLBERTO NICHOLAS | [address] | [place] [id number] | | | [facility] | | | | | LABORATORY [...] | | | | | | LAB [place] | | | | | | [place] | | | | | | [facility] | | | | | | B[facility] | | | | | | CENTER | | + + + + + + | Rh Type | Positive | | REFERENCE | | | | | | LAB [place] | | | | | | [place] | | | | | | [facility] | | | | | | BLOOD | | | | | | CENTER | | + + + + + + + + | Specimen | + + | | + + + + + | Narrative | Performed At | + + + | Specimen Expiration Date: [id number] | REFERENCE LAB | | | [place] | | | [facility] | | | [facility] | + + + + + + + + | Performing | Address | City/State/Zipcode | Phone Number | | Organization | | | | + + + + + | REFERENCE LAB | [address] | [place], [place] | [phone] | | [place] | | | | | [facility] [...] YUNIOR CE | | | | by [facility] [address], | | SACRED | | | | [place] | | HEART | | | |Performed by [facility] [address], [place] | | MEDICAL | | | [...] + + | GILBERTO NICHOLAS | [address] | [place] [address] | | | [facility] | | | | [...] | | MEDICAL | | | | [facility] [address], | | CENTER | | | | [place] [address] | | LABORATORY | | | | [...] + + | [facility] | [address] | [place] [address] | | | [facility] | | | | | LABORATORY [...] JENNIFFER | | | | | | CLAUDIANER | | + + + +------- ------+ [...] ENCE | | | Basophils | by [facility] [address], | K/uL | SACRED | | | | [place] [address] | | HEART | | | |Performed by [facility] [address], [place] [address] | | MEDICA L | | | [...] | [address] | [place] [address] | | | [facility] | | | | | LABORATORY [...] | | | | | | LAB [place] | | | | | | [place] | | | | | | [facility] | | | | | | BLOOD | | | | | | CENTER | | + + + + + + | Rh Type | PositiveComment: Patient | | REFERENCE | | | | is remote crossmatch | | LAB [place] | | | | eligible | | [place] | | | | | | [facility] | | | | | | BLOOD | | | | | | CENTER | | + + + + + + | Antibody | Negative | | REFERENCE | | | Screen | | | LAB [place] | | | | | | [place] [...] + + + | Specimen Expiration Date: [id number] | REFERENCE LAB | | | [place] | | | [facility] | | | [facility] | + + + + + + + + | Performing | Address | City/State/Zipcode | Phone Number | | Organization | | | | + + + + + | REFERENCE LAB | [address] | [place] [address] | [phone] | | [place] | | | | | [facility] [...] | | | | | | [facility] 08/18/17 at 0508 | | | | [...] | | | BID, First dose on Tue08/18/17 at | | | | | | [...] | | | | < 4.75, [facility] 08/18/17 at | | | | | [...]
--- OUTSIDE RECORDS SUMMARY | ~2019-12-20 | XMS | Encounter Summary ---
Demographics + + + | Address | [address] | | | [place] [address] | + + + | Home Phone | | + + + | Preferred Language | Unknown | + + + | Marital Status | | + + + | Shinto Affiliation | 1028 | + + + | Race | White | + + + | Ethnic Group | Not or | + + + Author + + + | Author | [facility] | | | and [place] | + + + | Organization | [facility] | | | and [place] | + + + | Address | Unknown | + + + | Phone | Unavailable | + + + Support + + + + + | Name | Relationship | Address | Phone | + + + + + | Joseluis Desai | ECON | [place] | | | | | [address] | | + + + + + | Mila Desai | ECON | Unknown | | + + + + + Care Team Providers + +------+ + | Care Motor Rebuilder Name | Role | Phone | + [...] [address] | | | | | [place] [place], | [place], [place] | | | | | [place] [address] | [address] | | | | | [phone] | | | +--------+--------+ + + + [...] [place] | | | | | | [address] | | | | | | | | +--------+---------+ + + + documented as of this encounter Visit Diagnoses Not on filedocumented in this encounter"
--- OUTSIDE RECORDS SUMMARY | ~2019-12-20 | XMS | Encounter Summary ---
Demographics + + + | Address | [address] | | | [place] [address] | + + + | Home Phone | | + + + | Preferred Language | Unknown | + + + | Marital Status | | + + + | Jainism Affiliation | 1028 | + + + | Race | White | + + + | Ethnic Group | Not or | + + + Author + + + | Author | [facility] | | | and [place] | + + + | Organization | [facility] | | | and [place] | + + + | Address | Unknown | + + + | Phone | Unavailable | + + + Support + + + + + | Name | Relationship | Address | Phone | + + + + + | Joseluis Desai | ECON | [place] | | | | | [address] | | + + + + + | Mila Desai | ECON | Unknown | | + + + + + Care Team Providers + +------+ + | Care Vp Product Name | Role | Phone | + [...] + + | 08/14/ | Telephone | [facility] | Tyree Joyce, | Other (formulary | | 2018 | | PULMONARY [address] | MD [address] | change) | | | | [place], | [place] | | | | | [place] [id number] | [id number] | | | | | [phone] | | | +--------+ + + + [...] or Breo. Amy uses [facility] in [place]. P DTdocumented in this encounter Plan of [...] [place] | | | | | | [address] | | | | | | | | +--------+---------+ + + + documented as of this encounter Visit Diagnoses Not on filedocumented in this encounter"
--- OUTSIDE RECORDS SUMMARY | ~2019-12-20 | XMS | Encounter Summary ---
Demographics + + + | Address | [address] | | | [place] [address] | + + + | Home Phone | | + + + | Preferred Language | Unknown | + + + | Marital Status | | + + + | Adventist Affiliation | 1028 | + + + | Race | White | + + + | Ethnic Group | Not or | + + + Author + + + | Author | [facility] | | | and [place] | + + + | Organization | [facility] | | | and [place] | + + + | Address | Unknown | + + + | Phone | Unavailable | + + + Support + + + + + | Name | Relationship | Address | Phone | + + + + + | Joseluis Desai | ECON | [place] | | | | | [address] | | + + + + + | Mila Desai | ECON | Unknown | | + + + + + Care Team Providers + +------+ + | Care Pre Owned Sales Manager Name | Role | Phone | [...] + + | 08/30/ | Telephone | [facility] | Shaji Wilson | Other (Appointment) | | 2018 | | SURGERY [address] | MD Alessandro, FACS [address] | | | | | [place], [place] | [address] [facility] | | | | | [address] | [place] [address] | | | | | [phone] | [phone] | | | | | | | [...] [place] | | | | | | [address] | | | | | | | | +--------+---------+ + + + documented as of this encounter Visit Diagnoses Not on filedocumented in this encounter"
--- OUTSIDE RECORDS SUMMARY | ~2019-12-20 | XMS | Encounter Summary ---
Demographics + + + | Address | [address] | | | [place] [address] | + + + | Home Phone [...] | [place] | | | | | [address] | | + + + + + | Mila Desai | ECON | Unknown | | + + + + + Care Team Providers + +------+ + | Care Report Programmer Name | Role | Phone | + +------+ + | Bry Vaughn DO | PCP | | + +------+ + Encounter Details +--------+ + + + + | Date | Type | Department | Care Team | Description | +--------+ + + + + | 08/17/ | Hospital | [facility] | Conversion | Diagnosis unknown | | 2018 | Encounter | CONVERSION [address] | Transaction, | | | | | [address] | Provider Unknown | | | | | [place], [place] | [phone] | | | | | [address] | | | | | | [phone] | | | +--------+ + + + [...] [place] | | | | | | [address] | | | | | | | [...]
--- OUTSIDE RECORDS SUMMARY | ~2019-12-20 | XMS | Encounter Summary ---
Demographics + + + | Address | [address] | | | [place] [address] | + + + | Home Phone | | + + + | Preferred Language | Unknown | + + + | Marital Status | | + + + | Presybeterian Affiliation | 1028 | + + + [...] | [place] | | | | | [address] | | + + + + + | Mila Desai | ECON | Unknown | | + + + + + Care Team Providers + +------+ + | Care Anesthesiology Faculty Name | Role | Phone | + [...] | Event | [facility] SAFETY TEACHER [address] | | | | | CARDIAC ICU [address] | [place] [address] | | | | | [address] [place] | [phone] | | | | | [address] | | | | | | [phone] | | | +--------+ + + + + Anesthesia Record + + + + + | Procedure Name | Responsible | Anesthesia Start | Anesthesia Stop Time | | | Anesthesiologist | Time | | + + + + + | LINE:ARTERIAL LINE | Misael Edmond, | 08/18/17 1237 | 08/18/17 1247 | | PLACEMENT | SAFETY TEACHER | | | + + + + [...] by | 06/05/18 1643 by | | doris | [id number] catheter system; | Jeff Cloud RN | [...] by | | Double | Onel's -- [place], [place]; | Sera Chicas RN | Andrew Byers [...] | | eral | in past; 08/21/17; 219 | Sera Chicas RN | Trina Cordova, | | IV | | | RN | +--------+ + + + | NG/OG | 08/17/17; 0600; Wilson sump; left | 08/17/17 0600 by | 08/19/17 1100 by | | | nostril; stomach; medication | Dorcas Troncoso RN | Dorcas Troncoso RN | | | administration, gastric | | | | | decompression; tubing intact, no | | | | | signs/symptoms of discomfort; | | | | | placed in [facility]; | | | | | 08/19/17; 1100 | | | +--------+ + + + | Airway | Placement Date: 08/17/17; | 08/17/172208 by | 08/19/17 09 by | | | Placement Time: 2208; Airway | Caleb Forte, ELECTROMECHANISMS DESIGN DRAFTER | Volodymyr Teague, JOSEFA | | | [...] Chicas RN | Erasmo Herron, | | Cathet | accurate I/O; All elements; All | | RN | | er | elements; All elements; | | | | | indwelling catheter with core | | | | | temperature probe; 100% silicone; | | | | | 16; None; 1; 10; 10; none; | | | | | 08/19/17; 2049 | | | +--------+ + + + | Arteri | 08/18/17; 1300 (created via | 08/18/17 1300 by | 08/20/17 1055 by | | al | procedure documentation); | Misael Edmond, | Lucian Guthrie RN | | Line | Chlorhexidine/Isopropyl Alcohol; | SAFETY TEACHER | | | | under GA; Right; [...] + + documented as of this encounter OR Notes Anesthesia Postprocedure Evaluation - Misael Edmond CRNA - 08/18/2017 1:02 PM PDTForm atting of this note might be different from the original. ANESTHESIA POSTANESTHESIA EVALUATION Amy Coleman 62 y.o. female 1955 [id number] Procedure(s) LINE:ARTERIAL LINE PLACEMENT Cooperates? Yes Mental Status Alert Respiratory Satisfactory - Airway patent (self maintained). Cardiovascular Satisfactory - Blood pressure and heart rate acceptable Temperature Satisfactory Pain Satisfactory N/V Control Satisfactory Hydration Satisfactory - No signs of dehydration Complications None apparent Vitals: 08/18/17 1100 08/18/17 1120 08/18/17 1200 BP: 112/65 (!) 134/104 (!) 89/55 Arterial Line BP: 124/117 Arterial Line BP 2: Pulse: 123 127 123 Temp: 37.3 C (99.1 F) 37.2 C (99 F) Resp: 18 21 21 SpO2: 99% 99% 97% Electronically signed by Misael Edmond CRNA 08/18/2017 13:02 [facility] Misael Edmond CRNA at 8 1:03 PM PDTAnesthesia Procedure Notes - Misael Edmond CRNA - 08/18/2017 12:59 PM PDT Associated Order(s): ANE ARTERIAL LINE NOTEArterial Line Placement Indication: continuous blood pressure monitoring and acid-base/laboratory analysis Prep solution: chlorhexidine/isoproplyl alcohol Patient was: under GA Pain prevention: 1% lidocaine infiltration Laterality: right Artery:radial Size: 20 g Localization technique: landmark Securement: transparent dressing Performed by: MISAEL EDMOND Electronically Signed by: Misael Edmond CRNA ESig date/time: 018 12:59 nesthesia Prepro cedure Evaluation - Misael Edmond CRNA - 08/18/2017 12:55 PM PDT ANESTHESIA PREANESTHESIA EVALUATION Amy Coleman 62 y.o. female 1955 [id number] Procedure(s): LINE:ARTERIAL LINE PLACEMENT Anesthesia Evaluation Anesthesia Physical Exam Anesthesia Plan ASA 3 Type: Induction: Other. Potential problems: Monitors: Standard ASA monitors. Consent statement: . Consenting person understands and agrees to proceed. Paged to room to place arterial line. . documented in thi s encounter Plan of Treatment +--------+---------+ + + + | Date | Type | Specialty | Care Team | Description | +--------+---------+ + + + | 01/15/ | Office | Physical Medicine | Dick Maria, | | | 2019 | Visit | and Rehabilitation | MD Gisele Ram | | | | | | [place] | | | | | | [id number] | | | | | | | [...] MISAEL EDMOND AElectronically | | Signed by: TERRELL Lozada date/time: 08/18/2017 12:59 | |Laterality: right | |Artery:radial | |Size: 20 g | |Localization technique: landmark | |Securement: transparent dressing | |Performed by: MISAEL EDMOND | | | | | |Electronically Signed by: TERRELL Lozada date/time: 018 12:59 | + + documented in this encounter Visit Diagnoses Not on filedocumented in this encounter"
--- OUTSIDE RECORDS SUMMARY | ~2019-12-20 | XMS | Encounter Summary ---
Demographics + + + | Address | [address] | | | [place] [address] | + + + | Home Phone [...] | [place] | | | | | [address] | | + + + + + | Mila Desai | ECON | Unknown | | + + + + + Care Team Providers + +------+ + | Care Pinion Staker Name | Role | Phone | + [...] | | | [address] [place] | [place] [address] | | | | | [place] [address] | | | | | | [phone] | | | +--------+ + + + [...] [place] | | | | | | [address] | | | | | | | [...]
--- OUTSIDE RECORDS SUMMARY | ~2019-12-20 | XMS | Encounter Summary ---
Demographics + + + | Address | [address] | | | [place] [address] | + + + | Home Phone [...] + + + | Author | [facility] | | | and [place] | + + + | Organization | [facility] | | | and [place] | + + + | Address | Unknown | + + + | Phone | Unavailable | + + + Support + + + + + | Name | Relationship | Address | Phone | + + + + + | Joseluis Desai | [place] | [place] | | | | | [address] | | + + + + + | Mila Desai | ECON | Unknown | | + + + + + Care Team Providers + +------+ + | Care Digital Strategist Name | Role | Phone | + [...] | | | [address] | [place] [address] | | | | | [place] [address] | | | | | | [phone] | | | +--------+ + + + [...] [place] | | | | | | [address] | | | | | | | [...]
--- OUTSIDE RECORDS SUMMARY | ~2019-12-20 | XMS | Encounter Summary ---
Demographics + + + | Address | [address] | | | [place] [address] | + + + | Home Phone [...] | [place] | | | | | [address] | | + + + + + | Mila Desai | ECON | Unknown | | + + + + + Care Team Providers + +------+ + | Care End User Support Specialist Name | Role | Phone | [...] | | | [address] | [place] [address] | | | | | [place] [address] | | | | | | [phone] | | | +--------+ + + + [...] [place] | | | | | | [address] | | | | | | | [...]
--- OUTSIDE RECORDS SUMMARY | ~2019-12-20 | XMS | Encounter Summary ---
Demographics + + + | Address | [address] | | | [place] [address] | + + + | Home Phone | | + + + | Preferred Language | Unknown | + + + | Marital Status | | + + + | Latter-Day Affiliation | 1028 | + + + [...] | [place] | | | | | [address] | | + + + + + | Mila Desai | ECON | Unknown | | + + + + + Care Team Providers + +------+ + | Care Environmental Field Services Technician Name | Role | Phone | [...] + + | 05/12/ | Telephone | [facility] | Dewey Harris, | Hospital Follow-up | | 2018 | | [facility] | PharmD NEED ADDRESS | | | | | [address] | UPDATED | | | | | [place] [id number] | | | | | | [phone] | | | +--------+ + + + [...] Appointment with Dr. Vaughn on 05/20/17 @ 7462. Electronically signed by: Dewey Harris PharmD 05/12/2017 [...] [place] | | | | | | [id number] | | | | | | | | +--------+---------+ + + + documented as of this encounter Visit Diagnoses Not on filedocumented in this encounter"
--- OUTSIDE RECORDS SUMMARY | ~2019-12-20 | XMS | Encounter Summary ---
Demographics + + + | Address | [address] | | | [place] [address] | + + + | Home Phone [...] | [place] | | | | | [address] | | + + + + + | Mila Desai | ECON | Unknown | | + + + + + Care Team Providers + +------+ + | Care Electronics Technology Department Chair Name | Role | Phone | + [...] + + | 01/30/ | Telephone | [facility] | Tyree Joyce, | Other (symbicort) | | 2017 | | PULMONARY [address] | MD [address] | | | | | [place], | [place] | | | | | [place] [address] | [address] | | | | | [phone] | | | +--------+ + + + [...] 01/31/2018 2:43 PM PSTReceived a fax from [employer] informing that they have approved Dulera. Prescription [...] [place] | | | | | | [address] | | | | | | | | +--------+---------+ + + + documented as of this encounter Visit Diagnoses Not on filedocumented in this encounter
--- OUTSIDE RECORDS SUMMARY | ~2019-12-20 | XMS | Encounter Summary ---
Demographics + + + | Address | [address] | | | [place] [address] | + + + | Home Phone | | + + + | Preferred Language | Unknown | + + + | Marital Status | | + + + | Islam Affiliation | 1028 | + + + | Race | White | + + + | Ethnic Group | Not or | + + + Author + + + | Author | [facility] | | | and [place] | + + + | Organization | [facility] | | | and [place] | + + + | Address | Unknown | + + + | Phone | Unavailable | + + + Support + + + + + | Name | Relationship | Address | Phone | + + + + + | Joseluis Desai | [address] | [place] | | | | | [address] | | + + + + + | Mila Desai | ECON | Unknown | | + + + + + Care Team Providers + +------+ + | Care Department Sales Manager Name | Role | Phone | + +------+ + | Bry Vaughn DO | PCP | | + +------+ + Encounter Details +--------+ + + + + | Date | Type | Department | Care Team | Description | +--------+ + + + + | 08/17/ | Hospital | [facility] | Conversion | Diagnosis unknown | | 2018 | Encounter | CONVERSION [address] | Transaction, | | | | | [address] | Provider Unknown | | | | | [place], [place] | [phone] | | | | | [address] | | | | | | [phone] | | | +--------+ + + + [...] [place] | | | | | | [address] | | | | | | | [...]
--- OUTSIDE RECORDS SUMMARY | ~2019-12-20 | XMS | Encounter Summary ---
Demographics + + + | Address | [address] | | | [place] [address] | + + + | Home Phone [...] | [place] | | | | | [address] | | + + + + + | Mila Desai | ECON | Unknown | | + + + + + Care Team Providers + +------+ + | Care Sample Card Maker Name | Role | Phone | [...] | | | Pulmonology | obstructive | [address] | [address] | | | | | pulmonary | [place] | [place], | | | | | disease, | [place] [address] | [place] [address] | | | | | unspecified | [place] | Phone: | | | | | ([facility]) | [place] | [phone] | | | | | Procedures | [address] | Fax: | | | | | F/U DOMO COBB | Phone: | [phone] | | | | | MILDRED JOYCE | [phone] | | | | | | 06/30/18 | Fax: | | | | | | | [phone] | | +--------+--------+ + + + + Encounter Details +--------+---------+ + + + | Date | Type | Department | Care Team | Description | +--------+---------+ + + + | 08/04/ | Office | [facility] | Tyree Joyce, | COPD, moderate (HCC) | | 2019 | Visit | PULMONARY [address] | MD [address] | (Primary Dx) | | | | [place], | [place] | | | | | [place] [address] | [address] | | | | | [phone] | | | +--------+---------+ + + + [...] secretions in your nose and lungs . Xazc-smh-rhzultj cold medicines will not make the flu [...] for a few days Date Last Reviewed: 03/14/201619995172-5611 [email or web address]. [address] [place] [address]. All righ ts reserved. 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 She started smoking about 52 years ago . She has a 50.00 pack-year smoking history. She has never used smokeless tobacco. She repor ts that she drank alcohol. She reports that she has current or past drug history. Drug: Sheela dillon. Allergies: Allergies Allergen Reactions Amoxicillin Cephalexin Hydroxyzine [...] be lengthened to 12 months. CC: Bry Kargar, DO Tdocumented in this encounter Plan of Treatment +--------+---------+ + + + | Date | Type | Specialty | Care Team | Description | +--------+---------+ + + + | 01/15/ | Office | Physical Medicine | Dick Maria, | | | 2019 | Visit | and Rehabilitation | MD [address] | | | | | | [place] | | | | | | [address] | | | | | | | | +--------+---------+ + + + documented as of this encounter Visit Diagnoses + + | Diagnosis | + + | COPD, moderate (HCC) - Primary Chronic airway obstruction, not elsewhere classified | + + documented in this encounter
--- OUTSIDE RECORDS SUMMARY | ~2019-12-20 | XMS | Encounter Summary ---
Demographics + + + | Address | [address] | | | [place] [address] | + + + | Home Phone [...] | [place] | | | | | [address] | | + + + + + | Mila Desai | ECON | Unknown | | + + + + + Care Team Providers + +------+ + | Care Fish Farm Laborer Name | Role | Phone | + [...] [address] | | | | | [place], | [place], [place] | | | | | [place] [address] | [address] | | | | | [phone] | | | +--------+--------+ + + + [...] [place] | | | | | | [address] | | | | | | | | +--------+---------+ + + + documented as of this encounter Visit Diagnoses Not on filedocumented in this encounter"
--- OUTSIDE RECORDS SUMMARY | ~2019-12-20 | XMS | Encounter Summary ---
Demographics + + + | Address | [address] | | | [place] [address] | + + + | Home Phone [...] | [place] | | | | | [address] | | + + + + + | Mila Desai | ECON | Unknown | | + + + + + Care Team Providers + +------+ + | Care Granite Installer Name | Role | Phone | [...] 08/18/ | | [place] | [place] [address] | | | 2017 | | [address] | [phone] | | | | | [phone] | | | +--------+---------+ + + + [...] Follow Up Appointments: Bry Vaughn DO [address] [facility] [address] [place] [address] Schedule an appointment as soon as possible for a visit Discharge Disposition: Home Consultants This Admission: Vascular surgery, General Surgery, Interventional Radiology Hospital Course: Amy Coleman is a 62-year-old female with past medical history significant for COPD, CAD s/p NSTEMI ( no PCI), who was transferred to [facility] for ICU care from [place] on 08/17 wh ere she was intubated [...] this chart may have been created with [employer]pe voice recognition software. Occasi onal wrong-word or [...] urine. Belly (abdominal) pain Date Last Reviewed: 09/12/201519990852-1080 [employer]. [address] [place] [address], [place] [address]. All righ ts reserved. This information is [...] about recovering at home. Date Last Reviewed: 02/12/201619994418-4312 [employer]. [address] [place] [address]. All righ ts reserved. This information is not intended as a substitute for professional medical care. Always follow your healthcare professional's instructions. [facility] Patient Belongings Amy Juliannefarshad Coleman 1955 Patient Signature: Clinician/Principal Electrical Engineer Signature: Discharge Instructions: After Your Surgery You [...] interact with your prescription medicines or other omno-rwb-drruvgz (OTC) medicines. Some prescription medicines have acetaminophen and other ingredients.Using both prescription a nd OTC acetaminophenfor paincan cause you to overdose. Readthe labels on your OTC [facility] critical [facility] hospital care. This will help youto clearly [...] of taking these medicines. Date Last Reviewed: 02/12/201619995689-8237 [employer]. [address] [place] [address], [place] [address]. All righ ts reserved. This information is [...] is a 62 year old female from [place], [place] with [facility] Medicaid insurance. SW received referral [...] ( no PCI), who was transferred to [facility] for ICU care from [place] on 08/17 wh ere she was intubated [...] - Single Lumen 05/08/17 0130 Left Forearm ptmf-fxs-bnmqff catheter syst em 20 gauge 106 days [...] Plan for details. Electronically signed by: Riky Rodrgiuez MD 08/22/2017 8:33 Portions of this chart may have been created with [employer] voice recognition software. Occasi onal wrong-word or sound-alike substitutions may have occurred due to the inherent lobo itations of voice recognition software. Please read the chart carefully and recognize, using context, where these substitutions have occurred Krzysztof Ordaz MD - 08/21/2017 5:47 PM PDTFormatting of this note might be different f rom the original. [facility] [place] General Surgery Team Hospital Day: 5 DATE/TIME: [...] ( no PCI), who was transferred to [facility] for ICU care from [place] on 08/17 wh ere she was intubated [...] - Single Lumen 05/08/17 0130 Left Forearm oyjo-jgo-xivdnv catheter syst em 20 gauge 105 days [...] Hold Result Value Ref Range Product Code F1267U13 UNIT # [id number] UNIT ABO O UNIT RH POS Unit Status IS Blood Product Expiration Date and Time Product Blood Type Barcode 5100 Product Code R8414E25 UNIT # [id number] UNIT ABO O UNIT RH POS Unit Status RE Blood Product Expiration Date and Time [id number] Product Blood Type Barcode 5100 Hemoglobin and [...] this chart may have been created with [employer] voice recognition software. Occasi onal wrong-word or sound-alike substitutions may have occurred due to the inherent lobo itations of voice recognition software. Please read the chart carefully and recognize, using context, where these substitutions have occurred Krzysztof Ordaz MD - 08/20/2017 12:23 PM PDTFormatting of this note might be different f rom the original. [facility] Surgery Team Hospital Day: 4 DATE/TIME: [...] ( no PCI), who was transferred to [facility] for ICU care from [place] on 08/17 wh ere she was intubated [...] - Single Lumen 05/08/17 0130 Left Forearm ijux-gok-eztviz catheter syst em 20 gauge 104 days [...] 5:28 AM PDT Critical Care Progress Note [facility] Date of Service: 08/20/2017 Admit Date: [...] NSTEMI (no PCI, mild disease) presented to [facility] on 08/16 with shortness of breath and [...] NSTEMI (no PCI, mild disease) presented to [facility] on 08/16 with shortness of breath and [...] Today: Yes Extubated Bowel Function: Last BM: ANALYTICAL CONSULTANT. Scheduled bowel meds started. Indwelling Bladder Catheter [...] LABORATORY: I personally reviewed recent labs in [facility] and ordered appropriate follow-up domonique [...] Component Value Date PHART 7.36 (L) 08/19/2017 [id number] 44 (H) 08/19/2017 PO2ART 91 (H) 08/19/2017 [id number] 13.3 (L) 08/19/2017 [id number] 25.2 08/19/2017 BEART -0.2 08/19/2017 CARBOXYHGB 1.0 [...] this chart may have been created with [employer] voice recognition software. Occasi onal wrong-word or sound-alike substitutions may have occurred due to the inherent lobo itations of voice recognition software. Please read the chart carefully and recognize, using context, where these substitutions have occurred. Krzysztof Ordaz MD - 08/19/2017 2:04 PM PDT [facility] Surgery Team Hospital Day: 3 DATE/TIME: 08/19/2017 [...] Montaño MD, 08/19/2017 14:05 [facility] Jarocho Saldaña RRT - 08/19/2017 10:10 AM PDT 08/19/17 1009 Respiratory Assessment Interventions ~ Patient Assessment ~ Multi-disciplinary Rounds Continue current care. Q4 DuonebsElectronically signed by Jarocho Hunt V DIRECTOR OF DIGITAL PLATFORMS at 2017 10:10 AM Volodymyr Peña RRT [...] Coleman DATE OF : 1955 MED RECORD: [id number] ASSESSMENT/PLAN PROCEDURE: mesenteric angiogram 6/7 ASSESSMENT: 1. [...] 08/19/1761408/18/172018 PHART 7.25* 7.34* PO2ART 58* 139* ISC2FLW 53* 39 BEART -4.1* -4.5* EXAM: General [...] 6:50 AM PDT Critical Care Progress Note [facility] Date of Service: 08/19/2017 Admit Date: [...] NSTEMI (no PCI, mild disease) presented to [facility] on 08/16 with shortness of breath and [...] NSTEMI (no PCI, mild disease) presented to [facility] on 08/16 with shortness of breath and [...] Today: Yes Extubated Bowel Function: Last BM: ANALYTICAL CONSULTANT. Scheduled bowel meds started. Indwelling Bladder Catheter [...] LABORATORY: I personally reviewed recent labs in [facility] and ordered appropriate follow-up domonique [...] Component Value Date PHART 7.34 (L) 08/18/2017 [id number] 39 08/18/2017 PO2ART 139 (H) 08/18/2017 [id number] 11.2 (L) 08/18/2017 GTM0GWF 21.2 (L) 08/18/2017 BEART -4.5 (L) 08/18/2017 [...] this chart may have been created with [employer] voice recognition software. Occasi onal wrong-word or sound-alike substitutions may have occurred due to the inherent lobo itations of voice recognition software. Please read the chart carefully and recognize, using context, where these substitutions have occurred. ackelyn Mionr MD - 0 08/18/2017 5:31 PM PDTDiscussed [...] occlusion of femoral vessel s shley Joseph, SPIRITUAL MINISTER - 0 08/18/2017 6:28 AM PDT Critical Care Progress Note [facility] Date of Service: 08/18/2017 Admit Date: [...] sease only, no PCI) presented to OSH ([place], [place]) initially w/ c/o SOB and was intubated for acute on chronic respiratory failure (ABG prior to intubation: 7.0/98/217/26). Pt then developed hypotension/HD instability for which she required 2 pressors. hgb fell from 15-- >4 and pt rc'd 6u PRBCs, 2uFFP, 1u PLT, 5L NS. CT abdomen showed RP hematoma and pt was tra nsferred to [facility] for further eval of this. 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 Gen surgery consulted as w ell as vascular to determine best approach to vascular issues given high potential for re bl eed. Summary of Significant Events: 08/17: Admitted to [facility]. Intubated. To IR 08/18: Awake, alert. [...] l plan set Bowel Function: Last BM: ANALYTICAL CONSULTANT. PRN bowel meds available. Indwelling Bladder Catheter Indication: Vasopressors for hemodynamic instability Subjective 24hr interval history: Transferred from [place] to [facility] Afebrile Rc'd 6u PRBCs, 2u FFP, [...] LABORATORY: I personally reviewed recent labs in [facility] and ordered appropriate follow-up domonique [...] Results Component Value Date PHART 7.39 08/18/2017 [id number] 32 08/18/2017 PO2ART 108 (H) 08/18/2017 J2CZKDAPE 16.2 08/18/2017 SBS8XGY 19.4 (L) 08/18/2017 BEART -5.6 (L) 08/18/2017 [...] this chart may have been created with [employer] voice recognition software. Occasi onal wrong-word or sound-alike substitutions may have occurred due to the inherent lobo itations of voice recognition software. Please read the chart carefully and recognize, using context, where these substitutions have occurred. Associated attestation - Vikram James MD - 08/18/2017 8:56 AM PDT Physician Attestation Note [facility] Date of Service: 08/18/2017 Reason for critical care: Hemorrhagic shock secondary to intra-abdominal bleeding I reviewed and discussed the patient history, assessment and plan with the KOLE, during pers onal discussion and/or multi-disciplinary rounds. Acute issues or additions to plan of care: 62 year old lady with PMH of COPD, CAD s/p NSTEMI (no PCI, mild disease) presented to [facility] on 08/16 with shortness of breath and [...] this chart may have been created with [employer] voice recognition software. Occasi onal wrong-word or [...] riginal. . Critical Care-Care Progress Note Update [facility] Date of Service: 08/17/2017 Admit Date: [...] called and discussed plans with son, Joseluis ([phone]). He expre ssed understanding and wanted to [...] this chart may have been created with [employer] voice recognition software. Occasi onal wrong-word or [...] PDT Critical Care Admission History and Physical [facility] Intensive Care Unit Pt. Name: Amy Coleman Age: 62 y.o. : 1955 Code Status: TBD - Full Code by default Date of Admission: 08/17/2017 Primary Care Physician: Bry Vaughn DO Attending: Faby Rodriguez MD Subjective Chief Concern: Abdominal bleed History of Present Illness: 62 yo F patient with PMH of COPD and previous [place] was transferred from [facility] to [facility] ICU for further care of shock [...] CV LHC; Surgeon: Johnny Luther MD; Location: [facility] CV LAB Social History: Social History [...] Labs Lab 08/17/172238 PHART 7.33* PO2ART 193* [id number] 35 BEART -7.8* No results for input(s): [...] called lalito Huggins and discussed the plan aLlito Huggins Lloyd : [phone] I expect this patient will be hospitalized for greater than 2 midnights. I expect the post-hospital plan to be determined once additional information is obtained. Electronically signed by: Daina Boyle MD, 08/18/2017, 0:23 Associated attestation - Faby Rodriguez MD - 08/18/2017 5:15 AM PDTFormatting of this note m ight be different from the original. . Physician Attestation Note [facility] Date of Service: 08/18/2017 Reason for [...] with mild disease, no PCI) presented to [facility] late evening 08/16 with hypoxemic/hyp [...] large low density mass in left abdomen [id number] with active extravasation is several locations, ?branches of celiac or SMA. MTP protocol initiated. Stabilized. OSH physicians discussed with critical care, surgery an d interventional radiology and pt transferred to [place]. Upon arrival, she is relatively stable on [...] this chart may have been created with [employer] voice recognition software. Occasi onal wrong-word or sound-alike substitutions may have occurred due to the inherent lobo itations of voice recognition software. Please read the chart carefully and recognize, using context, where these substitutions have occurred. documented in this encounter Consult Notes Johnny Harmon MD - 08/18/2017 1:29 PM PDTFormatting of this note might be different fro m the original. Located Within [facility] VASCULAR CONSULTATION PATIENT NAME: Amy Coleman : [...] is chemia. This was discussed with the kryueoro-kl-jqa and grandson, and also with the intubat [...] Dr Minor. She was transferred yesterday from [place] with an acute intra-abdominal bleed from a [...] and NS STANLEY (non-ST elevated myocardial infarction) ([facility]). Allergies Allergen Reactions Amoxicillin Cephalexin [...] CV LHC; Surgeon: Johnny Luther MD; Location: [facility] CV LAB Family History: Her family [...] Negative UROBILINOGEN UA <2.0 <2.0 mg/dL Specific [place] >1.060 (H) 1.001 - 1.030 PH UA [...] signed by: Johnny Harmon MD, 08/18/2017 13:35 [facility] Health[facility]gess MD - 08/18/2017 12:[address] [facility] GENERAL SURGERY CONSULT Primary Care [...] CV LHC; Surgeon: Johnny Luther MD; Location: [facility] CV LAB MEDICATIONS PRIOR TO ADMISSION [...] Signed by: Pedro Londono MD, 08/18/2017 0:21 [facility] documented in thi s encounter Miscellaneous [...] None Code Status: Full Code Item for export administrator Comments Shift Summary: Pt is alert and oriented. Pain managed w/ Okay 5 x 1 tab. Frequent heartburn/indigestion. Tums effective for pt. R groin incision w/ gauze and tegaderm. Dressing changed. PICC saline-locked. Voiding adequately, passing flatus. Tolerating general diet. Probable home today. Slept well between cares. Dx/Tx: Procedure(s) (LRB): Gastric Artery Embolization with 2mm x 8cm coil and Ord 34 and 18 embolic (N/A) Anesthesia Type [...] Bowel Movement: 08/20/17 (08/21/17 1600) Pain Management: Okay Next Dose: CAM CAM Score: no MD Notification: Notification Provider Name/Title: Dr Roman (08/20/171511) Reason for Communication: Critical lab value with read back verification (08/20/171511) Method of Communication: Call (08/20/171511) Facilities Manager for Provider: Sammie RN (08/20/17 151) Response: [...] 1130 lan of Care - [place] Centeno, DIRECTOR OF DIGITAL PLATFORMS - 08/23/2017 4:14 AM PDTProblem: Patient Care [...] None Code Status: Full Code Item for export administrator Comments Shift Summary: Alert and oriented x4, VSS, up independently in room and halls. Denies pain. S/P embolization of right visceral artery. ANticipating D/C tomorrow. Patient lives in [facility] and needs advanced notice of D/C to [...] verification (08/20/171511) Method of Communication: Call (08/20/171511) Facilities Manager for Provider: Sammie NUNEZ (08/20/17 9112) Response: See orders (08/20/17 1512) Vitals: 08/22/17 [...] None Code Status: Full Code Item for export administrator Comments Shift Summary: Pt is alert and oriented. Denied pain through night Right groin dressing with dried drainage Tolerates , denies nausea Rested well Dx/Tx: Procedure(s) (LRB): Gastric Artery Embolization with 2mm x 8cm coil and [place] 34 and 18 embolic (N/A) Anesthesia Type [...] verification (08/20/171511) Method of Communication: Call (08/20/171511) Facilities Manager for Provider: Sammie NUNEZ (08/20/171511) Response: See [...] 1130 lan of Care - Sowmya Cevallos, DIRECTOR OF DIGITAL PLATFORMS - 08/22/2017 4:58 AM PDTProblem: Patient Care [...] None Code Status: Full Code Item for export administrator Comments Shift Summary: Patient up indp to bathroom and hallway. PICC to LUE double lumen, CDI. Pain tolerable, denies nausea. Resting at this time, will continue to monitor. Possible discharge in AM. Electronically signed by: ARMANDO MONTEIRO RN 08/21/2017 23:02 Dx/Tx: Procedure(s) (LRB): Gastric Artery Embolization with 2mm x 8cm coil and [place] 34 and 18 embolic (N/A) Anesthesia Type [...] verification (08/20/171511) Method of Communication: Call (08/20/171511) Facilities Manager for Provider: Sammie RN (08/20/171511) Response: See [...] Supine: independent Goal Status: met Level of Blair: independent Transfers Bed to Chair: not tested Chair to Bed: not tested Utilizing: other (see comments) (hand hold assist) Sit to Stand: independent Stand to Sit: independent Utilizing: none Status: met Blair Level: independent Gait Level of Assist: independent Utilizes: none Distance: 300 Goal Status: met Goal: independent Device: none Distance: 150' Stairs # of stairs: 12 Handrail Location: left side (ascending) Level of Blair: independent Utilizes: 1 rail Technique: step over step (ascending) Maintain WB Status: able to maintain weight bearing status STG Status: met Level of Blair: modified independent # of stairs: 6 Utilizes: [...] number to reach at after discharge is [phone]. lan of Care - Sammie Hare RN [...] None Code Status: Full Code Item for export administrator Comments Shift Summary: Pt A&Ox4 calm, pleasant Pt OOB to work with PT and for shower Pt tolerating general diet Pt modified independence for ambulation, continue to encourage ambulation Dressings on bilateral arms/L neck remain CDI, R groin dressing has old, dried drainage wit h no swelling/hematoma/pain noted Pt denies pain/discomfort Dx/Tx: Procedure(s) (LRB): Gastric Artery Embolization with 2mm x 8cm coil and [place] 34 and 18 embolic (N/A) Anesthesia Type [...] verification (08/20/171511) Method of Communication: Call (08/20/171511) Facilities Manager for Provider: Sammie RN (08/20/171511) Response: See [...] lan of Care - Drew Gwen gautam, DIRECTOR OF DIGITAL PLATFORMS - 08/21/2017 12:10 PM PDTProblem: Patient Care [...] no PCI), who was transfer red to [facility] for ICU care from [place] on 08/17 where she was intubated for [...] None Code Status: Full Code Item for export administrator Comments Shift Summary: A/O. No pain reported. [...] Embolization with 2mm x 8cm coil and [place] 34 and 18 embolic (N/A) Anesthesia Type [...] verification (08/20/171511) Method of Communication: Call (08/20/171511) Facilities Manager for Provider: Sammie NUNEZ (08/20/171511) Response: See [...] None Code Status: Full Code Item for export administrator Comments Shift Summary: Pt oriented. PICC line, patent. Up ind. dsg to right groin, dried drainage. Pain controlled with tylenol. Pt tolerated all cares well. Dx/Tx: Procedure(s) (LRB): Gastric Artery Embolization with 2mm x 8cm coil and [place] 34 and 18 embolic (N/A) Anesthesia Type [...] verification (08/20/171511) Method of Communication: Call (08/20/171511) Facilities Manager for Provider: Sammie NUNEZ (08/20/171511) Response: See [...] None Code Status: Full Code Item for export administrator Comments Shift Summary: Pt arrived to the [...] Embolization with 2mm x 8cm coil and [place] 34 and 18 embolic (N/A) Anesthesia Type [...] Method of Communication: Face to face (08/20/17899) Facilities Manager for Provider: Jethro Guthrie RN (08/20/17899) Response: [...] e Screening Note Summary: Acknowledge orders for BARK SCALER swallow evaluation per extubation protocol. OME: WFL. Pt. takin g clear liquids per surgery team without deficits. No overt s/s aspiration noted with consec utive swallows of thin liquids with BARK SCALER. Recommend diet advancement per surgery team. BARK SCALER to s/off, please reorder if status changes. [...] lan of Care - D Volodymyr butler, DIRECTOR OF DIGITAL PLATFORMS - 08/20/2017 3:35 AM PDTProblem: Patient Care [...] A. She sat on edge of bed [id number] with some dizziness, which lessened over time. [...] she progresses with therapy. Further PT at [place] pending progress as well. Physical Therapy will [...] chair ) Goal Status: new Level of Blair: independent Transfers Bed to Chair: minimal assist (75% patient effort), 2 person assist required Chair to Bed: minimal assist (75% patient effort), 2 person assist required Utilizing: other (see comments) (hand hold assist) Sit to Stand: contact guard assist Stand to Sit: contact guard assist Utilizing: none Status: new Blair Level: independent Gait Level of Assist: not tested Goal Status: new Goal: independent Device: none Distance: 150' Stairs Comments: STG Status: new Level of Blair: modified independent # of stairs: 6 Utilizes: [...] access. Sterile dressing appl ied. lan of [facility] fairbanks RN - 08/18/2017 7:53 AM PDTProblem: [...] RESTRAINT GOALS: Outcome: Unchanged Goal Evaluation: IR 4001-2800 to determine source of LUQ hematoma. No bleed found, however multiple aneury sms found on gastric arteries (see IR note for more detail). Received 5L fluid + 6 unit RBC + 2 unit FFP + 1 unit platelets at outlying facility/in transit to [facility]. Neuro: Drowsy, opens eyes to command. [...] in law and grandson in room from [place], [place]. lan of Care - Caleb Forte, DIRECTOR OF DIGITAL PLATFORMS - 08/18/2017 4:11 AM PDTProblem: Mechanical Ventilation, [...] Power MD edation Documentation - Merrick Gaines Director Of Distribution - 08/18/2017 1:06 AM PDT6 Fr Angioseal used edation Documentation - Merrick Gaines Director Of Distribution - 08/18/2017 1: 02 AM PDTSuccessful angiogram ,no angiographic evidence of active bleeding. Abnormal vascula ture . edation Documentation - Jennifer Jordan RN - 08/17/2017 11:57 PM PDTPt arrives from ICU o n monitor and vent per bed with ACADEMIC AFFAIRS DIRECTOR and RT who will remain with pt [...] | | MEDICAL | | | | [facility] [address], | | CENTER | | | | [place] [address] | | LABORATORY | | | | [...] + + | [facility] | [address] | [place] [address] | | | HE[facility] | [...] PROVIDENCE | | | | Performed by [facility] [address] | | [address]CRED | | | | [address] [place] | | HEART | | | | [address] | | MEDICAL | | | | [...] + | [facility] | [address] | [place] [address] | | | [facility] | | | | | [...] | | MEDICAL | | | | [facility] [address], | | CENTER | | | | [place] [address] | | LABORATORY | | | | [...] + | [facility]O NICH[facility] | [address] | [place] [address] | | | [facility] | | | | | [...] PROVID ENCE | | | | by [facility] [address] | | SACRED | | | | [place] [address] | | HEART | | | |Performed by [facility] [address], [place] [address] | | MEDICA L | | | [...] + + | ANAODILIASneha NICHOLAS | [address] | [place] [address] | | | [facility] | | | | | [...] PROVIDENCE | | | | Performed by [facility] [address] | | SACRED | | | | [address] [place] | | HEART | | | | [address] | | MEDICAL | | | | [...] + + | GILBERTO NICHOLAS | [address] | [place] [address] | | | [facility] | | | | | [...] PROVIDENCE | | | | Performed by [facility] [address] | | SACRED | | | | [address] [place] | | HEART | | | | [address] | | MEDICAL | | | | [...] + + | GILBERTO NICHOLAS | [address] | [place] [address] | | | [facility] | | | | | [...] + + + + | Product | [id number] | | REFERENCE | | | Code | | | LAB [place] | | | | | | [facility] | | | | | | [facility] | | | | | | BLOOD | | | | | | CENTER | | + + + + + + | UNIT # | [id number] | | REFERENCE | | | | | | [facility] | | | | | | [facility] | | | | | | [facility] | | | | | | [facility] | | | | | | CENTER | | + + + + + + | UNIT ABO | O | | REFERENCE | | | | | | [facility] | | | | | | [facility] | | | | | | [facility] | | | | | | [facility] | | | | | | [facility] | | + + + + + + | UNIT RH | POS | | REFERENCE | | | | | | [facility] | | | | | | [facility] | | | | | | [facility] | | | | | | [facility] | | | | | | [facility] | | + + + + + + | Unit Status | IS | | REFERENCE | | | | | | [facility] | | | | | | [facility] | | | | | | [facility] | | | | | | [facility] | | | | | | [facility] | | + + + + + + | Blood | [id number] | | REFERENCE | | | Product | | | [facility] | | | Expiration | | | [facility] | | | Date and | | | [facility] | | | Time | | | B[facility]OD | | | | | | CENTER | | + + + + + + | Product | [id number] | | REFERENCE | | | Blood Type | | | [facility] | | | Barcode | | | [facility] | | | | | | [facility] | | | | | | [facility] | | | | | | [facility] | | + + + + + + | Product | [id number] | | REFERENCE | | | Code | | | [facility] | | | | | | [facility] | | | | | | [facility] | | | | | | [facility] | | | | | | [facility] | | + + + + + + | UNIT # | [id number] | | REFERENCE | | | | | | [facility] | | | | | | [facility] | | | | | | [facility] | | | | | | [facility] | | | | | | [facility] | | + + + + + + | UNIT ABO | O | | REFERENCE | | | | | | [facility] | | | | | | [facility] | | | | | | [facility] | | | | | | [facility]OD | | | | | | CENTER | | + + + + + + | UNIT RH | POS | | REFERENCE | | | | | | [facility] | | | | | | [facility] | | | | | | [facility] | | | | | | [facility] | | | | | | CENTER | | + + + + + + | Unit Status | RE | | REFERENCE | | | | | | [facility] | | | | | | [facility] | | | | | | [facility] | | | | | | [facility] | | | | | | [facility] | | + + + + + + | Blood | [id number] | | REFERENCE | | | Product | | | [facility] | | | Expiration | | | [facility] | | | Date and | | | [facility] | | | Time | | | B[facility]OD | | | | | | CENTER | | + + + + + + | Product | [id number] | | REFERENCE | | | Blood Type | | | [facility] | | | Barcode | | | [...] + + + | Specimen Expiration Date: [id number] | REFERENCE LAB | | | [facility] | | | [facility] | | | [facility] | + + + + + + + + | Performing | Address | City/State/Zipcode | Phone Number | | Organization | | | | + + + + + | REFERENCE LAB | [address] | [place] [address] | [phone] | | [facility] | | | | | [facility] [...] [facility] | | | | Performed by [facility] [address] | | SACRED | | | | [address] | | HEART | | | | [address] | | MEDICAL | | | | [...] + | [facility] | [address] [place] [address]. | [place] [address] | | | [facility] | | | | | LABORATORY [...] [facility] | | | | Performed by [facility] [address] | mmol/L | SACRED | | | | [address], [place] | | HEART | | | | [address] | | MEDICAL | | | | [...] + + | GILBERTO NICHOLAS | [address] | [place] [address] | | | [facility] | | | | | [...] [facility] | | | | Performed by [facility] [address] | mmol/L | SACRED | | | | [address] | | HEART | | | | [address] | | MEDICAL | | | | [...] SACRED | [address] | [place] [address] | | | [facility] | [...] [facility] | | | | Performed by [facility] [address] | | SACRED | | | | [address], [place] | | HEART | | | | [address] | | MEDICAL | | | | [...] [address] | [place] [address] | | | [facility] | | | | | [...] CENTER | | | | 3.5Performed by [facility] [address] | | LABORATORY | | | | [address], [place], [place] | | CERNER | | | | [address] | | | | + + + + + + + + | Specimen | + + | Blood specimen | | (specimen) | + + + + + + + | Performing | Address | City/State/Zipcode | Phone Number | | Organization | | | | + + + + + | [facility] | [address] | [place] [address] | | | [facility] | | | | | [...] [facility] | | | Venous | by [facility] [address], | mmol/L | SACRED | | | | [place] [address] | | HEART | | | |Performed by [facility] [address], [place] [address] | | MEDICAL | | | | [...] | + + + + + | GIBLERTO NICHOLAS | [address] | [place] [address] | | | [facility] | | | | | [...] | | MEDICAL | | | | [facility] [address], | | CENTER | | | | [place] [address] | | LABORATORY | | | | [...] + + | GILBERTO NICHOLAS | [address] | [place] [address] | | | [facility] | | | | | [...] | PROVID ENCE | | | | [facility] [address] [facility] [address] [address], | | SACRED | | | | [place] [address] | | HEART | | | |Performed by [facility] [address], [place] [address] | | MEDICA L | | | [...] + + | GILBERTO NICHOLAS | [address] | [facility] [place] [address] | | | [facility] | | | | | [...] | [facility] | | | | by [facility] [address], | mmol/L | SACRED | | | | [place] [address] | | HEART | | | |Performed by [facility] [address], [place] [address] | | MEDICAL | | | | [...] + + | GILBERTO NICHOLAS | [address] | [place] [address] | | | [facility] | | | | | [...] mg/dL | PROVIDEODILIAE | | | | [facility] [address], | | SACRED | | | | [place], [place] | | HEART | | | |Performed by [facility] [address], [place] | | MEDICAL | | | [...] SACRED | [address] | [place], [place] | | | [facility] MEDICAL CENTER [...] CE | | | ARTERIAL | by [facility] [address], | | SACRED | | | | [place] [address] | | HEART | | | |Performed by [facility] [address], [place] [address] | | MEDICAL | | | | [...] + | GILBERTO NICHOLAS | [address] | [place] [address] | | | [facility] | | | | | [...] [facility] | | | | Performed by [facility] [address] | | SACRED | | | | [address] | | HEART | | | | [address] | | MEDICAL | | | | [...] + + | GILBERTO NICHOLAS | [address] | [place] [address] | | | [facility] | [...] CE | | | ARTERIAL | by [facility] [address], | | SACRED | | | | [place] [address] | | HEART | | | |Performed by [facility] [address], [place] [address] | | MEDICAL | | | | [...] + + | ANAODILIASneha NICHOLAS | [address] | [place] [address] | | | [facility] | | | | | [...] + + + + + | MANJU VIDEO EDITING INTERN AB | <0.2 | 0.0 - 0.9 [...] | | | | | | [facility] [id number] | | | | | | [address] | | | | | | [place] | | | | | | [id number] David J | | | | | | MD Ph:[phone] | | | | + + + + + + + + | Specimen | + + | Blood specimen | | (specimen) | + + + + + + + | Performing | Address | City/State/Zipcode | Phone Number | | Organization | | | | + + + + + | GILBERTO NIHCOLAS | [address] | [place] [address] | | | [facility] | | | | | [...] [facility] | | | Arterial | by [place] [address] [address] [address], | mmol/L | SACRED | | | | [place] [address] | | HEART | | | |Performed by [place] [address], [place] [address] | | MEDICAL | | | | [...] + + | GILBERTO NICHOLAS | [address] | [place] [address] | | | [facility] | | | | | [...] CE | | | ARTERIAL | by [facility] [address], | | SACRED | | | | [place] [address] | | HEART | | | |Performed by [facility] [address], [place] [address] | | MEDICAL | | | | [...] SACRED | [address] | [place] [address] | | | [facility] | [...] [facility] | | | | Performed by [facility] [address] | | SACRED | | | | [address], [place] | | HEART | | | | [address] | | MEDICAL | | | | [...] [address] | [place] [address] | | | [facility] | | | | | [...] MEDICAL | | | | Performed by [facility] [address] | | CENTER | | | | [address], [place] | | LABORATORY | | | | [address] | | [place] | | | | [...] + + | GILBERTO NICHOLAS | [address] | [place] [address] | | | [facility] | | | | | [...] | | | Arterial | Performed by [facility] [address] | mmol/L | SACRED | | | | [address] [place] | | HEART | | | | [address] | | MEDICAL | | | | [...] + + | GILBERTO NICHOLAS | [address] | [place] [address] | | | [facility] | | | | | [...] | [facility] | | | | by [facility] [address], | mmol/L | SACRED | | | | [place] [address] | | HEART | | | |Performed by [facility] [address], [place] [address] | | MEDICAL | | | | [...] + + | [facility] | [address] | [place] [address] | | | [facility] | | | | | [...] | | | ARTERIAL | Performed by [facility] [address] | | SACRED | | | | [address] [place] | | HEART | | | | [address] | | MEDICAL | | | | [...] + | ANAODILIASneha NICHOLAS | [address] | [place] [address] | | | [facility] | | | | | [...] PROVIDENCE | | | | Performed by [facility] [address] | | SACRED | | | | [address] [place] | | HEART | | | | [address] | | MEDICAL | | | | [...] + + | GILBERTO NICHOLAS | [address] | [place] [address] | | | [facility] | | | | | [...] [facility] | | | Venous | by [facility] [address], | mmol/L | SACRED | | | | [place] [address] | | HEART | | | |Performed by [facility] [address], [place] [address] | | MEDICAL | | | | [...] + + | PROVIDEODILIAE SACRED | [address] | [place] [address] | | | [facility] | | | | | LABORATORY [...] | | MEDICAL | | | | [facility] [address], | | CENTER | | | | [place] [address] | | LABORATORY | | | | [...] + + | GILBERTO NICHOLAS | [address] | [place] [address] | | | [facility] | | | | | [...] | | HEART | | | | [facility] and | | MEDICAL | | [...] IOM | | | | | | ([facility]). | | | | | [...] [facility] | | | | | | [address] | | | | | | [address] [place], [place] | | | | | | [phone] Daniel | | | | | | L Ph:[phone] | | | | + + + + + + + + | Specimen | + + | Blood specimen | | (specimen) | + + + + + + + | Performing | Address | City/State/Zipcode | Phone Number | | Organization | | | | + + + + + | GILBERTO NICHOLAS | [address] [facility] [address]. | [place] [address] | | | [facility] | | | | | [...] PROVIDENCE | | | Venous | by [facility] [address], | mmol/L | SACRED | | | | [place] [address] | | HEART | | | |Performed by [place] [address], [place] [address] | | MEDICAL | | | | [...] + + | GILBERTO NICHOLAS | [address] | [place] [address] | | | [facility] | | | | | [...] PROVID ENCE | | | Cells | [facility] [address], | | SACRED | | | | [place] [address] | | HEART | | | |Performed by [facility] [address], [place] [address] | | MEDICA L | | | [...] | [facility] | | | | by [facility] [address], | mmol/L | SACRED | | | | [place] | | HEART | | | |Performed by [facility] [address], [place] | | MEDICAL | | | | [...] + + | GILBERTO NICHOLAS | [address] | [place] [address] | | | [facility] | | | | | [...] | | | Arterial | Performed by [facility] [address]. | mmol/L | SACRED | | | | [address] [place], [place] | | HEART | | | | [address] | | MEDICAL | | | | [...] + + | GILBERTO NICHOLAS | [address] | [place] [address] | | | [facility] | | | | | [...] E | | | Normalized | by [place] [address] [address], | mg/dL | SACRED | | | | [place] [address] | | HEART | | | |Performed by [facility] [address], [place] [address] | | MEDICAL | | | | [...] + + | GILBERTO NICHOLAS | [address] | [place] [address] | | | [facility] | | | | | [...] CE | | | ARTERIAL | by [facility] [address], | | SACRED | | | | [place] [address] | | HEART | | | |Performed by [facility] [address], [place] [address] | | MEDICAL | | | [...] + | ANALENO NICHOLAS | [address] | [place] [address] | | | [facility] | | | | | [...] | | | Venous | Performed by [facility] [address] | mmol/L | SACRED | | | | [address], [place] | | HEART | | | | [address] | | MEDICAL | | | | [...] [address] | [place] [address] | | | [facility] | [...] | [facility] | | | | by [facility] [address], | | SACRED | | | | [place] [address] | | HEART | | | |Performed by [facility] [address], [place] [address] | | MEDICAL | | | | [...] + + | GILBERTO NICHOLAS | [address] | [place] [address] | | | [facility] | [...] [facility] | | | | Performed by [facility] [address] | | SACRED | | | | [address] [place] | | HEART | | | | [address] | | MEDICAL | | | | [...] + + | ANAODILIASneha YU | [address] | [place] [address] | | | [facility] | | | | | [...] Seldinger technique, a 6 | | | Kosovan sheath was positioned into the right common femoral artery and | | | attached to a flush system. A 5 Kosovan Scott 2 catheter was | | | then positioned through a 6 Kosovan guiding catheter an utilized to | | [...] | Hemostasis was achieved with a 6 Kosovan Angio-Seal device. | | | Maximum sterile [...] | | standard Seldinger technique, a 6 Kosovan sheath was positioned into | | the right common femoral artery and attached to a flush system. | | | | A 5 Kosovan Scott 2 catheter was then positioned through a 6 Kosovan | | guiding catheter an utilized to [...] performed. Hemostasis was achieved with a 6 Kosovan | | Angio-Seal device. | | | [...] [facility] | | | | Performed by [facility] [address] | | SACRED | | | | [address] | | HEART | | | | [address] | | MEDICAL | | | | [...] [address] | [place] [address] | | | [facility] | | | | | [...] | | | Venous | Performed by [facility] [address] | mmol/L | SACRJAD | | | | [address] | | HEART | | | | [address] | | MEDICAL | | | | [...] + + | GILBERTO NICHOLAS | [address] | [place] [address] | | | [facility] | [...] | | | Normalized | Performed by [facility] [address]. | mg/dL | SACRED | | | | [address] [place] | | HEART | | | | [address] | | MEDICAL | | | | [...] + + | GILBERTO NICHOLAS | [address] | [place] [address] | | | [facility] | | | | | [...] | [facility] | | | | by [facility] [address], | mmol/L | SACRED | | | | [place] [address] | | HEART | | | |Performed by [facility] [address], [place] [address] | | MEDICAL | | | | [...] + + + + + | [facility] | [address] | [place] [address] | | | [facility] | | | | | [...] GILBERTO | | | | Performed by [facility] [address] | | SACRED | | | | [address], [place] | | HEART | | | | [address] | | MEDICAL | | | | [...] [address] | [place] [address] | | | [facility] | [...] ANAN CE | | | | by [facility] [address], | | SACRED | | | | [place] [address] | | HEART | | | |Performed by [facility] [address], [place] [address] | | MEDICAL | | | | [...] SACRED | [address] | [place] [address] | | | [facility] | | | | | [...] [facility] | | | | Performed by [facility] [address] | | SACRED | | | | [address] [place] | | HEART | | | | [address] | | MEDICAL | | | | [...] [address] | [place] [address] | | | [facility] | | | | | [...] | | | REPORT | Performed by [facility] [address] | | SACRED | | | | [address], [place] | | HEART | | | | [address] | | MEDICAL | | | | [...] + + | GILBERTO NICHOLAS | [address] | [place] [address] | | | [facility] | | | | | [...] | | | REPORT | Performed by [facility] [address] | | SACRED | | | | [address] [place] | | HEART | | | | [address] | | MEDICAL | | | | [...] [address] | [place] [address] | | | [facility] | | | | | [...] Demographics Patient Name MARCELLA | | | AYM Francois Room Number 258 Patient Number | | | [id number] Date of Study 08/18/2017 Visit | | | Number [id number] | | | Referring Physician BRI Sánchez Date of | | | 1955 Rough Rounder Julien Zamora Age | | | 62 year(s) Interpreting | | | [facility] | | | Flocculator Operator | | | Mara Patton MD Gender | | | Female Nurse | | | Stress Principal Electrical Engineer Procedure Type of Study TTE procedure: | [...] Atrium Left Ventricle EF | | | Prtfkqoyy90% | | | Electronically signed by Mara [...] | | | | | | EF Hvfxhlaye39% | | | | | + + --+ + + | Procedure Note | + + | Daniel You In 08/18/2017 11:38 AM [facility] Transthoracic Echocardiography Report | | (TTE) Demographics Patient Name MARCELLA MONTAÑO I Room Number 258 Patient | | Number [id number] Date of Study 08/18/2017 Visit Number [id number] | | Referring Physician BRI Sánchez Date of | | 1955 Rough Rounder Julien Zamora Age 62 year(s) | | Interpreting [facility] Flocculator Operator | | Mara Patton MD Gender | | Female Nurse Stress TechnicianProcedureType of | | Study TTE procedure: ECHO Complete, Add-on Items, COLOR DOPPLER, COMPLETE | | DOPPLER.Procedure dateDate: 08/18/2017Start: 07:21 AMTechnical Quality: Adequate | | visualizationStudy [facility] 425.4/ I42.9.Patient | | Status: RoutineHeight: 63 [...] Left Atrium Left Ventricle EF | | Ftkcmtfkc03% | |Conclusions | |Summary | |1. Small [...] Left Ventricle | | | | EF Ldnpxtvia96% | + + + +---------+ + + [...] | | | Arterial | Performed by [facility] [address] | mmol/L | SACRED | | | | [address] [place], [place] | | HEART | | | | [address] | | MEDICAL | | | | [...] NICHOLAS | [address] | [place] [address] | | | [facility] | [...] E | | | Normalized | by [facility] [address], | mg/dL | SACRED | | | | [place] [address] | | HEART | | | |Performed by [facility] [address], [place] [address] | | MEDICAL | | | | [...] + | [facility]ED | [address] | [place] [address] | | | [facility] | [...] [facility] | | | | Performed by [facility] [address] | | SACRED | | | | [address], [place] | | HEART | | | | [address] | | MEDICAL | | | | [...] + + | GILBERTO NICHOLAS | [address] | [place] [address] | | | [facility] | | | | | [...] CE | | | ARTERIAL | by [facility] [address], | | SACRED | | | | [place] [address] | | HEART | | | |Performed by [facility] [address], [place] [address] | | MEDICAL | | | | [...] SACRED | [address] | [place] [address] | | | [facility] | | | | | [...] PROVID ENCE | | | | by [facility] [address], | | SACRED | | | | [place] [address] | | HEART | | | |Performed by [facility] [address], [place] [address] | | MEDICA L | | | [...] + + | [facility] SACRED | [address] | [place] [address] | | | [facility] | | | | | [...] | | LABORATORY | | | | [facility] [address], | | CLAUDIANER | | | | [place] [address] | | | | + + + + + + + + | Specimen | + + | Blood specimen | | (specimen) | + + + + + + + | Performing | Address | City/State/Zipcode | Phone Number | | Organization | | | | + + + + + | GILBERTO NICHOLAS | [address] | [place] [address] | | | [facility] | | | | | [...] PROVIDE NCE | | | | by [facility] [address], | | SACRED | | | | [place] [address] | | HEART | | | |Performed by [facility] [address], [place] [address] | | MEDICAL | | | | [...] + + | GILBERTO NICHOLAS | [address] | [place] [address] | | | [facility] | | | | | [...] PROVIDEN CE | | | | by [facility] [address], | | SACRED | | | | [place] [address] | | HEART | | | |Performed by [facility] [address], [place] [address] | | MEDICAL | | | | [...] SACRED | [address] | [place] [address] | | | [facility] | [...] | | MEDICAL | | | | [facility] [address], | | CENTER | | | | [place] [address] | | LABORATORY | | | | [...] + + | ANAODILIASneha YU | [address] | [place] [address] | | | [facility] | | | | | [...] + + | Performing | Address | City/State/[facility] Centercode | Phone Number | | Organization [...] | [place] | | | | [facility] [address], | | SACRED | | | | [place] [address] | | HEART | | | |Performed by [facility] [address], [place] [address] | | MEDICAL | | | | [...] + + | GILBERTO NICHOLAS | [address] | [place] [address] | | | [facility] | | | | | [...] - 1.030 | PROVIDENCE | | | [place], | | | SACRED | | | [...] | | | SOURCE | Performed by [facility] [address] | | SACRED | | | | [address] | | HEART | | | | [address] | | MEDICAL | | | | [...] + + | GILBERTO NICHOLAS | [address] | [place] [address] | | | [facility] | | | | | [...] PROVID ENCE | | | | by [facility] [address], | | SACRED | | | | [place] [address] | | HEART | | | |Performed by [facility] [address], [place] [address] | | MEDICA L | | | [...] + + | GILBERTO NICHOLAS | [address] | [place] [address] | | | [facility] | | | | | [...] [facility] | | | Source | by [facility] [address] [facility] [address], | | SACRED | | | | [place] [address] | | HEART | | | |Performed by [facility] [address], [place] [address] | | MEDICAL | | | | [...] + + | GILBERTO NICHOLAS | [address] | [place] [address] | | | [facility] | | | | | [...] and a short | | | 5 Kosovan vascular sheath was placed. A 5 Kosovan Scott 1 catheter | | | was [...] performed and a short | | 5 Kosovan vascular sheath was placed. A 5 Kosovan Scott 1 catheter | | was formed [...] | | | | | seconds.Performed by [facility] | | | | | | [address], | | | | | | [place] [address] | | | | + + + + + + + + | Specimen | + + | Blood specimen | | (specimen) | + + + + + + + | Performing | Address | City/State/Zipcode | Phone Number | | Organization | | | | + + + + + | GILBERTO SACRJAD | [address] | [place] [address] | | | [facility] | | | | | [...] | | | Normalized | Performed by [facility] [address] | mg/dL | SACRED | | | | [address], [place], [place] | | HEART | | | | [address] | | MEDICAL | | | | [...] NICHOLAS | [address] | [place] [address] | | | [facility] | [...] | [facility] | | | | by [facility] [address], | mmol/L | SACRED | | | | [place] [address] | | HEART | | | |Performed by [facility] [address], [place] [address] | | MEDICAL | | | | [...] + + | GILBERTO NICHOLAS | [address] | [place] [address] | | | [facility] | | | | | [...] | [facility] | | | | by [facility] CAMPUS [address], | mmol/L | SACRED | | | | [place] [address] | | HEART | | | |Performed by [facility] [address], [place] [address] | | MEDICAL | | | | [...] + | [facility] | [address] | [place] [address] | | | [facility] | | | | | LABORATORY [...] PROVIDEODILIAE | | | | Performed by [facility] [address] | | SACRED | | | | [address], [place] | | HEART | | | | [id number] | | MEDICAL | | | | [...] + + | GILBERTO NICHOLAS | [address] | [place] [address] | | | [facility] | | | | | [...] CE | | | ARTERIAL | by [facility] [address], | | SACRED | | | | [place] [address] | | HEART | | | |Performed by [facility] [address], [place] [address] | | MEDICAL | | | | [...] Ave. | [place] | | | [facility] | | | | | [...] PROVIDE NCE | | | | by [facility] [address], | | SACRED | | | | [address] | | HEART | | | |Performed by [facility] [address], [place] [address] | | MEDICAL | | | | [...] + + | GILBERTO NICHOLAS | [address] | [place] [address] | | | HEART [facility] | | | | | LABORATORY [...] | | | | | | LAB [place] | | | | | | [facility] | | | | | | [facility] | | | | | | BLOOD | | | | | | CENTER | | + + + + + + | Rh Type | Positive | | REFERENCE | | | | | | LAB [place] | | | | | | [facility] | | | | | | [facility] | | | | | | BLOOD | | | | | | CENTER | | + + + + + + + + | Specimen | + + | | + + + + + | Narrative | Performed At | + + + | Specimen Expiration Date: [id number] | REFERENCE LAB | | | [place] | | | [facility] | | | [facility] C[facility] | + + + + + + + + | Performing | Address | City/State/Zipcode | Phone Number | | Organization | | | | + + + + + | REFERENCE LAB | [address] | [place] [address] | [phone] | | [place] | | | | | [facility] [...] PROVIDEN CE | | | | by [facility] [address], | | SACRED | | | | [place] [address] | | HEART | | | |Performed by [facility] [address], [place] [address] | | MEDICAL | | | | [...] + | ANAODILIASneha SAENZJAD | [address] | [place] [address] | | | [facility] | | | | | [...] | | MEDICAL | | | | [facility] [address], | | CENTER | | | | [place] [address] | | LABORATORY | | | | [...] + + | GILBERTO NICHOLAS | [address] | [place] [address] | | | [facility] | | | | | [...] ENCE | | | Basophils | by [facility] [address], | K/uL | SACRED | | | | [place] [address] | | HEART | | | |Performed by [facility] [address], [place] [address] | | MEDICA L | | | [...] + | GILBERTO NICHOLAS | [address] | [place] [address] | | | [facility] | | | | | CELESTE [...] | | | | | | LAB [place] | | | | | | [facility] | | | | | | [facility] | | | | | | BLOOD | | | | | | CENTER | | + + + + + + | Rh Type | PositiveComment: Patient | | REFERENCE | | | | is remote crossmatch | | LAB [place] | | | | eligible | | [facility] | | | | | | [facility] | | | | | | BLOOD | | | | | | CENTER | | + + + + + + | Antibody | Negative | | REFERENCE | | | Screen | | | LAB [place] | | | | | | [place] [...] + + + | Specimen Expiration Date: [id number] | REFERENCE LAB | | | [place] | | | [facility] | | | [facility] C[facility] | + + + + + + + + | Performing | Address | City/State/Zipcode | Phone Number | | Organization | | | | + + + + + | REFERENCE LAB | [address] | [place] [address] | [phone] | | [place] | | | | | [facility] [...]
--- OUTSIDE RECORDS SUMMARY | 2019-12-20 14:02 | XMS ---
PreManage Notification: DANYEL NARANJO Security Senior Gl Accountant Events No recent Security Events currently on file CRITERIA MET - Group Notification - [facility] - Has Care Guidelines - [facility] - 2 Visits in 30 Days CARE PROVIDERS BRONSON HARDWICK Internal Medicine 12/10/2019-Current PHONE: [phone] [facility] has no Care Guidelines for this patient. Care History Medical/Surgical 08/25/2017 [facility] - PATIENT HAS PCP FOLLOW UP APT ON 01/30/[address] HARDWICK. - Patient is currently established with [facility]. If patient is seen in the ED during business hours. Please contact [facility] at [facility] at Ext [phone]. Care Recommendation: This patient has had 5 or more Emergency Department visits in the last 12 months.\T\nbsp; Patient requires education on the scope and purpose of the ED as an acute care provider not a Primary Care Provider and should not be utilized for chronic conditions.\T\nbsp; If patient returns to ED please contact Community Health WorkerYanira at [phone]. These are guidelines and the provider should exercise clinical judgment when providing care. E.D. VISIT COUNT (12 MO.) 5 YOVANNY Hoyos TOTAL 5 NOTE: Visits indicate total known visits. ED/UCC VISIT TRACKING (12 MO.) 12/20/2019 13:59 [place]OVANNY [place] TYPE: Emergency COMPLAINT: - SOB 12/07/2019 06:14 [place]OVANNY [place] [place] TYPE: Emergency COMPLAINT: - ABD PAIN DIAGNOSES: - Allergy status to penicillin - Personal history of nicotine dependence - Other watermelon inspector (current) drug therapy - lobsterman (current) use of aspirin - Right upper quadrant pain - Right upper quadrant pain - Shortness of breath - Allergy status to other antibiotic agents status - Allergy status to other drugs, medicaments and biological sub - Other chronic pain - Chronic obstructive pulmonary disease, unspecified 12/06/2019 17:34 [place]OVANNY [place] [place] TYPE: Emergency COMPLAINT: - R SIDE ABDOMINAL PAIN DIAGNOSES: - Chronic obstructive pulmonary disease, unspecified - USP (current) use of aspirin - Allergy status to penicillin - Allergy status to other drugs, medicaments and biological sub - Other nonspecific abnormal finding of lung field - Other fdc (current) drug therapy - Right upper quadrant pain - Allergy status to other antibiotic agents status - Personal history of nicotine dependence 06/09/2019 03:29 [place]OVANNY [place] [place] TYPE: Emergency COMPLAINT: - CHEST PAIN DIAGNOSES: - Allergy status to penicillin - Chest pain, unspecified - Chronic obstructive pulmonary disease, unspecified - Personal history of nicotine dependence - Chest pain, unspecified - Other watermelon inspector (current) drug therapy 01/22/2019 21:33 YOVANNY [place] [place] TYPE: Emergency COMPLAINT: - NAUSEA,ABDOMINAL PAIN DIAGNOSES: - Allergy status to other drugs, medicaments and biological sub - Epigastric pain - Personal history of nicotine dependence - Other fdc (current) drug therapy - lobsterman (current) use of aspirin - Allergy status to penicillin - Chronic obstructive pulmonary disease, unspecified - Allergy status to other antibiotic agents status INPATIENT VISIT TRACKING (12 MO.) No inpatient visits to display in this time frame [email or web address]
[2019-12-20] MEDS ORDERED: IPRAT-ALBUT 0.5-3 ML INH (16:04)
[2019-12-20] MEDS ORDERED: PREDNISONE20 MG PO (16:04)
--- NOTE | 2019-12-21 07:16 | PATH ---
[facility] [address] [place], [place] [address] Signed ORDERING PHYSICIAN: Hoang Peters MD PATIENT NAME: DANYEL NARANJO GENDER: F : 1955 Prior History: DATE CASE NUM ADEQUACY DIAGNOSIS HPV RESULTS PHYSICIAN The 5 most recent reports are included. This history does not include results of pap smears performed at another laboratory. SPECIMEN(S): MOLECULAR PATHOLOGY RESULTS: SARS-CoV-2 Not Detected ADDITIONAL NOTES.: The [place] Fusion SARS-CoV-2 Assay is a multiplex real-time PCR (RT-PCR) in vitro diagnostic test intended for the qualitative detection of RNA from SARS-CoV-2 from individuals who meet COVID-19 clinical and/or epidemiological criteria. In general, SARS-CoV-2 RNA can be detected during the acute phase of infection. Positive results indicate the presence of SARS-CoV-2 RNA. Clinical correlation with patient history and other diagnostic information is necessary to determine patient infection status. Positive results do not rule out bacterial infection or co-infection with other viruses. Negative results do not preclude SARS-CoV-2 infection and should not be used as the sole basis for patient management decisions. Negative results must be combined with other clinical observations, patient history, and epidemiological information. The [place] Fusion SARS-CoV-2 Assay is not yet approved or cleared by the [place] FDA. When there are no FDA-approved or cleared tests available, and other criteria are met, FDA can make tests available under an emergency access mechanism called an Emergency Use Authorization (EUA). The EUA for this test is supported by the [place] Chemistry Analyst of Health and Human Service's (HHS's) declaration that circumstances exist to justify the emergency use of in vitro diagnostics for the detection and/or diagnosis of the virus that causes COVID-19. This EUA will remain in effect for the duration of the COVID-19 declaration justifying emergency of IVDs, unless it is terminated or PATIENT NAME: DANYEL NARANJO PATHOLOGY DATE OF : 51 REPORT #: [id number] PHYSICIAN: NATALEE PATHOLOGY PCP: BRONSON HARDWICK DO REPORT IS CONFIDENTIAL AND NOT TO BE RELEASED WITHOUT AUTHORIZATION [facility] [address] [place], [place] [address] Signed revoked by FDA, after which the test may no longer be used. The [place] Fusion SARS-CoV-2 Assay is for use only under EUA in US laboratories certified under the Clinical Laboratory Improvement Amendments of 1988 (CLIA) to perform high complexity tests. [facility] is certified under CLIA to perform high complexity clinical laboratory testing. PERFORMING LABORATORY.: Molecular testing was performed by [facility] [address] [place] [address] (Shop Service Technician: Evangelist Villarreal D.O.; CLIA#: [id number]) Diagnostician: System Interface Pathologist Electronically Signed 12/21/2019 Copies: ~ PATIENT NAME: DANYEL NARANJO PATHOLOGY DATE OF : [birth year] REPORT #: [id number] PHYSICIAN: NATALEE CAAL PCP: BRONSON HARDWICK DO REPORT IS CONFIDENTIAL AND NOT TO BE RELEASED WITHOUT AUTHORIZATION
--- NOTE | 2019-12-21 08:59 | EKG ---
[facility] [address] [facility] [place], [place] [address] Signed Normal sinus rhythm Normal ECG When compared with ECG of 07-DEC-2019 06:33, No significant change was found Confirmed by ANDREE VERAS MD ([id number]) on 12/21/2019 8:59:14 AM Electronically Signed By: ANDREE VERAS MD 12/21/19 0859 PATIENT NAME: DANYEL NARANJO AURA Electrocardiogram DATE OF : [birth year] PHYSICIAN: ANDREE VERAS MD REPORT #: [id number] REPORT IS CONFIDENTIAL AND NOT TO BE RELEASED WITHOUT AUTHORIZATION
== END 2019-12-20 17:52 | disposition home or self-care (01) ==
LOC: ED 13:59
DX: J44.1 Chronic obstructive pulmonary disease with (acute) exacerbation (principal); Z87.891 Personal history of nicotine dependence; Z88.0 Allergy status to penicillin; Z88.8 Allergy status to other drugs, medicaments and biological substances; Z88.1 Allergy status to other antibiotic agents; Z79.899 Other long term (current) drug therapy; Z79.82 Long term (current) use of aspirin
CPT/HCPCS: 71045; 80053; 83735; 83880; 84484; 85025; 93005; 93010; 94640; 94761; 99285-25; C9803

== ENCOUNTER 2020-01-09 04:26 | Observation (INO) | payer MEDICARE, MEDICAID, OTHER ==
[~2020-01-09] VITALS: Ht 165.1 cm; Wt 70.0 kg
[~2020-01-09 04:26] MED LIST changes: +ADULT ASPIRIN R81 MG PO; +IPRAT-ALBUT 0.5-3 ML INH; +PREDNISONE20 MG PO; +PROAIR HFA8.5 GM INH; -VENTOLIN HFA18 GM INH
--- OUTSIDE RECORDS SUMMARY | 2020-01-09 04:30 | XMS ---
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 - Has Care Guidelines - [facility] - 2 Visits in 30 Days CARE PROVIDERS BRONSON HARDWICK Internal Medicine 12/10/2019-Current PHONE: [phone] [facility] has no Care Guidelines for this patient. Care History Medical/Surgical 12/21/2019 [facility] Patient had scheduled follow up today with PCP Dr. Hardwick, but due to shortness of breathe patient felt the need to come to ED. Abdominal CT from showed remarkable findings on lung.\T\nbsp; Patient stated she will do a 30 day follow up for this event with Dr. Hardwick. 08/25/2017 [facility] - PATIENT HAS PCP FOLLOW UP APT ON 01/30/[address] HARDWICK. - Patient is currently established with [facility]. If patient is seen in the ED during business hours. Please contact [facility] at [facility] at [phone] [phone]. Care Recommendation: This patient has had 5 or more Emergency Department visits in the last 12 months.\T\nbsp; Patient requires education on the scope and purpose of the ED as an acute care provider not a Primary Care Provider and should not be utilized for chronic conditions.\T\nbsp; If patient returns to ED please contact Community Health WorkerYanira at [phone]. These are guidelines and the provider should exercise clinical judgment when providing care. Christofer VISIT COUNT (12 MO.) 6 [place]NY [place] TOTAL 6 NOTE: Visits indicate total known visits. ED/UCC VISIT TRACKING (12 MO.) 01/09/2020 04:27 [facility] [place] TYPE: Emergency COMPLAINT: - SHORTNESS OF BREATHE 12/20/2019 13:59 [facility] [place] TYPE: Emergency COMPLAINT: - SOB DIAGNOSES: - Contact with and (suspected) exposure to other viral communic - Personal history of nicotine dependence - long-term (current) use of aspirin - Shortness of breath - Other prison (current) drug therapy - Allergy status to other drugs, medicaments and biological substances status - Allergy status to other antibiotic agents status - Chronic obstructive pulmonary disease with (acute) exacerbati - Allergy status to penicillin 12/07/2019 06:14 [facility] [place] TYPE: Emergency COMPLAINT: - ABD PAIN DIAGNOSES: - Allergy status to penicillin - Personal history of nicotine dependence - Other prison (current) drug therapy - 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 - Right upper quadrant pain - Right upper quadrant pain - Shortness of breath - Allergy status to other antibiotic agents status - Allergy status to other drugs, medicaments and biological substances status - Other chronic pain - Chronic obstructive pulmonary disease, unspecified 12/06/2019 17:34 [facility] [place] TYPE: Emergency COMPLAINT: - R SIDE ABDOMINAL PAIN DIAGNOSES: - Chronic obstructive pulmonary disease, unspecified - long-term (current) use of aspirin - Allergy status to penicillin - Allergy status to other drugs, medicaments and biological substances status - Other nonspecific abnormal finding of lung field - Other prison (current) drug therapy - Right upper quadrant pain - Allergy status to other antibiotic agents status - Personal history of nicotine dependence 06/09/2019 03:29 [facility] [place] TYPE: Emergency COMPLAINT: - CHEST PAIN DIAGNOSES: - Allergy status to penicillin - Chest pain, unspecified - Chronic obstructive pulmonary disease, unspecified - Personal history of nicotine dependence - Chest pain, unspecified - Other termination clerk (current) drug therapy 01/22/2019 21:33 [facility] [place] TYPE: Emergency COMPLAINT: - NAUSEA,ABDOMINAL PAIN DIAGNOSES: - Allergy status to other drugs, medicaments and biological substances status - Epigastric pain - Personal history of nicotine dependence - Other prison (current) drug therapy - long-term (current) use of aspirin - Allergy status to penicillin - Chronic obstructive pulmonary disease, unspecified - Allergy status to other antibiotic agents status INPATIENT VISIT TRACKING (12 MO.) No inpatient visits to display in this time frame [email or web address]
--- NOTE | 2020-01-09 07:00 | NUR ---
Spoke with RT Chuy. Chuy was conductor/brakeman and called in and is now on his way home. He states he has spoken with Amy and feels she needs med management. She is unsure of meds and why she is taking. She started declining when steroids were completed and did not follow up. Will update Dr. Fitzgerald on AM report.
--- NOTE | 2020-01-09 08:19 | NUR ---
PT IS ALERT AND ORIENTED X4 SITTING UP IN BED. PT DENIES NAUSEA, AND SOB; HOWEVER REPORTS DISCOMFORT WITH BREATHING. PT STATES THIS DISCOMFORT HAS IMPROVED SINCE BEING AT THE HOSPITAL TODAY. PT O2 SATS ARE UPPER 90'S WITH 3L O2 VIA NC. ALL OTHER VITALS WNL. PT IS STEADY ON HER FEET AND AMBULATES TO THE BATHROOM WITH ONLY CORD MANAGEMENT ASSISTANCE. PT THEN BACK TO BED. IV SITE IS INTACT, NO REDNESS OR SWELLING NOTED, PT DENIES PAIN AT SITE, FLUSHES EASILY. PT GIVEN CALL LIGHT AND EDUCATED ON HOW TO USE.
--- NOTE | 2020-01-09 08:30 | NUR ---
Discussed in am meeting. Will monitor pt on obs. Education will be provided. RT is aware and have spoken with pt. Nurses will provide medication education and 02 education as per Rt report, pt's did not have her 02 on as she was unaware of how to turn the tank on.
--- NOTE | 2020-01-09 10:45 | NUR ---
PT IS ALERT AND ORIENTED X4. C/O 06/21 HEADACHE AND REQUESTS TYLENOL, 650 MG PO TYLENOL GIVEN. PT DENIES NAUSEA, REPORTS SAME DISCOMFORT WITH BREATHING FROM EARLIER THIS SHIFT. PT REPORTS DISCOMFORT WITH BREATHING HAS IMPROVED SINCE BEING AT THE HOSPITAL. PT IS INDEPENDENT UP TO BEDSIDE COMMODE. CALL LIGHT IS WITHIN REACH.
--- NOTE | 2020-01-09 11:45 | NUR ---
FULL REPORT GIVEN TO ELÍAS NUNEZ VIA PHONE, ALL QUESTIONS ANSWERED.
--- NOTE | 2020-01-09 12:03 | NUR ---
PT LEFT UNIT VIA BED FOR TRANSFER TO MED/SURG ROOM 116. ALL PERSONAL BELONGINGS WENT WITH PT. PT IS ALERT AND ORIENTED X4, AWARE OF PLAN.
--- NOTE | 2020-01-09 12:14 | NUR ---
PATIENT TO MED SURG VIA BED.
--- NOTE | 2020-01-09 12:49 | NUR ---
PATIENT IS RESTING IN BED, LUNCH TRAY IN ROOM WITH PATIENT.
--- NOTE | 2020-01-09 14:39 | NUR ---
BECAUSE OF AGP, UNABLE TO VISIT PT AT THIS TIME. WILL FOLLOW
--- NOTE | 2020-01-09 16:42 | NUR ---
Called and spoke with [facility]. They will have staff visit patient on day of dc for instructions on concentrator.
--- NOTE | 2020-01-09 17:44 | NUR ---
PATIENT SITTING UP IN BED TO EAT DINNER. REVIEW OF MEDICATIONS AND WHAT SHE HAS RECIEVED TODAY. PATIENT DENIES NEEDS, OTHER THAT WANTING DAVID AT 1830
--- NOTE | 2020-01-09 18:00 | NUR ---
PATIENT EATING DINNER, VITALS AND I&OS CHARTED. PATIENT BORROWING HOSPITALS PHONE EQUIPMENT TESTER. CALL LIGHT WITHIN REACH
--- NOTE | 2020-01-09 18:04 | PATH ---
[facility] [address] [place], [place] [address] Signed ORDERING PHYSICIAN: Jose Fitzgerald MD PATIENT NAME: DANYEL NARANJO GENDER: F : 1955 Prior History: DATE CASE NUM ADEQUACY DIAGNOSIS HPV RESULTS PHYSICIAN The 5 most recent reports are included. This history does not include results of pap smears performed at another laboratory. SPECIMEN(S): No Source Given MOLECULAR PATHOLOGY RESULTS: SARS-CoV-2 Not Detected ADDITIONAL NOTES.: The [place] Fusion SARS-CoV-2 Assay is a multiplex real-time PCR (RT-PCR) in vitro diagnostic test intended for the qualitative detection of RNA from SARS-CoV-2 from individuals who meet COVID-19 clinical and/or epidemiological criteria. In general, SARS-CoV-2 RNA can be detected during the acute phase of infection. Positive results indicate the presence of SARS-CoV-2 RNA. Clinical correlation with patient history and other diagnostic information is necessary to determine patient infection status. Positive results do not rule out bacterial infection or co-infection with other viruses. Negative results do not preclude SARS-CoV-2 infection and should not be used as the sole basis for patient management decisions. Negative results must be combined with other clinical observations, patient history, and epidemiological information. The [place] Fusion SARS-CoV-2 Assay is not yet approved or cleared by the [place] FDA. When there are no FDA-approved or cleared tests available, and other criteria are met, FDA can make tests available under an emergency access mechanism called an Emergency Use Authorization (EUA). The EUA for this test is supported by the [place] of Health and Human Service's (HHS's) declaration that circumstances exist to justify the emergency use of in vitro diagnostics for the detection and/or diagnosis of the virus that causes COVID-19. This EUA will remain in effect for the duration of the COVID-19 declaration justifying emergency of IVDs, unless it is terminated or PATIENT NAME: DANYEL NARANJO PATHOLOGY DATE OF : 51 REPORT #: [id number] PHYSICIAN: NATALEE PATHOLOGY PCP: BRONSON HARDWICK DO REPORT IS CONFIDENTIAL AND NOT TO BE RELEASED WITHOUT AUTHORIZATION [facility] [address] [place], [place] [address] Signed revoked by FDA, after which the test may no longer be used. The [place] Fusion SARS-CoV-2 Assay is for use only under EUA in US laboratories certified under the Clinical Laboratory Improvement Amendments of 1988 (CLIA) to perform high complexity tests. [facility] is certified under CLIA to perform high complexity clinical laboratory testing. PERFORMING LABORATORY.: Molecular testing was performed by [facility] [place] [address] (Associate Product Integrity Engineer: Evangelist Villarreal D.O.; CLIA#: [id number]) Diagnostician: System Interface Pathologist Electronically Signed 01/09/2020 Copies: ~ PATIENT NAME: DANYEL NARANJO PATHOLOGY DATE OF : 51 REPORT #: [id number] PHYSICIAN: NATALEE CAAL PCP: BRONSON HARDWICK DO REPORT IS CONFIDENTIAL AND NOT TO BE RELEASED WITHOUT AUTHORIZATION
--- NOTE | 2020-01-09 19:53 | NUR ---
pt sitting up in bed, tele in place SR, no c/o cp or sob, O2 #LNC chronic. gets nebd, coop with assessment, exp wheezing RLL, call light and fluids at bedside
--- NOTE | 2020-01-09 22:04 | NUR ---
sitting up in bed, watching tv, O2 3LNC in place. no sob, up to bsc x1, back to bed, tolerated well. tolerating fluids well,
--- NOTE | 2020-01-10 00:41 | NUR ---
Resting, eyes closed, O2 in place, no resp distress. call light and fluids at bedside
--- NOTE | 2020-01-10 00:41 | NUR ---
Resting, eyes closed, no resp distress, on room air. call light and fluids at bedside,
--- NOTE | 2020-01-10 03:01 | NUR ---
ROUNDED CHARGE VSS. PRIMARY RN JUAN IN ROOM. SBA TO RESTROOM FOR VOID. ICE WATER PROVIDED.
--- NOTE | 2020-01-10 03:13 | NUR ---
Pt up to BR, O2 3LNC, tolerated well, no SOB on return, coop with assessment, exp wheezing t/o noted bilat. call light and fluids at bedside. no n/v. C/o h/a 06/21 medicated with Tylenol, declines ice to back of head. warm blanket given on requets and ice tea. repositions self in bed.
--- NOTE | 2020-01-10 05:10 | NUR ---
EYES CLOSED, O2 3L NC IN PLACE, NO DISTRESS, CALL LIGHT AT BEDSIDE, TOLERATING DIET AND FLUIDS.
--- NOTE | 2020-01-10 06:24 | NUR ---
pt on aerosol precautions. O2 3L NC chronic, no c/o sob, exp wheezing t/o auscultated, Up to br without help, tolerated fair. tolerating fluids well, no n/v. sl patent. gets 80mg Solumedrol IV. uses call light
--- NOTE | 2020-01-10 07:05 | NUR ---
Bedside report given by Martita NUNEZ. Report given, and the pt was reported to have had an uneventful evening, VSS, and pt has been on her 3L NC that is her baseline. No difficulty breathing now, pt reports no pain or nausea.
--- NOTE | 2020-01-10 08:03 | NUR ---
In room for morning assessment and med pass. Pt assessment complete, VSS, 0/10 pain an no nausea. Pt able to take all morning meds, without difficulty. Pt states she is "feeling so much better". Pt up to chair and anticipating breakfast, table and call light within reach.
--- NOTE | 2020-01-10 09:21 | NUR ---
I ASKED HER IF SHE WOULD LIKE TO TAKE A SHOWER AND SHE SAID IT DEPENDS ON IF SHE GETS TO GO HOME.
--- NOTE | 2020-01-10 09:40 | NUR ---
Spoke with pt for CM assessment. Pt admitted for exacerbation of COPD and per staff did not seem to understand medications and 02 use. Pt states understanding of medications. Updated I called [facility] and they will see her following dc for further education on her 02 concentrator. Pt states she lives in a 3 story home in a basement apartment. Her son lives on the main floor and assists her. He does her house hold chores, shops, takes her to appts, laundry, and cooks her evening meal. She denies any concerns for dc. Pt states she can and does drive. She feels it makes her son feel good to able to assist her so she lets him. Plans on dc to home today. Denies any needs.
--- NOTE | 2020-01-10 10:30 | NUR ---
In room for rounding. Pt up in chair, Kristen RN in room. Pt had called to report anxiety. Pt appearing calm and comfortable now. VSS. Pt sitting in chair, table and call light within reach.
--- NOTE | 2020-01-10 10:41 | NUR ---
TALKED WITH PT REGARDING SMOKING AND O2 USE. PT REPORTS THAT SHE HAS NOT SMOKED IN SOMETIME. TALKED ABOUT PTS MEDICATIONS. PT REPORTS THAT SHE FEELS NERVOUSE ON THE INSIDE, BUT HER BREATHING IS GOOD. PT STATES "I JUST DONT FEEL RIGHT" PT IS UNABLE TO SAY WHAT THAT INTELLS OF NOT FEELING WELL. PT UP IN THE CHAIR WATCHING TV.
[2020-01-10] MEDS ORDERED: AZITHROMYCIN250 MG PO (11:46)
[2020-01-10] MEDS ORDERED: PREDNISONE20 MG PO (11:51)
--- NOTE | 2020-01-10 12:31 | NUR ---
In room for call light. Pt reports that one of her meds listed on her DC packet is wrong, pharmacist in room addressing issue now. Pt reports no pain or nausea. Pt in chair, having lunch, anticiapting DC after her nebulizer tx around 1300. Table and call light within reach.
--- NOTE | 2020-01-10 14:30 | NUR ---
In room for pt DC. Pt verbalized understanding of DC instructions, medications, and follow-up care. Pt VSS. Pt wheeled out by KINSEY.
--- NOTE | 2020-01-10 14:50 | NUR ---
[facility] notified pt is discharging. They will call and visit her today for education of 02 concentrator.
== END 2020-01-10 14:40 | disposition home or self-care (01) ==
LOC: ED 04:26 → CCU 04:28 → MS 11:48
PROVIDERS: ADMIT Student in an Organized Health Care Education/Training Program; ATTEND Student in an Organized Health Care Education/Training Program
DX: J44.1 Chronic obstructive pulmonary disease with (acute) exacerbation (principal); J96.11 Chronic respiratory failure with hypoxia; I25.10 Atherosclerotic heart disease of native coronary artery without angina pectoris; K21.9 Gastro-esophageal reflux disease without esophagitis; I10 Essential (primary) hypertension; I71.9 Aortic aneurysm of unspecified site, without rupture; I25.2 Old myocardial infarction; F39 Unspecified mood [affective] disorder; Z20.828 Contact with and (suspected) exposure to other viral communicable diseases; Z88.0 Allergy status to penicillin; Z88.1 Allergy status to other antibiotic agents; Z88.8 Allergy status to other drugs, medicaments and biological substances; Z79.899 Other long term (current) drug therapy; Z79.82 Long term (current) use of aspirin; Z99.81 Dependence on supplemental oxygen
CPT/HCPCS: 71045; 80053; 83880; 84484; 85025; 87070; 87077; 87186; 87205; 94640; 94644; 94660; 94760; 96365; 96366; 96375; 96376; 99285-25; C9803; G0378; J1956; J2930; U0003

== ENCOUNTER 2020-01-29 00:21 | Emergency (ER) | payer MEDICARE, MEDICAID ==
[~2020-01-29] VITALS: Ht 165.1 cm; Wt 69.9 kg
[~2020-01-29 00:21] MED LIST changes: +AZITHROMYCIN250 MG PO
--- OUTSIDE RECORDS SUMMARY | 2020-01-29 00:24 | XMS ---
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 Care History Medical/Surgical 01/10/2020 [facility] On 01/08/2020 patient contacted clinic to ask PCP Dr. Hardwick if she could turn up oxygen as she was having a hard time breathing; Dr. Hardwick agreed and would evaluate her and oxygen level on 01/17/2020. 12/21/2019 [facility] Patient had scheduled follow up today with PCP Dr. Hardwick, but due to shortness of breathe patient felt the need to come to ED. Abdominal CT from showed remarkable findings on lung.\T\nbsp; Patient stated she will do a 30 day follow up for this event with Dr. Hardwick. 08/25/2017 [facility] - PATIENT HAS PCP FOLLOW UP APT ON 01/30/[address] HARDWICK. - Patient is currently established with [facility]. If patient is seen in the ED during business hours. Please contact CHWs at [facility] at Ext [phone]. Care Recommendation: This patient has had 5 or more Emergency Department visits in the last 12 months.\T\nbsp; Patient requires education on the scope and purpose of the ED as an acute care provider not a Primary Care Provider and should not be utilized for chronic conditions.\T\nbsp; If patient returns to ED please contact Community Health WorkerYanira at [phone]. These are guidelines and the provider should exercise clinical judgment when providing care. E.D. VISIT COUNT (12 MO.) 6 [facility] TOTAL 6 NOTE: Visits indicate total known visits. ED/C VISIT TRACKING (12 MO.) 01/29/2020 00:21 [facility] [place] TYPE: Emergency COMPLAINT: - CHEST PAIN 01/09/2020 04:27 [facility] [place] TYPE: Emergency COMPLAINT: - SHORTNESS OF BREATH 12/20/2019 13:59 [facility] [place] TYPE: Emergency COMPLAINT: - SOB DIAGNOSES: - Contact with and (suspected) exposure to other viral communicable diseases - Personal history of nicotine dependence - FPC (current) use of aspirin - Shortness of breath - Other custodial (current) drug therapy - Allergy status to other drugs, medicaments and biological substances - Allergy status to other antibiotic agents - Chronic obstructive pulmonary disease with (acute) exacerbation - Allergy status to penicillin 12/07/2019 06:14 [facility] [place] TYPE: Emergency COMPLAINT: - ABD PAIN DIAGNOSES: - Allergy status to penicillin - Personal history of nicotine dependence - Other custodial (current) drug therapy - terminal block assembler (current) use of aspirin - Right upper quadrant pain - Right upper quadrant pain - Shortness of breath - Allergy status to other antibiotic agents - Allergy status to other drugs, medicaments and biological substances - Other chronic pain - Chronic obstructive pulmonary disease, unspecified 12/06/2019 17:34 [facility] [place] TYPE: Emergency COMPLAINT: - R SIDE ABDOMINAL PAIN DIAGNOSES: - Chronic obstructive pulmonary disease, unspecified - FPC (current) use of aspirin - Allergy status to penicillin - Allergy status to other drugs, medicaments and biological substances - Other nonspecific abnormal finding of lung field - Other termite exterminator (current) drug therapy - Right upper quadrant pain - Allergy status to other antibiotic agents - Personal history of nicotine dependence 06/09/2019 03:29 [facility] [place] TYPE: Emergency COMPLAINT: - CHEST PAIN DIAGNOSES: - Allergy status to penicillin - Chest pain, unspecified - Chronic obstructive pulmonary disease, unspecified - Personal history of nicotine dependence - Chest pain, unspecified - Other custodial (current) drug therapy INPATIENT VISIT TRACKING (12 MO.) 01/09/2020 04:[address] [facility] [place] TYPE: Observation COMPLAINT: - COPD EXACERBATION DIAGNOSES: - Unspecified mood [affective] disorder - Other custodial (current) drug therapy - Allergy status to other drugs, medicaments and biological substances - Old myocardial infarction - Aortic aneurysm of unspecified site, without rupture - Allergy status to other antibiotic agents - Chronic obstructive pulmonary disease with (acute) exacerbation - Shortness of breath - Essential (primary) hypertension - Dependence on supplemental oxygen - Contact with and (suspected) exposure to other viral communicable diseases - FPC (current) use of aspirin - Allergy status to penicillin - Atherosclerotic heart disease of [place] coronary artery without angina pectoris - Gastro-esophageal reflux disease without esophagitis - Chronic respiratory failure with hypoxia [email or web address]
--- NOTE | 2020-01-29 14:05 | EKG ---
[facility] [address] [facility] [place], [place] [address] Signed Normal sinus rhythm Normal ECG When compared with ECG of 20-DEC-2019 14:08, No significant change was found Confirmed by AKIRA BLACKWELL MD ([id number]) on 01/29/2020 2:05:47 PM Electronically Signed By: AKIRA BLACKWELL MD 01/29/20 1405 PATIENT NAME: DANYEL NARANJO AURA Electrocardiogram DATE OF : 51 PHYSICIAN: AKIRA BLACKWELL MD REPORT #: [id number] REPORT IS CONFIDENTIAL AND NOT TO BE RELEASED WITHOUT AUTHORIZATION
== END 2020-01-29 02:13 | disposition home or self-care (01) ==
LOC: ED 00:21
DX: K30 Functional dyspepsia (principal); J44.9 Chronic obstructive pulmonary disease, unspecified; I10 Essential (primary) hypertension; Z87.891 Personal history of nicotine dependence; Z88.0 Allergy status to penicillin; Z88.8 Allergy status to other drugs, medicaments and biological substances; Z88.1 Allergy status to other antibiotic agents; Z79.899 Other long term (current) drug therapy; Z79.52 Long term (current) use of systemic steroids
CPT/HCPCS: 71045; 80053; 83735; 84484; 85025; 93005; 93010; 99285-25

== ENCOUNTER 2020-07-24 12:57 | Emergency (ER) | payer MEDICARE, MEDICAID ==
--- OUTSIDE RECORDS SUMMARY | 2020-07-24 12:58 | XMS ---
PreManage Notification: DANYEL NARANJO Security Technical Support Consultant Events No recent Security Events currently on file CRITERIA MET - Group Notification - [facility] - Has Care Guidelines CARE PROVIDERS BRONSON HARDWICK Internal Medicine 12/10/2019-Current PHONE: [phone] [facility] has no Care Guidelines for this patient. Care History Medical/Surgical 01/10/2020 [facility] On 01/08/2020 patient contacted clinic to ask PCP Dr. Hardwick if she could turn up oxygen as she was having a hard time breathing; Dr. Hardwick agreed and would evaluate her and oxygen level on 01/17/2020. 12/21/2019 [facility] Patient had scheduled follow up today with PCP Dr. Hardwick, but due to shortness of breathe patient felt the need to come to ED. Abdominal CT from showed remarkable findings on lung.\T\nbsp; Patient stated she will do a 30 day follow up for this event with Dr. Hardwick. 08/25/2017 [facility] - PATIENT HAS PCP FOLLOW UP APT ON 01/30/[address] HARDWICK. - Patient is currently established with [facility]. If patient is seen in the ED during business hours. Please contact CHWs at [facility] at Ext [phone]. Care Recommendation: This patient has had 5 or more Emergency Department visits in the last 12 months.\T\nbsp; Patient requires education on the scope and purpose of the ED as an acute care provider not a Primary Care Provider and should not be utilized for chronic conditions.\T\nbsp; If patient returns to ED please contact Community Health Worker Yanira at [phone]. These are guidelines and the provider should exercise clinical judgment when providing care. E.D. VISIT COUNT (12 MO.) 6 Y[facility] Hoyos TOTAL 6 NOTE: Visits indicate total known visits. ED/C VISIT TRACKING (12 MO.) 07/24/2020 12:57 [facility] [place] TYPE: Emergency COMPLAINT: - ANXIETY 01/29/2020 00:21 [facility] [place] TYPE: Emergency COMPLAINT: - CHEST PAIN DIAGNOSES: - Allergy status to penicillin - Chest pain, unspecified - Essential (primary) hypertension - Personal history of nicotine dependence - Allergy status to other drugs, medicaments and biological substances - Functional dyspepsia - Allergy status to other antibiotic agents - Chronic obstructive pulmonary disease, unspecified - Other correction (current) drug therapy - prison (current) use of systemic steroids 01/09/2020 04:27 [facility] [place] TYPE: Emergency COMPLAINT: - SHORTNESS OF BREATH 12/20/2019 13:59 [facility] [place] TYPE: Emergency COMPLAINT: - SOB DIAGNOSES: - Contact with and (suspected) exposure to other viral communicable diseases - Personal history of nicotine dependence - prison (current) use of aspirin - Shortness of breath - Other correction (current) drug therapy - Allergy status to other drugs, medicaments and biological substances - Allergy status to other antibiotic agents - Chronic obstructive pulmonary disease with (acute) exacerbation - Allergy status to penicillin 12/07/2019 06:14 [facility] [place] TYPE: Emergency COMPLAINT: - ABD PAIN DIAGNOSES: - Allergy status to penicillin - Personal history of nicotine dependence - Other correction (current) drug therapy - prison (current) use of aspirin - Right upper [...] - Chronic obstructive pulmonary disease, unspecified - intermodal truck driver (current) use of aspirin - Allergy status to penicillin - Allergy status to other drugs, medicaments and biological substances - Other nonspecific abnormal finding of lung field - Other correction (current) drug therapy - Right upper quadrant pain - Allergy status to other antibiotic agents - Personal history of nicotine dependence INPATIENT VISIT TRACKING (12 MO.) 01/09/2020 04:28 [facility] [place] TYPE: Observation COMPLAINT: - COPD EXACERBATION DIAGNOSES: - Unspecified mood [affective] disorder - Other remote computer terminal operator (current) drug therapy - Allergy status to [...] exposure to other viral communicable diseases - prison (current) use of aspirin - Allergy status to penicillin - Atherosclerotic heart disease of [place] coronary artery without angina pectoris - Gastro-esophageal reflux disease without esophagitis - Chronic respiratory failure with hypoxia [email or web address]
[2020-07-24] MEDS ORDERED: XANAX0.25 MG PO (14:57)
--- NOTE | 2020-07-25 11:39 | EKG ---
[facility] [address] [facility] [address] [facility] [place], [place] [address] Signed Sinus bradycardia Otherwise normal ECG When compared with ECG of 29-JAN-2020 00:28, No significant change was found Confirmed by ANITA SAM DO ([id number]) on 07/25/2020 11:39:44 AM Electronically Signed By: ANITA SAM DO 07/25/20 1139 PATIENT NAME: DANYEL NARANJO AURA Electrocardiogram DATE OF : 51 PHYSICIAN: ANITA SAM DO REPORT #: [id number] REPORT IS CONFIDENTIAL AND NOT TO BE RELEASED WITHOUT AUTHORIZATION
== END 2020-07-24 15:09 | disposition home or self-care (01) ==
LOC: ED 12:57
DX: F41.9 Anxiety disorder, unspecified (principal); J44.9 Chronic obstructive pulmonary disease, unspecified; I10 Essential (primary) hypertension; Z87.891 Personal history of nicotine dependence; Z88.0 Allergy status to penicillin; Z88.8 Allergy status to other drugs, medicaments and biological substances; Z88.1 Allergy status to other antibiotic agents; Z79.899 Other long term (current) drug therapy; Z79.52 Long term (current) use of systemic steroids; Z79.82 Long term (current) use of aspirin
CPT/HCPCS: 71045; 80053; 84484; 85025; 93005; 93010; 99284-25

== ENCOUNTER 2020-08-04 12:40 | Emergency (ER) | payer MEDICARE, MEDICAID ==
[~2020-08-04] VITALS: Ht 165.1 cm; Wt 69.8 kg
[~2020-08-04 12:40] MED LIST changes: +XANAX0.25 MG PO
--- OUTSIDE RECORDS SUMMARY | 2020-08-04 12:46 | XMS ---
PreManage Notification: DANYEL NARANJO Security Academic Interventionist Events No recent Security Events currently on file CRITERIA MET - Group Notification - [facility] - Has Care Guidelines - [facility] - 2 Visits in 30 Days CARE PROVIDERS BRONSON HARDWICK Internal Medicine 12/10/2019-Current PHONE: [phone] [facility] has no Care Guidelines for this patient. Care History Medical/Surgical 01/10/2020 [facility] On 01/08/2020 patient contacted clinic to ask PCP Dr. Hardwick if she could turn up oxygen as she was having a hard time breathing; Dr. Hardwick agreed and would evaluate her and oxygen level on 01/17/2020. 12/21/2019 [facility] Patient had scheduled follow up today with PCP Dr. Hardwick, but due to shortness of breathe patient felt the need to come to ED. Abdominal CT from showed remarkable findings on lung.\T\nbsp; Patient stated she will do a 30 day follow up for this event with Dr. Hardwick. 08/25/2017 [facility] - PATIENT HAS PCP FOLLOW UP APT ON 01/30/[address] HARDWICK. - Patient is currently established with [facility]. If patient is seen in the ED during business hours. Please contact CHWs at [facility] at Ext [phone]. Care Recommendation: This patient has had 5 or more Emergency Department visits in the last 12 months.\T\nbsp; Patient requires education on the scope and purpose of the ED as an acute care provider not a Primary Care Provider and should not be utilized for chronic conditions.\T\nbsp; If patient returns to ED please contact Community Health WorkerYanira at [phone]. These are guidelines and the provider should exercise clinical judgment when providing care. E.D. VISIT COUNT (12 MO.) 7 YOVANNY Hoyos TOTAL 7 NOTE: Visits indicate total known visits. ED/C VISIT TRACKING (12 MO.) 08/04/2020 12:41 [facility] [place] TYPE: Emergency COMPLAINT: - NAUSEA VOMITING 07/24/2020 12:57 [facility] [place] TYPE: Emergency COMPLAINT: - ANXIETY DIAGNOSES: - Chronic obstructive pulmonary disease, unspecified - Anxiety disorder, unspecified - termination clerk (current) use of systemic steroids - Personal history of nicotine dependence - termination clerk (current) use of aspirin - Allergy status to penicillin - Allergy status to other antibiotic agents - Other terminologist (current) drug therapy - Allergy status to other drugs, medicaments and biological substances - Essential (primary) hypertension 01/29/2020 00:21 [facility] [place] TYPE: Emergency COMPLAINT: - CHEST PAIN DIAGNOSES: - Allergy status to penicillin - Chest pain, unspecified - Essential (primary) hypertension - Personal history of nicotine dependence - Allergy status to other drugs, medicaments and biological substances - Functional dyspepsia - Allergy status to other antibiotic agents - Chronic obstructive pulmonary disease, unspecified - Other terminologist (current) drug therapy - FPC (current) use of systemic steroids 01/09/2020 04:27 [facility] [place] TYPE: Emergency COMPLAINT: - SHORTNESS OF BREATH 12/20/2019 13:59 [facility] [place] TYPE: Emergency COMPLAINT: - SOB DIAGNOSES: - Contact with and (suspected) exposure to other viral communicable diseases - Personal history of nicotine dependence - termination clerk (current) use of aspirin - Shortness of breath - Other terminologist (current) drug therapy - Allergy status to [...] health care facility (current) drug therapy - termination clerk (current) use of aspirin - Right upper [...] abnormal finding of lung field - Other terminologist (current) drug therapy - Right upper quadrant pain - Allergy status to other antibiotic agents - Personal history of nicotine dependence INPATIENT VISIT TRACKING (12 MO.) 01/09/2020 04:28 [facility] [place] TYPE: Observation COMPLAINT: - COPD EXACERBATION DIAGNOSES: - Unspecified mood [affective] disorder - Other [place] [facility] (current[facility] [...] to penicillin - Atherosclerotic heart disease of [place] coronary artery without angina pectoris - Gastro-esophageal reflux disease without esophagitis - Chronic respiratory failure with hypoxia [email or web address]
[2020-08-04] MEDS ORDERED: SERTRALINE HCL50 MG PO (13:02)
[2020-08-04] MEDS ORDERED: ONDANSETRON ODT8 MG PO (13:02)
[2020-08-04] MEDS ORDERED: HYDROCORTISONE454 GM TOP (13:03)
[2020-08-04] MEDS ORDERED: KETOCONAZOLE15 GM TOP (13:03)
--- NOTE | 2020-08-05 09:37 | EKG ---
[facility] [address] [place] [address] Signed Normal sinus rhythm Normal ECG When compared with ECG of 24-JUL-2020 13:30, Nonspecific T wave abnormality now evident in Anterior leads Confirmed by ANDREE VERAS MD ([id number]) on 08/05/2020 9:36:57 AM Electronically Signed By: ANDREE VERAS MD 08/05/20 0937 PATIENT NAME: MARCELLADANYEL Electrocardiogram DATE OF : 51 PHYSICIAN: ANDREE VERAS MD REPORT #: [id number] REPORT IS CONFIDENTIAL AND NOT TO BE RELEASED WITHOUT AUTHORIZATION
== END 2020-08-04 16:24 | disposition home or self-care (01) ==
LOC: ED 12:40
DX: R10.13 Epigastric pain (principal); R11.2 Nausea with vomiting, unspecified; J44.9 Chronic obstructive pulmonary disease, unspecified; I10 Essential (primary) hypertension; Z88.0 Allergy status to penicillin; Z88.8 Allergy status to other drugs, medicaments and biological substances; Z88.1 Allergy status to other antibiotic agents; Z79.899 Other long term (current) drug therapy; Z79.82 Long term (current) use of aspirin
CPT/HCPCS: 74177; 80053; 81001; 83690; 84484; 85025; 93005; 93010; 99284-25; Q9967

== ENCOUNTER 2021-05-01 09:07 | Emergency (ER) | payer MEDICARE, MEDICAID ==
[~2021-05-01] VITALS: Ht 165.1 cm; Wt 68.0 kg
[~2021-05-01 09:07] MED LIST changes: +HYDROCORTISONE454 GM TOP; +KETOCONAZOLE15 GM TOP; +ONDANSETRON ODT8 MG PO; +SERTRALINE HCL50 MG PO
--- OUTSIDE RECORDS SUMMARY | 2021-05-01 09:10 | XMS ---
PreManage Notification: DANYEL NARANJO Security Animal Geneticist Events No recent Security Events currently on file CRITERIA MET - [facility] - Has Care Guidelines - PDMP - Group Notification CARE PROVIDERS BRONSON HARDWICK Internal Medicine 12/10/2019-Current PHONE: Unknown [facility] Current PHONE: [phone] [facility] has no Care Guidelines for this patient. Care History Medical/Surgical 01/10/2020 [facility] On 01/08/2020 patient contacted clinic to ask PCP Dr. Hradwick if she could turn up oxygen as she was having a hard time breathing; Dr. Hardwick agreed and would evaluate her and oxygen level on 01/17/2020. 12/21/2019 [facility] Patient had scheduled follow up today with PCP Dr. Hardwick, but due to shortness of breathe patient felt the need to come to ED. Abdominal CT from showed remarkable findings on lung.\T\nbsp; Patient stated she will do a 30 day follow up for this event with Dr. Hardwick. 08/25/2017 [facility] - PATIENT HAS PCP FOLLOW UP APT ON 01/30/[address] AHRDWICK. - Patient is currently established with [facility]. If patient is seen in the ED during business hours. Please contact CHWs at [facility] at Ext [phone]. Care Recommendation: This patient has had 5 or more Emergency Department visits in the last 12 months.\T\nbsp; Patient requires education on the scope and purpose of the ED as an acute care provider not a Primary Care Provider and should not be utilized for chronic conditions.\T\nbsp; If patient returns to ED please contact Community Health WorkerYanira at [phone]. These are guidelines and the provider should exercise clinical judgment when providing care. E.D. VISIT COUNT (12 MO.) 3 [facility] TOTAL 3 NOTE: Visits indicate total known visits. ED/UCC VISIT TRACKING (12 MO.) 05/01/2021 09:08 [facility] [place] TYPE: Emergency COMPLAINT: - CHEST PAIN, DIARRHEA 08/04/2020 12:41 [facility] [place] TYPE: Emergency COMPLAINT: - NAUSEA VOMITING DIAGNOSES: - Epigastric pain - Allergy status to penicillin - Other assisted (current) drug therapy - anodic operator (current) use of aspirin - Chronic obstructive pulmonary disease, unspecified - Essential (primary) hypertension - Allergy status to other antibiotic agents - Nausea with vomiting, unspecified - Nausea with vomiting, unspecified - Allergy status to other drugs, medicaments and biological substances - Vomiting, unspecified 07/24/2020 12:57 [facility] [place] TYPE: Emergency COMPLAINT: - ANXIETY DIAGNOSES: - Chronic obstructive pulmonary disease, unspecified - Anxiety disorder, unspecified - USP (current) use of systemic steroids - Personal history of nicotine dependence - anodic operator (current) use of aspirin - Allergy status to penicillin - Allergy status to other antibiotic agents - Other cardiopulmonary specialist (current) drug therapy - Allergy status to other drugs, medicaments and biological substances - Essential (primary) hypertension INPATIENT VISIT TRACKING (12 MO.) No inpatient visits to display in this time frame [email or web address]
[2021-05-01] MEDS ORDERED: OXYBUTYNIN CHLOR5 MG PO (09:25)
[2021-05-01] MEDS ORDERED: HYDROCODON-ACE1 EA10 PO (17:27)
--- NOTE | 2021-05-05 13:41 | EKG ---
[facility] [address] [place] [address] Signed Normal sinus rhythm Normal ECG When compared with ECG of 04-AUG-2020 13:38, Nonspecific T wave abnormality no longer evident in Anterior leads Confirmed by ANDREE VERAS MD ([id number]) on 05/05/2021 1:41:31 PM Electronically Signed By: ANDREE VERAS MD 05/05/21 1341 PATIENT NAME: MARCELLADANYEL Electrocardiogram DATE OF : 51 PHYSICIAN: ANDREE VERAS MD REPORT #: [id number] REPORT IS CONFIDENTIAL AND NOT TO BE RELEASED WITHOUT AUTHORIZATION
== END 2021-05-01 17:39 | disposition home or self-care (01) ==
LOC: ED 09:07
DX: K21.9 Gastro-esophageal reflux disease without esophagitis (principal); I72.8 Aneurysm of other specified arteries; R07.2 Precordial pain; J44.9 Chronic obstructive pulmonary disease, unspecified; I10 Essential (primary) hypertension; Z87.891 Personal history of nicotine dependence; Z88.0 Allergy status to penicillin; Z88.8 Allergy status to other drugs, medicaments and biological substances; Z88.1 Allergy status to other antibiotic agents; Z79.899 Other long term (current) drug therapy; Z79.82 Long term (current) use of aspirin; Z20.822 Contact with and (suspected) exposure to COVID-19
CPT/HCPCS: 36415; 71045; 71275; 74174; 80053; 83690; 84484; 85025; 93005; 93010; 96375; 99285-25; C9113; C9803; J1885; J2405; Q9967; U0003

== ENCOUNTER 2022-06-15 19:34 | Emergency (ER) | payer MEDICARE, OTHER ==
[~2022-06-15] VITALS: Ht 165.1 cm; Wt 79.4 kg
[~2022-06-15 19:34] MED LIST changes: +HYDROCODON-ACE1 EA10 PO
--- OUTSIDE RECORDS SUMMARY | 2022-06-15 19:36 | XMS ---
PreManage Notification: DANYEL NARANJO Security Fuel Island Attendant Events No recent Security Events currently on file CRITERIA MET - PDMP - Group Notification CARE PROVIDERS BRONSON HARDWICK Internal Medicine 12/10/2019-Current PHONE: Unknown [facility] Current PHONE: Unknown [facility] has no Care Guidelines for this [...] for this event with Dr. Hardwick. 08/25/2017 [facility] - PATIENT HAS PCP FOLLOW UP APT ON 01/30/[address] HARDWICK. - Patient is currently established with [facility]. If patient is seen in the ED during business hours. Please contact CHWs at [facility] at Fws [phone]. Care Recommendation: This patient has had 5 or more Emergency Department visits in the last 12 months.\T\nbsp; Patient requires education on the scope and purpose of the ED as an acute care provider not a Primary Care Provider and should not be utilized for chronic conditions.\T\nbsp; If patient returns to ED please contact Community Health WorkerYanira at [phone]. These are guidelines and the provider should exercise clinical judgment when providing care. E.D. VISIT COUNT (12 MO.) 1 [facility] TOTAL 1 NOTE: Visits indicate total known visits. ED/UCC VISIT TRACKING (12 MO.) 06/15/2022 19:34 [facility] [place] TYPE: Emergency COMPLAINT: - CHEST PAIN INPATIENT VISIT TRACKING (12 MO.) No inpatient visits to display in this time frame [email or web address]
[2022-06-15] MEDS ORDERED: ANORO ELLIPTA1 EACH INH (19:56)
[2022-06-15] MEDS ORDERED: QUETIAPINE FUM100 MG PO (19:57)
[2022-06-15] MEDS ORDERED: CARAFATE1 GM PO (20:57)
[2022-06-15] MEDS ORDERED: PAXLOVID 300-11 EACH PO (20:57)
--- NOTE | 2022-06-16 20:09 | EKG ---
[facility] [address] [place] [address] Signed Normal sinus rhythm Normal ECG When compared with ECG of 01-MAY-2021 09:12, No significant change was found Confirmed by Dave Abdi MD () on 06/16/2022 8:09:27 PM Electronically Signed By: DAVE ABDI MD 06/16/222008 PATIENT NAME: DANYEL NARANJO AURA Electrocardiogram DATE OF : 51 PHYSICIAN: DAVE ABDI MD REPORT #: [id number] REPORT IS CONFIDENTIAL AND NOT TO BE RELEASED WITHOUT AUTHORIZATION
== END 2022-06-15 21:35 | disposition home or self-care (01) ==
LOC: ED 19:34
DX: U07.1 COVID-19 (principal); I10 Essential (primary) hypertension; J44.9 Chronic obstructive pulmonary disease, unspecified; Z87.891 Personal history of nicotine dependence; Z88.0 Allergy status to penicillin; Z88.1 Allergy status to other antibiotic agents; Z79.899 Other long term (current) drug therapy
CPT/HCPCS: 36415; 71275; 74174; 80053; 83690; 83735; 83880; 84484; 85025; 85379; 85610; 87502; 93005; 93010; 99285-25; A9270; C9803; J2270; Q9967; U0003